=== PATIENT | female | born 1960 | race Caucasian/White ===

== ENCOUNTER 2021-06-01 17:07 | Emergency (ER) | payer OTHER ==
--- OUTSIDE RECORDS SUMMARY | 2021-06-01 17:16 | XMS REPORT | Continuity of Care Document ---
:1960 Author Organization [facility] t Address [address] [place] [address] Care Team Providers Name Role Phone JERRI ELKINS Primary Care Physician Unavailable JOSEPH Attending Clinician Unavailable PING Attending Clinician Unavailable Devendra VIERA Attending Clinician Unavailable MAMI Attending Clinician Unavailable Singer DAVIDSON Attending Clinician John AMIN Attending Clinician Mami AMIN Attending Clinician Marita AMIN, Mookie Attending Clinician Joseph AMIN Attending Clinician Francesca AMIN Attending Clinician Mick Bai MD Attending Clinician Doctor Unassigned, Name Attending Clinician Unavailable MARI Attending Clinician Unavailable Mari AMIN Attending Clinician Only, Test Attending Clinician Unavailable Ping AMIN Attending Clinician QING WAITE Attending Clinician Unavailable MAMI Admitting Clinician Unavailable Mami AMIN Admitting Clinician JOSEPH Admitting Clinician Unavailable Joseph AMIN Admitting Clinician MARI Admitting Clinician Unavailable Mari AMIN Admitting Clinician CHOI Admitting Clinician Unavailable Payers Payer Name Policy Type Policy Number Effective Date Expiration Date S erick [facility] [id number] 2019 HMO 00:00:00 [place]ICAID OF [place] [id number] 2017 00:00:00 Problems Condition Condition Condition Status Onset Resolution Last Treating Co mments Source Name Details Category Date Date Treatment Clinician Date Frequent Frequent Disease Active Unive rs falls falls 4-07 ity of 00:00: [place] 00 Medical Branch Attention Attention Disease Active Uni vers to to 3-16 ity of colostomy colostomy [place] Colostomy Colostomy Disease Active Uni vers status status 3-16 ity of 00:00: [place] 00 Medical Branch Stercoral Stercoral Disease Active Overview: Univers ulcer of ulcer of 04-07 Formattin ity of large large 00:00: g of this [place] intestine intestine 00 note Medi landry might be Branch different from the original. Added automatic ally from request for surgery [id number] Colostomy Colostomy Disease Active Overview: Univers in place in place 2 Formattin ity of 00:00: g of this note Medical might be Branch different from the original. Added automatic ally from request for surgery [id number] GIB GIB Disease Active Univers (gastroint (gastroint 02-15 it y of estinal estinal 00:00: [place] bleeding) bleeding) 00 Medi landry Branch Melena Melena Disease Active Overview: Univer s 02-14 Formattin ity of 00:00: g of this 00 note Medical might be Branch different from the original. Added automatic ally from request for surgery [id number] Parastomal Parastomal Disease Active 2020-02 U nivers hernia hernia 0-19 ity of without without 00:00: [place] obstructio obstructio 00 Me dical n or n or Branch gangrene gangrene Syncope Syncope Disease Active Univers and and 09-15 ity of collapse collapse 00:00: 00 Medical Branch Dyslipidem Dyslipidem Disease Active U nivers ia ia 09-15 ity of 00:00: [place] 00 Medical Branch Sinus Sinus Disease Active Univers pause pause 09-15 ity of status status 00:00: [place] post PPM post PPM 00 Medica l Branch Hypokalemi Hypokalemi Disease Active U nivers a a 8-09 ity of 00:00: [place] 00 Medical Branch Noncomplia Noncomplia Disease Active U scot nce with nce with 4-12 ity of treatment treatment 00:00[place] regimen regimen 00 [place] Acute Acute Disease Active Univers blood loss blood loss 4-07 it y of anemia anemia 00:00: [place] [facility] Perforatio Perforatio Disease Active U scot n of n of 4-06 ity of sigmoid sigmoid 00:00: [place] colon s/p colon s/p 00 Medi landry Corby's Corby's Br anch on on 05/13/2020 05/13/2020 Therapeuti Therapeuti Disease Active U scot c c 4-06 ity of opioid-ind opioid-ind 00:00[place] uced uced 00 Medical constipati constipati Br anch on (OIC) on (OIC) Chronic, Chronic, Disease Active Overview: Un berta continuous continuous 4-06 Formattin ity of use of use of 00:00: g of this [place] opioids opioids 00 note Medical might be Branch different from the original. 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 2-10 ity of 00:00: [place] [facility] History of History of Disease Active U scot systemic systemic 2-10 ity of lupus lupus 00:00: [place] erythemato erythemato 00 Me dical liliya (SLE) liliya (SLE) Bran ch History of History of Disease Active 2018-02 U scot seizure seizure 2-05 ity of 00:00: [place] [facility] Mixed Mixed Disease Active Univers hyperlipid hyperlipid 9-20 it y of emia emia 00:00: [place] [facility] Prediabete Prediabete Disease Active U anahiers s s 4-10 ity of 00:00: [place] [facility] Kidney Kidney Disease Active Overview: Univer s lesion, lesion, 3-25 Formattin ity o f [place] 00:00: g of this [place] right right 00 note Medical might be Branch different from the original. likely angiolipo ma per Radiology Hyperthyro Hyperthyro Disease Active 2017-02 U nivers idism idism 2-19 ity of 00:00: [place] 00 Medical Branch Obesity Obesity Disease Active 2017-02 Univers (BMI (BMI 2-17 ity of 30-39.9) 30-39.9) 00:00: [place] [facility] Vitamin D Vitamin D Disease Active Uni vers deficiency deficiency 10-27 it y of 00:00: [place] [facility] Chronic Chronic Disease Active Univers insomnia insomnia 10-16 ity of 00:00: Medical Branch Chronic Chronic Disease Active Univers migraine migraine 10-16 ity of without without 00:00: [place] aura aura 00 Medical without without Branch status status migrainosu migrainosu s, not s, not intractabl intractabl e e Neuropathy Neuropathy Disease Active U nivers 10-16 ity of 00:00: [place] [facility] Pacemaker Pacemaker Disease Active Uni vers 10-16 ity of 00:00: [place] 00 Medical Branch Essential Essential Disease Active Uni vers hypertensi hypertensi 10-16 it y of on on 00:00: Medical Branch History of History of Disease Active U nivers hepatitis hepatitis 10-16 ity of C C 00:00: [place] 00 Medical Branch PUD PUD Disease Active Univers (peptic (peptic 10-16 ity of ulcer ulcer 00:00: [place] disease) disease) 00 Medica l Branch Gastroesop Gastroesop Disease Active U nivers hageal hageal 10-16 ity of reflux reflux 00:00: [place] disease, disease, 00 Medica l esophagiti esophagiti Br anch s presence s presence not not specified specified History of History of Disease Active U anahiers urinary urinary 10-16 ity of tract tract 00:00: [place] surgery surgery 00 Medical Branch Fibromyalg Fibromyalg Disease Active U anahiers ia ia 10-16 ity of 00:00: [place] 00 Medical Branch Parasomnia Parasomnia Disease Active U nivers 10-16 ity of 00:00: [place] 00 Medical Branch Anxiety Anxiety Disease Active Overview: Univ ers 1-14 Formattin ity of 00:00: g of this note Medical might be Branch different from the original. Formattin g of this note might be different from the original. H/o cx pain Vitamin Vitamin Disease Active Univers B12 B12 -14 ity of deficiency deficiency 00:00: [place] [facility] [place] IBS IBS Disease Active 2007-02 Univers (irritable (irritable 2-04 it y of bowel bowel 00:00: [place] syndrome) syndrome) 00 [facility] Branch Visceral Visceral Disease Active 2007-02 Unive rs hyperalges hyperalges 2-04 it y of ia ia 00:00: [place] [facility] Branch Allergic Allergic Disease Active Unive rs rhinitis rhinitis ity of [facility] Cyst of Cyst of Disease Active Univers left left ity of kidney kidney [facility] Allergies, Adverse Reactions, Alerts Allergy Allergy Status Severity Reaction(s) Onset Inactive Treating Comm ents Source Name Type Date Date Clinician GABAPENT DRUG Active Palpitations Un berta IN INGREDI 3-16 ity of 00:00: [place] [facility] Gabapent Drug Active Palpitations Un berta in Allergy 3-16 ity of 00:00: [place] 00 Medical Branch LOSARTAN DRUG Active COUGH 2020-0 Univers INGREDI 07-03 ity of 00:00: [place] 00 Medical Branch Losartan Propensi Active Cough 2020-0 Univer s ty to 5 ity of adverse 00:00: [place] reaction 00 Medical s Branch LISINOPR DRUG Active COUGH 2018- Univers IL INGREDI 10-16 ity of 00:00: [place] [facility] Lisinopr Propensi Active Cough 2019-0 Univer s il ty to 10-16 ity of adverse 00:00: [place] reaction 00 Medical s Branch ADHESIVE Drug Active Other-Cmnt Univ ers Class 8-22 ity of 00:00: [place] 00 Medical Branch BACLOFEN DRUG Active Hallucinates Un berta INGREDI 8- ity of 00:00: [place] 00 Medical Branch CIPROFLO DRUG Active Hives 2017- Univers XACIN INGREDI 8-22 ity of 00:00: [place] 00 Medical Branch IODINE Drug Active Hives Univers AND Class 8-22 ity of IODIDE 00:00: [place] CONTAINI 00 Medical Branch PRODUCTS DULOXETI DRUG Active Other-Cmnt 2018-0 Univ ers NE INGREDI 09-28 ity of 00:00: [place] 00 Medical Branch DIVALPRO DRUG Active Hives 2018-0 Univers EX INGREDI 09-28 ity of SODIUM 00:00: [place] 00 Medical Branch GABAPENT DRUG Active Unknown-Cmnt 0 Un berta IN INGREDI 09-28 ity of ENACARBI 00:00: [place] L 00 Medical Branch NITROFUR DRUG Active Hives 2018-0 Univers ANTOIN 09-28 ity of MONOHYD/ 00:00: [place] M-CRYST 00 Medical Branch ISOMETH- DRUG Active Hives 2017-0 Univers DICHLORA 09-28 ity of L-ACETAM 00:00: [place] INOPHN 00 Medical Branch MORPHINE DRUG Active Hives 2017-0 Univers SULFATE INGREDI 09-28 ity of 00:00: [place] 00 Medical Branch METHOCAR DRUG Active Diarrhea 2018-0 Univer s BAMOL INGREDI 09-28 ity of 00:00: [place] 00 Medical Branch SEPTRA DRUG Active Hives 2017-0 Univers I.V. 09-28 ity of 00:00: [place] 00 Medical Branch DIATRIZO DRUG Active Hives 2018-0 Univers ATE AND 09-28 ity of IODIPAMI 00:00: [place] DE AMBER 00 Medical Branch TOPIRAMA DRUG Active Other-Cmnt 2017-0 Univ ers TE INGREDI 09-28 ity of 00:00: [place] 00 Medical Branch KETOROLA DRUG Active Hives 2018-0 Univers C INGREDI 09-28 ity of TROMETHA 00:00: [place] MINE 00 Medical Branch TRAMADOL DRUG Active Other-Cmnt 2018-0 Univ ers INGREDI 09-28 ity of 00:00: [place] 00 Medical Branch Adhesive Propensi Active Other - See 2018-0 redness Univers ty to comments 09-28 ity of adverse 00:00: [place] reaction 00 Medical s Branch Baclofen Propensi Active Hallucinatio 2018-0 Univers ty to ns 09-28 ity of adverse 00:00: [place] reaction 00 Medical s Branch Ciproflo Propensi Active Hives 2018-0 Univer s xacin ty to 09-28 ity of adverse 00:00: [place] reaction 00 Medical s Branch Iodine Propensi Active Hives 2018-0 Univers And ty to 09-28 ity of Iodide adverse 00:00: [place] Containi reaction 00 Medica l ng s Branch Products Duloxeti Propensi Active Other - See Transami n Univers ne ty to comments 8 itis ity of adverse 00:00: [place] reaction 00 Medical s Branch Divalpro Propensi Active Hives 2018 Univer s ex ty to 8 ity of Sodium adverse 00:00: [place] reaction 00 Medical s Branch Gabapent Propensi Active Unknown - Uni vers in ty to See comments 8 ity of Enacarbi adverse 00:00: [place] l reaction 00 Medical s Branch Nitrofur Propensi Active Hives Univer s antoin ty to 8 ity of Monohyd/ adverse 00:00: [place] M-Cryst reaction 00 Medical s Branch Isometh- Propensi Active Shortness of Univers Dichlora ty to Breath 8 ity of l-Acetam adverse 00:00: [place] inophn reaction 00 Medical s Branch Morphine Propensi Active Hives Univer s Sulfate ty to 8 ity of adverse 00:00: [place] reaction 00 Medical s Branch Methocar Propensi Active Diarrhea Univ ers bamol ty to 8 ity of adverse 00:00: [place] reaction 00 Medical s Branch Septra Propensi Active Shortness of Un berta I.V. ty to Breath 8 ity of adverse 00:00: [place] reaction 00 Medical s Branch Diatrizo Propensi Active Hives Univer s ate And ty to 8 ity of Iodipami adverse 00:00: [place] de Amber reaction 00 Medical s Branch Topirama Propensi Active Other - See Tingling , Univers te ty to comments 09-28 overwhelm ity o f adverse 00:00: ing [place] reaction 00 feeliing Medica l s Branch Ketorola Propensi Active Other - See Restless Univers c ty to comments 8 legs ity of Trometha adverse 00:00: [place] mine reaction 00 Medical s Branch Tramadol Propensi Active Other - See shaky U nivers ty to comments 8 legs ity of adverse 00:00: [place] reaction 00 Medical s Branch Social History Social Habit Start Date Stop Date Quantity Comments Source History [facility] University o f Alcohol Frequency [place] M edical Branch History SDAR University o f Alcohol Std [place] Medical Drinks Branch History SDAR University o f Alcohol Binge [place] Medic al Branch Exposure to Not sure University of SARS-CoV-2 [facility] (event) Branch Alcohol intake 2021-05-14 2021-05-14 Current drinker Unive rsity of 00:00:00 00:00:00 of alcohol [facility] (finding) Branch Education 2020-01-11 2020-01-11 16 University of 00:00:00 00:00:00 [facility] Alcohol Comment 2018-10-10 2018-10-10 Rare occasions Unive rsity of 00:00:00 00:00:00 [facility] Tobacco use and 2017-09-28 2017-09-28 Never used Universit y of exposure 00:00:00 00:00:00 [facility] [birth year] At [birth year] Universit y of 00:00:00 00:00:00 [facility] Smoking Status Start Date Stop Date Source Never smoker [facility] Medications Ordered Filled Start Stop Current Ordering Indication Dosage Frequency Signature Comments Components Source Medication Medication Date Date Medication? Clinician (SIG) Name Name cetirizine Yes 10mg Take 10 mg U nivers 10 mg 4-12 by mouth ity of tablet 15:55: daily. [address] propranoloL Yes 40mg Take 40 mg Univers 40 mg 4-12 by mouth 3 ity of tablet 15:55: (three) [place] [id number] times Medical daily. Branch pyridoxine, Yes 25mg Take 25 mg Univers VITAMIN 4-12 by mouth ity of B-6, 25 mg 15:55: daily. [address] cetirizine Yes 10mg Take 10 mg U nivers 10 mg 4-12 by mouth ity of tablet 15:55: daily. [address] propranoloL Yes 40mg Take 40 mg Univers 40 mg 4-12 by mouth 3 ity of tablet 15:55: (three) [place] [id number] times Medical daily. Branch pyridoxine, Yes 25mg Take 25 mg Univers VITAMIN 4-12 by mouth ity of B-6, 25 mg 15:55: daily. [address] BIOTIN ORAL 2021- No 1{tbl} Take 1 U nivers 05-19 tablet by ity of 14:31: 00:00 mouth [place] 09 :00 daily. Medical Branch triamcinolo 2021- No Use in Un berta ne 05-19 each ity of acetonide 14:31: 00:00 nostril. Mehdi as (NASACORT 09 :00 Medical AQ NASAL) Branch triamterene 2021- No 1{capsu Take 1 Univers -hydrochlor 05-19 le} capsule by i ty of othiazide 14:31: 00:00 mouth [place] 37.5-25 mg 09 :00 every Medical per capsule morning. Bran ch cyanocobala 2021- No Inject as Univers min, 05-19 directed ity of vitamin 14:31: 00:00 weekly. [place] B-12, 1,000 09 :00 Medical mcg/mL Branch injection amitriptyli 2021- No 25mg Take 25 mg Univers ne 25 mg 05-19 by mouth ity of tablet 14:31: 00:00 at [place] 09 :00 bedtime. Medical Takes Branch total of 125mg aspirin 81 2021- No 81mg Take 81 mg Univers mg chewable 05-19 by mouth ity of tablet 14:31: 00:00 daily. [place] 09 :00 Medical Branch ferrous 2021- Yes [id number] 325mg Take 1 U nivers sulfate 325 05-19 tablet by it y of mg (65 mg 00:00: 04:59 mouth 2 [place] iron) 00 :00 (two) Medical tablet times Branch daily for 30 days. ferrous 2021- Yes [id number] 325mg Take 1 U nivers sulfate 325 05-19 tablet by it y of mg (65 mg 00:00: 04:59 mouth 2 [place] iron) 00 :00 (two) Medical tablet times Branch daily for 30 days. ferrous Yes 325mg 325 mg, Univer s sulfate 05-18 Oral, TID ity of tablet 325 22:00: MEALS, [place] mg 00 First dose Medical on Mon Branch 05/18/21 at 1700, Until Discontinu ed, Routine iron 2022-0 2022- No 300mg 300 mg, IV Unive rs sucrose 4-10 04-11 Infusion, ity of (VENOFER) 00:30: 13:40 DAILY, [place] 300 mg in 00 :30 Administer Medi landry NaCl 0.9% over 1.5 Branch (NS) 250 mL Hours, infusion First dose on 05/16/21 at 1930 HYDROcodone 2021-0 Yes 1{tbl} 1 tablet, Univers -acetaminop 4-09 Oral, ity of hen (NORCO 15:38: Q6HPRN, [place] 5) 5-325 mg 10 Starting Medi landry tablet 1 on Sat Branch tablet 05/16/21 at 1038, Until Discontinu ed, Routine, Pain (scale 7-10) amitriptyli 2021-0 Yes 100mg 100 mg, Un berta ne (ELAVIL) 4-09 Oral, QHS, it y of tablet 100 02:00: First dose [place] mg 00 on Fri Medical 05/15/21 at Branch 2100, Until Discontinu ed, Routine enoxaparin 0 Yes 40mg 40 mg, Unive rs (LOVENOX) 4- Subcutaneo ity of injection 22:00: [place], DAILY, [place] 40 mg 00 First dose Medical on Tue Branch 05/15/21 at 1700, Until Discontinu ed, Routine acetaminoph 2021-0 Yes 1{tbl} 1 tablet, Univers en-codeine 4-08 Oral, ity of (TYLENOL 17:49: Q6HPRN, [place] #3) 300-30 51 Starting Medic al mg tablet 1 on Tue Branch tablet 05/15/21 at 1249, Until Discontinu ed, Routine, Pain (scale 4-6) pyridoxine 2021-0 Yes 25mg 25 mg, Unive rs (vitamin 4-08 Oral, ity of B6) 14:00: DAILY, [place] (VITAMIN 00 First dose Medic al B6) tablet on Tue Branch 25 mg 05/15/21 at 0900, Until Discontinu ed, Routine omeprazole 2021-0 Yes 20mg 20 mg, Unive rs (PRILOSEC) 4-08 Oral, ity of capsule 20 14:00: DAILY, [place] mg 00 First dose Medical on Fri Branch 05/15/21 at 0900, Until Discontinu ed clopidogreL Yes 75mg 75 mg, Univ ers (PLAVIX) 75 08 Oral, ity of mg tablet 14:00: DAILY, [place] 75 mg 00 First dose Medical on Tue Branch 05/15/21 at 0900, Until Discontinu ed, Routine cetirizine Yes 10mg 10 mg, Unive rs (ZYRTEC) 05-15 Oral, ity of tablet 10 14:00: DAILY, [place] mg 00 First dose Medical on Tue Branch 05/15/21 at 0900, Until Discontinu ed, Routine triamterene 2021- No 1{tbl} 1 tablet, Univers -hydrochlor 05-15 Oral, ity of othiazid 14:00: 13:40 DAILY, [place] (MAXZIDE-25 00 :38 First dose Me dical ) 37.5-25 on Tue Branch mg tablet 1 05/15/21 at tablet 0900, Until Discontinu ed levETIRAcet Yes 1000mg 1,000 mg, Univers am (KEPPRA) 05-15 Oral, BID, it y of tablet 13:00: First dose [place] 1,000 mg 00 on Tue Medical 05/15/21 at Branch 0800, Until Discontinu ed, Routine hydrOXYchlo Yes 200mg 200 mg, Un berta roQUINE 05-15 Oral, BID, ity of (PLAQUENIL) 13:00: First dose [place] tablet 200 00 on Tue Medical mg 05/15/21 at Branch 0800, Until Discontinu ed, Routine
Indicatio n: Rheumatic disorder hydralAZINE Yes 10mg 10 mg, Univ ers (APRESOLINE 05-15 Slow IV ity o f ) injection 11:06: Push, [place] 10 mg 41 Q4HPRN, Medical Starting Branch on Tue05/15/21 at 0606, Until Discontinu ed, Routine, DBP=>10 0; SBP=>160, DBP=>100; SBP=>180<b r>Indicati on: Hypertensi ve Emergency cefTRIAXone 2021- No 1000mg 1,000 mg, Univers (ROCEPHIN) 05-15-11 IV ity of 1,000 mg in 07:15: 21:08 Piggyback, [place] NaCl 0.9% 00 :07 Q24H ABX, Medic al (NS) 50 mL First dose Bra nch MINI-BAG on Tue05/15/21 at 0215, Until Discontinu ed, Administer over 30 Minutes, 50 mL
Reas on for Anti-Infec tive: Empiric Therapy for Suspected Infection< br>Empiric Therapy Site: Urine
D uration of therapy: 7 days propranoloL 0 Yes 40mg 40 mg, Univ ers (INDERAL) 4-08 Oral, TID, ity of tablet 40 05:15: First dose [place] mg 00 on Tue Medical 05/15/21 at Branch 0015, Until Discontinu ed, Routine ondansetron Yes 4mg 4 mg, Slow Univers (ZOFRAN 4-08 IV Push, ity of (PF)) 05:04: Q6HPRN, [place] injection 4 43 Starting Medi landry mg on Tue [place] 05/15/21 at 0004, Until Discontinu ed, Routine, Nausea and Vomiting (N/V) Cyanocobala 2021-0 2021- No Place Univ ers min-Cobamam 4-07 04-07 under the it y of edna (B12) 23:53: 00:00 tongue. [place] 5,000-100 06 :00 Medical mcg Lozg [place] LEVETIRACET 0 Yes TAKE 2 Univ ers AM 500 mg 4-04 TABLETS BY ity of tablet 00:00: MOUTH [place] 00 TWICE Medical DAILY [place] LEVETIRACET 2021-0 Yes TAKE 2 Univ ers AM 500 mg 4-04 TABLETS BY ity of tablet 00:00: MOUTH [place] 00 TWICE Medical DAILY Branch LEVETIRACET 2021-0 Yes TAKE 2 Univ ers AM 500 mg 4-04 TABLETS BY ity of tablet 00:00: MOUTH [place] 00 TWICE Medical DAILY Branch cyanocobala 2021-0 Yes Inject as Univers min, 3-26 directed ity of vitamin 05:49: weekly. [place] B-12, 1,000 01 Medical mcg/mL Branch injection cyanocobala 2021-0 Yes Inject as Univers min, 3-26 directed ity of vitamin 05:49: weekly. [place] B-12, 1,000 01 Medical mcg/mL Branch injection cyanocobala 2021-0 Yes Inject as Univers min, 3-26 directed ity of vitamin 05:49: weekly. [place] B-12, 1,000 01 Medical mcg/mL Branch injection cetirizine Yes 10mg Take 10 mg U nivers 10 mg 3-24 by mouth ity of tablet 17:50: daily. [place] 35 Medical Branch BIOTIN ORAL Yes 1{tbl} Take 1 Un berta 3-24 tablet by ity of 17:50: mouth [place] 35 daily. Medical Branch triamcinolo Yes Use in Uni vers ne 3-24 each ity of acetonide 17:50: nostril. [place] (NASACORT 35 Medical AQ NASAL) Branch Cyanocobala Yes Place Unive rs min-Cobamam 3-24 under the ity of edna (B12) 17:50: tongue. [place] 5,000-100 35 Medical mcg Lozg Branch triamterene Yes 1{capsu Take 1 U nivers -hydrochlor 3-24 le} capsule by it y of othiazide 17:50: mouth [place] 37.5-25 mg 35 every Medical per capsule morning. Bran ch cyanocobala Yes Inject as Univers min, 3-24 directed ity of vitamin 17:50: weekly. [place] B-12, 1,000 35 Medical mcg/mL Branch injection cetirizine Yes 10mg Take 10 mg U nivers 10 mg 3-24 by mouth ity of tablet 17:50: daily. [place] [address] Medical Branch BIOTIN ORAL Yes 1{tbl} Take 1 Un berta 3-24 tablet by ity of 17:50: mouth [place] 35 daily. Medical Branch triamcinolo Yes Use in Uni vers ne 3-24 each ity of acetonide 17:50: nostril. [place] (NASACORT 35 Medical AQ NASAL) Branch Cyanocobala Yes Place Unive rs min-Cobamam 3-24 under the ity of edna (B12) 17:50: tongue. [place] 5,000-100 35 Medical mcg Lozg Branch triamterene Yes 1{capsu Take 1 U nivers -hydrochlor 3-24 le} capsule by it y of othiazide 17:50: mouth [place] 37.5-25 mg 35 every Medical per capsule morning. Bran ch cetirizine Yes 10mg Take 10 mg U nivers 10 mg 3-24 by mouth ity of tablet 17:50: daily. [place] [address] Medical Branch BIOTIN ORAL Yes 1{tbl} Take 1 Un berta 3-24 tablet by ity of 17:50: mouth [place] 35 daily. Medical Branch triamcinolo Yes Use in Uni vers ne 3-24 each ity of acetonide 17:50: nostril. [place] (NASACORT 35 Medical AQ NASAL) Branch Cyanocobala Yes Place Unive rs min-Cobamam 3-24 under the ity of edna (B12) 17:50: tongue. [place] 5,000-100 35 Medical mcg Lozg Branch triamterene Yes 1{capsu Take 1 U nivers -hydrochlor 3-24 le} capsule by it y of othiazide 17:50: mouth [place] 37.5-25 mg 35 every Medical per capsule morning. Bran ch cetirizine Yes 10mg Take 10 mg U nivers 10 mg 3-24 by mouth ity of tablet 17:50: daily. [place] [address] Medical Branch BIOTIN ORAL Yes 1{tbl} Take 1 Un berta 3-24 tablet by ity of 17:50: mouth [place] 35 daily. Medical Branch triamcinolo Yes Use in Uni vers ne 3-24 each ity of acetonide 17:50: nostril. [place] (NASACORT 35 Medical AQ NASAL) Branch Cyanocobala Yes Place Unive rs min-Cobamam 3-24 under the ity of edna (B12) 17:50: tongue. [place] 5,000-100 35 Medical mcg Lozg Branch triamterene Yes 1{capsu Take 1 U nivers -hydrochlor 3-24 le} capsule by it y of othiazide 17:50: mouth [place] 37.5-25 mg 35 every Medical per capsule morning. Bran ch HYDROcodone 2021- No 1{tbl} Take 1 U nivers -acetaminop 3-23 03-23 tablet by it y of hen 10-325 11:26: 00:00 mouth [place] mg tablet 49 :00 every 6 Medical (six) Branch hours as needed (Can take 1 or 2 per doctor's instructio ns). polyethylen 2021- No 17g Take 17 g Univers e glycol 04-29 by mouth ity of 3350 17 11:05: 00:00 daily. [place] gram/dose 17 :00 Medical powder Branch oxyCODONE Yes 10mg 10 mg, Univer s CR 04-29 Oral, ity of (oxyCONTIN 01:00: Q12H, [place] CR) 12 hr 00 First dose Medi landry tablet 10 on Tue Branch mg 04/28/21 at 1999, Until Discontinu ed, Routine
receiving team member approving Restricted medication : LUDMILA TAVARES propranoloL 2021- Yes [id number] 40mg Take 1 Univers 40 mg 04-29-07 tablet by ity of tablet 00:00: 04:59 mouth 2 [place] 00 :00 (two) Medical times Branch daily for 14 days. propranoloL 2021- Yes [id number] 40mg Take 1 Univers 40 mg 04-29-07 tablet by ity of tablet 00:00: 04:59 mouth 2 [place] 00 :00 (two) Medical times Branch daily for 14 days. propranoloL 2021- Yes [id number] 40mg Take 1 Univers 40 mg 3- 04-07 tablet by ity of tablet 00:00: 04:59 mouth 2 [place] 00 :00 (two) Medical times Branch daily for 14 days. propranoloL 2021- Yes [id number] 40mg Take 1 [facility] 40 mg -30 05-07 tablet by ity of tablet 00:00: 04:59 mouth 2 [place] 00 :00 (two) Medical times Branch daily for 14 days. acetaminoph 2021- Yes [id number] 1000mg Take 2 [facility] en 500 mg 04-29 tablets by ity of tablet 00:00: 04:59 mouth [place] 00 :00 every 8 Medical (eight) Branch hours for 7 days. nystatin 2021- Yes [id number] Apply to Univers 100,000 04-29 area(s) 2 ity of unit/gram 00:00: 04:59 (two) [place] cream 00 :00 times Medical daily for Branch 7 days. oxyCODONE 2021- Yes [id number] 10mg Take 1 Unive rs CR 10 mg 12 04-29 tablet by it y of hr tablet 00:00: 04:59 mouth [place] 00 :00 every 12 Medical (twelve) Branch hours for 7 days. Indication s: acute pain oxyCODONE 2021- Yes 4647 10mg Take 1 Unive rs 10 mg Tab 04-29 tablet by ity of 00:00: 04:59 mouth [place] 00 :00 every 6 Medical (six) Branch hours for 7 days. Indication s: acute pain acetaminoph 2021- Yes [id number] 1000mg Take 2 [facility] en 500 mg 04-29 tablets by ity of tablet 00:00: 04:59 mouth [place] 00 :00 every 8 Medical (eight) Branch hours for 7 days. nystatin 2021- Yes [id number] Apply to [facility] 100,000 04-29 area(s) 2 ity of unit/gram 00:00: 04:59 (two) [place] cream 00 :00 times Medical daily for Branch 7 days. oxyCODONE 2021- Yes [id number] 10mg Take 1 Unive rs CR 10 mg 12 04-29 tablet by it y of hr tablet 00:00: 04:59 mouth [place] 00 :00 every 12 Medical (twelve) Branch hours for 7 days. Indication s: acute pain oxyCODONE 2021- Yes 4647 10mg Take 1 Unive rs 10 mg Tab 04-29 tablet by ity of 00:00: 04:59 mouth [place] 00 :00 every 6 Medical (six) Branch hours for 7 days. Indication s: acute pain propranoloL 2021- No [id number] 40mg Take 1 [facility] 40 mg 04-29 tablet by ity of tablet 00:00: 00:00 mouth 2 [place] 00 :00 (two) Medical times Branch daily for 7 days. oxyCODONE Yes 10mg 10 mg, Univer s immediate 04-28 Oral, Q6H, ity of release 23:00: [place] dose [place] tablet 10 00 (after Medical mg last Branch modificati on) on Tue04/28/21 at 1800, Until Discontinu ed, Routine
receiving team member approving Restricted medication : LUDMILA TAVARES KCL Yes 20meq 20 mEq, Univers (KLOR-CON 04-28 Oral, ity of M20) tablet 14:00: DAILY, [place] 20 mEq 00 First dose Medical (after Branch last modificati on) on Tue04/28/21 at 0900, Until Discontinu ed, Routine HYDROmorpho 2021- No .2mg 0.2 mg, Un berta ne 04-28 Slow IV ity of (DILAUDID) 00:09: 19:01 Push, [place] injection 26 :49 Q6HPRN, Medical 0.2 mg Starting Branch on Tue04/27/21 at 1909, Until Tue04/28/21 at 1401, Routine, Pain (scale 7-10)
U se approved by (Faculty): GENERAL SURGERY
General surgeon approving: ludmila tavares HYDROmorpho 2021- No .2mg 0.2 mg, Un berta ne 04-26 Slow IV ity of (DILAUDID) 20:57: 20:56 Push, [place] injection 25 :25 Q6HPRN, Medical 0.2 mg Starting Branch on Tue04/26/21 at 1557, Until Tue04/27/21 at 1556, Routine, Pain (scale 7-10)
U se approved by (Faculty): GENERAL SURGERY
General surgeon approving: ludmila tavares nystatin Yes Topical, Unive rs (MYCOSTATIN 3-20 BID, First it y of ) cream 01:00: dose on [place] 00 [facility] Medical 04/25/21 at Branch 2000, Until Discontinu ed, Routine acetaminoph Yes 1000mg 1,000 mg, Univers en 04-25 Oral, Q8H, ity of (TYLENOL) 19:00: First [place] tablet 00 on [facility] Medical 1,000 mg 04/25/21 at [facility] h 1400, Until Discontinu ed, Routine oxyCODONE 2021- No 15mg 15 mg, Unive rs immediate 04-25 Oral, Q6H, ity of release 17:00: 19:01 First dose Mehdi as tablet 15 00 :49 (after Medical mg last Branch modificati on) on 04/25/21 at 1200, Until Discontinu ed, Routine
receiving team member approving Restricted medication : LUDMILA TAVARES propranoloL Yes 40mg 40 mg, Univ ers (INDERAL) 04-25 Oral, BID, ity of tablet 40 14:15: First dose [place] mg 00 on [facility] Medical 04/25/21 at Branch 0915, Until Discontinu ed, Routine HYDROmorpho 2021- No .2mg 0.2 mg, Un berta ne 04-25 Slow IV ity of (DILAUDID) 14:06: 19:14 Push, [place] injection 58 :28 Q6HPRN, Medical 0.2 mg Starting Branch on 04/25/21 at 0906, Until 04/26/21 at 1414, Routine, Pain (scale 7-10)
U se approved by (Faculty): GENERAL SURGERY
General surgeon approving: ludmila tavares magnesium 202- No 2g 2 g, IV Univ ers sulfate in 04-25 Piggyback, it y of water 2 13:00: 14:25 Administer Mehdi as gram/50 mL 00 :00 over 60 Medica l (4 %) Minutes, Branch infusion 2 ONCE, 1 g dose, On [facility] 04/25/21 at 0800, Routine atorvastati Yes 80mg 80 mg, Univ ers n (LIPITOR) 04-25 Oral, QHS, it y of tablet 80 02:00: First dose [place] mg 00 on Fri Medical 04/24/21 at Branch 2100, Until Discontinu ed, Routine amitriptyli Yes 100mg 100 mg, Un berta ne (ELAVIL) 04-25 Oral, QHS, it y of tablet 100 02:00: First dose [place] mg 00 on Fri Medical 04/24/21 at Branch 2100, Until Discontinu ed, Routine levETIRAcet Yes 1000mg 1,000 mg, Univers am (KEPPRA) 04-25 Oral, BID, it y of tablet 01:00: First dose [place] 1,000 mg 00 on Tue Medical 04/24/21 at Branch 2000, Until Discontinu ed, Routine pantoprazol 0 Yes 40mg 40 mg, Univ ers e 19 Oral, BID, ity of (PROTONIX) 01:00: First dose [place] EC tablet 00 on Tue Medical 40 mg 04/24/21 at Branch 2000, Until Discontinu ed, Routine oxyCODONE 2021- No 10mg 10 mg, Unive rs immediate 04-24 Oral, Q6H, ity of release 23:00: 14:06 First dose Meh[place] as tablet 10 00 :28 (after Medical mg last Branch modificati on) on Tue04/24/21 at 1800, Until Discontinu ed, Routine
receiving team member approving Restricted medication : LUDMILA TAVARES lidocaine 0 Yes 3{patch 3 Patch, U nivers (LIDODERM) 04-24 } Topical, ity o f 5 % (700 19:30: Administer Mehdi as mg/patch) 00 over 12 Medical patch 3 Hours, [place] Patch DAILY, First dose on Tue04/24/21 at 1430, Until Discontinu ed, Routine tiZANidine 0 Yes 2mg 2 mg, Univer s (ZANAFLEX) 04-24 Oral, TID, ity of tablet 2 mg 19:30: First dose [place] 00 on Tue Medical 04/24/21 at Branch 1430, Until Discontinu ed, Routine cloNIDine 2021- No .1mg 0.1 mg, Univ ers (CATAPRES) 04-24 Oral, ity of tablet 0.1 19:30: 14:04 DAILY, [place] mg 00 :20 First dose Medical on Tue [place] 04/24/21 at 1430, Until Discontinu ed, Routine HYDROmorpho 2021- No .5mg 0.5 mg, Un berta ne 04-24 Slow IV ity of (DILAUDID) 19:15: 14:08 Push, [place] injection 28 :01 Q6HPRN, Medical 0.5 mg Starting Branch on Tue04/24/21 at 1415, Until 04/25/21 at 0908, Routine, Pain (scale 7-10)
U se approved by (Faculty): GENERAL SURGERY
General surgeon approving: ludmila tavares sucralfate Yes 1g 1 g, Oral, U nivers (CARAFATE) 04-24 AC+HS, ity of tablet 1 g 16:30: First dose [place] 00 on Fri Medical 04/24/21 at Branch 1130, Until Discontinu ed, Routine oxyCODONE 2021- No 10mg 10 mg, Unive rs immediate 04-24 Oral, ity of release 14:15: 19:12 Q4HPRN, [place] tablet 10 00 :02 Starting Medica l mg on Tue Branch 04/24/21 at 0915, Until Tue04/24/21 at 1412, Routine, Pain (scale 7-10)
F aculty member approving Restricted medication : LUDMILA TAVARES HYDROmorpho 2021- No IV Unive rs ne 10 mg/50 04-24 Infusion, it y of mL 0.9% 14:15: 19:10 50 mL, [place] NaCL 00 :56 CONTINUOUS Medical (DILAUDID) , Starting Bra nch [employer]ASHER on Tue04/24/21 at 0915, Until Tue04/24/21 at 1410 KCL 2021- No 40meq 40 mEq, Univers (KLOR-CON 04-24 Oral, ity of M20) tablet 14:00: 20:50 DAILY, Meh[place] as 40 mEq 00 :09 First dose Medical on Tue Branch 04/24/21 at 0900, Until Discontinu ed, Routine magnesium 2021- No 400mg 400 mg, Uni vers oxide 04-24 Oral, ity of (MAG-OX 14:00: 13:26 ONCE, 1 [place] 400) tablet 00 :00 dose, On Medi landry 400 mg Fri Branch 04/24/21 at 0900, Routine cyanocobala Yes Inject as Univers min, 04-24 directed ity of vitamin 10:12: weekly. [place] B-12, 1,000 00 Medical mcg/mL Branch injection cyanocobala Yes Inject as Univers min, 18 directed ity of vitamin 10:12: weekly. [place] B-12, 1,000 00 Medical mcg/mL Branch injection acetaminoph 2021- No 1000mg 1,000 mg, Univers en ADULT 04-24 IV ity of (OFIRMEV) 05:00: 22:32 Infusion, [place] injection 00 :00 Administer Medi landry 1,000 mg over 15 Branch Minutes, Q6H, 4 doses, First dose (after last reorder) on Tue04/24/21 at 0000, Last dose on Tue04/24/21 at 1800, Routine
Indicatio n: Perioperat jules Patient KCL 2021- No 40meq 40 mEq, Univers (KLOR-CON 04-24 Oral, ity of M20) tablet 04:15: 04:01 ONCE, 1 [place] 40 mEq 00 :00 dose, On [facility] 04/23/21 at 2315, SULAIMAN lactated Yes 1000mL at 50 Univer s ringers IV 3-17 mL/hr, ity of infusion 15:00: 1,000 mL, [place] 1,000 mL 00 IV Medical Infusion, Branch CONTINUOUS , Starting on Tue04/23/21 at 1000, Until Discontinu ed, Routine lactated 0 2021- No 1000mL at 50 Unive rs ringers IV 04-23 mL/hr, ity of infusion 15:00: 14:07 1,000 mL, Meh[place] as 1,000 mL 00 :27 IV Medical Infusion, Branch CONTINUOUS , Starting on Tue04/23/21 at 1000, Until Tue04/24/21 at 0907, Routine potassium 2021- No 30mmol 30 mmol, U nivers phosphate 04-23 IV ity of 30 mmol in 14:45: 17:43 Piggyback, [place] NaCl 0.9% 00 :00 ONCE, 1 Medical (NS) 250 mL dose, On [facility] piggyback [facility] 04/23/21 at 0945, 250 mL KCL 2021- No 40meq 40 mEq, Univers (KLOR-CON 04-23 Oral, ity of M20) tablet 14:45: 14:19 ONCE, 1 [place] 40 mEq 00 :00 dose, On [facility] 04/23/21 at 0945, SULAIMAN NaCl 0.9% 0 Yes 10mL 10 mL, Univer s (NS) 3-17 Slow IV ity of injection 14:03: Push, PRN, [place] 10 mL 01 Starting Medical on Kathy Branch 04/23/21 at 0903, Until Discontinu ed, Routine, line maintenanc e lidocaine 0 Yes 5mL 5 mL, Univers 1% (PF) 04-23 Subcutaneo ity of (XYLOCAINE) 14:03: us, PRN, [place] injection 5 01 Starting Medi landry mL on [facility] Branch 04/23/21 at 0903, Until Discontinu ed, Routine, Local anesthesia NaCl 0.9% 0 Yes 10mL 10 mL, Univer s (NS) 317 Slow IV ity of injection 14:03: Push, PRN, [place] 10 mL 01 Starting Medical on [facility] Branch 04/23/21 at 0903, Until Discontinu ed, Routine, line maintenanc e clopidogreL 0 Yes 75mg 75 mg, Univ ers (PLAVIX) 75 17 Oral, ity of mg tablet 14:00: DAILY, [place] 75 mg 00 First dose Medical on [facility] Branch 04/23/21 at 0900, Until Discontinu ed, Routine clopidogreL Yes 75mg 75 mg, Univ ers (PLAVIX) 75 17 Oral, ity of mg tablet 14:00: DAILY, [place] 75 mg 00 First dose Medical on [facility] Branch 04/23/21 at 0900, Until Discontinu ed, Routine HYDROmorpho 2021- Yes IV Unive rs ne 10 mg/50 04-23 Infusion, it y of mL 0.9% 14:00: 22:59 50 mL, [place] NaCL 00 :00 CONTINUOUS Medical (DILAUDID) , Starting Bra nch [employer]OTH WASHER on [place] 04/23/21 at 0900, Until Tue04/24/21 at 1759 HYDROmorpho 2021- No IV Unive rs ne 10 mg/50 04-23 Infusion, it y of mL 0.9% 14:00: 14:05 50 mL, [place] NaCL 00 :53 CONTINUOUS Medical (DILAUDID) , Starting Bra nch CLOTH WASHER on [place] 04/23/21 at 0900, Until Tue04/24/21 at 0905 magnesium 2021- No 2g 2 g, IV Univ ers sulfate in 04-23 Piggyback, it y of water 2 13:15: 17:04 Administer Mehdi as gram/50 mL 00 :00 over 60 Medica l (4 %) Minutes, Branch infusion 2 ONCE, 1 g dose, On Tue04/23/21 at 0815, Routine hydrOXYchlo Yes 200mg 200 mg, Un berta roQUINE 04-23 Oral, BID, ity of (PLAQUENIL) 13:00: First dose [place] tablet 200 00 on Kathy Medical mg 04/23/21 at Branch 0800, Until Discontinu ed, Routine
Indicatio n: Rheumatic disorder hydrOXYchlo Yes 200mg 200 mg, Un berta roQUINE 04-23 Oral, BID, ity of (PLAQUENIL) 13:00: First dose [place] tablet 200 00 on Kathy Medical mg 04/23/21 at Branch 0800, Until Discontinu ed, Routine
Indicatio n: Rheumatic disorder alvimopan 2021- Yes 12mg 12 mg, Unive rs (ENTEREG) 04-23 Oral, BID, ity of capsule 12 13:00: 00:59 11 doses, [place] mg 00 :00 First dose Medical (after Branch last modificati on) on Tue04/23/21 at 0800, Last dose on Tue04/28/21 at 0800, Routine, DSU Pre-op
Restricted use approved by: LUDMILA HARTLEY - SURGERY/GE NERAL alvimopan 2021- No 12mg 12 mg, Unive rs (ENTEREG) 04-23 Oral, BID, ity of capsule 12 13:00: 13:41 11 doses, [place] mg 00 :29 First dose Medical (after Branch last modificati on) on Tue04/23/21 at 0800, Last dose on Tue04/28/21 at 0800, Routine, DSU Pre-op
Restricted use approved by: LUDMILA HARTLEY - SURGERY/GE NERAL lidocaine 2021- No 5mL 5 mL, Univer s 1% (PF) 04-23 Infiltrati ity o f (XYLOCAINE) 08:30: 08:30 on, ONCE, [place] injection 5 00 :00 1 dose, On Me dical mL [place] Branch 04/23/21 at 0330, Routine lidocaine 0 2021- No 5mL 5 mL, Univer s 1% (PF) 04-23 Infiltrati ity o f (XYLOCAINE) 07:30: 06:25 on, ONCE, [place] injection 5 00 :00 1 dose, On Me dical mL [place] Branch 04/23/21 at 0230, Routine labetaloL Yes .5mg/mi 0.5-4 Univ ers (NORMODYNE) 3-17 n mg/min ity of 200 mg in 06:40: (15-120 [place] NaCl 0.9% 38 mL/hr), IV Medi landry (NS) 100 mL Infusion, Bra nch infusion TITRATE, SBP Goal < 180 mmHg, >120/80, Starting on [place] 04/23/21 at 0140
In itiate infusion at 0.5 mg/min.&nb sp; T itrate by 0.5 mg/min every 5 minutes to 15 minutes as needed to achieve and maintain goal blood pressure.& nbsp;&nbsp ;Maximum dose = 4 mg/min. If goal not maintained at maximum allowed dose, contact prescriber .
labetaloL 2021- No .5mg/mi 0.5-4 Uni vers (NORMODYNE) 04-23 03-18 n mg/min ity o f 200 mg in 06:40: 12:30 (15-120 [place] NaCl 0.9% 38 :59 mL/hr), IV Medi landry (NS) 100 mL Infusion, Bra nch infusion TITRATE, SBP Goal < 180 mmHg, >120/80, Starting on [place] 04/23/21 at 0140
In itiate infusion at 0.5 mg/min.&nb sp; T itrate by 0.5 mg/min every 5 minutes to 15 minutes as needed to achieve and maintain goal blood pressure.& nbsp;&nbsp ;Maximum dose = 4 mg/min. If goal not maintained at maximum allowed dose, contact prescriber .
fluticasone Yes 1{spray 1 [place], Univers propionate 3-17 } Nasal, ity of 50 06:00: DAILY, [place] mcg/actuati 00 First dose Me dical on nasal (after Branch spray 1 last [place] modificati on) on Tue04/23/21 at 0100, Until Discontinu ed fluticasone Yes 1{spray 1 [place], Univers propionate 3-17 } Nasal, ity of 50 06:00: DAILY, [place] mcg/actuati 00 First dose Me dical on nasal (after Branch spray 1 last [place] modificati on) on Tue04/23/21 at 0100, Until Discontinu ed labetaloL 2021- No 20mg 20 mg, Unive rs (NORMODYNE) 04-23 Slow IV ity of injection 05:30: 05:20 Push, [place] 20 mg 00 :00 ONCE, 1 Medical dose, On Branch Tue04/23/21 at 0030, Routine diltiazem 2021- No 10mg 10 mg, Unive rs (CARDIZEM 04-23 Slow IV ity of IV) 04:45: 03:56 Push, [place] injection 00 :00 ONCE, 1 Medical 10 mg dose, On Branch Tue04/22/21 at 2345, Routine
receiving team member approving Restricted medication : LACI MORAN hydralAZINE Yes 10mg 10 mg, Univ ers (APRESOLINE 3-17 Slow IV ity o f ) injection 04:24: Push, [place] 10 mg 54 Q4HPRN, Medical Starting Branch on Tue04/22/21 at 2324, Until Discontinu ed, Routine, DBP=>10 0; SBP=>180<b r>Indicati on: Hypertensi ve Emergency hydralAZINE Yes 10mg 10 mg, Univ ers (APRESOLINE 3-17 Slow IV ity o f ) injection 04:24: Push, [place] 10 mg 54 Q4HPRN, Medical Starting Branch on Tue04/22/21 at 2324, Until Discontinu ed, Routine, DBP=>10 0; SBP=>180<b r>Indicati on: Hypertensi ve Emergency albumin 2021- No 25g 25 g, IV Unive rs (ALBUTEIN 5 04-23 Infusion, it y of %) 5 % 03:15: 13:18 ONCE, 1 [place] injection 00 :00 dose, On Medica l 25 g Wed Branch 04/22/21 at 2215, 500 mL
Nicole cation: POST-OPERA TIVE VOLUME RESUSCITAT ION-CARDIA C SURGERY
Comments: May only be used if 3L or more of crystalloi d has been administer ed within a given 24 hour period without an adequate hemodynami c response. calcium 2021- No 2g 2 g, IV Univer s gluconate 2 04-23 Infusion, it y of g in NaCl 03:15: 13:18 ONCE, 1 [place] 100 mL 00 :00 dose, On Medical (ISO-OSM) Wed Branch RTU IV 04/22/21 at infusion 2 2215, g Routine potassium 2021- No 20meq 20 mEq, IV Univers chloride 20 04-23 Piggyback, i ty of mEq/100 mL 03:00: 07:00 Q2H, 2 [place] (KCL) 20 00 :00 doses, Medical mEq/100 mL First dose Bra [facility] RTU IVPB 20 on Tue mEq 04/22/21 at 2200, Last dose on [place] 04/23/21 at 0000, 100 mL magnesium 2021- No 4g 4 g, IV Univ ers sulfate in 04-23 Piggyback, it y of water 4 02:30: 16:02 ONCE, 1 [place] gram/50 mL 00 :00 dose, On Medic al (8 %) IV Wed Branch Piggyback 4 04/22/21 at g 2130, SULAIMAN levETIRAcet Yes 1000mg 1,000 mg, Univers am (KEPPRA) 04-23 IV ity of in NACL 01:30: [place]back, [place] (ISO-OS) 00 Q12H, Medical 1,000 First dose Branch mg/100 mL on Tue RTU 04/22/21 at 2030, Until Discontinu ed, Administer over 15 Minutes, 100 mL levETIRAcet 2021- No 1000mg 1,000 mg, Univers am (KEPPRA) 04-23 IV ity of in NACL 01:30: 14:07 Piggyback, Mehdi as (ISO-OS) 00 :43 Q12H, Medical 1,000 First dose Branch mg/100 mL on Wed RTU 04/22/21 at 2030, Until Discontinu ed, Administer over 15 Minutes, 100 mL oxyCODONE Yes 10mg 10 mg, Univer s immediate 04-23 Oral, ity of release 01:17: Q6HPRN, [place] tablet 10 28 Starting Medica l mg on Wed Branch 04/22/21 at 2017, Until Discontinu ed, Routine, Pain (scale 7-10)<b r>receiving team member approving Restricted medication : LUDMILA TAVARES oxyCODONE No 10mg 10 mg, Unive rs immediate 04-23 Oral, ity of release 01:17: 14:07 Q6HPRN, [place] tablet 10 28 :43 Starting Medica l mg on Wed Branch 04/22/21 at 2017, Until 04/24/21 at 0907, Routine, Pain (scale 7-10)
F aculty member approving Restricted medication : LUDMILA TAVARES metoprolol No 5mg 5 mg, Slow Univers (LOPRESSOR) 04-23 IV Push, ity of injection 5 01:15: 01:07 ONCE, 1 [place] mg 00 :00 dose, On Medical Wed Branch 04/22/21 at 2015, Routine diltiazem Yes 120mg 120 mg, Univ ers XR 3-17 Oral, BID, ity of (DILT-XR) 01:00: First dose [place] capsule 120 00 on Wed Medica l mg 04/22/21 at Branch 1999, Until Discontinu ed diltiazem 0 Yes 120mg 120 mg, Univ ers XR 3-17 Oral, BID, ity of (DILT-XR) 01:00: First dose [place] capsule 120 00 on Wed Medica l mg 04/22/21 at Branch 1999, Until Discontinu ed acetaminoph 2021- No 1000mg 1,000 mg, Univers en ADULT 04-22 IV ity of (OFIRMEV) 23:15: 22:59 Infusion, [place] injection 00 :00 Administer Medi landry 1,000 mg over 15 Branch Minutes, Q6H, 4 doses, First dose on Tue04/22/21 at 1815, Last dose on [place] 04/23/21 at 1200, Routine
Indicatio n: Perioperat jules Patient HYDROmorphO 2021- No 2mg 2 mg, Slow Univers ne 04-22 IV [place], ity of (DILAUDID) 23:02: 01:17 Q15MIN [place] injection 2 30 :53 PRN, 10 Medic al mg doses, Branch Starting on Tue04/22/21 at 1802, Until Tue04/22/21 at 2017, Routine, Pain (scale 7-10), PACU
Us e approved by (Faculty): PACU USE -ANESTHESI A SERVICE-HY DROMORPHON E INJECTIONS hydralAZINE 2021- No 5mg 5 mg, Slow Univers (APRESOLINE 04-22 IV Push, ity of ) injection 23:01: 04:20 Q15MIN Mehdi as 5 mg 46 :44 PRN, 6 Medical doses, Branch Starting on Tue04/22/21 at 1801, Until Tue04/22/21 at 2320, Routine, DBP=>100; SBP=>160, PACU
In dication: Hypertensi ve Emergency HYDROmorpho 2021- No IV Unive rs ne 10 mg/50 04-22 Infusion, it y of mL 0.9% 23:00: 13:50 50 mL, [place] NaCL 00 :25 CONTINUOUS Medical (DILAUDID) , Starting Bra nch CLOTH WASHER on Tue04/22/21 at 1800, Until [place] 04/23/21 at 0850 lactated 2021- No 1000mL at 75 Unive rs ringers IV 04-22 mL/hr, ity of infusion 22:00: 01:30 1,000 mL, Mehdi as 1,000 mL 00 :07 IV Medical Infusion, Branch CONTINUOUS , Starting on Tue04/22/21 at 1700, Until Tue04/22/21 at 2030, Routine dextrose Yes 250mL 250 mL, IV Un berta 10% (D10W) 3-16 Infusion, ity of bolus 21:58: PRN - SEE [place] infusion 48 INSTRUCTIO Medic al 250 mL NS, Blood Branch Glucose < or = 70 mg/dL and patient is unable to swallow or has mental status changes., Starting on Tue04/22/21 at 1658
De xtrose 10% 250 mL bag contains:& nbsp;10 gm = 100 mL 20 gm = 200 mL 25 gm = 250 mL (whole bag) The maximum rate at which dextrose can be infused without producing glycosuria is 0.5 g/kg/hour. &nbs p;If blood glucose is < or = 70 mg/dL and patient is unable to swallow or has mental status changes: &nbs p;IF IV access available: Dextrose 50%. 1. 25 mL (1/2 amp) of D50W IV Push.
2. Blood glucose - draw blood glucose 15 minutes after D50W Administra tion. 3. If blood glucose is < 80 mg/dL, repeat.&nb sp;&nb sp;BUD: If wrapper is open bag is good for 30 days at room temperatur e.
HYDROmorphO 0 Yes Slow IV Uni vers ne 3-16 Push, ity of (DILAUDID)2 21:51: Routine, [place] mg/mL Load 07 [facility] Branch dose glucagon Yes 1mg 1 mg, Univers (GLUCAGEN 3-16 Intravenou ity of DIAGNOSTIC 21:49: s, PRN - Mehdi as KIT) 59 SEE Medical injection 1 INSTRUCTIO Br anch mg NS, Starting on 04/22/21 at 1649, Until Discontinu ed, Routine, Blood sugar < 70 ondansetron 0 Yes 4mg 4 mg, Slow Univers (ZOFRAN 3-16 IV Push, ity of (PF)) 21:48: Q6HPRN, [place] injection 4 58 Starting Medi landry mg on Wed Branch 04/22/21 at 1648, Until Discontinu ed, Routine, Nausea and Vomiting (N/V) ondansetron 2021-0 Yes 4mg 4 mg, Slow Univers (ZOFRAN 3-16 IV Push, ity of (PF)) 21:48: Q6HPRN, [place] injection 4 58 Starting Medi landry mg on Tue Branch 04/22/21 at 1648, Until Discontinu ed, Routine, Nausea and Vomiting (N/V) naloxone 2021-0 Yes .1mg 0.1 mg, Univer s (NARCAN) 316 Slow IV ity of injection 21:47: Push, PRN Mehdi as 0.1 mg 03 - SEE Medical INSTRUCTIO Branch NS, Starting on Tue04/22/21 at 1647, Until Discontinu ed, Routine, Sedation/R espiratory Depression naloxone 2021-0 Yes .1mg 0.1 mg, Univer s (NARCAN) 316 Slow IV ity of injection 21:47: Push, PRN Mehdi as 0.1 mg 03 - SEE Medical INSTRUCTIO Branch NS, Starting on Tue04/22/21 at 1647, Until Discontinu ed, Routine, Sedation/R espiratory Depression sugammadex 2021-0 2021- No IV Push, Un berta (BRIDION) 04-2216 ONCE INTRA ity of injection 21:18: 21:36 PROCEDURE, [place] 00 :11 Starting Medical on Tue Branch 04/22/21 at 1618, Until Tue04/22/21 at 1636, Routine, Intra-op sugammadex 2021-0 2021- No IV Push, Un berta (BRIDION) 04-2216 ONCE INTRA ity of injection 21:18: 21:36 PROCEDURE, [place] 00 :11 Starting Medical on Tue Branch 04/22/21 at 1618, Until Tue04/22/21 at 1636, Routine, Intra-op ondansetron 2021-0 2021- No Slow IV Un berta (ZOFRAN 04-22 Push, ONCE ity o f (PF)) 20:41: 21:36 INTRA [place] injection 00 :11 PROCEDURE, Medi landry Starting Branch on Tue04/22/21 at 1541, Until Tue04/22/21 at 1636, Routine, Intra-op ondansetron 2021-0 2021- No Slow IV Un berta (ZOFRAN 04-22 Push, ONCE ity o f (PF)) 20:41: 21:36 INTRA [place] injection 00 :11 PROCEDURE, Medi landry Starting Branch on Tue04/22/21 at 1541, Until Tue04/22/21 at 1636, Routine, Intra-op cyanocobala Yes Inject as Univers min, 3-16 directed ity of vitamin 20:32: weekly. [place] B-12, 1,000 14 Medical mcg/mL Branch injection pantoprazol 2021- No 80mg 80 mg, Uni vers e 04-22 Slow IV ity of (PROTONIX) 20:15: 19:30 Push, [place] injection 00 :00 ONCE, 1 Medical 80 mg dose, On Branch Tue04/22/21 at 1515 pantoprazol 2021- No 80mg 80 mg, Uni vers e 04-22 Slow IV ity of (PROTONIX) 20:15: 19:30 Push, [place] injection 00 :00 ONCE, 1 Medical 80 mg dose, On Branch Tue04/22/21 at 1515 calcium 2021-2021- No Intravenou Uni vers chloride 04-22 s, ONCE ity of 100 mg/mL 20:04: 21:36 INTRA [place] (10 %) 00 :11 PROCEDURE, Medical syringe Starting Branch on Tue04/22/21 at 1504, Until Tue04/22/21 at 1636, Routine, Intra-op calcium 2021- No Intravenou Uni vers chloride 04-22 s, ONCE ity of 100 mg/mL 20:04: 21:36 INTRA [place] (10 %) 00 :11 PROCEDURE, Medical syringe Starting Branch on Tue04/22/21 at 1504, Until Tue04/22/21 at 1636, Routine, Intra-op albumin 2021- No IV Univers (ALBUTEIN 5 04-22 Infusion, it y of %) 5 % 20:02: 21:36 CONTINUOUS [place] injection 00 :11 PRN, Medical Starting Branch on Tue04/22/21 at 1502, Until Tue04/22/21 at 1636, Intra-op albumin 2021-2021- No IV [facility] (ALBUTEIN 5 04-22 Infusion, it y of %) 5 % 20:02: 21:36 [place] 00 :11 PRN, Medical Starting Branch on Tue04/22/21 at 1502, Until Tue04/22/21 at 1636, Intra-op pantoprazol Yes 8mg/h 8 mg/hr Un berta e 04-22 (50 ity of (PROTONIX) 20:00: mL/hr), IV [place] 80 mg in 00 Infusion, Medica l NaCl 0.9% CONTINUOUS Bran ch (NS) 500 mL , Starting infusion on Tue04/22/21 at 1500 pantoprazol 2021- No 8mg/h 8 mg/hr U nivers e 04-22 (50 ity of (PROTONIX) 20:00: 14:07 mL/hr), IV [place] 80 mg in 00 :43 Infusion, Medica l NaCl 0.9% CONTINUOUS Bran ch (NS) 500 mL , Starting infusion on Tue04/22/21 at 1500 indocyanine 2021- No Intravenou [facility] green 04-22 s, ONCE ity of (CARDIO-GRE 19:11: 21:36 [place]TRA [place] EN) 00 :11 PROCEDURE, Medical injection Starting Branch on Tue04/22/21 at 1411, Until Tue04/22/21 at 1636, Routine, Intra-op indocyanine 2021- No Intravenou [facility] green 04-22 s, ONCE ity of (CARDIO-GRE 19:11: 21:36 [place]TRA [place] EN) 00 :11 PROCEDURE, Medical injection Starting Branch on Tue04/22/21 at 1411, Until Tue04/22/21 at 1636, Routine, Intra-op Transfuse 2021- No Routine Univ ers Packed RBC 04-22 ity of (in 18:57: 21:36 [place] units)~On 39 :11 Medical hold for Branch procedure; 04/22/21 at 9 AM; Infuse Each Unit Over: 2 Hours Transfuse 2021- No Routine Univ ers Packed RBC 04-22 ity of (in 18:57: 21:36 [place] units)~On 39 :11 Medical hold for Branch procedure; 04/22/21 at 9 AM; Infuse Each Unit Over: 2 Hours PHENYLephri 2021- No Slow IV Un berta ne 1000 -16 03-16 Push, ONCE ity o f mcg/10 mL 17:17: 21:36 INTRA [place] in 0.9% 00 :11 PROCEDURE, Medica l NaCl Starting Branch syringe on Tue04/22/21 at 1217, Until Tue04/22/21 at 1636, Routine, Intra-op PHENYLephri 2021- No Slow IV Un berta ne 1000 04-22 03-16 Push, ONCE ity o f mcg/10 mL 17:17: 21:36 INTRA [place] in 0.9% 00 :11 PROCEDURE, Medica l NaCl Starting Branch syringe on Tue04/22/21 at 1217, Until Tue04/22/21 at 1636, Routine, Intra-op cetirizine Yes 10mg Take 10 mg U nivers 10 mg 3-16 by mouth ity of tablet 16:53: daily. [place] 32 Medical Branch BIOTIN ORAL Yes 1{tbl} Take 1 Un berta 3-16 tablet by ity of 16:53: mouth [place] 32 daily. Medical Branch triamcinolo Yes Use in Uni vers ne 3-16 each ity of acetonide 16:53: nostril. [place] (NASACORT 32 Medical AQ NASAL) Branch polyethylen Yes 17g Take 17 g U nivers e glycol 3-16 by mouth ity of 3350 17 16:53: daily. [place] gram/dose 32 Medical powder Branch Cyanocobala Yes Place Unive rs min-Cobamam 3-16 under the ity of edna (B12) 16:53: tongue. [place] 5,000-100 32 Medical mcg Lozg Branch HYDROcodone Yes 1{tbl} Take 1 Un berta -acetaminop 3-16 tablet by ity of hen 10-325 16:53: mouth [place] mg tablet 32 every 6 Medical (six) Branch hours as needed (Can take 1 or 2 per doctor's instructio ns). triamterene Yes 1{capsu Take 1 U nivers -hydrochlor 3-16 le} capsule by it y of othiazide 16:53: mouth [place] 37.5-25 mg 32 every Medical per capsule morning. Bran ch cetirizine Yes 10mg Take 10 mg U nivers 10 mg 3-16 by mouth ity of tablet 16:53: daily. [place] [address] Medical Branch BIOTIN ORAL Yes 1{tbl} Take 1 Un berta 3-16 tablet by ity of 16:53: mouth [place] 32 daily. Medical Branch triamcinolo Yes Use in Uni vers ne 3-16 each ity of acetonide 16:53: nostril. [place] (NASACORT 32 Medical AQ NASAL) Branch polyethylen 0 Yes 17g Take 17 g U nivers e glycol 3-16 by mouth ity of 3350 17 16:53: daily. [place] gram/dose 32 Medical powder Branch Cyanocobala Yes Place Unive rs min-Cobamam 3-16 under the ity of edna (B12) 16:53: tongue. [place] 5,000-100 32 Medical mcg Lozg Branch HYDROcodone Yes 1{tbl} Take 1 Un berta -acetaminop 3-16 tablet by ity of hen 10-325 16:53: mouth [place] mg tablet 32 every 6 Medical (six) Branch hours as needed (Can take 1 or 2 per doctor's instructio ns). triamterene Yes 1{capsu Take 1 U nivers -hydrochlor 3-16 le} capsule by it y of othiazide 16:53: mouth [place] 37.5-25 mg 32 every Medical per capsule morning. Bran cetirizine Yes 10mg Take 10 mg U nivers 10 mg 3-16 by mouth ity of tablet 16:53: daily. [address] Branch BIOTIN ORAL Yes 1{tbl} Take 1 Un berta 3-16 tablet by ity of 16:53: mouth [place] 32 daily. Medical Branch triamcinolo Yes Use in Uni vers ne 3-16 each ity of acetonide 16:53: nostril. [place] (NASACORT 32 Medical AQ NASAL) Branch polyethylen 0 Yes 17g Take 17 g U nivers e glycol 3-16 by mouth ity of 3350 17 16:53: daily. [place] gram/dose 32 Medical powder Branch Cyanocobala Yes Place Unive rs min-Cobamam 3-16 under the ity of edna (B12) 16:53: tongue. [place] 5,000-100 32 Medical mcg Lozg Branch HYDROcodone Yes 1{tbl} Take 1 Un berta -acetaminop 3-16 tablet by ity of hen 10-325 16:53: mouth [place] mg tablet 32 every 6 Medical (six) Branch hours as needed (Can take 1 or 2 per doctor's instructio ns). triamterene Yes 1{capsu Take 1 U nivers -hydrochlor 3-16 le} capsule by it y of othiazide 16:53: mouth [place] 37.5-25 mg 32 every Medical per capsule morning. Bran ch bupivacaine Yes PRN, Univer s (preserv 3-16 Starting ity of free) 15:38: on Tue (SENSORCAIN 04/22/21 at Mo dical E [facility]) 0.25 1038, Branch % (2.5 Intra-op mg/mL) 30 mL, bupivacaine liposome (PF) (EXPAREL (PF)) 1.3 % (13.3 mg/mL) 266 mg ceFAZolin 2021- No Slow IV Univ ers (ANCEF) 04-22 Push, ONCE ity o f injection 15:30: 21:36 INTRA [place] 00 :11 PROCEDURE, Medical Starting Branch on Tue04/22/21 at 1030, Until Tue04/22/21 at 1636, SULAIMAN, Intra-op ceFAZolin 2021- No Slow IV Univ ers (ANCEF) 04-22 Push, ONCE ity o f injection 15:30: 21:36 INTRA [place] 00 :11 PROCEDURE, Medical Starting Branch on Tue04/22/21 at 1030, Until Tue04/22/21 at 1636, SULAIMAN, Intra-op rocuronium 2021- No IV Push, Un berta (ZEMURON) 04-22 ONCE INTRA ity of injection 15:14: 21:36 PROCEDURE, [place] 00 :11 Starting Medical on Tue Branch 04/22/21 at 1014, Until Tue04/22/21 at 1636, Routine, Intra-op rocuronium 2021- No IV Push, Un berta (ZEMURON) 04-2216 ONCE INTRA ity of injection 15:14: 21:36 PROCEDURE, [place] 00 :11 Starting Medical on Wed Branch 04/22/21 at 1014, Until Tue04/22/21 at 1636, Routine, Intra-op propofoL IV 2021- No Intravenou [facility] infusion 04-22-16 s, ONCE ity of 15:13: 21:36 INTRA [place] 00 :11 PROCEDURE, Medical Starting Branch on 04/22/21 at 1013, Until Tue04/22/21 at 1636, Routine, Intra-op propofoL IV 2021- No Intravenou [facility] infusion 04-2216 s, ONCE ity of 15:13: 21:36 INTRA [place] 00 :11 PROCEDURE, Medical Starting Branch on 04/22/21 at 1013, Until Tue04/22/21 at 1636, Routine, Intra-op lidocaine 2021- No Intravenou U nivers 1% 04-2216 s, ONCE ity of (XYLOCAINE) 15:12: 21:36 INTRA [place] 100 mg/10 00 :11 PROCEDURE, Medi landry mL (1 %) Starting Branch injection on Tue04/22/21 at 1012, Until Tue04/22/21 at 1636, Routine, Intra-op lidocaine 2021- No Intravenou U nivers 1% 04-2216 s, ONCE ity of (XYLOCAINE) 15:12: 21:36 INTRA [place] 100 mg/10 00 :11 PROCEDURE, Medi landry mL (1 %) Starting Branch injection on Tue04/22/21 at 1012, Until Tue04/22/21 at 1636, Routine, Intra-op FENTanyl PF 2021- No Intravenou Univers (SUBLIMAZE 04-22-16 s, ONCE ity o f (PF)) 15:11: 21:36 INTRA [place] injection 00 :11 PROCEDURE, Medi landry Starting Branch on Tue04/22/21 at 1011, Until Tue04/22/21 at 1636, Routine, Intra-op FENTanyl PF 2021- No Intravenou [facility] (SUBLIMAZE 3-16 03-16 s, ONCE ity o f (PF)) 15:11: 21:36 INTRA [place] injection 00 :11 PROCEDURE, Medi landry Starting Branch on Tue04/22/21 at 1011, Until Tue04/22/21 at 1636, Routine, Intra-op lactated 2021- No IV [facility] ringers IV 04-22 Infusion, ity of infusion 15:03: 21:36 CONTINUOUS [place] 00 :11 PRN, Medical Starting Branch on Tue04/22/21 at 1003, Until Tue04/22/21 at 1636, Routine, Intra-op lactated 2021- No IV [facility] ringers IV 04-22 Infusion, ity of infusion 15:03: 21:36 CONTINUOUS [place] 00 :11 PRN, Medical Starting Branch on Tue04/22/21 at 1003, Until Tue04/22/21 at 1636, Routine, Intra-op alvimopan 2021- No 12mg 12 mg, Unive rs (ENTEREG) 04-22 Oral, ity of capsule 12 13:00: 13:18 ONCE, 1 [place] mg 00 :00 dose, On Medical Wed Branch 04/22/21 at 0800, Routine, DSU Pre-op
Restricted use approved by: LUDMILA HARTLEY - SURGERY/GE NERAL metroNIDAZO 2021- No 500mg 500 mg, IV Univers LE in NaCl 04-22 Infusion, ity of (iso-os) 12:54: 15:30 O.R. [place] (FLAGYL 32 :00 HOLDING Medical I.V.) RTU ONCE, 1 Branch IV infusion dose, 500 mg Starting on Tue04/22/21 at 0754, Until Discontinu ed, Administer over 75 Minutes, 100 mL, DSU Pre-op
Reason for Anti-Infec tive: Surgical Prophylaxi s
Surgi landry Prophylaxi s: Other (see Comments)< br>Duratio n of therapy: within 24 hours of surgery metroNIDAZO 2021- No 500mg 500 mg, IV [facility] LE in NaCl 04-22 Infusion, ity of (iso-os) 12:54: 15:30 O.R. [place] (FLAGYL 32 :00 HOLDING Medical I.V.) RTU ONCE, 1 Branch IV infusion dose, 500 mg Starting on Tue04/22/21 at 0754, Until Discontinu ed, Administer over 75 Minutes, 100 mL, DSU Pre-op
Reason for Anti-Infec tive: Surgical Prophylaxi s
Surgi landry Prophylaxi s: Other (see Comments)< br>Duratio n of therapy: within 24 hours of surgery celecoxib 2021- No 200mg 200 mg, Uni vers (CELEBREX) 04-22 Oral, O.R. it y of capsule 200 12:54: 13:20 HOLDING [place] mg 32 :00 ONCE, 1 Medical dose, Branch Starting on Tue04/22/21 at 0754, Until Discontinu ed, Routine, Pain, DSU Pre-op acetaminoph No 650mg 650 mg, U nivers en 04-22 Oral, O.R. ity of (TYLENOL) 12:54: 13:19 [place]ING [place] tablet 650 32 :00 ONCE, 1 Medica l mg dose, Branch Starting on Tue04/22/21 at 0754, Until Discontinu ed, Routine, Surgery / Procedure, DSU Pre-op cetirizine Yes 10mg Take 10 mg U nivers 10 mg 3-09 by mouth ity of tablet 11:49: daily. [place] [address] Medical Branch BIOTIN ORAL Yes 1{tbl} Take 1 Un berta 3-09 tablet by ity of 11:49: mouth [place] 34 daily. Medical Branch triamcinolo Yes Use in Uni vers ne 3-09 each ity of acetonide 11:49: nostril. [place] ([place]SAC[place] 34 Medical AQ NASAL) Branch polyethylen Yes 17g Take 17 g U nivers e glycol 3-09 by mouth ity of 3350 17 11:49: daily. [place] gram/dose 34 Medical powder Branch Cyanocobala Yes Place Unive rs min-Cobamam 3-09 under the ity of edna (B12) 11:49: tongue. [place] 5,000-100 34 Medical mcg Lozg Branch HYDROcodone Yes 1{tbl} Take 1 Un berta -acetaminop 3-09 tablet by ity of hen 10-325 11:49: mouth [place] mg tablet 34 every 6 Medical (six) Branch hours as needed (Can take 1 or 2 per doctor's instructio ns). triamterene Yes 1{capsu Take 1 U nivers -hydrochlor 3-09 le} capsule by it y of othiazide 11:49: mouth [place] 37.5-25 mg 34 every Medical per capsule morning. Bran ch cetirizine Yes 10mg Take 10 mg U nivers 10 mg 3-09 by mouth ity of tablet 11:49: daily. [place] 34 Medical Branch BIOTIN ORAL Yes 1{tbl} Take 1 Un berta 3-09 tablet by ity of 11:49: mouth [place] 34 daily. Medical Branch triamcinolo Yes Use in Uni vers ne 3-09 each ity of acetonide 11:49: nostril. [place] ([place]SAC[place] 34 Medical AQ NASAL) Branch polyethylen Yes 17g Take 17 g U nivers e glycol 3-09 by mouth ity of 3350 17 11:49: daily. [place] gram/dose 34 Medical powder Branch Cyanocobala Yes Place Unive rs min-Cobamam 3-09 under the ity of edna (B12) 11:49: tongue. [place] 5,000-100 34 Medical mcg Lozg Branch HYDROcodone Yes 1{tbl} Take 1 Un berta -acetaminop 3-09 tablet by ity of hen 10-325 11:49: mouth [place] mg tablet 34 every 6 Medical (six) Branch hours as needed (Can take 1 or 2 per doctor's instructio ns). triamterene Yes 1{capsu Take 1 U nivers -hydrochlor 3-09 le} capsule by it y of othiazide 11:49: mouth [place] 37.5-25 mg 34 every Medical per capsule morning. Bran ch cetirizine Yes 10mg Take 10 mg U nivers 10 mg 2-11 by mouth ity of tablet 08:18: daily. [place] 53 Medical Branch BIOTIN ORAL 2022-0 Yes 1{tbl} Take 1 Un berta 2-11 tablet by ity of 08:18: mouth [place] 53 daily. Medical Branch triamcinolo 0 Yes Use in Uni vers ne 2-11 each ity of acetonide 08:18: nostril. [place] ([place]SAC[place] 53 Medical AQ NASAL) Branch polyethylen 0 Yes 17g Take 17 g U nivers e glycol 2-11 by mouth ity of 3350 17 08:18: daily. [place] gram/dose 53 Medical powder Branch Cyanocobala [address] Unive rs min-Cobamam 2-11 under the ity of edna (B12) 08:18: tongue. [place] 5,000-100 53 Medical mcg Lozg Branch HYDROcodone 0 Yes 1{tbl} Take 1 Un berta -acetaminop 2-11 tablet by ity of hen 10-325 08:18: mouth [place] mg tablet 53 every 6 Medical (six) Branch hours as needed (Can take 1 or 2 per doctor's instructio ns). triamterene 0 Yes 1{capsu Take 1 U nivers -hydrochlor 2-11 le} capsule by it y of othiazide 08:18: mouth [place] 37.5-25 mg 53 every Medical per capsule morning. Bran ch cetirizine 0 Yes 10mg Take 10 mg U nivers 10 mg 2-11 by mouth ity of tablet 08:18: daily. [place] 53 Medical Branch BIOTIN ORAL 2021-0 Yes 1{tbl} Take 1 Un berta 2-11 tablet by ity of 08:18: mouth [place] 53 daily. Medical Branch triamcinolo Yes Use in Uni vers ne 2-11 each ity of acetonide 08:18: nostril. [place] (NASACORT 53 Medical AQ NASAL) Branch polyethylen 2021-0 Yes 17g Take 17 g U nivers e glycol 2-11 by mouth ity of 3350 17 08:18: daily. [place] gram/dose 53 Medical powder Branch Cyanocobala [address] Unive rs min-Cobamam 2-11 under the ity of edna (B12) 08:18: tongue. [place] 5,000-100 53 Medical mcg Lozg Branch HYDROcodone 2022-0 Yes 1{tbl} Take 1 Un berta -acetaminop 2-11 tablet by ity of hen 10-325 08:18: mouth [place] mg tablet 53 every 6 Medical (six) Branch hours as needed (Can take 1 or 2 per doctor's instructio ns). triamterene Yes 1{capsu Take 1 U nivers -hydrochlor 2-11 le} capsule by it y of othiazide 08:18: mouth [place] 37.5-25 mg 53 every Medical per capsule morning. Bran ch cetirizine Yes 10mg Take 10 mg U nivers 10 mg 2-11 by mouth ity of tablet 08:18: daily. [place] [address] Medical Branch BIOTIN ORAL Yes 1{tbl} Take 1 Un berta 2-11 tablet by ity of 08:18: mouth [place] 53 daily. Medical Branch triamcinolo Yes Use in Uni vers ne 2-11 each ity of acetonide 08:18: nostril. [place] (NASACORT 53 Medical AQ NASAL) Branch polyethylen Yes 17g Take 17 g U nivers e glycol 2-11 by mouth ity of 3350 17 08:18: daily. [place] gram/dose 53 Medical powder Branch Cyanocobala Yes Place Unive rs min-Cobamam 2-11 under the ity of edna (B12) 08:18: tongue. [place] 5,000-100 53 Medical mcg Lozg Branch HYDROcodone Yes 1{tbl} Take 1 Un berta -acetaminop 2-11 tablet by ity of hen 10-325 08:18: mouth [place] mg tablet 53 every 6 Medical (six) Branch hours as needed (Can take 1 or 2 per doctor's instructio ns). triamterene Yes 1{capsu Take 1 U nivers -hydrochlor 2-11 le} capsule by it y of othiazide 08:18: mouth [place] 37.5-25 mg 53 every Medical per capsule morning. Bran ch cetirizine Yes 10mg Take 10 mg U nivers 10 mg 2-11 by mouth ity of tablet 08:18: daily. [place] [address] Medical Branch BIOTIN ORAL Yes 1{tbl} Take 1 Un berta 2-11 tablet by ity of 08:18: mouth [place] 53 daily. Medical Branch triamcinolo Yes Use in Uni vers ne 2-11 each ity of acetonide 08:18: nostril. [place] (NASACORT 53 Medical AQ NASAL) Branch polyethylen Yes 17g Take 17 g U nivers e glycol 2-11 by mouth ity of 3350 17 08:18: daily. [place] gram/dose 53 Medical powder Branch Cyanocobala Yes Place Unive rs min-Cobamam 2-11 under the ity of edna (B12) 08:18: tongue. [place] 5,000-100 53 Medical mcg Lozg Branch HYDROcodone Yes 1{tbl} Take 1 Un berta -acetaminop 2-11 tablet by ity of hen 10-325 08:18: mouth [place] mg tablet 53 every 6 Medical (six) Branch hours as needed (Can take 1 or 2 per doctor's instructio ns). triamterene Yes 1{capsu Take 1 U nivers -hydrochlor 2-11 le} capsule by it y of othiazide 08:18: mouth [place] 37.5-25 mg 53 every Medical per capsule morning. Bran ch neomycin Yes [id number] 1000mg Take 2 [facility] 500 mg 2-11 tablets by ity of tablet 00:00: mouth [place] 00 SEE-INSTRU Medical CTIONS. Branch Take 2 tablets by mouth at 4pm, 5pm and 10pm on the day prior to your surgery metroNIDAZO Yes [id number] 1000mg Take 2 [facility] LE 500 mg 2-11 tablets by ity of tablet 00:00: mouth [place] 00 SEE-INSTRU Medical CTIONS. Branch Take 2 tablets by mouth at 4pm, 5pm and 10pm on the day prior to your surgery neomycin Yes [id number] 1000mg Take 2 [facility] 500 mg 2-11 tablets by ity of tablet 00:00: mouth [place] 00 SEE-INSTRU Medical CTIONS. Branch Take 2 tablets by mouth at 4pm, 5pm and 10pm on the day prior to your surgery metroNIDAZO Yes [id number] 1000mg Take 2 [facility] LE 500 mg 2-11 tablets by ity of tablet 00:00: mouth [place] 00 SEE-INSTRU Medical CTIONS. Branch Take 2 tablets by mouth at 4pm, 5pm and 10pm on the day prior to your surgery neomycin 2021-0 Yes [id number] 1000mg Take 2 [facility] 500 mg 2-11 tablets by ity of tablet 00:00: mouth [place] SEE-INSTRU Medical CTIONS. Branch Take 2 tablets by mouth at 4pm, 5pm and 10pm on the day prior to your surgery metroNIDAZO 2021-0 Yes [id number] 1000mg Take 2 [facility] LE 500 mg 2-11 tablets by ity of tablet 00:00: mouth [place] 00 SEE-INSTRU Medical CTIONS. Branch Take 2 tablets by mouth at 4pm, 5pm and 10pm on the day prior to your surgery neomycin 0 Yes [id number] 1000mg Take 2 [facility] 500 mg 2-11 tablets by ity of tablet 00:00: mouth [place] SEE-INSTRU Medical CTIONS. Branch Take 2 tablets by mouth at 4pm, 5pm and 10pm on the day prior to your surgery metroNIDAZO 0 Yes [id number] 1000mg Take 2 [facility] LE 500 mg 2-11 tablets by ity of tablet 00:00: mouth SEE-INSTRU Medical CTIONS. Branch Take 2 tablets by mouth at 4pm, 5pm and 10pm on the day prior to your surgery neomycin 0 Yes [id number] 1000mg Take 2 [facility] 500 mg 2-11 tablets by ity of tablet 00:00: mouth [place] SEE-INSTRU Medical CTIONS. Branch Take 2 tablets by mouth at 4pm, 5pm and 10pm on the day prior to your surgery metroNIDAZO 2021-0 Yes [id number] 1000mg Take 2 [facility] LE 500 mg 2-11 tablets by ity of tablet 00:00: mouth [place] SEE-INSTRU Medical CTIONS. Branch Take 2 tablets by mouth at 4pm, 5pm and 10pm on the day prior to your surgery neomycin 2021-0 Yes [id number] 1000mg Take 2 [facility] 500 mg 2-11 tablets by ity of tablet 00:00: mouth [place] SEE-INSTRU Medical CTIONS. Branch Take 2 tablets by mouth at 4pm, 5pm and 10pm on the day prior to your surgery metroNIDAZO 2021-0 Yes [id number] 1000mg Take 2 [facility] LE 500 mg 2-11 tablets by ity of tablet 00:00: mouth [place] 00 SEE-INSTR Medical CTIONS. Branch Take 2 tablets by mouth at 4pm, 5pm and 10pm on the day prior to your surgery neomycin Yes [id number] 1000mg Take 2 [facility] 500 mg 2-11 tablets by ity of tablet 00:00: mouth [place] 00 SEEINSTR Medical CTIONS. Branch Take 2 tablets by mouth at 4pm, 5pm and 10pm on the day prior to your surgery metroNIDAZO Yes [id number] 1000mg Take 2 [facility] LE 500 mg 2-11 tablets by ity of tablet 00:00: mouth [place] 00 SEE-INSTR Medical CTIONS. Branch Take 2 tablets by mouth at 4pm, 5pm and 10pm on the day prior to your surgery neomycin Yes [id number] 1000mg Take 2 [facility] 500 mg 2-11 tablets by ity of tablet 00:00: mouth [place] 00 SEE-INSTR Medical CTIONS. Branch Take 2 tablets by mouth at 4pm, 5pm and 10pm on the day prior to your surgery metroNIDAZO Yes [id number] 1000mg Take 2 [facility] LE 500 mg 2-11 tablets by ity of tablet 00:00: mouth [place] 00 [facility] Medical CTIONS. Branch Take 2 tablets by mouth at 4pm, 5pm and 10pm on the day prior to your surgery diltiazem 2021- Yes [id number] 120mg Take 1 U nivers 120 mg 24 2-11 05-13 capsule by ity of hr capsule 00:00: 04:59 mouth 2 [facility] 00 :00 (two) Medical times [place] daily for 90 days. diltiazem 2021- Yes [id number] 120mg Take 1 U nivers 120 mg 24 2-11 05-13 capsule by ity of hr capsule 00:00: 04:59 mouth 2 [facility] 00 :00 (two) Medical times Branch daily for 90 days. diltiazem 2021- Yes [id number] 120mg Take 1 U nivers 120 mg 24 2-11 05-13 capsule by ity of hr capsule 00:00: 04:59 mouth 2 [facility] [facility] 00 :00 (two) Medical times [place] daily for 90 days. diltiazem 2021- Yes [id number] 120mg Take 1 U nivers 120 mg 24 2- 05-13 capsule by ity of hr capsule 00:00: 04:59 mouth 2 [facility] 00 :00 (two) Medical times Branch daily for 90 days. diltiazem 2021- Yes [id number] 120mg Take 1 U nivers 120 mg 24 2- 05-13 capsule by ity of hr capsule 00:00: 04:59 mouth 2 [place] 00 :00 (two) Medical times Branch daily for 90 days. diltiazem 2021- Yes [id number] 120mg Take 1 U nivers 120 mg 24 2- 05-13 capsule by ity of hr capsule 00:00: 04:59 mouth 2 [place] 00 :00 (two) Medical times Branch daily for 90 days. diltiazem 2021- Yes [id number] 120mg Take 1 U nivers 120 mg 24 2-12 12-13 capsule by ity of hr capsule 00:00: 04:59 mouth 2 [place] 00 :00 (two) Medical times Branch daily for 90 days. diltiazem 2021- Yes [id number] 120mg Take 1 U nivers 120 mg 24 2-13 capsule by ity of hr capsule 00:00: 04:59 mouth 2 [place] 00 :00 (two) Medical times Branch daily for 90 days. diltiazem 2021- Yes [id number] 120mg Take 1 U nivers 120 mg 24 2-13 capsule by ity of hr capsule 00:00: 04:59 mouth 2 [place] 00 :00 (two) Medical times Branch daily for 90 days. diltiazem 2021- Yes [id number] 120mg Take 1 U nivers 120 mg 24 2- 05-13 capsule by ity of hr capsule 00:00: 04:59 mouth 2 [place] 00 :00 (two) Medical times Branch daily for 90 days. diltiazem 2021- Yes [id number] 120mg Take 1 U nivers 120 mg 24 2- 05-13 capsule by ity of hr capsule 00:00: 04:59 mouth 2 [facility] 00 :00 (two) Medical times Branch daily for 90 days. diltiazem 2021- Yes [id number] 120mg Take 1 U nivers 120 mg 24 2-12 12-13 capsule by ity of hr capsule 00:00: 04:59 mouth 2 [place] 00 :00 (two) Medical times Branch daily for 90 days. diltiazem 2021- Yes [id number] 120mg Take 1 U nivers 120 mg 24 2-12 12-13 capsule by ity of hr capsule 00:00: 04:59 mouth 2 [place] 00 :00 (two) Medical times Branch daily for 90 days. diltiazem 2021- No [id number] 120mg Take 1 U nivers 120 mg 24 2-12 capsule by ity of hr capsule 00:00: 00:00 mouth 2 [place] 00 :00 (two) Medical times Branch daily for 90 days. neomycin 2021-2021- No [id number] 1000mg Take 2 [facility] 500 mg 03-20-23 tablets by ity of tablet 00:00: 00:00 mouth [place] 00 :00 SEE-INSTRU Medical CTIONS. Branch Take 2 tablets by mouth at 4pm, 5pm and 10pm on the day prior to your surgery metroNIDAZO 2021- No [id number] 1000mg Take 2 [facility] LE 500 mg 03-20- tablets by ity of tablet 00:00: 00:00 mouth [place] 00 :00 SEE-INSTRU Medical CTIONS. Branch Take 2 tablets by mouth at 4pm, 5pm and 10pm on the day prior to your surgery cephALEXin Yes [id number] 500mg Take 1 Univers (KEFLEX) 1-27 capsule by ity o f 500 mg 00:00: mouth 3 [place] capsule 00 (three) Medical times Branch daily. cephALEXin Yes [id number] 500mg Take 1 Univers (KEFLEX) 1-27 capsule by ity o f 500 mg 00:00: mouth 3 [place] capsule 00 (three) Medical times Branch daily. cephALEXin Yes [id number] 500mg Take 1 Univers (KEFLEX) 1-27 capsule by ity o f 500 mg 00:00: mouth 3 [place] capsule 00 (three) Medical times Branch daily. cephALEXin Yes [id number] 500mg Take 1 Univers (KEFLEX) 1-27 capsule by ity o f 500 mg 00:00: mouth 3 [place] capsule 00 (three) Medical times Branch daily. cephALEXin 2022-0 Yes [id number] 500mg Take 1 Univers (KEFLEX) 1-27 capsule by ity o f 500 mg 00:00: mouth 3 [place] capsule 00 (three) Medical times Branch daily. cephALEXin 2022-0 Yes [id number] 500mg Take 1 Univers (KEFLEX) 1-27 capsule by ity o f 500 mg 00:00: mouth 3 [place] capsule 00 (three) Medical times Branch daily. cephALEXin 2022-0 Yes [id number] 500mg Take 1 Univers (KEFLEX) 1-27 capsule by ity o f 500 mg 00:00: mouth 3 [place] capsule 00 (three) Medical times Branch daily. cephALEXin 2022-0 Yes [id number] 500mg Take 1 Univers (KEFLEX) 1-27 capsule by ity o f 500 mg 00:00: mouth 3 [place] capsule 00 (three) Medical times Branch daily. cephALEXin 2022-0 Yes [id number] 500mg Take 1 Univers (KEFLEX) 1-27 capsule by ity o f 500 mg 00:00: mouth 3 [place] capsule 00 (three) Medical times Branch daily. cephALEXin 2022-0 2022- No [id number] 500mg Take 1 Univers (KEFLEX) 1-27 03-23 capsule by ity of 500 mg 00:00: 00:00 mouth 3 [place] capsule 00 :00 (three) Medical times Branch daily. omeprazole 2022-0 Yes [id number] 40mg Take 1 [facility] 40 mg 1-12 capsule by ity of capsule 00:00: mouth 2 (two) Medical times Branch daily. omeprazole 2022-0 Yes [id number] 40mg Take 1 [facility] 40 mg 1-12 capsule by ity of capsule 00:00: mouth 2 (two) Medical times Branch daily. omeprazole 2022-0 Yes [id number] 40mg Take 1 [facility] 40 mg 1-12 capsule by ity of capsule 00:00: mouth 2 (two) Medical times Branch daily. omeprazole 2022-0 Yes [id number] 40mg Take 1 [facility] 40 mg 1-12 capsule by ity of capsule 00:00: mouth 2 (two) Medical times Branch daily. omeprazole 2022-0 Yes [id number] 40mg Take 1 [facility] 40 mg 1-12 capsule by ity of capsule 00:00: mouth (two) Medical times Branch daily. omeprazole 2022-0 Yes [id number] 40mg Take 1 [facility] 40 mg 1-12 capsule by ity of capsule 00:00: mouth [place] (two) Medical times Branch daily. omeprazole 2022-0 Yes [id number] 40mg Take 1 [facility] 40 mg 1-12 capsule by ity of capsule 00:00: mouth [place] (two) Medical times Branch daily. omeprazole 2022-0 Yes [id number] 40mg Take 1 [facility] 40 mg 1-12 capsule by ity of capsule 00:00: mouth [place] (two) Medical times Branch daily. omeprazole 2022-0 Yes [id number] 40mg Take 1 [facility] 40 mg 1-12 capsule by ity of capsule 00:00: mouth [place] (two) Medical times Branch daily. omeprazole 2022-0 Yes [id number] 40mg Take 1 [facility] 40 mg 1-12 capsule by ity of capsule 00:00: mouth [place] (two) Medical times Branch daily. omeprazole 2022-0 Yes [id number] 40mg Take 1 [facility] 40 mg 1-12 capsule by ity of capsule 00:00: mouth [place] (two) Medical times Branch daily. omeprazole 2022-0 Yes [id number] 40mg Take 1 [facility] 40 mg 1-12 capsule by ity of capsule 00:00: mouth [place] (two) Medical times Branch daily. omeprazole 2022-0 Yes [id number] 40mg Take 1 [facility] 40 mg 1-12 capsule by ity of capsule 00:00: mouth [place] ([facility]) Medical times Branch daily. omeprazole 2022-0 Yes [id number] 40mg Take 1 [facility] 40 mg 1-12 capsule by ity of capsule 00:00: mouth [place] (two) Medical times Branch daily. omeprazole 2022-0 Yes [id number] 40mg Take 1 [facility] 40 mg 1-12 capsule by ity of capsule 00:00: mouth [place] (two) Medical times Branch daily. LEVETIRACET 2020- Yes TAKE 2 Univ ers AM 500 mg 2-28 TABLETS BY ity of tablet 00:00: MOUTH [place] TWICE Medical DAILY Branch LEVETIRACET 2020- Yes TAKE 2 [facility] ers AM 500 mg 2-28 TABLETS BY ity of tablet 00:00: [facility] TWICE Medical DAILY Branch LEVETIRACET 2020-02 Yes TAKE 2 Univ ers AM 500 mg 2-28 TABLETS BY ity of tablet 00:00: [facility] TWICE Medical DAILY Branch LEVETIRACET 2020-02 Yes TAKE 2 Univ ers AM 500 mg 2-28 TABLETS BY ity of tablet 00:00: [facility] TWICE Medical DAILY Branch LEVETIRACET 2020-02 Yes TAKE 2 Univ ers AM 500 mg 2-28 TABLETS BY ity of tablet 00:00: [facility] TWICE Medical DAILY Branch LEVETIRACET 2020-02 Yes TAKE 2 Univ ers AM 500 mg 2-28 TABLETS BY ity of tablet 00:00: [facility] TWICE Medical DAILY Branch LEVETIRACET 2020-02 Yes TAKE 2 Univ ers AM 500 mg 2-28 TABLETS BY ity of tablet 00:00: [facility] TWICE Medical DAILY Branch LEVETIRACET 2020-02 Yes TAKE 2 Univ ers AM 500 mg 2-28 TABLETS BY ity of tablet 00:00: [facility] TWICE Medical DAILY Branch LEVETIRACET 2020-02 Yes TAKE 2 Univ ers AM 500 mg 2-28 TABLETS BY ity of tablet 00:00: [facility] TWICE Medical DAILY Branch LEVETIRACET 2020-02 Yes TAKE 2 Univ ers AM 500 mg 2-28 TABLETS BY ity of tablet 00:00: [facility] TWICE Medical DAILY Branch LEVETIRACET 2020-02 Yes TAKE 2 Univ ers AM 500 mg 2-28 TABLETS BY ity of tablet 00:00: [facility] TWICE Medical DAILY Branch LEVETIRACET 2020-02- No TAKE 2 Uni vers AM 500 mg 2-28 04-04 TABLETS BY ity of tablet 00:00: 00:00 [facility] 00 :00 TWICE Medical DAILY Branch amitriptyli 2020-02 Yes 1{tbl} 1 tablet [facility] ne 100 mg 2-11 at ity of tablet 00:00: bedtime. [place] [facility] amitriptyli 2020-02 Yes 1{tbl} 1 tablet [facility] ne 100 mg 2-11 at ity of tablet 00:00: bedtime. [place] [facility] amitriptyli 2021-1 Yes 1{tbl} 1 tablet [facility] ne 100 mg 2-11 at ity of tablet 00:00: bedtime. Medical Branch amitriptyli 2020-02 Yes 1{tbl} 1 tablet [facility] ne 100 mg 2-11 at ity of tablet 00:00: bedtime. Medical Branch amitriptyli 2020-02 Yes 1{tbl} 1 tablet [facility] ne 100 mg 2-11 at ity of tablet 00:00: bedtime. Medical Branch amitriptyli 2020-02 Yes 1{tbl} 1 tablet [facility] ne 100 mg 2-11 at ity of tablet 00:00: bedtime. Medical Branch amitriptyli 2020-02 Yes 1{tbl} 1 tablet [facility] ne 100 mg 2-11 at ity of tablet 00:00: bedtime. Medical Branch amitriptyli 2020-02 Yes 1{tbl} 1 tablet [facility] ne 100 mg 2-11 at ity of tablet 00:00: bedtime. Medical Branch amitriptyli 2020-02 Yes 1{tbl} 1 tablet [facility] ne 100 mg 2-11 at ity of tablet 00:00: bedtime. Medical Branch amitriptyli 2020-02 Yes 1{tbl} 1 tablet [facility] ne 100 mg 2-11 at ity of tablet 00:00: bedtime. Medical Branch amitriptyli 2020-02 Yes 1{tbl} 1 tablet [facility] ne 100 mg 2-11 at ity of tablet 00:00: bedtime. Medical Branch amitriptyli 2020-02 Yes 1{tbl} 1 tablet [facility] ne 100 mg 2-11 at ity of tablet 00:00: bedtime. Medical Branch amitriptyli 2020-02 Yes 1{tbl} 1 tablet [facility] ne 100 mg 2-11 at ity of tablet 00:00: bedtime. Medical Branch amitriptyli 2020-02 Yes 1{tbl} 1 tablet [facility] ne 100 mg 2-11 at ity of tablet 00:00: bedtime. [place] [id number] Takes Medical total of Branch 125mg amitriptyli 2020-02 Yes 1{tbl} 1 tablet [facility] ne 100 mg 2-11 at ity of tablet 00:00: bedtime. [place] 00 Takes Medical total of Branch 125mg amitriptyli 2020-02 Yes 1{tbl} 1 tablet [facility] ne 25 mg 1-30 at ity of tablet 00:00: bedtime. Medical Branch amitriptyli 2020-02 Yes 1{tbl} 1 tablet [facility] ne 25 mg 1-30 at ity of tablet 00:00: bedtime. [place] [facility] amitriptyli 2020-02 Yes 1{tbl} 1 tablet [facility] ne 25 mg 1-30 at ity of tablet 00:00: bedtime. [place] [facility] amitriptyli 2020-02 Yes 1{tbl} 1 tablet [facility] ne 25 mg 1-30 at ity of tablet 00:00: bedtime. [place] [facility] amitriptyli 2020-02 Yes 1{tbl} 1 tablet [facility] ne 25 mg 1-30 at ity of tablet 00:00: bedtime. [place] [facility] amitriptyli 2020-02 Yes 1{tbl} 1 tablet [facility] ne 25 mg 1-30 at ity of tablet 00:00: bedtime. [place] [facility] amitriptyli 2020-02 Yes 1{tbl} 1 tablet [facility] ne 25 mg 1-30 at ity of tablet 00:00: bedtime. [place] [facility] amitriptyli 2020-02 Yes 1{tbl} 1 tablet [facility] ne 25 mg 1-30 at ity of tablet 00:00: bedtime. [place] [facility] amitriptyli 2020-02 Yes 1{tbl} 1 tablet [facility] ne 25 mg 1-30 at ity of tablet 00:00: bedtime. [place] [facility] amitriptyli 2020-02- No 1{tbl} 1 tablet [facility] ne 25 mg 1-30 03-23 at ity of tablet 00:00: 00:00 bedtime. [place] 00 :00 Medical Branch clopidogreL 2020-02 Yes 1{tbl} 1 tablet [facility] 75 mg 1-23 daily. ity of tablet 00:00: [place] [facility] clopidogreL 2020-02 Yes 1{tbl} 1 tablet [facility] 75 mg 1-23 daily. ity of tablet 00:00: [place] [facility] clopidogreL 2020-02 Yes 1{tbl} 1 tablet [facility] 75 mg 1-23 daily. ity of tablet 00:00: [place] [facility] clopidogreL 2020-02 Yes 1{tbl} 1 tablet Univers 75 mg 1-23 daily. ity of tablet 00:00: [place] [facility] clopidogreL 2020-02 Yes 1{tbl} 1 tablet Univers 75 mg 1-23 daily. ity of tablet 00:00: [place] [facility] clopidogreL 2020-02 Yes 1{tbl} 1 tablet Univers 75 mg 1-23 daily. ity of tablet 00:00: [place] [facility] clopidogreL 2020-02 Yes 1{tbl} 1 tablet [facility] 75 mg 1-23 daily. ity of tablet 00:00: [place] [facility] clopidogreL 2020-02 Yes 1{tbl} 1 tablet Univers 75 mg 1-23 daily. ity of tablet 00:00: [place] [facility] clopidogreL 2020-02 Yes 1{tbl} 1 tablet Univers 75 mg 1-23 daily. ity of tablet 00:00: [place] [facility] clopidogreL 2020-02 Yes 1{tbl} 1 tablet Univers 75 mg 1-23 daily. ity of tablet 00:00: [place] [facility] clopidogreL 2020-02 Yes 1{tbl} 1 tablet Univers 75 mg 1-23 daily. ity of tablet 00:00: [place] [facility] clopidogreL 2020-02 Yes 1{tbl} 1 tablet [facility] 75 mg 1-23 daily. ity of tablet 00:00: [place] [facility] clopidogreL 2020-02 Yes 1{tbl} 1 tablet Univers 75 mg 1-23 daily. ity of tablet 00:00: [place] [facility] clopidogreL 2020- Yes 1{tbl} 1 tablet Univers 75 mg 1-23 daily. ity of tablet 00:00: [address] clopidogreL 2020- Yes 1{tbl} 1 tablet Univers 75 mg 1-23 daily. ity of tablet 00:00: [address] tiZANidine 2020-02 Yes 1{tbl} 1 tablet U nivers 2 mg tablet 1-16 at ity of 00:00: bedtime. [address] tiZANidine 2020-02 Yes 1{tbl} 1 tablet U nivers 2 mg tablet 1-16 at ity of 00:00: bedtime. [address] tiZANidine 2020-02 Yes 1{tbl} 1 tablet U nivers 2 mg tablet 1-16 at ity of 00:00: bedtime. [place] [facility] tiZANidine 2020-02 Yes 1{tbl} 1 tablet U nivers 2 mg tablet 1-16 at ity of 00:00: bedtime. [place] [facility] tiZANidine 2020-02 Yes 1{tbl} 1 tablet U nivers 2 mg tablet 1-16 at ity of 00:00: bedtime. [place] [facility] tiZANidine 2020-02 Yes 1{tbl} 1 tablet U nivers 2 mg tablet 1-16 at ity of 00:00: bedtime. [place] [facility] tiZANidine 2020-02 Yes 1{tbl} 1 tablet U nivers 2 mg tablet 1-16 at ity of 00:00: bedtime. [place] [facility] tiZANidine 2020-02 Yes 1{tbl} 1 tablet U nivers 2 mg tablet 1-16 at ity of 00:00: bedtime. [place] [facility] tiZANidine 2020-02 Yes 1{tbl} 1 tablet U nivers 2 mg tablet 1-16 at ity of 00:00: bedtime. [place] [facility] tiZANidine 2020-02 Yes 1{tbl} 1 tablet U nivers 2 mg tablet 1-16 at ity of 00:00: bedtime. [place] [facility] tiZANidine 2020-02 Yes 1{tbl} 1 tablet U nivers 2 mg tablet 1-16 at ity of 00:00: bedtime. [place] [facility] tiZANidine 2020-02 Yes 1{tbl} 1 tablet U nivers 2 mg tablet 1-16 at ity of 00:00: bedtime. [place] [facility] tiZANidine 2020-02 Yes 1{tbl} 1 tablet U nivers 2 mg tablet 1-16 at ity of 00:00: bedtime. [place] [facility] tiZANidine 2020-02 Yes 1{tbl} 1 tablet U nivers 2 mg tablet 1-16 at ity of 00:00: bedtime. [place] [facility] tiZANidine 2020-02 Yes 1{tbl} 1 tablet U nivers 2 mg tablet 1-16 at ity of 00:00: bedtime. [facility] atorvastati 2020-02 Yes 1{tbl} 1 tablet Univers n 80 mg 1-03 at ity of tablet 00:00: bedtime. [place] [facility] atorvasta 2020-02 Yes 1{tbl} 1 tablet Univers n 80 mg 1-03 at ity of tablet 00:00: bedtime. [facility] atorvasta 2020-02 Yes 1{tbl} 1 tablet Univers n 80 mg 1-03 at ity of tablet 00:00: bedtime. [place] [facility] atorvasta 2020-02 Yes 1{tbl} 1 tablet Univers n 80 mg 1-03 at ity of tablet 00:00: bedtime. [place] [facility] atorvasta 2020-02 Yes 1{tbl} 1 tablet Univers n 80 mg 1-03 at ity of tablet 00:00: bedtime. [place] [facility] atorvasta 2020-02 Yes 1{tbl} 1 tablet Univers n 80 mg 1-03 at ity of tablet 00:00: bedtime. [place] [facility] atorvasta 2020-02 Yes 1{tbl} 1 tablet Univers n 80 mg 1-03 at ity of tablet 00:00: bedtime. [place] [facility] atorvasta 2020-02 Yes 1{tbl} 1 tablet Univers n 80 mg 1-03 at ity of tablet 00:00: bedtime. [place] [facility] atorvasta 2020-02 Yes 1{tbl} 1 tablet Univers n 80 mg 1-03 at ity of tablet 00:00: bedtime. [place] [facility] atorvastati 2020-02 Yes 1{tbl} 1 tablet Univers n 80 mg 1-03 at ity of tablet 00:00: bedtime. [place] [facility] atorvasta 2020-02 Yes 1{tbl} 1 tablet Univers n 80 mg 1-03 at ity of tablet 00:00: bedtime. [place] [facility] atorvasta 2020-02 Yes 1{tbl} 1 tablet Univers n 80 mg 1-03 at ity of tablet 00:00: bedtime. [place] [facility] atorvasta 2020-02 Yes 1{tbl} 1 tablet Univers n 80 mg 1-03 at ity of tablet 00:00: bedtime. [place] [facility] atorvastati 2020-02 Yes 1{tbl} 1 tablet Univers n 80 mg 1-03 at ity of tablet 00:00: bedtime. [place] [facility] atorvastati 2020-02 Yes 1{tbl} 1 tablet Univers n 80 mg 1-03 at ity of tablet 00:00: bedtime. [place] [facility] diltiazem 2020-02- No [id number] 120mg Take 1 U nivers 120 mg 24 02-08 capsule by ity of hr capsule 00:00: 00:00 mouth [place] 00 :00 daily. Medical Branch acetaminoph 2021- No [id number] 650mg Take 2 [facility] en 325 mg 4-16 04-17 tablets by ity of tablet 00:00: 04:59 mouth [place] 00 :00 every 6 Medical (six) Branch hours as needed for Pain (scale 1-3). acetaminoph 2021- No [id number] 650mg Take 2 [facility] en 325 mg 4-16 04-17 tablets by ity of tablet 00:00: 04:59 mouth [place] 00 :00 every 6 Medical (six) Branch hours as needed for Pain (scale 1-3). acetaminoph 2021- No [id number] 650mg Take 2 [facility] en 325 mg 4-16 04-17 tablets by ity of tablet 00:00: 04:59 mouth [place] 00 :00 every 6 Medical (six) Branch hours as needed for Pain (scale 1-3). acetaminoph 2021- No [id number] 650mg Take 2 [facility] en 325 mg 4-16 04-17 tablets by ity of tablet 00:00: 04:59 mouth [place] 00 :00 every 6 Medical (six) Branch hours as needed for Pain (scale 1-3). acetaminoph 2021- No [id number] 650mg Take 2 [facility] en 325 mg 4-16 04-17 tablets by ity of tablet 00:00: 04:59 mouth [place] 00 :00 every 6 Medical (six) Branch hours as needed for Pain (scale 1-3). acetaminoph 2021- No [id number] 650mg Take 2 [facility] en 325 mg 4-16 04-17 tablets by ity of tablet 00:00: 04:59 mouth [place] 00 :00 every 6 Medical (six) Branch hours as needed for Pain (scale 1-3). acetaminoph 2021- No [id number] 650mg Take 2 [facility] en 325 mg 4-16 04-17 tablets by ity of tablet 00:00: 04:59 mouth [place] 00 :00 every 6 Medical (six) Branch hours as needed for Pain (scale 1-3). acetaminoph 2021- No [id number] 650mg Take 2 [facility] en 325 mg 4-16 04-17 tablets by ity of tablet 00:00: 04:59 mouth [place] 00 :00 every 6 Medical (six) Branch hours as needed for Pain (scale 1-3). acetaminoph 2021- No [id number] 650mg Take 2 [facility] en 325 mg 4-16 04-17 tablets by ity of tablet 00:00: 04:59 mouth [place] 00 :00 every 6 Medical (six) Branch hours as needed for Pain (scale 1-3). acetaminoph 2021- No [id number] 650mg Take 2 [facility] en 325 mg 4-16 03-23 tablets by ity of tablet 00:00: 00:00 mouth [place] 00 :00 every 6 Medical (six) Branch hours as needed for Pain (scale 1-3). cloNIDine 2020-0 Yes .1mg Take 1 Univer s 0.1 mg 2-04 tablet by ity of tablet 00:00: mouth [place] 00 daily. Medical Branch cloNIDine 2020-0 Yes .1mg Take 1 Univer s 0.1 mg 2-04 tablet by ity of tablet 00:00: mouth [place] 00 daily. Medical Branch cloNIDine 2020-0 Yes .1mg Take 1 Univer s 0.1 mg 2-04 tablet by ity of tablet 00:00: mouth [place] 00 daily. Medical Branch cloNIDine 2020-0 Yes .1mg Take 1 Univer s 0.1 mg 2-04 tablet by ity of tablet 00:00: mouth [place] 00 daily. Medical Branch cloNIDine 2020-0 Yes .1mg Take 1 Univer s 0.1 mg 2-04 tablet by ity of tablet 00:00: mouth [place] 00 daily. Medical Branch cloNIDine 2021-0 Yes .1mg Take 1 Univer s 0.1 mg 2-04 tablet by ity of tablet 00:00: mouth [place] 00 daily. Medical Branch cloNIDine 1-0 Yes .1mg Take 1 Univer s 0.1 mg 2-04 tablet by ity of tablet 00:00: mouth [place] 00 daily. Medical Branch cloNIDine 1-0 Yes .1mg Take 1 Univer s 0.1 mg 2-04 tablet by ity of tablet 00:00: mouth [place] 00 daily. Medical Branch cloNIDine 1-0 Yes .1mg Take 1 Univer s 0.1 mg 2-04 tablet by ity of tablet 00:00: mouth [place] 00 daily. Medical Branch cloNIDine 2021-0 2022- No .1mg Take 1 Unive rs 0.1 mg 2-04 -23 tablet by ity of tablet 00:00: 00:00 mouth [place] 00 :00 daily. Medical Branch hydrOXYchlo 2020-0 Yes TK 1 T PO U nivers roQUINE 200 9-29 BID WF OR ity of mg tablet 00:00: [facility] Medical Branch hydrOXYchlo 2020-0 Yes TK 1 T PO U nivers roQUINE 200 9-29 BID WF OR ity of mg tablet 00:00: [facility] Medical Branch hydrOXYchlo 2020-0 Yes TK 1 T PO U nivers roQUINE 200 9-29 BID WF OR ity of mg tablet 00:00: [facility] Medical Branch hydrOXYchlo 2020-0 Yes TK 1 T PO U nivers roQUINE 200 9-29 BID WF OR ity of mg tablet 00:00: [facility] Medical Branch hydrOXYchlo 2020-0 Yes TK 1 T PO U nivers roQUINE 200 9-29 BID WF OR ity of mg tablet 00:00: [facility] Medical Branch hydrOXYchlo 2020-0 Yes TK 1 T PO U nivers roQUINE 200 9-29 BID WF OR ity of mg tablet 00:00: [facility] Medical Branch hydrOXYchlo 2020-0 Yes TK 1 T PO U nivers roQUINE 200 9-29 BID WF OR ity of mg tablet 00:00: [facility] Medical Branch hydrOXYchlo 2020-0 Yes TK 1 T PO U nivers roQUINE 200 9-29 BID WF OR ity of mg tablet 00:00: [facility] Medical Branch hydrOXYchlo 2020-0 Yes TK 1 T PO U nivers roQUINE 200 9-29 BID WF OR ity of mg tablet 00:00: [facility] Medical Branch hydrOXYchlo 2020-0 Yes TK 1 T PO U nivers roQUINE 200 9-29 BID WF OR ity of mg tablet 00:00: [facility] Medical Branch hydrOXYchlo 2020-0 Yes TK 1 T PO U nivers roQUINE 200 9-29 BID WF OR ity of mg tablet 00:00: [facility] Medical Branch hydrOXYchlo 2020-0 Yes TK 1 T PO U nivers roQUINE 200 9-29 BID WF OR ity of mg tablet 00:00: [facility] Medical Branch hydrOXYchlo 2020-0 Yes TK 1 T PO U nivers roQUINE 200 9-29 BID WF OR ity of mg tablet 00:00: [facility] Medical Branch hydrOXYchlo 2020-0 Yes 200mg Take 200 U nivers roQUINE 200 9-29 mg by ity of mg tablet 00:00: mouth 2 [place] [id number] ([facility]) Medical times [place] daily. hydrOXYchlo 2020-0 Yes 200mg Take 200 U nivers roQUINE 200 9-29 mg by ity of mg tablet 00:00: mouth 2 [place] [address] ([facility]) Medical times [place] daily. Immunizations Ordered Filled Immunization Date Status Comments [facility] e Immunization Name Name Influenza Virus 2018-01-24 Completed Universit y of Vaccine Quad .5 mL 00:00:00 [facility] 6+ MO Branch Influenza Virus 2018-01-24 Completed Universit y of Vaccine Quad .5 mL 00:00:00 [facility] 6+ MO Branch Influenza Virus 2018-01-24 Completed Universit y of Vaccine Quad .5 mL 00:00:00 [facility] 6+ MO Branch Influenza Virus 2018-01-24 Completed Universit y of Vaccine Quad .5 mL 00:00:00 [facility] 6+ MO Branch Influenza Virus 2018-01-24 Completed Universit y of Vaccine Quad .5 mL 00:00:00 [facility] 6+ MO Branch Influenza Virus 2018-01-24 Completed Universit y of Vaccine Quad .5 mL 00:00:00 [facility] 6+ MO Branch Influenza Virus 2018-01-24 Completed Universit y of Vaccine Quad .5 mL 00:00:00 [facility] 6+ MO Branch Influenza Virus 2018-01-24 Completed Universit y of Vaccine Quad .5 mL 00:00:00 [place] [facility] 6+ MO Branch Influenza Virus 2018-01-24 Completed Universit y of Vaccine Quad .5 mL 00:00:00 [place] [facility] 6+ MO Branch Influenza Virus 2018-01-24 Completed Universit y of Vaccine Quad .5 mL 00:00:00 [place] [facility] 6+ MO Branch Influenza Virus 2018-01-24 Completed Universit y of Vaccine Quad .5 mL 00:00:00 [place] [facility] 6+ MO Branch Influenza Virus 2018-01-24 Completed Universit y of Vaccine Quad .5 mL 00:00:00 [place] [facility] 6+ MO Branch Influenza Virus 2018-01-24 Completed Universit y of Vaccine Quad .5 mL 00:00:00 [place] [facility] 6+ MO Branch Influenza Virus 2018-01-24 Completed Universit y of Vaccine Quad .5 mL 00:00:00 [place] [facility] 6+ MO Branch Influenza Virus 2018-01-24 Completed Universit y of Vaccine Quad .5 mL 00:00:00 [place] [facility] 6+ MO Branch TDAP 2013-02-07 Completed University of 00:00:00 [facility] Branch TDAP 2013-02-07 Completed University of 00:00:00 [facility] Branch TDAP 2013-02-07 Completed University of 00:00:00 [facility] Branch TDAP 2013-02-07 Completed University of 00:00:00 [facility] Branch TDAP 2013-02-07 Completed University of 00:00:00 [facility] TDAP 2013-02-07 Completed University of 00:00:00 [facility] Branch TDAP 2013-02-07 Completed University of 00:00:00 [facility] Branch TDAP 2013-02-07 Completed University of 00:00:00 [facility] Branch TDAP 2013-02-07 Completed University of 00:00:00 [facility] Branch TDAP 2013-02-07 Completed University of 00:00:00 [facility] Branch TDAP 2013-02-07 Completed University of 00:00:00 [facility] Branch TDAP 2013-02-07 Completed University of 00:00:00 [facility] Branch TDAP 2013-02-07 Completed University of 00:00:00 [facility] TDAP 2013-02-07 Completed University of 00:00:00 [facility] TDAP 2013-02-07 Completed University of 00:00:00 [facility] Pneumococcal 2012-02-22 Completed University o f Polysaccharide, 00:00:00 [place] [facility] ical PPSV23 (PNEUMOVAX) Branch Pneumococcal 2012-02-22 Completed University o f Polysaccharide, 00:00:00 [place] Med ical PPSV23 (PNEUMOVAX) Branch Pneumococcal 2012-02-22 Completed University o f Polysaccharide, 00:00:00 [place] Med ical PPSV23 (PNEUMOVAX) Branch Pneumococcal 2012-02-22 Completed University o f Polysaccharide, 00:00:00 [place] Med ical PPSV23 (PNEUMOVAX) Branch Pneumococcal 2012-02-22 Completed University o f Polysaccharide, 00:00:00 [place] Med ical PPSV23 (PNEUMOVAX) Branch Pneumococcal 2012-02-22 Completed University o f Polysaccharide, 00:00:00 [place] Med ical PPSV23 (PNEUMOVAX) Branch Pneumococcal 2012-02-22 Completed University o f Polysaccharide, 00:00:00 [place] Med ical PPSV23 (PNEUMOVAX) Branch Pneumococcal 2012-02-22 Completed University o f Polysaccharide, 00:00:00 [place] Med ical PPSV23 (PNEUMOVAX) Branch Pneumococcal 2012-02-22 Completed University o f Polysaccharide, 00:00:00 [place] Med ical PPSV23 (PNEUMOVAX) Branch Pneumococcal 2012-02-22 Completed University o f Polysaccharide, 00:00:00 [place] Med ical PPSV23 (PNEUMOVAX) Branch Pneumococcal 2012-02-22 Completed University o f Polysaccharide, 00:00:00 [place] Med ical PPSV23 (PNEUMOVAX) Branch Pneumococcal 2012-02-22 Completed University o f Polysaccharide, 00:00:00 [place] Med ical PPSV23 (PNEUMOVAX) Branch Pneumococcal 2012-02-22 Completed University o f Polysaccharide, 00:00:00 [place] Med ical PPSV23 (PNEUMOVAX) Branch Pneumococcal 2012-02-22 Completed University o f Polysaccharide, 00:00:00 [place] Med ical PPSV23 (PNEUMOVAX) Branch Pneumococcal 2012-02-22 Completed University o f Polysaccharide, 00:00:00 [place] Med ical PPSV23 (PNEUMOVAX) Branch Influenza Virus 2010-11-07 Completed Universit y of Vaccine (3+ yrs) 00:00:00 [facility] Branch Influenza Virus 2010-11-07 Completed Universit y of Vaccine (3+ yrs) 00:00:00 [facility] Influenza Virus 2010-11-07 Completed Universit y of Vaccine (3+ yrs) 00:00:00 [facility] Influenza Virus 2010-11-07 Completed Universit y of Vaccine (3+ yrs) 00:00:00 [facility] Influenza Virus 2010-11-07 Completed Universit y of Vaccine (3+ yrs) 00:00:00 [facility] Influenza Virus 2010-11-07 Completed Universit y of Vaccine (3+ yrs) 00:00:00 [facility] Influenza Virus 2010-11-07 Completed Universit y of Vaccine (3+ yrs) 00:00:00 [facility] Influenza Virus 2010-11-07 Completed Universit y of Vaccine (3+ yrs) 00:00:00 [facility] Influenza Virus 2010-11-07 Completed Universit y of Vaccine (3+ yrs) 00:00:00 [facility] Influenza Virus 2010-11-07 Completed Universit y of Vaccine (3+ yrs) 00:00:00 [facility] Influenza Virus 2010-11-07 Completed Universit y of Vaccine (3+ yrs) 00:00:00 [facility] Influenza Virus 2010-11-07 Completed Universit y of Vaccine (3+ yrs) 00:00:00 [facility] Influenza Virus 2010-11-07 Completed Universit y of Vaccine (3+ yrs) 00:00:00 [facility] Influenza Virus 2010-11-07 Completed Universit y of Vaccine (3+ yrs) 00:00:00 [facility] Influenza Virus 2010-11-07 Completed Universit y of Vaccine (3+ yrs) 00:00:00 [facility] Pneumococcal 2006-11-14 Completed University o f Polysaccharide, 00:00:00 [place] [facility] PPSV23 (PNEUMOVAX) Branch Pneumococcal 2006-11-14 Completed University o f Polysaccharide, 00:00:00 [place] [facility] PPSV23 (PNEUMOVAX) Branch Pneumococcal 2006-11-14 Completed University o f Polysaccharide, 00:00:00 [place] [facility] PPSV23 (PNEUMOVAX) Branch Pneumococcal 2006-11-14 Completed University o f Polysaccharide, 00:00:00 [place] [facility] PPSV23 (PNEUMOVAX) Branch Pneumococcal 2006-11-14 Completed University o f Polysaccharide, 00:00:00 [place] [facility] PPSV23 (PNEUMOVAX) Branch Pneumococcal 2006-11-14 Completed University o f Polysaccharide, 00:00:00 [place] [facility] PPSV23 (PNEUMOVAX) Branch Pneumococcal 2006-11-14 Completed University o f Polysaccharide, 00:00:00 [place] [facility] PPSV23 (PNEUMOVAX) Branch Pneumococcal 2006-11-14 Completed University o f Polysaccharide, 00:00:00 [place] [facility] PPSV23 (PNEUMOVAX) Branch Pneumococcal 2006-11-14 Completed University o f Polysaccharide, 00:00:00 [place] [facility] PPSV23 (PNEUMOVAX) Branch Pneumococcal 2006-11-14 Completed University o f Polysaccharide, 00:00:00 [place] [facility] PPSV23 (PNEUMOVAX) Branch Pneumococcal 2006-11-14 Completed University o f Polysaccharide, 00:00:00 [place] [facility] PPSV23 (PNEUMOVAX) Branch Pneumococcal 2006-11-14 Completed University o f Polysaccharide, 00:00:00 [place] [facility] PPSV23 (PNEUMOVAX) Branch Pneumococcal 2006-11-14 Completed University o f Polysaccharide, 00:00:00 [place] [facility] PPSV23 (PNEUMOVAX) Branch Pneumococcal 2006-11-14 Completed University o f Polysaccharide, 00:00:00 [place] [facility] PPSV23 (PNEUMOVAX) Branch Pneumococcal 2006-11-14 Completed University o f Polysaccharide, 00:00:00 [place] [facility] PPSV23 (PNEUMOVAX) Branch Vital Signs Vital Name Observation Time Observation Value Comments Source Systolic blood 2021-05-19 16:40:00 134 mm[Hg] Univer sity of pressure [facility] Diastolic blood 2021-05-19 16:40:00 77 mm[Hg] [facility] Heart rate 2021-05-19 16:40:00 91 /min [facility] Body temperature 2021-05-19 16:40:00 36.11 [facility]ina [facility] 2021-05-19 16:40:00 18 /min [facility] Oxygen saturation in 2021-05-19 16:40:00 98 /min [facility] Arterial blood by [facility] Pulse oximetry Branch Body weight 2021-05-19 08:44:00 88.497 kg [facility] Branch BMI 2021-05-19 08:44:00 28.81 kg/m2 [facility] [place] [facility] Body height 2021-05-15 04:09:00 175.3 cm [facility] [place] [facility] Systolic blood 2021-04-30 16:06:00 124 mm[Hg] Univer sity of pressure [facility] [place] [facility] Diastolic blood 2021-04-30 16:06:00 71 mm[Hg] Unive rsity of pressure [facility] Heart rate 2021-04-30 16:06:00 70 /min [facility] [place] [facility] Body temperature 2021-04-30 16:06:00 36.5 Andreina Univ ersity of [place] [facility] Respiratory rate 2021-04-30 16:06:00 18 /min Univ ersity of [place] [facility] Oxygen saturation in 2021-04-30 16:06:00 98 /min University of Arterial blood by [place] [facility] [employer] Pulse oximetry Branch Body height 2021-04-23 14:31:00 172.7 cm [facility] [place] [facility] Body weight 2021-04-23 14:31:00 89.812 kg [facility] [place] [facility] BMI 2021-04-23 14:31:00 30.11 kg/m2 [facility] [place] [facility] Systolic blood 2021-04-22 13:54:00 138 mm[Hg] Univer sity of pressure [facility] [place] [facility] Diastolic blood 2021-04-22 13:54:00 69 mm[Hg] Unive rsity of pressure [facility] Heart rate 2021-04-22 13:54:00 90 /min [facility] [place] [facility] Body temperature 2021-04-22 13:54:00 36.33 Andreina Univ ersity of [place] [facility] Respiratory rate 2021-04-22 13:54:00 19 /min Univ ersity of [place] [facility] Oxygen saturation in 2021-04-22 13:54:00 100 /min University of Arterial blood by [place] giftee landry Pulse oximetry Branch Body height 2021-04-22 12:50:00 172.7 cm [facility] [place] [facility] Body weight 2021-04-22 12:50:00 89.9 kg [facility] [place] [facility] BMI 2021-04-22 12:50:00 30.11 kg/m2 [facility] [place] [facility] Systolic blood 2021-04-15 17:09:00 123 mm[Hg] Univer sity of pressure [facility] [place] [facility] Diastolic blood 2021-04-15 17:09:00 72 mm[Hg] Unive rsity of pressure [facility] [place] [facility] Respiratory rate 2021-04-15 17:09:00 18 /min Univ ersity of [place] [facility] Oxygen saturation in 2021-04-15 17:09:00 99 /min University of Arterial blood by [place] [employer] Pulse oximetry Branch Heart rate 2021-04-15 16:39:00 75 /min [facility] [place] [facility] Body temperature 2021-04-15 16:39:00 36 Andreina Univ ersity of [place] [facility] Body height 2021-04-15 14:54:00 175.3 cm [facility] [place] [facility] Body weight 2021-04-15 14:54:00 91.264 kg [facility] [place] [facility] BMI 2021-04-15 14:54:00 29.71 kg/m2 [facility] [place] [facility] Systolic blood 2021-04-15 14:54:00 147 mm[Hg] Univer sity of pressure [facility] [place] [facility] Diastolic blood 2021-04-15 14:54:00 67 mm[Hg] Unive rsity of pressure [facility] [place] [facility] Heart rate 2021-04-15 14:54:00 79 /min [facility] [place] [facility] Body temperature 2021-04-15 14:54:00 36.72 Andreina Univ ersity of [place] [facility] Respiratory rate 2021-04-15 14:54:00 18 /min Univ ersity of [place] [facility] Body height 2021-04-15 14:54:00 175.3 cm [facility] [place] [facility] Body weight 2021-04-15 14:54:00 91.264 kg [facility] [place] [facility] BMI 2021-04-15 14:54:00 29.71 kg/m2 [facility] [place] [facility] Oxygen saturation in 2021-04-15 14:54:00 100 /min University of Arterial blood by [place] giftee landry Pulse oximetry Branch Systolic blood 2021-03-20 14:15:00 136 mm[Hg] Univer sity of pressure [facility] [place] [facility] Diastolic blood 2021-03-20 14:15:00 78 mm[Hg] Unive rsity of pressure [facility] Heart rate 2021-03-20 14:15:00 83 /min [facility] Body height 2021-03-20 14:15:00 175.3 cm [facility] Body weight 2021-03-20 14:15:00 93.951 kg [facility] BMI 2021-03-20 14:15:00 30.59 kg/m2 [facility] Oxygen saturation in 2021-03-20 14:15:00 100 /min [facility] Arterial blood by [facility] Pulse oximetry [place] Procedures Procedure Date / Time Performing Source Performed Clinician COVID-19 (ID NOW RAPID TESTING) 2021-05-19 Sharmaine Sanders Juana Diaz of 15:59:00 Dania [facility] BASIC METABOLIC PANEL (NA, K, CL, 2021-05-16 [facility] of CO2, GLUCOSE, BUN, CREATININE, CA) 08:59:00 [facility] CBC WITH DIFF 2021-05-16 [facility] of 08:59:00 [facility] URINE CULTURE [facility] 18:03:00 [facility] FERRITIN SERUM 2021-05-15 [facility] of 09:30:00 [facility] VITAMIN B12, LEVEL 2021-05-15 [facility] of 09:30:00 [facility] FOLATE 2021-05-15 [facility] of 09:30:00 [facility] IRON PANEL 2021-05-15 [facility] of 09:30:00 [facility] KEPPRA (LEVETIRACETAM) 2021-05-15 [facility] y of 09:30:00 [facility] URINE DRUG (IMMUNOASSAY) - 2021-05-15 [facility] rsity of COMPREHENSIVE DRUG SCREEN 02:21:00 [facility] URINALYSIS 2021-05-15 Noel [place] of 02:21:[address] [facility] [address] ABDOMEN PELVIS WO CONTRAST 2021-05-14 Noel Richmond iversity of 23:15:[address] [facility] [address] THORAX WO CONTRAST 2021-05-14 Noel Richmond [place]ana Diaz of 23:15:[address] [facility] [address] CERVICAL SPINE WO CONTRAST 2021-05-14 Noel Richmond iversity of 23:07:[address] [facility] [address] HEAD WO CONTRAST 2021-05-14 Singer Noeliman Clark o f 23:07:02 [facility] LACTIC ACID WHOLE BLOOD 2021-05-14 [facility] 22:40:00 [facility] COMP. METABOLIC PANEL (93804) 2021-05-14 Noel Richmond iversity of 22:33:00 [facility] CBC WITH DIFF 2021-05-14 Singer [facility] of 22:33:00 [facility] CK-MB (WITHOUT INDEX) 2021-05-14 Singer [facility] of 22:33:00 [facility] CONSENT/REFUSAL FOR DIAGNOSIS AND 2021-05-14 [facility] of TREATMENT 21:50:36 Unassigned, No [facility] HOSPITAL ADMISSION 2021-05-14 [facility] of 05:01:00 Unassigned, No [facility] COVID-19 (ID NOW RAPID TESTING) 2021-04-30 George Escamilla [place] of 14:44:00 [facility] LAB ONLY COVID INTERPRETATION 2021-04-30 George Escamilla iversity of 14:44:00 [facility] MAGNESIUM 2021-04-27 [facility] of 08:17:00 [facility] BASIC METABOLIC PANEL (NA, K, CL, 2021-04-27 [facility] of CO2, GLUCOSE, BUN, CREATININE, CA) 08:17:00 [facility] MAGNESIUM 2021-04-26 [facility] of 09:51:00 [facility] BASIC METABOLIC PANEL (NA, K, CL, 2021-04-26 [facility] [place] of CO2, GLUCOSE, BUN, CREATININE, CA) 09:51:00 [facility] CBC WITH DIFF 2021-04-26 [facility] of 09:51:00 [facility] MAGNESIUM 2021-04-25 Leslie [facility] of 10:21:00 [facility] THYROID STIMULATING HORMONE 2021-04-25 [facility] of 10:21:00 [facility] BASIC METABOLIC PANEL (NA, K, CL, 2021-04-25 Leslie, [facility] University of CO2, GLUCOSE, BUN, CREATININE, CA) 10:21:00 [facility] CBC WITH DIFF 2021-04-25 Leslie, [facility] of 10:21:00 [facility] MAGNESIUM 2021-04-24 Leslie, [facility] of 07:15:00 [facility] BASIC METABOLIC PANEL (NA, K, CL, 2021-04-24 Leslie, [facility] of CO2, GLUCOSE, BUN, CREATININE, CA) 07:15:00 [facility] CBC WITH DIFF 2021-04-24 Leslie [facility] of 07:15:00 [facility] PHOSPHORUS 2021-04-23 [facility] of 19:56:00 [facility] MAGNESIUM 2021-04-23 [facility], [facility] of 19:56:00 [facility] BASIC METABOLIC PANEL (NA, K, CL, 2021-04-23 Leslie, [facility] of CO2, GLUCOSE, BUN, CREATININE, CA) 19:56:00 [facility] PHOSPHORUS 2021-04-23 [facility] of 19:56:00 [facility] MAGNESIUM 2021-04-23 [facility] of 19:56:00 [facility] BASIC METABOLIC PANEL (NA, K, CL, 2021-04-23 Leslie, [facility] of CO2, GLUCOSE, BUN, CREATININE, CA) 19:56:00 [facility] TRANSTHORACIC ECHO (TTE) COMPLETE 2021-04-23 Shahriar Rojas [place] of 14:31:45 [facility] TRANSTHORACIC ECHO (TTE) COMPLETE 2021-04-23 Shahriar Rojas [place] of 14:31:45 [facility] PHOSPHORUS 2021-04-23 [facility] of 11:12:00 [facility] MAGNESIUM 2021-04-23 Shahriar Rojas [place] of 11:12:00 [facility] BASIC METABOLIC PANEL (NA, K, CL, 2021-04-23 [facility] CO2, GLUCOSE, BUN, CREATININE, CA) 11:12:00 [facility] CBC WITH DIFF 2021-04-23 [facility] of 11:12:00 [facility] PHOSPHORUS 2021-04-23 [facility] of 11:12:00 [facility] MAGNESIUM 2021-04-23 [facility] of 11:12:00 [facility] BASIC METABOLIC PANEL (NA, K, CL, 2021-04-23 [facility] of CO2, GLUCOSE, BUN, CREATININE, CA) 11:12:00 [facility] CBC WITH DIFF 2021-04-23 [facility] of 11:12:00 [facility] PHOSPHORUS 2021-04-23 [facility] of 00:26:00 [facility] MAGNESIUM 2021-04-23 [facility] of 00:26:00 [facility] TROPONIN I 2021-04-23 [facility] of 00:26:00 [facility] BASIC METABOLIC PANEL (NA, K, CL, 2021-04-23 Escamilla [facility] CO2, GLUCOSE, BUN, CREATININE, CA) 00:26:00 [facility] PHOSPHORUS 2021-04-23 [facility] of 00:26:00 [facility] MAGNESIUM 2021-04-23 [facility] of 00:26:00 [facility] TROPONIN I 2021-04-23 [facility] of 00:26:00 [facility] BASIC METABOLIC PANEL (NA, K, CL, 2021-04-23 Francine [facility] CO2, GLUCOSE, BUN, CREATININE, CA) 00:26:00 [facility] HB ECG ROUTINE & RHYTHM STRIP 2021-04-23 George Escamilla Un iversity of 00:16:05 [facility] CBC WITH DIFF 2021-04-22 Joseph [facility] of 21:46:00 [facility] CBC WITH DIFF 2021-04-22 [facility] of 21:46:00 [facility] SURGICAL PATHOLOGY EXAM 2021-04-22 Joseph [facility] of 20:24:00 [facility] TRANSFUSE PACKED RBC 2021-04-22 [facility] of 19:02:00 [facility] TRANSFUSE PACKED RBC 2021-04-22 Donald [facility] of 19:02:00 [facility] ABG+COOX+NA+K+GLU+CA2+ 2021-04-22 Ludmila Tavaresit y of 18:05:00 [facility] COMP. METABOLIC PANEL (11331) 2021-04-22 Ludmila Tavares iversity of 15:55:00 [facility] CBC WITH DIFF 2021-04-22 Joseph Ludmilasean Clark of 15:55:00 [facility] COMP. METABOLIC PANEL (62123) 2021-04-22 Ludmila Tavares iversity of 15:55:00 [facility] CBC WITH DIFF 2021-04-22 Joseph Ludmila Ju[place] Diaz of 15:55:00 [facility] PREPARE PACKED RBC 2021-04-22 , [facility] of 15:47:25 [facility] PREPARE PACKED RBC 2021-04-22 , [facility] of 15:47:25 [facility] INTUBATION 2021-04-22 [facility] of 15:18:00 [facility] ARTERIAL LINE 2021-04-22 [facility] of 15:04:01 [facility] ROBOTIC ASSISTED LAPAROSCOPIC 2021-04-22 Ludmila Tavares iversity of COLOSTOMY REVERSAL 14:37:00 [facility] ROBOTIC ASSISTED LAPAROSCOPIC 2021-04-22 Ludmila Tavares iversity of COLOSTOMY REVERSAL 14:37:00 [facility] HB ABO GROUPING 2021-04-22 [facility] of 13:30:00 [facility] HB ABO GROUPING 2021-04-22 [facility] of 13:30:00 [facility] POCT GLUCOSE (AUTOMATED) 2021-04-22 Ludmila Tavares ity of 13:27:00 [facility] POCT GLUCOSE (AUTOMATED) 2021-04-22 Ludmila Tavares itirineo of 13:27:00 [facility] COVID-19 (ID NOW RAPID TESTING) 2021-04-22 Ludmila Tavares of 12:31:00 [facility] LAB ONLY COVID INTERPRETATION 2021-04-22 Ludmila Tavares iversity of 12:31:00 [facility] COVID-19 (ID NOW RAPID TESTING) 2021-04-22 Ludmila Tavares University of 12:31:00 [facility] LAB ONLY COVID INTERPRETATION 2021-04-22 Ludmila Tavares Un iversity of 12:31:00 [facility] HOSPITAL ADMISSION 2021-04-22 [facility] of 05:01:00 Unassigned, No [facility] EGD (ENDO) 2021-04-15 [facility] of 16:13:51 [facility] EGD (ENDO) 2021-04-15 [facility] of 16:13:51 [facility] ESOPHAGOGASTRODUODENOSCOPY 2021-04-15 Shaista Guerra Uni versity of 16:10:00 [facility] ASSIGNMENT OF BENEFITS 2021-04-15 [facility] 14:42:21 Unassigned, No [facility] Name Branch CONSENT/REFUSAL FOR DIAGNOSIS AND 2021-04-13 [facility] of TREATMENT 19:21:24 Unassigned, No [place] [facility] CONSENT/REFUSAL FOR DIAGNOSIS AND 2021-04-13 [facility] of TREATMENT 19:21:24 Unassigned, No [place] [facility] ASSIGNMENT OF BENEFITS 2021-04-13 Doctor Universit y of 19:21:03 Unassigned, No [place] [facility] ASSIGNMENT OF BENEFITS 2021-04-13 Doctor Universit y of 19:21:03 Unassigned, No [place] [facility] DISCLOSURE AND CONSENT, MEDICAL 2021-03-20 [facility] of AND SURGICAL PROCEDURES 06:01:00 Unassigned, No [facility] dical Name Branch DISCLOSURE AND CONSENT, MEDICAL 2021-03-20 [facility] AND SURGICAL PROCEDURES 06:01:00 Unassigned, No [place] Mo dical Name Branch Encounters Start End Encounter Admission Attending Care Care Encounter Source Date/Time Date/Time Type Type Clinicians Facility Department ID 2021-06-30 2021-06-30 Outpatient Raya TAVARES [facility] [id number] Univers 15:30:00 15:30:00 [id number] 2021-[facility]-26 2021-06-26 Outpatient Raya FENG [facility] [id number] Univers 10:00:00 10:00:00 DIANNA [facility] 2021-06-26 2021-06-26 Outpatient R PING, [facility] [id number] Univers 10:00:00 10:00:00 [id number] 2021-05-20 2021-05-20 Transition AMY Ramsay [id number] Univers 00:00:00 00:00:00 of [place] FERNANDA [id number] it y of [place]HO[place] [id number] [facility] [phone] [facility] 403 Branch 2021-05-19 2021-05-19 Outpatient R JOSEPH, [facility] [id number] Univers 16:30:00 16:30:00 LUDMILA [id number] [facility] 2021-05-19 2021-05-19 [facility] [id number] Univers 16:30:00 16:30:00 LUDMILA [facility] 2021-05-14 2021-05-19 [facility] AM[facility] [id number] Univers 17:03:00 15:35:00 [facility] 2021-05-14 2021-05-19 Emergency Noel Richmond [facility] 1.2.840. [id number] Univers 17:03:00 15:35:00 Tom Lopez [id number] ity of Adri Guzman [id number] [facility] [id number] [facility] 081 Branch 2021-05-12 2021-05-12 Outpatient R JOSEPH, [facility] [id number] Univers 16:15:00 16:15:00 LUDMILA [id number] [facility] 2021-05-12 2021-05-12 [facility] [id number] Univers 16:15:00 16:15:00 [facility] 2021-05-11 2021-05-11 [facility] 1.2.840.114 [id number] Univers 00:00:00 00:00:00 Franklyn ROTHMAN [id number] ity [facility] [id number] [place] [id number] Mo dical NAL 092 Branch [facility] 2021-05-08 2021-05-08 Outpatient Raya TAVARES [facility] [id number] Univers 11:00:00 11:00:00 LUDMILA [id number] ity [facility] 2021-05-08 2021-05-08 Outpatient Raya TAVARES [facility] [id number] Univers 11:00:00 11:00:00 LUDMILA ity [facility] 2021-05-08 2021-05-08 Telephone SHARAD Tavares 1.2.840.114 [id number] Univers 00:00:00 00:00:00 Ludmila [facility] [id number] i ty of [facility] [id number] [place] [id number] [facility] 408 Branch 2021-04-22 2021-04-30 Inpatient Raya [facility] AMARI [id number] Univers 07:01:00 17:49:00 LUDMILA ity [facility] 2021-04-22 2021-04-30 Hospital VERNON Tavares 1.2.840.114 [id number] Univers 07:01:00 17:49:00 Encounter Ludmila CLARK [id number] ity of [facility] [id number] Mehdi as [id number] [facility] 098 Branch 2021-04-22 2021-04-22 Anesthesia Alta Ma 1.2.8 40.114 [id number] Univers 10:03:00 16:40:00 Event Bhumika Jameyshreya CLARK [id number] 0 ity of HOSPITAL [id number] Mehdi as [id number] [facility] 103 Branch 2021-04-22 2021-04-22 Surgery VERNON Tavares 1.2.840.114 [id number] Univers 09:00:00 15:30:00 Ludmila CLARK [id number] it y of [facility] [id number] Mehdi as [id number] [facility] 103 Branch 2021-04-22 2021-04-22 Orders Doctor SUNIL 1.2.840.114 [id number] Univers 00:00:00 00:00:00 Only Unassigned, EDUARDO [id number] ity of [facility] [id number] Mehdi as [id number] [facility] 009 Branch 2021-04-20 2021-04-20 Outpatient [facility] [id number] Univers 15:00:00 15:00:00 [id number] ity of [facility] 2021-04-15 2021-04-15 Outpatient R [facility] GIE [id number] Univers 08:43:00 11:49:00 SHAISTA ity of [facility] 2021-04-15 2021-04-15 Hospital [facility] 1.2.840.114 [id number] Univers 08:43:00 11:49:00 Encounter Shasita ICAL [id number] ity of SCIENCES [id number] Mehdi as BLDG [id number] [facility] 020 Branch 2021-04-15 2021-04-15 Surgery [facility] 1.2.840.114 [id number] Univers 09:45:00 10:15:00 Shaista ICAL [id number] it y of SCIENCES [id number] Mehdi as BLDG [id number] [facility] 020 Branch 2021-04-15 2021-04-15 Orders Doctor BARBER 1.2.840.114 [id number] Univers 00:00:00 00:00:00 Only Unassigned, EDUARDO [id number] ity of [facility] [id number] Mehdi as [id number] [facility] 009 Branch 2021-04-13 2021-04-13 Laboratory Only, Adc Test [facility] 1.2.840. 114 [id number] Univers 13:00:00 13:15:00 Only Ludmila Tavares [id number] ity of Shaista Guerra [id number] [facility] [id number] [facility] 353 Branch 2021-04-13 2021-04-13 Outpatient R [facility] [id number] Univers 13:00:00 13:00:00 [id number] [facility] 2021-04-13 2021-04-13 Outpatient R MARI [facility] [id number] Univers 13:00:00 13:00:00 SHAISTA [facility] 2021-04-06 2021-04-06 [facility] [id number] Univers 00:00:00 00:00:00 [facility] [id number] it y of [place] [id number] [place] - [id number] Med ical [facility] [address] [place] 2021-03-20 2021-03-20 [facility] [id number] Univers 11:45:00 13:07:24 [facility] 2021-03-20 2021-03-20 Office [facility] 1.2.840.114 [id number] Univers 08:00:00 09:14:53 Visit [facility] [id number] i ty [facility] [id number] [facility] [id number] Mo dical NAL 059 Branch [facility] 2021-03-18 2021-03-18 [facility] [id number] Univers 09:06:05 23:59:00 LUDMILA [facility] 2021-02-14 2021-02-18 Inpatient X [facility] [facility] [id number] [employer] 17:09:00 16:05:00 [facility] Results Test Description Test Time Test Comments Results Result Comments Source Basic Metabolic Panel (NA, K, CL, CO2, GLUCOSE, BUN, 2021-05 10:04:01 CREATININE, [place]) Test Item Value Reference Range Interpretation Comme nts NA (test code = 7424029708) 136 mmol/L 135-145 K (test code = 5132647102) 3.6 mmol/L 3.5-5.0 CL (test code = 3911223084) 100 mmol/L 98-108 CO2 TOTAL (test code = 1790281735) 23 mmol/L 23-31 AGAP (test code = 0879457959) 2-16 BUN (test code = 8587128604) 4 mg/dL 7-23 L GLUCOSE (test code = 4365542768) 112 mg/dL 70-110 H CREATININE (test code = 0.49 mg/dL 0.50-1.04 L 0013752118) CALCIUM (test code = 5505680814) 9.3 mg/dL 8.6-10.6 eGFR (test code = 8493684701) mL/min/1.73m2 ELENI (test code = ELENI) Association of Glomerular Filtration Rate (GFR) and Staging of Kidney Disease* + +-------- + ------+| GFR (mL/min/1.73 m2) ?| With Kidney Damage ?| ?Without Kidney Damage+ +-- + +| ?>90 ?| ?Stage one ?| ? Normal ?+ +------- + -------+| ?60-89 ?| ?Stage two ?| ? Decreased GFR ? + +-------- + ------+| ?30-59 ?| ?Stage three ?| ? Stage three ? + +-------- + ------+| ?15-29 ?| ?Stage four ? | ? Stage four ?+ +------- + -------+| ?<15 (or dialysis) ? ?| ?Stage five ? | ? Stage five ?+ +------- + -------+ *Each stage assumes the associated GFR level has been in effect for at least three months. ?Stages 1 to 5, with or without kidney disease, indicate chronic kidney disease. Notes: Determination of stages one and two (with eGFR >59mL/min/1.73 m2) requires estimation of kidney damage for at least three months as defined by structural or functional abnormalities of the kidney, manifested by either:Pathological abnormalities or Markers of kidney damage (including abnormalities in the composition of the blood or urine or abnormalities in imaging tests). Lab Interpretation (test code = Abnormal 76494-4) [facility] with Thspdpddlcis3906-07-27 10:03:41 Test Item Value Reference Range Interpretation Comments WBC (test code = See_Comment [Automated 8390-2) message] The sy stem which generated this result transmitted reference range : 4.30 - 11.10 10*3/?L. The reference range was not used to interpret this result as normal/abnormal . RBC (test code = See_Comment [Automated 789-8) message] The sy stem which generated this result transmitted reference range : 3.93 - 5.25 10*6/?L. The reference range was not used to interpret this result as normal/abnormal . HGB (test code = 9.9 g/dL 11.6-15.0 L 718-7) HCT (test code = 32.3 % 35.7-45.2 L 4544-3) MCV (test code = 77.5 fL 80.6-95.5 L 787-2) MCH (test code = 23.7 pg 25.9-32.8 L 785-6) MCHC (test code = 30.7 g/dL 31.6-35.1 L 786-4) RDW-SD (test code = 54.9 fL 39.0-49.9 H 52226-8) RDW-CV (test code = 20.1 % 12.0-15.5 H 788-0) PLT (test code = See_Comment [Automated 777-3) message] The sy stem which generated this result transmitted reference range : 166 - 358 10*3/ ?L. The reference r chayo was not used to interpret this result as normal/abnormal . MPV (test code = 9.9 fL 9.5-12.9 83314-0) NRBC/100 WBC (test See_Comment [Automat ed code = 8537852158) message] The system which generated this result transmitted reference range : 0.0 - 10.0 /100 WBCs. The refer ence range was not u sed to interpret th is result as normal/abnormal . NRBC x10^3 (test code <0.01 See_Comment [Auto mated = 4533433763) message] The s ystem which generated this result transmitted reference range : 10*3/?L. The reference range was not used to interpret this result as normal/abnormal . GRAN MAT (NEUT) % 65.2 % (test code = 770-8) IMM GRAN % (test code 0.50 % = 9911542253) LYMPH % (test code = 15.7 % 736-9) MONO % (test code = 12.8 % 5905-5) EOS % (test code = 5.2 % 713-8) BASO % (test code = 0.6 % 706-2) GRAN MAT x10^3(ANC) 5.03 10*3/uL 1.88-7.09 (test code = 2662313975) IMM GRAN x10^3 (test 0.04 10*3/uL 0.00-0.06 code = 9204904722) LYMPH x10^3 (test code 1.21 10*3/uL 1.32-3.29 L = 731-0) MONO x10^3 (test code 0.99 10*3/uL 0.33-0.92 H = 742-7) EOS x10^3 (test code = 0.40 10*3/uL 0.03-0.39 H 711-2) BASO x10^3 (test code 0.05 10*3/uL 0.01-0.07 = 704-7) Lab Interpretation Abnormal (test code = 71998-0) [facility] [id number] 00:17:09 Test Item Value Reference Range Interpretation Comments VIT B12 (test code = 919 pg/mL 240-930 0818194811) ELENI (test code = ELENI) Biotin has been reported to cause a positive bias, interpret results relative to patient's use of biotin. Lab Interpretation (test Normal code = 99542-6) [facility] 22:36:34 Test Item Value Reference Range Interpretation Comments FOLATE SER (test code = 7137602281) >20.0 3.0-20.0 H Lab Interpretation (test code = Abnormal 55218-8) [facility]ERR[facility]IN [id number] 21:52:57 Test Item Value Reference Range Interpretation Comments FERRITIN (test code = 18.9 ng/mL 11.0-264.0 2250475828) ELENI (test code = ELENI) Biotin has been reported to cause a negative bias, interpret results relative to patient's use of biotin. Lab Interpretation (test Normal code = 68760-3) [facility] AreaIRON [id number] 21:26:53 Test Item Value Reference Range Interpretation Comments IRON (test code = 39 ug/dL 50-160 L Slight hem olysis 0847685354) TIBC (test code = 371 ug/dL 250-410 5504382101) % FE SAT (test code = 11 % 20-50 L 5375318115) Lab Interpretation (test Abnormal code = 50735-3) [facility] AreaKEPPRA (LEVETIRACETAM)2021-05-15 15:20:59 Test Item Value Reference Range Interpretation Comments KEPPRA (test code = 10 ug/mL 12-46 L 6668818253) ELENI (test code = ELENI) Therapeutic range: 12-46 ?g/mL ? ?Toxic: Not well established.Test developed and characteristics determined by [facility]. Lab Interpretation Abnormal (test code = 12435-8) [facility] (WITHOUT INDEX)2021-05-14 23:07:09 Test Item Value Reference Range Interpretation Comments CK-MB (test code = 1.65 ng/mL See_Comment [Automat ed 3590523893) message] The system which generated this result transmitted reference range : <=3.50. The reference range was not used to interpret this result as normal/abnormal . ELENI (test code = ELENI) Biotin has been reported to cause a negative bias, interpret results relative to patient's use of biotin. Lab Interpretation Normal (test code = 14549-0) [facility]. METABOLIC PANEL (47375)2021-05-14 22:58:45 Test Item Value Reference Range Interpretation Comments NA (test code = 135 mmol/L 135-145 9600522635) K (test code = 3.8 mmol/L 3.5-5.0 2926418664) CL (test code = 101 mmol/L 98-108 8876601094) CO2 TOTAL (test code = 23 mmol/L 23-31 2902755347) AGAP (test code = 2-16 9207285917) BUN (test code = 7 mg/dL 7-23 4781595072) GLUCOSE (test code = 123 mg/dL 70-110 H 7752389741) CREATININE (test code = 0.50 mg/dL 0.50-1.04 1861622583) TOTAL BILI (test code = 0.6 mg/dL 0.1-1.2 2481690103) CALCIUM (test code = 9.0 mg/dL 8.6-10.6 3574514675) T PROTEIN (test code = 6.7 g/dL 6.3-8.2 5138626976) ALBUMIN (test code = 4.1 g/dL 3.5-5.0 9555530242) ALK PHOS (test code = 69 U/L 34-122 6789450810) ALTv (test code = 20 U/L 5-35 1742-6) AST(SGOT) (test code = 34 U/L 13-40 6780059902) eGFR (test code = mL/min/1.73m2 6420256997) ELENI (test code = ELENI) Association of Glomerular Filtration Rate (GFR) and Staging of Kidney Disease* + --+ --+ ------+| GFR (mL/min/1.73 m2) ?| With Kidney Damage ?| ?Without Kidney Damage+ --------+ --------+ +| ?>90 ?| ?Stage one ?| ? Normal ?+ ---+ ---+ -------+| ?60-89 ?| ?Stage two ?| ? Decreased GFR ? + --+ --+ ------+| ?30-59 ?| ?Stage three ?| ? Stage three ? + --+ --+ ------+| ?15-29 ?| ?Stage four ? | ? Stage four ?+ ---+ ---+ -------+| ?<15 (or dialysis) ? ?| ?Stage five ? | ? Stage five ?+ ---+ ---+ -------+ *Each stage assumes the associated GFR level has been in effect for at least three months. ?Stages 1 to 5, with or without kidney disease, indicate chronic kidney disease. Notes: Determination of stages one and two (with eGFR >59mL/min/1.73 m2) requires estimation of kidney damage for at least three months as defined by structural or functional abnormalities of the kidney, manifested by either:Pathological abnormalities or Markers of kidney damage (including abnormalities in the composition of the blood or urine or abnormalities in imaging tests). Lab Interpretation Abnormal (test code = 73496-0) [facility] Whole [id number] 22:46:47 Test Item Value Reference Range Interpretation Comments LACTIC ACID (test code = 0.97 mmol/L 0.50-2.20 5242639297) Lab Interpretation (test code = Normal 54868-0) [facility] WITH [id number] 22:45:21 Test Item Value Reference Range Interpretation Comments WBC (test code = See_Comment [Automated 6690-2) message] The sy stem which generated this result transmitted reference range : 4.30 - 11.10 10*3/?L. The reference range was not used to interpret this result as normal/abnormal . RBC (test code = See_Comment L [Automated 789-8) message] The sy stem which generated this result transmitted reference range : 3.93 - 5.25 10*6/?L. The reference range was not used to interpret this result as normal/abnormal . HGB (test code = 8.9 g/dL 11.6-15.0 L 718-7) HCT (test code = 29.3 % 35.7-45.2 L 4544-3) MCV (test code = 77.7 fL 80.6-95.5 L 787-2) MCH (test code = 23.6 pg 25.9-32.8 L 785-6) MCHC (test code = 30.4 g/dL 31.6-35.1 L 786-4) RDW-SD (test code = 53.1 fL 39.0-49.9 H 14087-4) RDW-CV (test code = 19.4 % 12.0-15.5 H 788-0) PLT (test code = See_Comment [Automated 777-3) message] The sy stem which generated this result transmitted reference range : 166 - 358 10*3/ ?L. The reference r chayo was not used to interpret this result as normal/abnormal . MPV (test code = 9.5 fL 9.5-12.9 56945-5) NRBC/100 WBC (test See_Comment [Automat ed code = 9680675799) message] The system which generated this result transmitted reference range : 0.0 - 10.0 /100 WBCs. The refer ence range was not u sed to interpret th is result as normal/abnormal . NRBC x10^3 (test code <0.01 See_Comment [Auto mated = 3104827460) message] The s ystem which generated this result transmitted reference range : 10*3/?L. The reference range was not used to interpret this result as normal/abnormal . GRAN MAT (NEUT) % 68.3 % (test code = 770-8) IMM GRAN % (test code 0.30 % = 9733691133) LYMPH % (test code = 16.0 % 736-9) MONO % (test code = 11.0 % 5905-5) EOS % (test code = 3.7 % 713-8) BASO % (test code = 0.7 % 706-2) GRAN MAT x10^3(ANC) 5.94 10*3/uL 1.88-7.09 (test code = 5025971850) IMM GRAN x10^3 (test 0.03 10*3/uL 0.00-0.06 code = 3100628022) LYMPH x10^3 (test code 1.39 10*3/uL 1.32-3.29 = 731-0) MONO x10^3 (test code 0.96 10*3/uL 0.33-0.92 H = 742-7) EOS x10^3 (test code = 0.32 10*3/uL 0.03-0.39 711-2) BASO x10^3 (test code 0.06 10*3/uL 0.01-0.07 = 704-7) Lab Interpretation Abnormal (test code = 25893-6) [facility]COOX+NA+K+GLU+CA2+2021-04-30 00:42:27 Test Item Value Reference Range Interpretation Comments PH (test code = 2) 7.35-7.45 L PCO2 (test code = See_Comment [Automat ed message] 6322287544) The system [employer] generated this result transmit jung reference range : 35 - 45 mmHg. The reference range was not used to interpret this result as normal/abnormal . PO2 (test code = See_Comment H [Automated message] 1725736249) The system [employer] generated this result transmit jung reference range : 80 - 100 mmHg. The reference range was not used to interpret this result as normal/abnormal . HCO3 (test code = See_Comment L [Automate d message] 8624969268) The system [employer] generated this result transmit jung reference range : 22 - 26 mEq/L. The reference range was not used to interpret this result as normal/abnormal . BE (test code = See_Comment L [Automated message] 7001229743) The system [employer] generated this result transmit jung reference range : -3.0 - 3.0 mEq/ L. The reference r chayo was not used to interpret this result as normal/abnormal . THB (test code = 8.1 g/dL 12.0-16.0 LL 1229582126) %O2HB (test code = 97.5 % 94.0-99.0 2056888981) %COHB ART (test code = 1.6 % 0.0-1.5 H 6439288020) %METHB ART (test code = 0.3 % 0.4-1.5 L 7458415653) VOL%O2 ART (test code = 11.7 % 15.0-23.0 L QUES 5169842258) NA (test code = 136 mmol/L 135-145 5337284544) K+ (test code = 3.3 mmol/L 3.5-5.0 L 5080249438) AC CA IONZ (test code = 4.50 mg/dL 4.50-5.30 4562281372) GLUCOSE (test code = 128 mg/dL 70-110 H 7079932695) Lab Interpretation Abnormal (test code = 03245-8) [facility] [id number] 19:41:55 Test Item Value Reference Range Interpretation Comments Case Report (test code Surgical Pathology ? ? = 5529638940) ?Case: [id number] ? Authorizing Provider: ?Ludmila Tavares MD ?Collected: ? 04/22/2021 1524 ?Ordering Location: ? ? [facility] OR ? Received: ?04/23/2021722 ? Department ? Pathologist: ? Olayinka, Azalea, ? Specimens: ? A) - COLON, DESCENDING COLON WITH RECTUM ? B) - COLON, ANASTOMOSIS DONUTS ? Final Diagnosis (test k1zngLTsIQWad5nuMGMfeC code = 0167822808) FuZzEwMzNcZnRuYmpcdWMx IHtccnRmMVxlcGljOTYwMV ukrkUuPAXzdOJnV9Cmlsgw TVlxEL4cDE7igUbgvUFvjM CqQLIbDqFtd7efo254eNOl f3ezWRWDrkmeuFd4hCzmL5 8vo3K1YfvrX94veNNnPFW2 TOThCSSujYVuOVEfHOR7NO ZlbMDsJ4lqOQNiBO5yxfdf JDowTOlnWWDkqXF9KKFwqC DlJ8ZzFIQuCUcgQUTftys4 ZxBoNj7kuZWfnJbcWYwrPI JkXHBsYWluXGZzMjBccGFy OQPsSJBDDE4WOQLDHEAVRW 0LKX4XJPKNTHGFWBEXEZ7z IOSRO1LSKTrOAovzvIJtQC ZxVLZeUQSRHD1MC46cQ76M T40NGmPHVIQSTJRmQ0pQWP WCOpUPKCvBYOJZV5WAIVIL SPIBS9mHF4bEPSluO3sDWb lYXCArdvvzWTCiSd4vD86K T20qPJPDUKJFN17YOAtXHC LMJxIVUmtqMuYNFNQUSZ4A OlxwYXIgICAgICAtIEJFTk lFOiVSQ5xRJenWJUICU5GX KFZZKPKDVO0BEQTTG49YIi sXYX6IIZTRIKeVTQ2FHJKD SZRHRMOVE3JjbEAiEXXdab xmczIyIExpbmRzYXkgQmln zMQbCJJDLuMqVQDsr1CqV3 YseYWcfYDopIZvLr0vHQ3m MEIqSILuc3ZfH6CpBTttmD NedtbwxgZhXQMnLEn5SOKV BBoeGCEbKvSrMXbsQNT9t0 xydGYxXHNzdGVjZjIyMDAw IRStz3xrYZYfjBWfIgMpZy NcZnRuYmpcdWMxXGRlZmYw s5tqg977dZGnq7kbOCUfHc Q2iOXpMQOwtLrvfmt5jZjp XjJxKMCls2hcyiOzQeLaOG YsKMMuSYHfpKWjZ244RXYh CAkfe8kth6IiYMHbfRYmq7 M5BKDXPIfaWsAcR756m6rw x9kwiaEqnJI7ZVAaELS2JD cwfhZfxtK1QOpfdHUqNsU2 IDtccmVkMFxncmVlbjBcYm w7MCDlG808EFS3lQcti3by WYB5VXShSYHuBbwpPz2nkQ HkS373PTGtEZTBGDNupAo1 MOLhwpLbdwJcnQBDe962D3 46l8ubPPApjeXlbFsUvarw t8gxO460OFFbpCFfxxFyKw BfVYKubLOdnQL4CDObCC3k zbymDWcsHQwaQPIoklI4FO ZlvREwR6NeZGGeDT0ixfgd BHI5SAwnKVSvJLI5DgZwBM Zle7Pdjmo6LgXipm1odq86 EAC4b4XnsFfzAAG2QQU8Up JxDg0hpKLaCMPwMP0xVnKv lTCeJHDgwe06pWcrBJudws CohU3oBmDtFCMesZOePDMy AR7vaLQfSYFvwM7ihoddKM BnYnJkcmhlYWRccGdicmRy Wt8loZjyTLX5WSexJ3mnaX 9uErA7CDotB4qwiX6nBVm7 NCrjvWF0LKWjxD0bWK2mhu mop2luYDkhLAloNCKpckN9 nrJ5XXCahUKvW5AedW2lPB LuXI9xwabbp7qzUWC6KMcl YRIdVTW1IwQqTPRro1Vlvy d1OzBdb6RhzOMzRNhhM46c a125YBVfnxAoY6gcqMXghq lkiAJnkfypACsrseE0PDQt XHBsYWluXGYxXGZzMjBcbG FuZzEwMzNcaGljaFxmMVxk KaPxBQRmWKxmX8cyHvNtU2 YyXGZzMjBccGFyIEkgaGF2 COCtHYOvv01bfDd9WXZyme gxr3DmQRHfpWAtbSYszA6a ikZsg6iiUQLcNFQqUWDgT4 NaJUM5jCCrJEFneAYhaLH2 ZN0xdzOkGW8kBLQxVzqrev XehYSdgrKlWETsMSmko4on TN4lVZDraMjwpF3jhYX2XW Ome3qbaTNcbKEec7ijn0Ig bmFtZShzKSBtYXkgYXBwZW UsGW1jNZTefRNvdrTwa1W0 FurdfTReoutvNpfrtvE1CQ tmtkgxSEGoIVwmC0yeCrMj YIQseBudGhagt4YlVHAjCL ZzMjhccGFyfX0= Clinical Information Parastomal hernia (test code = without obstruction or 8921830775) gangrene [K43.5]Colostomy in place [Z93.3] Gross Description (test x5jgePBxSJJnqCMTWHVgRc code = 1887881116) hkcyWzUHPrcNLcK0Gfexux JBxqIB7qTP4yjNrjtKPzyR DyBS3RVNRgLvSyKXVwgQYb clLsEwUeXXSkqWBxhOQ4BX WbXF1cwmtxKOgkUCjgPDZt clB9BPXkrQGlV3BuCBNbGR 5eelyoCNC4VOdbfL0oclAE YhzvGf0pcWJzjIqbOgJuYs NoYXJzZXQwXGZuaWwgQXJp CXd9oO1UVfjeBHV6AFVRRd ksBZMcIR0Lo8inEIDbaRPg SAX2HEmqfYZlCPTsDATfKE u7OJYuNAqhcMInZV7gbZxc CgpxbMvlb0NvdVEzJJgkEU SeMILhWIdwRSEeGJ6BOtTe SFeCLZAmTsp3RvB3PEz8EN PIHtLbNzBpYVsjCBQ5VgCu TMj0EMe4KRfTCuCmCLmbHw Z3VVHkOTW7GtT3XVafvDCc IFxcZiBBcmlhbCBcXGZzID SbIGjfJzkkKTrbU67pbRpp jP4kOfKsEZWESJOFEZ6URr BBXHBhciANClxwbGFpblxl cGljTmVzdERvYzEgDQpcbH RycGFyXGxpbjBccmluMCAN ClxsdHJjaFxmczIyIFNwZW NpbWVuIEEgaXMgcmVjZWl2 HWYhVdPzf2nigQGdLWltTT A4nZWcDQOgJFMxDHVxFM14 P9XgzdNbAFelVNpdjnEkHi PnGAHyPTKqA3SqMKesTkJt j4hfprI0lUMtUQWnQ6L6zX RlOBBnSUQuv91aiFY0nqFf HtQaJFJoS98pkrWab4YyqB EwZ1OjPy48AEkaIBVwGVJq vJEzkmVzPX4cxGzgAvzoGa 41FCViKPldDLSzHD8xqHQb LOW2jMCzWXDjo8IhoSfvRF BjLTUoA2Wxy47lfJEcU2yi ND9sUM8oNOYasrRuv1Gkn9 CsrNXqMRWtcH8sJGB4gALz YBBndWfvigNidI9lh5WyiD KjOBTcpokhg9itex8bHEGj u92muQ8zbCzxBQEahrJvjI 3arjTugsQvGOItV77baaWn b4FnaPNpU2HdMy27TRolDZ GgKCLivVEajuKrPH1ixAvm AnwgAs96KKReBZbcBVJsNC 4rzXFtKOB8mXXmVJFtj0Uj qQzdATZlODCiK0Zyg27afJ XzW3wcYG6hVF9yDXGpyyVc a8Cna7ZrpNPvXSI4UUgdWI iuLAjlCJSzjHFtbQT4fTPx WMYfVtTlPNGwFNZ5KIDfTC MgZDNCrQLxg6Add1IgQF1k YJDvfLfig7DuiPVzsHXilP AvoDJtUQWfiumlDI7fURKz y073aREvwrWgdRhiDOA3gG 2hNCudIGUvW4ZewBcgoMUx k0HjoFTwoVYjb3k9vJXxDB Orsb4iFRfsnFLpaZjwl2I7 lHB8BRAlC4rdqTEiTR3zJK fwIX85MEbwWR16PEDaQMVb dmVybHlpbmcgdGhlIGhlYW xlZCBzdGFwbGUgbGluZSB3 pFlmzORfr671TElrqcKpVB xlIHllbGxvdyBjbGVhciBn DDezuMllz7JnZS0thNVdtP QfRrCuXk67rBThSStnJP32 lhZuHqLku0horYGasuAbd3 BlbmVkIHRvIHJldmVhbCB0 AC4xiIzttbC2gxHlsMDsb3 CxhCLzaNZkw1UsPkIcNqSs xxKyIB91UTDvmsAui3QbaP euprHoXDScWGS2Et8orBUw KKGqpeBKEG4UJm8leKGgTV 2AGZWjbdCFExOjN5Zlt28p E15kEEtkgFSvFS4JVPT8YR UaF51hzxCuy8h9gIPqrD4y ZLhhz1SqfClgIGEfSPIfD5 Fcb72gvNUfK0dcOSKncwId YWNlLCByZXByZXNlbnRhdG s1DNqfKIDeDAxMSl9GXtsh I2TcoMRiMMRgrLSol3ShmA I4gNMbOWQatoJGCeI7TcFD DIbfDH74JArmcLeav9U3hF VcNPD1IVVmDDKsqrKxUWV4 iB0nOG3oawecxjiiQH3nOb UrPBpirkAhmnOgIA61DBGq yqPyeOJuGN4WOMK9MYL2kU 7nYAJ2tEBqSYA8ATRvSNRj ayNpt3ZpJUfffuZivhLxKM 69ZBAgcxCglJTvLH1JQPY8 VPD8xV2fVTbktLaqi9Mnu5 9pxMUtaWI3SSKsqIBxjWKw CCHunO23UURkWBVxRGYwUA VdjmJpwHf9HA1QHTQyWQte HOYxsEFQPEA1GR8uXNkonX DraacsENMvI9AbQ4VfhdVu jSCdYSUlpzZls3umQOB3LG NsbXVsdDBcZnMxNlxwYXJ9 SFi1MPraHUFnH9KgI3QzTB tbBTJ5XRQfOdLmZYEwZDPZ LbLeWvZvEGF9Bbg4KLWoVO e3PJefE7GFSOZhEDF3BeF1 UAh8JwC4RNp2FQEXQq5bYF V6MgQ9Eed3SUF3BOK4JxAn XHQgMiBcXGYgQXJpYWwgXF xmcyAxMCBcXGZsIFxcbmN9 UESuJdQeR9CYY9bLPJ0iUb wrLDFzCLjbeLffmN3oUUGt E45ar3SZp5EsTE3CMCd8vt SjchcdcY8cENPlfoCnNLxz dEKsH8duSdNqKvWKuEVmlT 0ambZTBEqiAJWjX2SenuNr IGZyZXNoIGxhYmVsZWQgd2 x2aOX7cWWhySF6xUHlpBys QJ2lwCRfQFJEOX92sVUgfk ExO95os52zJIEzWSN8i83s eNpiUMWsaqI0frWcFAAqYF Sdw34lqNY8xiWrAwZgKDQq eq4voL9bASMwQGL1z70zcC mmBLKyvnB6ylQjVY04KYux DM6dLXmfKC8yZUKpTRNlZM AyLjAgeCAxLjcgeCAxLjUg Z87uIGWxQ7fso3b4eWKlVR M1VUTwZWXgvU3cWSQtm89z NH4hFUTob3BgR2DfSDNYgH Dim5TwlSluTBukcgWqTVIy TESyXP4etpHvZJBkSWSwqQ 3ePZNppxKgcUHuI9UoDZ8z OSTrEPZsmHIdxM7unnLmgz GufSWwgCZ7BONaIG92lHXu gOacAm26vZPmpnEiZIPhOE UgV9EklS6gEyHtXzVqHSTq VOezA2a8MMYujQrqNAWvgl N4XD1lXZX0qiGaMUOjijG6 IBfrPMRzFMTqWJK1bLSqs6 Mbd16oEM4pFEY6ciYlZKNu jnQ4AYmlGNQiYOOzMagrOJ UkIKnnzUCrEL8DDALmuIQN PFcaw9NeDQslLWPxLWLBQ9 OtERqcbCulfI1rUWWfY79e h6VMl1EbQTEaNBlup0wanR lpg4CapMXaJVfmUHBowBIc CIwtoL0qPeQpp9lezZc5PM wqqpW8EQZtgq7NRoplsU5k LtRka3amhAg6ZWIMOlaupo L5w7xfhRnwh6JqfHCzFH8D Cn0= Disclaimer (test code = b7mqrLExKHZzk6efCJLaaX [id number]) FuZzEwMzNcZnRuYmpcdWMx WSqteaYyZWyrh1YnS2YnHp AwMFxhbnNpXGRlZmxhbmcx MAEwTEO5iwQsSLEvPAgqZL FvJQjbWx9ixBDskGbqKnBi HZWll7fiirJMPLcsPkAxE8 99VWDxNFokz7hvg1EbQILo nVPrq0W5JENDnlpssLx0rJ yjT46bn7U8ZvjqV0ykTJKl FQKdD1TgFA4bYDVaApx9YS A0KNI0RNVjPRVqO9AsHW8k BDBfzDZtKVc7m7bcuCelCL RiMEX5z2mgNWdnqwRcAK3p ji1auVn1i1gowbMfZBVlTA QedLTVOUJgX0DtuTujZu5b kXu7fWdfAincYJE0Trp4LJ 5sxj71afa8jHmkMDSryhsp KaH8MZrjMXNicuhdNCv1XE ztYAYqdHB1GHIzsBOxY4Ig QSLoNC8ywwy8TQU0QQjuWB FdRoA5YQChbZAeAXYxvMjx PZeph711IAJ4PtDgAZ0iO3 Hvg4J0uQ5kgYOqEXSxsYWz WlZnEUIlyx4mdWBcGBlzs6 JtOKO7qhE4qIFjzOEdQAOw KO60Jprve5IfDyfcf3XwB4 3uoMU0PGjzs8kgOH4kKqW0 doApYQrip3cjsR8bVjU5DF kfAY6iPK4qIJEgzJ9fsffh XHBnYnJkcmhlYWRccGdicm YcPi5mcTozCXR1JTykU9np uO3rEnB5VMtpW5ppxL3lZI t6DZxisFV0QAOikT5xTI5t ezysh8edUObdDGfhVRFbfs E9nkC1AOYsjBItF7VppM1s CJBxJA5zkjttk3hwIWL8UR gqFJUvZOX2BsBvGUPef9Bq ozr7LsQsk1CfcZQmDNqtX3 3xa164NGFfztWbN2fvjKIf tfarnASxdxuyZRpaptB7XP IlidSgt7CmVHToUBB4ZHez LVpxvJNhBBMoaDgii7lwQ9 RscGFyXHBsYWluXGYxXGZz MjBcbGFuZzEwMzNcaGljaF peFYcbVgGlNWChBQlxV4fa InBdY9QsBPPnOoNizHDnI2 ggVGhpcyByZXBvcnQgbWF5 NUfeA6r4HFYiqtGaePs7we KpGuLcKESeURY3RDimjDTu LPQff3BiqxcauZIfNh5vvF VeNBFrhA2iIGCkAOEwGPui XR6gcWf4AJWUsKJsgQRxHt UNZCJyMX94aqDvQGXHevdc e7F2WKakJZHkn3PvwLZpA0 bls1SeNTOlk09kCF3on7S4 p0neLUX3WO2rl4VkQXWghX VdeDKiNFBll2Bjwhjny3Jc BCUasmSxw3CcAOKwpxHmvO MgBDMonnZeen6abwUjWDLj WADhX9WejdcdgCocebMxTZ Sddz3ixoYwEPF6QJBFUGPj LIWbs5PfjL9hsSZGJLO9zA Ilox7ukjPSoURfHWKcha79 JOQjBQ3sQ6fmMQIiAVYivl DsxQJga7KuPEZrnME2fDCc IN7CTmXNn99pYYCmRTJQti GbRNLacYsrmXC5egG3xX7y IChGREEpLlx+IFRoZSBGRE KrKC3idrPpa9EoweKhzPqq GQUoxCPqy4JtfYWos2WxbX fvy8CouCUhgQKtOJ3uHIKe clxwYXIgVVRNQiBMYWJvcm W2v3NcOCOtYPHdSDE5hTgj tag7FFFknR4cGKFoC6nlqz grOZnqPYHki3ZyeC5nfOHY lGYcf5BrcQRqcIAXmMPpAF 0cmvTdMVsETGpLUJA2xsNp CEJdz9FgSAajJ8bnK12xjF hgdPu5qUN6RSW2qA0cLco+ IFxwYXJccGFyIEFwcHJvcH QuMLDswBrvhnThH3EvcuAp nP6sbNTdlhRqCQ0sBY7hA1 A9oTRuOPJiwbCqg2ycPEad dmUgYmVlbiByZXZpZXdlZC Bla8DqBYmlYRJ1XNvgcbAf bmNsdWRpbmcgSCZFLCBTcG JngLFyLME7VOulitTjpvIh WY6onT0mxFdlnO6jgBNpkM X0pqepTTDjXOIzuHqhDWGn WI1kzNVeNSBuobACzOhuvP RfoF7lW1PzNACuYDWflz6f QLUceF9rLGkyu0ZcelauRQ PiNXWsNSJgagWjwy3lOLAj bMUWUT6AXVybyIOmv3Eprb GzE3zYAET5LTUsEaGgXiot ADExqEEufZOaLBXsjs64MU QmoU8irBmlMVVrrH2psO4p sYcavL2iYoGfNbLqXMicXN 1kMVDjC6jsoLDbWSFhEPEi A8ogCmVznH9hwRttNPpjCj YeLaSuSVoqLLN6uS== Embedded Images (test code = 6145648453) [facility] METABOLIC PANEL (NA, K, CL, CO2, GLUCOSE, BUN, CREATININE, CA)2021-04-27 14:40:08 Test Item Value Reference Range Interpretation Comments NA (test code = 133 mmol/L 135-145 L [id number]) K (test code = 4.0 mmol/L 3.5-5.0 9213064235) CL (test code = 104 mmol/L 98-108 7110657280) CO2 TOTAL (test code = 21 mmol/L 23-31 L 6994808139) AGAP (test code = 2-16 1707881171) BUN (test code = 4 mg/dL 7-23 L 3078578048) GLUCOSE (test code = 98 mg/dL 70-110 0527006974) CREATININE (test code = 0.56 mg/dL 0.50-1.04 9129505133) CALCIUM (test code = 8.1 mg/dL 8.6-10.6 L 3030484383) eGFR (test code = mL/min/1.73m2 7306183031) ELENI (test code = ELENI) Association of Glomerular Filtration Rate (GFR) and Staging of Kidney Disease* + --+ --+ ------+| GFR (mL/min/1.73 m2) ?| With Kidney Damage ?| ?Without Kidney Damage+ --------+ --------+ +| ?>90 ?| ?Stage one ?| ? Normal ?+ ---+ ---+ -------+| ?60-89 ?| ?Stage two ?| ? Decreased GFR ? + --+ --+ ------+| ?30-59 ?| ?Stage three ?| ? Stage three ? + --+ --+ ------+| ?15-29 ?| ?Stage four ? | ? Stage four ?+ ---+ ---+ -------+| ?<15 (or dialysis) ? ?| ?Stage five ? | ? Stage five ?+ ---+ ---+ -------+ *Each stage assumes the associated GFR level has been in effect for at least three months. ?Stages 1 to 5, with or without kidney disease, indicate chronic kidney disease. Notes: Determination of stages one and two (with eGFR >59mL/min/1.73 m2) requires estimation of kidney damage for at least three months as defined by structural or functional abnormalities of the kidney, manifested by either:Pathological abnormalities or Markers of kidney damage (including abnormalities in the composition of the blood or urine or abnormalities in imaging tests). Lab Interpretation Abnormal (test code = 32939-9) [facility] Test Item Value Reference Range Interpretation Comments MAGNESIUM (test code = 2626149762) 1.7 mg/dL 1.7-2.4 Lab Interpretation (test code = Normal 59820-1) [facility] (NA, K, CL, CO2, GLUCOSE, BUN, CREATININE, CA)2021-04-26 11:02:24 Test Item Value Reference Range Interpretation Comments NA (test code = 133 mmol/L 135-145 L [id number]) K (test code = 3.9 mmol/L 3.5-5.0 9535877793) CL (test code = 103 mmol/L 98-108 2531647529) CO2 TOTAL (test code = 23 mmol/L 23-31 3479184347) AGAP (test code = 2-16 0845263009) BUN (test code = 3 mg/dL 7-23 L 7770115064) GLUCOSE (test code = 91 mg/dL 70-110 5114904140) CREATININE (test code = 0.53 mg/dL 0.50-1.04 5448581282) CALCIUM (test code = 8.2 mg/dL 8.6-10.6 L 0595462489) eGFR (test code = mL/min/1.73m2 2544563384) ELENI (test code = ELENI) Association of Glomerular Filtration Rate (GFR) and Staging of Kidney Disease* + --+ --+ ------+| GFR (mL/min/1.73 m2) ?| With Kidney Damage ?| ?Without Kidney Damage+ --------+ --------+ +| ?>90 ?| ?Stage one ?| ? Normal ?+ ---+ ---+ -------+| ?60-89 ?| ?Stage two ?| ? Decreased GFR ? + --+ --+ ------+| ?30-59 ?| ?Stage three ?| ? Stage three ? + --+ --+ ------+| ?15-29 ?| ?Stage four ? | ? Stage four ?+ ---+ ---+ -------+| ?<15 (or dialysis) ? ?| ?Stage five ? | ? Stage five ?+ ---+ ---+ -------+ *Each stage assumes the associated GFR level has been in effect for at least three months. ?Stages 1 to 5, with or without kidney disease, indicate chronic kidney disease. Notes: Determination of stages one and two (with eGFR >59mL/min/1.73 m2) requires estimation of kidney damage for at least three months as defined by structural or functional abnormalities of the kidney, manifested by either:Pathological abnormalities or Markers of kidney damage (including abnormalities in the composition of the blood or urine or abnormalities in imaging tests). Lab Interpretation Abnormal (test code = 09265-4) [facility]02:24 Test Item Value Reference Range Interpretation Comments MAGNESIUM (test code = 1968636902) 1.8 mg/dL 1.7-2.4 Lab Interpretation (test code = Normal 80993-8) [facility] WITH [id number] 10:26:18 Test Item Value Reference Range Interpretation Comments WBC (test code = See_Comment [Automated 7130-2) message] The sy stem which generated this result transmitted reference range : 4.30 - 11.10 10*3/?L. The reference range was not used to interpret this result as normal/abnormal . RBC (test code = See_Comment L [Automated 275-0) message] The sy stem which generated this result transmitted reference range : 3.93 - 5.25 10*6/?L. The reference range was not used to interpret this result as normal/abnormal . HGB (test code = 7.7 g/dL 11.6-15.0 L 718-7) HCT (test code = 25.4 % 35.7-45.2 L 4544-3) MCV (test code = 77.0 fL 80.6-95.5 L 787-2) MCH (test code = 23.3 pg 25.9-32.8 L 785-6) MCHC (test code = 30.3 g/dL 31.6-35.1 L 786-4) RDW-SD (test code = 48.0 fL 39.0-49.9 47799-6) RDW-CV (test code = 17.6 % 12.0-15.5 H 788-0) PLT (test code = See_Comment [Automated 777-3) message] The sy stem which generated this result transmitted reference range : 166 - 358 10*3/ ?L. The reference r chayo was not used to interpret this result as normal/abnormal . MPV (test code = 9.3 fL 9.5-12.9 L 98570-4) NRBC/100 WBC (test See_Comment [Automat ed code = 9956377521) message] The system which generated this result transmitted reference range : 0.0 - 10.0 /100 WBCs. The refer ence range was not u sed to interpret th is result as normal/abnormal . NRBC x10^3 (test code <0.01 See_Comment [Auto mated = 5212278060) message] The s ystem which generated this result transmitted reference range : 10*3/?L. The reference range was not used to interpret this result as normal/abnormal . GRAN MAT (NEUT) % 70.6 % (test code = 770-8) IMM GRAN % (test code 1.10 % = 6854743232) LYMPH % (test code = 13.9 % 736-9) MONO % (test code = 9.4 % 5905-5) EOS % (test code = 4.4 % 713-8) BASO % (test code = 0.6 % 706-2) GRAN MAT x10^3(ANC) 5.60 10*3/uL 1.88-7.09 (test code = 7601990863) IMM GRAN x10^3 (test 0.09 10*3/uL 0.00-0.06 H code = 4124651408) LYMPH x10^3 (test code 1.10 10*3/uL 1.32-3.29 L = 731-0) MONO x10^3 (test code 0.75 10*3/uL 0.33-0.92 = 742-7) EOS x10^3 (test code = 0.35 10*3/uL 0.03-0.39 711-2) BASO x10^3 (test code 0.05 10*3/uL 0.01-0.07 = 704-7) Lab Interpretation Abnormal (test code = 93299-5) [facility] [id number] 11:43:43 Test Item Value Reference Range Interpretation Comments TSH (test code = See_Comment [Automated message] [id number]) The system [employer] generated this result transmitted ref erence range: 0.45 - 4 .70 mIU/L. The refe rence range was not u sed to interpret this result as normal/abnor mal. Lab Interpretation (test Normal code = 85700-9) [facility] (NA, K, CL, CO2, GLUCOSE, BUN, CREATININE, CA)2021-04-25 11:10:43 Test Item Value Reference Range Interpretation Comments NA (test code = 128 mmol/L 135-145 L 4083235526) K (test code = 4.0 mmol/L 3.5-5.0 5015007770) CL (test code = 104 mmol/L 98-108 7574911238) CO2 TOTAL (test code = 23 mmol/L 23-31 9682508821) AGAP (test code = 2-16 L 4116533291) BUN (test code = 5 mg/dL 7-23 L 9937185159) GLUCOSE (test code = 100 mg/dL 70-110 8845179655) CREATININE (test code = 0.52 mg/dL 0.50-1.04 3301917034) CALCIUM (test code = 7.9 mg/dL 8.6-10.6 L 2731457298) eGFR (test code = mL/min/1.73m2 8863303940) ELENI (test code = ELENI) Association of Glomerular Filtration Rate (GFR) and Staging of Kidney Disease* + --+ --+ ------+| GFR (mL/min/1.73 m2) ?| With Kidney Damage ?| ?Without Kidney Damage+ --------+ --------+ +| ?>90 ?| ?Stage one ?| ? Normal ?+ ---+ ---+ -------+| ?60-89 ?| ?Stage two ?| ? Decreased GFR ? + --+ --+ ------+| ?30-59 ?| ?Stage three ?| ? Stage three ? + --+ --+ ------+| ?15-29 ?| ?Stage four ? | ? Stage four ?+ ---+ ---+ -------+| ?<15 (or dialysis) ? ?| ?Stage five ? | ? Stage five ?+ ---+ ---+ -------+ *Each stage assumes the associated GFR level has been in effect for at least three months. ?Stages 1 to 5, with or without kidney disease, indicate chronic kidney disease. Notes: Determination of stages one and two (with eGFR >59mL/min/1.73 m2) requires estimation of kidney damage for at least three months as defined by structural or functional abnormalities of the kidney, manifested by either:Pathological abnormalities or Markers of kidney damage (including abnormalities in the composition of the blood or urine or abnormalities in imaging tests). Lab Interpretation Abnormal (test code = 57783-0) [facility] 11:10:43 Test Item Value Reference Range Interpretation Comments MAGNESIUM (test code = 1822245153) 1.7 mg/dL 1.7-2.4 Lab Interpretation (test code = Normal 68417-9) [facility] WITH [id number] 10:37:18 Test Item Value Reference Range Interpretation Comments WBC (test code = See_Comment H [Automated 6690-2) message] The sy stem which generated this result transmitted reference range : 4.30 - 11.10 10*3/?L. The reference range was not used to interpret this result as normal/abnormal . RBC (test code = See_Comment L [Automated 789-8) message] The sy stem which generated this result transmitted reference range : 3.93 - 5.25 10*6/?L. The reference range was not used to interpret this result as normal/abnormal . HGB (test code = 7.2 g/dL 11.6-15.0 L 718-7) HCT (test code = 23.3 % 35.7-45.2 L 4544-3) MCV (test code = 78.2 fL 80.6-95.5 L 787-2) MCH (test code = 24.2 pg 25.9-32.8 L 785-6) MCHC (test code = 30.9 g/dL 31.6-35.1 L 786-4) RDW-SD (test code = 48.2 fL 39.0-49.9 03094-7) RDW-CV (test code = 17.5 % 12.0-15.5 H 788-0) PLT (test code = See_Comment [Automated 777-3) message] The sy stem which generated this result transmitted reference range : 166 - 358 10*3/ ?L. The reference r chayo was not used to interpret this result as normal/abnormal . MPV (test code = 9.3 fL 9.5-12.9 L 54780-1) NRBC/100 WBC (test See_Comment [Automat ed code = 7766909665) message] The system which generated this result transmitted reference range : 0.0 - 10.0 /100 WBCs. The refer ence range was not u sed to interpret th is result as normal/abnormal . NRBC x10^3 (test code <0.01 See_Comment [Auto mated = 9020851305) message] The s ystem which generated this result transmitted reference range : 10*3/?L. The reference range was not used to interpret this result as normal/abnormal . GRAN MAT (NEUT) % 80.2 % (test code = 770-8) IMM GRAN % (test code 0.80 % = 1662878967) LYMPH % (test code = 8.1 % 736-9) MONO % (test code = 7.4 % 5905-5) EOS % (test code = 3.1 % 713-8) BASO % (test code = 0.4 % 706-2) GRAN MAT x10^3(ANC) 9.08 10*3/uL 1.88-7.09 H (test code = 9915733751) IMM GRAN x10^3 (test 0.09 10*3/uL 0.00-0.06 H code = 3851157088) LYMPH x10^3 (test code 0.92 10*3/uL 1.32-3.29 L = 731-0) MONO x10^3 (test code 0.84 10*3/uL 0.33-0.92 = 742-7) EOS x10^3 (test code = 0.35 10*3/uL 0.03-0.39 711-2) BASO x10^3 (test code 0.05 10*3/uL 0.01-0.07 = 704-7) Lab Interpretation Abnormal (test code = 09500-8) [facility] METABOLIC PANEL (NA, K, CL, CO2, GLUCOSE, BUN, CREATININE, CA)2021-04-24 07:58:42 Test Item Value Reference Range Interpretation Comments NA (test code = 132 mmol/L 135-145 L 2658307037) K (test code = 3.7 mmol/L 3.5-5.0 9022603683) CL (test code = 106 mmol/L 98-108 3757043370) CO2 TOTAL (test code = 26 mmol/L 23-31 3423799782) AGAP (test code = <1 2-16 L 4745506203) BUN (test code = 3 mg/dL 7-23 L 1824474997) GLUCOSE (test code = 123 mg/dL 70-110 H 7860393522) CREATININE (test code = 0.42 mg/dL 0.50-1.04 L 3397980400) CALCIUM (test code = 7.6 mg/dL 8.6-10.6 L 7098447421) eGFR (test code = mL/min/1.73m2 5051716496) ELENI (test code = ELENI) Association of Glomerular Filtration Rate (GFR) and Staging of Kidney Disease* + --+ --+ ------+| GFR (mL/min/1.73 m2) ?| With Kidney Damage ?| ?Without Kidney Damage+ --------+ --------+ +| ?>90 ?| ?Stage one ?| ? Normal ?+ ---+ ---+ -------+| ?60-89 ?| ?Stage two ?| ? Decreased GFR ? + --+ --+ ------+| ?30-59 ?| ?Stage three ?| ? Stage three ? + --+ --+ ------+| ?15-29 ?| ?Stage four ? | ? Stage four ?+ ---+ ---+ -------+| ?<15 (or dialysis) ? ?| ?Stage five ? | ? Stage five ?+ ---+ ---+ -------+ *Each stage assumes the associated GFR level has been in effect for at least three months. ?Stages 1 to 5, with or without kidney disease, indicate chronic kidney disease. Notes: Determination of stages one and two (with eGFR >59mL/min/1.73 m2) requires estimation of kidney damage for at least three months as defined by structural or functional abnormalities of the kidney, manifested by either:Pathological abnormalities or Markers of kidney damage (including abnormalities in the composition of the blood or urine or abnormalities in imaging tests). Lab Interpretation Abnormal (test code = 98613-5) [facility] 07:47:10 Test Item Value Reference Range Interpretation Comments MAGNESIUM (test code = 1546118882) 1.9 mg/dL 1.7-2.4 Lab Interpretation (test code = Normal 39483-2) [facility] WITH [id number] 07:23:28 Test Item Value Reference Range Interpretation Comments WBC (test code = See_Comment H [Automated 3490-2) message] The sy stem which generated this result transmitted reference range : 4.30 - 11.10 10*3/?L. The reference range was not used to interpret this result as normal/abnormal . RBC (test code = See_Comment L [Automated 469-8) message] The sy stem which generated this result transmitted reference range : 3.93 - 5.25 10*6/?L. The reference range was not used to interpret this result as normal/abnormal . HGB (test code = 7.6 g/dL 11.6-15.0 L 718-7) HCT (test code = 25.0 % 35.7-45.2 L 4544-3) MCV (test code = 76.5 fL 80.6-95.5 L 787-2) MCH (test code = 23.2 pg 25.9-32.8 L 785-6) MCHC (test code = 30.4 g/dL 31.6-35.1 L 786-4) RDW-SD (test code = 46.2 fL 39.0-49.9 44568-5) RDW-CV (test code = 17.0 % 12.0-15.5 H 788-0) PLT (test code = See_Comment [Automated 777-3) message] The sy stem which generated this result transmitted reference range : 166 - 358 10*3/ ?L. The reference r chayo was not used to interpret this result as normal/abnormal . MPV (test code = 8.8 fL 9.5-12.9 L 45916-7) NRBC/100 WBC (test See_Comment [Automat ed code = 6384636713) message] The system which generated this result transmitted reference range : 0.0 - 10.0 /100 WBCs. The refer ence range was not u sed to interpret th is result as normal/abnormal . NRBC x10^3 (test code <0.01 See_Comment [Auto mated = 5136900438) message] The s ystem which generated this result transmitted reference range : 10*3/?L. The reference range was not used to interpret this result as normal/abnormal . GRAN MAT (NEUT) % 79.5 % (test code = 770-8) IMM GRAN % (test code 0.50 % = 6788852623) LYMPH % (test code = 8.2 % 736-9) MONO % (test code = 9.4 % 5905-5) EOS % (test code = 2.1 % 713-8) BASO % (test code = 0.3 % 706-2) GRAN MAT x10^3(ANC) 9.28 10*3/uL 1.88-7.09 H (test code = 2161825802) IMM GRAN x10^3 (test 0.06 10*3/uL 0.00-0.06 code = 5563637842) LYMPH x10^3 (test code 0.96 10*3/uL 1.32-3.29 L = 731-0) MONO x10^3 (test code 1.10 10*3/uL 0.33-0.92 H = 742-7) EOS x10^3 (test code = 0.25 10*3/uL 0.03-0.39 711-2) BASO x10^3 (test code 0.04 10*3/uL 0.01-0.07 = 704-7) Lab Interpretation Abnormal (test code = 91589-4) [facility] METABOLIC PANEL (NA, K, CL, CO2, GLUCOSE, BUN, CREATININE, CA)2021-04-23 20:47:14 Test Item Value Reference Range Interpretation Comments NA (test code = 132 mmol/L 135-145 L 7893898712) K (test code = 3.4 mmol/L 3.5-5.0 L 0967271411) CL (test code = 100 mmol/L 98-108 2290904053) CO2 TOTAL (test code = 25 mmol/L 23-31 3881598299) AGAP (test code = 2-16 9273550582) BUN (test code = <2 7-23 L 6472460206) GLUCOSE (test code = 136 mg/dL 70-110 H 8578184162) CREATININE (test code = 0.45 mg/dL 0.50-1.04 L 9007198225) CALCIUM (test code = 7.7 mg/dL 8.6-10.6 L 9928772378) eGFR (test code = mL/min/1.73m2 9957834012) ELENI (test code = ELENI) Association of Glomerular Filtration Rate (GFR) and Staging of Kidney Disease* + --+ --+ ------+| GFR (mL/min/1.73 m2) ?| With Kidney Damage ?| ?Without Kidney Damage+ --------+ --------+ +| ?>90 ?| ?Stage one ?| ? Normal ?+ ---+ ---+ -------+| ?60-89 ?| ?Stage two ?| ? Decreased GFR ? + --+ --+ ------+| ?30-59 ?| ?Stage three ?| ? Stage three ? + --+ --+ ------+| ?15-29 ?| ?Stage four ? | ? Stage four ?+ ---+ ---+ -------+| ?<15 (or dialysis) ? ?| ?Stage five ? | ? Stage five ?+ ---+ ---+ -------+ *Each stage assumes the associated GFR level has been in effect for at least three months. ?Stages 1 to 5, with or without kidney disease, indicate chronic kidney disease. Notes: Determination of stages one and two (with eGFR >59mL/min/1.73 m2) requires estimation of kidney damage for at least three months as defined by structural or functional abnormalities of the kidney, manifested by either:Pathological abnormalities or Markers of kidney damage (including abnormalities in the composition of the blood or urine or abnormalities in imaging tests). Lab Interpretation Abnormal (test code = 82168-4) [facility] METABOLIC PANEL (NA, K, CL, CO2, GLUCOSE, BUN, CREATININE, CA)2021-04-23 20:47:14 Test Item Value Reference Range Interpretation Comments NA (test code = 132 mmol/L 135-145 L 9116308863) K (test code = 3.4 mmol/L 3.5-5.0 L 7828034525) CL (test code = 100 mmol/L 98-108 1525012497) CO2 TOTAL (test code = 25 mmol/L 23-31 0652794112) AGAP (test code = 2-16 2266182454) BUN (test code = <2 7-23 L 7871990030) GLUCOSE (test code = 136 mg/dL 70-110 H 9844350932) CREATININE (test code = 0.45 mg/dL 0.50-1.04 L 4233033361) CALCIUM (test code = 7.7 mg/dL 8.6-10.6 L 7979363290) eGFR (test code = mL/min/1.73m2 6436532992) ELENI (test code = ELENI) Association of Glomerular Filtration Rate (GFR) and Staging of Kidney Disease* + --+ --+ ------+| GFR (mL/min/1.73 m2) ?| With Kidney Damage ?| ?Without Kidney Damage+ --------+ --------+ +| ?>90 ?| ?Stage one ?| ? Normal ?+ ---+ ---+ -------+| ?60-89 ?| ?Stage two ?| ? Decreased GFR ? + --+ --+ ------+| ?30-59 ?| ?Stage three ?| ? Stage three ? + --+ --+ ------+| ?15-29 ?| ?Stage four ? | ? Stage four ?+ ---+ ---+ -------+| ?<15 (or dialysis) ? ?| ?Stage five ? | ? Stage five ?+ ---+ ---+ -------+ *Each stage assumes the associated GFR level has been in effect for at least three months. ?Stages 1 to 5, with or without kidney disease, indicate chronic kidney disease. Notes: Determination of stages one and two (with eGFR >59mL/min/1.73 m2) requires estimation of kidney damage for at least three months as defined by structural or functional abnormalities of the kidney, manifested by either:Pathological abnormalities or Markers of kidney damage (including abnormalities in the composition of the blood or urine or abnormalities in imaging tests). Lab Interpretation Abnormal (test code = 24208-1) [facility] 20:34:36 Test Item Value Reference Range Interpretation Comments MAGNESIUM (test code = 4947842759) 2.4 mg/dL 1.7-2.4 Lab Interpretation (test code = Normal 93279-6) [facility] 20:34:36 Test Item Value Reference Range Interpretation Comments PHOSPHORUS (test code = 0845123228) 2.5 mg/dL 2.5-5.0 Lab Interpretation (test code = Normal 27113-8) [facility] 20:34:36 Test Item Value Reference Range Interpretation Comments MAGNESIUM (test code = 6431439362) 2.4 mg/dL 1.7-2.4 Lab Interpretation (test code = Normal 34339-5) [facility] 20:34:36 Test Item Value Reference Range Interpretation Comments PHOSPHORUS (test code = 2197388207) 2.5 mg/dL 2.5-5.0 Lab Interpretation (test code = Normal 28720-2) [facility]21-[facility]23 18:33:13 Test Item Value Reference Range Interpretation Comments EF(Teich) (test code = 69.30 % 0180532088) LVIDD (test code = 4.20 cm 5853334262) LVIDS (test code = 2.60 cm 2338811086) IVS (test code = 1.03 cm 4938689785) LVPWD (test code = 0.86 cm 5744809282) LVOT diameter (test code 1.86 cm = 9058629567) FS (test code = 39 % 8650421801) MV Peak E Shoaib (test code 143.0 cm/s = 9400679487) MV Peak A Shoaib (test code 88.1 cm/s = 6075374875) E/A ratio (test code = ratio 1096795689) E wave decelartion time 0.12 s (test code = 8049088921) LA size (test code = 4.1 cm 5322654584) MV stenosis pressure 1/2 34.7 ms time (test code = 4742521782) MV dec slope (test code = 1210.00 cm/s2 2555167188) Ao root annulus (test 3.4 cm code = 3812563155) Ao root diam (test code = 3.40 cm 1170357070) Aortic root (test code = 3.4 cm 9666562032) PW (test code = 0.86 cm 0.6-1.2 7421552308) EF - 2D (test code = 69.30 % 32885064) Interventricular Septum 1.03 cm Diastolic Thickness by 2D (test code = 8639894) LAV(MOD-sp4) (test code = 40.90 mL 5768321491) TR Peak Shoaib (test code = 249.6 cm/s 4386058424) Triscuspid Valve mmHg Regurgitation Peak Gradient (test code = 5510617939) LA volume (BP) (test code 45.3 mL = 7242780071) LAV(MOD-sp2) (test code = 51.70 mL 3985406802) Radiology Study observation (narrative) (test code = 37475-4) ELENI (test code = ELENI) ?Left?Ventricle: Left ventricle is normal in size and function. Normal wall thickness. Normal systolic function with a visually estimated EF of 55 - 60%. Normal diastolic function. Normal wall motion. ?Right?Ventricle: Right ventricle is normal in size and function. Normal wall thickness. There is a pacemaker lead in the right ventricle. ?Mitral?Valve: Mitral valve is normal in structure and function. Mild mitral annular calcification. ?Tricuspid?Valve: Tricuspid valve is normal size and function. ?Aortic?Valve: Aortic valve is normal in structure and function. ?Pulmonic?Valve: Pulmonic valve is normal in structure and function. VitalsHeight Weight BSA (Calculated - sq m) BP Pulse 5' 8" (1.727 m) 198 lb (89.8 kg) 2.07 sq meters 148/76 101 [facility]23 18:33:13 Test Item Value Reference Range Interpretation Comments EF(Teich) (test code = 69.30 % 1259364879) LVIDD (test code = 4.20 cm 6402904767) LVIDS (test code = 2.60 cm 8192161406) IVS (test code = 1.03 cm 2489139965) LVPWD (test code = 0.86 cm 9830970553) LVOT diameter (test code 1.86 cm = 1722011801) FS (test code = 39 % 4416228512) MV Peak E Shoaib (test code 143.0 cm/s = 5574400818) MV Peak A Shoaib (test code 88.1 cm/s = 8413533164) E/A ratio (test code = ratio 6458757510) E wave decelartion time 0.12 s (test code = 7077176662) LA size (test code = 4.1 cm 7211123392) MV stenosis pressure 1/2 34.7 ms time (test code = 6212747048) MV dec slope (test code = 1210.00 cm/s2 7582924117) Ao root annulus (test 3.4 cm code = 6889496921) Ao root diam (test code = 3.40 cm 8079072986) Aortic root (test code = 3.4 cm 4000509690) PW (test code = 0.86 cm 0.6-1.5 2102932325) EF - 2D (test code = 69.30 % 39305413) Interventricular Septum 1.03 cm Diastolic Thickness by 2D (test code = 7595628) LAV(MOD-sp4) (test code = 40.90 mL 7062576389) TR Peak Shoaib (test code = 249.6 cm/s 7138718075) Triscuspid Valve mmHg Regurgitation Peak Gradient (test code = 9258068769) LA volume (BP) (test code 45.3 mL = 9494559751) LAV(MOD-sp2) (test code = 51.70 mL 2076787050) Radiology Study observation (narrative) (test code = 52205-3) ELENI (test code = ELENI) ?Left?Ventricle: Left ventricle is normal in size and function. Normal wall thickness. Normal systolic function with a visually estimated EF of 55 - 60%. Normal diastolic function. Normal wall motion. ?Right?Ventricle: Right ventricle is normal in size and function. Normal wall thickness. There is a pacemaker lead in the right ventricle. ?Mitral?Valve: Mitral valve is normal in structure and function. Mild mitral annular calcification. ?Tricuspid?Valve: Tricuspid valve is normal size and function. ?Aortic?Valve: Aortic valve is normal in structure and function. ?Pulmonic?Valve: Pulmonic valve is normal in structure and function. VitalsHeight Weight BSA (Calculated - sq m) BP Pulse 5' 8" (1.727 m) 198 lb (89.8 kg) 2.07 sq meters 148/76 101 [facility] (NA, K, CL, CO2, GLUCOSE, BUN, CREATININE, CA)2021-04-23 12:06:05 Test Item Value Reference Range Interpretation Comments NA (test code = 133 mmol/L 135-145 L 8677686384) K (test code = 2.8 mmol/L 3.5-5.0 LL 8585892290) CL (test code = 103 mmol/L 98-108 1072293579) CO2 TOTAL (test code = 23 mmol/L 23-31 9641669096) AGAP (test code = 2-16 3391513440) BUN (test code = <2 7-23 L 2755145415) GLUCOSE (test code = 175 mg/dL 70-110 H 4494465017) CREATININE (test code = 0.32 mg/dL 0.50-1.04 L 3959372100) CALCIUM (test code = 7.0 mg/dL 8.6-10.6 L 7071353881) eGFR (test code = mL/min/1.73m2 2572635048) ELENI (test code = ELENI) Association of Glomerular Filtration Rate (GFR) and Staging of Kidney Disease* + --+ --+ ------+| GFR (mL/min/1.73 m2) ?| With Kidney Damage ?| ?Without Kidney Damage+ --------+ --------+ +| ?>90 ?| ?Stage one ?| ? Normal ?+ ---+ ---+ -------+| ?60-89 ?| ?Stage two ?| ? Decreased GFR ? + --+ --+ ------+| ?30-59 ?| ?Stage three ?| ? Stage three ? + --+ --+ ------+| ?15-29 ?| ?Stage four ? | ? Stage four ?+ ---+ ---+ -------+| ?<15 (or dialysis) ? ?| ?Stage five ? | ? Stage five ?+ ---+ ---+ -------+ *Each stage assumes the associated GFR level has been in effect for at least three months. ?Stages 1 to 5, with or without kidney disease, indicate chronic kidney disease. Notes: Determination of stages one and two (with eGFR >59mL/min/1.73 m2) requires estimation of kidney damage for at least three months as defined by structural or functional abnormalities of the kidney, manifested by either:Pathological abnormalities or Markers of kidney damage (including abnormalities in the composition of the blood or urine or abnormalities in imaging tests). Lab Interpretation Abnormal (test code = 13278-9) [facility] METABOLIC PANEL (NA, K, CL, CO2, GLUCOSE, BUN, CREATININE, CA)2021-04-23 12:06:05 Test Item Value Reference Range Interpretation Comments NA (test code = 133 mmol/L 135-145 L 9852972269) K (test code = 2.8 mmol/L 3.5-5.0 LL 0984454419) CL (test code = 103 mmol/L 98-108 4180570804) CO2 TOTAL (test code = 23 mmol/L 23-31 4650963314) AGAP (test code = 2-16 1037152471) BUN (test code = <2 7-23 L 9480026672) GLUCOSE (test code = 175 mg/dL 70-110 H 0247618021) CREATININE (test code = 0.32 mg/dL 0.50-1.04 L 7755223705) CALCIUM (test code = 7.0 mg/dL 8.6-10.6 L 6618247526) eGFR (test code = mL/min/1.73m2 2215136798) ELENI (test code = ELENI) Association of Glomerular Filtration Rate (GFR) and Staging of Kidney Disease* + --+ --+ ------+| GFR (mL/min/1.73 m2) ?| With Kidney Damage ?| ?Without Kidney Damage+ --------+ --------+ +| ?>90 ?| ?Stage one ?| ? Normal ?+ ---+ ---+ -------+| ?60-89 ?| ?Stage two ?| ? Decreased GFR ? + --+ --+ ------+| ?30-59 ?| ?Stage three ?| ? Stage three ? + --+ --+ ------+| ?15-29 ?| ?Stage four ? | ? Stage four ?+ ---+ ---+ -------+| ?<15 (or dialysis) ? ?| ?Stage five ? | ? Stage five ?+ ---+ ---+ -------+ *Each stage assumes the associated GFR level has been in effect for at least three months. ?Stages 1 to 5, with or without kidney disease, indicate chronic kidney disease. Notes: Determination of stages one and two (with eGFR >59mL/min/1.73 m2) requires estimation of kidney damage for at least three months as defined by structural or functional abnormalities of the kidney, manifested by either:Pathological abnormalities or Markers of kidney damage (including abnormalities in the composition of the blood or urine or abnormalities in imaging tests). Lab Interpretation Abnormal (test code = 68414-1) [facility]56 Test Item Value Reference Range Interpretation Comments PHOSPHORUS (test code = 2855427578) 2.4 mg/dL 2.5-5.0 L Lab Interpretation (test code = Abnormal 54122-3) [facility] 11[facility]59[facility]56 Test Item Value Reference Range Interpretation Comments MAGNESIUM (test code = 1273960698) 1.7 mg/dL 1.7-2.4 Lab Interpretation (test code = Normal 52294-2) [facility] 11:59:56 Test Item Value Reference Range Interpretation Comments PHOSPHORUS (test code = 9526937795) 2.4 mg/dL 2.5-5.0 L Lab Interpretation (test code = Abnormal 61392-0) [facility] 11:59:56 Test Item Value Reference Range Interpretation Comments MAGNESIUM (test code = 8014779777) 1.7 mg/dL 1.7-2.4 Lab Interpretation (test code = Normal 83745-6) [facility] WITH [id number] 11:43:55 Test Item Value Reference Range Interpretation Comments WBC (test code = See_Comment H [Automated 6690-2) message] The system which generated this result transmit jung reference range : 4.30 - 11.10 10*3/?L. The reference range was not used to interpret this result as normal/abnormal . RBC (test code = See_Comment L [Automated 789-8) message] The system which generated this result transmit jung reference range : 3.93 - 5.25 10*6/?L. The reference range was not used to interpret this result as normal/abnormal . HGB (test code = 8.6 g/dL 11.6-15.0 L 718-7) HCT (test code = 27.2 % 35.7-45.2 L 4544-3) MCV (test code = 74.1 fL 80.6-95.5 L 787-2) MCH (test code = 23.4 pg 25.9-32.8 L 785-6) MCHC (test code = 31.6 g/dL 31.6-35.1 786-4) RDW-SD (test code = 43.8 fL 39.0-49.9 08055-5) RDW-CV (test code = 16.3 % 12.0-15.5 H 788-0) PLT (test code = See_Comment [Automated 777-3) message] The system which generated this result transmit jung reference range : 166 - 358 10*3/ ?L. The reference range was not u sed to interpret th is result as normal/abnormal . MPV (test code = 9.0 fL 9.5-12.9 L 42373-0) NRBC/100 WBC (test See_Comment [Automat ed code = 9159525330) message] The system which generated this result transmit jung reference range : 0.0 - 10.0 /100 WBCs. The reference range was not used to interpret this result as normal/abnormal . NRBC x10^3 (test code <0.01 See_Comment [Auto mated = 3568640614) message] The system which generated this result transmit jung reference range : 10*3/?L. The reference range was not used to interpret this result as normal/abnormal . GRAN MAT (NEUT) % 84.8 % (test code = 770-8) IMM GRAN % (test code 0.40 % = 6956619485) LYMPH % (test code = 5.6 % 736-9) MONO % (test code = 8.0 % 5905-5) EOS % (test code = 0.8 % 713-8) BASO % (test code = 0.4 % 706-2) GRAN MAT x10^3(ANC) 12.08 10*3/uL 1.88-7.09 H (test code = 0671942926) IMM GRAN x10^3 (test 0.06 10*3/uL 0.00-0.06 code = 5126829070) LYMPH x10^3 (test code 0.80 10*3/uL 1.32-3.29 L = 731-0) MONO x10^3 (test code 1.14 10*3/uL 0.33-0.92 H = 742-7) EOS x10^3 (test code = 0.11 10*3/uL 0.03-0.39 711-2) BASO x10^3 (test code 0.05 10*3/uL 0.01-0.07 = 704-7) Lab Interpretation Abnormal (test code = 69942-4) [facility] WITH [id number] 11:43:55 Test Item Value Reference Range Interpretation Comments WBC (test code = See_Comment H [Automated 7046-2) message] The system which generated this result transmit jung reference range : 4.30 - 11.10 10*3/?L. The reference range was not used to interpret this result as normal/abnormal . RBC (test code = See_Comment L [Automated 789-8) message] The system which generated this result transmit jung reference range : 3.93 - 5.25 10*6/?L. The reference range was not used to interpret this result as normal/abnormal . HGB (test code = 8.6 g/dL 11.6-15.0 L 718-7) HCT (test code = 27.2 % 35.7-45.2 L 4544-3) MCV (test code = 74.1 fL 80.6-95.5 L 787-2) MCH (test code = 23.4 pg 25.9-32.8 L 785-6) MCHC (test code = 31.6 g/dL 31.6-35.1 786-4) RDW-SD (test code = 43.8 fL 39.0-49.9 92734-9) RDW-CV (test code = 16.3 % 12.0-15.5 H 788-0) PLT (test code = See_Comment [Automated 777-3) message] The system which generated this result transmit jung reference range : 166 - 358 10*3/ ?L. The reference range was not u sed to interpret th is result as normal/abnormal . MPV (test code = 9.0 fL 9.5-12.9 L 98532-3) NRBC/100 WBC (test See_Comment [Automat ed code = 3048362769) message] The system which generated this result transmit jung reference range : 0.0 - 10.0 /100 WBCs. The reference range was not used to interpret this result as normal/abnormal . NRBC x10^3 (test code <0.01 See_Comment [Auto mated = 0420494374) message] The system which generated this result transmit jung reference range : 10*3/?L. The reference range was not used to interpret this result as normal/abnormal . GRAN MAT (NEUT) % 84.8 % (test code = 770-8) IMM GRAN % (test code 0.40 % = 2413801484) LYMPH % (test code = 5.6 % 736-9) MONO % (test code = 8.0 % 5905-5) EOS % (test code = 0.8 % 713-8) BASO % (test code = 0.4 % 706-2) GRAN MAT x10^3(ANC) 12.08 10*3/uL 1.88-7.09 H (test code = 5417122699) IMM GRAN x10^3 (test 0.06 10*3/uL 0.00-0.06 code = 1153099221) LYMPH x10^3 (test code 0.80 10*3/uL 1.32-3.29 L = 731-0) MONO x10^3 (test code 1.14 10*3/uL 0.33-0.92 H = 742-7) EOS x10^3 (test code = 0.11 10*3/uL 0.03-0.39 711-2) BASO x10^3 (test code 0.05 10*3/uL 0.01-0.07 = 704-7) Lab Interpretation Abnormal (test code = 71073-1) [facility] [id number] 02:11:40 Test Item Value Reference Interpretation Comments Range TROPONIN I (test 0.003 ng/mL See_Comment [Automated code = 3590125775) message] The system which generated this result transmitted reference range : <=0.034. The reference range was not used to interpret this result as normal/abnormal . ELENI (test code = Reference (Normal) ELENI) Range (defined by the 99th percentile reference limit): <= 0.034 ng/mL Note: Cardiac troponin begins to rise 3-4 hours after the onset of ischemia. Repeat in 4-6 hours if the sample was drawn within 3-4 hours of the onset of the symptom and found normal. Diagnosis of myocardial injury is made with acute changes in cTn concentrations with at least one serial sample above the 99th percentile upper reference limit (URL), taken together with the patient's clinical presentation. Biotin has been reported to cause a negative bias, interpret results relative to patient's use of biotin. Lab Interpretation Normal (test code = 19152-9) [facility] [id number] 02:11:40 Test Item Value Reference Interpretation Comments Range TROPONIN I (test 0.003 ng/mL See_Comment [Automated code = 5891136902) message] The system which generated this result transmitted reference range : <=0.034. The reference range was not used to interpret this result as normal/abnormal . ELENI (test code = Reference (Normal) ELENI) Range (defined by the 99th percentile reference limit): <= 0.034 ng/mL Note: Cardiac troponin begins to rise 3-4 hours after the onset of ischemia. Repeat in 4-6 hours if the sample was drawn within 3-4 hours of the onset of the symptom and found normal. Diagnosis of myocardial injury is made with acute changes in cTn concentrations with at least one serial sample above the 99th percentile upper reference limit (URL), taken together with the patient's clinical presentation. Biotin has been reported to cause a negative bias, interpret results relative to patient's use of biotin. Lab Interpretation Normal (test code = 50940-0) [facility] 01:08:46 Test Item Value Reference Range Interpretation Comments MAGNESIUM (test code = 1470920940) 1.2 mg/dL 1.7-2.4 L Lab Interpretation (test code = Abnormal 26428-8) [facility] 01:08:46 Test Item Value Reference Range Interpretation Comments PHOSPHORUS (test code = 2400578477) 2.7 mg/dL 2.5-5.0 Lab Interpretation (test code = Normal 71189-7) [facility] 01:08:46 Test Item Value Reference Range Interpretation Comments MAGNESIUM (test code = 0558184176) 1.2 mg/dL 1.7-2.4 L Lab Interpretation (test code = Abnormal 07391-7) [facility] 01:08:46 Test Item Value Reference Range Interpretation Comments PHOSPHORUS (test code = 7342801764) 2.7 mg/dL 2.5-5.0 Lab Interpretation (test code = Normal 72442-1) [facility] (NA, K, CL, CO2, GLUCOSE, BUN, CREATININE, CA)2021-04-23 00:53:22 Test Item Value Reference Range Interpretation Comments NA (test code = 129 mmol/L 135-145 L 3154364863) K (test code = 3.2 mmol/L 3.5-5.0 L 3707258462) CL (test code = 104 mmol/L 98-108 7364513084) CO2 TOTAL (test code = 18 mmol/L 23-31 L 3016813553) AGAP (test code = 2-16 5061035259) BUN (test code = <2 7-23 L 4946530496) GLUCOSE (test code = 130 mg/dL 70-110 H 6291358194) CREATININE (test code = 0.20 mg/dL 0.50-1.04 L 8126827542) CALCIUM (test code = 6.8 mg/dL 8.6-10.6 L 0399980561) eGFR (test code = mL/min/1.73m2 9126574527) ELENI (test code = ELENI) Association of Glomerular Filtration Rate (GFR) and Staging of Kidney Disease* + --+ --+ ------+| GFR (mL/min/1.73 m2) ?| With Kidney Damage ?| ?Without Kidney Damage+ --------+ --------+ +| ?>90 ?| ?Stage one ?| ? Normal ?+ ---+ ---+ -------+| ?60-89 ?| ?Stage two ?| ? Decreased GFR ? + --+ --+ ------+| ?30-59 ?| ?Stage three ?| ? Stage three ? + --+ --+ ------+| ?15-29 ?| ?Stage four ? | ? Stage four ?+ ---+ ---+ -------+| ?<15 (or dialysis) ? ?| ?Stage five ? | ? Stage five ?+ ---+ ---+ -------+ *Each stage assumes the associated GFR level has been in effect for at least three months. ?Stages 1 to 5, with or without kidney disease, indicate chronic kidney disease. Notes: Determination of stages one and two (with eGFR >59mL/min/1.73 m2) requires estimation of kidney damage for at least three months as defined by structural or functional abnormalities of the kidney, manifested by either:Pathological abnormalities or Markers of kidney damage (including abnormalities in the composition of the blood or urine or abnormalities in imaging tests). Lab Interpretation Abnormal (test code = 72199-9) [facility] METABOLIC PANEL (NA, K, CL, CO2, GLUCOSE, BUN, CREATININE, CA)2021-04-23 00:53:22 Test Item Value Reference Range Interpretation Comments NA (test code = 129 mmol/L 135-145 L 7937442655) K (test code = 3.2 mmol/L 3.5-5.0 L 2185172484) CL (test code = 104 mmol/L 98-108 9163312124) CO2 TOTAL (test code = 18 mmol/L 23-31 L 6932937746) AGAP (test code = 2-16 8214265533) BUN (test code = <2 7-23 L 4217473298) GLUCOSE (test code = 130 mg/dL 70-110 H 7073774937) CREATININE (test code = 0.20 mg/dL 0.50-1.04 L 0732570498) CALCIUM (test code = 6.8 mg/dL 8.6-10.6 L 6824184160) eGFR (test code = mL/min/1.73m2 6102025557) ELENI (test code = ELENI) Association of Glomerular Filtration Rate (GFR) and Staging of Kidney Disease* + --+ --+ ------+| GFR (mL/min/1.73 m2) ?| With Kidney Damage ?| ?Without Kidney Damage+ --------+ --------+ +| ?>90 ?| ?Stage one ?| ? Normal ?+ ---+ ---+ -------+| ?60-89 ?| ?Stage two ?| ? Decreased GFR ? + --+ --+ ------+| ?30-59 ?| ?Stage three ?| ? Stage three ? + --+ --+ ------+| ?15-29 ?| ?Stage four ? | ? Stage four ?+ ---+ ---+ -------+| ?<15 (or dialysis) ? ?| ?Stage five ? | ? Stage five ?+ ---+ ---+ -------+ *Each stage assumes the associated GFR level has been in effect for at least three months. ?Stages 1 to 5, with or without kidney disease, indicate chronic kidney disease. Notes: Determination of stages one and two (with eGFR >59mL/min/1.73 m2) requires estimation of kidney damage for at least three months as defined by structural or functional abnormalities of the kidney, manifested by either:Pathological abnormalities or Markers of kidney damage (including abnormalities in the composition of the blood or urine or abnormalities in imaging tests). Lab Interpretation Abnormal (test code = 63106-7) [facility] WITH [id number] 22:01:56 Test Item Value Reference Range Interpretation Comments WBC (test code = See_Comment H [Automated 6690-2) message] The system which generated this result transmit jung reference range : 4.30 - 11.10 10*3/?L. The reference range was not used to interpret this result as normal/abnormal . RBC (test code = See_Comment L [Automated 789-8) message] The system which generated this result transmit jung reference range : 3.93 - 5.25 10*6/?L. The reference range was not used to interpret this result as normal/abnormal . HGB (test code = 8.8 g/dL 11.6-15.0 L 718-7) HCT (test code = 29.0 % 35.7-45.2 L 4544-3) MCV (test code = 76.7 fL 80.6-95.5 L 787-2) MCH (test code = 23.3 pg 25.9-32.8 L 785-6) MCHC (test code = 30.3 g/dL 31.6-35.1 L 786-4) RDW-SD (test code = 45.1 fL 39.0-49.9 60519-9) RDW-CV (test code = 16.2 % 12.0-15.5 H 788-0) PLT (test code = See_Comment [Automated 777-3) message] The system which generated this result transmit jung reference range : 166 - 358 10*3/ ?L. The reference range was not u sed to interpret th is result as normal/abnormal . MPV (test code = 8.6 fL 9.5-12.9 L 80131-9) NRBC/100 WBC (test See_Comment [Automat ed code = 8655939900) message] The system which generated this result transmit jung reference range : 0.0 - 10.0 /100 WBCs. The reference range was not used to interpret this result as normal/abnormal . NRBC x10^3 (test code <0.01 See_Comment [Auto mated = 1075864068) message] The system which generated this result transmit jung reference range : 10*3/?L. The reference range was not used to interpret this result as normal/abnormal . GRAN MAT (NEUT) % 91.3 % (test code = 770-8) IMM GRAN % (test code 0.50 % = 8986500901) LYMPH % (test code = 3.4 % 736-9) MONO % (test code = 4.4 % 5905-5) EOS % (test code = 0.1 % 713-8) BASO % (test code = 0.3 % 706-2) GRAN MAT x10^3(ANC) 14.18 10*3/uL 1.88-7.09 H (test code = 7861217681) IMM GRAN x10^3 (test 0.07 10*3/uL 0.00-0.06 H code = 8812906789) LYMPH x10^3 (test code 0.52 10*3/uL 1.32-3.29 L = 731-0) MONO x10^3 (test code 0.68 10*3/uL 0.33-0.92 = 742-7) EOS x10^3 (test code = <0.03 0.03-0.39 L 711-2) BASO x10^3 (test code 0.04 10*3/uL 0.01-0.07 = 704-7) Lab Interpretation Abnormal (test code = 66614-6) [facility] WITH [id number] 22:01:56 Test Item Value Reference Range Interpretation Comments WBC (test code = See_Comment H [Automated 6690-2) message] The system which generated this result transmit jung reference range : 4.30 - 11.10 10*3/?L. The reference range was not used to interpret this result as normal/abnormal . RBC (test code = See_Comment L [Automated 789-8) message] The system which generated this result transmit jung reference range : 3.93 - 5.25 10*6/?L. The reference range was not used to interpret this result as normal/abnormal . HGB (test code = 8.8 g/dL 11.6-15.0 L 718-7) HCT (test code = 29.0 % 35.7-45.2 L 4544-3) MCV (test code = 76.7 fL 80.6-95.5 L 787-2) MCH (test code = 23.3 pg 25.9-32.8 L 785-6) MCHC (test code = 30.3 g/dL 31.6-35.1 L 786-4) RDW-SD (test code = 45.1 fL 39.0-49.9 70094-2) RDW-CV (test code = 16.2 % 12.0-15.5 H 788-0) PLT (test code = See_Comment [Automated 777-3) message] The system which generated this result transmit jung reference range : 166 - 358 10*3/ ?L. The reference range was not u sed to interpret th is result as normal/abnormal . MPV (test code = 8.6 fL 9.5-12.9 L 86185-2) NRBC/100 WBC (test See_Comment [Automat ed code = 3731274035) message] The system which generated this result transmit jung reference range : 0.0 - 10.0 /100 WBCs. The reference range was not used to interpret this result as normal/abnormal . NRBC x10^3 (test code <0.01 See_Comment [Auto mated = 5015310446) message] The system which generated this result transmit jung reference range : 10*3/?L. The reference range was not used to interpret this result as normal/abnormal . GRAN MAT (NEUT) % 91.3 % (test code = 770-8) IMM GRAN % (test code 0.50 % = 0288464985) LYMPH % (test code = 3.4 % 736-9) MONO % (test code = 4.4 % 5905-5) EOS % (test code = 0.1 % 713-8) BASO % (test code = 0.3 % 706-2) GRAN MAT x10^3(ANC) 14.18 10*3/uL 1.88-7.09 H (test code = 4335701746) IMM GRAN x10^3 (test 0.07 10*3/uL 0.00-0.06 H code = 3051292178) LYMPH x10^3 (test code 0.52 10*3/uL 1.32-3.29 L = 731-0) MONO x10^3 (test code 0.68 10*3/uL 0.33-0.92 = 742-7) EOS x10^3 (test code = <0.03 0.03-0.39 L 711-2) BASO x10^3 (test code 0.04 10*3/uL 0.01-0.07 = 704-7) Lab Interpretation Abnormal (test code = 28232-1) [facility]. METABOLIC PANEL ([id number])2021-04-22 16:28:29 Test Item Value Reference Range Interpretation Comments NA (test code = 135 mmol/L 135-145 9701862166) K (test code = 3.2 mmol/L 3.5-5.0 L 3228532675) CL (test code = 105 mmol/L 98-108 1664281584) CO2 TOTAL (test code = 22 mmol/L 23-31 L 9853927976) AGAP (test code = 2-16 9852857157) BUN (test code = 2 mg/dL 7-23 L 0521748768) GLUCOSE (test code = 98 mg/dL 70-110 2641742279) CREATININE (test code = 0.40 mg/dL 0.50-1.04 L 4276542016) TOTAL BILI (test code = 0.3 mg/dL 0.1-1.3 3098912262) CALCIUM (test code = 8.0 mg/dL 8.6-10.6 L 4706362275) T PROTEIN (test code = 6.2 g/dL 6.3-8.2 L 6851927913) ALBUMIN (test code = 3.6 g/dL 3.5-5.0 9919921102) ALK PHOS (test code = 58 U/L 34-122 2724930929) ALTv (test code = 19 U/L 5-35 1742-6) AST(SGOT) (test code = 48 U/L 13-40 H 6810604275) eGFR (test code = mL/min/1.73m2 8387185450) ELENI (test code = ELENI) Association of Glomerular Filtration Rate (GFR) and Staging of Kidney Disease* + --+ --+ ------+| GFR (mL/min/1.73 m2) ?| With Kidney Damage ?| ?Without Kidney Damage+ --------+ --------+ +| ?>90 ?| ?Stage one ?| ? Normal ?+ ---+ ---+ -------+| ?60-89 ?| ?Stage two ?| ? Decreased GFR ? + --+ --+ ------+| ?30-59 ?| ?Stage three ?| ? Stage three ? + --+ --+ ------+| ?15-29 ?| ?Stage four ? | ? Stage four ?+ ---+ ---+ -------+| ?<15 (or dialysis) ? ?| ?Stage five ? | ? Stage five ?+ ---+ ---+ -------+ *Each stage assumes the associated GFR level has been in effect for at least three months. ?Stages 1 to 5, with or without kidney disease, indicate chronic kidney disease. Notes: Determination of stages one and two (with eGFR >59mL/min/1.73 m2) requires estimation of kidney damage for at least three months as defined by structural or functional abnormalities of the kidney, manifested by either:Pathological abnormalities or Markers of kidney damage (including abnormalities in the composition of the blood or urine or abnormalities in imaging tests). Lab Interpretation Abnormal (test code = 32917-1) [facility]. METABOLIC PANEL ([id number])2021-04-22 16:28:29 Test Item Value Reference Range Interpretation Comments NA (test code = 135 mmol/L 135-145 8696447711) K (test code = 3.2 mmol/L 3.5-5.0 L 9618228469) CL (test code = 105 mmol/L 98-108 9575145869) CO2 TOTAL (test code = 22 mmol/L 23-31 L 0641951722) AGAP (test code = 2-16 5146352103) BUN (test code = 2 mg/dL 7-23 L 2302706937) GLUCOSE (test code = 98 mg/dL 70-110 5713846809) CREATININE (test code = 0.40 mg/dL 0.50-1.04 L 5587638578) TOTAL BILI (test code = 0.3 mg/dL 0.1-1.5 2348329152) CALCIUM (test code = 8.0 mg/dL 8.6-10.6 L 7623824252) T PROTEIN (test code = 6.2 g/dL 6.3-8.2 L 0085004203) ALBUMIN (test code = 3.6 g/dL 3.5-5.0 4080393603) ALK PHOS (test code = 58 U/L 34-122 9901659600) ALTv (test code = 19 U/L 5-35 1742-6) AST(SGOT) (test code = 48 U/L 13-40 H 1159659393) eGFR (test code = mL/min/1.73m2 9784560525) ELENI (test code = ELENI) Association of Glomerular Filtration Rate (GFR) and Staging of Kidney Disease* + --+ --+ ------+| GFR (mL/min/1.73 m2) ?| With Kidney Damage ?| ?Without Kidney Damage+ --------+ --------+ +| ?>90 ?| ?Stage one ?| ? Normal ?+ ---+ ---+ -------+| ?60-89 ?| ?Stage two ?| ? Decreased GFR ? + --+ --+ ------+| ?30-59 ?| ?Stage three ?| ? Stage three ? + --+ --+ ------+| ?15-29 ?| ?Stage four ? | ? Stage four ?+ ---+ ---+ -------+| ?<15 (or dialysis) ? ?| ?Stage five ? | ? Stage five ?+ ---+ ---+ -------+ *Each stage assumes the associated GFR level has been in effect for at least three months. ?Stages 1 to 5, with or without kidney disease, indicate chronic kidney disease. Notes: Determination of stages one and two (with eGFR >59mL/min/1.73 m2) requires estimation of kidney damage for at least three months as defined by structural or functional abnormalities of the kidney, manifested by either:Pathological abnormalities or Markers of kidney damage (including abnormalities in the composition of the blood or urine or abnormalities in imaging tests). Lab Interpretation Abnormal (test code = 07081-6) [facility] WITH [id number] 16:18:45 Test Item Value Reference Range Interpretation Comments WBC (test code = See_Comment [Automated 6690-2) message] The sy stem which generated this result transmitted reference range : 4.30 - 11.10 10*3/?L. The reference range was not used to interpret this result as normal/abnormal . RBC (test code = See_Comment L [Automated 789-8) message] The sy stem which generated this result transmitted reference range : 3.93 - 5.25 10*6/?L. The reference range was not used to interpret this result as normal/abnormal . HGB (test code = 7.2 g/dL 11.6-15.0 L 718-7) HCT (test code = 24.3 % 35.7-45.2 L 4544-3) MCV (test code = 74.8 fL 80.6-95.5 L 787-2) MCH (test code = 22.2 pg 25.9-32.8 L 785-6) MCHC (test code = 29.6 g/dL 31.6-35.1 L 786-4) RDW-SD (test code = 42.5 fL 39.0-49.9 41312-5) RDW-CV (test code = 15.8 % 12.0-15.5 H 788-0) PLT (test code = See_Comment [Automated 777-3) message] The sy stem which generated this result transmitted reference range : 166 - 358 10*3/ ?L. The reference r chayo was not used to interpret this result as normal/abnormal . MPV (test code = 8.9 fL 9.5-12.9 L 04366-7) NRBC/100 WBC (test See_Comment [Automat ed code = 4325459311) message] The system which generated this result transmitted reference range : 0.0 - 10.0 /100 WBCs. The refer ence range was not u sed to interpret th is result as normal/abnormal . NRBC x10^3 (test code <0.01 See_Comment [Auto mated = 9986173609) message] The s ystem which generated this result transmitted reference range : 10*3/?L. The reference range was not used to interpret this result as normal/abnormal . GRAN MAT (NEUT) % 69.2 % (test code = 770-8) IMM GRAN % (test code 0.50 % = 6730998186) LYMPH % (test code = 16.0 % 736-9) MONO % (test code = 12.7 % 5905-5) EOS % (test code = 1.0 % 713-8) BASO % (test code = 0.6 % 706-2) GRAN MAT x10^3(ANC) 4.29 10*3/uL 1.88-7.09 (test code = 3972999936) IMM GRAN x10^3 (test 0.03 10*3/uL 0.00-0.06 code = 9489693202) LYMPH x10^3 (test code 0.99 10*3/uL 1.32-3.29 L = 731-0) MONO x10^3 (test code 0.79 10*3/uL 0.33-0.92 = 742-7) EOS x10^3 (test code = 0.06 10*3/uL 0.03-0.39 711-2) BASO x10^3 (test code 0.04 10*3/uL 0.01-0.07 = 704-7) Lab Interpretation Abnormal (test code = 06107-6) [facility] WITH [id number] 16:18:45 Test Item Value Reference Range Interpretation Comments WBC (test code = See_Comment [Automated 6690-2) message] The sy stem which generated this result transmitted reference range : 4.30 - 11.10 10*3/?L. The reference range was not used to interpret this result as normal/abnormal . RBC (test code = See_Comment L [Automated 789-8) message] The sy stem which generated this result transmitted reference range : 3.93 - 5.25 10*6/?L. The reference range was not used to interpret this result as normal/abnormal . HGB (test code = 7.2 g/dL 11.6-15.0 L 718-7) HCT (test code = 24.3 % 35.7-45.2 L 4544-3) MCV (test code = 74.8 fL 80.6-95.5 L 787-2) MCH (test code = 22.2 pg 25.9-32.8 L 785-6) MCHC (test code = 29.6 g/dL 31.6-35.1 L 786-4) RDW-SD (test code = 42.5 fL 39.0-49.9 05603-8) RDW-CV (test code = 15.8 % 12.0-15.5 H 788-0) PLT (test code = See_Comment [Automated 777-3) message] The sy stem which generated this result transmitted reference range : 166 - 358 10*3/ ?L. The reference r chayo was not used to interpret this result as normal/abnormal . MPV (test code = 8.9 fL 9.5-12.9 L 55835-1) NRBC/100 WBC (test See_Comment [Automat ed code = 1025479273) message] The system which generated this result transmitted reference range : 0.0 - 10.0 /100 WBCs. The refer ence range was not u sed to interpret th is result as normal/abnormal . NRBC x10^3 (test code <0.01 See_Comment [Auto mated = 1528098434) message] The s ystem which generated this result transmitted reference range : 10*3/?L. The reference range was not used to interpret this result as normal/abnormal . GRAN MAT (NEUT) % 69.2 % (test code = 770-8) IMM GRAN % (test code 0.50 % = 0097539432) LYMPH % (test code = 16.0 % 736-9) MONO % (test code = 12.7 % 5905-5) EOS % (test code = 1.0 % 713-8) BASO % (test code = 0.6 % 706-2) GRAN MAT x10^3(ANC) 4.29 10*3/uL 1.88-7.09 (test code = 2839035956) IMM GRAN x10^3 (test 0.03 10*3/uL 0.00-0.06 code = 8661016822) LYMPH x10^3 (test code 0.99 10*3/uL 1.32-3.29 L = 731-0) MONO x10^3 (test code 0.79 10*3/uL 0.33-0.92 = 742-7) EOS x10^3 (test code = 0.06 10*3/uL 0.03-0.39 711-2) BASO x10^3 (test code 0.04 10*3/uL 0.01-0.07 = 704-7) Lab Interpretation Abnormal (test code = 41209-6) [facility] Packed RBC (in units), 1 Units 2021-04-22 15:47:25 Test Item Value Reference Range Interpretation Comments Cross Match Result Compatible (test code = 4409) ISBT Blood Type Code (test code = 995366) Unit Blood Type (test O Pos code = 4410) Unit Number (test [id number] code = 4411) Blood Expiration Date & Time (test code = 325619) Status Information Issued (test code = 4412) Product Red Blood Cells Identification (test code = 4413) Product Code (test [id number] Performed at [facility] code = 4414) Laboratory [facility] Blood [address] s [address]Sfdm Free: [phone] A No. [id number] [facility] Packed RBC (in units), 1 Units 2021-04-22 15:47:25 Test Item Value Reference Range Interpretation Comments Cross Match Result Compatible (test code = 4409) ISBT Blood Type Code (test code = 871197) Unit Blood Type (test O Pos code = 4410) Unit Number (test [id number] code = 4411) Blood Expiration Date & Time (test code = 297293) Status Information Issued (test code = 4412) Product Red Blood Cells Identification (test code = 4413) Product Code (test C7437U30 Performed at [facility] code = 4414) Laboratory Services [facility] Blood [address] [place] [address] s [address]Qmzt Free: [phone] A No. [id number] [facility] Screen - ONCE [id number] 14:26:08 Test Item Value Reference Range Interpretation Comments ABO & RH (test code O POSITIVE Performe d at [facility] = 20) Laboratory Serv [facility] Blood [facility]3 [address] [facility] s [address]Xszq Free: [phone] A No. [id number] IAT (test code = Negative Performed a t [facility] 1185) Laboratory Serv [facility] Blood [facility] [place] [address]Cpki Free: [phone] A No. [id number] [facility] Screen - ONCE [id number] 14:26:08 Test Item Value Reference Range Interpretation Comments ABO & RH (test code O POSITIVE Performe d at [facility] = 20) Laboratory Serv [facility] Blood [facility] [address] [place] [address]Exjk Free: [phone] A No. [id number] IAT (test code = Negative Performed a t [facility] 1185) Laboratory [facility] Blood [facility] [address] [place] [address]Qsdf Free: [phone] A No. [id number] [facility] GLUCOSE (AUTOMATED)2021-04-22 13:28:07 Test Item Value Reference Range Interpretation Comments POCT GLU (test code = 0977766369) 107 mg/dL 70-110 Lab Interpretation (test code = Normal 71537-7) [facility] GLUCOSE (AUTOMATED)2021-04-22 13:28:07 Test Item Value Reference Range Interpretation Comments POCT GLU (test code = 2898097178) 107 mg/dL 70-110 Lab Interpretation (test code = Normal 24718-3) [facility]
[2021-06-01 17:44] LABS: Absolute Lymphocytes (CBC) 1.4 K/uL (0.7-4.9); Hematocrit 34.3 % (36.0-45.0); Lymphocytes % 14.8 % (15.3-44.8); RBC Red Blood Cell Count 4.26 M/uL (3.86-4.86)
[2021-06-01] MEDS ORDERED: MORPHINE 4 MG/ML SYR ONE (17:52)
--- NOTE | 2021-06-01 17:56 | RAD REPORT ---
EXAM DESCRIPTION: RAD - Chest Single View - 06/01/2021 5:46 pm CLINICAL HISTORY: CHEST PAIN COMPARISON: No comparisons FINDINGS: Lines: Pacemaker. Lungs: No evidence of edema or pneumonia. Pleural: No significant pleural effusions or pneumothorax. Cardiac: The heart size is within normal limits. Bones: No acute fractures. Other: IMPRESSION: No acute cardiopulmonary disease.
[2021-06-01 18:01] LABS: Potassium 3.6 mmol/L (3.5-5.1); Troponin High Sensitivity 3.5 pg/mL (<58.9)
--- NOTE | 2021-06-01 18:19 | EDPHYS ---
Physician Documentation [facility] Name: Jennifer Petty Age: 60 yrs Sex: Female : 1960 Arrival Date: 06/01/2021 Time: 17:09 Bed 7 Private MD: ED Physician Dean Miller HPI: 06/01 17:21 This 60 yrs old Female presents to ER via EMS with complaints of chest pain. rn 17:21 The patient or guardian reports chest pain that is located primarily in the anterior rn chest wall. Onset: just prior to arrival. The pain does not radiate. Associated signs and symptoms: Pertinent positives: None. Pertinent negatives: abdominal pain, cough, diaphoresis, headache, palpitations, shortness of breath, syncope, vomiting. The chest pain is described as aching. Duration: The patient or guardian reports a single episode, that is now resolved. Modifying factors: The symptoms are alleviated by nothing. the symptoms are aggravated by nothing. Severity of pain: At its worst the pain was mild in the emergency department the pain has improved. The patient has experienced similar episodes in the past. The patient has not recently seen a physician. Pt reports chest pain, happens often, usually in setting of high blood pressure, usually takes extra propranolol at home, but [facility] and they wouldn't allow her to take her extra pill. Reports CP already improving, almost gone. No fever/cough/trauma/hemoptysis. NO hx of dvt/pe. No hx of cardiac problems. Also reports not getting her regular pain medication while at [facility]. . Historical: - Allergies: 17:36 BACLOFEN; jg9 17:36 Ciprofloxacin; jg9 17:36 GABAPENTIN; jg9 17:36 iodine I 131 Tosutumomab; jg9 17:36 Lisinopril; jg9 17:36 Losartan; jg9 17:36 morphine; jg9 17:36 topiramate; jg9 17:36 tramadol; jg9 17:36 Cymbalta; jg9 17:36 Depakote; jg9 17:36 Macrobid; jg9 17:36 Midrin; jg9 17:36 Robaxin; jg9 17:36 Septra; jg9 17:36 Sinografin; jg9 17:36 Toradol; jg9 17:36 Adhesives; jg9 - PMHx: 17:39 dementia without behavioral disturbances; Anemia; Hypertensive disorder; GERD; jg9 epilepsy; Lupus erythematosus; Fibromyalgia; Hypothyroidism; hyperlipidemia; vitamin d deficiency; insomnia; peptic ulcer; cva; allergic rhinitis; protein-calorie malnutrition; - Immunization history:: Client reports having NOT received the Covid vaccine. Pneumococcal vaccine is up to date, Flu vaccine is up to date. - Social history:: Smoking status: Patient denies any tobacco usage or history of. - Family history:: not pertinent. - Hospitalizations: : No recent hospitalization is reported. ROS: 17:21 Constitutional: Negative for fever, chills, and weight loss, Eyes: Negative for injury, rn pain, redness, and discharge, Neck: Negative for injury, pain, and swelling, Cardiovascular: Negative for palpitations, and edema, Respiratory: Negative for shortness of breath, cough, wheezing, and pleuritic chest pain, Abdomen/GI: Negative for abdominal pain, nausea, vomiting, diarrhea, and constipation, Back: Negative for injury and pain, : Negative for injury, bleeding, discharge, and swelling, MS/Extremity: Negative for injury and deformity, Skin: Negative for injury, rash, and discoloration, Neuro: Negative for headache, weakness, numbness, tingling, and seizure. Exam: 17:21 Constitutional: This is a well developed, well nourished patient who is awake, alert, rn and in no acute distress. Head/Face: Normocephalic, atraumatic. Eyes: Periorbital areas with no swelling, redness, or edema. Cardiovascular: Regular rate and rhythm. No pulse deficits. Respiratory: Speaking full sentences, unlabored. No increased work of breathing, no retractions or nasal flaring. Abdomen/GI: Soft, non-tender Skin: Warm, dry MS/ Extremity: Pulses equal, no cyanosis. Neurovascular intact. Full, normal range of motion. Equal circumference. Neuro: Awake and alert, GCS 15 Vital Signs: 17:00 BP 190 / 109; Pulse 84; Resp 17 S; Temp 99.5(TE); Pulse Ox 100% on R/A; Weight 86.64 jg9 kg; Height 5 ft. 9 in. (175.26 cm); Pain 8/10; 18:07 BP 179 / 96; rn 18:30 BP 171 / 92; Pulse 86; Resp 17 S; Pulse Ox 100% on R/A; Pain 8/10; jg9 17:00 Body Mass Index 28.21 (86.64 kg, 175.26 cm) jg9 MDM: 17:11 Patient medically screened. rn 18:18 Differential diagnosis: acute myocardial infarction, acute pericarditis, anxiety, chest rn wall pain, pleurisy, pneumothorax. Data reviewed: vital signs, nurses notes, lab test result(s), EKG, radiologic studies, plain films, and as a result, I will discharge patient. Counseling: I had a detailed discussion with the patient and/or guardian regarding: the historical points, exam findings, and any diagnostic results supporting the discharge/admit diagnosis, lab results, radiology results, the need for outpatient follow up, to return to the emergency department if symptoms worsen or persist or if there are any questions or concerns that arise at home. Response to treatment: the patient's symptoms have markedly improved after treatment, and as a result, I will discharge patient. Special discussion: I discussed with the patient/guardian in detail that at this point there is no indication for admission to the hospital. It is understood, however, that if the symptoms persist or worsen the patient needs to return immediately for re-evaluation. 06/01 17:11 Order name: Basic Metabolic Panel; Complete Time: 18:04 rn 06/01 17:11 Order name: CBC with Diff; Complete Time: 18: rn 06/01 17:11 Order name: NT PRO-BNP; Complete Time: 18: rn 06/01 17:11 Order name: Troponin HS; Complete Time: 18:04 rn 06/01 17:11 Order name: XRAY Chest (1 view); Complete Time: 18:01 rn 06/01 18:22 Order name: CBC Smear Scan; Complete Time: 18:23 EDMS 06/01 17:11 Order name: EKG; Complete Time: 17:12 rn 06/01 17:11 Order name: Cardiac monitoring; Complete Time: 17:44 rn 06/01 17:11 Order name: EKG - Nurse/Tech; Complete Time: 18:00 rn 06/01 17:11 Order name: Labs collected and sent; Complete Time: 17: rn 06/01 17:11 Order name: O2 Per Protocol; Complete Time: 19:12 rn 06/01 17:11 Order name: O2 Sat Monitoring; Complete Time: 17:44 rn Administered Medications: 18:06 Not Given (Duplicate Order): morphine 4 mg IVP once; RASS on ADMIN: Combtv4, Very rn Agttd3, Agttd2, Rstlss1, AlertClm0, Drwsy-1, Lt Sdtn-2, Mod Sdtn-3, Dp Sdtn-4, UnArsble-5 18:44 Drug: Avinger (HYDROcodone-acetaminophen) 10 mg-325 mg 1 tabs {Note: RASS-0.} Route: PO; jg9 19:03 Follow up: Response: No adverse reaction 9 19:03 Drug: Propranolol 40 mg Route: PO; jg9 20:25 Follow up: Response: No adverse reaction as6 Disposition Summary: 06/01/21 18:19 Discharge Ordered Location: Home rn Problem: new rn Symptoms: have improved rn Condition: Stable rn Diagnosis - Chest pain, unspecified rn - Essential (primary) hypertension rn Followup: rn - With: Private Physician - When: As needed - Reason: Recheck today's complaints, Re-evaluation by your physician Discharge Instructions: - Discharge Summary Sheet rn - Nonspecific Chest Pain, Adult rn - Hypertension, Adult rn Forms: - Medication Reconciliation Form rn - Thank You Letter rn - Antibiotic sport internship - Prescription Opioid Use rn - SBAR form kd3 Signatures: Dispatcher [employer] Dean Quinn MD MD rn Gilmore, Jennifer, RN RN jg9 Baldemar Grant RN as6 Corrections: (The following items were deleted from the chart) 18:13 17:11 IV Saline Lock ordered. rn jg9
--- NOTE | 2021-06-01 18:19 | ER ---
Nurse's Notes [facility] Name: Jennifer Petty Age: 60 yrs Sex: Female : 1960 Arrival Date: 06/01/2021 Time: 17:09 Bed 7 Private MD: Diagnosis: Chest pain, unspecified;Essential (primary) hypertension Presentation: 06/01 17:00 Chief complaint: EMS states: Patient is here from [facility] for evaluation after she jg9 c/o chest pressure. Patient was advised by her physician to take an extra propranolol when she is experiencing chest discomfort but the facility ([facility]) would not give her an extra one to take because it is not written as a order, patient reports that when her BP is elevated she experiences this chest pressure. Coronavirus screen: Vaccine status: Patient reports being unvaccinated. Ebola Screen: Patient negative for fever greater than or equal to 101.5 degrees Fahrenheit, and additional compatible Ebola Virus Disease symptoms Patient denies exposure to infectious person. Patient denies travel to an Ebola-affected area in the 21 days before illness onset. Initial Sepsis Screen: Does the patient meet any 2 criteria? No. Patient's initial sepsis screen is negative. Does the patient have a suspected source of infection? No. Patient's initial sepsis screen is negative. Risk Assessment: Do you want to hurt yourself or someone else? Patient reports no desire to harm self or others. Onset of symptoms was June 01, 2021. 17:00 Method Of Arrival: EMS: [facility] j9 17:00 Acuity: JOSE ENRIQUE 3 jg9 Triage Assessment: 17:00 General: Appears in no apparent distress. Behavior is calm, cooperative. Pain: jg9 Complains of pain in chest Pain does not radiate. Pain currently is 8 out of 10 on a pain scale. Historical: - Allergies: 17:36 BACLOFEN; jg9 17:36 Ciprofloxacin; jg9 17:36 GABAPENTIN; jg9 17:36 iodine I 131 Tosutumomab; jg9 17:36 Lisinopril; jg9 17:36 Losartan; jg9 17:36 morphine; jg9 17:36 topiramate; jg9 17:36 tramadol; jg9 17:36 Cymbalta; jg9 17:36 Depakote; jg9 17:36 Macrobid; jg9 17:36 Midrin; jg9 17:36 Robaxin; jg9 17:36 Septra; jg9 17:36 Sinografin; jg9 17:36 Toradol; jg9 17:36 Adhesives; jg9 - PMHx: 17:39 dementia without behavioral disturbances; Anemia; Hypertensive disorder; GERD; jg9 epilepsy; Lupus erythematosus; Fibromyalgia; Hypothyroidism; hyperlipidemia; vitamin d deficiency; insomnia; peptic ulcer; cva; allergic rhinitis; protein-calorie malnutrition; - Immunization history:: Client reports having NOT received the Covid vaccine. Pneumococcal vaccine is up to date, Flu vaccine is up to date. - Social history:: Smoking status: Patient denies any tobacco usage or history of. - Family history:: not pertinent. - Hospitalizations: : No recent hospitalization is reported. Screenin:43 Abuse screen: Denies threats or abuse. Denies injuries from another. Nutritional jg9 screening: No deficits noted. Tuberculosis screening: No symptoms or risk factors identified. Fall Risk Fall in past 12 months (25 points). Assessment: 20:01 Reassessment: attempted to call [facility] for transportation. no answer. kd3 20:02 General: Appears in no apparent distress. Behavior is calm, cooperative. Neuro: Level kd3 of Consciousness is awake, alert, obeys commands, Oriented to person, place, time, situation. Respiratory: Airway is patent Trachea midline Respiratory effort is even, unlabored. Vital Signs: 17:00 BP 190 / 109; Pulse 84; Resp 17 S; Temp 99.5(TE); Pulse Ox 100% on R/A; Weight 86.64 jg9 kg; Height 5 ft. 9 in. (175.26 cm); Pain 8/10; 18:07 BP 179 / 96; rn 18:30 BP 171 / 92; Pulse 86; Resp 17 S; Pulse Ox 100% on R/A; Pain 8/10; jg9 17:00 Body Mass Index 28.21 (86.64 kg, 175.26 cm) j9 ED Course: 17:09 Patient arrived in ED. iw 17:11 Dean Miller MD is Attending Physician. rn 17:14 Doreen Smith RN is Primary Nurse. j9 17:18 Triage completed. j9 17:43 Arm band placed on right wrist. jg9 17:43 Patient has correct armband on for positive identification. Bed in low position. Call j9 light in reach. Side rails up X 1. 17:47 XRAY Chest (1 view) In Process Unspecified. EDMS 19:13 Primary Nurse role handed off by Doreen Smith, AYLIN mw2 19:59 Mora Johns, RN is Primary Nurse. kd3 20:24 No provider procedures requiring assistance completed. Patient did not have IV access as6 during this emergency room visit. Administered Medications: 18:06 Not Given (Duplicate Order): morphine 4 mg IVP once; RASS on ADMIN: Combtv4, Very rn Agttd3, Agttd2, Rstlss1, AlertClm0, Drwsy-1, Lt Sdtn-2, Mod Sdtn-3, Dp Sdtn-4, UnArsble-5 18:44 Drug: Mather (HYDROcodone-acetaminophen) 10 mg-325 mg 1 tabs {Note: RASS-0.} Route: PO; jg9 19:03 Follow up: Response: No adverse reaction j9 19:03 Drug: Propranolol 40 mg Route: PO; j9 20:25 Follow up: Response: No adverse reaction as6 Outcome: 18:19 Discharge ordered by . rn 20:25 Discharged to home ambulatory, via ambulance. as6 20:25 Condition: stable 20:25 Discharge instructions given to patient, Instructed on discharge instructions, follow up and referral plans. Demonstrated understanding of instructions, follow-up care. 20:26 Patient left the ED. as6 Signatures: Dispatcher [employer] EDMS Lennie Bergman, Dean Jeong RN, MD MD rn [place], MyKena mw2 Baldemar Grant RN RN as6 Mora Johns RN RN kd3 Doreen Smith RN RN jg9
[2021-06-01 18:21] LABS: Platelet Estimate ADEQ; White Blood Cell Scan OK (OK)
[2021-06-01 18:22] LABS: Anisocytosis 1+; Blood Morphology Comment NOTED (NOT SEEN)
[2021-06-01] MEDS ORDERED: HYDROCODONE/APAP 10/325 TAB ONE (18:47)
[2021-06-01] MEDS ORDERED: PROPRANOLOL HCL 40 MG TAB PO SCH (19:00)
[2021-06-01 22:26] VITALS: BP 171/92; O2SAT 100
--- NOTE | 2021-06-02 09:32 | EKG ---
Test Date: 2021-06-01 Test Time: 17:52:30 Recruiting Consultant: JAILENE MEASUREMENT RESULTS: Intervals: Rate: 79 KS: 202 QRSD: 84 QT: 426 QTc: 488 [place]: P: 56 KS: 202 QRS: 53 T: 46 INTERPRETIVE STATEMENTS: Normal sinus rhythm Normal ECG No previous ECG available for comparison Electronically Signed On 06-02-21 09:31:46 CDT by Qamar Smith
== END 2021-06-01 20:26 | disposition home or self-care (01) ==
LOC: ER 17:07
DX: R07.9 Chest pain, unspecified (principal); I10 Essential (primary) hypertension; Z88.1 Allergy status to other antibiotic agents; Z91.09 Other allergy status, other than to drugs and biological substances; Z88.8 Allergy status to other drugs, medicaments and biological substances; Z88.6 Allergy status to analgesic agent
CPT/HCPCS: 36415; 71045; 80048; 83880; 84484; 85025; 93005; 99283

== ENCOUNTER 2021-10-28 20:10 | Emergency (ER) | payer OTHER ==
--- OUTSIDE RECORDS SUMMARY | 2021-10-28 20:14 | XMS REPORT | Continuity of Care Document ---
:1960 Author Organization [facility] t Address [address] [place] [address] Care Team Providers Name Role Phone Jad AMIN, Denny Estes Primary Care Physician DIANNA FENG Attending Clinician Unavailable DAGOBERTO SHAW Attending Clinician Unavailable Doctor Unassigned, [place] Attending Clinician Unavailable Joseph AMIN, Ludmila Attending Clinician Payers Payer Name Policy Type Policy Number Effective Date Expiration Date S erick MEDICARE PART A [id number] 1996 \T\ B 00:00:00 MEDICAID OF [place] [id number] 2017 00:00:00 Problems Condition Condition Condition Status Onset Resolution Last Treating Co mments Source Name Details Category Date Date Treatment Clinician Date Incisional Incisional Disease Active U nivers hernia, hernia, 8-28 ity of without without 00:00: [place] obstructio obstructio 00 Me dical n or n or Branch gangrene gangrene Frequent Frequent Disease Active Unive rs falls falls 4-07 ity of 00:00: [place] [address] Medical Branch Attention Attention Disease Active Uni vers to to 3-16 ity of colostomy colostomy 00:00: [place] [address] Medical Branch Colostomy Colostomy Disease Active Uni vers status status 3-16 ity of 00:00: [place] [address] Medical Branch Stercoral Stercoral Disease Active Overview: Univers ulcer of ulcer of 04-07 Formattin ity of large large 00:00: g of this [place] intestine intestine 00 note Medi landry might be Branch different from the original. Added automatic ally from request for surgery [id number] Colostomy Colostomy Disease Active Overview: Univers in place in place 2-11 Formattin ity of 00:00: g of this [place] 00 note Medical might be Branch different from the original. Added automatic ally from request for surgery [id number] GIB GIB Disease Active Univers (gastroint (gastroint 09 it y of estinal estinal 00:00: [place] bleeding) bleeding) 00 Medi landry Branch Melena Melena Disease Active Overview: Univer s -08 Formattin ity of 00:00: g of this [place] 00 note Medical might be Branch different from the original. Added automatic ally from request for surgery [id number] Parastomal Parastomal Disease Active 2020-02 U nivers hernia hernia 0-19 ity of without without 00:00: [place] obstructio obstructio 00 Me dical n or n or Branch gangrene gangrene Syncope Syncope Disease Active Univers and and 8 ity of collapse collapse 00:00: [place] 00 Medical Branch Dyslipidem Dyslipidem Disease Active U nivers ia ia 8-09 ity of 00:00: [place] 00 Medical Branch Sinus Sinus Disease Active Univers pause pause 8-09 ity of status status 00:00: [place] post PPM post PPM 00 Medica l Branch Hypokalemi Hypokalemi Disease Active U nivers a a 8-09 ity of 00:00: [place] 00 Medical Branch Noncomplia Noncomplia Disease Active U nivers nce with nce with 4-12 ity of treatment treatment 00:00[place] regimen regimen 00 [place] Acute Acute Disease Active Univers blood loss blood loss 4-07 it y of anemia anemia 00:00: [place] 00 Medical Branch Perforatio Perforatio Disease Active U nivers n of n of 4-06 ity of sigmoid sigmoid 00:00: [place] colon s/p colon s/p 00 Medi landry Corby's Corby's Br anch on on 05/13/2020 05/13/2020 Therapeuti Therapeuti Disease Active U nivers c c 4-06 ity of opioid-ind opioid-ind 00:00[place] uced uced 00 Medical constipati constipati Br anch on (OIC) on (OIC) Chronic, Chronic, Disease Recurre Overview: U nivers continuous continuous nce 4-06 Formattin ity of use of use of 00:00: g of this [place] opioids opioids 00 note Medical might be Branch different from the original. 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 2-10 ity of 00:00: [place] [facility] History of History of Disease Active U nivers systemic systemic 2-10 ity of lupus lupus 00:00: [place] erythemato erythemato 00 Me dical liliya (SLE) liliya (SLE) Bran ch History of History of Disease Active 2018-02 U nivers seizure seizure 2-05 ity of 00:00: [place] [facility] Mixed Mixed Disease Active Univers hyperlipid hyperlipid 9-20 it y of emia emia 00:00: [place] [facility] Prediabete Prediabete Disease Active U nivers s s 4-10 ity of 00:00: [place] [facility] Kidney Kidney Disease Active Overview: Univer s lesion, lesion, 3-25 Formattin ity o f ione, ione, 00:00: g of this [place] right right 00 note Medical might be Branch different from the original. likely angiolipo ma per Radiology Hyperthyro Hyperthyro Disease Active 2017-02 U nivers idism idism 2-19 ity of 00:00: [place] [facility] Obesity Obesity Disease Active 2017-02 Univers (BMI (BMI 2-17 ity of 30-39.9) 30-39.9) 00:00: [place] [facility] Vitamin D Vitamin D Disease Active Uni vers deficiency deficiency 9-20 it y of 00:00: [place] [facility] Chronic Chronic Disease Active Univers insomnia insomnia 9-09 ity of 00:00: [place] [address] Medical Branch Chronic Chronic Disease Active Univers migraine migraine 10-16 ity of without without 00:00: [place] aura aura 00 Medical without without Branch status status migrainosu migrainosu s, not s, not intractabl intractabl e e Neuropathy Neuropathy Disease Active U nivers 10-16 ity of 00:00: [place] [facility] Pacemaker Pacemaker Disease Recurre Un berta nce 10-16 ity of 00:00: Medical Branch Essential Essential Disease Active Uni vers hypertensi hypertensi 10-16 it y of on on 00:00: [place] [facility] History of History of Disease Active U nivers hepatitis hepatitis 10-16 ity of C C 00:00: Medical Branch PUD PUD Disease Active Univers (peptic (peptic 10-16 ity of ulcer ulcer 00:00: [place] disease) disease) 00 Medica l Branch Gastroesop Gastroesop Disease Active U nivers hageal hageal 10-16 ity of reflux reflux 00:00: [place] disease, disease, 00 Medica l esophagiti esophagiti Br anch s presence s presence not not specified specified History of History of Disease Active U nivers urinary urinary 10-16 ity of tract tract 00:00: [place] surgery surgery Medical Branch Fibromyalg Fibromyalg Disease Active U nivers ia ia 10-16 ity of 00:00: [place] [facility] Parasomnia Parasomnia Disease Active U nivers 10-16 ity of 00:00: Medical Branch Anxiety Anxiety Disease Active Overview: Univ ers 02-20 Formattin ity of 00:00: g of this note Medical might be Branch different from the original. Formattin g of this note might be different from the original. H/o cx pain Vitamin Vitamin Disease Active Univers B12 B12 02-20 ity of deficiency deficiency 00:00[place] [facility] [place] IBS IBS Disease Active 2007-02 Univers (irritable (irritable 2-04 it y of bowel bowel 00:00: [place] syndrome) syndrome) 00 Medi landry Branch Visceral Visceral Disease Active 2007-02 Unive rs hyperalges hyperalges 2-04 it y of ia ia 00:00: [place] [facility] Allergic Allergic Disease Active Unive rs rhinitis rhinitis ity of [place] [facility] [place] Cyst of Cyst of Disease Active Univers left left ity of kidney kidney [facility] Allergies, Adverse Reactions, Alerts Allergy Allergy Status Severity Reaction(s) Onset Inactive Treating Comm ents Source Name Type Date Date Clinician Gabapent Drug Active Palpitations Un berta in Allergy 3-16 ity of 00:00: [place] 00 Medical Branch GABAPENT DRUG Active Palpitations Un berta IN INGREDI -16 ity of 00:00: [place] 00 Medical Branch Losartan Propensi Active Cough 2019-0 Univer s ty to 07-03 ity of adverse 00:00: [place] reaction 00 Medical s Branch LOSARTAN DRUG Active COUGH Univers INGREDI 07-03 ity of 00:00: [place] [facility] Lisinopr Propensi Active Cough Univer s il ty to 10-16 ity of adverse 00:00: [place] reaction Medical s Branch LISINOPR DRUG Active COUGH Univers IL INGREDI 10-16 ity of 00:00: [place] 00 Medical Branch Baclofen Propensi Active Hallucinatio Univers ty to ns 8 ity of adverse 00:00: [place] reaction 00 Medical s Branch Ciproflo Propensi Active Hives Univer s xacin ty to 09-28 ity of adverse 00:00: [place] reaction 00 Medical s Branch Duloxeti Propensi Active Other - See Transami n Univers ne ty to comments 09-28 itis ity of adverse 00:00: [place] reaction 00 Medical s Branch Divalpro Propensi Active Hives Univer s ex ty to 09-28 ity of Sodium adverse 00:00: [place] reaction 00 Medical s Branch Gabapent Propensi Active Unknown - Uni vers in ty to See comments 09-28 ity of Enacarbi adverse 00:00: [place] l reaction 00 Medical s Branch Nitrofur Propensi Active Hives Univer s antoin ty to 8 ity of Monohyd/ adverse 00:00: [place] M-Cryst reaction 00 Medical s Branch Isometh- Propensi Active Shortness of Univers Dichlora ty to Breath 8 ity of l-Acetam adverse 00:00: [place] inophn reaction 00 Medical s Branch Morphine Propensi Active Hives 20180 Univer s Sulfate ty to 8 ity of adverse 00:00: [place] reaction 00 Medical s Branch Methocar Propensi Active Diarrhea 20180 Univ ers bamol ty to 09-28 ity of adverse 00:00: [place] reaction 00 Medical s Branch Septra Propensi Active Shortness of 2018-0 Un berta I.V. ty to Breath 8 ity of adverse 00:00: [place] reaction 00 Medical s Branch Diatrizo Propensi Active Hives 2018-0 Univer s ate And ty to 09-28 ity of Iodipami adverse 00:00: [place] de Amber reaction 00 Medical s Branch Topirama Propensi Active Other - See 2018-0 [place] , Univers te ty to comments 09-28 overwhelm ity o f adverse 00:00: ing [place] reaction 00 feeliing Medica l s Branch Ketorola Propensi Active Other - See 2018-0 Restless Univers c ty to comments 09-28 legs ity of Trometha adverse 00:00: [place] mine reaction 00 Medical s Branch [place] [address] shaky U nivers ty to comments 09-28 legs ity of adverse 00:00: [place] reaction 00 Medical s Branch Adhesive Propensi Active Other - See 2018-0 redness Univers ty to comments 09-28 ity of adverse 00:00: [place] reaction 00 Medical s Branch Iodine Propensi Active Hives 2018- Univers And ty to 09-28 ity of Iodide adverse 00:00: [place] Containi reaction 00 Medica l ng s Branch Products ADHESIVE Drug Active Other-Cmnt 2018 Univ ers Class 8-22 ity of 00:00: [place] 00 Medical Branch BACLOFEN DRUG Active Hallucinates 2018- Un berta INGREDI 8 ity of 00:00: [place] 00 Medical Branch CIPROFLO DRUG Active Hives 2018-0 Univers XACIN INGREDI 8- ity of 00:00: [place] 00 Medical Branch IODINE Drug Active Hives 2018- Univers AND Class 8-22 ity of IODIDE 00:00: [place] CONTAINI 00 Medical NG Branch PRODUCTS DULOXETI DRUG Active Other-Cmnt 2018- Univ ers NE INGREDI 8 ity of 00:00: [place] 00 Medical Branch DIVALPRO DRUG Active Hives 2018-0 Univers EX INGREDI 8-22 ity of SODIUM 00:00: [place] 00 Medical Branch GABAPENT DRUG Active Unknown-Cmnt 2017- Un berta IN INGREDI 09-28 ity of ENACARBI 00:00: [place] L 00 Medical Branch NITROFUR DRUG Active Hives 2018-0 Univers ANTOIN 09-28 ity of MONOHYD/ 00:00: [place] M-CRYST 00 Medical Branch ISOMETH- DRUG Active Hives 2017- Univers DICHLORA 09-28 ity of L-ACETAM 00:00: [place] INOPHN 00 Medical Branch MORPHINE DRUG Active Hives 2017- Univers SULFATE INGREDI 09-28 ity of 00:00: [place] 00 Medical Branch METHOCAR DRUG Active Diarrhea 2017-0 Univer s BAMOL INGREDI 09-28 ity of 00:00: [place] 00 Medical Branch SEPTRA DRUG Active Hives 2018-0 Univers I.V. 09-28 ity of 00:00: [place] 00 Medical Branch DIATRIZO DRUG Active Hives 2018-0 Univers ATE AND 09-28 ity of IODIPAMI 00:00: [place] DE AMBER 00 Medical Branch TOPIRAMA DRUG Active Other-Cmnt 2018-0 Univ ers TE INGREDI 09-28 ity of 00:00: [place] 00 Medical Branch KETOROLA DRUG Active Hives 2017-0 Univers C INGREDI 09-28 ity of TROMETHA 00:00: [place] MINE 00 Medical Branch TRAMADOL DRUG Active Other-Cmnt 2018-0 Univ ers INGREDI 09-28 ity of 00:00: [place] [address] Medical Branch Social History Social Habit Start Date Stop Date Quantity Comments Source History [facility] University o f Alcohol Frequency [facility] edical Branch History [facility] University o f Alcohol Std [place] Medical Drinks Branch History [facility] University o f Alcohol Binge [place] Medic al Branch Exposure to 2021-10-17 2021-10-27 Not sure University of SARS-CoV-2 00:00:00 14:39:00 [facility] (event) Branch Alcohol intake 2021-10-04 2021-10-04 Current drinker Unive rsity of 00:00:00 00:00:00 of alcohol [facility] (finding) Branch Tobacco use and 2021-09-14 2021-09-14 Smokeless tobacco Un iversity of exposure 00:00:00 00:00:00 non-user [facility] Education 2020-01-11 2020-01-11 [address] [place] of 00:00:00 00:00:00 [facility] Alcohol Comment 2018-10-10 2018-10-10 Rare occasions Unive rsity of 00:00:00 00:00:00 [facility] Sex [birth year] Universit y of 00:00:00 00:00:00 [facility] Smoking Status Start Date Stop Date Source Never smoked tobacco [facility] Medications Ordered Filled Start Stop Current Ordering Indication Dosage Frequency Signature Comments Components Source Medication Medication Date Date Medication? Clinician (SIG) Name Name cetirizine 2021-0 Yes 10mg Take 10 mg U nivers 10 mg 8-23 by mouth ity of tablet 15:02: daily. [place] [address] Medical Branch propranoloL 2021-0 Yes 40mg Take 40 mg Univers 40 mg 8-23 by mouth 3 ity of tablet 15:02: (three) [place] 10 times Medical daily. Branch acetaminoph 2021-0 Yes 650mg Take 650 U nivers en 650 mg 8-23 mg by ity of CR tablet 15:02: mouth [place] 10 every 8 Medical (eight) Branch hours as needed for Pain. docusate 2021-0 Yes 100mg Take 100 Univ ers 100 mg 8-23 mg by ity of capsule 15:02: mouth [place] 10 daily. Medical Branch HYDROcodone 2021-0 Yes 1{tbl} Take 1 Un berta -acetaminop 8-23 tablet by ity of hen 5-325 15:02: mouth [place] mg tablet 10 every 6 Medical (six) Branch hours as needed. polyethylen 2021-0 Yes Take by Uni vers e glycol 8-23 mouth. ity of 3350 15:02: [place] (MIRALAX 10 Medical ORAL) Branch cetirizine 2021-0 Yes 10mg Take 10 mg U nivers 10 mg 8-23 by mouth ity of tablet 15:02: daily. [place] [address] Medical Branch propranoloL 2021-0 Yes 40mg Take 40 mg Univers 40 mg 8-23 by mouth 3 ity of tablet 15:02: (three) [place] 10 times Medical daily. Branch acetaminoph 2021-0 Yes 650mg Take 650 U nivers en 650 mg 8-23 mg by ity of CR tablet 15:02: mouth [place] 10 every 8 Medical (eight) Branch hours as needed for Pain. docusate 0 Yes 100mg Take 100 Univ ers 100 mg 8-23 mg by ity of capsule 15:02: mouth [place] 10 daily. Medical Branch HYDROcodone 0 Yes 1{tbl} Take 1 Un berta -acetaminop 8-23 tablet by ity of hen 5-325 15:02: mouth [place] mg tablet 10 every 6 Medical (six) Branch hours as needed. polyethylen 0 Yes Take by Uni vers e glycol 8-23 mouth. ity of 3350 15:02: [place] (MIRALAX 10 Medical ORAL) Branch pyridoxine, 0 Yes 25mg Take 25 mg Univers VITAMIN 5-27 by mouth ity of B-6, 25 mg 09:03: daily. [place] tablet 31 Medical Branch pyridoxine, 0 Yes 25mg Take 25 mg Univers VITAMIN 5-27 by mouth ity of B-6, 25 mg 09:03: daily. [facility] 31 Medical Branch LEVETIRACET Yes TAKE 2 Univ ers AM 500 mg 4-04 TABLETS BY ity of tablet 00:00: MOUTH [place] 00 TWICE Medical DAILY Branch LEVETIRACET 0 Yes TAKE 2 Univ ers AM 500 mg 4-04 TABLETS BY ity of tablet 00:00: MOUTH [place] 00 TWICE Medical DAILY Branch omeprazole 0 Yes [id number] 40mg Take 1 Univers 40 mg 1-12 capsule by ity of capsule 00:00: mouth 2 [place] 00 (two) Medical times Branch daily. omeprazole 0 Yes [id number] 40mg Take 1 Univers 40 mg 1-12 capsule by ity of capsule 00:00: mouth 2 [place] 00 (two) Medical times Branch daily. amitriptyli 2020-02 Yes 1{tbl} 1 tablet Univers ne 100 mg 2-11 at ity of tablet 00:00: bedtime. Takes Medical total of Branch 125mg amitriptyli 2020-02 Yes 1{tbl} 1 tablet Univers ne 100 mg 2-11 at ity of tablet 00:00: bedtime. [place] Takes Medical total of Branch 125mg clopidogreL 2020-02 Yes 1{tbl} 1 tablet Univers 75 mg 1-23 daily. ity of tablet 00:00: [place] [facility] clopidogreL 2020-02 Yes 1{tbl} 1 tablet Univers 75 mg 1-23 daily. ity of tablet 00:00: [place] [facility] tiZANidine 2020-02 Yes 1{tbl} 1 tablet U nivers 2 mg tablet 1-16 at ity of 00:00: bedtime. [place] [facility] tiZANidine 2020-02 Yes 1{tbl} 1 tablet U nivers 2 mg tablet 1-16 at ity of 00:00: bedtime. [place] [facility] atorvastati 2020-02 Yes 1{tbl} 1 tablet Univers n 80 mg 1-03 at ity of tablet 00:00: bedtime. [place] [facility] atorvastati 2020-02 Yes 1{tbl} 1 tablet Univers n 80 mg 1-03 at ity of tablet 00:00: bedtime. [address] hydrOXYchlo 2020-0 Yes 200mg Take 200 U nivers roQUINE 200 9-29 mg by ity of mg tablet 00:00: mouth 2 [place] ([facility]) Medical times [place] daily. hydrOXYchlo 2020-0 Yes 200mg Take 200 U nivers roQUINE 200 9-29 mg by ity of mg tablet 00:00: mouth 2 [place] [address] (two) Medical times [place] daily. Immunizations Ordered Filled Immunization Date Status Comments [facility] e Immunization Name Name Influenza Virus 2018-01-24 Completed Universit y of Vaccine [place] .5 mL 00:00:00 [facility] 6+ MO [place] Influenza Virus 2018-01-24 Completed Universit y of Vaccine Quad .5 mL 00:00:00 [facility] 6+ MO [place] TDAP 2013-02-07 Completed University 00:00:00 [facility] TDAP 2013-02-07 Completed University 00:00:00 [facility] Pneumococcal 2012-02-22 Completed University o f Polysaccharide, 00:00:00 [facility] ical PPSV23 (PNEUMOVAX) Branch Pneumococcal 2012-02-22 Completed University o f Polysaccharide, 00:00:00 [facility] ical PPSV23 (PNEUMOVAX) [place] Influenza Virus 2010-11-07 Completed Universit y of Vaccine (3+ yrs) 00:00:00 [facility] Influenza Virus 2010-11-07 Completed Universit y of Vaccine (3+ yrs) 00:00:00 [facility] Pneumococcal 2006-11-14 Completed University o f Polysaccharide, 00:00:00 [place] Med ical PPSV23 (PNEUMOVAX) Branch Pneumococcal 2006-11-14 Completed [place] o f Polysaccharide, 00:00:00 [place] Med ical PPSV23 (PNEUMOVAX) Branch Vital Signs Vital Name Observation Time Observation Value Comments Source Systolic blood 2021-09-29 19:58:00 136 mm[Hg] Univer sity of pressure [facility] Diastolic blood 2021-09-29 19:58:00 75 mm[Hg] Unive rsity of [facility] Heart rate 2021-09-29 19:58:00 72 /min [facility] Respiratory rate 2021-09-29 19:58:00 18 /min Univ ersity [facility] Body height 2021-09-29 19:58:00 175.3 cm [facility] Body weight 2021-09-29 19:58:00 95.165 kg [facility] BMI 2021-09-29 19:58:00 30.98 kg/m2 [facility] Oxygen saturation in 2021-09-29 19:58:00 97 /min [facility] Arterial blood by [place] [employer] [facility] Pulse oximetry [place] Procedures Procedure Date / Time Performed Performing Clinician Sour e DISCLOSURE AND 2021-10-27 05:01:00 Doctor Unamarisol, Rocio Univer sity of [place] CONSENT, MEDICAL AND Name Medical [facility] [place] [facility] SURGICAL PROCEDURES Encounters Start End Encounter Admission Attending Care Care Encounter Source Date/Time Date/Time Type Type Clinicians Facility Department ID 2021-12-03 2021-12-03 Outpatient R PING [facility] [id number] Univers 10:20:00 10:20:00 DIANNA [id number] ity [facility] 2021-10-27 2021-10-27 Outpatient R DAGOBERTO SHAW [facility] [id number] Univers 15:00:00 15:00:00 ity [facility] 2021-10-27 2021-10-27 Orders Doctor BARBER [id number] Univers 00:00:00 00:00:00 Only UnassignedEDUARDO [id number] ity of [place] [facility] [id number] Mehdi as [phone] [facility] 009 Branch 2021-09-29 2021-09-29 Office Joseph [facility] [id number] Univers 14:45:00 15:00:00 Visit Ludmila Red LaGoon [id number] it y of CANCER [id number] Mehdimalcolm [facility] - [phone] [facility] ical [facility] 408 Branch Results This patient has no known results.
[2021-10-28 20:54] LABS: Absolute Lymphocytes (CBC) 1.6 K/uL (0.7-4.9); Hematocrit 34.6 % (36.0-45.0); Lymphocytes % 30.4 % (15.3-44.8); MCV 87.8 fL (80-100); MPV 7.8 fL (7.6-11.3); RBC Red Blood Cell Count 3.94 M/uL (3.86-4.86)
[2021-10-28] MEDS ORDERED: KETAMINE HCL 500 MG/5 ML VIAL ONE (21:01)
[2021-10-28] MEDS ORDERED: NA CHLORIDE 0.9% 100 ML ONE (21:01)
--- NOTE | 2021-10-28 21:14 | RAD REPORT ---
EXAM DESCRIPTION: CT - Abdomen Pelvis Wo Contrast - 10/28/2021 9:02 pm CLINICAL HISTORY: Abdominal pain. Abdominal pain, acute, nonlocalized COMPARISON: <Comparisons> TECHNIQUE: CT imaging of the abdomen and pelvis was performed without contrast. Solid organ, bowel a nd vascular assessment is limited due to lack of IV and oral contrast. All CT scans are performed using dose optimization technique as appropriate and may include automated exposure control or mA/KV adjustment according to patient size. FINDINGS: The lower lung leos are clear. The liver, spleen, pancreas, adrenal glands and kidneys are within normal limits for a limited non-co ntrast examination. No bowel obstruction, free air, free fluid or abscess. There is a large ventral hernia present, cont aining fat, large and small intestine. No evidence of hernia incarceration. Postsurgical changes are present in the region of the sigmoid colon. The osseous structures are within normal limits. IMPRESSION: Large ventral hernia is present as detailed. No bowel obstruction or evidence hernia inc arceration seen. A limited non-contrast examination was performed as detailed.
[2021-10-28 21:53] LABS: Albumin 3.4 g/dL (3.4-5.0); Bilirubin Total 0.5 mg/dL (0.2-1.0); Potassium 3.4 mmol/L (3.5-5.1); Protein, Total 6.7 g/dL (6.4-8.2)
--- NOTE | 2021-10-28 23:18 | ER ---
Nurse's Notes [facility] Name: Jennifer Petty Age: 60 yrs Sex: Female : 1960 Arrival Date: 10/28/2021 Time: 20:12 Bed 3 Private MD: Diagnosis: Ventral hernia without obstruction or gangrene;Abdominal pain, Generalized;Anemia, unspecified Presentation: 10/28 20:12 Chief complaint: EMS states: "She has been having abdominal pain since this morning, tw5 she is suppose to have surgery in December. She has an umbilical hernia. She is from [facility].". Coronavirus screen: Vaccine status: Patient reports being unvaccinated. Ebola Screen: Patient negative for fever greater than or equal to 101.5 degrees Fahrenheit, and additional compatible Ebola Virus Disease symptoms Patient denies exposure to infectious person. Patient denies travel to an Ebola-affected area in the 21 days before illness onset. Initial Sepsis Screen: Does the patient meet any 2 criteria? No. Patient's initial sepsis screen is negative. Does the patient have a suspected source of infection? Yes: Acute abdominal pain. Risk Assessment: Do you want to hurt yourself or someone else? Patient reports no desire to harm self or others. Onset of symptoms was October 28, 2021 at 09:00. 20:12 Method Of Arrival: EMS tw 20:12 Method Of Arrival: EMS: [facility] 20:12 Acuity: JOSE ENRIQUE 3 tw5 Triage Assessment: 20:20 General: Appears in no apparent distress. Behavior is calm, cooperative, appropriate tw5 for age. Pain: Pain currently is 9 out of 10 on a pain scale. GI:. 20:20 GI: Reports "the pain got worse right after I ate breakfast, the pain is right next to tw5 my belly button. Historical: - Allergies: 20:17 Adhesives; tw 20:17 Baclofen; 20:17 Ciprofloxacin; tw 20:17 Cymbalta; 20:17 Depakote; 20:17 GABAPENTIN; 20:17 iodine I 131 Tosutumomab; 20:17 Lisinopril; 20:17 Losartan; 20:17 Macrobid; 20:17 Midrin; tw5 20:17 Morphine; tw5 20:17 Robaxin; tw5 20:17 Septra; tw5 20:17 Sinografin; tw5 20:17 topiramate; tw5 20:17 Toradol; tw5 20:17 tramadol; tw5 - PMHx: 20:17 Allergic rhinitis; Anemia; dementia without behavioral disturbances; epilepsy; tw5 Fibromyalgia; GERD; Hyperlipidemia; Hypertensive disorder; Hypothyroidism; insomnia; Lupus erythematosus; peptic ulcer; protein-calorie malnutrition; vitamin d deficiency; CVA; - Immunization history:: Flu vaccine is up to date. - Social history:: Smoking status: Patient denies any tobacco usage or history of. Screenin:15 Abuse screen: Denies threats or abuse. Nutritional screening: No deficits noted. jb4 Tuberculosis screening: No symptoms or risk factors identified. Fall Risk None identified. Assessment: 20:15 General: Appears in no apparent distress. uncomfortable, Behavior is calm, cooperative, jb4 appropriate for age. Pain: Complains of pain in abdomen Pain radiates to generalized body pain. Pain currently is 10 out of 10 on a pain scale. Neuro: Level of Consciousness is awake, alert, obeys commands, Oriented to person, place, time, situation. Cardiovascular: Patient's skin is warm and dry. Respiratory: Airway is patent Respiratory effort is even, unlabored, Respiratory pattern is regular, symmetrical. GI: Abdomen is round non-distended, hernia noted. Abd is soft X 4 quads Abdomen is tender to palpation X 4 quads. : No signs and/or symptoms were reported regarding the genitourinary system. EENT: No signs and/or symptoms were reported regarding the EENT system. Derm: Skin is intact, Skin is pink, warm \\T\\ dry. Musculoskeletal: Circulation, motion, and sensation intact. Range of motion: intact in all extremities. 21:59 Reassessment: Patient appears in no apparent distress at this time. Patient and/or jb4 family updated on plan of care and expected duration. Pain level reassessed. Patient is alert, oriented x 3, equal unlabored respirations, skin warm/dry/pink. 22:43 Reassessment: Patient appears in no apparent distress at this time. Patient and/or jb4 family updated on plan of care and expected duration. Pain level reassessed. Patient is alert, oriented x 3, equal unlabored respirations, skin warm/dry/pink. 23:50 Reassessment: Patient appears in no apparent distress at this time. Patient and/or jb4 family updated on plan of care and expected duration. Pain level reassessed. Patient is alert, oriented x 3, equal unlabored respirations, skin warm/dry/pink. Vital Signs: 20:12 BP 154 / 84; Pulse 73; Resp 18; Temp 98.4; Pulse Ox 99% on R/A; Weight 92.99 kg; Height tw5 5 ft. 9 in. (175.26 cm); Pain 9/10; 21:45 BP 170 / 79; Pulse 70; Resp 16; Pulse Ox 100% on R/A; jb4 22:30 BP 157 / 89; Pulse 65; Resp 16; Pulse Ox 100% on R/A; jb4 23:15 BP 150 / 81; Pulse 72; Resp 18; Pulse Ox 97% on R/A; jb4 20:12 Body Mass Index 30.27 (92.99 kg, 175.26 cm) tw5 ED Course: 20:12 Patient arrived in ED. tw5 20:15 Patient has correct armband on for positive identification. Placed in gown. Bed in low jb4 position. Call light in reach. Side rails up X 1. Client placed on continuous cardiac and pulse oximetry monitoring. NIBP monitoring applied. 20:17 Triage completed. tw5 20:18 Latrell Celaya DO is Attending Physician. ms3 20:20 Clare Gutierrez is Primary Nurse. tw5 20:30 Inserted saline lock: 22 gauge in left forearm, using aseptic technique. Blood jb4 collected. Missed attempt(s): 18 gauge in right antecubital area. 20 gauge in right forearm. Bleeding controlled, band aid applied, catheter tip intact. 20:45 Lipase Sent. jb4 20:45 CMP Sent. jb4 20:45 CBC with Diff Sent. jb4 21:08 CT Abd/Pelvis - Without Contrast In Process Unspecified. EDMS 23:51 No provider procedures requiring assistance completed. IV discontinued, intact, jb4 bleeding controlled, No redness/swelling at site. Pressure dressing applied. Administered Medications: 21:05 Drug: Ketamine 0.1 mg/kg Route: IVP; Site: left forearm; jb4 21:30 Follow up: Response: No adverse reaction; Marked relief of symptoms jb4 Outcome: 23:18 Discharge ordered by . ms3 23:51 Discharged to home via ambulance. jb4 23:51 Condition: stable 23:51 Discharge instructions given to patient, Instructed on discharge instructions, follow up and referral plans. Demonstrated understanding of instructions, follow-up care. 23:51 Patient left the ED. jb4 Signatures: Dispatcher [employer] EDJoaquín Santos RN RN jb4 Latrell Celaya DO DO ms3 Clare Gutierrez 5
--- NOTE | 2021-10-28 23:18 | EDPHYS ---
Physician Documentation [facility] Name: Jennifer Petty Age: 60 yrs Sex: Female : 1960 Arrival Date: 10/28/2021 Time: 20:12 Bed 3 Private MD: ED Physician Latrell Celaya HPI: 10/28 21:13 This 60 yrs old Female presents to ER via EMS with complaints of Abdominal Pain. ms3 21:13 60-year-old female with past medical history of allergic rhinitis, anemia, dementia ms3 without behavioral disturbance presents via [facility] for abdominal pain that began this morning. Patient states she has a hernia that is sticking out and hurts. Patient states her discomfort is a 9/10 and is sore and tender. Patient states when she develops this pain her fibromyalgia acts up and she is also having entire body pains. Patient denies nausea, vomiting. Deep breathing improves her symptoms. Patient denies inciting factors.. Historical: - Allergies: 20:17 Adhesives; tw5 20:17 Baclofen; tw5 20:17 Ciprofloxacin; tw5 20:17 Cymbalta; tw5 20:17 Depakote; tw5 20:17 GABAPENTIN; tw5 20:17 iodine I 131 Tosutumomab; tw5 20:17 Lisinopril; tw5 20:17 Losartan; tw5 20:17 Macrobid; tw5 20:17 Midrin; tw5 20:17 Morphine; tw5 20:17 Robaxin; tw5 20:17 Septra; tw5 20:17 Sinografin; tw5 20:17 topiramate; tw5 20:17 Toradol; tw5 20:17 tramadol; tw5 - PMHx: 20:17 Allergic rhinitis; Anemia; dementia without behavioral disturbances; epilepsy; tw5 Fibromyalgia; GERD; Hyperlipidemia; Hypertensive disorder; Hypothyroidism; insomnia; Lupus erythematosus; peptic ulcer; protein-calorie malnutrition; vitamin d deficiency; CVA; - Immunization history:: Flu vaccine is up to date. - Social history:: Smoking status: Patient denies any tobacco usage or history of. ROS: 21:13 Constitutional: Negative for fever, and chills. Neck: Negative for injury, pain, and ms3 swelling, Cardiovascular: Negative for chest pain, and palpitations. Respiratory: Negative for shortness of breath, cough, wheezing, and pleuritic chest pain, Abdomen/GI: Negative for abdominal pain, nausea, vomiting, diarrhea, and constipation, MS/Extremity: Negative for injury and deformity, Skin: Negative for injury, rash, and discoloration. 21:13 All other systems are negative. ms3 Exam: 21:13 Constitutional: This is a well developed, well nourished patient who is awake, alert, ms3 and in no acute distress. Head/Face: Normocephalic, atraumatic. Neck: Trachea midline, no cervical lymphadenopathy. Supple, full range of motion without nuchal rigidity, or vertebral point tenderness. No Meningismus. Chest/axilla: Normal chest wall appearance and motion. Nontender with no deformity. Cardiovascular: Regular rate and rhythm with a normal S1 and S2. No gallops, murmurs, or rubs. Normal PMI, no JVD. No pulse deficits. Respiratory: Lungs have equal breath sounds bilaterally, clear to auscultation and percussion. No rales, rhonchi or wheezes noted. No increased work of breathing, no retractions or nasal flaring. 21:13 Back: No spinal tenderness. No costovertebral tenderness. Full range of motion. Skin: Warm, dry with normal turgor. Normal color with no rashes, no lesions, and no evidence of cellulitis. MS/ Extremity: Pulses equal, no cyanosis. Neurovascular intact. Full, normal range of motion. Psych: Awake, alert, with orientation to person, place and time. Behavior, mood, and affect are within normal limits. 21:13 Abdomen/GI: Inspection: abdomen appears normal, Bowel sounds: normal, Palpation: moderate abdominal tenderness, in the umbilical area. Vital Signs: 20:12 BP 154 / 84; Pulse 73; Resp 18; Temp 98.4; Pulse Ox 99% on R/A; Weight 92.99 kg; Height tw5 5 ft. 9 in. (175.26 cm); Pain 9/10; 21:45 BP 170 / 79; Pulse 70; Resp 16; Pulse Ox 100% on R/A; jb4 22:30 BP 157 / 89; Pulse 65; Resp 16; Pulse Ox 100% on R/A; jb4 23:15 BP 150 / 81; Pulse 72; Resp 18; Pulse Ox 97% on R/A; jb4 20:12 Body Mass Index 30.27 (92.99 kg, 175.26 cm) tw5 MDM: 20:28 Patient medically screened. ms3 21:13 Differential diagnosis: bowel obstruction, non-specific abd pain, Ventral hernia. Data ms3 reviewed: vital signs, nurses notes, lab test result(s), radiologic studies, and as a result, I will discharge patient. Counseling: I had a detailed discussion with the patient and/or guardian regarding: the historical points, exam findings, and any diagnostic results supporting the discharge/admit diagnosis, lab results, radiology results, the need for outpatient follow up, to return to the emergency department if symptoms worsen or persist or if there are any questions or concerns that arise at home. Special discussion: I discussed with the patient/guardian in detail that at this point there is no indication for admission to the hospital. It is understood, however, that if the symptoms persist or worsen the patient needs to return immediately for re-evaluation. ED course: Discussed labs and CT findings with patient. Patient to follow-up with primary care physician 2 to 3 days. Patient understands agrees with plan. All questions were answered. Return precautions discussed include worsening symptoms, or any other concerns. On reevaluation patient is alert, in no apparent distress, nontoxic appearing, abdominal exam benign.. 10/28 20:30 Order name: CBC with Diff; Complete Time: 21:12 ms3 10/28 20:30 Order name: CMP; Complete Time: 21:55 ms3 10/28 20:30 Order name: Lipase; Complete Time: 21:55 ms3 10/28 20:30 Order name: CT Abd/Pelvis - Without Contrast; Complete Time: 21:23 ms3 10/28 20:30 Order name: IV Saline Lock; Complete Time: 20:34 ms3 10/28 20:30 Order name: Labs collected and sent; Complete Time: 20:34 ms3 Administered Medications: 21:05 Drug: Ketamine 0.1 mg/kg Route: IVP; Site: left forearm; jb4 21:30 Follow up: Response: No adverse reaction; Marked relief of symptoms jb4 Disposition Summary: 10/28/21 23:18 Discharge Ordered Location: Home ms3 Condition: Stable ms3 Diagnosis - Ventral hernia without obstruction or gangrene ms3 - Abdominal pain, Generalized ms3 - Anemia, unspecified ms3 Followup: ms3 - With: Private Physician - When: 2 - 3 days - Reason: Recheck today's complaints Discharge Instructions: - Discharge Summary Sheet ms3 - Abdominal Pain, Adult ms3 - Ventral Hernia ms3 Forms: - Medication Reconciliation Form ms3 - Thank You Letter ms3 - SBAR form bb - Antibiotic Education ms3 - Prescription Opioid Use ms3 Signatures: Dispatcher [employer] EDMS Joaquín Lee RN RN jb4 Latrell Celaya DO DO ms3 Clare Gutierrez tw5 Corrections: (The following items were deleted from the chart) 10/29 08:32 10/28 21:13 Constitutional: Negative for fever, and chills. Neck: Negative for injury, ms3 pain, and swelling, Cardiovascular: Negative for chest pain, and palpitations. Respiratory: Negative for shortness of breath, cough, wheezing, and pleuritic chest pain, Abdomen/GI: Negative for abdominal pain, nausea, vomiting, diarrhea, and constipation, ms3
== END 2021-10-28 23:51 | disposition home or self-care (01) ==
LOC: ER 20:10
DX: R10.84 Generalized abdominal pain (principal); K43.9 Ventral hernia without obstruction or gangrene; D64.9 Anemia, unspecified; F03.90 Unspecified dementia, unspecified severity, without behavioral disturbance, psychotic disturbance, mood disturbance, and anxiety
CPT/HCPCS: 36415; 74176; 80053; 83690; 85025

== ENCOUNTER 2022-06-02 17:04 | Emergency (ER) | payer OTHER ==
--- OUTSIDE RECORDS SUMMARY | 2022-06-02 17:32 | XMS REPORT | Continuity of Care Document ---
:1960 Author Organization [facility] t Address [address] [place] [address] Care Team Providers Name Role Phone JERRI ELKINS Primary Care Physician Unavailable EDIL FENG Attending Clinician Unavailable KRISTI GUZMAN Attending Clinician Unavailable KRISTI GUZMAN Attending Clinician Unavailable LUDMILA RUIZ Attending Clinician Unavailable Edil Feng MD Attending Clinician Marcelino AMIN, Irais Attending Clinician DAGOBERTO SHAW Attending Clinician Unavailable Dagoberto Shaw MD Attending Clinician Doctor Unassigned, [place] Attending Clinician Unavailable Heaven Walter RN Attending Clinician Unavailable Marco A Peralta MD Attending Clinician [phone] BRENT WELLS Attending Clinician Unavailable Ludmila Ruiz MD Attending Clinician CHARLOTTE BAEZ Attending Clinician Unavailable Charlotte Peter Attending Clinician Arina Ramsay RN Attending Clinician Unavailable PATRICIA BOLAÑOS Attending Clinician Unavailable Noel Richmond DO Attending Clinician Tom Lopez MD Attending Clinician Patricia Bolaños MD Attending Clinician Franklyn Kirkland MD Attending Clinician Alta Ma MD Attending Clinician Bhumika AMIN, Jamey Barton Attending Clinician SHAISTA WYMAN Attending Clinician Unavailable Shaista Wyman MD Attending Clinician Only, Adc Test Attending Clinician Unavailable Milena DASILVA Attending Clinician Unavailable Milena Dickey Attending Clinician Crystal MUNOZ, Maryan Lowe Attending Clinician [place] AMIN, Kylee Honeycutt Attending Clinician Osei AMIN, Leslye Attending Clinician Adina AMIN, Radha Lozada Attending Clinician Haritha [facility], [facility] Att[facility] Clinician BALDEMAR WILDER Attending Clinician Unavailable Randell AMIN, Baldemar Kate Attending Clinician Ilana Arenas MD Attending Clinician [phone] Amarilis Bergman DO Attending Clinician PREMA MENDEZ Attending Clinician Unavailable TRINIDAD INFANTE Attending Clinician Unavailable IRAIS FERRERA Attending Clinician Unavailable ILANA ARENAS Attending Clinician Unavailable FRANKLYN KIRKLAND Attending Clinician Unavailable FRANKLYN KIRKLAND Attending Clinician Unavailable BEATRIS HOLT Attending Clinician Unavailable ANNEMARIE EDGAR Attending Clinician Unavailable TYLER BASS Attending Clinician Unavailable LUDMILA MERLOS Attending Clinician Unavailable RADHA MCINTOSH Attending Clinician Unavailable ATANASGERRY MACEHIL T Attending Clinician Unavailable SARINANASRODRI, STRAHIL T Attending Clinician Unavailable LUDMILA RUIZ Admitting Clinician Unavailable DAGOBERTO SHAW Admitting Clinician Unavailable Dagoberto Shaw MD Admitting Clinician EDIL FENG Admitting Clinician Unavailable CHARL[place]TE BAEZ Admitting Clinician Unavailable PATRICIA BOLAÑOS Admitting Clinician Unavailable Patricia Bolaños MD Admitting Clinician Ludmila Ruiz MD Admitting Clinician SHAISTA WYMAN Admitting Clinician Unavailable Shaista Wyman MD Admitting Clinician Milena DASILVA Admitting Clinician Unavailable Leslye Franz MD Admitting Clinician LESLYE FRANZ Admitting Clinician Unavailable DENA ESTEBAN Admitting Clinician Unavailable ERLIN SCHWARTZ Admitting Clinician Unavailable RADHA MCINTOSH Admitting Clinician Unavailable Payers Payer Name Policy Type Policy Number Effective Date Expiration Date Derek GARIBAY PLS [id number] 2019 HMO 00:00:00 MEDICAID [facility] [id number] 2017 00:00:00 [facility] DUAL [id number] 2022 COMP CHOICE PPO 00:00:00 DSNP [facility] [id number] 2022 PLUS 00:00:00 MEDICARE PART A [id number] 1996 2022 \T\ B 00:00:00 00:00:00 Problems Condition Condition Condition Status Onset Resolution Last Treating Co mments Source Name Details Category Date Date Treatment Clinician Date Ventral Ventral Disease Active 2021-02 Univers hernia hernia 1-21 ity of without without 00:00: [place] obstructio obstructio 00 Me dical n or n or Branch gangrene gangrene Incisional Incisional Disease Active U nivers hernia, hernia, 8-28 ity of without without 00:00: [place] obstructio obstructio 00 Me dical n or n or Branch gangrene gangrene Frequent Frequent Disease Active Unive rs falls falls 4-07 ity of 00:00: [place] 00 Medical Branch Attention Attention Disease Active Uni vers to to 3-16 ity of colostomy col[place] Colostomy Colostomy Disease Active Uni vers status status 3-16 ity of 00:00: [place] 00 Medical Branch Stercoral Stercoral Disease Active Overview: Univers ulcer of ulcer of 3-01 Formattin ity of large large 00:00: g of this [place] intestine intestine 00 note Medi landry might be Branch different from the original. Added automatic ally from request for surgery [id number] Colostomy Colostomy Disease Active Overview: Univers in place in place 2-11 Formattin ity of 00:00: g of this [place] 00 note Medical might be Branch different from the original. Added automatic ally from request for surgery [id number] GIB GIB Disease Active Univers (gastroint (gastroint 09 it y of estinal estinal 00:00: [place] bleeding) bleeding) 00 [facility] Branch Melena Melena Disease Active Overview: Univer s -08 Formattin ity of 00:00: g of this [place] 00 note Medical might be Branch different from the original. Added automatic ally from request for surgery [id number] Parastomal Parastomal Disease Active 2020-02 U nivers hernia hernia 0-19 ity of without without 00:00: [place] obstructio obstructio 00 Me dical n or n or Branch gangrene gangrene Syncope Syncope Disease Active Univers and and 8-09 ity of collapse collapse 00:00: [place] 00 Medical Branch Dyslipidem Dyslipidem Disease Active U nivers ia ia 8-09 ity of 00:00: [place] 00 Medical Branch Sinus Sinus Disease Active Univers pause pause 8-09 ity of status status 00:00: [place] post PPM post PPM 00 Medica l Branch Hypokalemi Hypokalemi Disease Active U nivers a a 8-09 ity of 00:00: [place] 00 Medical Branch Noncomplia Noncomplia Disease Active U nivers nce with nce with 4-12 ity of treatment treatment 00:00: [place] regimen regimen 00 Medical Branch Acute Acute Disease Active Univers blood loss blood loss 4-07 it y of anemia anemia 00:00: [place] 00 Medical Branch Perforatio Perforatio Disease Active U scot n of n of 4-06 ity of sigmoid sigmoid 00:00: [place] colon s/p colon s/p 00 [facility] Corby's Corby's Br anch on on 05/13/2020 05/13/2020 Therapeuti Therapeuti Disease Active 2020- U anahiers c c 4-06 ity of opioid-ind opioid-ind [...] nivers s s 4-06 ity of 00:00: [place] [facility] Stroke of Stroke of Disease Active Uni vers uncertain uncertain 3-13 ity of pathology pathology [place] 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 2-10 ity of 00:00: [place] 00 Medical Branch History of History of Disease Active U nivers systemic systemic 2-10 ity of lupus lupus 00:00: [place] erythemato erythemato 00 Me dical liliya (SLE) liliya (SLE) Bran ch History of History of Disease Active 2018-02 U nivers seizure seizure 2-05 ity of 00:00: [place] 00 Medical Branch Mixed Mixed Disease Active Univers hyperlipid hyperlipid 9-20 it y of emia emia 00:00: 00 Medical Branch Prediabete Prediabete Disease Active U nivers s s 4-10 ity of 00:00: [place] 00 Medical Branch Kidney Kidney Disease Active Overview: Univer s lesion, lesion, 3-25 Formattin ity o f chinik, chinik, 00:00: g of this [place] right right 00 note Medical might be Branch different from the original. likely angiolipo ma per Radiology Kidney Kidney Disease Active Overview: Univer s lesion, lesion, 3-25 Formattin ity o f chinik, chinik, 00:00: g of this [place] right right 00 note Medical might be Branch different from the original. likely angiolipo ma per Radiology Hyperthyro Hyperthyro Disease Active 2017-02 U anahiers idism idism 2-19 ity of 00:00: [place] 00 Medical Branch Obesity Obesity Disease Active 2017-02 Univers (BMI (BMI 2-17 ity of 30-39.9) 30-39.9) 00:00: [place] 00 Medical Branch Vitamin D Vitamin D Disease Active Uni vers deficiency deficiency 9-20 it y of 00:00: [place] 00 Medical Branch Chronic Chronic Disease Active Univers insomnia insomnia 10-16 ity of 00:00: [place] [facility] Chronic Chronic Disease Active Univers migraine migraine 10-16 ity of without without 00:00: [place] aura aura 00 Medical without without Branch status status migrainosu migrainosu s, not s, not intractabl intractabl e e Neuropathy Neuropathy Disease Active U nivers 10-16 ity of 00:00: [place] [facility] Pacemaker Pacemaker Disease Recurre Un berta nce 10-16 ity of 00:00: [place] [facility] Essential Essential Disease Active Uni vers hypertensi hypertensi 10-16 it y of on on 00:00: [place] [facility] History of History of Disease Active U nivers hepatitis hepatitis 10-16 ity of C C 00:00: [place] [facility] PUD PUD Disease Active Univers (peptic (peptic 10-16 ity of ulcer ulcer 00:00: [place] disease) disease) 00 Medica l Branch Gastroesop Gastroesop Disease Active U nivers hageal hageal 10-16 ity of reflux reflux 00:00: [place] disease, disease, 00 Medica l esophagiti esophagiti Br anch s presence s presence not not specified specified History of History of Disease Active U nivers urinary urinary 10-16 ity of tract tract 00:00: [place] surgery surgery 00 Medical Branch Fibromyalg Fibromyalg Disease Active U anahiers ia ia 10-16 ity of 00:00: [place] [facility] Parasomnia Parasomnia Disease Active U nivers 10-16 ity of 00:00: [place] [facility] Anxiety Anxiety Disease Active Overview: Univ ers 02-20 Formattin ity of 00:00: g of this [place] note Medical might be Branch different from the original. Formattin g of this note might be different from the original. 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 Unive rs hyperalges hyperalges 2-04 it y of ia ia 00:00: [place] 00 [facility] Allergic Allergic Disease Active Unive rs rhinitis rhinitis ity of [facility] Cyst of Cyst of Disease Active Univers left left ity of kidney kidney [facility] Allergies, Adverse Reactions, Alerts Allergy Allergy Status Severity Reaction(s) Onset Inactive Treating Comm ents Source Name Type Date Date Clinician TOSITUMO DRUG Active Unknown-Cmnt Un berta MAB INGREDI 04-08 ity of 00:00: [place] 00 Medical Branch Tositumo Propensi Active Unknown - Uni vers mab ty to See comments 04-08 ity of adverse 00:00: [place] reaction 00 Medical s Branch Gabapent Drug Active Palpitations Un berta in Allergy 04-22 ity of 00:00: [place] 00 Medical Branch GABAPENT DRUG Active Palpitations Un berta IN INGREDI 04-22 ity of 00:00: [place] 00 Medical Branch Losartan Propensi Active Cough 2019-0 Univer s ty to 07-03 ity of adverse 00:00: [place] reaction 00 Medical s Branch LOSARTAN DRUG Active COUGH 2019-0 Univers INGREDI 07-03 ity of 00:00: [place] 00 Medical Branch Lisinopr Propensi Active Cough 2018-0 Univer s il ty to 10-16 ity of adverse 00:00: [place] reaction 00 Medical s Branch LISINOPR DRUG Active COUGH 2018-0 Univers IL INGREDI 10-16 ity of 00:00: [place] 00 Medical Branch Baclofen Propensi Active Hallucinatio 2017- Univers ty to ns 09-28 ity of adverse 00:00: [place] reaction 00 Medical s Branch Ciproflo Propensi Active Hives 2017- Univer s xacin ty to 09-28 ity of adverse 00:00: [place] reaction 00 Medical s Branch Duloxeti Propensi Active Other - See Transami n Univers ne ty to comments 09-28 itis ity of adverse 00:00: [place] reaction 00 Medical s Branch Divalpro Propensi Active Hives 2018-0 Univer s ex ty to 09-28 ity of Sodium adverse 00:00: [place] reaction 00 Medical s Branch Gabapent Propensi Active Unknown - Uni vers in ty to See comments 09-28 ity of Enacarbi adverse 00:00: [place] l reaction 00 Medical s Branch Nitrofur Propensi Active Hives 2018 Univer s antoin ty to 09-28 ity of Monohyd/ adverse 00:00: [place] M-Cryst reaction 00 Medical s Branch Isometh- Propensi Active Shortness of 2018 Univers Dichlora ty to Breath 09-28 ity of l-Acetam adverse 00:00: [place] inophn reaction 00 Medical s Branch Morphine Propensi Active Hives 2018 Univer s Sulfate ty to 09-28 ity of adverse 00:00: [place] reaction 00 Medical s Branch Methocar Propensi Active Diarrhea 2018 Univ ers bamol ty to 09-28 ity of adverse 00:00: [place] reaction 00 Medical s Branch Septra Propensi Active Shortness of 2018 Un berta I.V. ty to Breath 09-28 ity of adverse 00:00: [place] reaction 00 Medical s Branch Diatrizo Propensi Active Hives 2018 Univer s ate And ty to 09-28 ity of Iodipami adverse 00:00: [place] de Amber reaction 00 Medical s Branch Topirama Propensi Active Other - See 201[address] [place] , Univers te ty to comments 09-28 overwhelm ity o f adverse 00:00: ing [place] reaction 00 feeliing Medica l s Branch Ketorola Propensi Active Other - See 2018-0 Restless Univers c ty to comments 09-28 legs ity of Trometha adverse 00:00: [place] mine reaction 00 Medical s Branch Tramadol Propensi Active Other - See 2018 shaky U nivers ty to comments 09-28 legs ity of adverse 00:00: [place] reaction 00 Medical s Branch Adhesive Propensi Active Other - See 2018-0 redness Univers ty to comments 09-28 ity of adverse 00:00: [place] reaction 00 Medical s Branch Iodine Propensi Active Hives 2018 Univers And ty to 09-28 ity of Iodide adverse 00:00: [place] Containi reaction 00 Medica l ng s Branch Products ADHESIVE Drug Active Other-Cmnt 2018 Univ ers Class 8- ity of 00:00: [place] 00 Medical Branch BACLOFEN DRUG Active Hallucinates Un berta INGREDI 8 ity of 00:00: [place] 00 Medical Branch CIPROFLO DRUG Active Hives 2018- Univers XACIN INGREDI 8-22 ity of 00:00: [place] 00 Medical Branch IODINE Drug Active Hives 2018-0 Univers AND Class 09-28 ity of IODIDE 00:00: [place] CONTAINI 00 Medical NG Branch PRODUCTS DULOXETI DRUG Active Other-Cmnt 2018-0 Univ ers NE INGREDI 09-28 ity of 00:00: [place] 00 Medical Branch DIVALPRO DRUG Active Hives 2018-0 Univers EX INGREDI 09-28 ity of SODIUM 00:00: [place] 00 Medical Branch GABAPENT DRUG Active Unknown-Cmnt 2018-0 Un berta IN INGREDI 09-28 ity of ENACARBI 00:00: [place] L 00 Medical Branch NITROFUR DRUG Active Hives 2018-0 Univers ANTOIN 09-28 ity of MONOHYD/ 00:00: [place] M-CRYST 00 Medical Branch ISOMETH- DRUG Active Hives 2018-0 Univers DICHLORA 09-28 ity of L-ACETAM 00:00: [place] INOPHN 00 Medical Branch MORPHINE DRUG Active Hives 2018-0 Univers SULFATE INGREDI 09-28 ity of 00:00: [place] 00 Medical Branch METHOCAR DRUG Active Diarrhea 2018-0 Univer s BAMOL INGREDI 09-28 ity of 00:00: [place] 00 Medical Branch SEPTRA DRUG Active Hives 2018-0 Univers I.V. 09-28 ity of 00:00: [place] [...] ity of 00:00: [place] 00 Medical Branch Social History Social Habit Start Date Stop Date Quantity Comments Source History Counts include 234 beds at the [facility] o f Alcohol Frequency [place] M edical Branch History Counts include 234 beds at the [facility] o f Alcohol Std [place] Medical Drinks Branch History Counts include 234 beds at the [facility] o f Alcohol Binge [place] Medic al Branch Exposure to 2022-05-10 2022-05-20 Not sure University of SARS-CoV-2 00:00:00 09:58:00 [place] Medical (event) Branch Alcohol intake 2022-04-08 2022-04-08 Current drinker Unive rsity of 00:00:00 00:00:00 of alcohol [place] Medical (finding) Branch Tobacco use and 2021-09-14 2021-09-14 Smokeless tobacco Un iversity of exposure 00:00:00 00:00:00 non-user [facility] Education 2020-01-11 2020-01-11 16 University of 00:00:00 00:00:00 [facility] Alcohol Comment 2018-10-10 2018-10-10 Rare occasions Unive rsity of 00:00:00 00:00:00 [facility] Sex [birth year] At [birth year] Universit y of 00:00:00 00:00:00 [facility] Smoking Status Start Date Stop Date Source Never smoked tobacco [facility] Medications Ordered Filled Start Stop Current Ordering Indication Dosage Frequency Signature Comments Components Source Medication Medication Date Date Medication? Clinician (SIG) Name Name acetaminoph Yes 650mg Take 1 Uni vers en 650 mg 3-02 tablet by ity o f CR tablet 09:49: mouth [place] 35 every 8 Medical (eight) Branch hours as needed for Pain. MELOXICAM Yes 15mg Take 15 mg Un berta ORAL 3-02 by mouth. ity of 09:49: [address] Lactobacill Yes 1{capsu Take 1 U nivers us 3-02 le} capsule by ity of acidoph-pec 09:49: mouth [place] tin capsule 35 the Medical morning. Branch loperamide Yes 2mg Take 1 Unive rs (IMODIUM 3-02 capsule by ity o f A-D) 2 mg 09:49: mouth [place] capsule 35 every 4 Medical (four) Branch hours as needed for Diarrhea. acetaminoph Yes 650mg Take 1 Uni vers en 650 mg 3-02 tablet by ity o f CR tablet 09:49: mouth [place] 35 every 8 Medical (eight) Branch hours as needed for Pain. MELOXICAM 2022-0 Yes 15mg Take 15 mg Un berta ORAL 3-02 by mouth. ity of 09:49: [address] Lactobacill Yes 1{capsu Take 1 U nivers us 3-02 le} capsule by ity of acidoph-pec 09:49: [place] tin capsule 35 the Medical morning. Branch loperamide 3-0 Yes 2mg Take 1 Unive rs (IMODIUM 3-02 capsule by ity o f A-D) 2 mg 09:49: mouth [place] capsule 35 every 4 Medical (four) Branch hours as needed for Diarrhea. acetaminoph 2023-0 Yes 650mg Take 1 Uni vers en 650 mg 3-02 tablet by ity o f CR tablet 09:49: mouth [place] 35 every 8 Medical (eight) Branch hours as needed for Pain. MELOXICAM 2022-0 Yes 15mg Take 15 mg Un berta ORAL 3-02 by mouth. ity of 09:49: [place] 35 Medical Branch Lactobacill 2022-0 Yes 1{capsu Take 1 U nivers us 3-02 le} capsule by ity of acidoph-pec 09:49: [place] tin capsule 35 the Medical morning. Branch loperamide 3-0 Yes 2mg Take 1 Unive rs (IMODIUM 3-02 capsule by ity o f A-D) 2 mg 09:49: mouth [place] capsule 35 every 4 Medical (four) Branch hours as needed for Diarrhea. HYDROcodone 3-0 Yes 1{tbl} Take 1 Un berta -acetaminop 1-05 tablet by ity of hen 7.5-325 11:39: mouth [place] mg per 30 every 6 Medical tablet (six) Branch hours as needed. HYDROcodone 2023-0 Yes 1{tbl} Take 1 Un berta -acetaminop 1-05 tablet by ity of hen 7.5-325 11:39: mouth [place] mg per 30 every 6 Medical tablet (six) Branch hours as needed. HYDROcodone 2023-0 Yes 1{tbl} Take 1 Un berta -acetaminop 1-05 tablet by ity of hen 7.5-325 11:39: mouth [place] mg per 30 every 6 Medical tablet (six) Branch hours as needed. HYDROcodone 2023-0 Yes 1{tbl} Take 1 Un berta -acetaminop 1-05 tablet by ity of hen 7.5-325 11:39: mouth [place] mg per 30 every 6 Medical tablet (six) Branch hours as needed. HYDROcodone 2023-0 Yes 1{tbl} Take 1 Un berta -acetaminop 1-05 tablet by ity of hen 7.5-325 11:39: mouth [place] mg per 30 every 6 Medical tablet (six) Branch hours as needed. cetirizine 2022-0 Yes 10mg Take 10 mg U nivers 10 mg 1-03 by mouth ity of tablet 12:02: daily. [place] [address] Medical Branch propranoloL 2022-0 Yes 40mg Take 40 mg Univers 40 mg 1-03 by mouth 3 ity of tablet 12:02: (three) [place] 37 times Medical daily. Branch pyridoxine, 2022-0 Yes 25mg Take 25 mg Univers VITAMIN 1-03 by mouth ity of B-6, 25 mg 12:02: daily. [facility] 37 Medical Branch acetaminoph 2022-0 Yes 650mg Take 650 U nivers en 650 mg 1-03 mg by ity of CR tablet 12:02: mouth [place] 37 every 8 Medical (eight) Branch hours as needed for Pain. docusate 2022-0 Yes 100mg Take 100 Univ ers 100 mg 1-03 mg by ity of capsule 12:02: mouth [place] 37 daily. Medical Branch HYDROcodone 2022-0 Yes 1{tbl} Take 1 Un berta -acetaminop 1-03 tablet by ity of hen 5-325 12:02: mouth [place] mg tablet 37 every 6 Medical (six) Branch hours as needed. polyethylen 2022-0 Yes Take by Uni vers e glycol 1-03 mouth. ity of 3350 12:02: [place] (MIRALAX 37 Medical ORAL) Branch furosemide 2022-0 Yes 20mg Take 20 mg U nivers 20 mg 1-03 by mouth ity of tablet 12:02: in the [place] [address] morning. Medical Branch famotidine 2022-0 Yes 40mg Take 40 mg U nivers 40 mg 1-03 by mouth ity of tablet 12:02: in the [place] [address] morning. Medical Branch DILTIAZEM 2022-0 Yes 120mg Take 120 Uni vers HCL ORAL 1-03 mg by ity of 12:02: mouth [place] 37 every 8 Medical (eight) Branch hours. cetirizine 2022-0 Yes 10mg Take 10 mg U nivers 10 mg 1-03 by mouth ity of tablet 12:02: daily. [place] [address] Medical Branch propranoloL 2023-0 Yes 40mg Take 40 mg Univers 40 mg 1-03 by mouth 3 ity of tablet 12:02: (three) [place] [address] times Medical daily. Branch pyridoxine, 2022-0 Yes 25mg Take 25 mg Univers VITAMIN 1-03 by mouth ity of B-6, 25 mg 12:02: daily. [place] tablet 37 Medical Branch acetaminoph 2022-0 Yes 650mg Take 650 U nivers en 650 mg 1-03 mg by ity of CR tablet 12:02: mouth [place] 37 every 8 Medical (eight) Branch hours as needed for Pain. docusate 2022-0 Yes 100mg Take 100 Univ ers 100 mg 1-03 mg by ity of capsule 12:02: mouth [place] [address] daily. Medical Branch HYDROcodone 2022-0 Yes 1{tbl} Take 1 Un berta -acetaminop 1-03 tablet by ity of hen 5-325 12:02: mouth [place] tablet 37 every 6 Medical (six) Branch hours as needed. polyethylen 2022-0 Yes Take by Uni vers e glycol 1-03 mouth. ity of 3350 12:02: [place] (MIRALAX 37 Medical ORAL) Branch furosemide 2022-0 Yes 20mg Take 20 mg U nivers 20 mg 1-03 by mouth ity of tablet 12:02: in the [place] [address] morning. Medical Branch famotidine 2022-0 Yes 40mg Take 40 mg U nivers 40 mg 1-03 by mouth ity of tablet 12:02: in the [place] [address] morning. Medical Branch DILTIAZEM 2022-0 Yes 120mg Take 120 Uni vers HCL ORAL 1-03 mg by ity of 12:02: mouth [place] every 8 Medical (eight) Branch hours. cetirizine 2022-0 Yes 10mg Take 10 mg U nivers 10 mg 1-03 by mouth ity of tablet 12:02: daily. [place] [address] Medical Branch propranoloL 3-0 Yes 40mg Take 40 mg Univers 40 mg 1-03 by mouth 3 ity of tablet 12:02: (three) [place] [address] times Medical daily. Branch pyridoxine, 2022-0 Yes 25mg Take 25 mg Univers VITAMIN 1-03 by mouth ity of B-6, 25 mg 12:02: daily. [facility] 37 Medical Branch acetaminoph 2022-0 Yes 650mg Take 650 U nivers en 650 mg 1-03 mg by ity of CR tablet 12:02: mouth [place] [address] every 8 Medical (eight) Branch hours as needed for Pain. docusate 2023-0 Yes 100mg Take 100 Univ ers 100 mg 1-03 mg by ity of capsule 12:02: mouth [place] [address] daily. Medical Branch polyethylen 2022-0 Yes Take by Uni vers e glycol 1-03 mouth. ity of 3350 12:02: [place] (MIRALAX 37 Medical ORAL) Branch furosemide 3-0 Yes 20mg Take 20 mg U nivers 20 mg 1-03 by mouth ity of tablet 12:02: in the [place] [address] morning. Medical Branch famotidine 2022-0 Yes 40mg Take 40 mg U nivers 40 mg 1-03 by mouth ity of tablet 12:02: in the [place] [address] morning. Medical Branch DILTIAZEM 2022-0 Yes 120mg Take 120 Uni vers HCL ORAL 1-03 mg by ity of 12:02: mouth [place] [address] every 8 Medical (eight) Branch hours. cetirizine 2022-0 Yes 10mg Take 10 mg U nivers 10 mg 1-03 by mouth ity of tablet 12:02: daily. [place] [address] Medical Branch propranoloL 3-0 Yes 40mg Take 40 mg Univers 40 mg 1-03 by mouth 3 ity of tablet 12:02: (three) [place] [address] times Medical daily. Branch pyridoxine, 2022-0 Yes 25mg Take 25 mg Univers VITAMIN 1-03 by mouth ity of B-6, 25 mg 12:02: daily. [facility] 37 Medical Branch acetaminoph 3-0 Yes 650mg Take 650 U nivers en 650 mg 1-03 mg by ity of CR tablet 12:02: mouth [place] [address] every 8 Medical (eight) Branch hours as needed for Pain. docusate 3-0 Yes 100mg Take 100 Univ ers 100 mg 1-03 mg by ity of capsule 12:02: mouth [place] [address] daily. Medical Branch polyethylen 3-0 Yes Take by Uni vers e glycol 1-03 mouth. ity of 3350 12:02: [place] (MIRALAX 37 Medical ORAL) Branch furosemide 2023-0 Yes 20mg Take 20 mg U nivers 20 mg 1-03 by mouth ity of tablet 12:02: in the [place] [address] morning. Medical Branch famotidine 3-0 Yes 40mg Take 40 mg U nivers 40 mg 1-03 by mouth ity of tablet 12:02: in the [place] [address] morning. Medical Branch DILTIAZEM 3-0 Yes 120mg Take 120 Uni vers HCL ORAL 1-03 mg by ity of 12:02: mouth [place] [address] every 8 Medical (eight) Branch hours. cetirizine 3-0 Yes 10mg Take 10 mg U nivers 10 mg 1-03 by mouth ity of tablet 12:02: daily. [place] [address] Medical Branch propranoloL 3-0 Yes 40mg Take 40 mg Univers 40 mg 1-03 by mouth 3 ity of tablet 12:02: (three) [place] [address] times Medical daily. Branch pyridoxine, 2022-0 Yes 25mg Take 25 mg Univers VITAMIN 1-03 by mouth ity of B-6, 25 mg 12:02: daily. [place] [address] Medical Branch docusate 3-0 Yes 100mg Take 100 Univ ers 100 mg 1-03 mg by ity of capsule 12:02: mouth [place] [address] daily. Medical Branch polyethylen 2022-0 Yes Take by Uni vers e glycol 1-03 mouth. ity of 3350 12:02: [place] (MIRALAX 37 Medical ORAL) Branch furosemide 2022-0 Yes 20mg Take 20 mg U nivers 20 mg 1-03 by mouth ity of tablet 12:02: in the [place] [address] morning. Medical Branch famotidine 2022-0 Yes 40mg Take 40 mg U nivers 40 mg 1-03 by mouth ity of tablet 12:02: in the [place] [address] morning. Medical Branch DILTIAZEM 3-0 Yes 120mg Take 120 Uni vers HCL ORAL 1-03 mg by ity of 12:02: mouth [place] [address] every 8 Medical (eight) Branch hours. cetirizine 3-0 Yes 10mg Take 10 mg U nivers 10 mg 1-03 by mouth ity of tablet 12:02: daily. [place] [address] Medical Branch propranoloL 3-0 Yes 40mg Take 40 mg Univers 40 mg 1-03 by mouth 3 ity of tablet 12:02: (three) [place] [address] times Medical daily. Branch pyridoxine, 3-0 Yes 25mg Take 25 mg Univers VITAMIN 1-03 by mouth ity of B-6, 25 mg 12:02: daily. [place] tablet 37 Medical Branch docusate 3-0 Yes 100mg Take 100 Univ ers 100 mg 1-03 mg by ity of capsule 12:02: mouth [place] [address] daily. Medical Branch polyethylen 2022-0 Yes Take by Uni vers e glycol 1-03 mouth. ity of 3350 12:02: [place] (MIRALAX 37 Medical ORAL) Branch furosemide 3-0 Yes 20mg Take 20 mg U nivers 20 mg 1-03 by mouth ity of tablet 12:02: in the [place] [address] morning. Medical Branch famotidine 3-0 Yes 40mg Take 40 mg U nivers 40 mg 1-03 by mouth ity of tablet 12:02: in the [place] [address] morning. Medical Branch DILTIAZEM 3-0 Yes 120mg Take 120 Uni vers HCL ORAL 1-03 mg by ity of 12:02: mouth [place] [address] every 8 Medical (eight) Branch hours. cetirizine 3-0 Yes 10mg Take 10 mg U nivers 10 mg 1-03 by mouth ity of tablet 12:02: daily. [place] [address] Medical Branch propranoloL 3-0 Yes 40mg Take 40 mg Univers 40 mg 1-03 by mouth 3 ity of tablet 12:02: (three) [place] [address] times Medical daily. Branch pyridoxine, 2022-0 Yes 25mg Take 25 mg Univers VITAMIN 1-03 by mouth ity of B-6, 25 mg 12:02: daily. [facility] 37 Medical Branch docusate 2022-0 Yes 100mg Take 100 Univ ers 100 mg 1-03 mg by ity of capsule 12:02: mouth [place] [address] daily. Medical Branch polyethylen 2022-0 Yes Take by Uni vers e glycol 1-03 mouth. ity of 3350 12:02: [place] (MIRALAX 37 Medical ORAL) Branch furosemide 3-0 Yes 20mg Take 20 mg U nivers 20 mg 1-03 by mouth ity of tablet 12:02: in the [place] [address] morning. Medical Branch famotidine 3-0 Yes 40mg Take 40 mg U nivers 40 mg 1-03 by mouth ity of tablet 12:02: in the [place] [address] morning. Medical Branch DILTIAZEM 3-0 Yes 120mg Take 120 Uni vers HCL ORAL 1-03 mg by ity of 12:02: mouth [place] [address] every 8 Medical (eight) Branch hours. cetirizine 2021-02 Yes 10mg Take 10 mg U nivers 10 mg 1-24 by mouth ity of tablet 16:58: daily. [place] [address] Medical Branch propranoloL 2021-02 Yes 40mg Take 40 mg Univers 40 mg 1-24 by mouth 3 ity of tablet 16:58: (three) [place] [address] times Medical daily. Branch pyridoxine, 2021-02 Yes 25mg Take 25 mg Univers VITAMIN 1-24 by mouth ity of B-6, 25 mg 16:58: daily. [place] tablet 27 Medical Branch acetaminoph 2021-02 Yes 650mg Take 650 U nivers en 650 mg 1-24 mg by ity of CR tablet 16:58: mouth [place] 27 every 8 Medical (eight) Branch hours as needed for Pain. docusate 2021-02 Yes 100mg Take 100 Univ ers 100 mg 1-24 mg by ity of capsule 16:58: mouth [place] 27 daily. Medical Branch HYDROcodone 2021-02 Yes 1{tbl} Take 1 Un berta -acetaminop 1-24 tablet by ity of hen 5-325 16:58: mouth [place] mg tablet 27 every 6 Medical (six) Branch hours as needed. polyethylen 2021-02 Yes Take by Uni vers e glycol 1-24 mouth. ity of 3350 16:58: [place] (MIRALAX 27 Medical ORAL) Branch furosemide 2021-02 Yes 20mg Take 20 mg U nivers (LASIX) 20 1-24 by mouth ity o f mg tablet 16:58: in the [place] [address] morning. Medical Branch MELOXICAM 2021-02 Yes 15mg Take 15 mg [facility] ORAL 1-24 by mouth. ity of 16:58: [place] [address] Medical Branch famotidine 2021-02 Yes 40mg Take 40 mg U nivers 40 mg 1-24 by mouth ity of tablet 16:58: in the [place] [address] morning. Medical Branch DILTIAZEM 2021-02 Yes 120mg Take 120 Uni vers HCL ORAL 1-24 mg by ity of 16:58: mouth [place] 27 every 8 Medical (eight) Branch hours. cetirizine 2021-02 Yes 10mg Take 10 mg U nivers 10 mg 1-24 by mouth ity of tablet 16:58: daily. [place] [address] Medical Branch propranoloL 2021-02 Yes 40mg Take 40 mg Univers 40 mg 1-24 by mouth 3 ity of tablet 16:58: (three) [place] [address] times Medical daily. Branch pyridoxine, 2021-02 Yes 25mg Take 25 mg Univers VITAMIN 1-24 by mouth ity of B-6, 25 mg 16:58: daily. [place] tablet 27 Medical Branch acetaminoph 2021-02 Yes 650mg Take 650 U nivers en 650 mg 1-24 mg by ity of CR tablet 16:58: mouth [place] 27 every 8 Medical (eight) Branch hours as needed for Pain. docusate 2021-02 Yes 100mg Take 100 Univ ers 100 mg 1-24 mg by ity of capsule 16:58: mouth [place] 27 daily. Medical Branch HYDROcodone 2021-02 Yes 1{tbl} Take 1 Un berta -acetaminop 1-24 tablet by ity of hen 5-325 16:58: mouth [place] mg tablet 27 every 6 Medical (six) Branch hours as needed. polyethylen 2021-02 Yes Take by Uni vers e glycol 1-24 mouth. ity of 3350 16:58: [place] (MIRALAX 27 Medical ORAL) Branch furosemide 2021-02 Yes 20mg Take 20 mg U nivers (LASIX) 20 1-24 by mouth ity o f mg tablet 16:58: in the [place] [address] morning. Medical Branch MELOXICAM 2021-02 Yes 15mg Take 15 mg [facility] ORAL 1-24 by mouth. ity of 16:58: [place] [address] Medical Branch famotidine 2021-02 Yes 40mg Take 40 mg U nivers 40 mg 1-24 by mouth ity of tablet 16:58: in the [place] [address] morning. Medical Branch DILTIAZEM 2021-02 Yes 120mg Take 120 Uni vers HCL ORAL 1-24 mg by ity of 16:58: mouth [place] 27 every 8 Medical (eight) Branch hours. cetirizine 2021-02 Yes 10mg Take 10 mg U nivers 10 mg 1-24 by mouth ity of tablet 16:58: daily. [place] [address] Medical Branch propranoloL 2021-02 Yes 40mg Take 40 mg Univers 40 mg 1-24 by mouth 3 ity of tablet 16:58: (three) [place] 27 times Medical daily. Branch pyridoxine, 2021-02 Yes 25mg Take 25 mg Univers VITAMIN 1-24 by mouth ity of B-6, 25 mg 16:58: daily. [place] tablet 27 Medical Branch acetaminoph 2021-02 Yes 650mg Take 650 U nivers en 650 mg 1-24 mg by ity of CR tablet 16:58: mouth [place] [address] every 8 Medical (eight) Branch hours as needed for Pain. docusate 2021-02 Yes 100mg Take 100 Univ ers 100 mg 1-24 mg by ity of capsule 16:58: mouth [place] 27 daily. Medical Branch HYDROcodone 2021-02 Yes 1{tbl} Take 1 Un berta -acetaminop 1-24 tablet by ity of hen 5-325 16:58: mouth [place] mg tablet 27 every 6 Medical (six) Branch hours as needed. polyethylen 2021-02 Yes Take by Uni vers e glycol 1-24 mouth. ity of 3350 16:58: [place] (MIRALAX 27 Medical ORAL) Branch furosemide 2021-02 Yes 20mg Take 20 mg U nivers (LASIX) 20 1-24 by mouth ity o f mg tablet 16:58: in the [place] [address] morning. Medical Branch MELOXICAM 2021-02 Yes 15mg Take 15 mg [facility] ORAL 1-24 by mouth. ity of 16:58: [place] [address] Medical Branch famotidine 2021-02 Yes 40mg Take 40 mg U nivers 40 mg 1-24 by mouth ity of tablet 16:58: in the [place] [address] morning. Medical Branch DILTIAZEM 2021-02 Yes 120mg Take 120 Uni vers HCL ORAL 1-24 mg by ity of 16:58: mouth [place] 27 every 8 Medical (eight) Branch hours. cetirizine 2021-02 Yes 10mg Take 10 mg U nivers 10 mg 1-24 by mouth ity of tablet 16:58: daily. [place] [address] Medical Branch propranoloL 2021-02 Yes 40mg Take 40 mg Univers 40 mg 1-24 by mouth 3 ity of tablet 16:58: (three) [place] [address] times Medical daily. Branch pyridoxine, 2021-02 Yes 25mg Take 25 mg Univers VITAMIN 1-24 by mouth ity of B-6, 25 mg 16:58: daily. [place] tablet 27 Medical Branch acetaminoph 2021-02 Yes 650mg Take 650 U nivers en 650 mg 1-24 mg by ity of CR tablet 16:58: mouth [place] 27 every 8 Medical (eight) Branch hours as needed for Pain. docusate 2021-02 Yes 100mg Take 100 Univ ers 100 mg 1-24 mg by ity of capsule 16:58: mouth [place] [address] daily. Medical Branch HYDROcodone 2021-02 Yes 1{tbl} Take 1 Un berta -acetaminop 1-24 tablet by ity of hen 5-325 16:58: mouth [place] mg tablet 27 every 6 Medical (six) Branch hours as needed. polyethylen 2021-02 Yes Take by Uni vers e glycol 1-24 mouth. ity of 3350 16:58: [place] (MIRALAX 27 Medical ORAL) Branch furosemide 2021-02 Yes 20mg Take 20 mg U nivers (LASIX) 20 1-24 by mouth ity o f mg tablet 16:58: in the [place] [address] morning. Medical Branch MELOXICAM 2021-02 Yes 15mg Take 15 mg Un [facility] ORAL 1-24 by mouth. ity of 16:58: [place] [address] Medical Branch famotidine 2021-02 Yes 40mg Take 40 mg U nivers 40 mg 1-24 by mouth ity of tablet 16:58: in the [place] [address] morning. Medical Branch DILTIAZEM 2021-02 Yes 120mg Take 120 Uni vers HCL ORAL 1-24 mg by ity of 16:58: mouth [place] [address] every 8 Medical (eight) Branch hours. cetirizine 2021-02 Yes 10mg Take 10 mg U nivers 10 mg 1-24 by mouth ity of tablet 16:58: daily. [place] [address] Medical Branch propranoloL 2021-02 Yes 40mg Take 40 mg Univers 40 mg 1-24 by mouth 3 ity of tablet 16:58: (three) [place] [address] times Medical daily. Branch pyridoxine, 2021-02 Yes 25mg Take 25 mg Univers VITAMIN 1-24 by mouth ity of B-6, 25 mg 16:58: daily. [place] [address] Medical Branch acetaminoph 2021-02 Yes 650mg Take 650 U nivers en 650 mg 1-24 mg by ity of CR tablet 16:58: mouth [place] [address] every 8 Medical (eight) Branch hours as needed for Pain. docusate 2021-02 Yes 100mg Take 100 Univ ers 100 mg 1-24 mg by ity of capsule 16:58: mouth [place] [address] daily. Medical Branch HYDROcodone 2021-02 Yes 1{tbl} Take 1 Un berta -acetaminop 1-24 tablet by ity of hen 5-325 16:58: mouth [place] mg tablet 27 every 6 Medical (six) Branch hours as needed. polyethylen 2021-02 Yes Take by Uni vers e glycol 1-24 mouth. ity of 3350 16:58: [place] (MIRALAX 27 Medical ORAL) Branch furosemide 2021-02 Yes 20mg Take 20 mg U nivers (LASIX) 20 1-24 by mouth ity o f mg tablet 16:58: in the [place] [address] morning. [facility] Branch MELOXICAM 2021-02 Yes 15mg Take 15 mg Un [facility]erta ORAL 1-24 by mouth. ity of 16:58: [address] famotidine 2021-02 Yes 40mg Take 40 mg U nivers 40 mg 1-24 by mouth ity of tablet 16:58: in the [place] [address] morning. [facility] Branch DILTIAZEM 2021-02 Yes 120mg Take 120 Uni vers HCL ORAL 1-24 mg by ity of 16:58: mouth [place] 27 every 8 Medical (eight) Branch hours. MELOXICAM 2021-02 Yes 15mg Take 15 mg [facility] ORAL 1-24 by mouth. ity of 16:58: [address] MELOXICAM 2021-02 Yes 15mg Take 15 mg [facility] ORAL 1-24 by mouth. ity of 16:58: [address] MELOXICAM 2021-02 Yes 15mg Take 15 mg [facility] ORAL 1-24 by mouth. ity of 16:58: [address] MELOXICAM 2021-02 Yes 15mg Take 15 mg [facility] ORAL 1-24 by mouth. ity of 16:58: [address] ondansetron 2021-02 Yes 4mg 4 mg, Unive rs (ZOFRAN-ODT 1-23 Oral, ity of ) 14:35: Q6HPRN, [place] disintegrat 55 Starting Medi landry ing tablet on Tue 4 mg 12/30/21 at 0835, Until Discontinu ed, Routine, Nausea and Vomiting (N/V) HYDROcodone 2021-02- No 4647 1{tbl} Take 1 U nivers -acetaminop -01-07 tablet by it y of hen (NORCO) 00:00: 05:59 mouth [place] 5-325 mg 00 :00 every 6 Medical tablet (six) Branch hours as needed for Pain (scale 7-10) for up to 7 days. Indication s: acute pain alum-mag 2021-02 Yes 30mL 30 mL, Univers hydroxide-s -22 Oral, TID, it y of imeth 20:00: First dose [place] (MAALOX 00 on Tue12/29/21 Branch MAG-AL at 1400, PLUS) Until 200-200-20 Discontinu mg/5 mL ed, suspension Routine 30 mL alum-mag 2021-02 Yes 30mL 30 mL, Univers hydroxide-s 02-28 Oral, TID, it y of imeth 20:00: First dose [place] (MAALOX 00 on Tue12/29/21 Branch MAG-AL at 1400, PLUS) Until 200-200-20 Discontinu mg/5 mL ed, suspension Routine 30 mL acetaminoph 2021-02 Yes 650mg 650 mg, Un berta en 02-28 Oral, Q6H, ity of (TYLENOL) 18:00: First dose [place] tablet 650 00 (after Medical mg last Branch modificati on) on Tue12/29/21 at 1200, Until Discontinu ed, Routine acetaminoph 2021-02 Yes 650mg 650 mg, Un berta en 02-28 Oral, Q6H, ity of (TYLENOL) 18:00: First dose [place] tablet 650 00 (after Medical mg last Branch modificati on) on Tue12/29/21 at 1200, Until Discontinu ed, Routine HYDROmorpho 2021-02- No Patient Un berta ne 02-28 [place] ity of (DILAUDID) 16:30: 16:29 Dose: 0.2 [place] 10 mg/50 mL 00 :00 mg
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
Basal Rate: 0 mg/hr<BR&g t;Four Hour Dose Limit: 4 mg
IV Infusion, 50 mL, CONTINUOUS , Starting on Tue12/29/21 at 1030, Until Tue12/31/21 at 1029 HYDROmorpho 2021-02- No Patient Un berta ne 02-28 [place] ity of (DILAUDID) 16:30: 14:36 Dose: 0.2 [place] 10 mg/50 mL 00 :58 mg
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
Basal Rate: 0 mg/hr<BR&g t;Four Hour Dose Limit: 4 mg
IV Infusion, 50 mL, CONTINUOUS , Starting on Tue12/29/21 at 1030, Until Tue12/30/21 at 0836 HYDROcodone 2021-02 Yes 1{tbl} 1 tablet, Univers -acetaminop 02-28 Oral, ity of hen (NORCO) 15:24: Q4HPRN, [place] 10-325 mg 46 Starting Medica l tablet 1 on Tue tablet 12/29/21 at 0924, Until Discontinu ed, Routine, Pain (scale 7-10) HYDROcodone 2021-02 Yes 1{tbl} 1 tablet, Univers -acetaminop 02-28 Oral, ity of hen (NORCO) 15:24: Q4HPRN, [place] 10-325 mg 46 Starting Medica l tablet 1 on Tue tablet 12/29/21 at 0924, Until Discontinu ed, Routine, Pain (scale 7-10) cyclobenzap 2021-02 Yes 5mg 5 mg, Unive rs rine 02-28 Oral, TID, ity of (FLEXERIL) 15:15: First dose [place] tablet 5 mg [address] [facility] 12/29/21 Branch at 0915, Until Discontinu ed, Routine cyclobenzap 2021-02 Yes 5mg 5 mg, Unive rs rine 02-28 Oral, TID, ity of (FLEXERIL) 15:15: First dose [place] tablet 5 mg [address] [facility] 12/29/21 Branch at 0915, Until Discontinu ed, Routine enoxaparin 2021-02 Yes 40mg 40 mg, Unive rs (LOVENOX) 02-28 Subcutaneo ity of injection 15:00: us, DAILY, [place] 40 mg 00 First dose Medical on Tue12/29/21 at 0900, Until Discontinu ed, Routine furosemide 2021-02 Yes 20mg 20 mg, Unive rs (LASIX) - Oral, ity of tablet 20 15:00: DAILY, [place] mg 00 First dose Medical on [facility] 12/29/21 at 0900, Until Discontinu ed, Routine famotidine 2021-02 Yes 40mg 40 mg, Unive rs (PEPCID AC) 02-28 Oral, ity of tablet 40 15:00: DAILY, [place] mg 00 First dose Medical on [facility] 12/29/21 at 0900, Until Discontinu ed, Routine enoxaparin 2021-02 Yes 40mg 40 mg, Unive rs (LOVENOX) 02-28 Subcutaneo ity of injection 15:00: us, DAILY, [place] 40 mg 00 First dose Medical on [facility] 12/29/21 at 0900, Until Discontinu ed, Routine furosemide 2021-02 Yes 20mg 20 mg, Unive rs (LASIX) 02-28 Oral, ity of tablet 20 15:00: DAILY, [place] mg 00 First dose Medical on [facility] 12/29/21 at 0900, Until Discontinu ed, Routine famotidine 2021-02 Yes 40mg 40 mg, Unive rs (PEPCID AC) 02-28 Oral, ity of tablet 40 15:00: DAILY, [place] mg 00 First dose Medical on [facility] 12/29/21 at 0900, Until Discontinu ed, Routine atorvastati 2021-02 Yes 80mg 80 mg, Univ ers n (LIPITOR) 02-28 Oral, QHS, it y of tablet 80 03:00: First dose [place] mg 00 on [facility] 12/28/21 Branch at 2100, Until Discontinu ed, Routine amitriptyli 2021-02 Yes 100mg 100 mg, Un berat ne (ELAVIL) 02-28 Oral, QHS, it y of tablet 100 03:00: First dose [place] mg 00 on [facility] 12/28/21 Branch at 2100, Until Discontinu ed, Routine atorvastati 2021-02 Yes 80mg 80 mg, Univ ers n (LIPITOR) 02-28 Oral, QHS, it y of tablet 80 03:00: First dose [place] mg 00 on [facility] 12/28/21 Branch at 2100, Until Discontinu ed, Routine amitriptyli 2021-02 Yes 100mg 100 mg, Un berta ne (ELAVIL) - Oral, QHS, it y of tablet 100 03:00: First dose [place] mg 00 on [facility] 12/28/21 Branch at 2100, Until Discontinu ed, Routine levETIRAcet 2021-02 Yes 1000mg 1,000 mg, Univers am (KEPPRA) 02-28 Oral, BID, it y of tablet 02:00: First dose [place] 1,000 mg 00 on [facility] 12/28/21 Branch at 2000, Until Discontinu ed, Routine hydrOXYchlo 2021-02 Yes 200mg 200 mg, Un berta roQUINE 02-28 Oral, BID, ity of (PLAQUENIL) 02:00: First dose [place] tablet 200 00 on [facility] Medical 12/28/21 Branch at 2000, Until Discontinu ed, Routine
Indicatio n: Rheumatic disorder levETIRAcet 2021-02 Yes 1000mg 1,000 mg, Univers am (KEPPRA) 02-28 Oral, BID, it y of tablet 02:00: First dose [place] 1,000 mg 00 on [facility] 12/28/21 Branch at 2000, Until Discontinu ed, Routine hydrOXYchlo 2021-02 Yes 200mg 200 mg, Un berta roQUINE 02-28 Oral, BID, ity of (PLAQUENIL) 02:00: First dose [place] tablet 200 00 on [facility] 12/28/21 Branch at 2000, Until Discontinu ed, Routine
Indicatio n: Rheumatic disorder HYDROmorpho 2021-02- No Patient Un berta ne 02-27 [place] ity of (DILAUDID) 23:30: 13:39 Dose: 0.2 [place] 10 mg/50 mL 00 :30 mg
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
Basal Rate: 0 mg/hr<BR&g t;Four Hour Dose Limit: 4 mg
IV Infusion, 50 mL, CONTINUOUS , Starting on Tue12/28/21 at 1730, Until Tue12/29/21 at 0739 HYDROmorpho 2021-02- No Patient Un berta ne 02-27 [place] ity of (DILAUDID) 23:30: 13:39 Dose: 0.2 [place] 10 mg/50 mL 00 :30 mg
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
Basal Rate: 0 mg/hr<BR&g t;Four Hour Dose Limit: 4 mg
IV Infusion, 50 mL, CONTINUOUS , Starting on Tue12/28/21 at 1730, Until Tue12/29/21 at 0739 naloxone 2021-02 Yes .1mg 0.1 mg, Univer s (NARCAN) 02-27 Slow IV ity of injection 22:21: Push, [place] 0.1 mg 08 [facility], Branch Starting on Tue12/28/21 at 1621, Until Discontinu ed, Routine naloxone 2021-02 Yes .1mg 0.1 mg, Univer s (NARCAN) 02-27 Slow IV ity of injection 22:21: Push, [place] 0.1 mg 08 [facility], Branch Starting on Tue12/28/21 at 1621, Until Discontinu ed, Routine propranoloL 2021-02 Yes 40mg 40 mg, Univ ers (INDERAL) 1-21 Oral, TID, ity of tablet 40 20:00: First dose [place] mg 00 on [facility] 12/28/21 Branch at 1400, Until Discontinu ed, Routine diltiazem 2021-02 Yes 120mg 120 mg, Univ ers (CARDIZEM) 1-21 Oral, Q8H, ity of tablet 120 20:00: First dose [place] mg 00 on [facility] 12/28/21 Branch at 1400, Until Discontinu ed propranoloL 2021-02 Yes 40mg 40 mg, Univ ers (INDERAL) 1-21 Oral, TID, ity of tablet 40 20:00: First dose [place] mg 00 on [facility] 12/28/21 Branch at 1400, Until Discontinu ed, Routine diltiazem 2021-02 Yes 120mg 120 mg, Univ ers (CARDIZEM) 1-21 Oral, Q8H, ity of tablet 120 20:00: First dose [place] mg 00 on [facility] 12/28/21 Branch at 1400, Until Discontinu ed HYDROmorpho 2021-02- No .2mg 0.2 mg, Un berta ne 02-27 Slow IV ity of (DILAUDID) 19:13: 23:34 Push, [place] injection 34 :16 Q5MIN PRN, Medi landry 0.2 mg 10 doses, Branch Starting on Tue12/28/21 at 1313, Until Tue12/28/21 at 1734, Routine, Pain (scale 7-10), PACU
Us e approved by (Faculty): PACU USE -ANESTHESI A SERVICE-HY DROMORPHON E INJECTIONS FENTanyl PF 2021-02- No 25ug 25 mcg, Un berta (SUBLIMAZE 02-27 Slow IV ity o f (PF)) 19:13: 22:20 [place], [place] injection 34 :00 Q5MIN PRN, Medi landry 25 mcg 4 doses, Branch Starting on Tue12/28/21 at 1313, Until Discontinu ed, Routine, Pain (scale 4-6), PACU HYDROmorpho 2021-02- No .2mg 0.2 mg, Un berta ne 02-27 Slow IV ity of (DILAUDID) 19:13: 23:34 [place], [place] injection 34 :16 Q5MIN PRN, Medi landry 0.2 mg 10 doses, Branch Starting on Tue12/28/21 at 1313, Until Tue12/28/21 at 1734, Routine, Pain (scale 7-10), PACU
Us e approved by (Faculty): PACU USE -ANESTHESI A SERVICE-HY DROMORPHON E INJECTIONS FENTanyl PF 2021-02- No 25ug 25 mcg, Un berta (SUBLIMAZE 02-27 Slow IV ity o f (PF)) 19:13: 22:20 Push, [place] injection 34 :00 Q5MIN PRN, Medi landry 25 mcg 4 doses, Branch Starting on Tue12/28/21 at 1313, Until Discontinu ed, Routine, Pain (scale 4-6), PACU acetaminoph 2021-02- No 650mg 650 mg, U nivers en 02-27 Oral, ity of (TYLENOL) 18:55: 13:47 Q6HPRN, [place] tablet 650 08 :13 Starting Medic al mg on Tue Branch 12/28/21 at 1255, Until Tue12/29/21 at 0747, Routine, Pain (scale 1-3) acetaminoph 2021-02- No 650mg 650 mg, U nivers en 02-27 Oral, ity of (TYLENOL) 18:55: 13:47 Q6HPRN, [place] tablet 650 08 :13 Starting Medic al mg on Tue12/28/21 at 1255, Until Tue12/29/21 at 0747, Routine, Pain (scale 1-3) ondansetron 2021-02 Yes 4mg 4 mg, Slow Univers (ZOFRAN 02-27 IV Push, ity of (PF)) 18:54: Q6HPRN, [place] injection 4 57 Starting Medi landry mg on Tue Branch 12/28/21 at 1254, Until Discontinu ed, Routine, Nausea and Vomiting (N/V) sugammadex 2021-02- No IV [place], [place] b[place] (BRIDION) 02-27 ONCE INTRA ity of injection 18:42: 19:04 PROCEDURE, [place] 00 :26 Starting Medical on Tue Branch 12/28/21 at 1242, Until Tue12/28/21 at 1304, Routine, Intra-op ondansetron 2021-02- No Slow IV Un b[place] (ZOFRAN 02-27 Push, ONCE ity o f (PF)) 18:37: 19:04 INTRA [place] injection 00 :26 PROCEDURE, Medi landry Starting Branch on Tue12/28/21 at 1237, Until Tue12/28/21 at 1304, Routine, Intra-op PHENYLephri 2021-02- No Slow IV Un berta ne 1000 02-27 Push, ity of mcg/10 mL 18:10: 19:04 CONTINUOUS [place] in 0.9% 00 :26 PRN, Medical NaCl Starting Branch syringe on Tue12/28/21 at 1210, Until Tue12/28/21 at 1304, Routine, Intra-op PHENYLephri 2021-02- No Slow IV Un berta ne 1000 02-27 Push, ONCE ity o f mcg/10 mL 17:38: 19:04 INTRA [place] in 0.9% 00 :26 PROCEDURE, Medica l NaCl Starting Branch syringe on Tue12/28/21 at 1138, Until Tue12/28/21 at 1304, Routine, Intra-op furosemide 2021-02 Yes 20mg Take 20 mg U nivers (LASIX) 20 02-27 by mouth ity o f mg tablet 17:34: in the [place] [address] morning. Medical Branch MELOXICAM 2021-02 Yes 15mg Take 15 mg [place] [facility] ORAL -21 by mouth. ity of 17:34: [place] [address] Medical Branch famotidine 2021-02 Yes 40mg Take 40 mg U nivers 40 mg -21 by mouth ity of tablet 17:34: in the [place] [address] morning. Medical Branch DILTIAZEM 2021-02 Yes 120mg Take 120 Uni vers HCL ORAL 1-21 mg by ity of 17:34: mouth [place] [address] every 8 Medical (eight) Branch hours. ketamine 2021-02- No Intravenou Un berta (KETALAR) 02-27 s, ONCE ity of injection 16:52: 19:04 INTRA [place] 00 :26 PROCEDURE, Medical Starting Branch on Tue12/28/21 at 1052, Until Tue12/28/21 at 1304, Routine, Intra-op bupivacaine 2021-02- No PRN, Unive rs (preserv 02-27 Starting ity of free) 15:47: 19:03 on Tue (SENSORCAIN 00 :19 12/28/21 [facility] landry E MPF) 0.25 at 0947, Bran ch % (2.5 Intra-op mg/mL) 22 mL, bupivacaine liposome (PF) (EXPAREL (PF)) 1.3 % (13.3 mg/mL) 266 mg, NaCl 0.9% (NS) 50 mL HYDROmorphO 2021-02- No Slow IV Un berta ne 02-27 Push, ONCE ity of (DILAUDID) 14:03: 19:04 INTRA [place] injection 00 :26 PROCEDURE, [facility] landry Starting Branch on Tue12/28/21 at 0803, Until Tue12/28/21 at 1304, Routine, Intra-op bupivacaine 2021-02- No PRN, Unive rs (preserv 02-27 Starting ity of free) 14:03: 19:03 on [facility] (SENSORCAIN 00 :19 12/28/21 Medi landry E MPF) 0.25 at 0803, Bran ch % (2.5 Until Mon mg/mL) 12/28/21 injection at 1303, Routine, Intra-op dexamethaso 2021-02- No IV [place], U nivers ne 02-27 ONCE INTRA ity of (DECADRON 13:58: 19:04 PROCEDURE, [place] PHOSPHATE) 00 :26 Starting Medic al injection on [facility] 12/28/21 at 0758, Until Tue12/28/21 at 1304, Routine, Intra-op midazolam 2021-02- No IV [place], Uni vers (VERSED) 02-27 ONCE INTRA ity of injection 13:48: 19:04 PROCEDURE, [place] 00 :[address] [facility] 12/28/21 at 0748, Until Tue12/28/21 at 1304, Routine, Intra-op ceFAZolin 2021-02- No Slow IV Univ ers (ANCEF) 02-27 Push, ONCE ity o f injection 13:32: 19:04 INTRA [place] 00 : PROCEDURE, Medical Starting Branch on Tue12/28/21 at 0732, Until Tue12/28/21 at 1304, SULAIMAN, Intra-op rocuronium 2021-02- No IV Push, [facility] (ZEMURON) 02-27 ONCE INTRA ity of injection 13:23: 19:04 PROCEDURE, [place] 00 :[address] [facility] 12/28/21 at 0723, Until Tue12/28/21 at 1304, Routine, Intra-op propofoL IV 2021-02- No Slow IV [facility] infusion 02-27 Push, ONCE ity of 13:22: 19:04 INTRA [place] 00 : PROCEDURE, Medical Starting Branch on Tue12/28/21 at 0722, Until Tue12/28/21 at 1304, Routine, Intra-op lidocaine 2021-02- No Intravenou U nivers 1% 02-27 s, ONCE ity of (XYLOCAINE) 13:22: 19:04 [place]TRA [place] 100 mg/10 00 :26 PROCEDURE, Medi landry mL (1 %) Starting Branch injection on Tue12/28/21 at 0722, Until Tue12/28/21 at 1304, Routine, Intra-op FENTanyl PF 2021-02- No Intravenou Univers (SUBLIMAZE 02-27 11 s, ONCE ity o f (PF)) 13:22: 19:04 INTRA [place] injection 00 :26 PROCEDURE, Medi landry Starting Branch on Tue12/28/21 at 0722, Until Tue12/28/21 at 1304, Routine, Intra-op lactated 2021-02- No IV Univers ringers IV 02-27 11 Infusion, ity of infusion 13:19: 19:04 CONTINUOUS [place] 00 :26 PRN, Medical Starting Branch on Tue12/28/21 at 0719, Until Tue12/28/21 at 1304, Routine, Intra-op furosemide 2021-02 Yes 20mg Take 20 mg U nivers (LASIX) 20 -21 by mouth ity o f mg tablet 13:03: in the [place] [address] morning. Medical Branch MELOXICAM 2021-02 Yes 15mg Take 15 mg [facility] ORAL 1-21 by mouth. ity of 13:03: [place] [address] Medical Branch famotidine 2021-02 Yes 40mg Take 40 mg U nivers 40 mg 1-21 by mouth ity of tablet 13:03: in the [place] [address] morning. Medical Branch DILTIAZEM 2021-02 Yes 120mg Take 120 Uni vers HCL ORAL 1-21 mg by ity of 13:03: mouth [place] [address] every 8 Medical (eight) Branch hours. cetirizine 2021-02 Yes 10mg Take 10 mg U nivers 10 mg 1-21 by mouth ity of tablet 12:56: daily. [place] [address] Medical Branch propranoloL 2021-02 Yes 40mg Take 40 mg Univers 40 mg 1-21 by mouth 3 ity of tablet 12:56: (three) [place] [address] times Medical daily. Branch pyridoxine, 2021-02 Yes 25mg Take 25 mg Univers VITAMIN 1-21 by mouth ity of B-6, 25 mg 12:56: daily. [facility] 34 Medical Branch acetaminoph 2021-02 Yes 650mg Take 650 U nivers en 650 mg 1-21 mg by ity of CR tablet 12:56: mouth [place] 34 every 8 Medical (eight) Branch hours as needed for Pain. docusate 2021-02 Yes 100mg Take 100 Univ ers 100 mg 1-21 mg by ity of capsule 12:56: mouth [place] 34 daily. Medical Branch HYDROcodone 2021-02 Yes 1{tbl} Take 1 [facility] -acetaminop 1-21 tablet by ity of hen 5-325 12:56: mouth [place] mg tablet 34 every 6 Medical (six) Branch hours as needed. polyethylen 2021-02 Yes Take by Uni vers e glycol -21 mouth. ity of 3350 12:56: [place] (MIRALAX 34 Medical ORAL) Branch cetirizine 2021-02 Yes 10mg Take 10 mg U nivers 10 mg -21 by mouth ity of tablet 12:56: daily. [place] [address] Medical Branch propranoloL 2021-02 Yes 40mg Take 40 mg Univers 40 mg -21 by mouth 3 ity of tablet 12:56: (three) [place] 34 times Medical daily. Branch pyridoxine, 2021-02 Yes 25mg Take 25 mg Univers VITAMIN -21 by mouth ity of B-6, 25 mg 12:56: daily. [facility] 34 Medical Branch acetaminoph 2021-02 Yes 650mg Take 650 U nivers en 650 mg 1-21 mg by ity of CR tablet 12:56: mouth [place] 34 every 8 Medical (eight) Branch hours as needed for Pain. docusate 2021-02 Yes 100mg Take 100 Univ ers 100 mg 1-21 mg by ity of capsule 12:56: mouth [place] 34 daily. Medical Branch HYDROcodone 2021-02 Yes 1{tbl} Take 1 [facility] -acetaminop 1-21 tablet by ity of hen 5-325 12:56: mouth [place] mg tablet 34 every 6 Medical (six) Branch hours as needed. polyethylen 2021-02 Yes Take by Uni vers e glycol 1-21 mouth. ity of 3350 12:56: [place] (MIRALAX 34 Medical ORAL) Branch heparin 2021-02 5000U 5,000 Univers (porcine) -12-28 Units, ity of injection 12:38: 13:06 Subcutaneo [place] 5,000 Units 00 :00 us, ONCE, Med ical 1 dose, On Branch 12/28/21 at 0645, SULAIMAN heparin 2021-02- No 5000U 5,000 Univers (porcine) -12-28 Units, ity of injection 12:38: 13:06 Subcut[place]o [place] 5,000 Units 00 :00 us, ONCE, Med ical 1 dose, On Branch 12/28/21 at 0645, SULAIMAN DILTIAZEM 2021-02 Yes 120mg Take 120 Uni vers HCL ORAL 1-16 mg by ity of 18:00: mouth [place] 36 every 8 Medical (eight) Branch hours. DILTIAZEM 2021-02 Yes 120mg Take 120 Uni vers HCL ORAL 1-16 mg by ity of 18:00: mouth [place] 36 every 8 Medical (eight) Branch hours. DILTIAZEM 2021-02 Yes 120mg Take 120 Uni vers HCL ORAL 1-16 mg by ity of 18:00: mouth [place] 36 every 8 Medical (eight) Branch hours. MELOXICAM 2021-02 Yes 15mg Take 15 mg [facility] ORAL 1-16 by mouth. ity of 17:54: [address] famotidine 2021-02 Yes 40mg Take 40 mg U nivers 40 mg 1-16 by mouth ity of tablet 17:54: in the [place] 18 morning. [facility] Branch MELOXICAM 2021-02 Yes 15mg Take 15 mg [facility] ORAL 1-16 by mouth. ity of 17:54: [address] famotidine 2021-02 Yes 40mg Take 40 mg U nivers 40 mg 1-16 by mouth ity of tablet 17:54: in the [place] 18 morning. [facility] Branch MELOXICAM 2021-02 Yes 15mg Take 15 mg [facility] ORAL 1-16 by mouth. ity of 17:54: [address] famotidine 2021-02 Yes 40mg Take 40 mg U nivers 40 mg 1-16 by mouth ity of tablet 17:54: in the [place] 18 morning. Medical Branch pyridoxine, 2021-02 Yes 25mg Take 25 mg Univers VITAMIN 1-16 by mouth ity of B-6, 25 mg 17:15: daily. [place] tablet 57 [facility] HYDROcodone 2021-02 Yes 1{tbl} Take 1 [facility] -acetaminop 1-16 tablet by ity of hen 5-325 17:15: mouth [place] mg tablet 57 every 6 Medical (six) Branch hours as needed. furosemide 2021-02 Yes 20mg Take 20 mg U nivers (LASIX) 20 1-16 by mouth ity o f mg tablet 17:15: in the [place] 57 morning. Medical Branch pyridoxine, 2021-02 Yes 25mg Take 25 mg Univers VITAMIN 1-16 by mouth ity of B-6, 25 mg 17:15: daily. [place] tablet 57 Medical Branch HYDROcodone 2021-02 Yes 1{tbl} Take 1 [facility] -acetaminop 1-16 tablet by ity of hen 5-325 17:15: mouth [place] mg tablet 57 every 6 Medical (six) Branch hours as needed. furosemide 2021-02 Yes 20mg Take 20 mg U nivers (LASIX) 20 1-16 by mouth ity o f mg tablet 17:15: in the [place] 57 morning. Medical Branch pyridoxine, 2021-02 Yes 25mg Take 25 mg Univers VITAMIN 1-16 by mouth ity of B-6, 25 mg 17:15: daily. [place] tablet 57 Medical Branch HYDROcodone 2021-02 Yes 1{tbl} Take 1 [facility] -acetaminop 1-16 tablet by ity of hen 5-325 17:15: mouth [place] mg tablet 57 every 6 Medical (six) Branch hours as needed. furosemide 2021-02 Yes 20mg Take 20 mg U nivers (LASIX) 20 1-16 by mouth ity o f mg tablet 17:15: in the [place] 57 morning. Medical Branch cetirizine 2021-02 Yes 10mg Take 10 mg U nivers 10 mg 1-16 by mouth ity of tablet 16:47: daily. [place] 56 Medical Branch acetaminoph 2021-02 Yes 650mg Take 650 U nivers en 650 mg 1-16 mg by ity of CR tablet 16:47: mouth [place] 56 every 8 Medical (eight) Branch hours as needed for Pain. docusate 2021-02 Yes 100mg Take 100 Univ ers 100 mg 1-16 mg by ity of capsule 16:47: mouth [place] 56 daily. Medical Branch polyethylen 2021-02 Yes Take by Uni vers e glycol 1-16 mouth. ity of 3350 16:47: [place] (MIRALAX 56 Medical ORAL) Branch cetirizine 2021-02 Yes 10mg Take 10 mg U nivers 10 mg 1-16 by mouth ity of tablet 16:47: daily. [place] [address] Medical Branch acetaminoph 2021-02 Yes 650mg Take 650 U nivers en 650 mg 1-16 mg by ity of CR tablet 16:47: mouth [place] 56 every 8 Medical (eight) Branch hours as needed for Pain. docusate 2021-02 Yes 100mg Take 100 Univ ers 100 mg 1-16 mg by ity of capsule 16:47: mouth [place] 56 daily. Medical Branch polyethylen 2021-02 Yes Take by Uni vers e glycol 1-16 mouth. ity of 3350 16:47: [place] (MIRALAX 56 Medical ORAL) Branch cetirizine 2021-02 Yes 10mg Take 10 mg U nivers 10 mg 1-16 by mouth ity of tablet 16:47: daily. [place] [address] Medical Branch acetaminoph 2021-02 Yes 650mg Take 650 U nivers en 650 mg 1-16 mg by ity of CR tablet 16:47: mouth [place] 56 every 8 Medical (eight) Branch hours as needed for Pain. docusate 2021-02 Yes 100mg Take 100 Univ ers 100 mg 1-16 mg by ity of capsule 16:47: mouth [place] 56 daily. Medical Branch polyethylen 2021-02 Yes Take by Uni vers e glycol 1-16 mouth. ity of 3350 16:47: [place] (MIRALAX 56 Medical ORAL) Branch cetirizine Yes 10mg Take 10 mg U nivers 10 mg 8-23 by mouth ity of tablet 15:02: daily. [place] 10 Medical Branch propranoloL 2021-0 Yes 40mg Take 40 mg Univers 40 mg 8-23 by mouth 3 ity of tablet 15:02: (three) [place] 10 times Medical daily. Branch acetaminoph 0 Yes 650mg Take 650 U nivers en [...] Medical (six) Branch hours as needed. polyethylen 2022-0 Yes Take by Uni vers e glycol 8-23 mouth. ity of 3350 15:02: [place] (MIRALAX 10 Medical ORAL) Branch cetirizine 2-0 Yes 10mg Take 10 mg U nivers 10 mg 8-23 by mouth ity of tablet 15:02: daily. [place] 10 Medical Branch propranoloL 2-0 Yes 40mg Take 40 mg Univers 40 mg 8-23 by mouth 3 ity of tablet 15:02: (three) [place] 10 times Medical daily. Branch acetaminoph 2-0 Yes 650mg Take 650 U nivers en 650 mg 8-23 mg by ity of CR tablet 15:02: mouth [place] 10 every 8 Medical (eight) Branch hours as needed for Pain. docusate 2022-0 Yes 100mg Take 100 Univ ers 100 mg 8-23 mg by ity of capsule 15:02: mouth [place] 10 daily. Medical Branch HYDROcodone 2-0 Yes 1{tbl} Take 1 [facility] -acetaminop 8-23 tablet by ity of hen 5-325 15:02: mouth [place] mg tablet 10 every 6 Medical (six) Branch hours as needed. polyethylen 2-0 Yes Take by Uni vers e glycol 8-23 mouth. ity of 3350 15:02: [place] (MIRALAX 10 Medical ORAL) Branch cetirizine 2-0 Yes 10mg Take 10 mg U nivers 10 mg 8-23 by mouth ity of tablet 15:02: daily. [place] 10 Medical Branch propranoloL 2-0 Yes 40mg Take 40 mg Univers 40 mg 8-23 by mouth 3 ity of tablet 15:02: (three) [place] 10 times Medical daily. Branch acetaminoph 2-0 Yes 650mg Take 650 U nivers en 650 mg 8-23 mg by ity of CR tablet 15:02: mouth [place] 10 every 8 Medical (eight) Branch hours as needed for Pain. docusate 2022-0 Yes 100mg Take 100 Univ ers 100 mg 8-23 mg by ity of capsule 15:02: mouth [place] 10 daily. Medical Branch HYDROcodone 2022-0 Yes 1{tbl} Take 1 [facility] -acetaminop 8-23 tablet by ity of hen 5-325 15:02: mouth [place] mg tablet 10 every 6 Medical (six) Branch hours as needed. polyethylen 2-0 Yes Take by Uni vers e glycol 8-23 mouth. ity of 3350 15:02: [place] (MIRALAX 10 Medical ORAL) Branch cetirizine 2021-0 Yes 10mg Take 10 mg U nivers 10 mg 8-23 by mouth ity of tablet 15:02: daily. [place] 10 Medical Branch propranoloL 2-0 Yes 40mg Take 40 mg Univers 40 [...] Medical (six) Branch hours as needed. polyethylen 2-0 Yes Take by Uni vers e glycol 8-23 mouth. ity of 3350 15:02: [place] (MIRALAX 10 Medical ORAL) Branch propranoloL 2-0 Yes 40mg Take 40 mg Univers 40 mg 8-23 by mouth 3 ity of tablet 15:02: (three) [place] 10 times Medical daily. Branch propranoloL 2-0 Yes 40mg Take 40 mg Univers 40 mg 8-23 by mouth 3 ity of tablet 15:02: (three) [place] 10 times Medical daily. Branch propranoloL 2022-0 Yes 40mg Take 40 mg Univers 40 mg 8-23 by mouth 3 ity of tablet 15:02: (three) [place] 10 times Medical daily. Branch pyridoxine, 2021-0 Yes 25mg Take 25 mg Univers VITAMIN 5-27 by mouth ity of B-6, 25 mg 09:03: daily. [place] tablet 31 Medical Branch pyridoxine, 2021-0 Yes 25mg Take 25 mg Univers VITAMIN 5-27 by mouth ity of B-6, 25 mg 09:03: daily. [place] tablet 31 Medical Branch pyridoxine, 2021-0 Yes 25mg Take 25 mg Univers VITAMIN 5-27 by mouth ity of B-6, 25 mg 09:03: daily. [place] tablet 31 Medical Branch pyridoxine, 2021-0 Yes 25mg Take 25 mg Univers VITAMIN 5-27 by mouth ity of B-6, 25 mg 09:03: daily. [place] tablet 31 Medical Branch LEVETIRACET 0 Yes TAKE 2 Univ ers AM 500 mg 4-04 TABLETS BY ity of tablet 00:00: MOUTH TWICE Medical DAILY Branch LEVETIRACET 2021-0 Yes TAKE 2 Univ ers AM 500 mg 4-04 TABLETS BY ity of tablet 00:00: MOUTH TWICE Medical DAILY Branch LEVETIRACET 2021-0 Yes TAKE 2 Univ ers AM 500 mg 4-04 TABLETS BY ity of tablet 00:00: MOUTH TWICE Medical DAILY Branch LEVETIRACET 2021-0 Yes TAKE 2 Univ ers AM 500 mg 4-04 TABLETS BY ity of tablet 00:00: MOUTH TWICE Medical DAILY Branch LEVETIRACET 2021-0 Yes TAKE 2 Univ ers AM 500 mg 4-04 TABLETS BY ity of tablet 00:00: MOUTH TWICE Medical DAILY Branch LEVETIRACET 2021-0 Yes TAKE 2 Univ ers AM 500 mg 4-04 TABLETS BY ity of tablet 00:00: MOUTH TWICE Medical DAILY Branch LEVETIRACET 2021-0 Yes TAKE 2 Univ ers AM 500 mg 4-04 TABLETS BY ity of tablet 00:00: MOUTH TWICE Medical DAILY Branch LEVETIRACET 2021-0 Yes TAKE 2 Univ ers AM 500 mg 4-04 TABLETS BY ity of tablet 00:00: MOUTH TWICE Medical DAILY Branch LEVETIRACET 2021-0 Yes TAKE 2 Univ ers AM 500 mg 4-04 TABLETS BY ity of tablet 00:00: MOUTH TWICE Medical DAILY Branch LEVETIRACET 2021-0 Yes TAKE 2 Univ ers AM 500 mg 4-04 TABLETS BY ity of tablet 00:00: MOUTH TWICE Medical DAILY Branch LEVETIRACET 2021-0 Yes TAKE 2 Univ ers AM 500 mg 4-04 TABLETS BY ity of tablet 00:00: MOUTH 00 TWICE Medical DAILY Branch LEVETIRACET 2-0 Yes TAKE 2 Univ ers AM 500 mg 4-04 TABLETS BY ity of tablet 00:00: TWICE Medical DAILY Branch LEVETIRACET 2-0 Yes TAKE 2 Univ ers AM 500 mg 4-04 TABLETS BY ity of tablet 00:00: TWICE Medical DAILY Branch LEVETIRACET 2-0 Yes TAKE 2 Univ ers AM 500 mg 4-04 TABLETS BY ity of tablet 00:00: TWICE Medical DAILY Branch LEVETIRACET 2-0 Yes TAKE 2 Univ ers AM 500 mg 4-04 TABLETS BY ity of tablet 00:00: TWICE Medical DAILY Branch LEVETIRACET 2021-0 Yes TAKE 2 Univ ers AM 500 mg 4-04 TABLETS BY ity of tablet 00:00: TWICE Medical DAILY Branch LEVETIRACET 2021-0 Yes TAKE 2 Univ ers AM 500 mg 4-04 TABLETS BY ity of tablet 00:00: TWICE Medical DAILY Branch LEVETIRACET 2-0 Yes TAKE 2 Univ ers AM 500 mg 4-04 TABLETS BY ity of tablet 00:00: TWICE Medical DAILY Branch LEVETIRACET 2021-0 Yes TAKE 2 Univ ers AM 500 mg 4-04 TABLETS BY ity of tablet 00:00: TWICE Medical DAILY Branch LEVETIRACET 2-0 Yes TAKE 2 Univ ers AM 500 mg 4-04 TABLETS BY ity of tablet 00:00: TWICE Medical DAILY Branch LEVETIRACET 2-0 Yes TAKE 2 Univ ers AM 500 mg 4-04 TABLETS BY ity of tablet 00:00: TWICE Medical DAILY Branch omeprazole 2022-0 Yes [id number] 40mg Take 1 Univers 40 mg 1-12 capsule by ity of capsule 00:00: mouth (two) Medical times Branch daily. omeprazole 2022-0 Yes [id number] 40mg Take 1 Univers 40 mg 1-12 capsule by ity of capsule 00:00: mouth (two) Medical times Branch daily. omeprazole 2022-0 Yes [id number] 40mg Take 1 Univers 40 mg 1-12 capsule by ity of capsule 00:00: mouth (two) Medical times Branch daily. omeprazole 2022-0 Yes [id number] 40mg Take 1 Univers 40 mg 1-12 capsule by ity of capsule 00:00: mouth [place] (two) Medical times Branch daily. omeprazole 2022-0 Yes [id number] 40mg Take 1 Univers 40 mg 1-12 capsule by ity of capsule 00:00: mouth (two) Medical times Branch daily. omeprazole 2022-0 Yes [id number] 40mg Take 1 Univers 40 mg 1-12 capsule by ity of capsule 00:00: mouth [place] (two) Medical times Branch daily. omeprazole 2022-0 Yes [id number] 40mg Take 1 Univers 40 mg 1-12 capsule by ity of capsule 00:00: mouth [place] (two) Medical times Branch daily. omeprazole 2022-0 Yes [id number] 40mg Take 1 Univers 40 mg 1-12 capsule by ity of capsule 00:00: mouth [place] (two) Medical times Branch daily. omeprazole 2-0 Yes [id number] 40mg Take 1 Univers 40 mg 1-12 capsule by ity of capsule 00:00: mouth [place] (two) Medical times Branch daily. omeprazole 2022-0 Yes [id number] 40mg Take 1 Univers 40 mg 1-12 capsule by ity of capsule 00:00: mouth [place] (two) Medical times Branch daily. omeprazole 2-0 Yes [id number] 40mg Take 1 Univers 40 mg 1-12 capsule by ity of capsule 00:00: mouth [place] (two) Medical times Branch daily. omeprazole 2022-0 Yes [id number] 40mg Take 1 Univers 40 mg 1-12 capsule by ity of capsule 00:00: mouth [place] (two) Medical times Branch daily. omeprazole 2022-0 Yes [id number] 40mg Take 1 Univers 40 mg 1-12 capsule by ity of capsule 00:00: mouth [place] (two) Medical times Branch daily. omeprazole 2022-0 Yes [id number] 40mg Take 1 Univers 40 mg 1-12 capsule by ity of capsule 00:00: mouth [place] (two) Medical times Branch daily. omeprazole 2022-0 Yes [id number] 40mg Take 1 Univers 40 mg 1-12 capsule by ity of capsule 00:00: mouth 2 [place] (two) Medical times Branch daily. omeprazole 2022-0 Yes [id number] 40mg Take 1 Univers 40 mg 1-12 capsule by ity of capsule 00:00: mouth 2 [place] (two) Medical times Branch daily. omeprazole 2022-0 Yes [id number] 40mg Take 1 Univers 40 mg 1-12 capsule by ity of capsule 00:00: mouth 2 [place] (two) Medical times Branch daily. omeprazole 2022-0 Yes [id number] 40mg Take 1 Univers 40 mg 1-12 capsule by ity of capsule 00:00: mouth 2 [place] (two) Medical times Branch daily. omeprazole 2022-0 Yes [id number] 40mg Take 1 Univers 40 mg 1-12 capsule by ity of capsule 00:00: mouth 2 [place] (two) Medical times Branch daily. omeprazole 2022-0 Yes [id number] 40mg Take 1 Univers 40 mg 1-12 capsule by ity of capsule 00:00: mouth [place] (two) Medical times Branch daily. omeprazole 2022-0 Yes [id number] 40mg Take 1 Univers 40 mg 1-12 capsule by ity of capsule 00:00: mouth [place] (two) Medical times Branch daily. amitriptyli 2020- Yes 1{tbl} 1 tablet Univers ne 100 mg 2-11 at ity of tablet 00:00: bedtime. [place] 00 Takes Medical total of Branch 125mg amitriptyli 2020-1 Yes 1{tbl} 1 tablet Univers ne 100 mg 2-11 at ity of tablet 00:00: bedtime. [place] 00 Takes Medical total of Branch 125mg amitriptyli 2020-1 Yes 1{tbl} 1 tablet Univers ne 100 mg 2-11 at ity of tablet 00:00: bedtime. [place] 00 Takes Medical total of Branch 125mg amitriptyli 2020-1 Yes 1{tbl} 1 tablet Univers ne 100 mg 2-11 at ity of tablet 00:00: bedtime. [place] 00 Takes Medical total of Branch 125mg amitriptyli 2020-1 Yes 1{tbl} 1 tablet Univers ne 100 mg 2-11 at ity of tablet 00:00: bedtime. [place] 00 Takes Medical total of Branch 125mg amitriptyli 2021-1 Yes 1{tbl} 1 tablet Univers ne 100 mg 2-11 at ity of tablet 00:00: bedtime. [place] 00 Takes Medical total of Branch 125mg amitriptyli 2021-1 Yes 1{tbl} 1 tablet Univers ne 100 mg 2-11 at ity of tablet 00:00: bedtime. [place] 00 Takes Medical total of Branch 125mg amitriptyli 2021-1 Yes 1{tbl} 1 tablet Univers ne 100 mg 2-11 at ity of tablet 00:00: bedtime. [place] 00 Takes Medical total of Branch 125mg amitriptyli 2021-1 Yes 1{tbl} 1 tablet Univers ne 100 mg 2-11 at ity of tablet 00:00: bedtime. [place] 00 Takes Medical total of Branch 125mg amitriptyli 2021-1 Yes 1{tbl} 1 tablet Univers ne 100 mg 2-11 at ity of tablet 00:00: bedtime. [place] 00 Takes Medical total of Branch 125mg amitriptyli 2021-1 Yes 1{tbl} 1 tablet Univers ne 100 mg 2-11 at ity of tablet 00:00: bedtime. [place] 00 Takes Medical total of Branch 125mg amitriptyli 2021-1 Yes 1{tbl} 1 tablet Univers ne 100 mg 2-11 at ity of tablet 00:00: bedtime. [place] 00 Takes Medical total of Branch 125mg amitriptyli 2021-1 Yes 1{tbl} 1 tablet Univers ne 100 mg 2-11 at ity of tablet 00:00: bedtime. [place] 00 Takes Medical total of Branch 125mg amitriptyli 2021-1 Yes 1{tbl} 1 tablet Univers ne 100 mg 2-11 at ity of tablet 00:00: bedtime. [place] 00 Takes Medical total of Branch 125mg amitriptyli 2021-1 Yes 1{tbl} 1 tablet Univers ne 100 mg 2-11 at ity of tablet 00:00: bedtime. [place] 00 Takes Medical total of Branch 125mg amitriptyli 2021-1 Yes 1{tbl} 1 tablet Univers ne 100 mg 2-11 at ity of tablet 00:00: bedtime. [place] 00 Takes Medical total of Branch 125mg amitriptyli 2020- Yes 1{tbl} 1 tablet Univers ne 100 mg 2-11 at ity of tablet 00:00: bedtime. [place] Takes Medical total of Branch 125mg amitriptyli 2020-1 Yes 1{tbl} 1 tablet Univers ne 100 mg 2-11 at ity of tablet 00:00: bedtime. [place] Takes Medical total of Branch 125mg amitriptyli 2020-1 Yes 1{tbl} 1 tablet Univers ne 100 mg 2-11 at ity of tablet 00:00: bedtime. [place] Takes Medical total of Branch 125mg amitriptyli 2020- Yes 1{tbl} 1 tablet Univers ne 100 mg 2-11 at ity of tablet 00:00: bedtime. [place] [address] Takes Medical total of Branch 125mg amitriptyli 2020- Yes 1{tbl} 1 tablet Univers ne 100 mg 2-11 at ity of tablet 00:00: bedtime. [place] [address] Takes Medical total of Branch 125mg clopidogreL 2020- Yes 1{tbl} 1 tablet Univers 75 mg 1-23 daily. ity of tablet 00:00: [address] clopidogreL 2020- Yes 1{tbl} 1 tablet Univers 75 mg 1-23 daily. ity of tablet 00:00: [place] [facility] clopidogreL 2020- Yes 1{tbl} 1 tablet Univers 75 mg 1-23 daily. ity of tablet 00:00: [place] [facility] clopidogreL 2021-1 Yes 1{tbl} 1 tablet Univers 75 mg 1-23 daily. ity of tablet 00:00: [place] [facility] clopidogreL 2021-1 Yes 1{tbl} 1 tablet Univers 75 mg 1-23 daily. ity of tablet 00:00: [place] [facility] clopidogreL 2021-1 Yes 1{tbl} 1 tablet Univers 75 mg 1-23 daily. ity of tablet 00:00: [place] [facility] clopidogreL 202-1 Yes 1{tbl} 1 tablet Univers 75 mg 1-23 daily. ity of tablet 00:00: [address] clopidogreL 2021-1 Yes 1{tbl} 1 tablet Univers 75 mg 1-23 daily. ity of tablet 00:00: [place] [facility] clopidogreL 2021- Yes 1{tbl} 1 tablet Univers 75 mg 1-23 daily. ity of tablet 00:00: [place] [facility] clopidogreL 2020- Yes 1{tbl} 1 tablet Univers 75 mg 1-23 daily. ity of tablet 00:00: [place] [facility] clopidogreL 2020- Yes 1{tbl} 1 tablet Univers 75 mg 1-23 daily. ity of tablet 00:00: [place] [facility] clopidogreL 2020- Yes 1{tbl} 1 tablet Univers 75 mg 1-23 daily. ity of tablet 00:00: [place] [facility] clopidogreL 2020- Yes 1{tbl} 1 tablet Univers 75 mg 1-23 daily. ity of tablet 00:00: [place] [facility] clopidogreL 2020- Yes 1{tbl} 1 tablet Univers 75 mg 1-23 daily. ity of tablet 00:00: [place] [facility] clopidogreL 2020- Yes 1{tbl} 1 tablet Univers 75 mg 1-23 daily. ity of tablet 00:00: [place] [facility] clopidogreL 2020- Yes 1{tbl} 1 tablet Univers 75 mg 1-23 daily. ity of tablet 00:00: [place] [facility] clopidogreL 2020- Yes 1{tbl} 1 tablet Univers 75 mg 1-23 daily. ity of tablet 00:00: [place] [facility] clopidogreL 2020- Yes 1{tbl} 1 tablet Univers 75 mg 1-23 daily. ity of tablet 00:00: [place] [facility] clopidogreL 2020- Yes 75mg Take 1 Univ ers 75 mg 1-23 tablet in ity of tablet 00:00: the [place] morning. [facility] Branch clopidogreL 2020-1 Yes 75mg Take 1 Univ ers 75 mg 1-23 tablet in ity of tablet 00:00: the [place] morning. [facility] clopidogreL 2020- Yes 75mg Take 1 Univ ers 75 mg 1-23 tablet in ity of tablet 00:00: the [place] 00 morning. [facility] tiZANidine 2020- Yes 1{tbl} 1 tablet U nivers 2 mg tablet 1-16 at ity of 00:00: bedtime. [address] tiZANidine 2020- Yes 1{tbl} 1 tablet U nivers 2 mg tablet 1-16 at ity of 00:00: bedtime. [address] tiZANidine 2020-02 Yes 1{tbl} 1 tablet U nivers 2 mg tablet 1-16 at ity of 00:00: bedtime. [place] [facility] tiZANidine 2020-02 Yes 1{tbl} 1 tablet U nivers 2 mg tablet 1-16 at ity of 00:00: bedtime. [place] [facility] tiZANidine 2020-02 Yes 1{tbl} 1 tablet U nivers 2 mg tablet 1-16 at ity of 00:00: bedtime. [place] [facility] tiZANidine 2020-02 Yes 1{tbl} 1 tablet U nivers 2 mg tablet 1-16 at ity of 00:00: bedtime. [place] [facility] tiZANidine 2020-02 Yes 1{tbl} 1 tablet U nivers 2 mg tablet 1-16 at ity of 00:00: bedtime. [place] [facility] tiZANidine 2020-02 Yes 1{tbl} 1 tablet U nivers 2 mg tablet 1-16 at ity of 00:00: bedtime. [place] [facility] tiZANidine 2020-02 Yes 1{tbl} 1 tablet U nivers 2 mg tablet 1-16 at ity of 00:00: bedtime. [place] [facility] tiZANidine 2020-02 Yes 1{tbl} 1 tablet U nivers 2 mg tablet 1-16 at ity of 00:00: bedtime. [place] [facility] tiZANidine 2020-02 Yes 1{tbl} 1 tablet U nivers 2 mg tablet 1-16 at ity of 00:00: bedtime. [facility] tiZANidine 2020-02 Yes 1{tbl} 1 tablet U nivers 2 mg tablet 1-16 at ity of 00:00: bedtime. [facility] tiZANidine 2020-02 Yes 1{tbl} 1 tablet U nivers 2 mg tablet 1-16 at ity of 00:00: bedtime. [facility] tiZANidine 2020-02 Yes 1{tbl} 1 tablet U nivers 2 mg tablet 1-16 at ity of 00:00: bedtime. [facility] tiZANidine 2020-02 Yes 1{tbl} 1 tablet U nivers 2 mg tablet 1-16 at ity of 00:00: bedtime. [facility] tiZANidine 2020-02 Yes 1{tbl} 1 tablet U nivers 2 mg tablet 1-16 at ity of 00:00: bedtime. [facility] tiZANidine 2020-02 Yes 1{tbl} 1 tablet U nivers 2 mg tablet 1-16 at ity of 00:00: bedtime. [facility] tiZANidine 2020-02 Yes 1{tbl} 1 tablet U nivers 2 mg tablet 1-16 at ity of 00:00: bedtime. [facility] tiZANidine 2020-02 Yes 1{tbl} 1 tablet U nivers 2 mg tablet 1-16 at ity of 00:00: bedtime. [facility] tiZANidine 2020-02 Yes 1{tbl} 1 tablet U nivers 2 mg tablet 1-16 at ity of 00:00: bedtime. [facility] tiZANidine 2020-02 Yes 1{tbl} 1 tablet U nivers 2 mg tablet 1-16 at ity of 00:00: bedtime. [facility] atorvastati 2020-02 Yes 1{tbl} 1 tablet Univers n 80 mg 1-03 at ity of tablet 00:00: bedtime. [facility] atorvastati 2020-02 Yes 1{tbl} 1 tablet Univers n 80 mg 1-03 at ity of tablet 00:00: bedtime. [facility] atorvastati 2020-02 Yes 1{tbl} 1 tablet Univers n 80 mg 1-03 at ity of tablet 00:00: bedtime. [facility] atorvastati 2020-02 Yes 1{tbl} 1 tablet Univers n 80 mg 1-03 at ity of tablet 00:00: bedtime. [facility] atorvastati 2020-02 Yes 1{tbl} 1 tablet Univers n 80 mg 1-03 at ity of tablet 00:00: bedtime. [facility] atorvastati 2020-02 Yes 1{tbl} 1 tablet Univers n 80 mg 1-03 at ity of tablet 00:00: bedtime. [facility] atorvastati 2020-02 Yes 1{tbl} 1 tablet Univers n 80 mg 1-03 at ity of tablet 00:00: bedtime. [facility] atorvastati 2020-02 Yes 1{tbl} 1 tablet Univers n 80 mg 1-03 at ity of tablet 00:00: bedtime. [facility] atorvastati 2020-02 Yes 1{tbl} 1 tablet Univers n 80 mg 1-03 at ity of tablet 00:00[facility] at[facility]ati 2020-02 Yes 1{tbl} 1 tablet Univers n 80 mg 1-03 at ity of tablet 00:00: bedtime. [facility] atorvastati 2020-02 Yes 1{tbl} 1 tablet Univers n 80 mg 1-03 at ity of tablet 00:00: bedtime. [facility] atorvastati 2020-02 Yes 1{tbl} 1 tablet Univers n 80 mg 1-03 at ity of tablet 00:00: bedtime. [facility] atorvastati 2020-02 Yes 1{tbl} 1 tablet Univers n 80 mg 1-03 at ity of tablet 00:00: bedtime. [facility] atorvastati 2020-02 Yes 1{tbl} 1 tablet Univers n 80 mg 1-03 at ity of tablet 00:00: bedtime. [facility] atorvastati 2020-02 Yes 1{tbl} 1 tablet Univers n 80 mg 1-03 at ity of tablet 00:00: bedtime. [facility] atorvastati 2020-02 Yes 1{tbl} 1 tablet Univers n 80 mg 1-03 at ity of tablet 00:00: bedtime. [facility] atorvastati 2020-02 Yes 1{tbl} 1 tablet Univers n 80 mg 1-03 at ity of tablet 00:00: bedtime. [facility] atorvastati 2020-02 Yes 1{tbl} 1 tablet Univers n 80 mg 1-03 at ity of tablet 00:00: bedtime. [facility] atorvastati 2020-02 Yes 1{tbl} 1 tablet Univers n 80 mg 1-03 at ity of tablet 00:00: bedtime. [facility] atorvastati 2020-02 Yes 1{tbl} 1 tablet Univers n 80 mg 1-03 at ity of tablet 00:00: bedtime. [facility] atorvastati 2020-02 Yes 1{tbl} 1 tablet Univers n 80 mg -03 at ity of tablet 00:00: bedtime. [facility] hydrOXYchlo 2020-0 Yes 200mg Take 200 U nivers roQUINE 200 9-29 mg by ity of mg tablet 00:00: mouth ([facility]) Medical times Branch daily. hydrOXYchlo 2020-0 Yes 200mg Take 200 U nivers roQUINE 200 9-29 mg by ity of mg tablet 00:00: mouth ([facility]) Medical times Branch daily. hydrOXYchlo 2020-0 Yes 200mg Take 200 U nivers roQUINE 200 9-29 mg by ity of mg tablet 00:00: mouth ([facility]) Medical times Branch daily. hydrOXYchlo 2020-0 Yes 200mg Take 200 U nivers roQUINE 200 9-29 mg by ity of mg tablet 00:00: mouth ([facility]) Medical times Branch daily. hydrOXYchlo 2020-0 Yes 200mg Take 200 U nivers roQUINE 200 9-29 mg by ity of mg tablet 00:00: mouth ([facility]) Medical times Branch daily. hydrOXYchlo 2020-0 Yes 200mg Take 200 U nivers roQUINE 200 9-29 mg by ity of mg tablet 00:00: mouth ([facility]) Medical times Branch daily. hydrOXYchlo 2020-0 Yes 200mg Take 200 U nivers roQUINE 200 9-29 mg by ity of mg tablet 00:00: mouth ([facility]) Medical times Branch daily. hydrOXYchlo 2020-0 Yes 200mg Take 200 U nivers roQUINE 200 9-29 mg by ity of mg tablet 00:00: mouth ([facility]) Medical times Branch daily. hydrOXYchlo 2020-0 Yes 200mg Take 200 U nivers roQUINE 200 9-29 mg by ity of mg tablet 00:00: mouth ([facility]) Medical times Branch daily. hydrOXYchlo 2020-0 Yes 200mg Take 200 U nivers roQUINE 200 9-29 mg by ity of mg tablet 00:00: mouth (two) Medical times Branch daily. hydrOXYchlo 2020-0 Yes 200mg Take 200 U nivers roQUINE 200 9-29 mg by ity of mg tablet 00:00: mouth (two) Medical times Branch daily. hydrOXYchlo 2020-0 Yes 200mg Take 200 U nivers roQUINE 200 9-29 mg by ity of mg tablet 00:00: mouth (two) Medical times Branch daily. hydrOXYchlo 2020-0 Yes 200mg Take 200 U nivers roQUINE 200 9-29 mg by ity of mg tablet 00:00: mouth (two) Medical times Branch daily. hydrOXYchlo 2020-0 Yes 200mg Take 200 U nivers roQUINE 200 9-29 mg by ity of mg tablet 00:00: mouth (two) Medical times Branch daily. hydrOXYchlo 2020-0 Yes 200mg Take 200 U nivers roQUINE 200 9-29 mg by ity of mg tablet 00:00: mouth (two) Medical times Branch daily. hydrOXYchlo 2020-0 Yes 200mg Take 200 U nivers roQUINE 200 9-29 mg by ity of mg tablet 00:00: mouth (two) Medical times Branch daily. hydrOXYchlo 2020-0 Yes 200mg Take 200 U nivers roQUINE 200 9-29 mg by ity of mg tablet 00:00: mouth (two) Medical times Branch daily. hydrOXYchlo 2020-0 Yes 200mg Take 200 U nivers roQUINE 200 9-29 mg by ity of mg tablet 00:00: mouth (two) Medical times Branch daily. hydrOXYchlo 2020-0 Yes 200mg Take 200 U nivers roQUINE 200 9-29 mg by ity of mg tablet 00:00: mouth (two) Medical times Branch daily. hydrOXYchlo 2020-0 Yes 200mg Take 200 U nivers roQUINE 200 9-29 mg by ity of mg tablet 00:00: mouth (two) Medical times Branch daily. hydrOXYchlo 2020-0 Yes 200mg Take 200 U nivers roQUINE 200 9-29 mg by ity of mg tablet 00:00: mouth (two) Medical times Branch daily. Immunizations Ordered Filled Immunization Date Status Comments [facility] e Immunization Name Name Influenza Virus [...] y of Vaccine Quad .5 mL 00:00:00 [facility] 6+ MO [facility] Influenza Virus [...] y of Vaccine Quad .5 mL 00:00:00 [facility] 6+ MO Branch Influenza Virus [...] Vaccine Quad .5 mL 00:00:00 [facility] IM 6+ MO Branch Influenza Virus 2018-01-24 Completed Universit y of Vaccine Quad .5 mL 00:00:00 [facility] 6+ MO Branch Influenza Virus 2018-01-24 Completed Universit y of Vaccine Quad .5 mL 00:00:00 [facility] IM 6+ MO Branch Influenza Virus 2018-01-24 Completed Universit y of Vaccine Quad .5 mL 00:00:[address] [facility] 6+ MO Branch TDAP 2013-02-07 Completed University of 00:00:00 [facility] TDAP 2013-02-07 Completed University of 00:00:00 [facility] TDAP 2013-02-07 Completed University of 00:00:00 [facility] TDAP 2013-02-07 Completed University of 00:00:00 [facility] TDAP 2013-02-07 Completed University of 00:00:00 [facility] TDAP 2013-02-07 Completed University of 00:00:00 [facility] TDAP 2013-02-07 Completed University of 00:00:00 [facility] TDAP 2013-02-07 Completed University of 00:00:00 [facility] TDAP 2013-02-07 Completed University of 00:00:00 [facility] TDAP 2013-02-07 Completed University of 00:00:00 [facility] TDAP 2013-02-07 Completed University of 00:00:00 [facility] TDAP 2013-02-07 Completed University of 00:00:00 [facility] TDAP 2013-02-07 Completed University of 00:00:00 [facility] TDAP 2013-02-07 Completed University of 00:00:00 [facility] TDAP 2013-02-07 Completed University of 00:00:00 [facility] TDAP 2013-02-07 Completed University of 00:00:00 [facility] TDAP 2013-02-07 Completed University of 00:00:00 [facility] TDAP 2013-02-07 Completed University of 00:00:00 [facility] TDAP 2013-02-07 Completed University of 00:00:00 [facility] TDAP 2013-02-07 Completed University of 00:00:00 [facility] TDAP 2013-02-07 Completed University of 00:00:00 [facility] Pneumococcal 2012-02-22 Completed University o f Polysaccharide, [...] 2012-02-22 Completed University o f Polysaccharide, 00:00:00 [facility] PPSV23 (PNEUMOVAX) Branch Pneumococcal 2012-02-22 Completed University o f Polysaccharide, 00:00:00 [facility] PPSV23 (PNEUMOVAX) Branch Pneumococcal 2012-02-22 Completed University o f Polysaccharide, 00:00:00 [facility] PPSV23 (PNEUMOVAX) Branch Pneumococcal 2012-02-22 Completed University o f Polysaccharide, 00:00:00 [facility] ical PPSV23 (PNEUMOVAX) Branch Influenza Virus 2010-11-07 Completed Universit y of Vaccine (3+ yrs) 00:00:00 [facility] Influenza Virus 2010-11-07 Completed Universit y of Vaccine (3+ yrs) 00:00:00 [facility] Influenza Virus 2010-11-07 Completed Universit y of Vaccine (3+ yrs) 00:00:00 [facility] Influenza Virus 2010-11-07 Completed Universit y of Vaccine (3+ yrs) 00:00:00 [facility] Influenza Virus 2010-11-07 Completed Universit y of Vaccine (3+ yrs) 00:00:00 [facility] Influenza Virus 2010-11-07 Completed Universit y of Vaccine (3+ yrs) 00:00:00 [facility] Influenza Virus 2010-11-07 Completed Universit y of Vaccine (3+ yrs) 00:00:00 [facility] Influenza Virus 2010-11-07 Completed Universit y of Vaccine (3+ yrs) 00:00:00 [facility] Influenza Virus 2010-11-07 Completed Universit y of Vaccine (3+ yrs) 00:00:00 [facility] Influenza Virus 2010-11-07 Completed Universit y of Vaccine (3+ yrs) 00:00:00 [facility] Influenza Virus 2010-11-07 Completed Universit y of Vaccine (3+ yrs) 00:00:00 [facility] Influenza Virus 2010-11-07 Completed Universit y of Vaccine (3+ yrs) 00:00:00 [facility] Influenza Virus 2010-11-07 Completed Universit y of Vaccine (3+ yrs) 00:00:00 [facility] Influenza Virus 2010-11-07 Completed Universit y of Vaccine (3+ yrs) 00:00:00 [facility] Influenza Virus 2010-11-07 Completed Universit y of Vaccine (3+ yrs) 00:00:00 [facility] Influenza Virus 2010-11-07 Completed Universit y of Vaccine (3+ yrs) 00:00:00 [facility] Influenza Virus 2010-11-07 Completed Universit y of Vaccine (3+ yrs) 00:00:00 [facility] Influenza Virus 2010-11-07 Completed Universit y of Vaccine (3+ yrs) 00:00:00 [facility] Influenza Virus 2010-11-07 Completed Universit y of Vaccine (3+ yrs) 00:00:00 [facility] Influenza Virus 2010-11-07 Completed Universit y of Vaccine (3+ yrs) 00:00:00 [facility] Influenza Virus 2010-11-07 Completed Universit y of Vaccine (3+ yrs) 00:00:00 [facility] Pneumococcal 2006-11-14 Completed University o f Polysaccharide, [...] Time Observation Value Comments Source Systolic blood 2022-02-11 17:42:00 133 mm[Hg] Univer sity of pressure [facility] Diastolic blood 2022-02-11 17:42:00 68 mm[Hg] Unive rsity of pressure [facility] Heart rate 2022-02-11 17:42:00 60 /min [facility] Body height 2022-02-11 17:42:00 175.3 cm [facility] Body weight 2022-02-11 17:42:00 92.625 kg [facility] BMI 2022-02-11 17:42:00 30.16 kg/m2 [facility] Oxygen saturation in 2022-02-11 17:42:00 97 /min University of Arterial blood by [place] [facility] Pulse oximetry Branch Systolic blood 2022-02-09 18:02:00 131 mm[Hg] Univer sity of pressure [facility] Diastolic blood 2022-02-09 18:02:00 71 mm[Hg] Unive rsity of pressure [facility] Heart rate 2022-02-09 18:02:00 66 /min Universi ty of [facility] Body temperature 2022-02-09 18:02:00 36.5 Andreina Univ ersity of [facility] Respiratory rate 2022-02-09 18:02:00 16 /min Univ ersity of [facility] Body height 2022-02-09 18:02:00 175.3 cm Universi ty [facility] Body weight 2022-02-09 18:02:00 92.08 kg [facility]i ty [facility] BMI 2022-02-09 18:02:00 29.98 kg/m2 [facility] ty [facility] Oxygen saturation in 2022-02-09 18:02:00 95 /min University of Arterial blood by [facility] Pulse oximetry Branch Systolic blood 2021-12-31 19:06:00 128 mm[Hg] Univer sity of pressure [facility] Diastolic blood 2021-12-31 19:06:00 66 mm[Hg] Unive rsity of pressure [facility] Heart rate 2021-12-31 19:06:00 81 /min Universi ty [facility] Body temperature 2021-12-31 19:06:00 36.28 Andreina Univ ersity of [facility] Respiratory rate 2021-12-31 19:06:00 18 /min Univ ersity of [facility] Oxygen saturation in 2021-12-31 19:06:00 98 /min University of Arterial blood by [facility] Pulse oximetry Branch Body height 2021-12-29 00:08:00 175.3 cm [facility]i ty [facility] Body weight 2021-12-29 00:08:00 94.7 kg [facility]i [facility] BMI 2021-12-29 00:08:00 30.83 kg/m2 [facility] Systolic blood 2021-12-28 11:15:00 159 mm[Hg] Univer sity of pressure [facility] Diastolic blood 2021-12-28 11:15:00 86 mm[Hg] Unive rsity of pressure [facility] Heart rate 2021-12-28 11:15:00 80 /min [facility]i ty [facility] Body temperature 2021-12-28 11:15:00 36.33 Andreina Univ ersity of [facility] Respiratory rate 2021-12-28 11:15:00 16 /min Univ ersity of [facility] Body height 2021-12-28 11:15:00 175.3 cm [facility] Body weight 2021-12-28 11:15:00 94.7 kg [facility] BMI 2021-12-28 11:15:00 30.83 kg/m2 [facility] Systolic blood 2021-10-27 20:05:00 148 mm[Hg] Univer sity of pressure [facility] Diastolic blood 2021-10-27 20:05:00 86 mm[Hg] Unive rsity of pressure [facility] Heart rate 2021-10-27 20:05:00 66 /min [facility]i [facility] Body temperature 2021-10-27 20:05:00 36.44 Andreina Univ ersity of [facility] Respiratory rate 2021-10-27 20:05:00 16 /min Univ ersity of [facility] Body height 2021-10-27 20:05:00 175.3 cm [facility] Body weight 2021-10-27 20:05:00 94.802 kg [facility] BMI 2021-10-27 20:05:00 30.86 kg/m2 [facility] Oxygen saturation in 2021-10-27 20:05:00 96 /min University Arterial blood by [facility] Pulse oximetry Branch Systolic blood 2021-09-29 19:58:00 136 mm[Hg] Univer sity of pressure [facility] Diastolic blood 2021-09-29 19:58:00 75 mm[Hg] Unive rsity of pressure [facility] Heart rate 2021-09-29 19:58:00 72 /min [facility]i ty [facility] Respiratory rate 2021-09-29 19:58:00 18 /min Univ ersity of [facility] Body height 2021-09-29 19:58:00 175.3 cm [facility] Body weight 2021-09-29 19:58:00 95.165 kg [facility] BMI 2021-09-29 19:58:00 30.98 kg/m2 [facility] Oxygen saturation in 2021-09-29 19:58:00 97 /min University Arterial blood by [facility] Pulse oximetry Branch Procedures Procedure Date / Time Performing Clinician Source Performed ASSIGNMENT OF BENEFITS 2022-02-09 16:56:29 Doctor Unassigned, [facility] [place] [facility] COVID-19 (ID NOW RAPID 2021-12-30 23:26:00 Gail Herrera [facility] TESTING) [facility] LAB ONLY COVID 2021-12-30 23:26:00 Gail Herrera [facility] INTERPRETATION [facility] XR CHEST 1 2021-12-30 16:29:00 Matilde Prather [facility] CREATININE 2021-12-30 00:42:00 Gail Herrera [facility] XR CHEST 1 2021-12-29 14:02:00 Luz [facility] XR CHEST 1 2021-12-29 14:02:00 Luz [facility] INTUBATION 2021-12-28 13:26:00 Corinne [facility] LAPAROSCOPIC ASSISTED 2021-12-28 12:54:00 Dagoberto Shaw [facility] ROBOTIC ABDOMINAL WALL [facility] RECONSTRUCTION LAPAROSCOPIC ASSISTED 2021-12-28 12:54:00 Dagoberto Shaw [facility] ROBOTIC ABDOMINAL WALL Medical [facility] RECONSTRUCTION [facility] SURGERY [facility] 2021-12-28 06:01:00 Doctor Unamarisol, [facility] [place] [facility] DISCLOSURE AND CONSENT, 2021-10-27 05:01:00 Doctor Unassigned, [facility] MEDICAL AND SURGICAL [place] [facility] PROCEDURES Encounters Start End Encounter Admission Attending Care Care Encounter Source Date/Time Date/Time Type Type Clinicians Facility Department ID 2021-02-13 Outpatient R [facility] AMARI [id number] Univers 11:35:03 ity of [facility] 2020-12-08 Emergency [facility] [id number] Univers 19:25:54 ity of [facility] 2020-12-08 Emergency [facility] [id number] Univers 13:57:37 ity of [facility] 2020-12-08 Emergency [facility] [id number] Univers 04:00:00 ity of [facility] 2020-12-07 Emergency X [facility] AMARI [id number] Univers 10:52:27 ity of [facility] 2020-12-07 Emergency [facility] [id number] Univers 10:51:36 ity of [facility] 2020-12-07 Emergency [facility] [id number] Univers 05:39:59 ity of [facility] 2020-12-06 Emergency [facility] [id number] Univers 07:40:04 ity of [facility] 2020-12-05 Emergency [facility] [id number] Univers 20:55:47 ity of [facility] 2020-12-05 Emergency [facility] [id number] Univers 20:13:24 ity of [facility] 2020-12-05 Emergency [facility] [id number] Univers 19:07:25 ity of [facility] 2020-12-05 Emergency [facility] [id number] Univers 18:41:54 ity of [facility] 2022 2022 Outpatient R PING [facility] [id number] Univers 10:20:00 10:20:00 EDIL ity of [facility] 2022-06-03 2022-06-03 Outpatient R JOSEPH [facility] [id number] Univers 09:30:00 09:30:00 LUDMILA ity of [facility] 2022-06-01 2022-06-01 Outpatient R KRISTI GUZMAN [facility] [id number] Univers 11:15:00 11:15:00 KRISTI GUZMAN ity of [facility] 2022-05-27 2022-05-27 Telephone Ping [facility] [id number] Univers 00:00:00 00:00:00 Edil AHOSKIE [id number] i ty [id number] [id number] [place] dicailyn NAL 059 [facility] 2022-05-20 2022-05-20 [id number] Univers 09:59:03 23:59:00 EDIL itUT [facility] 2022-05-18 2022-05-18 Telephone [facility] [id number] Univers 00:00:00 00:00:00 [facility] [id number] i ty of [facility] [id number] Mehdi as JALEEL?BLEA [phone] Ga doug WOLF 092 [facility] OFFICE [facility] 2022-05-17 2022-05-17 Telephone [facility] [id number] Univers 00:00:00 00:00:00 [facility] [id number] ity [facility] [id number] [id number] Ga doug NAL [address] [place] [address] 2022-05-13 2022-05-13 Outpatient [facility] [id number] Univers 10:00:00 10:00:00 [facility] 2022-04-08 2022-04-08 Outpatient [facility] [id number] Univers 10:00:00 10:13:27 [facility] 2022-04-06 2022-04-06 Outpatient Raya RUIZ [facility] [id number] Univers 13:30:00 13:30:00 [facility] 2022-02-11 2022-02-11 [facility] [id number] Univers 10:20:00 23:59:00 [facility] 2022-02-11 2022-02-11 Office [facility] [id number] Univers 11:20:00 11:40:00 Visit Edil AHOSKIE [id number] i ty [id number] [id number] Ga dical NAL 059 [facility] 2022-02-09 2022-02-09 Outpatient R DAGOBERTO SHAW [facility] [id number] Univers 11:30:00 12:15:22 ity of [facility] 2022-02-09 2022-02-09 Office Dagoberto Shaw SCM[facility]AR[facility] [id number] Univers 11:30:00 12:15:22 Visit HEALTH [id number] [id number] [id number] [address] OFFICE BUILDING 2022-02-09 2022-02-09 Orders Doctor SUNIL [id number] Univers 00:00:00 00:00:00 Only Unassigned, EDUARDO [id number] ity of [place] [facility] [id number] Mehdi as [id number] [address] 2022-01-26 2022-01-26 Outpatient R DAGOBERTO SHAW [facility] [id number] Univers 16:00:00 16:00:00 ity of [facility] 2022-01-19 2022-01-19 Telephone Dagoberto Shaw [facility] [id number] Univers 00:00:00 00:00:00 HEALTH [id number] [id number] [id number] [address] OFFICE BUILDING 2022-01-12 2022-01-12 Telephone Dagoberto Shaw [facility] [id number] Univers 00:00:00 00:00:00 HEALTH [id number] [id number] [id number] [address] OFFICE BUILDING 2022-01-07 2022-01-07 Outpatient R PING [facility] [id number] Univers 09:40:00 09:40:[address] [facility] 2021-12-28 2021-12-31 Outpatient R DAGOBERTO SHAW [facility] AMARI [id number] Univers 05:11:00 16:54:00 ity of [facility] 2021-12-28 2021-12-31 Hospital Dagoberto Shaw [id number] Univers 05:11:00 16:54:00 Encounter EDUARDO [id number] ity of [facility] [id number] Mehdi as [id number] [facility] 092 Branch 2021-12-28 2021-12-28 Anesthesia [facility] [id number] Univers 07:20:00 13:02:00 Event Marco A PeraltaY 350.1. 13.10 ity of [place] [id number] Mehdi as [id number] [facility] 103 Branch 2021-12-28 2021-12-28 Surgery Dagoberto ShawNIE [id number] Univers 06:50:00 11:07:00 EDUARDO [id number] it y of [facility] [id number] Mehdi as [id number] [facility] 103 Branch 2021-12-28 2021-12-28 Orders Doctor SUNIL [id number] Univers 00:00:00 00:00:00 Only Unassigned, EDUARDO [id number] ity of [place] [facility] [id number] Mehdi as [phone] [facility] [address] 2021-12-25 2021-12-25 Outpatient Raya FENG [facility] [id number] Univers 00:00:00 00:00:00 EDIL ity of [facility] 2021-12-25 2021-12-25 Telephone ColinDagoberto [facility] 1.2.840.114 [id number] Univers 00:00:00 00:00:00 HEALTH 350.1.13.10 it y of [place] 4.2.7.2.686 [place] [facility] [id number] [facility] [address] OFFICE BUILDING 2021-12-24 2021-12-24 Outpatient Raya FENG [facility] [id number] Univers 13:35:11 23:59:[address] [facility] 2021-12-24 2021-12-24 Hospital VERNON Feng 1.2.840.114 [id number] Univers 13:30:00 23:59:00 Encounter Edil EDUARDO 350.1.13.10 ity of HOSPITAL 4.2.7.2.686 Mehdi as [phone] [place] [id number] [place] 2021-12-24 2021-12-24 Telephone Dagoberto Shaw [facility] 1.2.840.114 [id number] Univers 00:00:00 00:00:00 HEALTH 350.1.13.10 it y of [place] [phone] [address] OFFICE BUILDING 2021-12-04 2021-12-04 Outpatient R PING [facility] [id number] Univers 10:20:00 10:20:[address] [facility] 2021-10-27 2021-10-27 Office Dagoberto Shaw [facility] 1.2.840.114 [id number] Univers 15:00:00 15:15:00 Visit HEALTH 350.1.13.10 it y [place] [id number] [address] OFFICE BUILDING 2021-10-27 2021-10-27 Outpatient R DAGOBERTO SHAW [facility] [id number] Univers 15:00:00 15:00:00 ity of [facility] 2021-10-27 2021-10-27 Orders Doctor BARBER 1.2.840.114 [id number] Univers 00:00:00 00:00:00 Only Unassigned, EDUARDO 350.1.13.10 ity of [place] [facility] 4.2.7.2.686 Mehdi as [phone] [facility] [address] 2021-10-05 2021-10-05 Outpatient R PRISCILLA [facility] [id number] Univers 09:15:00 09:15:[address] [facility] 2021-10-02 2021-10-02 Outpatient R PING [facility] [id number] Univers 15:00:00 15:00:[address] [facility] 2021-09-29 2021-09-29 [facility] 1.2.840.114 [id number] Univers 14:45:00 15:00:00 Visit [facility] 350.1.13.10 it y of CANCER 4.2.7.2.686 [facility] - [phone] [facility] [address] [place] 2021-09-29 2021-09-29 Out[facility] [id number] Univers 14:45:00 14:45:[address] [facility] 2021-09-29 2021-09-29 Outpatient R [facility] [id number] Univers 09:15:00 09:15:00 BRENT [facility] 2021-09-28 2021-09-28 Telephone [facility] 1.2.525.326 [id number] Univers 00:00:00 00:00:00 [facility] 350.1.13.10 it y of [place] 4.2.7.2.686 [facility] - [phone] [address] 2021-09-25 2021-09-25 Outpatient [facility] [id number] Univers 10:40:00 10:40:00 EDIL [facility] 2021-09-25 2021-09-25 Outpatient [facility] [id number] Univers 10:40:00 10:40:00 [facility] 2021-09-19 2021-09-19 Patient Doctor SUNIL 1.2.840.114 [id number] Univers 00:00:00 00:00:00 Secure Msg Unassigned, EDUARDO 350.1.13.10 ity of [place] [facility] 4.2.7.2.686 [facility] [id number] [address] 2021-09-17 2021-09-17 [address] [facility] [id number] Univers 11:39:36 23:59:00 CHARLOTTE goss o f [facility] 2021-09-17 2021-09-17 [facility] 1.2.840.114 [id number] Univers 11:39:36 23:59:00 Encounter Charlotte ROTHMAN 350.1.13.10 ity [place] [phone] [address] 2021-09-14 2021-09-14 Outpatient R [facility] [id number] Univers 08:30:00 09:03:05 [place]LOTTE kim [facility] 2021-09-14 2021-09-14 Office [facility] 1.2.840.114 [id number] Univers 08:30:00 09:03:05 Visit Charlotte ROTHMAN 350.1.13.10 ity [facility] [place].2.7.2.686 [place] [phone] Ga dical NAL 204 [facility] 2021-08-12 2021-08-12 Outpatient R [facility] [id number] Univers 10:30:00 10:30:00 CHARL[place]TE kim [facility] 2021-07-29 2021-07-29 Outpatient R [facility] [id number] Univers 09:30:00 09:30:00 [place] kim [facility] 2021-07-20 2021-07-20 Outpatient Raya [facility] [id number] Univers 09:30:00 09:30:00 [place] kim [facility] 2021-07-03 2021-07-03 Office [facility] 1.2.840.114 [id number] Univers 09:00:00 09:24:03 Visit Edil ROTHMAN 350.1.13.10 i ty of [place].2.[place] [phone] Ga dical NAL 059 [facility] 2021-07-03 2021-07-03 Outpatient Raya [facility] [id number] Univers 09:00:00 09:24:03 EDIL ity of [facility] 2021-07-03 2021-07-03 Outpatient Raya [facility] [id number] Univers 09:00:00 09:00:[address] [facility] 2021-06-30 2021-06-30 Outpatient R JOSEPH [facility] [id number] Univers 15:30:00 15:30:[address] [facility] 2021-06-26 2021-06-26 Outpatient R PING [facility] [id number] Univers 10:00:00 10:00:[address] [facility] 2021-06-26 2021-06-26 Outpatient R PING [facility] [id number] Univers 10:00:00 10:00:[address] [facility] 2021-06-26 2021-06-26 Outpatient R PING [facility] [id number] Univers 10:00:00 10:00:00 [facility] 2021-05-29 2021-05-29 Orders Doctor SUNIL 1.2.840.114 [id number] Univers 00:00:00 00:00:00 Only Unassigned, EDUARDO 350.1.13.10 [facility] 4.2.7.2.686 Mehdi as [phone] [facility] [address] 2021-05-20 2021-05-20 Transition AMY Ramsay 1.2.840.114 [id number] Univers 00:00:00 00:00:00 of Care Arina YANCEYY 350.1.13.10 it y of [place].2.7.2.686 [place] [id number] [facility] [address] 2021-05-19 2021-05-19 Outpatient R JOSEPH, [facility] [id number] Univers 16:30:00 16:30:[address] [facility] 2021-05-14 2021-05-19 Outpatient X MAMI [facility] AMBER [id number] Univers 17:03:00 15:35:[address] [facility] 2021-05-14 2021-05-19 Emergency Noel Richmond [facility] 1.2.840. 114 [id number] Univers 17:03:00 15:35:00 Tom Lopez 350.1.13.10 ity of [place] 4.2.7.2.686 [facility] [phone] [facility] [address] 2021-05-12 2021-05-12 Outpatient Raya RUIZ [facility] [id number] Univers 16:15:00 16:15:[address] [facility] 2021-05-11 2021-05-11 [facility] 1.2.840.114 [id number] Univers 00:00:00 00:00:00 Franklyn [facility]OTH[facility].1.13.[facility] 4.2.7.2.[place] [id number] Ga dical [facility] 092 [facility] 2021-05-08 2021-05-08 Outpatient Raya [facility] [id number] Univers 11:00:00 11:00:[address] [facility] 2021-05-08 2021-05-08 SHARAD Jasso 1.2.840.114 [id number] Univers 00:00:00 00:00:00 [facility] 350.1.13.10 i ty of [facility] 4.2.7.2.686 [place] [phone] [facility] [address] 2021-04-22 2021-04-30 Inpatient Raya RUIZ [facility] AMARI [id number] Univers 07:01:00 17:49:[address] [facility] 2021-04-22 2021-04-30 [facility] VERNON Ruiz 1.2.840.114 [id number] Univers 07:01:00 17:49:00 Encounter Ludmila CLARK 350.1.13.10 ity of [facility] 4.2.7.2.686 Mehdi as [phone] [facility] [address] 2021-04-22 2021-04-22 Anesthesia Alta Ma 1.2.8 40.114 [id number] Univers 10:03:00 16:40:00 Event Jamey Bai 350.1.13.1 0 ity [facility] 4.2.7.2.686 Mehdi as [id number] [facility] [address] 2021-04-22 2021-04-22 Surgery VERNON Ruiz 1.2.840.114 [id number] Univers 09:00:00 15:30:00 Ludmila CLARK 350.1.13.10 it y of HOSPITAL 4.2.7.2.686 Mehdi as [phone] [facility] [address] 2021-04-22 2021-04-22 Orders Doctor SUNIL 1.2.840.114 [id number] Univers 00:00:00 00:00:00 Only Unassigned, EDUARDO 350.1.13.10 ity of [place] [facility] 4.2.7.2.686 Mehdi as [id number] [facility] [address] 2021-04-15 2021-04-15 Out[facility] G[facility] [id number] Univers 08:43:00 11:49:00 SHAISTA ity of [facility] 2021-04-15 2021-04-15 [facility] 1.2.840.114 [id number] Univers 08:43:00 11:49:00 Encounter Shaista ICAL 350.1.13.10 ity of SCIENCES 4.2.7.2.686 Mehdi as BLDG [phone] [facility] [address] 2021-04-15 2021-04-15 Surgery [facility] 1.2.840.114 [id number] Univers 09:45:00 10:15:00 Shaista ICAL 350.1.13.10 it y of SCIENCES 4.2.7.2.686 Mehdi as BLDG [phone] [facility] [address] 2021-04-15 2021-04-15 Orders Doctor SUNIL 1.2.840.114 [id number] Univers 00:00:00 00:00:00 Only Unassigned, EDUARDO 350.1.13.10 ity of [place] [facility] 4.2.7.2.686 Mehdi as [phone] [facility] [address] 2021-04-13 2021-04-13 Laboratory Only, Adc Test [facility] 1.2.840. 114 [id number] Univers 13:00:00 13:15:00 Only Ludmila Ruiz 350.1.13.10 ity of Shaista Wyman 4.2.7.2.686 [facility] [id number] [facility] [address] [place] 2021-04-13 2021-04-13 Outpatient R ZAMZAM [facility] [id number] Univers 13:00:00 13:00:[address] [facility] 2021-04-06 2021-04-06 [place] [facility] 1.2.189.319 [id number] Univers 00:00:00 00:00:00 [facility] 350.1.13.10 it y of CANCER 4.2.7.2.686 [facility] - [phone] Med ical [facility] [address] [place] 2021-03-20 2021-03-20 Outpatient Raya RUIZ [facility] [id number] Univers 11:45:00 13:07:[address] [facility] 2021-03-20 2021-03-20 Outpatient Raya RUIZ [facility] [id number] Univers 11:45:00 13:07:24 LUDMILA [facility] 2021-03-20 2021-03-20 Office [facility] 1.2.840.114 [id number] Univers 08:00:00 09:14:53 Visit Edil ROTHMAN 350.1.13.10 i ty [facility] 4.2.7.2.686 [facility] [phone] Ga dical [facility] 059 [facility] 2021-03-18 2021-03-18 Outpatient Raya RUIZ [facility] [id number] Univers 09:06:05 23:59:[address] [facility] 2021-03-18 2021-03-18 Outpatient Raya RUIZ [facility] [id number] Univers 09:06:05 23:59:[address] [facility] 2021-03-18 2021-03-18 [facility] 1.2.840.114 [id number] Univers 09:00:00 23:59:00 Encounter Ludmila ROTHMAN 350.1.13.10 ity of [facility] 4.2.7.2.686 [facility] [phone] [facility] [address] 2021-03-05 2021-03-05 Emergency X Milena DASILVA [facility] ERT [id number] Univers 17:38:00 22:52:00 ity of [facility] 2021-03-05 2021-03-05 Emergency Milena Dasilva [facility] 1.2.840.114 [id number] Univers 17:38:00 22:52:00 No ANAEMELY 350.1.13.10 i ty of [place].2.7.2.686 [place] NEV[place] [phone] [facility] [address] 2021-02-24 2021-02-24 Telephone DELANEY RuizKHAI 1.2.840.114 [id number] Univers 00:00:00 00:00:00 [facility] 350.1.13.10 i ty of [facility] 4.2.7.2.686 [place] [id number] [facility] [address] 2021-02-19 2021-02-19 Transition AMY Ramsay 1.2.840.114 [id number] Univers 00:00:00 00:00:00 of Care Arina YANCEYY 350.1.13.10 it y of [place]2.7.2.686 [place] [id number] [facility] [address] 2021-02-14 2021-02-18 [facility] Maryan Rojas 1.2.8 40.114 [id number] Univers 17:09:00 16:05:00 Encounter Kylee Delarosa 350.1.13 .10 ity of [facility] 4.2.7.2.686 [place] [id number] [facility] [address] 2021-02-16 2021-02-16 Anesthesia Adina [facility] 1.2.840.114 [id number] Univers 09:27:00 10:27:00 Event Radha MORA 350.1.13.10 i ty of SCIENCES 4.2.7.2.686 Mehdi as BLDG [id number] [facility] [address] 2021-02-16 2021-02-16 Surgery Haritha [facility] 1.2.699.232 [id number] Univers 07:48:00 08:50:00 Neil-Jillian ICAL 350.1.13.10 ity of SCIENCES 4.2.7.2.686 Mehdi as BLDG [id number] [facility] [address] 2021-02-13 2021-02-13 Office SHARAD Ruiz 1.2.335.109 [id number] Univers 10:45:00 11:00:00 Visit [facility] 350.1.13.10 i ty of CLINICS 4.2.7.2.[place] [phone] [facility] [address] 2021-02-13 2021-02-13 Outpatient R JOSEPH [facility] [id number] Univers 10:45:00 10:45:00 LUDMILA [facility] 2021-02-13 2021-02-13 Outpatient Raya [facility] AMBER [id number] Univers 10:45:00 10:45:00 LUDMILA [facility] 2021-02-13 2021-02-13 Outpatient R JOSEPH [facility] GLAD[facility] [id number] Univers 10:45:00 10:45:00 [facility] 2021-02-03 2021-02-03 Dano [facility] 1.2.840.114 [id number] Univers 00:00:00 00:00:00 Franklyn ROTHMAN 350.1.13.10 ity of [place].7.2.[place] [phone] [facility] 092 [facility] 2020-12-24 2020-12-24 Outpatient Raya WILDER [facility] [id number] Univers 14:00:00 15:03:[address] [facility] 2020-12-24 2020-12-24 Outpatient Raya WILDER [facility] [id number] Univers 14:00:00 15:03:38 BALDEMAR [facility] 2020-12-24 2020-12-24 Office [facility] 1.2.840.114 [id number] Univers 13:41:26 15:03:38 Visit Baldemar LEHMAN 350.1.13.10 ity of [place] 4.2.7.2.686 [place] [facility] [id number] [facility] [address] [facility] 2020-12-23 2020-12-23 Orders Doctor SUNIL 1.2.840.114 [id number] Univers 00:00:00 00:00:00 Only Unassigned, EDUARDO 350.1.13.10 ity of [place] [facility] 4.2.7.2.686 Mehdi as [phone] [facility] [address] 2020-12-12 2020-12-12 Outpatient R JOSEPH [facility] [id number] Univers 11:45:00 11:45:00 [facility] 2020-12-12 2020-12-12 Outpatient R JOSEPH [facility] [id number] Univers 11:45:00 11:45:00 [facility] 2020-12-12 2020-12-12 Outpatient R JOSEPH [facility] [id number] Univers 11:45:00 11:45:00 [facility] 2020-12-12 2020-12-12 Outpatient R JOSEPH [facility] [id number] Univers 11:45:00 11:45:00 [facility] 2020-12-12 2020-12-12 Outpatient R JOSEPH [facility] [id number] Univers 11:45:00 11:45:00 [facility] 2020-12-12 2020-12-12 Office SHARAD Ruiz 1.2.225.414 [id number] Univers 11:13:07 11:28:07 Visit [facility] 350.1.13.10 i ty of CL[place] 4.2.7.2.[place] [phone] [facility] [address] 2020-12-09 2020-12-09 Office Ping SCMACARIO 1.2.840.114 [id number] Univers 11:21:50 11:39:47 Visit Ediljasmeet [facility] 350.1.13.10 i ty of [place] 4.2.7.2.686 [place] [facility] [phone] [facility] 0[address] [facility] 2020-12-09 2020-12-09 Outpatient R PING [facility] [id number] Univers 11:00:00 11:39:[address] [facility] 2020-12-09 2020-12-09 Outpatient Raya FENG [facility] [id number] Univers 11:00:00 11:39:47 [facility] 2020-12-09 2020-12-09 Orders Doctor SUNIL 1.2.840.114 [id number] Univers 00:00:00 00:00:00 Only Unassigned, EDUARDO 350.1.13.10 ity of [facility] 4.2.7.2.686 Mehdi as [phone] [address] 2020-12-05 2020-12-05 Outpatient Raya RUIZ [facility] [id number] Univers 11:30:00 11:30:[address] [facility] 2020-12-05 2020-12-05 Outpatient Raya RUIZ [facility] [id number] Univers 11:30:00 11:30:00 [facility] 2020-12-03 2020-12-03 Telephone SHARAD Arenas 1.2.840.114 [id number] Univers 00:00:00 00:00:00 Ilana Y HEALTH 350.1.13.10 i ty of [facility] 4.2.7.2.686 [place] a [phone] [address] 2020-11-28 2020-11-28 Outpatient Raya RUIZ [facility] [id number] Univers 11:00:00 11:00:00 [facility] 2020-11-28 2020-11-28 Outpatient Raya RUIZ [facility] [id number] Univers 11:00:00 11:00:00 [facility] 2020-11-28 2020-11-28 Telephone Cari [facility] 1.2.938.772 [id number] Univers 00:00:00 00:00:00 Ilana [facility] 350.1.13.10 it y of [facility] 4.2.7.2.686 [place] a Lord [phone] [address] Office Building 2020-11-25 2020-11-25 Outpatient R COLINDAGOBERTO [facility] [id number] Univers 15:45:00 16:38:41 ity of [facility] 2020-11-25 2020-11-25 Office Dagoberto Shaw [facility] 1.2.840.114 [id number] Univers 15:36:34 16:38:41 Visit Health 350.1.13.10 it y of [place].2.[place] [id number] [address] Office Building 2020-11-25 2020-11-25 Outpatient R COLINDAGOBERTO [facility] [id number] Univers 15:45:00 15:45:00 ity of [facility] 2020-11-25 2020-11-25 Orders Doctor SUNIL 1.2.840.114 [id number] Univers 00:00:00 00:00:00 Only Unassigned, EDUARDO 350.1.13.10 ity of [place] [facility] 4.2.7.2.686 Mehdi as [phone] [address] 2020-11-25 2020-11-25 Orders Doctor SUNIL 1.2.840.114 [id number] Univers 00:00:00 00:00:00 Only Unassigned, EDUARDO 350.1.13.10 ity of [place] [facility] 4.2.7.2.686 Mehdi as [id number] [address] 2020-11-24 2020-11-24 Telephone Cari [facility] 1.2.606.117 [id number] Univers 00:00:00 00:00:00 Ilana Health 350.1.13.10 it y of [place] 4.2.7.2.686 [place] a Lord [phone] [address] Office Building 2020-11-11 2020-11-11 Outpatient R DAGOBERTO SHAW [facility] [id number] Univers 11:30:00 11:30:00 ity of [facility] 2020-11-11 2020-11-11 Outpatient R DAGOBERTO SHAW [facility] [id number] Univers 11:30:00 11:30:00 ity of [facility] 2020-11-07 2020-11-07 Orders Doctor SUNIL 1.2.840.114 [id number] Univers 00:00:00 00:00:00 Only Unassigned, EDUARDO 350.1.13.10 ity of [place] [facility] 4.2.7.2.686 Mehdi as [phone] [facility] [address] [place] 2020-10-07 2020-10-07 Emergency [facility] 1.2.840.114 [id number] Univers 15:02:00 17:36:00 Amarilis Rothman 350.1.13.10 ity of [place].2.686 [place] [phone] [facility] [address] 2020-10-07 2020-10-07 Orders Doctor SUNIL 1.2.840.114 [id number] Univers 00:00:00 00:00:00 Only Unassigned, EDUARDO 350.1.13.10 ity of [place] [facility] 4.2.7.2.686 Mehdi as [id number] [facility] [address] 2020-10-06 2020-10-06 Telephone SHARAD Ruiz 1.2.840.114 [id number] Univers 00:00:00 00:00:00 [facility] 350.1.13.10 i ty of [facility] 4.2.7.2.[place] [id number] [facility] [address] 2020-09-15 2020-09-15 [facility] [id number] Univers 00:00:00 00:00:00 EDIL [facility] 2020-09-09 2020-09-09 Outpatient Raya MENDEZ [facility] [id number] Univers 11:15:00 11:15:[address] [facility] 2020-08-22 2020-08-22 Outpatient Raya RUIZ [facility] [id number] Univers 11:00:00 11:56:[address] [facility] 2020-08-22 2020-08-22 Outpatient Raya RUIZ [facility] [id number] Univers 11:00:00 11:00:[address] [facility] 2020-08-05 2020-08-05 Outpatient R NARESH [facility] [id number] Univers 11:30:00 11:30:00 TRINIDAD [facility] 2020-07-22 2020-07-22 Outpatient R NARESH [facility] [id number] Univers 10:00:00 10:00:00 TRINIDAD [facility] 2020-07-15 2020-07-15 Outpatient R ANDREA [facility] [id number] Univers 10:00:00 10:00:[facility] 2020-07-15 2020-07-15 Outpatient R ANDREA, [facility] [id number] Univers 10:00:00 10:00:[facility] 2020-07-15 2020-07-15 Outpatient R [facility] [id number] Univers 10:00:00 10:00:00 [facility] 2020-07-09 2020-07-09 Outpatient R MARCELINO [facility] [id number] Univers 10:00:00 10:00:00 IRAIS ana paula o f [facility] 2020-07-08 2020-07-08 Outpatient R [facility] [id number] Univers 10:00:00 10:00:00 [facility] 2020-06-24 2020-06-24 Outpatient R NARESH [facility] [id number] Univers 10:00:00 10:00:00 TRINIDAD [facility] 2020-06-17 2020-06-17 Outpatient R [facility] [id number] Univers 11:00:00 11:00:00 [facility] 2020-06-17 2020-06-17 Outpatient R PING [facility] [id number] Univers 11:00:00 11:00:00 EDIL [facility] 2020-06-03 2020-06-03 Outpatient [facility] [id number] Univers 10:00:00 10:00:00 TRINIDAD [facility] 2020-04-18 2020-04-22 Outpatient [facility] SHONDA [id number] Univers 14:37:00 22:00:00 ILANA [facility] 2020-03-18 2020-03-18 Outpatient R [facility] [id number] Univers 14:40:00 14:40:[address] [facility] 2020-03-14 2020-03-14 Outpatient R FRANKLYN KIRKLAND [facility] [id number] Univers 09:20:00 09:20:00 FRANKLYN KIRKLAND [facility] 2020-01-29 2020-01-29 Outpatient R [facility] [id number] Univers 08:00:00 08:00:00 ity of [facility] 2020-01-15 2020-01-15 Outpatient R [facility] [id number] Univers 10:00:00 10:00:[address] [facility] 2020-01-10 2020-01-13 Outpatient X YANET [facility] AM[facility] [id number] Univers 16:52:00 20:15:00 BEATRIS [facility] 2020-01-10 2020-01-10 Outpatient R TALA [facility] [id number] Univers 15:30:00 15:30:[address] [facility] 2020-01-09 2020-01-09 Outpatient R MARCELINO [facility] [id number] Univers 10:20:00 10:20:00 ALFREDOYOMAIRA itirineo o f [facility] 2020-01-01 2020-01-01 [facility] [id number] Univers 15:30:00 15:30:[address] [facility] 2019-11-22 2019-11-22 [facility] [id number] Univers 14:00:00 14:00:[address] [facility] 2019-11-15 2019-11-15 Outpatient R TYLER BASS [facility] [id number] Univers 15:45:00 15:45:[address] [facility] 2019-11-01 2019-11-01 [facility] [id number] Univers 15:00:00 15:00:[address] [facility] 2019-10-30 2019-10-30 [facility] [id number] [facility] 15:00:00 15:00:[address] [facility] 2019-10-18 2019-10-18 Outpatient R GAURANG, [facility] [id number] Univers 15:00:00 15:00:[address] [facility] 2019-07-04 2019-07-04 Outpatient R MARCELINO, [facility] [id number] Univers 13:20:00 13:20:00 IRAIS ity o f [facility] 2019-06-29 2019-06-29 Outpatient R [facility] [id number] Univers 09:45:00 09:45:[address] [facility] 2019-06-20 2019-06-20 Outpatient R GAURANG, [facility] [id number] Univers 09:00:00 09:00:[address] [facility] 2019-04-30 2019-04-30 Outpatient R DAYNA, [facility] [id number] Univers 10:00:00 10:00:00 WONDIFUL ity o f [facility] 2019-03-01 2019-03-01 Outpatient R ROCKY GERRYELIDA [facility] [id number] Univers 20:00:00 20:00:00 [address] paula [facility] 2019-01-15 2019-01-15 Outpatient R DAYNA [facility] [id number] Univers 09:33:47 23:59:00 WONDIFUL ity o f [facility] 2019-01-15 2019-01-15 Outpatient R DAYNA [facility] [id number] Univers 09:33:47 23:59:00 WONDIFUL ity o f [facility] Results This patient has no known results.
[2022-06-02 17:46] LABS: Absolute Lymphocytes (CBC) 1.5 K/uL (0.7-4.9); Hematocrit 34.9 % (36.0-45.0); MCV 92.2 fL (80-100); MPV 7.4 fL (7.6-11.3); RBC Red Blood Cell Count 3.78 M/uL (3.86-4.86)
[2022-06-02 18:20] LABS: Albumin 3.8 g/dL (3.4-5.0); Bilirubin Total 0.4 mg/dL (0.2-1.0); Potassium 3.4 mEq/L (3.5-5.1); Protein, Total 7.6 g/dL (6.4-8.2)
--- NOTE | 2022-06-02 18:23 | RAD REPORT ---
EXAM DESCRIPTION: CT - Stone Protocol - 06/02/2022 5:36 pm CLINICAL HISTORY: Abd pain;Flank pain COMPARISON: Abdomen Pelvis Wo Contrast dated 10/28/2021 TECHNIQUE: Thin cut axial CT imaging of the abdomen and pelvis was performed without IV contrast. Mu ltiplanar reformats were generated and reviewed. All CT scans are performed using dose optimization technique as appropriate and may include automated exposure control or mA/KV adjustment according to patient size. FINDINGS: No suspicious findings in the lung bases. The liver, spleen, and pancreas show no suspicious findings. No evidence of intra or extrahepatic deni iary ductal dilation. Symmetric renal contour, without suspicious parenchymal findings within limits of noncontrast techniq ue. No evidence of radiopaque calculi or hydroureteronephrosis. No dilated bowel loops or bowel wall thickening. No free air, free fluid or inflammatory stranding. N o hernia, mass or bulky lymphadenopathy. The urinary bladder is without significant finding. Postsurgical sequelae of cholecystectomy, distal colonic partial resection, and ventral wall hernia r epair. No suspicious bony findings. IMPRESSION: No acute intra-abdominal process.
--- NOTE | 2022-06-02 18:26 | RAD REPORT ---
EXAM DESCRIPTION: RAD - Femur Right - 06/02/2022 6:06 pm CLINICAL HISTORY: PAIN COMPARISON: Stone Protocol dated 06/02/2022 TECHNIQUE: Right femur, 2 views. FINDINGS: No fracture is identified. There is no dislocation or periosteal reaction noted. No acute or suspicious bony finding. IMPRESSION: No acute osseous abnormality of the right femur.
--- NOTE | 2022-06-02 18:27 | RAD REPORT ---
EXAM DESCRIPTION: RAD - Hip Right 2 View - 06/02/2022 6:06 pm CLINICAL HISTORY: PAIN COMPARISON: No comparisons TECHNIQUE: Right hip, 2 views. FINDINGS: There is no fracture or dislocation. No acute or destructive bony process seen. IMPRESSION: No acute findings of the right hip.
[2022-06-02] MEDS ORDERED: FENTANYL CITR 100 MCG/2 ML ONE (19:02)
[2022-06-02] MEDS ORDERED: ONDANSETRON 4 MG/2 ML VIAL ONE (19:02)
--- NOTE | 2022-06-02 19:19 | ER ---
Nurse's Notes [facility] Name: Jennifer Petty Age: 61 yrs Sex: Female : 1960 Arrival Date: 06/02/2022 Time: 17:04 Bed 10 Private MD: Diagnosis: Pain in right hip;Abdominal pain, Generalized;UTI/ Urinary tract infection, site not specified Presentation: 06/02 17:06 Chief complaint: Patient states: R upper abd/ flank tenderness that began today. Also ss c/o R hip/ femur pain that began today as well. Reports fall from standing 3 days ago. Coronavirus screen: Client denies travel out of the [place] in the last 14 days. Ebola Screen: Patient denies exposure to infectious person. Patient denies travel to an Ebola-affected area in the 21 days before illness onset. Initial Sepsis Screen: Does the patient meet any 2 criteria? No. Patient's initial sepsis screen is negative. Does the patient have a suspected source of infection? No. Patient's initial sepsis screen is negative. Risk Assessment: Do you want to hurt yourself or someone else? Patient reports no desire to harm self or others. 17:06 Method Of Arrival: EMS: [facility] ss 17:06 Onset of symptoms was June 02, 2022. ss 17:06 Acuity: JOSE ENRIQUE 3 ss Triage Assessment: 17:12 General: Appears in no apparent distress. comfortable, Behavior is calm, cooperative, nj1 appropriate for age. Historical: - Allergies: 17:10 Adhesives; ss 17:10 Baclofen; ss 17:10 Ciprofloxacin; ss 17:10 Cymbalta; ss 17:10 Depakote; ss 17:10 GABAPENTIN; ss 17:10 iodine I 131 Tosutumomab; ss 17:10 Lisinopril; ss 17:10 Losartan; ss 17:10 Macrobid; ss 17:10 Midrin; ss 17:10 Morphine; ss 17:10 Robaxin; ss 17:10 Septra; ss 17:10 Sinografin; ss 17:10 topiramate; ss 17:10 Toradol; ss 17:10 tramadol; ss - PMHx: 17:10 Allergic rhinitis; Anemia; CVA; dementia without behavioral disturbances; epilepsy; ss Fibromyalgia; GERD; Hyperlipidemia; Hypertensive disorder; Hypothyroidism; insomnia; Lupus erythematosus; peptic ulcer; protein-calorie malnutrition; vitamin d deficiency; - Immunization history:: Client reports receiving the 2nd dose of the Covid vaccine. - Social history:: Smoking status: Patient denies any tobacco usage or history of. Screenin:12 [facility] ED Fall Risk Assessment (Adult) History of falling in the last 3 months, nj1 including since admission Yes- single mechanical fall (1 pt) Confusion or Disorientation No (0 pts) Intoxicated or Sedated No (0 pts) Impaired Gait Yes (1 pt) Mobility Assist Device Used Yes (1 pt) Altered Elimination No (0 pt) Score/Fall Risk Level 3 or more points = High Risk Oriented to surroundings, Maintained a safe environment, Assessed \T\ reinforced patient's understanding of fall precautions, Hourly rounding (assess needs \T\ fall precautionary measures) done, Used ambulatory aids as needed (educated on \T\ assisted with), Remained with patient while ambulating. 17:12 Abuse screen: Denies threats or abuse. Denies injuries from another. Nutritional nj1 screening: No deficits noted. Tuberculosis screening: No symptoms or risk factors identified. Assessment: 17:12 Reassessment: Patient appears in no apparent distress at this time. Patient and/or nj1 family updated on plan of care and expected duration. Pain level reassessed. Patient is alert, oriented x 3, equal unlabored respirations, skin warm/dry/pink. Pain: Complains of pain in right leg, ribs, back Pain currently is 9 out of 10 on a pain scale. 18:59 Reassessment: Patient and/or family updated on plan of care and expected duration. Pain nj1 level reassessed. Patient is alert, oriented x 3, equal unlabored respirations, skin warm/dry/pink. General: Appears uncomfortable, Behavior is crying. 18:59 Pain: Complains of pain in right leg/hip Pain currently is 10 out of 10 on a pain scale.nj1 Vital Signs: 17:12 BP 135 / 88; Pulse 63; Resp 16; Temp 97.9(O); Pulse Ox 98% on R/A; Pain 9/10; nj1 18:59 BP 150 / 100; Pulse 71; Resp 17; Pulse Ox 100% on R/A; Pain 10/10; nj1 17:12 Pain Scale: Adult nj1 18:59 Pain Scale: Adult nj1 ED Course: 17:06 Patient arrived in ED. kb 17:06 Vidhi Britt F[facility]-C [facility] kb 17:06 Dean Miller MD is Attending Physician. kb 17:10 Berna Shelley, RN is Primary Nurse. nj1 17:10 Triage completed. ss 17:10 Arm band placed on right wrist. ss 17:12 Patient has correct armband on for positive identification. Bed in low position. Call [facility] light in reach. 17:25 Inserted saline lock: 20 gauge in right antecubital area, using aseptic technique. nj1 Blood collected. 17:38 CT Stone Protocol In Process Unspecified. EDMS 17:40 CBC with Diff Sent. nj1 17:40 CMP Sent. nj1 17:40 Lipase Sent. nj1 17:40 Urinalysis w/ reflexes Sent. nj1 18:08 Hip Right 2 View XRAY In Process Unspecified. EDMS 18:08 Femur Right XRAY In Process Unspecified. EDMS 20:05 Attending Physician role handed off by Dean Miller MD [facility] 20:05 Segundo Montero MD is Attending Physician. [facility] 21:37 No provider procedures requiring assistance completed. IV discontinued, intact, kl bleeding controlled, No redness/swelling at site. Pressure dressing applied. Administered Medications: 18:59 Drug: fentaNYL (PF) IVP 25 mcg Route: IVP; Site: right antecubital; nj1 18:59 Drug: Ondansetron IVP 4 mg Route: IVP; Site: right antecubital; nj1 Outcome: 19:18 Discharge ordered by . kb 21:37 Discharged to [facility]. 21:37 Condition: stable 21:37 Discharge instructions given to patient, [facility], Instructed on discharge instructions, follow up and referral plans. medication usage, Demonstrated understanding of instructions, follow-up care, medications. 21:37 Patient left the ED. kl Signatures: Dispatcher [employer] EDMS Vidhi Britt FNP-C FNP-Carmencita Blanchard RN Segundo Ruvalcaba MD MD cha Smirch, Shelby, RN RN Berna Shelley, RN RN [facility]
--- NOTE | 2022-06-02 19:19 | EDPHYS ---
Physician Documentation [facility] Name: Jennifer Petty Age: 61 yrs Sex: Female : 1960 Arrival Date: 06/02/2022 Time: 17:04 Bed 10 Private MD: HARITHA Physician Segundo Montero HPI: 06/02 19:29 This 61 yrs old Female presents to ER via EMS with complaints of Leg Pain, Abd Pain > kb 48 y/o. 19:29 The patient presents with pain. The complaints affect the right hip and right kb quadriceps. Context: resulted from an unknown cause, the patient can fully bear weight, the patient is able to ambulate. Onset: The symptoms/episode began/occurred today. Modifying factors: The symptoms are alleviated by nothing. the symptoms are aggravated by movement. Associated signs and symptoms: The patient has no apparent associated signs or symptoms. Treatment prior to arrival includes: no previous treatment. Severity of symptoms: At their worst the symptoms were mild, moderate, in the emergency department the symptoms are unchanged. The patient has experienced similar episodes in the past. The patient has not recently seen a physician. Patient reports she slid out of a chair 2 days ago but did not have any pain until today. Reports pain to right hip and upper leg. Also reports pain to right upper abdomen and flank. Denies nausea, vomiting, diarrhea, constipation, urinary symptoms. Historical: - Allergies: 17:10 Adhesives; ss 17:10 Baclofen; ss 17:10 Ciprofloxacin; ss 17:10 Cymbalta; ss 17:10 Depakote; ss 17:10 GABAPENTIN; ss 17:10 iodine I 131 Tosutumomab; ss 17:10 Lisinopril; ss 17:10 Losartan; ss 17:10 Macrobid; ss 17:10 Midrin; ss 17:10 Morphine; ss 17:10 Robaxin; ss 17:10 Septra; ss 17:10 Sinografin; ss 17:10 topiramate; ss 17:10 Toradol; ss 17:10 tramadol; ss - PMHx: 17:10 Allergic rhinitis; Anemia; CVA; dementia without behavioral disturbances; epilepsy; ss Fibromyalgia; GERD; Hyperlipidemia; Hypertensive disorder; Hypothyroidism; insomnia; Lupus erythematosus; peptic ulcer; protein-calorie malnutrition; vitamin d deficiency; - Immunization history:: Client reports receiving the 2nd dose of the Covid vaccine. - Social history:: Smoking status: Patient denies any tobacco usage or history of. ROS: 19:28 Constitutional: Negative for fever, chills, and weight loss. kb 19:28 Abdomen/GI: Positive for abdominal pain, Negative for nausea, vomiting, and diarrhea. 19:28 MS/extremity: Positive for pain, of the right hip and right quadriceps. 19:28 All other systems are negative. Exam: 19:28 Constitutional: This is a well developed, well nourished patient who is awake, alert, kb and in no acute distress. Head/Face: Normocephalic, atraumatic. ENT: Moist Mucous membranes Cardiovascular: Regular rate and rhythm with a normal S1 and S2. No gallops, murmurs, or rubs. No pulse deficits. Respiratory: Respirations even and unlabored. No increased work of breathing. Talking in full sentences Skin: Warm, dry with normal turgor. Normal color. Neuro: Awake and alert, GCS 15, oriented to person, place, time, and situation. Moves all extremities. Normal gait. Psych: Awake, alert, with orientation to person, place and time. Behavior, mood, and affect are within normal limits. 19:28 Abdomen/GI: Inspection: abdomen appears normal, Bowel sounds: normal, Palpation: soft, in all quadrants, mild abdominal tenderness, in the right upper quadrant and left upper quadrant. 19:28 Back: CVA tenderness, that is mild, is noted on the right. 19:28 Musculoskeletal/extremity: Extremities: grossly normal except: noted in the right hip: pain, tenderness, noted in the lateral aspect of right thigh: pain, tenderness, ROM: intact in all extremities, Circulation is intact in all extremities. Sensation intact. Vital Signs: 17:12 BP 135 / 88; Pulse 63; Resp 16; Temp 97.9(O); Pulse Ox 98% on R/A; Pain 9/10; nj1 18:59 BP 150 / 100; Pulse 71; Resp 17; Pulse Ox 100% on R/A; Pain 10/10; nj1 17:12 Pain Scale: Adult nj1 18:59 Pain Scale: Adult nj1 MDM: 17:06 Patient medically screened. kb 19:29 Differential diagnosis: dislocation, closed fracture, contusion, Kidney stone, UTI, kb sciatica. Data reviewed: vital signs, nurses notes. Historians other than the Patient: EMS: [facility]. Counseling: I had a detailed discussion with the patient and/or guardian regarding: the historical points, exam findings, and any diagnostic results supporting the discharge/admit diagnosis, lab results, radiology results, the need for outpatient follow up, a family practitioner, to return to the emergency department if symptoms worsen or persist or if there are any questions or concerns that arise at home. 06/02 17:07 Order name: CBC with Diff; Complete Time: 18:09 kb 06/02 17:07 Order name: CMP; Complete Time: 18:24 kb 06/02 17:07 Order name: Lipase; Complete Time: 18:24 kb 06/02 17:07 Order name: Urinalysis w/ reflexes; Complete Time: 20:29 kb 06/02 17:07 Order name: Hip Right 2 View XRAY; Complete Time: 18:30 kb 06/02 17:07 Order name: Femur Right XRAY; Complete Time: 18:29 kb 06/02 17:07 Order name: CT Stone Protocol; Complete Time: 18:24 kb 06/02 17:07 Order name: IV Saline Lock; Complete Time: 17:40 kb 06/02 17:07 Order name: Labs collected and sent; Complete Time: 17:40 kb Administered Medications: 18:59 Drug: fentaNYL (PF) IVP 25 mcg Route: IVP; Site: right antecubital; nj1 18:59 Drug: Ondansetron IVP 4 mg Route: IVP; Site: right antecubital; nj1 Disposition Summary: 06/02/22 19:18 Discharge Ordered Location: Home kb Condition: Stable kb Diagnosis - Pain in right hip kb - Abdominal pain, Generalized kb - UTI/ Urinary tract infection, site not specified kiya Followup: kb - With: Emergency Department - When: As needed - Reason: Worsening of condition Followup: kb - With: Private Physician - When: 2 - 3 days - Reason: Recheck today's complaints, Continuance of care, Re-evaluation by your physician Discharge Instructions: - Discharge Summary Sheet kb - Musculoskeletal Pain kb - Abdominal Pain, Adult, [id number] kb - Urinary Tract Infection, Adult kiya Forms: - Medication Reconciliation Form kb - Thank You Letter kb - Antibiotic Education kb - Prescription Opioid Use kb Prescriptions: - Cephalexin 500 mg Oral Capsule - take 1 capsule by ORAL route every 8 hours for 10 days; 21 capsule; Refills: 0, kiya Product Selection Permitted Addendum: 06/07/2022 06:59 Co-signature as Attending Physician, Dean AMIN I reviewed the patient's care r n provided by the Advanced Practice Provider and agree with the diagnosis and treatment plan. Signatures: Dispatcher [employer] Vidhi Lovett, DEODORIZER OPERATOR-C DEODORIZER OPERATOR-Ckb Segundo Montero MD MD cha Nieto, Roman, MD MD rn Smirch, Shelby, RN RN ss Berna Shelley RN RN nj1
[2022-06-02 20:27] LABS: Specific Gravity 1.013 (1.005-1.030); Transitional Epithelial <5 /HPF (None Seen); Urine Bacteria <20 /HPF (<20); Urine Bilirubin NEGATIVE (Negative); Urine Blood Negative (Negative); Urine Clarity Clear (Clear); Urine Color Light-Yellow (Yellow); Urine Glucose NEGATIVE (Negative); Urine Protein NEGATIVE (Negative); Urine RBC <5 /HPF (None Seen); Urine Urobilinogen Normal (Normal); Urine pH 6.5 (5.0-7.0)
[2022-06-02 21:55] VITALS: BP 135/88; TEMP 97.9; O2SAT 98
== END 2022-06-02 21:37 | disposition home or self-care (01) ==
LOC: ER 17:04
DX: N39.0 Urinary tract infection, site not specified (principal); M25.551 Pain in right hip; I10 Essential (primary) hypertension; Z88.1 Allergy status to other antibiotic agents; Z88.3 Allergy status to other anti-infective agents; Z88.5 Allergy status to narcotic agent; Z88.6 Allergy status to analgesic agent; Z88.8 Allergy status to other drugs, medicaments and biological substances; Z91.048 Other nonmedicinal substance allergy status
CPT/HCPCS: 85025; 81001; 36415; 83690; 80053; 76377; 74176; 73502; 73552; J3010; J2405; 96374; 96375; 99284

== ENCOUNTER 2022-07-23 10:13 | Emergency (ER) | payer OTHER ==
--- OUTSIDE RECORDS SUMMARY | 2022-07-23 10:22 | XMS REPORT | Continuity of Care Document ---
:1960 Author Organization [facility] t Address [address] [place] [address] Care Team Providers Name Role Phone JERRI ELKINS Primary Care Physician Unavailable EDIL FENG Attending Clinician Unavailable DANIELLE ABDUL Attending Clinician Unavailable LUDMILA RUIZ Attending Clinician Unavailable RACHEL SOTO Attending Clinician Unavailable KRISTI GUZMAN Attending Clinician Unavailable KRISTI GUZMAN Attending Clinician Unavailable Dagoberto Shaw MD Attending Clinician Edil Feng MD Attending Clinician Irais Benson MD Attending Clinician DAGOBERTO SHAW Attending Clinician Unavailable Doctor Unassigned, [place] Attending Clinician Unavailable Heaven Walter RN Attending Clinician Unavailable Marco A Peralta MD Attending Clinician [phone] BRENT WELLS Attending Clinician Unavailable Ludmila Ruiz MD Attending Clinician CHARLOTTE VILLALPANDO Attending Clinician Unavailable Charlotte Peter Attending Clinician Arina Ramsay RN Attending Clinician Unavailable PATRICIA BOLAÑOS Attending Clinician Unavailable Noel Richmond DO Attending Clinician Tom Lopez MD Attending Clinician Patricia Bolaños MD Attending Clinician Franklyn Schwartz MD Attending Clinician Francesca AMIN, [place] Attending Clinician Bhumika AMIN, Jamey Barton Attending Clinician SHAISTA GUERRA Attending Clinician Unavailable Mari AMIN, Shaista Attending Clinician Only, Adc Test Attending Clinician Unavailable Milena OROPEZA Attending Clinician Unavailable Sandip PACMilena Attending Clinician Ibikunle BIOMETRICS INSTRUCTOR, Folusho F Attending Clinician [place] AMIN, Kylee Honeycutt Attending Clinician Osei AMIN, Leslye Attending Clinician Adina AMIN, Radha Lozada Attending Clinician Haritha AMIN, [facility] Attending Clinician BALDEMAR WILDER Attending Clinician Unavailable Randell AMIN, Baldemar Kate Attending Clinician Dagoberto AMIN, Ilana Valencia Attending Clinician [phone] Amarilis Bergman DO Attending Clinician PREMA MENDEZ Attending Clinician Unavailable TRINIDAD INFANTE Attending Clinician Unavailable IRAIS BENSON Attending Clinician Unavailable ILANA ALCALA Attending Clinician Unavailable FRANKLYN SCHWARTZ Attending Clinician Unavailable FRANKLYN SCHWARTZ Attending Clinician Unavailable BEATRIS HOLT Attending Clinician Unavailable ANNEMARIE EDGAR Attending Clinician Unavailable TYLER BASS Attending Clinician Unavailable LUDMILA MERLOS Attending Clinician Unavailable RADHA MCINTOSH Attending Clinician Unavailable CAR HIDALGO T Attending Clinician Unavailable GERRY HIDALGOHIL Marlo Attending Clinician Unavailable LUDMILA RUIZ Admitting Clinician Unavailable DAGOBERTO SHAW Admitting Clinician Unavailable Dagoberto Shaw MD Admitting Clinician EDIL FENG Admitting Clinician Unavailable CHARLOTTE VILLALPANDO Admitting Clinician Unavailable PATRICIA BOLAÑOS Admitting Clinician Unavailable Patricia Bolaños MD Admitting Clinician Ludmila Ruiz MD Admitting Clinician SHAISTA GUERRA Admitting Clinician Unavailable Shaista Guerra MD Admitting Clinician Milena OROPEZA Admitting Clinician Unavailable Leslye Franz MD Admitting Clinician LESLYE FRANZ Admitting Clinician Unavailable DENA ESTEBAN Admitting Clinician Unavailable ERLIN SCHWARTZ Admitting Clinician Unavailable RADHA MCINTOSH Admitting Clinician Unavailable Payers Payer Name Policy Type Policy Number Effective Date Expiration Date Derek GARIBAY PLS [id number] 2019 HMO 00:00:00 MEDICAID [facility] [id number] 2017 00:00:00 [facility] DUAL [id number] 2022 COMP CHOICE PPO 00:00:00 DSNP [facility] [id number] 2022 PLUS 00:00:00 MEDICARE PART A [id number] 1996 2022 \T\ B 00:00:00 00:00:00 Problems Condition Condition Condition Status Onset Resolution Last Treating Co mments Source Name Details Category Date Date Treatment Clinician Date Slow Slow Disease Active Univers transit transit 4-27 it[place] [facility] [place] Incontinen Incontinen Disease Active U nivers ce of ce of 4-27 ity of feces [place] with [place] fecal fecal 00 Medical urgency urgency Branch Ventral Ventral Disease Active 2021-02 Univers hernia hernia 1-21 ity of without without 00:00: [place] obstructio obstructio 00 Me dical n or n or Branch gangrene gangrene Incisional Incisional Disease Active U nivers hernia, hernia, 8-28 ity of without without 00:00: [place] obstructio obstructio 00 Me dical n or n or Branch gangrene gangrene Frequent Frequent Disease Active Unive rs falls falls 4-07 ity of 00:00: 00 Medical Branch Attention Attention Disease Active Uni vers to to 3-16 ity of colostomy colostomy 00:00: [place] Medical Branch Colostomy Colostomy Disease Active Uni vers status status 3-16 ity of 00:00: [place] 00 Medical Branch Stercoral Stercoral Disease Active Overview: Univers ulcer of ulcer of 3-01 Formattin ity of large large 00:00: g of this [place] intestine intestine 00 note Medi landry might be Branch different from the original. Added automatic ally from request for surgery [id number] Colostomy Colostomy Disease Active Overview: Univers in place in place 2-11 Formattin ity of 00:00: g of this [place] 00 note Medical might be Branch different from the original. Added automatic ally from request for surgery [id number] GIB GIB Disease Active Univers (gastroint (gastroint 02-15 it y of estinal estinal 00:00: [place] bleeding) bleeding) 00 Medi landry Branch Melena Melena Disease Active Overview: Univer s 08 Formattin ity of 00:00: g of this [place] 00 note Medical might be Branch different from the original. Added automatic ally from request for surgery [id number] Parastomal Parastomal Disease Active 2020-02 U nivers hernia hernia 0-19 ity of without without 00:00: [place] obstructio obstructio 00 Me dical n or n or Branch gangrene gangrene Syncope Syncope Disease Active Univers and and 8 ity of collapse collapse 00:00: [place] 00 Medical Branch Dyslipidem Dyslipidem Disease Active U nivers ia ia 8- ity of 00:00: [place] 00 Medical Branch Sinus Sinus Disease Active Univers pause pause 8- ity of status status 00:00: [place] post [...] of 4-06 ity of sigmoid sigmoid 00:00: [place] colon s/p colon s/p 00 Medi landry [facility] Br anch on on 05/13/2020 05/13/2020 Therapeuti Therapeuti Disease Active U anahiers c c 4-06 ity of opioid-ind opioid-ind 00:[place] uced uced 00 Medical constipati constipati Br anch on (OIC) on (OIC) Chronic, Chronic, Disease Recurre Overview: U nivers continuous continuous nce 4-06 Formattin ity of use of use of 00:00: g of this [place] opioids opioids 00 note Medical might be Branch different from the original. Percocet Peritoniti Peritoniti Disease Active U nivers s s 4-06 ity of 00:00: [place] 00 Medical Branch Stroke of Stroke of Disease [...] nivers seizure seizure 2-05 ity of 00:00: [place] 00 Medical Branch Mixed Mixed Disease Active 2019 Univers hyperlipid hyperlipid 9-20 it y of emia emia 00:00: [place] 00 Medical Branch Prediabete Prediabete Disease Active 2019 U nivers s s 4-10 ity of 00:00: [place] 00 Medical Branch Kidney Kidney Disease Active 2019 Overview: Univer s lesion, lesion, 3-25 Formattin ity [place] 00:[place]: g of this [place] right right 00 note Medical might be Branch different from the original. likely angiolipo ma per Radiology Kidney Kidney Disease Active Overview: Univer s lesion, lesion, 3-25 Formattin ity o f [place], 00:00: g of this [place] right right 00 note Medical might be Branch different from the original. likely angiolipo ma per Radiology Hyperthyro Hyperthyro Disease Active 2018 U nivers idism idism 2-19 ity of 00:00: [place] Medical Branch Obesity Obesity Disease Active 2017-02 Univers (BMI (BMI 2-17 ity of 30-39.9) 30-39.9) 00:00: [place] 00 Medical Branch Vitamin D Vitamin D Disease Active Uni vers deficiency deficiency 10-27 it y of 00:00: Medical Branch Chronic Chronic Disease Active Univers insomnia insomnia 10-16 ity of 00:00: Medical Branch Chronic Chronic Disease Active Univers migraine migraine 10-16 ity of without without 00:00: [place] aura aura 00 Medical without without Branch status status migrainosu migrainosu s, not s, not intractabl intractabl e e Neuropathy Neuropathy Disease Active U nivers 10-16 ity of 00:00: [place] Medical [facility] Pacemaker Pacemaker Disease Recurre Un berta nce 10-16 ity of 00:00: [place] Medical [facility] Essential Essential Disease Active Uni vers hypertensi hypertensi 10-16 it y of on on 00:00: Medical Branch History of History of Disease Active U nivers hepatitis hepatitis 10-16 ity of C C 00:00: Medical Branch PUD PUD Disease Active Univers (peptic (peptic 10-16 ity of ulcer ulcer 00:00: [place] disease) disease) 00 Medica l Branch Gastroesop Gastroesop Disease Active U anahiers hageal hageal 10-16 ity of reflux reflux 00:00: [place] disease, disease, 00 Medica l esophagiti esophagiti Br anch s presence s presence not not specified specified History of History of Disease Active U nivers urinary urinary 10-16 ity of tract tract 00:00: [place] surgery surgery 00 Medical Branch Fibromyalg Fibromyalg Disease Active U scot ia ia 10-16 ity of 00:00: [place] 00 Medical Branch Parasomnia Parasomnia Disease Active U nivers 10-16 ity of 00:00: [place] 00 Medical Branch Anxiety Anxiety Disease Active Overview: Univ ers 1-14 Formattin ity of 00:00: g of this note Medical might be Branch different from the original. Formattin g of this note might be different from the original. 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 Unive rs hyperalges hyperalges 2-04 it y of ia ia 00:00: [place] 00 Medical Branch [facility] Cyst of Cyst of Disease Active Univers left left ity of kidney kidney [facility] Allergies, Adverse Reactions, Alerts Allergy Allergy Status Severity Reaction(s) Onset Inactive Treating Comm ents Source Name Type Date Date Clinician TOSITUMO DRUG Active Unknown-Cmnt Un berta MAB INGREDI 04-08 ity of 00:00: [place] 00 Medical Branch Tositumo Propensi Active Unknown - Uni vers mab ty to See comments 04-08 ity of adverse 00:00: [place] reaction 00 Medical s Branch Gabapent Drug Active Palpitations 0 Un berta in Allergy 04-22 ity of 00:00: [place] 00 Medical Branch GABAPENT DRUG Active Palpitations 0 Un berta IN INGREDI 04-22 ity of [...] Hives 2018 Univer s ex ty to 09-28 ity [...] Shortness of Univers Dichlora ty to Breath 09-28 ity of l-Acetam adverse 00:00: [place] inophn reaction 00 Medical s Branch Morphine Propensi Active Hives Univer s Sulfate ty to 09-28 ity of adverse 00:00: [place] reaction 00 Medical s Branch Methocar Propensi Active Diarrhea Univ ers bamol ty to 09-28 ity [...] Branch Topirama Propensi Active Other - See 2018 [place] , Univers te ty to comments 09-28 overwhelm ity o f adverse 00:00: ing [place] reaction 00 feeliing Medica l s Branch Ketorola Propensi Active Other - See 2018- Restless Univers c ty to comments 09-28 legs ity of Trometha adverse 00:00: [place] mine reaction 00 Medical s Branch Tramadol Propensi Active Other - See shaky U nivers ty to comments 09-28 legs ity of adverse 00:00: [place] reaction 00 Medical s Branch Adhesive Propensi Active Other - See 2018- redness Univers ty to comments 09-28 ity of adverse 00:00: [place] reaction 00 Medical s Branch Iodine Propensi Active Hives 2018-0 Univers And ty to 09-28 ity of Iodide adverse 00:00: [place] Containi reaction 00 Medica l ng s Branch Products ADHESIVE Drug Active Other-Cmnt 2018-0 Univ ers Class 8-22 ity of 00:00: [place] 00 Medical Branch BACLOFEN DRUG Active Hallucinates 2018-0 Un berta INGREDI 09-28 ity of 00:00: [place] 00 Medical Branch CIPROFLO DRUG Active Hives 2018-0 Univers XACIN INGREDI 09-28 ity of 00:00: [place] 00 Medical Branch IODINE Drug Active Hives 2018-0 Univers AND Class 8- ity of IODIDE 00:00: [place] CONTAINI 00 [...] DRUG Active Other-Cmnt 2018-0 Univ ers INGREDI 8-22 ity of 00:00: [place] 00 Medical Branch Social History Social Habit Start Date Stop Date Quantity Comments Source History SDOH University o f Alcohol Frequency [place] M edical Branch History SDOH University o f Alcohol Std [place] Medical Drinks Branch History SDOH University o f Alcohol Binge [place] Medic al Branch Alcohol intake 2022-06-03 2022-06-03 Current drinker Unive rsity of 00:00:00 00:00:00 of alcohol [facility] (finding) Branch Exposure to 2022-05-10 2022-05-20 Not sure [facility] SARS-CoV-2 00:00:00 09:58:00 [facility] (event) Branch Tobacco use and 2021-09-14 2021-09-14 Smokeless tobacco Un iversity of exposure 00:00:00 00:00:00 non-user [facility] Education 2020-01-11 2020-01-11 16 University of 00:00:00 00:00:00 [facility] Alcohol Comment 2018-10-10 2018-10-10 Rare occasions Unive rsity of 00:00:00 00:00:00 [facility] Sex [birth year] At [birth year] Universit y of 00:00:00 00:00:00 [facility] Smoking Status Start Date Stop Date Source Never smoked tobacco [facility] Medications Ordered Filled Start Stop Current Ordering Indication Dosage Frequency Signature Comments Components Source Medication Medication Date Date Medication? Clinician (SIG) Name Name cephALEXin Yes 500mg Take 1 Univ ers 500 mg 4-27 capsule by ity of capsule 09:34: mouth 4 [place] 27 (four) Medical times Branch daily. acetaminoph Yes 650mg Take 1 Uni vers en 650 mg 3-02 tablet by ity o f CR tablet 09:49: mouth [place] 35 every 8 Medical (eight) Branch hours as needed for Pain. MELOXICAM Yes 15mg Take 15 mg Un berta ORAL 3-02 by mouth. ity of 09:49: [place] 35 Medical Branch Lactobacill Yes 1{capsu Take 1 U nivers [...] Branch hours as needed for Pain. MELOXICAM 2023-0 Yes 15mg Take 15 mg Un berta ORAL 3-02 by mouth. ity of 09:49: [place] [address] Medical Branch Lactobacill 3-0 Yes 1{capsu Take 1 U nivers us [...] Branch hours as needed for Pain. MELOXICAM 2023-0 Yes 15mg Take 15 mg Un berta ORAL 3-02 by mouth. ity of 09:49: [address] Branch Lactobacill 3-0 Yes 1{capsu Take 1 U nivers us 3-02 le} capsule by ity of acidoph-pec 09:49: mouth [place] tin capsule 35 the Medical morning. Branch loperamide 2023-0 Yes 2mg Take 1 Unive rs (IMODIUM [...] Branch hours as needed for Pain. MELOXICAM 2023-0 Yes 15mg Take 15 mg Un berta ORAL 3-02 by mouth. ity of 09:49: [address] Branch Lactobacill 3-0 Yes 1{capsu Take 1 U nivers us 3-02 le} capsule by ity of acidoph-pec 09:49: mouth in [place] tin capsule 35 the Medical morning. Branch loperamide 2022-0 Yes 2mg Take 1 Unive rs (IMODIUM 3-02 capsule by ity o f A-D) 2 mg 09:49: mouth [place] capsule 35 every 4 Medical (four) Branch hours as needed for Diarrhea. HYDROcodone 2022-0 Yes 1{tbl} Take 1 Un berta -acetaminop 1-05 tablet by ity of hen 7.5-325 11:39: mouth [place] mg per 30 every 6 Medical tablet (six) Branch hours as needed. HYDROcodone 2022-0 Yes 1{tbl} Take 1 Un berta -acetaminop 1-05 tablet by ity of hen 7.5-325 11:39: mouth [place] mg per 30 every 6 Medical tablet (six) Branch hours as needed. HYDROcodone 2022-0 Yes 1{tbl} Take 1 Un berta -acetaminop 1-05 tablet by ity of hen 7.5-325 11:39: mouth [place] mg per 30 every 6 Medical tablet (six) Branch hours as needed. HYDROcodone 2022-0 Yes 1{tbl} Take 1 Un berta -acetaminop 1-05 tablet by ity of hen 7.5-325 11:39: mouth [place] mg per 30 every 6 Medical tablet (six) Branch hours as needed. HYDROcodone 2022-0 Yes 1{tbl} Take 1 Un berta -acetaminop 1-05 tablet by ity of hen 7.5-325 11:39: mouth [place] mg per 30 every 6 Medical tablet (six) Branch hours as needed. HYDROcodone 2022-0 Yes 1{tbl} Take 1 Un berta -acetaminop 1-05 tablet by ity of hen 7.5-325 11:39: mouth [place] mg per 30 every 6 Medical tablet (six) Branch hours as needed. cetirizine 2022-0 Yes 10mg Take 10 mg U nivers 10 mg -03 by mouth ity of tablet 12:02: daily. [place] 37 Medical Branch propranoloL 2022-0 Yes 40mg Take 40 mg Univers 40 mg -03 by mouth 3 ity of tablet 12:02: (three) [place] 37 times Medical daily. Branch pyridoxine, 2022-0 Yes 25mg Take 25 mg Univers VITAMIN 1-03 by mouth ity of B-6, 25 mg 12:02: daily. [facility] 37 Medical Branch acetaminoph 2022-0 Yes 650mg Take 650 U nivers en 650 mg 1-03 mg by ity of CR tablet 12:02: mouth [place] [address] every 8 Medical (eight) Branch hours as needed for Pain. docusate 2022-0 Yes 100mg Take 100 Univ ers 100 mg 1-03 mg by ity of capsule 12:02: mouth [place] [address] daily. Medical Branch HYDROcodone 2022-0 Yes 1{tbl} Take 1 Un berta -acetaminop 1-03 tablet by ity of hen 5-325 12:02: mouth [place] tablet 37 every 6 Medical (six) Branch hours as needed. polyethylen 2022-0 Yes Take by Uni vers e glycol 1-03 mouth. ity of 3350 12:02: [place] (MIRALAX 37 Medical ORAL) Branch furosemide 2022-0 Yes 20mg Take 20 mg U nivers 20 mg 1-03 by mouth ity of tablet 12:02: in the [place] [address] morning. Medical Branch famotidine 2022-0 Yes 40mg Take 40 mg U nivers 40 mg 1-03 by mouth ity of tablet 12:02: in the [place] [address] morning. Medical Branch DILTIAZEM 2022-0 Yes 120mg Take 120 Uni vers HCL ORAL 1-03 mg by ity of 12:02: mouth [place] [address] every 8 Medical (eight) Branch hours. cetirizine 2022-0 Yes 10mg Take 10 mg U nivers 10 mg 1-03 by mouth ity of tablet 12:02: daily. [place] [address] Medical Branch propranoloL 2022-0 Yes 40mg Take 40 mg Univers 40 mg 1-03 by mouth 3 ity of tablet 12:02: (three) [place] 37 times Medical daily. Branch pyridoxine, 2022-0 Yes 25mg Take 25 mg Univers VITAMIN 1-03 by mouth ity of B-6, 25 mg 12:02: daily. [facility] 37 Medical Branch acetaminoph 2022-0 Yes 650mg Take 650 U nivers en 650 mg 1-03 mg by ity of CR tablet 12:02: mouth [place] [address] every 8 Medical (eight) Branch hours as needed for Pain. docusate 2022-0 Yes 100mg Take 100 Univ ers 100 mg 1-03 mg by ity of capsule 12:02: mouth [place] [address] daily. Medical Branch HYDROcodone 2022-0 Yes 1{tbl} Take 1 Un berta -acetaminop 1-03 tablet by ity of hen 5-325 12:02: mouth [place] mg tablet 37 every 6 Medical (six) Branch hours as needed. polyethylen 2022-0 Yes Take by Uni vers e glycol 1-03 mouth. ity of 3350 12:02: [place] (M[facility]ALAX 37 Medical ORAL) Branch furosemide 2022-0 Yes 20mg Take 20 mg U nivers 20 mg 1-03 by mouth ity of tablet 12:02: in the [place] [address] morning. Medical Branch famotidine 2022-0 Yes 40mg Take 40 mg U nivers 40 mg 1-03 by mouth ity of tablet 12:02: in the [place] [address] morning. Medical Branch DILTIAZEM 2022-0 Yes 120mg Take 120 Uni vers HCL ORAL 1-03 mg by ity of 12:02: mouth [place] 37 every 8 Medical (eight) Branch hours. cetirizine 2022-0 Yes 10mg Take 10 mg U nivers 10 mg 1-03 by mouth ity of tablet 12:02: daily. [place] [address] Medical Branch propranoloL 2022-0 Yes 40mg Take 40 mg Univers 40 mg -03 by mouth 3 ity of tablet 12:02: (three) [place] [address] times Medical daily. Branch pyridoxine, 2022-0 Yes 25mg Take 25 mg Univers VITAMIN 1-03 by mouth ity of B-6, 25 mg 12:02: daily. [place] [facility] 37 Medical Branch acetaminoph 2022-0 Yes 650mg Take 650 U nivers en 650 mg 1-03 mg by ity of CR tablet 12:02: mouth [place] 37 every 8 Medical (eight) Branch hours as needed for Pain. docusate 2022-0 Yes 100mg Take 100 Univ ers 100 mg 1-03 mg by ity of capsule 12:02: mouth [place] [address] daily. Medical Branch polyethylen 2022-0 Yes Take by Uni vers e glycol 1-03 mouth. ity of 3350 12:02: [place] (M[facility]ALAX 37 Medical ORAL) Branch furosemide 3-0 Yes 20mg Take 20 mg U nivers 20 mg 1-03 by mouth ity of tablet 12:02: in the [place] [address] morning. Medical Branch famotidine 2022-0 Yes 40mg Take 40 mg U nivers 40 mg 1-03 by mouth ity of tablet 12:02: in the [place] [address] morning. Medical Branch DILTIAZEM 3-0 Yes 120mg Take 120 Uni vers HCL ORAL 1-03 mg by ity of 12:02: mouth [place] [address] every 8 Medical (eight) Branch hours. cetirizine 3-0 Yes 10mg Take 10 mg U nivers 10 mg 1-03 by mouth ity of tablet 12:02: daily. [place] [address] Medical Branch propranoloL 2022-0 Yes 40mg Take 40 mg Univers 40 mg 1-03 by mouth 3 ity of tablet 12:02: (three) [place] [address] times Medical daily. Branch pyridoxine, 2022-0 Yes 25mg Take 25 mg Univers VITAMIN 1-03 by mouth ity of B-6, 25 mg 12:02: daily. [place] [address] Medical Branch acetaminoph 2022-0 Yes 650mg Take 650 U nivers en 650 mg 1-03 mg by ity of CR tablet 12:02: mouth [place] [address] every 8 Medical (eight) Branch hours as needed for Pain. docusate 2022-0 Yes 100mg Take 100 Univ ers 100 mg 1-03 mg by ity of capsule 12:02: mouth [place] [address] daily. Medical Branch polyethylen 2022-0 Yes Take by Uni vers e glycol 1-03 mouth. ity of 3350 12:02: [place] (M[facility] 37 Medical ORAL) Branch furosemide 2022-0 Yes 20mg Take 20 mg U nivers 20 mg 1-03 by mouth ity of tablet 12:02: in the [place] [address] morning. Medical Branch famotidine 2022-0 Yes 40mg Take 40 mg U nivers 40 mg 1-03 by mouth ity of tablet 12:02: in the [place] [address] morning. Medical Branch DILTIAZEM 2022-0 Yes 120mg Take 120 Uni vers HCL ORAL 1-03 mg by ity of 12:02: mouth [place] [address] every 8 Medical (eight) Branch hours. cetirizine 3-0 Yes 10mg Take 10 mg U nivers 10 mg 1-03 by mouth ity of tablet 12:02: daily. [place] [address] Medical Branch propranoloL 3-0 Yes 40mg Take 40 mg Univers 40 mg 1-03 by mouth 3 ity of tablet 12:02: (three) [place] 37 times Medical daily. Branch pyridoxine, 2022-0 Yes 25mg Take 25 mg Univers VITAMIN 1-03 by mouth ity of B-6, 25 mg 12:02: daily. [place] tablet 37 Medical Branch docusate 3-0 Yes 100mg Take 100 Univ ers 100 mg 1-03 mg by ity of capsule 12:02: mouth [place] [address] daily. Medical Branch polyethylen 2022-0 Yes Take by Uni vers e glycol 1-03 mouth. ity of 3350 12:02: [place] [facility] Branch furosemide 3-0 Yes 20mg Take 20 mg U nivers 20 mg 1-03 by mouth ity of tablet 12:02: in the [place] [address] morning. Medical Branch famotidine 3-0 Yes 40mg Take 40 mg U nivers 40 mg 1-03 by mouth ity of tablet 12:02: in the [place] [address] morning. Medical Branch DILTIAZEM 2022-0 Yes 120mg Take 120 Uni vers HCL ORAL 1-03 mg by ity of 12:02: mouth [place] [address] every 8 Medical (eight) Branch hours. cetirizine 2022-0 Yes 10mg Take 10 mg U nivers 10 mg 1-03 by mouth ity of tablet 12:02: daily. [place] [address] Medical Branch propranoloL 3-0 Yes 40mg Take 40 mg Univers 40 mg 1-03 by mouth 3 ity of tablet 12:02: (three) [place] [address] times Medical daily. Branch pyridoxine, 2022-0 Yes 25mg Take 25 mg Univers VITAMIN 1-03 by mouth ity of B-6, 25 mg 12:02: daily. [facility] 37 Medical Branch docusate 2022-0 Yes 100mg Take 100 Univ ers 100 mg 1-03 mg by ity of capsule 12:02: mouth [place] [address] daily. Medical Branch polyethylen 3-0 Yes Take by Uni vers e glycol 1-03 mouth. ity of 3350 12:02: [place] ([facility] 37 Medical ORAL) Branch furosemide 3-0 Yes 20mg Take 20 mg U nivers 20 mg 1-03 by mouth ity of tablet 12:02: in the [place] [address] morning. Medical Branch famotidine 3-0 Yes 40mg Take 40 mg U nivers 40 mg 1-03 by mouth ity of tablet 12:02: in the [place] [address] morning. Medical Branch DILTIAZEM 2022-0 Yes 120mg Take 120 Uni vers HCL ORAL 1-03 mg by ity of 12:02: mouth [place] [address] every 8 Medical (eight) Branch hours. cetirizine 3-0 Yes 10mg Take 10 mg U nivers 10 mg 1-03 by mouth ity of tablet 12:02: daily. [place] [address] Medical Branch propranoloL 3-0 Yes 40mg Take 40 mg Univers 40 mg 1-03 by mouth 3 ity of tablet 12:02: (three) [place] [address] times Medical daily. Branch pyridoxine, 2022-0 Yes 25mg Take 25 mg Univers VITAMIN 1-03 by mouth ity of B-6, 25 mg 12:02: daily. [place] tablet 37 Medical Branch docusate 2022-0 Yes 100mg Take 100 Univ ers 100 mg 1-03 mg by ity of capsule 12:02: mouth [place] [address] daily. Medical Branch polyethylen 2022-0 Yes Take by Uni vers e glycol 1-03 mouth. ity of 3350 12:02: [place] (MIRALAX 37 Medical ORAL) Branch furosemide 2022-0 Yes 20mg Take 20 mg U nivers 20 mg 1-03 by mouth ity of tablet 12:02: in the [place] [address] morning. Medical Branch famotidine 2022-0 Yes 40mg Take 40 mg U nivers 40 mg 1-03 by mouth ity of tablet 12:02: in the [place] [address] morning. Medical Branch DILTIAZEM 2022-0 Yes 120mg Take 120 Uni vers HCL ORAL 1-03 mg by ity of 12:02: mouth [place] [address] every 8 Medical (eight) Branch hours. propranoloL 3-0 Yes 40mg Take 40 mg [facility] 40 mg 1-03 by mouth 3 ity of tablet 12:02: (three) [place] [address] times Medical daily. Branch pyridoxine, 2022-0 Yes 25mg Take 25 mg [facility] VITAMIN 1-03 by mouth ity of B-6, 25 mg 12:02: daily. [place] tablet 37 Medical Branch docusate 3-0 Yes 100mg Take 100 Univ ers 100 mg 1-03 mg by ity of capsule 12:02: mouth [place] [address] daily. Medical Branch polyethylen 2022-0 Yes Take by Uni vers e glycol 1-03 mouth. ity of 3350 12:02: [place] (MIRALAX 37 Medical ORAL) Branch furosemide Yes 20mg Take 20 mg U nivers 20 mg 1-03 by mouth ity of tablet 12:02: in the [place] [address] morning. Medical Branch famotidine Yes 40mg Take 40 mg U nivers 40 mg 1-03 by mouth ity of tablet 12:02: in the [place] [address] morning. Medical Branch DILTIAZEM Yes 120mg Take 120 Uni vers HCL ORAL 1-03 mg by ity of 12:02: mouth [place] 37 every 8 Medical (eight) Branch hours. cetirizine 2021-02 Yes 10mg Take 10 mg U nivers 10 mg 1-24 by mouth ity of tablet 16:58: daily. [place] [address] Medical Branch propranoloL 2021-02 Yes 40mg Take 40 mg [facility] 40 mg 1-24 by mouth 3 ity of tablet 16:58: (three) [place] 27 times Medical daily. Branch pyridoxine, 2021-02 Yes 25mg Take 25 mg [facility] VITAMIN 1-24 by mouth ity of B-6, 25 mg 16:58: daily. [place] [facility] 27 Medical Branch acetaminoph 2021-02 Yes 650mg Take 650 U nivers en 650 mg 1-24 mg by ity of CR tablet 16:58: mouth [place] 27 every 8 Medical (eight) Branch hours as needed for Pain. docusate 2021-02 Yes 100mg Take 100 Univ ers 100 mg 1-24 mg by ity of capsule 16:58: mouth [place] 27 daily. Medical Branch HYDROcodone 2021-02 Yes 1{tbl} Take 1 Un berta -acetaminop 1-24 tablet by ity of hen 5-325 16:58: mouth [place] mg tablet 27 every 6 Medical (six) Branch hours as needed. polyethylen 2021-02 Yes Take by Uni vers e glycol 1-24 mouth. ity of 3350 16:58: [place] (MIRALAX 27 Medical ORAL) Branch furosemide 2021-02 Yes 20mg Take 20 mg U nivers (LASIX) 20 1-24 by mouth ity o f mg tablet 16:58: in the [place] [address] morning. Medical Branch MELOXICAM 2021-02 Yes 15mg Take 15 mg [facility] ORAL 1-24 by mouth. ity of 16:58: [place] [address] Medical Branch famotidine 2021-02 Yes 40mg Take 40 mg U nivers 40 mg 1-24 by mouth ity of tablet 16:58: in the [place] [address] morning. Medical Branch DILTIAZEM 2021-02 Yes 120mg Take 120 Uni vers HCL ORAL 1-24 mg by ity of 16:58: mouth [place] 27 every 8 Medical (eight) Branch hours. cetirizine 2021-02 Yes 10mg Take 10 mg U nivers 10 mg 1-24 by mouth ity of tablet 16:58: daily. [place] [address] Medical Branch propranoloL 2021-02 Yes 40mg Take 40 mg [facility] 40 mg 1-24 by mouth 3 ity of tablet 16:58: (three) [place] [address] times Medical daily. Branch pyridoxine, 2021-02 Yes 25mg Take 25 mg [facility] VITAMIN 1-24 by mouth ity of B-6, 25 mg 16:58: daily. [place] [address] Medical Branch acetaminoph 2021-02 Yes 650mg Take 650 U nivers en 650 mg 1-24 mg by ity of CR tablet 16:58: mouth [place] [address] every 8 Medical (eight) Branch hours as needed for Pain. docusate 2021-02 Yes 100mg Take 100 Univ ers 100 mg 1-24 mg by ity of capsule 16:58: mouth [place] [address] daily. Medical Branch HYDROcodone 2021-02 Yes 1{tbl} Take 1 Un berta -acetaminop 1-24 tablet by ity of hen 5-325 16:58: mouth [place] mg tablet 27 every 6 Medical (six) Branch hours as needed. polyethylen 2021-02 Yes Take by Uni vers e glycol 1-24 mouth. ity of 3350 16:58: [place] (MIRALAX 27 Medical ORAL) Branch furosemide 2021-02 Yes 20mg Take 20 mg U nivers (LASIX) 20 1-24 by mouth ity o f mg tablet 16:58: in the [place] [address] morning. Medical Branch MELOXICAM 2021-02 Yes 15mg Take 15 mg [facility] ORAL 1-24 by mouth. ity of 16:58: [place] [address] Medical Branch famotidine 2021-02 Yes 40mg Take 40 mg U nivers 40 mg 1-24 by mouth ity of tablet 16:58: in the [place] [address] morning. Medical Branch DILTIAZEM 2021-02 Yes 120mg Take 120 Uni vers HCL ORAL 1-24 mg by ity of 16:58: mouth [place] [address] every 8 Medical (eight) Branch hours. cetirizine 2021-02 Yes 10mg Take 10 mg U nivers 10 mg 1-24 by mouth ity of tablet 16:58: daily. [place] [address] Medical Branch propranoloL 2021-02 Yes 40mg Take 40 mg Univers 40 mg 1-24 by mouth 3 ity of tablet 16:58: (three) [place] [address] times Medical daily. Branch pyridoxine, 2021-02 Yes 25mg Take 25 mg [facility] VITAMIN 1-24 by mouth ity of B-6, 25 mg 16:58: daily. [facility] 27 Medical Branch acetaminoph 2021-02 Yes 650mg Take 650 U nivers en 650 mg 1-24 mg by ity of CR tablet 16:58: mouth [place] [address] every 8 Medical (eight) Branch hours as needed for Pain. docusate 2021-02 Yes 100mg Take 100 Univ ers 100 mg 1-24 mg by ity of capsule 16:58: mouth [place] [address] daily. Medical Branch HYDROcodone 2021-02 Yes 1{tbl} Take 1 Un berta -acetaminop 1-24 tablet by ity of hen 5-325 16:58: mouth [place] mg tablet 27 every 6 Medical (six) Branch hours as needed. polyethylen 2021-02 Yes Take by Uni vers e glycol 1-24 mouth. ity of 3350 16:58: [place] (MIRALAX 27 Medical ORAL) Branch furosemide 2021-02 Yes 20mg Take 20 mg U nivers (LASIX) 20 1-24 by mouth ity o f mg tablet 16:58: in the [place] [address] morning. Medical Branch MELOXICAM 2021-02 Yes 15mg Take 15 mg [facility] ORAL 1-24 by mouth. ity of 16:58: [place] [address] Medical Branch famotidine 2021-02 Yes 40mg Take 40 mg U nivers 40 mg 1-24 by mouth ity of tablet 16:58: in the [place] [address] morning. Medical Branch DILTIAZEM 2021-02 Yes 120mg Take 120 Uni vers HCL ORAL 1-24 mg by ity of 16:58: mouth [place] [address] every 8 Medical (eight) Branch hours. cetirizine 2021-02 Yes 10mg Take 10 mg U nivers 10 mg 1-24 by mouth ity of tablet 16:58: daily. [place] [address] Medical Branch propranoloL 2021-02 Yes 40mg Take 40 mg Univers 40 mg 1-24 by mouth 3 ity of tablet 16:58: (three) [place] 27 times Medical daily. Branch pyridoxine, 2021-02 [...] mg by ity of capsule 16:58: mouth [place] 27 daily. Medical Branch HYDROcodone 2021-02 Yes 1{tbl} Take 1 Un berta -acetaminop 1-24 tablet by ity of hen 5-325 16:58: mouth [place] tablet 27 every 6 Medical (six) Branch hours as needed. polyethylen 2021-02 Yes Take by Uni vers e glycol 1-24 mouth. ity of 3350 16:58: [place] (MIRALAX 27 Medical ORAL) Branch furosemide 2021-02 Yes 20mg Take 20 mg U nivers (LASIX) 20 1-24 by mouth ity o f mg tablet 16:58: in the [place] [address] morning. Medical Branch MELOXICAM 2021-02 Yes 15mg Take 15 mg [facility] ORAL 1-24 by mouth. ity of 16:58: [place] [address] Medical Branch famotidine 2021-02 Yes 40mg Take 40 mg U nivers 40 mg 1-24 by mouth ity of tablet 16:58: in the [place] [address] morning. Medical Branch DILTIAZEM 2021-02 Yes 120mg Take 120 Uni vers HCL ORAL 1-24 mg by ity of 16:58: mouth [place] 27 every 8 Medical (eight) Branch hours. cetirizine 2021-02 Yes 10mg Take 10 mg U nivers 10 mg 1-24 by mouth ity of tablet 16:58: daily. [place] [address] Medical Branch propranoloL 2021-02 Yes 40mg Take 40 mg [facility] 40 mg 1-24 by mouth 3 ity of tablet 16:58: (three) [place] [address] times Medical daily. Branch pyridoxine, 2021-02 Yes 25mg Take 25 mg [facility] VITAMIN 1-24 by mouth ity of B-6, 25 mg 16:58: daily. [place] tablet 27 Medical Branch acetaminoph 2021-02 Yes 650mg Take 650 U nivers en 650 mg 1-24 mg by ity of CR tablet 16:58: mouth [place] [address] every 8 Medical (eight) Branch hours as needed for Pain. docusate 2021-02 Yes 100mg Take 100 Univ ers 100 mg 1-24 mg by ity of capsule 16:58: mouth [place] 27 daily. Medical Branch HYDROcodone 2021-02 Yes 1{tbl} Take 1 Un berta -acetaminop 1-24 tablet by ity of hen 5-325 16:58: mouth [place] tablet 27 every 6 Medical (six) Branch hours as needed. polyethylen 2021-02 Yes Take by Uni vers e glycol 1-24 mouth. ity of 3350 16:58: [place] (MIRALAX 27 Medical ORAL) [place] furosemide 2021-02 Yes 20mg Take 20 mg U nivers (LASIX) 20 1-24 by mouth ity o f mg tablet 16:58: in the [place] [address] morning. Medical Branch MELOXICAM 2021-02 Yes 15mg Take 15 mg [facility] ORAL 1-24 by mouth. ity of 16:58: [address] Branch famotidine 2021-02 Yes 40mg Take 40 mg U nivers 40 mg 1-24 by mouth ity of tablet 16:58: in the [place] [address] morning. Medical Branch DILTIAZEM 2021-02 Yes 120mg Take 120 Uni vers HCL ORAL 1-24 mg by ity of 16:58: mouth [place] 27 every 8 Medical (eight) Branch hours. MELOXICAM 2021-02 Yes 15mg Take 15 mg [facility] ORAL 1-24 by mouth. ity of 16:58: [address] Branch MELOXICAM 2021-02 Yes 15mg Take 15 mg [facility] ORAL 1-24 by mouth. ity of 16:58: [address] Branch MELOXICAM 2021-02 Yes 15mg Take 15 mg [facility] ORAL 1-24 by mouth. ity of 16:58: [address] Branch MELOXICAM 2021-02 Yes 15mg Take 15 mg [facility] ORAL 1-24 by mouth. ity of 16:58: [place] 27 Medical Branch ondansetron 2021-02 Yes 4mg 4 mg, Unive rs (ZOFRAN-ODT 03-01 Oral, ity of ) 14:35: Q6HPRN, [place] disintegrat 55 Starting Medi landry ing tablet on Tue Branch 4 mg 12/30/21 at 0835, Until Discontinu ed, Routine, Nausea and Vomiting (N/V) HYDROcodone 2021-02- No 4647 1{tbl} Take 1 U nivers -acetaminop 03-01 tablet by it y of hen (NORCO) 00:00: 05:59 mouth [place] 5-325 mg 00 :00 every 6 Medical tablet (six) Branch hours as needed for Pain (scale 7-10) for up to 7 days. Indication s: acute pain alum-mag 2021-02 Yes 30mL 30 mL, Univers hydroxide-s 22 Oral, TID, it y of imeth 20:00: First dose [place] (MAALOX 00 on [facility] 12/29/21 Branch MAG-AL at 1400, PLUS) Until 200-200-20 Discontinu mg/5 mL ed, suspension Routine 30 mL alum-mag 2021-02 Yes 30mL 30 mL, Univers hydroxide-s 22 Oral, TID, it y of imeth 20:00: First dose [place] (MAALOX 00 on [facility] 12/29/21 Branch MAG-AL at 1400, PLUS) Until 200-200-20 Discontinu mg/5 mL ed, suspension Routine 30 mL acetaminoph 2021-02 Yes 650mg 650 mg, Un b[facility] en -22 Oral, Q6H, ity of (TYLENOL) 18:00: First dose [place] tablet 650 00 (after Medical mg last Branch modificati on) on Tue12/29/21 at 1200, Until Discontinu ed, Routine acetaminoph 2021-02 Yes 650mg 650 mg, Un b[facility] en -22 Oral, Q6H, ity of (TYLENOL) 18:00: First dose [place] tablet 650 00 (after Medical mg last Branch modificati on) on Tue12/29/21 at 1200, Until Discontinu ed, Routine HYDROmorpho 2021-02- No Patient Un berta ne 02-28 [place] ity of (DILAUDID) 16:30: 16:29 Dose: 0.2 [place] 10 mg/50 mL 00 :00 mg
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
Basal Rate: 0 mg/hr<BR&g t;Four Hour Dose Limit: 4 mg
IV Infusion, 50 mL, CONTINUOUS , Starting on Tue12/29/21 at 1030, Until Tue12/31/21 at 1029 HYDROmorpho 2021-02- No Patient Un berta ne 02-28 [place] ity of (DILAUDID) 16:30: 14:36 Dose: 0.2 [place] 10 mg/50 mL 00 :58 mg
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
Basal Rate: 0 mg/hr<BR&g t;Four Hour Dose Limit: 4 mg
IV Infusion, 50 mL, CONTINUOUS , Starting on Tue12/29/21 at 1030, Until Tue12/30/21 at 0836 HYDROcodone 2021-02 Yes 1{tbl} 1 tablet, Univers -acetaminop 02-28 Oral, ity of hen (NORCO) 15:24: Q4HPRN, [place] 10-325 mg 46 Starting Medica l tablet 1 on Tue Branch tablet 12/29/21 at 0924, Until Discontinu ed, Routine, Pain (scale 7-10) HYDROcodone 2021-02 Yes 1{tbl} 1 tablet, Univers -acetaminop 02-28 Oral, ity of hen (NORCO) 15:24: Q4HPRN, [place] 10-325 mg 46 Starting Medica l tablet 1 on Tue Branch tablet 12/29/21 at 0924, Until Discontinu ed, Routine, Pain (scale 7-10) cyclobenzap 2021-02 Yes 5mg 5 mg, Unive rs rine 02-28 Oral, TID, ity of (FLEXERIL) 15:15: First dose [place] tablet 5 mg 00 on Tue Medica l 12/29/21 Branch at 0915, Until Discontinu ed, Routine cyclobenzap 2021-02 Yes 5mg 5 mg, Unive rs rine 02-28 Oral, TID, ity of (FLEXERIL) 15:15: First dose [place] tablet 5 mg 00 on [facility] 12/29/21 Branch at 0915, Until Discontinu ed, Routine enoxaparin 2021-02 Yes 40mg 40 mg, Unive rs (LOVENOX) 02-28 Subcutaneo ity of injection 15:00: [place], DAILY, [place] 40 mg 00 First dose Medical on [facility] 12/29/21 at 0900, Until Discontinu ed, Routine furosemide 2021-02 Yes 20mg 20 mg, Unive rs (LASIX) 02-28 Oral, ity of tablet 20 15:00: DAILY, [place] mg 00 First dose Medical on [facility] 12/29/21 at 0900, Until Discontinu ed, Routine famotidine 2021-02 Yes 40mg 40 mg, Unive rs (PEPCID AC) 02-28 Oral, ity of tablet 40 15:00: DAILY, [place] mg 00 First dose Medical on [facility] 12/29/21 at 0900, Until Discontinu ed, Routine enoxaparin 2021-02 Yes 40mg 40 mg, Unive rs (LOVENOX) 02-28 Subcutaneo ity of injection 15:00: us, DAILY, [place] 40 mg 00 First dose Medical on [facility] 12/29/21 at 0900, Until Discontinu ed, Routine furosemide 2021-02 Yes 20mg 20 mg, Unive rs (LASIX) 02-28 Oral, ity of tablet 20 15:00: DAILY, [place] mg 00 First dose Medical on [facility] 12/29/21 at 0900, Until Discontinu ed, Routine famotidine 2021-02 Yes 40mg 40 mg, Unive rs (PEPCID AC) 02-28 Oral, ity of tablet 40 15:00: DAILY, [place] mg 00 First dose Medical on [facility] 12/29/21 at 0900, Until Discontinu ed, Routine atorvastati 2021-02 Yes 80mg 80 mg, Univ ers n (LIPITOR) 02-28 Oral, QHS, it y of tablet 80 03:00: First dose [place] mg 00 on [facility] 12/28/21 Branch at 2100, Until Discontinu ed, Routine amitriptyli 2021-02 Yes 100mg 100 mg, Un berta ne (ELAVIL) - Oral, QHS, it y of tablet 100 03:00: First dose [place] mg 00 on [facility] 12/28/21 Branch at 2100, Until Discontinu ed, Routine atorvastati 2021-02 Yes 80mg 80 mg, Univ ers n (LIPITOR) - Oral, QHS, it y of tablet 80 03:00: First dose [place] mg 00 on [facility] 12/28/21 Branch at 2100, Until Discontinu ed, Routine amitriptyli 2021-02 Yes 100mg 100 mg, Un berta ne (ELAVIL) - Oral, QHS, it y of tablet 100 03:00: First dose [place] mg 00 on [facility] 12/28/21 Branch at 2100, Until Discontinu ed, Routine levETIRAcet 2021-02 Yes 1000mg 1,000 mg, Univers am (KEPPRA) 02-28 Oral, BID, it y of tablet 02:00: First dose [place] 1,000 mg 00 on [facility] 12/28/21 Branch at 2000, Until Discontinu ed, Routine hydrOXYchlo 2021-02 Yes 200mg 200 mg, Un b[facility] roQUINE - Oral, BID, ity of (PLAQUENIL) 02:00: First dose [place] tablet 200 00 on [facility] 12/28/21 Branch at 2000, Until Discontinu ed, Routine
Indicatio n: Rheumatic disorder levETIRAcet 2021-02 Yes 1000mg 1,000 mg, Univers am (KEPPRA) 02-28 Oral, BID, it y of tablet 02:00: First dose [place] 1,000 mg 00 on [facility] 12/28/21 Branch at 2000, Until Discontinu ed, Routine hydrOXYchlo 2021-02 Yes 200mg 200 mg, Un b[facility] roQUINE -22 Oral, BID, ity of (PLAQUENIL) 02:00: First dose [place] tablet 200 00 on [facility] 12/28/21 Branch at 2000, Until Discontinu ed, Routine
Indicatio n: Rheumatic disorder HYDROmorpho 2021-02- No Patient Un berta ne 02-27 [place] ity of (DILAUDID) 23:30: 13:39 Dose: 0.2 [place] 10 mg/50 mL 00 :30 mg
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
Basal Rate: 0 mg/hr<BR&g t;Four Hour Dose Limit: 4 mg
IV Infusion, 50 mL, CONTINUOUS , Starting on Tue12/28/21 at 1730, Until Tue12/29/21 at 0739 HYDROmorpho 2021-02- No Patient Un berta ne 02-27 [place] ity of (DILAUDID) 23:30: 13:39 Dose: 0.2 [place] 10 mg/50 mL 00 :30 mg
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
Basal Rate: 0 mg/hr<BR&g t;Four Hour Dose Limit: 4 mg
IV Infusion, 50 mL, CONTINUOUS , Starting on Tue12/28/21 at 1730, Until Tue12/29/21 at 0739 naloxone 2021-02 Yes .1mg 0.1 mg, Univer s (NARCAN) 1- Slow IV ity of injection 22:21: Push, [place] 0.1 [facility] Starting on Tue12/28/21 at 1621, Until Discontinu ed, Routine naloxone 2021-02 Yes .1mg 0.1 mg, Univer s (NARCAN) 02-27 Slow IV ity of injection 22:21: Push, [place] 0.1 mg 08 [facility] [place] Starting on Tue12/28/21 at 1621, Until Discontinu ed, Routine propranoloL 2021-02 Yes 40mg 40 mg, Univ ers (INDERAL) 1-21 Oral, TID, ity of tablet 40 20:00: First dose [place] mg 00 on [facility] 12/28/21 Branch at 1400, Until Discontinu ed, Routine diltiazem 2021-02 Yes 120mg 120 mg, Univ ers (CARDIZEM) 1-21 Oral, Q8H, ity of tablet 120 20:00: First dose [place] mg 00 on [facility] 12/28/21 Branch at 1400, Until Discontinu ed propranoloL 2021-02 Yes 40mg 40 mg, [facility] ers (INDERAL) 1-21 Oral, TID, ity of tablet 40 20:00: First dose [place] mg 00 on [facility] 12/28/21 Branch at 1400, Until Discontinu ed, Routine diltiazem 2021-02 Yes 120mg 120 mg, [facility] ers (CARDIZEM) 1-21 Oral, Q8H, ity of tablet 120 20:00: First dose [place] mg 00 on [facility] 12/28/21 Branch at 1400, Until Discontinu ed [...] 4 57 Starting Medi landry mg on Tue12/28/21 at 1254, Until Discontinu ed, Routine, Nausea and Vomiting (N/V) sugammadex 2021-02- No IV [place], Un berta (BRIDION) 02-27 ONCE INTRA ity of injection 18:42: 19:04 PROCEDURE, [place] 00 :26 Starting Medical on Tue12/28/21 at 1242, Until Tue12/28/21 at 1304, Routine, Intra-op ondansetron 2021-02- No Slow IV Un berta (ZOFRAN 02-27 Push, ONCE ity o f (PF)) 18:37: 19:04 INTRA [place] injection 00 :26 PROCEDURE, Medi landry Starting Branch on Tue12/28/21 at 1237, Until 11/21/22 at 1304, Routine, Intra-op PHENYLephri 2021-02- No Slow IV Un berta ne 1000 02-27 Push, ity of mcg/10 mL 18:10: 19:04 CONTINUOUS [place] in 0.9% 00 : PRN, Medical NaCl Starting Branch syringe on Tue12/28/21 at 1210, Until Tue12/28/21 at 1304, Routine, Intra-op PHENYLephri 2021-02- No Slow IV Un berta ne 1000 02-27 Push, ONCE ity o f mcg/10 mL 17:38: 19:04 INTRA [place] in 0.9% 00 : PROCEDURE, Medica l NaCl Starting Branch syringe on Tue12/28/21 at 1138, Until Tue12/28/21 at 1304, Routine, Intra-op furosemide 2021-02 Yes 20mg Take 20 mg U nivers (LASIX) 20 02-27 by mouth ity o f mg tablet 17:34: in the [place] [address] morning. Medical Branch MELOXICAM 2021-02 Yes 15mg Take 15 mg [facility] ORAL -21 by mouth. ity of 17:34: [place] [address] Medical Branch famotidine 2021-02 Yes 40mg Take 40 mg U nivers 40 mg 21 by mouth ity of tablet 17:34: in the [place] [address] morning. Medical Branch DILTIAZEM 2021-02 Yes 120mg Take 120 Uni vers HCL ORAL 1-21 mg by ity of 17:34: mouth [place] [address] every 8 Medical (eight) Branch hours. ketamine 2021-02- No Intravenou Un berta (KETALAR) 02-27 s, ONCE ity of injection 16:52: 19:04 INTRA [place] 00 :26 PROCEDURE, Medical Starting Branch on Tue12/28/21 at 1052, Until Tue12/28/21 at 1304, Routine, Intra-op bupivacaine 2021-02- No PRN, Unive rs (preserv 02-27 Starting ity of free) 15:47: 19:03 on Tue [place] (SENSORCAIN 00 :19 12/28/21 Medi landry E MPF) 0.25 at 0947, Bran ch % (2.5 Intra-op mg/mL) 22 mL, bupivacaine liposome (PF) (EXPAREL (PF)) 1.3 % (13.3 mg/mL) 266 mg, NaCl 0.9% (NS) 50 mL HYDROmorphO 2021-02- No Slow IV Un berta ne 02-27 Push, ONCE ity of (DILAUDID) 14:03: 19:04 INTRA [place] injection 00 :26 PROCEDURE, Medi landry Starting Branch on Tue12/28/21 at 0803, Until Tue12/28/21 at 1304, Routine, Intra-op bupivacaine 2021-02- No PRN, Unive rs (preserv 02-27 Starting ity of free) 14:03: 19:03 on Tue [place] (SENSORCAIN 00 :19 12/28/21 [facility] E MPF) 0.25 at 0803, Bran ch % (2.5 Until Mon mg/mL) 12/28/21 injection at 1303, Routine, Intra-op dexamethaso 2021-02- No IV [place], U nivers ne 02-27 ONCE INTRA ity of (DECADRON 13:58: 19:04 PROCEDURE, [place] PHOSPHATE) 00 :26 Starting Medic al injection on Tue Branch 12/28/21 at 0758, Until Tue12/28/21 at 1304, Routine, Intra-op midazolam 2021-02- No IV [place], Uni vers (VERSED) 02-27 ONCE INTRA ity of injection 13:48: 19:04 PROCEDURE, [place] 00 :26 Starting Medical on Tue Branch 12/28/21 at 0748, Until Tue12/28/21 at 1304, Routine, Intra-op ceFAZolin 2021-02- No Slow IV Univ ers (ANCEF) 02-27 Push, ONCE ity o f injection 13:32: 19:04 INTRA [place] 00 :26 PROCEDURE, Medical Starting Branch on Tue12/28/21 at 0732, Until Tue12/28/21 at 1304, SULAIMAN, Intra-op rocuronium 2021-02- No IV [place], Un berta (ZEMURON) 02-27 ONCE INTRA ity of injection 13:23: 19:04 PROCEDURE, [place] 00 :26 Starting Medical on Mon Branch 12/28/21 at 0723, Until Tue12/28/21 at 1304, Routine, Intra-op propofoL IV 2021-02- No Slow IV Un berta infusion 02-27 Push, ONCE ity of 13:22: 19:04 INTRA [place] 00 :26 PROCEDURE, Medical [...] PF 2021-02- No Intravenou Univers (SUBLIMAZE 02-27 s, ONCE ity o f (PF)) 13:22: 19:04 INTRA [place] injection 00 :26 PROCEDURE, Medi landry Starting Branch on Tue12/28/21 at 0722, Until Tue12/28/21 at 1304, Routine, Intra-op lactated 2021-02- No IV Univers ringers IV 02-27 Infusion, ity of infusion 13:19: 19:04 CONTINUOUS [place] 00 :26 PRN, Medical Starting Branch on Tue12/28/21 at 0719, Until Tue12/28/21 at 1304, Routine, Intra-op furosemide 2021-02 Yes 20mg Take 20 mg U nivers (LASIX) 20 02-27 by mouth ity o f mg tablet 13:03: in the [place] [address] morning. Medical Branch MELOXICAM 2021-02 Yes 15mg Take 15 mg [facility] ORAL -21 by mouth. ity of 13:03: [place] [address] Medical Branch famotidine 2021-02 Yes 40mg Take 40 mg U nivers 40 mg - by mouth ity of tablet 13:03: in the [place] [address] morning. Medical Branch DILTIAZEM 2021-02 Yes 120mg Take 120 Uni vers HCL ORAL 1-21 mg by ity of 13:03: mouth [place] [address] every 8 Medical (eight) Branch hours. cetirizine 2021-02 Yes 10mg Take 10 mg U nivers 10 mg 1-21 by mouth ity of tablet 12:56: daily. [place] [address] Medical Branch propranoloL 2021-02 Yes 40mg Take 40 mg Univers 40 mg 1-21 by mouth 3 ity of tablet 12:56: (three) [place] 34 times Medical daily. Branch pyridoxine, 2021-02 Yes 25mg Take 25 mg Univers VITAMIN 1-21 by mouth ity of B-6, 25 mg 12:56: daily. [place] [address] Medical Branch acetaminoph 2021-02 Yes 650mg Take [...] glycol 1-21 mouth. ity of 3350 12:56: [place] (MIRALAX 34 Medical ORAL) Branch cetirizine 2021-02 Yes 10mg Take 10 mg U nivers 10 mg 1-21 by mouth ity of tablet 12:56: daily. [place] [address] Medical Branch propranoloL 2021-02 Yes 40mg Take 40 mg Univers 40 mg 1-21 by mouth 3 ity of tablet 12:56: (three) [place] 34 times Medical daily. Branch pyridoxine, 2021-02 Yes 25mg Take 25 mg Univers VITAMIN 1-21 by mouth ity of B-6, 25 mg 12:56: daily. [place] [address] Medical Branch acetaminoph 2021-02 Yes 650mg Take [...] glycol 1-21 mouth. ity of 3350 12:56: [place] (MIRALAX 34 Medical ORAL) Branch heparin 2021-02- No 5000U 5,000 Univers (porcine) -12-28 Units, ity of injection 12:38: 13:06 Subcutaneo [place] 5,000 Units 00 :00 us, ONCE, Med ical 1 dose, On Branch 12/28/21 at 0645, SULAIMAN heparin 2021-02- No 5000U 5,000 Univers (porcine) -12-28 Units, ity of injection 12:38: 13:06 Subcutaneo [place] 5,000 Units 00 :00 us, ONCE, Med ical 1 dose, On Branch Tue12/28/21 at 0645, SULAIMAN DILTIAZEM 2021-02 Yes 120mg Take 120 Uni vers HCL ORAL 1-16 mg by ity of 18:00: mouth [place] 36 every 8 Medical (eight) Branch hours. DILTIAZEM 2021-02 Yes 120mg Take 120 Uni vers HCL ORAL 1-16 mg by ity of 18:00: mouth [place] 36 every 8 Medical (eight) Branch hours. DILTIAZEM 2021-02 Yes 120mg Take 120 Uni vers HCL ORAL 1-16 mg by ity of 18:00: mouth [place] 36 every 8 Medical (eight) Branch hours. MELOXICAM 2021-02 Yes 15mg Take 15 mg [facility] ORAL 1-16 by mouth. ity of 17:54: 18 Medical Branch famotidine 2021-02 Yes 40mg Take 40 mg U nivers 40 mg 1-16 by mouth ity of tablet 17:54: in the 18 morning. Medical Branch MELOXICAM 2021-02 Yes 15mg Take 15 mg Un [facility] ORAL 1-16 by mouth. ity of 17:54: 18 Medical Branch famotidine 2021-02 Yes 40mg Take 40 mg U nivers 40 mg 1-16 by mouth ity of tablet 17:54: in the [place] 18 morning. Medical Branch MELOXICAM 2021-02 Yes 15mg Take 15 mg Un [facility] ORAL 1-16 by mouth. ity of 17:54: [place] 18 Medical Branch famotidine 2021-02 Yes 40mg Take 40 mg U nivers 40 mg 1-16 by mouth ity of tablet 17:54: in the 18 morning. Medical Branch pyridoxine, 2021-02 Yes [...] by mouth ity of tablet 16:47: daily. [place] [address] Medical Branch acetaminoph 2021-02 Yes 650mg Take [...] glycol 1-16 mouth. ity of 3350 16:47: [place] (MIRALAX 56 Medical ORAL) Branch cetirizine 2021-02 Yes 10mg Take 10 mg U nivers 10 mg 1-16 by mouth ity of tablet 16:47: daily. [place] [address] Medical Branch acetaminoph 2021-02 Yes 650mg Take [...] glycol 1-16 mouth. ity of 3350 16:47: [place] (MIRALAX 56 Medical ORAL) Branch cetirizine 2021-02 Yes 10mg Take 10 mg U nivers 10 mg 1-16 by mouth ity of tablet 16:47: daily. [place] [address] Medical Branch acetaminoph 2021-02 Yes 650mg Take [...] glycol 1-16 mouth. ity of 3350 16:47: [place] (MIRALAX 56 Medical ORAL) Branch cetirizine Yes 10mg Take 10 mg U nivers 10 mg 8-23 by mouth ity of tablet 15:02: daily. [place] [address] Medical Branch propranoloL 2022-0 Yes 40mg Take [...] glycol 8-23 mouth. ity of 3350 15:02: [place] (MIRALAX 10 Medical ORAL) Branch cetirizine 2021-0 Yes 10mg Take 10 mg U nivers 10 mg 8-23 by mouth ity of tablet 15:02: daily. [place] 10 Medical Branch propranoloL 2021-0 Yes 40mg [...] glycol 8-23 mouth. ity of 3350 15:02: [place] (MIRALAX 10 Medical ORAL) Branch cetirizine 2021-0 Yes 10mg Take 10 mg U nivers 10 mg 8-23 by mouth ity of tablet 15:02: daily. [place] 10 Medical Branch propranoloL 2-0 Yes 40mg Take 40 mg Univers 40 mg 8-23 by mouth 3 ity of tablet 15:02: (three) [place] 10 times Medical daily. Branch acetaminoph 2-0 Yes 650mg Take 650 U nivers en 650 mg 8-23 mg by ity of CR tablet 15:02: mouth [place] 10 every 8 Medical (eight) Branch hours as needed for Pain. docusate 2-0 Yes 100mg Take 100 Univ ers 100 [...] by mouth ity of tablet 15:02: daily. [place] [address] Medical Branch propranoloL 2021-0 Yes 40mg Take 40 mg Univers 40 mg 8-23 by mouth 3 ity of tablet 15:02: (three) [place] 10 times Medical daily. Branch acetaminoph 2021-0 Yes 650mg Take 650 U nivers en 650 mg 8-23 mg by ity of CR tablet 15:02: mouth [place] 10 every 8 Medical (eight) Branch hours as needed for Pain. docusate 2-0 Yes 100mg Take 100 Univ ers 100 [...] 15:02: [place] (MIRALAX 10 Medical ORAL) Branch propranoloL 2-0 Yes 40mg Take 40 mg Univers 40 mg 8-23 by mouth 3 ity of tablet 15:02: (three) [place] 10 times Medical daily. Branch propranoloL 2021-0 Yes 40mg Take 40 mg Univers 40 mg 8-23 by mouth 3 ity of tablet 15:02: (three) [place] 10 times Medical daily. Branch propranoloL 2021-0 Yes 40mg Take 40 mg Univers 40 mg 8-23 by mouth 3 ity of tablet 15:02: (three) [place] 10 times Medical daily. Branch pyridoxine, 0 Yes 25mg Take 25 mg Univers VITAMIN 5-27 by mouth ity of B-6, 25 mg 09:03: daily. [facility] [address] [facility] Branch pyridoxine, 0 Yes 25mg Take 25 mg Univers VITAMIN 5-27 by mouth ity of B-6, 25 mg 09:03: daily. [facility] [address] [facility] Branch pyridoxine, 0 Yes 25mg Take 25 mg Univers VITAMIN 5-27 by mouth ity of B-6, 25 mg 09:03: daily. [facility] [address] [facility] Branch pyridoxine, 0 Yes 25mg Take 25 mg Univers VITAMIN 5-27 by mouth ity of B-6, 25 mg 09:03: daily. [facility] [address] [facility] Branch LEVETIRACET 0 Yes TAKE 2 Univ [...] TABLETS BY ity of tablet 00:00: MOUTH [place] TWICE Medical DAILY Branch LEVETIRACET 2-0 Yes TAKE 2 Univ ers AM 500 mg 4-04 TABLETS BY ity of tablet 00:00: MOUTH [place] TWICE Medical DAILY Branch omeprazole 2022-0 Yes [id number] 40mg Take 1 Univers 40 mg 1-12 capsule by ity of capsule 00:00: mouth [place] (two) Medical times Branch daily. omeprazole 2022-0 Yes [id number] 40mg Take 1 Univers 40 mg 1-12 capsule by ity of capsule 00:00: mouth [place] (two) Medical times Branch daily. omeprazole 2022-0 Yes [id number] 40mg Take 1 Univers 40 mg 1-12 capsule by ity of capsule 00:00: [address] ([facility]) Medical times Branch daily. omeprazole 2-0 Yes [id number] 40mg Take 1 Univers 40 mg 1-12 capsule by ity of capsule 00:00: mouth [address] [place] [address] ([facility]) Medical times Branch daily. omeprazole 2-0 Yes [id number] 40mg Take 1 Univers 40 mg 1-12 capsule by ity of capsule 00:00: mouth [address] [place] [address] (two) Medical times Branch daily. omeprazole 2022-0 Yes [id number] 40mg Take 1 Univers 40 mg 1-12 capsule by ity of capsule 00:00: mouth [address] [place] [address] (two) Medical times Branch daily. omeprazole 2-0 Yes [id number] 40mg Take 1 Univers 40 mg 1-12 capsule by ity of capsule 00:00: [address] (two) Medical times Branch daily. omeprazole 2022-0 Yes [id number] 40mg Take 1 Univers 40 mg 1-12 capsule by ity of capsule 00:00: mouth [address] [place] [address] (two) Medical times Branch daily. omeprazole 2022-0 Yes [id number] 40mg Take 1 Univers 40 mg 1-12 capsule by ity of capsule 00:00: mouth [address] [place] [address] (two) Medical times Branch daily. omeprazole 2022-0 Yes [id number] 40mg Take 1 Univers 40 mg 1-12 capsule by ity of capsule 00:00: mouth [address] [place] [address] (two) Medical times Branch daily. omeprazole 2022-0 Yes [id number] 40mg Take 1 Univers 40 mg 1-12 capsule by ity of capsule 00:00: mouth (two) Medical times Branch daily. omeprazole 2022-0 Yes [id number] 40mg Take 1 Univers 40 mg 1-12 capsule by ity of capsule 00:00: mouth (two) Medical times Branch daily. omeprazole 2022-0 Yes [id number] 40mg Take 1 Univers 40 mg 1-12 capsule by ity of capsule 00:00: mouth (two) Medical times Branch daily. omeprazole 2022-0 Yes [id number] 40mg Take 1 Univers 40 mg 1-12 capsule by ity of capsule 00:00: mouth (two) Medical times Branch daily. omeprazole 2022-0 Yes [id number] 40mg Take 1 Univers 40 mg 1-12 capsule by ity of capsule 00:00: mouth (two) Medical times Branch daily. omeprazole 2022-0 Yes [id number] 40mg Take 1 Univers 40 mg 1-12 capsule by ity of capsule 00:00: mouth [place] (two) Medical times Branch daily. omeprazole 2022-0 Yes [id number] 40mg Take 1 Univers 40 mg 1-12 capsule by ity of capsule 00:00: mouth [place] (two) Medical times Branch daily. omeprazole 2022-0 Yes [id number] 40mg Take 1 Univers 40 mg 1-12 capsule by ity of capsule 00:00: mouth (two) Medical times Branch daily. omeprazole 2022-0 Yes [id number] 40mg Take 1 Univers 40 mg 1-12 capsule by ity of capsule 00:00: mouth (two) Medical times Branch daily. omeprazole 2022-0 Yes [id number] 40mg Take 1 Univers 40 mg 1-12 capsule by ity of capsule 00:00: mouth [place] (two) Medical times Branch daily. omeprazole 2022-0 Yes [id number] 40mg Take 1 Univers 40 mg 1-12 capsule by ity of capsule 00:00: mouth (two) Medical times Branch daily. omeprazole 2022-0 Yes [id number] 40mg Take 1 Univers 40 mg 1-12 capsule by ity of capsule 00:00: mouth [place] (two) Medical times Branch daily. amitriptyli 2021-1 Yes 1{tbl} 1 tablet Univers ne 100 mg 2-11 at ity of tablet 00:00: bedtime. [place] 00 Takes Medical total of Branch 125mg amitriptyli 2021-1 Yes 1{tbl} 1 tablet Univers ne 100 mg 2-11 at ity of tablet 00:00: bedtime. [place] 00 Takes Medical total of Branch 125mg amitriptyli 2021-1 Yes 1{tbl} 1 tablet Univers ne 100 mg 2-11 at ity of tablet 00:00: bedtime. [place] 00 Takes Medical total of Branch 125mg amitriptyli 2021-1 Yes 1{tbl} 1 tablet Univers ne 100 mg 2-11 at ity of tablet 00:00: bedtime. [place] 00 Takes Medical total of Branch 125mg amitriptyli 1-1 Yes 1{tbl} 1 tablet Univers ne 100 mg 2-11 at ity of tablet 00:00: bedtime. [place] [address] Takes Medical total of Branch 125mg amitriptyli 1-1 Yes 1{tbl} 1 tablet Univers ne 100 mg 2-11 at ity of tablet 00:00: bedtime. [place] 00 Takes Medical total of Branch 125mg amitriptyli 1-1 Yes 1{tbl} 1 tablet Univers ne 100 mg 2-11 at ity of tablet 00:00: bedtime. [place] 00 Takes Medical total of Branch 125mg amitriptyli 1-1 Yes 1{tbl} 1 tablet Univers ne 100 mg 2-11 at ity of tablet 00:00: bedtime. [place] 00 Takes Medical total of Branch 125mg amitriptyli 2021-1 Yes 1{tbl} 1 tablet Univers ne 100 mg 2-11 at ity of tablet 00:00: bedtime. [place] 00 Takes Medical total of Branch 125mg amitriptyli 2021-1 Yes 1{tbl} 1 tablet Univers ne 100 mg 2-11 at ity of tablet 00:00: bedtime. [place] 00 Takes Medical total of Branch 125mg amitriptyli 2021-1 Yes 1{tbl} 1 tablet Univers ne 100 mg 2-11 at ity of tablet 00:00: bedtime. [place] [address] Takes Medical total of Branch 125mg amitriptyli 2021-1 Yes 1{tbl} 1 tablet Univers ne 100 mg 2-11 at ity of tablet 00:00: bedtime. [place] 00 Takes Medical total of Branch 125mg amitriptyli 1-1 Yes 1{tbl} 1 tablet Univers ne 100 mg 2-11 at ity of tablet 00:00: bedtime. [place] 00 Takes Medical total of Branch 125mg amitriptyli 2021-1 Yes 1{tbl} 1 tablet Univers ne 100 mg 2-11 at ity of tablet 00:00: bedtime. [place] 00 Takes Medical total of Branch 125mg amitriptyli 2021-1 Yes 1{tbl} 1 tablet Univers ne 100 mg 2-11 at ity of tablet 00:00: bedtime. [place] 00 Takes Medical total of Branch 125mg amitriptyli 1-1 Yes 1{tbl} 1 tablet Univers ne 100 mg 2-11 at ity of tablet 00:00: bedtime. [place] 00 Takes Medical total of Branch 125mg amitriptyli 1-1 Yes 1{tbl} 1 tablet Univers ne 100 mg 2-11 at ity of tablet 00:00: bedtime. [place] 00 Takes Medical total of Branch 125mg amitriptyli 1-1 Yes 1{tbl} 1 tablet Univers ne 100 mg 2-11 at ity of tablet 00:00: bedtime. [place] 00 Takes Medical total of Branch 125mg amitriptyli 1-1 Yes 1{tbl} 1 tablet Univers ne 100 mg 2-11 at ity of tablet 00:00: bedtime. [place] 00 Takes Medical total of Branch 125mg amitriptyli 1-1 Yes 1{tbl} 1 tablet Univers ne 100 mg 2-11 at ity of tablet 00:00: bedtime. [place] 00 Takes Medical total of Branch 125mg amitriptyli 1-1 Yes 1{tbl} 1 tablet Univers ne 100 mg 2-11 at ity of tablet 00:00: bedtime. [place] 00 Takes Medical total of Branch 125mg amitriptyli 2021-1 Yes 1{tbl} 1 tablet Univers ne 100 mg 2-11 at ity of tablet 00:00: bedtime. [place] [address] Takes Medical total of Branch 125mg clopidogreL 2020-1 Yes 1{tbl} 1 tablet Univers 75 mg 1-23 daily. ity of tablet 00:00: [place] [facility] clopidogreL 2020-02 Yes 1{tbl} 1 tablet Univers 75 mg 1-23 daily. ity of tablet 00:00: [place] [facility] clopidogreL 2020-02 Yes 1{tbl} 1 tablet Univers 75 mg 1-23 daily. ity of tablet 00:00: [place] [facility] clopidogreL 2020-02 Yes 1{tbl} 1 tablet Univers 75 mg 1-23 daily. ity of tablet 00:00: [place] [facility] clopidogreL 2020-02 Yes 1{tbl} 1 tablet Univers 75 mg 1-23 daily. ity of tablet 00:00: [place] [facility] clopidogreL 2020-02 Yes 1{tbl} 1 tablet Univers 75 mg 1-23 daily. ity of tablet 00:00: [place] [facility] clopidogreL 2020-02 Yes 1{tbl} 1 tablet Univers 75 mg 1-23 daily. ity of tablet 00:00: [place] [facility] clopidogreL 2020-02 Yes 1{tbl} 1 tablet Univers 75 mg 1-23 daily. ity of tablet 00:00: [place] [facility] clopidogreL 2020-02 Yes 1{tbl} 1 tablet Univers 75 mg 1-23 daily. ity of tablet 00:00: [place] [facility] clopidogreL 2020-02 Yes 1{tbl} 1 tablet Univers 75 mg 1-23 daily. ity of tablet 00:00: [place] [facility] clopidogreL 2020-02 Yes 1{tbl} 1 tablet Univers 75 mg 1-23 daily. ity of tablet 00:00: [place] [facility] clopidogreL 202- Yes 1{tbl} 1 tablet Univers 75 mg 1-23 daily. ity of tablet 00:00: [place] [facility] clopidogreL 2020- Yes 1{tbl} 1 tablet Univers 75 mg 1-23 daily. ity of tablet 00:00: [place] [facility] clopidogreL 2020- Yes 1{tbl} 1 tablet Univers 75 mg 1-23 daily. ity of tablet 00:00: [place] [facility] clopidogreL 2020-02 Yes 1{tbl} 1 tablet Univers 75 mg 1-23 daily. ity of tablet 00:00: [place] [facility] clopidogreL 2020- Yes 1{tbl} 1 tablet Univers 75 mg 1-23 daily. ity of tablet 00:00: Medical Branch clopidogreL 2020-02 Yes 1{tbl} 1 tablet Univers 75 mg 1-23 daily. ity of tablet 00:00: Medical Branch clopidogreL 2020-02 Yes 1{tbl} 1 tablet Univers 75 mg 1-23 daily. ity of tablet 00:00: Medical Branch clopidogreL 2020- Yes 75mg Take 1 Univ ers 75 mg 1-23 tablet in ity of tablet 00:00: the [place] morning. Medical Branch clopidogreL 2020- Yes 75mg Take 1 Univ ers 75 mg 1-23 tablet in ity of tablet 00:00: the [place] morning. Medical Branch clopidogreL 2020- Yes 75mg Take 1 Univ ers 75 mg 1-23 tablet in ity of tablet 00:00: the [place] morning. Medical Branch clopidogreL 2020- Yes 75mg Take 1 Univ ers 75 mg 1-23 tablet in ity of tablet 00:00: the [place] morning. Medical Branch tiZANidine 2020-02 Yes 1{tbl} 1 tablet U nivers 2 mg tablet 1-16 at ity of 00:00: bedtime. [place] Medical Branch tiZANidine 2020-02 Yes 1{tbl} 1 tablet U nivers 2 mg tablet 1-16 at ity of 00:00: bedtime. [place] [facility] Branch tiZANidine 2020-02 Yes 1{tbl} 1 tablet U nivers 2 mg tablet 1-16 at ity of 00:00: bedtime. [place] [facility] Branch tiZANidine 2020-02 Yes 1{tbl} 1 tablet U nivers 2 mg tablet 1-16 at ity of 00:00: bedtime. [place] [facility] Branch tiZANidine 2020-02 Yes 1{tbl} 1 tablet U nivers 2 mg tablet 1-16 at ity of 00:00: bedtime. [place] [facility] Branch tiZANidine 2020-02 Yes 1{tbl} 1 tablet U nivers 2 mg tablet 1-16 at ity of 00:00: bedtime. [place] Medical Branch tiZANidine 2020-02 Yes 1{tbl} 1 tablet U nivers 2 mg tablet 1-16 at ity of 00:00: bedtime. [place] [facility] Branch tiZANidine 2020-02 Yes 1{tbl} 1 tablet U nivers 2 mg tablet 1-16 at ity of 00:00: bedtime. [place] [facility] tiZANidine 2020-02 Yes 1{tbl} 1 tablet U nivers 2 mg tablet 1-16 at ity of 00:00: bedtime. [place] [facility] tiZANidine 2020-02 Yes 1{tbl} 1 tablet U nivers 2 mg tablet 1-16 at ity of 00:00: bedtime. [place] [facility] tiZANidine 2020-02 Yes 1{tbl} 1 tablet U nivers 2 mg tablet 1-16 at ity of 00:00: bedtime. [place] [facility] tiZANidine 2020-02 Yes 1{tbl} 1 tablet U nivers 2 mg tablet 1-16 at ity of 00:00: bedtime. [place] [facility] tiZANidine 2020-02 Yes 1{tbl} 1 tablet U nivers 2 mg tablet 1-16 at ity of 00:00: bedtime. [place] [facility] tiZANidine 2020-02 Yes 1{tbl} 1 tablet U nivers 2 mg tablet 1-16 at ity of 00:00: bedtime. [place] [facility] tiZANidine 2020-02 Yes 1{tbl} 1 tablet U nivers 2 mg tablet 1-16 at ity of 00:00: bedtime. [place] [facility] tiZANidine 2020-02 Yes 1{tbl} 1 tablet U nivers 2 mg tablet 1-16 at ity of 00:00: bedtime. [place] [facility] tiZANidine 2020-02 Yes 1{tbl} 1 tablet U nivers 2 mg tablet 1-16 at ity of 00:00: bedtime. [place] [facility] tiZANidine 2020-02 Yes 1{tbl} 1 tablet U nivers 2 mg tablet 1-16 at ity of 00:00: bedtime. [place] [facility] tiZANidine 2020-02 Yes 1{tbl} 1 tablet U nivers 2 mg tablet 1-16 at ity of 00:00: bedtime. [place] [facility] tiZANidine 2020-02 Yes 1{tbl} 1 tablet U nivers 2 mg tablet 1-16 at ity of 00:00: bedtime. [place] [facility] tiZANidine 2020-02 Yes 1{tbl} 1 tablet U nivers 2 mg tablet 1-16 at ity of 00:00: bedtime. [place] [facility] tiZANidine 2020-02 Yes 1{tbl} 1 tablet U nivers 2 mg tablet 1-16 at ity of 00:00: bedtime. [place] [facility] atorvastati 2020-02 Yes 1{tbl} 1 tablet Univers n 80 mg 1-03 at ity of tablet 00:00: bedtime. [place] [facility] atorvastati 2020-02 Yes 1{tbl} 1 tablet Univers n 80 mg 1-03 at ity of tablet 00:00: bedtime. [place] [facility] atorvastati 2020-02 Yes 1{tbl} 1 tablet Univers n 80 mg 1-03 at ity of tablet 00:00: bedtime. [place] [facility] atorvastati 2020-02 Yes 1{tbl} 1 tablet Univers n 80 mg 1-03 at ity of tablet 00:00: bedtime. [place] [facility] atorvastati 2020-02 Yes 1{tbl} 1 tablet Univers n 80 mg 1-03 at ity of tablet 00:00: bedtime. [place] [facility] atorvastati 2020-02 Yes 1{tbl} 1 tablet Univers n 80 mg 1-03 at ity of tablet 00:00: bedtime. [place] [facility] atorvastati 2020-02 Yes 1{tbl} 1 tablet Univers n 80 mg 1-03 at ity of tablet 00:00: bedtime. [place] [facility] atorvastati 2020-02 Yes 1{tbl} 1 tablet Univers n 80 mg 1-03 at ity of tablet 00:00: bedtime. [place] [facility] atorvastati 2020-02 Yes 1{tbl} 1 tablet Univers n 80 mg 1-03 at ity of tablet 00:00: bedtime. [place] [facility] atorvastati 2020-02 Yes 1{tbl} 1 tablet Univers n 80 mg 1-03 at ity of tablet 00:00: bedtime. [place] [facility] atorvastati 2020-02 Yes 1{tbl} 1 tablet Univers n 80 mg 1-03 at ity of tablet 00:00: bedtime. [place] [facility] atorvasta 2020-02 Yes 1{tbl} 1 tablet Univers n 80 mg 1-03 at ity of tablet 00:00: bedtime. [place] [facility] atorvastati 2020-02 Yes 1{tbl} 1 tablet Univers n 80 mg 1-03 at ity of tablet 00:00: bedtime. [place] [facility] atorvastati 2020-02 Yes 1{tbl} 1 tablet Univers n 80 mg 1-03 at ity of tablet 00:00: bedtime. [place] [facility] atorvasta 2020-02 Yes 1{tbl} 1 tablet Univers n 80 mg 1-03 at ity of tablet 00:00: bedtime. [place] [facility] atorvasta 2020-02 Yes 1{tbl} 1 tablet Univers n 80 mg 1-03 at ity of tablet 00:00: bedtime. [place] [facility] atorvasta 2020-02 Yes 1{tbl} 1 tablet Univers n 80 mg 1-03 at ity of tablet 00:00: bedtime. [place] [facility] atorvasta 2020-02 Yes 1{tbl} 1 tablet Univers n 80 mg 1-03 at ity of tablet 00:00: bedtime. [place] [facility] atorvastati 2020-02 Yes 1{tbl} 1 tablet Univers n 80 mg 1-03 at ity of tablet 00:00: bedtime. [place] [facility] atorvastati 2020-02 Yes 1{tbl} 1 tablet Univers n 80 mg 1-03 at ity of tablet 00:00: bedtime. [place] [facility] atorvastati 2020-02 Yes 1{tbl} 1 tablet Univers n 80 mg 1-03 at ity of tablet 00:00: bedtime. [place] [facility] atorvastati 2020-02 Yes 1{tbl} 1 tablet Univers n 80 mg 1-03 at ity of tablet 00:00: bedtime. [address] hydrOXYchlo 2020-0 Yes 200mg Take 200 U nivers roQUINE 200 9-29 mg by ity of mg tablet 00:00: mouth 2 [place] [address] (two) Medical times Branch daily. hydrOXYchlo 2020-0 [...] Ordered Filled Immunization Date Status Comments [facility] e Immunization Name Name Influenza Virus 2018-01-24 Completed Universit y of Vaccine Quad .5 mL 00:00:00 [facility] IM 6+ MO Branch Influenza Virus 2018-01-24 Completed Universit y of Vaccine Quad .5 mL 00:00:00 [place] [facility] IM 6+ MO Branch Influenza Virus 2018-01-24 Completed Universit y of Vaccine Quad .5 mL 00:00:00 [facility] IM 6+ MO Branch Influenza Virus 2018-01-24 [...] y of Vaccine Quad .5 mL 00:00:00 [facility] IM 6+ MO Branch Influenza Virus 2018-01-24 Completed Universit y of Vaccine Quad .5 mL 00:00:00 [facility] 6+ MO Branch TDAP 2013-02-07 Completed University of 00:00:00 [facility] TDAP 2013-02-07 Completed University of 00:00:00 [facility] TDAP 2013-02-07 Completed University of 00:00:00 [facility] TDAP 2013-02-07 Completed University of 00:00:00 [facility] TDAP 2013-02-07 Completed University of 00:00:00 [facility] TDAP 2013-02-07 Completed University of 00:00:00 [facility] TDAP 2013-02-07 Completed University of 00:00:00 [facility] TDAP 2013-02-07 Completed University of 00:00:00 [facility] TDAP 2013-02-07 Com[facility] TDAP 2013-02-07 Completed University of 00:00:00 [facility] TDAP 2013-02-07 Completed [facility] 00:00:00 [facility] TDAP 2013-02-07 Completed [facility] University of 00:00:00 [facility] TDAP 2013-02-07 Completed University of 00:00:00 [facility] TDAP 2013-02-07 Completed University of 00:00:00 [facility] TDAP 2013-02-07 Completed University of 00:00:00 [facility] TDAP 2013-02-07 Completed University of 00:00:00 [facility] TDAP 2013-02-07 Completed University of 00:00:00 [facility] TDAP 2013-02-07 Completed University of 00:00:00 [facility] TDAP 2013-02-07 Completed University of 00:00:00 [facility] Pneumococcal 2012-02-22 Completed University o f Polysaccharide, 00:00:00 [place] [facility] ical PPSV23 (PNEUMOVAX) Branch Pneumococcal 2012-02-22 [...] 2012-02-22 Completed University o f Polysaccharide, 00:00:00 [place] [facility] ical PPSV23 (PNEUMOVAX) Branch Pneumococcal 2012-02-22 Completed University o f Polysaccharide, 00:00:00 [place] [facility] ical PPSV23 (PNEUMOVAX) Branch Pneumococcal 2012-02-22 Completed University o f Polysaccharide, 00:00:00 [place] [facility] ical PPSV23 (PNEUMOVAX) Branch Pneumococcal 2012-02-22 Completed University o f Polysaccharide, 00:00:00 [facility] ical PPSV23 (PNEUMOVAX) Branch Influenza Virus 2010-11-07 Completed Universit y of Vaccine (3+ yrs) 00:00:00 [facility] Influenza Virus 2010-11-07 Completed Universit y of Vaccine (3+ yrs) 00:00:00 [facility] Influenza Virus 2010-11-07 Completed Universit y of Vaccine (3+ yrs) 00:00:00 [facility] Influenza Virus 2010-11-07 Completed Universit y of Vaccine (3+ yrs) 00:00:00 [facility] Influenza Virus 2010-11-07 Completed Universit y of Vaccine (3+ yrs) 00:00:00 [facility] Influenza Virus 2010-11-07 Completed Universit y of Vaccine (3+ yrs) 00:00:00 [facility] Influenza Virus 2010-11-07 Completed Universit y of Vaccine (3+ yrs) 00:00:00 [facility] Influenza Virus 2010-11-07 Completed Universit y of Vaccine (3+ yrs) 00:00:00 [facility] Influenza Virus 2010-11-07 Completed Universit y of Vaccine (3+ yrs) 00:00:00 [facility] Influenza Virus 2010-11-07 Completed Universit y of Vaccine (3+ yrs) 00:00:00 [facility] Influenza Virus 2010-11-07 Completed Universit y of Vaccine (3+ yrs) 00:00:00 [facility] Influenza Virus 2010-11-07 Completed Universit y of Vaccine (3+ yrs) 00:00:00 [facility] Influenza Virus 2010-11-07 Completed Universit y of Vaccine (3+ yrs) 00:00:00 [facility] Influenza Virus 2010-11-07 Completed Universit y of Vaccine (3+ yrs) 00:00:00 [facility] Influenza Virus 2010-11-07 Completed Universit y of Vaccine (3+ yrs) 00:00:00 [facility] Influenza Virus 2010-11-07 Completed Universit y of Vaccine (3+ yrs) 00:00:00 [facility] Influenza Virus 2010-11-07 Completed Universit y of Vaccine (3+ yrs) 00:00:00 [facility] Influenza Virus 2010-11-07 Completed Universit y of Vaccine (3+ yrs) 00:00:00 [facility] Influenza Virus 2010-11-07 Completed Universit y of Vaccine (3+ yrs) 00:00:00 [facility] Influenza Virus 2010-11-07 Completed Universit y of Vaccine (3+ yrs) 00:00:00 [facility] Influenza Virus 2010-11-07 Completed Universit y of Vaccine (3+ yrs) 00:00:00 [facility] Influenza Virus 2010-11-07 Completed Universit y of Vaccine (3+ yrs) 00:00:00 [facility] Pneumococcal 2006-11-14 Completed University o f Polysaccharide, [...] 17:42:00 133 mm[Hg] Univer sity of pressure [facility] Diastolic blood 2022-02-11 17:42:00 68 mm[Hg] Unive rsity of pressure [facility] Heart rate 2022-02-11 17:42:00 60 /min [facility] Body height 2022-02-11 17:42:00 175.3 cm [facility] Body weight 2022-02-11 17:42:00 92.625 kg [facility] BMI 2022-02-11 17:42:00 30.16 kg/m2 [facility] Oxygen saturation in 2022-02-11 17:42:00 97 /min University of Arterial blood by [facility] landry Pulse oximetry Branch Systolic blood 2022-02-09 18:02:00 131 mm[Hg] Univer sity of pressure [facility] Diastolic blood 2022-02-09 18:02:00 71 mm[Hg] Unive rsity of pressure [facility] Heart rate 2022-02-09 18:02:00 66 /min [facility] Body temperature 2022-02-09 18:02:00 36.5 Andreina Univ [facility] Respiratory rate 2022-02-09 18:02:00 16 /min [facility] Body height 2022-02-09 18:02:00 175.3 cm [facility] Body weight 2022-02-09 18:02:00 92.08 kg [facility] BMI 2022-02-09 18:02:00 29.98 kg/m2 [facility] Oxygen saturation in 2022-02-09 18:02:00 95 /min University of Arterial blood by [facility] Pulse oximetry Branch Systolic blood 2021-12-31 19:06:00 128 mm[Hg] Univer sity of pressure [facility] Diastolic blood 2021-12-31 19:06:00 66 mm[Hg] Unive rsity of pressure [facility] Heart rate 2021-12-31 19:06:00 81 /min [facility] Body temperature 2021-12-31 19:06:00 36.28 Andreina [facility] Respiratory rate 2021-12-31 19:06:00 18 /min [facility] Oxygen saturation in 2021-12-31 19:06:00 98 /min University of Arterial blood by [facility] landry Pulse oximetry Branch Body height 2021-12-29 00:08:00 175.3 cm [facility] Body weight 2021-12-29 00:08:00 94.7 kg [facility] BMI 2021-12-29 00:08:00 30.83 kg/m2 [facility] Systolic blood 2021-12-28 11:15:00 159 mm[Hg] Univer sity of [facility] Diastolic blood 2021-12-28 11:15:00 86 mm[Hg] Unive rsity of pressure [facility] Heart rate 2021-12-28 11:15:00 80 /min [facility] Body temperature 2021-12-28 11:15:00 36.33 Andreina [facility] Respiratory rate 2021-12-28 11:15:00 16 /min Univ [facility] Body height 2021-12-28 11:15:00 175.3 cm [facility] [place] [facility] [place] Body weight 2021-12-28 11:15:00 94.7 kg [facility] BMI 2021-12-28 11:15:00 30.83 kg/m2 [facility] Systolic blood 2021-10-27 20:05:00 148 mm[Hg] Univer sity of [facility] Diastolic blood 2021-10-27 20:05:00 86 mm[Hg] Unive rsity of pressure [facility] Heart rate 2021-10-27 20:05:00 66 /min [facility] [place] [facility] [place] Body temperature 2021-10-27 20:05:00 36.44 Andreina [facility] Respiratory rate 2021-10-27 20:05:00 16 /min [facility] Body height 2021-10-27 20:05:00 175.3 cm [facility] Body weight 2021-10-27 20:05:00 94.802 kg [facility] BMI 2021-10-27 20:05:00 30.86 kg/m2 [facility] Oxygen saturation in 2021-10-27 20:05:00 96 /min University of Arterial blood by [facility] Pulse oximetry Branch Systolic blood 2021-09-29 19:58:00 136 mm[Hg] Univer sity of pressure [facility] Diastolic blood 2021-09-29 19:58:00 75 mm[Hg] Unive rsity of pressure [facility] Heart rate 2021-09-29 19:58:00 72 /min [facility] Respiratory rate 2021-09-29 19:58:00 18 /min [facility] Body height 2021-09-29 19:58:00 175.3 cm [facility] Body weight 2021-09-29 19:58:00 95.165 kg [facility] BMI 2021-09-29 19:58:00 30.98 kg/m2 [facility] Oxygen saturation in 2021-09-29 19:58:00 97 /min [facility] Arterial blood by [facility] Pulse oximetry Branch Procedures Procedure Date / Time Performing Clinician Source Performed ASSIGNMENT OF BENEFITS 2022-02-09 16:56:29 Doctor Unassigned, [facility] COVID-19 (ID NOW RAPID 2021-12-30 23:26:00 Gail Herrera [facility] TESTING) [facility] LAB ONLY COVID 2021-12-30 23:26:00 Gail Herrera [facility] INTERPRETATION [facility] XR CHEST 1 VW 2021-12-30 16:29:00 Matilde Prather [facility] CREATININE 2021-12-30 00:42:[address] [facility] XR CHEST 1 VW 2021-12-29 14:02:00 Luz [facility] XR CHEST 1 VW 2021-12-29 14:02:00 Luz [facility] INTUBATION 2021-12-28 13:26:00 Danny [facility] LAPAROSCOPIC ASSISTED 2021-12-28 12:54:00 [facility] ROBOTIC ABDOMINAL WALL [facility] RECONSTRUCTION LAPAROSCOPIC ASSISTED 2021-12-28 12:54:[address] [facility] ROBOTIC ABDOMINAL WALL Medical B ranch RECONSTRUCTION [facility] 2021-12-28 06:01:00 Doctor Unassjohnson, [facility] DISCLOSURE AND CONSENT, 2021-10-27 05:01:00 Doctor Unassigned, [facility] MEDICAL AND SURGICAL [facility] PROCEDURES Encounters Start End Encounter Admission Attending Care Care Encounter Source Date/Time Date/Time Type Type Clinicians Facility Department ID 2021-02-13 Outpatient R [facility] AMARI [id number] Univers 11:35:03 ity of [facility] 2020-12-[address] [facility] [id number] Univers 19:25:54 ity of [facility] 2020-12-[address] [facility] [id number] Univers 13:57:37 ity of [facility] 2020-12-[address] [facility] [id number] Univers 04:00:00 ity of [facility] 2020-12-07 Emergency X [facility] AMARI [id number] Univers 10:52:27 ity of [facility] 2020-12-[address] [facility] [id number] Univers 10:51:36 ity of [facility] 2020-12-[address] [facility] [id number] Univers 05:39:59 ity of [facility] 2020-12-[address] [facility] [id number] Univers 07:40:04 ity of [facility] 2020-12-[address] [facility] [id number] Univers 20:55:47 ity of [facility] 2020-12-[address] [facility] [id number] Univers 20:13:24 ity of [facility] 2020-12-[address] [facility] [id number] Univers 19:07:25 ity of [facility] 2020-12-[address] [facility] [id number] Univers 18:41:54 ity of [facility] 2022 2022 Outpatient R PING [facility] [id number] Univers 10:20:00 10:20:00 EDIL ity of [facility] 2022-07-20 2022-07-20 Outpatient R KRISTI GUZMAN [facility] U [facility] [id number] Univers 11:15:00 11:15:00 KRISTI GUZMAN ity of [facility] 2022-07-05 2022-07-05 Patient Dagoberto Shaw [facility] 1.2.840.114 [id number] Univers 00:00:00 00:00:00 Secure [facility] [place] HEALTH 350.1.13.10 ity of [place] [id number] [address] OFFICE BUILDING 2022-06-03 2022-06-03 Outpatient R JOSEPH [facility] [id number] Univers 09:30:00 09:57:54 LUDMILA goss [facility] 2022-06-01 2022-06-01 Outpatient R KRISTI GUZMAN [facility] U [facility] [id number] Univers 11:15:00 11:15:00 KRISTI GUZMAN [facility] 2022-05-27 2022-05-27 [facility] 1..[id number] [id number] Univers 00:00:00 00:00:00 Edil [place] 350.1.13.10 i ty of [place] [id number] [address] 2022-05-20 2022-05-20 Outpatient [facility] [id number] Univers 09:59:03 23:59:00 EDIL [facility] 2022-05-18 2022-05-18 Telephone [facility] 1..[id number] [id number] Univers 00:00:00 00:00:00 [facility] 350.1.13.10 i ty of [place] 4.2.7.2.686 Mehdi as JALEEL?BLEA [phone] [place] doug WOLF 092 [facility] 2022-05-17 2022-05-17 Telephone [facility] ..[id number] Univers 00:00:00 00:00:00 [facility] [place] 350.1.13.10 ity of [place].7.2.[place] [id number] Tx dicva NAL [address] [place] [address] 2022-05-13 2022-05-13 Outpatient Raya RUIZ [facility] [id number] Univers 10:00:00 10:00:00 LUDMILA goss [facility] 2022-04-08 2022-04-08 Outpatient R JOSEPH [facility] [id number] Univers 10:00:00 10:13:27 LUDMILASEAN goss [facility] 2022-04-06 2022-04-06 Outpatient R JOSEPH [facility] [id number] Univers 13:30:00 13:30:00 LUDMILA lisairineo [facility] 2022-02-11 2022-02-11 Outpatient R PING [facility] [id number] Univers 10:20:00 23:59:00 EDIL ity [facility] 2022-02-11 2022-02-11 Office Ping [facility] 1.2.840.114 [id number] Univers 11:20:00 11:40:00 [facility] 350.1.13.10 i ty of [place] 4.2.7.2.[place] [id number] [place] dical NAL [address] [facility] 2022-02-09 2022-02-09 Outpatient R DAGOBERTO SHAW [facility] [id number] Univers 11:30:00 12:15:22 ity [facility] 2022-02-09 2022-02-09 Office Dagoberto Shaw [place] 1.2.840.114 [id number] Univers 11:30:00 12:15:22 Visit HEALTH 350.1.13.10 it y [place] [id number] [address] OFFICE BUILDING 2022-02-09 2022-02-09 Orders Doctor SUNIL 1.2.840.114 [id number] Univers 00:00:00 00:00:00 Only Unassigned, EDUARDO 350.1.13.10 ity of [facility] 4.2.7.2.686 Mehdi as [id number] [address] 2022-01-26 2022-01-26 Outpatient R DAGOBERTO SHAW [facility] [id number] Univers 16:00:00 16:00:00 ity [facility] 2022-01-19 2022-01-19 Telephone Dagoberto Shaw [facility] 1.2.840.114 [id number] Univers 00:00:00 00:00:00 HEALTH 350.1.13.10 it [place] [id number] [address] OFFICE BUILDING 2022-01-12 2022-01-12 Telephone Dagoberto Shaw [facility] 1.2.840.114 [id number] Univers 00:00:00 00:00:00 HEALTH 350.1.13.10 it y [place] [id number] [address] OFFICE BUILDING 2022-01-07 2022-01-07 Outpatient R PING [facility] [id number] Univers 09:40:00 09:40:00 EDIL ity of [facility] 2021-12-28 2021-12-31 Outpatient R DAGOBERTO SHAW [facility] AMARI [id number] Univers 05:11:00 16:54:00 ity of [facility] 2021-12-28 2021-12-31 Hospital Dagoberto Shaw 1.2.840.114 [id number] Univers 05:11:00 16:54:00 Encounter EDUARDO 350.1.13.10 ity of HOSPITAL 4.2.7.2.686 Mehdi as [id number] [facility] 092 Branch 2021-12-28 2021-12-28 Anesthesia [facility] Walter 1.2 .840.114 [id number] Univers 07:20:00 13:02:00 Event Marco A PeraltaY 350.1. 13.10 [facility] 4.2.7.2.686 Mehdi as [id number] [facility] 103 Branch 2021-12-28 2021-12-28 Surgery Dagoberto Shaw 1.2.840.114 [id number] Univers 06:50:00 11:07:00 EDUARDO 350.1.13.10 it [facility] 4.2.7.2.686 Mehdi as [id number] [facility] 103 Branch 2021-12-28 2021-12-28 Orders Doctor BARBER 1.2.840.114 [id number] Univers 00:00:00 00:00:00 Only Unassigned, EDUARDO 350.1.13.10 ity of [facility] 4.2.7.2.686 Mehdi as [id number] [address] 2021-12-25 2021-12-25 Outpatient R PING [facility] [id number] Univers 00:00:00 00:00:00 EDIL ity of [facility] 2021-12-25 2021-12-25 Telephone Dagoberto Shaw 1.2.840.114 [id number] Univers 00:00:00 00:00:00 HEALTH 350.1.13.10 it y of [place] [id number] [address] OFFICE BUILDING 2021-12-24 2021-12-24 Outpatient R PING [facility] [id number] Univers 13:35:11 23:59:00 EDIL ity of [facility] 2021-12-24 2021-12-24 Hospital VERNON Feng 1.2.840.114 [id number] Univers 13:30:00 23:59:00 Encounter Edil EDUARDO 350.1.13.10 ity of HOSPITAL 4.2.7.2.686 Mehdi as [id number] [address] 2021-12-24 2021-12-24 Telephone Dagoberto Shaw 1.2.840.114 [id number] Univers 00:00:00 00:00:00 HEALTH 350.1.13.10 it y [place] [id number] [address] OFFICE BUILDING 2021-12-04 2021-12-04 Outpatient R PING [facility] [id number] Univers 10:20:00 10:20:00 EDIL ity of [facility] 2021-10-27 2021-10-27 Office Dagoberto Shaw 1.2.840.114 [id number] Univers 15:00:00 15:15:00 Visit HEALTH 350.1.13.10 it [place] [id number] [address] OFFICE BUILDING 2021-10-27 2021-10-27 Outpatient R COLINDAGOBERTO [facility] [id number] Univers 15:00:00 15:00:00 ity [facility] 2021-10-27 2021-10-27 Orders Doctor SUNIL 1.2.840.114 [id number] Univers 00:00:00 00:00:00 Only Unassigned, EDUARDO 350.1.13.10 ity of [facility] 4.2.7.2.686 Mehdi as [id number] [address] 2021-10-05 2021-10-05 [facility] [id number] Univers 09:15:00 09:15:00 [facility] 2021-10-02 2021-10-02 Outpatient R PING [facility] [id number] Univers 15:00:00 15:00:00 [facility] 2021-09-29 2021-09-29 Office Joseph [facility] 1.2.840.114 [id number] Univers 14:45:00 15:00:00 Visit [facility] 350.1.13.10 it y of [place]2.[place].2.[place] C[place] - [id number] [facility] [address] [place] 2021-09-29 2021-09-29 Outpatient R JOSEPH [facility] [id number] Univers 14:45:00 14:45:00 LUDMILA [facility] 2021-09-29 2021-09-29 Outpatient R PRISCILLA [facility] [id number] Univers 09:15:00 09:15:00 [facility] 2021-09-28 2021-09-28 Telephone [facility] 1.2.241.323 [id number] Univers 00:00:00 00:00:00 [facility] 350.1.13.10 it y of [place]2.[place].2.686 [place] - [id number] [facility] [address] 2021-09-25 2021-09-25 [facility] [id number] Univers 10:40:00 10:40:00 [facility] 2021-09-25 2021-09-25 [facility] [id number] Univers 10:40:00 10:40:00 EDIL ity [facility] 2021-09-19 2021-09-19 Patient Doctor SUNIL 1.2.840.114 [id number] Univers 00:00:00 00:00:00 Secure Msg Unassigned, EDUARDO 350.1.13.10 ity [facility] 4.2.7.2.686 Mehdi [id number] [facility] [address] [place] 2021-09-17 2021-09-17 Outpatient [facility] [id number] Univers 11:39:36 23:59:00 [place] kim [facility] 2021-09-17 2021-09-17 [facility] 1.2.840.114 [id number] Univers 11:39:36 23:59:00 Encounter Charlotte ROTHMAN 350.1.13.10 ity [facility] 4.2.7.2.686 [place] [id number] [facility] [address] [place] 2021-09-14 2021-09-14 Outpatient [facility] [id number] Univers 08:30:00 09:03:05 [place] goss [facility] 2021-09-14 2021-09-14 Office [place], [facility] 1.2.840.114 [id number] Univers 08:30:00 09:03:05 Visit [place] ROTH[facility].13.10 [facility] [id number] Tx dical [address] 2021-08-12 2021-08-12 Outpatient [facility] [id number] Univers 10:30:00 10:30:00 [place] kim [facility] 2021-07-29 2021-07-29 Outpatient Raya [facility] [id number] Univers 09:30:00 09:30:00 [place] kim [facility] 2021-07-20 2021-07-20 Outpatient R NESTOR, [facility] [id number] Univers 09:30:00 09:30:00 [place] goss o f [facility] 2021-07-03 2021-07-03 Office [facility] 1.2.840.114 [id number] Univers 09:00:00 09:24:03 Visit Edil ANAEMELY 350.1.13.10 i ty of [place].2.7.2.[place] [id number] Tx dical NAL 9 [facility] 2021-07-03 2021-07-03 Outpatient R PING [facility] [id number] Univers 09:00:00 09:24:03 EDIL ity [facility] 2021-07-03 2021-07-03 [facility] [id number] Univers 09:00:00 09:00:00 [facility]IL [facility] 2021-06-30 2021-06-30 Outpatient R JOSEPH [facility] [id number] Univers 15:30:00 15:30:00 LUDMILA ity [facility] 2021-06-26 2021-06-26 [facility] [id number] Univers 10:00:00 10:00:00 EDIL [facility] 2021-06-26 2021-06-26 Out[facility] [id number] Univers 10:00:00 10:00:00 [facility] 2021-06-26 2021-06-26 Outpatient [facility] [id number] Univers 10:00:00 10:00:00 EDIL ity [facility] 2021-05-29 2021-05-29 Orders Doctor SUNIL 1.2.840.114 [id number] Univers 00:00:00 00:00:00 Only Unassigned, EDUARDO 350.1.13.10 ity of [facility] 4.2.7.2.686 Mehdi as [id number] [place] [address] Branch 2021-05-20 2021-05-20 Transition AMY Ramsay 1.2.840.114 [id number] Univers 00:00:00 00:00:00 of Lulú MICHAEL 350.1.13.10 it y of [place].2.[place] [id number] [facility] [address] 2021-05-19 2021-05-19 Outpatient Raya RUIZ [facility] [id number] Univers 16:30:00 16:30:00 Surgery [facility] 2021-05-14 2021-05-19 [facility]patient [facility] [id number] Univers 17:03:00 15:35:00 [facility] 2021-05-14 2021-05-19 Emergency RichmondKenip [facility] 1.2.840. 114 [id number] Univers 17:03:00 15:35:00 Tom Lopez 350.1.13.10 ity Patricia [place] 4.2.7.2.686 [facility] [id number] [facility] 081 [address] 2021-05-12 2021-05-12 Outpatient Raya RUIZ [facility] [id number] Univers 16:15:00 16:15:00 LUDMILA [facility] 2021-05-11 2021-05-11 D[facility] 1.2.840.114 [id number] Univers 00:00:00 00:00:00 Franklyn ROTHMAN 350.1.13.10 ity [facility] [place] [id number] [facility] 0[address] [facility] 2021-05-08 2021-05-08 Outpatient Raya RUIZ [facility] [id number] Univers 11:00:00 11:00:00 LUDMILA [facility] 2021-05-08 2021-05-08 SHARAD Jasso 1.2.840.114 [id number] Univers 00:00:00 00:00:00 Ludmila [facility] 350.1.13.10 i ty of CLINICS 4.2.7.2.[place] [id number] [facility] [address] 2021-04-22 2021-04-30 Inpatient Raya RUIZ [facility] AMARI [id number] Univers 07:01:00 17:49:00 LUDMILA ity of [facility] 2021-04-22 2021-04-30 Hospital VERNON Ruiz 1.2.840.114 [id number] Univers 07:01:00 17:49:00 Encounter Ludmila CLARK 350.1.13.10 ity of HOSPITAL 4.2.7.2.686 Mehdi as [id number] [facility] 098 [address] 2021-04-22 2021-04-22 Anesthesia Alta Ma 1.2.8 40.114 [id number] Univers 10:03:00 16:40:00 Event Bhumika Jameyshreya FINNEYY 350.1.13.1 0 ity of HOSPITAL 4.2.7.2.686 Mehdi as [id number] [facility] [address] 2021-04-22 2021-04-22 Surgery VERNON Ruiz 1.2.840.114 [id number] Univers 09:00:00 15:30:00 Ludmila EDUARDO 350.1.13.10 it y of HOSPITAL 4.2.7.2.686 Mehdi as [id number] [facility] [address] 2021-04-22 2021-04-22 Orders Doctor SUNIL 1.2.840.114 [id number] Univers 00:00:00 00:00:00 Only Unassigned, EDUARDO 350.1.13.10 ity of [facility] 4.2.7.2.686 Mehdi as [id number] [facility] 009 [address] 2021-04-15 2021-04-15 Outpatient R MARI [facility] GIE [id number] Univers 08:43:00 11:49:00 SHAISTA ity of [facility] 2021-04-15 2021-04-15 Hospital [facility] 1.2.840.114 [id number] Univers 08:43:00 11:49:00 Encounter Shaista ICAL 350.1.13.10 ity of [facility] 4.2.7.2.686 Mehdi as BLDG [id number] [facility] 020 [address] 2021-04-15 2021-04-15 Surgery [facility] 1.2.840.114 [id number] Univers 09:45:00 10:15:00 Shaista ICAL 350.1.13.10 it y of SCIENCES 4.2.7.2.686 Mehdi as BLDG [id number] [facility] 020 Branch 2021-04-15 2021-04-15 Orders Doctor SUNIL 1.2.840.114 [id number] Univers 00:00:00 00:00:00 Only Unassigned, EDUARDO 350.1.13.10 ity of [facility] 4.2.7.2.686 Mehdi as [id number] [facility] 009 Branch 2021-04-13 2021-04-13 Laboratory Only, Adc Test [facility] 1.2.840. 114 [id number] Univers 13:00:00 13:15:00 Only Ludmila Ruiz 350.1.13.10 ity of Shaista Guerra 4.2.7.2.686 [facility] [id number] [facility] [address] 2021-04-13 2021-04-13 Outpatient R MARI [facility] [id number] Univers 13:00:00 13:00:00 [facility] 2021-04-06 2021-04-06 Telephone [facility] 1.2.052.551 [id number] Univers 00:00:00 00:00:00 [facility] 350.1.13.10 it y of [place] 4.2.7.2.686 [place] [facility] - [id number] Med ical [facility] [address] 2021-03-20 2021-03-20 Outpatient R JOSEPH [facility] [id number] Univers 11:45:00 13:07:24 LUDMILA goss [facility] 2021-03-20 2021-03-20 Outpatient Raya RUIZ [facility] [id number] Univers 11:45:00 13:07:24 LUDMILA [facility] 2021-03-20 2021-03-20 [facility] 1.2.840.114 [id number] Univers 08:00:00 09:14:53 Visit Edil ROTHMAN 350.1.13.10 i ty of [place] [facility] [id number] [place] dical NAL 059 Branch [facility] 2021-03-18 2021-03-18 Outpatient R JOSEPH [facility] [id number] Univers 09:06:05 23:59:00 LUDMILA goss [facility] 2021-03-18 2021-03-18 Outpatient R JOSEPH [facility] [id number] Univers 09:06:05 23:59:00 LUDMILA lisairineo [facility] 2021-03-18 2021-03-18 Hospital [facility] 1.2.840.114 [id number] Univers 09:00:00 23:59:00 Encounter Ludmila ROTHMAN 350.1.13.10 ity of [place] [phone] [facility] 807 Branch 2021-03-05 2021-03-05 Emergency X Milena OROPEZA [facility] ERT [id number] Univers 17:38:00 22:52:00 ity of [facility] 2021-03-05 2021-03-05 Emergency Milena Oropeza [facility] 1.2.840.114 [id number] Univers 17:38:00 22:52:00 No ROTHMAN 350.1.13.10 i ty [place] [phone] [facility] 084 Branch 2021-02-24 2021-02-24 Telephone SHARAD Ruiz 1.2.840.114 [id number] Univers 00:00:00 00:00:00 Ludmila [facility] 350.1.13.10 i ty [place] [phone] [facility] 071 Branch 2021-02-19 2021-02-19 Transition AMY Ramsay 1.2.840.114 [id number] Univers 00:00:00 00:00:00 of Care Arina MICHAEL 350.1.13.10 it y of [place] [phone] [facility] 403 Branch 2021-02-14 2021-02-18 Hospital Maryan Rojas 1.2.8 40.114 [id number] Univers 17:09:00 16:05:00 Encounter Kylee Delarosa EDUARDO 350.1.13 .10 ity of [facility] 4.2.7.2.686 [place] [id number] [facility] 095 Branch 2021-02-16 2021-02-16 Anesthesia [facility] 1.2.840.114 [id number] Univers 09:27:00 10:27:00 Event Radha Lozada ICAL 350.1.13.10 i ty of [place] 4.2.7.2.686 Mehdi as [place]LD[place] [phone] [facility] 020 Branch 2021-02-16 2021-02-16 Surgery [facility] 1.2.412.604 [id number] Univers 07:48:00 08:50:00 Neil-Jillian ICAL 350.1.13.10 ity of [place] 4.2.7.2.686 Mehdi as [place] [id number] [facility] 020 Branch 2021-02-13 2021-02-13 Office SHARAD Ruiz 1.2.705.380 [id number] Univers 10:45:00 11:00:00 Visit [facility] 350.1.13.10 i ty [place] [phone] [facility] 408 Branch 2021-02-13 2021-02-13 Outpatient Raya RUIZ [facility] [id number] Univers 10:45:00 10:45:00 LUDMILA irineo [facility] 2021-02-13 2021-02-13 Outpatient Raya RUIZ [facility] [id number] Univers 10:45:00 10:45:00 LUDMILA irineo [facility] 2021-02-13 2021-02-13 Outpatient Raya RUIZ [facility] AMBER [id number] Univers 10:45:00 10:45:00 LUDMILA [facility] 2021-02-03 2021-02-03 Dano [facility] 1.2.840.114 [id number] Univers 00:00:00 00:00:00 Franklyn Damico LORNA 350.1.13.10 ity of [place] [facility] [phone] Tx dical [facility] 092 [facility] 2020-12-24 2020-12-24 Outpatient R ALVINDEN [facility] [id number] Univers 14:00:00 15:03:38 BALDEMAR goss [facility] 2020-12-24 2020-12-24 Outpatient R RANDELL [facility] [id number] Univers 14:00:00 15:03:38 BALDEMAR goss [facility] 2020-12-24 2020-12-24 Office Randell [facility] 1.2.840.114 [id number] Univers 13:41:26 15:03:38 Visit Baldemar Humble LEHMAN 350.1.13.10 ity of [facility] 4.2.7.2.[place] [phone] [facility] AND [place] 011 Branch [facility] 2020-12-23 2020-12-23 Orders Doctor SUNIL 1.2.840.114 [id number] Univers 00:00:00 00:00:00 Only Unassigned, EDUARDO 350.1.13.10 ity of [facility] 4.2.7.2.686 Mehdi as [id number] [facility] 009 Branch 2020-12-12 2020-12-12 Outpatient Raya RUIZ [facility] [id number] Univers 11:45:00 11:45:00 LUDMILASEAN goss [facility] 2020-12-12 2020-12-12 Outpatient Raya RUIZ [facility] [id number] Univers 11:45:00 11:45:00 LUDMILA goss [facility] 2020-12-12 2020-12-12 Outpatient R JOSEPH [facility] [id number] Univers 11:45:00 11:45:00 LUDMILA goss [facility] 2020-12-12 2020-12-12 Outpatient Raya RUIZ [facility] [id number] Univers 11:45:00 11:45:00 LUDMILA goss [facility] 2020-12-12 2020-12-12 Outpatient R JOSEPH [facility] [id number] Univers 11:45:00 11:45:00 LUDMILA itirineo [facility] 2020-12-12 2020-12-12 Office SHARAD Ruiz 1.2.631.442 [id number] Univers 11:13:07 11:28:07 Visit Ludmila Y HEALTH 350.1.13.10 i ty of [facility] 4.2.7.2.[place] [id number] [facility] 408 Branch 2020-12-09 2020-12-09 Office Ping [facility] 1.2.840.114 [id number] Univers 11:21:50 11:39:47 Visit [facility] 350.1.13.10 i ty [place].2.[place].2.[place] [id number] [place] 822319 [facility] 2020-12-09 2020-12-09 [facility] [id number] Univers 11:00:00 11:39:47 EDIL ity [facility] 2020-12-09 2020-12-09 Outpatient R PING [facility] [id number] Univers 11:00:00 11:39:47 EDIL ity [facility] 2020-12-09 2020-12-09 Orders Doctor SUNIL 1.2.840.114 [id number] Univers 00:00:00 00:00:00 Only Unassigned, EDUARDO 350.1.13.10 ity of [facility] 4.2.7.2.686 Mehdi as [phone] [facility] 009 Branch 2020-12-05 2020-12-05 Outpatient Raya RUIZ [facility] [id number] Univers 11:30:00 11:30:00 LUDMILA goss [facility] 2020-12-05 2020-12-05 Outpatient Raya RUIZ [facility] [id number] Univers 11:30:00 11:30:00 LUDMILA goss [facility] 2020-12-03 2020-12-03 Telephone SHARAD [place] 1.2.840.114 [id number] Univers 00:00:00 00:00:00 Ilana Y HEALTH 350.1.13.10 i ty of [place] [facility] 4.2.7.2.686 [place] a [id number] [address] 2020-11-28 2020-11-28 Outpatient R JOSEPH [facility] [id number] Univers 11:00:00 11:00:00 LUDMILA goss [facility] 2020-11-28 2020-11-28 Outpatient R JOSEPH [facility] [id number] Univers 11:00:00 11:00:00 LUDMILA irineo [facility] 2020-11-28 2020-11-28 Telephone [facility] 1.2.159.686 [id number] Univers 00:00:00 00:00:00 Ilana Health 350.1.13.10 it y of [facility] [place] 4.2.7.2.686 [place] [phone] [address] Office Building 2020-11-25 2020-11-25 Outpatient R DAGOBEROT SHAW [facility] [id number] Univers 15:45:00 16:38:41 ity of [facility] 2020-11-25 2020-11-25 Office Dagoberto Shaw [facility] 1.2.840.114 [id number] Univers 15:36:34 16:38:41 Visit Health 350.1.13.10 it y of [place] 4.2.7.2.686 [place] [phone] [address] Office Building 2020-11-25 2020-11-25 Outpatient R DAGOBERTO SHAW [facility] [id number] Univers 15:45:00 15:45:00 ity of [facility] 2020-11-25 2020-11-25 Orders Doctor SUNIL 1.2.840.114 [id number] Univers 00:00:00 00:00:00 Only Unassigned, EDUARDO 350.1.13.10 ity of [facility] 4.2.7.2.686 Mehdi as [id number] [address] 2020-11-25 2020-11-25 Orders Doctor SUNIL 1.2.840.114 [id number] Univers 00:00:00 00:00:00 Only Unassigned, EDUARDO 350.1.13.10 ity of [facility] 4.2.7.2.686 Mehdi as [phone] [facility] 009 Branch 2020-11-24 2020-11-24 Telephone [place] [facility] 1.2.222.354 [id number] Univers 00:00:00 00:00:00 Ilana Health 350.1.13.10 it y of [place] 4.2.7.2.686 [facility] [place] [facility] [id number] [place] 930672 Branch Office Building 2020-11-11 2020-11-11 Outpatient DAGOBERTO MONTEIRO [facility] [id number] Univers 11:30:00 11:30:00 ity of [facility] 2020-11-11 2020-11-11 Outpatient DAGOBERTO MONTEIRO [facility] [id number] Univers 11:30:00 11:30:00 ity of [facility] 2020-11-07 2020-11-07 Orders Doctor SUNIL 1.2.840.114 [id number] Univers 00:00:00 00:00:00 Only Unassigned, EDUARDO 350.1.13.10 ity of [facility] 4.2.7.2.686 Mehdi as [phone] [address] 2020-10-07 2020-10-07 Emergency [facility] 1.2.840.114 [id number] Univers 15:02:00 17:36:00 Amarilis Rothman 350.1.13.10 ity of [place].2.[place] [id number] [facility] 084 Branch 2020-10-07 2020-10-07 Orders Doctor SUNIL 1.2.840.114 [id number] Univers 00:00:00 00:00:00 Only Unassigned, EDUARDO 350.1.13.10 ity of [facility] 4.2.7.2.686 Mehdi as [phone] [address] 2020-10-06 2020-10-06 Telephone SHARAD Ruiz 1.2.840.114 [id number] Univers 00:00:00 00:00:00 Ludmila Y HEALTH 350.1.13.10 i ty of [place] [phone] [address] 2020-09-15 2020-09-15 Outpatient PING, [facility] [id number] Univers 00:00:00 00:00:00 EDIL irineo [facility] 2020-09-09 2020-09-09 Outpatient R ANDREA, [facility] [id number] Univers 11:15:00 11:15:00 PREMA irineo [facility] 2020-08-22 2020-08-22 Outpatient R JOSEPH [facility] [id number] Univers 11:00:00 11:56:10 LUDMILA irineo [facility] 2020-08-22 2020-08-22 Outpatient R JOSEPH [facility] [id number] Univers 11:00:00 11:00:00 LUDMILA [facility] 2020-08-05 2020-08-05 Outpatient Raya INFANTE [facility] [id number] Univers 11:30:00 11:30:00 TRINIDAD irineo [facility] 2020-07-22 2020-07-22 Outpatient Raya INFANTE, [facility] [id number] Univers 10:00:00 10:00:00 TRINIDAD [facility] 2020-07-15 2020-07-15 Outpatient R PERSON, [facility] [id number] Univers 10:00:00 10:00:00 PREMA [facility] 2020-07-15 2020-07-15 Outpatient R PERSON, [facility] [id number] Univers 10:00:00 10:00:00 PREMA [facility] 2020-07-15 2020-07-15 Outpatient R [facility] [id number] Univers 10:00:00 10:00:00 [facility] 2020-07-09 2020-07-09 Outpatient R MARCELINO, [facility] [id number] Univers 10:00:00 10:00:00 IRAIS lisairineo alamo [facility] 2020-07-08 2020-07-08 Outpatient R [facility] [id number] Univers 10:00:00 10:00:00 [facility] 2020-06-24 2020-06-24 [facility] [id number] Univers 10:00:00 10:00:00 TRINIDAD [facility] 2020-06-17 2020-06-17 Outpatient R [facility] [id number] Univers 11:00:00 11:00:00 [facility] 2020-06-17 2020-06-17 [facility] [id number] Univers 11:00:00 11:00:00 EDIL [facility] 2020-06-03 2020-06-03 [facility] [id number] Univers 10:00:00 10:00:00 TRINIDAD [facility] 2020-04-18 2020-04-22 [facility] SH[facility] [id number] Univers 14:37:00 22:00:00 ILANA [facility] 2020-03-18 2020-03-18 Outpatient R [facility] [id number] Univers 14:40:00 14:40:00 [facility] 2020-03-14 2020-03-14 Outpatient R FRANKLYN SCHWARTZ [facility] [id number] Univers 09:20:00 09:20:00 FRANKLYN SCHWARTZ [facility] 2020-01-29 2020-01-29 Outpatient R [facility] [id number] Univers 08:00:00 08:00:00 [facility] 2020-01-15 2020-01-15 Outpatient R [facility] [id number] Univers 10:00:00 10:00:00 [facility] 2020-01-10 2020-01-13 Outpatient X YANET [facility] AMBER [id number] Univers 16:52:00 20:15:00 BEATRIS [facility] 2020-01-10 2020-01-10 [facility] [id number] Univers 15:30:00 15:30:00 ANNEMARIE [facility] 2020-01-09 2020-01-09 [facility] [id number] Univers 10:20:00 10:20:00 IRAIS goss o f [facility] 2020-01-01 2020-01-01 Outpatient R TALA [facility] [id number] Univers 15:30:00 15:30:00 BILAL ity [facility] 2019-11-22 2019-11-22 Outpatient R TALA [facility] [id number] Univers 14:00:00 14:00:00 BILAL ity [facility] 2019-11-15 2019-11-15 Outpatient R TYLER BASS [facility] [id number] Univers 15:45:00 15:45:00 ity [facility] 2019-11-01 2019-11-01 Outpatient R TALA [facility] [id number] Univers 15:00:00 15:00:00 BILAL ity [facility] 2019-10-30 2019-10-30 Outpatient R TALA [facility] [id number] Univers 15:00:00 15:00:00 BILAL ity [facility] 2019-10-18 2019-10-18 Outpatient R GAURANG [facility] [id number] Univers 15:00:00 15:00:00 LUDMILA ity [facility] 2019-07-04 2019-07-04 Outpatient R MARCELINO [facility] [id number] Univers 13:20:00 13:20:00 QIANGJUN ity o f [facility] 2019-06-29 2019-06-29 Outpatient R [facility] [id number] Univers 09:45:00 09:45:00 ity [facility] 2019-06-20 2019-06-20 Outpatient R GAURANG [facility] [id number] Univers 09:00:00 09:00:00 LUDMILA ity [facility] 2019-04-30 2019-04-30 Outpatient R DAYNA [facility] [id number] Univers 10:00:00 10:00:00 WONDIFUL ity o f [facility] 2019-03-01 2019-03-01 Outpatient R CAR HIDALGO [facility] [id number] Univers 20:00:00 20:00:00 CAR HIDALGO itirineo [facility] 2019-01-15 2019-01-15 Outpatient R DAYNA [facility] [id number] Univers 09:33:47 23:59:00 WONDIFUL ity o f [facility] 2019-01-15 2019-01-15 Outpatient R DAYNA [facility] [id number] Univers 09:33:47 23:59:00 RADHA alamo [facility] Results This patient has no known results.
[2022-07-23 11:01] LABS: Absolute Lymphocytes (CBC) 1.2 K/uL (0.7-4.9); Lymphocytes % 26.6 % (15.3-44.8); MCV 93.7 fL (80-100); MPV 8.2 fL (7.6-11.3); RBC Red Blood Cell Count 3.95 M/uL (3.86-4.86)
[2022-07-23] MEDS ORDERED: FAMOTIDINE 20 MG/2 ML VIAL IV ONE (11:09)
[2022-07-23] MEDS ORDERED: MAGNES/ALUMIN/SIMET 30ML UCUP ONE (11:09)
[2022-07-23 11:13] LABS: Protime INR 0.93
[2022-07-23 11:19] LABS: Magnesium 2.2 mg/dL (1.6-2.4); Potassium 3.4 mEq/L (3.5-5.1); Troponin High Sensitivity 3.7 pg/mL (<58.9)
--- NOTE | 2022-07-23 11:25 | RAD REPORT ---
EXAM DESCRIPTION: RAD - Chest Single View - 07/23/2022 11:18 am CLINICAL HISTORY: CHEST PAIN COMPARISON: Chest Single View dated 05/24/2022; Chest Single View dated 06/01/2021 FINDINGS: Lines: Pacemaker. Lungs: No evidence of edema or pneumonia. Pleural: No significant pleural effusions or pneumothorax. Cardiac: The heart size is within normal limits. Mediastinum: Within normal limits. Bones: No acute fractures. Other: None IMPRESSION: No acute cardiopulmonary disease.
[2022-07-23] MEDS ORDERED: NA CHLORIDE 0.9% 50 ML ONE (12:08)
[2022-07-23] MEDS ORDERED: ACETAMINOPHEN 500 MG TAB ONE (12:08)
[2022-07-23] MEDS ORDERED: METOCLOPRAMIDE 10 MG/2mL INJ ONE (12:08)
--- NOTE | 2022-07-23 15:12 | EDPHYS ---
Physician Documentation [facility] Name: Jennifer Petty Age: 61 yrs Sex: Female : 1960 Arrival Date: 07/23/2022 Time: 10:13 Bed 8 Private MD: ED Physician Bogdan Browne HPI: 07/23 10:33 This 61 yrs old Female presents to ER via EMS with complaints of Chest Pain. jr11 10:33 Patient is a 61-year-old female that states she has had chest pain since she was 28 jr11 years old. Patient states that she woke up with pain today, denies the pain going straight to the back denies the pain being a tearing pain or crossing the diaphragm. No syncope near syncope. States that the pain went to her left side of upper jaw. Nonexertional in nature. No shortness of breath, no fever, no changes in bowel movement. No urinary complaints review of system otherwise negative. Cards in [place]. . Historical: - Allergies: 10:24 Baclofen; cm10 10:24 GABAPENTIN; cm10 10:24 iodine I 131 Tosutumomab; cm10 10:24 Lisinopril; cm10 10:24 Losartan; cm10 10:24 Morphine; cm10 10:24 topiramate; cm10 10:24 tramadol; cm10 10:24 Cymbalta; cm10 10:24 Depakote; cm10 10:24 Macrobid; cm10 10:24 Midrin; cm10 10:24 Robaxin; cm10 10:24 Sinografin; cm10 10:24 Toradol; cm10 10:24 Adhesives; cm10 10:24 Ciprofloxacin; cm10 10:24 Septra; cm10 - Home Meds: 10:24 atorvastatin 10 mg oral tablet [Active]; Colace 100 mg oral capsule [Active]; cranberry cm10 450 mg oral tablet [Active]; diltiazem HCl 120 mg oral tablet [Active]; famotidine 40 mg Oral tablet [Active]; furosemide 20 mg Oral tablet [Active]; hydrocodone-acetaminophen 7.5-325 mg Oral tablet [Active]; hydroxychloroquine sulfate (bulk) [Active]; lactobacillus acidophilus (bulk) [Active]; levetiracetam 500 mg oral Tablet, Extended Release 24 hr [Active]; meloxicam 15 mg oral tablet [Active]; Plavix 75 mg Oral tablet [Active]; propranolol 40 mg Oral tablet [Active]; Vitamin D3 125 mcg (5,000 unit) oral tablet [Active]; - PMHx: 10:24 Allergic rhinitis; Anemia; CVA; dementia without behavioral disturbances; epilepsy; cm10 Fibromyalgia; GERD; Hyperlipidemia; Hypertensive disorder; Hypothyroidism; insomnia; Lupus erythematosus; peptic ulcer; protein-calorie malnutrition; vitamin d deficiency; Angina pectoris; - Immunization history:: Adult Immunizations unknown. - Social history:: Smoking status: Patient denies any tobacco usage or history of. ROS: 10:33 Constitutional: Negative for fever, chills Eyes: Negative for injury, pain, redness, jr11 and discharge, ENT: Negative for injury, pain, and discharge, Neck: Negative for injury, pain, and swelling, Cardiovascular: Negative for chest pain, palpitations, and edema, Respiratory: Negative for shortness of breath, cough Abdomen/GI: Negative for abdominal pain, nausea, vomiting : Negative for injury, bleeding, discharge, and swelling, MS/Extremity: Negative for injury and deformity, Skin: Negative for injury, rash, and discoloration. Exam: 10:33 Constitutional: This is a well developed, well nourished patient who is awake, alert, jr11 and in no acute distress. Head/Face: Normocephalic, atraumatic. Eyes: Extra-ocular motions intact. Lids and lashes normal. Conjunctiva and sclera are non-icteric and not injected. Cornea within normal limits. Periorbital areas with no swelling, redness, or edema. ENT: Nares patent. No nasal discharge, no septal abnormalities noted. Oropharynx with no redness, swelling, or masses, exudates, or evidence of obstruction, uvula midline. Mucous membranes moist. Neck: Trachea midline, no thyromegaly or masses palpated, and no cervical lymphadenopathy. Supple, full range of motion without nuchal rigidity, or vertebral point tenderness. No Meningismus. Chest/axilla: Normal chest wall appearance and motion. Nontender with no deformity. No lesions are appreciated. Respiratory: Lungs have equal breath sounds bilaterally, clear to auscultation and percussion. No rales, rhonchi or wheezes noted. No increased work of breathing, no retractions or nasal flaring. Abdomen/GI: Soft, non-tender, with normal bowel sounds. No distension or tympany. No guarding or rebound. No evidence of tenderness throughout. Back: No spinal tenderness. No costovertebral tenderness. Full range of motion. Skin: Warm, dry with normal turgor. Normal color with no rashes, no lesions, and no evidence of cellulitis. MS/ Extremity: Pulses equal, no cyanosis. Neurovascular intact. Full, normal range of motion. Vital Signs: 10:19 BP 151 / 87; Pulse 63; Resp 16; Temp 98.5; Pulse Ox 100% on R/A; Pain 8/10; cm10 10:30 BP 136 / 80; Pulse 59; Resp 16; Pulse Ox 100% on R/A; cm10 11:00 BP 128 / 87; Pulse 60; Resp 16; Pulse Ox 100% on R/A; cm10 12:00 BP 126 / 97; Pulse 61; Resp 16; Pulse Ox 100% on R/A; cm10 12:00 BP 136 / 89; Pulse 61; Resp 16; Pulse Ox 100% on R/A; cm10 12:09 BP 126 / 97; Pulse 60; Resp 16; Pulse Ox 100% ; Pain 9/10; ll1 13:00 BP 136 / 89; Pulse 60; Resp 16; Pulse Ox 100% on R/A; cm10 16:00 BP 165 / 83; Pulse 75; Resp 16; Pulse Ox 100% on R/A; cm10 16:30 BP 145 / 99; Pulse 74; Resp 16; Pulse Ox 100% on R/A; cm10 17:30 BP 152 / 93; Pulse 71; Resp 16; Pulse Ox 100% on R/A; cm10 10:19 Pain Scale: Adult cm10 12:09 Pain Scale: Adult ll1 MDM: 10:30 Patient medically screened. jr11 10:33 Differential diagnosis: abnormal EKG, anxiety, coronary artery disease congestive heart jr11 failure esophagitis, gastritis, gastroesophageal reflux disease (GERD). Data reviewed: vital signs, nurses notes. 10:46 ED course: EKG interpreted by me shows atrial PM 60 pr 196,qrs [address] changes.. jr11 15:10 ED course: Spoke to Dr Cadet, will be able to follow patient up early next week for jr11 stress test. Pt states she does have fibromyagia and chronic pain, requesting 1 dose of IV fentanyl for analgesia. Pt states this can be msk. No indication of ACS, delta trop neg. 07/23 10:22 Order name: Basic Metabolic Panel; Complete Time: :32 07/23 10:22 Order name: CBC with Diff; Complete Time: :32 07/23 10:22 Order name: D-Dimer; Complete Time: :32 07/23 10:22 Order name: Magnesium; Complete Time: :07/23 10:22 Order name: NT PRO-BNP; Complete Time: :07/23 10:22 Order name: PT-INR; Complete Time: 07/23 10:22 Order name: Troponin HS; Complete Time: 07/23 12:24 Order name: Troponin High Sensitivity; Complete Time: 14:59 07/23 10:22 Order name: XRAY Chest (1 view); Complete Time: 07/23 10:22 Order name: EKG; Complete Time: 10:22 07/23 10:22 Order name: Cardiac monitoring; Complete Time: 10:37 07/23 10:22 Order name: EKG - Nurse/Tech; Complete Time: 10:37 07/23 10:22 Order name: IV Saline Lock; Complete Time: 10:37 07/23 10:22 Order name: Labs collected and sent; Complete Time: 10:50 07/23 10:22 Order name: O2 Per Protocol; Complete Time: 10:37 07/23 10:22 Order name: O2 Sat Monitoring; Complete Time: 10:37 Administered Medications: 11:08 Drug: Alum-Mag Hydroxide-Simeth PO Suspension (200 mg-200 mg-20 mg/5 mL) 30 ml Route: cm10 PO; 11:31 Follow up: Response: No adverse reaction cm10 11:09 Drug: Famotidine IVP 20 mg Route: IVP; Site: right forearm; cm10 11:31 Follow up: Response: No adverse reaction cm10 12:08 Drug: Acetaminophen PO 1000 mg {Note: pain 9/10 ALLISON.} Route: PO; ll1 16:05 Follow up: Response: No adverse reaction ll1 12:09 Drug: metoCLOPramide IVP 10 mg Route: IVP; Site: right forearm; ll1 16:04 Follow up: Response: No adverse reaction ll1 16:04 Drug: fentaNYL (PF) IVP 50 mcg Route: IVP; Site: right forearm; ll1 17:54 Follow up: Response: No adverse reaction cm10 Disposition Summary: 07/23/22 15:12 [facility]charge [facility] Condition: Stable jr11 Diagnosis - Chest pain, unspecified jr11 Followup: jr11 - With: Private Physician - When: 1 - 2 days - Reason: Re-evaluation by your physician Discharge Instructions: - Discharge Summary Sheet jr11 - Nonspecific Chest Pain, Adult jr11 Forms: - Medication Reconciliation Form jr11 - Thank You Letter jr11 - Antibiotic Education jr11 - Prescription Opioid Use jr11 Signatures: Dispatcher [employer] Artis Herrmann RN RN ll1 Bogdan Browne MD MD jr11 Jennifer Mak RN RN cm10
--- NOTE | 2022-07-23 15:12 | ER ---
Nurse's Notes [facility] Name: Jennifer Petty Age: 61 yrs Sex: Female : 1960 Arrival Date: 07/23/2022 Time: 10:13 Bed 8 Private MD: Diagnosis: Chest pain, unspecified Presentation: 07/23 10:19 Chief complaint: Patient states: That she is still having left sided chest pain rated cm10 8/10. Pt describes the pain as heavy. Pt A\T\Ox4, respirations even and unlabored. EMS states: patient woke up this morning at 0900 with left sided chest pain that radiated to her left jaw. EMS reports that patient received Nitro SL x2 [employer]. 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 Coronavirus screen: Vaccine status: Patient reports receiving the 2nd dose of the covid vaccine. Client denies travel out of the [place] in the last 14 days. At this time, the client does not indicate any symptoms associated with coronavirus-19. Ebola Screen: No symptoms or risks identified at this time. Initial Sepsis Screen: Does the patient meet any 2 criteria? No. Patient's initial sepsis screen is negative. Does the patient have a suspected source of infection? No. Patient's initial sepsis screen is negative. Risk Assessment: Do you want to hurt yourself or someone else? Patient reports no desire to harm self or others. Onset of symptoms was July 23, 2022. Care prior to arrival: Medication(s) given: ASA, 81 mg, x 4, Nitroglycerin, 0.4 mg SL x 2, IV initiated. 20 GA, in the right forearm. Transition of care: [facility]. 10:19 Method Of Arrival: EMS: [facility] cm10 10:19 Acuity: JOSE ENRIQUE 2 cm10 Triage Assessment: 10:34 General: Appears in no apparent distress. Behavior is calm, cooperative. Pain: cm10 Complains of pain in left sided chest Pain radiates to left jaw Pain currently is 8 out of 10 on a pain scale. Quality of pain is described as heavy, Pain began 1 hour ago. Is continuous, Alleviated by medications, Also complains of shortness of breath. Neuro: No deficits noted. Level of Consciousness is awake, alert, obeys commands, Oriented to person, place, time, situation. Cardiovascular: Reports chest pain, Heart tones present Capillary refill < 3 seconds Rhythm is regular. Respiratory: No deficits noted. Airway is patent Respiratory effort is even, unlabored, Respiratory pattern is regular, symmetrical, Breath sounds are clear bilaterally. Musculoskeletal: Swelling present in right leg and left leg. Historical: - Allergies: 10:24 Baclofen; cm10 10:24 GABAPENTIN; cm10 10:24 iodine I 131 Tosutumomab; cm10 10:24 Lisinopril; cm10 10:24 Losartan; cm10 10:24 Morphine; cm10 10:24 topiramate; cm10 10:24 tramadol; cm10 10:24 Cymbalta; cm10 10:24 Depakote; cm10 10:24 Macrobid; cm10 10:24 Midrin; cm10 10:24 Robaxin; cm10 10:24 Sinografin; cm10 10:24 Toradol; cm10 10:24 Adhesives; cm10 10:24 Ciprofloxacin; cm10 10:24 Septra; cm10 - Home Meds: 10:24 atorvastatin 10 mg oral tablet [Active]; Colace 100 mg oral capsule [Active]; cranberry cm10 450 mg oral tablet [Active]; diltiazem HCl 120 mg oral tablet [Active]; famotidine 40 mg Oral tablet [Active]; furosemide 20 mg Oral tablet [Active]; hydrocodone-acetaminophen 7.5-325 mg Oral tablet [Active]; hydroxychloroquine sulfate (bulk) [Active]; lactobacillus acidophilus (bulk) [Active]; levetiracetam 500 mg oral Tablet, Extended Release 24 hr [Active]; meloxicam 15 mg oral tablet [Active]; Plavix 75 mg Oral tablet [Active]; propranolol 40 mg Oral tablet [Active]; Vitamin D3 125 mcg (5,000 unit) oral tablet [Active]; - PMHx: 10:24 Allergic rhinitis; Anemia; CVA; dementia without behavioral disturbances; epilepsy; cm10 Fibromyalgia; GERD; Hyperlipidemia; Hypertensive disorder; Hypothyroidism; insomnia; Lupus erythematosus; peptic ulcer; protein-calorie malnutrition; vitamin d deficiency; Angina pectoris; - Immunization history:: Adult Immunizations unknown. - Social history:: Smoking status: Patient denies any tobacco usage or history of. Screenin:36 [facility] ED Fall Risk Assessment (Adult) History of falling in the last 3 months, cm10 including since admission No falls in past 3 months (0 pts) Confusion or Disorientation No (0 pts) Intoxicated or Sedated No (0 pts) Impaired Gait No (0 pts) Mobility Assist Device Used No (0 pt) Altered Elimination No (0 pt) Score/Fall Risk Level 0 - 2 = Low Risk. Abuse screen: Denies threats or abuse. Denies injuries from another. Nutritional screening: No deficits noted. Tuberculosis screening: No symptoms or risk factors identified. Assessment: 10:36 Reassessment: No changes from previously documented assessment. cm10 10:50 Reassessment: No changes from previously documented assessment. Patient and/or family iw updated on plan of care and expected duration. Pain level reassessed. 11:48 Reassessment: No changes from previously documented assessment. Patient and/or family cm10 updated on plan of care and expected duration. Pain level reassessed. Patient is alert, oriented x 3, equal unlabored respirations, skin warm/dry/pink. 11:50 Reassessment: No changes from previously documented assessment. Gait steady to restroom.ll1 12:09 Reassessment: No changes from previously documented assessment. Patient and/or family ll1 updated on plan of care and expected duration. Pain level reassessed. Patient is alert, oriented x 3, equal unlabored respirations, skin warm/dry/pink. 13:09 Reassessment: Patient appears in no apparent distress at this time. No changes from kc6 previously documented assessment. Patient and/or family updated on plan of care and expected duration. Pain level reassessed. Patient is alert, oriented x 3, equal unlabored respirations, skin warm/dry/pink. 14:20 Reassessment: No changes from previously documented assessment. Tech drawing 2nd cm10 troponin. 16:05 Reassessment: No changes from previously documented assessment. Patient and/or family ll1 updated on plan of care and expected duration. Pain level reassessed. Patient is alert, oriented x 3, equal unlabored respirations, skin warm/dry/pink. Vital Signs: 10:19 BP 151 / 87; Pulse 63; Resp 16; Temp 98.5; Pulse Ox 100% on R/A; Pain 8/10; cm10 10:30 BP 136 / 80; Pulse 59; Resp 16; Pulse Ox 100% on R/A; cm10 11:00 BP 128 / 87; Pulse 60; Resp 16; Pulse Ox 100% on R/A; cm10 12:00 BP 126 / 97; Pulse 61; Resp 16; Pulse Ox 100% on R/A; cm10 12:00 BP 136 / 89; Pulse 61; Resp 16; Pulse Ox 100% on R/A; cm10 12:09 BP 126 / 97; Pulse 60; Resp 16; Pulse Ox 100% ; Pain 9/10; ll1 13:00 BP 136 / 89; Pulse 60; Resp 16; Pulse Ox 100% on R/A; cm10 16:00 BP 165 / 83; Pulse 75; Resp 16; Pulse Ox 100% on R/A; cm10 16:30 BP 145 / 99; Pulse 74; Resp 16; Pulse Ox 100% on R/A; cm10 17:30 BP 152 / 93; Pulse 71; Resp 16; Pulse Ox 100% on R/A; cm10 10:19 Pain Scale: Adult cm10 12:09 Pain Scale: Adult ll1 ED Course: 10:19 Patient arrived in ED. cm10 10:20 Bogdan Browne MD is Attending Physician. jr11 10:23 Triage completed. cm10 10:33 Arm band placed on Patient placed in an exam room, on a stretcher. cm10 10:36 Patient has correct armband on for positive identification. Bed in low position. Call cm10 light in reach. Side rails up X2. Client placed on continuous cardiac and pulse oximetry monitoring. NIBP monitoring applied. monitor and storage bin tender on. 10:52 Jennifer Mak, RN is Primary Nurse. cm10 11:20 XRAY Chest (1 view) In Process Unspecified. EDMS 11:48 No apparent distress. cm10 12:03 called patient Form Grader Operator Dr. Benson at [phone]/ his nurse Lis connected with Dr. olivia Interiano. 13:32 Pt ambulating to restroom at this time. Pt states that she is still having chest pain, cm10 but it is not as bad. 17:52 No provider procedures requiring assistance completed. IV discontinued, intact, cm10 bleeding controlled, No redness/swelling at site. Pressure dressing applied. Patient maintains SpO2 saturation greater than 95% on room air. Administered Medications: 11:08 Drug: Alum-Mag Hydroxide-Simeth PO Suspension (200 mg-200 mg-20 mg/5 mL) 30 ml Route: cm10 PO; 11:31 Follow up: Response: No adverse reaction cm10 11:09 Drug: Famotidine IVP 20 mg Route: IVP; Site: right forearm; cm10 11:31 Follow up: Response: No adverse reaction cm10 12:08 Drug: Acetaminophen PO 1000 mg {Note: pain 9/10 ALLISON.} Route: PO; ll1 16:05 Follow up: Response: No adverse reaction ll1 12:09 Drug: metoCLOPramide IVP 10 mg Route: IVP; Site: right forearm; ll1 16:04 Follow up: Response: No adverse reaction ll1 16:04 Drug: fentaNYL (PF) IVP 50 mcg Route: IVP; Site: right forearm; ll1 17:54 Follow up: Response: No adverse reaction cm10 Medication: 10:36 VIS not applicable for this client. cm10 Outcome: 15:12 Discharge ordered by . karen 17:52 Discharged to intermediate. Report called to [place]. Pt leaving via stretcher via [facility]. 17:52 Condition: good 17:52 Discharge instructions given to patient, Instructed on discharge instructions, follow up and referral plans. Demonstrated understanding of instructions, follow-up care. 17:54 Patient left the ED. cm10 Signatures: Dispatcher [employer] Lennie Millan, RN RN Tangela Locke Lynsay, RN RN ll1 Bogdan Browne MD MD jr11 Sirisha Cruz RN RN [id number] Jennifer Mak RN RN cm10 Corrections: (The following items were deleted from the chart) 18:11 17:52 Discharged to intermediate. Report called to [facility]10 10
[2022-07-23] MEDS ORDERED: FENTANYL CITR 100 MCG/2 ML ONE (15:45)
[2022-07-23 19:29] VITALS: TEMP 98.5; O2SAT 100
[2022-07-23 19:44] VITALS: BP 152/93
--- NOTE | 2022-07-26 17:56 | EKG ---
Test Date: 2022-07-23 Test Time: 10:34:59 Ged Teacher: ANGEL MEASUREMENT RESULTS: Intervals: Rate: 60 ID: [id number] QRSD: 88 QT: 468 QTc: 468 [place]: P: 30 ID: [id number] QRS: 20 T: 62 INTERPRETIVE STATEMENTS: Electronic atrial pacemaker Compared to ECG 06/01/2021 17:52:30 Sinus rhythm no longer present Electronically Signed On 07-26-22 17:51:37 CDT by Lucas Luis
== END 2022-07-23 17:54 | disposition home or self-care (01) ==
LOC: ER 10:13
DX: R07.9 Chest pain, unspecified (principal); I10 Essential (primary) hypertension; Z86.73 Personal history of transient ischemic attack (TIA), and cerebral infarction without residual deficits; F03.90 Unspecified dementia, unspecified severity, without behavioral disturbance, psychotic disturbance, mood disturbance, and anxiety; Z88.1 Allergy status to other antibiotic agents; Z88.5 Allergy status to narcotic agent; Z88.6 Allergy status to analgesic agent; Z88.8 Allergy status to other drugs, medicaments and biological substances; Z91.048 Other nonmedicinal substance allergy status; Z79.01 Long term (current) use of anticoagulants
CPT/HCPCS: 85025; 80048; 36415; 83735; 85610; 85379; 84484 ×2; 83880; 71045; 96375; 96374; 99285; J2765; J3010; 93005

== ENCOUNTER → 2023-03-08 | Emergency (ER) | payer OTHER ==
[~2023-03-08] MED LIST: ACETAMINOPHEN 500 MG TAB ONE; CYCLOBENZAPRINE 10 MG TAB ONE; FENTANYL CITR 100 MCG/2 ML ONE; IBUPROFEN 200 MG TAB PO ONE; LIDOCAINE 4% PATCH ONE
--- OUTSIDE RECORDS SUMMARY | 2023-03-08 17:07 | XMS REPORT | Continuity of Care Document ---
Author Name Unknown Address [address] [facility] [address] [place] [address] [facility] Address [address] [facility] [address] [place] [address] Care Team Providers Care Health Facilities Surveyor Name Role Phone JERRI ELKINS Primary Care Physician CAROLA Arcos Attending Clinician Unavailable MEL CARRILLO Attending Clinician Unav MEL Herndon Attending Clinician Unav ailTHAI Joyce Attending Clinician UnavailWanda Merchant MD Attending Clinician [phone] Irais Benson MD Attending Clinician [phone] IRAIS BENSON Attending Clinician Unavailable Doctor Unassigned, [place] Attending Clinician U navailable CRISTAL ONTIVEROS Attending Clinician Unavailable Cristal Katz Attending Clinician [phone] Thai Salguero MD Attending Clinician [phone] EDIL FENG Attending Clinician Unavailable Ping AMIN, Edil Attending Clinician [phone] Carola Cruz MD Attending Clinician [phone] [facility] Attending Clinician Unavailable Adalberto Mera MD Attending Clinician [phone] LUDMILA RUIZ Attending Clinician Unavailable Ludmila Ruiz MD Attending Clinician [phone] WANDA SOTO Attending Clinician UnavailKRISTI Fernandez Attending Clinician KRISTI Alston Attending Clinician Solitario Shaw MD, Dagoberto Attending Clinician [phone] DAGOBERTO SHAW Attending Clinician Unavailable Jose Angel VIERA, Heaven Attending Clinician Unava abdi Peralta MD, Marco A Abbott Attending Clinician + BRENT WELLS Attending Clinician UnavailCHARLOTTE Enrique Attending Clinician Unavaila maribell Villalpando ATOMIC PHYSICS PROFESSOR, [place] Attending Clinician [phone] Devendra VIERA, Arina Attending Clinician Unavailable PATRICIA BOLAÑOS Attending Clinician Unavailable Noel Richmond DO Attending Clinician [phone] John AMIN, Tom Attending Clinician [phone] Thomas AMIN, Patricia Attending Clinician [phone] Marita AMIN, Franklyn Damico Attending Clinician [phone] Francesca AMIN, Alta Attending Clinician + [phone] Bhumika AMIN, Jamey Barton Attending Clinician + [phone] SHAISTA GUERRA Attending Clinician Unavailabl chalo Guerra MD, Shaista Attending Clinician [phone] Only, Adc Test Attending Clinician Unavailable Milena OROPEZA Attending Clinician Unavailable Milena Dickey Attending Clinician [phone] Crystal MUNOZ, Maryan F Attending Clinician [phone] Kylee Delarosa MD Attending Clinician [phone] Leslye Franz MD Attending Clinician [phone] Radha Holden MD Attending Clinician [phone] Har[facility]a AMIN, [facility]ending [facility] [phone] BALDEMAR MEJIAS Attending Clinician Unavaila maribell Mejias MD, Baldemar Kate Attending Clinician [phone] Ilana Alcala MD Attending Clinician Amarilis Bergman DO Attending Clinician + [phone] PREMA MENDEZ Attending Clinician Unavailable TRINIDAD INFANTE Attending Clinician Unavailab ILANA Young Attending Clinician Un available FRANKLYN SCHWARTZ Attending Clinician Unavail able FRANKLYN SCHWARTZ Attending Clinician Unavail able BEATRIS HOLT Attending Clinician Unavailable ANNEMARIE EDGAR Attending Clinician Unavailable TYLER BASS Attending Clinician Unavailable LUDMILA MERLOS Attending Clinician Unavailable RADHA MCINTOSH Attending Clinician Unavaila ble SARINANASRODRI, GERRYHIShyam Sellers Attending Clinician Unavaila ble ROCKY, STRAHIL T Attending Clinician Unavaila LUDMILA Viveros Admitting Clinician Unavailable EDIL FENG Admitting Clinician Unavailable DAGOBERTO SHAW Admitting Clinician Unavailable Dagoberto Shaw MD Admitting Clinician CHARLOTTE VILLALPANDO Admitting Clinician Unavaila PATRICIA Dunn Admitting Clinician Unavailable Patricia Bolaños MD Admitting Clinician Ludmila Ruiz MD Admitting Clinician SHAISTA GUERRA Admitting Clinician Unavailabl Shaista Scott MD Admitting Clinician [phone] Milena OROPEZA Admitting Clinician Unavailable Leslye Franz MD Admitting Clinician LESLYE FRANZ Admitting Clinician Unavailable DENA ESTEBAN Admitting Clinician Unavailable ERLIN SCHWARTZ Admitting Clinician Unavailab RADHA Florentino Admitting Clinician Unavaila maribell Payers Payer Name Policy Type Policy Number Effective Date Expirati on Date Source [facility]Y [facility] [id number] 2019 00:00:00 [place] [id number] 2017 00:00:00 [facility] [id number] 2022 00:00:00 MEDICARE PART A \\T\\ B [id number] 1996 00:00:00 2022 00:00:00 Problems Condition Name Condition Details Condition Category Status Onset Date Resolution Date Last Treatment Date Treating Clinician Comments Source Preop cardiovasc ular exam Preop cardiovasc ular exam Disease Active 2022-02 00:00: 00 [facility] SVT (supravent ricular tachycardi a) SVT (supravent ricular tachycardi a) Disease Active 2022-02 2-07 00:00: 00 [facility] Slow transit constipati on Slow transit constipati on Disease Active 4-27 00:00: 00 [facility] Incontinen ce of feces with fecal urgency Incontinen ce of feces with fecal urgency Disease Active 4-27 00:00: 00 [facility] Ventral hernia without obstructio n or gangrene Ventral hernia without obstructio n or gangrene Disease Active 2021-02 1-21 00:00: 00 [facility] Incisional hernia, without obstructio n or gangrene Incisional hernia, without obstructio n or gangrene Disease Active 8-28 00:00: 00 [facility] Frequent falls Frequent falls Disease Active 4-07 00:00: 00 [facility] Anemia, unspecifie d Anemia, unspecifie d Disease Active 3-30 00:00: 00 [facility] Other specified postproced ural states Other specified postproced ural states Disease Active 3-24 00:00: 00 [facility] Attention to colostomy Attention to colostomy Disease Active 3-16 00:00: 00 [facility] Colostomy status Colostomy status Disease Active 3-16 00:00: 00 [facility] Stercoral ulcer of large intestine Stercoral ulcer of large intestine Disease Active 3- 00:00: 00 Overview: Formattin g of this note might be different from the original. Added automatic ally from request for surgery [id number] [facility] Colostomy in place Colostomy in place Disease Active 2-11 00:00: 00 Overview: Formattin g of this note might be different from the original. Added automatic ally from request for surgery [id number] [facility] GIB (gastroint estinal bleeding) GIB (gastroint estinal bleeding) Disease Active 1-09 00:00: 00 [facility] Melena Melena Disease Active 108 00:00: 00 Overview: Formattin g of this note might be different from the original. Added automatic ally from request for surgery [id number] [facility] Parastomal hernia without obstructio n or gangrene Parastomal hernia without obstructio n or gangrene Disease Active 2020-02 0-19 00:00: 00 [facility] Syncope and collapse Syncope and collapse Disease Active 09-15 00:00: 00 [facility] Dyslipidem ia Dyslipidem ia Disease Active 09-15 00:00: 00 [facility] Sinus pause status post PPM Sinus pause status post PPM Disease Active 09-15 00:00: 00 [facility] Hypokalemi a Hypokalemi a Disease Active 09-15 00:00: 00 [facility] Pain, unspecifie d Pain, unspecifie d Disease Active 06-02 00:00: 00 [facility] 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 Disease Active 05-23 00:00: 00 [facility] 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 Disease Active 05-23 00:00: 00 [facility] Cerebral infarction , unspecifie d Cerebral infarction , unspecifie d Disease Active 05-23 00:00: 00 [facility] Diaphragma tic hernia with obstructio n, without gangrene Diaphragma tic hernia with obstructio n, without gangrene Disease Active 16 00:00: 00 [facility] Diverticul osis of large intestine without perforatio n or abscess without bleeding Diverticul osis of large intestine without perforatio n or abscess without bleeding Disease Active 416 00:00: 00 [facility] Hypertensi ve heart disease without heart failure Hypertensi ve heart disease without heart failure Disease Active 16 00:00: 00 [facility] Hepatomega ly, not elsewhere classified Hepatomega ly, not elsewhere classified Disease Active 416 00:00: 00 [facility] CHCF (current) use of opiate analgesic CHCF (current) use of opiate analgesic Disease Active 416 00:00: 00 [facility] Muscle weakness (generaliz ed) Muscle weakness (generaliz ed) Disease Active 416 00:00: 00 [facility] Other abnormalit ies of gait and mobility Other abnormalit ies of gait and mobility Disease Active 16 00:00: 00 [facility] Other lack of coordinati on Other lack of coordinati on Disease Active 16 00:00: 00 [facility] Other seizures Other seizures Disease Active 16 00:00: 00 [facility] Personal history of colonic polyps Personal history of colonic polyps Disease Active 16 00:00: 00 [facility] Polyneurop athy, unspecifie d Polyneurop athy, unspecifie d Disease Active 16 00:00: 00 [facility] Systemic lupus erythemato liliya, unspecifie d Systemic lupus erythemato liliya, unspecifie d Disease Active 16 00:00: 00 [facility] Noncomplia nce with treatment regimen Noncomplia nce with treatment regimen Disease Active 412 00:00: 00 [facility] Acute blood loss anemia Acute blood loss anemia Disease Active 4-07 00:00: 00 [facility] Perforatio n of sigmoid colon s/p [facility] on 05/13/2020 Perforatio n of sigmoid colon s/p [facility] on 05/13/2020 Disease Active 4-06 00:00: 00 [facility] Therapeuti c opioid-ind uced constipati on (OIC) Therapeuti c opioid-ind uced constipati on (OIC) Disease Active 05-13 00:00: 00 [facility] Chronic, continuous use of opioids Chronic, continuous use of opioids Disease Recurre nce 05-13 00:00: 00 Overview: Formattin g of this note might be different from the original. Percocet [facility] Peritoniti s Peritoniti s Disease Active 05-13 00:00: 00 [facility] Atelectasi s Atelectasi s Disease Active 05-13 00:00: 00 [facility] Perforatio n of intestine (nontrauma tic) Perforatio n of intestine (nontrauma tic) Disease Active 05-13 00:00: 00 [facility] Encounter for surgical aftercare following surgery on the digestive system Encounter for surgical aftercare following surgery on the digestive system Disease Active 05-13 00:00: 00 [facility] Klebsiella pneumoniae (k. pneumoniae ) as the cause of diseases classified elsewhere Klebsiella pneumoniae (k. pneumoniae ) as the cause of diseases classified elsewhere Disease Active 05-13 00:00: 00 [facility] Opioid use, unspecifie d, uncomplica jung Opioid use, unspecifie d, uncomplica jung Disease Active 05-13 00:00: 00 [facility] Stroke of uncertain pathology Stroke of uncertain pathology Disease Active 3-13 00:00: 00 [facility] Discoid lupus Discoid lupus Disease Active 2-10 00:00: 00 [facility] History of systemic lupus erythemato liliya (SLE) History of systemic lupus erythemato liliya (SLE) Disease Active 2-10 00:00: 00 [facility] History of seizure History of seizure Disease Active 2018-02 2-05 00:00: 00 [facility] Mixed hyperlipid emia Mixed hyperlipid emia Disease Active 9-20 00:00: 00 [facility] Prediabete s Prediabete s Disease Active 4-10 00:00: 00 [facility] Kidney lesion, [place], right Kidney lesion, [place], right Disease Active 05-01 00:00: 00 Overview: Formattin g of this note might be different from the original. likely angiolipo ma per Radiology [facility] Kidney lesion, [place], right Kidney lesion, [place], right Disease Active 05-01 00:00: 00 Overview: Formattin g of this note might be different from the original. likely angiolipo ma per Radiology [facility] Hyperthyro idism Hyperthyro idism Disease Active 2017-02 00:00: 00 [facility] Obesity (BMI 30-39.9) Obesity (BMI 30-39.9) Disease Active 2017-02 00:00: 00 [facility] Vitamin D deficiency Vitamin D deficiency Disease Active 10-27 00:00: 00 [facility] Chronic insomnia Chronic insomnia Disease Active 10-16 00:00: 00 [facility] Chronic migraine without aura without status migrainosu s, not intractabl e Chronic migraine without aura without status migrainosu s, not intractabl e Disease Active 10-16 00:00: 00 [facility] Neuropathy Neuropathy Disease Active 10-16 00:00: 00 [facility] Pacemaker Pacemaker Disease Recurre nce 10-16 00:00: 00 [facility] Essential hypertensi on Essential hypertensi on Disease Active 10-16 00:00: 00 [facility] History of hepatitis C History of hepatitis C Disease Active 10-16 00:00: 00 [facility] PUD (peptic ulcer disease) PUD (peptic ulcer disease) Disease Active 10-16 00:00: 00 [facility] Gastroesop hageal reflux disease, esophagiti s presence not specified Gastroesop hageal reflux disease, esophagiti s presence not specified Disease Active 10-16 00:00: 00 [facility] History of urinary tract surgery History of urinary tract surgery Disease Active 10-16 00:00: 00 [facility] Fibromyalg ia Fibromyalg ia Disease Active 10-16 00:00: 00 [facility] Parasomnia Parasomnia Disease Active 10-16 00:00: 00 [facility] Anxiety Anxiety Disease Active 02-20 00:00: 00 Overview: Formattin g of this note might be different from the original. Formattin g of this note might be different from the original. H/o cx pain [facility] Vitamin B12 deficiency Vitamin B12 deficiency Disease Active 02-20 00:00: 00 [facility] IBS (irritable bowel syndrome) IBS (irritable bowel syndrome) Disease Active 2007-02 00:00: 00 [facility] Visceral hyperalges ia Visceral hyperalges ia Disease Active 2007-02 00:00: 00 [facility] Allergic rhinitis Allergic rhinitis Disease Active [facility] Cyst of left kidney Cyst of left kidney Disease Active [facility] Allergies, Adverse Reactions, Alerts Allergy Name Allergy Type Status Severity Reaction(s) Onset Date Inactive Date Treating Clinician Comments Source PREGABAL IN DRUG INGREDI Active Low Swelling 2022-0 7-18 00:00: 00 [facility] Pregabal in Propensi ty to adverse reaction s Active Swelling 2022-0 7-18 00:00: 00 [facility] TOSITUMO MAB DRUG INGREDI Active Unknown-Cmnt 2022-0 3-02 00:00: 00 [facility] Tositumo mab Propensi ty to adverse reaction s Active Unknown - See comments 3-02 00:00: 00 [facility] Gabapent in Drug Allergy Active Palpitations 2021-0 3-16 00:00: 00 [facility] GABAPENT IN DRUG INGREDI Active Palpitations 2021-0 3-16 00:00: 00 [facility] Losartan Propensi ty to adverse reaction s Active Cough 2019-0 -27 00:00: 00 [facility] LOSARTAN DRUG INGREDI Active COUGH 2019-0 5-27 00:00: 00 [facility] Lisinopr il Propensi ty to adverse reaction s Active Cough 10-16 00:00: 00 [facility] LISINOPR IL DRUG INGREDI Active COUGH 10-16 00:00: 00 [facility] Baclofen Propensi ty to adverse reaction s Active Hallucinatio ns 09-28 00:00: 00 [facility] Ciproflo xacin Propensi ty to adverse reaction s Active Hives 09-28 00:00: 00 [facility] Duloxeti ne Propensi ty to adverse reaction s Active Other - See comments 09-28 00:00: 00 Transamin itis [facility] Divalpro ex Sodium Propensi ty to adverse reaction s Active Hives 09-28 00:00: 00 [facility] Gabapent in Enacarbi l Propensi ty to adverse reaction s Active Unknown - See comments 09-28 00:00: 00 [facility] Nitrofur antoin Monohyd/ M-Cryst Propensi ty to adverse reaction s Active Hives 09-28 00:00: 00 [facility] Isometh- Dichlora l-Acetam inophn Propensi ty to adverse reaction s Active Shortness of Breath 09-28 00:00: 00 [facility] Morphine Sulfate Propensi ty to adverse reaction s Active Hives 09-28 00:00: 00 [facility] Methocar bamol Propensi ty to adverse reaction s Active Diarrhea 09-28 00:00: 00 [facility] Septra I.V. Propensi ty to adverse reaction s Active Shortness of Breath 09-28 00:00: 00 [facility] Diatrizo ate And Iodipami de Amber Propensi ty to adverse reaction s Active Hives 09-28 00:00: 00 [facility] Topirama te Propensi ty to adverse reaction s Active Other - See comments 09-28 00:00: 00 Tingling, overwhelm ing feeliing [facility] Ketorola c Trometha mine Propensi ty to adverse reaction s Active Other - See comments 09-28 00:00: 00 Restless legs [facility] Tramadol Propensi ty to adverse reaction s Active Other - See comments 09-28 00:00: 00 shaky legs [facility] Adhesive Propensi ty to adverse reaction s Active Other - See comments 09-28 00:00: 00 redness [facility] Iodine And Iodide Containi ng Products Propensi ty to adverse reaction s Active Hives 09-28 00:00: 00 [facility] ADHESIVE Drug Class Active Other-Cmnt 09-28 00:00: 00 [facility] BACLOFEN DRUG INGREDI Active Hallucinates 09-28 00:00: 00 [facility] CIPROFLO XACIN DRUG INGREDI Active Hives 09-28 00:00: 00 [facility] IODINE AND IODIDE CONTAINI NG PRODUCTS Drug Class Active Hives 09-28 00:00: 00 [facility] DULOXETI NE DRUG INGREDI Active Other-Cmnt 09-28 00:00: 00 [facility] DIVALPRO EX SODIUM DRUG INGREDI Active Hives 09-28 00:00: 00 [facility] GABAPENT IN ENACARBI L DRUG INGREDI Active Unknown-Cmnt 09-28 00:00: 00 [facility] NITROFUR ANTOIN MONOHYD/ M-CRYST DRUG Active Hives 09-28 00:00: 00 [facility] ISOMETH- DICHLORA L-ACETAM INOPHN DRUG Active Hives 09-28 00:00: 00 [facility] MORPHINE SULFATE DRUG INGREDI Active Hives 09-28 00:00: 00 [facility] METHOCAR BAMOL DRUG INGREDI Active Diarrhea 09-28 00:00: 00 [facility] SEPTRA I.V. DRUG Active Hives 09-28 00:00: 00 [facility] DIATRIZO ATE AND IODIPAMI DE AMBER DRUG Active Hives 09-28 00:00: 00 [facility] TOPIRAMA TE DRUG INGREDI Active Other-Cmnt 09-28 00:00: 00 [facility] KETOROLA C TROMETHA MINE DRUG INGREDI Active Hives 09-28 00:00: 00 [facility] TRAMADOL DRUG INGREDI Active Other-Cmnt 09-28 00:00: 00 [facility] Social History Social Habit Start Date Stop Date Quantity Comments Source Gender [facility] History SDOH Alcohol Frequency [facility] History SDOH Alcohol Std Drinks [facility] History SDOH Alcohol Binge [facility] Alcohol intake 2022-12-23 00:00:00 2022-12-23 00:00:00 Current drinker of alcohol (finding) [facility] History of Social function 2022-10-07 00:00:00 2022-10-07 00:00:[address] [facility] Exposure to SARS-CoV-2 (event) 2022-05-24 00:00:00 2022-06-03 09:25:[address] [facility] Tobacco use and exposure 2021-09-14 00:00:00 2021-09-14 00:00:00 Smokeless tobacco non-user [facility] Education - What is the highest level of school you have completed or the highest degree you have received? 2020-01-11 00:00:00 2020-01-11 00:00:00 Associate degree: academic program [facility] Alcohol Comment 2018-10-10 00:00:00 2018-10-10 00:00:[address] [facility] Sex Ass[birth year] At 1960 00:00:00 1960 00:00:[address] [facility] Smoking Status Start Date Stop Date Source Never smoked tobacco [facility] Medications Ordered Medication Name Filled Medication Name Start Date Stop Date Current Medication? Ordering Clinician Indication Dosage Frequency Signature (SIG) Comments Components Source clobetasoL 0.05 % cream 2022-02 030 00:00: 00 Yes [id number] Apply twice daily to feet where the redness. [facility] clobetasoL 0.05 % cream 2022-02 030 00:00: 00 Yes [id number] Apply twice daily to feet where the redness. [facility] clobetasoL 0.05 % cream 2022-02 030 00:00: 00 Yes [id number] Apply twice daily to feet where the redness. [facility] clobetasoL 0.05 % cream 2022-02 030 00:00: 00 Yes [id number] Apply twice daily to feet where the redness. [facility] clobetasoL 0.05 % cream 2022-02 030 00:00: 00 Yes [id number] Apply twice daily to feet where the redness. [facility] clobetasoL 0.05 % cream 2022-02 0 00:00: 00 Yes [id number] Apply twice daily to feet where the redness. [facility] clobetasoL 0.05 % cream 2022-02 0 00:00: 00 Yes [id number] Apply twice daily to feet where the redness. [facility] clobetasoL 0.05 % cream 2022-02 0 00:00: 00 Yes [id number] Apply twice daily to feet where the redness. [facility] clobetasoL 0.05 % cream 2022-02 030 00:00: 00 Yes [id number] Apply twice daily to feet where the redness. [facility] clobetasoL 0.05 % cream 2022-02 030 00:00: 00 Yes [id number] Apply twice daily to feet where the redness. [facility] clobetasoL 0.05 % cream 2022-02 030 00:00: 00 Yes [id number] Apply twice daily to feet where the redness. [facility] clobetasoL 0.05 % cream 2022-02 0-30 00:00: 00 Yes [id number] Apply twice daily to feet where the redness. [facility] clobetasoL 0.05 % cream 2022-02 0-30 00:00: 00 Yes [id number] Apply twice daily to feet where the redness. [facility] clobetasoL 0.05 % cream 2022-02 0-30 00:00: 00 Yes [id number] Apply twice daily to feet where the redness. [facility] clobetasoL 0.05 % cream 2022-02 0-30 00:00: 00 Yes [id number] Apply twice daily to feet where the redness. [facility] clobetasoL 0.05 % cream 2022-02 0-30 00:00: 00 Yes [id number] Apply twice daily to feet where the redness. [facility] clobetasoL 0.05 % cream 2022-02 0-30 00:00: 00 Yes [id number] Apply twice daily to feet where the redness. [facility] clobetasoL 0.05 % cream 2022-02 0-30 00:00: 00 Yes [id number] Apply twice daily to feet where the redness. [facility] clobetasoL 0.05 % cream 2022-02 030 00:00: 00 Yes [id number] Apply twice daily to feet where the redness. [facility] clobetasoL 0.05 % cream 2022-02 030 00:00: 00 Yes [id number] Apply twice daily to feet where the redness. [facility] clobetasoL 0.05 % cream 2022-02 030 00:00: 00 Yes [id number] Apply twice daily to feet where the redness. [facility] clobetasoL 0.05 % cream 2022-02 030 00:00: 00 Yes [id number] Apply twice daily to feet where the redness. [facility] clobetasoL 0.05 % cream 2022-02 0-30 00:00: 00 Yes [id number] Apply twice daily to feet where the redness. [facility] propranoloL 40 mg tablet 2022-02 0-03 09:11: 08 11-09 00:00 :00 No 40mg Take 40 mg by mouth 3 (three) times daily. [facility] MELOXICAM ORAL 2022-02 0-03 09:: 11-09 00:00 :00 No 15mg Take 15 mg by mouth. [facility] cephALEXin 500 mg capsule 2022-02 0-03 09:: 11-09 00:00 :00 No 500mg Take 1 capsule by mouth 4 (four) times daily. [facility] propranoloL 40 mg tablet 2022-02 0 09:: 11-09 00:00 :00 No 40mg Take 40 mg by mouth 3 (three) times daily. [facility] MELOXICAM ORAL 2022-02 0 09:: 11-09 00:00 :00 No 15mg Take 15 mg by mouth. [facility] cephALEXin 500 mg capsule 2022-02 0 09:: 11-09 00:00 :00 No 500mg Take 1 capsule by mouth 4 (four) times daily. [facility] tacrolimus 0.1 % ointment 11-01 00:00: 00 Yes [id number] Apply to area(s) 2 (two) times daily. Safe for the face. [facility] doxycycline monohydrate 100 mg capsule 11-01 00:00: 00 Yes [id number] 100mg Take 1 capsule by mouth in the morning and 1 capsule in the evening. [facility] Compression Socks, Medium Misc 11-01 00:00: 00 Yes [id number] Use as directed [facility] tacrolimus 0.1 % ointment 11-01 00:00: 00 Yes [id number] Apply to area(s) 2 (two) times daily. Safe for the face. [facility] doxycycline monohydrate 100 mg capsule 11-01 00:00: 00 Yes [id number] 100mg Take 1 capsule by mouth in the morning and 1 capsule in the evening. [facility] Compression Socks, Medium Misc 2022-0 11-01 00:00: 00 Yes [id number] Use as directed [facility] tacrolimus 0.1 % ointment 2022-0 11-01 00:00: 00 Yes [id number] Apply to area(s) 2 (two) times daily. Safe for the face. [facility] doxycycline monohydrate 100 mg capsule 2022-0 11-01 00:00: 00 Yes [id number] 100mg Take 1 capsule by mouth in the morning and 1 capsule in the evening. [facility] Compression Socks, Medium Misc 2022-0 11-01 00:00: 00 Yes [id number] Use as directed [facility] tacrolimus 0.1 % ointment 0 11-01 00:00: 00 Yes [id number] Apply to area(s) 2 (two) times daily. Safe for the face. [facility] doxycycline monohydrate 100 mg capsule 2022-0 11-01 00:00: 00 Yes [id number] 100mg Take 1 capsule by mouth in the morning and 1 capsule in the evening. [facility] Compression Socks, Medium Misc 2022-0 11-01 00:00: 00 Yes [id number] Use as directed [facility] tacrolimus 0.1 % ointment 0 11-01 00:00: 00 Yes [id number] Apply to area(s) 2 (two) times daily. Safe for the face. [facility] doxycycline monohydrate 100 mg capsule 2022-0 11-01 00:00: 00 Yes [id number] 100mg Take 1 capsule by mouth in the morning and 1 capsule in the evening. [facility] Compression Socks, Medium Misc 2022-0 25 00:00: 00 Yes [id number] Use as directed [facility] tacrolimus 0.1 % ointment 2022-0 11-01 00:00: 00 Yes [id number] Apply to area(s) 2 (two) times daily. Safe for the face. [facility] doxycycline monohydrate 100 mg capsule 2022-0 25 00:00: 00 Yes [id number] 100mg Take 1 capsule by mouth in the morning and 1 capsule in the evening. [facility] Compression Socks, Medium Misc 2022-0 11-01 00:00: 00 Yes [id number] Use as directed [facility] tacrolimus 0.1 % ointment 0 11-01 00:00: 00 Yes [id number] Apply to area(s) 2 (two) times daily. Safe for the face. [facility] doxycycline monohydrate 100 mg capsule 2022-0 11-01 00:00: 00 Yes [id number] 100mg Take 1 capsule by mouth in the morning and 1 capsule in the evening. [facility] Compression Socks, Medium Misc 2022-0 11-01 00:00: 00 Yes [id number] Use as directed [facility] tacrolimus 0.1 % ointment 0 11-01 00:00: 00 Yes [id number] Apply to area(s) 2 (two) times daily. Safe for the face. [facility] doxycycline monohydrate 100 mg capsule 0 11-01 00:00: 00 Yes [id number] 100mg Take 1 capsule by mouth in the morning and 1 capsule in the evening. [facility] Compression Socks, Medium Misc 0 11-01 00:00: 00 Yes [id number] Use as directed [facility] tacrolimus 0.1 % ointment 0 11-01 00:00: 00 Yes [id number] Apply to area(s) 2 (two) times daily. Safe for the face. [facility] doxycycline monohydrate 100 mg capsule 2022-0 11-01 00:00: 00 Yes [id number] 100mg Take 1 capsule by mouth in the morning and 1 capsule in the evening. [facility] Compression Socks, Medium Misc 2022-0 11-01 00:00: 00 Yes [id number] Use as directed [facility] tacrolimus 0.1 % ointment 0 11-01 00:00: 00 Yes [id number] Apply to area(s) 2 (two) times daily. Safe for the face. [facility] doxycycline monohydrate 100 mg capsule 2022-0 11-01 00:00: 00 Yes [id number] 100mg Take 1 capsule by mouth in the morning and 1 capsule in the evening. [facility] Compression Socks, Medium Misc 3-0 11-01 00:00: 00 Yes [id number] Use as directed [facility] tacrolimus 0.1 % ointment 2022-0 11-01 00:00: 00 Yes [id number] Apply to area(s) 2 (two) times daily. Safe for the face. [facility] doxycycline monohydrate 100 mg capsule 2022-0 11-01 00:00: 00 Yes [id number] 100mg Take 1 capsule by mouth in the morning and 1 capsule in the evening. [facility] Compression Socks, Medium Misc 2022-0 11-01 00:00: 00 Yes [id number] Use as directed [facility] tacrolimus 0.1 % ointment 0 11-01 00:00: 00 Yes [id number] Apply to area(s) 2 (two) times daily. Safe for the face. [facility] doxycycline monohydrate 100 mg capsule 2022-0 11-01 00:00: 00 Yes [id number] 100mg Take 1 capsule by mouth in the morning and 1 capsule in the evening. [facility] Compression Socks, Medium Misc 2022-0 11-01 00:00: 00 Yes [id number] Use as directed [facility] tacrolimus 0.1 % ointment 0 11-01 00:00: 00 Yes [id number] Apply to area(s) 2 (two) times daily. Safe for the face. [facility] doxycycline monohydrate 100 mg capsule 2022-0 11-01 00:00: 00 Yes [id number] 100mg Take 1 capsule by mouth in the morning and 1 capsule in the evening. [facility] Compression Socks, Medium Misc 2022-0 11-01 00:00: 00 Yes [id number] Use as directed [facility] tacrolimus 0.1 % ointment 2022-0 11-01 00:00: 00 Yes [id number] Apply to area(s) 2 (two) times daily. Safe for the face. [facility] doxycycline monohydrate 100 mg capsule 2022-0 25 00:00: 00 Yes [id number] 100mg Take 1 capsule by mouth in the morning and 1 capsule in the evening. [facility] Compression Socks, Medium Misc 3-0 11-01 00:00: 00 Yes [id number] Use as directed [facility] tacrolimus 0.1 % ointment 2022-0 11-01 00:00: 00 Yes [id number] Apply to area(s) 2 (two) times daily. Safe for the face. [facility] doxycycline monohydrate 100 mg capsule 2022-0 11-01 00:00: 00 Yes [id number] 100mg Take 1 capsule by mouth in the morning and 1 capsule in the evening. [facility] Compression Socks, Medium Misc 2022-0 11-01 00:00: 00 Yes [id number] Use as directed [facility] tacrolimus 0.1 % ointment 2022-0 11-01 00:00: 00 Yes [id number] Apply to area(s) 2 (two) times daily. Safe for the face. [facility] doxycycline monohydrate 100 mg capsule 2022-0 11-01 00:00: 00 Yes [id number] 100mg Take 1 capsule by mouth in the morning and 1 capsule in the evening. [facility] Compression Socks, Medium Misc 2022-0 11-01 00:00: 00 Yes [id number] Use as directed [facility] tacrolimus 0.1 % ointment 2022-0 11-01 00:00: 00 Yes [id number] Apply to area(s) 2 (two) times daily. Safe for the face. [facility] doxycycline monohydrate 100 mg capsule 2022-0 11-01 00:00: 00 Yes [id number] 100mg Take 1 capsule by mouth in the morning and 1 capsule in the evening. [facility] Compression Socks, Medium Misc 3-0 25 00:00: 00 Yes [id number] Use as directed [facility] tacrolimus 0.1 % ointment 2022-0 11-01 00:00: 00 Yes [id number] Apply to area(s) 2 (two) times daily. Safe for the face. [facility] doxycycline monohydrate 100 mg capsule 0 11-01 00:00: 00 Yes [id number] 100mg Take 1 capsule by mouth in the morning and 1 capsule in the evening. [facility] Compression Socks, Medium Misc 2022-0 11-01 00:00: 00 Yes [id number] Use as directed [facility] tacrolimus 0.1 % ointment 0 11-01 00:00: 00 Yes [id number] Apply to area(s) 2 (two) times daily. Safe for the face. [facility] doxycycline monohydrate 100 mg capsule 0 11-01 00:00: 00 Yes [id number] 100mg Take 1 capsule by mouth in the morning and 1 capsule in the evening. [facility] Compression Socks, Medium Misc 2022-0 11-01 00:00: 00 Yes [id number] Use as directed [facility] tacrolimus 0.1 % ointment 0 11-01 00:00: 00 Yes [id number] Apply to area(s) 2 (two) times daily. Safe for the face. [facility] doxycycline monohydrate 100 mg capsule 0 11-01 00:00: 00 Yes [id number] 100mg Take 1 capsule by mouth in the morning and 1 capsule in the evening. [facility] Compression Socks, Medium Misc 2022-0 11-01 00:00: 00 Yes [id number] Use as directed [facility] tacrolimus 0.1 % ointment 0 11-01 00:00: 00 Yes [id number] Apply to area(s) 2 (two) times daily. Safe for the face. [facility] doxycycline monohydrate 100 mg capsule 2022-0 11-01 00:00: 00 Yes [id number] 100mg Take 1 capsule by mouth in the morning and 1 capsule in the evening. [facility] Compression Socks, Medium Misc 2022-0 25 00:00: 00 Yes [id number] Use as directed [facility] tacrolimus 0.1 % ointment 2022-0 11-01 00:00: 00 Yes [id number] Apply to area(s) 2 (two) times daily. Safe for the face. [facility] doxycycline monohydrate 100 mg capsule 2022-0 11-01 00:00: 00 Yes [id number] 100mg Take 1 capsule by mouth in the morning and 1 capsule in the evening. [facility] Compression Socks, Medium Misc 2022-0 11-01 00:00: 00 Yes [id number] Use as directed [facility] tacrolimus 0.1 % ointment 0 11-01 00:00: 00 Yes [id number] Apply to area(s) 2 (two) times daily. Safe for the face. [facility] doxycycline monohydrate 100 mg capsule 2022-0 25 00:00: 00 Yes [id number] 100mg Take 1 capsule by mouth in the morning and 1 capsule in the evening. [facility] Compression Socks, Medium Misc 2022-0 11-01 00:00: 00 Yes [id number] Use as directed [facility] tacrolimus 0.1 % ointment 0 11-01 00:00: 00 Yes [id number] Apply to area(s) 2 (two) times daily. Safe for the face. [facility] doxycycline monohydrate 100 mg capsule 2022-0 25 00:00: 00 Yes [id number] 100mg Take 1 capsule by mouth in the morning and 1 capsule in the evening. [facility] Compression Socks, Medium Misc 2022-0 -25 00:00: 00 Yes [id number] Use as directed [facility] tacrolimus 0.1 % ointment 2022-0 11-01 00:00: 00 Yes [id number] Apply to area(s) 2 (two) times daily. Safe for the face. [facility] doxycycline monohydrate 100 mg capsule 2022-0 -25 00:00: 00 Yes [id number] 100mg Take 1 capsule by mouth in the morning and 1 capsule in the evening. [facility] Compression Socks, Medium Misc 3-0 11-01 00:00: 00 Yes [id number] Use as directed [facility] tacrolimus 0.1 % ointment 0 11-01 00:00: 00 Yes [id number] Apply to area(s) 2 (two) times daily. Safe for the face. [facility] doxycycline monohydrate 100 mg capsule 2022-0 11-01 00:00: 00 Yes [id number] 100mg Take 1 capsule by mouth in the morning and 1 capsule in the evening. [facility] Compression Socks, Medium Misc 2022-0 11-01 00:00: 00 Yes [id number] Use as directed [facility] tacrolimus 0.1 % ointment 0 11-01 00:00: 00 Yes [id number] Apply to area(s) 2 (two) times daily. Safe for the face. [facility] doxycycline monohydrate 100 mg capsule 2022-0 11-01 00:00: 00 Yes [id number] 100mg Take 1 capsule by mouth in the morning and 1 capsule in the evening. [facility] Compression Socks, Medium Misc 2022-0 11-01 00:00: 00 Yes [id number] Use as directed [facility] tacrolimus 0.1 % ointment 0 11-01 00:00: 00 Yes [id number] Apply to area(s) 2 (two) times daily. Safe for the face. [facility] doxycycline monohydrate 100 mg capsule 2022-0 11-01 00:00: 00 Yes [id number] 100mg Take 1 capsule by mouth in the morning and 1 capsule in the evening. [facility] Compression Socks, Medium Misc 2022-0 11-01 00:00: 00 Yes [id number] Use as directed [facility] tacrolimus 0.1 % ointment 0 11-01 00:00: 00 Yes [id number] Apply to area(s) 2 (two) times daily. Safe for the face. [facility] doxycycline monohydrate 100 mg capsule 2022-0 11-01 00:00: 00 Yes [id number] 100mg Take 1 capsule by mouth in the morning and 1 capsule in the evening. [facility] Compression Socks, Medium Misc 2022-0 11-01 00:00: 00 Yes [id number] Use as directed [facility] tacrolimus 0.1 % ointment 2022-0 11-01 00:00: 00 Yes [id number] Apply to area(s) 2 (two) times daily. Safe for the face. [facility] doxycycline monohydrate 100 mg capsule 2022-0 11-01 00:00: 00 Yes [id number] 100mg Take 1 capsule by mouth in the morning and 1 capsule in the evening. [facility] Compression Socks, Medium Misc 2022-0 11-01 00:00: 00 Yes [id number] Use as directed [facility] tacrolimus 0.1 % ointment 0 11-01 00:00: 00 Yes [id number] Apply to area(s) 2 (two) times daily. Safe for the face. [facility] doxycycline monohydrate 100 mg capsule 2022-0 11-01 00:00: 00 Yes [id number] 100mg Take 1 capsule by mouth in the morning and 1 capsule in the evening. [facility] Compression Socks, Medium Misc 2022-0 11-01 00:00: 00 Yes [id number] Use as directed [facility] tacrolimus 0.1 % ointment 2022-0 11-01 00:00: 00 Yes [id number] Apply to area(s) 2 (two) times daily. Safe for the face. [facility] doxycycline monohydrate 100 mg capsule 2022-0 11-01 00:00: 00 Yes [id number] 100mg Take 1 capsule by mouth in the morning and 1 capsule in the evening. [facility] Compression Socks, Medium Misc 2022-0 11-01 00:00: 00 Yes [id number] Use as directed [facility] tacrolimus 0.1 % ointment 2022-0 11-01 00:00: 00 Yes [id number] Apply to area(s) 2 (two) times daily. Safe for the face. [facility] doxycycline monohydrate 100 mg capsule 2022-0 25 00:00: 00 Yes [id number] 100mg Take 1 capsule by mouth in the morning and 1 capsule in the evening. [facility] Compression Socks, Medium Misc 3-0 25 00:00: 00 Yes [id number] Use as directed [facility] tacrolimus 0.1 % ointment 2022-0 11-01 00:00: 00 Yes [id number] Apply to area(s) 2 (two) times daily. Safe for the face. [facility] doxycycline monohydrate 100 mg capsule 2022-0 11-01 00:00: 00 Yes [id number] 100mg Take 1 capsule by mouth in the morning and 1 capsule in the evening. [facility] Compression Socks, Medium Misc 2022-0 11-01 00:00: 00 Yes [id number] Use as directed [facility] tacrolimus 0.1 % ointment 2022-0 11-01 00:00: 00 Yes [id number] Apply to area(s) 2 (two) times daily. Safe for the face. [facility] doxycycline monohydrate 100 mg capsule 2022-0 11-01 00:00: 00 Yes [id number] 100mg Take 1 capsule by mouth in the morning and 1 capsule in the evening. [facility] Compression Socks, Medium Misc 2022-0 25 00:00: 00 Yes [id number] Use as directed [facility] atorvastati n 10 mg tablet 3-0 24 00:00: 00 Yes [facility] meloxicam 15 mg tablet 3-0 -24 00:00: 00 Yes [facility] atorvastati n 10 mg tablet 3-0 -24 00:00: 00 Yes [facility] meloxicam 15 mg tablet 3-0 -24 00:00: 00 Yes [facility] atorvastati n 10 mg tablet 3-0 -24 00:00: 00 Yes [facility] meloxicam 15 mg tablet 3-0 10-31 00:00: 00 Yes [facility] atorvastati n 10 mg tablet 3-0 10-31 00:00: 00 Yes [facility] meloxicam 15 mg tablet 3-0 10-31 00:00: 00 Yes [facility] atorvastati n 10 mg tablet 2022-0 10-31 00:00: 00 Yes [facility] meloxicam 15 mg tablet 3-0 10-31 00:00: 00 Yes [facility] atorvastati n 10 mg tablet 2022-0 10-31 00:00: 00 Yes [facility] meloxicam 15 mg tablet 2022-0 10-31 00:00: 00 Yes [facility] atorvastati n 10 mg tablet 2022-0 10-31 00:00: 00 Yes [facility] meloxicam 15 mg tablet 3-0 10-31 00:00: 00 Yes [facility] atorvastati n 10 mg tablet 2022-0 10-31 00:00: 00 Yes [facility] meloxicam 15 mg tablet 3-0 10-31 00:00: 00 Yes [facility] atorvastati n 10 mg tablet 2022-0 10-31 00:00: 00 Yes [facility] meloxicam 15 mg tablet 2022-0 10-31 00:00: 00 Yes [facility] atorvastati n 10 mg tablet 2022-0 10-31 00:00: 00 Yes [facility] meloxicam 15 mg tablet 3-0 10-31 00:00: 00 Yes [facility] atorvastati n 10 mg tablet 3-0 10-31 00:00: 00 Yes [facility] meloxicam 15 mg tablet 3-0 10-31 00:00: 00 Yes [facility] atorvastati n 10 mg tablet 2022-0 10-31 00:00: 00 Yes [facility] meloxicam 15 mg tablet 3-0 10-31 00:00: 00 Yes [facility] atorvastati n 10 mg tablet 3-0 10-31 00:00: 00 Yes [facility] meloxicam 15 mg tablet 3-0 10-31 00:00: 00 Yes [facility] atorvastati n 10 mg tablet 3-0 10-31 00:00: 00 Yes [facility] meloxicam 15 mg tablet 3-0 10-31 00:00: 00 Yes [facility] atorvastati n 10 mg tablet 2022-0 10-31 00:00: 00 Yes [facility] meloxicam 15 mg tablet 3-0 10-31 00:00: 00 Yes [facility] atorvastati n 10 mg tablet 3-0 10-31 00:00: 00 Yes [facility] meloxicam 15 mg tablet 3-0 10-31 00:00: 00 Yes [facility] atorvastati n 10 mg tablet 2022-0 10-31 00:00: 00 Yes [facility] meloxicam 15 mg tablet 3-0 10-31 00:00: 00 Yes [facility] atorvastati n 10 mg tablet 2022-0 10-31 00:00: 00 Yes [facility] meloxicam 15 mg tablet 3-0 10-31 00:00: 00 Yes [facility] atorvastati n 10 mg tablet 3-0 10-31 00:00: 00 Yes [facility] meloxicam 15 mg tablet 3-0 10-31 00:00: 00 Yes [facility] atorvastati n 10 mg tablet 3-0 24 00:00: 00 Yes [facility] meloxicam 15 mg tablet 3-0 24 00:00: 00 Yes [facility] atorvastati n 10 mg tablet 3-0 10-31 00:00: 00 Yes [facility] meloxicam 15 mg tablet 3-0 24 00:00: 00 Yes [facility] atorvastati n 10 mg tablet 3-0 10-31 00:00: 00 Yes [facility] meloxicam 15 mg tablet 3-0 10-31 00:00: 00 Yes [facility] atorvastati n 10 mg tablet 2022-0 10-31 00:00: 00 Yes [facility] meloxicam 15 mg tablet 2022-0 10-31 00:00: 00 Yes [facility] atorvastati n 10 mg tablet 2022-0 10-31 00:00: 00 Yes [facility] meloxicam 15 mg tablet 2022-0 10-31 00:00: 00 Yes [facility] atorvastati n 10 mg tablet 2022-0 10-31 00:00: 00 Yes [facility] meloxicam 15 mg tablet 2022-0 10-31 00:00: 00 Yes [facility] atorvastati n 10 mg tablet 2022-0 10-31 00:00: 00 Yes [facility] meloxicam 15 mg tablet 2022-0 10-31 00:00: 00 Yes [facility] atorvastati n 10 mg tablet 2022-0 10-31 00:00: 00 Yes [facility] meloxicam 15 mg tablet 2022-0 10-31 00:00: 00 Yes [facility] atorvastati n 10 mg tablet 2022-0 10-31 00:00: 00 Yes [facility] meloxicam 15 mg tablet 3-0 10-31 00:00: 00 Yes [facility] atorvastati n 10 mg tablet 2022-0 10-31 00:00: 00 Yes [facility] meloxicam 15 mg tablet 3-0 10-31 00:00: 00 Yes [facility] atorvastati n 10 mg tablet 3-0 10-31 00:00: 00 Yes [facility] meloxicam 15 mg tablet 3-0 10-31 00:00: 00 Yes [facility] atorvastati n 10 mg tablet 2022-0 10-31 00:00: 00 Yes [facility] meloxicam 15 mg tablet 3-0 10-31 00:00: 00 Yes [facility] atorvastati n 10 mg tablet 2022-0 10-31 00:00: 00 Yes [facility] meloxicam 15 mg tablet 2022-0 10-31 00:00: 00 Yes [facility] propranoloL 20 mg tablet 3-0 10-29 00:00: 00 Yes [facility] propranoloL 20 mg tablet 3-0 10-29 00:00: 00 Yes [facility] propranoloL 20 mg tablet 3-0 10-29 00:00: 00 Yes [facility] propranoloL 20 mg tablet 3-0 10-29 00:00: 00 Yes [facility] propranoloL 20 mg tablet 3-0 10-29 00:00: 00 Yes [facility] propranoloL 20 mg tablet 3-0 10-29 00:00: 00 Yes [facility] propranoloL 20 mg tablet 3-0 10-29 00:00: 00 Yes [facility] propranoloL 20 mg tablet 3-0 10-29 00:00: 00 Yes [facility] propranoloL 20 mg tablet 3-0 10-29 00:00: 00 Yes [facility] propranoloL 20 mg tablet 3-0 10-29 00:00: 00 Yes [facility] propranoloL 20 mg tablet 3-0 10-29 00:00: 00 Yes [facility] propranoloL 20 mg tablet 3-0 10-29 00:00: 00 Yes [facility] propranoloL 20 mg tablet 3-0 10-29 00:00: 00 Yes [facility] propranoloL 20 mg tablet 3-0 10-29 00:00: 00 Yes [facility] propranoloL 20 mg tablet 3-0 10-29 00:00: 00 Yes [facility] propranoloL 20 mg tablet 3-0 10-29 00:00: 00 Yes [facility] propranoloL 20 mg tablet 3-0 10-29 00:00: 00 Yes [facility] propranoloL 20 mg tablet 2022-0 10-29 00:00: 00 Yes [facility] propranoloL 20 mg tablet 2022-0 10-29 00:00: 00 Yes [facility] propranoloL 20 mg tablet 2022-0 10-29 00:00: 00 Yes [facility] propranoloL 20 mg tablet 2022-0 10-29 00:00: 00 Yes [facility] propranoloL 20 mg tablet 2022-0 10-29 00:00: 00 Yes [facility] propranoloL 20 mg tablet 2022-0 10-29 00:00: 00 Yes [facility] propranoloL 20 mg tablet 2022-0 10-29 00:00: 00 Yes [facility] propranoloL 20 mg tablet 2022-0 10-29 00:00: 00 Yes [facility] propranoloL 20 mg tablet 2022-0 10-29 00:00: 00 Yes [facility] propranoloL 20 mg tablet 2022-0 10-29 00:00: 00 Yes [facility] propranoloL 20 mg tablet 2022-0 10-29 00:00: 00 Yes [facility] propranoloL 20 mg tablet 2022-0 10-29 00:00: 00 Yes [facility] propranoloL 20 mg tablet 2022-0 10-29 00:00: 00 Yes [facility] propranoloL 20 mg tablet 2022-0 10-29 00:00: 00 Yes [facility] propranoloL 20 mg tablet 2022-0 10-29 00:00: 00 Yes [facility] HYDROcodone -acetaminop hen 7.5-325 mg per tablet 2022-0 10-26 11:14: 44 Yes 1{tbl} Take 1 tablet by mouth every 6 (six) hours as needed. [facility] HYDROcodone -acetaminop hen 7.5-325 mg per tablet 2022-0 10-26 11:14: 44 Yes 1{tbl} Take 1 tablet by mouth every 6 (six) hours as needed. [facility] HYDROcodone -acetaminop hen 7.5-325 mg per tablet 2022-0 10-26 11:14: 44 Yes 1{tbl} Take 1 tablet by mouth every 6 (six) hours as needed. [facility] HYDROcodone -acetaminop hen 7.5-325 mg per tablet 10-26 11:14: 44 Yes 1{tbl} Take 1 tablet by mouth every 6 (six) hours as needed. [facility] HYDROcodone -acetaminop hen 7.5-325 mg per tablet 10-26 11:14: 44 Yes 1{tbl} Take 1 tablet by mouth every 6 (six) hours as needed. [facility] HYDROcodone -acetaminop hen 7.5-325 mg per tablet 10-26 11:14: 44 Yes 1{tbl} Take 1 tablet by mouth every 6 (six) hours as needed. [facility] HYDROcodone -acetaminop hen 7.5-325 mg per tablet 10-26 11:14: 44 Yes 1{tbl} Take 1 tablet by mouth every 6 (six) hours as needed. [facility] HYDROcodone -acetaminop hen 7.5-325 mg per tablet 10-26 11:14: 44 Yes 1{tbl} Take 1 tablet by mouth every 6 (six) hours as needed. [facility] HYDROcodone -acetaminop hen 7.5-325 mg per tablet 10-26 11:14: 44 Yes 1{tbl} Take 1 tablet by mouth every 6 (six) hours as needed. [facility] HYDROcodone -acetaminop hen 7.5-325 mg per tablet 10-26 11:14: 44 Yes 1{tbl} Take 1 tablet by mouth every 6 (six) hours as needed. [facility] HYDROcodone -acetaminop hen 7.5-325 mg per tablet 10-26 11:14: 44 Yes 1{tbl} Take 1 tablet by mouth every 6 (six) hours as needed. [facility] HYDROcodone -acetaminop hen 7.5-325 mg per tablet 10-26 11:14: 44 Yes 1{tbl} Take 1 tablet by mouth every 6 (six) hours as needed. [facility] HYDROcodone -acetaminop hen 7.5-325 mg per tablet 10-26 11:14: 44 Yes 1{tbl} Take 1 tablet by mouth every 6 (six) hours as needed. [facility] HYDROcodone -acetaminop hen 7.5-325 mg per tablet 10-26 11:14: 44 Yes 1{tbl} Take 1 tablet by mouth every 6 (six) hours as needed. [facility] HYDROcodone -acetaminop hen 7.5-325 mg per tablet 10-26 11:14: 44 Yes 1{tbl} Take 1 tablet by mouth every 6 (six) hours as needed. [facility] HYDROcodone -acetaminop hen 7.5-325 mg per tablet 10-26 11:14: 44 Yes 1{tbl} Take 1 tablet by mouth every 6 (six) hours as needed. [facility] HYDROcodone -acetaminop hen 7.5-325 mg per tablet 10-26 11:14: 44 Yes 1{tbl} Take 1 tablet by mouth every 6 (six) hours as needed. [facility] HYDROcodone -acetaminop hen 7.5-325 mg per tablet 10-26 11:14: 44 Yes 1{tbl} Take 1 tablet by mouth every 6 (six) hours as needed. [facility] HYDROcodone -acetaminop hen 7.5-325 mg per tablet 10-26 11:14: 44 Yes 1{tbl} Take 1 tablet by mouth every 6 (six) hours as needed. [facility] HYDROcodone -acetaminop hen 7.5-325 mg per tablet 10-26 11:14: 44 Yes 1{tbl} Take 1 tablet by mouth every 6 (six) hours as needed. [facility] HYDROcodone -acetaminop hen 7.5-325 mg per tablet 10-26 11:14: 44 Yes 1{tbl} Take 1 tablet by mouth every 6 (six) hours as needed. [facility] HYDROcodone -acetaminop hen 7.5-325 mg per tablet 10-26 11:14: 44 Yes 1{tbl} Take 1 tablet by mouth every 6 (six) hours as needed. [facility] HYDROcodone -acetaminop hen 7.5-325 mg per tablet 10-26 11:14: 44 Yes 1{tbl} Take 1 tablet by mouth every 6 (six) hours as needed. [facility] HYDROcodone -acetaminop hen 7.5-325 mg per tablet 10-26 11:14: 44 Yes 1{tbl} Take 1 tablet by mouth every 6 (six) hours as needed. [facility] HYDROcodone -acetaminop hen 7.5-325 mg per tablet 10-26 11:14: 44 Yes 1{tbl} Take 1 tablet by mouth every 6 (six) hours as needed. [facility] HYDROcodone -acetaminop hen 7.5-325 mg per tablet 10-26 11:14: 44 Yes 1{tbl} Take 1 tablet by mouth every 6 (six) hours as needed. [facility] HYDROcodone -acetaminop hen 7.5-325 mg per tablet 10-26 11:14: 44 Yes 1{tbl} Take 1 tablet by mouth every 6 (six) hours as needed. [facility] HYDROcodone -acetaminop hen 7.5-325 mg per tablet 10-26 11:14: 44 Yes 1{tbl} Take 1 tablet by mouth every 6 (six) hours as needed. [facility] HYDROcodone -acetaminop hen 7.5-325 mg per tablet 10-26 11:14: 44 Yes 1{tbl} Take 1 tablet by mouth every 6 (six) hours as needed. [facility] HYDROcodone -acetaminop hen 7.5-325 mg per tablet 10-26 11:14: 44 Yes 1{tbl} Take 1 tablet by mouth every 6 (six) hours as needed. [facility] HYDROcodone -acetaminop hen 7.5-325 mg per tablet 10-26 11:14: 44 Yes 1{tbl} Take 1 tablet by mouth every 6 (six) hours as needed. [facility] HYDROcodone -acetaminop hen 7.5-325 mg per tablet 10-26 11:14: 44 Yes 1{tbl} Take 1 tablet by mouth every 6 (six) hours as needed. [facility] HYDROcodone -acetaminop hen 7.5-325 mg per tablet 10-26 11:14: 44 Yes 1{tbl} Take 1 tablet by mouth every 6 (six) hours as needed. [facility] HYDROcodone -acetaminop hen 7.5-325 mg per tablet 10-26 11:14: 44 Yes 1{tbl} Take 1 tablet by mouth every 6 (six) hours as needed. [facility] HYDROcodone -acetaminop hen 7.5-325 mg per tablet 10-26 11:14: 44 Yes 1{tbl} Take 1 tablet by mouth every 6 (six) hours as needed. [facility] HYDROcodone -acetaminop hen 7.5-325 mg per tablet 10-26 11:14: 44 Yes 1{tbl} Take 1 tablet by mouth every 6 (six) hours as needed. [facility] HYDROcodone -acetaminop hen 7.5-325 mg per tablet 10-26 11:14: 44 Yes 1{tbl} Take 1 tablet by mouth every 6 (six) hours as needed. [facility] HYDROcodone -acetaminop hen 7.5-325 mg per tablet 10-26 11:14: 44 Yes 1{tbl} Take 1 tablet by mouth every 6 (six) hours as needed. [facility] HYDROcodone -acetaminop hen 7.5-325 mg per tablet 10-26 11:14: 44 Yes 1{tbl} Take 1 tablet by mouth every 6 (six) hours as needed. [facility] HYDROcodone -acetaminop hen 7.5-325 mg per tablet 10-26 11:14: 44 Yes 1{tbl} Take 1 tablet by mouth every 6 (six) hours as needed. [facility] HYDROcodone -acetaminop hen 7.5-325 mg per tablet 0 10-26 11:14: 44 Yes 1{tbl} Take 1 tablet by mouth every 6 (six) hours as needed. [facility] HYDROcodone -acetaminop hen 7.5-325 mg per tablet 0 10-26 11:14: 44 Yes 1{tbl} Take 1 tablet by mouth every 6 (six) hours as needed. [facility] HYDROcodone -acetaminop hen 7.5-325 mg per tablet 10-26 11:14: 44 Yes 1{tbl} Take 1 tablet by mouth every 6 (six) hours as needed. [facility] oxyCODONE-a cetaminophe n 7.5-325 mg per tablet 0 10-25 00:00: 00 Yes [facility] oxyCODONE-a cetaminophe n 7.5-325 mg per tablet 0 10-25 00:00: 00 Yes [facility] oxyCODONE-a cetaminophe n 7.5-325 mg per tablet 0 10-25 00:00: 00 Yes [facility] oxyCODONE-a cetaminophe n 7.5-325 mg per tablet 0 10-25 00:00: 00 Yes [facility] oxyCODONE-a cetaminophe n 7.5-325 mg per tablet 0 10-25 00:00: 00 Yes [facility] oxyCODONE-a cetaminophe n 7.5-325 mg per tablet 0 10-25 00:00: 00 Yes [facility] oxyCODONE-a cetaminophe n 7.5-325 mg per tablet 0 10-25 00:00: 00 Yes [facility] oxyCODONE-a cetaminophe n 7.5-325 mg per tablet 0 18 00:00: 00 Yes [facility] oxyCODONE-a cetaminophe n 7.5-325 mg per tablet 0 18 00:00: 00 Yes [facility] oxyCODONE-a cetaminophe n 7.5-325 mg per tablet 0 18 00:00: 00 Yes [facility] oxyCODONE-a cetaminophe n 7.5-325 mg per tablet 0 18 00:00: 00 Yes [facility] oxyCODONE-a cetaminophe n 7.5-325 mg per tablet 0 18 00:00: 00 Yes [facility] oxyCODONE-a cetaminophe n 7.5-325 mg per tablet 0 18 00:00: 00 Yes [facility] oxyCODONE-a cetaminophe n 7.5-325 mg per tablet 0 10-25 00:00: 00 Yes [facility] oxyCODONE-a cetaminophe n 7.5-325 mg per tablet 0 18 00:00: 00 Yes [facility] oxyCODONE-a cetaminophe n 7.5-325 mg per tablet 0 18 00:00: 00 Yes [facility] oxyCODONE-a cetaminophe n 7.5-325 mg per tablet 0 18 00:00: 00 Yes [facility] oxyCODONE-a cetaminophe n 7.5-325 mg per tablet 0 18 00:00: 00 Yes [facility] oxyCODONE-a cetaminophe n 7.5-325 mg per tablet 0 18 00:00: 00 Yes [facility] oxyCODONE-a cetaminophe n 7.5-325 mg per tablet 0 18 00:00: 00 Yes [facility] oxyCODONE-a cetaminophe n 7.5-325 mg per tablet 0 18 00:00: 00 Yes [facility] oxyCODONE-a cetaminophe n 7.5-325 mg per tablet 0 18 00:00: 00 Yes [facility] oxyCODONE-a cetaminophe n 7.5-325 mg per tablet 0 18 00:00: 00 Yes [facility] oxyCODONE-a cetaminophe n 7.5-325 mg per tablet 0 18 00:00: 00 Yes [facility] oxyCODONE-a cetaminophe n 7.5-325 mg per tablet 0 18 00:00: 00 Yes [facility] oxyCODONE-a cetaminophe n 7.5-325 mg per tablet 0 10-25 00:00: 00 Yes [facility] oxyCODONE-a cetaminophe n 7.5-325 mg per tablet 0 10-25 00:00: 00 Yes [facility] oxyCODONE-a cetaminophe n 7.5-325 mg per tablet 0 18 00:00: 00 Yes [facility] oxyCODONE-a cetaminophe n 7.5-325 mg per tablet 0 18 00:00: 00 Yes [facility] oxyCODONE-a cetaminophe n 7.5-325 mg per tablet 0 18 00:00: 00 Yes [facility] oxyCODONE-a cetaminophe n 7.5-325 mg per tablet 0 18 00:00: 00 Yes [facility] oxyCODONE-a cetaminophe n 7.5-325 mg per tablet 0 18 00:00: 00 Yes [facility] oxyCODONE-a cetaminophe n 7.5-325 mg per tablet 0 18 00:00: 00 Yes [facility] oxyCODONE-a cetaminophe n 7.5-325 mg per tablet 0 18 00:00: 00 Yes [facility] oxyCODONE-a cetaminophe n 7.5-325 mg per tablet 2022-0 10-25 00:00: 00 Yes [facility] oxyCODONE-a cetaminophe n 7.5-325 mg per tablet 2022-0 10-25 00:00: 00 Yes [facility] oxyCODONE-a cetaminophe n 7.5-325 mg per tablet 2022-0 10-25 00:00: 00 Yes [facility] hydrALAZINE 25 mg tablet 2022-0 10-16 00:00: 00 Yes [facility] hydrALAZINE 25 mg tablet 2022-0 10-16 00:00: 00 Yes [facility] hydrALAZINE 25 mg tablet 2022-0 10-16 00:00: 00 Yes [facility] hydrALAZINE 25 mg tablet 2022-0 10-16 00:00: 00 Yes [facility] hydrALAZINE 25 mg tablet 2022-0 10-16 00:00: 00 Yes [facility] hydrALAZINE 25 mg tablet 2022-0 10-16 00:00: 00 Yes [facility] hydrALAZINE 25 mg tablet 2022-0 10-16 00:00: 00 Yes [facility] hydrALAZINE 25 mg tablet 2022-0 10-16 00:00: 00 Yes [facility] hydrALAZINE 25 mg tablet 2022-0 10-16 00:00: 00 Yes [facility] hydrALAZINE 25 mg tablet 2022-0 10-16 00:00: 00 Yes [facility] hydrALAZINE 25 mg tablet 2022-0 10-16 00:00: 00 Yes [facility] hydrALAZINE 25 mg tablet 2022-0 10-16 00:00: 00 Yes [facility] hydrALAZINE 25 mg tablet 3-0 10-16 00:00: 00 Yes [facility] hydrALAZINE 25 mg tablet 2022-0 10-16 00:00: 00 Yes [facility] hydrALAZINE 25 mg tablet 2022-0 10-16 00:00: 00 Yes [facility] hydrALAZINE 25 mg tablet 3-0 10-16 00:00: 00 Yes [facility] hydrALAZINE 25 mg tablet 2022-0 10-16 00:00: 00 Yes [facility] hydrALAZINE 25 mg tablet 3-0 10-16 00:00: 00 Yes [facility] hydrALAZINE 25 mg tablet 3-0 10-16 00:00: 00 Yes [facility] hydrALAZINE 25 mg tablet 3-0 10-16 00:00: 00 Yes [facility] hydrALAZINE 25 mg tablet 3-0 10-16 00:00: 00 Yes [facility] hydrALAZINE 25 mg tablet 3-0 10-16 00:00: 00 Yes [facility] hydrALAZINE 25 mg tablet 3-0 10-16 00:00: 00 Yes [facility] hydrALAZINE 25 mg tablet 3-0 10-16 00:00: 00 Yes [facility] hydrALAZINE 25 mg tablet 3-0 10-16 00:00: 00 Yes [facility] hydrALAZINE 25 mg tablet 3-0 10-16 00:00: 00 Yes [facility] hydrALAZINE 25 mg tablet 3-0 10-16 00:00: 00 Yes [facility] hydrALAZINE 25 mg tablet 3-0 10-16 00:00: 00 Yes [facility] hydrALAZINE 25 mg tablet 3-0 10-16 00:00: 00 Yes [facility] hydrALAZINE 25 mg tablet 3-0 10-16 00:00: 00 Yes [facility] hydrALAZINE 25 mg tablet 3-0 10-16 00:00: 00 Yes [facility] hydrALAZINE 25 mg tablet 3-0 10-16 00:00: 00 Yes [facility] hydrALAZINE 25 mg tablet 3-0 10-16 00:00: 00 Yes [facility] hydrALAZINE 25 mg tablet 2022-0 - 00:00: 00 Yes [facility] hydrALAZINE 25 mg tablet 2022-0 10-16 00:00: 00 Yes [facility] hydrALAZINE 25 mg tablet 3-0 10-16 00:00: 00 Yes [facility] hydrALAZINE 25 mg tablet 2022-0 10-16 00:00: 00 Yes [facility] clobetasoL 0.05 % cream 3-0 8-10 00:00: 00 Yes [id number] Apply twice daily to feet where the redness. [facility] clobetasoL 0.05 % cream 3-0 8-10 00:00: 00 Yes [id number] Apply twice daily to feet where the redness. [facility] clobetasoL 0.05 % cream 3-0 8-10 00:00: 00 Yes [id number] Apply twice daily to feet where the redness. [facility] clobetasoL 0.05 % cream 3-0 8-10 00:00: 00 Yes [id number] Apply twice daily to feet where the redness. [facility] clobetasoL 0.05 % cream 3-0 8-10 00:00: 00 Yes [id number] Apply twice daily to feet where the redness. [facility] clobetasoL 0.05 % cream 3-0 8-10 00:00: 00 Yes [id number] Apply twice daily to feet where the redness. [facility] clobetasoL 0.05 % cream 3-0 8-10 00:00: 00 Yes [id number] Apply twice daily to feet where the redness. [facility] clobetasoL 0.05 % cream 2023-0 8-10 00:00: 00 Yes [id number] Apply twice daily to feet where the redness. [facility] clobetasoL 0.05 % cream 2023-0 8-10 00:00: 00 Yes [id number] Apply twice daily to feet where the redness. [facility] clobetasoL 0.05 % cream 3-0 8-10 00:00: 00 Yes [id number] Apply twice daily to feet where the redness. [facility] clobetasoL 0.05 % cream 3-0 8-10 00:00: 00 Yes [id number] Apply twice daily to feet where the redness. [facility] clobetasoL 0.05 % cream 3-0 8-10 00:00: 00 Yes [id number] Apply twice daily to feet where the redness. [facility] clobetasoL 0.05 % cream 3-0 8-10 00:00: 00 Yes [id number] Apply twice daily to feet where the redness. [facility] clobetasoL 0.05 % cream 3-0 8-10 00:00: 00 Yes [id number] Apply twice daily to feet where the redness. [facility] clobetasoL 0.05 % cream 3-0 8-10 00:00: 00 Yes [id number] Apply twice daily to feet where the redness. [facility] clobetasoL 0.05 % cream 3-0 8-10 00:00: 00 Yes [id number] Apply twice daily to feet where the redness. [facility] clobetasoL 0.05 % cream 2023-0 8-10 00:00: 00 Yes [id number] Apply twice daily to feet where the redness. [facility] clobetasoL 0.05 % cream 3-0 8-10 00:00: 00 Yes [id number] Apply twice daily to feet where the redness. [facility] clobetasoL 0.05 % cream 2023-0 8-10 00:00: 00 Yes [id number] Apply twice daily to feet where the redness. [facility] clobetasoL 0.05 % cream 2023-0 8-10 00:00: 00 Yes [id number] Apply twice daily to feet where the redness. [facility] clobetasoL 0.05 % cream 2023-0 8-10 00:00: 00 Yes [id number] Apply twice daily to feet where the redness. [facility] clobetasoL 0.05 % cream 3-0 8-10 00:00: 00 Yes [id number] Apply twice daily to feet where the redness. [facility] clobetasoL 0.05 % cream 3-0 8-10 00:00: 00 Yes [id number] Apply twice daily to feet where the redness. [facility] clobetasoL 0.05 % cream 3-0 8-10 00:00: 00 Yes [id number] Apply twice daily to feet where the redness. [facility] clobetasoL 0.05 % cream 3-0 8-10 00:00: 00 Yes [id number] Apply twice daily to feet where the redness. [facility] clobetasoL 0.05 % cream 3-0 8-10 00:00: 00 Yes [id number] Apply twice daily to feet where the redness. [facility] clobetasoL 0.05 % cream 3-0 8-10 00:00: 00 Yes [id number] Apply twice daily to feet where the redness. [facility] clobetasoL 0.05 % cream 2022-0 8-10 00:00: 00 Yes [id number] Apply twice daily to feet where the redness. [facility] clobetasoL 0.05 % cream 3-0 8-10 00:00: 00 Yes [id number] Apply twice daily to feet where the redness. [facility] clobetasoL 0.05 % cream 3-0 8-10 00:00: 00 30 00:00 :00 No [id number] Apply twice daily to feet where the redness. [facility] clobetasoL 0.05 % cream 3-0 8-10 00:00: 00 12-06 00:00 :00 No [id number] Apply twice daily to feet where the redness. [facility] clobetasoL 0.05 % cream 3-0 8-10 00:00: 00 12-06 00:00 :00 No [id number] Apply twice daily to feet where the redness. [facility] pyridoxine, VITAMIN B-6, 25 mg tablet 3-0 7-18 11:58: 31 Yes 25mg Take 1 tablet by mouth in the morning. [facility] cephALEXin 500 mg capsule 2023-0 7-18 11:58: 31 Yes 500mg Take 1 capsule by mouth 4 (four) times daily. [facility] pyridoxine, VITAMIN B-6, 25 mg tablet 2023-0 7-18 11:58: 31 Yes 25mg Take 1 tablet by mouth in the morning. [facility] cephALEXin 500 mg capsule 3-0 7-18 11:58: 31 Yes 500mg Take 1 capsule by mouth 4 (four) times daily. [facility] pyridoxine, VITAMIN B-6, 25 mg tablet 2023-0 7-18 11:58: 31 Yes 25mg Take 1 tablet by mouth in the morning. [facility] cephALEXin 500 mg capsule 3-0 7-18 11:58: 31 Yes 500mg Take 1 capsule by mouth 4 (four) times daily. [facility] pyridoxine, VITAMIN B-6, 25 mg tablet 3-0 7-18 11:58: 31 Yes 25mg Take 1 tablet by mouth in the morning. [facility] cephALEXin 500 mg capsule 2023-0 7-18 11:58: 31 Yes 500mg Take 1 capsule by mouth 4 (four) times daily. [facility] pyridoxine, VITAMIN B-6, 25 mg tablet 2023-0 7-18 11:58: 31 Yes 25mg Take 1 tablet by mouth in the morning. [facility] cephALEXin 500 mg capsule 2023-0 7-18 11:58: 31 Yes 500mg Take 1 capsule by mouth 4 (four) times daily. [facility] pyridoxine, VITAMIN B-6, 25 mg tablet 2023-0 7-18 11:58: 31 Yes 25mg Take 1 tablet by mouth in the morning. [facility] cephALEXin 500 mg capsule 2023-0 7-18 11:58: 31 Yes 500mg Take 1 capsule by mouth 4 (four) times daily. [facility] pyridoxine, VITAMIN B-6, 25 mg tablet 2023-0 7-18 11:58: 31 Yes 25mg Take 1 tablet by mouth in the morning. [facility] cephALEXin 500 mg capsule 2023-0 7-18 11:58: 31 Yes 500mg Take 1 capsule by mouth 4 (four) times daily. [facility] pyridoxine, VITAMIN B-6, 25 mg tablet 2023-0 7-18 11:58: 31 Yes 25mg Take 1 tablet by mouth in the morning. [facility] cephALEXin 500 mg capsule 2023-0 7-18 11:58: 31 Yes 500mg Take 1 capsule by mouth 4 (four) times daily. [facility] pyridoxine, VITAMIN B-6, 25 mg tablet 2023-0 7-18 11:58: 31 Yes 25mg Take 1 tablet by mouth in the morning. [facility] cephALEXin 500 mg capsule 2023-0 7-18 11:58: 31 Yes 500mg Take 1 capsule by mouth 4 (four) times daily. [facility] pyridoxine, VITAMIN B-6, 25 mg tablet 2023-0 7-18 11:58: 31 Yes 25mg Take 1 tablet by mouth in the morning. [facility] cephALEXin 500 mg capsule 2023-0 7-18 11:58: 31 Yes 500mg Take 1 capsule by mouth 4 (four) times daily. [facility] pyridoxine, VITAMIN B-6, 25 mg tablet 2023-0 7-18 11:58: 31 Yes 25mg Take 1 tablet by mouth in the morning. [facility] cephALEXin 500 mg capsule 2023-0 7-18 11:58: 31 Yes 500mg Take 1 capsule by mouth 4 (four) times daily. [facility] pyridoxine, VITAMIN B-6, 25 mg tablet 2023-0 7-18 11:58: 31 Yes 25mg Take 1 tablet by mouth in the morning. [facility] cephALEXin 500 mg capsule 2023-0 7-18 11:58: 31 Yes 500mg Take 1 capsule by mouth 4 (four) times daily. [facility] pyridoxine, VITAMIN B-6, 25 mg tablet 2023-0 7-18 11:58: 31 Yes 25mg Take 1 tablet by mouth in the morning. [facility] cephALEXin 500 mg capsule 2023-0 7-18 11:58: 31 Yes 500mg Take 1 capsule by mouth 4 (four) times daily. [facility] pyridoxine, VITAMIN B-6, 25 mg tablet 2023-0 7-18 11:58: 31 Yes 25mg Take 1 tablet by mouth in the morning. [facility] cephALEXin 500 mg capsule 2023-0 7-18 11:58: 31 Yes 500mg Take 1 capsule by mouth 4 (four) times daily. [facility] pyridoxine, VITAMIN B-6, 25 mg tablet 2023-0 7-18 11:58: 31 Yes 25mg Take 1 tablet by mouth in the morning. [facility] cephALEXin 500 mg capsule 3-0 7-18 11:58: 31 Yes 500mg Take 1 capsule by mouth 4 (four) times daily. [facility] pyridoxine, VITAMIN B-6, 25 mg tablet 2023-0 7-18 11:58: 31 Yes 25mg Take 1 tablet by mouth in the morning. [facility] cephALEXin 500 mg capsule 3-0 7-18 11:58: 31 Yes 500mg Take 1 capsule by mouth 4 (four) times daily. [facility] pyridoxine, VITAMIN B-6, 25 mg tablet 2023-0 7-18 11:58: 31 Yes 25mg Take 1 tablet by mouth in the morning. [facility] cephALEXin 500 mg capsule 2023-0 7-18 11:58: 31 Yes 500mg Take 1 capsule by mouth 4 (four) times daily. [facility] pyridoxine, VITAMIN B-6, 25 mg tablet 2023-0 7-18 11:58: 31 Yes 25mg Take 1 tablet by mouth in the morning. [facility] cephALEXin 500 mg capsule 2023-0 7-18 11:58: 31 Yes 500mg Take 1 capsule by mouth 4 (four) times daily. [facility] pyridoxine, VITAMIN B-6, 25 mg tablet 3-0 7-18 11:58: 31 Yes 25mg Take 1 tablet by mouth in the morning. [facility] cephALEXin 500 mg capsule 3-0 7-18 11:58: 31 Yes 500mg Take 1 capsule by mouth 4 (four) times daily. [facility] pyridoxine, VITAMIN B-6, 25 mg tablet 3-0 7-18 11:58: 31 Yes 25mg Take 1 tablet by mouth in the morning. [facility] cephALEXin 500 mg capsule 3-0 7-18 11:58: 31 Yes 500mg Take 1 capsule by mouth 4 (four) times daily. [facility] pyridoxine, VITAMIN B-6, 25 mg tablet 3-0 7-18 11:58: 31 Yes 25mg Take 1 tablet by mouth in the morning. [facility] cephALEXin 500 mg capsule 3-0 7-18 11:58: 31 Yes 500mg Take 1 capsule by mouth 4 (four) times daily. [facility] pyridoxine, VITAMIN B-6, 25 mg tablet 3-0 7-18 11:58: 31 Yes 25mg Take 1 tablet by mouth in the morning. [facility] cephALEXin 500 mg capsule 3-0 7-18 11:58: 31 Yes 500mg Take 1 capsule by mouth 4 (four) times daily. [facility] pyridoxine, VITAMIN B-6, 25 mg tablet 3-0 7-18 11:58: 31 Yes 25mg Take 1 tablet by mouth in the morning. [facility] cephALEXin 500 mg capsule 3-0 7-18 11:58: 31 Yes 500mg Take 1 capsule by mouth 4 (four) times daily. [facility] pyridoxine, VITAMIN B-6, 25 mg tablet 3-0 7-18 11:58: 31 Yes 25mg Take 1 tablet by mouth in the morning. [facility] cephALEXin 500 mg capsule 3-0 7-18 11:58: 31 Yes 500mg Take 1 capsule by mouth 4 (four) times daily. [facility] pyridoxine, VITAMIN B-6, 25 mg tablet 2023-0 7-18 11:58: 31 Yes 25mg Take 1 tablet by mouth in the morning. [facility] cephALEXin 500 mg capsule 3-0 7-18 11:58: 31 Yes 500mg Take 1 capsule by mouth 4 (four) times daily. [facility] pyridoxine, VITAMIN B-6, 25 mg tablet 2023-0 7-18 11:58: 31 Yes 25mg Take 1 tablet by mouth in the morning. [facility] cephALEXin 500 mg capsule 3-0 7-18 11:58: 31 Yes 500mg Take 1 capsule by mouth 4 (four) times daily. [facility] pyridoxine, VITAMIN B-6, 25 mg tablet 3-0 7-18 11:58: 31 Yes 25mg Take 1 tablet by mouth in the morning. [facility] cephALEXin 500 mg capsule 3-0 7-18 11:58: 31 Yes 500mg Take 1 capsule by mouth 4 (four) times daily. [facility] pyridoxine, VITAMIN B-6, 25 mg tablet 3-0 7-18 11:58: 31 Yes 25mg Take 1 tablet by mouth in the morning. [facility] cephALEXin 500 mg capsule 3-0 7-18 11:58: 31 Yes 500mg Take 1 capsule by mouth 4 (four) times daily. [facility] pyridoxine, VITAMIN B-6, 25 mg tablet 3-0 7-18 11:58: 31 Yes 25mg Take 1 tablet by mouth in the morning. [facility] cephALEXin 500 mg capsule 3-0 7-18 11:58: 31 Yes 500mg Take 1 capsule by mouth 4 (four) times daily. [facility] pyridoxine, VITAMIN B-6, 25 mg tablet 3-0 7-18 11:58: 31 Yes 25mg Take 1 tablet by mouth in the morning. [facility] pyridoxine, VITAMIN B-6, 25 mg tablet 2023-0 7-18 11:58: 31 Yes 25mg Take 1 tablet by mouth in the morning. [facility] pyridoxine, VITAMIN B-6, 25 mg tablet 2023-0 7-18 11:58: 31 Yes 25mg Take 1 tablet by mouth in the morning. [facility] pyridoxine, VITAMIN B-6, 25 mg tablet 3-0 7-18 11:58: 31 Yes 25mg Take 1 tablet by mouth in the morning. [facility] pyridoxine, VITAMIN B-6, 25 mg tablet 2023-0 7-18 11:58: 31 Yes 25mg Take 1 tablet by mouth in the morning. [facility] pyridoxine, VITAMIN B-6, 25 mg tablet 3-0 7-18 11:58: 31 Yes 25mg Take 1 tablet by mouth in the morning. [facility] pyridoxine, VITAMIN B-6, 25 mg tablet 3-0 718 11:58: 31 Yes 25mg Take 1 tablet by mouth in the morning. [facility] pyridoxine, VITAMIN B-6, 25 mg tablet 2022-0 718 11:58: 31 Yes 25mg Take 1 tablet by mouth in the morning. [facility] pyridoxine, VITAMIN B-6, 25 mg tablet 3-0 718 11:58: 31 Yes 25mg Take 1 tablet by mouth in the morning. [facility] pyridoxine, VITAMIN B-6, 25 mg tablet 2022-0 718 11:58: 31 Yes 25mg Take 1 tablet by mouth in the morning. [facility] pyridoxine, VITAMIN B-6, 25 mg tablet 3-0 718 11:58: 31 Yes 25mg Take 1 tablet by mouth in the morning. [facility] pyridoxine, VITAMIN B-6, 25 mg tablet 3-0 718 11:58: 31 Yes 25mg Take 1 tablet by mouth in the morning. [facility] pyridoxine, VITAMIN B-6, 25 mg tablet 3-0 718 11:58: 31 Yes 25mg Take 1 tablet by mouth in the morning. [facility] pyridoxine, VITAMIN B-6, 25 mg tablet 2023-0 7-18 11:58: 31 Yes 25mg Take 1 tablet by mouth in the morning. [facility] pyridoxine, VITAMIN B-6, 25 mg tablet 2023-0 7-18 11:58: 31 Yes 25mg Take 1 tablet by mouth in the morning. [facility] pyridoxine, VITAMIN B-6, 25 mg tablet 3-0 7-18 11:58: 31 Yes 25mg Take 1 tablet by mouth in the morning. [facility] pyridoxine, VITAMIN B-6, 25 mg tablet 2023-0 7-18 11:58: 31 Yes 25mg Take 1 tablet by mouth in the morning. [facility] pyridoxine, VITAMIN B-6, 25 mg tablet 3-0 7-18 11:58: 31 Yes 25mg Take 1 tablet by mouth in the morning. [facility] pyridoxine, VITAMIN B-6, 25 mg tablet 2023-0 7-18 11:58: 31 Yes 25mg Take 1 tablet by mouth in the morning. [facility] pyridoxine, VITAMIN B-6, 25 mg tablet 3-0 7-18 11:58: 31 Yes 25mg Take 1 tablet by mouth in the morning. [facility] pyridoxine, VITAMIN B-6, 25 mg tablet 3-0 7-18 11:58: 31 Yes 25mg Take 1 tablet by mouth in the morning. [facility] pyridoxine, VITAMIN B-6, 25 mg tablet 3-0 7-18 11:58: 31 Yes 25mg Take 1 tablet by mouth in the morning. [facility] pyridoxine, VITAMIN B-6, 25 mg tablet 3-0 7-18 11:58: 31 Yes 25mg Take 1 tablet by mouth in the morning. [facility] pyridoxine, VITAMIN B-6, 25 mg tablet 2023-0 7-18 11:58: 31 Yes 25mg Take 1 tablet by mouth in the morning. [facility] pyridoxine, VITAMIN B-6, 25 mg tablet 2023-0 7-18 11:58: 31 Yes 25mg Take 1 tablet by mouth in the morning. [facility] pyridoxine, VITAMIN B-6, 25 mg tablet 2023-0 7-18 11:58: 31 Yes 25mg Take 1 tablet by mouth in the morning. [facility] pyridoxine, VITAMIN B-6, 25 mg tablet 2022-0 08-24 11:58: 31 Yes 25mg Take 1 tablet by mouth in the morning. [facility] pyridoxine, VITAMIN B-6, 25 mg tablet 2022-0 18 11:58: 31 Yes 25mg Take 1 tablet by mouth in the morning. [facility] pyridoxine, VITAMIN B-6, 25 mg tablet 2022-0 08-24 11:58: 31 Yes 25mg Take 1 tablet by mouth in the morning. [facility] pyridoxine, VITAMIN B-6, 25 mg tablet 2022-0 08-24 11:58: 31 Yes 25mg Take 1 tablet by mouth in the morning. [facility] pyridoxine, VITAMIN B-6, 25 mg tablet 2022-0 08-24 11:58: 31 Yes 25mg Take 1 tablet by mouth in the morning. [facility] pyridoxine, VITAMIN B-6, 25 mg tablet 2022-0 08-24 11:58: 31 Yes 25mg Take 1 tablet by mouth in the morning. [facility] pyridoxine, VITAMIN B-6, 25 mg tablet 0 08-24 11:58: 31 Yes 25mg Take 1 tablet by mouth in the morning. [facility] pyridoxine, VITAMIN B-6, 25 mg tablet 0 08-24 11:58: 31 Yes 25mg Take 1 tablet by mouth in the morning. [facility] pyridoxine, VITAMIN B-6, 25 mg tablet 2022-0 08-24 11:58: 31 Yes 25mg Take 1 tablet by mouth in the morning. [facility] pyridoxine, VITAMIN B-6, 25 mg tablet 2022-0 08-24 11:58: 31 Yes 25mg Take 1 tablet by mouth in the morning. [facility] terbinafine HCL 1 % cream 0 18 00:00: 00 Yes [id number] Apply to area(s) 2 (two) times daily. [facility] terbinafine HCL 1 % cream 2023-0 7-18 00:00: 00 Yes [id number] Apply to area(s) 2 (two) times daily. [facility] terbinafine HCL 1 % cream 2023-0 7-18 00:00: 00 Yes [id number] Apply to area(s) 2 (two) times daily. [facility] terbinafine HCL 1 % cream 2023-0 7-18 00:00: 00 Yes [id number] Apply to area(s) 2 (two) times daily. [facility] terbinafine HCL 1 % cream 2023-0 7-18 00:00: 00 Yes [id number] Apply to area(s) 2 (two) times daily. [facility] terbinafine HCL 1 % cream 2023-0 7-18 00:00: 00 Yes [id number] Apply to area(s) 2 (two) times daily. [facility] terbinafine HCL 1 % cream 2023-0 7-18 00:00: 00 Yes [id number] Apply to area(s) 2 (two) times daily. [facility] terbinafine HCL 1 % cream 2023-0 7-18 00:00: 00 Yes [id number] Apply to area(s) 2 (two) times daily. [facility] terbinafine HCL 1 % cream 2023-0 7-18 00:00: 00 Yes [id number] Apply to area(s) 2 (two) times daily. [facility] terbinafine HCL 1 % cream 2023-0 7-18 00:00: 00 Yes [id number] Apply to area(s) 2 (two) times daily. [facility] terbinafine HCL 1 % cream 2023-0 7-18 00:00: 00 Yes [id number] Apply to area(s) 2 (two) times daily. [facility] terbinafine HCL 1 % cream 2023-0 7-18 00:00: 00 Yes [id number] Apply to area(s) 2 (two) times daily. [facility] terbinafine HCL 1 % cream 2023-0 7-18 00:00: 00 Yes [id number] Apply to area(s) 2 (two) times daily. [facility] terbinafine HCL 1 % cream 2023-0 7-18 00:00: 00 Yes [id number] Apply to area(s) 2 (two) times daily. [facility] terbinafine HCL 1 % cream 2023-0 7-18 00:00: 00 Yes [id number] Apply to area(s) 2 (two) times daily. [facility] terbinafine HCL 1 % cream 2023-0 7-18 00:00: 00 Yes [id number] Apply to area(s) 2 (two) times daily. [facility] terbinafine HCL 1 % cream 2023-0 7-18 00:00: 00 Yes [id number] Apply to area(s) 2 (two) times daily. [facility] terbinafine HCL 1 % cream 2023-0 7-18 00:00: 00 Yes [id number] Apply to area(s) 2 (two) times daily. [facility] terbinafine HCL 1 % cream 2023-0 7-18 00:00: 00 Yes [id number] Apply to area(s) 2 (two) times daily. [facility] terbinafine HCL 1 % cream 2023-0 7-18 00:00: 00 Yes [id number] Apply to area(s) 2 (two) times daily. [facility] terbinafine HCL 1 % cream 2023-0 7-18 00:00: 00 Yes [id number] Apply to area(s) 2 (two) times daily. [facility] terbinafine HCL 1 % cream 2023-0 7-18 00:00: 00 Yes [id number] Apply to area(s) 2 (two) times daily. [facility] terbinafine HCL 1 % cream 2023-0 7-18 00:00: 00 Yes [id number] Apply to area(s) 2 (two) times daily. [facility] terbinafine HCL 1 % cream 2023-0 7-18 00:00: 00 Yes [id number] Apply to area(s) 2 (two) times daily. [facility] terbinafine HCL 1 % cream 2023-0 7-18 00:00: 00 Yes [id number] Apply to area(s) 2 (two) times daily. [facility] terbinafine HCL 1 % cream 2023-0 7-18 00:00: 00 Yes [id number] Apply to area(s) 2 (two) times daily. [facility] terbinafine HCL 1 % cream 2023-0 7-18 00:00: 00 Yes [id number] Apply to area(s) 2 (two) times daily. [facility] terbinafine HCL 1 % cream 2023-0 7-18 00:00: 00 Yes [id number] Apply to area(s) 2 (two) times daily. [facility] terbinafine HCL 1 % cream 2023-0 7-18 00:00: 00 Yes [id number] Apply to area(s) 2 (two) times daily. [facility] terbinafine HCL 1 % cream 2023-0 7-18 00:00: 00 Yes [id number] Apply to area(s) 2 (two) times daily. [facility] terbinafine HCL 1 % cream 2023-0 7-18 00:00: 00 Yes [id number] Apply to area(s) 2 (two) times daily. [facility] terbinafine HCL 1 % cream 2023-0 7-18 00:00: 00 Yes [id number] Apply to area(s) 2 (two) times daily. [facility] terbinafine HCL 1 % cream 2023-0 7-18 00:00: 00 Yes [id number] Apply to area(s) 2 (two) times daily. [facility] terbinafine HCL 1 % cream 2023-0 7-18 00:00: 00 Yes [id number] Apply to area(s) 2 (two) times daily. [facility] terbinafine HCL 1 % cream 2023-0 7-18 00:00: 00 Yes [id number] Apply to area(s) 2 (two) times daily. [facility] terbinafine HCL 1 % cream 2023-0 7-18 00:00: 00 Yes [id number] Apply to area(s) 2 (two) times daily. [facility] terbinafine HCL 1 % cream 2023-0 7-18 00:00: 00 Yes [id number] Apply to area(s) 2 (two) times daily. [facility] terbinafine HCL 1 % cream 2023-0 7-18 00:00: 00 Yes [id number] Apply to area(s) 2 (two) times daily. [facility] terbinafine HCL 1 % cream 2023-0 7-18 00:00: 00 Yes [id number] Apply to area(s) 2 (two) times daily. [facility] terbinafine HCL 1 % cream 2023-0 7-18 00:00: 00 Yes [id number] Apply to area(s) 2 (two) times daily. [facility] terbinafine HCL 1 % cream 2023-0 7-18 00:00: 00 Yes [id number] Apply to area(s) 2 (two) times daily. [facility] terbinafine HCL 1 % cream 2023-0 7-18 00:00: 00 Yes [id number] Apply to area(s) 2 (two) times daily. [facility] terbinafine HCL 1 % cream 2023-0 7-18 00:00: 00 Yes [id number] Apply to area(s) 2 (two) times daily. [facility] terbinafine HCL 1 % cream 2023-0 7-18 00:00: 00 Yes [id number] Apply to area(s) 2 (two) times daily. [facility] terbinafine HCL 1 % cream 2023-0 7-18 00:00: 00 Yes [id number] Apply to area(s) 2 (two) times daily. [facility] terbinafine HCL 1 % cream 2023-0 7-18 00:00: 00 Yes [id number] Apply to area(s) 2 (two) times daily. [facility] terbinafine HCL 1 % cream 2023-0 7-18 00:00: 00 Yes [id number] Apply to area(s) 2 (two) times daily. [facility] terbinafine HCL 1 % cream 2023-0 7-18 00:00: 00 Yes [id number] Apply to area(s) 2 (two) times daily. [facility] terbinafine HCL 1 % cream 2023-0 7-18 00:00: 00 Yes [id number] Apply to area(s) 2 (two) times daily. [facility] terbinafine HCL 1 % cream 2023-0 7-18 00:00: 00 Yes [id number] Apply to area(s) 2 (two) times daily. [facility] terbinafine HCL 1 % cream 2023-0 7-18 00:00: 00 Yes [id number] Apply to area(s) 2 (two) times daily. [facility] terbinafine HCL 1 % cream 2023-0 7-18 00:00: 00 Yes [id number] Apply to area(s) 2 (two) times daily. [facility] terbinafine HCL 1 % cream 2023-0 7-18 00:00: 00 Yes [id number] Apply to area(s) 2 (two) times daily. [facility] terbinafine HCL 1 % cream 2023-0 7-18 00:00: 00 Yes [id number] Apply to area(s) 2 (two) times daily. [facility] terbinafine HCL 1 % cream 2023-0 7-18 00:00: 00 Yes [id number] Apply to area(s) 2 (two) times daily. [facility] terbinafine HCL 1 % cream 2023-0 7-18 00:00: 00 Yes [id number] Apply to area(s) 2 (two) times daily. [facility] terbinafine HCL 1 % cream 2023-0 7-18 00:00: 00 Yes [id number] Apply to area(s) 2 (two) times daily. [facility] terbinafine HCL 1 % cream 2022-0 18 00:00: 00 Yes [id number] Apply to area(s) 2 (two) times daily. [facility] terbinafine HCL 1 % cream 2022-0 18 00:00: 00 Yes [id number] Apply to area(s) 2 (two) times daily. [facility] terbinafine HCL 1 % cream 0 18 00:00: 00 Yes [id number] Apply to area(s) 2 (two) times daily. [facility] cephALEXin 500 mg capsule 0 4 09:34: 27 Yes 500mg Take 1 capsule by mouth 4 (four) times daily. [facility] acetaminoph en 650 mg CR tablet 0 04-08 09:49: 35 Yes 650mg Take 1 tablet by mouth every 8 (eight) hours as needed for Pain. [facility] MELOXICAM ORAL 0 04-08 09:49: 35 Yes 15mg Take 15 mg by mouth. [facility] Lactobacill us acidoph-pec tin capsule 2022-0 04-08 09:49: 35 Yes 1{capsu le} Take 1 capsule by mouth in the morning. [facility] loperamide (IMODIUM A-D) 2 mg capsule 2022-0 04-08 09:49: 35 Yes 2mg Take 1 capsule by mouth every 4 (four) hours as needed for Diarrhea. [facility] acetaminoph en 650 mg CR tablet 0 04-08 09:49: 35 Yes 650mg Take 1 tablet by mouth every 8 (eight) hours as needed for Pain. [facility] MELOXICAM ORAL 2022-0 04-08 09:49: 35 Yes 15mg Take 15 mg by mouth. [facility] Lactobacill us acidoph-pec tin capsule 2022-0 04-08 09:49: 35 Yes 1{capsu le} Take 1 capsule by mouth in the morning. [facility] loperamide (IMODIUM A-D) 2 mg capsule 2022-0 04-08 09:49: 35 Yes 2mg Take 1 capsule by mouth every 4 (four) hours as needed for Diarrhea. [facility] acetaminoph en 650 mg CR tablet 2022-0 04-08 09:49: 35 Yes 650mg Take 1 tablet by mouth every 8 (eight) hours as needed for Pain. [facility] MELOXICAM ORAL 2022-0 04-08 09:49: 35 Yes 15mg Take 15 mg by mouth. [facility] Lactobacill us acidoph-pec tin capsule 2022-0 04-08 09:49: 35 Yes 1{capsu le} Take 1 capsule by mouth in the morning. [facility] loperamide (IMODIUM A-D) 2 mg capsule 2022-0 04-08 09:49: 35 Yes 2mg Take 1 capsule by mouth every 4 (four) hours as needed for Diarrhea. [facility] acetaminoph en 650 mg CR tablet 2022-0 04-08 09:49: 35 Yes 650mg Take 1 tablet by mouth every 8 (eight) hours as needed for Pain. [facility] MELOXICAM ORAL 2022-0 04-08 09:49: 35 Yes 15mg Take 15 mg by mouth. [facility] Lactobacill us acidoph-pec tin capsule 2022-0 04-08 09:49: 35 Yes 1{capsu le} Take 1 capsule by mouth in the morning. [facility] loperamide (IMODIUM A-D) 2 mg capsule 2022-0 04-08 09:49: 35 Yes 2mg Take 1 capsule by mouth every 4 (four) hours as needed for Diarrhea. [facility] acetaminoph en 650 mg CR tablet 2022-0 04-08 09:49: 35 Yes 650mg Take 1 tablet by mouth every 8 (eight) hours as needed for Pain. [facility] MELOXICAM ORAL 2022-0 04-08 09:49: 35 Yes 15mg Take 15 mg by mouth. [facility] Lactobacill us acidoph-pec tin capsule 3-0 04-08 09:49: 35 Yes 1{capsu le} Take 1 capsule by mouth in the morning. [facility] loperamide (IMODIUM A-D) 2 mg capsule 2022-0 04-08 09:49: 35 Yes 2mg Take 1 capsule by mouth every 4 (four) hours as needed for Diarrhea. [facility] acetaminoph en 650 mg CR tablet 2022-0 04-08 09:49: 35 Yes 650mg Take 1 tablet by mouth every 8 (eight) hours as needed for Pain. [facility] MELOXICAM ORAL 2022-0 04-08 09:49: 35 Yes 15mg Take 15 mg by mouth. [facility] Lactobacill us acidoph-pec tin capsule 2022-0 04-08 09:49: 35 Yes 1{capsu le} Take 1 capsule by mouth in the morning. [facility] loperamide (IMODIUM A-D) 2 mg capsule 2022-0 04-08 09:49: 35 Yes 2mg Take 1 capsule by mouth every 4 (four) hours as needed for Diarrhea. [facility] acetaminoph en 650 mg CR tablet 0 04-08 09:49: 35 Yes 650mg Take 1 tablet by mouth every 8 (eight) hours as needed for Pain. [facility] MELOXICAM ORAL 2022-0 04-08 09:49: 35 Yes 15mg Take 15 mg by mouth. [facility] Lactobacill us acidoph-pec tin capsule 2022-0 04-08 09:49: 35 Yes 1{capsu le} Take 1 capsule by mouth in the morning. [facility] loperamide (IMODIUM A-D) 2 mg capsule 2022-0 04-08 09:49: 35 Yes 2mg Take 1 capsule by mouth every 4 (four) hours as needed for Diarrhea. [facility] acetaminoph en 650 mg CR tablet 0 04-08 09:49: 35 Yes 650mg Take 1 tablet by mouth every 8 (eight) hours as needed for Pain. [facility] MELOXICAM ORAL 2022-0 04-08 09:49: 35 Yes 15mg Take 15 mg by mouth. [facility] Lactobacill us acidoph-pec tin capsule 2022-0 04-08 09:49: 35 Yes 1{capsu le} Take 1 capsule by mouth in the morning. [facility] loperamide (IMODIUM A-D) 2 mg capsule 2022-0 04-08 09:49: 35 Yes 2mg Take 1 capsule by mouth every 4 (four) hours as needed for Diarrhea. [facility] acetaminoph en 650 mg CR tablet 2022-0 04-08 09:49: 35 Yes 650mg Take 1 tablet by mouth every 8 (eight) hours as needed for Pain. [facility] MELOXICAM ORAL 2022-0 04-08 09:49: 35 Yes 15mg Take 15 mg by mouth. [facility] Lactobacill us acidoph-pec tin capsule 2022-0 04-08 09:49: 35 Yes 1{capsu le} Take 1 capsule by mouth in the morning. [facility] loperamide (IMODIUM A-D) 2 mg capsule 2022-0 04-08 09:49: 35 Yes 2mg Take 1 capsule by mouth every 4 (four) hours as needed for Diarrhea. [facility] acetaminoph en 650 mg CR tablet 0 04-08 09:49: 35 Yes 650mg Take 1 tablet by mouth every 8 (eight) hours as needed for Pain. [facility] MELOXICAM ORAL 0 04-08 09:49: 35 Yes 15mg Take 15 mg by mouth. [facility] Lactobacill us acidoph-pec tin capsule 2022-0 04-08 09:49: 35 Yes 1{capsu le} Take 1 capsule by mouth in the morning. [facility] loperamide (IMODIUM A-D) 2 mg capsule 2022-0 04-08 09:49: 35 Yes 2mg Take 1 capsule by mouth every 4 (four) hours as needed for Diarrhea. [facility] acetaminoph en 650 mg CR tablet 2022-0 04-08 09:49: 35 Yes 650mg Take 1 tablet by mouth every 8 (eight) hours as needed for Pain. [facility] MELOXICAM ORAL 2022-0 04-08 09:49: 35 Yes 15mg Take 15 mg by mouth. [facility] Lactobacill us acidoph-pec tin capsule 2022-0 04-08 09:49: 35 Yes 1{capsu le} Take 1 capsule by mouth in the morning. [facility] loperamide (IMODIUM A-D) 2 mg capsule 2022-0 04-08 09:49: 35 Yes 2mg Take 1 capsule by mouth every 4 (four) hours as needed for Diarrhea. [facility] acetaminoph en 650 mg CR tablet 2022-0 04-08 09:49: 35 Yes 650mg Take 1 tablet by mouth every 8 (eight) hours as needed for Pain. [facility] MELOXICAM ORAL 2022-0 04-08 09:49: 35 Yes 15mg Take 15 mg by mouth. [facility] acid[facility]pec tin capsule 2022-0 04-08 09:49: 35 Yes 1{capsu le} Take 1 capsule by mouth in the morning. [facility] loperamide (IMODIUM A-D) 2 mg capsule 2022-0 04-08 09:49: 35 Yes 2mg Take 1 capsule by mouth every 4 (four) hours as needed for Diarrhea. [facility] acetaminoph en 650 mg CR tablet 0 04-08 09:49: 35 Yes 650mg Take 1 tablet by mouth every 8 (eight) hours as needed for Pain. [facility] MELOXICAM ORAL 2022-0 04-08 09:49: 35 Yes 15mg Take 15 mg by mouth. [facility] acidoph-pec tin capsule 2022-0 04-08 09:49: 35 Yes 1{capsu le} Take 1 capsule by mouth in the morning. [facility] loperamide (IMODIUM A-D) 2 mg capsule 2022-0 04-08 09:49: 35 Yes 2mg Take 1 capsule by mouth every 4 (four) hours as needed for Diarrhea. [facility] acetaminoph en 650 mg CR tablet 2022-0 04-08 09:49: 35 Yes 650mg Take 1 tablet by mouth every 8 (eight) hours as needed for Pain. [facility] MELOXICAM ORAL 2022-0 04-08 09:49: 35 Yes 15mg Take 15 mg by mouth. [facility] Lactobacill us acidoph-pec tin capsule 2022-0 04-08 09:49: 35 Yes 1{capsu le} Take 1 capsule by mouth in the morning. [facility] loperamide (IMODIUM A-D) 2 mg capsule 2022-0 04-08 09:49: 35 Yes 2mg Take 1 capsule by mouth every 4 (four) hours as needed for Diarrhea. [facility] acetaminoph en 650 mg CR tablet 0 04-08 09:49: 35 Yes 650mg Take 1 tablet by mouth every 8 (eight) hours as needed for Pain. [facility] MELOXICAM ORAL 2022-0 04-08 09:49: 35 Yes 15mg Take 15 mg by mouth. [facility] Lactobacill us acidoph-pec tin capsule 2022-0 04-08 09:49: 35 Yes 1{capsu le} Take 1 capsule by mouth in the morning. [facility] loperamide (IMODIUM A-D) 2 mg capsule 2022-0 04-08 09:49: 35 Yes 2mg Take 1 capsule by mouth every 4 (four) hours as needed for Diarrhea. [facility] acetaminoph en 650 mg CR tablet 04-08 09:49: 35 Yes 650mg Take 1 tablet by mouth every 8 (eight) hours as needed for Pain. [facility] MELOXICAM ORAL 2022-0 04-08 09:49: 35 Yes 15mg Take 15 mg by mouth. [facility] Lactobacill us acidoph-pec tin capsule 2022-0 04-08 09:49: 35 Yes 1{capsu le} Take 1 capsule by mouth in the morning. [facility] loperamide (IMODIUM A-D) 2 mg capsule 2022-0 04-08 09:49: 35 Yes 2mg Take 1 capsule by mouth every 4 (four) hours as needed for Diarrhea. [facility] acetaminoph en 650 mg CR tablet 2022-0 04-08 09:49: 35 Yes 650mg Take 1 tablet by mouth every 8 (eight) hours as needed for Pain. [facility] MELOXICAM ORAL 2022-0 04-08 09:49: 35 Yes 15mg Take 15 mg by mouth. [facility] Lactobacill us acidoph-pec tin capsule 2022-0 04-08 09:49: 35 Yes 1{capsu le} Take 1 capsule by mouth in the morning. [facility] loperamide (IMODIUM A-D) 2 mg capsule 2022-0 04-08 09:49: 35 Yes 2mg Take 1 capsule by mouth every 4 (four) hours as needed for Diarrhea. [facility] acetaminoph en 650 mg CR tablet 0 04-08 09:49: 35 Yes 650mg Take 1 tablet by mouth every 8 (eight) hours as needed for Pain. [facility] MELOXICAM ORAL 2022-0 04-08 09:49: 35 Yes 15mg Take 15 mg by mouth. [facility] Lactobacill us acidoph-pec tin capsule 2022-0 04-08 09:49: 35 Yes 1{capsu le} Take 1 capsule by mouth in the morning. [facility] loperamide (IMODIUM A-D) 2 mg capsule 2022-0 04-08 09:49: 35 Yes 2mg Take 1 capsule by mouth every 4 (four) hours as needed for Diarrhea. [facility] acetaminoph en 650 mg CR tablet 2022-0 04-08 09:49: 35 Yes 650mg Take 1 tablet by mouth every 8 (eight) hours as needed for Pain. [facility] MELOXICAM ORAL 2022-0 04-08 09:49: 35 Yes 15mg Take 15 mg by mouth. [facility] Lactobacill us acidoph-pec tin capsule 2022-0 04-08 09:49: 35 Yes 1{capsu le} Take 1 capsule by mouth in the morning. [facility] loperamide (IMODIUM A-D) 2 mg capsule 2022-0 04-08 09:49: 35 Yes 2mg Take 1 capsule by mouth every 4 (four) hours as needed for Diarrhea. [facility] acetaminoph en 650 mg CR tablet 2022-0 04-08 09:49: 35 Yes 650mg Take 1 tablet by mouth every 8 (eight) hours as needed for Pain. [facility] MELOXICAM ORAL 2022-0 04-08 09:49: 35 Yes 15mg Take 15 mg by mouth. [facility] Lactobacill us acidoph-pec tin capsule 2022-0 04-08 09:49: 35 Yes 1{capsu le} Take 1 capsule by mouth in the morning. [facility] loperamide (IMODIUM A-D) 2 mg capsule 2022-0 04-08 09:49: 35 Yes 2mg Take 1 capsule by mouth every 4 (four) hours as needed for Diarrhea. [facility] acetaminoph en 650 mg CR tablet 2022-0 04-08 09:49: 35 Yes 650mg Take 1 tablet by mouth every 8 (eight) hours as needed for Pain. [facility] MELOXICAM ORAL 2022-0 04-08 09:49: 35 Yes 15mg Take 15 mg by mouth. [facility] Lactobacill us acidoph-pec tin capsule 2022-0 04-08 09:49: 35 Yes 1{capsu le} Take 1 capsule by mouth in the morning. [facility] loperamide (IMODIUM A-D) 2 mg capsule 2022-0 04-08 09:49: 35 Yes 2mg Take 1 capsule by mouth every 4 (four) hours as needed for Diarrhea. [facility] acetaminoph en 650 mg CR tablet 2022-0 04-08 09:49: 35 Yes 650mg Take 1 tablet by mouth every 8 (eight) hours as needed for Pain. [facility] MELOXICAM ORAL 2022-0 04-08 09:49: 35 Yes 15mg Take 15 mg by mouth. [facility] Lactobacill us acidoph-pec tin capsule 2022-0 04-08 09:49: 35 Yes 1{capsu le} Take 1 capsule by mouth in the morning. [facility] loperamide (IMODIUM A-D) 2 mg capsule 2022-0 04-08 09:49: 35 Yes 2mg Take 1 capsule by mouth every 4 (four) hours as needed for Diarrhea. [facility] acetaminoph en 650 mg CR tablet 2022-0 04-08 09:49: 35 Yes 650mg Take 1 tablet by mouth every 8 (eight) hours as needed for Pain. [facility] MELOX[facility]AM ORAL 2022-0 04-08 09:49: 35 Yes 15mg Take 15 mg by mouth. [facility] Lactobacill us acidoph-pec tin capsule 2022-0 04-08 09:49: 35 Yes 1{capsu le} Take 1 capsule by mouth in the morning. [facility] loperamide (IMODIUM A-D) 2 mg capsule 2022-0 04-08 09:49: 35 Yes 2mg Take 1 capsule by mouth every 4 (four) hours as needed for Diarrhea. [facility] acetaminoph en 650 mg CR tablet 0 04-08 09:49: 35 Yes 650mg Take 1 tablet by mouth every 8 (eight) hours as needed for Pain. [facility] MELOXICAM ORAL 2022-0 04-08 09:49: 35 Yes 15mg Take 15 mg by mouth. [facility] Lactobacill us acidoph-pec tin capsule 0 04-08 09:49: 35 Yes 1{capsu le} Take 1 capsule by mouth in the morning. [facility] loperamide (IMODIUM A-D) 2 mg capsule 0 04-08 09:49: 35 Yes 2mg Take 1 capsule by mouth every 4 (four) hours as needed for Diarrhea. [facility] acetaminoph en 650 mg CR tablet 0 04-08 09:49: 35 Yes 650mg Take 1 tablet by mouth every 8 (eight) hours as needed for Pain. [facility] MELOXICAM ORAL 2022-0 04-08 09:49: 35 Yes 15mg Take 15 mg by mouth. [facility] Lactobacill us acidoph-pec tin capsule 2022-0 04-08 09:49: 35 Yes 1{capsu le} Take 1 capsule by mouth in the morning. [facility] loperamide (IMODIUM A-D) 2 mg capsule 2022-0 04-08 09:49: 35 Yes 2mg Take 1 capsule by mouth every 4 (four) hours as needed for Diarrhea. [facility] acetaminoph en 650 mg CR tablet 2022-0 04-08 09:49: 35 Yes 650mg Take 1 tablet by mouth every 8 (eight) hours as needed for Pain. [facility] MELOXICAM ORAL 2022-0 04-08 09:49: 35 Yes 15mg Take 15 mg by mouth. [facility] Lactobacill us acidoph-pec tin capsule 2022-0 04-08 09:49: 35 Yes 1{capsu le} Take 1 capsule by mouth in the morning. [facility] loperamide (IMODIUM A-D) 2 mg capsule 3-0 04-08 09:49: 35 Yes 2mg Take 1 capsule by mouth every 4 (four) hours as needed for Diarrhea. [facility] acetaminoph en 650 mg CR tablet 2022-0 04-08 09:49: 35 Yes 650mg Take 1 tablet by mouth every 8 (eight) hours as needed for Pain. [facility] MELOXICAM ORAL 2022-0 04-08 09:49: 35 Yes 15mg Take 15 mg by mouth. [facility] Lactobacill us acidoph-pec tin capsule 2022-0 04-08 09:49: 35 Yes 1{capsu le} Take 1 capsule by mouth in the morning. [facility] loperamide (IMODIUM A-D) 2 mg capsule 2022-0 04-08 09:49: 35 Yes 2mg Take 1 capsule by mouth every 4 (four) hours as needed for Diarrhea. [facility] acetaminoph en 650 mg CR tablet 2022-0 04-08 09:49: 35 Yes 650mg Take 1 tablet by mouth every 8 (eight) hours as needed for Pain. [facility] MELOXICAM ORAL 2022-0 04-08 09:49: 35 Yes 15mg Take 15 mg by mouth. [facility] Lactobacill us acidoph-pec tin capsule 3-0 04-08 09:49: 35 Yes 1{capsu le} Take 1 capsule by mouth in the morning. [facility] loperamide (IMODIUM A-D) 2 mg capsule 2022-0 04-08 09:49: 35 Yes 2mg Take 1 capsule by mouth every 4 (four) hours as needed for Diarrhea. [facility] acetaminoph en 650 mg CR tablet 2022-0 04-08 09:49: 35 Yes 650mg Take 1 tablet by mouth every 8 (eight) hours as needed for Pain. [facility] MELOXICAM ORAL 2022-0 04-08 09:49: 35 Yes 15mg Take 15 mg by mouth. [facility] Lactobacill us acidoph-pec tin capsule 2022-0 04-08 09:49: 35 Yes 1{capsu le} Take 1 capsule by mouth in the morning. [facility] loperamide (IMODIUM A-D) 2 mg capsule 2022-0 04-08 09:49: 35 Yes 2mg Take 1 capsule by mouth every 4 (four) hours as needed for Diarrhea. [facility] acetaminoph en 650 mg CR tablet 2022-0 04-08 09:49: 35 Yes 650mg Take 1 tablet by mouth every 8 (eight) hours as needed for Pain. [facility] MELOXICAM ORAL 2022-0 04-08 09:49: 35 Yes 15mg Take 15 mg by mouth. [facility] Lactobacill us acidoph-pec tin capsule 2022-0 04-08 09:49: 35 Yes 1{capsu le} Take 1 capsule by mouth in the morning. [facility] loperamide (IMODIUM A-D) 2 mg capsule 2022-0 04-08 09:49: 35 Yes 2mg Take 1 capsule by mouth every 4 (four) hours as needed for Diarrhea. [facility] acetaminoph en 650 mg CR tablet 2022-0 04-08 09:49: 35 Yes 650mg Take 1 tablet by mouth every 8 (eight) hours as needed for Pain. [facility] MELOXICAM ORAL 2022-0 04-08 09:49: 35 Yes 15mg Take 15 mg by mouth. [facility] Lactobacill us acidoph-pec tin capsule 3-0 04-08 09:49: 35 Yes 1{capsu le} Take 1 capsule by mouth in the morning. [facility] loperamide (IMODIUM A-D) 2 mg capsule 2022-0 04-08 09:49: 35 Yes 2mg Take 1 capsule by mouth every 4 (four) hours as needed for Diarrhea. [facility] acetaminoph en 650 mg CR tablet 04-08 09:49: 35 Yes 650mg Take 1 tablet by mouth every 8 (eight) hours as needed for Pain. [facility] MELOXICAM ORAL 2022-0 04-08 09:49: 35 Yes 15mg Take 15 mg by mouth. [facility] Lactobacill us acidoph-pec tin capsule 0 04-08 09:49: 35 Yes 1{capsu le} Take 1 capsule by mouth in the morning. [facility] loperamide (IMODIUM A-D) 2 mg capsule 2022-0 04-08 09:49: 35 Yes 2mg Take 1 capsule by mouth every 4 (four) hours as needed for Diarrhea. [facility] acetaminoph en 650 mg CR tablet 04-08 09:49: 35 Yes 650mg Take 1 tablet by mouth every 8 (eight) hours as needed for Pain. [facility] MELOXICAM ORAL 0 04-08 09:49: 35 Yes 15mg Take 15 mg by mouth. [facility] Lactobacill us acidoph-pec tin capsule 2022-0 04-08 09:49: 35 Yes 1{capsu le} Take 1 capsule by mouth in the morning. [facility] loperamide (IMODIUM A-D) 2 mg capsule 2022-0 04-08 09:49: 35 Yes 2mg Take 1 capsule by mouth every 4 (four) hours as needed for Diarrhea. [facility] acetaminoph en 650 mg CR tablet 0 04-08 09:49: 35 Yes 650mg Take 1 tablet by mouth every 8 (eight) hours as needed for Pain. [facility] MELOXICAM ORAL 2022-0 04-08 09:49: 35 Yes 15mg Take 15 mg by mouth. [facility] Lactobacill us acidoph-pec tin capsule 2022-0 04-08 09:49: 35 Yes 1{capsu le} Take 1 capsule by mouth in the morning. [facility] loperamide (IMODIUM A-D) 2 mg capsule 04-08 09:49: 35 Yes 2mg Take 1 capsule by mouth every 4 (four) hours as needed for Diarrhea. [facility] acetaminoph en 650 mg CR tablet 04-08 09:49: 35 Yes 650mg Take 1 tablet by mouth every 8 (eight) hours as needed for Pain. [facility] MELOXICAM ORAL 04-08 09:49: 35 Yes 15mg Take 15 mg by mouth. [facility] acetaminoph en 650 mg CR tablet 04-08 09:49: 35 Yes 650mg Take 1 tablet by mouth every 8 (eight) hours as needed for Pain. [facility] acetaminoph en 650 mg CR tablet 04-08 09:49: 35 Yes 650mg Take 1 tablet by mouth every 8 (eight) hours as needed for Pain. [facility] acetaminoph en 650 mg CR tablet 04-08 09:49: 35 Yes 650mg Take 1 tablet by mouth every 8 (eight) hours as needed for Pain. [facility] Lactobacill us acidoph-pec tin capsule 04-08 09:49: 35 Yes 1{capsu le} Take 1 capsule by mouth in the morning. [facility] loperamide (IMODIUM A-D) 2 mg capsule 04-08 09:49: 35 Yes 2mg Take 1 capsule by mouth every 4 (four) hours as needed for Diarrhea. [facility] acetaminoph en 650 mg CR tablet 04-08 09:49: 35 Yes 650mg Take 1 tablet by mouth every 8 (eight) hours as needed for Pain. [facility] Lactobacill us acidoph-pec tin capsule 04-08 09:49: 35 Yes 1{capsu le} Take 1 capsule by mouth in the morning. [facility] loperamide (IMODIUM A-D) 2 mg capsule 04-08 09:49: 35 Yes 2mg Take 1 capsule by mouth every 4 (four) hours as needed for Diarrhea. [facility] acetaminoph en 650 mg CR tablet 0 04-08 09:49: 35 Yes 650mg Take 1 tablet by mouth every 8 (eight) hours as needed for Pain. [facility] Lactobacill us acidoph-pec tin capsule 2022-0 04-08 09:49: 35 Yes 1{capsu le} Take 1 capsule by mouth in the morning. [facility] loperamide (IMODIUM A-D) 2 mg capsule 2022-0 04-08 09:49: 35 Yes 2mg Take 1 capsule by mouth every 4 (four) hours as needed for Diarrhea. [facility] acetaminoph en 650 mg CR tablet 04-08 09:49: 35 Yes 650mg Take 1 tablet by mouth every 8 (eight) hours as needed for Pain. [facility] Lactobacill us acidoph-pec tin capsule 04-08 09:49: 35 Yes 1{capsu le} Take 1 capsule by mouth in the morning. [facility] loperamide (IMODIUM A-D) 2 mg capsule 0 04-08 09:49: 35 Yes 2mg Take 1 capsule by mouth every 4 (four) hours as needed for Diarrhea. [facility] acetaminoph en 650 mg CR tablet 04-08 09:49: 35 Yes 650mg Take 1 tablet by mouth every 8 (eight) hours as needed for Pain. [facility] Lactobacill us acidoph-pec tin capsule 04-08 09:49: 35 Yes 1{capsu le} Take 1 capsule by mouth in the morning. [facility] loperamide (IMODIUM A-D) 2 mg capsule 0 04-08 09:49: 35 Yes 2mg Take 1 capsule by mouth every 4 (four) hours as needed for Diarrhea. [facility] acetaminoph en 650 mg CR tablet 0 04-08 09:49: 35 Yes 650mg Take 1 tablet by mouth every 8 (eight) hours as needed for Pain. [facility] Lactobacill us acidoph-pec tin capsule 0 04-08 09:49: 35 Yes 1{capsu le} Take 1 capsule by mouth in the morning. [facility] [facility] loperamide (IMODIUM A-D) 2 mg capsule 2022-0 04-08 09:49: 35 Yes 2mg Take 1 capsule by mouth every 4 (four) hours as needed for Diarrhea. [facility] acetaminoph en 650 mg CR tablet 2022-0 04-08 09:49: 35 Yes 650mg Take 1 tablet by mouth every 8 (eight) hours as needed for Pain. [facility] Lactobacill us acidoph-pec tin capsule 2022-0 04-08 09:49: 35 Yes 1{capsu le} Take 1 capsule by mouth in the morning. [facility] loperamide (IMODIUM A-D) 2 mg capsule 2022-0 04-08 09:49: 35 Yes 2mg Take 1 capsule by mouth every 4 (four) hours as needed for Diarrhea. [facility] acetaminoph en 650 mg CR tablet 0 04-08 09:49: 35 Yes 650mg Take 1 tablet by mouth every 8 (eight) hours as needed for Pain. [facility] Lactobacill us acidoph-pec tin capsule 2022-0 04-08 09:49: 35 Yes 1{capsu le} Take 1 capsule by mouth in the morning. [facility] loperamide (IMODIUM A-D) 2 mg capsule 2022-0 04-08 09:49: 35 Yes 2mg Take 1 capsule by mouth every 4 (four) hours as needed for Diarrhea. [facility] acetaminoph en 650 mg CR tablet 2022-0 04-08 09:49: 35 Yes 650mg Take 1 tablet by mouth every 8 (eight) hours as needed for Pain. [facility] Lactobacill us acidoph-pec tin capsule 2022-0 04-08 09:49: 35 Yes 1{capsu le} Take 1 capsule by mouth in the morning. [facility] loperamide (IMODIUM A-D) 2 mg capsule 2022-0 04-08 09:49: 35 Yes 2mg Take 1 capsule by mouth every 4 (four) hours as needed for Diarrhea. [facility] acetaminoph en 650 mg CR tablet 0 04-08 09:49: 35 Yes 650mg Take 1 tablet by mouth every 8 (eight) hours as needed for Pain. [facility] Lactobacill us acidoph-pec tin capsule 2022-0 04-08 09:49: 35 Yes 1{capsu le} Take 1 capsule by mouth in the morning. [facility] loperamide (IMODIUM A-D) 2 mg capsule 04-08 09:49: 35 Yes 2mg Take 1 capsule by mouth every 4 (four) hours as needed for Diarrhea. [facility] acetaminoph en 650 mg CR tablet 04-08 09:49: 35 Yes 650mg Take 1 tablet by mouth every 8 (eight) hours as needed for Pain. [facility] Lactobacill us acidoph-pec tin capsule 04-08 09:49: 35 Yes 1{capsu le} Take 1 capsule by mouth in the morning. [facility] loperamide (IMODIUM A-D) 2 mg capsule 04-08 09:49: 35 Yes 2mg Take 1 capsule by mouth every 4 (four) hours as needed for Diarrhea. [facility] acetaminoph en 650 mg CR tablet 04-08 09:49: 35 Yes 650mg Take 1 tablet by mouth every 8 (eight) hours as needed for Pain. [facility] Lactobacill us acidoph-pec tin capsule 04-08 09:49: 35 Yes 1{capsu le} Take 1 capsule by mouth in the morning. [facility] loperamide (IMODIUM A-D) 2 mg capsule 0 04-08 09:49: 35 Yes 2mg Take 1 capsule by mouth every 4 (four) hours as needed for Diarrhea. [facility] acetaminoph en 650 mg CR tablet 04-08 09:49: 35 Yes 650mg Take 1 tablet by mouth every 8 (eight) hours as needed for Pain. [facility] Lactobacill us acidoph-pec tin capsule 2022-04-08 09:49: 35 Yes 1{capsu le} Take 1 capsule by mouth in the morning. [facility] loperamide (IMODIUM A-D) 2 mg capsule 2022-0 04-08 09:49: 35 Yes 2mg Take 1 capsule by mouth every 4 (four) hours as needed for Diarrhea. [facility] acetaminoph en 650 mg CR tablet 0 04-08 09:49: 35 Yes 650mg Take 1 tablet by mouth every 8 (eight) hours as needed for Pain. [facility] Lactobacill us acidoph-pec tin capsule 2022-0 04-08 09:49: 35 Yes 1{capsu le} Take 1 capsule by mouth in the morning. [facility] loperamide (IMODIUM A-D) 2 mg capsule 04-08 09:49: 35 Yes 2mg Take 1 capsule by mouth every 4 (four) hours as needed for Diarrhea. [facility] acetaminoph en 650 mg CR tablet 04-08 09:49: 35 Yes 650mg Take 1 tablet by mouth every 8 (eight) hours as needed for Pain. [facility] Lactobacill us acidoph-pec tin capsule 0 04-08 09:49: 35 Yes 1{capsu le} Take 1 capsule by mouth in the morning. [facility] loperamide (IMODIUM A-D) 2 mg capsule 04-08 09:49: 35 Yes 2mg Take 1 capsule by mouth every 4 (four) hours as needed for Diarrhea. [facility] acetaminoph en 650 mg CR tablet 04-08 09:49: 35 Yes 650mg Take 1 tablet by mouth every 8 (eight) hours as needed for Pain. [facility] Lactobacill us acidoph-pec tin capsule 2022-0 04-08 09:49: 35 Yes 1{capsu le} Take 1 capsule by mouth in the morning. [facility] loperamide (IMODIUM A-D) 2 mg capsule 2022-0 04-08 09:49: 35 Yes 2mg Take 1 capsule by mouth every 4 (four) hours as needed for Diarrhea. [facility] acetaminoph en 650 mg CR tablet 2022-0 04-08 09:49: 35 Yes 650mg Take 1 tablet by mouth every 8 (eight) hours as needed for Pain. [facility] Lactobacill us acidoph-pec tin capsule 2022-0 04-08 09:49: 35 Yes 1{capsu le} Take 1 capsule by mouth in the morning. [facility] loperamide (IMODIUM A-D) 2 mg capsule 2022-0 04-08 09:49: 35 Yes 2mg Take 1 capsule by mouth every 4 (four) hours as needed for Diarrhea. [facility] acetaminoph en 650 mg CR tablet 2022-0 04-08 09:49: 35 Yes 650mg Take 1 tablet by mouth every 8 (eight) hours as needed for Pain. [facility] Lactobacill us acidoph-pec tin capsule 2022-0 04-08 09:49: 35 Yes 1{capsu le} Take 1 capsule by mouth in the morning. [facility] loperamide (IMODIUM A-D) 2 mg capsule 2022-0 04-08 09:49: 35 Yes 2mg Take 1 capsule by mouth every 4 (four) hours as needed for Diarrhea. [facility] acetaminoph en 650 mg CR tablet 0 04-08 09:49: 35 Yes 650mg Take 1 tablet by mouth every 8 (eight) hours as needed for Pain. [facility] Lactobacill us acidoph-pec tin capsule 2022-0 04-08 09:49: 35 Yes 1{capsu le} Take 1 capsule by mouth in the morning. [facility] loperamide (IMODIUM A-D) 2 mg capsule 2022-0 04-08 09:49: 35 Yes 2mg Take 1 capsule by mouth every 4 (four) hours as needed for Diarrhea. [facility] acetaminoph en 650 mg CR tablet 2022-0 04-08 09:49: 35 Yes 650mg Take 1 tablet by mouth every 8 (eight) hours as needed for Pain. [facility] Lactobacill us acidoph-pec tin capsule 2022-0 04-08 09:49: 35 Yes 1{capsu le} Take 1 capsule by mouth in the morning. [facility] loperamide (IMODIUM A-D) 2 mg capsule 2022-0 04-08 09:49: 35 Yes 2mg Take 1 capsule by mouth every 4 (four) hours as needed for Diarrhea. [facility] acetaminoph en 650 mg CR tablet 2022-0 04-08 09:49: 35 Yes 650mg Take 1 tablet by mouth every 8 (eight) hours as needed for Pain. [facility] Lactobacill us acidoph-pec tin capsule 2022-0 04-08 09:49: 35 Yes 1{capsu le} Take 1 capsule by mouth in the morning. [facility] loperamide (IMODIUM A-D) 2 mg capsule 2022-0 04-08 09:49: 35 Yes 2mg Take 1 capsule by mouth every 4 (four) hours as needed for Diarrhea. [facility] acetaminoph en 650 mg CR tablet 2022-0 04-08 09:49: 35 Yes 650mg Take 1 tablet by mouth every 8 (eight) hours as needed for Pain. [facility] Lactobacill us acidoph-pec tin capsule 2022-0 04-08 09:49: 35 Yes 1{capsu le} Take 1 capsule by mouth in the morning. [facility] loperamide (IMODIUM A-D) 2 mg capsule 2022-04-08 09:49: 35 Yes 2mg Take 1 capsule by mouth every 4 (four) hours as needed for Diarrhea. [facility] acetaminoph en 650 mg CR tablet 2022-0 04-08 09:49: 35 Yes 650mg Take 1 tablet by mouth every 8 (eight) hours as needed for Pain. [facility] Lactobacill us acidoph-pec tin capsule 2022-0 04-08 09:49: 35 Yes 1{capsu le} Take 1 capsule by mouth in the morning. [facility] loperamide (IMODIUM A-D) 2 mg capsule 2022-0 04-08 09:49: 35 Yes 2mg Take 1 capsule by mouth every 4 (four) hours as needed for Diarrhea. [facility] acetaminoph en 650 mg CR tablet 2022-0 04-08 09:49: 35 Yes 650mg Take 1 tablet by mouth every 8 (eight) hours as needed for Pain. [facility] Lactobacill us acidoph-pec tin capsule 2022-0 04-08 09:49: 35 Yes 1{capsu le} Take 1 capsule by mouth in the morning. [facility] loperamide (IMODIUM A-D) 2 mg capsule 2022-0 04-08 09:49: 35 Yes 2mg Take 1 capsule by mouth every 4 (four) hours as needed for Diarrhea. [facility] acetaminoph en 650 mg CR tablet 2022-0 04-08 09:49: 35 Yes 650mg Take 1 tablet by mouth every 8 (eight) hours as needed for Pain. [facility] Lactobacill us acidoph-pec tin capsule 2022-0 04-08 09:49: 35 Yes 1{capsu le} Take 1 capsule by mouth in the morning. [facility] loperamide (IMODIUM A-D) 2 mg capsule 2022-0 04-08 09:49: 35 Yes 2mg Take 1 capsule by mouth every 4 (four) hours as needed for Diarrhea. [facility] acetaminoph en 650 mg CR tablet 0 04-08 09:49: 35 Yes 650mg Take 1 tablet by mouth every 8 (eight) hours as needed for Pain. [facility] Lactobacill us acidoph-pec tin capsule 2022-04-08 09:49: 35 Yes 1{capsu le} Take 1 capsule by mouth in the morning. [facility] loperamide (IMODIUM A-D) 2 mg capsule 2022-0 04-08 09:49: 35 Yes 2mg Take 1 capsule by mouth every 4 (four) hours as needed for Diarrhea. [facility] acetaminoph en 650 mg CR tablet 2022-0 04-08 09:49: 35 Yes 650mg Take 1 tablet by mouth every 8 (eight) hours as needed for Pain. [facility] Lactobacill us acidoph-pec tin capsule 2022-0 04-08 09:49: 35 Yes 1{capsu le} Take 1 capsule by mouth in the morning. [facility] loperamide (IMODIUM A-D) 2 mg capsule 2022-0 04-08 09:49: 35 Yes 2mg Take 1 capsule by mouth every 4 (four) hours as needed for Diarrhea. [facility] acetaminoph en 650 mg CR tablet 2022-0 04-08 09:49: 35 Yes 650mg Take 1 tablet by mouth every 8 (eight) hours as needed for Pain. [facility] Lactobacill us acidoph-pec tin capsule 2022-0 04-08 09:49: 35 Yes 1{capsu le} Take 1 capsule by mouth in the morning. [facility] loperamide (IMODIUM A-D) 2 mg capsule 2022-0 04-08 09:49: 35 Yes 2mg Take 1 capsule by mouth every 4 (four) hours as needed for Diarrhea. [facility] acetaminoph en 650 mg CR tablet 0 04-08 09:49: 35 Yes 650mg Take 1 tablet by mouth every 8 (eight) hours as needed for Pain. [facility] Lactobacill us acidoph-pec tin capsule 2022-0 04-08 09:49: 35 Yes 1{capsu le} Take 1 capsule by mouth in the morning. [facility] loperamide (IMODIUM A-D) 2 mg capsule 0 04-08 09:49: 35 Yes 2mg Take 1 capsule by mouth every 4 (four) hours as needed for Diarrhea. [facility] acetaminoph en 650 mg CR tablet 04-08 09:49: 35 Yes 650mg Take 1 tablet by mouth every 8 (eight) hours as needed for Pain. [facility] Lactobacill us acidoph-pec tin capsule 2022-0 04-08 09:49: 35 Yes 1{capsu le} Take 1 capsule by mouth in the morning. [facility] loperamide (IMODIUM A-D) 2 mg capsule 2022-0 04-08 09:49: 35 Yes 2mg Take 1 capsule by mouth every 4 (four) hours as needed for Diarrhea. [facility] acetaminoph en 650 mg CR tablet 2022-0 04-08 09:49: 35 Yes 650mg Take 1 tablet by mouth every 8 (eight) hours as needed for Pain. [facility] Lactobacill us acidoph-pec tin capsule 04-08 09:49: 35 Yes 1{capsu le} Take 1 capsule by mouth in the morning. [facility] loperamide (IMODIUM A-D) 2 mg capsule 04-08 09:49: 35 Yes 2mg Take 1 capsule by mouth every 4 (four) hours as needed for Diarrhea. [facility] acetaminoph en 650 mg CR tablet 04-08 09:49: 35 Yes 650mg Take 1 tablet by mouth every 8 (eight) hours as needed for Pain. [facility] Lactobacill us acidoph-pec tin capsule 04-08 09:49: 35 Yes 1{capsu le} Take 1 capsule by mouth in the morning. [facility] loperamide (IMODIUM A-D) 2 mg capsule 04-08 09:49: 35 Yes 2mg Take 1 capsule by mouth every 4 (four) hours as needed for Diarrhea. [facility] HYDROcodone -acetaminop hen 7.5-325 mg per tablet 02-11 11:39: 30 Yes 1{tbl} Take 1 tablet by mouth every 6 (six) hours as needed. [facility] HYDROcodone -acetaminop hen 7.5-325 mg per tablet 02-11 11:39: 30 Yes 1{tbl} Take 1 tablet by mouth every 6 (six) hours as needed. [facility] HYDROcodone -acetaminop hen 7.5-325 mg per tablet 02-11 11:39: 30 Yes 1{tbl} Take 1 tablet by mouth every 6 (six) hours as needed. [facility] HYDROcodone -acetaminop hen 7.5-325 mg per tablet 02-11 11:39: 30 Yes 1{tbl} Take 1 tablet by mouth every 6 (six) hours as needed. [facility] HYDROcodone -acetaminop hen 7.5-325 mg per tablet 02-11 11:39: 30 Yes 1{tbl} Take 1 tablet by mouth every 6 (six) hours as needed. [facility] HYDROcodone -acetaminop hen 7.5-325 mg per tablet 02-11 11:39: 30 Yes 1{tbl} Take 1 tablet by mouth every 6 (six) hours as needed. [facility] HYDROcodone -acetaminop hen 7.5-325 mg per tablet 02-11 11:39: 30 Yes 1{tbl} Take 1 tablet by mouth every 6 (six) hours as needed. [facility] HYDROcodone -acetaminop hen 7.5-325 mg per tablet 02-11 11:39: 30 Yes 1{tbl} Take 1 tablet by mouth every 6 (six) hours as needed. [facility] HYDROcodone -acetaminop hen 7.5-325 mg per tablet 02-11 11:39: 30 Yes 1{tbl} Take 1 tablet by mouth every 6 (six) hours as needed. [facility] HYDROcodone -acetaminop hen 7.5-325 mg per tablet 02-11 11:39: 30 Yes 1{tbl} Take 1 tablet by mouth every 6 (six) hours as needed. [facility] HYDROcodone -acetaminop hen 7.5-325 mg per tablet 02-11 11:39: 30 Yes 1{tbl} Take 1 tablet by mouth every 6 (six) hours as needed. [facility] HYDROcodone -acetaminop hen 7.5-325 mg per tablet 02-11 11:39: 30 Yes 1{tbl} Take 1 tablet by mouth every 6 (six) hours as needed. [facility] HYDROcodone -acetaminop hen 7.5-325 mg per tablet 02-11 11:39: 30 Yes 1{tbl} Take 1 tablet by mouth every 6 (six) hours as needed. [facility] HYDROcodone -acetaminop hen 7.5-325 mg per tablet 02-11 11:39: 30 Yes 1{tbl} Take 1 tablet by mouth every 6 (six) hours as needed. [facility] HYDROcodone -acetaminop hen 7.5-325 mg per tablet 02-11 11:39: 30 Yes 1{tbl} Take 1 tablet by mouth every 6 (six) hours as needed. [facility] HYDROcodone -acetaminop hen 7.5-325 mg per tablet 02-11 11:39: 30 Yes 1{tbl} Take 1 tablet by mouth every 6 (six) hours as needed. [facility] HYDROcodone -acetaminop hen 7.5-325 mg per tablet 02-11 11:39: 30 Yes 1{tbl} Take 1 tablet by mouth every 6 (six) hours as needed. [facility] HYDROcodone -acetaminop hen 7.5-325 mg per tablet 02-11 11:39: 30 Yes 1{tbl} Take 1 tablet by mouth every 6 (six) hours as needed. [facility] HYDROcodone -acetaminop hen 7.5-325 mg per tablet 02-11 11:39: 30 Yes 1{tbl} Take 1 tablet by mouth every 6 (six) hours as needed. [facility] HYDROcodone -acetaminop hen 7.5-325 mg per tablet 02-11 11:39: 30 Yes 1{tbl} Take 1 tablet by mouth every 6 (six) hours as needed. [facility] HYDROcodone -acetaminop hen 7.5-325 mg per tablet 02-11 11:39: 30 Yes 1{tbl} Take 1 tablet by mouth every 6 (six) hours as needed. [facility] HYDROcodone -acetaminop hen 7.5-325 mg per tablet 02-11 11:39: 30 Yes 1{tbl} Take 1 tablet by mouth every 6 (six) hours as needed. [facility] HYDROcodone -acetaminop hen 7.5-325 mg per tablet 02-11 11:39: 30 Yes 1{tbl} Take 1 tablet by mouth every 6 (six) hours as needed. [facility] HYDROcodone -acetaminop hen 7.5-325 mg per tablet 02-11 11:39: 30 Yes 1{tbl} Take 1 tablet by mouth every 6 (six) hours as needed. [facility] HYDROcodone -acetaminop hen 7.5-325 mg per tablet 02-11 11:39: 30 Yes 1{tbl} Take 1 tablet by mouth every 6 (six) hours as needed. [facility] HYDROcodone -acetaminop hen 7.5-325 mg per tablet 02-11 11:39: 30 Yes 1{tbl} Take 1 tablet by mouth every 6 (six) hours as needed. [facility] HYDROcodone -acetaminop hen 7.5-325 mg per tablet 02-11 11:39: 30 Yes 1{tbl} Take 1 tablet by mouth every 6 (six) hours as needed. [facility] HYDROcodone -acetaminop hen 7.5-325 mg per tablet 02-11 11:39: 30 Yes 1{tbl} Take 1 tablet by mouth every 6 (six) hours as needed. [facility] cetirizine 10 mg tablet 02-09 12:02: 37 Yes 10mg Take 10 mg by mouth daily. [facility] propranoloL 40 mg tablet 02-09 12:02: 37 Yes 40mg Take 40 mg by mouth 3 (three) times daily. [facility] pyridoxine, VITAMIN B-6, 25 mg tablet 02-09 12:02: 37 Yes 25mg Take 25 mg by mouth daily. [facility] acetaminoph en 650 mg CR tablet 02-09 12:02: 37 Yes 650mg Take 650 mg by mouth every 8 (eight) hours as needed for Pain. [facility] docusate 100 mg capsule 02-09 12:02: 37 Yes 100mg Take 100 mg by mouth daily. [facility] HYDROcodone -acetaminop hen 5-325 mg tablet 02-09 12:02: 37 Yes 1{tbl} Take 1 tablet by mouth every 6 (six) hours as needed. [facility] polyethylen e glycol 3350 (MIRALAX ORAL) 02-09 12:02: 37 Yes Take by mouth. [facility] furosemide 20 mg tablet 02-09 12:02: 37 Yes 20mg Take 20 mg by mouth in the morning. [facility] famotidine 40 mg tablet 02-09 12:02: 37 Yes 40mg Take 40 mg by mouth in the morning. [facility] DILTIAZEM HCL ORAL 02-09 12:02: 37 Yes 120mg Take 120 mg by mouth every 8 (eight) hours. [facility] cetirizine 10 mg tablet 02-09 12:02: 37 Yes 10mg Take 10 mg by mouth daily. [facility] propranoloL 40 mg tablet 02-09 12:02: 37 Yes 40mg Take 40 mg by mouth 3 (three) times daily. [facility] pyridoxine, VITAMIN B-6, 25 mg tablet 02-09 12:02: 37 Yes 25mg Take 25 mg by mouth daily. [facility] acetaminoph en 650 mg CR tablet 02-09 12:02: 37 Yes 650mg Take 650 mg by mouth every 8 (eight) hours as needed for Pain. [facility] docusate 100 mg capsule 02-09 12:02: 37 Yes 100mg Take 100 mg by mouth daily. [facility] HYDROcodone -acetaminop hen 5-325 mg tablet 02-09 12:02: 37 Yes 1{tbl} Take 1 tablet by mouth every 6 (six) hours as needed. [facility] polyethylen e glycol 3350 (MIRALAX ORAL) 02-09 12:02: 37 Yes Take by mouth. [facility] furosemide 20 mg tablet 02-09 12:02: 37 Yes 20mg Take 20 mg by mouth in the morning. [facility] famotidine 40 mg tablet 02-09 12:02: 37 Yes 40mg Take 40 mg by mouth in the morning. [facility] DILTIAZEM HCL ORAL 02-09 12:02: 37 Yes 120mg Take 120 mg by mouth every 8 (eight) hours. [facility] cetirizine 10 mg tablet 02-09 12:02: 37 Yes 10mg Take 10 mg by mouth daily. [facility] propranoloL 40 mg tablet 02-09 12:02: 37 Yes 40mg Take 40 mg by mouth 3 (three) times daily. [facility] pyridoxine, VITAMIN B-6, 25 mg tablet 02-09 12:02: 37 Yes 25mg Take 25 mg by mouth daily. [facility] acetaminoph en 650 mg CR tablet 02-09 12:02: 37 Yes 650mg Take 650 mg by mouth every 8 (eight) hours as needed for Pain. [facility] docusate 100 mg capsule 02-09 12:02: 37 Yes 100mg Take 100 mg by mouth daily. [facility] polyethylen e glycol 3350 (MIRALAX ORAL) 02-09 12:02: 37 Yes Take by mouth. [facility] furosemide 20 mg tablet 02-09 12:02: 37 Yes 20mg Take 20 mg by mouth in the morning. [facility] famotidine 40 mg tablet 02-09 12:02: 37 Yes 40mg Take 40 mg by mouth in the morning. [facility] DILTIAZEM HCL ORAL 02-09 12:02: 37 Yes 120mg Take 120 mg by mouth every 8 (eight) hours. [facility] cetirizine 10 mg tablet 02-09 12:02: 37 Yes 10mg Take 10 mg by mouth daily. [facility] propranoloL 40 mg tablet 02-09 12:02: 37 Yes 40mg Take 40 mg by mouth 3 (three) times daily. [facility] pyridoxine, VITAMIN B-6, 25 mg tablet 02-09 12:02: 37 Yes 25mg Take 25 mg by mouth daily. [facility] acetaminoph en 650 mg CR tablet 02-09 12:02: 37 Yes 650mg Take 650 mg by mouth every 8 (eight) hours as needed for Pain. [facility] docusate 100 mg capsule 02-09 12:02: 37 Yes 100mg Take 100 mg by mouth daily. [facility] polyethylen e glycol 3350 (MIRALAX ORAL) 02-09 12:02: 37 Yes Take by mouth. [facility] furosemide 20 mg tablet 02-09 12:02: 37 Yes 20mg Take 20 mg by mouth in the morning. [facility] famotidine 40 mg tablet 02-09 12:02: 37 Yes 40mg Take 40 mg by mouth in the morning. [facility] DILTIAZEM HCL ORAL 02-09 12:02: 37 Yes 120mg Take 120 mg by mouth every 8 (eight) hours. [facility] cetirizine 10 mg tablet 02-09 12:02: 37 Yes 10mg Take 10 mg by mouth daily. [facility] propranoloL 40 mg tablet 02-09 12:02: 37 Yes 40mg Take 40 mg by mouth 3 (three) times daily. [facility] pyridoxine, VITAMIN B-6, 25 mg tablet 02-09 12:02: 37 Yes 25mg Take 25 mg by mouth daily. [facility] docusate 100 mg capsule 02-09 12:02: 37 Yes 100mg Take 100 mg by mouth daily. [facility] polyethylen e glycol 3350 (MIRALAX ORAL) 02-09 12:02: 37 Yes Take by mouth. [facility] furosemide 20 mg tablet 02-09 12:02: 37 Yes 20mg Take 20 mg by mouth in the morning. [facility] famotidine 40 mg tablet 02-09 12:02: 37 Yes 40mg Take 40 mg by mouth in the morning. [facility] DILTIAZEM HCL ORAL 02-09 12:02: 37 Yes 120mg Take 120 mg by mouth every 8 (eight) hours. [facility] cetirizine 10 mg tablet 02-09 12:02: 37 Yes 10mg Take 10 mg by mouth daily. [facility] propranoloL 40 mg tablet 02-09 12:02: 37 Yes 40mg Take 40 mg by mouth 3 (three) times daily. [facility] pyridoxine, VITAMIN B-6, 25 mg tablet 02-09 12:02: 37 Yes 25mg Take 25 mg by mouth daily. [facility] docusate 100 mg capsule 02-09 12:02: 37 Yes 100mg Take 100 mg by mouth daily. [facility] polyethylen e glycol 3350 (MIRALAX ORAL) 02-09 12:02: 37 Yes Take by mouth. [facility] furosemide 20 mg tablet 02-09 12:02: 37 Yes 20mg Take 20 mg by mouth in the morning. [facility] famotidine 40 mg tablet 02-09 12:02: 37 Yes 40mg Take 40 mg by mouth in the morning. [facility] DILTIAZEM HCL ORAL 02-09 12:02: 37 Yes 120mg Take 120 mg by mouth every 8 (eight) hours. [facility] cetirizine 10 mg tablet 02-09 12:02: 37 Yes 10mg Take 10 mg by mouth daily. [facility] propranoloL 40 mg tablet 02-09 12:02: 37 Yes 40mg Take 40 mg by mouth 3 (three) times daily. [facility] pyridoxine, VITAMIN B-6, 25 mg tablet 02-09 12:02: 37 Yes 25mg Take 25 mg by mouth daily. [facility] docusate 100 mg capsule 02-09 12:02: 37 Yes 100mg Take 100 mg by mouth daily. [facility] polyethylen e glycol 3350 (MIRALAX ORAL) 02-09 12:02: 37 Yes Take by mouth. [facility] furosemide 20 mg tablet 02-09 12:02: 37 Yes 20mg Take 20 mg by mouth in the morning. [facility] famotidine 40 mg tablet 02-09 12:02: 37 Yes 40mg Take 40 mg by mouth in the morning. [facility] DILTIAZEM HCL ORAL 02-09 12:02: 37 Yes 120mg Take 120 mg by mouth every 8 (eight) hours. [facility] propranoloL 40 mg tablet 02-09 12:02: 37 Yes 40mg Take 40 mg by mouth 3 (three) times daily. [facility] pyridoxine, VITAMIN B-6, 25 mg tablet 02-09 12:02: 37 Yes 25mg Take 25 mg by mouth daily. [facility] docusate 100 mg capsule 02-09 12:02: 37 Yes 100mg Take 100 mg by mouth daily. [facility] polyethylen e glycol 3350 (MIRALAX ORAL) 02-09 12:02: 37 Yes Take by mouth. [facility] furosemide 20 mg tablet 02-09 12:02: 37 Yes 20mg Take 20 mg by mouth in the morning. [facility] famotidine 40 mg tablet 02-09 12:02: 37 Yes 40mg Take 40 mg by mouth in the morning. [facility] DILTIAZEM HCL ORAL 02-09 12:02: 37 Yes 120mg Take 120 mg by mouth every 8 (eight) hours. [facility] propranoloL 40 mg tablet 02-09 12:02: 37 Yes 40mg Take 40 mg by mouth 3 (three) times daily. [facility] docusate 100 mg capsule 02-09 12:02: 37 Yes 100mg Take 100 mg by mouth daily. [facility] polyethylen e glycol 3350 (MIRALAX ORAL) 02-09 12:02: 37 Yes Take by mouth. [facility] furosemide 20 mg tablet 02-09 12:02: 37 Yes 20mg Take 20 mg by mouth in the morning. [facility] famotidine 40 mg tablet 02-09 12:02: 37 Yes 40mg Take 40 mg by mouth in the morning. [facility] DILTIAZEM HCL ORAL 02-09 12:02: 37 Yes 120mg Take 120 mg by mouth every 8 (eight) hours. [facility] propranoloL 40 mg tablet 02-09 12:02: 37 Yes 40mg Take 40 mg by mouth 3 (three) times daily. [facility] docusate 100 mg capsule 02-09 12:02: 37 Yes 100mg Take 100 mg by mouth daily. [facility] polyethylen e glycol 3350 (MIRALAX ORAL) 02-09 12:02: 37 Yes Take by mouth. [facility] furosemide 20 mg tablet 02-09 12:02: 37 Yes 20mg Take 20 mg by mouth in the morning. [facility] famotidine 40 mg tablet 02-09 12:02: 37 Yes 40mg Take 40 mg by mouth in the morning. [facility] DILTIAZEM HCL ORAL 02-09 12:02: 37 Yes 120mg Take 120 mg by mouth every 8 (eight) hours. [facility] propranoloL 40 mg tablet 02-09 12:02: 37 Yes 40mg Take 40 mg by mouth 3 (three) times daily. [facility] docusate 100 mg capsule 02-09 12:02: 37 Yes 100mg Take 100 mg by mouth daily. [facility] polyethylen e glycol 3350 (MIRALAX ORAL) 02-09 12:02: 37 Yes Take by mouth. [facility] furosemide 20 mg tablet 02-09 12:02: 37 Yes 20mg Take 20 mg by mouth in the morning. [facility] famotidine 40 mg tablet 02-09 12:02: 37 Yes 40mg Take 40 mg by mouth in the morning. [facility] DILTIAZEM HCL ORAL 02-09 12:02: 37 Yes 120mg Take 120 mg by mouth every 8 (eight) hours. [facility] propranoloL 40 mg tablet 02-09 12:02: 37 Yes 40mg Take 40 mg by mouth 3 (three) times daily. [facility] docusate 100 mg capsule 02-09 12:02: 37 Yes 100mg Take 100 mg by mouth daily. [facility] polyethylen e glycol 3350 (MIRALAX ORAL) 02-09 12:02: 37 Yes Take by mouth. [facility] furosemide 20 mg tablet 02-09 12:02: 37 Yes 20mg Take 20 mg by mouth in the morning. [facility] famotidine 40 mg tablet 02-09 12:02: 37 Yes 40mg Take 40 mg by mouth in the morning. [facility] DILTIAZEM HCL ORAL 02-09 12:02: 37 Yes 120mg Take 120 mg by mouth every 8 (eight) hours. [facility] propranoloL 40 mg tablet 02-09 12:02: 37 Yes 40mg Take 40 mg by mouth 3 (three) times daily. [facility] docusate 100 mg capsule 02-09 12:02: 37 Yes 100mg Take 100 mg by mouth daily. [facility] polyethylen e glycol 3350 (MIRALAX ORAL) 02-09 12:02: 37 Yes Take by mouth. [facility] furosemide 20 mg tablet 02-09 12:02: 37 Yes 20mg Take 20 mg by mouth in the morning. [facility] famotidine 40 mg tablet 02-09 12:02: 37 Yes 40mg Take 40 mg by mouth in the morning. [facility] DILTIAZEM HCL ORAL 02-09 12:02: 37 Yes 120mg Take 120 mg by mouth every 8 (eight) hours. [facility] propranoloL 40 mg tablet 02-09 12:02: 37 Yes 40mg Take 40 mg by mouth 3 (three) times daily. [facility] docusate 100 mg capsule 02-09 12:02: 37 Yes 100mg Take 100 mg by mouth daily. [facility] polyethylen e glycol 3350 (MIRALAX ORAL) 02-09 12:02: 37 Yes Take by mouth. [facility] furosemide 20 mg tablet 02-09 12:02: 37 Yes 20mg Take 20 mg by mouth in the morning. [facility] famotidine 40 mg tablet 02-09 12:02: 37 Yes 40mg Take 40 mg by mouth in the morning. [facility] DILTIAZEM HCL ORAL 02-09 12:02: 37 Yes 120mg Take 120 mg by mouth every 8 (eight) hours. [facility] propranoloL 40 mg tablet 02-09 12:02: 37 Yes 40mg Take 40 mg by mouth 3 (three) times daily. [facility] docusate 100 mg capsule 02-09 12:02: 37 Yes 100mg Take 100 mg by mouth daily. [facility] polyethylen e glycol 3350 (MIRALAX ORAL) 02-09 12:02: 37 Yes Take by mouth. [facility] furosemide 20 mg tablet 02-09 12:02: 37 Yes 20mg Take 20 mg by mouth in the morning. [facility] famotidine 40 mg tablet 02-09 12:02: 37 Yes 40mg Take 40 mg by mouth in the morning. [facility] DILTIAZEM HCL ORAL 02-09 12:02: 37 Yes 120mg Take 120 mg by mouth every 8 (eight) hours. [facility] propranoloL 40 mg tablet 02-09 12:02: 37 Yes 40mg Take 40 mg by mouth 3 (three) times daily. [facility] docusate 100 mg capsule 02-09 12:02: 37 Yes 100mg Take 100 mg by mouth daily. [facility] polyethylen e glycol 3350 (MIRALAX ORAL) 02-09 12:02: 37 Yes Take by mouth. [facility] furosemide 20 mg tablet 02-09 12:02: 37 Yes 20mg Take 20 mg by mouth in the morning. [facility] famotidine 40 mg tablet 02-09 12:02: 37 Yes 40mg Take 40 mg by mouth in the morning. [facility] DILTIAZEM HCL ORAL 02-09 12:02: 37 Yes 120mg Take 120 mg by mouth every 8 (eight) hours. [facility] propranoloL 40 mg tablet 02-09 12:02: 37 Yes 40mg Take 40 mg by mouth 3 (three) times daily. [facility] docusate 100 mg capsule 02-09 12:02: 37 Yes 100mg Take 100 mg by mouth daily. [facility] polyethylen e glycol 3350 (MIRALAX ORAL) 02-09 12:02: 37 Yes Take by mouth. [facility] furosemide 20 mg tablet 02-09 12:02: 37 Yes 20mg Take 20 mg by mouth in the morning. [facility] famotidine 40 mg tablet 02-09 12:02: 37 Yes 40mg Take 40 mg by mouth in the morning. [facility] DILTIAZEM HCL ORAL 02-09 12:02: 37 Yes 120mg Take 120 mg by mouth every 8 (eight) hours. [facility] propranoloL 40 mg tablet 02-09 12:02: 37 Yes 40mg Take 40 mg by mouth 3 (three) times daily. [facility] docusate 100 mg capsule 02-09 12:02: 37 Yes 100mg Take 100 mg by mouth daily. [facility] polyethylen e glycol 3350 (MIRALAX ORAL) 02-09 12:02: 37 Yes Take by mouth. [facility] furosemide 20 mg tablet 02-09 12:02: 37 Yes 20mg Take 20 mg by mouth in the morning. [facility] famotidine 40 mg tablet 02-09 12:02: 37 Yes 40mg Take 40 mg by mouth in the morning. [facility] DILTIAZEM HCL ORAL 02-09 12:02: 37 Yes 120mg Take 120 mg by mouth every 8 (eight) hours. [facility] propranoloL 40 mg tablet 02-09 12:02: 37 Yes 40mg Take 40 mg by mouth 3 (three) times daily. [facility] docusate 100 mg capsule 02-09 12:02: 37 Yes 100mg Take 100 mg by mouth daily. [facility] polyethylen e glycol 3350 (MIRALAX ORAL) 02-09 12:02: 37 Yes Take by mouth. [facility] furosemide 20 mg tablet 02-09 12:02: 37 Yes 20mg Take 20 mg by mouth in the morning. [facility] famotidine 40 mg tablet 02-09 12:02: 37 Yes 40mg Take 40 mg by mouth in the morning. [facility] DILTIAZEM HCL ORAL 02-09 12:02: 37 Yes 120mg Take 120 mg by mouth every 8 (eight) hours. [facility] propranoloL 40 mg tablet 02-09 12:02: 37 Yes 40mg Take 40 mg by mouth 3 (three) times daily. [facility] docusate 100 mg capsule 02-09 12:02: 37 Yes 100mg Take 100 mg by mouth daily. [facility] polyethylen e glycol 3350 (MIRALAX ORAL) 02-09 12:02: 37 Yes Take by mouth. [facility] furosemide 20 mg tablet 0 02-09 12:02: 37 Yes 20mg Take 20 mg by mouth in the morning. [facility] famotidine 40 mg tablet 02-09 12:02: 37 Yes 40mg Take 40 mg by mouth in the morning. [facility] DILTIAZEM HCL ORAL 02-09 12:02: 37 Yes 120mg Take 120 mg by mouth every 8 (eight) hours. [facility] propranoloL 40 mg tablet 02-09 12:02: 37 Yes 40mg Take 40 mg by mouth 3 (three) times daily. [facility] docusate 100 mg capsule 02-09 12:02: 37 Yes 100mg Take 100 mg by mouth daily. [facility] polyethylen e glycol 3350 (MIRALAX ORAL) 02-09 12:02: 37 Yes Take by mouth. [facility] furosemide 20 mg tablet 02-09 12:02: 37 Yes 20mg Take 20 mg by mouth in the morning. [facility] famotidine 40 mg tablet 02-09 12:02: 37 Yes 40mg Take 40 mg by mouth in the morning. [facility] DILTIAZEM HCL ORAL 02-09 12:02: 37 Yes 120mg Take 120 mg by mouth every 8 (eight) hours. [facility] propranoloL 40 mg tablet 02-09 12:02: 37 Yes 40mg Take 40 mg by mouth 3 (three) times daily. [facility] docusate 100 mg capsule 02-09 12:02: 37 Yes 100mg Take 100 mg by mouth daily. [facility] polyethylen e glycol 3350 (MIRALAX ORAL) 02-09 12:02: 37 Yes Take by mouth. [facility] furosemide 20 mg tablet 02-09 12:02: 37 Yes 20mg Take 20 mg by mouth in the morning. [facility] famotidine 40 mg tablet 02-09 12:02: 37 Yes 40mg Take 40 mg by mouth in the morning. [facility] DILTIAZEM HCL ORAL 02-09 12:02: 37 Yes 120mg Take 120 mg by mouth every 8 (eight) hours. [facility] propranoloL 40 mg tablet 02-09 12:02: 37 Yes 40mg Take 40 mg by mouth 3 (three) times daily. [facility] docusate 100 mg capsule 02-09 12:02: 37 Yes 100mg Take 100 mg by mouth daily. [facility] polyethylen e glycol 3350 (MIRALAX ORAL) 02-09 12:02: 37 Yes Take by mouth. [facility] furosemide 20 mg tablet 02-09 12:02: 37 Yes 20mg Take 20 mg by mouth in the morning. [facility] famotidine 40 mg tablet 02-09 12:02: 37 Yes 40mg Take 40 mg by mouth in the morning. [facility] DILTIAZEM HCL ORAL 02-09 12:02: 37 Yes 120mg Take 120 mg by mouth every 8 (eight) hours. [facility] propranoloL 40 mg tablet 02-09 12:02: 37 Yes 40mg Take 40 mg by mouth 3 (three) times daily. [facility] docusate 100 mg capsule 02-09 12:02: 37 Yes 100mg Take 100 mg by mouth daily. [facility] polyethylen e glycol 3350 (MIRALAX ORAL) 02-09 12:02: 37 Yes Take by mouth. [facility] furosemide 20 mg tablet 02-09 12:02: 37 Yes 20mg Take 20 mg by mouth in the morning. [facility] famotidine 40 mg tablet 02-09 12:02: 37 Yes 40mg Take 40 mg by mouth in the morning. [facility] DILTIAZEM HCL ORAL 02-09 12:02: 37 Yes 120mg Take 120 mg by mouth every 8 (eight) hours. [facility] propranoloL 40 mg tablet 0 02-09 12:02: 37 Yes 40mg Take 40 mg by mouth 3 (three) times daily. [facility] docusate 100 mg capsule 02-09 12:02: 37 Yes 100mg Take 100 mg by mouth daily. [facility] polyethylen e glycol 3350 (MIRALAX ORAL) 02-09 12:02: 37 Yes Take by mouth. [facility] furosemide 20 mg tablet 02-09 12:02: 37 Yes 20mg Take 20 mg by mouth in the morning. [facility] famotidine 40 mg tablet 02-09 12:02: 37 Yes 40mg Take 40 mg by mouth in the morning. [facility] DILTIAZEM HCL ORAL 02-09 12:02: 37 Yes 120mg Take 120 mg by mouth every 8 (eight) hours. [facility] propranoloL 40 mg tablet 02-09 12:02: 37 Yes 40mg Take 40 mg by mouth 3 (three) times daily. [facility] docusate 100 mg capsule 02-09 12:02: 37 Yes 100mg Take 100 mg by mouth daily. [facility] polyethylen e glycol 3350 (MIRALAX ORAL) 02-09 12:02: 37 Yes Take by mouth. [facility] furosemide 20 mg tablet 02-09 12:02: 37 Yes 20mg Take 20 mg by mouth in the morning. [facility] famotidine 40 mg tablet 02-09 12:02: 37 Yes 40mg Take 40 mg by mouth in the morning. [facility] DILTIAZEM HCL ORAL 02-09 12:02: 37 Yes 120mg Take 120 mg by mouth every 8 (eight) hours. [facility] propranoloL 40 mg tablet 02-09 12:02: 37 Yes 40mg Take 40 mg by mouth 3 (three) times daily. [facility] docusate 100 mg capsule 02-09 12:02: 37 Yes 100mg Take 100 mg by mouth daily. [facility] polyethylen e glycol 3350 (MIRALAX ORAL) 02-09 12:02: 37 Yes Take by mouth. [facility] furosemide 20 mg tablet 02-09 12:02: 37 Yes 20mg Take 20 mg by mouth in the morning. [facility] famotidine 40 mg tablet 02-09 12:02: 37 Yes 40mg Take 40 mg by mouth in the morning. [facility] DILTIAZEM HCL ORAL 02-09 12:02: 37 Yes 120mg Take 120 mg by mouth every 8 (eight) hours. [facility] propranoloL 40 mg tablet 02-09 12:02: 37 Yes 40mg Take 40 mg by mouth 3 (three) times daily. [facility] docusate 100 mg capsule 02-09 12:02: 37 Yes 100mg Take 100 mg by mouth daily. [facility] polyethylen e glycol 3350 (MIRALAX ORAL) 02-09 12:02: 37 Yes Take by mouth. [facility] furosemide 20 mg tablet 02-09 12:02: 37 Yes 20mg Take 20 mg by mouth in the morning. [facility] famotidine 40 mg tablet 02-09 12:02: 37 Yes 40mg Take 40 mg by mouth in the morning. [facility] DILTIAZEM HCL ORAL 02-09 12:02: 37 Yes 120mg Take 120 mg by mouth every 8 (eight) hours. [facility] propranoloL 40 mg tablet 02-09 12:02: 37 Yes 40mg Take 40 mg by mouth 3 (three) times daily. [facility] docusate 100 mg capsule 02-09 12:02: 37 Yes 100mg Take 100 mg by mouth daily. [facility] polyethylen e glycol 3350 (MIRALAX ORAL) 02-09 12:02: 37 Yes Take by mouth. [facility] furosemide 20 mg tablet 02-09 12:02: 37 Yes 20mg Take 20 mg by mouth in the morning. [facility] famotidine 40 mg tablet 02-09 12:02: 37 Yes 40mg Take 40 mg by mouth in the morning. [facility] DILTIAZEM HCL ORAL 02-09 12:02: 37 Yes 120mg Take 120 mg by mouth every 8 (eight) hours. [facility] propranoloL 40 mg tablet 02-09 12:02: 37 Yes 40mg Take 40 mg by mouth 3 (three) times daily. [facility] docusate 100 mg capsule 02-09 12:02: 37 Yes 100mg Take 100 mg by mouth daily. [facility] polyethylen e glycol 3350 (MIRALAX ORAL) 02-09 12:02: 37 Yes Take by mouth. [facility] furosemide 20 mg tablet 02-09 12:02: 37 Yes 20mg Take 20 mg by mouth in the morning. [facility] famotidine 40 mg tablet 02-09 12:02: 37 Yes 40mg Take 40 mg by mouth in the morning. [facility] DILTIAZEM HCL ORAL 02-09 12:02: 37 Yes 120mg Take 120 mg by mouth every 8 (eight) hours. [facility] propranoloL 40 mg tablet 02-09 12:02: 37 Yes 40mg Take 40 mg by mouth 3 (three) times daily. [facility] docusate 100 mg capsule 02-09 12:02: 37 Yes 100mg Take 100 mg by mouth daily. [facility] polyethylen e glycol 3350 (MIRALAX ORAL) 02-09 12:02: 37 Yes Take by mouth. [facility] furosemide 20 mg tablet 02-09 12:02: 37 Yes 20mg Take 20 mg by mouth in the morning. [facility] famotidine 40 mg tablet 02-09 12:02: 37 Yes 40mg Take 40 mg by mouth in the morning. [facility] DILTIAZEM HCL ORAL 02-09 12:02: 37 Yes 120mg Take 120 mg by mouth every 8 (eight) hours. [facility] propranoloL 40 mg tablet 02-09 12:02: 37 Yes 40mg Take 40 mg by mouth 3 (three) times daily. [facility] docusate 100 mg capsule 02-09 12:02: 37 Yes 100mg Take 100 mg by mouth daily. [facility] polyethylen e glycol 3350 (MIRALAX ORAL) 02-09 12:02: 37 Yes Take by mouth. [facility] furosemide 20 mg tablet 02-09 12:02: 37 Yes 20mg Take 20 mg by mouth in the morning. [facility] famotidine 40 mg tablet 02-09 12:02: 37 Yes 40mg Take 40 mg by mouth in the morning. [facility] DILTIAZEM HCL ORAL 02-09 12:02: 37 Yes 120mg Take 120 mg by mouth every 8 (eight) hours. [facility] propranoloL 40 mg tablet 02-09 12:02: 37 Yes 40mg Take 40 mg by mouth 3 (three) times daily. [facility] docusate 100 mg capsule 02-09 12:02: 37 Yes 100mg Take 100 mg by mouth daily. [facility] polyethylen e glycol 3350 (MIRALAX ORAL) 02-09 12:02: 37 Yes Take by mouth. [facility] furosemide 20 mg tablet 02-09 12:02: 37 Yes 20mg Take 20 mg by mouth in the morning. [facility] famotidine 40 mg tablet 02-09 12:02: 37 Yes 40mg Take 40 mg by mouth in the morning. [facility] DILTIAZEM HCL ORAL 02-09 12:02: 37 Yes 120mg Take 120 mg by mouth every 8 (eight) hours. [facility] propranoloL 40 mg tablet 02-09 12:02: 37 Yes 40mg Take 40 mg by mouth 3 (three) times daily. [facility] docusate 100 mg capsule 02-09 12:02: 37 Yes 100mg Take 100 mg by mouth daily. [facility] polyethylen e glycol 3350 (MIRALAX ORAL) 02-09 12:02: 37 Yes Take by mouth. [facility] furosemide 20 mg tablet 02-09 12:02: 37 Yes 20mg Take 20 mg by mouth in the morning. [facility] famotidine 40 mg tablet 02-09 12:02: 37 Yes 40mg Take 40 mg by mouth in the morning. [facility] DILTIAZEM HCL ORAL 02-09 12:02: 37 Yes 120mg Take 120 mg by mouth every 8 (eight) hours. [facility] propranoloL 40 mg tablet 02-09 12:02: 37 Yes 40mg Take 40 mg by mouth 3 (three) times daily. [facility] docusate 100 mg capsule 02-09 12:02: 37 Yes 100mg Take 100 mg by mouth daily. [facility] polyethylen e glycol 3350 (MIRALAX ORAL) 02-09 12:02: 37 Yes Take by mouth. [facility] furosemide 20 mg tablet 02-09 12:02: 37 Yes 20mg Take 20 mg by mouth in the morning. [facility] famotidine 40 mg tablet 02-09 12:02: 37 Yes 40mg Take 40 mg by mouth in the morning. [facility] DILTIAZEM HCL ORAL 02-09 12:02: 37 Yes 120mg Take 120 mg by mouth every 8 (eight) hours. [facility] propranoloL 40 mg tablet 02-09 12:02: 37 Yes 40mg Take 40 mg by mouth 3 (three) times daily. [facility] docusate 100 mg capsule 02-09 12:02: 37 Yes 100mg Take 100 mg by mouth daily. [facility] polyethylen e glycol 3350 (MIRALAX ORAL) 02-09 12:02: 37 Yes Take by mouth. [facility] furosemide 20 mg tablet 02-09 12:02: 37 Yes 20mg Take 20 mg by mouth in the morning. [facility] famotidine 40 mg tablet 02-09 12:02: 37 Yes 40mg Take 40 mg by mouth in the morning. [facility] DILTIAZEM HCL ORAL 02-09 12:02: 37 Yes 120mg Take 120 mg by mouth every 8 (eight) hours. [facility] propranoloL 40 mg tablet 02-09 12:02: 37 Yes 40mg Take 40 mg by mouth 3 (three) times daily. [facility] docusate 100 mg capsule 02-09 12:02: 37 Yes 100mg Take 100 mg by mouth daily. [facility] polyethylen e glycol 3350 (MIRALAX ORAL) 02-09 12:02: 37 Yes Take by mouth. [facility] furosemide 20 mg tablet 02-09 12:02: 37 Yes 20mg Take 20 mg by mouth in the morning. [facility] famotidine 40 mg tablet 02-09 12:02: 37 Yes 40mg Take 40 mg by mouth in the morning. [facility] DILTIAZEM HCL ORAL 02-09 12:02: 37 Yes 120mg Take 120 mg by mouth every 8 (eight) hours. [facility] propranoloL 40 mg tablet 02-09 12:02: 37 Yes 40mg Take 40 mg by mouth 3 (three) times daily. [facility] docusate 100 mg capsule 02-09 12:02: 37 Yes 100mg Take 100 mg by mouth daily. [facility] polyethylen e glycol 3350 (MIRALAX ORAL) 02-09 12:02: 37 Yes Take by mouth. [facility] furosemide 20 mg tablet 02-09 12:02: 37 Yes 20mg Take 20 mg by mouth in the morning. [facility] famotidine 40 mg tablet 02-09 12:02: 37 Yes 40mg Take 40 mg by mouth in the morning. [facility] DILTIAZEM HCL ORAL 02-09 12:02: 37 Yes 120mg Take 120 mg by mouth every 8 (eight) hours. [facility] propranoloL 40 mg tablet 02-09 12:02: 37 Yes 40mg Take 40 mg by mouth 3 (three) times daily. [facility] docusate 100 mg capsule 02-09 12:02: 37 Yes 100mg Take 100 mg by mouth daily. [facility] polyethylen e glycol 3350 (MIRALAX ORAL) 02-09 12:02: 37 Yes Take by mouth. [facility] furosemide 20 mg tablet 02-09 12:02: 37 Yes 20mg Take 20 mg by mouth in the morning. [facility] famotidine 40 mg tablet 02-09 12:02: 37 Yes 40mg Take 40 mg by mouth in the morning. [facility] DILTIAZEM HCL ORAL 02-09 12:02: 37 Yes 120mg Take 120 mg by mouth every 8 (eight) hours. [facility] propranoloL 40 mg tablet 02-09 12:02: 37 Yes 40mg Take 40 mg by mouth 3 (three) times daily. [facility] docusate 100 mg capsule 02-09 12:02: 37 Yes 100mg Take 100 mg by mouth daily. [facility] polyethylen e glycol 3350 (MIRALAX ORAL) 02-09 12:02: 37 Yes Take by mouth. [facility] propranoloL 40 mg tablet 02-09 12:02: 37 Yes 40mg Take 40 mg by mouth 3 (three) times daily. [facility] docusate 100 mg capsule 02-09 12:02: 37 Yes 100mg Take 100 mg by mouth daily. [facility] polyethylen e glycol 3350 (MIRALAX ORAL) 02-09 12:02: 37 Yes Take by mouth. [facility] docusate 100 mg capsule 02-09 12:02: 37 Yes 100mg Take 100 mg by mouth daily. [facility] polyethylen e glycol 3350 (MIRALAX ORAL) 02-09 12:02: 37 Yes Take by mouth. [facility] furosemide 20 mg tablet 02-09 12:02: 37 Yes 20mg Take 20 mg by mouth in the morning. [facility] famotidine 40 mg tablet 02-09 12:02: 37 Yes 40mg Take 40 mg by mouth in the morning. [facility] DILTIAZEM HCL ORAL 02-09 12:02: 37 Yes 120mg Take 120 mg by mouth every 8 (eight) hours. [facility] docusate 100 mg capsule 02-09 12:02: 37 Yes 100mg Take 100 mg by mouth daily. [facility] polyethylen e glycol 3350 (MIRALAX ORAL) 02-09 12:02: 37 Yes Take by mouth. [facility] furosemide 20 mg tablet 02-09 12:02: 37 Yes 20mg Take 20 mg by mouth in the morning. [facility] famotidine 40 mg tablet 02-09 12:02: 37 Yes 40mg Take 40 mg by mouth in the morning. [facility] DILTIAZEM HCL ORAL 02-09 12:02: 37 Yes 120mg Take 120 mg by mouth every 8 (eight) hours. [facility] docusate 100 mg capsule 02-09 12:02: 37 Yes 100mg Take 100 mg by mouth daily. [facility] polyethylen e glycol 3350 (MIRALAX ORAL) 02-09 12:02: 37 Yes Take by mouth. [facility] furosemide 20 mg tablet 02-09 12:02: 37 Yes 20mg Take 20 mg by mouth in the morning. [facility] famotidine 40 mg tablet 02-09 12:02: 37 Yes 40mg Take 40 mg by mouth in the morning. [facility] DILTIAZEM HCL ORAL 02-09 12:02: 37 Yes 120mg Take 120 mg by mouth every 8 (eight) hours. [facility] docusate 100 mg capsule 02-09 12:02: 37 Yes 100mg Take 100 mg by mouth daily. [facility] polyethylen e glycol 3350 (MIRALAX ORAL) 02-09 12:02: 37 Yes Take by mouth. [facility] furosemide 20 mg tablet 02-09 12:02: 37 Yes 20mg Take 20 mg by mouth in the morning. [facility] famotidine 40 mg tablet 02-09 12:02: 37 Yes 40mg Take 40 mg by mouth in the morning. [facility] DILTIAZEM HCL ORAL 02-09 12:02: 37 Yes 120mg Take 120 mg by mouth every 8 (eight) hours. [facility] docusate 100 mg capsule 02-09 12:02: 37 Yes 100mg Take 100 mg by mouth daily. [facility] polyethylen e glycol 3350 (MIRALAX ORAL) 02-09 12:02: 37 Yes Take by mouth. [facility] furosemide 20 mg tablet 02-09 12:02: 37 Yes 20mg Take 20 mg by mouth in the morning. [facility] famotidine 40 mg tablet 02-09 12:02: 37 Yes 40mg Take 40 mg by mouth in the morning. [facility] DILTIAZEM HCL ORAL 02-09 12:02: 37 Yes 120mg Take 120 mg by mouth every 8 (eight) hours. [facility] docusate 100 mg capsule 02-09 12:02: 37 Yes 100mg Take 100 mg by mouth daily. [facility] polyethylen e glycol 3350 (MIRALAX ORAL) 02-09 12:02: 37 Yes Take by mouth. [facility] furosemide 20 mg tablet 02-09 12:02: 37 Yes 20mg Take 20 mg by mouth in the morning. [facility] famotidine 40 mg tablet 02-09 12:02: 37 Yes 40mg Take 40 mg by mouth in the morning. [facility] DILTIAZEM HCL ORAL 02-09 12:02: 37 Yes 120mg Take 120 mg by mouth every 8 (eight) hours. [facility] docusate 100 mg capsule 02-09 12:02: 37 Yes 100mg Take 100 mg by mouth daily. [facility] polyethylen e glycol 3350 (MIRALAX ORAL) 02-09 12:02: 37 Yes Take by mouth. [facility] furosemide 20 mg tablet 02-09 12:02: 37 Yes 20mg Take 20 mg by mouth in the morning. [facility] famotidine 40 mg tablet 02-09 12:02: 37 Yes 40mg Take 40 mg by mouth in the morning. [facility] DILTIAZEM HCL ORAL 02-09 12:02: 37 Yes 120mg Take 120 mg by mouth every 8 (eight) hours. [facility] docusate 100 mg capsule 02-09 12:02: 37 Yes 100mg Take 100 mg by mouth daily. [facility] polyethylen e glycol 3350 (MIRALAX ORAL) 02-09 12:02: 37 Yes Take by mouth. [facility] furosemide 20 mg tablet 02-09 12:02: 37 Yes 20mg Take 20 mg by mouth in the morning. [facility] famotidine 40 mg tablet 02-09 12:02: 37 Yes 40mg Take 40 mg by mouth in the morning. [facility] DILTIAZEM HCL ORAL 02-09 12:02: 37 Yes 120mg Take 120 mg by mouth every 8 (eight) hours. [facility] docusate 100 mg capsule 02-09 12:02: 37 Yes 100mg Take 100 mg by mouth daily. [facility] polyethylen e glycol 3350 (MIRALAX ORAL) 02-09 12:02: 37 Yes Take by mouth. [facility] furosemide 20 mg tablet 02-09 12:02: 37 Yes 20mg Take 20 mg by mouth in the morning. [facility] famotidine 40 mg tablet 02-09 12:02: 37 Yes 40mg Take 40 mg by mouth in the morning. [facility] DILTIAZEM HCL ORAL 02-09 12:02: 37 Yes 120mg Take 120 mg by mouth every 8 (eight) hours. [facility] docusate 100 mg capsule 02-09 12:02: 37 Yes 100mg Take 100 mg by mouth daily. [facility] polyethylen e glycol 3350 (MIRALAX ORAL) 02-09 12:02: 37 Yes Take by mouth. [facility] furosemide 20 mg tablet 02-09 12:02: 37 Yes 20mg Take 20 mg by mouth in the morning. [facility] famotidine 40 mg tablet 02-09 12:02: 37 Yes 40mg Take 40 mg by mouth in the morning. [facility] DILTIAZEM HCL ORAL 02-09 12:02: 37 Yes 120mg Take 120 mg by mouth every 8 (eight) hours. [facility] docusate 100 mg capsule 02-09 12:02: 37 Yes 100mg Take 100 mg by mouth daily. [facility] polyethylen e glycol 3350 (MIRALAX ORAL) 02-09 12:02: 37 Yes Take by mouth. [facility] furosemide 20 mg tablet 02-09 12:02: 37 Yes 20mg Take 20 mg by mouth in the morning. [facility] famotidine 40 mg tablet 02-09 12:02: 37 Yes 40mg Take 40 mg by mouth in the morning. [facility] DILTIAZEM HCL ORAL 02-09 12:02: 37 Yes 120mg Take 120 mg by mouth every 8 (eight) hours. [facility] docusate 100 mg capsule 02-09 12:02: 37 Yes 100mg Take 100 mg by mouth daily. [facility] polyethylen e glycol 3350 (MIRALAX ORAL) 02-09 12:02: 37 Yes Take by mouth. [facility] furosemide 20 mg tablet 02-09 12:02: 37 Yes 20mg Take 20 mg by mouth in the morning. [facility] famotidine 40 mg tablet 02-09 12:02: 37 Yes 40mg Take 40 mg by mouth in the morning. [facility] DILTIAZEM HCL ORAL 02-09 12:02: 37 Yes 120mg Take 120 mg by mouth every 8 (eight) hours. [facility] docusate 100 mg capsule 02-09 12:02: 37 Yes 100mg Take 100 mg by mouth daily. [facility] polyethylen e glycol 3350 (MIRALAX ORAL) 02-09 12:02: 37 Yes Take by mouth. [facility] furosemide 20 mg tablet 02-09 12:02: 37 Yes 20mg Take 20 mg by mouth in the morning. [facility] famotidine 40 mg tablet 02-09 12:02: 37 Yes 40mg Take 40 mg by mouth in the morning. [facility] DILTIAZEM HCL ORAL 02-09 12:02: 37 Yes 120mg Take 120 mg by mouth every 8 (eight) hours. [facility] docusate 100 mg capsule 02-09 12:02: 37 Yes 100mg Take 100 mg by mouth daily. [facility] polyethylen e glycol 3350 (MIRALAX ORAL) 02-09 12:02: 37 Yes Take by mouth. [facility] furosemide 20 mg tablet 02-09 12:02: 37 Yes 20mg Take 20 mg by mouth in the morning. [facility] famotidine 40 mg tablet 02-09 12:02: 37 Yes 40mg Take 40 mg by mouth in the morning. [facility] DILTIAZEM HCL ORAL 02-09 12:02: 37 Yes 120mg Take 120 mg by mouth every 8 (eight) hours. [facility] docusate 100 mg capsule 02-09 12:02: 37 Yes 100mg Take 100 mg by mouth daily. [facility] polyethylen e glycol 3350 (MIRALAX ORAL) 02-09 12:02: 37 Yes Take by mouth. [facility] furosemide 20 mg tablet 02-09 12:02: 37 Yes 20mg Take 20 mg by mouth in the morning. [facility] famotidine 40 mg tablet 02-09 12:02: 37 Yes 40mg Take 40 mg by mouth in the morning. [facility] DILTIAZEM HCL ORAL 02-09 12:02: 37 Yes 120mg Take 120 mg by mouth every 8 (eight) hours. [facility] docusate 100 mg capsule 02-09 12:02: 37 Yes 100mg Take 100 mg by mouth daily. [facility] polyethylen e glycol 3350 (MIRALAX ORAL) 02-09 12:02: 37 Yes Take by mouth. [facility] furosemide 20 mg tablet 02-09 12:02: 37 Yes 20mg Take 20 mg by mouth in the morning. [facility] famotidine 40 mg tablet 02-09 12:02: 37 Yes 40mg Take 40 mg by mouth in the morning. [facility] DILTIAZEM HCL ORAL 02-09 12:02: 37 Yes 120mg Take 120 mg by mouth every 8 (eight) hours. [facility] docusate 100 mg capsule 02-09 12:02: 37 Yes 100mg Take 100 mg by mouth daily. [facility] polyethylen e glycol 3350 (MIRALAX ORAL) 02-09 12:02: 37 Yes Take by mouth. [facility] furosemide 20 mg tablet 02-09 12:02: 37 Yes 20mg Take 20 mg by mouth in the morning. [facility] famotidine 40 mg tablet 02-09 12:02: 37 Yes 40mg Take 40 mg by mouth in the morning. [facility] DILTIAZEM HCL ORAL 02-09 12:02: 37 Yes 120mg Take 120 mg by mouth every 8 (eight) hours. [facility] docusate 100 mg capsule 02-09 12:02: 37 Yes 100mg Take 100 mg by mouth daily. [facility] polyethylen e glycol 3350 (MIRALAX ORAL) 02-09 12:02: 37 Yes Take by mouth. [facility] furosemide 20 mg tablet 02-09 12:02: 37 Yes 20mg Take 20 mg by mouth in the morning. [facility] famotidine 40 mg tablet 02-09 12:02: 37 Yes 40mg Take 40 mg by mouth in the morning. [facility] DILTIAZEM HCL ORAL 02-09 12:02: 37 Yes 120mg Take 120 mg by mouth every 8 (eight) hours. [facility] docusate 100 mg capsule 02-09 12:02: 37 Yes 100mg Take 100 mg by mouth daily. [facility] polyethylen e glycol 3350 (MIRALAX ORAL) 02-09 12:02: 37 Yes Take by mouth. [facility] furosemide 20 mg tablet 02-09 12:02: 37 Yes 20mg Take 20 mg by mouth in the morning. [facility] famotidine 40 mg tablet 02-09 12:02: 37 Yes 40mg Take 40 mg by mouth in the morning. [facility] DILTIAZEM HCL ORAL 02-09 12:02: 37 Yes 120mg Take 120 mg by mouth every 8 (eight) hours. [facility] docusate 100 mg capsule 02-09 12:02: 37 Yes 100mg Take 100 mg by mouth daily. [facility] polyethylen e glycol 3350 (MIRALAX ORAL) 02-09 12:02: 37 Yes Take by mouth. [facility] furosemide 20 mg tablet 02-09 12:02: 37 Yes 20mg Take 20 mg by mouth in the morning. [facility] famotidine 40 mg tablet 02-09 12:02: 37 Yes 40mg Take 40 mg by mouth in the morning. [facility] DILTIAZEM HCL ORAL 02-09 12:02: 37 Yes 120mg Take 120 mg by mouth every 8 (eight) hours. [facility] docusate 100 mg capsule 02-09 12:02: 37 Yes 100mg Take 100 mg by mouth daily. [facility] polyethylen e glycol 3350 (MIRALAX ORAL) 02-09 12:02: 37 Yes Take by mouth. [facility] furosemide 20 mg tablet 02-09 12:02: 37 Yes 20mg Take 20 mg by mouth in the morning. [facility] famotidine 40 mg tablet 02-09 12:02: 37 Yes 40mg Take 40 mg by mouth in the morning. [facility] DILTIAZEM HCL ORAL 02-09 12:02: 37 Yes 120mg Take 120 mg by mouth every 8 (eight) hours. [facility] docusate 100 mg capsule 02-09 12:02: 37 Yes 100mg Take 100 mg by mouth daily. [facility] polyethylen e glycol 3350 (MIRALAX ORAL) 02-09 12:02: 37 Yes Take by mouth. [facility] furosemide 20 mg tablet 02-09 12:02: 37 Yes 20mg Take 20 mg by mouth in the morning. [facility] famotidine 40 mg tablet 02-09 12:02: 37 Yes 40mg Take 40 mg by mouth in the morning. [facility] DILTIAZEM HCL ORAL 02-09 12:02: 37 Yes 120mg Take 120 mg by mouth every 8 (eight) hours. [facility] docusate 100 mg capsule 02-09 12:02: 37 Yes 100mg Take 100 mg by mouth daily. [facility] polyethylen e glycol 3350 (MIRALAX ORAL) 02-09 12:02: 37 Yes Take by mouth. [facility] furosemide 20 mg tablet 02-09 12:02: 37 Yes 20mg Take 20 mg by mouth in the morning. [facility] famotidine 40 mg tablet 02-09 12:02: 37 Yes 40mg Take 40 mg by mouth in the morning. [facility] DILTIAZEM HCL ORAL 02-09 12:02: 37 Yes 120mg Take 120 mg by mouth every 8 (eight) hours. [facility] docusate 100 mg capsule 02-09 12:02: 37 Yes 100mg Take 100 mg by mouth daily. [facility] polyethylen e glycol 3350 (MIRALAX ORAL) 02-09 12:02: 37 Yes Take by mouth. [facility] furosemide 20 mg tablet 02-09 12:02: 37 Yes 20mg Take 20 mg by mouth in the morning. [facility] famotidine 40 mg tablet 02-09 12:02: 37 Yes 40mg Take 40 mg by mouth in the morning. [facility] DILTIAZEM HCL ORAL 02-09 12:02: 37 Yes 120mg Take 120 mg by mouth every 8 (eight) hours. [facility] docusate 100 mg capsule 02-09 12:02: 37 Yes 100mg Take 100 mg by mouth daily. [facility] polyethylen e glycol 3350 (MIRALAX ORAL) 02-09 12:02: 37 Yes Take by mouth. [facility] furosemide 20 mg tablet 02-09 12:02: 37 Yes 20mg Take 20 mg by mouth in the morning. [facility] famotidine 40 mg tablet 02-09 12:02: 37 Yes 40mg Take 40 mg by mouth in the morning. [facility] DILTIAZEM HCL ORAL 02-09 12:02: 37 Yes 120mg Take 120 mg by mouth every 8 (eight) hours. [facility] docusate 100 mg capsule 02-09 12:02: 37 Yes 100mg Take 100 mg by mouth daily. [facility] polyethylen e glycol 3350 (MIRALAX ORAL) 02-09 12:02: 37 Yes Take by mouth. [facility] furosemide 20 mg tablet 02-09 12:02: 37 Yes 20mg Take 20 mg by mouth in the morning. [facility] famotidine 40 mg tablet 02-09 12:02: 37 Yes 40mg Take 40 mg by mouth in the morning. [facility] DILTIAZEM HCL ORAL 02-09 12:02: 37 Yes 120mg Take 120 mg by mouth every 8 (eight) hours. [facility] docusate 100 mg capsule 02-09 12:02: 37 Yes 100mg Take 100 mg by mouth daily. [facility] polyethylen e glycol 3350 (MIRALAX ORAL) 02-09 12:02: 37 Yes Take by mouth. [facility] furosemide 20 mg tablet 02-09 12:02: 37 Yes 20mg Take 20 mg by mouth in the morning. [facility] famotidine 40 mg tablet 02-09 12:02: 37 Yes 40mg Take 40 mg by mouth in the morning. [facility] DILTIAZEM HCL ORAL 02-09 12:02: 37 Yes 120mg Take 120 mg by mouth every 8 (eight) hours. [facility] docusate 100 mg capsule 02-09 12:02: 37 Yes 100mg Take 100 mg by mouth daily. [facility] polyethylen e glycol 3350 (MIRALAX ORAL) 02-09 12:02: 37 Yes Take by mouth. [facility] furosemide 20 mg tablet 02-09 12:02: 37 Yes 20mg Take 20 mg by mouth in the morning. [facility] famotidine 40 mg tablet 02-09 12:02: 37 Yes 40mg Take 40 mg by mouth in the morning. [facility] DILTIAZEM HCL ORAL 02-09 12:02: 37 Yes 120mg Take 120 mg by mouth every 8 (eight) hours. [facility] docusate 100 mg capsule 02-09 12:02: 37 Yes 100mg Take 100 mg by mouth daily. [facility] polyethylen e glycol 3350 (MIRALAX ORAL) 02-09 12:02: 37 Yes Take by mouth. [facility] furosemide 20 mg tablet 02-09 12:02: 37 Yes 20mg Take 20 mg by mouth in the morning. [facility] famotidine 40 mg tablet 02-09 12:02: 37 Yes 40mg Take 40 mg by mouth in the morning. [facility] DILTIAZEM HCL ORAL 02-09 12:02: 37 Yes 120mg Take 120 mg by mouth every 8 (eight) hours. [facility] docusate 100 mg capsule 02-09 12:02: 37 Yes 100mg Take 100 mg by mouth daily. [facility] polyethylen e glycol 3350 (MIRALAX ORAL) 02-09 12:02: 37 Yes Take by mouth. [facility] furosemide 20 mg tablet 02-09 12:02: 37 Yes 20mg Take 20 mg by mouth in the morning. [facility] famotidine 40 mg tablet 02-09 12:02: 37 Yes 40mg Take 40 mg by mouth in the morning. [facility] DILTIAZEM HCL ORAL 02-09 12:02: 37 Yes 120mg Take 120 mg by mouth every 8 (eight) hours. [facility] docusate 100 mg capsule 02-09 12:02: 37 Yes 100mg Take 100 mg by mouth daily. [facility] polyethylen e glycol 3350 (MIRALAX ORAL) 02-09 12:02: 37 Yes Take by mouth. [facility] furosemide 20 mg tablet 02-09 12:02: 37 Yes 20mg Take 20 mg by mouth in the morning. [facility] famotidine 40 mg tablet 02-09 12:02: 37 Yes 40mg Take 40 mg by mouth in the morning. [facility] DILTIAZEM HCL ORAL 02-09 12:02: 37 Yes 120mg Take 120 mg by mouth every 8 (eight) hours. [facility] docusate 100 mg capsule 02-09 12:02: 37 Yes 100mg Take 100 mg by mouth daily. [facility] polyethylen e glycol 3350 (MIRALAX ORAL) 02-09 12:02: 37 Yes Take by mouth. [facility] furosemide 20 mg tablet 02-09 12:02: 37 Yes 20mg Take 20 mg by mouth in the morning. [facility] famotidine 40 mg tablet 02-09 12:02: 37 Yes 40mg Take 40 mg by mouth in the morning. [facility] DILTIAZEM HCL ORAL 02-09 12:02: 37 Yes 120mg Take 120 mg by mouth every 8 (eight) hours. [facility] cetirizine 10 mg tablet 2021-02 16:58: 27 Yes 10mg Take 10 mg by mouth daily. [facility] propranoloL 40 mg tablet 2021-02 16:58: 27 Yes 40mg Take 40 mg by mouth 3 (three) times daily. [facility] pyridoxine, VITAMIN B-6, 25 mg tablet 2021-02 16:58: 27 Yes 25mg Take 25 mg by mouth daily. [facility] acetaminoph en 650 mg CR tablet 2021-02 16:58: 27 Yes 650mg Take 650 mg by mouth every 8 (eight) hours as needed for Pain. [facility] docusate 100 mg capsule 2021-02 16:58: 27 Yes 100mg Take 100 mg by mouth daily. [facility] HYDROcodone -acetaminop hen 5-325 mg tablet 2021-02 16:58: 27 Yes 1{tbl} Take 1 tablet by mouth every 6 (six) hours as needed. [facility] polyethylen e glycol 3350 (MIRALAX ORAL) 2021-02 16:58: 27 Yes Take by mouth. [facility] furosemide (LASIX) 20 mg tablet 2021-02 16:58: 27 Yes 20mg Take 20 mg by mouth in the morning. [facility] MELOXICAM ORAL 2021-02 16:58: 27 Yes 15mg Take 15 mg by mouth. [facility] famotidine 40 mg tablet 2021-02 16:58: 27 Yes 40mg Take 40 mg by mouth in the morning. [facility] DILTIAZEM HCL ORAL 2021-02 16:58: 27 Yes 120mg Take 120 mg by mouth every 8 (eight) hours. [facility] cetirizine 10 mg tablet 2021-02 16:58: 27 Yes 10mg Take 10 mg by mouth daily. [facility] propranoloL 40 mg tablet 2021-02 16:58: 27 Yes 40mg Take 40 mg by mouth 3 (three) times daily. [facility] pyridoxine, VITAMIN B-6, 25 mg tablet 2021-02 16:58: 27 Yes 25mg Take 25 mg by mouth daily. [facility] acetaminoph en 650 mg CR tablet 2021-02 16:58: 27 Yes 650mg Take 650 mg by mouth every 8 (eight) hours as needed for Pain. [facility] docusate 100 mg capsule 2021-02 16:58: 27 Yes 100mg Take 100 mg by mouth daily. [facility] HYDROcodone -acetaminop hen 5-325 mg tablet 2021-02 16:58: 27 Yes 1{tbl} Take 1 tablet by mouth every 6 (six) hours as needed. [facility] polyethylen e glycol 3350 (MIRALAX ORAL) 2021-02 16:58: 27 Yes Take by mouth. [facility] furosemide (LASIX) 20 mg tablet 2021-02 16:58: 27 Yes 20mg Take 20 mg by mouth in the morning. [facility] MELOXICAM ORAL 2021-02 16:58: 27 Yes 15mg Take 15 mg by mouth. [facility] famotidine 40 mg tablet 2021-02 16:58: 27 Yes 40mg Take 40 mg by mouth in the morning. [facility] DILTIAZEM HCL ORAL 2021-02 16:58: 27 Yes 120mg Take 120 mg by mouth every 8 (eight) hours. [facility] cetirizine 10 mg tablet 2021-02 16:58: 27 Yes 10mg Take 10 mg by mouth daily. [facility] propranoloL 40 mg tablet 2021-02 16:58: 27 Yes 40mg Take 40 mg by mouth 3 (three) times daily. [facility] pyridoxine, VITAMIN B-6, 25 mg tablet 2021-02 16:58: 27 Yes 25mg Take 25 mg by mouth daily. [facility] acetaminoph en 650 mg CR tablet 2021-02 16:58: 27 Yes 650mg Take 650 mg by mouth every 8 (eight) hours as needed for Pain. [facility] docusate 100 mg capsule 2021-02 16:58: 27 Yes 100mg Take 100 mg by mouth daily. [facility] HYDROcodone -acetaminop hen 5-325 mg tablet 2021-02 16:58: 27 Yes 1{tbl} Take 1 tablet by mouth every 6 (six) hours as needed. [facility] polyethylen e glycol 3350 (MIRALAX ORAL) 2021-02 16:58: 27 Yes Take by mouth. [facility] furosemide (LASIX) 20 mg tablet 2021-02 16:58: 27 Yes 20mg Take 20 mg by mouth in the morning. [facility] MELOXICAM ORAL 2021-02 16:58: 27 Yes 15mg Take 15 mg by mouth. [facility] famotidine 40 mg tablet 2021-02 16:58: 27 Yes 40mg Take 40 mg by mouth in the morning. [facility] DILTIAZEM HCL ORAL 2021-02 16:58: 27 Yes 120mg Take 120 mg by mouth every 8 (eight) hours. [facility] [facility]ine 10 mg tablet 2021-02 16:58: 27 Yes 10mg Take 10 mg by mouth daily. [facility] propranoloL 40 mg tablet 2021-02 16:58: 27 Yes 40mg Take 40 mg by mouth 3 (three) times daily. [facility] pyridoxine, VITAMIN B-6, 25 mg tablet 2021-02 16:58: 27 Yes 25mg Take 25 mg by mouth daily. [facility] acetaminoph en 650 mg CR tablet 2021-02 16:58: 27 Yes 650mg Take 650 mg by mouth every 8 (eight) hours as needed for Pain. [facility] docusate 100 mg capsule 2021-02 16:58: 27 Yes 100mg Take 100 mg by mouth daily. [facility] HYDROcodone -acetaminop hen 5-325 mg tablet 2021-02 16:58: 27 Yes 1{tbl} Take 1 tablet by mouth every 6 (six) hours as needed. [facility] polyethylen e glycol 3350 (MIRALAX ORAL) 2021-02 16:58: 27 Yes Take by mouth. [facility] furosemide (LASIX) 20 mg tablet 2021-02 16:58: 27 Yes 20mg Take 20 mg by mouth in the morning. [facility] MELOXICAM ORAL 2021-02 16:58: 27 Yes 15mg Take 15 mg by mouth. [facility] famotidine 40 mg tablet 2021-02 16:58: 27 Yes 40mg Take 40 mg by mouth in the morning. [facility] DILTIAZEM HCL ORAL 2021-02 16:58: 27 Yes 120mg Take 120 mg by mouth every 8 (eight) hours. [facility] cetirizine 10 mg tablet 2021-02 16:58: 27 Yes 10mg Take 10 mg by mouth daily. [facility] propranoloL 40 mg tablet 2021-02 16:58: 27 Yes 40mg Take 40 mg by mouth 3 (three) times daily. [facility] pyridoxine, VITAMIN B-6, 25 mg tablet 2021-02 16:58: 27 Yes 25mg Take 25 mg by mouth daily. [facility] acetaminoph en 650 mg CR tablet 2021-02 16:58: 27 Yes 650mg Take 650 mg by mouth every 8 (eight) hours as needed for Pain. [facility] docusate 100 mg capsule 2021-02 16:58: 27 Yes 100mg Take 100 mg by mouth daily. [facility] HYDROcodone -acetaminop hen 5-325 mg tablet 2021-02 16:58: 27 Yes 1{tbl} Take 1 tablet by mouth every 6 (six) hours as needed. [facility] polyethylen e glycol 3350 (MIRALAX ORAL) 2021-02 16:58: 27 Yes Take by mouth. [facility] furosemide (LASIX) 20 mg tablet 2021-02 16:58: 27 Yes 20mg Take 20 mg by mouth in the morning. [facility] MELOXICAM ORAL 2021-02 16:58: 27 Yes 15mg Take 15 mg by mouth. [facility] famotidine 40 mg tablet 2021-02 16:58: 27 Yes 40mg Take 40 mg by mouth in the morning. [facility] DILTIAZEM HCL ORAL 2021-02 16:58: 27 Yes 120mg Take 120 mg by mouth every 8 (eight) hours. [facility] MELOXICAM ORAL 2021-02 16:58: 27 Yes 15mg Take 15 mg by mouth. [facility] MELOXICAM ORAL 2021-02 16:58: 27 Yes 15mg Take 15 mg by mouth. [facility] MELOXICAM ORAL 2021-02 16:58: 27 Yes 15mg Take 15 mg by mouth. [facility] MELOXICAM ORAL 2021-02 16:58: 27 Yes 15mg Take 15 mg by mouth. [facility] ondansetron (ZOFRAN-ODT ) disintegrat ing tablet 4 mg 2021-02 14:35: 55 Yes 4mg 4 mg, Oral, Q6HPRN, Starting on Tue12/30/21 at 0835, Until Discontinu ed, Routine, Nausea and Vomiting (N/V) [facility] HYDROcodone -acetaminop hen (NORCO) 5-325 mg tablet 2021-02 00:00: 00 01-07 05:59 :00 No 4647 1{tbl} Take 1 tablet by mouth every 6 (six) hours as needed for Pain (scale 7-10) for up to 7 days. Indication s: acute pain [facility] alum-mag hydroxide-s imeth (MAALOX PLUS / MAG-AL PLUS) 200-200-20 mg/5 mL suspension 30 mL 2021-02 20:00: 00 Yes 30mL 30 mL, Oral, TID, First dose on Tue12/29/21 at 1400, Until Discontinu ed, Routine [facility] alum-mag hydroxide-s imeth (MAALOX PLUS / MAG-AL PLUS) 200-200-20 mg/5 mL suspension 30 mL 2021-02 20:00: 00 Yes 30mL 30 mL, Oral, TID, First dose on Tue12/29/21 at 1400, Until Discontinu ed, Routine [facility] acetaminoph en (TYLENOL) tablet 650 mg 2021-02 18:00: 00 Yes 650mg 650 mg, Oral, Q6H, First dose (after last modificati on) on Tue12/29/21 at 1200, Until Discontinu ed, Routine [facility] acetaminoph en (TYLENOL) tablet 650 mg 2021-02 18:00: 00 Yes 650mg 650 mg, Oral, Q6H, First dose (after last modificati on) on Tue12/29/21 at 1200, Until Discontinu ed, Routine [facility] HYDROmorpho ne (DILAUDID) 10 mg/50 mL 0.9% NaCl 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
Lock out Interval: 10 Minutes
Basal Rate: 0 mg/hr
F our Hour Dose Limit: 4 mg
IV Infusion, 50 mL, CONTINUOUS , Starting on Tue12/29/21 at 1030, Until Tue12/31/21 at 1029 [facility] HYDROmorpho ne (DILAUDID) 10 mg/50 mL 0.9% NaCl UNDERWRITING OPERATIONS MANAGER 2021-02 16:30: 00 12-30 14:36 :58 No Patient Bolus Dose: 0.2 mg
Lock out Interval: 10 Minutes
Basal Rate: 0 mg/hr
F Dose Limit: 4 mg
IV Infusion, 50 mL, CONTINUOUS , Starting on Tue12/29/21 at 1030, Until Tue12/30/21 at 0836 [facility] HYDROcodone -acetaminop hen (NORCO) 10-325 mg tablet 1 tablet 2021-02 15:24: 46 Yes 1{tbl} 1 tablet, Oral, Q4HPRN, Starting on Tue12/29/21 at 0924, Until Discontinu ed, Routine, Pain (scale 7-10) [facility] HYDROcodone -acetaminop hen (NORCO) 10-325 mg tablet 1 tablet 2021-02 15:24: 46 Yes 1{tbl} 1 tablet, Oral, Q4HPRN, Starting on Tue12/29/21 at 0924, Until Discontinu ed, Routine, Pain (scale 7-10) [facility] cyclobenzap rine (FLEXERIL) tablet 5 mg 2021-02 15:15: 00 Yes 5mg 5 mg, Oral, TID, First dose on Tue12/29/21 at 0915, Until Discontinu ed, Routine [facility] cyclobenzap rine (FLEXERIL) tablet 5 mg 2021-02 15:15: 00 Yes 5mg 5 mg, Oral, TID, First dose on Tue12/29/21 at 0915, Until Discontinu ed, Routine [facility] enoxaparin (LOVENOX) injection 40 mg 2021-02 15:00: 00 Yes 40mg 40 mg, Subcutaneo us, DAILY, First dose on Tue12/29/21 at 0900, Until Discontinu ed, Routine [facility] furosemide (LASIX) tablet 20 mg 2021-02 15:00: 00 Yes 20mg 20 mg, Oral, DAILY, First dose on Tue12/29/21 at 0900, Until Discontinu ed, Routine [facility] famotidine (PEPCID AC) tablet 40 mg 2021-02 15:00: 00 Yes 40mg 40 mg, Oral, DAILY, First dose on Tue12/29/21 at 0900, Until Discontinu ed, Routine [facility] enoxaparin (LOVENOX) injection 40 mg 2021-02 15:00: 00 Yes 40mg 40 mg, Subcutaneo us, DAILY, First dose on Tue12/29/21 at 0900, Until Discontinu ed, Routine [facility] furosemide (LASIX) tablet 20 mg 2021-02 15:00: 00 Yes 20mg 20 mg, Oral, DAILY, First dose on Tue12/29/21 at 0900, Until Discontinu ed, Routine [facility] famotidine (PEPCID AC) tablet 40 mg 2021-02 15:00: 00 Yes 40mg 40 mg, Oral, DAILY, First dose on Tue12/29/21 at 0900, Until Discontinu ed, Routine [facility] atorvastati n (LIPITOR) tablet 80 mg 2021-02 03:00: 00 Yes 80mg 80 mg, Oral, QHS, First dose on Tue12/28/21 at 2100, Until Discontinu ed, Routine [facility] amitriptyli ne (ELAVIL) tablet 100 mg 2021-02 03:00: 00 Yes 100mg 100 mg, Oral, QHS, First dose on Tue12/28/21 at 2100, Until Discontinu ed, Routine [facility] atorvastati n (LIPITOR) tablet 80 mg 2021-02 03:00: 00 Yes 80mg 80 mg, Oral, QHS, First dose on Tue12/28/21 at 2100, Until Discontinu ed, Routine [facility] amitriptyli ne (ELAVIL) tablet 100 mg 2021-02 03:00: 00 Yes 100mg 100 mg, Oral, QHS, First dose on Tue12/28/21 at 2100, Until Discontinu ed, Routine [facility] levETIRAcet am (KEPPRA) tablet 1,000 mg 2021-02 02:00: 00 Yes 1000mg 1,000 mg, Oral, BID, First dose on Tue12/28/21 at 2000, Until Discontinu ed, Routine [facility] hydrOXYchlo roQUINE (PLAQUENIL) tablet 200 mg 2021-02 02:00: 00 Yes 200mg 200 mg, Oral, BID, First dose on Tue12/28/21 at 2000, Until Discontinu ed, Routine
Indicatio n: Rheumatic disorder [facility] levETIRAcet am (KEPPRA) tablet 1,000 mg 2021-02 02:00: 00 Yes 1000mg 1,000 mg, Oral, BID, First dose on Tue12/28/21 at 2000, Until Discontinu ed, Routine [facility] hydrOXYchlo roQUINE (PLAQUENIL) tablet 200 mg 2021-02 02:00: 00 Yes 200mg 200 mg, Oral, BID, First dose on Tue12/28/21 at 2000, Until Discontinu ed, Routine
Indicatio n: Rheumatic disorder [facility] HYDROmorpho ne (DILAUDID) 10 mg/50 mL 0.9% NaCl UNDERWRITING OPERATIONS MANAGER 2021-02 23:30: 00 12-29 13:39 :30 No Patient Bolus Dose: 0.2 mg
Lock out Interval: 10 Minutes
Basal Rate: 0 mg/hr
F our Hour Dose Limit: 4 mg
IV Infusion, 50 mL, CONTINUOUS , Starting on Tue12/28/21 at 1730, Until Tue12/29/21 at 0739 [facility] HYDROmorpho ne (DILAUDID) 10 mg/50 mL 0.9% NaCl UNDERWRITING OPERATIONS MANAGER 2021-02 23:30: 00 12-29 13:39 :30 No Patient Bolus Dose: 0.2 mg
Lock out Interval: 10 Minutes
Basal Rate: 0 mg/hr
F our Hour Dose Limit: 4 mg
IV Infusion, 50 mL, CONTINUOUS , Starting on Tue12/28/21 at 1730, Until Tue12/29/21 at 0739 [facility] naloxone (NARCAN) injection 0.1 mg 2021-02 22:21: 08 Yes .1mg 0.1 mg, Slow IV Push, SEE-INSTRU CTIONS, Starting on Tue12/28/21 at 1621, Until Discontinu ed, Routine [facility] naloxone (NARCAN) injection 0.1 mg 2021-02 22:21: 08 Yes .1mg 0.1 mg, Slow IV Push, SEE-INSTRU CTIONS, Starting on Tue12/28/21 at 1621, Until Discontinu ed, Routine [facility] propranoloL (INDERAL) tablet 40 mg 2021-02 20:00: 00 Yes 40mg 40 mg, Oral, TID, First dose on Tue12/28/21 at 1400, Until Discontinu ed, Routine [facility] diltiazem (CARDIZEM) tablet 120 mg 2021-02 20:00: 00 Yes 120mg 120 mg, Oral, Q8H, First dose on Tue12/28/21 at 1400, Until Discontinu ed [facility] propranoloL (INDERAL) tablet 40 mg 2021-02 20:00: 00 Yes 40mg 40 mg, Oral, TID, First dose on Tue12/28/21 at 1400, Until Discontinu ed, Routine [facility] diltiazem (CARDIZEM) tablet 120 mg 2021-02 20:00: 00 Yes 120mg 120 mg, Oral, Q8H, First dose on Tue12/28/21 at 1400, Until Discontinu ed [facility] HYDROmorpho ne (DILAUDID) injection 0.2 mg 2021-02 19:13: 34 12-28 23:34 :16 No .2mg 0.2 mg, Slow IV Push, Q5MIN PRN, 10 doses, Starting on Tue12/28/21 at 1313, Until Tue12/28/21 at 1734, Routine, Pain (scale 7-10), PACU
Us e approved by (Faculty): PACU USE -ANESTHESI A SERVICE-HY DROMORPHON E INJECTIONS [facility] FENTanyl PF (SUBLIMAZE (PF)) injection 25 mcg 2021-02 19:13: 34 12-28 22:20 :00 No 25ug 25 mcg, Slow IV Push, Q5MIN PRN, 4 doses, Starting on Tue12/28/21 at 1313, Until Discontinu ed, Routine, Pain (scale 4-6), PACU [facility] HYDROmorpho ne (DILAUDID) injection 0.2 mg 2021-02 19:13: 34 12-28 23:34 :16 No .2mg 0.2 mg, Slow IV Push, Q5MIN PRN, 10 doses, Starting on Tue12/28/21 at 1313, Until Tue12/28/21 at 1734, Routine, Pain (scale 7-10), PACU
Us e approved by (Faculty): PACU USE -ANESTHESI A SERVICE-HY DROMORPHON E INJECTIONS [facility] FENTanyl PF (SUBLIMAZE (PF)) injection 25 mcg 2021-02 19:13: 34 12-28 22:20 :00 No 25ug 25 mcg, Slow IV Push, Q5MIN PRN, 4 doses, Starting on Tue12/28/21 at 1313, Until Discontinu ed, Routine, Pain (scale 4-6), PACU [facility] acetaminoph en (TYLENOL) tablet 650 mg 2021-02 18:55: 08 12-29 13:47 :13 No 650mg 650 mg, Oral, Q6HPRN, Starting on Tue12/28/21 at 1255, Until Tue12/29/21 at 0747, Routine, Pain (scale 1-3) [facility] acetaminoph en (TYLENOL) tablet 650 mg 2021-02 18:55: 08 12-29 13:47 :13 No 650mg 650 mg, Oral, Q6HPRN, Starting on Tue12/28/21 at 1255, Until Tue12/29/21 at 0747, Routine, Pain (scale 1-3) [facility] ondansetron (ZOFRAN (PF)) injection 4 mg 2021-02 18:54: 57 Yes 4mg 4 mg, Slow IV Push, Q6HPRN, Starting on Tue12/28/21 at 1254, Until Discontinu ed, Routine, Nausea and Vomiting (N/V) [facility] sugammadex (BRIDION) injection 2021-02 18:42: 00 12-28 19:04 :26 No IV Push, ONCE INTRA PROCEDURE, Starting on Tue12/28/21 at 1242, Until Tue12/28/21 at 1304, Routine, Intra-op [facility] ondansetron (ZOFRAN (PF)) injection 2021-02 18:37: 00 12-28 19:04 :26 No Slow IV Push, ONCE INTRA PROCEDURE, Starting on Tue12/28/21 at 1237, Until Tue12/28/21 at 1304, Routine, [facility] PHEN[facility] 1000 mcg/10 mL in 0.9% NaCl syringe 2021-02 18:10: 00 12-28 19:04 :26 No Slow IV Push, CONTINUOUS PRN, Starting on Tue12/28/21 at 1210, Until Tue12/28/21 at 1304, Routine, Intra-op [facility] PHENYLephri ne 1000 mcg/10 mL in 0.9% NaCl syringe 2021-02 17:38: 00 12-28 19:04 :26 No Slow IV Push, ONCE INTRA PROCEDURE, Starting on Tue12/28/21 at 1138, Until Tue12/28/21 at 1304, Routine, Intra-op [facility] furosemide (LASIX) 20 mg tablet 2021-02 17:34: 17 Yes 20mg Take 20 mg by mouth in the morning. [facility] MELOXICAM ORAL 2021-02 17:34: 17 Yes 15mg Take 15 mg by mouth. [facility] famotidine 40 mg tablet 2021-02 17:34: 17 Yes 40mg Take 40 mg by mouth in the morning. [facility] DILTIAZEM HCL ORAL 2021-02 17:34: 17 Yes 120mg Take 120 mg by mouth every 8 (eight) hours. [facility] ketamine (KETALAR) injection 2021-02 16:52: 00 12-28 19:04 :26 No Intravenou s, ONCE INTRA PROCEDURE, Starting on Tue12/28/21 at 1052, Until Tue12/28/21 at 1304, Routine, Intra-op [facility] bupivacaine (preserv free) (SENSORCAIN E MPF) 0.25 % (2.5 mg/mL) 22 mL, bupivacaine liposome (PF) (EXPAREL (PF)) 1.3 % (13.3 mg/mL) 266 mg, NaCl 0.9% (NS) 50 mL 2021-02 15:47: 00 12-28 19:03 :19 No PRN, Starting on Tue12/28/21 at 0947, Intra-op [facility] HYDROmorphO ne (DILAUDID) injection 2021-02 14:03: 00 12-28 19:04 :26 No Slow IV Push, ONCE INTRA PROCEDURE, Starting on Tue12/28/21 at 0803, Until Tue12/28/21 at 1304, Routine, Intra-op [facility] bupivacaine (preserv free) (SENSORCAIN E MPF) 0.25 % (2.5 mg/mL) injection 2021-02 14:03: 00 12-28 19:03 :19 No PRN, Starting on Tue12/28/21 at 0803, Until Tue12/28/21 at 1303, Routine, Intra-op [facility] dexamethaso ne (DECADRON PHOSPHATE) injection 2021-02 13:58: 00 12-28 19:04 :26 No IV Push, ONCE INTRA PROCEDURE, Starting on Tue12/28/21 at 0758, Until Tue12/28/21 at 1304, Routine, Intra-op [facility] midazolam (VERSED) injection 2021-02 13:48: 00 12-28 19:04 :26 No IV Push, ONCE INTRA PROCEDURE, Starting on Tue12/28/21 at 0748, Until Tue12/28/21 at 1304, Routine, Intra-op [facility] ceFAZolin (ANCEF) injection 2021-02 13:32: 00 12-28 19:04 :26 No Slow IV Push, ONCE INTRA PROCEDURE, Starting on Tue12/28/21 at 0732, Until Tue12/28/21 at 1304, SULAIMAN, Intra-op [facility] rocuronium (ZEMURON) injection 2021-02 13:23: 00 12-28 19:04 :26 No IV Push, ONCE INTRA PROCEDURE, Starting on Tue12/28/21 at 0723, Until Tue12/28/21 at 1304, Routine, Intra-op [facility] propofoL IV infusion 2021-02 13:22: 00 12-28 19:04 :26 No Slow IV Push, ONCE INTRA PROCEDURE, Starting on Tue12/28/21 at 0722, Until Tue12/28/21 at 1304, Routine, Intra-op [facility] lidocaine 1% (XYLOCAINE) 100 mg/10 mL (1 %) injection 2021-02 13:22: 00 12-28 19:04 :26 No Intravenou s, ONCE INTRA PROCEDURE, Starting on Tue12/28/21 at 0722, Until Tue12/28/21 at 1304, Routine, Intra-op [facility] FENTanyl PF (SUBLIMAZE (PF)) injection 2021-02 13:22: 00 12-28 19:04 :26 No Intravenou s, ONCE INTRA PROCEDURE, Starting on Tue12/28/21 at 0722, Until Tue12/28/21 at 1304, Routine, Intra-op [facility] lactated ringers IV infusion 2021-02 13:19: 00 12-28 19:04 :26 No IV Infusion, CONTINUOUS PRN, Starting on Tue12/28/21 at 0719, Until Tue12/28/21 at 1304, Routine, Intra-op [facility] furosemide (LASIX) 20 mg tablet 2021-02 13:03: 19 Yes 20mg Take 20 mg by mouth in the morning. [facility] MELOXICAM ORAL 2021-02 13:03: 19 Yes 15mg Take 15 mg by mouth. [facility] famotidine 40 mg tablet 2021-02 13:03: 19 Yes 40mg Take 40 mg by mouth in the morning. [facility] DILTIAZEM HCL ORAL 2021-02 13:03: 19 Yes 120mg Take 120 mg by mouth every 8 (eight) hours. [facility] cetirizine 10 mg tablet 2021-02 12:56: 34 Yes 10mg Take 10 mg by mouth daily. [facility] propranoloL 40 mg tablet 2021-02 12:56: 34 Yes 40mg Take 40 mg by mouth 3 (three) times daily. [facility] pyridoxine, VITAMIN B-6, 25 mg tablet 2021-02 12:56: 34 Yes 25mg Take 25 mg by mouth daily. [facility] acetaminoph en 650 mg CR tablet 2021-02 12:56: 34 Yes 650mg Take 650 mg by mouth every 8 (eight) hours as needed for Pain. [facility] docusate 100 mg capsule 2021-02 12:56: 34 Yes 100mg Take 100 mg by mouth daily. [facility] HYDROcodone -acetaminop hen 5-325 mg tablet 2021-02 12:56: 34 Yes 1{tbl} Take 1 tablet by mouth every 6 (six) hours as needed. [facility] polyethylen e glycol 3350 (MIRALAX ORAL) 2021-02 12:56: 34 Yes Take by mouth. [facility] cetirizine 10 mg tablet 2021-02 12:56: 34 Yes 10mg Take 10 mg by mouth daily. [facility] propranoloL 40 mg tablet 2021-02 12:56: 34 Yes 40mg Take 40 mg by mouth 3 (three) times daily. [facility] pyridoxine, VITAMIN B-6, 25 mg tablet 2021-02 12:56: 34 Yes 25mg Take 25 mg by mouth daily. [facility] acetaminoph en 650 mg CR tablet 2021-02 12:56: 34 Yes 650mg Take 650 mg by mouth every 8 (eight) hours as needed for Pain. [facility] docusate 100 mg capsule 2021-02 12:56: 34 Yes 100mg Take 100 mg by mouth daily. [facility] HYDROcodone -acetaminop hen 5-325 mg tablet 2021-02 12:56: 34 Yes 1{tbl} Take 1 tablet by mouth every 6 (six) hours as needed. [facility] polyethylen e glycol 3350 (MIRALAX ORAL) 2021-02 12:56: 34 Yes Take by mouth. [facility] heparin (porcine) injection 5,000 Units 2021-02 12:38: 00 12-28 13:06 :00 No 5000U 5,000 Units, Subcutaneo us, ONCE, 1 dose, On Tue12/28/21 at 0645, SULAIMAN [facility] heparin (porcine) injection 5,000 Units 2021-02 12:38: 00 12-28 13:06 :00 No 5000U 5,000 Units, Subcutaneo us, ONCE, 1 dose, On Tue12/28/21 at 0645, SULAIMAN [facility] DILTIAZEM HCL ORAL 2021-02 18:00: 36 Yes 120mg Take 120 mg by mouth every 8 (eight) hours. [facility] DILTIAZEM HCL ORAL 2021-02 18:00: 36 Yes 120mg Take 120 mg by mouth every 8 (eight) hours. [facility] DILTIAZEM HCL ORAL 2021-02 18:00: 36 Yes 120mg Take 120 mg by mouth every 8 (eight) hours. [facility] MELOXICAM ORAL 2021-02 17:54: 18 Yes 15mg Take 15 mg by mouth. [facility] famotidine 40 mg tablet 2021-02 17:54: 18 Yes 40mg Take 40 mg by mouth in the morning. [facility] MELOXICAM ORAL 2021-02 17:54: 18 Yes 15mg Take 15 mg by mouth. [facility] famotidine 40 mg tablet 2021-02 17:54: 18 Yes 40mg Take 40 mg by mouth in the morning. [facility] MELOXICAM ORAL 2021-02 17:54: 18 Yes 15mg Take 15 mg by mouth. [facility] famotidine 40 mg tablet 2021-02 17:54: 18 Yes 40mg Take 40 mg by mouth in the morning. [facility] pyridoxine, VITAMIN B-6, 25 mg tablet 2021-02 17:15: 57 Yes 25mg Take 25 mg by mouth daily. [facility] HYDROcodone -acetaminop hen 5-325 mg tablet 2021-02 17:15: 57 Yes 1{tbl} Take 1 tablet by mouth every 6 (six) hours as needed. [facility] furosemide (LASIX) 20 mg tablet 2021-02 17:15: 57 Yes 20mg Take 20 mg by mouth in the morning. [facility] pyridoxine, VITAMIN B-6, 25 mg tablet 2021-02 17:15: 57 Yes 25mg Take 25 mg by mouth daily. [facility] HYDROcodone -acetaminop hen 5-325 mg tablet 2021-02 17:15: 57 Yes 1{tbl} Take 1 tablet by mouth every 6 (six) hours as needed. [facility] furosemide (LASIX) 20 mg tablet 2021-02 17:15: 57 Yes 20mg Take 20 mg by mouth in the morning. [facility] pyridoxine, VITAMIN B-6, 25 mg tablet 2021-02 17:15: 57 Yes 25mg Take 25 mg by mouth daily. [facility] HYDROcodone -acetaminop hen 5-325 mg tablet 2021-02 17:15: 57 Yes 1{tbl} Take 1 tablet by mouth every 6 (six) hours as needed. [facility] furosemide (LASIX) 20 mg tablet 2021-02 17:15: 57 Yes 20mg Take 20 mg by mouth in the morning. [facility] cetirizine 10 mg tablet 2021-02 16:47: 56 Yes 10mg Take 10 mg by mouth daily. [facility] acetaminoph en 650 mg CR tablet 2021-02 16:47: 56 Yes 650mg Take 650 mg by mouth every 8 (eight) hours as needed for Pain. [facility] docusate 100 mg capsule 2021-02 16:47: 56 Yes 100mg Take 100 mg by mouth daily. [facility] polyethylen e glycol 3350 (MIRALAX ORAL) 2021-02 16:47: 56 Yes Take by mouth. [facility] cetirizine 10 mg tablet 2021-02 16:47: 56 Yes 10mg Take 10 mg by mouth daily. [facility] acetaminoph en 650 mg CR tablet 2021-02 16:47: 56 Yes 650mg Take 650 mg by mouth every 8 (eight) hours as needed for Pain. [facility] docusate 100 mg capsule 2021-02 16:47: 56 Yes 100mg Take 100 mg by mouth daily. [facility] polyethylen e glycol 3350 (MIRALAX ORAL) 2021-02 16:47: 56 Yes Take by mouth. [facility] cetirizine 10 mg tablet 2021-02 16:47: 56 Yes 10mg Take 10 mg by mouth daily. [facility] acetaminoph en 650 mg CR tablet 2021-02 16:47: 56 Yes 650mg Take 650 mg by mouth every 8 (eight) hours as needed for Pain. [facility] docusate 100 mg capsule 2021-02 16:47: 56 Yes 100mg Take 100 mg by mouth daily. [facility] polyethylen e glycol 3350 (MIRALAX ORAL) 2021-02 16:47: 56 Yes Take by mouth. [facility] cetirizine 10 mg tablet 09-29 15:02: 10 Yes 10mg Take 10 mg by mouth daily. [facility] propranoloL 40 mg tablet 09-29 15:02: 10 Yes 40mg Take 40 mg by mouth 3 (three) times daily. [facility] acetaminoph en 650 mg CR tablet 09-29 15:02: 10 Yes 650mg Take 650 mg by mouth every 8 (eight) hours as needed for Pain. [facility] docusate 100 mg capsule 09-29 15:02: 10 Yes 100mg Take 100 mg by mouth daily. [facility] HYDROcodone -acetaminop hen 5-325 mg tablet 09-29 15:02: 10 Yes 1{tbl} Take 1 tablet by mouth every 6 (six) hours as needed. [facility] polyethylen e glycol 3350 (MIRALAX ORAL) 09-29 15:02: 10 Yes Take by mouth. [facility] cetirizine 10 mg tablet 09-29 15:02: 10 Yes 10mg Take 10 mg by mouth daily. [facility] propranoloL 40 mg tablet 09-29 15:02: 10 Yes 40mg Take 40 mg by mouth 3 (three) times daily. [facility] acetaminoph en 650 mg CR tablet 09-29 15:02: 10 Yes 650mg Take 650 mg by mouth every 8 (eight) hours as needed for Pain. [facility] docusate 100 mg capsule 09-29 15:02: 10 Yes 100mg Take 100 mg by mouth daily. [facility] HYDROcodone -acetaminop hen 5-325 mg tablet 09-29 15:02: 10 Yes 1{tbl} Take 1 tablet by mouth every 6 (six) hours as needed. [facility] polyethylen e glycol 3350 (MIRALAX ORAL) 09-29 15:02: 10 Yes Take by mouth. [facility] cetirizine 10 mg tablet 09-29 15:02: 10 Yes 10mg Take 10 mg by mouth daily. [facility] propranoloL 40 mg tablet 09-29 15:02: 10 Yes 40mg Take 40 mg by mouth 3 (three) times daily. [facility] acetaminoph en 650 mg CR tablet 09-29 15:02: 10 Yes 650mg Take 650 mg by mouth every 8 (eight) hours as needed for Pain. [facility] docusate 100 mg capsule 09-29 15:02: 10 Yes 100mg Take 100 mg by mouth daily. [facility] HYDROcodone -acetaminop hen 5-325 mg tablet 09-29 15:02: 10 Yes 1{tbl} Take 1 tablet by mouth every 6 (six) hours as needed. [facility] polyethylen e glycol 3350 (MIRALAX ORAL) 09-29 15:02: 10 Yes Take by mouth. [facility] cetirizine 10 mg tablet 09-29 15:02: 10 Yes 10mg Take 10 mg by mouth daily. [facility] propranoloL 40 mg tablet 09-29 15:02: 10 Yes 40mg Take 40 mg by mouth 3 (three) times daily. [facility] acetaminoph en 650 mg CR tablet 09-29 15:02: 10 Yes 650mg Take 650 mg by mouth every 8 (eight) hours as needed for Pain. [facility] docusate 100 mg capsule 09-29 15:02: 10 Yes 100mg Take 100 mg by mouth daily. [facility] HYDROcodone -acetaminop hen 5-325 mg tablet 09-29 15:02: 10 Yes 1{tbl} Take 1 tablet by mouth every 6 (six) hours as needed. [facility] polyethylen e glycol 3350 (MIRALAX ORAL) 09-29 15:02: 10 Yes Take by mouth. [facility] propranoloL 40 mg tablet 09-29 15:02: 10 Yes 40mg Take 40 mg by mouth 3 (three) times daily. [facility] propranoloL 40 mg tablet 09-29 15:02: 10 Yes 40mg Take 40 mg by mouth 3 (three) times daily. [facility] propranoloL 40 mg tablet 09-29 15:02: 10 Yes 40mg Take 40 mg by mouth 3 (three) times daily. [facility] pyridoxine, VITAMIN B-6, 25 mg tablet 07-03 09:03: 31 Yes 25mg Take 25 mg by mouth daily. [facility] pyridoxine, VITAMIN B-6, 25 mg tablet 07-03 09:03: 31 Yes 25mg Take 25 mg by mouth daily. [facility] pyridoxine, VITAMIN B-6, 25 mg tablet 2021-0 07-03 09:03: 31 Yes 25mg Take 25 mg by mouth daily. [facility] pyridoxine, VITAMIN B-6, 25 mg tablet 2021-0 07-03 09:03: 31 Yes 25mg Take 25 mg by mouth daily. [facility] LEVETIRACET AM 500 mg tablet 2021-0 05-11 00:00: 00 Yes TAKE 2 TABLETS BY MOUTH TWICE DAILY [facility] LEVETIRACET AM 500 mg tablet 0 05-11 00:00: 00 Yes TAKE 2 TABLETS BY MOUTH TWICE DAILY [facility] LEVETIRACET AM 500 mg tablet 2021-0 05-11 00:00: 00 Yes TAKE 2 TABLETS BY MOUTH TWICE DAILY [facility] LEVETIRACET AM 500 mg tablet 2021-0 05-11 00:00: 00 Yes TAKE 2 TABLETS BY MOUTH TWICE DAILY [facility] LEVETIRACET AM 500 mg tablet 0 05-11 00:00: 00 Yes TAKE 2 TABLETS BY MOUTH TWICE DAILY [facility] LEVETIRACET AM 500 mg tablet 0 05-11 00:00: 00 Yes TAKE 2 TABLETS BY MOUTH TWICE DAILY [facility] LEVETIRACET AM 500 mg tablet 0 05-11 00:00: 00 Yes TAKE 2 TABLETS BY MOUTH TWICE DAILY [facility] LEVETIRACET AM 500 mg tablet 0 05-11 00:00: 00 Yes TAKE 2 TABLETS BY MOUTH TWICE DAILY [facility] LEVETIRACET AM 500 mg tablet 0 05-11 00:00: 00 Yes TAKE 2 TABLETS BY MOUTH TWICE DAILY [facility] LEVETIRACET AM 500 mg tablet 0 05-11 00:00: 00 Yes TAKE 2 TABLETS BY MOUTH TWICE DAILY [facility] LEVETIRACET AM 500 mg tablet 2021-0 05-11 00:00: 00 Yes TAKE 2 TABLETS BY MOUTH TWICE DAILY [facility] LEVETIRACET AM 500 mg tablet 0 05-11 00:00: 00 Yes TAKE 2 TABLETS BY MOUTH TWICE DAILY [facility] LEVETIRACET AM 500 mg tablet 0 05-11 00:00: 00 Yes TAKE 2 TABLETS BY MOUTH TWICE DAILY [facility] LEVETIRACET AM 500 mg tablet 0 05-11 00:00: 00 Yes TAKE 2 TABLETS BY MOUTH TWICE DAILY [facility] LEVETIRACET AM 500 mg tablet 0 05-11 00:00: 00 Yes TAKE 2 TABLETS BY MOUTH TWICE DAILY [facility] LEVETIRACET AM 500 mg tablet 0 05-11 00:00: 00 Yes TAKE 2 TABLETS BY MOUTH TWICE DAILY [facility] LEVETIRACET AM 500 mg tablet 0 05-11 00:00: 00 Yes TAKE 2 TABLETS BY MOUTH TWICE DAILY [facility] LEVETIRACET AM 500 mg tablet 05-11 00:00: 00 Yes TAKE 2 TABLETS BY MOUTH TWICE DAILY [facility] LEVETIRACET AM 500 mg tablet 0 05-11 00:00: 00 Yes TAKE 2 TABLETS BY MOUTH TWICE DAILY [facility] LEVETIRACET AM 500 mg tablet 0 05-11 00:00: 00 Yes TAKE 2 TABLETS BY MOUTH TWICE DAILY [facility] LEVETIRACET AM 500 mg tablet 0 05-11 00:00: 00 Yes TAKE 2 TABLETS BY MOUTH TWICE DAILY [facility] LEVETIRACET AM 500 mg tablet 0 05-11 00:00: 00 Yes TAKE 2 TABLETS BY MOUTH TWICE DAILY [facility] LEVETIRACET AM 500 mg tablet 0 05-11 00:00: 00 Yes TAKE 2 TABLETS BY MOUTH TWICE DAILY [facility] LEVETIRACET AM 500 mg tablet 0 05-11 00:00: 00 Yes TAKE 2 TABLETS BY MOUTH TWICE DAILY [facility] LEVETIRACET AM 500 mg tablet 0 05-11 00:00: 00 Yes TAKE 2 TABLETS BY MOUTH TWICE DAILY [facility] LEVETIRACET AM 500 mg tablet 0 05-11 00:00: 00 Yes TAKE 2 TABLETS BY MOUTH TWICE DAILY [facility] LEVETIRACET AM 500 mg tablet 0 05-11 00:00: 00 Yes TAKE 2 TABLETS BY MOUTH TWICE DAILY [facility] LEVETIRACET AM 500 mg tablet 0 05-11 00:00: 00 Yes TAKE 2 TABLETS BY MOUTH TWICE DAILY [facility] LEVETIRACET AM 500 mg tablet 0 05-11 00:00: 00 Yes TAKE 2 TABLETS BY MOUTH TWICE DAILY [facility] LEVETIRACET AM 500 mg tablet 0 05-11 00:00: 00 Yes TAKE 2 TABLETS BY MOUTH TWICE DAILY [facility] LEVETIRACET AM 500 mg tablet 0 05-11 00:00: 00 Yes TAKE 2 TABLETS BY MOUTH TWICE DAILY [facility] LEVETIRACET AM 500 mg tablet 0 05-11 00:00: 00 Yes TAKE 2 TABLETS BY MOUTH TWICE DAILY [facility] LEVETIRACET AM 500 mg tablet 0 05-11 00:00: 00 Yes TAKE 2 TABLETS BY MOUTH TWICE DAILY [facility] LEVETIRACET AM 500 mg tablet 0 05-11 00:00: 00 Yes TAKE 2 TABLETS BY MOUTH TWICE DAILY [facility] LEVETIRACET AM 500 mg tablet 0 05-11 00:00: 00 Yes TAKE 2 TABLETS BY MOUTH TWICE DAILY [facility] LEVETIRACET AM 500 mg tablet 0 05-11 00:00: 00 Yes TAKE 2 TABLETS BY MOUTH TWICE DAILY [facility] LEVETIRACET AM 500 mg tablet 0 05-11 00:00: 00 Yes TAKE 2 TABLETS BY MOUTH TWICE DAILY [facility] LEVETIRACET AM 500 mg tablet 0 05-11 00:00: 00 Yes TAKE 2 TABLETS BY MOUTH TWICE DAILY [facility] LEVETIRACET AM 500 mg tablet 2021-0 05-11 00:00: 00 Yes TAKE 2 TABLETS BY MOUTH TWICE DAILY [facility] LEVETIRACET AM 500 mg tablet 0 05-11 00:00: 00 Yes TAKE 2 TABLETS BY MOUTH TWICE DAILY [facility] LEVETIRACET AM 500 mg tablet 0 05-11 00:00: 00 Yes TAKE 2 TABLETS BY MOUTH TWICE DAILY [facility] LEVETIRACET AM 500 mg tablet 0 05-11 00:00: 00 Yes TAKE 2 TABLETS BY MOUTH TWICE DAILY [facility] LEVETIRACET AM 500 mg tablet 0 05-11 00:00: 00 Yes TAKE 2 TABLETS BY MOUTH TWICE DAILY [facility] LEVETIRACET AM 500 mg tablet 2021-0 05-11 00:00: 00 Yes TAKE 2 TABLETS BY MOUTH TWICE DAILY [facility] LEVETIRACET AM 500 mg tablet 0 05-11 00:00: 00 Yes TAKE 2 TABLETS BY MOUTH TWICE DAILY [facility] LEVETIRACET AM 500 mg tablet 0 05-11 00:00: 00 Yes TAKE 2 TABLETS BY MOUTH TWICE DAILY [facility] LEVETIRACET AM 500 mg tablet 0 05-11 00:00: 00 Yes TAKE 2 TABLETS BY MOUTH TWICE DAILY [facility] LEVETIRACET AM 500 mg tablet 0 05-11 00:00: 00 Yes TAKE 2 TABLETS BY MOUTH TWICE DAILY [facility] LEVETIRACET AM 500 mg tablet 0 05-11 00:00: 00 Yes TAKE 2 TABLETS BY MOUTH TWICE DAILY [facility] LEVETIRACET AM 500 mg tablet 0 05-11 00:00: 00 Yes TAKE 2 TABLETS BY MOUTH TWICE DAILY [facility] LEVETIRACET AM 500 mg tablet 0 05-11 00:00: 00 Yes TAKE 2 TABLETS BY MOUTH TWICE DAILY [facility] LEVETIRACET AM 500 mg tablet 2021-0 05-11 00:00: 00 Yes TAKE 2 TABLETS BY MOUTH TWICE DAILY [facility] LEVETIRACET AM 500 mg tablet 2021-0 05-11 00:00: 00 Yes TAKE 2 TABLETS BY MOUTH TWICE DAILY [facility] LEVETIRACET AM 500 mg tablet 0 05-11 00:00: 00 Yes TAKE 2 TABLETS BY MOUTH TWICE DAILY [facility] LEVETIRACET AM 500 mg tablet 2021-0 05-11 00:00: 00 Yes TAKE 2 TABLETS BY MOUTH TWICE DAILY [facility] LEVETIRACET AM 500 mg tablet 0 05-11 00:00: 00 Yes TAKE 2 TABLETS BY MOUTH TWICE DAILY [facility] LEVETIRACET AM 500 mg tablet 0 05-11 00:00: 00 Yes TAKE 2 TABLETS BY MOUTH TWICE DAILY [facility] LEVETIRACET AM 500 mg tablet 0 05-11 00:00: 00 Yes TAKE 2 TABLETS BY MOUTH TWICE DAILY [facility] LEVETIRACET AM 500 mg tablet 2021-0 05-11 00:00: 00 Yes TAKE 2 TABLETS BY MOUTH TWICE DAILY [facility] LEVETIRACET AM 500 mg tablet 2021-0 05-11 00:00: 00 Yes TAKE 2 TABLETS BY MOUTH TWICE DAILY [facility] LEVETIRACET AM 500 mg tablet 0 05-11 00:00: 00 Yes TAKE 2 TABLETS BY MOUTH TWICE DAILY [facility] LEVETIRACET AM 500 mg tablet 0 05-11 00:00: 00 Yes TAKE 2 TABLETS BY MOUTH TWICE DAILY [facility] LEVETIRACET AM 500 mg tablet 2021-0 05-11 00:00: 00 Yes TAKE 2 TABLETS BY MOUTH TWICE DAILY [facility] LEVETIRACET AM 500 mg tablet 2021-0 05-11 00:00: 00 Yes TAKE 2 TABLETS BY MOUTH TWICE DAILY [facility] LEVETIRACET AM 500 mg tablet 0 05-11 00:00: 00 Yes TAKE 2 TABLETS BY MOUTH TWICE DAILY [facility] LEVETIRACET AM 500 mg tablet 0 05-11 00:00: 00 Yes TAKE 2 TABLETS BY MOUTH TWICE DAILY [facility] LEVETIRACET AM 500 mg tablet 2021-0 05-11 00:00: 00 Yes TAKE 2 TABLETS BY MOUTH TWICE DAILY [facility] LEVETIRACET AM 500 mg tablet 0 05-11 00:00: 00 Yes TAKE 2 TABLETS BY MOUTH TWICE DAILY [facility] LEVETIRACET AM 500 mg tablet 0 05-11 00:00: 00 Yes TAKE 2 TABLETS BY MOUTH TWICE DAILY [facility] LEVETIRACET AM 500 mg tablet 0 05-11 00:00: 00 Yes TAKE 2 TABLETS BY MOUTH TWICE DAILY [facility] LEVETIRACET AM 500 mg tablet 0 05-11 00:00: 00 Yes TAKE 2 TABLETS BY MOUTH TWICE DAILY [facility] LEVETIRACET AM 500 mg tablet 0 05-11 00:00: 00 Yes TAKE 2 TABLETS BY MOUTH TWICE DAILY [facility] LEVETIRACET AM 500 mg tablet 0 05-11 00:00: 00 Yes TAKE 2 TABLETS BY MOUTH TWICE DAILY [facility] LEVETIRACET AM 500 mg tablet 0 05-11 00:00: 00 Yes TAKE 2 TABLETS BY MOUTH TWICE DAILY [facility] LEVETIRACET AM 500 mg tablet 0 05-11 00:00: 00 Yes TAKE 2 TABLETS BY MOUTH TWICE DAILY [facility] LEVETIRACET AM 500 mg tablet 0 05-11 00:00: 00 Yes TAKE 2 TABLETS BY MOUTH TWICE DAILY [facility] LEVETIRACET AM 500 mg tablet 0 05-11 00:00: 00 Yes TAKE 2 TABLETS BY MOUTH TWICE DAILY [facility] LEVETIRACET AM 500 mg tablet 0 05-11 00:00: 00 Yes TAKE 2 TABLETS BY MOUTH TWICE DAILY [facility] LEVETIRACET AM 500 mg tablet 0 05-11 00:00: 00 Yes TAKE 2 TABLETS BY MOUTH TWICE DAILY [facility] LEVETIRACET AM 500 mg tablet 0 05-11 00:00: 00 Yes TAKE 2 TABLETS BY MOUTH TWICE DAILY [facility] LEVETIRACET AM 500 mg tablet 0 05-11 00:00: 00 Yes TAKE 2 TABLETS BY MOUTH TWICE DAILY [facility] LEVETIRACET AM 500 mg tablet 2021-0 05-11 00:00: 00 Yes TAKE 2 TABLETS BY MOUTH TWICE DAILY [facility] LEVETIRACET AM 500 mg tablet 2021-0 05-11 00:00: 00 Yes TAKE 2 TABLETS BY MOUTH TWICE DAILY [facility] LEVETIRACET AM 500 mg tablet 2021-0 05-11 00:00: 00 Yes TAKE 2 TABLETS BY MOUTH TWICE DAILY [facility] LEVETIRACET AM 500 mg tablet 2021-0 05-11 00:00: 00 Yes TAKE 2 TABLETS BY MOUTH TWICE DAILY [facility] LEVETIRACET AM 500 mg tablet 2021-0 05-11 00:00: 00 Yes TAKE 2 TABLETS BY MOUTH TWICE DAILY [facility] LEVETIRACET AM 500 mg tablet 2021-0 05-11 00:00: 00 Yes TAKE 2 TABLETS BY MOUTH TWICE DAILY [facility] Cyanocobala min 1,000 mcg tablet 2-0 330 00:00: 00 Yes 1000ug Take 1 tablet by mouth. [facility] Cyanocobala min 1,000 mcg tablet 2-0 330 00:00: 00 Yes 1000ug Take 1 tablet by mouth. [facility] Cyanocobala min 1,000 mcg tablet 2-0 330 00:00: 00 Yes 1000ug Take 1 tablet by mouth. [facility] Cyanocobala min 1,000 mcg tablet 2-0 330 00:00: 00 Yes 1000ug Take 1 tablet by mouth. [facility] Cyanocobala min 1,000 mcg tablet 2-0 330 00:00: 00 Yes 1000ug Take 1 tablet by mouth. [facility] Cyanocobala min 1,000 mcg tablet 2-0 330 00:00: 00 Yes 1000ug Take 1 tablet by mouth. [facility] Cyanocobala min 1,000 mcg tablet 2-0 330 00:00: 00 Yes 1000ug Take 1 tablet by mouth. [facility] Cyanocobala min 1,000 mcg tablet 2022-0 3-30 00:00: 00 Yes 1000ug Take 1 tablet by mouth. [facility] Cyanocobala min 1,000 mcg tablet 2022-0 3-30 00:00: 00 Yes 1000ug Take 1 tablet by mouth. [facility] Cyanocobala min 1,000 mcg tablet 2022-0 3-30 00:00: 00 Yes 1000ug Take 1 tablet by mouth. [facility] Cyanocobala min 1,000 mcg tablet 2022-0 3-30 00:00: 00 Yes 1000ug Take 1 tablet by mouth. [facility] Cyanocobala min 1,000 mcg tablet 2022-0 3-30 00:00: 00 Yes 1000ug Take 1 tablet by mouth. [facility] Cyanocobala min 1,000 mcg tablet 2022-0 3-30 00:00: 00 Yes 1000ug Take 1 tablet by mouth. [facility] Cyanocobala min 1,000 mcg tablet 2022-0 3-30 00:00: 00 Yes 1000ug Take 1 tablet by mouth. [facility] Cyanocobala min 1,000 mcg tablet 2022-0 3-30 00:00: 00 Yes 1000ug Take 1 tablet by mouth. [facility] Cyanocobala min 1,000 mcg tablet 2022-0 330 00:00: 00 Yes 1000ug Take 1 tablet by mouth. [facility] Cyanocobala min 1,000 mcg tablet 2022-0 3-30 00:00: 00 Yes 1000ug Take 1 tablet by mouth. [facility] Cyanocobala min 1,000 mcg tablet 2022-0 3-30 00:00: 00 Yes 1000ug Take 1 tablet by mouth. [facility] Cyanocobala min 1,000 mcg tablet 2022-0 3-30 00:00: 00 Yes 1000ug Take 1 tablet by mouth. [facility] Cyanocobala min 1,000 mcg tablet 2022-0 3-30 00:00: 00 Yes 1000ug Take 1 tablet by mouth. [facility] Cyanocobala min 1,000 mcg tablet 2022-0 3-30 00:00: 00 Yes 1000ug Take 1 tablet by mouth. [facility] Cyanocobala min 1,000 mcg tablet 2022-0 3-30 00:00: 00 Yes 1000ug Take 1 tablet by mouth. [facility] Cyanocobala min 1,000 mcg tablet 2022-0 330 00:00: 00 Yes 1000ug Take 1 tablet by mouth. [facility] Cyanocobala min 1,000 mcg tablet 2022-0 330 00:00: 00 Yes 1000ug Take 1 tablet by mouth. [facility] Cyanocobala min 1,000 mcg tablet 2022-0 330 00:00: 00 Yes 1000ug Take 1 tablet by mouth. [facility] Cyanocobala min 1,000 mcg tablet 2022-0 330 00:00: 00 Yes 1000ug Take 1 tablet by mouth. [facility] Cyanocobala min 1,000 mcg tablet 2022-0 330 00:00: 00 Yes 1000ug Take 1 tablet by mouth. [facility] Cyanocobala min 1,000 mcg tablet 2022-0 330 00:00: 00 Yes 1000ug Take 1 tablet by mouth. [facility] Cyanocobala min 1,000 mcg tablet 2022-0 330 00:00: 00 Yes 1000ug Take 1 tablet by mouth. [facility] Cyanocobala min 1,000 mcg tablet 2022-0 330 00:00: 00 Yes 1000ug Take 1 tablet by mouth. [facility] Cyanocobala min 1,000 mcg tablet 2022-0 330 00:00: 00 Yes 1000ug Take 1 tablet by mouth. [facility] Cyanocobala min 1,000 mcg tablet 2022-0 3-30 00:00: 00 Yes 1000ug Take 1 tablet by mouth. [facility] Cyanocobala min 1,000 mcg tablet 2022-0 330 00:00: 00 Yes 1000ug Take 1 tablet by mouth. [facility] Cyanocobala min 1,000 mcg tablet 2022-0 3-30 00:00: 00 Yes 1000ug Take 1 tablet by mouth. [facility] Cyanocobala min 1,000 mcg tablet 2-0 330 00:00: 00 Yes 1000ug Take 1 tablet by mouth. [facility] Cyanocobala min 1,000 mcg tablet 2-0 30 00:00: 00 Yes 1000ug Take 1 tablet by mouth. [facility] Cyanocobala min 1,000 mcg tablet 2-0 330 00:00: 00 Yes 1000ug Take 1 tablet by mouth. [facility] cetirizine 10 mg tablet 2-0 325 00:00: 00 Yes 10mg Take 1 tablet by mouth. [facility] cetirizine 10 mg tablet 2-0 25 00:00: 00 Yes 10mg Take 1 tablet by mouth. [facility] cetirizine 10 mg tablet 2-0 325 00:00: 00 Yes 10mg Take 1 tablet by mouth. [facility] cetirizine 10 mg tablet 2-0 325 00:00: 00 Yes 10mg Take 1 tablet by mouth. [facility] cetirizine 10 mg tablet 2-0 325 00:00: 00 Yes 10mg Take 1 tablet by mouth. [facility] cetirizine 10 mg tablet 2-0 325 00:00: 00 Yes 10mg Take 1 tablet by mouth. [facility] cetirizine 10 mg tablet 2-0 325 00:00: 00 Yes 10mg Take 1 tablet by mouth. [facility] cetirizine 10 mg tablet 2-0 325 00:00: 00 Yes 10mg Take 1 tablet by mouth. [facility] cetirizine 10 mg tablet 2-0 3-25 00:00: 00 Yes 10mg Take 1 tablet by mouth. [facility] cetirizine 10 mg tablet 2-0 3-25 00:00: 00 Yes 10mg Take 1 tablet by mouth. [facility] cetirizine 10 mg tablet 2-0 3-25 00:00: 00 Yes 10mg Take 1 tablet by mouth. [facility] cetirizine 10 mg tablet 2-0 3-25 00:00: 00 Yes 10mg Take 1 tablet by mouth. [facility] cetirizine 10 mg tablet 2021-0 3-25 00:00: 00 Yes 10mg Take 1 tablet by mouth. [facility] cetirizine 10 mg tablet 2-0 3-25 00:00: 00 Yes 10mg Take 1 tablet by mouth. [facility] cetirizine 10 mg tablet 2-0 25 00:00: 00 Yes 10mg Take 1 tablet by mouth. [facility] cetirizine 10 mg tablet 2021-0 25 00:00: 00 Yes 10mg Take 1 tablet by mouth. [facility] cetirizine 10 mg tablet 2021-0 25 00:00: 00 Yes 10mg Take 1 tablet by mouth. [facility] cetirizine 10 mg tablet 2021-0 25 00:00: 00 Yes 10mg Take 1 tablet by mouth. [facility] cetirizine 10 mg tablet 2021-0 25 00:00: 00 Yes 10mg Take 1 tablet by mouth. [facility] cetirizine 10 mg tablet 2021-0 25 00:00: 00 Yes 10mg Take 1 tablet by mouth. [facility] cetirizine 10 mg tablet 2-0 25 00:00: 00 Yes 10mg Take 1 tablet by mouth. [facility] cetirizine 10 mg tablet 2021-0 325 00:00: 00 Yes 10mg Take 1 tablet by mouth. [facility] cetirizine 10 mg tablet 2021-0 325 00:00: 00 Yes 10mg Take 1 tablet by mouth. [facility] cetirizine 10 mg tablet 2-0 3-25 00:00: 00 Yes 10mg Take 1 tablet by mouth. [facility] cetirizine 10 mg tablet 2-0 3-25 00:00: 00 Yes 10mg Take 1 tablet by mouth. [facility] cetirizine 10 mg tablet 2021-0 3-25 00:00: 00 Yes 10mg Take 1 tablet by mouth. [facility] cetirizine 10 mg tablet 2-0 3-25 00:00: 00 Yes 10mg Take 1 tablet by mouth. [facility] cetirizine 10 mg tablet 2-0 3-25 00:00: 00 Yes 10mg Take 1 tablet by mouth. [facility] cetirizine 10 mg tablet 2-0 3-25 00:00: 00 Yes 10mg Take 1 tablet by mouth. [facility] cetirizine 10 mg tablet 2021-0 3-25 00:00: 00 Yes 10mg Take 1 tablet by mouth. [facility] cetirizine 10 mg tablet 2021-0 325 00:00: 00 Yes 10mg Take 1 tablet by mouth. [facility] cetirizine 10 mg tablet 2021-0 3-25 00:00: 00 Yes 10mg Take 1 tablet by mouth. [facility] cetirizine 10 mg tablet 2021-0 325 00:00: 00 Yes 10mg Take 1 tablet by mouth. [facility] cetirizine 10 mg tablet 2021-0 325 00:00: 00 Yes 10mg Take 1 tablet by mouth. [facility] cetirizine 10 mg tablet 2021-0 3-25 00:00: 00 Yes 10mg Take 1 tablet by mouth. [facility] cetirizine 10 mg tablet 2021-0 3-25 00:00: 00 Yes 10mg Take 1 tablet by mouth. [facility] cetirizine 10 mg tablet 2021-0 325 00:00: 00 Yes 10mg Take 1 tablet by mouth. [facility] omeprazole 40 mg capsule 2-0 1-12 00:00: 00 Yes [id number] 40mg Take 1 capsule by mouth 2 (two) times daily. [facility] omeprazole 40 mg capsule 2-0 1-12 00:00: 00 Yes [id number] 40mg Take 1 capsule by mouth 2 (two) times daily. [facility] omeprazole 40 mg capsule 2-0 1-12 00:00: 00 Yes [id number] 40mg Take 1 capsule by mouth 2 (two) times daily. [facility] mg capsule 2-0 1-12 00:00: 00 Yes [id number] 40mg Take 1 capsule by mouth 2 (two) times daily. [facility] omeprazole 40 mg capsule 2-0 1-12 00:00: 00 Yes [id number] 40mg Take 1 capsule by mouth 2 (two) times daily. [facility] omeprazole 40 mg capsule 2-0 -12 00:00: 00 Yes [id number] 40mg Take 1 capsule by mouth 2 (two) times daily. [facility] omeprazole 40 mg capsule 2-0 -12 00:00: 00 Yes [id number] 40mg Take 1 capsule by mouth 2 (two) times daily. [facility] omeprazole 40 mg capsule 2-0 -12 00:00: 00 Yes [id number] 40mg Take 1 capsule by mouth 2 (two) times daily. [facility] omeprazole 40 mg capsule 2-0 -12 00:00: 00 Yes [id number] 40mg Take 1 capsule by mouth 2 (two) times daily. [facility] omeprazole 40 mg capsule 2-0 -12 00:00: 00 Yes [id number] 40mg Take 1 capsule by mouth 2 (two) times daily. [facility] omeprazole 40 mg capsule 2-0 -12 00:00: 00 Yes [id number] 40mg Take 1 capsule by mouth 2 (two) times daily. [facility] omeprazole 40 mg capsule 2-0 -12 00:00: 00 Yes [id number] 40mg Take 1 capsule by mouth 2 (two) times daily. [facility] omeprazole 40 mg capsule 2-0 1-12 00:00: 00 Yes [id number] 40mg Take 1 capsule by mouth 2 (two) times daily. [facility] omeprazole 40 mg capsule 2-0 1-12 00:00: 00 Yes [id number] 40mg Take 1 capsule by mouth 2 (two) times daily. [facility] mg capsule 2-0 1-12 00:00: 00 Yes [id number] 40mg Take 1 capsule by mouth 2 (two) times daily. [facility] omeprazole 40 mg capsule 2-0 1-12 00:00: 00 Yes [id number] 40mg Take 1 capsule by mouth 2 (two) times daily. [facility] mg capsule 2-0 -12 00:00: 00 Yes [id number] 40mg Take 1 capsule by mouth 2 (two) times daily. [facility] mg capsule 2-0 -12 00:00: 00 Yes [id number] 40mg Take 1 capsule by mouth 2 (two) times daily. [facility] mg capsule 2-0 -12 00:00: 00 Yes [id number] 40mg Take 1 capsule by mouth 2 (two) times daily. [facility] mg capsule 2-0 -12 00:00: 00 Yes [id number] 40mg Take 1 capsule by mouth 2 (two) times daily. [facility] omeprazole 40 mg capsule 2-0 -12 00:00: 00 Yes [id number] 40mg Take 1 capsule by mouth 2 (two) times daily. [facility] omeprazole 40 mg capsule 2-0 -12 00:00: 00 Yes [id number] 40mg Take 1 capsule by mouth 2 (two) times daily. [facility] omeprazole 40 mg capsule 2-0 -12 00:00: 00 Yes [id number] 40mg Take 1 capsule by mouth 2 (two) times daily. [facility] mg capsule 2-0 -12 00:00: 00 Yes [id number] 40mg Take 1 capsule by mouth 2 (two) times daily. [facility] mg capsule 2-0 1-12 00:00: 00 Yes [id number] 40mg Take 1 capsule by mouth 2 (two) times daily. [facility] om[facility]ole [facility] mg capsule 2-0 -12 00:00: 00 Yes [id number] 40mg Take 1 capsule by mouth 2 (two) times daily. [facility] omeprazole 40 mg capsule 2-0 -12 00:00: 00 Yes [id number] 40mg Take 1 capsule by mouth 2 (two) times daily. [facility] omeprazole 40 mg capsule 2-0 -12 00:00: 00 Yes [id number] 40mg Take 1 capsule by mouth 2 (two) times daily. [facility] omeprazole 40 mg capsule 2-0 -12 00:00: 00 Yes [id number] 40mg Take 1 capsule by mouth 2 (two) times daily. [facility] omeprazole 40 mg capsule 2021-0 -12 00:00: 00 Yes [id number] 40mg Take 1 capsule by mouth 2 (two) times daily. [facility]ole [facility] mg capsule 2-0 -12 00:00: 00 Yes [id number] 40mg Take 1 capsule by mouth 2 (two) times daily. [facility] omeprazole 40 mg capsule 2021-0 -12 00:00: 00 Yes [id number] 40mg Take 1 capsule by mouth 2 (two) times daily. [facility] mg capsule 2-0 -12 00:00: 00 Yes [id number] 40mg Take 1 capsule by mouth 2 (two) times daily. [facility] omeprazole 40 mg capsule 2-0 -12 00:00: 00 Yes [id number] 40mg Take 1 capsule by mouth 2 (two) times daily. [facility] omeprazole 40 mg capsule 2-0 -12 00:00: 00 Yes [id number] 40mg Take 1 capsule by mouth 2 (two) times daily. [facility] omeprazole 40 mg capsule 2-0 -12 00:00: 00 Yes [id number] 40mg Take 1 capsule by mouth 2 (two) times daily. [facility] omeprazole 40 mg capsule 2-0 -12 00:00: 00 Yes [id number] 40mg Take 1 capsule by mouth 2 (two) times daily. [facility] mg capsule 2-0 1-12 00:00: 00 Yes [id number] 40mg Take 1 capsule by mouth 2 (two) times daily. [facility] omeprazole 40 mg capsule 2-0 1-12 00:00: 00 Yes [id number] 40mg Take 1 capsule by mouth 2 (two) times daily. [facility] om[facility]ole [facility] mg capsule 2-0 -12 00:00: 00 Yes [id number] 40mg Take 1 capsule by mouth 2 (two) times daily. [facility] om[facility]ole 40 mg capsule 2-0 -12 00:00: 00 Yes [id number] 40mg Take 1 capsule by mouth 2 (two) times daily. [facility] omeprazole 40 mg capsule 2-0 -12 00:00: 00 Yes [id number] 40mg Take 1 capsule by mouth 2 (two) times daily. [facility] omeprazole 40 mg capsule 2-0 -12 00:00: 00 Yes [id number] 40mg Take 1 capsule by mouth 2 (two) times daily. [facility] omeprazole 40 mg capsule 2-0 12 00:00: 00 Yes [id number] 40mg Take 1 capsule by mouth 2 (two) times daily. [facility] omeprazole 40 mg capsule 2-0 -12 00:00: 00 Yes [id number] 40mg Take 1 capsule by mouth 2 (two) times daily. [facility] omeprazole 40 mg capsule 2-0 1-12 00:00: 00 Yes [id number] 40mg Take 1 capsule by mouth 2 (two) times daily. [facility] omeprazole 40 mg capsule 2-0 1-12 00:00: 00 Yes [id number] 40mg Take 1 capsule by mouth 2 (two) times daily. [facility] omeprazole 40 mg capsule 2-0 1-12 00:00: 00 Yes [id number] 40mg Take 1 capsule by mouth 2 (two) times daily. [facility] mg capsule 2-0 1-12 00:00: 00 Yes [id number] 40mg Take 1 capsule by mouth 2 (two) times daily. [facility] omeprazole 40 mg capsule 2-0 1-12 00:00: 00 Yes [id number] 40mg Take 1 capsule by mouth 2 (two) times daily. [facility]ole [facility] mg capsule 2-0 1-12 00:00: 00 Yes [id number] 40mg Take 1 capsule by mouth 2 (two) times daily. [facility] omeprazole 40 mg capsule 2-0 -12 00:00: 00 Yes [id number] 40mg Take 1 capsule by mouth 2 (two) times daily. [facility] omeprazole 40 mg capsule 2-0 -12 00:00: 00 Yes [id number] 40mg Take 1 capsule by mouth 2 (two) times daily. [facility] omeprazole 40 mg capsule 2-0 -12 00:00: 00 Yes [id number] 40mg Take 1 capsule by mouth 2 (two) times daily. [facility] omeprazole 40 mg capsule 2-0 -12 00:00: 00 Yes [id number] 40mg Take 1 capsule by mouth 2 (two) times daily. [facility] omeprazole 40 mg capsule 2-0 -12 00:00: 00 Yes [id number] 40mg Take 1 capsule by mouth 2 (two) times daily. [facility] omeprazole 40 mg capsule 2-0 -12 00:00: 00 Yes [id number] 40mg Take 1 capsule by mouth 2 (two) times daily. [facility] omeprazole 40 mg capsule 2-0 -12 00:00: 00 Yes [id number] 40mg Take 1 capsule by mouth 2 (two) times daily. [facility] omeprazole 40 mg capsule 2-0 -12 00:00: 00 Yes [id number] 40mg Take 1 capsule by mouth 2 (two) times daily. [facility] omeprazole 40 mg capsule 2022-0 1-12 00:00: 00 Yes [id number] 40mg Take 1 capsule by mouth 2 (two) times daily. [facility] omeprazole 40 mg capsule 2-0 1-12 00:00: 00 Yes [id number] 40mg Take 1 capsule by mouth 2 (two) times daily. [facility] om[facility]ole 40 mg capsule 2-0 1-12 00:00: 00 Yes [id number] 40mg Take 1 capsule by mouth 2 (two) times daily. [facility] om[facility]ole 40 mg capsule 2-0 -12 00:00: 00 Yes [id number] 40mg Take 1 capsule by mouth 2 (two) times daily. [facility] omeprazole 40 mg capsule 2-0 -12 00:00: 00 Yes [id number] 40mg Take 1 capsule by mouth 2 (two) times daily. [facility] omeprazole 40 mg capsule 2-0 -12 00:00: 00 Yes [id number] 40mg Take 1 capsule by mouth 2 (two) times daily. [facility] omeprazole 40 mg capsule 2-0 -12 00:00: 00 Yes [id number] 40mg Take 1 capsule by mouth 2 (two) times daily. [facility] omeprazole 40 mg capsule 2-0 -12 00:00: 00 Yes [id number] 40mg Take 1 capsule by mouth 2 (two) times daily. [facility] omeprazole 40 mg capsule 2-0 -12 00:00: 00 Yes [id number] 40mg Take 1 capsule by mouth 2 (two) times daily. [facility] omeprazole 40 mg capsule 2-0 -12 00:00: 00 Yes [id number] 40mg Take 1 capsule by mouth 2 (two) times daily. [facility] omeprazole 40 mg capsule 2-0 -12 00:00: 00 Yes [id number] 40mg Take 1 capsule by mouth 2 (two) times daily. [facility] omeprazole 40 mg capsule 2-0 -12 00:00: 00 Yes [id number] 40mg Take 1 capsule by mouth 2 (two) times daily. [facility] omeprazole 40 mg capsule 2-0 1-12 00:00: 00 Yes [id number] 40mg Take 1 capsule by mouth 2 (two) times daily. [facility] om[facility]ole [facility] mg capsule 2-0 1-12 00:00: 00 Yes [id number] 40mg Take 1 capsule by mouth 2 (two) times daily. [facility] om[facility]razole 40 mg capsule 2-0 1-12 00:00: 00 Yes [id number] 40mg Take 1 capsule by mouth 2 (two) times daily. [facility] om[facility]razole 40 mg capsule 2-0 1-12 00:00: 00 Yes [id number] 40mg Take 1 capsule by mouth 2 (two) times daily. [facility] om[facility]razole 40 mg capsule 2-0 1-12 00:00: 00 Yes [id number] 40mg Take 1 capsule by mouth 2 (two) times daily. [facility] omeprazole 40 mg capsule 2-0 1-12 00:00: 00 Yes [id number] 40mg Take 1 capsule by mouth 2 (two) times daily. [facility] omeprazole 40 mg capsule 2-0 1-12 00:00: 00 Yes [id number] 40mg Take 1 capsule by mouth 2 (two) times daily. [facility] omeprazole 40 mg capsule 2-0 -12 00:00: 00 Yes [id number] 40mg Take 1 capsule by mouth 2 (two) times daily. [facility] omeprazole 40 mg capsule 2-0 1-12 00:00: 00 Yes [id number] 40mg Take 1 capsule by mouth 2 (two) times daily. [facility] omeprazole 40 mg capsule 2-0 1-12 00:00: 00 Yes [id number] 40mg Take 1 capsule by mouth 2 (two) times daily. [facility] omeprazole 40 mg capsule 2-0 1-12 00:00: 00 Yes [id number] 40mg Take 1 capsule by mouth 2 (two) times daily. [facility] omeprazole 40 mg capsule 2-0 1-12 00:00: 00 Yes [id number] 40mg Take 1 capsule by mouth 2 (two) times daily. [facility] omeprazole 40 mg capsule 02-18 00:00: 00 Yes [id number] 40mg Take 1 capsule by mouth 2 (two) times daily. [facility] omeprazole 40 mg capsule 02-18 00:00: 00 Yes [id number] 40mg Take 1 capsule by mouth 2 (two) times daily. [facility] omeprazole 40 mg capsule 02-18 00:00: 00 Yes [id number] 40mg Take 1 capsule by mouth 2 (two) times daily. [facility] omeprazole 40 mg capsule 02-18 00:00: 00 Yes [id number] 40mg Take 1 capsule by mouth 2 (two) times daily. [facility] omeprazole 40 mg capsule 02-18 00:00: 00 Yes [id number] 40mg Take 1 capsule by mouth 2 (two) times daily. [facility] amitriptyli ne 100 mg tablet 2020-02 00:00: 00 Yes 1{tbl} 1 tablet at bedtime. Takes total of 125mg [facility] amitriptyli ne 100 mg tablet 2020-02 00:00: 00 Yes 1{tbl} 1 tablet at bedtime. Takes total of 125mg [facility] amitriptyli ne 100 mg tablet 2020-02 00:00: 00 Yes 1{tbl} 1 tablet at bedtime. Takes total of 125mg [facility] amitriptyli ne 100 mg tablet 2020-02 00:00: 00 Yes 1{tbl} 1 tablet at bedtime. Takes total of 125mg [facility] amitriptyli ne 100 mg tablet 2020-02 00:00: 00 Yes 1{tbl} 1 tablet at bedtime. Takes total of 125mg [facility] amitriptyli ne 100 mg tablet 2020-02 00:00: 00 Yes 1{tbl} 1 tablet at bedtime. Takes total of 125mg [facility] amitriptyli ne 100 mg tablet 2020-02 00:00: 00 Yes 1{tbl} 1 tablet at bedtime. Takes total of 125mg [facility] amitriptyli ne 100 mg tablet 2020-02 00:00: 00 Yes 1{tbl} 1 tablet at bedtime. Takes total of 125mg [facility] amitriptyli ne 100 mg tablet 2020-02 00:00: 00 Yes 1{tbl} 1 tablet at bedtime. Takes total of 125mg [facility] amitriptyli ne 100 mg tablet 2020-02 00:00: 00 Yes 1{tbl} 1 tablet at bedtime. Takes total of 125mg [facility] amitriptyli ne 100 mg tablet 2020-02 00:00: 00 Yes 1{tbl} 1 tablet at bedtime. Takes total of 125mg [facility] amitriptyli ne 100 mg tablet 2020-02 00:00: 00 Yes 1{tbl} 1 tablet at bedtime. Takes total of 125mg [facility] amitriptyli ne 100 mg tablet 2020-02 00:00: 00 Yes 1{tbl} 1 tablet at bedtime. Takes total of 125mg [facility] amitriptyli ne 100 mg tablet 2020-02 00:00: 00 Yes 1{tbl} 1 tablet at bedtime. Takes total of 125mg [facility] amitriptyli ne 100 mg tablet 2020-02 00:00: 00 Yes 1{tbl} 1 tablet at bedtime. Takes total of 125mg [facility] amitriptyli ne 100 mg tablet 2020-02 00:00: 00 Yes 1{tbl} 1 tablet at bedtime. Takes total of 125mg [facility] amitriptyli ne 100 mg tablet 2020-02 00:00: 00 Yes 1{tbl} 1 tablet at bedtime. Takes total of 125mg [facility] amitriptyli ne 100 mg tablet 2020-02 00:00: 00 Yes 1{tbl} 1 tablet at bedtime. Takes total of 125mg [facility] amitriptyli ne 100 mg tablet 2020-02 00:00: 00 Yes 1{tbl} 1 tablet at bedtime. Takes total of 125mg [facility] amitriptyli ne 100 mg tablet 2020-02 00:00: 00 Yes 1{tbl} 1 tablet at bedtime. Takes total of 125mg [facility] amitriptyli ne 100 mg tablet 2020-02 00:00: 00 Yes 1{tbl} 1 tablet at bedtime. Takes total of 125mg [facility] amitriptyli ne 100 mg tablet 2020-02 00:00: 00 Yes 1{tbl} 1 tablet at bedtime. Takes total of 125mg [facility] amitriptyli ne 100 mg tablet 2020-02 00:00: 00 Yes 1{tbl} 1 tablet at bedtime. Takes total of 125mg [facility] amitriptyli ne 100 mg tablet 2020-02 00:00: 00 Yes 1{tbl} 1 tablet at bedtime. Takes total of 125mg [facility] amitriptyli ne 100 mg tablet 2020-02 00:00: 00 Yes 1{tbl} 1 tablet at bedtime. Takes total of 125mg [facility] amitriptyli ne 100 mg tablet 2020-02 00:00: 00 Yes 1{tbl} 1 tablet at bedtime. Takes total of 125mg [facility] amitriptyli ne 100 mg tablet 2020-02 00:00: 00 Yes 1{tbl} 1 tablet at bedtime. Takes total of 125mg [facility] amitriptyli ne 100 mg tablet 2020-02 00:00: 00 Yes 1{tbl} 1 tablet at bedtime. Takes total of 125mg [facility] amitriptyli ne 100 mg tablet 2020-02 00:00: 00 Yes 1{tbl} 1 tablet at bedtime. Takes total of 125mg [facility] amitriptyli ne 100 mg tablet 2020-02 00:00: 00 Yes 1{tbl} 1 tablet at bedtime. Takes total of 125mg [facility] amitriptyli ne 100 mg tablet 2020-02 00:00: 00 Yes 1{tbl} 1 tablet at bedtime. Takes total of 125mg [facility] amitriptyli ne 100 mg tablet 2020-02 00:00: 00 Yes 1{tbl} 1 tablet at bedtime. Takes total of 125mg [facility] amitriptyli ne 100 mg tablet 2020-02 00:00: 00 Yes 1{tbl} 1 tablet at bedtime. Takes total of 125mg [facility] amitriptyli ne 100 mg tablet 2020-02 00:00: 00 Yes 1{tbl} 1 tablet at bedtime. Takes total of 125mg [facility] amitriptyli ne 100 mg tablet 2020-02 00:00: 00 Yes 1{tbl} 1 tablet at bedtime. Takes total of 125mg [facility] amitriptyli ne 100 mg tablet 2020-02 00:00: 00 Yes 1{tbl} 1 tablet at bedtime. Takes total of 125mg [facility] amitriptyli ne 100 mg tablet 2020-02 00:00: 00 Yes 1{tbl} 1 tablet at bedtime. Takes total of 125mg [facility] amitriptyli ne 100 mg tablet 2020-02 00:00: 00 Yes 1{tbl} 1 tablet at bedtime. Takes total of 125mg [facility] amitriptyli ne 100 mg tablet 2020-02 00:00: 00 Yes 1{tbl} 1 tablet at bedtime. Takes total of 125mg [facility] amitriptyli ne 100 mg tablet 2020-02 00:00: 00 Yes 1{tbl} 1 tablet at bedtime. Takes total of 125mg [facility] amitriptyli ne 100 mg tablet 2020-02 00:00: 00 Yes 1{tbl} 1 tablet at bedtime. Takes total of 125mg [facility] amitriptyli ne 100 mg tablet 2020-02 00:00: 00 Yes 1{tbl} 1 tablet at bedtime. Takes total of 125mg [facility] amitriptyli ne 100 mg tablet 2020-02 00:00: 00 Yes 1{tbl} 1 tablet at bedtime. Takes total of 125mg [facility] amitriptyli ne 100 mg tablet 2020-02 00:00: 00 Yes 1{tbl} 1 tablet at bedtime. Takes total of 125mg [facility] amitriptyli ne 100 mg tablet 2020-02 00:00: 00 Yes 1{tbl} 1 tablet at bedtime. Takes total of 125mg [facility] amitriptyli ne 100 mg tablet 2020-02 00:00: 00 Yes 1{tbl} 1 tablet at bedtime. Takes total of 125mg [facility] amitriptyli ne 100 mg tablet 2020-02 00:00: 00 Yes 1{tbl} 1 tablet at bedtime. Takes total of 125mg [facility] amitriptyli ne 100 mg tablet 2020-02 00:00: 00 Yes 1{tbl} 1 tablet at bedtime. Takes total of 125mg [facility] amitriptyli ne 100 mg tablet 2020-02 00:00: 00 Yes 1{tbl} 1 tablet at bedtime. Takes total of 125mg [facility] amitriptyli ne 100 mg tablet 2020-02 00:00: 00 Yes 1{tbl} 1 tablet at bedtime. Takes total of 125mg [facility] amitriptyli ne 100 mg tablet 2020-02 00:00: 00 Yes 1{tbl} 1 tablet at bedtime. Takes total of 125mg [facility] amitriptyli ne 100 mg tablet 2020-02 00:00: 00 Yes 1{tbl} 1 tablet at bedtime. Takes total of 125mg [facility] amitriptyli ne 100 mg tablet 2020-02 00:00: 00 Yes 1{tbl} 1 tablet at bedtime. Takes total of 125mg [facility] amitriptyli ne 100 mg tablet 2020-02 00:00: 00 Yes 1{tbl} 1 tablet at bedtime. Takes total of 125mg [facility] amitriptyli ne 100 mg tablet 2020-02 00:00: 00 Yes 1{tbl} 1 tablet at bedtime. Takes total of 125mg [facility] amitriptyli ne 100 mg tablet 2020-02 00:00: 00 Yes 1{tbl} 1 tablet at bedtime. Takes total of 125mg [facility] amitriptyli ne 100 mg tablet 2020-02 00:00: 00 Yes 1{tbl} 1 tablet at bedtime. Takes total of 125mg [facility] amitriptyli ne 100 mg tablet 2020-02 00:00: 00 Yes 1{tbl} 1 tablet at bedtime. Takes total of 125mg [facility] amitriptyli ne 100 mg tablet 2020-02 00:00: 00 Yes 1{tbl} 1 tablet at bedtime. Takes total of 125mg [facility] amitriptyli ne 100 mg tablet 2020-02 00:00: 00 Yes 1{tbl} 1 tablet at bedtime. Takes total of 125mg [facility] amitriptyli ne 100 mg tablet 2020-02 00:00: 00 Yes 1{tbl} 1 tablet at bedtime. Takes total of 125mg [facility] amitriptyli ne 100 mg tablet 2020-02 00:00: 00 Yes 1{tbl} 1 tablet at bedtime. Takes total of 125mg [facility] amitriptyli ne 100 mg tablet 2020-02 00:00: 00 Yes 1{tbl} 1 tablet at bedtime. Takes total of 125mg [facility] amitriptyli ne 100 mg tablet 2020-02 00:00: 00 Yes 1{tbl} 1 tablet at bedtime. Takes total of 125mg [facility] amitriptyli ne 100 mg tablet 2020-02 00:00: 00 Yes 1{tbl} 1 tablet at bedtime. Takes total of 125mg [facility] amitriptyli ne 100 mg tablet 2020-02 00:00: 00 Yes 1{tbl} 1 tablet at bedtime. Takes total of 125mg [facility] amitriptyli ne 100 mg tablet 2020-02 00:00: 00 Yes 1{tbl} 1 tablet at bedtime. Takes total of 125mg [facility] amitriptyli ne 100 mg tablet 2020-02 00:00: 00 Yes 1{tbl} 1 tablet at bedtime. Takes total of 125mg [facility] amitriptyli ne 100 mg tablet 2020-02 00:00: 00 Yes 1{tbl} 1 tablet at bedtime. Takes total of 125mg [facility] amitriptyli ne 100 mg tablet 2020-02 00:00: 00 Yes 1{tbl} 1 tablet at bedtime. Takes total of 125mg [facility] amitriptyli ne 100 mg tablet 2020-02 00:00: 00 Yes 1{tbl} 1 tablet at bedtime. Takes total of 125mg [facility] amitriptyli ne 100 mg tablet 2020-02 00:00: 00 Yes 1{tbl} 1 tablet at bedtime. Takes total of 125mg [facility] amitriptyli ne 100 mg tablet 2020-02 00:00: 00 Yes 1{tbl} 1 tablet at bedtime. Takes total of 125mg [facility] amitriptyli ne 100 mg tablet 2020-02 00:00: 00 Yes 1{tbl} 1 tablet at bedtime. Takes total of 125mg [facility] amitriptyli ne 100 mg tablet 2020-02 00:00: 00 Yes 1{tbl} 1 tablet at bedtime. Takes total of 125mg [facility] amitriptyli ne 100 mg tablet 2020-02 00:00: 00 Yes 1{tbl} 1 tablet at bedtime. Takes total of 125mg [facility] amitriptyli ne 100 mg tablet 2020-02 00:00: 00 Yes 1{tbl} 1 tablet at bedtime. Takes total of 125mg [facility] amitriptyli ne 100 mg tablet 2020-02 00:00: 00 Yes 1{tbl} 1 tablet at bedtime. Takes total of 125mg [facility] amitriptyli ne 100 mg tablet 2020-02 00:00: 00 Yes 1{tbl} 1 tablet at bedtime. Takes total of 125mg [facility] amitriptyli ne 100 mg tablet 2020-02 00:00: 00 Yes 1{tbl} 1 tablet at bedtime. Takes total of 125mg [facility] amitriptyli ne 100 mg tablet 2020-02 00:00: 00 Yes 1{tbl} 1 tablet at bedtime. Takes total of 125mg [facility] amitriptyli ne 100 mg tablet 2020-02 00:00: 00 Yes 1{tbl} 1 tablet at bedtime. Takes total of 125mg [facility] amitriptyli ne 100 mg tablet 2020-02 00:00: 00 Yes 1{tbl} 1 tablet at bedtime. Takes total of 125mg [facility] amitriptyli ne 100 mg tablet 2020-02 00:00: 00 Yes 1{tbl} 1 tablet at bedtime. Takes total of 125mg [facility] amitriptyli ne 100 mg tablet 2020-02 00:00: 00 Yes 1{tbl} 1 tablet at bedtime. Takes total of 125mg [facility] amitriptyli ne 100 mg tablet 2020-02 00:00: 00 Yes 1{tbl} 1 tablet at bedtime. Takes total of 125mg [facility] amitriptyli ne 100 mg tablet 2020-02 00:00: 00 Yes 1{tbl} 1 tablet at bedtime. Takes total of 125mg [facility] amitriptyli ne 100 mg tablet 2020-02 00:00: 00 Yes 1{tbl} 1 tablet at bedtime. Takes total of 125mg [facility] clopidogreL 75 mg tablet 2020-02 00:00: 00 Yes 1{tbl} 1 tablet daily. [facility] clopidogreL 75 mg tablet 2020-02 00:00: 00 Yes 1{tbl} 1 tablet daily. [facility] clopidogreL 75 mg tablet 2020-02 00:00: 00 Yes 1{tbl} 1 tablet daily. [facility] clopidogreL 75 mg tablet 2020-02 00:00: 00 Yes 1{tbl} 1 tablet daily. [facility] clopidogreL 75 mg tablet 2020-02 00:00: 00 Yes 1{tbl} 1 tablet daily. [facility] clopidogreL 75 mg tablet 2020-02 00:00: 00 Yes 1{tbl} 1 tablet daily. [facility] clopidogreL 75 mg tablet 2020-02 00:00: 00 Yes 1{tbl} 1 tablet daily. [facility] clopidogreL 75 mg tablet 2020-02 00:00: 00 Yes 1{tbl} 1 tablet daily. [facility] clopidogreL 75 mg tablet 2020-02 00:00: 00 Yes 1{tbl} 1 tablet daily. [facility] clopidogreL 75 mg tablet 2020-02 00:00: 00 Yes 1{tbl} 1 tablet daily. [facility] clopidogreL 75 mg tablet 2020-02 00:00: 00 Yes 1{tbl} 1 tablet daily. [facility] cl[facility] mg tablet 2020-02 00:00: 00 Yes 1{tbl} 1 tablet daily. [facility] clopidogreL 75 mg tablet 2020-02 00:00: 00 Yes 1{tbl} 1 tablet daily. [facility] clop[facility] mg tablet 2020-02 00:00: 00 Yes 1{tbl} 1 tablet daily. [facility] clopidogreL 75 mg tablet 2020-02 00:00: 00 Yes 1{tbl} 1 tablet daily. [facility] clopidogreL 75 mg tablet 2020-02 00:00: 00 Yes 1{tbl} 1 tablet daily. [facility] clopidogreL 75 mg tablet 2020-02 00:00: 00 Yes 1{tbl} 1 tablet daily. [facility] clopidogreL 75 mg tablet 2020-02 00:00: 00 Yes 1{tbl} 1 tablet daily. [facility] clopidogreL 75 mg tablet 2020-02 00:00: 00 Yes 75mg Take 1 tablet in the morning. [facility] clopidogreL 75 mg tablet 2020-02 00:00: 00 Yes 75mg Take 1 tablet in the morning. [facility] clopidogreL 75 mg tablet 2020-02 00:00: 00 Yes 75mg Take 1 tablet in the morning. [facility] clopidogreL 75 mg tablet 2020-02 00:00: 00 Yes 75mg Take 1 tablet in the morning. [facility] clopidogreL 75 mg tablet 2020-02 00:00: 00 Yes 75mg Take 1 tablet in the morning. [facility] clopidogreL 75 mg tablet 2020-02 00:00: 00 Yes 75mg Take 1 tablet in the morning. [facility] clopidogreL 75 mg tablet 2020-02 00:00: 00 Yes 75mg Take 1 tablet in the morning. [facility] clopidogreL 75 mg tablet 2020-02 00:00: 00 Yes 75mg Take 1 tablet in the morning. [facility] clopidogreL 75 mg tablet 2020-02 00:00: 00 Yes 75mg Take 1 tablet in the morning. [facility] clopidogreL 75 mg tablet 2020-02 00:00: 00 Yes 75mg Take 1 tablet in the morning. [facility] clopidogreL 75 mg tablet 2020-02 00:00: 00 Yes 75mg Take 1 tablet in the morning. [facility] clopidogreL 75 mg tablet 2020-02 00:00: 00 Yes 75mg Take 1 tablet in the morning. [facility] clopidogreL 75 mg tablet 2020-02 00:00: 00 Yes 75mg Take 1 tablet in the morning. [facility] clopidogreL 75 mg tablet 2020-02 00:00: 00 Yes 75mg Take 1 tablet in the morning. [facility] clopidogreL 75 mg tablet 2020-02 00:00: 00 Yes 75mg Take 1 tablet in the morning. [facility] clopidogreL 75 mg tablet 2020-02 00:00: 00 Yes 75mg Take 1 tablet in the morning. [facility] clopidogreL 75 mg tablet 2020-02 00:00: 00 Yes 75mg Take 1 tablet in the morning. [facility] clopidogreL 75 mg tablet 2020-02 00:00: 00 Yes 75mg Take 1 tablet in the morning. [facility] clopidogreL 75 mg tablet 2020-02 00:00: 00 Yes 75mg Take 1 tablet in the morning. [facility] clopidogreL 75 mg tablet 2020-02 00:00: 00 Yes 75mg Take 1 tablet in the morning. [facility] clopidogreL 75 mg tablet 2020-02 00:00: 00 Yes 75mg Take 1 tablet in the morning. [facility] clopidogreL 75 mg tablet 2020-02 00:00: 00 Yes 75mg Take 1 tablet in the morning. [facility] clopidogreL 75 mg tablet 2020-02 00:00: 00 Yes 75mg Take 1 tablet in the morning. [facility] clopidogreL 75 mg tablet 2020-02 00:00: 00 Yes 75mg Take 1 tablet in the morning. [facility] clopidogreL 75 mg tablet 2020-02 00:00: 00 Yes 75mg Take 1 tablet in the morning. [facility] clopidogreL 75 mg tablet 2020-02 00:00: 00 Yes 75mg Take 1 tablet in the morning. [facility] clopidogreL 75 mg tablet 2020-02 00:00: 00 Yes 75mg Take 1 tablet in the morning. [facility] clopidogreL 75 mg tablet 2020-02 00:00: 00 Yes 75mg Take 1 tablet in the morning. [facility] clopidogreL 75 mg tablet 2020-02 00:00: 00 Yes 75mg Take 1 tablet in the morning. [facility] clopidogreL 75 mg tablet 2020-02 00:00: 00 Yes 75mg Take 1 tablet in the morning. [facility] clopidogreL 75 mg tablet 2020-02 00:00: 00 Yes 75mg Take 1 tablet in the morning. [facility] clopidogreL 75 mg tablet 2020-02 00:00: 00 Yes 75mg Take 1 tablet in the morning. [facility] clopidogreL 75 mg tablet 2020-02 00:00: 00 Yes 75mg Take 1 tablet in the morning. [facility] clopidogreL 75 mg tablet 2020-02 00:00: 00 Yes 75mg Take 1 tablet in the morning. [facility] clopidogreL 75 mg tablet 2020-02 00:00: 00 Yes 75mg Take 1 tablet in the morning. [facility] clopidogreL 75 mg tablet 2020-02 00:00: 00 Yes 75mg Take 1 tablet in the morning. [facility] clopidogreL 75 mg tablet 2020-02 00:00: 00 Yes 75mg Take 1 tablet in the morning. [facility] clopidogreL 75 mg tablet 2020-02 00:00: 00 Yes 75mg Take 1 tablet in the morning. [facility] clopidogreL 75 mg tablet 2020-02 00:00: 00 Yes 75mg Take 1 tablet in the morning. [facility] clopidogreL 75 mg tablet 2020-02 00:00: 00 Yes 75mg Take 1 tablet in the morning. [facility] clopidogreL 75 mg tablet 2020-02 00:00: 00 Yes 75mg Take 1 tablet in the morning. [facility] clopidogreL 75 mg tablet 2020-02 00:00: 00 Yes 75mg Take 1 tablet in the morning. [facility] clopidogreL 75 mg tablet 2020-02 00:00: 00 Yes 75mg Take 1 tablet in the morning. [facility] clopidogreL 75 mg tablet 2020-02 00:00: 00 Yes 75mg Take 1 tablet in the morning. [facility] clopidogreL 75 mg tablet 2020-02 00:00: 00 Yes 75mg Take 1 tablet in the morning. [facility] clopidogreL 75 mg tablet 2020-02 00:00: 00 Yes 75mg Take 1 tablet in the morning. [facility] clopidogreL 75 mg tablet 2020-02 00:00: 00 Yes 75mg Take 1 tablet in the morning. [facility] clopidogreL 75 mg tablet 2020-02 00:00: 00 Yes 75mg Take 1 tablet in the morning. [facility] clopidogreL 75 mg tablet 2020-02 00:00: 00 Yes 75mg Take 1 tablet in the morning. [facility] clopidogreL 75 mg tablet 2020-02 00:00: 00 Yes 75mg Take 1 tablet in the morning. [facility] clopidogreL 75 mg tablet 2020-02 00:00: 00 Yes 75mg Take 1 tablet in the morning. [facility] clopidogreL 75 mg tablet 2020-02 00:00: 00 Yes 75mg Take 1 tablet in the morning. [facility] clopidogreL 75 mg tablet 2020-02 00:00: 00 Yes 75mg Take 1 tablet in the morning. [facility] clopidogreL 75 mg tablet 2020-02 00:00: 00 Yes 75mg Take 1 tablet in the morning. [facility] clopidogreL 75 mg tablet 2020-02 00:00: 00 Yes 75mg Take 1 tablet in the morning. [facility] clopidogreL 75 mg tablet 2020-02 00:00: 00 Yes 75mg Take 1 tablet in the morning. [facility] clopidogreL 75 mg tablet 2020-02 00:00: 00 Yes 75mg Take 1 tablet in the morning. [facility] clopidogreL 75 mg tablet 2020-02 00:00: 00 Yes 75mg Take 1 tablet in the morning. [facility] clopidogreL 75 mg tablet 2020-02 00:00: 00 Yes 75mg Take 1 tablet in the morning. [facility] clopidogreL 75 mg tablet 2020-02 00:00: 00 Yes 75mg Take 1 tablet in the morning. [facility] clopidogreL 75 mg tablet 2020-02 00:00: 00 Yes 75mg Take 1 tablet in the morning. [facility] clopidogreL 75 mg tablet 2020-02 00:00: 00 Yes 75mg Take 1 tablet in the morning. [facility] clopidogreL 75 mg tablet 2020-02 00:00: 00 Yes 75mg Take 1 tablet in the morning. [facility] clopidogreL 75 mg tablet 2020-02 00:00: 00 Yes 75mg Take 1 tablet in the morning. [facility] clopidogreL 75 mg tablet 2020-02 00:00: 00 Yes 75mg Take 1 tablet in the morning. [facility] clopidogreL 75 mg tablet 2020-02 00:00: 00 Yes 75mg Take 1 tablet in the morning. [facility] clopidogreL 75 mg tablet 2020-02 00:00: 00 Yes 75mg Take 1 tablet in the morning. [facility] clopidogreL 75 mg tablet 2020-02 00:00: 00 Yes 75mg Take 1 tablet in the morning. [facility] clopidogreL 75 mg tablet 2020-02 00:00: 00 Yes 75mg Take 1 tablet in the morning. [facility] clopidogreL 75 mg tablet 2020-02 00:00: 00 Yes 75mg Take 1 tablet in the morning. [facility] tiZANidine 2 mg tablet 2020-02 00:00: 00 Yes 1{tbl} 1 tablet at bedtime. [facility] tiZANidine 2 mg tablet 2020-02 00:00: 00 Yes 1{tbl} 1 tablet at bedtime. [facility] tiZANidine 2 mg tablet 2020-02 00:00: 00 Yes 1{tbl} 1 tablet at bedtime. [facility] tiZANidine 2 mg tablet 2020-02 00:00: 00 Yes 1{tbl} 1 tablet at bedtime. [facility] tiZANidine 2 mg tablet 2020-02 00:00: 00 Yes 1{tbl} 1 tablet at bedtime. [facility] tiZANidine 2 mg tablet 2020-02 00:00: 00 Yes 1{tbl} 1 tablet at bedtime. [facility] tiZANidine 2 mg tablet 2020-02 00:00: 00 Yes 1{tbl} 1 tablet at bedtime. [facility] tiZANidine 2 mg tablet 2020-02 00:00: 00 Yes 1{tbl} 1 tablet at bedtime. [facility] tiZANidine 2 mg tablet 2020-02 00:00: 00 Yes 1{tbl} 1 tablet at bedtime. [facility] tiZANidine 2 mg tablet 2020-02 00:00: 00 Yes 1{tbl} 1 tablet at bedtime. [facility] tiZANidine 2 mg tablet 2020-02 00:00: 00 Yes 1{tbl} 1 tablet at bedtime. [facility] tiZANidine 2 mg tablet 2020-02 00:00: 00 Yes 1{tbl} 1 tablet at bedtime. [facility] tiZANidine 2 mg tablet 2020-02 00:00: 00 Yes 1{tbl} 1 tablet at bedtime. [facility] tiZANidine 2 mg tablet 2020-02 00:00: 00 Yes 1{tbl} 1 tablet at bedtime. [facility] tiZANidine 2 mg tablet 2020-02 00:00: 00 Yes 1{tbl} 1 tablet at bedtime. [facility] tiZANidine 2 mg tablet 2020-02 00:00: 00 Yes 1{tbl} 1 tablet at bedtime. [facility] tiZANidine 2 mg tablet 2020-02 00:00: 00 Yes 1{tbl} 1 tablet at bedtime. [facility] tiZANidine 2 mg tablet 2020-02 00:00: 00 Yes 1{tbl} 1 tablet at bedtime. [facility] tiZANidine 2 mg tablet 2020-02 00:00: 00 Yes 1{tbl} 1 tablet at bedtime. [facility] tiZANidine 2 mg tablet 2020-02 00:00: 00 Yes 1{tbl} 1 tablet at bedtime. [facility] tiZANidine 2 mg tablet 2020-02 00:00: 00 Yes 1{tbl} 1 tablet at bedtime. [facility] tiZANidine 2 mg tablet 2020-02 00:00: 00 Yes 1{tbl} 1 tablet at bedtime. [facility] tiZANidine 2 mg tablet 2020-02 00:00: 00 Yes 2mg 1 tablet at bedtime. [facility] tiZANidine 2 mg tablet 2020-02 00:00: 00 Yes 2mg 1 tablet at bedtime. [facility] tiZANidine 2 mg tablet 2020-02 00:00: 00 Yes 2mg 1 tablet at bedtime. [facility] tiZANidine 2 mg tablet 2020-02 00:00: 00 Yes 2mg 1 tablet at bedtime. [facility] tiZANidine 2 mg tablet 2020-02 00:00: 00 Yes 2mg 1 tablet at bedtime. [facility] tiZANidine 2 mg tablet 2020-02 00:00: 00 Yes 2mg 1 tablet at bedtime. [facility] tiZANidine 2 mg tablet 2020-02 00:00: 00 Yes 2mg 1 tablet at bedtime. [facility] tiZANidine 2 mg tablet 2020-02 00:00: 00 Yes 2mg 1 tablet at bedtime. [facility] tiZANidine 2 mg tablet 2020-02 00:00: 00 Yes 2mg 1 tablet at bedtime. [facility] tiZANidine 2 mg tablet 2020-02 00:00: 00 Yes 2mg 1 tablet at bedtime. [facility] tiZANidine 2 mg tablet 2020-02 00:00: 00 Yes 2mg 1 tablet at bedtime. [facility] tiZANidine 2 mg tablet 2020-02 00:00: 00 Yes 2mg 1 tablet at bedtime. [facility] tiZANidine 2 mg tablet 2020-02 00:00: 00 Yes 2mg 1 tablet at bedtime. [facility] tiZANidine 2 mg tablet 2020-02 00:00: 00 Yes 2mg 1 tablet at bedtime. [facility] tiZANidine 2 mg tablet 2020-02 00:00: 00 Yes 2mg 1 tablet at bedtime. [facility] tiZANidine 2 mg tablet 2020-02 00:00: 00 Yes 2mg 1 tablet at bedtime. [facility] tiZANidine 2 mg tablet 2020-02 00:00: 00 Yes 2mg 1 tablet at bedtime. [facility] tiZANidine 2 mg tablet 2020-02 00:00: 00 Yes 2mg 1 tablet at bedtime. [facility] tiZANidine 2 mg tablet 2020-02 00:00: 00 Yes 2mg 1 tablet at bedtime. [facility] tiZANidine 2 mg tablet 2020-02 00:00: 00 Yes 2mg 1 tablet at bedtime. [facility] tiZANidine 2 mg tablet 2020-02 00:00: 00 Yes 2mg 1 tablet at bedtime. [facility] tiZANidine 2 mg tablet 2020-02 00:00: 00 Yes 2mg 1 tablet at bedtime. [facility] tiZANidine 2 mg tablet 2020-02 00:00: 00 Yes 2mg 1 tablet at bedtime. [facility] tiZANidine 2 mg tablet 2020-02 00:00: 00 Yes 2mg 1 tablet at bedtime. [facility] tiZANidine 2 mg tablet 2020-02 00:00: 00 Yes 2mg 1 tablet at bedtime. [facility] tiZANidine 2 mg tablet 2020-02 00:00: 00 Yes 2mg 1 tablet at bedtime. [facility] tiZANidine 2 mg tablet 2020-02 00:00: 00 Yes 2mg 1 tablet at bedtime. [facility] tiZANidine 2 mg tablet 2020-02 00:00: 00 Yes 2mg 1 tablet at bedtime. [facility] tiZANidine 2 mg tablet 2020-02 00:00: 00 Yes 2mg 1 tablet at bedtime. [facility] tiZANidine 2 mg tablet 2020-02 00:00: 00 Yes 2mg 1 tablet at bedtime. [facility] tiZANidine 2 mg tablet 2020-02 00:00: 00 Yes 2mg 1 tablet at bedtime. [facility] tiZANidine 2 mg tablet 2020-02 00:00: 00 Yes 2mg 1 tablet at bedtime. [facility] tiZANidine 2 mg tablet 2020-02 00:00: 00 Yes 2mg 1 tablet at bedtime. [facility] tiZANidine 2 mg tablet 2020-02 00:00: 00 Yes 2mg 1 tablet at bedtime. [facility] tiZANidine 2 mg tablet 2020-02 00:00: 00 Yes 2mg 1 tablet at bedtime. [facility] tiZANidine 2 mg tablet 2020-02 00:00: 00 Yes 2mg 1 tablet at bedtime. [facility] tiZANidine 2 mg tablet 2020-02 00:00: 00 Yes 2mg 1 tablet at bedtime. [facility] tiZANidine 2 mg tablet 2020-02 00:00: 00 Yes 2mg 1 tablet at bedtime. [facility] tiZANidine 2 mg tablet 2020-02 00:00: 00 Yes 2mg 1 tablet at bedtime. [facility] tiZANidine 2 mg tablet 2020-02 00:00: 00 Yes 2mg 1 tablet at bedtime. [facility] tiZANidine 2 mg tablet 2020-02 00:00: 00 Yes 2mg 1 tablet at bedtime. [facility] tiZANidine 2 mg tablet 2020-02 00:00: 00 Yes 2mg 1 tablet at bedtime. [facility] tiZANidine 2 mg tablet 2020-02 00:00: 00 Yes 2mg 1 tablet at bedtime. [facility] tiZANidine 2 mg tablet 2020-02 00:00: 00 Yes 2mg 1 tablet at bedtime. [facility] tiZANidine 2 mg tablet 2020-02 00:00: 00 Yes 2mg 1 tablet at bedtime. [facility] tiZANidine 2 mg tablet 2020-02 00:00: 00 Yes 2mg 1 tablet at bedtime. [facility] tiZANidine 2 mg tablet 2020-02 00:00: 00 Yes 2mg 1 tablet at bedtime. [facility] tiZANidine 2 mg tablet 2020-02 00:00: 00 Yes 2mg 1 tablet at bedtime. [facility] tiZANidine 2 mg tablet 2020-02 00:00: 00 Yes 2mg 1 tablet at bedtime. [facility] tiZANidine 2 mg tablet 2020-02 00:00: 00 Yes 2mg 1 tablet at bedtime. [facility] tiZANidine 2 mg tablet 2020-02 00:00: 00 Yes 2mg 1 tablet at bedtime. [facility] tiZANidine 2 mg tablet 2020-02 00:00: 00 Yes 2mg 1 tablet at bedtime. [facility] tiZANidine 2 mg tablet 2020-02 00:00: 00 Yes 2mg 1 tablet at bedtime. [facility] tiZANidine 2 mg tablet 2020-02 00:00: 00 Yes 2mg 1 tablet at bedtime. [facility] tiZANidine 2 mg tablet 2020-02 00:00: 00 Yes 2mg 1 tablet at bedtime. [facility] tiZANidine 2 mg tablet 2020-02 00:00: 00 Yes 2mg 1 tablet at bedtime. [facility] tiZANidine 2 mg tablet 2020-02 00:00: 00 Yes 2mg 1 tablet at bedtime. [facility] tiZANidine 2 mg tablet 2020-02 00:00: 00 Yes 2mg 1 tablet at bedtime. [facility] tiZANidine 2 mg tablet 2020-02 00:00: 00 Yes 2mg 1 tablet at bedtime. [facility] tiZANidine 2 mg tablet 2020-02 00:00: 00 Yes 2mg 1 tablet at bedtime. [facility] tiZANidine 2 mg tablet 2020-02 00:00: 00 Yes 2mg 1 tablet at bedtime. [facility] tiZANidine 2 mg tablet 2020-02 00:00: 00 Yes 2mg 1 tablet at bedtime. [facility] tiZANidine 2 mg tablet 2020-02 00:00: 00 Yes 2mg 1 tablet at bedtime. [facility] tiZANidine 2 mg tablet 2020-02 00:00: 00 Yes 2mg 1 tablet at bedtime. [facility] tiZANidine 2 mg tablet 2020-02 00:00: 00 Yes 2mg 1 tablet at bedtime. [facility] tiZANidine 2 mg tablet 2020-02 00:00: 00 Yes 2mg 1 tablet at bedtime. [facility] atorvastati n 80 mg tablet 2020-02 00:00: 00 Yes 1{tbl} 1 tablet at bedtime. [facility] atorvastati n 80 mg tablet 2020-02 00:00: 00 Yes 1{tbl} 1 tablet at bedtime. [facility] atorvastati n 80 mg tablet 2020-02 00:00: 00 Yes 1{tbl} 1 tablet at bedtime. [facility] atorvastati n 80 mg tablet 2020-02 00:00: 00 Yes 1{tbl} 1 tablet at bedtime. [facility] atorvastati n 80 mg tablet 2020-02 00:00: 00 Yes 1{tbl} 1 tablet at bedtime. [facility] atorvastati n 80 mg tablet 2020-02 00:00: 00 Yes 1{tbl} 1 tablet at bedtime. [facility] atorvastati n 80 mg tablet 2020-02 00:00: 00 Yes 1{tbl} 1 tablet at bedtime. [facility] atorvastati n 80 mg tablet 2020-02 00:00: 00 Yes 1{tbl} 1 tablet at bedtime. [facility] atorvastati n 80 mg tablet 2020-02 00:00: 00 Yes 1{tbl} 1 tablet at bedtime. [facility] atorvastati n 80 mg tablet 2020-02 00:00: 00 Yes 1{tbl} 1 tablet at bedtime. [facility] atorvastati n 80 mg tablet 2020-02 00:00: 00 Yes 1{tbl} 1 tablet at bedtime. [facility] atorvastati n 80 mg tablet 2020-02 00:00: 00 Yes 1{tbl} 1 tablet at bedtime. [facility] atorvastati n 80 mg tablet 2020-02 00:00: 00 Yes 1{tbl} 1 tablet at bedtime. [facility] atorvastati n 80 mg tablet 2020-02 00:00: 00 Yes 1{tbl} 1 tablet at bedtime. [facility] atorvastati n 80 mg tablet 2020-02 00:00: 00 Yes 1{tbl} 1 tablet at bedtime. [facility] atorvastati n 80 mg tablet 2020-02 00:00: 00 Yes 1{tbl} 1 tablet at bedtime. [facility] atorvastati n 80 mg tablet 2020-02 00:00: 00 Yes 1{tbl} 1 tablet at bedtime. [facility] atorvastati n 80 mg tablet 2020-02 00:00: 00 Yes 1{tbl} 1 tablet at bedtime. [facility] atorvastati n 80 mg tablet 2020-02 00:00: 00 Yes 1{tbl} 1 tablet at bedtime. [facility] atorvastati n 80 mg tablet 2020-02 00:00: 00 Yes 1{tbl} 1 tablet at bedtime. [facility] atorvastati n 80 mg tablet 2020-02 00:00: 00 Yes 1{tbl} 1 tablet at bedtime. [facility] atorvastati n 80 mg tablet 2020-02 00:00: 00 Yes 1{tbl} 1 tablet at bedtime. [facility] atorvastati n 80 mg tablet 2020-02 00:00: 00 Yes 1{tbl} 1 tablet at bedtime. [facility] atorvastati n 80 mg tablet 2020-02 00:00: 00 Yes 1{tbl} 1 tablet at bedtime. [facility] atorvastati n 80 mg tablet 2020-02 00:00: 00 Yes 1{tbl} 1 tablet at bedtime. [facility] atorvastati n 80 mg tablet 2020-02 00:00: 00 Yes 1{tbl} 1 tablet at bedtime. [facility] atorvastati n 80 mg tablet 2020-02 00:00: 00 Yes 1{tbl} 1 tablet at bedtime. [facility] atorvastati n 80 mg tablet 2020-02 00:00: 00 Yes 1{tbl} 1 tablet at bedtime. [facility] atorvastati n 80 mg tablet 2020-02 00:00: 00 Yes 1{tbl} 1 tablet at bedtime. [facility] atorvastati n 80 mg tablet 2020-02 00:00: 00 Yes 1{tbl} 1 tablet at bedtime. [facility] atorvastati n 80 mg tablet 2020-02 00:00: 00 Yes 1{tbl} 1 tablet at bedtime. [facility] atorvastati n 80 mg tablet 2020-02 00:00: 00 Yes 1{tbl} 1 tablet at bedtime. [facility] atorvastati n 80 mg tablet 2020-02 00:00: 00 Yes 1{tbl} 1 tablet at bedtime. [facility] atorvastati n 80 mg tablet 2020-02 00:00: 00 Yes 1{tbl} 1 tablet at bedtime. [facility] atorvastati n 80 mg tablet 2020-02 00:00: 00 Yes 1{tbl} 1 tablet at bedtime. [facility] atorvastati n 80 mg tablet 2020-02 00:00: 00 Yes 1{tbl} 1 tablet at bedtime. [facility] atorvastati n 80 mg tablet 2020-02 00:00: 00 Yes 1{tbl} 1 tablet at bedtime. [facility] atorvastati n 80 mg tablet 2020-02 00:00: 00 Yes 1{tbl} 1 tablet at bedtime. [facility] atorvastati n 80 mg tablet 2020-02 00:00: 00 Yes 1{tbl} 1 tablet at bedtime. [facility] atorvastati n 80 mg tablet 2020-02 00:00: 00 Yes 1{tbl} 1 tablet at bedtime. [facility] atorvastati n 80 mg tablet 2020-02 00:00: 00 Yes 1{tbl} 1 tablet at bedtime. [facility] atorvastati n 80 mg tablet 2020-02 00:00: 00 Yes 1{tbl} 1 tablet at bedtime. [facility] atorvastati n 80 mg tablet 2020-02 00:00: 00 Yes 1{tbl} 1 tablet at bedtime. [facility] atorvastati n 80 mg tablet 2020-02 00:00: 00 Yes 1{tbl} 1 tablet at bedtime. [facility] atorvastati n 80 mg tablet 2020-02 00:00: 00 Yes 1{tbl} 1 tablet at bedtime. [facility] atorvastati n 80 mg tablet 2020-02 00:00: 00 Yes 1{tbl} 1 tablet at bedtime. [facility] atorvastati n 80 mg tablet 2020-02 00:00: 00 Yes 1{tbl} 1 tablet at bedtime. [facility] atorvastati n 80 mg tablet 2020-02 00:00: 00 Yes 1{tbl} 1 tablet at bedtime. [facility] atorvastati n 80 mg tablet 2020-02 00:00: 00 Yes 1{tbl} 1 tablet at bedtime. [facility] atorvastati n 80 mg tablet 2020-02 00:00: 00 Yes 1{tbl} 1 tablet at bedtime. [facility] atorvastati n 80 mg tablet 2020-02 00:00: 00 Yes 1{tbl} 1 tablet at bedtime. [facility] atorvastati n 80 mg tablet 2020-02 00:00: 00 Yes 1{tbl} 1 tablet at bedtime. [facility] atorvastati n 80 mg tablet 2020-02 00:00: 00 Yes 1{tbl} 1 tablet at bedtime. [facility] atorvastati n 80 mg tablet 2020-02 00:00: 00 Yes 1{tbl} 1 tablet at bedtime. [facility] atorvastati n 80 mg tablet 2020-02 00:00: 00 Yes 1{tbl} 1 tablet at bedtime. [facility] atorvastati n 80 mg tablet 2020-02 00:00: 00 Yes 1{tbl} 1 tablet at bedtime. [facility] atorvastati n 80 mg tablet 2020-02 00:00: 00 11-09 00:00 :00 No 1{tbl} 1 tablet at bedtime. [facility] atorvastati n 80 mg tablet 2020-02 00:00: 00 11-09 00:00 :00 No 1{tbl} 1 tablet at bedtime. [facility] multivit-mi n/ferrous fumarate (MULTI VITAMIN ORAL) 05-31 00:00: 00 Yes 1{tbl} Take 1 tablet by mouth. [facility] pyridoxine HCl, vitamin B6, (VITAMIN B-6 ORAL) 05-31 00:00: 00 Yes 1{tbl} Take 1 tablet by mouth. [facility] multivit-mi n/ferrous fumarate (MULTI VITAMIN ORAL) 05-31 00:00: 00 Yes 1{tbl} Take 1 tablet by mouth. [facility] pyridoxine HCl, vitamin B6, (VITAMIN B-6 ORAL) 05-31 00:00: 00 Yes 1{tbl} Take 1 tablet by mouth. [facility] multivit-mi n/ferrous fumarate (MULTI VITAMIN ORAL) 05-31 00:00: 00 Yes 1{tbl} Take 1 tablet by mouth. [facility] pyridoxine HCl, vitamin B6, (VITAMIN B-6 ORAL) 05-31 00:00: 00 Yes 1{tbl} Take 1 tablet by mouth. [facility] multivit-mi n/ferrous fumarate (MULTI VITAMIN ORAL) 05-31 00:00: 00 Yes 1{tbl} Take 1 tablet by mouth. [facility] pyridoxine HCl, vitamin B6, (VITAMIN B-6 ORAL) 05-31 00:00: 00 Yes 1{tbl} Take 1 tablet by mouth. [facility] multivit-mi n/ferrous fumarate (MULTI VITAMIN ORAL) 05-31 00:00: 00 Yes 1{tbl} Take 1 tablet by mouth. [facility] pyridoxine HCl, vitamin B6, (VITAMIN B-6 ORAL) 05-31 00:00: 00 Yes 1{tbl} Take 1 tablet by mouth. [facility] multivit-mi n/ferrous fumarate (MULTI VITAMIN ORAL) 05-31 00:00: 00 Yes 1{tbl} Take 1 tablet by mouth. [facility] pyridoxine HCl, vitamin B6, (VITAMIN B-6 ORAL) 05-31 00:00: 00 Yes 1{tbl} Take 1 tablet by mouth. [facility] multivit-mi n/ferrous fumarate (MULTI VITAMIN ORAL) 05-31 00:00: 00 Yes 1{tbl} Take 1 tablet by mouth. [facility] pyridoxine HCl, vitamin B6, (VITAMIN B-6 ORAL) 05-31 00:00: 00 Yes 1{tbl} Take 1 tablet by mouth. [facility] multivit-mi n/ferrous fumarate (MULTI VITAMIN ORAL) 05-31 00:00: 00 Yes 1{tbl} Take 1 tablet by mouth. [facility] pyridoxine HCl, vitamin B6, (VITAMIN B-6 ORAL) 05-31 00:00: 00 Yes 1{tbl} Take 1 tablet by mouth. [facility] multivit-mi n/ferrous fumarate (MULTI VITAMIN ORAL) 05-31 00:00: 00 Yes 1{tbl} Take 1 tablet by mouth. [facility] pyridoxine HCl, vitamin B6, (VITAMIN B-6 ORAL) 05-31 00:00: 00 Yes 1{tbl} Take 1 tablet by mouth. [facility] multivit-mi n/ferrous fumarate (MULTI VITAMIN ORAL) 05-31 00:00: 00 Yes 1{tbl} Take 1 tablet by mouth. [facility] pyridoxine HCl, vitamin B6, (VITAMIN B-6 ORAL) 05-31 00:00: 00 Yes 1{tbl} Take 1 tablet by mouth. [facility] multivit-mi n/ferrous fumarate (MULTI VITAMIN ORAL) 05-31 00:00: 00 Yes 1{tbl} Take 1 tablet by mouth. [facility] pyridoxine HCl, vitamin B6, (VITAMIN B-6 ORAL) 05-31 00:00: 00 Yes 1{tbl} Take 1 tablet by mouth. [facility] multivit-mi n/ferrous fumarate (MULTI VITAMIN ORAL) 05-31 00:00: 00 Yes 1{tbl} Take 1 tablet by mouth. [facility] pyridoxine HCl, vitamin B6, (VITAMIN B-6 ORAL) 05-31 00:00: 00 Yes 1{tbl} Take 1 tablet by mouth. [facility] multivit-mi n/ferrous fumarate (MULTI VITAMIN ORAL) 05-31 00:00: 00 Yes 1{tbl} Take 1 tablet by mouth. [facility] pyridoxine HCl, vitamin B6, (VITAMIN B-6 ORAL) 05-31 00:00: 00 Yes 1{tbl} Take 1 tablet by mouth. [facility] multivit-mi n/ferrous fumarate (MULTI VITAMIN ORAL) 05-31 00:00: 00 Yes 1{tbl} Take 1 tablet by mouth. [facility] pyridoxine HCl, vitamin B6, (VITAMIN B-6 ORAL) 05-31 00:00: 00 Yes 1{tbl} Take 1 tablet by mouth. [facility] multivit-mi n/ferrous fumarate (MULTI VITAMIN ORAL) 05-31 00:00: 00 Yes 1{tbl} Take 1 tablet by mouth. [facility] pyridoxine HCl, vitamin B6, (VITAMIN B-6 ORAL) 05-31 00:00: 00 Yes 1{tbl} Take 1 tablet by mouth. [facility] multivit-mi n/ferrous fumarate (MULTI VITAMIN ORAL) 05-31 00:00: 00 Yes 1{tbl} Take 1 tablet by mouth. [facility] pyridoxine HCl, vitamin B6, (VITAMIN B-6 ORAL) 05-31 00:00: 00 Yes 1{tbl} Take 1 tablet by mouth. [facility] multivit-mi n/ferrous fumarate (MULTI VITAMIN ORAL) 05-31 00:00: 00 Yes 1{tbl} Take 1 tablet by mouth. [facility] pyridoxine HCl, vitamin B6, (VITAMIN B-6 ORAL) 05-31 00:00: 00 Yes 1{tbl} Take 1 tablet by mouth. [facility] multivit-mi n/ferrous fumarate (MULTI VITAMIN ORAL) 05-31 00:00: 00 Yes 1{tbl} Take 1 tablet by mouth. [facility] pyridoxine HCl, vitamin B6, (VITAMIN B-6 ORAL) 05-31 00:00: 00 Yes 1{tbl} Take 1 tablet by mouth. [facility] multivit-mi n/ferrous fumarate (MULTI VITAMIN ORAL) 05-31 00:00: 00 Yes 1{tbl} Take 1 tablet by mouth. [facility] pyridoxine HCl, vitamin B6, (VITAMIN B-6 ORAL) 05-31 00:00: 00 Yes 1{tbl} Take 1 tablet by mouth. [facility] multivit-mi n/ferrous fumarate (MULTI VITAMIN ORAL) 05-31 00:00: 00 Yes 1{tbl} Take 1 tablet by mouth. [facility] pyridoxine HCl, vitamin B6, (VITAMIN B-6 ORAL) 05-31 00:00: 00 Yes 1{tbl} Take 1 tablet by mouth. [facility] multivit-mi n/ferrous fumarate (MULTI VITAMIN ORAL) 05-31 00:00: 00 Yes 1{tbl} Take 1 tablet by mouth. [facility] pyridoxine HCl, vitamin B6, (VITAMIN B-6 ORAL) 05-31 00:00: 00 Yes 1{tbl} Take 1 tablet by mouth. [facility] multivit-mi n/ferrous fumarate (MULTI VITAMIN ORAL) 05-31 00:00: 00 Yes 1{tbl} Take 1 tablet by mouth. [facility] pyridoxine HCl, vitamin B6, (VITAMIN B-6 ORAL) 05-31 00:00: 00 Yes 1{tbl} Take 1 tablet by mouth. [facility] multivit-mi n/ferrous fumarate (MULTI VITAMIN ORAL) 05-31 00:00: 00 Yes 1{tbl} Take 1 tablet by mouth. [facility] pyridoxine HCl, vitamin B6, (VITAMIN B-6 ORAL) 05-31 00:00: 00 Yes 1{tbl} Take 1 tablet by mouth. [facility] multivit-mi n/ferrous fumarate (MULTI VITAMIN ORAL) 05-31 00:00: 00 Yes 1{tbl} Take 1 tablet by mouth. [facility] pyridoxine HCl, vitamin B6, (VITAMIN B-6 ORAL) 05-31 00:00: 00 Yes 1{tbl} Take 1 tablet by mouth. [facility] multivit-mi n/ferrous fumarate (MULTI VITAMIN ORAL) 05-31 00:00: 00 Yes 1{tbl} Take 1 tablet by mouth. [facility] pyridoxine HCl, vitamin B6, (VITAMIN B-6 ORAL) 05-31 00:00: 00 Yes 1{tbl} Take 1 tablet by mouth. [facility] multivit-mi n/ferrous fumarate (MULTI VITAMIN ORAL) 05-31 00:00: 00 Yes 1{tbl} Take 1 tablet by mouth. [facility] pyridoxine HCl, vitamin B6, (VITAMIN B-6 ORAL) 05-31 00:00: 00 Yes 1{tbl} Take 1 tablet by mouth. [facility] multivit-mi n/ferrous fumarate (MULTI VITAMIN ORAL) 05-31 00:00: 00 Yes 1{tbl} Take 1 tablet by mouth. [facility] pyridoxine HCl, vitamin B6, (VITAMIN B-6 ORAL) 05-31 00:00: 00 Yes 1{tbl} Take 1 tablet by mouth. [facility] multivit-mi n/ferrous fumarate (MULTI VITAMIN ORAL) 05-31 00:00: 00 Yes 1{tbl} Take 1 tablet by mouth. [facility] pyridoxine HCl, vitamin B6, (VITAMIN B-6 ORAL) 05-31 00:00: 00 Yes 1{tbl} Take 1 tablet by mouth. [facility] multivit-mi n/ferrous fumarate (MULTI VITAMIN ORAL) 05-31 00:00: 00 Yes 1{tbl} Take 1 tablet by mouth. [facility] pyridoxine HCl, vitamin B6, (VITAMIN B-6 ORAL) 05-31 00:00: 00 Yes 1{tbl} Take 1 tablet by mouth. [facility] multivit-mi n/ferrous fumarate (MULTI VITAMIN ORAL) 05-31 00:00: 00 Yes 1{tbl} Take 1 tablet by mouth. [facility] pyridoxine HCl, vitamin B6, (VITAMIN B-6 ORAL) 05-31 00:00: 00 Yes 1{tbl} Take 1 tablet by mouth. [facility] multivit-mi n/ferrous fumarate (MULTI VITAMIN ORAL) 05-31 00:00: 00 Yes 1{tbl} Take 1 tablet by mouth. [facility] pyridoxine HCl, vitamin B6, (VITAMIN B-6 ORAL) 05-31 00:00: 00 Yes 1{tbl} Take 1 tablet by mouth. [facility] multivit-mi n/ferrous fumarate (MULTI VITAMIN ORAL) 05-31 00:00: 00 Yes 1{tbl} Take 1 tablet by mouth. [facility] pyridoxine HCl, vitamin B6, (VITAMIN B-6 ORAL) 05-31 00:00: 00 Yes 1{tbl} Take 1 tablet by mouth. [facility] multivit-mi n/ferrous fumarate (MULTI VITAMIN ORAL) 05-31 00:00: 00 Yes 1{tbl} Take 1 tablet by mouth. [facility] pyridoxine HCl, vitamin B6, (VITAMIN B-6 ORAL) 05-31 00:00: 00 Yes 1{tbl} Take 1 tablet by mouth. [facility] multivit-mi n/ferrous fumarate (MULTI VITAMIN ORAL) 05-31 00:00: 00 Yes 1{tbl} Take 1 tablet by mouth. [facility] pyridoxine HCl, vitamin B6, (VITAMIN B-6 ORAL) 05-31 00:00: 00 Yes 1{tbl} Take 1 tablet by mouth. [facility] multivit-mi n/ferrous fumarate (MULTI VITAMIN ORAL) 05-31 00:00: 00 Yes 1{tbl} Take 1 tablet by mouth. [facility] pyridoxine HCl, vitamin B6, (VITAMIN B-6 ORAL) 05-31 00:00: 00 Yes 1{tbl} Take 1 tablet by mouth. [facility] multivit-mi n/ferrous fumarate (MULTI VITAMIN ORAL) 05-31 00:00: 00 Yes 1{tbl} Take 1 tablet by mouth. [facility] pyridoxine HCl, vitamin B6, (VITAMIN B-6 ORAL) 05-31 00:00: 00 Yes 1{tbl} Take 1 tablet by mouth. [facility] multivit-mi n/ferrous fumarate (MULTI VITAMIN ORAL) 05-31 00:00: 00 Yes 1{tbl} Take 1 tablet by mouth. [facility] pyridoxine HCl, vitamin B6, (VITAMIN B-6 ORAL) 05-31 00:00: 00 Yes 1{tbl} Take 1 tablet by mouth. [facility] hydrOXYchlo roQUINE 200 mg tablet 11-05 00:00: 00 Yes 200mg Take 200 mg by mouth 2 (two) times daily. [facility] hydrOXYchlo roQUINE 200 mg tablet 11-05 00:00: 00 Yes 200mg Take 200 mg by mouth 2 (two) times daily. [facility] hydrOXYchlo roQUINE 200 mg tablet 11-05 00:00: 00 Yes 200mg Take 200 mg by mouth 2 (two) times daily. [facility] hydrOXYchlo roQUINE 200 mg tablet 11-05 00:00: 00 Yes 200mg Take 200 mg by mouth 2 (two) times daily. [facility] hydrOXYchlo roQUINE 200 mg tablet 11-05 00:00: 00 Yes 200mg Take 200 mg by mouth 2 (two) times daily. [facility] hydrOXYchlo roQUINE 200 mg tablet 11-05 00:00: 00 Yes 200mg Take 200 mg by mouth 2 (two) times daily. [facility] hydrOXYchlo roQUINE 200 mg tablet 11-05 00:00: 00 Yes 200mg Take 200 mg by mouth 2 (two) times daily. [facility] hydrOXYchlo roQUINE 200 mg tablet 11-05 00:00: 00 Yes 200mg Take 200 mg by mouth 2 (two) times daily. [facility] hydrOXYchlo roQUINE 200 mg tablet 11-05 00:00: 00 Yes 200mg Take 200 mg by mouth 2 (two) times daily. [facility] hydrOXYchlo roQUINE 200 mg tablet 11-05 00:00: 00 Yes 200mg Take 200 mg by mouth 2 (two) times daily. [facility] hydrOXYchlo roQUINE 200 mg tablet 11-05 00:00: 00 Yes 200mg Take 200 mg by mouth 2 (two) times daily. [facility] hydrOXYchlo roQUINE 200 mg tablet 11-05 00:00: 00 Yes 200mg Take 200 mg by mouth 2 (two) times daily. [facility] hydrOXYchlo roQUINE 200 mg tablet 11-05 00:00: 00 Yes 200mg Take 200 mg by mouth 2 (two) times daily. [facility] hydrOXYchlo roQUINE 200 mg tablet 11-05 00:00: 00 Yes 200mg Take 200 mg by mouth 2 (two) times daily. [facility] hydrOXYchlo roQUINE 200 mg tablet 11-05 00:00: 00 Yes 200mg Take 200 mg by mouth 2 (two) times daily. [facility] hydrOXYchlo roQUINE 200 mg tablet 11-05 00:00: 00 Yes 200mg Take 200 mg by mouth 2 (two) times daily. [facility] hydrOXYchlo roQUINE 200 mg tablet 11-05 00:00: 00 Yes 200mg Take 200 mg by mouth 2 (two) times daily. [facility] hydrOXYchlo roQUINE 200 mg tablet 11-05 00:00: 00 Yes 200mg Take 200 mg by mouth 2 (two) times daily. [facility] hydrOXYchlo roQUINE 200 mg tablet 11-05 00:00: 00 Yes 200mg Take 200 mg by mouth 2 (two) times daily. [facility] hydrOXYchlo roQUINE 200 mg tablet 11-05 00:00: 00 Yes 200mg Take 200 mg by mouth 2 (two) times daily. [facility] hydrOXYchlo roQUINE 200 mg tablet 11-05 00:00: 00 Yes 200mg Take 200 mg by mouth 2 (two) times daily. [facility] hydrOXYchlo roQUINE 200 mg tablet 11-05 00:00: 00 Yes 200mg Take 200 mg by mouth 2 (two) times daily. [facility] hydrOXYchlo roQUINE 200 mg tablet 11-05 00:00: 00 Yes 200mg Take 200 mg by mouth 2 (two) times daily. [facility] hydrOXYchlo roQUINE 200 mg tablet 11-05 00:00: 00 Yes 200mg Take 200 mg by mouth 2 (two) times daily. [facility] hydrOXYchlo roQUINE 200 mg tablet 11-05 00:00: 00 Yes 200mg Take 200 mg by mouth 2 (two) times daily. [facility] hydrOXYchlo roQUINE 200 mg tablet 11-05 00:00: 00 Yes 200mg Take 200 mg by mouth 2 (two) times daily. [facility] hydrOXYchlo roQUINE 200 mg tablet 11-05 00:00: 00 Yes 200mg Take 200 mg by mouth 2 (two) times daily. [facility] hydrOXYchlo roQUINE 200 mg tablet 11-05 00:00: 00 Yes 200mg Take 200 mg by mouth 2 (two) times daily. [facility] hydrOXYchlo roQUINE 200 mg tablet 11-05 00:00: 00 Yes 200mg Take 200 mg by mouth 2 (two) times daily. [facility] hydrOXYchlo roQUINE 200 mg tablet 11-05 00:00: 00 Yes 200mg Take 200 mg by mouth 2 (two) times daily. [facility] hydrOXYchlo roQUINE 200 mg tablet 11-05 00:00: 00 Yes 200mg Take 200 mg by mouth 2 (two) times daily. [facility] hydrOXYchlo roQUINE 200 mg tablet 11-05 00:00: 00 Yes 200mg Take 200 mg by mouth 2 (two) times daily. [facility] hydrOXYchlo roQUINE 200 mg tablet 11-05 00:00: 00 Yes 200mg Take 200 mg by mouth 2 (two) times daily. [facility] hydrOXYchlo roQUINE 200 mg tablet 11-05 00:00: 00 Yes 200mg Take 200 mg by mouth 2 (two) times daily. [facility] hydrOXYchlo roQUINE 200 mg tablet 11-05 00:00: 00 Yes 200mg Take 200 mg by mouth 2 (two) times daily. [facility] hydrOXYchlo roQUINE 200 mg tablet 11-05 00:00: 00 Yes 200mg Take 200 mg by mouth 2 (two) times daily. [facility] hydrOXYchlo roQUINE 200 mg tablet 11-05 00:00: 00 Yes 200mg Take 200 mg by mouth 2 (two) times daily. [facility] hydrOXYchlo roQUINE 200 mg tablet 11-05 00:00: 00 Yes 200mg Take 200 mg by mouth 2 (two) times daily. [facility] hydrOXYchlo roQUINE 200 mg tablet 11-05 00:00: 00 Yes 200mg Take 200 mg by mouth 2 (two) times daily. [facility] hydrOXYchlo roQUINE 200 mg tablet 11-05 00:00: 00 Yes 200mg Take 200 mg by mouth 2 (two) times daily. [facility] hydrOXYchlo roQUINE 200 mg tablet 11-05 00:00: 00 Yes 200mg Take 200 mg by mouth 2 (two) times daily. [facility] hydrOXYchlo roQUINE 200 mg tablet 11-05 00:00: 00 Yes 200mg Take 200 mg by mouth 2 (two) times daily. [facility] hydrOXYchlo roQUINE 200 mg tablet 11-05 00:00: 00 Yes 200mg Take 200 mg by mouth 2 (two) times daily. [facility] hydrOXYchlo roQUINE 200 mg tablet 11-05 00:00: 00 Yes 200mg Take 200 mg by mouth 2 (two) times daily. [facility] hydrOXYchlo roQUINE 200 mg tablet 11-05 00:00: 00 Yes 200mg Take 200 mg by mouth 2 (two) times daily. [facility] hydrOXYchlo roQUINE 200 mg tablet 11-05 00:00: 00 Yes 200mg Take 200 mg by mouth 2 (two) times daily. [facility] hydrOXYchlo roQUINE 200 mg tablet 11-05 00:00: 00 Yes 200mg Take 200 mg by mouth 2 (two) times daily. [facility] hydrOXYchlo roQUINE 200 mg tablet 11-05 00:00: 00 Yes 200mg Take 200 mg by mouth 2 (two) times daily. [facility] hydrOXYchlo roQUINE 200 mg tablet 11-05 00:00: 00 Yes 200mg Take 200 mg by mouth 2 (two) times daily. [facility] hydrOXYchlo roQUINE 200 mg tablet 11-05 00:00: 00 Yes 200mg Take 200 mg by mouth 2 (two) times daily. [facility] hydrOXYchlo roQUINE 200 mg tablet 11-05 00:00: 00 Yes 200mg Take 200 mg by mouth 2 (two) times daily. [facility] hydrOXYchlo roQUINE 200 mg tablet 11-05 00:00: 00 Yes 200mg Take 200 mg by mouth 2 (two) times daily. [facility] hydrOXYchlo roQUINE 200 mg tablet 11-05 00:00: 00 Yes 200mg Take 200 mg by mouth 2 (two) times daily. [facility] hydrOXYchlo roQUINE 200 mg tablet 11-05 00:00: 00 Yes 200mg Take 200 mg by mouth 2 (two) times daily. [facility] hydrOXYchlo roQUINE 200 mg tablet 11-05 00:00: 00 Yes 200mg Take 200 mg by mouth 2 (two) times daily. [facility] hydrOXYchlo roQUINE 200 mg tablet 11-05 00:00: 00 Yes 200mg Take 200 mg by mouth 2 (two) times daily. [facility] hydrOXYchlo roQUINE 200 mg tablet 11-05 00:00: 00 Yes 200mg Take 200 mg by mouth 2 (two) times daily. [facility] hydrOXYchlo roQUINE 200 mg tablet 11-05 00:00: 00 Yes 200mg Take 200 mg by mouth 2 (two) times daily. [facility] hydrOXYchlo roQUINE 200 mg tablet 11-05 00:00: 00 Yes 200mg Take 200 mg by mouth 2 (two) times daily. [facility] hydrOXYchlo roQUINE 200 mg tablet 11-05 00:00: 00 Yes 200mg Take 200 mg by mouth 2 (two) times daily. [facility] hydrOXYchlo roQUINE 200 mg tablet 11-05 00:00: 00 Yes 200mg Take 200 mg by mouth 2 (two) times daily. [facility] hydrOXYchlo roQUINE 200 mg tablet 11-05 00:00: 00 Yes 200mg Take 200 mg by mouth 2 (two) times daily. [facility] hydrOXYchlo roQUINE 200 mg tablet 11-05 00:00: 00 Yes 200mg Take 200 mg by mouth 2 (two) times daily. [facility] hydrOXYchlo roQUINE 200 mg tablet 11-05 00:00: 00 Yes 200mg Take 200 mg by mouth 2 (two) times daily. [facility] hydrOXYchlo roQUINE 200 mg tablet 11-05 00:00: 00 Yes 200mg Take 200 mg by mouth 2 (two) times daily. [facility] hydrOXYchlo roQUINE 200 mg tablet 11-05 00:00: 00 Yes 200mg Take 200 mg by mouth 2 (two) times daily. [facility] hydrOXYchlo roQUINE 200 mg tablet 11-05 00:00: 00 Yes 200mg Take 200 mg by mouth 2 (two) times daily. [facility] [facility] hydrOXYchlo roQUINE 200 mg tablet 11-05 00:00: 00 Yes 200mg Take 200 mg by mouth 2 (two) times daily. [facility] hydrOXYchlo roQUINE 200 mg tablet 11-05 00:00: 00 Yes 200mg Take 200 mg by mouth 2 (two) times daily. [facility] hydrOXYchlo roQUINE 200 mg tablet 11-05 00:00: 00 Yes 200mg Take 200 mg by mouth 2 (two) times daily. [facility] hydrOXYchlo roQUINE 200 mg tablet 11-05 00:00: 00 Yes 200mg Take 200 mg by mouth 2 (two) times daily. [facility] hydrOXYchlo roQUINE 200 mg tablet 11-05 00:00: 00 Yes 200mg Take 200 mg by mouth 2 (two) times daily. [facility] hydrOXYchlo roQUINE 200 mg tablet 11-05 00:00: 00 Yes 200mg Take 200 mg by mouth 2 (two) times daily. [facility] hydrOXYchlo roQUINE 200 mg tablet 11-05 00:00: 00 Yes 200mg Take 200 mg by mouth 2 (two) times daily. [facility] hydrOXYchlo roQUINE 200 mg tablet 11-05 00:00: 00 Yes 200mg Take 200 mg by mouth 2 (two) times daily. [facility] hydrOXYchlo roQUINE 200 mg tablet 11-05 00:00: 00 Yes 200mg Take 200 mg by mouth 2 (two) times daily. [facility] hydrOXYchlo roQUINE 200 mg tablet 11-05 00:00: 00 Yes 200mg Take 200 mg by mouth 2 (two) times daily. [facility] hydrOXYchlo roQUINE 200 mg tablet 11-05 00:00: 00 Yes 200mg Take 200 mg by mouth 2 (two) times daily. [facility] hydrOXYchlo roQUINE 200 mg tablet 11-05 00:00: 00 Yes 200mg Take 200 mg by mouth 2 (two) times daily. [facility] hydrOXYchlo roQUINE 200 mg tablet 11-05 00:00: 00 Yes 200mg Take 200 mg by mouth 2 (two) times daily. [facility] hydrOXYchlo roQUINE 200 mg tablet 11-05 00:00: 00 Yes 200mg Take 200 mg by mouth 2 (two) times daily. [facility] hydrOXYchlo roQUINE 200 mg tablet 11-05 00:00: 00 Yes 200mg Take 200 mg by mouth 2 (two) times daily. [facility] hydrOXYchlo roQUINE 200 mg tablet 11-05 00:00: 00 Yes 200mg Take 200 mg by mouth 2 (two) times daily. [facility] hydrOXYchlo roQUINE 200 mg tablet 11-05 00:00: 00 Yes 200mg Take 200 mg by mouth 2 (two) times daily. [facility] hydrOXYchlo roQUINE 200 mg tablet 11-05 00:00: 00 Yes 200mg Take 200 mg by mouth 2 (two) times daily. [facility] hydrOXYchlo roQUINE 200 mg tablet 11-05 00:00: 00 Yes 200mg Take 200 mg by mouth 2 (two) times daily. [facility] hydrOXYchlo roQUINE 200 mg tablet 11-05 00:00: 00 Yes 200mg Take 200 mg by mouth 2 (two) times daily. [facility] hydrOXYchlo roQUINE 200 mg tablet 11-05 00:00: 00 Yes 200mg Take 200 mg by mouth 2 (two) times daily. [facility] Immunizations Ordered Immunization Name Filled Immunization Name Date Status Comments Source Influenza Virus Vaccine Quad .5 mL IM 6+ MO 2018-01-24 00:00:[address] [facility] Influenza Virus Vaccine Quad .5 mL IM 6+ MO 2018-01-24 00:00:[address] [facility] Influenza Virus Vaccine Quad .5 mL IM 6+ MO 2018-01-24 00:00:[address] [facility] Influenza Virus Vaccine Quad .5 mL IM 6+ MO 2018-01-24 00:00:[address] [facility] Influenza Virus Vaccine Quad .5 mL IM 6+ MO 2018-01-24 00:00:[address] [facility] Influenza Virus Vaccine Quad .5 mL IM 6+ MO 2018-01-24 00:00:[address] [facility] Influenza Virus Vaccine Quad .5 mL IM 6+ MO 2018-01-24 00:00:[address] [facility] Influenza Virus Vaccine Quad .5 mL IM 6+ MO 2018-01-24 00:00:[address] [facility] Influenza Virus Vaccine Quad .5 mL IM 6+ MO 2018-01-24 00:00:[address] [facility] Influenza Virus Vaccine Quad .5 mL IM 6+ MO 2018-01-24 00:00:[address] [facility] Influenza Virus Vaccine Quad .5 mL IM 6+ MO 2018-01-24 00:00:[address] [facility] Influenza Virus Vaccine Quad .5 mL IM 6+ MO 2018-01-24 00:00:[address] [facility] Influenza Virus Vaccine Quad .5 mL IM 6+ MO 2018-01-24 00:00:[address] [facility] Influenza Virus Vaccine Quad .5 mL IM 6+ MO 2018-01-24 00:00:[address] [facility] Influenza Virus Vaccine Quad .5 mL IM 6+ MO 2018-01-24 00:00:[address] [facility] Influenza Virus Vaccine Quad .5 mL IM 6+ MO 2018-01-24 00:00:[address] [facility] Influenza Virus Vaccine Quad .5 mL IM 6+ MO 2018-01-24 00:00:[address] [facility] Influenza Virus Vaccine Quad .5 mL IM 6+ MO 2018-01-24 00:00:[address] [facility] Influenza Virus Vaccine Quad .5 mL IM 6+ MO 2018-01-24 00:00:[address] [facility] Influenza Virus Vaccine Quad .5 mL IM 6+ MO 2018-01-24 00:00:[address] [facility] Influenza Virus Vaccine Quad .5 mL IM 6+ MO 2018-01-24 00:00:[address] [facility] Influenza Virus Vaccine Quad .5 mL IM 6+ MO 2018-01-24 00:00:[address] [facility] Influenza Virus Vaccine Quad .5 mL IM 6+ MO 2018-01-24 00:00:[address] [facility] Influenza Virus Vaccine Quad .5 mL IM 6+ MO 2018-01-24 00:00:[address] [facility] Influenza Virus Vaccine Quad .5 mL IM 6+ MO 2018-01-24 00:00:[address] [facility] Influenza Virus Vaccine Quad .5 mL IM 6+ MO 2018-01-24 00:00:[address] [facility] Influenza Virus Vaccine Quad .5 mL IM 6+ MO 2018-01-24 00:00:[address] [facility] Influenza Virus Vaccine Quad .5 mL IM 6+ MO 2018-01-24 00:00:[address] [facility] Influenza Virus Vaccine Quad .5 mL IM 6+ MO 2018-01-24 00:00:[address] [facility] Influenza Virus Vaccine Quad .5 mL IM 6+ MO 2018-01-24 00:00:[address] [facility] Influenza Virus Vaccine Quad .5 mL IM 6+ MO 2018-01-24 00:00:[address] [facility] Influenza Virus Vaccine Quad .5 mL IM 6+ MO 2018-01-24 00:00:[address] [facility] Influenza Virus Vaccine Quad .5 mL IM 6+ MO 2018-01-24 00:00:[address] [facility] Influenza Virus Vaccine Quad .5 mL IM 6+ MO (FLUZONE/FLULAVAL/F LUARIX) 2018-01-24 00:00:[address] [facility] Influenza Virus Vaccine Quad .5 mL IM 6+ MO (FLUZONE/FLULAVAL/F LUARIX) 2018-01-24 00:00:[address] [facility] Influenza Virus Vaccine Quad .5 mL IM 6+ MO (FLUZONE/FLULAVAL/F LUARIX) 2018-01-24 00:00:[address] [facility] Influenza Virus Vaccine Quad .5 mL IM 6+ MO (FLUZONE/FLULAVAL/F LUARIX) 2018-01-24 00:00:[address] [facility] Influenza Virus Vaccine Quad .5 mL IM 6+ MO (FLUZONE/FLULAVAL/F LUARIX) 2018-01-24 00:00:[address] [facility] Influenza Virus Vaccine Quad .5 mL IM 6+ MO (FLUZONE/FLULAVAL/F LUARIX) 2018-01-24 00:00:[address] [facility] Influenza Virus Vaccine Quad .5 mL IM 6+ MO (FLUZONE/FLULAVAL/F LUARIX) 2018-01-24 00:00:[address] [facility] Influenza Virus Vaccine Quad .5 mL IM 6+ MO (FLUZONE/FLULAVAL/F LUARIX) 2018-01-24 00:00:[address] [facility] Influenza Virus Vaccine Quad .5 mL IM 6+ MO (FLUZONE/FLULAVAL/F LUARIX) 2018-01-24 00:00:[address] [facility] Influenza Virus Vaccine Quad .5 mL IM 6+ MO (FLUZONE/FLULAVAL/F LUARIX) 2018-01-24 00:00:[address] [facility] Influenza Virus Vaccine Quad .5 mL IM 6+ MO (FLUZONE/FLULAVAL/F LUARIX) 2018-01-24 00:00:[address] [facility] Influenza Virus Vaccine Quad .5 mL IM 6+ MO (FLUZONE/FLULAVAL/F LUARIX) 2018-01-24 00:00:[address] [facility] Influenza Virus Vaccine Quad .5 mL IM 6+ MO (FLUZONE/FLULAVAL/F LUARIX) 2018-01-24 00:00:[address] [facility] TDAP 2013-02-07 00:00:[address] [facility] TDAP 2013-02-07 00:00:[address] [facility] TDAP 2013-02-07 00:00:[address] [facility] TDAP 2013-02-07 00:00:[address] [facility] TDAP 2013-02-07 00:00:[address] [facility] TDAP 2013-02-07 00:00:[address] [facility] TDAP 2013-02-07 00:00:[address] [facility] TDAP 2013-02-07 00:00:[address] [facility] TDAP 2013-02-07 00:00:[address] [facility] TDAP 2013-02-07 00:00:[address] [facility] TDAP 2013-02-07 00:00:[address] [facility] TDAP 2013-02-07 00:00:[address] [facility] TDAP 2013-02-07 00:00:[address] [facility] TDAP 2013-02-07 00:00:[address] [facility] TDAP 2013-02-07 00:00:[address] [facility] TDAP 2013-02-07 00:00:[address] [facility] TDAP 2013-02-07 00:00:[address] [facility] TDAP 2013-02-07 00:00:[address] [facility] TDAP 2013-02-07 00:00:[address] [facility] TDAP 2013-02-07 00:00:[address] [facility] TDAP 2013-02-07 00:00:[address] [facility] TDAP 2013-02-07 00:00:[address] [facility] TDAP 2013-02-07 00:00:[address] [facility] TDAP 2013-02-07 00:00:[address] [facility] TDAP 2013-02-07 00:00:[address] [facility] TDAP 2013-02-07 00:00:[address] [facility] TDAP 2013-02-07 00:00:[address] [facility] TDAP 2013-02-07 00:00:[address] [facility] TDAP 2013-02-07 00:00:[address] [facility] TDAP 2013-02-07 00:00:[address] [facility] TDAP 2013-02-07 00:00:[address] [facility] TDAP 2013-02-07 00:00:[address] [facility] TDAP 2013-02-07 00:00:[address] [facility] TDAP 2013-02-07 00:00:[address] [facility] TDAP 2013-02-07 00:00:[address] [facility] TDAP 2013-02-07 00:00:[address] [facility] TDAP 2013-02-07 00:00:[address] [facility] TDAP 2013-02-07 00:00:[address] [facility] TDAP 2013-02-07 00:00:[address] [facility] TDAP 2013-02-07 00:00:[address] [facility] TDAP 2013-02-07 00:00:[address] [facility] TDAP 2013-02-07 00:00:[address] [facility] TDAP 2013-02-07 00:00:[address] [facility] TDAP 2013-02-07 00:00:[address] [facility] TDAP 2013-02-07 00:00:[address] [facility] TDAP 2013-02-07 00:00:[address] [facility] Pneumococcal Polysaccharide, PPSV23 (PNEUMOVAX) 2012-02-22 00:00:[address] [facility] Pneumococcal Polysaccharide, PPSV23 (PNEUMOVAX) 2012-02-22 00:00:[address] [facility] Pneumococcal Polysaccharide, PPSV23 (PNEUMOVAX) 2012-02-22 00:00:[address] [facility] Pneumococcal Polysaccharide, PPSV23 (PNEUMOVAX) 2012-02-22 00:00:[address] [facility] Pneumococcal Polysaccharide, PPSV23 (PNEUMOVAX) 2012-02-22 00:00:[address] [facility] Pneumococcal Polysaccharide, PPSV23 (PNEUMOVAX) 2012-02-22 00:00:[address] [facility] Pneumococcal Polysaccharide, PPSV23 (PNEUMOVAX) 2012-02-22 00:00:[address] [facility] Pneumococcal Polysaccharide, PPSV23 (PNEUMOVAX) 2012-02-22 00:00:[address] [facility] Pneumococcal Polysaccharide, PPSV23 (PNEUMOVAX) 2012-02-22 00:00:[address] [facility] Pneumococcal Polysaccharide, PPSV23 (PNEUMOVAX) 2012-02-22 00:00:[address] [facility] Pneumococcal Polysaccharide, PPSV23 (PNEUMOVAX) 2012-02-22 00:00:[address] [facility] Pneumococcal Polysaccharide, PPSV23 (PNEUMOVAX) 2012-02-22 00:00:[address] [facility] Pneumococcal Polysaccharide, PPSV23 (PNEUMOVAX) 2012-02-22 00:00:[address] [facility] Pneumococcal Polysaccharide, PPSV23 (PNEUMOVAX) 2012-02-22 00:00:[address] [facility] Pneumococcal Polysaccharide, PPSV23 (PNEUMOVAX) 2012-02-22 00:00:[address] [facility] Pneumococcal Polysaccharide, PPSV23 (PNEUMOVAX) 2012-02-22 00:00:[address] [facility] Pneumococcal Polysaccharide, PPSV23 (PNEUMOVAX) 2012-02-22 00:00:[address] [facility] Pneumococcal Polysaccharide, PPSV23 (PNEUMOVAX) 2012-02-22 00:00:[address] [facility] Pneumococcal Polysaccharide, PPSV23 (PNEUMOVAX) 2012-02-22 00:00:[address] [facility] Pneumococcal Polysaccharide, PPSV23 (PNEUMOVAX) 2012-02-22 00:00:[address] [facility] Pneumococcal Polysaccharide, PPSV23 (PNEUMOVAX) 2012-02-22 00:00:[address] [facility] Pneumococcal Polysaccharide, PPSV23 (PNEUMOVAX) 2012-02-22 00:00:[address] [facility] Pneumococcal Polysaccharide, PPSV23 (PNEUMOVAX) 2012-02-22 00:00:[address] [facility] Pneumococcal Polysaccharide, PPSV23 (PNEUMOVAX) 2012-02-22 00:00:[address] [facility] Pneumococcal Polysaccharide, PPSV23 (PNEUMOVAX) 2012-02-22 00:00:[address] [facility] Pneumococcal Polysaccharide, PPSV23 (PNEUMOVAX) 2012-02-22 00:00:[address] [facility] Pneumococcal Polysaccharide, PPSV23 (PNEUMOVAX) 2012-02-22 00:00:[address] [facility] Pneumococcal Polysaccharide, PPSV23 (PNEUMOVAX) 2012-02-22 00:00:[address] [facility] Pneumococcal Polysaccharide, PPSV23 (PNEUMOVAX) 2012-02-22 00:00:[address] [facility] Pneumococcal Polysaccharide, PPSV23 (PNEUMOVAX) 2012-02-22 00:00:[address] [facility] Pneumococcal Polysaccharide, PPSV23 (PNEUMOVAX) 2012-02-22 00:00:[address] [facility] Pneumococcal Polysaccharide, PPSV23 (PNEUMOVAX) 2012-02-22 00:00:[address] [facility] Pneumococcal Polysaccharide, PPSV23 (PNEUMOVAX) 2012-02-22 00:00:[address] [facility] Pneumococcal Polysaccharide, PPSV23 (PNEUMOVAX) 2012-02-22 00:00:[address] [facility] Pneumococcal Polysaccharide, PPSV23 (PNEUMOVAX) 2012-02-22 00:00:[address] [facility] Pneumococcal Polysaccharide, PPSV23 (PNEUMOVAX) 2012-02-22 00:00:[address] [facility] Pneumococcal Polysaccharide, PPSV23 (PNEUMOVAX) 2012-02-22 00:00:[address] [facility] Pneumococcal Polysaccharide, PPSV23 (PNEUMOVAX) 2012-02-22 00:00:[address] [facility] Pneumococcal Polysaccharide, PPSV23 (PNEUMOVAX) 2012-02-22 00:00:[address] [facility] Pneumococcal Polysaccharide, PPSV23 (PNEUMOVAX) 2012-02-22 00:00:[address] [facility] Pneumococcal Polysaccharide, PPSV23 (PNEUMOVAX) 2012-02-22 00:00:[address] [facility] Pneumococcal Polysaccharide, PPSV23 (PNEUMOVAX) 2012-02-22 00:00:[address] [facility] Pneumococcal Polysaccharide, PPSV23 (PNEUMOVAX) 2012-02-22 00:00:[address] [facility] Pneumococcal Polysaccharide, PPSV23 (PNEUMOVAX) 2012-02-22 00:00:[address] [facility] Pneumococcal Polysaccharide, PPSV23 (PNEUMOVAX) 2012-02-22 00:00:[address] [facility] Pneumococcal Polysaccharide, PPSV23 (PNEUMOVAX) 2012-02-22 00:00:[address] [facility] Influenza Virus Vaccine (3+ yrs) 2010-11-07 00:00:[address] [facility] Influenza Virus Vaccine (3+ yrs) 2010-11-07 00:00:00 Completed [facility] Influenza Virus Vaccine (3+ yrs) 2010-11-07 00:00:[address] [facility] Influenza Virus Vaccine (3+ yrs) 2010-11-07 00:00:[address] [facility] Influenza Virus Vaccine (3+ yrs) 2010-11-07 00:00:[address] [facility] Influenza Virus Vaccine (3+ yrs) 2010-11-07 00:00:[address] [facility] Influenza Virus Vaccine (3+ yrs) 2010-11-07 00:00:[address] [facility] Influenza Virus Vaccine (3+ yrs) 2010-11-07 00:00:[address] [facility] Influenza Virus Vaccine (3+ yrs) 2010-11-07 00:00:[address] [facility] Influenza Virus Vaccine (3+ yrs) 2010-11-07 00:00:[address] [facility] Influenza Virus Vaccine (3+ yrs) 2010-11-07 00:00:[address] [facility] Influenza Virus Vaccine (3+ yrs) 2010-11-07 00:00:[address] [facility] Influenza Virus Vaccine (3+ yrs) 2010-11-07 00:00:[address] [facility] Influenza Virus Vaccine (3+ yrs) 2010-11-07 00:00:[address] [facility] Influenza Virus Vaccine (3+ yrs) 2010-11-07 00:00:[address] [facility] Influenza Virus Vaccine (3+ yrs) 2010-11-07 00:00:[address] [facility] Influenza Virus Vaccine (3+ yrs) 2010-11-07 00:00:[address] [facility] Influenza Virus Vaccine (3+ yrs) 2010-11-07 00:00:[address] [facility] Influenza Virus Vaccine (3+ yrs) 2010-11-07 00:00:[address] [facility] Influenza Virus Vaccine (3+ yrs) 2010-11-07 00:00:[address] [facility] Influenza Virus Vaccine (3+ yrs) 2010-11-07 00:00:[address] [facility] Influenza Virus Vaccine (3+ yrs) 2010-11-07 00:00:[address] [facility] Influenza Virus Vaccine (3+ yrs) 2010-11-07 00:00:[address] [facility] Influenza Virus Vaccine (3+ yrs) 2010-11-07 00:00:[address] [facility] Influenza Virus Vaccine (3+ yrs) 2010-11-07 00:00:[address] [facility] Influenza Virus Vaccine (3+ yrs) 2010-11-07 00:00:[address] [facility] Influenza Virus Vaccine (3+ yrs) 2010-11-07 00:00:[address] [facility] Influenza Virus Vaccine (3+ yrs) 2010-11-07 00:00:[address] [facility] Influenza Virus Vaccine (3+ yrs) 2010-11-07 00:00:[address] [facility] Influenza Virus Vaccine (3+ yrs) 2010-11-07 00:00:[address] [facility] Influenza Virus Vaccine (3+ yrs) 2010-11-07 00:00:[address] [facility] Influenza Virus Vaccine (3+ yrs) 2010-11-07 00:00:[address] [facility] Influenza Virus Vaccine (3+ yrs) 2010-11-07 00:00:[address] [facility] Influenza Virus Vaccine (3+ yrs) 2010-11-07 00:00:[address] [facility] Influenza Virus Vaccine (3+ yrs) 2010-11-07 00:00:[address] [facility] Influenza Virus Vaccine (3+ yrs) 2010-11-07 00:00:[address] [facility] Influenza Virus Vaccine (3+ yrs) 2010-11-07 00:00:[address] [facility] Influenza Virus Vaccine (3+ yrs) 2010-11-07 00:00:[address] [facility] Influenza Virus Vaccine (3+ yrs) 2010-11-07 00:00:[address] [facility] Influenza Virus Vaccine (3+ yrs) 2010-11-07 00:00:[address] [facility] Influenza Virus Vaccine (3+ yrs) 2010-11-07 00:00:[address] [facility] Influenza Virus Vaccine (3+ yrs) 2010-11-07 00:00:[address] [facility] Influenza Virus Vaccine (3+ yrs) 2010-11-07 00:00:[address] [facility] Influenza Virus Vaccine (3+ yrs) 2010-11-07 00:00:[address] [facility] Influenza Virus Vaccine (3+ yrs) 2010-11-07 00:00:[address] [facility] Influenza Virus Vaccine (3+ yrs) 2010-11-07 00:00:[address] [facility] Pneumococcal Polysaccharide, PPSV23 (PNEUMOVAX) 2006-11-14 00:00:[address] [facility] Pneumococcal Polysaccharide, PPSV23 (PNEUMOVAX) 2006-11-14 00:00:[address] [facility] Pneumococcal Polysaccharide, PPSV23 (PNEUMOVAX) 2006-11-14 00:00:[address] [facility] Pneumococcal Polysaccharide, PPSV23 (PNEUMOVAX) 2006-11-14 00:00:[address] [facility] Pneumococcal Polysaccharide, PPSV23 (PNEUMOVAX) 2006-11-14 00:00:[address] [facility] Pneumococcal Polysaccharide, PPSV23 (PNEUMOVAX) 2006-11-14 00:00:[address] [facility] Pneumococcal Polysaccharide, PPSV23 (PNEUMOVAX) 2006-11-14 00:00:[address] [facility] Pneumococcal Polysaccharide, PPSV23 (PNEUMOVAX) 2006-11-14 00:00:[address] [facility] Pneumococcal Polysaccharide, PPSV23 (PNEUMOVAX) 2006-11-14 00:00:00 [facility] [facility] Pneumococcal Polysaccharide, PPSV23 (PNEUMOVAX) 2006-11-14 00:00:[address] [facility] Pneumococcal Polysaccharide, PPSV23 (PNEUMOVAX) 2006-11-14 00:00:[address] [facility] Pneumococcal Polysaccharide, PPSV23 (PNEUMOVAX) 2006-11-14 00:00:[address] [facility] Pneumococcal Polysaccharide, PPSV23 (PNEUMOVAX) 2006-11-14 00:00:[address] [facility] Pneumococcal Polysaccharide, PPSV23 (PNEUMOVAX) 2006-11-14 00:00:[address] [facility] Pneumococcal Polysaccharide, PPSV23 (PNEUMOVAX) 2006-11-14 00:00:[address] [facility] Pneumococcal Polysaccharide, PPSV23 (PNEUMOVAX) 2006-11-14 00:00:[address] [facility] Pneumococcal Polysaccharide, PPSV23 (PNEUMOVAX) 2006-11-14 00:00:[address] [facility] Pneumococcal Polysaccharide, PPSV23 (PNEUMOVAX) 2006-11-14 00:00:[address] [facility] Pneumococcal Polysaccharide, PPSV23 (PNEUMOVAX) 2006-11-14 00:00:[address] [facility] Pneumococcal Polysaccharide, PPSV23 (PNEUMOVAX) 2006-11-14 00:00:[address] [facility] Pneumococcal Polysaccharide, PPSV23 (PNEUMOVAX) 2006-11-14 00:00:[address] [facility] Pneumococcal Polysaccharide, PPSV23 (PNEUMOVAX) 2006-11-14 00:00:[address] [facility] Pneumococcal Polysaccharide, PPSV23 (PNEUMOVAX) 2006-11-14 00:00:[address] [facility] Pneumococcal Polysaccharide, PPSV23 (PNEUMOVAX) 2006-11-14 00:00:[address] [facility] Pneumococcal Polysaccharide, PPSV23 (PNEUMOVAX) 2006-11-14 00:00:[address] [facility] Pneumococcal Polysaccharide, PPSV23 (PNEUMOVAX) 2006-11-14 00:00:[address] [facility] Pneumococcal Polysaccharide, PPSV23 (PNEUMOVAX) 2006-11-14 00:00:[address] [facility] Pneumococcal Polysaccharide, PPSV23 (PNEUMOVAX) 2006-11-14 00:00:[address] [facility] Pneumococcal Polysaccharide, PPSV23 (PNEUMOVAX) 2006-11-14 00:00:[address] [facility] Pneumococcal Polysaccharide, PPSV23 (PNEUMOVAX) 2006-11-14 00:00:[address] [facility] Pneumococcal Polysaccharide, PPSV23 (PNEUMOVAX) 2006-11-14 00:00:[address] [facility] Pneumococcal Polysaccharide, PPSV23 (PNEUMOVAX) 2006-11-14 00:00:[address] [facility] Pneumococcal Polysaccharide, PPSV23 (PNEUMOVAX) 2006-11-14 00:00:[address] [facility] Pneumococcal Polysaccharide, PPSV23 (PNEUMOVAX) 2006-11-14 00:00:[address] [facility] Pneumococcal Polysaccharide, PPSV23 (PNEUMOVAX) 2006-11-14 00:00:[address] [facility] Pneumococcal Polysaccharide, PPSV23 (PNEUMOVAX) 2006-11-14 00:00:[address] [facility] Pneumococcal Polysaccharide, PPSV23 (PNEUMOVAX) 2006-11-14 00:00:[address] [facility] Pneumococcal Polysaccharide, PPSV23 (PNEUMOVAX) 2006-11-14 00:00:[address] [facility] Pneumococcal Polysaccharide, PPSV23 (PNEUMOVAX) 2006-11-14 00:00:[address] [facility] Pneumococcal Polysaccharide, PPSV23 (PNEUMOVAX) 2006-11-14 00:00:[address] [facility] Pneumococcal Polysaccharide, PPSV23 (PNEUMOVAX) 2006-11-14 00:00:[address] [facility] Pneumococcal Polysaccharide, PPSV23 (PNEUMOVAX) 2006-11-14 00:00:[address] [facility] Pneumococcal Polysaccharide, PPSV23 (PNEUMOVAX) 2006-11-14 00:00:[address] [facility] Pneumococcal Polysaccharide, PPSV23 (PNEUMOVAX) 2006-11-14 00:00:[address] [facility] Pneumococcal Polysaccharide, PPSV23 (PNEUMOVAX) 2006-11-14 00:00:[address] [facility] Pneumococcal Polysaccharide, PPSV23 (PNEUMOVAX) 2006-11-14 00:00:[address] [facility] Influenza Virus Vaccine Quad .5 mL IM 6+ MO (FLUZONE/FLULAVAL/F LUARIX) Unknown Completed [facility] Pneumococcal Polysaccharide, PPSV23 (PNEUMOVAX) Unknown Completed [facility] TDAP Unknown Completed [facility] Influenza Virus Vaccine (3+ yrs) Unknown Completed [facility] Pneumococcal Polysaccharide, PPSV23 (PNEUMOVAX) Unknown Completed [facility] Influenza Virus Vaccine Quad .5 mL IM 6+ MO (FLUZONE/FLULAVAL/F LUARIX) Unknown Completed [facility] Pneumococcal Polysaccharide, PPSV23 (PNEUMOVAX) Unknown Completed [facility] TDAP Unknown Completed [facility] Influenza Virus Vaccine (3+ yrs) Unknown Completed [facility] Pneumococcal Polysaccharide, PPSV23 (PNEUMOVAX) Unknown Completed [facility] Influenza Virus Vaccine Quad .5 mL IM 6+ MO (FLUZONE/FLULAVAL/F LUARIX) Unknown Completed [facility] Pneumococcal Polysaccharide, PPSV23 (PNEUMOVAX) Unknown Completed [facility] TDAP Unknown Completed [facility] Influenza Virus Vaccine (3+ yrs) Unknown Completed [facility] Pneumococcal Polysaccharide, PPSV23 (PNEUMOVAX) Unknown Completed [facility] Influenza Virus Vaccine Quad .5 mL IM 6+ MO (FLUZONE/FLULAVAL/F LUARIX) Unknown Completed [facility] Pneumococcal Polysaccharide, PPSV23 (PNEUMOVAX) Unknown Completed [facility] TDAP Unknown Completed [facility] Influenza Virus Vaccine (3+ yrs) Unknown Completed [facility] Pneumococcal Polysaccharide, PPSV23 (PNEUMOVAX) Unknown Completed [facility] Influenza Virus Vaccine Quad .5 mL IM 6+ MO (FLUZONE/FLULAVAL/F LUARIX) Unknown Completed [facility] Pneumococcal Polysaccharide, PPSV23 (PNEUMOVAX) Unknown Completed [facility] TDAP Unknown Completed [facility] Influenza Virus Vaccine (3+ yrs) Unknown Completed [facility] Pneumococcal Polysaccharide, PPSV23 (PNEUMOVAX) Unknown Completed [facility] Influenza Virus Vaccine Quad .5 mL IM 6+ MO (FLUZONE/FLULAVAL/F LUARIX) Unknown Completed [facility] Pneumococcal Polysaccharide, PPSV23 (PNEUMOVAX) Unknown Completed [facility] TDAP Unknown Completed [facility] Influenza Virus Vaccine (3+ yrs) Unknown Completed [facility] Pneumococcal Polysaccharide, PPSV23 (PNEUMOVAX) Unknown Completed [facility] Influenza Virus Vaccine Quad .5 mL IM 6+ MO (FLUZONE/FLULAVAL/F LUARIX) Unknown Completed [facility] Pneumococcal Polysaccharide, PPSV23 (PNEUMOVAX) Unknown Completed [facility] TDAP Unknown Completed [facility] Influenza Virus Vaccine (3+ yrs) Unknown Completed [facility] Pneumococcal Polysaccharide, PPSV23 (PNEUMOVAX) Unknown Completed [facility] Influenza Virus Vaccine Quad .5 mL IM 6+ MO (FLUZONE/FLULAVAL/F LUARIX) Unknown Completed [facility] Pneumococcal Polysaccharide, PPSV23 (PNEUMOVAX) Unknown Completed [facility] TDAP Unknown Completed [facility] Influenza Virus Vaccine (3+ yrs) Unknown Completed [facility] Pneumococcal Polysaccharide, PPSV23 (PNEUMOVAX) Unknown Completed [facility] Influenza Virus Vaccine Quad .5 mL IM 6+ MO (FLUZONE/FLULAVAL/F LUARIX) Unknown Completed [facility] Pneumococcal Polysaccharide, PPSV23 (PNEUMOVAX) Unknown Completed [facility] TDAP Unknown Completed [facility] Influenza Virus Vaccine (3+ yrs) Unknown Completed [facility] Pneumococcal Polysaccharide, PPSV23 (PNEUMOVAX) Unknown Completed [facility] Influenza Virus Vaccine Quad .5 mL IM 6+ MO (FLUZONE/FLULAVAL/F LUARIX) Unknown Completed [facility] Pneumococcal Polysaccharide, PPSV23 (PNEUMOVAX) Unknown Completed [facility] TDAP Unknown Completed [facility] Influenza Virus Vaccine (3+ yrs) Unknown Completed [facility] Pneumococcal Polysaccharide, PPSV23 (PNEUMOVAX) Unknown Completed [facility] Influenza Virus Vaccine Quad .5 mL IM 6+ MO (FLUZONE/FLULAVAL/F LUARIX) Unknown Completed [facility] Pneumococcal Polysaccharide, PPSV23 (PNEUMOVAX) Unknown Completed [facility] TDAP Unknown Completed [facility] Influenza Virus Vaccine (3+ yrs) Unknown Completed [facility] Pneumococcal Polysaccharide, PPSV23 (PNEUMOVAX) Unknown Completed [facility] SARS-COV-2 COVID-19 PFIZER VACCINE Unknown Completed [facility] Influenza Virus Vaccine Quad .5 mL IM 6+ MO (FLUZONE/FLULAVAL/F LUARIX) Unknown Completed [facility] Influenza Virus Vaccine Quad .5 mL IM 6+ MO (FLUZONE/FLULAVAL/F LUARIX) Unknown Completed [facility] Pneumococcal Polysaccharide, PPSV23 (PNEUMOVAX) Unknown Completed [facility] TDAP Unknown Completed [facility] Influenza Virus Vaccine (3+ yrs) Unknown Completed [facility] Pneumococcal Polysaccharide, PPSV23 (PNEUMOVAX) Unknown Completed [facility] SARS-COV-2 COVID-19 PFIZER VACCINE Unknown Completed [facility] Influenza Virus Vaccine Quad .5 mL IM 6+ MO (FLUZONE/FLULAVAL/F LUARIX) Unknown Completed [facility] Influenza Virus Vaccine Quad .5 mL IM 6+ MO (FLUZONE/FLULAVAL/F LUARIX) Unknown Completed [facility] Pneumococcal Polysaccharide, PPSV23 (PNEUMOVAX) Unknown Completed [facility] TDAP Unknown Completed [facility] Influenza Virus Vaccine (3+ yrs) Unknown Completed [facility] Pneumococcal Polysaccharide, PPSV23 (PNEUMOVAX) Unknown Completed [facility] SARS-COV-2 COVID-19 PFIZER VACCINE Unknown Completed [facility] Influenza Virus Vaccine Quad .5 mL IM 6+ MO (FLUZONE/FLULAVAL/F LUARIX) Unknown Completed [facility] Influenza Virus Vaccine Quad .5 mL IM 6+ MO (FLUZONE/FLULAVAL/F LUARIX) Unknown Completed [facility] Pneumococcal Polysaccharide, PPSV23 (PNEUMOVAX) Unknown Completed [facility] TDAP Unknown Completed [facility] Influenza Virus Vaccine (3+ yrs) Unknown Completed [facility] Pneumococcal Polysaccharide, PPSV23 (PNEUMOVAX) Unknown Completed [facility] SARS-COV-2 COVID-19 PFIZER VACCINE Unknown Completed [facility] Influenza Virus Vaccine Quad .5 mL IM 6+ MO (FLUZONE/FLULAVAL/F LUARIX) Unknown Completed [facility] Influenza Virus Vaccine Quad .5 mL IM 6+ MO (FLUZONE/FLULAVAL/F LUARIX) Unknown Completed [facility] Pneumococcal Polysaccharide, PPSV23 (PNEUMOVAX) Unknown Completed [facility] TDAP Unknown Completed [facility] Influenza Virus Vaccine (3+ yrs) Unknown Completed [facility] Pneumococcal Polysaccharide, PPSV23 (PNEUMOVAX) Unknown Completed [facility] SARS-COV-2 COVID-19 PFIZER VACCINE Unknown Completed [facility] Influenza Virus Vaccine Quad .5 mL IM 6+ MO (FLUZONE/FLULAVAL/F LUARIX) Unknown Completed [facility] Influenza Virus Vaccine Quad .5 mL IM 6+ MO (FLUZONE/FLULAVAL/F LUARIX) Unknown Completed [facility] Pneumococcal Polysaccharide, PPSV23 (PNEUMOVAX) Unknown Completed [facility] TDAP Unknown Completed [facility] Influenza Virus Vaccine (3+ yrs) Unknown Completed [facility] Pneumococcal Polysaccharide, PPSV23 (PNEUMOVAX) Unknown Completed [facility] SARS-COV-2 COVID-19 PFIZER VACCINE Unknown Completed [facility] Influenza Virus Vaccine Quad .5 mL IM 6+ MO (FLUZONE/FLULAVAL/F LUARIX) Unknown Completed [facility] Influenza Virus Vaccine Quad .5 mL IM 6+ MO (FLUZONE/FLULAVAL/F LUARIX) Unknown Completed [facility] Pneumococcal Polysaccharide, PPSV23 (PNEUMOVAX) Unknown Completed [facility] TDAP Unknown Completed [facility] Influenza Virus Vaccine (3+ yrs) Unknown Completed [facility] Pneumococcal Polysaccharide, PPSV23 (PNEUMOVAX) Unknown Completed [facility] SARS-COV-2 COVID-19 PFIZER VACCINE Unknown Completed [facility] Influenza Virus Vaccine Quad .5 mL IM 6+ MO (FLUZONE/FLULAVAL/F LUARIX) Unknown Completed [facility] Influenza Virus Vaccine Quad .5 mL IM 6+ MO (FLUZONE/FLULAVAL/F LUARIX) Unknown Completed [facility] Pneumococcal Polysaccharide, PPSV23 (PNEUMOVAX) Unknown Completed [facility] TDAP Unknown Completed [facility] Influenza Virus Vaccine (3+ yrs) Unknown Completed [facility] Pneumococcal Polysaccharide, PPSV23 (PNEUMOVAX) Unknown Completed [facility] SARS-COV-2 COVID-19 PFIZER VACCINE Unknown Completed [facility] Influenza Virus Vaccine Quad .5 mL IM 6+ MO (FLUZONE/FLULAVAL/F LUARIX) Unknown Completed [facility] Influenza Virus Vaccine Quad .5 mL IM 6+ MO (FLUZONE/FLULAVAL/F LUARIX) Unknown Completed [facility] Pneumococcal Polysaccharide, PPSV23 (PNEUMOVAX) Unknown Completed [facility] TDAP Unknown Completed [facility] Influenza Virus Vaccine (3+ yrs) Unknown Completed [facility] Pneumococcal Polysaccharide, PPSV23 (PNEUMOVAX) Unknown Completed [facility] SARS-COV-2 COVID-19 PFIZER VACCINE Unknown Completed [facility] Influenza Virus Vaccine Quad .5 mL IM 6+ MO (FLUZONE/FLULAVAL/F LUARIX) Unknown Completed [facility] Influenza Virus Vaccine Quad .5 mL IM 6+ MO (FLUZONE/FLULAVAL/F LUARIX) Unknown Completed [facility] Pneumococcal Polysaccharide, PPSV23 (PNEUMOVAX) Unknown Completed [facility] TDAP Unknown Completed [facility] Influenza Virus Vaccine (3+ yrs) Unknown Completed [facility] Pneumococcal Polysaccharide, PPSV23 (PNEUMOVAX) Unknown Completed [facility] SARS-COV-2 COVID-19 PFIZER VACCINE Unknown Completed [facility] Influenza Virus Vaccine Quad .5 mL IM 6+ MO (FLUZONE/FLULAVAL/F LUARIX) Unknown Completed [facility] Influenza Virus Vaccine Quad .5 mL IM 6+ MO (FLUZONE/FLULAVAL/F LUARIX) Unknown Completed [facility] Pneumococcal Polysaccharide, PPSV23 (PNEUMOVAX) Unknown Completed [facility] TDAP Unknown Completed [facility] Influenza Virus Vaccine (3+ yrs) Unknown Completed [facility] Pneumococcal Polysaccharide, PPSV23 (PNEUMOVAX) Unknown Completed [facility] SARS-COV-2 COVID-19 PFIZER VACCINE Unknown Completed [facility] Influenza Virus Vaccine Quad .5 mL IM 6+ MO (FLUZONE/FLULAVAL/F LUARIX) Unknown Completed [facility] Influenza Virus Vaccine Quad .5 mL IM 6+ MO (FLUZONE/FLULAVAL/F LUARIX) Unknown Completed [facility] Pneumococcal Polysaccharide, PPSV23 (PNEUMOVAX) Unknown Completed [facility] TDAP Unknown Completed [facility] Influenza Virus Vaccine (3+ yrs) Unknown Completed [facility] Pneumococcal Polysaccharide, PPSV23 (PNEUMOVAX) Unknown Completed [facility] SARS-COV-2 COVID-19 PFIZER VACCINE Unknown Completed [facility] Influenza Virus Vaccine Quad .5 mL IM 6+ MO (FLUZONE/FLULAVAL/F LUARIX) Unknown Completed [facility] Influenza Virus Vaccine Quad .5 mL IM 6+ MO (FLUZONE/FLULAVAL/F LUARIX) Unknown Completed [facility] Pneumococcal Polysaccharide, PPSV23 (PNEUMOVAX) Unknown Completed [facility] TDAP Unknown Completed [facility] Influenza Virus Vaccine (3+ yrs) Unknown Completed [facility] Pneumococcal Polysaccharide, PPSV23 (PNEUMOVAX) Unknown Completed [facility] SARS-COV-2 COVID-19 PFIZER VACCINE Unknown Completed [facility] Influenza Virus Vaccine Quad .5 mL IM 6+ MO (FLUZONE/FLULAVAL/F LUARIX) Unknown Completed [facility] Influenza Virus Vaccine Quad .5 mL IM 6+ MO (FLUZONE/FLULAVAL/F LUARIX) Unknown Completed [facility] Pneumococcal Polysaccharide, PPSV23 (PNEUMOVAX) Unknown Completed [facility] TDAP Unknown Completed [facility] Influenza Virus Vaccine (3+ yrs) Unknown Completed [facility] Pneumococcal Polysaccharide, PPSV23 (PNEUMOVAX) Unknown Completed [facility] SARS-COV-2 COVID-19 PFIZER VACCINE Unknown Completed [facility] Influenza Virus Vaccine Quad .5 mL IM 6+ MO (FLUZONE/FLULAVAL/F LUARIX) Unknown Completed [facility] Influenza Virus Vaccine Quad .5 mL IM 6+ MO (FLUZONE/FLULAVAL/F LUARIX) Unknown Completed [facility] Pneumococcal Polysaccharide, PPSV23 (PNEUMOVAX) Unknown Completed [facility] TDAP Unknown Completed [facility] Influenza Virus Vaccine (3+ yrs) Unknown Completed [facility] Pneumococcal Polysaccharide, PPSV23 (PNEUMOVAX) Unknown Completed [facility] SARS-COV-2 COVID-19 PFIZER VACCINE Unknown Completed [facility] Influenza Virus Vaccine Quad .5 mL IM 6+ MO (FLUZONE/FLULAVAL/F LUARIX) Unknown Completed [facility] Influenza Virus Vaccine Quad .5 mL IM 6+ MO (FLUZONE/FLULAVAL/F LUARIX) Unknown Completed [facility] Pneumococcal Polysaccharide, PPSV23 (PNEUMOVAX) Unknown Completed [facility] TDAP Unknown Completed [facility] Influenza Virus Vaccine (3+ yrs) Unknown Completed [facility] Pneumococcal Polysaccharide, PPSV23 (PNEUMOVAX) Unknown Completed [facility] SARS-COV-2 COVID-19 PFIZER VACCINE Unknown Completed [facility] Influenza Virus Vaccine Quad .5 mL IM 6+ MO (FLUZONE/FLULAVAL/F LUARIX) Unknown Completed [facility] Influenza Virus Vaccine Quad .5 mL IM 6+ MO (FLUZONE/FLULAVAL/F LUARIX) Unknown Completed [facility] Pneumococcal Polysaccharide, PPSV23 (PNEUMOVAX) Unknown Completed [facility] TDAP Unknown Completed [facility] Influenza Virus Vaccine (3+ yrs) Unknown Completed [facility] Pneumococcal Polysaccharide, PPSV23 (PNEUMOVAX) Unknown Completed [facility] SARS-COV-2 COVID-19 PFIZER VACCINE Unknown Completed [facility] Influenza Virus Vaccine Quad .5 mL IM 6+ MO (FLUZONE/FLULAVAL/F LUARIX) Unknown Completed [facility] Influenza Virus Vaccine Quad .5 mL IM 6+ MO (FLUZONE/FLULAVAL/F LUARIX) Unknown Completed [facility] Pneumococcal Polysaccharide, PPSV23 (PNEUMOVAX) Unknown Completed [facility] TDAP Unknown Completed [facility] Influenza Virus Vaccine (3+ yrs) Unknown Completed [facility] Pneumococcal Polysaccharide, PPSV23 (PNEUMOVAX) Unknown Completed [facility] SARS-COV-2 COVID-19 PFIZER VACCINE Unknown Completed [facility] Influenza Virus Vaccine Quad .5 mL IM 6+ MO (FLUZONE/FLULAVAL/F LUARIX) Unknown Completed [facility] Influenza Virus Vaccine Quad .5 mL IM 6+ MO (FLUZONE/FLULAVAL/F LUARIX) Unknown Completed [facility] Pneumococcal Polysaccharide, PPSV23 (PNEUMOVAX) Unknown Completed [facility] TDAP Unknown Completed [facility] Influenza Virus Vaccine (3+ yrs) Unknown Completed [facility] Pneumococcal Polysaccharide, PPSV23 (PNEUMOVAX) Unknown Completed [facility] SARS-COV-2 COVID-19 PFIZER VACCINE Unknown Completed [facility] Influenza Virus Vaccine Quad .5 mL IM 6+ MO (FLUZONE/FLULAVAL/F LUARIX) Unknown Completed [facility] Influenza Virus Vaccine Quad .5 mL IM 6+ MO (FLUZONE/FLULAVAL/F LUARIX) Unknown Completed [facility] Pneumococcal Polysaccharide, PPSV23 (PNEUMOVAX) Unknown Completed [facility] TDAP Unknown Completed [facility] Influenza Virus Vaccine (3+ yrs) Unknown Completed [facility] Pneumococcal Polysaccharide, PPSV23 (PNEUMOVAX) Unknown Completed [facility] SARS-COV-2 COVID-19 PFIZER VACCINE Unknown Completed [facility] Influenza Virus Vaccine Quad .5 mL IM 6+ MO (FLUZONE/FLULAVAL/F LUARIX) Unknown Completed [facility] Influenza Virus Vaccine Quad .5 mL IM 6+ MO (FLUZONE/FLULAVAL/F LUARIX) Unknown Completed [facility] Pneumococcal Polysaccharide, PPSV23 (PNEUMOVAX) Unknown Completed [facility] TDAP Unknown Completed [facility] Influenza Virus Vaccine (3+ yrs) Unknown Completed [facility] Pneumococcal Polysaccharide, PPSV23 (PNEUMOVAX) Unknown Completed [facility] SARS-COV-2 COVID-19 PFIZER VACCINE Unknown Completed [facility] Influenza Virus Vaccine Quad .5 mL IM 6+ MO (FLUZONE/FLULAVAL/F LUARIX) Unknown Completed [facility] Influenza Virus Vaccine Quad .5 mL IM 6+ MO (FLUZONE/FLULAVAL/F LUARIX) Unknown Completed [facility] Pneumococcal Polysaccharide, PPSV23 (PNEUMOVAX) Unknown Completed [facility] TDAP Unknown Completed [facility] Influenza Virus Vaccine (3+ yrs) Unknown Completed [facility] Pneumococcal Polysaccharide, PPSV23 (PNEUMOVAX) Unknown Completed [facility] SARS-COV-2 COVID-19 PFIZER VACCINE Unknown Completed [facility] Influenza Virus Vaccine Quad .5 mL IM 6+ MO (FLUZONE/FLULAVAL/F LUARIX) Unknown Completed [facility] Influenza Virus Vaccine Quad .5 mL IM 6+ MO (FLUZONE/FLULAVAL/F LUARIX) Unknown Completed [facility] Pneumococcal Polysaccharide, PPSV23 (PNEUMOVAX) Unknown Completed [facility] TDAP Unknown Completed [facility] Influenza Virus Vaccine (3+ yrs) Unknown Completed [facility] Pneumococcal Polysaccharide, PPSV23 (PNEUMOVAX) Unknown Completed [facility] SARS-COV-2 COVID-19 PFIZER VACCINE Unknown Completed [facility] Influenza Virus Vaccine Quad .5 mL IM 6+ MO (FLUZONE/FLULAVAL/F LUARIX) Unknown Completed [facility] Influenza Virus Vaccine Quad .5 mL IM 6+ MO (FLUZONE/FLULAVAL/F LUARIX) Unknown Completed [facility] Pneumococcal Polysaccharide, PPSV23 (PNEUMOVAX) Unknown Completed [facility] TDAP Unknown Completed [facility] Influenza Virus Vaccine (3+ yrs) Unknown Completed [facility] Pneumococcal Polysaccharide, PPSV23 (PNEUMOVAX) Unknown Completed [facility] SARS-COV-2 COVID-19 PFIZER VACCINE Unknown Completed [facility] Influenza Virus Vaccine Quad .5 mL IM 6+ MO (FLUZONE/FLULAVAL/F LUARIX) Unknown Completed [facility] Influenza Virus Vaccine Quad .5 mL IM 6+ MO (FLUZONE/FLULAVAL/F LUARIX) Unknown Completed [facility] Pneumococcal Polysaccharide, PPSV23 (PNEUMOVAX) Unknown Completed [facility] TDAP Unknown Completed [facility] Influenza Virus Vaccine (3+ yrs) Unknown Completed [facility] Pneumococcal Polysaccharide, PPSV23 (PNEUMOVAX) Unknown Completed [facility] SARS-COV-2 COVID-19 PFIZER VACCINE Unknown Completed [facility] Influenza Virus Vaccine Quad .5 mL IM 6+ MO (FLUZONE/FLULAVAL/F LUARIX) Unknown Completed [facility] Influenza Virus Vaccine Quad .5 mL IM 6+ MO (FLUZONE/FLULAVAL/F LUARIX) Unknown Completed [facility] Pneumococcal Polysaccharide, PPSV23 (PNEUMOVAX) Unknown Completed [facility] TDAP Unknown Completed [facility] Influenza Virus Vaccine (3+ yrs) Unknown Completed [facility] Pneumococcal Polysaccharide, PPSV23 (PNEUMOVAX) Unknown Completed [facility] SARS-COV-2 COVID-19 PFIZER VACCINE Unknown Completed [facility] Influenza Virus Vaccine Quad .5 mL IM 6+ MO (FLUZONE/FLULAVAL/F LUARIX) Unknown Completed [facility] Influenza Virus Vaccine Quad .5 mL IM 6+ MO (FLUZONE/FLULAVAL/F LUARIX) Unknown Completed [facility] Pneumococcal Polysaccharide, PPSV23 (PNEUMOVAX) Unknown Completed [facility] TDAP Unknown Completed [facility] Influenza Virus Vaccine (3+ yrs) Unknown Completed [facility] Pneumococcal Polysaccharide, PPSV23 (PNEUMOVAX) Unknown Completed [facility] SARS-COV-2 COVID-19 PFIZER VACCINE Unknown Completed [facility] Influenza Virus Vaccine Quad .5 mL IM 6+ MO (FLUZONE/FLULAVAL/F LUARIX) Unknown Completed [facility] Influenza Virus Vaccine Quad .5 mL IM 6+ MO (FLUZONE/FLULAVAL/F LUARIX) Unknown Completed [facility] Pneumococcal Polysaccharide, PPSV23 (PNEUMOVAX) Unknown Completed [facility] TDAP Unknown Completed [facility] Influenza Virus Vaccine (3+ yrs) Unknown Completed [facility] Pneumococcal Polysaccharide, PPSV23 (PNEUMOVAX) Unknown Completed [facility] SARS-COV-2 COVID-19 PFIZER VACCINE Unknown Completed [facility] Influenza Virus Vaccine Quad .5 mL IM 6+ MO (FLUZONE/FLULAVAL/F LUARIX) Unknown Completed [facility] Influenza Virus Vaccine Quad .5 mL IM 6+ MO (FLUZONE/FLULAVAL/F LUARIX) Unknown Completed [facility] Pneumococcal Polysaccharide, PPSV23 (PNEUMOVAX) Unknown Completed [facility] TDAP Unknown Completed [facility] Influenza Virus Vaccine (3+ yrs) Unknown Completed [facility] Pneumococcal Polysaccharide, PPSV23 (PNEUMOVAX) Unknown Completed [facility] SARS-COV-2 COVID-19 PFIZER VACCINE Unknown Completed [facility] Influenza Virus Vaccine Quad .5 mL IM 6+ MO (FLUZONE/FLULAVAL/F LUARIX) Unknown Completed [facility] Influenza Virus Vaccine Quad .5 mL IM 6+ MO (FLUZONE/FLULAVAL/F LUARIX) Unknown Completed [facility] Pneumococcal Polysaccharide, PPSV23 (PNEUMOVAX) Unknown Completed [facility] TDAP Unknown Completed [facility] Influenza Virus Vaccine (3+ yrs) Unknown Completed [facility] Pneumococcal Polysaccharide, PPSV23 (PNEUMOVAX) Unknown Completed [facility] SARS-COV-2 COVID-19 PFIZER VACCINE Unknown Completed [facility] Influenza Virus Vaccine Quad .5 mL IM 6+ MO (FLUZONE/FLULAVAL/F LUARIX) Unknown Completed [facility] Influenza Virus Vaccine Quad .5 mL IM 6+ MO (FLUZONE/FLULAVAL/F LUARIX) Unknown Completed [facility] Pneumococcal Polysaccharide, PPSV23 (PNEUMOVAX) Unknown Completed [facility] TDAP Unknown Completed [facility] Influenza Virus Vaccine (3+ yrs) Unknown Completed [facility] Pneumococcal Polysaccharide, PPSV23 (PNEUMOVAX) Unknown Completed [facility] SARS-COV-2 COVID-19 PFIZER VACCINE Unknown Completed [facility] Influenza Virus Vaccine Quad .5 mL IM 6+ MO (FLUZONE/FLULAVAL/F LUARIX) Unknown Completed [facility] Influenza Virus Vaccine Quad .5 mL IM 6+ MO (FLUZONE/FLULAVAL/F LUARIX) Unknown Completed [facility] Pneumococcal Polysaccharide, PPSV23 (PNEUMOVAX) Unknown Completed [facility] TDAP Unknown Completed [facility] Influenza Virus Vaccine (3+ yrs) Unknown Completed [facility] Pneumococcal Polysaccharide, PPSV23 (PNEUMOVAX) Unknown Completed [facility] SARS-COV-2 COVID-19 PFIZER VACCINE Unknown Completed [facility] Influenza Virus Vaccine Quad .5 mL IM 6+ MO (FLUZONE/FLULAVAL/F LUARIX) Unknown Completed [facility] Vital Signs Vital Name Observation Time Observation Value Comments Derek suarez Systolic blood pressure 2023-01-13 20:40:00 133 mm[Hg] [facility] Diastolic blood pressure 2023-01-13 20:40:00 72 mm[Hg] [facility] Heart rate 2023-01-13 20:40:00 64 /min Un[facility] Body temperature 2023-01-13 20:40:[address] [facility] Respiratory rate 2023-01-13 20:40:00 18 /min [facility] Body height 2023-01-13 20:40:00 175.3 cm [facility] 2023-01-13 20:40:00 88.497 kg Univ [facility] BMI 2023-01-13 20:40:00 28.81 kg/m2 Univ [facility] Oxygen saturation in Arterial blood by Pulse oximetry 2023-01-13 20:40:00 98 /min [facility] Systolic blood pressure 2022-12-23 16:42:00 115 mm[Hg] [facility] Diastolic blood pressure 2022-12-23 16:42:00 66 mm[Hg] [facility] Heart rate 2022-12-23 16:42:00 60 /min Unive [facility] Body temperature 2022-12-23 16:42:[address] [facility] Body height 2022-12-23 16:42:00 175.3 cm Univ [facility] Body weight 2022-12-23 16:42:00 87.726 kg Univ [facility] BMI 2022-12-23 16:42:00 28.56 kg/m2 [facility] Oxygen saturation in Arterial blood by Pulse oximetry 2022-12-23 16:42:00 99 /min [facility] Systolic blood pressure 2022-11-16 14:11:00 123 mm[Hg] [facility] Diastolic blood pressure 2022-11-16 14:11:00 61 mm[Hg] [facility] Heart rate 2022-11-16 14:11:00 65 /min [facility] Body temperature 2022-11-16 14:11:[address] [facility] Respiratory rate 2022-11-16 14:11:00 18 /min [facility] Body height 2022-11-16 14:11:00 175.3 cm [facility] Body weight 2022-11-16 14:11:00 85.73 kg General acute hospital BMI 2022-11-16 14:11:00 27.91 kg/m2 [facility] Body height 2022-11-01 15:20:00 175.3 cm Univ [facility] Systolic blood pressure 2022-10-26 16:18:00 109 mm[Hg] [facility] Diastolic blood pressure 2022-10-26 16:18:00 59 mm[Hg] [facility] Heart rate 2022-10-26 16:18:00 66 /min [facility] Body temperature 2022-10-26 16:18:[address] [facility] Body height 2022-10-26 16:18:00 175.3 cm Univ [facility] Body weight 2022-10-26 16:18:00 88.134 kg [facility] acute hospital BMI 2022-10-26 16:18:00 28.69 kg/m2 [facility] Oxygen saturation in Arterial blood by Pulse oximetry 2022-10-26 16:18:00 97 /min [facility] Body height 2022-09-16 18:44:00 175.3 cm [facility] Systolic blood pressure 2022-09-02 14:05:00 132 mm[Hg] [facility] Diastolic blood pressure 2022-09-02 14:05:00 79 mm[Hg] [facility] Heart rate 2022-09-02 14:05:00 64 /min [facility] Body temperature 2022-09-02 14:05:[address] [facility] Respiratory rate 2022-09-02 14:05:00 18 /min [facility] Body height 2022-09-02 14:05:00 175.3 cm [facility] Body weight 2022-09-02 14:05:00 89.812 kg [facility] acute hospital BMI 2022-09-02 14:05:00 29.24 kg/m2 [facility] acute hospital Oxygen saturation in Arterial blood by Pulse oximetry 2022-09-02 14:05:00 96 /min [facility] Systolic blood pressure 2022-08-24 16:59:00 122 mm[Hg] [facility] Diastolic blood pressure 2022-08-24 16:59:00 78 mm[Hg] [facility] Heart rate 2022-08-24 16:59:00 64 /min [facility] Body temperature 2022-08-24 16:59:[address] [facility] Body height 2022-08-24 16:59:00 175.3 cm [facility] acute [facility] Body weight 2022-08-24 16:59:00 88.996 kg [facility] acute hospital BMI 2022-08-24 16:59:00 28.97 kg/m2 [facility] acute hospital Oxygen saturation in Arterial blood by Pulse oximetry 2022-08-24 16:59:00 98 /min [facility] Systolic blood pressure 2022-02-11 17:42:00 133 mm[Hg] [facility] Diastolic blood pressure 2022-02-11 17:42:00 68 mm[Hg] [facility] Heart rate 2022-02-11 17:42:00 60 /min [facility] Body height 2022-02-11 17:42:00 175.3 cm [facility] acute hospital Body weight 2022-02-11 17:42:00 92.625 kg [facility] acute hospital BMI 2022-02-11 17:42:00 30.16 kg/m2 [facility] acute hospital Oxygen saturation in Arterial blood by Pulse oximetry 2022-02-11 17:42:00 97 /min [facility] Systolic blood pressure 2022-02-09 18:02:00 131 mm[Hg] [facility] Diastolic blood pressure 2022-02-09 18:02:00 71 mm[Hg] [facility] Heart rate 2022-02-09 18:02:00 66 /min [facility] Body temperature 2022-02-09 18:02:[address] [facility] Respiratory rate 2022-02-09 18:02:00 16 /min [facility] Body height 2022-02-09 18:02:00 175.3 cm Univ [facility] Body weight 2022-02-09 18:02:00 92.08 kg Univ [facility] BMI 2022-02-09 18:02:00 29.98 kg/m2 [facility] Oxygen saturation in Arterial blood by Pulse oximetry 2022-02-09 18:02:00 95 /min [facility] Systolic blood pressure 2021-12-31 19:06:00 128 mm[Hg] [facility] Diastolic blood pressure 2021-12-31 19:06:00 66 mm[Hg] [facility] Heart rate 2021-12-31 19:06:00 81 /min [facility] Body temperature 2021-12-31 19:06:[address] [facility] Respiratory rate 2021-12-31 19:06:00 18 /min [facility] Oxygen saturation in Arterial blood by Pulse oximetry 2021-12-31 19:06:00 98 /min [facility] Body height 2021-12-29 00:08:00 175.3 cm [facility] acute hospital Body weight 2021-12-29 00:08:00 94.7 kg [facility] acute hospital BMI 2021-12-29 00:08:00 30.83 kg/m2 [facility] Systolic blood pressure 2021-12-28 11:15:00 159 mm[Hg] [facility] Diastolic blood pressure 2021-12-28 11:15:00 86 mm[Hg] [facility] Heart rate 2021-12-28 11:15:00 80 /min [facility] Body temperature 2021-12-28 11:15:[address] [facility] Respiratory rate 2021-12-28 11:15:00 16 /min [facility] Body height 2021-12-28 11:15:00 175.3 cm [facility] Body weight 2021-12-28 11:15:00 94.7 kg [facility] BMI 2021-12-28 11:15:00 30.83 kg/m2 [facility] acute hospital Systolic blood pressure 2021-10-27 20:05:00 148 mm[Hg] [facility] Diastolic blood pressure 2021-10-27 20:05:00 86 mm[Hg] [facility] Heart rate 2021-10-27 20:05:00 66 /min [facility] Body temperature 2021-10-27 20:05:[address] [facility] Respiratory rate 2021-10-27 20:05:00 16 /min [facility] Body height 2021-10-27 20:05:00 175.3 cm [facility] acute hospital Body weight 2021-10-27 20:05:00 94.802 kg [facility] acute hospital BMI 2021-10-27 20:05:00 30.86 kg/m2 [facility] acute hospital Oxygen saturation in Arterial blood by Pulse oximetry 2021-10-27 20:05:00 96 /min [facility] Systolic blood pressure 2021-09-29 19:58:00 136 mm[Hg] [facility] Diastolic blood pressure 2021-09-29 19:58:00 75 mm[Hg] [facility] Heart rate 2021-09-29 19:58:00 72 /min [facility] Respiratory rate 2021-09-29 19:58:00 18 /min [facility] Body height 2021-09-29 19:58:00 175.3 cm [facility] acute hospital Body weight 2021-09-29 19:58:00 95.165 kg [facility] acute hospital BMI 2021-09-29 19:58:00 30.98 kg/m2 [facility] acute hospital Oxygen saturation in Arterial blood by Pulse oximetry 2021-09-29 19:58:00 97 /min [facility] Procedures Procedure Date / Time Performed Performing Clinician Source CONSENT/REFUSAL FOR DIAGNOSIS AND TREATMENT 2023-02-17 20:03:30 Doctor Unassigned, [place] [facility] HB ECG ROUTINE & RHYTHM STRIP 2023-01-13 20:42:[address] [facility] INSURANCE CORRESPONDENCE 2022-12-17 06:01:00 Doc tor Unassigned, [place] [facility] INSURANCE CORRESPONDENCE 2022-12-01 05:01:00 Doc tor Unassigned, [place] [facility] PATIENT FINANCIAL POLICY 2022-10-07 14:51:25 Doctor Unassigned, [place] [facility] ASSIGNMENT OF BENEFITS 2022-02-09 16:56:29 Docto r Unassigned, [place] [facility] COVID-19 (ID NOW RAPID TESTING) 2021-12-30 23:26:[address] [facility] LAB ONLY COVID INTERPRETATION 2021-12-30 23:26:[address] [facility] XR CHEST 1 VW 2021-12-30 16:29:[address] [facility] CREATININE 2021-12-30 00:42:[address] [facility] XR CHEST 1 VW 2021-12-29 14:02:[address] [facility] XR CHEST 1 VW 2021-12-29 14:02:[address] [facility] INTUBATION 2021-12-28 13:26:00 Danny Sun [facility] acute hospital LAPAROSCOPIC ASSISTED ROBOTIC ABDOMINAL WALL RECONSTRUCTION 2021-12-28 12:54:[address] [facility] LAPAROSCOPIC ASSISTED ROBOTIC ABDOMINAL WALL RECONSTRUCTION 2021-12-28 12:54:[address] [facility] 2021-12-28 06:01:00 Doct or Unassigned, [place] [facility] DISCLOSURE AND CONSENT, MEDICAL AND SURGICAL PROCEDURES 2021-10-27 05:01:00 Doctor Unassigned, [place] [facility] Encounters Start Date/Time End Date/Time Encounter Type Admission Type Attending Clinicians Care Facility Care Department Encounter ID Source 2021-02-13 11:35:03 Outpatient R [facility] [id number] [facility] 2020-12-08 19:25:54 Emergency [facility] [id number] [facility] 2020-12-08 13:57:37 Emergency [facility] [id number] [facility] 2020-12-08 04:00:00 Emergency [facility] [id number] [facility] ity [facility] 2020-12-07 10:52:27 Emergency X [facility] [id number] [facility] 2020-12-07 10:51:36 Emergency [facility] [id number] [facility] 2020-12-07 05:39:59 Emergency [facility] [id number] [facility] 2020-12-06 07:40:04 Emergency [facility] [id number] [facility] 2020-12-05 20:55:47 Emergency [facility] [id number] [facility] 2020-12-05 20:13:24 Emergency [facility] [id number] [facility] 2020-12-05 19:07:25 Emergency [facility] [id number] [facility] 2020-12-05 18:41:54 Emergency [facility] [id number] [facility] 2023-02-26 00:00:00 2023-02-26 00:00:00 Patient Secure Wanda Palomares [facility] [id number] [id number] [id number] [facility] 2023-02-23 00:00:00 2023-02-23 00:00:00 Telephone [facility] [id number] [id number] 4.2.7.2.686 [id number] [facility] 2023-02-17 14:03:57 2023-02-17 23:59:00 Outpatient R IRAIS BENSON [facility] [id number] [facility] 2023-02-17 14:03:57 2023-02-17 23:59:00 Hospital Encounter Irais Benson [facility] [id number] 350.1.13.10 [id number] [id number] [facility] 2023-02-17 00:00:00 2023-02-17 00:00:00 Orders Only Doctor Unassigned, [place] [facility] [id number] 350.1.13.10 4.2.7.2.686 [id number] [facility] 2023-02-14 09:30:00 2023-02-14 09:30:00 Outpatient THAI DILLON [facility] [id number] [facility] 2023-02-01 00:00:00 2023-02-01 00:00:00 [facility] [id number] 350.1.13.10 4.2.7.2.686 [id number] [facility] 2023-01-27 00:00:00 2023-01-27 00:00:00 Patient Secure Msg Wanda Soto [facility] [id number] [id number] 4.2.7.2.686 [id number] [facility] 2023-01-21 00:00:00 2023-01-21 00:00:00 Patient Secure Msg Wanda Soto [facility] [id number] 350.1.13.10 4.2.7.2.686 [id number] [facility] 2023-01-21 00:00:00 2023-01-21 00:00:00 Telephone Wanda Soto [facility] [id number] [id number] 4.2.7.2.686 [id number] [facility] 2023-01-13 15:20:00 2023-01-13 15:54:24 [id number] 2023-01-13 15:20:00 2023-01-13 15:54:24 [facility] [id number] 350.1.13.10 4.2.7.2.686 [id number] [facility] 2022-12-23 10:30:00 2022-12-23 11:18:59 Outpatient R CRISTAL ONTIVEROS [facility] [id number] [facility] 2022-12-23 10:30:00 2022-12-23 11:18:59 Office Visit Rama Cristal [facility] [place] [facility] 1..114 350.1.13.10 4.2.7.2.686 [id number] [facility] 2022-12-17 00:00:00 2022-12-17 00:00:00 Orders Only Doctor Unassigned, [place] [facility] 1.0.114 350.1.13.10 4.2.7.2.686 [id number] [facility] 2022-12-17 00:00:00 2022-12-17 00:00:00 Telephone Wanda Soto [facility] [place] [facility] 1.0.114 350.1.13.10 4.2.7.2.686 [id number] [facility] 2022-12-10 00:00:00 2022-12-10 00:00:00 Patient Secure Msg Doctor Unassigned, [place] [facility] 1.0.114 350.1.13.10 4.2.7.2.686 [id number] [facility] 2022-12-06:00:00 2022-12-06 10:11:17 Outpatient R THAI SALGUERO [facility] [id number] [facility] 2022-12-06 10:00:00 2022-12-06 10:11:17 [facility] [id number] 350.1.13.10 4.2.7.2.686 [id number] [facility] 2022 10:20:00 2022 10:20:00 Outpatient R EDIL FENG [facility] [id number] [facility] 2022 00:00:00 2022 00:00:00 Telephone Edil Feng [facility] 1.0.114 350.1.13.10 4.2.7.2.686 [id number] [facility] 2022-12-01 00:00:00 2022-12-01 00:00:00 Orders Only Doctor Unassigned, [place] [facility] 1.2840.114 350.1.13.10 4.2.7.2.686 [id number] [facility] 2022-12-01 00:00:00 2022-12-01 00:00:00 Telephone Wanda Soto [facility] 1.2840.114 350.1.13.10 4.2.7.2.686 [id number] [facility] 2022-11-19 00:00:00 2022-11-19 00:00:00 Telephone Wanda Soto [facility] 1.2840.114 350.1.13.10 4.2.7.2.686 [id number] 201 [id number] [facility] 2022-11-16 09:30:00 2022-11-16 10:14:11 Outpatient R CAROLA CRUZ [facility] [id number] [facility] 2022-11-16 09:30:00 2022-11-16 10:14:11 Office Visit Nancy Carola L [facility] 1.0.114 350.1.13.10 4.2.7.2.686 [id number] [facility] 2022-11-01 10:30:00 2022-11-01 10:52:33 Outpatient R NOEMY THAI [facility] [id number] [facility] 2022-11-01 10:30:00 2022-11-01 10:52:33 [facility]114 350.1.13.10 4.2.7.2.686 [id number] [facility] 2022-10-26 11:00:00 2022-10-26 12:55:13 Outpatient R CRISTAL ONTIVEROS [facility] [id number] [facility] 2022-10-26 11:00:00 2022-10-26 12:55:13 Office Visit Cristal Ontiveros [facility] 1..114 350.1.13.10 4.2.7.2.686 [id number] [facility] 2022-10-14 00:00:00 2022-10-14 00:00:[facility]..114 350.1.13.10 4.2.7.2.686 [id number] 028 [id number] [facility] 2022-10-07 11:00:00 2022-10-07 11:15:00 Manager Of Sustainability [facility] 1..114 350.1.13.10 4.2.7.2.686 [id number] [facility] 2022-10-07 11:00:00 2022-10-07 11:00:00 Outpatient R THAI SALGUERO [facility] [id number] [facility] 2022-10-07 10:30:00 2022-10-07 10:51:32 Office Visit Noemy [facility] 1.2.840.114 350.1.13.10 4.2.7.2.686 [id number] [facility] 2022-10-07 00:00:00 2022-10-07 00:00:00 Orders Only Doctor Unassigned, [place] [facility] 1.2.840.114 350.1.13.10 4.2.7.2.686 [id number] [facility] 2022-10-06 00:00:00 2022-10-06 00:00:00 Telephone Noemy [facility] 1.2840.114 350.1.13.10 4.2.7.2.686 [id number] [facility] 2022-10-04 00:00:00 2022-10-04 00:00:00 Patient Secure Wanda Palomares [facility] 1.2840.114 350.1.13.10 4.2.7.2.686 [id number] 201 [id number] [facility] 2022-09-17 00:00:00 2022-09-17 00:00:00 Telephone Adalberto Mera [facility] 1.2840.114 350.1.13.10 4.2.7.2.686 [id number] [id number] [facility] 2022-09-16 14:15:00 2022-09-16 14:46:45 Outpatient R THAI SALGUERO [facility] [id number] [facility] 2022-09-16 14:15:00 2022-09-16 14:46:45 [facility] 1.840.114 350.1.13.10 4.2.7.2.686 [id number] [facility] 2022-09-10 00:00:00 2022-09-10 00:00:00 Telephone Irais Benson [facility] 1.2840.114 350.1.13.10 4.2.7.2.686 [id number] [id number] [facility] 2022-09-10 00:00:00 2022-09-10 00:00:00 Telephone Lorri Carrillo [facility] 1.840.114 350.1.13.10 4.2.7.2.686 [id number] [facility] 2022-09-02 09:00:00 2022-09-02 09:29:40 Outpatient Raya RUIZ LUDMILA [facility] [id number] [facility] 2022-09-02 09:00:00 2022-09-02 09:29:40 Office Visit Ludmila Ruiz [facility] 1.840.114 350.1.13.10 4.2.7.2.686 [id number] [facility] 2022-08-30 00:00:00 2022-08-30 00:00:00 Patient Secure Msg Doctor Unassigned, [place] [facility] 1.0.114 350.1.13.10 4.2.7.2.686 [id number] [facility] 2022-08-24 10:45:00 2022-08-24 13:05:10 Outpatient WANDA HOPKINS [facility] [id number] [facility] 2022-08-24 10:45:00 2022-08-24 13:05:10 Office Visit Wanda Soto [facility] 1..840.114 350.1.13.10 4.2.7.2.686 [id number] [facility] 2022-07-20 11:15:00 2022-07-20 11:15:00 Outpatient R ROSA ISELA S, KRISTI JOSE EDUARDO-LONI S, KRISTI [facility] [id number] [facility] 2022-07-09 00:00:00 2022-07-09 00:00:00 Patient Secure Msg Doctor Unassigned, [place] [facility] 1..840.114 350.1.13.10 4.2.7.2.686 [id number] [facility] 2022-07-05 00:00:00 2022-07-05 00:00:00 Patient Secure Msg Dagoberto Shaw [facility] BUILDING 1..840.114 350.1.13.10 4.2.7.2.686 [id number] [facility] 2022-06-03 09:30:00 2022-06-03 09:57:54 Outpatient R LUDMILA RUIZ [facility] [id number] [facility] 2022-06-01 11:15:00 2022-06-01 11:15:00 Outpatient R ROSA ISELA S, KRISTI ROSA ISELA S, KRISTI [facility] [id number] [facility] 2022-05-27 00:00:00 2022-05-27 00:00:00 Telephone Edil Feng [facility] LORNA RIANNAMONICA PROFESS[facility] NAL BUILDING 1..840.114 350.1.13.10 4.2.7.2.686 [id number] [facility] 2022-05-20 09:59:03 2022-05-20 23:59:00 Outpatient R EDIL FENG [facility] [id number] [facility] 2022-05-18 00:00:00 2022-05-18 00:00:00 [facility] 1.284.114 350.1.13.10 4.2.7.2.686 [id number] [facility] 2022-05-17 00:00:00 2022-05-17 00:00:00 [facility] 1.84.114 350.1.13.10 4.2.7.2.686 [id number] [facility] 2022-05-13 10:00:00 2022-05-13 10:00:00 Outpatient LUDMILA GIL [facility] [id number] [facility] 2022-04-19 00:00:00 2022-04-19 00:00:00 Patient Secure Msg Doctor Unassigned, [place] [facility] 1.84.114 350.1.13.10 4.2.7.2.686 [id number] [facility] 2022-04-08 10:00:00 2022-04-08 10:13:27 Outpatient LUDMILA GIL [facility] [id number] [facility] 2022-04-06 13:30:00 2022-04-06 13:30:00 Outpatient LUDMILA GIL [facility] [id number] [facility] 2022-02-11 10:20:00 2022-02-11 23:59:00 Outpatient EDIL MERCEDES [facility] [id number] [facility] 2022-02-11 11:20:00 2022-02-11 11:40:00 Office Visit Ping [facility] BUILDING 1.84.114 350.1.13.10 4.2.7.2.686 [id number] [facility] 2022-02-09 11:30:00 2022-02-09 12:15:22 Outpatient R DAGOBERTO SHAW [facility] [id number] [facility] 2022-02-09 11:30:00 2022-02-09 12:15:22 Office Visit Colin [facility] OFFICE BUILDING 1.2.840.114 350.1.13.10 4.2.7.2.686 [id number] [facility] 2022-02-09 00:00:00 2022-02-09 00:00:00 Orders Only Doctor Unassigned, [place] [facility] 1.2.840.114 350.1.13.10 4.2.7.2.686 [id number] [facility] 2022-01-26 16:00:00 2022-01-26 16:00:00 Outpatient R DAGOBERTO SHAW [facility] [id number] [facility] 2022-01-19 00:00:00 2022-01-19 00:00:00 Telephone Colin [facility] MEDICAL OFFICE BUILDING 1.2.840.114 350.1.13.10 4.2.7.2.686 [id number] [facility] 2022-01-12 00:00:00 2022-01-12 00:00:00 Telephone Colin Kell [facility] MEDICAL OFFICE BUILDING 1.2.840.114 350.1.13.10 4.2.7.2.686 [id number] [facility] 2022-01-07 09:40:00 2022-01-07 09:40:00 Outpatient R EDIL FENG [facility] [id number] [facility] 2021-12-28 05:11:00 2021-12-31 16:54:00 Outpatient DAGOBERTO MONTEIRO [facility] [id number] [facility] 2021-12-28 05:11:00 2021-12-31 16:54:00 Hospital Encounter [facility] 1.2.840.114 350.1.13.10 4.2.7.2.686 [id number] [facility] 2021-12-28 07:20:00 2021-12-28 13:02:00 Anesthesia Event Heaven Walter Christopher K [facility] 1.2.840.114 350.1.13.10 4.2.7.2.686 [id number] [facility] 2021-12-28 06:50:00 2021-12-28 11:07:00 Surgery [facility] 1.2.840.114 350.1.13.10 4.2.7.2.686 [id number] [facility] 2021-12-28 00:00:00 2021-12-28 00:00:00 Orders Only Doctor Unassigned, [place] [facility] 1.2.840.114 350.1.13.10 4.2.7.2.686 [id number] [facility] 2021-12-25 00:00:00 2021-12-25 00:00:00 Outpatient EDIL MERCEDES [facility] [id number] [facility] 2021-12-25 00:00:00 2021-12-25 00:00:[address] [facility] 1.2.840.114 350.1.13.10 4.2.7.2.686 [id number] [facility] 2021-12-25 00:00:00 2021-12-25 00:00:00 Patient Secure Msg [facility] MEDICAL OFFICE BUILDING 1.2.840.114 350.1.13.10 4.2.7.2.686 [id number] [facility] 2021-12-24 13:35:11 2021-12-24 23:59:00 [id number] 2021-12-24 13:30:00 2021-12-24 23:59:00 Hospital Encounter Ping Counts include 234 beds at the [facility] 1.2.840.114 350.1.13.10 4.2.7.2.686 [id number] [facility] 2021-12-24 00:00:00 2021-12-24 00:00:[address] [facility] 1.2.840.114 350.1.13.10 4.2.7.2.686 [id number] [facility] 2021-12-04 10:20:00 2021-12-04 10:20:00 Outpatient R EDIL FENG [facility] [id number] [facility] 2021-11-09 00:00:00 2021-11-09 00:00:00 Patient Secure Msg Doctor Unassigned, [place] [facility] 1.2840.114 350.1.13.10 4.2.7.2.686 [id number] [facility] 2021-10-27 15:00:00 2021-10-27 15:15:00 Office Visit Colin [facility] MEDICAL OFFICE BUILDING 1.2.840.114 350.1.13.10 4.2.7.2.686 [id number] [facility] 2021-10-27 15:00:00 2021-10-27 15:00:00 Outpatient R COLIN [facility] [id number] [facility] 2021-10-27 00:00:00 2021-10-27 00:00:00 Orders Only Doctor Unassigned, [place] [facility] 1.2840.114 350.1.13.10 4.2.7.2.686 [id number] [facility] 2021-10-05 09:15:00 2021-10-05 09:15:00 Outpatient BRENT LOW [facility] [id number] [facility] 2021-10-02 15:00:00 2021-10-02 15:00:00 Outpatient Raya PHILLIPBAR [facility] [id number] [facility] 2021-09-29 14:45:00 2021-09-29 15:00:00 [facility] 1..840.114 350.1.13.10 4.2.7.2.686 [id number] [facility] 2021-09-29 14:45:00 2021-09-29 14:45:00 Outpatient R JOSEPH [facility] [id number] [facility] 2021-09-29 09:15:00 2021-09-29 09:15:00 [facility] [id number] [facility] 2021-09-28 00:00:00 2021-09-28 00:00:00 [facility] 1..840.114 350.1.13.10 4.2.7.2.686 [id number] [facility] 2021-09-25 10:40:00 2021-09-25 10:40:00 [facility] [id number] 2021-09-25 10:40:00 2021-09-25 10:40:00 Outpatient Raya PHILLIPBAR [facility] [id number] [facility] 2021-09-19 00:00:00 2021-09-19 00:00:00 Patient Secure Msg Doctor Unassigned, [place] [facility] 1..840.114 350.1.13.10 4.2.7.2.686 [id number] [facility] 2021-09-17 11:39:36 2021-09-17 23:59:00 Outpatient R CHARLOTTE VILLALPANDO [facility] [id number] [facility] 2021-09-17 11:39:36 2021-09-17 23:59:00 Hospital Encounter Charlotte Villalpando [facility] 1..114 350.1.13.10 4.2.7.2.686 [id number] [facility] 2021-09-14 08:30:00 2021-09-14 09:03:05 Out[facility] [id number] [facility] 2021-09-14 08:30:00 2021-09-14 09:03:05 Office Visit VillalpandoAide gibsontney [facility] 1.840.114 350.1.13.10 4.2.7.2.686 [id number] [facility] 2021-08-12 10:30:00 2021-08-12 10:30:00 Outpatient R AIDE VILLALPANDOTNEY [facility] [id number] [facility] 2021-07-29 09:30:00 2021-07-29 09:30:00 Outpatient R AIDE VILLALPANDOTNEY [facility] [id number] [facility] 2021-07-20 09:30:00 2021-07-20 09:30:00 Outpatient [facility] [id number] [facility] 2021-07-14 00:00:00 2021-07-14 00:00:00 Patient Secure Msg Doctor Unassigned, [place] [facility] 1.84.114 350.1.13.10 4.2.7.2.686 [id number] [facility] 2021-07-03 09:00:00 2021-07-03 09:24:03 Office Visit Edil Feng [facility] LORNA GALINDOIO [facility] BUILDING 1.0.114 350.1.13.10 4.2.7.2.686 [id number] [facility] 2021-07-03 09:00:00 2021-07-03 09:24:03 Outpatient R PING [facility] [id number] [facility] 2021-07-03 09:00:00 2021-07-03 09:00:00 [facility] [id number] [facility] 2021-06-30 15:30:00 2021-06-30 15:30:00 Outpatient R LUDMILA RUIZ [facility] [id number] [facility] 2021-06-26 10:00:00 2021-06-26 10:00:00 Outpatient R EDIL FENG [facility] [id number] [facility] 2021-06-26 10:00:00 2021-06-26 10:00:00 Outpatient R EDIL FENG [facility] [id number] [facility] 2021-06-26 10:00:00 2021-06-26 10:00:00 Outpatient R PING [facility] [id number] [facility] 2021-05-29 00:00:00 2021-05-29 00:00:00 Orders Only Doctor Unassigned, [place] [facility] 1.0.114 350.1.13.10 4.2.7.2.686 [id number] [facility] 2021-05-20 00:00:00 2021-05-20 00:00:00 Transition of Care Arina Ramsay [facility] 1.0.114 350.1.13.10 4.2.7.2.686 [id number] [facility] 2021-05-19 16:30:00 2021-05-19 16:30:00 Outpatient LUDMILA GIL [facility] [id number] [facility] 2021-05-14 17:03:00 2021-05-19 15:35:00 Outpatient Lionel BOLAÑOS [facility] [id number] [facility] 2021-05-14 17:03:00 2021-05-19 15:35:00 Emergency [place], Noel Lopez, [facility] 1..840.114 350.1.13.10 4.2.7.2.686 [id number] [facility] 2021-05-12 16:15:00 2021-05-12 16:15:00 Outpatient LUDMILA GIL [facility] [id number] [facility] 2021-05-11 00:00:00 2021-05-11 00:00:00 Franklyn Dominguez [facility] 1..840.114 350.1.13.10 4.2.7.2.686 [id number] [facility] 2021-05-08 11:00:00 2021-05-08 11:00:00 Outpatient LUDMILA GIL [facility] [id number] [facility] 2021-05-08 00:00:00 2021-05-08 00:00:00 Ludmila Jasso [facility] ..840.114 350.1.13.10 4.2.7.2.686 [id number] [facility] 2021-04-22 07:01:00 2021-04-30 17:49:00 Inpatient LUDMILA GIL [facility] [id number] [facility] 2021-04-22 07:01:00 2021-04-30 17:49:00 Hospital Encounter [facility] 1.2.840.114 350.1.13.10 4.2.7.2.686 [id number] [facility] 2021-04-22 10:03:00 2021-04-22 16:40:00 Anesthesia Event Francesca, AltaJamey Gonsalez [facility] 1.2.840.114 350.1.13.10 4.2.7.2.686 [id number] [facility] 2021-04-22 09:00:00 2021-04-22 15:30:00 Surgery [facility] 1.2.840.114 350.1.13.10 4.2.7.2.686 [id number] [facility] 2021-04-22 00:00:00 2021-04-22 00:00:00 Orders Only Doctor Unassigned, [place] [facility] 1.2.840.114 350.1.13.10 4.2.7.2.686 [id number] [facility] 2021-04-15 08:43:00 2021-04-15 11:49:00 Outpatient R SHAISTA GUERRA [facility] GIE [id number] [facility] 2021-04-15 08:43:00 2021-04-15 11:49:00 Hospital Encounter Shaista Guerra [facility] 1.2.840.114 350.1.13.10 4.2.7.2.686 [id number] [facility] 2021-04-15 09:45:00 2021-04-15 10:15:00 Surgery Shaista Guerra [facility] 1.2.840.114 350.1.13.10 4.2.7.2.686 [id number] [facility] 2021-04-15 00:00:00 2021-04-15 00:00:00 Orders Only Doctor Unassigned, [place] [facility] 1..840.114 350.1.13.10 4.2.7.2.686 [id number] [facility] 2021-04-13 13:00:00 2021-04-13 13:15:00 Laboratory Only Only, Adc Test Ludmila Ruiz [facility] 1..840.114 350.1.13.10 4.2.7.2.686 [id number] [facility] 2021-04-13 13:00:00 2021-04-13 13:00:00 [facility] [id number] 2021-04-06 00:00:00 2021-04-06 00:00:00 Telephone Ludmila Ruiz [facility] 1..840.114 350.1.13.10 4.2.7.2.686 [id number] [facility] 2021-03-20 11:45:00 2021-03-20 13:07:24 Outpatient LUDMILA GIL [facility] [id number] [facility] 2021-03-20 11:45:00 2021-03-20 13:07:24 Outpatient LUDMILA GIL [facility] [id number] [facility] 2021-03-20 08:00:00 2021-03-20 09:14:53 Office Visit Edil Feng [facility] 1..840.114 350.1.13.10 4.2.7.2.686 [id number] [facility] 2021-03-18 09:06:05 2021-03-18 23:59:00 Outpatient LUDMILA GIL [facility] [id number] [facility] 2021-03-18 09:06:05 2021-03-18 23:59:00 Outpatient R LUDMILA RUIZ [facility] [id number] [facility] 2021-03-18 09:00:00 2021-03-18 23:59:00 Hospital Encounter Ludmila Ruiz [facility] 1.2.840.114 350.1.13.10 4.2.7.2.686 [id number] [facility] 2021-03-05 17:38:00 2021-03-05 22:52:00 Emergency X Milena OROPEZA [facility] ERT [id number] [facility] 2021-03-05 17:38:00 2021-03-05 22:52:00 Emergency Milena Oropezage [facility] 1.2.840.114 350.1.13.10 4.2.7.2.686 [id number] [facility] 2021-02-24 00:00:00 2021-02-24 00:00:00 Telephone Ludmila Ruiz [facility] 1.2.840.114 350.1.13.10 4.2.7.2.686 [id number] [facility] 2021-02-20 00:00:00 2021-02-20 00:00:00 Patient Secure Msg Doctor Unassigned, [place] [facility] 1.2.840.114 350.1.13.10 4.2.7.2.686 [id number] [facility] 2021-02-19 00:00:00 2021-02-19 00:00:00 Transition of Arina Phillips 1.2.840.114 350.1.13.10 4.2.7.2.686 [id number] [facility] 2021-02-14 17:09:00 2021-02-18 16:05:00 Hospital Encounter Maryan Rojas [place], Kylee Franz, [facility]efuentes [facility] 1.114 350.1.13.10 4.2.7.2.686 [id number] [facility] 2021-02-16 09:27:00 2021-02-16 10:27:00 Anesthesia Event Radha Holden [facility] 1.2.114 350.1.13.10 4.2.7.2.686 [id number] [facility] 2021-02-16 07:48:00 2021-02-16 08:50:00 Surgery Mario Mg [facility]ENC[facility] 1..114 350.1.13.10 4.2.7.2.686 [id number] [facility] 2021-02-13 10:45:00 2021-02-13 11:00:00 Office Visit Ludmila Ruiz [facility] 1.114 350.1.13.10 4.2.7.2.686 [id number] [facility] 2021-02-13 10:45:00 2021-02-13 10:45:00 Outpatient LUDMILA GIL [facility] [id number] [facility] 2021-02-13 10:45:00 2021-02-13 10:45:00 Outpatient LUDMILA GIL [facility] AMBER [id number] [facility] 2021-02-13 10:45:00 2021-02-13 10:45:00 Outpatient LUDMILA GIL [facility] [id number] [facility] 2021-02-03 00:00:00 2021-02-03 00:00:00 Franklyn Dominguez [facility] 1.114 350.1.13.10 4.2.7.2.686 [id number] [facility] 2020-12-24 14:00:00 2020-12-24 15:03:38 Outpatient R ALVINBALDEMAR CRENSHAW [facility] [id number] [facility] 2020-12-24 14:00:00 2020-12-24 15:03:38 Outpatient Raya ESQUIVELBALDEMAR CRENSHAW [facility] [id number] [facility] 2020-12-24 13:41:26 2020-12-24 15:03:38 Office Visit Baldemar Mejiaseel [facility] 1..840.114 350.1.13.10 4.2.7.2.686 [id number] [facility] 2020-12-23 00:00:00 2020-12-23 00:00:00 Orders Only Doctor Unassigned, [place] [facility] 1..840.114 350.1.13.10 4.2.7.2.686 [id number] [facility] 2020-12-12 11:45:00 2020-12-12 11:45:00 Outpatient LUDMILA GIL [facility] [id number] [facility] 2020-12-12 11:45:00 2020-12-12 11:45:00 Outpatient LUDMILA GIL [facility] [id number] [facility] 2020-12-12 11:45:00 2020-12-12 11:45:00 [facility] SYSTEM [id number] [facility] 2020-12-12 11:45:00 2020-12-12 11:45:00 Outpatient LUDMILA GIL [facility] [id number] [facility] 2020-12-12 11:45:00 2020-12-12 11:45:00 Outpatient LUDMILA GIL [facility] [id number] [facility] 2020-12-12 11:13:07 2020-12-12 11:28:07 Office Visit Ludmila Ruiz [facility] 1..114 350.1.13.10 4.2.7.2.686 [id number] [facility] 2020-12-09 11:21:50 2020-12-09 11:39:47 Office [facility] 1.114 350.1.13.10 4.2.7.2.686 [id number] [facility] 2020-12-09 11:00:00 2020-12-09 11:39:47 Outpatient R PING [facility] [id number] [facility] 2020-12-09 11:00:00 2020-12-09 11:39:47 Outpatient Raya FENG [facility] [id number] [facility] 2020-12-09 00:00:00 2020-12-09 00:00:00 Orders Only Doctor Unassigned, [place] [facility] 1.114 350.1.13.10 4.2.7.2.686 [id number] [facility] 2020-12-05 11:30:00 2020-12-05 11:30:00 Outpatient R LUDMILA RUZI [facility] [id number] [facility] 2020-12-05 11:30:00 2020-12-05 11:30:00 Outpatient R LUDMILA RUIZ [facility] [id number] [facility] 2020-12-03 00:00:00 2020-12-03 00:00:00 Telephone Ilana Alcala [facility] 1..114 350.1.13.10 4.2.7.2.686 [id number] [facility] 2020-11-28 11:00:00 2020-11-28 11:00:00 Outpatient Raya LUDMILA RUIZ [facility] [id number] [facility] 2020-11-28 11:00:00 2020-11-28 11:00:00 Outpatient LUDMILA GIL [facility] [id number] [facility] 2020-11-28 00:00:00 2020-11-28 00:00:00 Telephone Ilana Alcala [facility] 1.2.840.114 350.1.13.10 4.2.7.2.686 [id number] [facility] 2020-11-25 15:45:00 2020-11-25 16:38:41 Outpatient Raya SHAW DAGOBERTO [facility] [id number] [facility] 2020-11-25 15:36:34 2020-11-25 16:38:41 Office Visit Dagoberto Shaw [facility] Medical Office Building 1..840.114 350.1.13.10 4.2.7.2.686 [id number] [facility] 2020-11-25 15:45:00 2020-11-25 15:45:00 Outpatient Raya SHAW [facility]O [facility] [id number] [facility] 2020-11-25 00:00:00 2020-11-25 00:00:00 Orders Only Doctor Unassigned, [place] [facility] 1.2.840.114 350.1.13.10 4.2.7.2.686 [id number] [id number] [facility] 2020-11-25 00:00:00 2020-11-25 00:00:00 Orders Only Doctor Unassigned, [place] [facility] 1.2.840.114 350.1.13.10 4.2.7.2.686 [id number] [id number] [facility] 2020-11-24 00:00:00 2020-11-24 00:00:00 Telephone Ilana Alcala [facility] Medical Office Building 1.2840.114 350.1.13.10 4.2.7.2.686 [id number] [facility] 2020-11-11 11:30:00 2020-11-11 11:30:00 Outpatient DAGOBERTO MONTEIRO [facility] [id number] [facility] 2020-11-11 11:30:00 2020-11-11 11:30:00 Outpatient DAGOBERTO MONTEIRO [facility] [id number] [facility] 2020-11-07 00:00:00 2020-11-07 00:00:00 Orders Only Doctor Unassigned, [place] [facility] 1.2840.114 350.1.13.10 4.2.7.2.686 [id number] [id number] [facility] 2020-10-07 15:02:00 2020-10-07 17:36:00 Emergency Amarilis Bergman [facility] 1.2840.114 350.1.13.10 4.2.7.2.686 [id number] [facility] 2020-10-07 00:00:00 2020-10-07 00:00:00 Orders Only Doctor Unassigned, [place] [facility] 1.2840.114 350.1.13.10 4.2.7.2.686 [id number] [id number] [facility] 2020-10-06 00:00:00 2020-10-06 00:00:00 [facility] 1.2840.114 350.1.13.10 4.2.7.2.686 [id number] [facility] 2020-09-15 00:00:00 2020-09-15 00:00:00 Outpatient EDIL FENG [facility] [id number] [facility] 2020-09-09 11:15:00 2020-09-09 11:15:00 Outpatient R PREMA MENDEZ [facility] [id number] [facility] 2020-08-22 11:00:00 2020-08-22 11:56:10 Outpatient R LUDMILA RUIZ [facility] [id number] [facility] 2020-08-22 11:00:00 2020-08-22 11:00:00 Outpatient R LUDMILA RUIZ [facility] [id number] [facility] 2020-08-05 11:30:00 2020-08-05 11:30:00 Outpatient TRINIDAD JEROME [facility] [id number] [facility] 2020-07-22 10:00:00 2020-07-22 10:00:00 Outpatient TRINIDAD JEROME [facility] [id number] [facility] 2020-07-15 10:00:00 2020-07-15 10:00:00 Outpatient R PREMA MENDEZ [facility] [id number] [facility] 2020-07-15 10:00:00 2020-07-15 10:00:00 Outpatient R PREMA MENDEZ [facility] [id number] [facility] 2020-07-15 10:00:00 2020-07-15 10:00:00 Outpatient R [facility] [id number] [facility] 2020-07-09 10:00:00 2020-07-09 10:00:00 Outpatient R MARCELINO IRAIS [facility] [id number] [facility] 2020-07-08 10:00:00 2020-07-08 10:00:00 Outpatient R [facility] [id number] [facility] 2020-06-24 10:00:00 2020-06-24 10:00:00 Outpatient TRINIDAD JEROME [facility] [id number] [facility] 2020-06-17 11:00:00 2020-06-17 11:00:00 Outpatient R [facility] [id number] [facility] 2020-06-17 11:00:00 2020-06-17 11:00:00 Outpatient R EDIL FENG [facility] [id number] [facility] 2020-06-03 10:00:00 2020-06-03 10:00:00 Outpatient R TRINIDAD INFANTE [facility] [id number] [facility] 2020-04-18 14:37:00 2020-04-22 22:00:00 Outpatient X ILANA ALCALA [facility] SHONDA [id number] [facility] 2020-03-18 14:40:00 2020-03-18 14:40:00 Outpatient R [facility] [id number] [facility] 2020-03-14 09:20:00 2020-03-14 09:20:00 Outpatient FRANKLYN MILLS HOWARD [facility] [id number] [facility] 2020-01-29 08:00:00 2020-01-29 08:00:00 Outpatient R [facility] [id number] [facility] 2020-01-15 10:00:00 2020-01-15 10:00:00 Outpatient R [facility] [id number] [facility] 2020-01-10 16:52:00 2020-01-13 20:15:00 Outpatient X [facility]ATRIS [facility] [id number] [facility] 2020-01-10 15:30:00 2020-01-10 15:30:00 Outpatient R ANNEMARIE EDGAR [facility] [id number] [facility] 2020-01-09 10:20:00 2020-01-09 10:20:00 Outpatient R IRAIS BENSON [facility] [id number] [facility] 2020-01-01 15:30:00 2020-01-01 15:30:00 Outpatient R ANNEMARIE EDGAR [facility] [id number] [facility] 2019-11-22 14:00:00 2019-11-22 14:00:00 Outpatient R ANNEMARIE EDGAR [facility] [id number] [facility] 2019-11-15 15:45:00 2019-11-15 15:45:00 Outpatient R TYLER BASS [facility] [id number] [facility] 2019-11-01 15:00:00 2019-11-01 15:00:00 Outpatient R TALA ANNEMARIE [facility] [id number] [facility] 2019-10-30 15:00:00 2019-10-30 15:00:00 Outpatient R KEATON EDGARNATALIIA [facility] [id number] [facility] 2019-10-18 15:00:00 2019-10-18 15:00:00 Outpatient R LUDMILA MERLOS [facility] [id number] [facility] 2019-07-04 13:20:00 2019-07-04 13:20:00 Outpatient R IRAIS BENSON [facility] [id number] [facility] 2019-06-29 09:45:00 2019-06-29 09:45:00 Outpatient R [facility] [id number] [facility] 2019-06-20 09:00:00 2019-06-20 09:00:00 Outpatient R GAURANG LUDMILA [facility] [id number] [facility] 2019-04-30 10:00:00 2019-04-30 10:00:00 Outpatient R RADHA MCINTOSH [facility] [id number] [facility] 2019-03-01 20:00:00 2019-03-01 20:00:00 Outpatient R CAR HIDALGO STRAHIL [facility] [id number] [facility] 2019-01-15 09:33:47 2019-01-15 23:59:00 Outpatient R RADHA MCINTOSH [facility] [id number] [facility] 2019-01-15 09:33:47 2019-01-15 23:59:00 Outpatient R RADHA MCINTOSH [facility] [id number] [facility] Notes Date/Time Note Provider Source 2023-03-03 10:22:42 ttQ2UKO6GdgAZgJHEF9YJU4k4V1ySOU 7H6bcmTXgwLfLc/vOkSGpJum1HRSKr1 aV7464-15-64N12:22:42 Duplicate encounter, closing 63067-5Owynprjib encounter WcwgHQ8811-37-13G49:22:59Teleph one encounter NoteTXT1.2.840.557016.1.13.104. 2.7.2.731061|[id number] [facility] zsun79139-1FubcCCQZINVUFNEJpbki tted C-CDA narrative [id number] Trepagnier [address] MepuOlkonmrmmMsfdolxgyAGRD99569 47693GNWFDPTLMHFEUWYBZDQQUB3477 -01-25T10:22:591.2.840.257739.1 .72.3.15|1.2.840.366466.1.13.10 4.2.7.2.727879_[id number] Yamilet Coombs [facility] 2023-03-01 08:51:14 AGVo5+3YY9Cv5TNGcUSnMfhiJahEDB2 4B6plJfIYgHKqeL4KgKLFz/6cj/bNRq BG2554-58-93U27:51:14 Pt needs to be seen in OV with me to coordinate her complex needs. Dr. Benson approves bridging from ASA to Eliquis; Rheumatology has approved holding Plaquenil. I need to hear about her p-op resources as she states she plans to stay in a Nursing facility of some kind, which doesn't always provide transportation for her OVs. She will need an [facility] referral if we plan to go ahead and we need to coordinate her pain management (Cristal please help us with that) if we proceed with surgery. AND she will need an extension on her approval. 47182-1Josfsuzyw encounter WpuqFK1773-95-68J01:54:51Teleph one encounter NoteTXT1.2.840.588733.1.13.104. 2.7.2.157321|[id number] ble for patient fxxr96510-9QqzaDWELNAIUWFDXkvph tted C-CDA narrative textSUR-PLASTIC AND RECONSTRUCTIVE SURGERY STAFFSUR-PLASTIC AND RECONSTRUCTIVE SURGERY STAFF[address] 84391UZZZDBAGAKMTTBKMZIRASC7318 -01-23T08:54:511.2.840.006165.1 .72.3.15|1.2.840.660776.1.13.10 4.2.7.2.727879_[id number] AMARI-PLASTIC AND RECONSTRUCTIVE SURGERY STAFF [facility] 2023-02-24 08:42:32 Y9TlWfFidIVNkSmWiio+9rJ4dcgV/DP XUEx4RQK23kk+yLqYhZ//CTp/omGmYT Fb2814-64-13A44:42:32 Encounter closed 08188-4Trbymbyqh encounter DkcaKD2740-96-10Z84:42:49Teleph one encounter NoteTXT1.2.840.252051.1.13.104. 2.7.2.755984|[id number] ble for patient qemk70776-2GdjyXKPHOWDEDPGJejzm tted C-CDA narrative [id number] A Roller RNUT[address]TXTX[address] 34302NRBHZHNAKUNGWAOKQIKDVL9161 -01-18T08:42:491.2.840.485065.1 .72.3.15|1.2.840.631854.1.13.10 4.2.7.2.727879_[id number] Amna Wolf RN [facility] 2023-02-24 08:35:20 Bg9JOyS2ueMHnrhNmtw6cilGID96xIK rNKhPR2orHQxqHmMDCJFa77ByphU9Y5 Kn4105-52-07N80:35:20 Will do, thank you!Moira, we can offer the patient a surgical date.Cristal, please submit an email to [facility] so they have an opportunity to review her records pre-op. Thanks! 36672-3Mywehtxfi encounter GhjnOQ6352-78-96G64:36:40Teleph one encounter NoteTXT1.2.840.719237.1.13.104. 2.7.2.398827|[id number] ble for patient hmyv51523-1SmouLMOMKZGKYAJKzjay tted C-CDA narrative textSUR-PLASTIC AND RECONSTRUCTIVE SURGERY STAFFSUR-PLASTIC AND RECONSTRUCTIVE SURGERY STAFF[address] OehtXqekrrjhoIjigkkqqjVPRA89920 89093OYVFYWEAKUSSMFLAJGCPCB4543 -01-18T08:36:401.2.840.748160.1 .72.3.15|1.2.840.668293.1.13.10 4.2.7.2.727879_[id number] AMARI-PLASTIC AND RECONSTRUCTIVE SURGERY STAFF [facility] 2023-02-24 08:15:26 ZqaGX+CyCOP3L29EgdBmgWBZ0Ph7640 +6MObwAwuUHOxaYvtntfubcCsTFihcx r/9133-11-57I99:15:26 Dr. Soto,Yes, please follow your protocol as outlined. 93702-1Dcyvphlfv encounter JdcqOL7146-15-33J90:16:17Teleph one encounter NoteTXT1.2.840.749496.1.13.104. 2.7.2.329784|[id number] ble for patient viji99222-3HmvnIFDVPDTPTRZCmnux tted C-CDA narrative [address] 28491HFOJLPERMMBOXRNXEXFVND1943 -01-18T08:16:171.2.840.030606.1 .72.3.15|1.2.840.647016.1.13.10 4.2.7.2.727879_[id number] [facility] 2023-02-24 07:48:48 rUsjTVaaYEDid5dDoi8HmI1yORLjtVS 6gIaz1Xq+/O0fz6jMSBeYLJIVql0oBU PH9757-43-58J45:48:48 Thank you, Dr. Benson. Would you be amenable to stopping her daily ASA 1 week prior until one week after, or after we complete the anticoagulation I use for 10 - 30 days p-op? We could bridge her w Eliquis, holding the dose the night before, AM & PM dose day of surgery, resuming Eliquis the day after her procedure?Wanda Soto 71802-0Ljyytpuzz encounter TzqfTI6984-39-48U02:51:16Teleph one encounter NoteTXT1.2.840.858633.1.13.104. 2.7.2.229293|[id number] ble for patient kmvb92436-2XrgxFEYMYNNDDAFIpfrq tted C-CDA narrative [address] 16233CXCMVLRYCMAKQMWLRFHYSG0039 -01-18T07:51:161.2.840.215862.1 .72.3.15|1.2.840.492348.1.13.10 4.2.7.2.727879_[id number] [facility] 2023-02-23 21:06:10 UAcD2OCj2VYPGddIpxMzyFQXNzh8acg qt5xU5uGlWNBwCfQ2jnuHZj39WpLKHX up9429-05-38O42:06:10 Ok to proceed with surgery. Moderate cardiac risk. 26070-7Yjdyklpcx encounter UaypMV3400-19-63I47:06:41Teleph one encounter NoteTXT1.2.840.547233.1.13.104. 2.7.2.421099|[id number] [facility] myhm81494-0MzfwUBAVMFWRRGYJyjxs tted C-CDA narrative text[address] AtccVwrsgcncoJebozuuzzLCPE80961 50176ZBJUBQSPYUTFOOBTUQABBR2733 -01-17T21:06:411.2.840.962402.1 .72.3.15|1.2.840.040861.1.13.10 4.2.7.2.727879_[id number] [facility] 2023-02-23 14:55:43 NTyp7P4E+w/Y+3gaJW28BoOaHyaD4yR L2uI/4+zy/8h4degoqcRHyS9xzJYCSn QV8905-09-99I47:55:43 Received preop clearance and anticoagulation guidance request for Plastic surgery from Dr Soto.Medical clearance form placed in nurse basket at [facility]. Turn around time for forms is typically 5-7 business days. Once completed will be faxed to the requesting office.KRYSTIAN: 3Device clinic OV: 02/17/23Anticoagulation: PlavixDate of last echocardiogram: 04/23/21Date of last stress test: noneDate of last EK01/13/23Per patientDr Grant focused on the the verbiage:telling patient that she must:"Patient was counseled for lifestyle modifications including: diet, exercise and weight loss." 70000-1Zlpvvuyon encounter QazmWZ3274-11-46X06:05:23Teleph one encounter NoteTXT1.2.840.010142.1.13.104. 2.7.2.171823|[id number] [facility] yaph03498-0KunxBWBWTOBETLYVnsht tted C-CDA narrative textUT[address] IxzrKycohabbgBlkdtznaqIJXC73790 28936SKJJAIMTVCZUPEIUWXOKNQ0768 -01-17T15:05:231.2.840.317006.1 .72.3.15|1.2.840.892068.1.13.10 4.2.7.2.727879_[id number] [facility] 2023-02-23 14:46:35 aMrAkktZJWh+wM7BKngcrgVwkzjk9CD rRm7rL3gXUyXcciaFm1rwHW80sRLSho 376803-00-62L70:46:35 Received preop clearance and anticoagulation guidance request for Plastic surgery . Medical clearance form placed in nurse basket at [facility]. Turn around time for forms is typically 5-7 business days. Once completed will be faxed to the requesting office.KRYSTIAN: 01/13/23Device clinic OV: 02/17/23Anticoagulation: plavixDate of last echocardiogram:04/23/21Date of last stress test:noneDate of last EK01/13/23 41412-3Afujllldv encounter NfflPM1454-56-50I26:51:35Teleph one encounter NoteTXT1.2.840.275451.1.13.104. 2.7.2.082669|[id number] [facility] fope24201-5BrdvQIKRSVQAPBFSsiso tted C-CDA narrative [id number] A Roller RN[address] XcodRsvpwcnazAaczhwfogQAUW03241 48737CKZUOUINVBBZQMWMFZRAOV9599 -01-17T14:51:351.2.840.467601.1 .72.3.15|1.2.840.346000.1.13.10 4.2.7.2.727879_[id number] Amna Wolf RN [facility] 2023-02-04 16:10:28 bp2YMMKL1mT6fPcX0dZWREv90sTzq/o XkRUe5lUCGbW0PKdy9FHikq4lzB5m5Y QA9273-48-80R17:10:28 Tevin Rodriguez,I spoke with Daya from the device clinic and was able to get you in on 02/17/23 at 2:30pmAt the [facility] [address] [place] [address] Dr [facility] 45231Etgsu 201. [phone] will give the doctors plenty of time to get you ready for your surgery.I also left you a voice message on your phone. Please let us know that you have received this message.Thank you for using [facility] [employer] to manage your healthcare needs,Sincerely,AMNA WOLF RN 02/04/2023 4:14 PM 34356-4Zjcrowcmp encounter LfrwIO6847-88-34L82:16:17Teleph one encounter NoteTXT1.2.840.272248.1.13.104. 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 Pre-D submission hinged on that and has NOT happened as pt is not cleared and was in fact told to lose weight. 18259-4Azgiaabwv encounter NwuoZJ6956-36-50R72:54:41Teleph one encounter NoteTXT1.2.840.221457.1.13.104. 2.7.2.873822|[id number] ble for patient sruv07088-4QkgfRZNOHYKHHSWTshtc tted C-CDA narrative textSUR-PLASTIC AND RECONSTRUCTIVE SURGERY STAFFSUR-PLASTIC AND RECONSTRUCTIVE SURGERY STAFF[address] 05177OQKCSXWMWUDYEDEHTYURLK9201 -12-21T16:54:411.2.840.194185.1 .72.3.15|1.2.840.805672.1.13.[address]2.727879_[id number] [facility]-PLASTIC AND RECONSTRUCTIVE SURGERY STAFF [facility] 2023-01-27 16:31:17 0vfnszBXFPcRYFS1hMU7mxCyXm7ARTu CqesheKxmJHDZmuJCUf7+J2mBv73Xzw bc7585-89-72G03:31:17 Patient would like to get surgery schedule. Please advise on date. 76696-2Zxmqrcfqm encounter CoqnIJ8890-24-10Y03:31:40Teleph one encounter NoteTXT1.2.840.818513.1.13.104. 2.7.2.541854|[id number] ble for patient uuco92885-1RzmlODSRLCOBIQNMyswj tted C-CDA narrative yvmf137751627Mflty W Branham RN[address] CxzjNjgnsrnxxSdtyuhpuyCMHN44046 57862RXLUPOMCGPJRAXFKIUYIID9167 -12-21T16:31:401.2.840.708030.1 .72.3.15|1.2.840.268380.1.13.10 4.2.7.2.727879_[id number] Quynh Baer RN [facility] 2022-10-19 11:16:42 2FZDClYP1UYxI4XVlqLvWlp0QjkIiVz +HcO1RG4MTr5RtH0RRhYy9I1M2JOLIk Pc2291-89-49A08:16:42 Patient has been scheduled with MONALISA Ontiveros for 10/26/2022 at 11 AM. 20505-4Gdemdmsnk encounter IxtsPI6214-66-06U84:17:15Teleph one encounter NoteTXT1.2.840.179439.1.13.104. 2.7.2.237578|[id number] ble for patient xpqa17984-4MncuJL290131455Rrznx a M Thorsen [address] 07199LXAFYQSVQHDJKMBJOWLAXY9868 -09-12T11:17:151.2.840.602501.1 .72.3.15|1.2.840.879381.1.13.10 4.2.7.2.727879_[id number] Chandler Neff [facility] 2022-10-18 17:27:51 1MVt8YvBHEEwXegtFoH4piFp3wkUgHk MFeyqUkRbv0V7h0WwVYuV7qLYbRnA+x bw9603-53-55T08:27:51 Called patient and discussed peeling with patient, that it is to be expected as part of the healing process. Patient noted the clobetasol helped the itching, but the peeling started several days afterwards and and was painful. Patient to call the clinic with any further questions. 92191-0Mtmvausww encounter RzteXP7331-63-07D25:29:20Teleph one encounter NoteTXT1.2.840.441894.1.13.104. 2.7.2.308313|1383691130HJIbvbac ble for patient nkdy32686-5LhfqWAMEI-FOAHVAHSSV YDER-DERMATOLOGY[address] 28230NZJUUGFBAYOIPHTFHNVZAN9439 -09-11T17:29:201.2.840.153716.1 .72.3.15|1.2.840.415758.1.13.10 4.2.7.2.727879_[id number] KIZZY-DERMATOLOGY [facility] 2022-10-18 12:51:13 hM2/GRVCr5gj/GaM8stgUXZmbrBbzNC GD7sjQQfTo8lGxejB5Wb/HsJ7YB2Poq 9t3639-94-97C67:51:13 That is to be expected as the rash heals and may last up to 2 weeks. Continue w topicals. 05232-3Fiqluovhp encounter AwcaLH3957-51-01X91:51:40Teleph one encounter NoteTXT1.2.840.115527.1.13.104. 2.7.2.537344|7383150124UWWnzndf ble for patient rldw23725-7FdgrALWTR-RNYBFVHVDG Y STAFFDER-DERMATOLOGY STAFF[address] 59147NPLKICWJFYZKCBFZBNJDLW6741 -09-11T12:51:401.2.840.760825.1 .72.3.15|1.2.840.610424.1.13.10 4.2.7.2.727879_[id number] [facility]-DERMATOLOGY STAFF [facility] 2022-10-18 10:34:17 pjJdlqVrFJRBZAwS4D2ZMXskXTOnNsJ OBIgcTfclR/Ltqg1cTOc1OtTTAe7Lzf 0E0731-71-33Z89:34:17 Routing to provider and [place] [address]-6Rypbvobtx encounter WzbuFB0895-25-53S30:34:49Teleph one encounter NoteTXT1.2.840.299511.1.13.104. 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 46721-2Hltlfdgau encounter KxxwZN1546-91-30Y27:50:15Teleph one encounter NoteTXT1.2.840.814434.1.13.104. 2.7.2.384006|[id number] ble for patient twqn66932-8JuucGYDLGKXLYP[address] 46678QDECBPQKYUXQAJKICYFIXE2827 -09-11T09:50:151.2.840.003155.1 .72.3.15|1.2.840.073558.1.13.10 4.2.7.2.727879_[id number] [facility] 2022-10-18 08:20:22 xuQeTNB2f5f5EiOg5FVGGWupC5lieT9 KZjeZSZv0QLBxAiTZtN2V5IfBMkATly pk1852-61-78L91:20:22 I reviewed her note from Dermatology. We need to have her seen to be sure the rash is no longer hyperkeratotic, but has become smooth-surfaced (reducing her risk of infection). Please schedule an OV with Cristal and the garment can be further discussed.We gave her a handout at her 1st visit, can give that to her again and review firmness, full coverage over the surgical sites, etc. 32160-2Mugrmvcta encounter AegoSY7321-47-83K56:24:01Teleph one encounter NoteTXT1.2.840.223446.1.13.104. 2.7.2.643297|[id number] ble for patient mgfw88469-0KxryPUGLK-LDYTSVQ AND RECONSTRUCTIVE SURGERY STAFFSUR-PLASTIC AND RECONSTRUCTIVE SURGERY [address] MewsTgmjsmgipFomthcckbRXPM[address] 47600QILSVYBIPOUKDKJZVQDVRP9589 -09-11T08:24:011.2.840.355993.1 .72.3.15|1.2.840.975350.1.13.[address]727879_[id number] [facility]-PLASTIC AND RECONSTRUCTIVE SURGERY [facility] 2022-10-14 15:19:16 7nEcBJ6MiqzhO/TZbMfc1HzA3GuIhH/ 5tig1y/Ut3Yym5BSPndFMaq6qb0+kW7 yr5105-63-47I38:19:16 Routing to to see if a clearance letter is recommended. 49426-3Xpvsbirql encounter KyowWO2663-39-26K39:21:20Teleph one encounter NoteTXT1.2.840.464100.1.13.104. 2.7.2.583980|[id number] ble for patient fvnr49543-6ObdiDQMMRPLPXN[address] 57054CUVFDNPEDCYYKVJYAUHCQJ9188 -09-07T15:21:201.2.840.015802.1 .72.3.15|1.2.840.713230.1.13.10 4.2.7.2.727879_[id number] [facility] 2022-10-14 11:41:12 yPgW+lb7MSb8vLBrtBQsXX0ltMy6Hr3 mxrO0CpwGl61UEEnc2n2JXjlFpvgqFp uH4124-26-68Z85:41:12 Lazaro Ray is a 61 year old femalePatient states feet are peeling and she has been using rx given to her for bleeding vesicles. Last night patient found spot on foot and this morning her feet on peeling and she doesn't know if this is supposed to be happening or if something is wrong. Please advise. 47404-4Enpkhenqp encounter TrlrFQ9519-03-84F93:43:15Teleph one encounter NoteTXT1.2.840.970743.1.13.104. 2.7.2.675497|[id number] [facility] pyjd12442-4UfkjKR4655506Jrccm [address] Howard[address]TX[address] 87482XCIUVNITMGYGKPPGQODXYZ5573 -09-07T11:43:151.2.840.725415.1 .72.3.15|1.2.840.706165.1.13.10 4.2.7.2.727879_[id number] Birgit Estes [facility] 2022-10-07 11:07:07 0pPAKObtfDapi0106An5woX5JX+1dUl kokr+BTA7KkOJuSU2BvmtrFBr6ygnn6 lv0644-43-71F46:07:07 Patient was seen in clinic today. 80642-2Rghnvolly encounter NvdtPJ0673-35-58U27:07:17Teleph one encounter NoteTXT1.2.840.421448.1.13.104. 2.7.2.071754|[id number] [facility] zroi69838-2QouiDN456932732Ccdoh da Adkins [address] HuxvKjitigmjfTxuiwivysAEUV96634 55041OJUSZDOFRNMDVHRZOQNJXZ9167 -08-31T11:07:171.2.840.418133.1 .72.3.15|1.2.840.335246.1.13.10 4.2.7.2.727879_[id number] Sierra Foss LVN [facility] 2022-10-07 11:00:00 ++ELElrtkWrFunO+ZrLDm00q3L/0GT1 sjX5tmQ5MoM7MlkUDDUd32O4bg2P5v5 pz5346-47-23X44:00:00 Images from the original note were not included.Venipuncture collection performed by clean technique on the left anticubitus. Total of 2 attempts were made. Slight pressure and a bandage/dressing were applied to the site(s). The patient experienced no complications. The following specimens were processed according to instructions and sent to [facility] laboratories per lab order on 10/07/2022: LT BLUE SST 5 RED LAV 2 PPT 1 DK GREEN (LiHep) DK GREEN (SodH) IRWIN DK BLUE (K2) DK BLUE (S) ACD Blood Culture NIPT/NTD 98458-2Tvpte KdflCJ2385-01-52N79:35:54Nurse NoteTXT1.2.840.959930.1.13.104. 2.7.2.112904|[id number] ble for patient jija75518-4Bpvxp NoteLN[address]TX[address] 25241RSZANHPBBVFBKUBYOMQEIY4870 -08-31T11:35:541.2.840.894195.1 .72.3.15|1.2.840.142038.1.13.10 4.2.7.2.727879_[id number] [facility] 2022-10-06 12:24:03 LUf5jDGyXXljRqlHskYlI1YAoCsRHt1 FvUocuoRzt3icMknLqyODLatf5rrTOK YK1368-51-33D43:24:03 Let her know to keep appt. Would still like to evaluate her rash in person 40759-1Pyqyjgnbd encounter HeesZL2198-82-83E04:24:03Teleph one encounter NoteTXT1.2.840.688190.1.13.104. 2.7.2.623028|[id number] ble for patient jxpl53070-3GngfYWCTT-WANOMDWKQP Y STAFFDER-DERMATOLOGY STAFF[address] 10938ABELXSUTETCNWNLYBPGBWA2612 -08-30T12:24:031.2.840.782846.1 .72.3.15|1.2.840.239342.1.13.10 4.2.7.2.727879_[id number] KIZZY-DERMATOLOGY STAFF [facility] 2022-10-06 10:08:41 u71ZM/5/n6AzczH1LmeV+irxmc1cieM Uq39j613lqpLsE2GA2uRAhSHafnxH6Q Ub4165-33-43T97:08:41 Lazaro Ray is a 61 year old female.Patient is calling because she has an appointment for tomorrow (10/07) but wants to clarify if she will be able to go.She states that after her appointment on 09/16, she was supposed to get labs completed; however, she was not able to get them done. She states that her nurse at the shelter would be able to complete the labs, because she had labs done a few days prior to appointment and would just use the blood already taken. She said that then the results would be sent to Dr. Mera but they were not sent. She wants to know if she will still be able to go to appointment. [phone] (home) .Thank you. 72293-8Xscypswmd encounter LhgdGS4102-28-68M55:19:59Teleph one encounter NoteTXT1.2.840.639953.1.13.104. 2.7.2.243905|[id number] [facility] uiwr52944-1MmdaOA554770524Uluug ca Z [address] YuwjVaykpmvteWifkxmibuNBHY44969 25675KYXYLCTMOPWDPSCUKGTWZR8268 -08-30T10:19:591.2.840.498475.1 .72.3.15|1.2.840.053027.1.13.10 4.2.7.2.727879_[id number] Lilian Earlyshyam [facility] 2022-09-21 13:02:55 F+HmQfmkyHZIw7j8wQu6LPyV7PsYhCj 3jiKTfCAiD0mkw3HvvWZiemFcV3zrI2 eM6409-45-14V97:02:55 message asking patient to provide fax number to the facility she is staying at for lab orders to be sent. 91581-1Fjhovggus encounter WiweDF8898-40-89O67:03:22Teleph one encounter NoteTXT1.2.840.343666.1.13.104. 2.7.2.247324|[id number] ble for patient cxqa42580-3ZhwiHX503493226Qsxwa da Adkins [address] 16005LTYIXAZBIOLVVLKAFQJCHT4122 -08-15T13:03:221.2.840.020951.1 .72.3.15|1.2.840.253156.1.13.10 4.2.7.2.727879_[id number] Sierra Foss [facility] 2022-09-17 15:58:19 aJnx1+rulCxoUGBrj1YVx1Xx0puvCm0 R3QHikPsrYmqOGD0uPrYDr4jjPj8hnn 3N5581-41-54P41:58:19 Lazaro Ray is a 61 year old femalePt was seen in clinic 09/16/22 and left without doing her labs. Pt is in shelter and would like to see if orders can be sent there so they can do her lab and send over results.Please advise [phone] (home) 05077-3Zghghhkye encounter JcbxMU8105-21-42W68:00:32Teleph one encounter NoteTXT1.2.840.209589.1.13.104. 2.7.2.017234|[id number] ble for patient gego16341-7RzkgHU023726508Jwqew [address] 97196WDYOXLGGHJRMUIJZNMQOBX2965 -08-11T16:00:321.2.840.037319.1 .72.3.15|1.2.840.101396.1.13.10 4.2.7.2.727879_[id number] Shantell Bejarano [facility] 2022-09-10 14:11:33 gEodGSre0X3cOtSr07gGEqS2Iu//v4R dtJO+FfZw5w/jf255aP8JX+eYXSCMRG Hc3489-60-65M38:11:33 Images from the original note were not included.Received message from [facility] clinic nurse, called back to patient and voicemail answered.Home monitor reviewed, no anomalies noted. No high rate events recorded. No indication on home monitoring site of why it would be alerting her. It is possible the cellular connection has been intermittent.Left pt message she can call back to device clinic [phone], would advise if she is having chest pain to seek ER care or call 911.Left help line phone number to [employer] home monitoring to call and they can assist to troubleshoot if the monitor is not connecting as expected, but device is currently connecting.Will forward update to [employer] as well. 85352-3Dxczqrlmh encounter PmndUE7815-59-72H54:18:42Teleph one encounter NoteTXT1.2.840.093784.1.13.104. 2.7.2.552678|[id number] [facility] nnur68956-5BqbjSM672283615Utxls a Saunders RNUT[address] WkkoTngpefchcVvnsvpvtrGMSF840[address] 77353JAXWHDHRAHIOYEHZZKBFTY2169 -08-04T14:18:421.2.840.184931.1 .72.3.15|1.2.840.328303.1.13.10 4.2.7.2.727879_[id number] Daya Arboleda RN [facility] 2022-09-10 13:51:15 LFViFO7urP1i0lWzEjCtWnFdK8dp8Ee 1mDKyYGYl0UwPGhK/1xGuqXmHzHJ2e+ ou5506-90-34R71:51:15 Received call regarding pacemaker monitor alarming. Stated she has sent the recording multiple times, still alarming, c/o chest pain/pressure 04/16, attempted to notify device clinic, [facility] with mobile #. Advised patient toSeek medical attention as pacemaker continues alarming, chest pain / pressure. Verbalized understanding 48936-1Cuiqovycz encounter CzscNA9997-72-58H94:55:57Teleph one encounter NoteTXT1.2.840.319358.1.13.104. 2.7.2.817838|[id number] ble for patient xnqu71334-0NksoCM403734263Ykaww A Roller RN[address] CufjLqvnexvkoKmbwaepbgSNJD359[address] 12204VVZYWFXFGADJEBXQTUCVKN9050 -08-04T13:55:571.2.840.676185.1 .72.3.15|1.2.840.482980.1.13.10 4.2.7.2.727879_[id number] Amna Wolf RN [facility]
--- NOTE | 2023-03-08 17:54 | RAD REPORT ---
EXAM DESCRIPTION: CT - Spine Lumbar Wo Con - 03/08/2023 5:45 pm CLINICAL HISTORY: Radiculopathy. fall;Pain COMPARISON: No comparisons TECHNIQUE: Axial noncontrast CT imaging of the lumbar spine was performed with coronal and sagittal re-formatted images. All CT scans are performed using dose optimization technique as appropriate and may include automated exposure control or mA/KV adjustment according to patient size. FINDINGS: No acute lumbar spine fracture seen. No aggressive marrow pattern or malalignment. Paraspinal tissues are normal in thickness. No paraspinal abscess or hematoma seen. Mild posterior disc bulges are present lower lumbar levels. No significant canal stenosis suspected, although assessment is limited of disc disease by CT. IMPRESSION: No acute lumbar spine abnormality. Mild lower lumbar spondylosis.
--- NOTE | 2023-03-08 18:05 | ER ---
Nurse's Notes [facility] Name: Jennifer Petty Age: 62 yrs Sex: Female : 1960 Arrival Date: 03/08/2023 Time: 16:51 Bed 19 Private MD: Diagnosis: Low back pain with radiculopathy Presentation: 03/08 16:56 Chief complaint: EMS states: Pt complaining of lower back pain. Pt was at PT and cm10 started having increased pain to her pelvis. Pt has history of chronic pain and took her Oxy at 1513. Pt also took Ibuprofen 800mg and Tylenol 1000mg at 1100. Ebola Screen: Patient denies travel to an Ebola-affected area in the 21 days before illness onset. No symptoms or risks identified at this time. Initial Sepsis Screen: Does the patient meet any 2 criteria? No. Patient's initial sepsis screen is negative. Does the patient have a suspected source of infection? No. Patient's initial sepsis screen is negative. Risk Assessment: Do you want to hurt yourself or someone else? Patient reports no desire to harm self or others. Onset of symptoms was March 08, 2023. 16:56 Method Of Arrival: EMS: [facility] cm10 16:56 Acuity: JOSE ENRIQUE 4 cm10 17:01 Coronavirus screen: Vaccine status: Patient reports receiving the 2nd dose of the covid cm10 vaccine. Client denies travel out of the [place] in the last 14 days. Historical: - Allergies: 16:55 Adhesives; cm10 16:55 Baclofen; cm10 16:55 Ciprofloxacin; cm10 16:55 Cymbalta; cm10 16:55 Depakote; cm10 16:55 GABAPENTIN; cm10 16:55 iodine I 131 Tosutumomab; cm10 16:55 Lisinopril; cm10 16:55 Losartan; cm10 16:55 Macrobid; cm10 16:55 Midrin; cm10 16:55 Morphine; cm10 16:55 Robaxin; cm10 16:55 Septra; cm10 16:55 Sinografin; cm10 16:55 topiramate; cm10 16:55 Toradol; cm10 16:55 tramadol; cm10 - PMHx: 16:55 Allergic rhinitis; Anemia; vitamin d deficiency; Hypothyroidism; angina pectoris; CVA; cm10 dementia without behavioral disturbances; epilepsy; Fibromyalgia; GERD; Hyperlipidemia; Hypertensive disorder; insomnia; Lupus erythematosus; peptic ulcer; protein-calorie malnutrition; - Immunization history:: Adult Immunizations up to date. - Social history:: Smoking status: Patient denies any tobacco usage or history of. Screenin:[address] [facility] ED Fall Risk Assessment (Adult) History of falling in the last 3 months, cm10 including since admission Yes- single mechanical fall (1 pt) Confusion or Disorientation No (0 pts) Intoxicated or Sedated No (0 pts) Impaired Gait No (0 pts) Mobility Assist Device Used No (0 pt) Altered Elimination No (0 pt) Score/Fall Risk Level 0 - 2 = Low Risk Oriented to surroundings, Maintained a safe environment, Hourly rounding (assess needs \\T\\ fall precautionary measures) done. Abuse screen: Denies threats or abuse. Denies injuries from another. Nutritional screening: No deficits noted. Tuberculosis screening: No symptoms or risk factors identified. Assessment: 17:48 General: Appears in no apparent distress. comfortable, Behavior is calm, cooperative. cm10 Pain: Complains of pain in low back area. Neuro: No deficits noted. Level of Consciousness is awake, alert, obeys commands, Oriented to person, place, time, situation. Cardiovascular: No deficits noted. Patient's skin is warm and dry. Respiratory: No deficits noted. Airway is patent Respiratory effort is even, unlabored, Respiratory pattern is regular, symmetrical. GI: No deficits noted. No signs and/or symptoms were reported involving the gastrointestinal system. : No deficits noted. No signs and/or symptoms were reported regarding the genitourinary system. EENT: No deficits noted. No signs and/or symptoms were reported regarding the EENT system. Derm: No deficits noted. No signs and/or symptoms reported regarding the dermatologic system. Skin is intact, Skin is pink, warm \\T\\ dry. Musculoskeletal: No deficits noted. Range of motion: intact in all extremities, Reports pain in low back area. 18:26 Reassessment: Patient and/or family updated on plan of care and expected duration. Pain cm10 level reassessed. Patient is alert, oriented x 3, equal unlabored respirations, skin warm/dry/pink. Patient states feeling better. Patient states symptoms have improved. 18:29 Reassessment: [facility] contacted for transportation back at this time. cm10 Per Jennifer, she will call back when transport is set up. 20:52 Reassessment: Per Jennifer at [facility] "Mr. Yanes wheelchair service said he was cm10 in the area and should be there soon. I spoke to him about an hour ago.". Vital Signs: 17:01 BP 160 / 92; Pulse 78; Resp 16; Temp 97.5(IR); Pulse Ox 100% ; Pain 10/10; cm10 17:07 Weight 83.91 kg; Height 5 ft. 9 in. ; cm10 18:00 BP 138 / 70; Pulse 64; Resp 16; Pulse Ox 100% ; cm10 17:07 Body Mass Index 27.32 (83.91 kg, 175.26 cm) cm10 17:01 Pain Scale: Adult cm10 ED Course: 16:54 Patient arrived in ED. cm10 16:58 Triage completed. cm10 17:02 Segundo Montero MD is Attending Physician. kiya 17:02 Jennifer Mak, AYLIN is Primary Nurse. cm10 17:02 Arm band placed on Patient placed in an exam room, on a stretcher, on pulse oximetry. cm10 17:05 Wm Tavarez MD is Attending Physician. rt 17:47 CT Lumbar Spine Wo Con In Process Unspecified. EDMS 17:48 Patient moved back from CT. cm10 17:49 Patient has correct armband on for positive identification. Bed in low position. Call cm10 light in reach. Side rails up X2. Provided Education on: ER process and procedures.. 17:49 No provider procedures requiring assistance completed. Patient did not have IV access cm10 during this emergency room visit. Administered Medications: 17:25 CANCELLED (Duplicate Order): fentanyl (pf)100 mcg IVP once rt 17:37 Drug: Lidoderm Topical Patch 5 % (700 mg/patch) 1 patches Topical once; leave on for 12 cm10 hours; cover most painful area; may cut into smaller pieces Route: Topical; Site: affected area; 18:25 Follow up: Response: No adverse reaction; Pain is decreased cm10 17:37 Drug: fentaNYL (PF) IM 100 mcg IM once Route: IM; Site: right gluteus; cm10 18:24 Follow up: Response: No adverse reaction; Pain is decreased cm10 17:38 Drug: Cyclobenzaprine PO 10 mg PO once Route: PO; cm10 18:25 Follow up: Response: No adverse reaction; Pain is decreased cm10 17:38 Drug: Acetaminophen PO 1000 mg PO once Route: PO; cm10 18:25 Follow up: Response: No adverse reaction; Pain is decreased cm10 17:38 Drug: Ibuprofen PO 600 mg PO once Route: PO; cm10 18:25 Follow up: Response: No adverse reaction; Pain is decreased cm10 Medication: 17:49 VIS not applicable for this client. cm10 Outcome: 18:04 Discharge ordered by . rt 21:19 Discharged to home via wheelchair, Pt left with wheelchair company called by [place] [phone] [address]. 21:19 Condition: good 21:19 Discharge instructions given to patient, Instructed on discharge instructions, follow up and referral plans. Demonstrated understanding of instructions, follow-up care, 21:20 Patient left the ED. cm10 Signatures: Dispatcher [employer] EDSegundo Nunez MD MD cha Turking[place], Ryan, MD MD rt Martinez, Clarissa, RN RN cm10
--- NOTE | 2023-03-08 18:05 | EDPHYS ---
Physician Documentation [facility] Name: Jennifer Petty Age: 62 yrs Sex: Female : 1960 Arrival Date: 03/08/2023 Time: 16:51 Bed 19 Private MD: ED Physician Wm Tavarez HPI: 03/08 17:54 This 62 yrs old Female presents to ER via EMS with complaints of Back pain. rt 17:54 Patient presents to the ED with back pain. The patient has chronic back pain, of the rt sciatic nerve. The patient states that she had a fall about 1 to 2 weeks ago, had worsening pain to the right back during Tuesday, stating that it radiates laterally which is similar in character but different in location compared to her prior sciatic pain. Pain worsened today while at physical therapy. Symptoms are moderate in severity, no other aggravating elevating factors.. Historical: - Allergies: 16:55 Adhesives; cm10 16:55 Baclofen; cm10 16:55 Ciprofloxacin; cm10 16:55 Cymbalta; cm10 16:55 Depakote; cm10 16:55 GABAPENTIN; cm10 16:55 iodine I 131 Tosutumomab; cm10 16:55 Lisinopril; cm10 16:55 Losartan; cm10 16:55 Macrobid; cm10 16:55 Midrin; cm10 16:55 Morphine; cm10 16:55 Robaxin; cm10 16:55 Septra; cm10 16:55 Sinografin; cm10 16:55 topiramate; cm10 16:55 Toradol; cm10 16:55 tramadol; cm10 - PMHx: 16:55 Allergic rhinitis; Anemia; vitamin d deficiency; Hypothyroidism; angina pectoris; CVA; cm10 dementia without behavioral disturbances; epilepsy; Fibromyalgia; GERD; Hyperlipidemia; Hypertensive disorder; insomnia; Lupus erythematosus; peptic ulcer; protein-calorie malnutrition; - Immunization history:: Adult Immunizations up to date. - Social history:: Smoking status: Patient denies any tobacco usage or history of. ROS: 17:54 Constitutional: Negative for fever, chills, and weight loss, Cardiovascular: Negative rt for chest pain, palpitations, and edema, Respiratory: Negative for shortness of breath, cough, wheezing, and pleuritic chest pain, Abdomen/GI: Negative for abdominal pain, nausea, vomiting, diarrhea, and constipation, MS/Extremity: Negative for injury and deformity, Skin: Negative for injury, rash, and discoloration, Neuro: Negative for headache, weakness, numbness, tingling, and seizure, Psych: Negative for depression, anxiety, suicide ideation, homicidal ideation, and hallucinations, 17:54 Back: Positive for pain at rest, pain with movement, radiated pain, Exam: 17:54 Constitutional: This is a well developed, well nourished patient who is awake, alert, rt and in no acute distress. Head/Face: Normocephalic, atraumatic. Chest/axilla: Normal chest wall appearance and motion. Nontender with no deformity. No lesions are appreciated. Cardiovascular: Regular rate and rhythm with a normal S1 and S2. No gallops, murmurs, or rubs. Normal PMI, no JVD. No pulse deficits. Respiratory: Lungs have equal breath sounds bilaterally, clear to auscultation and percussion. No rales, rhonchi or wheezes noted. No increased work of breathing, no retractions or nasal flaring. Abdomen/GI: Soft, non-tender, with normal bowel sounds. No distension or tympany. No guarding or rebound. No evidence of tenderness throughout. Skin: Warm, dry with normal turgor. Normal color with no rashes, no lesions, and no evidence of cellulitis. MS/ Extremity: Pulses equal, no cyanosis. Neurovascular intact. Full, normal range of motion. Neuro: Awake and alert, GCS 15, oriented to person, place, time, and situation. Cranial nerves II-XII grossly intact. Motor strength 5/5 in all extremities. Sensory grossly intact. Cerebellar exam normal. Normal gait. Psych: Awake, alert, with orientation to person, place and time. Behavior, mood, and affect are within normal limits. 17:54 Back: Tenderness to the right paraspinal region, no midline tenderness., Vital Signs: 17:01 BP 160 / 92; Pulse 78; Resp 16; Temp 97.5(IR); Pulse Ox 100% ; Pain 10/10; cm10 17:07 Weight 83.91 kg; Height 5 ft. 9 in. ; cm10 18:00 BP 138 / 70; Pulse 64; Resp 16; Pulse Ox 100% ; cm10 17:07 Body Mass Index 27.32 (83.91 kg, 175.26 cm) cm10 17:01 Pain Scale: Adult cm10 MDM: 17:02 Patient medically screened. kiya 18:04 Differential Diagnosis Radicular pain, disc bulge. Data reviewed: vital signs, nurses rt notes, radiologic studies. I considered the following discharge prescriptions or medication management in the emergency department Medications were administered in the Emergency Department. See MAR. Independent interpretation of the following test(s) in the Emergency Department CT Scan: My interpretation is No malalignment seen on interpretation of CT scan images. Test considered but Not performed: Labs: Low suspicion for renal colic, urinalysis not indicated. Care significantly affected by the following chronic conditions: Chronic back pain. Counseling: I had a detailed discussion with the patient and/or guardian regarding the historical points, exam findings, and any diagnostic results supporting the discharge/admit diagnosis, radiology results, the need for outpatient follow up, to return to the emergency department if symptoms worsen or persist or if there are any questions or concerns that arise at home. Response to treatment: the patient's symptoms have markedly improved after treatment. 03/08 17:13 Order name: CT Lumbar Spine Wo Con; Complete Time: 17:56 rt Administered Medications: 17:25 CANCELLED (Duplicate Order): fentanyl (pf)100 mcg IVP once rt 17:37 Drug: Lidoderm Topical Patch 5 % (700 mg/patch) 1 patches Topical once; leave on for 12 cm10 hours; cover most painful area; may cut into smaller pieces Route: Topical; Site: affected area; 18:25 Follow up: Response: No adverse reaction; Pain is decreased cm10 17:37 Drug: fentaNYL (PF) IM 100 mcg IM once Route: IM; Site: right gluteus; cm10 18:24 Follow up: Response: No adverse reaction; Pain is decreased cm10 17:38 Drug: Cyclobenzaprine PO 10 mg PO once Route: PO; cm10 18:25 Follow up: Response: No adverse reaction; Pain is decreased cm10 17:38 Drug: Acetaminophen PO 1000 mg PO once Route: PO; cm10 18:25 Follow up: Response: No adverse reaction; Pain is decreased cm10 17:38 Drug: Ibuprofen PO 600 mg PO once Route: PO; cm10 18:25 Follow up: Response: No adverse reaction; Pain is decreased cm10 Disposition Summary: 03/08/23 18:04 Discharge Ordered Notes: Location: Home rt Problem: an acute exacerbation rt Symptoms: have improved rt Condition: Stable rt Diagnosis - Low back pain with radiculopathy rt Followup: rt - With: Private Physician - When: 5 - 6 days - Reason: Discharge Instructions: - Discharge Summary Sheet rt - Lumbosacral Radiculopathy rt Forms: - Medication Reconciliation Form rt - Thank You Letter rt - Antibiotic Education rt - Prescription Opioid Use rt - Patient Portal Instructions rt - Leadership Thank You Letter rt Signatures: Dispatcher [employer] EDSegundo Nunez MD MD cha [place], Ryan, MD MD rt Jennifer Mak RN RN cm10 Corrections: (The following items were deleted from the chart) 17:25 17:13 fentaNYL (PF) IVP 100 mcg IVP once ordered. rt rt
[2023-03-09 08:55] VITALS: BP 138/70; TEMP 97.5; O2SAT 100
== END ==
LOC: ER 16:51
DX: M54.16 Radiculopathy, lumbar region (principal)
CPT/HCPCS: 72131; J2001; J3010

== ENCOUNTER 2023-05-08 19:14 | Emergency (ER) | payer OTHER ==
--- OUTSIDE RECORDS SUMMARY | 2023-05-08 19:33 | XMS REPORT | Continuity of Care Document ---
Author Name Unknown Address [address] [place] [address] [facility] Address [address] [place] [address] Care Team Providers Care Media Production Manager Name Role Phone JERRI ELKINS Primary Care Physician CAROLA Arcos Attending Clinician Unavailable THAI SALGUERO Attending Clinician Unavailabl e MEL CARRILOL Attending Clinician Unav ailMEL Hutson Attending Clinician Unav ailable FRANKLYN SCHWARTZ Attending Clinician Unavail able FRANKLYN SCHWARTZ Attending Clinician Unavail Wanda Kim MD Attending Clinician [phone] Doctor Unassigned, [place] Attending Clinician U Thai Anguiano MD Attending Clinician [phone] Irais Benson MD Attending Clinician [phone] IRAIS BENSON Attending Clinician Unavailable CRISTAL ONTIVEROS Attending Clinician Unavailable Cristal Katz Attending Clinician [phone] EDIL FENG Attending Clinician Unavailable Scott AMIN, Edil Attending Clinician [phone] Carola Cruz MD Attending Clinician [phone] [facility] Attending Clinician Unavailable Adalberto Mera MD Attending Clinician [phone] LUDMILA RUIZ Attending Clinician Unavailable Ludmila Ruiz MD Attending Clinician [phone] WANDA SOTO Attending Clinician UnavailKRISTI Fernandez Attending Clinician KRISTI Alston Attending Clinician Solitario Shaw MD, Dagoberto Attending Clinician [phone] DAGOBERTO SHAW Attending Clinician Unavailable Jose Angel VIERA, Heaven Attending Clinician Unava abdi Peralta MD, Marco A Abbott Attending Clinician + BRENT WELLS Attending Clinician UnavailCHARLOTTE Enrique Attending Clinician Unavaila maribell Villalpando TRAFFIC MAINTENANCE SUPERVISOR, [place] Attending Clinician [phone] Devendra VIERA, Arina Attending Clinician Unavailable PATRICIA BOLAÑOS Attending Clinician Unavailable Noel Richmond DO Attending Clinician [phone] John AMIN, Tom Attending Clinician [phone] Thomas AMIN, Patricia Attending Clinician [phone] Marita AMIN, Franklyn Damico Attending Clinician [phone] Francesca AMIN, Alta Attending Clinician + [phone] Bhumika AMIN, Jamey Barton Attending Clinician + [phone] SHAISTA GUERRA Attending Clinician Unavailabl chalo Guerra MD, Shaista Attending Clinician [phone] Only, Adc Test Attending Clinician Unavailable Milena OROPEZA Attending Clinician Unavailable Milena Dickey Attending Clinician [phone] Maryan Mendoza Attending Clinician [phone] Kylee Delarosa MD Attending Clinician [phone] Leslye Franz MD Attending Clinician [phone] Radha Holden MD Attending Clinician [phone] Haritha AMIN, [facility] Attending Clinician [phone] BALDEMAR MEJIAS Attending Clinician Unavaila maribell Mejias MD, Baldemar Kate Attending Clinician [phone] Dagoberto AMIN, Ilana Valencia Attending Clinician Amarilis Bergman DO Attending Clinician [phone] PREMA MENDEZ Attending Clinician Unavailable TRINIDAD INFANTE Attending Clinician Unavailab ILANA Young Attending Clinician Un available BEATRIS HOLT Attending Clinician Unavailable ANNEMARIE EDGAR Attending Clinician Unavailable TYLER BASS Attending Clinician Unavailable LUDMILA MERLOS Attending Clinician Unavailable RADHA MCINTOSH Attending Clinician Unavaila ble ROCKY, CAR Sellers Attending Clinician Unavaila ble ROCKY, GERRYHIL T Attending Clinician Unavaila LUDMILA Viveros Admitting Clinician Unavailable EDIL FENG Admitting Clinician Unavailable DAGOBERTO SHAW Admitting Clinician Unavailable Dagoberto Shaw MD Admitting Clinician CHARLOTTE VILLALPANDO Admitting Clinician Unavaila PATRICIA Dunn Admitting Clinician Unavailable Patricia Bolaños MD Admitting Clinician Ludmila Ruiz MD Admitting Clinician SHAISTA GUERRA Admitting Clinician Unavailabl Shaista Scott MD Admitting Clinician [phone] Milena OROPEZA Admitting Clinician Unavailable Leslye Franz MD Admitting Clinician LESLYE FRANZ Admitting Clinician Unavailable DENA ESTEBAN Admitting Clinician Unavailable ERLIN SCHWARTZ Admitting Clinician Unavailab RADHA Florentino Admitting Clinician Unavaila maribell Payers Payer Name Policy Type Policy Number Effective Date Expirati on Date Source [facility] [id number] 2019 00:00:00 [place] [id number] 2017 00:00:00 MEDICARE PART A \\T\\ B [id number] 1996 00:00:00 [employer] [id number] 2022 00:00:00 [facility] [id number] 2022 00:00:00 Problems Condition Name Condition Details Condition Category Status Onset Date Resolution Date Last Treatment Date Treating Clinician Comments Source Preop cardiovasc ular exam Preop cardiovasc ular exam Disease Active 2022-02 00:00: 00 [facility] SVT (supravent ricular tachycardi a) SVT (supravent ricular tachycardi a) Disease Active 2022-02 2-07 00:00: 00 [facility] Slow transit constipati on Slow transit constipati on Disease Active 4-27 00:00: 00 [facility] Incontinen ce of feces with fecal urgency Incontinen ce of feces with fecal urgency Disease Active 4-27 00:00: 00 [facility] Ventral hernia without obstructio n or gangrene Ventral hernia without obstructio n or gangrene Disease Active 2021-02 1-21 00:00: 00 [facility] Incisional hernia, without obstructio n or gangrene Incisional hernia, without obstructio n or gangrene Disease Active 8-28 00:00: 00 [facility] Frequent falls Frequent falls Disease Active 4-07 00:00: 00 [facility] Anemia, unspecifie d Anemia, unspecifie d Disease Active 3-30 00:00: 00 [facility] Other specified postproced ural states Other specified postproced ural states Disease Active 3-24 00:00: 00 [facility] Attention to colostomy Attention to colostomy Disease Active 3-16 00:00: 00 [facility] Colostomy status Colostomy status Disease Active 3-16 00:00: 00 [facility] Stercoral ulcer of large intestine Stercoral ulcer of large intestine Disease Active 3-01 00:00: 00 Overview: Formattin g of this note might be different from the original. Added automatic ally from request for surgery [id number] [facility] Colostomy in place Colostomy in place Disease Active 2-11 00:00: 00 Overview: Formattin g of this note might be different from the original. Added automatic ally from request for surgery [id number] [facility] GIB (gastroint estinal bleeding) GIB (gastroint estinal bleeding) Disease Active 1-09 00:00: 00 [facility] Melena Melena Disease Active 02-14 00:00: 00 Overview: Formattin g of this note might be different from the original. Added automatic ally from request for surgery [id number] [facility] Parastomal hernia without obstructio n or gangrene Parastomal hernia without obstructio n or gangrene Disease Active 2020-02 019 00:00: 00 [facility] Syncope and collapse Syncope and collapse Disease Active 09-15 00:00: 00 [facility] Dyslipidem ia Dyslipidem ia Disease Active 09-15 00:00: 00 [facility] Sinus pause status post PPM Sinus pause status post PPM Disease Active 09-15 00:00: 00 [facility] Hypokalemi a Hypokalemi a Disease Active 09-15 00:00: 00 [facility] Pain, unspecifie d Pain, unspecifie d Disease Active 06-02 00:00: 00 [facility] 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 Disease Active 05-23 00:00: 00 [facility] 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 Disease Active 05-23 00:00: 00 [facility] Cerebral infarction , unspecifie d Cerebral infarction , unspecifie d Disease Active 05-23 00:00: 00 [facility] Diaphragma tic hernia with obstructio n, without gangrene Diaphragma tic hernia with obstructio n, without gangrene Disease Active 05-23 00:00: 00 [facility] Diverticul osis of large intestine without perforatio n or abscess without bleeding Diverticul osis of large intestine without perforatio n or abscess without bleeding Disease Active 16 00:00: 00 [facility] Hypertensi ve heart disease without heart failure Hypertensi ve heart disease without heart failure Disease Active 416 00:00: 00 [facility] Hepatomega ly, not elsewhere classified Hepatomega ly, not elsewhere classified Disease Active 16 00:00: 00 [facility] 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 Disease Active 16 00:00: 00 [facility] Muscle weakness (generaliz ed) Muscle weakness (generaliz ed) Disease Active 16 00:00: 00 [facility] Other abnormalit ies of gait and mobility Other abnormalit ies of gait and mobility Disease Active 16 00:00: 00 [facility] Other lack of coordinati on Other lack of coordinati on Disease Active 16 00:00: 00 [facility] Other seizures Other seizures Disease Active 16 00:00: 00 [facility] Personal history of colonic polyps Personal history of colonic polyps Disease Active 16 00:00: 00 [facility] Polyneurop athy, unspecifie d Polyneurop athy, unspecifie d Disease Active 16 00:00: 00 [facility] Systemic lupus erythemato liliya, unspecifie d Systemic lupus erythemato liliya, unspecifie d Disease Active 16 00:00: 00 [facility] Noncomplia nce with treatment regimen Noncomplia nce with treatment regimen Disease Active 4-12 00:00: 00 [facility] Acute blood loss anemia Acute blood loss anemia Disease Active 4-07 00:00: 00 [facility] Perforatio n of sigmoid colon s/p Corby's on 05/13/2020 Perforatio n of sigmoid colon s/p Corby's on 05/13/2020 Disease Active 4-06 00:00: 00 [facility] Therapeuti c opioid-ind uced constipati on (OIC) Therapeuti c opioid-ind uced constipati on (OIC) Disease Active 05-13 00:00: 00 [facility] Chronic, continuous use of opioids Chronic, continuous use of opioids Disease Recurre nce 05-13 00:00: 00 Overview: Formattin g of this note might be different from the original. Percocet [facility] Peritoniti s Peritoniti s Disease Active 05-13 00:00: 00 [facility] Atelectasi s Atelectasi s Disease Active 05-13 00:00: 00 [facility] Perforatio n of intestine (nontrauma tic) Perforatio n of intestine (nontrauma tic) Disease Active 05-13 00:00: 00 [facility] Encounter for surgical aftercare following surgery on the digestive system Encounter for surgical aftercare following surgery on the digestive system Disease Active 05-13 00:00: 00 [facility] Klebsiella pneumoniae (k. pneumoniae ) as the cause of diseases classified elsewhere Klebsiella pneumoniae (k. pneumoniae ) as the cause of diseases classified elsewhere Disease Active 05-13 00:00: 00 [facility] Opioid use, unspecifie d, uncomplica jung Opioid use, unspecifie d, uncomplica jung Disease Active 05-13 00:00: 00 [facility] Stroke of uncertain pathology Stroke of uncertain pathology Disease Active 3-13 00:00: 00 [facility] Discoid lupus Discoid lupus Disease Active 2-10 00:00: 00 [facility] History of systemic lupus erythemato liliya (SLE) History of systemic lupus erythemato liliya (SLE) Disease Active 2-10 00:00: 00 [facility] History of seizure History of seizure Disease Active 2018-02 2-05 00:00: 00 [facility] Mixed hyperlipid emia Mixed hyperlipid emia Disease Active 9-20 00:00: 00 [facility] Prediabete s Prediabete s Disease Active 4-10 00:00: 00 [facility] Kidney lesion, [place], right Kidney lesion, [place], right Disease Active 05-01 00:00: 00 Overview: Formattin g of this note might be different from the original. likely angiolipo ma per Radiology [facility] Kidney lesion, [place], right Kidney lesion, [place], right Disease Active 05-01 00:00: 00 Overview: Formattin g of this note might be different from the original. likely angiolipo ma per Radiology [facility] Hyperthyro idism Hyperthyro idism Disease Active 2017-02 00:00: 00 [facility] Obesity (BMI 30-39.9) Obesity (BMI 30-39.9) Disease Active 2017-02 00:00: 00 [facility] Vitamin D deficiency Vitamin D deficiency Disease Active 10-27 00:00: 00 [facility] Chronic insomnia Chronic insomnia Disease Active 10-16 00:00: 00 [facility] Chronic migraine without aura without status migrainosu s, not intractabl e Chronic migraine without aura without status migrainosu s, not intractabl e Disease Active 10-16 00:00: 00 [facility] Neuropathy Neuropathy Disease Active 10-16 00:00: 00 [facility] Pacemaker Pacemaker Disease Recurre nce 10-16 00:00: 00 [facility] Essential hypertensi on Essential hypertensi on Disease Active 10-16 00:00: 00 [facility] History of hepatitis C History of hepatitis C Disease Active 10-16 00:00: 00 [facility] PUD (peptic ulcer disease) PUD (peptic ulcer disease) Disease Active 10-16 00:00: 00 [facility] Gastroesop hageal reflux disease, esophagiti s presence not specified Gastroesop hageal reflux disease, esophagiti s presence not specified Disease Active 10-16 00:00: 00 [facility] History of urinary tract surgery History of urinary tract surgery Disease Active 10-16 00:00: 00 [facility] Fibromyalg ia Fibromyalg ia Disease Active 10-16 00:00: 00 [facility] Parasomnia Parasomnia Disease Active 10-16 00:00: 00 [facility] Anxiety Anxiety Disease Active 02-20 00:00: 00 Overview: Formattin g of this note might be different from the original. Formattin g of this note might be different from the original. H/o cx pain [facility] Vitamin B12 deficiency Vitamin B12 deficiency Disease Active 02-20 00:00: 00 [facility] IBS (irritable bowel syndrome) IBS (irritable bowel syndrome) Disease Active 2007-02 00:00: 00 [facility] Visceral hyperalges ia Visceral hyperalges ia Disease Active 2007-02 00:00: 00 [facility] Allergic rhinitis Allergic rhinitis Disease Active [facility] Cyst of left kidney Cyst of left kidney Disease Active [facility] Allergies, Adverse Reactions, Alerts Allergy Name Allergy Type Status Severity Reaction(s) Onset Date Inactive Date Treating Clinician Comments Source PREGABAL IN DRUG INGREDI Active Low Swelling 2022-0 7-18 00:00: 00 [facility] Pregabal in Propensi ty to adverse reaction s Active Swelling 2022-0 7-18 00:00: 00 [facility] TOSITUMO MAB DRUG INGREDI Active Unknown-Cmnt 2022-0 3-02 00:00: 00 [facility] Tositumo mab Propensi ty to adverse reaction s Active Unknown - See comments 0 3-02 00:00: 00 [facility] Gabapent in Drug Allergy Active Palpitations 2021-0 3-16 00:00: 00 [facility] GABAPENT IN DRUG INGREDI Active Palpitations 2021-0 3-16 00:00: 00 [facility] Losartan Propensi ty to adverse reaction s Active Cough 2019-0 5-27 00:00: 00 [facility] LOSARTAN DRUG INGREDI Active COUGH 2019-0 5-27 00:00: 00 [facility] Lisinopr il Propensi ty to adverse reaction s Active Cough 10-16 00:00: 00 [facility] LISINOPR IL DRUG INGREDI Active COUGH 10-16 00:00: 00 [facility] Baclofen Propensi ty to adverse reaction s Active Hallucinatio ns 09-28 00:00: 00 [facility] Ciproflo xacin Propensi ty to adverse reaction s Active Hives 09-28 00:00: 00 [facility] Duloxeti ne Propensi ty to adverse reaction s Active Other - See comments 09-28 00:00: 00 Transamin itis [facility] Divalpro ex Sodium Propensi ty to adverse reaction s Active Hives 09-28 00:00: 00 [facility] Gabapent in Enacarbi l Propensi ty to adverse reaction s Active Unknown - See comments 09-28 00:00: 00 [facility] Nitrofur antoin Monohyd/ M-Cryst Propensi ty to adverse reaction s Active Hives 09-28 00:00: 00 [facility] Isometh- Dichlora l-Acetam inophn Propensi ty to adverse reaction s Active Shortness of Breath 09-28 00:00: 00 [facility] Morphine Sulfate Propensi ty to adverse reaction s Active Hives 09-28 00:00: 00 [facility] Methocar bamol Propensi ty to adverse reaction s Active Diarrhea 09-28 00:00: 00 [facility] Septra I.V. Propensi ty to adverse reaction s Active Shortness of Breath 09-28 00:00: 00 [facility] Diatrizo ate And Iodipami de Amber Propensi ty to adverse reaction s Active Hives 09-28 00:00: 00 [facility] Topirama te Propensi ty to adverse reaction s Active Other - See comments 09-28 00:00: 00 Tingling, overwhelm ing feeliing [facility] Ketorola c Trometha mine Propensi ty to adverse reaction s Active Other - See comments 09-28 00:00: 00 Restless legs [facility] Tramadol Propensi ty to adverse reaction s Active Other - See comments 09-28 00:00: 00 shaky legs [facility] Adhesive Propensi ty to adverse reaction s Active Other - See comments 09-28 00:00: 00 redness [facility] Iodine And Iodide Containi ng Products Propensi ty to adverse reaction s Active Hives 09-28 00:00: 00 [facility] ADHESIVE Drug Class Active Other-Cmnt 09-28 00:00: 00 [facility] BACLOFEN DRUG INGREDI Active Hallucinates 09-28 00:00: 00 [facility] CIPROFLO XACIN DRUG INGREDI Active Hives 09-28 00:00: 00 [facility] IODINE AND IODIDE CONTAINI NG PRODUCTS Drug Class Active Hives 09-28 00:00: 00 [facility] DULOXETI NE DRUG INGREDI Active Other-Cmnt 09-28 00:00: 00 [facility] DIVALPRO EX SODIUM DRUG INGREDI Active Hives 09-28 00:00: 00 [facility] GABAPENT IN ENACARBI L DRUG INGREDI Active Unknown-Cmnt 09-28 00:00: 00 [facility] NITROFUR ANTOIN MONOHYD/ M-CRYST DRUG Active Hives 09-28 00:00: 00 [facility] ISOMETH- DICHLORA L-ACETAM INOPHN DRUG Active Hives 09-28 00:00: 00 [facility] MORPHINE SULFATE DRUG INGREDI Active Hives 09-28 00:00: 00 [facility] METHOCAR BAMOL DRUG INGREDI Active Diarrhea 09-28 00:00: 00 [facility] SEPTRA I.V. DRUG Active Hives 09-28 00:00: 00 [facility] DIATRIZO ATE AND IODIPAMI DE AMBER DRUG Active Hives 09-28 00:00: 00 [facility] TOPIRAMA TE DRUG INGREDI Active Other-Cmnt 09-28 00:00: 00 [facility] KETOROLA C TROMETHA MINE DRUG INGREDI Active Hives 09-28 00:00: 00 [facility] TRAMADOL DRUG INGREDI Active Other-Cmnt 09-28 00:00: 00 [facility] Social History Social Habit Start Date Stop Date Quantity Comments Source Gender identity [facility] SDOH Alcohol Frequency [facility] History SDOH Alcohol Std Drinks [facility] History SDOH Alcohol Binge [facility] Alcohol intake 2023-03-11 00:00:00 2023-03-11 00:00:00 Current drinker of alcohol (finding) [facility] History of Social function 2022-10-07 00:00:00 2022-10-07 00:00:00 [facility] Exposure to SARS-CoV-2 (event) 2022-05-24 00:00:00 2022-06-03 09:25:00 Not sure [facility] Tobacco use and exposure 2021-09-14 00:00:00 2021-09-14 00:00:00 Smokeless tobacco non-user [facility] Education - What is the highest level of school you have completed or the highest degree you have received? 2020-01-11 00:00:00 2020-01-11 00:00:00 Associate degree: academic program [facility] Alcohol Comment 2018-10-10 00:00:00 2018-10-10 00:00:00 Rare occasions [facility] Sex Assigned At 1960 00:00:00 1960 00:00:00 [facility] Smoking Status Start Date Stop Date Source Never smoked tobacco [facility] Medications Ordered Medication Name Filled Medication Name Start Date Stop Date Current Medication? Ordering Clinician Indication Dosage Frequency Signature (SIG) Comments Components Source clobetasoL 0.05 % cream 2022-02 0 00:00: 00 Yes [id number] Apply twice daily to feet where the redness. [facility] clobetasoL 0.05 % cream 2022-02 030 00:00: 00 Yes [id number] Apply twice daily to feet where the redness. [facility] clobetasoL 0.05 % cream 2022-02 030 00:00: 00 Yes [id number] Apply twice daily to feet where the redness. [facility] clobetasoL 0.05 % cream 2022-02 0-30 00:00: 00 Yes [id number] Apply twice daily to feet where the redness. [facility] clobetasoL 0.05 % cream 2022-02 030 00:00: 00 Yes [id number] Apply twice daily to feet where the redness. [facility] clobetasoL 0.05 % cream 2022-02 030 00:00: 00 Yes [id number] Apply twice daily to feet where the redness. [facility] clobetasoL 0.05 % cream 2022-02 030 00:00: 00 Yes [id number] Apply twice daily to feet where the redness. [facility] clobetasoL 0.05 % cream 2022-02 030 00:00: 00 Yes [id number] Apply twice daily to feet where the redness. [facility] clobetasoL 0.05 % cream 2022-02 030 00:00: 00 Yes [id number] Apply twice daily to feet where the redness. [facility] clobetasoL 0.05 % cream 2022-02 030 00:00: 00 Yes [id number] Apply twice daily to feet where the redness. [facility] clobetasoL 0.05 % cream 2022-02 0-30 00:00: 00 Yes [id number] Apply twice daily to feet where the redness. [facility] clobetasoL 0.05 % cream 2022- 0-30 00:00: 00 Yes [id number] Apply twice daily to feet where the redness. [facility] clobetasoL 0.05 % cream 2022-02 0-30 00:00: 00 Yes [id number] Apply twice daily to feet where the redness. [facility] clobetasoL 0.05 % cream 2022-02 0-30 00:00: 00 Yes [id number] Apply twice daily to feet where the redness. [facility] clobetasoL 0.05 % cream 2022-02 0-30 00:00: 00 Yes [id number] Apply twice daily to feet where the redness. [facility] clobetasoL 0.05 % cream 2022-02 0-30 00:00: 00 Yes [id number] Apply twice daily to feet where the redness. [facility] clobetasoL 0.05 % cream 2022-02 030 00:00: 00 Yes [id number] Apply twice daily to feet where the redness. [facility] clobetasoL 0.05 % cream 2022-02 0 00:00: 00 Yes [id number] Apply twice daily to feet where the redness. [facility] clobetasoL 0.05 % cream 2022-02 030 00:00: 00 Yes [id number] Apply twice daily to feet where the redness. [facility] clobetasoL 0.05 % cream 2022-02 030 00:00: 00 Yes [id number] Apply twice daily to feet where the redness. [facility] clobetasoL 0.05 % cream 2022-02 030 00:00: 00 Yes [id number] Apply twice daily to feet where the redness. [facility] clobetasoL 0.05 % cream 2022-02 030 00:00: 00 Yes [id number] Apply twice daily to feet where the redness. [facility] clobetasoL 0.05 % cream 2022-02 0-30 00:00: 00 Yes [id number] Apply twice daily to feet where the redness. [facility] clobetasoL 0.05 % cream 2022-1 0-30 00:00: 00 Yes [id number] Apply twice daily to feet where the redness. [facility] clobetasoL 0.05 % cream 2022-02 0-30 00:00: 00 Yes [id number] Apply twice daily to feet where the redness. [facility] clobetasoL 0.05 % cream 2022-02 0-30 00:00: 00 Yes [id number] Apply twice daily to feet where the redness. [facility] clobetasoL 0.05 % cream 2022-02 0-30 00:00: 00 Yes [id number] Apply twice daily to feet where the redness. [facility] clobetasoL 0.05 % cream 2022-02 0-30 00:00: 00 Yes [id number] Apply twice daily to feet where the redness. [facility] clobetasoL 0.05 % cream 2022-02 0-30 00:00: 00 Yes [id number] Apply twice daily to feet where the redness. [facility] clobetasoL 0.05 % cream 2022-02 0-30 00:00: 00 Yes [id number] Apply twice daily to feet where the redness. [facility] propranoloL 40 mg tablet 2022-02 0-03 09:11: 11-09 00:00 :00 No 40mg Take 40 mg by mouth 3 (three) times daily. [facility] MELOXICAM ORAL 2022-02 0-03 09:11: 11-09 00:00 :00 No 15mg Take 15 mg by mouth. [facility] cephALEXin 500 mg capsule 2022-02 0-03 09:: 11-09 00:00 :00 No 500mg Take 1 capsule by mouth 4 (four) times daily. [facility] propranoloL 40 mg tablet 2022-02 0-03 :: 11-09 00:00 :00 No 40mg Take 40 mg by mouth 3 (three) times daily. [facility] MELOXICAM ORAL 2022- 0-03 09:11: 11-09 00:00 :00 No 15mg Take 15 mg by mouth. [facility] cephALEXin 500 mg capsule 2023-1 0-03 09:11: 08 2022- 10- 00:00 :00 No 500mg Take 1 capsule by mouth 4 (four) times daily. [facility] tacrolimus 0.1 % ointment 0 11-01 00:00: 00 Yes [id number] Apply to area(s) 2 (two) times daily. Safe for the face. [facility] doxycycline monohydrate 100 mg capsule 2022-0 11-01 00:00: 00 Yes [id number] 100mg Take 1 capsule by mouth in the morning and 1 capsule in the evening. [facility] Compression Socks, Medium Misc 2022-0 11-01 00:00: 00 Yes [id number] Use as directed [facility] tacrolimus 0.1 % ointment 11-01 00:00: 00 Yes [id number] Apply to area(s) 2 (two) times daily. Safe for the face. [facility] doxycycline monohydrate 100 mg capsule 0 11-01 00:00: 00 Yes [id number] 100mg Take 1 capsule by mouth in the morning and 1 capsule in the evening. [facility] Compression Socks, Medium Misc 2022-0 11-01 00:00: 00 Yes [id number] Use as directed [facility] tacrolimus 0.1 % ointment 0 11-01 00:00: 00 Yes [id number] Apply to area(s) 2 (two) times daily. Safe for the face. [facility] doxycycline monohydrate 100 mg capsule 2022-0 11-01 00:00: 00 Yes [id number] 100mg Take 1 capsule by mouth in the morning and 1 capsule in the evening. [facility] Compression Socks, Medium Misc 2022-0 11-01 00:00: 00 Yes [id number] Use as directed [facility] tacrolimus 0.1 % ointment 2022-0 11-01 00:00: 00 Yes [id number] Apply to area(s) 2 (two) times daily. Safe for the face. [facility] doxycycline monohydrate 100 mg capsule 2022-0 11-01 00:00: 00 Yes [id number] 100mg Take 1 capsule by mouth in the morning and 1 capsule in the evening. [facility] ity [facility] Compression Socks, Medium Misc 2022-0 11-01 00:00: 00 Yes [id number] Use as directed [facility] tacrolimus 0.1 % ointment 2022-0 11-01 00:00: 00 Yes [id number] Apply to area(s) 2 (two) times daily. Safe for the face. [facility] it[facility] doxycycline monohydrate 100 mg capsule 2022-0 11-01 00:00: 00 Yes [id number] 100mg Take 1 capsule by mouth in the morning and 1 capsule in the evening. [facility] Compression Socks, Medium Misc 2022-0 11-01 00:00: 00 Yes [id number] Use as directed [facility] tacrolimus 0.1 % ointment 0 11-01 00:00: 00 Yes [id number] Apply to area(s) 2 (two) times daily. Safe for the face. [facility] it[facility] doxycycline monohydrate 100 mg capsule 2022-0 11-01 00:00: 00 Yes [id number] 100mg Take 1 capsule by mouth in the morning and 1 capsule in the evening. [facility] it[facility] Compression Socks, Medium Misc 2022-0 11-01 00:00: 00 Yes [id number] Use as directed [facility] 2022-0 11-01 00:00: 00 Yes [id number] Apply to area(s) 2 (two) times daily. Safe for the face. [facility] doxycycline monohydrate 100 mg capsule 2022-0 25 00:00: 00 Yes [id number] 100mg Take 1 capsule by mouth in the morning and 1 capsule in the evening. [facility] Compression Socks, Medium Misc 2022-0 25 00:00: 00 Yes [id number] Use as directed [facility] % ointment 2022-0 11-01 00:00: 00 Yes [id number] Apply to area(s) 2 (two) times daily. Safe for the face. [facility] doxycycline monohydrate 100 mg capsule 2022-0 25 00:00: 00 Yes [id number] 100mg Take 1 capsule by mouth in the morning and 1 capsule in the evening. [facility] Compression Socks, Medium Misc 3-0 25 00:00: 00 Yes [id number] Use as directed [facility] tacrolimus 0.1 % ointment 2022-0 11-01 00:00: 00 Yes [id number] Apply to area(s) 2 (two) times daily. Safe for the face. [facility] doxycycline monohydrate 100 mg capsule 2022-0 25 00:00: 00 Yes [id number] 100mg Take 1 capsule by mouth in the morning and 1 capsule in the evening. [facility] Compression Socks, Medium Misc 2022-0 25 00:00: 00 Yes [id number] Use as directed [facility] tacrolimus 0.1 % ointment 2022-0 11-01 00:00: 00 Yes [id number] Apply to area(s) 2 (two) times daily. Safe for the face. [facility] doxycycline monohydrate 100 mg capsule 2022-0 11-01 00:00: 00 Yes [id number] 100mg Take 1 capsule by mouth in the morning and 1 capsule in the evening. [facility] Compression Socks, Medium Misc 2022-0 25 00:00: 00 Yes [id number] Use as directed [facility] tacrolimus 0.1 % ointment 2022-0 11-01 00:00: 00 Yes [id number] Apply to area(s) 2 (two) times daily. Safe for the face. [facility] doxycycline monohydrate 100 mg capsule 2022-0 -25 00:00: 00 Yes [id number] 100mg Take 1 capsule by mouth in the morning and 1 capsule in the evening. [facility] Compression Socks, Medium Misc 3-0 -25 00:00: 00 Yes [id number] Use as directed [facility] tacrolimus 0.1 % ointment 2022-0 11-01 00:00: 00 Yes [id number] Apply to area(s) 2 (two) times daily. Safe for the face. [facility] mg capsule 2022-0 11-01 00:00: 00 Yes [id number] 100mg Take 1 capsule by mouth in the morning and 1 capsule in the evening. [facility] Compression Socks, Medium Misc 2022-0 11-01 00:00: 00 Yes [id number] Use as directed [facility] 0.1 % ointment 0 11-01 00:00: 00 Yes [id number] Apply to area(s) 2 (two) times daily. Safe for the face. [facility] doxycycline monohydrate 100 mg capsule 0 11-01 00:00: 00 Yes [id number] 100mg Take 1 capsule by mouth in the morning and 1 capsule in the evening. [facility] Compression Socks, Medium Misc 2022-0 11-01 00:00: 00 Yes [id number] Use as directed [facility] tacrolimus 0.1 % ointment 0 11-01 00:00: 00 Yes [id number] Apply to area(s) 2 (two) times daily. Safe for the face. [facility] doxycycline monohydrate 100 mg capsule 2022-0 11-01 00:00: 00 Yes [id number] 100mg Take 1 capsule by mouth in the morning and 1 capsule in the evening. [facility] Compression Socks, Medium Misc 2022-0 11-01 00:00: 00 Yes [id number] Use as directed [facility] tacrolimus 0.1 % ointment 0 11-01 00:00: 00 Yes [id number] Apply to area(s) 2 (two) times daily. Safe for the face. [facility] doxycycline monohydrate 100 mg capsule 2022-0 11-01 00:00: 00 Yes [id number] 100mg Take 1 capsule by mouth in the morning and 1 capsule in the evening. [facility] Compression Socks, Medium Misc 0 11-01 00:00: 00 Yes [id number] Use as directed [facility] % ointment 0 11-01 00:00: 00 Yes [id number] Apply to area(s) 2 (two) times daily. Safe for the face. [facility] doxycycline monohydrate 100 mg capsule 0 11-01 00:00: 00 Yes [id number] 100mg Take 1 capsule by mouth in the morning and 1 capsule in the evening. [facility], Medium Misc 2022-0 11-01 00:00: 00 Yes [id number] Use as directed [facility] tacrolimus 0.1 % ointment 0 11-01 00:00: 00 Yes [id number] Apply to area(s) 2 (two) times daily. Safe for the face. [facility] doxycycline monohydrate 100 mg capsule 0 11-01 00:00: 00 Yes [id number] 100mg Take 1 capsule by mouth in the morning and 1 capsule in the evening. [facility] Compression Socks, Medium Misc 2022-0 11-01 00:00: 00 Yes [id number] Use as directed [facility] tacrolimus 0.1 % ointment 11-01 00:00: 00 Yes [id number] Apply to area(s) 2 (two) times daily. Safe for the face. [facility] doxycycline monohydrate 100 mg capsule 0 11-01 00:00: 00 Yes [id number] 100mg Take 1 capsule by mouth in the morning and 1 capsule in the evening. [facility] Compression Socks, Medium Misc 2022-0 11-01 00:00: 00 Yes [id number] Use as directed [facility] tacrolimus 0.1 % ointment 0 11-01 00:00: 00 Yes [id number] Apply to area(s) 2 (two) times daily. Safe for the face. [facility] doxycycline monohydrate 100 mg capsule 2022-0 11-01 00:00: 00 Yes [id number] 100mg Take 1 capsule by mouth in the morning and 1 capsule in the evening. [facility] it[facility] Compression Socks, Medium Misc 3-0 11-01 00:00: 00 Yes [id number] Use as directed [facility] tacrolimus 0.1 % ointment 2022-0 11-01 00:00: 00 Yes [id number] Apply to area(s) 2 (two) times daily. Safe for the face. [facility] doxycycline monohydrate 100 mg capsule 2022-0 11-01 00:00: 00 Yes [id number] 100mg Take 1 capsule by mouth in the morning and 1 capsule in the evening. [facility] Compression Socks, Medium Misc 2022-0 11-01 00:00: 00 Yes [id number] Use as directed [facility].1 % ointment 0 11-01 00:00: 00 Yes [id number] Apply to area(s) 2 (two) times daily. Safe for the face. [facility] doxycycline monohydrate 100 mg capsule 2022-0 11-01 00:00: 00 Yes [id number] 100mg Take 1 capsule by mouth in the morning and 1 [facility] evening. [facility] Compression Socks, Medium Misc 2022-0 11-01 00:00: 00 Yes [id number] Use as directed [facility] tacrolimus 0.1 % ointment 2022-0 11-01 00:00: 00 Yes [id number] Apply to area(s) 2 (two) times daily. Safe for the face. [facility] doxycycline monohydrate 100 mg capsule 2022-0 25 00:00: 00 Yes [id number] 100mg Take 1 capsule by mouth in the morning and 1 capsule in the evening. [facility] Compression Socks, Medium Misc 2022-0 11-01 00:00: 00 Yes [id number] Use as directed [facility] tacrolimus 0.1 % ointment 2022-0 11-01 00:00: 00 Yes [id number] Apply to area(s) 2 (two) times daily. Safe for the face. [facility] doxycycline monohydrate 100 mg capsule 2022-0 25 00:00: 00 Yes [id number] 100mg Take 1 capsule by mouth in the morning and 1 capsule in the evening. [facility] Compression Socks, Medium Misc 3-0 11-01 00:00: 00 Yes [id number] Use as directed [facility] tacrolimus 0.1 % ointment 2022-0 11-01 00:00: 00 Yes [id number] Apply to area(s) 2 (two) times daily. Safe for the face. [facility] it[facility] doxycycline monohydrate 100 mg capsule 2022-0 11-01 00:00: 00 Yes [id number] 100mg Take 1 capsule by mouth in the morning and 1 capsule in the evening. [facility] Compression Socks, Medium Misc 2022-0 11-01 00:00: 00 Yes [id number] Use as directed [facility] tacrolimus 0.1 % ointment 2022-0 11-01 00:00: 00 Yes [id number] Apply to area(s) 2 (two) times daily. Safe for the face. [facility] doxycycline monohydrate 100 mg capsule 2022-0 11-01 00:00: 00 Yes [id number] 100mg Take 1 capsule by mouth in the morning and 1 capsule in the evening. [facility] Compression Socks, Medium Misc 2022-0 11-01 00:00: 00 Yes [id number] Use as directed [facility] tacrolimus 0.1 % ointment 2022-0 11-01 00:00: 00 Yes [id number] Apply to area(s) 2 (two) times daily. Safe for the face. [facility] doxycycline monohydrate 100 mg capsule 2022-0 25 00:00: 00 Yes [id number] 100mg Take 1 capsule by mouth in the morning and 1 capsule in the evening. [facility] Compression Socks, Medium Misc 3-0 25 00:00: 00 Yes [id number] Use as directed [facility] 0.1 % ointment 2022-0 11-01 00:00: 00 Yes [id number] Apply to area(s) 2 (two) times daily. Safe for the face. [facility] monohydrate 100 mg capsule 2022-0 11-01 00:00: 00 Yes [id number] 100mg Take 1 capsule by mouth in the morning and 1 capsule in the evening. [facility] Compression Socks, Medium Misc 2022-0 11-01 00:00: 00 Yes [id number] Use as directed [facility] 0.1 % ointment 0 11-01 00:00: 00 Yes [id number] Apply to area(s) 2 (two) times daily. Safe for the face. [facility] doxycycline monohydrate 100 mg capsule 2022-0 11-01 00:00: 00 Yes [id number] 100mg Take 1 capsule by mouth in the morning and 1 capsule in the evening. [facility] Compression Socks, Medium Misc 2022-0 11-01 00:00: 00 Yes [id number] Use as directed [facility] tacrolimus 0.1 % ointment 0 11-01 00:00: 00 Yes [id number] Apply to area(s) 2 (two) times daily. Safe for the face. [facility] doxycycline monohydrate 100 mg capsule 2022-0 11-01 00:00: 00 Yes [id number] 100mg Take 1 capsule by mouth in the morning and 1 capsule in the evening. [facility] Compression Socks, Medium Misc 2022-0 11-01 00:00: 00 Yes [id number] Use as directed [facility] tacrolimus 0.1 % ointment 0 11-01 00:00: 00 Yes [id number] Apply to area(s) 2 (two) times daily. Safe for the face. [facility] doxycycline monohydrate 100 mg capsule 2022-0 11-01 00:00: 00 Yes [id number] 100mg Take 1 capsule by mouth in the morning and 1 capsule in the evening. [facility] Compression Socks, Medium Misc 2022-0 25 00:00: 00 Yes [id number] Use as directed [facility] tacrolimus 0.1 % ointment 0 11-01 00:00: 00 Yes [id number] Apply to area(s) 2 (two) times daily. Safe for the face. [facility] monoh[facility] 100 mg capsule 2022-0 11-01 00:00: 00 Yes [id number] 100mg Take 1 capsule by mouth in the morning and 1 capsule in the evening. [facility] Comp[facility] Socks, Medium Misc 2022-0 11-01 00:00: 00 Yes [id number] Use as directed [facility] tacrolimus 0.1 % ointment 0 11-01 00:00: 00 Yes [id number] Apply to area(s) 2 (two) times daily. Safe for the face. [facility] doxycycline monohydrate 100 mg capsule 2022-0 11-01 00:00: 00 Yes [id number] 100mg Take 1 capsule by mouth in the morning and 1 capsule in the evening. [facility] Compression Socks, Medium Misc 2022-0 11-01 00:00: 00 Yes [id number] Use as directed [facility] tacrolimus 0.1 % ointment 0 11-01 00:00: 00 Yes [id number] Apply to area(s) 2 (two) times daily. Safe for the face. [facility] doxycycline monohydrate 100 mg capsule 2022-0 11-01 00:00: 00 Yes [id number] 100mg Take 1 capsule by mouth in the morning and 1 capsule in the evening. [facility] Compression Socks, Medium Misc 2022-0 25 00:00: 00 Yes [id number] Use as directed [facility] tacrolimus 0.1 % ointment 2022-0 11-01 00:00: 00 Yes [id number] Apply to area(s) 2 (two) times daily. Safe for the face. [facility] doxycycline monohydrate 100 mg capsule 2022-0 25 00:00: 00 Yes [id number] 100mg Take 1 capsule by mouth in the morning and 1 capsule in the evening. [facility] Compression Socks, Medium Misc 2022-0 11-01 00:00: 00 Yes [id number] Use as directed [facility] tacrolimus 0.1 % ointment 2022-0 11-01 00:00: 00 Yes [id number] Apply to area(s) 2 (two) times daily. Safe for the face. [facility] doxycycline monohydrate 100 mg capsule 2022-0 11-01 00:00: 00 Yes [id number] 100mg Take 1 capsule by mouth in the morning and 1 capsule in the evening. [facility] Compression Socks, Medium Misc 2022-0 11-01 00:00: 00 Yes [id number] Use as directed [facility] 0.1 % ointment 0 11-01 00:00: 00 Yes [id number] Apply to area(s) 2 (two) times daily. Safe for the face. [facility] doxycycline monohydrate 100 mg capsule 2022-0 11-01 00:00: 00 Yes [id number] 100mg Take 1 capsule by mouth in the morning and 1 capsule in the evening. [facility] Compression Socks, Medium Misc 2022-0 11-01 00:00: 00 Yes [id number] Use as directed [facility] tacrolimus 0.1 % ointment 0 11-01 00:00: 00 Yes [id number] Apply to area(s) 2 (two) times daily. Safe for the face. [facility] doxycycline monohydrate 100 mg capsule 2022-0 11-01 00:00: 00 Yes [id number] 100mg Take 1 capsule by mouth in the morning and 1 capsule in the evening. [facility] Compression Socks, Medium Misc 2022-0 11-01 00:00: 00 Yes [id number] Use as directed [facility] tacrolimus 0.1 % ointment 2022-0 11-01 00:00: 00 Yes [id number] Apply to area(s) 2 (two) times daily. Safe for the face. [facility] doxycycline monohydrate 100 mg capsule 2022-0 11-01 00:00: 00 Yes [id number] 100mg Take 1 capsule by mouth in the morning and 1 capsule in the evening. [facility] Compression Socks, Medium Misc 3-0 25 00:00: 00 Yes [id number] Use as directed [facility] tacrolimus 0.1 % ointment 2022-0 11-01 00:00: 00 Yes [id number] Apply to area(s) 2 (two) times daily. Safe for the face. [facility] mon[facility] mg capsule 2022-0 11-01 00:00: 00 Yes [id number] 100mg Take 1 capsule by mouth in the morning and 1 capsule in the evening. [facility] Compression Socks, Medium Misc 3-0 11-01 00:00: 00 Yes [id number] Use as directed [facility] tacrolimus 0.1 % ointment 0 11-01 00:00: 00 Yes [id number] Apply to area(s) 2 (two) times daily. Safe for the face. [facility] doxycycline monohydrate 100 mg capsule 2022-0 11-01 00:00: 00 Yes [id number] 100mg Take 1 capsule by mouth in the morning and 1 capsule in the evening. [facility] Compression Socks, Medium Misc 2022-0 11-01 00:00: 00 Yes [id number] Use as directed [facility] tacrolimus 0.1 % ointment 2022-0 11-01 00:00: 00 Yes [id number] Apply to area(s) 2 (two) times daily. Safe for the face. [facility] doxycycline monohydrate 100 mg capsule 2022-0 25 00:00: 00 Yes [id number] 100mg Take 1 capsule by mouth in the morning and 1 capsule in the evening. [facility] Compression Socks, Medium Misc 3-0 -25 00:00: 00 Yes [id number] Use as directed [facility] tacrolimus 0.1 % ointment 2022-0 25 00:00: 00 Yes [id number] Apply to area(s) 2 (two) times daily. Safe for the face. [facility] doxycycline monohydrate 100 mg capsule 0 11-01 00:00: 00 Yes [id number] 100mg Take 1 capsule by mouth in the morning and 1 capsule in the evening. [facility] Compression Socks, Medium Misc 11-01 00:00: 00 Yes [id number] Use as directed [facility] meloxicam 15 mg tablet 2022-0 10-31 00:00: 00 Yes [facility] atorvastati n 10 mg tablet 2022-0 10-31 00:00: 00 Yes [facility] meloxicam 15 mg tablet 2022-0 10-31 00:00: 00 Yes [facility] atorvastati n 10 mg tablet 2022-0 10-31 00:00: 00 Yes [facility] meloxicam 15 mg tablet 2022-0 10-31 00:00: 00 Yes [facility] atorvastati n 10 mg tablet 2022-0 10-31 00:00: 00 Yes [facility] meloxicam 15 mg tablet 2022-0 10-31 00:00: 00 Yes [facility] atorvastati n 10 mg tablet 2022-0 10-31 00:00: 00 Yes [facility] meloxicam 15 mg tablet 2022-0 10-31 00:00: 00 Yes [facility] atorvastati n 10 mg tablet 2022-0 10-31 00:00: 00 Yes [facility] meloxicam 15 mg tablet 2022-0 10-31 00:00: 00 Yes [facility] atorvastati n 10 mg tablet 2022-0 10-31 00:00: 00 Yes [facility] meloxicam 15 mg tablet 2022-0 10-31 00:00: 00 Yes [facility] atorvastati n 10 mg tablet 2022-0 10-31 00:00: 00 Yes [facility] meloxicam 15 mg tablet 3-0 10-31 00:00: 00 Yes [facility] atorvastati n 10 mg tablet 2022-0 10-31 00:00: 00 Yes [facility] meloxicam 15 mg tablet 3-0 10-31 00:00: 00 Yes [facility] atorvastati n 10 mg tablet 2022-0 10-31 00:00: 00 Yes [facility] meloxicam 15 mg tablet 2022-0 10-31 00:00: 00 Yes [facility] atorvastati n 10 mg tablet 2022-0 10-31 00:00: 00 Yes [facility] meloxicam 15 mg tablet 3-0 10-31 00:00: 00 Yes [facility] atorvastati n 10 mg tablet 2022-0 10-31 00:00: 00 Yes [facility] meloxicam 15 mg tablet 3-0 10-31 00:00: 00 Yes [facility] atorvastati n 10 mg tablet 2022-0 10-31 00:00: 00 Yes [facility] meloxicam 15 mg tablet 2022-0 10-31 00:00: 00 Yes [facility] atorvastati n 10 mg tablet 2022-0 10-31 00:00: 00 Yes [facility] meloxicam 15 mg tablet 3-0 10-31 00:00: 00 Yes [facility] atorvastati n 10 mg tablet 2022-0 10-31 00:00: 00 Yes [facility] meloxicam 15 mg tablet 3-0 10-31 00:00: 00 Yes [facility] atorvastati n 10 mg tablet 3-0 10-31 00:00: 00 Yes [facility] meloxicam 15 mg tablet 3-0 10-31 00:00: 00 Yes [facility] atorvastati n 10 mg tablet 3-0 10-31 00:00: 00 Yes [facility] meloxicam 15 mg tablet 3-0 10-31 00:00: 00 Yes [facility] atorvastati n 10 mg tablet 3-0 10-31 00:00: 00 Yes [facility] meloxicam 15 mg tablet 3-0 10-31 00:00: 00 Yes [facility] atorvastati n 10 mg tablet 2022-0 10-31 00:00: 00 Yes [facility] meloxicam 15 mg tablet 3-0 10-31 00:00: 00 Yes [facility] atorvastati n 10 mg tablet 3-0 10-31 00:00: 00 Yes [facility] meloxicam 15 mg tablet 2022-0 10-31 00:00: 00 Yes [facility] atorvastati n 10 mg tablet 3-0 10-31 00:00: 00 Yes [facility] meloxicam 15 mg tablet 3-0 10-31 00:00: 00 Yes [facility] atorvastati n 10 mg tablet 2022-0 10-31 00:00: 00 Yes [facility] meloxicam 15 mg tablet 3-0 10-31 00:00: 00 Yes [facility] atorvastati n 10 mg tablet 2022-0 10-31 00:00: 00 Yes [facility] meloxicam 15 mg tablet 3-0 10-31 00:00: 00 Yes [facility] atorvastati n 10 mg tablet 2022-0 10-31 00:00: 00 Yes [facility] meloxicam 15 mg tablet 3-0 10-31 00:00: 00 Yes [facility] atorvastati n 10 mg tablet 3-0 10-31 00:00: 00 Yes [facility] meloxicam 15 mg tablet 3-0 24 00:00: 00 Yes [facility] atorvastati n 10 mg tablet 3-0 10-31 00:00: 00 Yes [facility] meloxicam 15 mg tablet 3-0 24 00:00: 00 Yes [facility] atorvastati n 10 mg tablet 3-0 24 00:00: 00 Yes [facility] meloxicam 15 mg tablet 3-0 10-31 00:00: 00 Yes [facility] atorvastati n 10 mg tablet 3-0 10-31 00:00: 00 Yes [facility] meloxicam 15 mg tablet 3-0 10-31 00:00: 00 Yes [facility] atorvastati n 10 mg tablet 2022-0 10-31 00:00: 00 Yes [facility] meloxicam 15 mg tablet 3-0 10-31 00:00: 00 Yes [facility] atorvastati n 10 mg tablet 2022-0 10-31 00:00: 00 Yes [facility] meloxicam 15 mg tablet 2022-0 10-31 00:00: 00 Yes [facility] atorvastati n 10 mg tablet 2022-0 10-31 00:00: 00 Yes [facility] meloxicam 15 mg tablet 3-0 10-31 00:00: 00 Yes [facility] atorvastati n 10 mg tablet 2022-0 10-31 00:00: 00 Yes [facility] meloxicam 15 mg tablet 3-0 10-31 00:00: 00 Yes [facility] atorvastati n 10 mg tablet 2022-0 10-31 00:00: 00 Yes [facility] meloxicam 15 mg tablet 2022-0 10-31 00:00: 00 Yes [facility] atorvastati n 10 mg tablet 2022-0 10-31 00:00: 00 Yes [facility] meloxicam 15 mg tablet 3-0 10-31 00:00: 00 Yes [facility] atorvastati n 10 mg tablet 3-0 10-31 00:00: 00 Yes [facility] meloxicam 15 mg tablet 3-0 10-31 00:00: 00 Yes [facility] atorvastati n 10 mg tablet 2022-0 10-31 00:00: 00 Yes [facility] meloxicam 15 mg tablet 3-0 10-31 00:00: 00 Yes [facility] atorvastati n 10 mg tablet 2022-0 10-31 00:00: 00 Yes [facility] meloxicam 15 mg tablet 2022-0 10-31 00:00: 00 Yes [facility] atorvastati n 10 mg tablet 2022-0 10-31 00:00: 00 Yes [facility] meloxicam 15 mg tablet 3-0 10-31 00:00: 00 Yes [facility] atorvastati n 10 mg tablet 2022-0 10-31 00:00: 00 Yes [facility] meloxicam 15 mg tablet 2022-0 10-31 00:00: 00 Yes [facility] atorvastati n 10 mg tablet 2022-0 10-31 00:00: 00 Yes [facility] propranoloL 20 mg tablet 2022-0 10-29 00:00: 00 Yes [facility] propranoloL 20 mg tablet 3-0 10-29 00:00: 00 Yes [facility] propranoloL 20 mg tablet 3-0 10-29 00:00: 00 Yes [facility] propranoloL 20 mg tablet 3-0 10-29 00:00: 00 Yes [facility] propranoloL 20 mg tablet 3-0 10-29 00:00: 00 Yes [facility] propranoloL 20 mg tablet 3-0 10-29 00:00: 00 Yes [facility] propranoloL 20 mg tablet 3-0 10-29 00:00: 00 Yes [facility] propranoloL 20 mg tablet 3-0 10-29 00:00: 00 Yes [facility] propranoloL 20 mg tablet 3-0 10-29 00:00: 00 Yes [facility] propranoloL 20 mg tablet 3-0 10-29 00:00: 00 Yes [facility] propranoloL 20 mg tablet 3-0 10-29 00:00: 00 Yes [facility] propranoloL 20 mg tablet 3-0 10-29 00:00: 00 Yes [facility] propranoloL 20 mg tablet 3-0 10-29 00:00: 00 Yes [facility] propranoloL 20 mg tablet 3-0 10-29 00:00: 00 Yes [facility] propranoloL 20 mg tablet 2022-0 10-29 00:00: 00 Yes [facility] propranoloL 20 mg tablet 2022-0 10-29 00:00: 00 Yes [facility] propranoloL 20 mg tablet 2022-0 10-29 00:00: 00 Yes [facility] propranoloL 20 mg tablet 2022-0 10-29 00:00: 00 Yes [facility] propranoloL 20 mg tablet 2022-0 10-29 00:00: 00 Yes [facility] propranoloL 20 mg tablet 3-0 10-29 00:00: 00 Yes [facility] propranoloL 20 mg tablet 2022-0 10-29 00:00: 00 Yes [facility] propranoloL 20 mg tablet 2022-0 10-29 00:00: 00 Yes [facility] propranoloL 20 mg tablet 2022-0 10-29 00:00: 00 Yes [facility] propranoloL 20 mg tablet 2022-0 10-29 00:00: 00 Yes [facility] propranoloL 20 mg tablet 2022-0 10-29 00:00: 00 Yes [facility] propranoloL 20 mg tablet 2022-0 10-29 00:00: 00 Yes [facility] propranoloL 20 mg tablet 2022-0 10-29 00:00: 00 Yes [facility] propranoloL 20 mg tablet 2022-0 10-29 00:00: 00 Yes [facility] propranoloL 20 mg tablet 2022-0 10-29 00:00: 00 Yes [facility] propranoloL 20 mg tablet 2022-0 10-29 00:00: 00 Yes [facility] propranoloL 20 mg tablet 2022-0 10-29 00:00: 00 Yes [facility] propranoloL 20 mg tablet 3-0 10-29 00:00: 00 Yes [facility] propranoloL 20 mg tablet 3-0 10-29 00:00: 00 Yes [facility] propranoloL 20 mg tablet 3-0 10-29 00:00: 00 Yes [facility] propranoloL 20 mg tablet 0 10-29 00:00: 00 Yes [facility] propranoloL 20 mg tablet 0 10-29 00:00: 00 Yes [facility] propranoloL 20 mg tablet 0 10-29 00:00: 00 Yes [facility] propranoloL 20 mg tablet 0 10-29 00:00: 00 Yes [facility] propranoloL 20 mg tablet 0 10-29 00:00: 00 Yes [facility] HYDROcodone -acetaminop hen 7.5-325 mg per tablet 10-26 11:14: 44 Yes 1{tbl} Take 1 tablet by mouth every 6 (six) hours as needed. [facility] -acetaminop hen 7.5-325 mg per tablet 10-26 11:14: 44 Yes 1{tbl} Take 1 tablet by mouth every 6 (six) hours as needed. [facility] -acetaminop hen 7.5-325 mg per tablet 10-26 11:14: 44 Yes 1{tbl} Take 1 tablet by mouth every 6 (six) hours as needed. [facility] HYDROcodone -acetaminop hen 7.5-325 mg per tablet 10-26 11:14: 44 Yes 1{tbl} Take 1 tablet by mouth every 6 (six) hours as needed. [facility] -acetaminop hen 7.5-325 mg per tablet 10-26 11:14: 44 Yes 1{tbl} Take 1 tablet by mouth every 6 (six) hours as needed. [facility]one -acetaminop hen 7.5-325 mg per tablet 10-26 11:14: 44 Yes 1{tbl} Take 1 tablet by mouth every 6 (six) hours as needed. [facility] HYDRO[facility]one -acetaminop hen 7.5-325 mg per tablet 10-26 11:14: 44 Yes 1{tbl} Take 1 tablet by mouth every 6 (six) hours as needed. [facility] HYDROcodone -acetaminop hen 7.5-325 mg per tablet 10-26 11:14: 44 Yes 1{tbl} Take 1 tablet by mouth every 6 (six) hours as needed. [facility] HYDROcodone -acetaminop hen 7.5-325 mg per tablet 10-26 11:14: 44 Yes 1{tbl} Take 1 tablet by mouth every 6 (six) hours as needed. [facility] HYDROcodone -acetaminop hen 7.5-325 mg per tablet 10-26 11:14: 44 Yes 1{tbl} Take 1 tablet by mouth every 6 (six) hours as needed. [facility] HYDROcodone -acetaminop hen 7.5-325 mg per tablet 10-26 11:14: 44 Yes 1{tbl} Take 1 tablet by mouth every 6 (six) hours as needed. [facility] HYDROcodone -acetaminop hen 7.5-325 mg per tablet 10-26 11:14: 44 Yes 1{tbl} Take 1 tablet by mouth every 6 (six) hours as needed. [facility] HYDROcodone -acetaminop hen 7.5-325 mg per tablet 10-26 11:14: 44 Yes 1{tbl} Take 1 tablet by mouth every 6 (six) hours as needed. [facility] HYDROcodone -acetaminop hen 7.5-325 mg per tablet 10-26 11:14: 44 Yes 1{tbl} Take 1 tablet by mouth every 6 (six) hours as needed. [facility] HYDROcodone -acetaminop hen 7.5-325 mg per tablet 10-26 11:14: 44 Yes 1{tbl} Take 1 tablet by mouth every 6 (six) hours as needed. [facility] HYDROcodone -acetaminop hen 7.5-325 mg per tablet 10-26 11:14: 44 Yes 1{tbl} Take 1 tablet by mouth every 6 (six) hours as needed. [facility] HYDROcodone -acetaminop hen 7.5-325 mg per tablet 10-26 11:14: 44 Yes 1{tbl} Take 1 tablet by mouth every 6 (six) hours as needed. [facility] HYDROcodone -acetaminop hen 7.5-325 mg per tablet 10-26 11:14: 44 Yes 1{tbl} Take 1 tablet by mouth every 6 (six) hours as needed. [facility] HYDROcodone -acetaminop hen 7.5-325 mg per tablet 10-26 11:14: 44 Yes 1{tbl} Take 1 tablet by mouth every 6 (six) hours as needed. [facility] HYDROcodone -acetaminop hen 7.5-325 mg per tablet 10-26 11:14: 44 Yes 1{tbl} Take 1 tablet by mouth every 6 (six) hours as needed. [facility] HYDROcodone -acetaminop hen 7.5-325 mg per tablet 10-26 11:14: 44 Yes 1{tbl} Take 1 tablet by mouth every 6 (six) hours as needed. [facility] HYDROcodone -acetaminop hen 7.5-325 mg per tablet 10-26 11:14: 44 Yes 1{tbl} Take 1 tablet by mouth every 6 (six) hours as needed. [facility] HYDROcodone -acetaminop hen 7.5-325 mg per tablet 10-26 11:14: 44 Yes 1{tbl} Take 1 tablet by mouth every 6 (six) hours as needed. [facility] HYDROcodone -acetaminop hen 7.5-325 mg per tablet 10-26 11:14: 44 Yes 1{tbl} Take 1 tablet by mouth every 6 (six) hours as needed. [facility] HYDROcodone -acetaminop hen 7.5-325 mg per tablet 10-26 11:14: 44 Yes 1{tbl} Take 1 tablet by mouth every 6 (six) hours as needed. [facility] HYDROcodone -acetaminop hen 7.5-325 mg per tablet 10-26 11:14: 44 Yes 1{tbl} Take 1 tablet by mouth every 6 (six) hours as needed. [facility] -acetaminop hen 7.5-325 mg per tablet 10-26 11:14: 44 Yes 1{tbl} Take 1 tablet by mouth every 6 (six) hours as needed. [facility] HYDRO[facility]one -acetaminop hen 7.5-325 mg per tablet 10-26 11:14: 44 Yes 1{tbl} Take 1 tablet by mouth every 6 (six) hours as needed. [facility] HYDROcodone -acetaminop hen 7.5-325 mg per tablet 10-26 11:14: 44 Yes 1{tbl} Take 1 tablet by mouth every 6 (six) hours as needed. [facility] HYDROcodone -acetaminop hen 7.5-325 mg per tablet 10-26 11:14: 44 Yes 1{tbl} Take 1 tablet by mouth every 6 (six) hours as needed. [facility] HYDROcodone -acetaminop hen 7.5-325 mg per tablet 10-26 11:14: 44 Yes 1{tbl} Take 1 tablet by mouth every 6 (six) hours as needed. [facility] HYDROcodone -acetaminop hen 7.5-325 mg per tablet 10-26 11:14: 44 Yes 1{tbl} Take 1 tablet by mouth every 6 (six) hours as needed. [facility] HYDROcodone -acetaminop hen 7.5-325 mg per tablet 10-26 11:14: 44 Yes 1{tbl} Take 1 tablet by mouth every 6 (six) hours as needed. [facility] HYDROcodone -acetaminop hen 7.5-325 mg per tablet 10-26 11:14: 44 Yes 1{tbl} Take 1 tablet by mouth every 6 (six) hours as needed. [facility] HYDROcodone -acetaminop hen 7.5-325 mg per tablet 10-26 11:14: 44 Yes 1{tbl} Take 1 tablet by mouth every 6 (six) hours as needed. [facility] HYDROcodone -acetaminop hen 7.5-325 mg per tablet 10-26 11:14: 44 Yes 1{tbl} Take 1 tablet by mouth every 6 (six) hours as needed. [facility] HYDROcodone -acetaminop hen 7.5-325 mg per tablet 10-26 11:14: 44 Yes 1{tbl} Take 1 tablet by mouth every 6 (six) hours as needed. [facility] HYDROcodone -acetaminop hen 7.5-325 mg per tablet 10-26 11:14: 44 Yes 1{tbl} Take 1 tablet by mouth every 6 (six) hours as needed. [facility] HYDROcodone -acetaminop hen 7.5-325 mg per tablet 10-26 11:14: 44 Yes 1{tbl} Take 1 tablet by mouth every 6 (six) hours as needed. [facility] HYDROcodone -acetaminop hen 7.5-325 mg per tablet 10-26 11:14: 44 Yes 1{tbl} Take 1 tablet by mouth every 6 (six) hours as needed. [facility] HYDROcodone -acetaminop hen 7.5-325 mg per tablet 10-26 11:14: 44 Yes 1{tbl} Take 1 tablet by mouth every 6 (six) hours as needed. [facility] HYDROcodone -acetaminop hen 7.5-325 mg per tablet 10-26 11:14: 44 Yes 1{tbl} Take 1 tablet by mouth every 6 (six) hours as needed. [facility] HYDROcodone -acetaminop hen 7.5-325 mg per tablet 10-26 11:14: 44 Yes 1{tbl} Take 1 tablet by mouth every 6 (six) hours as needed. [facility] HYDROcodone -acetaminop hen 7.5-325 mg per tablet 10-26 11:14: 44 Yes 1{tbl} Take 1 tablet by mouth every 6 (six) hours as needed. [facility] HYDROcodone -acetaminop hen 7.5-325 mg per tablet 10-26 11:14: 44 Yes 1{tbl} Take 1 tablet by mouth every 6 (six) hours as needed. [facility] HYDROcodone -acetaminop hen 7.5-325 mg per tablet 10-26 11:14: 44 Yes 1{tbl} Take 1 tablet by mouth every 6 (six) hours as needed. [facility] -acetaminop hen 7.5-325 mg per tablet 10-26 11:14: 44 Yes 1{tbl} Take 1 tablet by mouth every 6 (six) hours as needed. [facility] HYDRO[facility]one -acetaminop hen 7.5-325 mg per tablet 10-26 11:14: 44 Yes 1{tbl} Take 1 tablet by mouth every 6 (six) hours as needed. [facility] HYDROcodone -acetaminop hen 7.5-325 mg per tablet 10-26 11:14: 44 Yes 1{tbl} Take 1 tablet by mouth every 6 (six) hours as needed. [facility] HYDROcodone -acetaminop hen 7.5-325 mg per tablet 10-26 11:14: 44 Yes 1{tbl} Take 1 tablet by mouth every 6 (six) hours as needed. [facility] oxyCODONE-a cetaminophe n 7.5-325 mg per tablet 0 10-25 00:00: 00 Yes [facility] oxyCODONE-a cetaminophe n 7.5-325 mg per tablet 0 10-25 00:00: 00 Yes [facility] oxyCODONE-a cetaminophe n 7.5-325 mg per tablet 0 10-25 00:00: 00 Yes [facility] oxyCODONE-a cetaminophe n 7.5-325 mg per tablet 0 10-25 00:00: 00 Yes [facility] oxyCODONE-a cetaminophe n 7.5-325 mg per tablet 0 18 00:00: 00 Yes [facility] oxyCODONE-a cetaminophe n 7.5-325 mg per tablet 0 18 00:00: 00 Yes [facility] oxyCODONE-a cetaminophe n 7.5-325 mg per tablet 0 18 00:00: 00 Yes [facility] oxyCODONE-a cetaminophe n 7.5-325 mg per tablet 0 18 00:00: 00 Yes [facility] oxyCODONE-a cetaminophe n 7.5-325 mg per tablet 0 18 00:00: 00 Yes [facility] oxyCODONE-a cetaminophe n 7.5-325 mg per tablet 0 10-25 00:00: 00 Yes [facility] oxyCODONE-a cetaminophe n 7.5-325 mg per tablet 0 18 00:00: 00 Yes [facility] oxyCODONE-a cetaminophe n 7.5-325 mg per tablet 0 18 00:00: 00 Yes [facility] oxyCODONE-a cetaminophe n 7.5-325 mg per tablet 0 18 00:00: 00 Yes [facility] oxyCODONE-a cetaminophe n 7.5-325 mg per tablet 0 18 00:00: 00 Yes [facility] oxyCODONE-a cetaminophe n 7.5-325 mg per tablet 0 18 00:00: 00 Yes [facility] oxyCODONE-a cetaminophe n 7.5-325 mg per tablet 0 18 00:00: 00 Yes [facility] oxyCODONE-a cetaminophe n 7.5-325 mg per tablet 0 18 00:00: 00 Yes [facility] oxyCODONE-a cetaminophe n 7.5-325 mg per tablet 0 18 00:00: 00 Yes [facility] oxyCODONE-a cetaminophe n 7.5-325 mg per tablet 0 18 00:00: 00 Yes [facility] oxyCODONE-a cetaminophe n 7.5-325 mg per tablet 0 18 00:00: 00 Yes [facility] oxyCODONE-a cetaminophe n 7.5-325 mg per tablet 0 18 00:00: 00 Yes [facility] oxyCODONE-a cetaminophe n 7.5-325 mg per tablet 0 10-25 00:00: 00 Yes [facility] oxyCODONE-a cetaminophe n 7.5-325 mg per tablet 0 10-25 00:00: 00 Yes [facility] oxyCODONE-a cetaminophe n 7.5-325 mg per tablet 0 18 00:00: 00 Yes [facility] oxyCODONE-a cetaminophe n 7.5-325 mg per tablet 0 18 00:00: 00 Yes [facility] oxyCODONE-a cetaminophe n 7.5-325 mg per tablet 0 18 00:00: 00 Yes [facility] oxyCODONE-a cetaminophe n 7.5-325 mg per tablet 0 18 00:00: 00 Yes [facility] oxyCODONE-a cetaminophe n 7.5-325 mg per tablet 0 18 00:00: 00 Yes [facility] oxyCODONE-a cetaminophe n 7.5-325 mg per tablet 0 18 00:00: 00 Yes [facility] oxyCODONE-a cetaminophe n 7.5-325 mg per tablet 0 18 00:00: 00 Yes [facility] oxyCODONE-a cetaminophe n 7.5-325 mg per tablet 0 18 00:00: 00 Yes [facility] oxyCODONE-a cetaminophe n 7.5-325 mg per tablet 0 18 00:00: 00 Yes [facility] oxyCODONE-a cetaminophe n 7.5-325 mg per tablet 0 18 00:00: 00 Yes [facility] oxyCODONE-a cetaminophe n 7.5-325 mg per tablet 0 18 00:00: 00 Yes [facility] oxyCODONE-a cetaminophe n 7.5-325 mg per tablet 0 18 00:00: 00 Yes [facility] oxyCODONE-a cetaminophe n 7.5-325 mg per tablet 0 18 00:00: 00 Yes [facility] oxyCODONE-a cetaminophe n 7.5-325 mg per tablet 0 10-25 00:00: 00 Yes [facility] oxyCODONE-a cetaminophe n 7.5-325 mg per tablet 0 18 00:00: 00 Yes [facility] oxyCODONE-a cetaminophe n 7.5-325 mg per tablet 0 18 00:00: 00 Yes [facility] oxyCODONE-a cetaminophe n 7.5-325 mg per tablet 0 18 00:00: 00 Yes [facility] oxyCODONE-a cetaminophe n 7.5-325 mg per tablet 0 18 00:00: 00 Yes [facility] oxyCODONE-a cetaminophe n 7.5-325 mg per tablet 0 18 00:00: 00 Yes [facility] oxyCODONE-a cetaminophe n 7.5-325 mg per tablet 0 18 00:00: 00 Yes [facility] oxyCODONE-a cetaminophe n 7.5-325 mg per tablet 3-0 10-25 00:00: 00 Yes [facility] hydrALAZINE 25 mg tablet 3-0 10-16 00:00: 00 Yes [facility] hydrALAZINE 25 mg tablet 2022-0 10-16 00:00: 00 Yes [facility] hydrALAZINE 25 mg tablet 3-0 10-16 00:00: 00 Yes [facility] hydrALAZINE 25 mg tablet 3-0 10-16 00:00: 00 Yes [facility] hydrALAZINE 25 mg tablet 2022-0 10-16 00:00: 00 Yes [facility] hydrALAZINE 25 mg tablet 2022-0 10-16 00:00: 00 Yes [facility] hydrALAZINE 25 mg tablet 3-0 10-16 00:00: 00 Yes [facility] hydrALAZINE 25 mg tablet 2022-0 10-16 00:00: 00 Yes [facility] hydrALAZINE 25 mg tablet 3-0 10-16 00:00: 00 Yes [facility] hydrALAZINE 25 mg tablet 3-0 10-16 00:00: 00 Yes [facility] hydrALAZINE 25 mg tablet 2022-0 10-16 00:00: 00 Yes [facility] hydrALAZINE 25 mg tablet 3-0 10-16 00:00: 00 Yes [facility] hydrALAZINE 25 mg tablet 3-0 10-16 00:00: 00 Yes [facility] hydrALAZINE 25 mg tablet 3-0 10-16 00:00: 00 Yes [facility] hydrALAZINE 25 mg tablet 3-0 10-16 00:00: 00 Yes [facility] hydrALAZINE 25 mg tablet 3-0 10-16 00:00: 00 Yes [facility] hydrALAZINE 25 mg tablet 3-0 10-16 00:00: 00 Yes [facility] hydrALAZINE 25 mg tablet 3-0 10-16 00:00: 00 Yes [facility] hydrALAZINE 25 mg tablet 3-0 10-16 00:00: 00 Yes [facility] hydrALAZINE 25 mg tablet 3-0 10-16 00:00: 00 Yes [facility] hydrALAZINE 25 mg tablet 3-0 10-16 00:00: 00 Yes [facility] hydrALAZINE 25 mg tablet 2022-0 10-16 00:00: 00 Yes [facility] hydrALAZINE 25 mg tablet 3-0 10-16 00:00: 00 Yes [facility] hydrALAZINE 25 mg tablet 3-0 10-16 00:00: 00 Yes [facility] hydrALAZINE 25 mg tablet 3-0 10-16 00:00: 00 Yes [facility] hydrALAZINE 25 mg tablet 3-0 10-16 00:00: 00 Yes [facility] hydrALAZINE 25 mg tablet 3-0 10-16 00:00: 00 Yes [facility] hydrALAZINE 25 mg tablet 3-0 10-16 00:00: 00 Yes [facility] hydrALAZINE 25 mg tablet 3-0 10-16 00:00: 00 Yes [facility] hydrALAZINE 25 mg tablet 3-0 10-16 00:00: 00 Yes [facility] hydrALAZINE 25 mg tablet 3-0 10-16 00:00: 00 Yes [facility] hydrALAZINE 25 mg tablet 3-0 10-16 00:00: 00 Yes [facility] hydrALAZINE 25 mg tablet 3-0 10-16 00:00: 00 Yes [facility] hydrALAZINE 25 mg tablet 3-0 10-16 00:00: 00 Yes [facility] hydrALAZINE 25 mg tablet 3-0 10-16 00:00: 00 Yes [facility] hydrALAZINE 25 mg tablet 2022-0 10-16 00:00: 00 Yes [facility] hydrALAZINE 25 mg tablet 3-0 - 00:00: 00 Yes [facility] hydrALAZINE 25 mg tablet 2022-0 10-16 00:00: 00 Yes [facility] hydrALAZINE 25 mg tablet 2022-0 - 00:00: 00 Yes [facility] hydrALAZINE 25 mg tablet 2022-0 - 00:00: 00 Yes [facility] hydrALAZINE 25 mg tablet 3-0 10-16 00:00: 00 Yes [facility] hydrALAZINE 25 mg tablet 2022-0 10-16 00:00: 00 Yes [facility] hydrALAZINE 25 mg tablet 2022-0 10-16 00:00: 00 Yes [facility] hydrALAZINE 25 mg tablet 3-0 10-16 00:00: 00 Yes [facility] clobetasoL 0.05 % cream 3-0 8-10 00:00: 00 Yes [id number] Apply twice daily to feet where the redness. [facility] clobetasoL 0.05 % cream 3-0 8-10 00:00: 00 Yes [id number] Apply twice daily to feet where the redness. [facility] clobetasoL 0.05 % cream 3-0 8-10 00:00: 00 Yes [id number] Apply twice daily to feet where the redness. [facility] clobetasoL 0.05 % cream 3-0 8-10 00:00: 00 Yes [id number] Apply twice daily to feet where the redness. [facility] clobetasoL 0.05 % cream 3-0 8-10 00:00: 00 Yes [id number] Apply twice daily to feet where the redness. [facility] clobetasoL 0.05 % cream 2023-0 8-10 00:00: 00 Yes [id number] Apply twice daily to feet where the redness. [facility] clobetasoL 0.05 % cream 2023-0 8-10 00:00: 00 Yes [id number] Apply twice daily to feet where the redness. [facility] clobetasoL 0.05 % cream 3-0 8-10 00:00: 00 Yes [id number] Apply twice daily to feet where the redness. [facility] clobetasoL 0.05 % cream 3-0 8-10 00:00: 00 Yes [id number] Apply twice daily to feet where the redness. [facility] clobetasoL 0.05 % cream 3-0 8-10 00:00: 00 Yes [id number] Apply twice daily to feet where the redness. [facility] clobetasoL 0.05 % cream 3-0 8-10 00:00: 00 Yes [id number] Apply twice daily to feet where the redness. [facility] clobetasoL 0.05 % cream 3-0 8-10 00:00: 00 Yes [id number] Apply twice daily to feet where the redness. [facility] clobetasoL 0.05 % cream 3-0 8-10 00:00: 00 Yes [id number] Apply twice daily to feet where the redness. [facility] clobetasoL 0.05 % cream 3-0 8-10 00:00: 00 Yes [id number] Apply twice daily to feet where the redness. [facility] clobetasoL 0.05 % cream 3-0 8-10 00:00: 00 Yes [id number] Apply twice daily to feet where the redness. [facility] clobetasoL 0.05 % cream 3-0 8-10 00:00: 00 Yes [id number] Apply twice daily to feet where the redness. [facility] clobetasoL 0.05 % cream 2023-0 8-10 00:00: 00 Yes [id number] Apply twice daily to feet where the redness. [facility] clobetasoL 0.05 % cream 2023-0 8-10 00:00: 00 Yes [id number] Apply twice daily to feet where the redness. [facility] clobetasoL 0.05 % cream 3-0 8-10 00:00: 00 Yes [id number] Apply twice daily to feet where the redness. [facility] clobetasoL 0.05 % cream 2022-0 8-10 00:00: 00 Yes [id number] Apply twice daily to feet where the redness. [facility] clobetasoL 0.05 % cream 2022-0 8-10 00:00: 00 Yes [id number] Apply twice daily to feet where the redness. [facility] clobetasoL 0.05 % cream 3-0 8-10 00:00: 00 Yes [id number] Apply twice daily to feet where the redness. [facility] clobetasoL 0.05 % cream 3-0 8-10 00:00: 00 Yes [id number] Apply twice daily to feet where the redness. [facility] clobetasoL 0.05 % cream 3-0 8-10 00:00: 00 Yes [id number] Apply twice daily to feet where the redness. [facility] clobetasoL 0.05 % cream 3-0 8-10 00:00: 00 Yes [id number] Apply twice daily to feet where the redness. [facility] clobetasoL 0.05 % cream 2022-0 8-10 00:00: 00 Yes [id number] Apply twice daily to feet where the redness. [facility] clobetasoL 0.05 % cream 3-0 8-10 00:00: 00 Yes [id number] Apply twice daily to feet where the redness. [facility] clobetasoL 0.05 % cream 3-0 8-10 00:00: 00 Yes [id number] Apply twice daily to feet where the redness. [facility] clobetasoL 0.05 % cream 3-0 8-10 00:00: 00 Yes [id number] Apply twice daily to feet where the redness. [facility] clobetasoL 0.05 % cream 3-0 8-10 00:00: 00 2023- 10-30 00:00 :00 No [id number] Apply twice daily to feet where the redness. [facility] clobetasoL 0.05 % cream 0 8-10 00:00: 00 12-06 00:00 :00 No [id number] Apply twice daily to feet where the redness. [facility] clobetasoL 0.05 % cream 0 8-10 00:00: 00 12-06 00:00 :00 No [id number] Apply twice daily to feet where the redness. [facility] pyridoxine, VITAMIN B-6, 25 mg tablet 2022-0 7-18 11:58: 31 Yes 25mg Take 1 tablet by mouth in the morning. [facility] cephALEXin 500 mg capsule 2022-0 7-18 11:58: 31 Yes 500mg Take 1 capsule by mouth 4 (four) times daily. [facility] pyridoxine, VITAMIN B-6, 25 mg tablet 2022-0 7-18 11:58: 31 Yes 25mg Take 1 tablet by mouth in the morning. [facility] cephALEXin 500 mg capsule 2022-0 7-18 11:58: 31 Yes 500mg Take 1 capsule by mouth 4 (four) times daily. [facility] pyridoxine, VITAMIN B-6, 25 mg tablet 3-0 7-18 11:58: 31 Yes 25mg Take 1 tablet by mouth in the morning. [facility] cephALEXin 500 mg capsule 2022-0 7-18 11:58: 31 Yes 500mg Take 1 capsule by mouth 4 (four) times daily. [facility] pyridoxine, VITAMIN B-6, 25 mg tablet 3-0 7-18 11:58: 31 Yes 25mg Take 1 tablet by mouth in the morning. [facility] cephALEXin 500 mg capsule 3-0 7-18 11:58: 31 Yes 500mg Take 1 capsule by mouth 4 (four) times daily. [facility] pyridoxine, VITAMIN B-6, 25 mg tablet 3-0 7-18 11:58: 31 Yes 25mg Take 1 tablet by mouth in the morning. [facility] cephALEXin 500 mg capsule 2023-0 7-18 11:58: 31 Yes 500mg Take 1 capsule by mouth 4 (four) times daily. [facility] pyridoxine, VITAMIN B-6, 25 mg tablet 2023-0 7-18 11:58: 31 Yes 25mg Take 1 tablet by mouth in the morning. [facility] cephALEXin 500 mg capsule 2023-0 7-18 11:58: 31 Yes 500mg Take 1 capsule by mouth 4 (four) times daily. [facility] pyridoxine, VITAMIN B-6, 25 mg tablet 2023-0 7-18 11:58: 31 Yes 25mg Take 1 tablet by mouth in the morning. [facility] cephALEXin 500 mg capsule 2023-0 7-18 11:58: 31 Yes 500mg Take 1 capsule by mouth 4 (four) times daily. [facility] pyridoxine, VITAMIN B-6, 25 mg tablet 2023-0 7-18 11:58: 31 Yes 25mg Take 1 tablet by mouth in the morning. [facility] cephALEXin 500 mg capsule 2023-0 7-18 11:58: 31 Yes 500mg Take 1 capsule by mouth 4 (four) times daily. [facility] pyridoxine, VITAMIN B-6, 25 mg tablet 2023-0 7-18 11:58: 31 Yes 25mg Take 1 tablet by mouth in the morning. [facility] cephALEXin 500 mg capsule 2023-0 7-18 11:58: 31 Yes 500mg Take 1 capsule by mouth 4 (four) times daily. [facility] pyridoxine, VITAMIN B-6, 25 mg tablet 2023-0 7-18 11:58: 31 Yes 25mg Take 1 tablet by mouth in the morning. [facility] cephALEXin 500 mg capsule 2023-0 7-18 11:58: 31 Yes 500mg Take 1 capsule by mouth 4 (four) times daily. [facility] pyridoxine, VITAMIN B-6, 25 mg tablet 2023-0 7-18 11:58: 31 Yes 25mg Take 1 tablet by mouth in the morning. [facility] cephALEXin 500 mg capsule 2023-0 7-18 11:58: 31 Yes 500mg Take 1 capsule by mouth 4 (four) times daily. [facility] pyridoxine, VITAMIN B-6, 25 mg tablet 2023-0 7-18 11:58: 31 Yes 25mg Take 1 tablet by mouth in the morning. [facility] cephALEXin 500 mg capsule 2023-0 7-18 11:58: 31 Yes 500mg Take 1 capsule by mouth 4 (four) times daily. [facility] pyridoxine, VITAMIN B-6, 25 mg tablet 2023-0 7-18 11:58: 31 Yes 25mg Take 1 tablet by mouth in the morning. [facility] cephALEXin 500 mg capsule 3-0 7-18 11:58: 31 Yes 500mg Take 1 capsule by mouth 4 (four) times daily. [facility] pyridoxine, VITAMIN B-6, 25 mg tablet 3-0 7-18 11:58: 31 Yes 25mg Take 1 tablet by mouth in the morning. [facility] cephALEXin 500 mg capsule 3-0 7-18 11:58: 31 Yes 500mg Take 1 capsule by mouth 4 (four) times daily. [facility] pyridoxine, VITAMIN B-6, 25 mg tablet 3-0 7-18 11:58: 31 Yes 25mg Take 1 tablet by mouth in the morning. [facility] cephALEXin 500 mg capsule 3-0 7-18 11:58: 31 Yes 500mg Take 1 capsule by mouth 4 (four) times daily. [facility] pyridoxine, VITAMIN B-6, 25 mg tablet 2023-0 7-18 11:58: 31 Yes 25mg Take 1 tablet by mouth in the morning. [facility] cephALEXin 500 mg capsule 2023-0 7-18 11:58: 31 Yes 500mg Take 1 capsule by mouth 4 (four) times daily. [facility] pyridoxine, VITAMIN B-6, 25 mg tablet 2023-0 7-18 11:58: 31 Yes 25mg Take 1 tablet by mouth in the morning. [facility] cephALEXin 500 mg capsule 2023-0 7-18 11:58: 31 Yes 500mg Take 1 capsule by mouth 4 (four) times daily. [facility] pyridoxine, VITAMIN B-6, 25 mg tablet 2023-0 7-18 11:58: 31 Yes 25mg Take 1 tablet by mouth in the morning. [facility] cephALEXin 500 mg capsule 2023-0 7-18 11:58: 31 Yes 500mg Take 1 capsule by mouth 4 (four) times daily. [facility] pyridoxine, VITAMIN B-6, 25 mg tablet 2023-0 7-18 11:58: 31 Yes 25mg Take 1 tablet by mouth in the morning. [facility] cephALEXin 500 mg capsule 2023-0 7-18 11:58: 31 Yes 500mg Take 1 capsule by mouth 4 (four) times daily. [facility] pyridoxine, VITAMIN B-6, 25 mg tablet 2023-0 7-18 11:58: 31 Yes 25mg Take 1 tablet by mouth in the morning. [facility] cephALEXin 500 mg capsule 2023-0 7-18 11:58: 31 Yes 500mg Take 1 capsule by mouth 4 (four) times daily. [facility] pyridoxine, VITAMIN B-6, 25 mg tablet 2023-0 7-18 11:58: 31 Yes 25mg Take 1 tablet by mouth in the morning. [facility] cephALEXin 500 mg capsule 2023-0 7-18 11:58: 31 Yes 500mg Take 1 capsule by mouth 4 (four) times daily. [facility] pyridoxine, VITAMIN B-6, 25 mg tablet 2023-0 7-18 11:58: 31 Yes 25mg Take 1 tablet by mouth in the morning. [facility] cephALEXin 500 mg capsule 2023-0 7-18 11:58: 31 Yes 500mg Take 1 capsule by mouth 4 (four) times daily. [facility] pyridoxine, VITAMIN B-6, 25 mg tablet 2023-0 7-18 11:58: 31 Yes 25mg Take 1 tablet by mouth in the morning. [facility] cephALEXin 500 mg capsule 2023-0 7-18 11:58: 31 Yes 500mg Take 1 capsule by mouth 4 (four) times daily. [facility] pyridoxine, VITAMIN B-6, 25 mg tablet 3-0 7-18 11:58: 31 Yes 25mg Take 1 tablet by mouth in the morning. [facility] cephALEXin 500 mg capsule 3-0 7-18 11:58: 31 Yes 500mg Take 1 capsule by mouth 4 (four) times daily. [facility] pyridoxine, VITAMIN B-6, 25 mg tablet 3-0 7-18 11:58: 31 Yes 25mg Take 1 tablet by mouth in the morning. [facility] cephALEXin 500 mg capsule 3-0 7-18 11:58: 31 Yes 500mg Take 1 capsule by mouth 4 (four) times daily. [facility] pyridoxine, VITAMIN B-6, 25 mg tablet 3-0 7-18 11:58: 31 Yes 25mg Take 1 tablet by mouth in the morning. [facility] cephALEXin 500 mg capsule 3-0 7-18 11:58: 31 Yes 500mg Take 1 capsule by mouth 4 (four) times daily. [facility] pyridoxine, VITAMIN B-6, 25 mg tablet 3-0 7-18 11:58: 31 Yes 25mg Take 1 tablet by mouth in the morning. [facility] cephALEXin 500 mg capsule 3-0 7-18 11:58: 31 Yes 500mg Take 1 capsule by mouth 4 (four) times daily. [facility] pyridoxine, VITAMIN B-6, 25 mg tablet 3-0 7-18 11:58: 31 Yes 25mg Take 1 tablet by mouth in the morning. [facility] cephALEXin 500 mg capsule 3-0 7-18 11:58: 31 Yes 500mg Take 1 capsule by mouth 4 (four) times daily. [facility] pyridoxine, VITAMIN B-6, 25 mg tablet 3-0 7-18 11:58: 31 Yes 25mg Take 1 tablet by mouth in the morning. [facility] cephALEXin 500 mg capsule 3-0 7-18 11:58: 31 Yes 500mg Take 1 capsule by mouth 4 (four) times daily. [facility] pyridoxine, VITAMIN B-6, 25 mg tablet 3-0 7-18 11:58: 31 Yes 25mg Take 1 tablet by mouth in the morning. [facility] pyridoxine, VITAMIN B-6, 25 mg tablet 3-0 7-18 11:58: 31 Yes 25mg Take 1 tablet by mouth in the morning. [facility] pyridoxine, VITAMIN B-6, 25 mg tablet 3-0 7-18 11:58: 31 Yes 25mg Take 1 tablet by mouth in the morning. [facility] pyridoxine, VITAMIN B-6, 25 mg tablet 2022-0 7-18 11:58: 31 Yes 25mg Take 1 tablet by mouth in the morning. [facility] pyridoxine, VITAMIN B-6, 25 mg tablet 3-0 7-18 11:58: 31 Yes 25mg Take 1 tablet by mouth in the morning. [facility] pyridoxine, VITAMIN B-6, 25 mg tablet 2022-0 7-18 11:58: 31 Yes 25mg Take 1 tablet by mouth in the morning. [facility] pyridoxine, VITAMIN B-6, 25 mg tablet 2022-0 718 11:58: 31 Yes 25mg Take 1 tablet by mouth in the morning. [facility] pyridoxine, VITAMIN B-6, 25 mg tablet 2022-0 7-18 11:58: 31 Yes 25mg Take 1 tablet by mouth in the morning. [facility] pyridoxine, VITAMIN B-6, 25 mg tablet 3-0 7-18 11:58: 31 Yes 25mg Take 1 tablet by mouth in the morning. [facility] pyridoxine, VITAMIN B-6, 25 mg tablet 3-0 7-18 11:58: 31 Yes 25mg Take 1 tablet by mouth in the morning. [facility] pyridoxine, VITAMIN B-6, 25 mg tablet 3-0 7-18 11:58: 31 Yes 25mg Take 1 tablet by mouth in the morning. [facility] pyridoxine, VITAMIN B-6, 25 mg tablet 2023-0 7-18 11:58: 31 Yes 25mg Take 1 tablet by mouth in the morning. [facility] pyridoxine, VITAMIN B-6, 25 mg tablet 3-0 7-18 11:58: 31 Yes 25mg Take 1 tablet by mouth in the morning. [facility] pyridoxine, VITAMIN B-6, 25 mg tablet 2023-0 7-18 11:58: 31 Yes 25mg Take 1 tablet by mouth in the morning. [facility] pyridoxine, VITAMIN B-6, 25 mg tablet 3-0 7-18 11:58: 31 Yes 25mg Take 1 tablet by mouth in the morning. [facility] pyridoxine, VITAMIN B-6, 25 mg tablet 2022-0 718 11:58: 31 Yes 25mg Take 1 tablet by mouth in the morning. [facility] pyridoxine, VITAMIN B-6, 25 mg tablet 2022-0 718 11:58: 31 Yes 25mg Take 1 tablet by mouth in the morning. [facility] pyridoxine, VITAMIN B-6, 25 mg tablet 2022-0 718 11:58: 31 Yes 25mg Take 1 tablet by mouth in the morning. [facility] pyridoxine, VITAMIN B-6, 25 mg tablet 2022-0 18 11:58: 31 Yes 25mg Take 1 tablet by mouth in the morning. [facility] pyridoxine, VITAMIN B-6, 25 mg tablet 2022-0 718 11:58: 31 Yes 25mg Take 1 tablet by mouth in the morning. [facility] pyridoxine, VITAMIN B-6, 25 mg tablet 3-0 718 11:58: 31 Yes 25mg Take 1 tablet by mouth in the morning. [facility] pyridoxine, VITAMIN B-6, 25 mg tablet 2022-0 718 11:58: 31 Yes 25mg Take 1 tablet by mouth in the morning. [facility] pyridoxine, VITAMIN B-6, 25 mg tablet 3-0 7-18 11:58: 31 Yes 25mg Take 1 tablet by mouth in the morning. [facility] pyridoxine, VITAMIN B-6, 25 mg tablet 3-0 7-18 11:58: 31 Yes 25mg Take 1 tablet by mouth in the morning. [facility] pyridoxine, VITAMIN B-6, 25 mg tablet 3-0 7-18 11:58: 31 Yes 25mg Take 1 tablet by mouth in the morning. [facility] pyridoxine, VITAMIN B-6, 25 mg tablet 2023-0 7-18 11:58: 31 Yes 25mg Take 1 tablet by mouth in the morning. [facility] pyridoxine, VITAMIN B-6, 25 mg tablet 3-0 7-18 11:58: 31 Yes 25mg Take 1 tablet by mouth in the morning. [facility] pyridoxine, VITAMIN B-6, 25 mg tablet 3-0 7-18 11:58: 31 Yes 25mg Take 1 tablet by mouth in the morning. [facility] pyridoxine, VITAMIN B-6, 25 mg tablet 3-0 7-18 11:58: 31 Yes 25mg Take 1 tablet by mouth in the morning. [facility] pyridoxine, VITAMIN B-6, 25 mg tablet 3-0 718 11:58: 31 Yes 25mg Take 1 tablet by mouth in the morning. [facility] pyridoxine, VITAMIN B-6, 25 mg tablet 3-0 718 11:58: 31 Yes 25mg Take 1 tablet by mouth in the morning. [facility] pyridoxine, VITAMIN B-6, 25 mg tablet 3-0 7-18 11:58: 31 Yes 25mg Take 1 tablet by mouth in the morning. [facility] pyridoxine, VITAMIN B-6, 25 mg tablet 3-0 7-18 11:58: 31 Yes 25mg Take 1 tablet by mouth in the morning. [facility] pyridoxine, VITAMIN B-6, 25 mg tablet 2023-0 7-18 11:58: 31 Yes 25mg Take 1 tablet by mouth in the morning. [facility] pyridoxine, VITAMIN B-6, 25 mg tablet 2023-0 7-18 11:58: 31 Yes 25mg Take 1 tablet by mouth in the morning. [facility] pyridoxine, VITAMIN B-6, 25 mg tablet 2022-0 7-18 11:58: 31 Yes 25mg Take 1 tablet by mouth in the morning. [facility] pyridoxine, VITAMIN B-6, 25 mg tablet 3-0 7-18 11:58: 31 Yes 25mg Take 1 tablet by mouth in the morning. [facility] pyridoxine, VITAMIN B-6, 25 mg tablet 2022-0 7-18 11:58: 31 Yes 25mg Take 1 tablet by mouth in the morning. [facility] pyridoxine, VITAMIN B-6, 25 mg tablet 2022-0 718 11:58: 31 Yes 25mg Take 1 tablet by mouth in the morning. [facility] pyridoxine, VITAMIN B-6, 25 mg tablet 2022-0 7-18 11:58: 31 Yes 25mg Take 1 tablet by mouth in the morning. [facility] pyridoxine, VITAMIN B-6, 25 mg tablet 2022-0 718 11:58: 31 Yes 25mg Take 1 tablet by mouth in the morning. [facility] pyridoxine, VITAMIN B-6, 25 mg tablet 2022-0 18 11:58: 31 Yes 25mg Take 1 tablet by mouth in the morning. [facility] pyridoxine, VITAMIN B-6, 25 mg tablet 2022-0 18 11:58: 31 Yes 25mg Take 1 tablet by mouth in the morning. [facility] terbinafine HCL 1 % cream 2022-0 18 00:00: 00 Yes [id number] Apply to area(s) 2 (two) times daily. [facility] terbinafine HCL 1 % cream 3-0 -18 00:00: 00 Yes [id number] Apply to area(s) 2 (two) times daily. [facility] terbinafine HCL 1 % cream 3-0 -18 00:00: 00 Yes [id number] Apply to area(s) 2 (two) times daily. [facility] terbinafine HCL 1 % cream 2023-0 7-18 00:00: 00 Yes [id number] Apply to area(s) 2 (two) times daily. [facility] terbinafine HCL 1 % cream 2023-0 7-18 00:00: 00 Yes [id number] Apply to area(s) 2 (two) times daily. [facility] terbinafine HCL 1 % cream 2023-0 7-18 00:00: 00 Yes [id number] Apply to area(s) 2 (two) times daily. [facility] terbinafine HCL 1 % cream 2023-0 7-18 00:00: 00 Yes [id number] Apply to area(s) 2 (two) times daily. [facility] terbinafine HCL 1 % cream 2023-0 7-18 00:00: 00 Yes [id number] Apply to area(s) 2 (two) times daily. [facility] terbinafine HCL 1 % cream 2023-0 7-18 00:00: 00 Yes [id number] Apply to area(s) 2 (two) times daily. [facility] terbinafine HCL 1 % cream 2023-0 7-18 00:00: 00 Yes [id number] Apply to area(s) 2 (two) times daily. [facility] terbinafine HCL 1 % cream 2023-0 7-18 00:00: 00 Yes [id number] Apply to area(s) 2 (two) times daily. [facility] terbinafine HCL 1 % cream 2023-0 7-18 00:00: 00 Yes [id number] Apply to area(s) 2 (two) times daily. [facility] terbinafine HCL 1 % cream 2023-0 7-18 00:00: 00 Yes [id number] Apply to area(s) 2 (two) times daily. [facility] terbinafine HCL 1 % cream 2023-0 7-18 00:00: 00 Yes [id number] Apply to area(s) 2 (two) times daily. [facility] terbinafine HCL 1 % cream 2023-0 7-18 00:00: 00 Yes [id number] Apply to area(s) 2 (two) times daily. [facility] terbinafine HCL 1 % cream 2023-0 7-18 00:00: 00 Yes [id number] Apply to area(s) 2 (two) times daily. [facility] terbinafine HCL 1 % cream 2023-0 7-18 00:00: 00 Yes [id number] Apply to area(s) 2 (two) times daily. [facility] terbinafine HCL 1 % cream 2023-0 7-18 00:00: 00 Yes [id number] Apply to area(s) 2 (two) times daily. [facility] terbinafine HCL 1 % cream 3-0 7-18 00:00: 00 Yes [id number] Apply to area(s) 2 (two) times daily. [facility] [facility] terbinafine HCL 1 % cream 2023-0 7-18 00:00: 00 Yes [id number] Apply to area(s) 2 (two) times daily. [facility] terbinafine HCL 1 % cream 3-0 7-18 00:00: 00 Yes [id number] Apply to area(s) 2 (two) times daily. [facility] terbinafine HCL 1 % cream 3-0 7-18 00:00: 00 Yes [id number] Apply to area(s) 2 (two) times daily. [facility] terbinafine HCL 1 % cream 2023-0 7-18 00:00: 00 Yes [id number] Apply to area(s) 2 (two) times daily. [facility] terbinafine HCL 1 % cream 2023-0 7-18 00:00: 00 Yes [id number] Apply to area(s) 2 (two) times daily. [facility] terbinafine HCL 1 % cream 2023-0 7-18 00:00: 00 Yes [id number] Apply to area(s) 2 (two) times daily. [facility] terbinafine HCL 1 % cream 2023-0 7-18 00:00: 00 Yes [id number] Apply to area(s) 2 (two) times daily. [facility] terbinafine HCL 1 % cream 2023-0 7-18 00:00: 00 Yes [id number] Apply to area(s) 2 (two) times daily. [facility] terbinafine HCL 1 % cream 2023-0 7-18 00:00: 00 Yes [id number] Apply to area(s) 2 (two) times daily. [facility] terbinafine HCL 1 % cream 2023-0 7-18 00:00: 00 Yes [id number] Apply to area(s) 2 (two) times daily. [facility] terbinafine HCL 1 % cream 2023-0 7-18 00:00: 00 Yes [id number] Apply to area(s) 2 (two) times daily. [facility] terbinafine HCL 1 % cream 2023-0 7-18 00:00: 00 Yes [id number] Apply to area(s) 2 (two) times daily. [facility] terbinafine HCL 1 % cream 2023-0 7-18 00:00: 00 Yes [id number] Apply to area(s) 2 (two) times daily. [facility] terbinafine HCL 1 % cream 2023-0 7-18 00:00: 00 Yes [id number] Apply to area(s) 2 (two) times daily. [facility] terbinafine HCL 1 % cream 2023-0 7-18 00:00: 00 Yes [id number] Apply to area(s) 2 (two) times daily. [facility] terbinafine HCL 1 % cream 2023-0 7-18 00:00: 00 Yes [id number] Apply to area(s) 2 (two) times daily. [facility] terbinafine HCL 1 % cream 2023-0 7-18 00:00: 00 Yes [id number] Apply to area(s) 2 (two) times daily. [facility] terbinafine HCL 1 % cream 2023-0 7-18 00:00: 00 Yes [id number] Apply to area(s) 2 (two) times daily. [facility] terbinafine HCL 1 % cream 2023-0 7-18 00:00: 00 Yes [id number] Apply to area(s) 2 (two) times daily. [facility] terbinafine HCL 1 % cream 2023-0 7-18 00:00: 00 Yes [id number] Apply to area(s) 2 (two) times daily. [facility] terbinafine HCL 1 % cream 2023-0 7-18 00:00: 00 Yes [id number] Apply to area(s) 2 (two) times daily. [facility] terbinafine HCL 1 % cream 2023-0 7-18 00:00: 00 Yes [id number] Apply to area(s) 2 (two) times daily. [facility] terbinafine HCL 1 % cream 2023-0 7-18 00:00: 00 Yes [id number] Apply to area(s) 2 (two) times daily. [facility] terbinafine HCL 1 % cream 2023-0 7-18 00:00: 00 Yes [id number] Apply to area(s) 2 (two) times daily. [facility] terbinafine HCL 1 % cream 2023-0 7-18 00:00: 00 Yes [id number] Apply to area(s) 2 (two) times daily. [facility] terbinafine HCL 1 % cream 2023-0 7-18 00:00: 00 Yes [id number] Apply to area(s) 2 (two) times daily. [facility] terbinafine HCL 1 % cream 2023-0 7-18 00:00: 00 Yes [id number] Apply to area(s) 2 (two) times daily. [facility] terbinafine HCL 1 % cream 2023-0 7-18 00:00: 00 Yes [id number] Apply to area(s) 2 (two) times daily. [facility] terbinafine HCL 1 % cream 2023-0 7-18 00:00: 00 Yes [id number] Apply to area(s) 2 (two) times daily. [facility] terbinafine HCL 1 % cream 2023-0 7-18 00:00: 00 Yes [id number] Apply to area(s) 2 (two) times daily. [facility] terbinafine HCL 1 % cream 2023-0 7-18 00:00: 00 Yes [id number] Apply to area(s) 2 (two) times daily. [facility] terbinafine HCL 1 % cream 2023-0 7-18 00:00: 00 Yes [id number] Apply to area(s) 2 (two) times daily. [facility] terbinafine HCL 1 % cream 2023-0 7-18 00:00: 00 Yes [id number] Apply to area(s) 2 (two) times daily. [facility] terbinafine HCL 1 % cream 2023-0 7-18 00:00: 00 Yes [id number] Apply to area(s) 2 (two) times daily. [facility] terbinafine HCL 1 % cream 2023-0 7-18 00:00: 00 Yes [id number] Apply to area(s) 2 (two) times daily. [facility] terbinafine HCL 1 % cream 2023-0 7-18 00:00: 00 Yes [id number] Apply to area(s) 2 (two) times daily. [facility] terbinafine HCL 1 % cream 2023-0 7-18 00:00: 00 Yes [id number] Apply to area(s) 2 (two) times daily. [facility] terbinafine HCL 1 % cream 2023-0 7-18 00:00: 00 Yes [id number] Apply to area(s) 2 (two) times daily. [facility] terbinafine HCL 1 % cream 2023-0 7-18 00:00: 00 Yes [id number] Apply to area(s) 2 (two) times daily. [facility] terbinafine HCL 1 % cream 2023-0 7-18 00:00: 00 Yes [id number] Apply to area(s) 2 (two) times daily. [facility] terbinafine HCL 1 % cream 2022-0 7-18 00:00: 00 Yes [id number] Apply to area(s) 2 (two) times daily. [facility] terbinafine HCL 1 % cream 2023-0 7-18 00:00: 00 Yes [id number] Apply to area(s) 2 (two) times daily. [facility] terbinafine HCL 1 % cream 2022-0 7-18 00:00: 00 Yes [id number] Apply to area(s) 2 (two) times daily. [facility] terbinafine HCL 1 % cream 2022-0 7-18 00:00: 00 Yes [id number] Apply to area(s) 2 (two) times daily. [facility] terbinafine HCL 1 % cream 2022-0 7-18 00:00: 00 Yes [id number] Apply to area(s) 2 (two) times daily. [facility] terbinafine HCL 1 % cream 2022-0 7-18 00:00: 00 Yes [id number] Apply to area(s) 2 (two) times daily. [facility] terbinafine HCL 1 % cream 2022-0 7-18 00:00: 00 Yes [id number] Apply to area(s) 2 (two) times daily. [facility] terbinafine HCL 1 % cream 2022-0 7-18 00:00: 00 Yes [id number] Apply to area(s) 2 (two) times daily. [facility] cephALEXin 500 mg capsule 0 427 09:34: 27 Yes 500mg Take 1 capsule by mouth 4 (four) times daily. [facility] acetaminoph en 650 mg CR tablet 0 04-08 09:49: 35 Yes 650mg Take 1 tablet by mouth every 8 (eight) hours as needed for Pain. [facility] MELOXICAM ORAL 0 04-08 09:49: 35 Yes 15mg Take 15 mg by mouth. [facility] Lactobacill us acidoph-pec tin capsule 2022-0 04-08 09:49: 35 Yes 1{capsu le} Take 1 capsule by mouth in the morning. [facility] loperamide (IMODIUM A-D) 2 mg capsule 0 04-08 09:49: 35 Yes 2mg Take 1 capsule by mouth every 4 (four) hours as needed for Diarrhea. [facility] acetaminoph en 650 mg CR tablet 2022-0 04-08 09:49: 35 Yes 650mg Take 1 tablet by mouth every 8 (eight) hours as needed for Pain. [facility] MELOXICAM ORAL 2022-0 04-08 09:49: 35 Yes 15mg Take 15 mg by mouth. [facility] Lactobacill us acidoph-pec tin capsule 2022-0 04-08 09:49: 35 Yes 1{capsu le} Take 1 capsule by mouth in the morning. [facility] loperamide (IMODIUM A-D) 2 mg capsule 2022-0 04-08 09:49: 35 Yes 2mg Take 1 capsule by mouth every 4 (four) hours as needed for Diarrhea. [facility] acetaminoph en 650 mg CR tablet 0 04-08 09:49: 35 Yes 650mg Take 1 tablet by mouth every 8 (eight) hours as needed for Pain. [facility] MELOXICAM ORAL 2022-0 04-08 09:49: 35 Yes 15mg Take 15 mg by mouth. [facility] Lactobacill us acidoph-pec tin capsule 2022-0 04-08 09:49: 35 Yes 1{capsu le} Take 1 capsule by mouth in the morning. [facility] loperamide (IMODIUM A-D) 2 mg capsule 2022-0 04-08 09:49: 35 Yes 2mg Take 1 capsule by mouth every 4 (four) hours as needed for Diarrhea. [facility] acetaminoph en 650 mg CR tablet 2022-0 04-08 09:49: 35 Yes 650mg Take 1 tablet by mouth every 8 (eight) hours as needed for Pain. [facility] MELOXICAM ORAL 2022-0 04-08 09:49: 35 Yes 15mg Take 15 mg by mouth. [facility] Lactobacill us acidoph-pec tin capsule 2022-0 04-08 09:49: 35 Yes 1{capsu le} Take 1 capsule by mouth in the morning. [facility] loperamide (IMODIUM A-D) 2 mg capsule 2022-0 04-08 09:49: 35 Yes 2mg Take 1 capsule by mouth every 4 (four) hours as needed for Diarrhea. [facility] acetaminoph en 650 mg CR tablet 2022-0 04-08 09:49: 35 Yes 650mg Take 1 tablet by mouth every 8 (eight) hours as needed for Pain. [facility] MELOXICAM ORAL 2022-0 04-08 09:49: 35 Yes 15mg Take 15 mg by mouth. [facility] Lactobacill us acidoph-pec tin capsule 2022-0 04-08 09:49: 35 Yes 1{capsu le} Take 1 capsule by mouth in the morning. [facility] loperamide (IMODIUM A-D) 2 mg capsule 2022-0 04-08 09:49: 35 Yes 2mg Take 1 capsule by mouth every 4 (four) hours as needed for Diarrhea. [facility] acetaminoph en 650 mg CR tablet 0 04-08 09:49: 35 Yes 650mg Take 1 tablet by mouth every 8 (eight) hours as needed for Pain. [facility] MELOXICAM ORAL 2022-0 04-08 09:49: 35 Yes 15mg Take 15 mg by mouth. [facility] Lactobacill us acidoph-pec tin capsule 2022-0 04-08 09:49: 35 Yes 1{capsu le} Take 1 capsule by mouth in the morning. [facility] loperamide (IMODIUM A-D) 2 mg capsule 2022-0 04-08 09:49: 35 Yes 2mg Take 1 capsule by mouth every 4 (four) hours as needed for Diarrhea. [facility] acetaminoph en 650 mg CR tablet 2022-0 04-08 09:49: 35 Yes 650mg Take 1 tablet by mouth every 8 (eight) hours as needed for Pain. [facility] MELOXICAM ORAL 2022-0 04-08 09:49: 35 Yes 15mg Take 15 mg by mouth. [facility] Lactobacill us acidoph-pec tin capsule 2022-0 04-08 09:49: 35 Yes 1{capsu le} Take 1 capsule by mouth in the morning. [facility] loperamide (IMODIUM A-D) 2 mg capsule 2022-0 04-08 09:49: 35 Yes 2mg Take 1 capsule by mouth every 4 (four) hours as needed for Diarrhea. [facility] acetaminoph en 650 mg CR tablet 2022-0 04-08 09:49: 35 Yes 650mg Take 1 tablet by mouth every 8 (eight) hours as needed for Pain. [facility] MELOXICAM ORAL 2022-0 04-08 09:49: 35 Yes 15mg Take 15 mg by mouth. [facility] Lactobacill us acidoph-pec tin capsule 2022-0 04-08 09:49: 35 Yes 1{capsu le} Take 1 capsule by mouth in the morning. [facility] loperamide (IMODIUM A-D) 2 mg capsule 2022-0 04-08 09:49: 35 Yes 2mg Take 1 capsule by mouth every 4 (four) hours as needed for Diarrhea. [facility] acetaminoph en 650 mg CR tablet 0 04-08 09:49: 35 Yes 650mg Take 1 tablet by mouth every 8 (eight) hours as needed for Pain. [facility] MELOXICAM ORAL 2022-0 04-08 09:49: 35 Yes 15mg Take 15 mg by mouth. [facility] Lactobacill us acidoph-pec tin capsule 2022-0 04-08 09:49: 35 Yes 1{capsu le} Take 1 capsule by mouth in the morning. [facility] loperamide (IMODIUM A-D) 2 mg capsule 2022-0 04-08 09:49: 35 Yes 2mg Take 1 capsule by mouth every 4 (four) hours as needed for Diarrhea. [facility] acetaminoph en 650 mg CR tablet 2022-0 3-02 09:49: 35 Yes 650mg Take 1 tablet by mouth every 8 (eight) hours as needed for Pain. [facility] MELOXICAM ORAL 3-0 04-08 09:49: 35 Yes 15mg Take 15 mg by mouth. [facility] Lactobacill us acidoph-pec tin capsule 2022-0 04-08 09:49: 35 Yes 1{capsu le} Take 1 capsule by mouth in the morning. [facility] loperamide (IMODIUM A-D) 2 mg capsule 2022-0 04-08 09:49: 35 Yes 2mg Take 1 capsule by mouth every 4 (four) hours as needed for Diarrhea. [facility] acetaminoph en 650 mg CR tablet 2022-0 04-08 09:49: 35 Yes 650mg Take 1 tablet by mouth every 8 (eight) hours as needed for Pain. [facility] MELOXICAM ORAL 2022-0 04-08 09:49: 35 Yes 15mg Take 15 mg by mouth. [facility] Lactobacill us acidoph-pec tin capsule 2022-0 04-08 09:49: 35 Yes 1{capsu le} Take 1 capsule by mouth in the morning. [facility] loperamide (IMODIUM A-D) 2 mg capsule 2022-0 04-08 09:49: 35 Yes 2mg Take 1 capsule by mouth every 4 (four) hours as needed for Diarrhea. [facility] acetaminoph en 650 mg CR tablet 2022-0 04-08 09:49: 35 Yes 650mg Take 1 tablet by mouth every 8 (eight) hours as needed for Pain. [facility] MELOXICAM ORAL 2022-0 04-08 09:49: 35 Yes 15mg Take 15 mg by mouth. [facility] Lactobacill us acidoph-pec tin capsule 2022-0 04-08 09:49: 35 Yes 1{capsu le} Take 1 capsule by mouth in the morning. [facility] loperamide (IMODIUM A-D) 2 mg capsule 3-0 04-08 09:49: 35 Yes 2mg Take 1 capsule by mouth every 4 (four) hours as needed for Diarrhea. [facility] acetaminoph en 650 mg CR tablet 2022-0 04-08 09:49: 35 Yes 650mg Take 1 tablet by mouth every 8 (eight) hours as needed for Pain. [facility] MELOXICAM ORAL 2022-0 04-08 09:49: 35 Yes 15mg Take 15 mg by mouth. [facility] Lactobacill us acidoph-pec tin capsule 2022-0 04-08 09:49: 35 Yes 1{capsu le} Take 1 capsule by mouth in the morning. [facility] loperamide (IMODIUM A-D) 2 mg capsule 2022-0 04-08 09:49: 35 Yes 2mg Take 1 capsule by mouth every 4 (four) hours as needed for Diarrhea. [facility] acetaminoph en 650 mg CR tablet 2022-0 04-08 09:49: 35 Yes 650mg Take 1 tablet by mouth every 8 (eight) hours as needed for Pain. [facility] MELOXICAM ORAL 2022-0 04-08 09:49: 35 Yes 15mg Take 15 mg by mouth. [facility] Lactobacill us acidoph-pec tin capsule 2022-0 04-08 09:49: 35 Yes 1{capsu le} Take 1 capsule by mouth in the morning. [facility] loperamide (IMODIUM A-D) 2 mg capsule 2022-0 04-08 09:49: 35 Yes 2mg Take 1 capsule by mouth every 4 (four) hours as needed for Diarrhea. [facility] acetaminoph en 650 mg CR tablet 0 04-08 09:49: 35 Yes 650mg Take 1 tablet by mouth every 8 (eight) hours as needed for Pain. [facility] MELOXICAM ORAL 2022-0 04-08 09:49: 35 Yes 15mg Take 15 mg by mouth. [facility] Lactobacill us acidoph-pec tin capsule 2022-0 04-08 09:49: 35 Yes 1{capsu le} Take 1 capsule by mouth in the morning. [facility] loperamide (IMODIUM A-D) 2 mg capsule 2022-0 04-08 09:49: 35 Yes 2mg Take 1 capsule by mouth every 4 (four) hours as needed for Diarrhea. [facility] acetaminoph en 650 mg CR tablet 2022-0 04-08 09:49: 35 Yes 650mg Take 1 tablet by mouth every 8 (eight) hours as needed for Pain. [facility] MELOXICAM ORAL 2022-0 04-08 09:49: 35 Yes 15mg Take 15 mg by mouth. [facility] Lactobacill us acidoph-pec tin capsule 2022-0 04-08 09:49: 35 Yes 1{capsu le} Take 1 capsule by mouth in the morning. [facility] loperamide (IMODIUM A-D) 2 mg capsule 2022-0 04-08 09:49: 35 Yes 2mg Take 1 capsule by mouth every 4 (four) hours as needed for Diarrhea. [facility] acetaminoph en 650 mg CR tablet 2022-0 04-08 09:49: 35 Yes 650mg Take 1 tablet by mouth every 8 (eight) hours as needed for Pain. [facility] MELOXICAM ORAL 2022-0 04-08 09:49: 35 Yes 15mg Take 15 mg by mouth. [facility] Lactobacill us acidoph-pec tin capsule 2022-0 04-08 09:49: 35 Yes 1{capsu le} Take 1 capsule by mouth in the morning. [facility] loperamide (IMODIUM A-D) 2 mg capsule 2022-0 04-08 09:49: 35 Yes 2mg Take 1 capsule by mouth every 4 (four) hours as needed for Diarrhea. [facility] acetaminoph en 650 mg CR tablet 2022-0 04-08 09:49: 35 Yes 650mg Take 1 tablet by mouth every 8 (eight) hours as needed for Pain. [facility] MELOXICAM ORAL 2022-0 04-08 09:49: 35 Yes 15mg Take 15 mg by mouth. [facility] Lactobacill us acidoph-pec tin capsule 3-0 04-08 09:49: 35 Yes 1{capsu le} Take 1 capsule by mouth in the morning. [facility] loperamide (IMODIUM A-D) 2 mg capsule 2022-0 04-08 09:49: 35 Yes 2mg Take 1 capsule by mouth every 4 (four) hours as needed for Diarrhea. [facility] acetaminoph en 650 mg CR tablet 2022-0 04-08 09:49: 35 Yes 650mg Take 1 tablet by mouth every 8 (eight) hours as needed for Pain. [facility] MELOXICAM ORAL 2022-0 04-08 09:49: 35 Yes 15mg Take 15 mg by mouth. [facility] Lactobacill us acidoph-pec tin capsule 2022-0 04-08 09:49: 35 Yes 1{capsu le} Take 1 capsule by mouth in the morning. [facility] loperamide (IMODIUM A-D) 2 mg capsule 2022-0 04-08 09:49: 35 Yes 2mg Take 1 capsule by mouth every 4 (four) hours as needed for Diarrhea. [facility] acetaminoph en 650 mg CR tablet 2022-0 04-08 09:49: 35 Yes 650mg Take 1 tablet by mouth every 8 (eight) hours as needed for Pain. [facility] MELOXICAM ORAL 2022-0 04-08 09:49: 35 Yes 15mg Take 15 mg by mouth. [facility] Lactobacill us acidoph-pec tin capsule 2022-0 04-08 09:49: 35 Yes 1{capsu le} Take 1 capsule by mouth in the morning. [facility] loperamide (IMODIUM A-D) 2 mg capsule 2022-0 04-08 09:49: 35 Yes 2mg Take 1 capsule by mouth every 4 (four) hours as needed for Diarrhea. [facility] acetaminoph en 650 mg CR tablet 2022-0 04-08 09:49: 35 Yes 650mg Take 1 tablet by mouth every 8 (eight) hours as needed for Pain. [facility] MELOXICAM ORAL 2022-0 04-08 09:49: 35 Yes 15mg Take 15 mg by mouth. [facility] Lactobacill us acidoph-pec tin capsule 2022-0 04-08 09:49: 35 Yes 1{capsu le} Take 1 capsule by mouth in the morning. [facility] loperamide (IMODIUM A-D) 2 mg capsule 2022-0 04-08 09:49: 35 Yes 2mg Take 1 capsule by mouth every 4 (four) hours as needed for Diarrhea. [facility] acetaminoph en 650 mg CR tablet 2022-0 04-08 09:49: 35 Yes 650mg Take 1 tablet by mouth every 8 (eight) hours as needed for Pain. [facility] MELOXICAM ORAL 2022-0 04-08 09:49: 35 Yes 15mg Take 15 mg by mouth. [facility] Lactobacill us acidoph-pec tin capsule 2022-0 04-08 09:49: 35 Yes 1{capsu le} Take 1 capsule by mouth in the morning. [facility] loperamide (IMODIUM A-D) 2 mg capsule 2022-0 04-08 09:49: 35 Yes 2mg Take 1 capsule by mouth every 4 (four) hours as needed for Diarrhea. [facility] acetaminoph en 650 mg CR tablet 0 04-08 09:49: 35 Yes 650mg Take 1 tablet by mouth every 8 (eight) hours as needed for Pain. [facility] MELOXICAM ORAL 2022-0 04-08 09:49: 35 Yes 15mg Take 15 mg by mouth. [facility] Lactobacill us acidoph-pec tin capsule 2022-0 04-08 09:49: 35 Yes 1{capsu le} Take 1 capsule by mouth in the morning. [facility] loperamide (IMODIUM A-D) 2 mg capsule 2022-0 04-08 09:49: 35 Yes 2mg Take 1 capsule by mouth every 4 (four) hours as needed for Diarrhea. [facility] acetaminoph en 650 mg CR tablet 2022-0 04-08 09:49: 35 Yes 650mg Take 1 tablet by mouth every 8 (eight) hours as needed for Pain. [facility] MELOXICAM ORAL 2022-0 04-08 09:49: 35 Yes 15mg Take 15 mg by mouth. [facility] Lactobacill us acidoph-pec tin capsule 2022-0 04-08 09:49: 35 Yes 1{capsu le} Take 1 capsule by mouth in the morning. [facility] loperamide (IMODIUM A-D) 2 mg capsule 2022-0 04-08 09:49: 35 Yes 2mg Take 1 capsule by mouth every 4 (four) hours as needed for Diarrhea. [facility] acetaminoph en 650 mg CR tablet 2022-0 04-08 09:49: 35 Yes 650mg Take 1 tablet by mouth every 8 (eight) hours as needed for Pain. [facility] MELOXICAM ORAL 2022-0 04-08 09:49: 35 Yes 15mg Take 15 mg by mouth. [facility] Lactobacill us acidoph-pec tin capsule 2022-0 04-08 09:49: 35 Yes 1{capsu le} Take 1 capsule by mouth in the morning. [facility] loperamide (IMODIUM A-D) 2 mg capsule 2022-0 04-08 09:49: 35 Yes 2mg Take 1 capsule by mouth every 4 (four) hours as needed for Diarrhea. [facility] acetaminoph en 650 mg CR tablet 0 04-08 09:49: 35 Yes 650mg Take 1 tablet by mouth every 8 (eight) hours as needed for Pain. [facility] MELOXICAM ORAL 2022-0 04-08 09:49: 35 Yes 15mg Take 15 mg by mouth. [facility] Lactobacill us acidoph-pec tin capsule 2022-0 04-08 09:49: 35 Yes 1{capsu le} Take 1 capsule by mouth in the morning. [facility] loperamide (IMODIUM A-D) 2 mg capsule 2022-0 04-08 09:49: 35 Yes 2mg Take 1 capsule by mouth every 4 (four) hours as needed for Diarrhea. [facility] acetaminoph en 650 mg CR tablet 2022-0 04-08 09:49: 35 Yes 650mg Take 1 tablet by mouth every 8 (eight) hours as needed for Pain. [facility] MELOXICAM ORAL 2022-0 04-08 09:49: 35 Yes 15mg Take 15 mg by mouth. [facility] Lactobacill us acidoph-pec tin capsule 2022-0 04-08 09:49: 35 Yes 1{capsu le} Take 1 capsule by mouth in the morning. [facility] loperamide (IMODIUM A-D) 2 mg capsule 2022-0 04-08 09:49: 35 Yes 2mg Take 1 capsule by mouth every 4 (four) hours as needed for Diarrhea. [facility] acetaminoph en 650 mg CR tablet 2022-0 04-08 09:49: 35 Yes 650mg Take 1 tablet by mouth every 8 (eight) hours as needed for Pain. [facility] MELOXICAM ORAL 2022-0 04-08 09:49: 35 Yes 15mg Take 15 mg by mouth. [facility] Lactobacill us acidoph-pec tin capsule 2022-0 04-08 09:49: 35 Yes 1{capsu le} Take 1 capsule by mouth in the morning. [facility] loperamide (IMODIUM A-D) 2 mg capsule 2022-0 04-08 09:49: 35 Yes 2mg Take 1 capsule by mouth every 4 (four) hours as needed for Diarrhea. [facility] acetaminoph en 650 mg CR tablet 0 04-08 09:49: 35 Yes 650mg Take 1 tablet by mouth every 8 (eight) hours as needed for Pain. [facility] MELOXICAM ORAL 2022-0 04-08 09:49: 35 Yes 15mg Take 15 mg by mouth. [facility] Lactobacill us acidoph-pec tin capsule 2022-0 04-08 09:49: 35 Yes 1{capsu le} Take 1 capsule by mouth in the morning. [facility] loperamide (IMODIUM A-D) 2 mg capsule 2022-0 04-08 09:49: 35 Yes 2mg Take 1 capsule by mouth every 4 (four) hours as needed for Diarrhea. [facility] acetaminoph en 650 mg CR tablet 2022-0 04-08 09:49: 35 Yes 650mg Take 1 tablet by mouth every 8 (eight) hours as needed for Pain. [facility] MELOXICAM ORAL 2022-0 04-08 09:49: 35 Yes 15mg Take 15 mg by mouth. [facility] Lactobacill us acidoph-pec tin capsule 2022-0 04-08 09:49: 33 Yes 1{capsu le} Take 1 capsule by mouth in the morning. [facility] loperamide (IMODIUM A-D) 2 mg capsule 2022-0 04-08 09:49: 35 Yes 2mg Take 1 capsule by mouth every 4 (four) hours as needed for Diarrhea. [facility] acetaminoph en 650 mg CR tablet 0 04-08 09:49: 35 Yes 650mg Take 1 tablet by mouth every 8 (eight) hours as needed for Pain. [facility] MELOXICAM ORAL 2022-0 04-08 09:49: 35 Yes 15mg Take 15 mg by mouth. [facility] Lactobac[facility] us acidoph-pec tin capsule 2022-0 04-08 09:49: 35 Yes 1{capsu le} Take 1 capsule by mouth in the morning. [facility] loperamide (IMODIUM A-D) 2 mg capsule 2022-0 04-08 09:49: 35 Yes 2mg Take 1 capsule by mouth every 4 (four) hours as needed for Diarrhea. [facility] acetaminoph en 650 mg CR tablet 0 04-08 09:49: 35 Yes 650mg Take 1 tablet by mouth every 8 (eight) hours as needed for Pain. [facility] MELOXICAM ORAL 2022-0 04-08 09:49: 35 Yes 15mg Take 15 mg by mouth. [facility] Lactobacill us acidoph-pec tin capsule 2022-0 04-08 09:49: 35 Yes 1{capsu le} Take 1 capsule by mouth in the morning. [facility] loperamide (IMODIUM A-D) 2 mg capsule 2022-0 04-08 09:49: 35 Yes 2mg Take 1 capsule by mouth every 4 (four) hours as needed for Diarrhea. [facility] acetaminoph en 650 mg CR tablet 2022-0 04-08 09:49: 35 Yes 650mg Take 1 tablet by mouth every 8 (eight) hours as needed for Pain. [facility] MELOXICAM ORAL 2022-0 04-08 09:49: 35 Yes 15mg Take 15 mg by mouth. [facility] Lactobacill us acidoph-pec tin capsule 2022-0 04-08 09:49: 35 Yes 1{capsu le} Take 1 capsule by mouth in the morning. [facility] loperamide (IMODIUM A-D) 2 mg capsule 2022-0 04-08 09:49: 35 Yes 2mg Take 1 capsule by mouth every 4 (four) hours as needed for Diarrhea. [facility] acetaminoph en 650 mg CR tablet 0 04-08 09:49: 35 Yes 650mg Take 1 tablet by mouth every 8 (eight) hours as needed for Pain. [facility] MELOXICAM ORAL 0 04-08 09:49: 35 Yes 15mg Take 15 mg by mouth. [facility] Lactobacill us acidoph-pec tin capsule 04-08 09:49: 35 Yes 1{capsu le} Take 1 capsule by mouth in the morning. [facility] loperamide (IMODIUM A-D) 2 mg capsule 0 04-08 09:49: 35 Yes 2mg Take 1 capsule by mouth every 4 (four) hours as needed for Diarrhea. [facility] acetaminoph en 650 mg CR tablet 04-08 09:49: 35 Yes 650mg Take 1 tablet by mouth every 8 (eight) hours as needed for Pain. [facility] MELOXICAM ORAL 04-08 09:49: 35 Yes 15mg Take 15 mg by mouth. [facility] acetaminoph en 650 mg CR tablet 04-08 09:49: 35 Yes 650mg Take 1 tablet by mouth every 8 (eight) hours as needed for Pain. [facility] acetaminoph en 650 mg CR tablet 0 04-08 09:49: 35 Yes 650mg Take 1 tablet by mouth every 8 (eight) hours as needed for Pain. [facility] acetaminoph en 650 mg CR tablet 0 04-08 09:49: 35 Yes 650mg Take 1 tablet by mouth every 8 (eight) hours as needed for Pain. [facility] Lactobacill us acidoph-pec tin capsule 2022-0 04-08 09:49: 35 Yes 1{capsu le} Take 1 capsule by mouth in the morning. [facility] loperamide (IMODIUM A-D) 2 mg capsule 2022-0 04-08 09:49: 35 Yes 2mg Take 1 capsule by mouth every 4 (four) hours as needed for Diarrhea. [facility] acetaminoph en 650 mg CR tablet 2022-0 04-08 09:49: 35 Yes 650mg Take 1 tablet by mouth every 8 (eight) hours as needed for Pain. [facility] Lactobacill us acidoph-pec tin capsule 0 04-08 09:49: 35 Yes 1{capsu le} Take 1 capsule by mouth in the morning. [facility] loperamide (IMODIUM A-D) 2 mg capsule 04-08 09:49: 35 Yes 2mg Take 1 capsule by mouth every 4 (four) hours as needed for Diarrhea. [facility] acetaminoph en 650 mg CR tablet 0 04-08 09:49: 35 Yes 650mg Take 1 tablet by mouth every 8 (eight) hours as needed for Pain. [facility] acidoph-pec tin capsule 04-08 09:49: 35 Yes 1{capsu le} Take 1 capsule by mouth in the morning. [facility] loperamide (IMODIUM A-D) 2 mg capsule 2022-0 04-08 09:49: 35 Yes 2mg Take 1 capsule by mouth every 4 (four) hours as needed for Diarrhea. [facility] acetaminoph en 650 mg CR tablet 0 04-08 09:49: 35 Yes 650mg Take 1 tablet by mouth every 8 (eight) hours as needed for Pain. [facility] Lactobacill us acidoph-pec tin capsule 2022-0 04-08 09:49: 35 Yes 1{capsu le} Take 1 capsule by mouth in the morning. [facility] loperamide (IMODIUM A-D) 2 mg capsule 0 04-08 09:49: 35 Yes 2mg Take 1 capsule by mouth every 4 (four) hours as needed for Diarrhea. [facility] acetaminoph en 650 mg CR tablet 2022-0 04-08 09:49: 35 Yes 650mg Take 1 tablet by mouth every 8 (eight) hours as needed for Pain. [facility] Lactobacill us acidoph-pec tin capsule 2022-0 04-08 09:49: 35 Yes 1{capsu le} Take 1 capsule by mouth in the morning. [facility] loperamide (IMODIUM A-D) 2 mg capsule 2022-0 04-08 09:49: 35 Yes 2mg Take 1 capsule by mouth every 4 (four) hours as needed for Diarrhea. [facility] acetaminoph en 650 mg CR tablet 2022-0 04-08 09:49: 35 Yes 650mg Take 1 tablet by mouth every 8 (eight) hours as needed for Pain. [facility] Lactobacill us acidoph-pec tin capsule 2022-0 04-08 09:49: 35 Yes 1{capsu le} Take 1 capsule by mouth in the morning. [facility] loperamide (IMODIUM A-D) 2 mg capsule 2022-0 04-08 09:49: 35 Yes 2mg Take 1 capsule by mouth every 4 (four) hours as needed for Diarrhea. [facility] acetaminoph en 650 mg CR tablet 0 04-08 09:49: 35 Yes 650mg Take 1 tablet by mouth every 8 (eight) hours as needed for Pain. [facility] Lactobacill us acidoph-pec tin capsule 2022-0 04-08 09:49: 35 Yes 1{capsu le} Take 1 capsule by mouth in the morning. [facility] loperamide (IMODIUM A-D) 2 mg capsule 2022-0 04-08 09:49: 35 Yes 2mg Take 1 capsule by mouth every 4 (four) hours as needed for Diarrhea. [facility] acetaminoph en 650 mg CR tablet 2022-0 04-08 09:49: 35 Yes 650mg Take 1 tablet by mouth every 8 (eight) hours as needed for Pain. [facility] Lactobacill us acidoph-pec tin capsule 2022-0 04-08 09:49: 35 Yes 1{capsu le} Take 1 capsule by mouth in the morning. [facility] loperamide (IMODIUM A-D) 2 mg capsule 2022-0 04-08 09:49: 35 Yes 2mg Take 1 capsule by mouth every 4 (four) hours as needed for Diarrhea. [facility] acetaminoph en 650 mg CR tablet 2022-0 04-08 09:49: 35 Yes 650mg Take 1 tablet by mouth every 8 (eight) hours as needed for Pain. [facility] Lactobacill us acidoph-pec tin capsule 2022-0 04-08 09:49: 35 Yes 1{capsu le} Take 1 capsule by mouth in the morning. [facility] loperamide (IMODIUM A-D) 2 mg capsule 2022-0 04-08 09:49: 35 Yes 2mg Take 1 capsule by mouth every 4 (four) hours as needed for Diarrhea. [facility] acetaminoph en 650 mg CR tablet 0 04-08 09:49: 35 Yes 650mg Take 1 tablet by mouth every 8 (eight) hours as needed for Pain. [facility] Lactobacill us acidoph-pec tin capsule 2022-0 04-08 09:49: 35 Yes 1{capsu le} Take 1 capsule by mouth in the morning. [facility] loperamide (IMODIUM A-D) 2 mg capsule 2022-0 04-08 09:49: 35 Yes 2mg Take 1 capsule by mouth every 4 (four) hours as needed for Diarrhea. [facility] acetaminoph en 650 mg CR tablet 2022-0 04-08 09:49: 35 Yes 650mg Take 1 tablet by mouth every 8 (eight) hours as needed for Pain. [facility] Lactobac[facility] us acidoph-pec tin capsule 2022-0 04-08 09:49: 35 Yes 1{capsu le} Take 1 capsule by mouth in the morning. [facility] loperamide (IMODIUM A-D) 2 mg capsule 2022-0 04-08 09:49: 35 Yes 2mg Take 1 capsule by mouth every 4 (four) hours as needed for Diarrhea. [facility] acetaminoph en 650 mg CR tablet 0 04-08 09:49: 35 Yes 650mg Take 1 tablet by mouth every 8 (eight) hours as needed for Pain. [facility] Lactobacill us acidoph-pec tin capsule 2022-0 04-08 09:49: 35 Yes 1{capsu le} Take 1 capsule by mouth in the morning. [facility] loperamide (IMODIUM A-D) 2 mg capsule 2022-0 04-08 09:49: 35 Yes 2mg Take 1 capsule by mouth every 4 (four) hours as needed for Diarrhea. [facility] acetaminoph en 650 mg CR tablet 04-08 09:49: 35 Yes 650mg Take 1 tablet by mouth every 8 (eight) hours as needed for Pain. [facility] Lactobacill us acidoph-pec tin capsule 2022-04-08 09:49: 35 Yes 1{capsu le} Take 1 capsule by mouth in the morning. [facility] loperamide (IMODIUM A-D) 2 mg capsule 2022-0 04-08 09:49: 35 Yes 2mg Take 1 capsule by mouth every 4 (four) hours as needed for Diarrhea. [facility] acetaminoph en 650 mg CR tablet 04-08 09:49: 35 Yes 650mg Take 1 tablet by mouth every 8 (eight) hours as needed for Pain. [facility] Lactobacill us acidoph-pec tin capsule 04-08 09:49: 35 Yes 1{capsu le} Take 1 capsule by mouth in the morning. [facility] loperamide (IMODIUM A-D) 2 mg capsule 2022-0 04-08 09:49: 35 Yes 2mg Take 1 capsule by mouth every 4 (four) hours as needed for Diarrhea. [facility] acetaminoph en 650 mg CR tablet 0 04-08 09:49: 35 Yes 650mg Take 1 tablet by mouth every 8 (eight) hours as needed for Pain. [facility] Lactobacill us acidoph-pec tin capsule 2022-0 04-08 09:49: 35 Yes 1{capsu le} Take 1 capsule by mouth in the morning. [facility] loperamide (IMODIUM A-D) 2 mg capsule 2022-0 04-08 09:49: 35 Yes 2mg Take 1 capsule by mouth every 4 (four) hours as needed for Diarrhea. [facility] acetaminoph en 650 mg CR tablet 2022-0 04-08 09:49: 35 Yes 650mg Take 1 tablet by mouth every 8 (eight) hours as needed for Pain. [facility] Lactobacill us acidoph-pec tin capsule 2022-0 04-08 09:49: 35 Yes 1{capsu le} Take 1 capsule by mouth in the morning. [facility] loperamide (IMODIUM A-D) 2 mg capsule 2022-0 04-08 09:49: 35 Yes 2mg Take 1 capsule by mouth every 4 (four) hours as needed for Diarrhea. [facility] acetaminoph en 650 mg CR tablet 0 04-08 09:49: 35 Yes 650mg Take 1 tablet by mouth every 8 (eight) hours as needed for Pain. [facility] Lactobac[facility] us acidoph-pec tin capsule 2022-0 04-08 09:49: 35 Yes 1{capsu le} Take 1 capsule by mouth in the morning. [facility] loperamide (IMODIUM A-D) 2 mg capsule 2022-0 04-08 09:49: 35 Yes 2mg Take 1 capsule by mouth every 4 (four) hours as needed for Diarrhea. [facility] acetaminoph en 650 mg CR tablet 2022-0 04-08 09:49: 35 Yes 650mg Take 1 tablet by mouth every 8 (eight) hours as needed for Pain. [facility] Lact[facility] us acidoph-pec tin capsule 2022-0 04-08 09:49: 35 Yes 1{capsu le} Take 1 capsule by mouth in the morning. [facility] loperamide (IMODIUM A-D) 2 mg capsule 2022-0 04-08 09:49: 35 Yes 2mg Take 1 capsule by mouth every 4 (four) hours as needed for Diarrhea. [facility] acetaminoph en 650 mg CR tablet 2022-0 04-08 09:49: 35 Yes 650mg Take 1 tablet by mouth every 8 (eight) hours as needed for Pain. [facility] Lact[facility] us acidoph-pec tin capsule 2022-0 04-08 09:49: 35 Yes 1{capsu le} Take 1 capsule by mouth in the morning. [facility] loperamide (IMODIUM A-D) 2 mg capsule 2022-0 04-08 09:49: 35 Yes 2mg Take 1 capsule by mouth every 4 (four) hours as needed for Diarrhea. [facility] acetaminoph en 650 mg CR tablet 0 04-08 09:49: 35 Yes 650mg Take 1 tablet by mouth every 8 (eight) hours as needed for Pain. [facility] Lact[facility] us acidoph-pec tin capsule 2022-0 04-08 09:49: 35 Yes 1{capsu le} Take 1 capsule by mouth in the morning. [facility] loperamide (IMODIUM A-D) 2 mg capsule 2022-0 04-08 09:49: 35 Yes 2mg Take 1 capsule by mouth every 4 (four) hours as needed for Diarrhea. [facility] acetaminoph en 650 mg CR tablet 04-08 09:49: 35 Yes 650mg Take 1 tablet by mouth every 8 (eight) hours as needed for Pain. [facility] Lactobac[facility] us acidoph-pec tin capsule 2022-0 04-08 09:49: 35 Yes 1{capsu le} Take 1 capsule by mouth in the morning. [facility] loperamide (IMODIUM A-D) 2 mg capsule 2022-0 04-08 09:49: 35 Yes 2mg Take 1 capsule by mouth every 4 (four) hours as needed for Diarrhea. [facility] acetaminoph en 650 mg CR tablet 2022-0 04-08 09:49: 35 Yes 650mg Take 1 tablet by mouth every 8 (eight) hours as needed for Pain. [facility] Lact[facility] us acidoph-pec tin capsule 2022-0 04-08 09:49: 35 Yes 1{capsu le} Take 1 capsule by mouth in the morning. [facility] loperamide (IMODIUM A-D) 2 mg capsule 2022-0 04-08 09:49: 35 Yes 2mg Take 1 capsule by mouth every 4 (four) hours as needed for Diarrhea. [facility] acetaminoph en 650 mg CR tablet 2022-0 04-08 09:49: 35 Yes 650mg Take 1 tablet by mouth every 8 (eight) hours as needed for Pain. [facility] us acidoph-pec tin capsule 2022-0 04-08 09:49: 35 Yes 1{capsu le} Take 1 capsule by mouth in the morning. [facility] loperamide (IMODIUM A-D) 2 mg capsule 2022-0 04-08 09:49: 35 Yes 2mg Take 1 capsule by mouth every 4 (four) hours as needed for Diarrhea. [facility] acetaminoph en 650 mg CR tablet 0 04-08 09:49: 35 Yes 650mg Take 1 tablet by mouth every 8 (eight) hours as needed for Pain. [facility] us acidoph-pec tin capsule 2022-0 04-08 09:49: 35 Yes 1{capsu le} Take 1 capsule by mouth in the morning. [facility] loperamide (IMODIUM A-D) 2 mg capsule 2022-0 04-08 09:49: 35 Yes 2mg Take 1 capsule by mouth every 4 (four) hours as needed for Diarrhea. [facility] acetaminoph en 650 mg CR tablet 0 04-08 09:49: 35 Yes 650mg Take 1 tablet by mouth every 8 (eight) hours as needed for Pain. [facility] Lactobac[facility] us acidoph-pec tin capsule 2022-0 04-08 09:49: 35 Yes 1{capsu le} Take 1 capsule by mouth in the morning. [facility] loperamide (IMODIUM A-D) 2 mg capsule 2022-0 04-08 09:49: 35 Yes 2mg Take 1 capsule by mouth every 4 (four) hours as needed for Diarrhea. [facility] acetaminoph en 650 mg CR tablet 2022-0 04-08 09:49: 35 Yes 650mg Take 1 tablet by mouth every 8 (eight) hours as needed for Pain. [facility] Lactobac[facility] us acidoph-pec tin capsule 2022-0 04-08 09:49: 35 Yes 1{capsu le} Take 1 capsule by mouth in the morning. [facility] loperamide (IMODIUM A-D) 2 mg capsule 2022-0 04-08 09:49: 35 Yes 2mg Take 1 capsule by mouth every 4 (four) hours as needed for Diarrhea. [facility] acetaminoph en 650 mg CR tablet 2022-0 04-08 09:49: 35 Yes 650mg Take 1 tablet by mouth every 8 (eight) hours as needed for Pain. [facility] Lact[facility] us acidoph-pec tin capsule 2022-0 04-08 09:49: 35 Yes 1{capsu le} Take 1 capsule by mouth in the morning. [facility] loperamide (IMODIUM A-D) 2 mg capsule 2022-04-08 09:49: 35 Yes 2mg Take 1 capsule by mouth every 4 (four) hours as needed for Diarrhea. [facility] acetaminoph en 650 mg CR tablet 04-08 09:49: 35 Yes 650mg Take 1 tablet by mouth every 8 (eight) hours as needed for Pain. [facility] Lact[facility] us acidoph-pec tin capsule 04-08 09:49: 35 Yes 1{capsu le} Take 1 capsule by mouth in the morning. [facility] loperamide (IMODIUM A-D) 2 mg capsule 2022-0 04-08 09:49: 35 Yes 2mg Take 1 capsule by mouth every 4 (four) hours as needed for Diarrhea. [facility] acetaminoph en 650 mg CR tablet 2022-0 04-08 09:49: 35 Yes 650mg Take 1 tablet by mouth every 8 (eight) hours as needed for Pain. [facility] us acidoph-pec tin capsule 2022-0 04-08 09:49: 35 Yes 1{capsu le} Take 1 capsule by mouth in the morning. [facility] loperamide (IMODIUM A-D) 2 mg capsule 2022-0 04-08 09:49: 35 Yes 2mg Take 1 capsule by mouth every 4 (four) hours as needed for Diarrhea. [facility] acetaminoph en 650 mg CR tablet 2022-0 04-08 09:49: 35 Yes 650mg Take 1 tablet by mouth every 8 (eight) hours as needed for Pain. [facility] us acidoph-pec tin capsule 2022-0 04-08 09:49: 35 Yes 1{capsu le} Take 1 capsule by mouth in the morning. [facility] loperamide (IMODIUM A-D) 2 mg capsule 2022-0 04-08 09:49: 35 Yes 2mg Take 1 capsule by mouth every 4 (four) hours as needed for Diarrhea. [facility] acetaminoph en 650 mg CR tablet 2022-0 04-08 09:49: 35 Yes 650mg Take 1 tablet by mouth every 8 (eight) hours as needed for Pain. [facility] us acidoph-pec tin capsule 2022-0 04-08 09:49: 35 Yes 1{capsu le} Take 1 capsule by mouth in the morning. [facility] loperamide (IMODIUM A-D) 2 mg capsule 2022-0 04-08 09:49: 35 Yes 2mg Take 1 capsule by mouth every 4 (four) hours as needed for Diarrhea. [facility] acetaminoph en 650 mg CR tablet 2022-0 04-08 09:49: 35 Yes 650mg Take 1 tablet by mouth every 8 (eight) hours as needed for Pain. [facility] us acidoph-pec tin capsule 2022-0 04-08 09:49: 35 Yes 1{capsu le} Take 1 capsule by mouth in the morning. [facility] loperamide (IMODIUM A-D) 2 mg capsule 2022-0 04-08 09:49: 35 Yes 2mg Take 1 capsule by mouth every 4 (four) hours as needed for Diarrhea. [facility] acetaminoph en 650 mg CR tablet 2022-0 04-08 09:49: 35 Yes 650mg Take 1 tablet by mouth every 8 (eight) hours as needed for Pain. [facility]act[facility] us acidoph-pec tin capsule 2022-0 04-08 09:49: 35 Yes 1{capsu le} Take 1 capsule by mouth in the morning. [facility] loperamide (IMODIUM A-D) 2 mg capsule 2022-0 04-08 09:49: 35 Yes 2mg Take 1 capsule by mouth every 4 (four) hours as needed for Diarrhea. [facility] acetaminoph en 650 mg CR tablet 2022-0 04-08 09:49: 35 Yes 650mg Take 1 tablet by mouth every 8 (eight) hours as needed for Pain. [facility] us acidoph-pec tin capsule 2022-0 04-08 09:49: 35 Yes 1{capsu le} Take 1 capsule by mouth in the morning. [facility] loperamide (IMODIUM A-D) 2 mg capsule 2022-0 04-08 09:49: 35 Yes 2mg Take 1 capsule by mouth every 4 (four) hours as needed for Diarrhea. [facility] acetaminoph en 650 mg CR tablet 0 04-08 09:49: 35 Yes 650mg Take 1 tablet by mouth every 8 (eight) hours as needed for Pain. [facility] acidoph-pec tin capsule 2022-0 04-08 09:49: 35 Yes 1{capsu le} Take 1 capsule by mouth in the morning. [facility] loperamide (IMODIUM A-D) 2 mg capsule 2022-04-08 09:49: 35 Yes 2mg Take 1 capsule by mouth every 4 (four) hours as needed for Diarrhea. [facility] acetaminoph en 650 mg CR tablet 0 04-08 09:49: 35 Yes 650mg Take 1 tablet by mouth every 8 (eight) hours as needed for Pain. [facility] acidoph-pec tin capsule 2022-0 04-08 09:49: 35 Yes 1{capsu le} Take 1 capsule by mouth in the morning. [facility] loperamide (IMODIUM A-D) 2 mg capsule 04-08 09:49: 35 Yes 2mg Take 1 capsule by mouth every 4 (four) hours as needed for Diarrhea. [facility] acetaminoph en 650 mg CR tablet 04-08 09:49: 35 Yes 650mg Take 1 tablet by mouth every 8 (eight) hours as needed for Pain. [facility] us acidoph-pec tin capsule 04-08 09:49: 35 Yes 1{capsu le} Take 1 capsule by mouth in the morning. [facility] loperamide (IMODIUM A-D) 2 mg capsule 04-08 09:49: 35 Yes 2mg Take 1 capsule by mouth every 4 (four) hours as needed for Diarrhea. [facility] acetaminoph en 650 mg CR tablet 04-08 09:49: 35 Yes 650mg Take 1 tablet by mouth every 8 (eight) hours as needed for Pain. [facility] us acidoph-pec tin capsule 04-08 09:49: 35 Yes 1{capsu le} Take 1 capsule by mouth in the morning. [facility] loperamide (IMODIUM A-D) 2 mg capsule 04-08 09:49: 35 Yes 2mg Take 1 capsule by mouth every 4 (four) hours as needed for Diarrhea. [facility] acetaminoph en 650 mg CR tablet 04-08 09:49: 35 Yes 650mg Take 1 tablet by mouth every 8 (eight) hours as needed for Pain. [facility] us acidoph-pec tin capsule 04-08 09:49: 35 Yes 1{capsu le} Take 1 capsule by mouth in the morning. [facility] loperamide (IMODIUM A-D) 2 mg capsule 04-08 09:49: 35 Yes 2mg Take 1 capsule by mouth every 4 (four) hours as needed for Diarrhea. [facility] HYDROcodone -acetaminop hen 7.5-325 mg per tablet 05 11:39: 30 Yes 1{tbl} Take 1 tablet by mouth every 6 (six) hours as needed. [facility] HYDROcodone -acetaminop hen 7.5-325 mg per tablet 02-11 11:39: 30 Yes 1{tbl} Take 1 tablet by mouth every 6 (six) hours as needed. [facility] HYDROcodone -acetaminop hen 7.5-325 mg per tablet 02-11 11:39: 30 Yes 1{tbl} Take 1 tablet by mouth every 6 (six) hours as needed. [facility] HYDROcodone -acetaminop hen 7.5-325 mg per tablet 02-11 11:39: 30 Yes 1{tbl} Take 1 tablet by mouth every 6 (six) hours as needed. [facility] HYDROcodone -acetaminop hen 7.5-325 mg per tablet 02-11 11:39: 30 Yes 1{tbl} Take 1 tablet by mouth every 6 (six) hours as needed. [facility] HYDROcodone -acetaminop hen 7.5-325 mg per tablet 02-11 11:39: 30 Yes 1{tbl} Take 1 tablet by mouth every 6 (six) hours as needed. [facility] HYDROcodone -acetaminop hen 7.5-325 mg per tablet 02-11 11:39: 30 Yes 1{tbl} Take 1 tablet by mouth every 6 (six) hours as needed. [facility] HYDROcodone -acetaminop hen 7.5-325 mg per tablet 02-11 11:39: 30 Yes 1{tbl} Take 1 tablet by mouth every 6 (six) hours as needed. [facility] HYDROcodone -acetaminop hen 7.5-325 mg per tablet 02-11 11:39: 30 Yes 1{tbl} Take 1 tablet by mouth every 6 (six) hours as needed. [facility] HYDROcodone -acetaminop hen 7.5-325 mg per tablet 02-11 11:39: 30 Yes 1{tbl} Take 1 tablet by mouth every 6 (six) hours as needed. [facility] -[facility] hen 7.5-325 mg per tablet 02-11 11:39: 30 Yes 1{tbl} Take 1 tablet by mouth every 6 (six) hours as needed. [facility] HYDROcodone -acetaminop hen 7.5-325 mg per tablet 02-11 11:39: 30 Yes 1{tbl} Take 1 tablet by mouth every 6 (six) hours as needed. [facility] -acetaminop hen 7.5-325 mg per tablet 02-11 11:39: 30 Yes 1{tbl} Take 1 tablet by mouth every 6 (six) hours as needed. [facility] HYDROcodone -acetaminop hen 7.5-325 mg per tablet 02-11 11:39: 30 Yes 1{tbl} Take 1 tablet by mouth every 6 (six) hours as needed. [facility] HYDROcodone -acetaminop hen 7.5-325 mg per tablet 02-11 11:39: 30 Yes 1{tbl} Take 1 tablet by mouth every 6 (six) hours as needed. [facility] HYDROcodone -acetaminop hen 7.5-325 mg per tablet 02-11 11:39: 30 Yes 1{tbl} Take 1 tablet by mouth every 6 (six) hours as needed. [facility] HYDROcodone -acetaminop hen 7.5-325 mg per tablet 02-11 11:39: 30 Yes 1{tbl} Take 1 tablet by mouth every 6 (six) hours as needed. [facility] HYDROcodone -acetaminop hen 7.5-325 mg per tablet 02-11 11:39: 30 Yes 1{tbl} Take 1 tablet by mouth every 6 (six) hours as needed. [facility] HYDROcodone -acetaminop hen 7.5-325 mg per tablet 02-11 11:39: 30 Yes 1{tbl} Take 1 tablet by mouth every 6 (six) hours as needed. [facility] HYDROcodone -acetaminop hen 7.5-325 mg per tablet 02-11 11:39: 30 Yes 1{tbl} Take 1 tablet by mouth every 6 (six) hours as needed. [facility] HYDROcodone -acetaminop hen 7.5-325 mg per tablet 02-11 11:39: 30 Yes 1{tbl} Take 1 tablet by mouth every 6 (six) hours as needed. [facility] HYDROcodone -acetaminop hen 7.5-325 mg per tablet 02-11 11:39: 30 Yes 1{tbl} Take 1 tablet by mouth every 6 (six) hours as needed. [facility] HYDROcodone -acetaminop hen 7.5-325 mg per tablet 02-11 11:39: 30 Yes 1{tbl} Take 1 tablet by mouth every 6 (six) hours as needed. [facility] HYDROcodone -acetaminop hen 7.5-325 mg per tablet 02-11 11:39: 30 Yes 1{tbl} Take 1 tablet by mouth every 6 (six) hours as needed. [facility] HYDROcodone -acetaminop hen 7.5-325 mg per tablet 02-11 11:39: 30 Yes 1{tbl} Take 1 tablet by mouth every 6 (six) hours as needed. [facility] HYDROcodone -acetaminop hen 7.5-325 mg per tablet 02-11 11:39: 30 Yes 1{tbl} Take 1 tablet by mouth every 6 (six) hours as needed. [facility] HYDROcodone -acetaminop hen 7.5-325 mg per tablet 02-11 11:39: 30 Yes 1{tbl} Take 1 tablet by mouth every 6 (six) hours as needed. [facility] HYDROcodone -acetaminop hen 7.5-325 mg per tablet 02-11 11:39: 30 Yes 1{tbl} Take 1 tablet by mouth every 6 (six) hours as needed. [facility] cetirizine 10 mg tablet 02-09 12:02: 37 Yes 10mg Take 10 mg by mouth daily. [facility] propranoloL 40 mg tablet 02-09 12:02: 37 Yes 40mg Take 40 mg by mouth 3 (three) times daily. [facility] pyridoxine, VITAMIN B-6, 25 mg tablet 02-09 12:02: 37 Yes 25mg Take 25 mg by mouth daily. [facility] acetaminoph en 650 mg CR tablet 02-09 12:02: 37 Yes 650mg Take 650 mg by mouth every 8 (eight) hours as needed for Pain. [facility] docusate 100 mg capsule 02-09 12:02: 37 Yes 100mg Take 100 mg by mouth daily. [facility] HYDROcodone -acetaminop hen 5-325 mg tablet 02-09 12:02: 37 Yes 1{tbl} Take 1 tablet by mouth every 6 (six) hours as needed. [facility] polyethylen e glycol 3350 (MIRALAX ORAL) 02-09 12:02: 37 Yes Take by mouth. [facility] furosemide 20 mg tablet 02-09 12:02: 37 Yes 20mg Take 20 mg by mouth in the morning. [facility] famotidine 40 mg tablet 02-09 12:02: 37 Yes 40mg Take 40 mg by mouth in the morning. [facility] DILTIAZEM HCL ORAL 02-09 12:02: 37 Yes 120mg Take 120 mg by mouth every 8 (eight) hours. [facility] cetirizine 10 mg tablet 02-09 12:02: 37 Yes 10mg Take 10 mg by mouth daily. [facility] propranoloL 40 mg tablet 02-09 12:02: 37 Yes 40mg Take 40 mg by mouth 3 (three) times daily. [facility] pyridoxine, VITAMIN B-6, 25 mg tablet 02-09 12:02: 37 Yes 25mg Take 25 mg by mouth daily. [facility] acetaminoph en 650 mg CR tablet 02-09 12:02: 37 Yes 650mg Take 650 mg by mouth every 8 (eight) hours as needed for Pain. [facility] docusate 100 mg capsule 02-09 12:02: 37 Yes 100mg Take 100 mg by mouth daily. [facility] HYDROcodone -acetaminop hen 5-325 mg tablet 02-09 12:02: 37 Yes 1{tbl} Take 1 tablet by mouth every 6 (six) hours as needed. [facility] polyethylen e glycol 3350 (MIRALAX ORAL) 02-09 12:02: 37 Yes Take by mouth. [facility] furosemide 20 mg tablet 02-09 12:02: 37 Yes 20mg Take 20 mg by mouth in the morning. [facility] famotidine 40 mg tablet 02-09 12:02: 37 Yes 40mg Take 40 mg by mouth in the morning. [facility] DILTIAZEM HCL ORAL 02-09 12:02: 37 Yes 120mg Take 120 mg by mouth every 8 (eight) hours. [facility] cetirizine 10 mg tablet 02-09 12:02: 37 Yes 10mg Take 10 mg by mouth daily. [facility] propranoloL 40 mg tablet 02-09 12:02: 37 Yes 40mg Take 40 mg by mouth 3 (three) times daily. [facility] pyridoxine, VITAMIN B-6, 25 mg tablet 02-09 12:02: 37 Yes 25mg Take 25 mg by mouth daily. [facility] acetaminoph en 650 mg CR tablet 02-09 12:02: 37 Yes 650mg Take 650 mg by mouth every 8 (eight) hours as needed for Pain. [facility] docusate 100 mg capsule 02-09 12:02: 37 Yes 100mg Take 100 mg by mouth daily. [facility] polyethylen e glycol 3350 (MIRALAX ORAL) 02-09 12:02: 37 Yes Take by mouth. [facility] furosemide 20 mg tablet 02-09 12:02: 37 Yes 20mg Take 20 mg by mouth in the morning. [facility] famotidine 40 mg tablet 02-09 12:02: 37 Yes 40mg Take 40 mg by mouth in the morning. [facility] DILTIAZEM HCL ORAL 02-09 12:02: 37 Yes 120mg Take 120 mg by mouth every 8 (eight) hours. [facility] cetirizine 10 mg tablet 02-09 12:02: 37 Yes 10mg Take 10 mg by mouth daily. [facility] propranoloL 40 mg tablet 02-09 12:02: 37 Yes 40mg Take 40 mg by mouth 3 (three) times daily. [facility] pyridoxine, VITAMIN B-6, 25 mg tablet 02-09 12:02: 37 Yes 25mg Take 25 mg by mouth daily. [facility] acetaminoph en 650 mg CR tablet 02-09 12:02: 37 Yes 650mg Take 650 mg by mouth every 8 (eight) hours as needed for Pain. [facility] docusate 100 mg capsule 02-09 12:02: 37 Yes 100mg Take 100 mg by mouth daily. [facility] polyethylen e glycol 3350 (MIRALAX ORAL) 02-09 12:02: 37 Yes Take by mouth. [facility] furosemide 20 mg tablet 02-09 12:02: 37 Yes 20mg Take 20 mg by mouth in the morning. [facility] famotidine 40 mg tablet 02-09 12:02: 37 Yes 40mg Take 40 mg by mouth in the morning. [facility] DILTIAZEM HCL ORAL 02-09 12:02: 37 Yes 120mg Take 120 mg by mouth every 8 (eight) hours. [facility] cetirizine 10 mg tablet 02-09 12:02: 37 Yes 10mg Take 10 mg by mouth daily. [facility] propranoloL 40 mg tablet 02-09 12:02: 37 Yes 40mg Take 40 mg by mouth 3 (three) times daily. [facility] pyridoxine, VITAMIN B-6, 25 mg tablet 02-09 12:02: 37 Yes 25mg Take 25 mg by mouth daily. [facility] docusate 100 mg capsule 02-09 12:02: 37 Yes 100mg Take 100 mg by mouth daily. [facility] polyethylen e glycol 3350 (MIRALAX ORAL) 02-09 12:02: 37 Yes Take by mouth. [facility] furosemide 20 mg tablet 02-09 12:02: 37 Yes 20mg Take 20 mg by mouth in the morning. [facility] famotidine 40 mg tablet 02-09 12:02: 37 Yes 40mg Take 40 mg by mouth in the morning. [facility] DILTIAZEM HCL ORAL 02-09 12:02: 37 Yes 120mg Take 120 mg by mouth every 8 (eight) hours. [facility] cetirizine 10 mg tablet 02-09 12:02: 37 Yes 10mg Take 10 mg by mouth daily. [facility] propranoloL 40 mg tablet 02-09 12:02: 37 Yes 40mg Take 40 mg by mouth 3 (three) times daily. [facility] pyridoxine, VITAMIN B-6, 25 mg tablet 02-09 12:02: 37 Yes 25mg Take 25 mg by mouth daily. [facility] docusate 100 mg capsule 02-09 12:02: 37 Yes 100mg Take 100 mg by mouth daily. [facility] polyethylen e glycol 3350 (MIRALAX ORAL) 02-09 12:02: 37 Yes Take by mouth. [facility] furosemide 20 mg tablet 02-09 12:02: 37 Yes 20mg Take 20 mg by mouth in the morning. [facility] famotidine 40 mg tablet 02-09 12:02: 37 Yes 40mg Take 40 mg by mouth in the morning. [facility] DILTIAZEM HCL ORAL 02-09 12:02: 37 Yes 120mg Take 120 mg by mouth every 8 (eight) hours. [facility] cetirizine 10 mg tablet 02-09 12:02: 37 Yes 10mg Take 10 mg by mouth daily. [facility] propranoloL 40 mg tablet 02-09 12:02: 37 Yes 40mg Take 40 mg by mouth 3 (three) times daily. [facility] pyridoxine, VITAMIN B-6, 25 mg tablet 02-09 12:02: 37 Yes 25mg Take 25 mg by mouth daily. [facility] docusate 100 mg capsule 02-09 12:02: 37 Yes 100mg Take 100 mg by mouth daily. [facility] polyethylen e glycol 3350 (MIRALAX ORAL) 02-09 12:02: 37 Yes Take by mouth. [facility] furosemide 20 mg tablet 02-09 12:02: 37 Yes 20mg Take 20 mg by mouth in the morning. [facility] famotidine 40 mg tablet 02-09 12:02: 37 Yes 40mg Take 40 mg by mouth in the morning. [facility] DILTIAZEM HCL ORAL 02-09 12:02: 37 Yes 120mg Take 120 mg by mouth every 8 (eight) hours. [facility] propranoloL 40 mg tablet 02-09 12:02: 37 Yes 40mg Take 40 mg by mouth 3 (three) times daily. [facility] pyridoxine, VITAMIN B-6, 25 mg tablet 02-09 12:02: 37 Yes 25mg Take 25 mg by mouth daily. [facility] docusate 100 mg capsule 02-09 12:02: 37 Yes 100mg Take 100 mg by mouth daily. [facility] polyethylen e glycol 3350 (MIRALAX ORAL) 02-09 12:02: 37 Yes Take by mouth. [facility] furosemide 20 mg tablet 02-09 12:02: 37 Yes 20mg Take 20 mg by mouth in the morning. [facility] famotidine 40 mg tablet 02-09 12:02: 37 Yes 40mg Take 40 mg by mouth in the morning. [facility] DILTIAZEM HCL ORAL 02-09 12:02: 37 Yes 120mg Take 120 mg by mouth every 8 (eight) hours. [facility] propranoloL 40 mg tablet 02-09 12:02: 37 Yes 40mg Take 40 mg by mouth 3 (three) times daily. [facility] docusate 100 mg capsule 02-09 12:02: 37 Yes 100mg Take 100 mg by mouth daily. [facility] polyethylen e glycol 3350 (MIRALAX ORAL) 02-09 12:02: 37 Yes Take by mouth. [facility] furosemide 20 mg tablet 02-09 12:02: 37 Yes 20mg Take 20 mg by mouth in the morning. [facility] famotidine 40 mg tablet 02-09 12:02: 37 Yes 40mg Take 40 mg by mouth in the morning. [facility] DILTIAZEM HCL ORAL 02-09 12:02: 37 Yes 120mg Take 120 mg by mouth every 8 (eight) hours. [facility] propranoloL 40 mg tablet 02-09 12:02: 37 Yes 40mg Take 40 mg by mouth 3 (three) times daily. [facility] docusate 100 mg capsule 02-09 12:02: 37 Yes 100mg Take 100 mg by mouth daily. [facility] polyethylen e glycol 3350 (MIRALAX ORAL) 02-09 12:02: 37 Yes Take by mouth. [facility] furosemide 20 mg tablet 02-09 12:02: 37 Yes 20mg Take 20 mg by mouth in the morning. [facility] famotidine 40 mg tablet 02-09 12:02: 37 Yes 40mg Take 40 mg by mouth in the morning. [facility] DILTIAZEM HCL ORAL 02-09 12:02: 37 Yes 120mg Take 120 mg by mouth every 8 (eight) hours. [facility] propranoloL 40 mg tablet 02-09 12:02: 37 Yes 40mg Take 40 mg by mouth 3 (three) times daily. [facility] docusate 100 mg capsule 02-09 12:02: 37 Yes 100mg Take 100 mg by mouth daily. [facility] polyethylen e glycol 3350 (MIRALAX ORAL) 02-09 12:02: 37 Yes Take by mouth. [facility] furosemide 20 mg tablet 02-09 12:02: 37 Yes 20mg Take 20 mg by mouth in the morning. [facility] famotidine 40 mg tablet 02-09 12:02: 37 Yes 40mg Take 40 mg by mouth in the morning. [facility] DILTIAZEM HCL ORAL 02-09 12:02: 37 Yes 120mg Take 120 mg by mouth every 8 (eight) hours. [facility] propranoloL 40 mg tablet 02-09 12:02: 37 Yes 40mg Take 40 mg by mouth 3 (three) times daily. [facility] docusate 100 mg capsule 02-09 12:02: 37 Yes 100mg Take 100 mg by mouth daily. [facility] polyethylen e glycol 3350 (MIRALAX ORAL) 02-09 12:02: 37 Yes Take by mouth. [facility] furosemide 20 mg tablet 02-09 12:02: 37 Yes 20mg Take 20 mg by mouth in the morning. [facility] famotidine 40 mg tablet 02-09 12:02: 37 Yes 40mg Take 40 mg by mouth in the morning. [facility] DILTIAZEM HCL ORAL 02-09 12:02: 37 Yes 120mg Take 120 mg by mouth every 8 (eight) hours. [facility] propranoloL 40 mg tablet 02-09 12:02: 37 Yes 40mg Take 40 mg by mouth 3 (three) times daily. [facility] docusate 100 mg capsule 02-09 12:02: 37 Yes 100mg Take 100 mg by mouth daily. [facility] polyethylen e glycol 3350 (MIRALAX ORAL) 02-09 12:02: 37 Yes Take by mouth. [facility] furosemide 20 mg tablet 02-09 12:02: 37 Yes 20mg Take 20 mg by mouth in the morning. [facility] famotidine 40 mg tablet 02-09 12:02: 37 Yes 40mg Take 40 mg by mouth in the morning. [facility] DILTIAZEM HCL ORAL 02-09 12:02: 37 Yes 120mg Take 120 mg by mouth every 8 (eight) hours. [facility] propranoloL 40 mg tablet 02-09 12:02: 37 Yes 40mg Take 40 mg by mouth 3 (three) times daily. [facility] docusate 100 mg capsule 02-09 12:02: 37 Yes 100mg Take 100 mg by mouth daily. [facility] polyethylen e glycol 3350 (MIRALAX ORAL) 02-09 12:02: 37 Yes Take by mouth. [facility] furosemide 20 mg tablet 02-09 12:02: 37 Yes 20mg Take 20 mg by mouth in the morning. [facility] famotidine 40 mg tablet 02-09 12:02: 37 Yes 40mg Take 40 mg by mouth in the morning. [facility] DILTIAZEM HCL ORAL 02-09 12:02: 37 Yes 120mg Take 120 mg by mouth every 8 (eight) hours. [facility] propranoloL 40 mg tablet 0 02-09 12:02: 37 Yes 40mg Take 40 mg by mouth 3 (three) times daily. [facility] docusate 100 mg capsule 02-09 12:02: 37 Yes 100mg Take 100 mg by mouth daily. [facility] polyethylen e glycol 3350 (MIRALAX ORAL) 02-09 12:02: 37 Yes Take by mouth. [facility] furosemide 20 mg tablet 02-09 12:02: 37 Yes 20mg Take 20 mg by mouth in the morning. [facility] famotidine 40 mg tablet 02-09 12:02: 37 Yes 40mg Take 40 mg by mouth in the morning. [facility] DILTIAZEM HCL ORAL 02-09 12:02: 37 Yes 120mg Take 120 mg by mouth every 8 (eight) hours. [facility] propranoloL 40 mg tablet 02-09 12:02: 37 Yes 40mg Take 40 mg by mouth 3 (three) times daily. [facility] docusate 100 mg capsule 02-09 12:02: 37 Yes 100mg Take 100 mg by mouth daily. [facility] polyethylen e glycol 3350 (MIRALAX ORAL) 02-09 12:02: 37 Yes Take by mouth. [facility] furosemide 20 mg tablet 02-09 12:02: 37 Yes 20mg Take 20 mg by mouth in the morning. [facility] famotidine 40 mg tablet 02-09 12:02: 37 Yes 40mg Take 40 mg by mouth in the morning. [facility] DILTIAZEM HCL ORAL 02-09 12:02: 37 Yes 120mg Take 120 mg by mouth every 8 (eight) hours. [facility] propranoloL 40 mg tablet 02-09 12:02: 37 Yes 40mg Take 40 mg by mouth 3 (three) times daily. [facility] docusate 100 mg capsule 02-09 12:02: 37 Yes 100mg Take 100 mg by mouth daily. [facility] polyethylen e glycol 3350 (MIRALAX ORAL) 02-09 12:02: 37 Yes Take by mouth. [facility] furosemide 20 mg tablet 02-09 12:02: 37 Yes 20mg Take 20 mg by mouth in the morning. [facility] famotidine 40 mg tablet 02-09 12:02: 37 Yes 40mg Take 40 mg by mouth in the morning. [facility] DILTIAZEM HCL ORAL 02-09 12:02: 37 Yes 120mg Take 120 mg by mouth every 8 (eight) hours. [facility] propranoloL 40 mg tablet 02-09 12:02: 37 Yes 40mg Take 40 mg by mouth 3 (three) times daily. [facility] docusate 100 mg capsule 02-09 12:02: 37 Yes 100mg Take 100 mg by mouth daily. [facility] polyethylen e glycol 3350 (MIRALAX ORAL) 02-09 12:02: 37 Yes Take by mouth. [facility] furosemide 20 mg tablet 02-09 12:02: 37 Yes 20mg Take 20 mg by mouth in the morning. [facility] famotidine 40 mg tablet 02-09 12:02: 37 Yes 40mg Take 40 mg by mouth in the morning. [facility] DILTIAZEM HCL ORAL 02-09 12:02: 37 Yes 120mg Take 120 mg by mouth every 8 (eight) hours. [facility] propranoloL 40 mg tablet 02-09 12:02: 37 Yes 40mg Take 40 mg by mouth 3 (three) times daily. [facility] docusate 100 mg capsule 02-09 12:02: 37 Yes 100mg Take 100 mg by mouth daily. [facility] polyethylen e glycol 3350 (MIRALAX ORAL) 02-09 12:02: 37 Yes Take by mouth. [facility] furosemide 20 mg tablet 0 02-09 12:02: 37 Yes 20mg Take 20 mg by mouth in the morning. [facility] famotidine 40 mg tablet 02-09 12:02: 37 Yes 40mg Take 40 mg by mouth in the morning. [facility] DILTIAZEM HCL ORAL 02-09 12:02: 37 Yes 120mg Take 120 mg by mouth every 8 (eight) hours. [facility] propranoloL 40 mg tablet 02-09 12:02: 37 Yes 40mg Take 40 mg by mouth 3 (three) times daily. [facility] docusate 100 mg capsule 02-09 12:02: 37 Yes 100mg Take 100 mg by mouth daily. [facility] polyethylen e glycol 3350 (MIRALAX ORAL) 02-09 12:02: 37 Yes Take by mouth. [facility] furosemide 20 mg tablet 02-09 12:02: 37 Yes 20mg Take 20 mg by mouth in the morning. [facility] famotidine 40 mg tablet 02-09 12:02: 37 Yes 40mg Take 40 mg by mouth in the morning. [facility] DILTIAZEM HCL ORAL 02-09 12:02: 37 Yes 120mg Take 120 mg by mouth every 8 (eight) hours. [facility] propranoloL 40 mg tablet 02-09 12:02: 37 Yes 40mg Take 40 mg by mouth 3 (three) times daily. [facility] docusate 100 mg capsule 02-09 12:02: 37 Yes 100mg Take 100 mg by mouth daily. [facility] polyethylen e glycol 3350 (MIRALAX ORAL) 02-09 12:02: 37 Yes Take by mouth. [facility] furosemide 20 mg tablet 02-09 12:02: 37 Yes 20mg Take 20 mg by mouth in the morning. [facility] famotidine 40 mg tablet 02-09 12:02: 37 Yes 40mg Take 40 mg by mouth in the morning. [facility] DILTIAZEM HCL ORAL 02-09 12:02: 37 Yes 120mg Take 120 mg by mouth every 8 (eight) hours. [facility] propranoloL 40 mg tablet 02-09 12:02: 37 Yes 40mg Take 40 mg by mouth 3 (three) times daily. [facility] docusate 100 mg capsule 02-09 12:02: 37 Yes 100mg Take 100 mg by mouth daily. [facility] polyethylen e glycol 3350 (MIRALAX ORAL) 02-09 12:02: 37 Yes Take by mouth. [facility] furosemide 20 mg tablet 02-09 12:02: 37 Yes 20mg Take 20 mg by mouth in the morning. [facility] famotidine 40 mg tablet 02-09 12:02: 37 Yes 40mg Take 40 mg by mouth in the morning. [facility] DILTIAZEM HCL ORAL 02-09 12:02: 37 Yes 120mg Take 120 mg by mouth every 8 (eight) hours. [facility] propranoloL 40 mg tablet 02-09 12:02: 37 Yes 40mg Take 40 mg by mouth 3 (three) times daily. [facility] docusate 100 mg capsule 02-09 12:02: 37 Yes 100mg Take 100 mg by mouth daily. [facility] polyethylen e glycol 3350 (MIRALAX ORAL) 02-09 12:02: 37 Yes Take by mouth. [facility] furosemide 20 mg tablet 02-09 12:02: 37 Yes 20mg Take 20 mg by mouth in the morning. [facility] famotidine 40 mg tablet 02-09 12:02: 37 Yes 40mg Take 40 mg by mouth in the morning. [facility] DILTIAZEM HCL ORAL 02-09 12:02: 37 Yes 120mg Take 120 mg by mouth every 8 (eight) hours. [facility] propranoloL 40 mg tablet 02-09 12:02: 37 Yes 40mg Take 40 mg by mouth 3 (three) times daily. [facility] docusate 100 mg capsule 02-09 12:02: 37 Yes 100mg Take 100 mg by mouth daily. [facility] polyethylen e glycol 3350 (MIRALAX ORAL) 02-09 12:02: 37 Yes Take by mouth. [facility] furosemide 20 mg tablet 02-09 12:02: 37 Yes 20mg Take 20 mg by mouth in the morning. [facility] famotidine 40 mg tablet 02-09 12:02: 37 Yes 40mg Take 40 mg by mouth in the morning. [facility] DILTIAZEM HCL ORAL 02-09 12:02: 37 Yes 120mg Take 120 mg by mouth every 8 (eight) hours. [facility] propranoloL 40 mg tablet 02-09 12:02: 37 Yes 40mg Take 40 mg by mouth 3 (three) times daily. [facility] docusate 100 mg capsule 02-09 12:02: 37 Yes 100mg Take 100 mg by mouth daily. [facility] polyethylen e glycol 3350 (MIRALAX ORAL) 02-09 12:02: 37 Yes Take by mouth. [facility] furosemide 20 mg tablet 02-09 12:02: 37 Yes 20mg Take 20 mg by mouth in the morning. [facility] famotidine 40 mg tablet 02-09 12:02: 37 Yes 40mg Take 40 mg by mouth in the morning. [facility] DILTIAZEM HCL ORAL 02-09 12:02: 37 Yes 120mg Take 120 mg by mouth every 8 (eight) hours. [facility] propranoloL 40 mg tablet 02-09 12:02: 37 Yes 40mg Take 40 mg by mouth 3 (three) times daily. [facility] docusate 100 mg capsule 02-09 12:02: 37 Yes 100mg Take 100 mg by mouth daily. [facility] polyethylen e glycol 3350 (MIRALAX ORAL) 02-09 12:02: 37 Yes Take by mouth. [facility] furosemide 20 mg tablet 02-09 12:02: 37 Yes 20mg Take 20 mg by mouth in the morning. [facility] famotidine 40 mg tablet 02-09 12:02: 37 Yes 40mg Take 40 mg by mouth in the morning. [facility] DILTIAZEM HCL ORAL 02-09 12:02: 37 Yes 120mg Take 120 mg by mouth every 8 (eight) hours. [facility] propranoloL 40 mg tablet 02-09 12:02: 37 Yes 40mg Take 40 mg by mouth 3 (three) times daily. [facility] docusate 100 mg capsule 02-09 12:02: 37 Yes 100mg Take 100 mg by mouth daily. [facility] polyethylen e glycol 3350 (MIRALAX ORAL) 02-09 12:02: 37 Yes Take by mouth. [facility] furosemide 20 mg tablet 02-09 12:02: 37 Yes 20mg Take 20 mg by mouth in the morning. [facility] famotidine 40 mg tablet 02-09 12:02: 37 Yes 40mg Take 40 mg by mouth in the morning. [facility] DILTIAZEM HCL ORAL 02-09 12:02: 37 Yes 120mg Take 120 mg by mouth every 8 (eight) hours. [facility] propranoloL 40 mg tablet 02-09 12:02: 37 Yes 40mg Take 40 mg by mouth 3 (three) times daily. [facility] docusate 100 mg capsule 02-09 12:02: 37 Yes 100mg Take 100 mg by mouth daily. [facility] polyethylen e glycol 3350 (MIRALAX ORAL) 02-09 12:02: 37 Yes Take by mouth. [facility] furosemide 20 mg tablet 02-09 12:02: 37 Yes 20mg Take 20 mg by mouth in the morning. [facility] famotidine 40 mg tablet 02-09 12:02: 37 Yes 40mg Take 40 mg by mouth in the morning. [facility] DILTIAZEM HCL ORAL 02-09 12:02: 37 Yes 120mg Take 120 mg by mouth every 8 (eight) hours. [facility] propranoloL 40 mg tablet 02-09 12:02: 37 Yes 40mg Take 40 mg by mouth 3 (three) times daily. [facility] docusate 100 mg capsule 02-09 12:02: 37 Yes 100mg Take 100 mg by mouth daily. [facility] polyethylen e glycol 3350 (MIRALAX ORAL) 02-09 12:02: 37 Yes Take by mouth. [facility] furosemide 20 mg tablet 02-09 12:02: 37 Yes 20mg Take 20 mg by mouth in the morning. [facility] famotidine 40 mg tablet 02-09 12:02: 37 Yes 40mg Take 40 mg by mouth in the morning. [facility] DILTIAZEM HCL ORAL 02-09 12:02: 37 Yes 120mg Take 120 mg by mouth every 8 (eight) hours. [facility] propranoloL 40 mg tablet 02-09 12:02: 37 Yes 40mg Take 40 mg by mouth 3 (three) times daily. [facility] docusate 100 mg capsule 02-09 12:02: 37 Yes 100mg Take 100 mg by mouth daily. [facility] polyethylen e glycol 3350 (MIRALAX ORAL) 02-09 12:02: 37 Yes Take by mouth. [facility] furosemide 20 mg tablet 02-09 12:02: 37 Yes 20mg Take 20 mg by mouth in the morning. [facility] famotidine 40 mg tablet 02-09 12:02: 37 Yes 40mg Take 40 mg by mouth in the morning. [facility] DILTIAZEM HCL ORAL 02-09 12:02: 37 Yes 120mg Take 120 mg by mouth every 8 (eight) hours. [facility] propranoloL 40 mg tablet 02-09 12:02: 37 Yes 40mg Take 40 mg by mouth 3 (three) times daily. [facility] docusate 100 mg capsule 02-09 12:02: 37 Yes 100mg Take 100 mg by mouth daily. [facility] polyethylen e glycol 3350 (MIRALAX ORAL) 02-09 12:02: 37 Yes Take by mouth. [facility] furosemide 20 mg tablet 02-09 12:02: 37 Yes 20mg Take 20 mg by mouth in the morning. [facility] famotidine 40 mg tablet 02-09 12:02: 37 Yes 40mg Take 40 mg by mouth in the morning. [facility] DILTIAZEM HCL ORAL 02-09 12:02: 37 Yes 120mg Take 120 mg by mouth every 8 (eight) hours. [facility] propranoloL 40 mg tablet 02-09 12:02: 37 Yes 40mg Take 40 mg by mouth 3 (three) times daily. [facility] docusate 100 mg capsule 02-09 12:02: 37 Yes 100mg Take 100 mg by mouth daily. [facility] polyethylen e glycol 3350 (MIRALAX ORAL) 02-09 12:02: 37 Yes Take by mouth. [facility] furosemide 20 mg tablet 02-09 12:02: 37 Yes 20mg Take 20 mg by mouth in the morning. [facility] famotidine 40 mg tablet 02-09 12:02: 37 Yes 40mg Take 40 mg by mouth in the morning. [facility] DILTIAZEM HCL ORAL 02-09 12:02: 37 Yes 120mg Take 120 mg by mouth every 8 (eight) hours. [facility] propranoloL 40 mg tablet 0 02-09 12:02: 37 Yes 40mg Take 40 mg by mouth 3 (three) times daily. [facility] docusate 100 mg capsule 02-09 12:02: 37 Yes 100mg Take 100 mg by mouth daily. [facility] polyethylen e glycol 3350 (MIRALAX ORAL) 02-09 12:02: 37 Yes Take by mouth. [facility] furosemide 20 mg tablet 02-09 12:02: 37 Yes 20mg Take 20 mg by mouth in the morning. [facility] famotidine 40 mg tablet 02-09 12:02: 37 Yes 40mg Take 40 mg by mouth in the morning. [facility] DILTIAZEM HCL ORAL 02-09 12:02: 37 Yes 120mg Take 120 mg by mouth every 8 (eight) hours. [facility] propranoloL 40 mg tablet 02-09 12:02: 37 Yes 40mg Take 40 mg by mouth 3 (three) times daily. [facility] docusate 100 mg capsule 02-09 12:02: 37 Yes 100mg Take 100 mg by mouth daily. [facility] polyethylen e glycol 3350 (MIRALAX ORAL) 02-09 12:02: 37 Yes Take by mouth. [facility] furosemide 20 mg tablet 02-09 12:02: 37 Yes 20mg Take 20 mg by mouth in the morning. [facility] famotidine 40 mg tablet 02-09 12:02: 37 Yes 40mg Take 40 mg by mouth in the morning. [facility] DILTIAZEM HCL ORAL 02-09 12:02: 37 Yes 120mg Take 120 mg by mouth every 8 (eight) hours. [facility] propranoloL 40 mg tablet 02-09 12:02: 37 Yes 40mg Take 40 mg by mouth 3 (three) times daily. [facility] docusate 100 mg capsule 02-09 12:02: 37 Yes 100mg Take 100 mg by mouth daily. [facility] polyethylen e glycol 3350 (MIRALAX ORAL) 02-09 12:02: 37 Yes Take by mouth. [facility] furosemide 20 mg tablet 02-09 12:02: 37 Yes 20mg Take 20 mg by mouth in the morning. [facility] famotidine 40 mg tablet 02-09 12:02: 37 Yes 40mg Take 40 mg by mouth in the morning. [facility] DILTIAZEM HCL ORAL 02-09 12:02: 37 Yes 120mg Take 120 mg by mouth every 8 (eight) hours. [facility] propranoloL 40 mg tablet 02-09 12:02: 37 Yes 40mg Take 40 mg by mouth 3 (three) times daily. [facility] docusate 100 mg capsule 02-09 12:02: 37 Yes 100mg Take 100 mg by mouth daily. [facility] polyethylen e glycol 3350 (MIRALAX ORAL) 02-09 12:02: 37 Yes Take by mouth. [facility] furosemide 20 mg tablet 02-09 12:02: 37 Yes 20mg Take 20 mg by mouth in the morning. [facility] famotidine 40 mg tablet 02-09 12:02: 37 Yes 40mg Take 40 mg by mouth in the morning. [facility] DILTIAZEM HCL ORAL 02-09 12:02: 37 Yes 120mg Take 120 mg by mouth every 8 (eight) hours. [facility] propranoloL 40 mg tablet 02-09 12:02: 37 Yes 40mg Take 40 mg by mouth 3 (three) times daily. [facility] docusate 100 mg capsule 02-09 12:02: 37 Yes 100mg Take 100 mg by mouth daily. [facility] polyethylen e glycol 3350 (MIRALAX ORAL) 02-09 12:02: 37 Yes Take by mouth. [facility] furosemide 20 mg tablet 02-09 12:02: 37 Yes 20mg Take 20 mg by mouth in the morning. [facility] famotidine 40 mg tablet 02-09 12:02: 37 Yes 40mg Take 40 mg by mouth in the morning. [facility] DILTIAZEM HCL ORAL 02-09 12:02: 37 Yes 120mg Take 120 mg by mouth every 8 (eight) hours. [facility] propranoloL 40 mg tablet 02-09 12:02: 37 Yes 40mg Take 40 mg by mouth 3 (three) times daily. [facility] docusate 100 mg capsule 02-09 12:02: 37 Yes 100mg Take 100 mg by mouth daily. [facility] polyethylen e glycol 3350 (MIRALAX ORAL) 02-09 12:02: 37 Yes Take by mouth. [facility] furosemide 20 mg tablet 02-09 12:02: 37 Yes 20mg Take 20 mg by mouth in the morning. [facility] famotidine 40 mg tablet 02-09 12:02: 37 Yes 40mg Take 40 mg by mouth in the morning. [facility] DILTIAZEM HCL ORAL 02-09 12:02: 37 Yes 120mg Take 120 mg by mouth every 8 (eight) hours. [facility] propranoloL 40 mg tablet 02-09 12:02: 37 Yes 40mg Take 40 mg by mouth 3 (three) times daily. [facility] docusate 100 mg capsule 02-09 12:02: 37 Yes 100mg Take 100 mg by mouth daily. [facility] polyethylen e glycol 3350 (MIRALAX ORAL) 02-09 12:02: 37 Yes Take by mouth. [facility] furosemide 20 mg tablet 02-09 12:02: 37 Yes 20mg Take 20 mg by mouth in the morning. [facility] famotidine 40 mg tablet 02-09 12:02: 37 Yes 40mg Take 40 mg by mouth in the morning. [facility] DILTIAZEM HCL ORAL 02-09 12:02: 37 Yes 120mg Take 120 mg by mouth every 8 (eight) hours. [facility] propranoloL 40 mg tablet 02-09 12:02: 37 Yes 40mg Take 40 mg by mouth 3 (three) times daily. [facility] docusate 100 mg capsule 02-09 12:02: 37 Yes 100mg Take 100 mg by mouth daily. [facility] polyethylen e glycol 3350 (MIRALAX ORAL) 02-09 12:02: 37 Yes Take by mouth. [facility] propranoloL 40 mg tablet 02-09 12:02: 37 Yes 40mg Take 40 mg by mouth 3 (three) times daily. [facility] docusate 100 mg capsule 02-09 12:02: 37 Yes 100mg Take 100 mg by mouth daily. [facility] polyethylen e glycol 3350 (MIRALAX ORAL) 02-09 12:02: 37 Yes Take by mouth. [facility] docusate 100 mg capsule 02-09 12:02: 37 Yes 100mg Take 100 mg by mouth daily. [facility] polyethylen e glycol 3350 (MIRALAX ORAL) 02-09 12:02: 37 Yes Take by mouth. [facility] furosemide 20 mg tablet 02-09 12:02: 37 Yes 20mg Take 20 mg by mouth in the morning. [facility] famotidine 40 mg tablet 02-09 12:02: 37 Yes 40mg Take 40 mg by mouth in the morning. [facility] DILTIAZEM HCL ORAL 02-09 12:02: 37 Yes 120mg Take 120 mg by mouth every 8 (eight) hours. [facility] docusate 100 mg capsule 02-09 12:02: 37 Yes 100mg Take 100 mg by mouth daily. [facility] polyethylen e glycol 3350 (MIRALAX ORAL) 02-09 12:02: 37 Yes Take by mouth. [facility] furosemide 20 mg tablet 02-09 12:02: 37 Yes 20mg Take 20 mg by mouth in the morning. [facility] famotidine 40 mg tablet 02-09 12:02: 37 Yes 40mg Take 40 mg by mouth in the morning. [facility] DILTIAZEM HCL ORAL 02-09 12:02: 37 Yes 120mg Take 120 mg by mouth every 8 (eight) hours. [facility] docusate 100 mg capsule 02-09 12:02: 37 Yes 100mg Take 100 mg by mouth daily. [facility] polyethylen e glycol 3350 (MIRALAX ORAL) 02-09 12:02: 37 Yes Take by mouth. [facility] furosemide 20 mg tablet 02-09 12:02: 37 Yes 20mg Take 20 mg by mouth in the morning. [facility] famotidine 40 mg tablet 02-09 12:02: 37 Yes 40mg Take 40 mg by mouth in the morning. [facility] DILTIAZEM HCL ORAL 02-09 12:02: 37 Yes 120mg Take 120 mg by mouth every 8 (eight) hours. [facility] docusate 100 mg capsule 02-09 12:02: 37 Yes 100mg Take 100 mg by mouth daily. [facility] polyethylen e glycol 3350 (MIRALAX ORAL) 02-09 12:02: 37 Yes Take by mouth. [facility] furosemide 20 mg tablet 02-09 12:02: 37 Yes 20mg Take 20 mg by mouth in the morning. [facility] famotidine 40 mg tablet 02-09 12:02: 37 Yes 40mg Take 40 mg by mouth in the morning. [facility] DILTIAZEM HCL ORAL 02-09 12:02: 37 Yes 120mg Take 120 mg by mouth every 8 (eight) hours. [facility] docusate 100 mg capsule 02-09 12:02: 37 Yes 100mg Take 100 mg by mouth daily. [facility] polyethylen e glycol 3350 (MIRALAX ORAL) 02-09 12:02: 37 Yes Take by mouth. [facility] furosemide 20 mg tablet 02-09 12:02: 37 Yes 20mg Take 20 mg by mouth in the morning. [facility] famotidine 40 mg tablet 02-09 12:02: 37 Yes 40mg Take 40 mg by mouth in the morning. [facility] DILTIAZEM HCL ORAL 02-09 12:02: 37 Yes 120mg Take 120 mg by mouth every 8 (eight) hours. [facility] docusate 100 mg capsule 02-09 12:02: 37 Yes 100mg Take 100 mg by mouth daily. [facility] polyethylen e glycol 3350 (MIRALAX ORAL) 02-09 12:02: 37 Yes Take by mouth. [facility] furosemide 20 mg tablet 02-09 12:02: 37 Yes 20mg Take 20 mg by mouth in the morning. [facility] famotidine 40 mg tablet 02-09 12:02: 37 Yes 40mg Take 40 mg by mouth in the morning. [facility] DILTIAZEM HCL ORAL 02-09 12:02: 37 Yes 120mg Take 120 mg by mouth every 8 (eight) hours. [facility] docusate 100 mg capsule 02-09 12:02: 37 Yes 100mg Take 100 mg by mouth daily. [facility] polyethylen e glycol 3350 (MIRALAX ORAL) 02-09 12:02: 37 Yes Take by mouth. [facility] furosemide 20 mg tablet 02-09 12:02: 37 Yes 20mg Take 20 mg by mouth in the morning. [facility] famotidine 40 mg tablet 02-09 12:02: 37 Yes 40mg Take 40 mg by mouth in the morning. [facility] DILTIAZEM HCL ORAL 02-09 12:02: 37 Yes 120mg Take 120 mg by mouth every 8 (eight) hours. [facility] docusate 100 mg capsule 0 02-09 12:02: 37 Yes 100mg Take 100 mg by mouth daily. [facility] polyethylen e glycol 3350 (MIRALAX ORAL) 02-09 12:02: 37 Yes Take by mouth. [facility] furosemide 20 mg tablet 02-09 12:02: 37 Yes 20mg Take 20 mg by mouth in the morning. [facility] 02-09 12:02: 37 Yes 40mg Take 40 mg by mouth in the morning. [facility] DILTIAZEM HCL ORAL 02-09 12:02: 37 Yes 120mg Take 120 mg by mouth every 8 (eight) hours. [facility] docusate 100 mg capsule 02-09 12:02: 37 Yes 100mg Take 100 mg by mouth daily. [facility] polyethylen e glycol 3350 (MIRALAX ORAL) 02-09 12:02: 37 Yes Take by mouth. [facility] furosemide 20 mg tablet 02-09 12:02: 37 Yes 20mg Take 20 mg by mouth in the morning. [facility] famotidine 40 mg tablet 02-09 12:02: 37 Yes 40mg Take 40 mg by mouth in the morning. [facility] DILTIAZEM HCL ORAL 02-09 12:02: 37 Yes 120mg Take 120 mg by mouth every 8 (eight) hours. [facility] docusate 100 mg capsule 02-09 12:02: 37 Yes 100mg Take 100 mg by mouth daily. [facility] polyethylen e glycol 3350 (MIRALAX ORAL) 02-09 12:02: 37 Yes Take by mouth. [facility] furosemide 20 mg tablet 0 02-09 12:02: 37 Yes 20mg Take 20 mg by mouth in the morning. [facility] famotidine 40 mg tablet 02-09 12:02: 37 Yes 40mg Take 40 mg by mouth in the morning. [facility] DILTIAZEM HCL ORAL 02-09 12:02: 37 Yes 120mg Take 120 mg by mouth every 8 (eight) hours. [facility] docusate 100 mg capsule 02-09 12:02: 37 Yes 100mg Take 100 mg by mouth daily. [facility] polyethylen e glycol 3350 (MIRALAX ORAL) 02-09 12:02: 37 Yes Take by mouth. [facility] furosemide 20 mg tablet 02-09 12:02: 37 Yes 20mg Take 20 mg by mouth in the morning. [facility] famotidine 40 mg tablet 02-09 12:02: 37 Yes 40mg Take 40 mg by mouth in the morning. [facility] DILTIAZEM HCL ORAL 02-09 12:02: 37 Yes 120mg Take 120 mg by mouth every 8 (eight) hours. [facility] docusate 100 mg capsule 02-09 12:02: 37 Yes 100mg Take 100 mg by mouth daily. [facility] polyethylen e glycol 3350 (MIRALAX ORAL) 02-09 12:02: 37 Yes Take by mouth. [facility] furosemide 20 mg tablet 02-09 12:02: 37 Yes 20mg Take 20 mg by mouth in the morning. [facility] famotidine 40 mg tablet 02-09 12:02: 37 Yes 40mg Take 40 mg by mouth in the morning. [facility] DILTIAZEM HCL ORAL 02-09 12:02: 37 Yes 120mg Take 120 mg by mouth every 8 (eight) hours. [facility] docusate 100 mg capsule 02-09 12:02: 37 Yes 100mg Take 100 mg by mouth daily. [facility] polyethylen e glycol 3350 (MIRALAX ORAL) 02-09 12:02: 37 Yes Take by mouth. [facility] furosemide 20 mg tablet 02-09 12:02: 37 Yes 20mg Take 20 mg by mouth in the morning. [facility] famotidine 40 mg tablet 02-09 12:02: 37 Yes 40mg Take 40 mg by mouth in the morning. [facility] DILTIAZEM HCL ORAL 02-09 12:02: 37 Yes 120mg Take 120 mg by mouth every 8 (eight) hours. [facility] docusate 100 mg capsule 02-09 12:02: 37 Yes 100mg Take 100 mg by mouth daily. [facility] polyethylen e glycol 3350 (MIRALAX ORAL) 02-09 12:02: 37 Yes Take by mouth. [facility] furosemide 20 mg tablet 02-09 12:02: 37 Yes 20mg Take 20 mg by mouth in the morning. [facility] famotidine 40 mg tablet 02-09 12:02: 37 Yes 40mg Take 40 mg by mouth in the morning. [facility] DILTIAZEM HCL ORAL 02-09 12:02: 37 Yes 120mg Take 120 mg by mouth every 8 (eight) hours. [facility] docusate 100 mg capsule 02-09 12:02: 37 Yes 100mg Take 100 mg by mouth daily. [facility] polyethylen e glycol 3350 (MIRALAX ORAL) 02-09 12:02: 37 Yes Take by mouth. [facility] furosemide 20 mg tablet 02-09 12:02: 37 Yes 20mg Take 20 mg by mouth in the morning. [facility] famotidine 40 mg tablet 0 02-09 12:02: 37 Yes 40mg Take 40 mg by mouth in the morning. [facility] DILTIAZEM HCL ORAL 0 02-09 12:02: 37 Yes 120mg Take 120 mg by mouth every 8 (eight) hours. [facility] docusate 100 mg capsule 02-09 12:02: 37 Yes 100mg Take 100 mg by mouth daily. [facility] polyethylen e glycol 3350 (MIRALAX ORAL) 02-09 12:02: 37 Yes Take by mouth. [facility] furosemide 20 mg tablet 02-09 12:02: 37 Yes 20mg Take 20 mg by mouth in the morning. [facility] famotidine 40 mg tablet 02-09 12:02: 37 Yes 40mg Take 40 mg by mouth in the morning. [facility] DILTIAZEM HCL ORAL 02-09 12:02: 37 Yes 120mg Take 120 mg by mouth every 8 (eight) hours. [facility] docusate 100 mg capsule 02-09 12:02: 37 Yes 100mg Take 100 mg by mouth daily. [facility] polyethylen e glycol 3350 (MIRALAX ORAL) 02-09 12:02: 37 Yes Take by mouth. [facility] furosemide 20 mg tablet 02-09 12:02: 37 Yes 20mg Take 20 mg by mouth in the morning. [facility] famotidine 40 mg tablet 02-09 12:02: 37 Yes 40mg Take 40 mg by mouth in the morning. [facility] DILTIAZEM HCL ORAL 02-09 12:02: 37 Yes 120mg Take 120 mg by mouth every 8 (eight) hours. [facility] docusate 100 mg capsule 02-09 12:02: 37 Yes 100mg Take 100 mg by mouth daily. [facility] polyethylen e glycol 3350 (MIRALAX ORAL) 02-09 12:02: 37 Yes Take by mouth. [facility] furosemide 20 mg tablet 02-09 12:02: 37 Yes 20mg Take 20 mg by mouth in the morning. [facility] famotidine 40 mg tablet 02-09 12:02: 37 Yes 40mg Take 40 mg by mouth in the morning. [facility] DILTIAZEM HCL ORAL 02-09 12:02: 37 Yes 120mg Take 120 mg by mouth every 8 (eight) hours. [facility] docusate 100 mg capsule 02-09 12:02: 37 Yes 100mg Take 100 mg by mouth daily. [facility] polyethylen e glycol 3350 (MIRALAX ORAL) 02-09 12:02: 37 Yes Take by mouth. [facility] furosemide 20 mg tablet 02-09 12:02: 37 Yes 20mg Take 20 mg by mouth in the morning. [facility] famotidine 40 mg tablet 02-09 12:02: 37 Yes 40mg Take 40 mg by mouth in the morning. [facility] DILTIAZEM HCL ORAL 02-09 12:02: 37 Yes 120mg Take 120 mg by mouth every 8 (eight) hours. [facility] docusate 100 mg capsule 02-09 12:02: 37 Yes 100mg Take 100 mg by mouth daily. [facility] polyethylen e glycol 3350 (MIRALAX ORAL) 02-09 12:02: 37 Yes Take by mouth. [facility] furosemide 20 mg tablet 02-09 12:02: 37 Yes 20mg Take 20 mg by mouth in the morning. [facility] famotidine 40 mg tablet 02-09 12:02: 37 Yes 40mg Take 40 mg by mouth in the morning. [facility] DILTIAZEM HCL ORAL 02-09 12:02: 37 Yes 120mg Take 120 mg by mouth every 8 (eight) hours. [facility] docusate 100 mg capsule 02-09 12:02: 37 Yes 100mg Take 100 mg by mouth daily. [facility] polyethylen e glycol 3350 (MIRALAX ORAL) 02-09 12:02: 37 Yes Take by mouth. [facility] furosemide 20 mg tablet 02-09 12:02: 37 Yes 20mg Take 20 mg by mouth in the morning. [facility] famotidine 40 mg tablet 02-09 12:02: 37 Yes 40mg Take 40 mg by mouth in the morning. [facility] DILTIAZEM HCL ORAL 02-09 12:02: 37 Yes 120mg Take 120 mg by mouth every 8 (eight) hours. [facility] docusate 100 mg capsule 02-09 12:02: 37 Yes 100mg Take 100 mg by mouth daily. [facility] polyethylen e glycol 3350 (MIRALAX ORAL) 02-09 12:02: 37 Yes Take by mouth. [facility] furosemide 20 mg tablet 02-09 12:02: 37 Yes 20mg Take 20 mg by mouth in the morning. [facility] famotidine 40 mg tablet 02-09 12:02: 37 Yes 40mg Take 40 mg by mouth in the morning. [facility] DILTIAZEM HCL ORAL 02-09 12:02: 37 Yes 120mg Take 120 mg by mouth every 8 (eight) hours. [facility] docusate 100 mg capsule 02-09 12:02: 37 Yes 100mg Take 100 mg by mouth daily. [facility] polyethylen e glycol 3350 (MIRALAX ORAL) 02-09 12:02: 37 Yes Take by mouth. [facility] furosemide 20 mg tablet 02-09 12:02: 37 Yes 20mg Take 20 mg by mouth in the morning. [facility] famotidine 40 mg tablet 02-09 12:02: 37 Yes 40mg Take 40 mg by mouth in the morning. [facility] DILTIAZEM HCL ORAL 02-09 12:02: 37 Yes 120mg Take 120 mg by mouth every 8 (eight) hours. [facility] docusate 100 mg capsule 02-09 12:02: 37 Yes 100mg Take 100 mg by mouth daily. [facility] polyethylen e glycol 3350 (MIRALAX ORAL) 02-09 12:02: 37 Yes Take by mouth. [facility] furosemide 20 mg tablet 02-09 12:02: 37 Yes 20mg Take 20 mg by mouth in the morning. [facility] famotidine 40 mg tablet 02-09 12:02: 37 Yes 40mg Take 40 mg by mouth in the morning. [facility] DILTIAZEM HCL ORAL 02-09 12:02: 37 Yes 120mg Take 120 mg by mouth every 8 (eight) hours. [facility] docusate 100 mg capsule 02-09 12:02: 37 Yes 100mg Take 100 mg by mouth daily. [facility] polyethylen e glycol 3350 (MIRALAX ORAL) 02-09 12:02: 37 Yes Take by mouth. [facility] furosemide 20 mg tablet 02-09 12:02: 37 Yes 20mg Take 20 mg by mouth in the morning. [facility] famotidine 40 mg tablet 02-09 12:02: 37 Yes 40mg Take 40 mg by mouth in the morning. [facility] DILTIAZEM HCL ORAL 02-09 12:02: 37 Yes 120mg Take 120 mg by mouth every 8 (eight) hours. [facility] docusate 100 mg capsule 02-09 12:02: 37 Yes 100mg Take 100 mg by mouth daily. [facility] polyethylen e glycol 3350 (MIRALAX ORAL) 02-09 12:02: 37 Yes Take by mouth. [facility] furosemide 20 mg tablet 02-09 12:02: 37 Yes 20mg Take 20 mg by mouth in the morning. [facility] famotidine 40 mg tablet 02-09 12:02: 37 Yes 40mg Take 40 mg by mouth in the morning. [facility] DILTIAZEM HCL ORAL 02-09 12:02: 37 Yes 120mg Take 120 mg by mouth every 8 (eight) hours. [facility] docusate 100 mg capsule 02-09 12:02: 37 Yes 100mg Take 100 mg by mouth daily. [facility] polyethylen e glycol 3350 (MIRALAX ORAL) 02-09 12:02: 37 Yes Take by mouth. [facility] furosemide 20 mg tablet 02-09 12:02: 37 Yes 20mg Take 20 mg by mouth in the morning. [facility] famotidine 40 mg tablet 02-09 12:02: 37 Yes 40mg Take 40 mg by mouth in the morning. [facility] DILTIAZEM HCL ORAL 02-09 12:02: 37 Yes 120mg Take 120 mg by mouth every 8 (eight) hours. [facility] docusate 100 mg capsule 02-09 12:02: 37 Yes 100mg Take 100 mg by mouth daily. [facility] polyethylen e glycol 3350 (MIRALAX ORAL) 02-09 12:02: 37 Yes Take by mouth. [facility] furosemide 20 mg tablet 02-09 12:02: 37 Yes 20mg Take 20 mg by mouth in the morning. [facility] famotidine 40 mg tablet 02-09 12:02: 37 Yes 40mg Take 40 mg by mouth in the morning. [facility] DILTIAZEM HCL ORAL 02-09 12:02: 37 Yes 120mg Take 120 mg by mouth every 8 (eight) hours. [facility] docusate 100 mg capsule 02-09 12:02: 37 Yes 100mg Take 100 mg by mouth daily. [facility] polyethylen e glycol 3350 (MIRALAX ORAL) 02-09 12:02: 37 Yes Take by mouth. [facility] furosemide 20 mg tablet 02-09 12:02: 37 Yes 20mg Take 20 mg by mouth in the morning. [facility] famotidine 40 mg tablet 02-09 12:02: 37 Yes 40mg Take 40 mg by mouth in the morning. [facility] DILTIAZEM HCL ORAL 02-09 12:02: 37 Yes 120mg Take 120 mg by mouth every 8 (eight) hours. [facility] docusate 100 mg capsule 02-09 12:02: 37 Yes 100mg Take 100 mg by mouth daily. [facility] polyethylen e glycol 3350 (MIRALAX ORAL) 02-09 12:02: 37 Yes Take by mouth. [facility] furosemide 20 mg tablet 02-09 12:02: 37 Yes 20mg Take 20 mg by mouth in the morning. [facility] famotidine 40 mg tablet 02-09 12:02: 37 Yes 40mg Take 40 mg by mouth in the morning. [facility] DILTIAZEM HCL ORAL 02-09 12:02: 37 Yes 120mg Take 120 mg by mouth every 8 (eight) hours. [facility] docusate 100 mg capsule 02-09 12:02: 37 Yes 100mg Take 100 mg by mouth daily. [facility] polyethylen e glycol 3350 (MIRALAX ORAL) 02-09 12:02: 37 Yes Take by mouth. [facility] furosemide 20 mg tablet 02-09 12:02: 37 Yes 20mg Take 20 mg by mouth in the morning. [facility] famotidine 40 mg tablet 02-09 12:02: 37 Yes 40mg Take 40 mg by mouth in the morning. [facility] DILTIAZEM HCL ORAL 02-09 12:02: 37 Yes 120mg Take 120 mg by mouth every 8 (eight) hours. [facility] docusate 100 mg capsule 02-09 12:02: 37 Yes 100mg Take 100 mg by mouth daily. [facility] polyethylen e glycol 3350 (MIRALAX ORAL) 02-09 12:02: 37 Yes Take by mouth. [facility] furosemide 20 mg tablet 02-09 12:02: 37 Yes 20mg Take 20 mg by mouth in the morning. [facility] famotidine 40 mg tablet 02-09 12:02: 37 Yes 40mg Take 40 mg by mouth in the morning. [facility] DILTIAZEM HCL ORAL 02-09 12:02: 37 Yes 120mg Take 120 mg by mouth every 8 (eight) hours. [facility] docusate 100 mg capsule 02-09 12:02: 37 Yes 100mg Take 100 mg by mouth daily. [facility] polyethylen e glycol 3350 (MIRALAX ORAL) 02-09 12:02: 37 Yes Take by mouth. [facility] furosemide 20 mg tablet 02-09 12:02: 37 Yes 20mg Take 20 mg by mouth in the morning. [facility] famotidine 40 mg tablet 02-09 12:02: 37 Yes 40mg Take 40 mg by mouth in the morning. [facility] DILTIAZEM HCL ORAL 02-09 12:02: 37 Yes 120mg Take 120 mg by mouth every 8 (eight) hours. [facility] docusate 100 mg capsule 02-09 12:02: 37 Yes 100mg Take 100 mg by mouth daily. [facility] polyethylen e glycol 3350 (MIRALAX ORAL) 02-09 12:02: 37 Yes Take by mouth. [facility] furosemide 20 mg tablet 02-09 12:02: 37 Yes 20mg Take 20 mg by mouth in the morning. [facility] famotidine 40 mg tablet 02-09 12:02: 37 Yes 40mg Take 40 mg by mouth in the morning. [facility] DILTIAZEM HCL ORAL 02-09 12:02: 37 Yes 120mg Take 120 mg by mouth every 8 (eight) hours. [facility] docusate 100 mg capsule 02-09 12:02: 37 Yes 100mg Take 100 mg by mouth daily. [facility] polyethylen e glycol 3350 (MIRALAX ORAL) 02-09 12:02: 37 Yes Take by mouth. [facility] furosemide 20 mg tablet 02-09 12:02: 37 Yes 20mg Take 20 mg by mouth in the morning. [facility] famotidine 40 mg tablet 02-09 12:02: 37 Yes 40mg Take 40 mg by mouth in the morning. [facility] DILTIAZEM HCL ORAL 02-09 12:02: 37 Yes 120mg Take 120 mg by mouth every 8 (eight) hours. [facility] docusate 100 mg capsule 02-09 12:02: 37 Yes 100mg Take 100 mg by mouth daily. [facility] polyethylen e glycol 3350 (MIRALAX ORAL) 02-09 12:02: 37 Yes Take by mouth. [facility] furosemide 20 mg tablet 02-09 12:02: 37 Yes 20mg Take 20 mg by mouth in the morning. [facility] famotidine 40 mg tablet 02-09 12:02: 37 Yes 40mg Take 40 mg by mouth in the morning. [facility] DILTIAZEM HCL ORAL 02-09 12:02: 37 Yes 120mg Take 120 mg by mouth every 8 (eight) hours. [facility] docusate 100 mg capsule 02-09 12:02: 37 Yes 100mg Take 100 mg by mouth daily. [facility] polyethylen e glycol 3350 (MIRALAX ORAL) 02-09 12:02: 37 Yes Take by mouth. [facility] furosemide 20 mg tablet 02-09 12:02: 37 Yes 20mg Take 20 mg by mouth in the morning. [facility] famotidine 40 mg tablet 02-09 12:02: 37 Yes 40mg Take 40 mg by mouth in the morning. [facility] DILTIAZEM HCL ORAL 02-09 12:02: 37 Yes 120mg Take 120 mg by mouth every 8 (eight) hours. [facility] docusate 100 mg capsule 02-09 12:02: 37 Yes 100mg Take 100 mg by mouth daily. [facility] polyethylen e glycol 3350 (MIRALAX ORAL) 02-09 12:02: 37 Yes Take by mouth. [facility] furosemide 20 mg tablet 02-09 12:02: 37 Yes 20mg Take 20 mg by mouth in the morning. [facility] famotidine 40 mg tablet 02-09 12:02: 37 Yes 40mg Take 40 mg by mouth in the morning. [facility] DILTIAZEM HCL ORAL 02-09 12:02: 37 Yes 120mg Take 120 mg by mouth every 8 (eight) hours. [facility] docusate 100 mg capsule 02-09 12:02: 37 Yes 100mg Take 100 mg by mouth daily. [facility] polyethylen e glycol 3350 (MIRALAX ORAL) 02-09 12:02: 37 Yes Take by mouth. [facility] furosemide 20 mg tablet 02-09 12:02: 37 Yes 20mg Take 20 mg by mouth in the morning. [facility] famotidine 40 mg tablet 02-09 12:02: 37 Yes 40mg Take 40 mg by mouth in the morning. [facility] DILTIAZEM HCL ORAL 02-09 12:02: 37 Yes 120mg Take 120 mg by mouth every 8 (eight) hours. [facility] cetirizine 10 mg tablet 2021-02 16:58: 27 Yes 10mg Take 10 mg by mouth daily. [facility] propranoloL 40 mg tablet 2021-02 16:58: 27 Yes 40mg Take 40 mg by mouth 3 (three) times daily. [facility] pyridoxine, VITAMIN B-6, 25 mg tablet 2021-02 16:58: 27 Yes 25mg Take 25 mg by mouth daily. [facility] acetaminoph en 650 mg CR tablet 2021-02 16:58: 27 Yes 650mg Take 650 mg by mouth every 8 (eight) hours as needed for Pain. [facility] docusate 100 mg capsule 2021-02 16:58: 27 Yes 100mg Take 100 mg by mouth daily. [facility] HYDROcodone -acetaminop hen 5-325 mg tablet 2021-02 16:58: 27 Yes 1{tbl} Take 1 tablet by mouth every 6 (six) hours as needed. [facility] polyethylen e glycol 3350 (MIRALAX ORAL) 2021-02 16:58: 27 Yes Take by mouth. [facility] furosemide (LASIX) 20 mg tablet 2021-02 16:58: 27 Yes 20mg Take 20 mg by mouth in the morning. [facility] MELOXICAM ORAL 2021-02 16:58: 27 Yes 15mg Take 15 mg by mouth. [facility] famotidine 40 mg tablet 2021-02 16:58: 27 Yes 40mg Take 40 mg by mouth in the morning. [facility] DILTIAZEM HCL ORAL 2021-02 16:58: 27 Yes 120mg Take 120 mg by mouth every 8 (eight) hours. [facility] cetirizine 10 mg tablet 2021-02 16:58: 27 Yes 10mg Take 10 mg by mouth daily. [facility] propranoloL 40 mg tablet 2021-02 16:58: 27 Yes 40mg Take 40 mg by mouth 3 (three) times daily. [facility] pyridoxine, VITAMIN B-6, 25 mg tablet 2021-02 16:58: 27 Yes 25mg Take 25 mg by mouth daily. [facility] acetaminoph en 650 mg CR tablet 2021-02 16:58: 27 Yes 650mg Take 650 mg by mouth every 8 (eight) hours as needed for Pain. [facility] docusate 100 mg capsule 2021-02 16:58: 27 Yes 100mg Take 100 mg by mouth daily. [facility] HYDROcodone -acetaminop hen 5-325 mg tablet 2021-02 16:58: 27 Yes 1{tbl} Take 1 tablet by mouth every 6 (six) hours as needed. [facility] polyethylen e glycol 3350 (MIRALAX ORAL) 2021-02 16:58: 27 Yes Take by mouth. [facility] furosemide (LASIX) 20 mg tablet 2021-02 16:58: 27 Yes 20mg Take 20 mg by mouth in the morning. [facility] MELOXICAM ORAL 2021-02 16:58: 27 Yes 15mg Take 15 mg by mouth. [facility] famotidine 40 mg tablet 2021-02 16:58: 27 Yes 40mg Take 40 mg by mouth in the morning. [facility] DILTIAZEM HCL ORAL 2021-02 16:58: 27 Yes 120mg Take 120 mg by mouth every 8 (eight) hours. [facility] cetirizine 10 mg tablet 2021-02 16:58: 27 Yes 10mg Take 10 mg by mouth daily. [facility] propranoloL 40 mg tablet 2021-02 16:58: 27 Yes 40mg Take 40 mg by mouth 3 (three) times daily. [facility] pyridoxine, VITAMIN B-6, 25 mg tablet 2021-02 16:58: 27 Yes 25mg Take 25 mg by mouth daily. [facility] acetaminoph en 650 mg CR tablet 2021-02 16:58: 27 Yes 650mg Take 650 mg by mouth every 8 (eight) hours as needed for Pain. [facility] docusate 100 mg capsule 2021-02 16:58: 27 Yes 100mg Take 100 mg by mouth daily. [facility] HYDROcodone -acetaminop hen 5-325 mg tablet 2021-02 16:58: 27 Yes 1{tbl} Take 1 tablet by mouth every 6 (six) hours as needed. [facility] polyethylen e glycol 3350 (MIRALAX ORAL) 2021-02 16:58: 27 Yes Take by mouth. [facility] furosemide (LASIX) 20 mg tablet 2021-02 16:58: 27 Yes 20mg Take 20 mg by mouth in the morning. [facility] MELOXICAM ORAL 2021-02 16:58: 27 Yes 15mg Take 15 mg by mouth. [facility] famotidine 40 mg tablet 2021-02 16:58: 27 Yes 40mg Take 40 mg by mouth in the morning. [facility] DILTIAZEM HCL ORAL 2021-02 16:58: 27 Yes 120mg Take 120 mg by mouth every 8 (eight) hours. [facility] cetirizine 10 mg tablet 2021-02 16:58: 27 Yes 10mg Take 10 mg by mouth daily. [facility] propranoloL 40 mg tablet 2021-02 16:58: 27 Yes 40mg Take 40 mg by mouth 3 (three) times daily. [facility] pyridoxine, VITAMIN B-6, 25 mg tablet 2021-02 16:58: 27 Yes 25mg Take 25 mg by mouth daily. [facility] acetaminoph en 650 mg CR tablet 2021-02 16:58: 27 Yes 650mg Take 650 mg by mouth every 8 (eight) hours as needed for Pain. [facility] docusate 100 mg capsule 2021-02 16:58: 27 Yes 100mg Take 100 mg by mouth daily. [facility] HYDROcodone -acetaminop hen 5-325 mg tablet 2021-02 16:58: 27 Yes 1{tbl} Take 1 tablet by mouth every 6 (six) hours as needed. [facility] polyethylen e glycol 3350 (MIRALAX ORAL) 2021-02 16:58: 27 Yes Take by mouth. [facility] furosemide (LASIX) 20 mg tablet 2021-02 16:58: 27 Yes 20mg Take 20 mg by mouth in the morning. [facility] MELOXICAM ORAL 2021-02 16:58: 27 Yes 15mg Take 15 mg by mouth. [facility] famotidine 40 mg tablet 2021-02 16:58: 27 Yes 40mg Take 40 mg by mouth in the morning. [facility] DILTIAZEM HCL ORAL 2021-02 16:58: 27 Yes 120mg Take 120 mg by mouth every 8 (eight) hours. [facility] cetirizine 10 mg tablet 2021-02 16:58: 27 Yes 10mg Take 10 mg by mouth daily. [facility] propranoloL 40 mg tablet 2021-02 16:58: 27 Yes 40mg Take 40 mg by mouth 3 (three) times daily. [facility] pyridoxine, VITAMIN B-6, 25 mg tablet 2021-02 16:58: 27 Yes 25mg Take 25 mg by mouth daily. [facility] acetaminoph en 650 mg CR tablet 2021-02 16:58: 27 Yes 650mg Take 650 mg by mouth every 8 (eight) hours as needed for Pain. [facility] docusate 100 mg capsule 2021-02 16:58: 27 Yes 100mg Take 100 mg by mouth daily. [facility] HYDROcodone -acetaminop hen 5-325 mg tablet 2021-02 16:58: 27 Yes 1{tbl} Take 1 tablet by mouth every 6 (six) hours as needed. [facility] polyethylen e glycol 3350 (MIRALAX ORAL) 2021-02 16:58: 27 Yes Take by mouth. [facility] furosemide (LASIX) 20 mg tablet 2021-02 16:58: 27 Yes 20mg Take 20 mg by mouth in the morning. [facility] MELOXICAM ORAL 2021-02 16:58: 27 Yes 15mg Take 15 mg by mouth. [facility] famotidine 40 mg tablet 2021-02 16:58: 27 Yes 40mg Take 40 mg by mouth in the morning. [facility] DILTIAZEM HCL ORAL 2021-02 16:58: 27 Yes 120mg Take 120 mg by mouth every 8 (eight) hours. [facility] MELOXICAM ORAL 2021-02 16:58: 27 Yes 15mg Take 15 mg by mouth. [facility] MELOXICAM ORAL 2021-02 16:58: 27 Yes 15mg Take 15 mg by mouth. [facility] MELOXICAM ORAL 2021-02 16:58: 27 Yes 15mg Take 15 mg by mouth. [facility] MELOXICAM ORAL 2021-02 16:58: 27 Yes 15mg Take 15 mg by mouth. [facility] ondansetron (ZOFRAN-ODT ) disintegrat ing tablet 4 mg 2021-02 14:35: 55 Yes 4mg 4 mg, Oral, Q6HPRN, Starting on Tue12/30/21 at 0835, Until Discontinu ed, Routine, Nausea and Vomiting (N/V) [facility] HYDROcodone -acetaminop hen (NORCO) 5-325 mg tablet 2021-02 00:00: 00 01-07 05:59 :00 No 4647 1{tbl} Take 1 tablet by mouth every 6 (six) hours as needed for Pain (scale 7-10) for up to 7 days. Indication s: acute pain [facility] alum-mag hydroxide-s imeth (MAALOX PLUS / MAG-AL PLUS) 200-200-20 mg/5 mL suspension 30 mL 2021-02 20:00: 00 Yes 30mL 30 mL, Oral, TID, First dose on Tue12/29/21 at 1400, Until Discontinu ed, Routine [facility] alum-mag hydroxide-s imeth (MAALOX PLUS / MAG-AL PLUS) 200-200-20 mg/5 mL suspension 30 mL 2021-02 20:00: 00 Yes 30mL 30 mL, Oral, TID, First dose on Tue12/29/21 at 1400, Until Discontinu ed, Routine [facility] acetaminoph en (TYLENOL) tablet 650 mg 2021-02 18:00: 00 Yes 650mg 650 mg, Oral, Q6H, First dose (after last modificati on) on Tue12/29/21 at 1200, Until Discontinu ed, Routine [facility] acetaminoph en (TYLENOL) tablet 650 mg 2021-02 18:00: 00 Yes 650mg 650 mg, Oral, Q6H, First dose (after last modificati on) on Tue12/29/21 at 1200, Until Discontinu ed, Routine [facility] HYDROmorpho ne (DILAUDID) 10 mg/50 mL 0.9% NaCl [employer] 2021-02 16:30: 00 12-31 16:29 :00 No Patient Bolus Dose: 0.2 mg
Lock out Interval: 10 Minutes
Basal Rate: 0 mg/hr
F our Hour Dose Limit: 4 mg
IV Infusion, 50 mL, CONTINUOUS , Starting on Tue12/29/21 at 1030, Until Tue12/31/21 at 1029 [facility] HYDROmorpho ne (DILAUDID) 10 mg/50 mL 0.9% NaCl [employer] 2021-02 16:30: 00 12-30 14:36 :58 No Patient Bolus Dose: 0.2 mg
Lock out Interval: 10 Minutes
Basal Rate: 0 mg/hr
F our Hour Dose Limit: 4 mg
IV Infusion, 50 mL, CONTINUOUS , Starting on Tue12/29/21 at 1030, Until Tue12/30/21 at 0836 [facility] HYDROcodone -acetaminop hen (NORCO) 10-325 mg tablet 1 tablet 2021-02 15:24: 46 Yes 1{tbl} 1 tablet, Oral, Q4HPRN, Starting on Tue12/29/21 at 0924, Until Discontinu ed, Routine, Pain (scale 7-10) [facility] HYDROcodone -acetaminop hen (NORCO) 10-325 mg tablet 1 tablet 2021-02 15:24: 46 Yes 1{tbl} 1 tablet, Oral, Q4HPRN, Starting on Tue12/29/21 at 0924, Until Discontinu ed, Routine, Pain (scale 7-10) [facility] cyclobenzap rine (FLEXERIL) tablet 5 mg 2021-02 15:15: 00 Yes 5mg 5 mg, Oral, TID, First dose on Tue12/29/21 at 0915, Until Discontinu ed, Routine [facility] cyclobenzap rine (FLEXERIL) tablet 5 mg 2021-02 15:15: 00 Yes 5mg 5 mg, Oral, TID, First dose on Tue12/29/21 at 0915, Until Discontinu ed, Routine [facility] enoxaparin (LOVENOX) injection 40 mg 2021-02 15:00: 00 Yes 40mg 40 mg, Subcutaneo us, DAILY, First dose on Tue12/29/21 at 0900, Until Discontinu ed, Routine [facility] furosemide (LASIX) tablet 20 mg 2021-02 15:00: 00 Yes 20mg 20 mg, Oral, DAILY, First dose on Tue12/29/21 at 0900, Until Discontinu ed, Routine [facility] famotidine (PEPCID AC) tablet 40 mg 2021-02 15:00: 00 Yes 40mg 40 mg, Oral, DAILY, First dose on Tue12/29/21 at 0900, Until Discontinu ed, Routine [facility] enoxaparin (LOVENOX) injection 40 mg 2021-02 15:00: 00 Yes 40mg 40 mg, Subcutaneo us, DAILY, First dose on Tue12/29/21 at 0900, Until Discontinu ed, Routine [facility] furosemide (LASIX) tablet 20 mg 2021-02 15:00: 00 Yes 20mg 20 mg, Oral, DAILY, First dose on Tue12/29/21 at 0900, Until Discontinu ed, Routine [facility] famotidine (PEPCID AC) tablet 40 mg 2021-02 15:00: 00 Yes 40mg 40 mg, Oral, DAILY, First dose on Tue12/29/21 at 0900, Until Discontinu ed, Routine [facility] atorvastati n (LIPITOR) tablet 80 mg 2021-02 03:00: 00 Yes 80mg 80 mg, Oral, QHS, First dose on Tue12/28/21 at 2100, Until Discontinu ed, Routine [facility] amitriptyli ne (ELAVIL) tablet 100 mg 2021-02 03:00: 00 Yes 100mg 100 mg, Oral, QHS, First dose on Tue12/28/21 at 2100, Until Discontinu ed, Routine [facility] atorvastati n (LIPITOR) tablet 80 mg 2021-02 03:00: 00 Yes 80mg 80 mg, Oral, QHS, First dose on Tue12/28/21 at 2100, Until Discontinu ed, Routine [facility] amitriptyli ne (ELAVIL) tablet 100 mg 2021-02 03:00: 00 Yes 100mg 100 mg, Oral, QHS, First dose on Tue12/28/21 at 2100, Until Discontinu ed, Routine [facility] levETIRAcet am (KEPPRA) tablet 1,000 mg 2021-02 02:00: 00 Yes 1000mg 1,000 mg, Oral, BID, First dose on Tue12/28/21 at 2000, Until Discontinu ed, Routine [facility] hydrOXYchlo roQUINE (PLAQUENIL) tablet 200 mg 2021-02 02:00: 00 Yes 200mg 200 mg, Oral, BID, First dose on Tue12/28/21 at 2000, Until Discontinu ed, Routine
Indicatio n: Rheumatic disorder [facility] levETIRAcet am (KEPPRA) tablet 1,000 mg 2021-02 02:00: 00 Yes 1000mg 1,000 mg, Oral, BID, First dose on Tue12/28/21 at 2000, Until Discontinu ed, Routine [facility] hydrOXYchlo roQUINE (PLAQUENIL) tablet 200 mg 2021-02 02:00: 00 Yes 200mg 200 mg, Oral, BID, First dose on Tue12/28/21 at 2000, Until Discontinu ed, Routine
Indicatio n: Rheumatic disorder [facility] HYDROmorpho ne (DILAUDID) 10 mg/50 mL 0.9% NaCl [employer] 2021-02 23:30: 00 12-29 13:39 :30 No Patient Bolus Dose: 0.2 mg
Lock out Interval: 10 Minutes
Basal Rate: 0 mg/hr
F our Hour Dose Limit: 4 mg
IV Infusion, 50 mL, CONTINUOUS , Starting on Tue12/28/21 at 1730, Until Tue12/29/21 at 0739 [facility] HYDROmorpho ne (DILAUDID) 10 mg/50 mL 0.9% NaCl [employer] 2021-02 23:30: 00 12-29 13:39 :30 No Patient Bolus Dose: 0.2 mg
Lock out Interval: 10 Minutes
Basal Rate: 0 mg/hr
F our Hour Dose Limit: 4 mg
IV Infusion, 50 mL, CONTINUOUS , Starting on Tue12/28/21 at 1730, Until Tue12/29/21 at 0739 [facility] naloxone (NARCAN) injection 0.1 mg 2021-02 22:21: 08 Yes .1mg 0.1 mg, Slow IV Push, SEE-INSTRU CTIONS, Starting on Tue12/28/21 at 1621, Until Discontinu ed, Routine [facility] naloxone (NARCAN) injection 0.1 mg 2021-02 22:21: 08 Yes .1mg 0.1 mg, Slow IV Push, SEE-INSTRU CTIONS, Starting on Tue12/28/21 at 1621, Until Discontinu ed, Routine [facility] propranoloL (INDERAL) tablet 40 mg 2021-02 20:00: 00 Yes 40mg 40 mg, Oral, TID, First dose on Tue12/28/21 at 1400, Until Discontinu ed, Routine [facility] diltiazem (CARDIZEM) tablet 120 mg 2021-02 20:00: 00 Yes 120mg 120 mg, Oral, Q8H, First dose on Tue12/28/21 at 1400, Until Discontinu ed [facility] propranoloL (INDERAL) tablet 40 mg 2021-02 20:00: 00 Yes 40mg 40 mg, Oral, TID, First dose on Tue12/28/21 at 1400, Until Discontinu ed, Routine [facility] diltiazem (CARDIZEM) tablet 120 mg 2021-02 20:00: 00 Yes 120mg 120 mg, Oral, Q8H, First dose on Tue12/28/21 at 1400, Until Discontinu ed [facility] HYDROmorpho ne (DILAUDID) injection 0.2 mg 2021-02 19:13: 34 12-28 23:34 :16 No .2mg 0.2 mg, Slow IV Push, Q5MIN PRN, 10 doses, Starting on Tue12/28/21 at 1313, Until Tue12/28/21 at 1734, Routine, Pain (scale 7-10), PACU
Us e approved by (Faculty): PACU USE -ANESTHESI A SERVICE-HY DROMORPHON E INJECTIONS [facility] FENTanyl PF (SUBLIMAZE (PF)) injection 25 mcg 2021-02 19:13: 34 12-28 22:20 :00 No 25ug 25 mcg, Slow IV Push, Q5MIN PRN, 4 doses, Starting on Tue12/28/21 at 1313, Until Discontinu ed, Routine, Pain (scale 4-6), PACU [facility] HYDROmorpho ne (DILAUDID) injection 0.2 mg 2021-02 19:13: 34 12-28 23:34 :16 No .2mg 0.2 mg, Slow IV Push, Q5MIN PRN, 10 doses, Starting on Tue12/28/21 at 1313, Until Tue12/28/21 at 1734, Routine, Pain (scale 7-10), PACU
Us e approved by (Faculty): PACU USE -ANESTHESI A SERVICE-HY DROMORPHON E INJECTIONS [facility] FENTanyl PF (SUBLIMAZE (PF)) injection 25 mcg 2021-02 19:13: 34 12-28 22:20 :00 No 25ug 25 mcg, Slow IV Push, Q5MIN PRN, 4 doses, Starting on Tue12/28/21 at 1313, Until Discontinu ed, Routine, Pain (scale 4-6), PACU [facility] acetaminoph en (TYLENOL) tablet 650 mg 2021-02 18:55: 08 12-29 13:47 :13 No 650mg 650 mg, Oral, Q6HPRN, Starting on Tue12/28/21 at 1255, Until Tue12/29/21 at 0747, Routine, Pain (scale 1-3) [facility] acetaminoph en (TYLENOL) tablet 650 mg 2021-02 18:55: 08 12-29 13:47 :13 No 650mg 650 mg, Oral, Q6HPRN, Starting on Tue12/28/21 at 1255, Until Tue12/29/21 at 0747, Routine, Pain (scale 1-3) [facility] ondansetron (ZOFRAN (PF)) injection 4 mg 2021-02 18:54: 57 Yes 4mg 4 mg, Slow IV Push, Q6HPRN, Starting on Tue12/28/21 at 1254, Until Discontinu ed, Routine, Nausea and Vomiting (N/V) [facility] sugammadex (BRIDION) injection 2021-02 18:42: 00 12-28 19:04 :26 No IV Push, ONCE INTRA PROCEDURE, Starting on Tue12/28/21 at 1242, Until Tue12/28/21 at 1304, Routine, Intra-op [facility] ondansetron (ZOFRAN (PF)) injection 2021-02 18:37: 00 12-28 19:04 :26 No Slow IV Push, ONCE INTRA PROCEDURE, Starting on Tue12/28/21 at 1237, Until Tue12/28/21 at 1304, Routine, Intra-op [facility] PHENYLephri ne 1000 mcg/10 mL in 0.9% NaCl syringe 2021-02 18:10: 00 12-28 19:04 :26 No Slow IV Push, CONTINUOUS PRN, Starting on Tue12/28/21 at 1210, Until Tue12/28/21 at 1304, Routine, Intra-op [facility] PHENYLephri ne 1000 mcg/10 mL in 0.9% NaCl syringe 2021-02 17:38: 00 12-28 19:04 :26 No Slow IV Push, ONCE INTRA PROCEDURE, Starting on Tue12/28/21 at 1138, Until Tue12/28/21 at 1304, Routine, Intra-op [facility] furosemide (LASIX) 20 mg tablet 2021-02 17:34: 17 Yes 20mg Take 20 mg by mouth in the morning. [facility] MELOXICAM ORAL 2021-02 17:34: 17 Yes 15mg Take 15 mg by mouth. [facility] famotidine 40 mg tablet 2021-02 17:34: 17 Yes 40mg Take 40 mg by mouth in the morning. [facility] DILTIAZEM HCL ORAL 2021-02 17:34: 17 Yes 120mg Take 120 mg by mouth every 8 (eight) hours. [facility] ketamine (KETALAR) injection 2021-02 16:52: 00 12-28 19:04 :26 No Intravenou s, ONCE INTRA PROCEDURE, Starting on Tue12/28/21 at 1052, Until Tue12/28/21 at 1304, Routine, Intra-op [facility] bupivacaine (preserv free) (SENSORCAIN E MPF) 0.25 % (2.5 mg/mL) 22 mL, bupivacaine liposome (PF) (EXPAREL (PF)) 1.3 % (13.3 mg/mL) 266 mg, NaCl 0.9% (NS) 50 mL 2021-02 15:47: 00 12-28 19:03 :19 No PRN, Starting on Tue12/28/21 at 0947, Intra-op [facility] HYDROmorphO ne (DILAUDID) injection 2021-02 14:03: 00 12-28 19:04 :26 No Slow IV Push, ONCE INTRA PROCEDURE, Starting on Tue12/28/21 at 0803, Until Tue12/28/21 at 1304, Routine, [facility]-op [facility] bupivacaine (preserv free) (SENSORCAIN E MPF) 0.25 % (2.5 mg/mL) injection 2021-02 14:03: 00 12-28 19:03 :19 No PRN, Starting on Tue12/28/21 at 0803, Until Tue12/28/21 at 1303, Routine, Intra-op [facility] dexamethaso ne (DECADRON PHOSPHATE) injection 2021-02 13:58: 00 12-28 19:04 :26 No IV Push, ONCE INTRA PROCEDURE, Starting on Tue12/28/21 at 0758, Until Tue12/28/21 at 1304, Routine, Intra-op [facility] midazolam (VERSED) injection 2021-02 13:48: 00 12-28 19:04 :26 No IV Push, ONCE INTRA PROCEDURE, Starting on Tue12/28/21 at 0748, Until Tue12/28/21 at 1304, Routine, Intra-op [facility] ceFAZolin (ANCEF) injection 2021-02 13:32: 00 12-28 19:04 :26 No Slow IV Push, ONCE INTRA PROCEDURE, Starting on Tue12/28/21 at 0732, Until Tue12/28/21 at 1304, SULAIMAN, Intra-op [facility] rocuronium (ZEMURON) injection 2021-02 13:23: 00 12-28 19:04 :26 No IV Push, ONCE INTRA PROCEDURE, Starting on Tue12/28/21 at 0723, Until Tue12/28/21 at 1304, Routine, Intra-op [facility] propofoL IV infusion 2021-02 13:22: 00 12-28 19:04 :26 No Slow IV Push, ONCE INTRA PROCEDURE, Starting on Tue12/28/21 at 0722, Until Tue12/28/21 at 1304, Routine, Intra-op [facility] lidocaine 1% (XYLOCAINE) 100 mg/10 mL (1 %) injection 2021-02 13:22: 00 12-28 19:04 :26 No Intravenou s, ONCE INTRA PROCEDURE, Starting on Tue12/28/21 at 0722, Until Tue12/28/21 at 1304, Routine, Intra-op [facility] FENTanyl PF (SUBLIMAZE (PF)) injection 2021-02 13:22: 00 12-28 19:04 :26 No Intravenou s, ONCE INTRA PROCEDURE, Starting on Tue12/28/21 at 0722, Until Tue12/28/21 at 1304, Routine, Intra-op [facility] lactated ringers IV infusion 2021-02 13:19: 00 12-28 19:04 :26 No IV Infusion, CONTINUOUS PRN, Starting on Tue12/28/21 at 0719, Until Tue12/28/21 at 1304, Routine, Intra-op [facility] furosemide (LASIX) 20 mg tablet 2021-02 13:03: 19 Yes 20mg Take 20 mg by mouth in the morning. [facility] MELOXICAM ORAL 2021-02 13:03: 19 Yes 15mg Take 15 mg by mouth. [facility] famotidine 40 mg tablet 2021-02 13:03: 19 Yes 40mg Take 40 mg by mouth in the morning. [facility] DILTIAZEM HCL ORAL 2021-02 13:03: 19 Yes 120mg Take 120 mg by mouth every 8 (eight) hours. [facility] cetirizine 10 mg tablet 2021-02 12:56: 34 Yes 10mg Take 10 mg by mouth daily. [facility] propranoloL 40 mg tablet 2021-02 12:56: 34 Yes 40mg Take 40 mg by mouth 3 (three) times daily. [facility] pyridoxine, VITAMIN B-6, 25 mg tablet 2021-02 12:56: 34 Yes 25mg Take 25 mg by mouth daily. [facility] acetaminoph en 650 mg CR tablet 2021-02 12:56: 34 Yes 650mg Take 650 mg by mouth every 8 (eight) hours as needed for Pain. [facility] docusate 100 mg capsule 2021-02 12:56: 34 Yes 100mg Take 100 mg by mouth daily. [facility] HYDROcodone -acetaminop hen 5-325 mg tablet 2021-02 12:56: 34 Yes 1{tbl} Take 1 tablet by mouth every 6 (six) hours as needed. [facility] polyethylen e glycol 3350 (MIRALAX ORAL) 2021-02 12:56: 34 Yes Take by mouth. [facility] cetirizine 10 mg tablet 2021-02 12:56: 34 Yes 10mg Take 10 mg by mouth daily. [facility] propranoloL 40 mg tablet 2021-02 12:56: 34 Yes 40mg Take 40 mg by mouth 3 (three) times daily. [facility] pyridoxine, VITAMIN B-6, 25 mg tablet 2021-02 12:56: 34 Yes 25mg Take 25 mg by mouth daily. [facility] acetaminoph en 650 mg CR tablet 2021-02 12:56: 34 Yes 650mg Take 650 mg by mouth every 8 (eight) hours as needed for Pain. [facility] docusate 100 mg capsule 2021-02 12:56: 34 Yes 100mg Take 100 mg by mouth daily. [facility] HYDROcodone -acetaminop hen 5-325 mg tablet 2021-02 12:56: 34 Yes 1{tbl} Take 1 tablet by mouth every 6 (six) hours as needed. [facility] polyethylen e glycol 3350 (MIRALAX ORAL) 2021-02 12:56: 34 Yes Take by mouth. [facility] heparin (porcine) injection 5,000 Units 2021-02 12:38: 00 12-28 13:06 :00 No 5000U 5,000 Units, Subcutaneo us, ONCE, 1 dose, On Tue12/28/21 at 0645, SULAIMAN [facility] heparin (porcine) injection 5,000 Units 2021-02 12:38: 00 12-28 13:06 :00 No 5000U 5,000 Units, Subcutaneo us, ONCE, 1 dose, On Tue12/28/21 at 0645, SULAIMAN [facility] DILTIAZEM HCL ORAL 2021-02 18:00: 36 Yes 120mg Take 120 mg by mouth every 8 (eight) hours. [facility] DILTIAZEM HCL ORAL 2021-02 18:00: 36 Yes 120mg Take 120 mg by mouth every 8 (eight) hours. [facility] DILTIAZEM HCL ORAL 2021-02 18:00: 36 Yes 120mg Take 120 mg by mouth every 8 (eight) hours. [facility] MELOXICAM ORAL 2021-02 17:54: 18 Yes 15mg Take 15 mg by mouth. [facility] famotidine 40 mg tablet 2021-02 17:54: 18 Yes 40mg Take 40 mg by mouth in the morning. [facility] MELOXICAM ORAL 2021-02 17:54: 18 Yes 15mg Take 15 mg by mouth. [facility] famotidine 40 mg tablet 2021-02 17:54: 18 Yes 40mg Take 40 mg by mouth in the morning. [facility] MELOXICAM ORAL 2021-02 17:54: 18 Yes 15mg Take 15 mg by mouth. [facility] famotidine 40 mg tablet 2021-02 17:54: 18 Yes 40mg Take 40 mg by mouth in the morning. [facility] pyridoxine, VITAMIN B-6, 25 mg tablet 2021-02 17:15: 57 Yes 25mg Take 25 mg by mouth daily. [facility] HYDROcodone -acetaminop hen 5-325 mg tablet 2021-02 17:15: 57 Yes 1{tbl} Take 1 tablet by mouth every 6 (six) hours as needed. [facility] furosemide (LASIX) 20 mg tablet 2021-02 17:15: 57 Yes 20mg Take 20 mg by mouth in the morning. [facility] pyridoxine, VITAMIN B-6, 25 mg tablet 2021-02 17:15: 57 Yes 25mg Take 25 mg by mouth daily. [facility] HYDROcodone -acetaminop hen 5-325 mg tablet 2021-02 17:15: 57 Yes 1{tbl} Take 1 tablet by mouth every 6 (six) hours as needed. [facility] furosemide (LASIX) 20 mg tablet 2021-02 17:15: 57 Yes 20mg Take 20 mg by mouth in the morning. [facility] pyridoxine, VITAMIN B-6, 25 mg tablet 2021-02 17:15: 57 Yes 25mg Take 25 mg by mouth daily. [facility] HYDROcodone -acetaminop hen 5-325 mg tablet 2021-02 17:15: 57 Yes 1{tbl} Take 1 tablet by mouth every 6 (six) hours as needed. [facility] furosemide (LASIX) 20 mg tablet 2021-02 17:15: 57 Yes 20mg Take 20 mg by mouth in the morning. [facility] cetirizine 10 mg tablet 2021-02 16:47: 56 Yes 10mg Take 10 mg by mouth daily. [facility] acetaminoph en 650 mg CR tablet 2021-02 16:47: 56 Yes 650mg Take 650 mg by mouth every 8 (eight) hours as needed for Pain. [facility] docusate 100 mg capsule 2021-02 16:47: 56 Yes 100mg Take 100 mg by mouth daily. [facility] polyethylen e glycol 3350 (MIRALAX ORAL) 2021-02 16:47: 56 Yes Take by mouth. [facility] cetirizine 10 mg tablet 2021-02 16:47: 56 Yes 10mg Take 10 mg by mouth daily. [facility] acetaminoph en 650 mg CR tablet 2021-02 16:47: 56 Yes 650mg Take 650 mg by mouth every 8 (eight) hours as needed for Pain. [facility] docusate 100 mg capsule 2021-02 16:47: 56 Yes 100mg Take 100 mg by mouth daily. [facility] polyethylen e glycol 3350 (MIRALAX ORAL) 2021-02 16:47: 56 Yes Take by mouth. [facility] cetirizine 10 mg tablet 2021-02 16:47: 56 Yes 10mg Take 10 mg by mouth daily. [facility] acetaminoph en 650 mg CR tablet 2021-02 16:47: 56 Yes 650mg Take 650 mg by mouth every 8 (eight) hours as needed for Pain. [facility] docusate 100 mg capsule 2021-02 16:47: 56 Yes 100mg Take 100 mg by mouth daily. [facility] polyethylen e glycol 3350 (MIRALAX ORAL) 2021-02 16:47: 56 Yes Take by mouth. [facility] cetirizine 10 mg tablet 09-29 15:02: 10 Yes 10mg Take 10 mg by mouth daily. [facility] propranoloL 40 mg tablet 09-29 15:02: 10 Yes 40mg Take 40 mg by mouth 3 (three) times daily. [facility] acetaminoph en 650 mg CR tablet 09-29 15:02: 10 Yes 650mg Take 650 mg by mouth every 8 (eight) hours as needed for Pain. [facility] docusate 100 mg capsule 09-29 15:02: 10 Yes 100mg Take 100 mg by mouth daily. [facility] HYDROcodone -acetaminop hen 5-325 mg tablet 09-29 15:02: 10 Yes 1{tbl} Take 1 tablet by mouth every 6 (six) hours as needed. [facility] polyethylen e glycol 3350 (MIRALAX ORAL) 09-29 15:02: 10 Yes Take by mouth. [facility] cetirizine 10 mg tablet 09-29 15:02: 10 Yes 10mg Take 10 mg by mouth daily. [facility] propranoloL 40 mg tablet 09-29 15:02: 10 Yes 40mg Take 40 mg by mouth 3 (three) times daily. [facility] acetaminoph en 650 mg CR tablet 09-29 15:02: 10 Yes 650mg Take 650 mg by mouth every 8 (eight) hours as needed for Pain. [facility] docusate 100 mg capsule 09-29 15:02: 10 Yes 100mg Take 100 mg by mouth daily. [facility] HYDROcodone -acetaminop hen 5-325 mg tablet 09-29 15:02: 10 Yes 1{tbl} Take 1 tablet by mouth every 6 (six) hours as needed. [facility] polyethylen e glycol 3350 (MIRALAX ORAL) 09-29 15:02: 10 Yes Take by mouth. [facility] cetirizine 10 mg tablet 09-29 15:02: 10 Yes 10mg Take 10 mg by mouth daily. [facility] propranoloL 40 mg tablet 09-29 15:02: 10 Yes 40mg Take 40 mg by mouth 3 (three) times daily. [facility] acetaminoph en 650 mg CR tablet 09-29 15:02: 10 Yes 650mg Take 650 mg by mouth every 8 (eight) hours as needed for Pain. [facility] docusate 100 mg capsule 09-29 15:02: 10 Yes 100mg Take 100 mg by mouth daily. [facility] HYDROcodone -acetaminop hen 5-325 mg tablet 09-29 15:02: 10 Yes 1{tbl} Take 1 tablet by mouth every 6 (six) hours as needed. [facility] polyethylen e glycol 3350 (MIRALAX ORAL) 09-29 15:02: 10 Yes Take by mouth. [facility] cetirizine 10 mg tablet 09-29 15:02: 10 Yes 10mg Take 10 mg by mouth daily. [facility] propranoloL 40 mg tablet 09-29 15:02: 10 Yes 40mg Take 40 mg by mouth 3 (three) times daily. [facility] acetaminoph en 650 mg CR tablet 09-29 15:02: 10 Yes 650mg Take 650 mg by mouth every 8 (eight) hours as needed for Pain. [facility] docusate 100 mg capsule 09-29 15:02: 10 Yes 100mg Take 100 mg by mouth daily. [facility] HYDROcodone -acetaminop hen 5-325 mg tablet 09-29 15:02: 10 Yes 1{tbl} Take 1 tablet by mouth every 6 (six) hours as needed. [facility] polyethylen e glycol 3350 (MIRALAX ORAL) 09-29 15:02: 10 Yes Take by mouth. [facility] propranoloL 40 mg tablet 09-29 15:02: 10 Yes 40mg Take 40 mg by mouth 3 (three) times daily. [facility] propranoloL 40 mg tablet 09-29 15:02: 10 Yes 40mg Take 40 mg by mouth 3 (three) times daily. [facility] propranoloL 40 mg tablet 09-29 15:02: 10 Yes 40mg Take 40 mg by mouth 3 (three) times daily. [facility] pyridoxine, VITAMIN B-6, 25 mg tablet 07-03 09:03: 31 Yes 25mg Take 25 mg by mouth daily. [facility] pyridoxine, VITAMIN B-6, 25 mg tablet 07-03 09:03: 31 Yes 25mg Take 25 mg by mouth daily. [facility] pyridoxine, VITAMIN B-6, 25 mg tablet 0 07-03 09:03: 31 Yes 25mg Take 25 mg by mouth daily. [facility] pyridoxine, VITAMIN B-6, 25 mg tablet 0 07-03 09:03: 31 Yes 25mg Take 25 mg by mouth daily. [facility] LEVETIRACET AM 500 mg tablet 2021-0 05-11 00:00: 00 Yes TAKE 2 TABLETS BY MOUTH TWICE DAILY [facility] LEVETIRACET AM 500 mg tablet 2021-0 05-11 00:00: 00 Yes TAKE 2 TABLETS BY MOUTH TWICE DAILY [facility] LEVETIRACET AM 500 mg tablet 0 05-11 00:00: 00 Yes TAKE 2 TABLETS BY MOUTH TWICE DAILY [facility] LEVETIRACET AM 500 mg tablet 2021-0 05-11 00:00: 00 Yes TAKE 2 TABLETS BY MOUTH TWICE DAILY [facility] LEVETIRACET AM 500 mg tablet 0 05-11 00:00: 00 Yes TAKE 2 TABLETS BY MOUTH TWICE DAILY [facility] LEVETIRACET AM 500 mg tablet 0 05-11 00:00: 00 Yes TAKE 2 TABLETS BY MOUTH TWICE DAILY [facility] LEVETIRACET AM 500 mg tablet 2021-0 05-11 00:00: 00 Yes TAKE 2 TABLETS BY MOUTH TWICE DAILY [facility] LEVETIRACET AM 500 mg tablet 0 05-11 00:00: 00 Yes TAKE 2 TABLETS BY MOUTH TWICE DAILY [facility] LEVETIRACET AM 500 mg tablet 0 05-11 00:00: 00 Yes TAKE 2 TABLETS BY MOUTH TWICE DAILY [facility] LEVETIRACET AM 500 mg tablet 0 05-11 00:00: 00 Yes TAKE 2 TABLETS BY MOUTH TWICE DAILY [facility] LEVETIRACET AM 500 mg tablet 2021-0 05-11 00:00: 00 Yes TAKE 2 TABLETS BY MOUTH TWICE DAILY [facility] LEVETIRACET AM 500 mg tablet 0 05-11 00:00: 00 Yes TAKE 2 TABLETS BY MOUTH TWICE DAILY [facility] LEVETIRACET AM 500 mg tablet 0 05-11 00:00: 00 Yes TAKE 2 TABLETS BY MOUTH TWICE DAILY [facility] LEVETIRACET AM 500 mg tablet 0 05-11 00:00: 00 Yes TAKE 2 TABLETS BY MOUTH TWICE DAILY [facility] LEVETIRACET AM 500 mg tablet 0 05-11 00:00: 00 Yes TAKE 2 TABLETS BY MOUTH TWICE DAILY [facility] LEVETIRACET AM 500 mg tablet 2021-0 05-11 00:00: 00 Yes TAKE 2 TABLETS BY MOUTH TWICE DAILY [facility] LEVETIRACET AM 500 mg tablet 0 05-11 00:00: 00 Yes TAKE 2 TABLETS BY MOUTH TWICE DAILY [facility] LEVETIRACET AM 500 mg tablet 0 05-11 00:00: 00 Yes TAKE 2 TABLETS BY MOUTH TWICE DAILY [facility] LEVETIRACET AM 500 mg tablet 0 05-11 00:00: 00 Yes TAKE 2 TABLETS BY MOUTH TWICE DAILY [facility] LEVETIRACET AM 500 mg tablet 0 05-11 00:00: 00 Yes TAKE 2 TABLETS BY MOUTH TWICE DAILY [facility] LEVETIRACET AM 500 mg tablet 0 05-11 00:00: 00 Yes TAKE 2 TABLETS BY MOUTH TWICE DAILY [facility] LEVETIRACET AM 500 mg tablet 0 05-11 00:00: 00 Yes TAKE 2 TABLETS BY MOUTH TWICE DAILY [facility] LEVETIRACET AM 500 mg tablet 0 05-11 00:00: 00 Yes TAKE 2 TABLETS BY MOUTH TWICE DAILY [facility] LEVETIRACET AM 500 mg tablet 2021-0 05-11 00:00: 00 Yes TAKE 2 TABLETS BY MOUTH TWICE DAILY [facility] LEVETIRACET AM 500 mg tablet 2021-0 05-11 00:00: 00 Yes TAKE 2 TABLETS BY MOUTH TWICE DAILY [facility] LEVETIRACET AM 500 mg tablet 0 05-11 00:00: 00 Yes TAKE 2 TABLETS BY MOUTH TWICE DAILY [facility] LEVETIRACET AM 500 mg tablet 2021-0 05-11 00:00: 00 Yes TAKE 2 TABLETS BY MOUTH TWICE DAILY [facility] LEVETIRACET AM 500 mg tablet 0 05-11 00:00: 00 Yes TAKE 2 TABLETS BY MOUTH TWICE DAILY [facility] LEVETIRACET AM 500 mg tablet 0 05-11 00:00: 00 Yes TAKE 2 TABLETS BY MOUTH TWICE DAILY [facility] LEVETIRACET AM 500 mg tablet 0 05-11 00:00: 00 Yes TAKE 2 TABLETS BY MOUTH TWICE DAILY [facility] LEVETIRACET AM 500 mg tablet 2021-0 05-11 00:00: 00 Yes TAKE 2 TABLETS BY MOUTH TWICE DAILY [facility] LEVETIRACET AM 500 mg tablet 0 05-11 00:00: 00 Yes TAKE 2 TABLETS BY MOUTH TWICE DAILY [facility] LEVETIRACET AM 500 mg tablet 0 05-11 00:00: 00 Yes TAKE 2 TABLETS BY MOUTH TWICE DAILY [facility] LEVETIRACET AM 500 mg tablet 0 05-11 00:00: 00 Yes TAKE 2 TABLETS BY MOUTH TWICE DAILY [facility] LEVETIRACET AM 500 mg tablet 2021-0 05-11 00:00: 00 Yes TAKE 2 TABLETS BY MOUTH TWICE DAILY [facility] LEVETIRACET AM 500 mg tablet 0 05-11 00:00: 00 Yes TAKE 2 TABLETS BY MOUTH TWICE DAILY [facility] LEVETIRACET AM 500 mg tablet 0 05-11 00:00: 00 Yes TAKE 2 TABLETS BY MOUTH TWICE DAILY [facility] LEVETIRACET AM 500 mg tablet 2021-0 05-11 00:00: 00 Yes TAKE 2 TABLETS BY MOUTH TWICE DAILY [facility] LEVETIRACET AM 500 mg tablet 2021-0 05-11 00:00: 00 Yes TAKE 2 TABLETS BY MOUTH TWICE DAILY [facility] LEVETIRACET AM 500 mg tablet 0 05-11 00:00: 00 Yes TAKE 2 TABLETS BY MOUTH TWICE DAILY [facility] LEVETIRACET AM 500 mg tablet 0 05-11 00:00: 00 Yes TAKE 2 TABLETS BY MOUTH TWICE DAILY [facility] LEVETIRACET AM 500 mg tablet 0 05-11 00:00: 00 Yes TAKE 2 TABLETS BY MOUTH TWICE DAILY [facility] LEVETIRACET AM 500 mg tablet 0 05-11 00:00: 00 Yes TAKE 2 TABLETS BY MOUTH TWICE DAILY [facility] LEVETIRACET AM 500 mg tablet 0 05-11 00:00: 00 Yes TAKE 2 TABLETS BY MOUTH TWICE DAILY [facility] LEVETIRACET AM 500 mg tablet 0 05-11 00:00: 00 Yes TAKE 2 TABLETS BY MOUTH TWICE DAILY [facility] LEVETIRACET AM 500 mg tablet 0 05-11 00:00: 00 Yes TAKE 2 TABLETS BY MOUTH TWICE DAILY [facility] LEVETIRACET AM 500 mg tablet 0 05-11 00:00: 00 Yes TAKE 2 TABLETS BY MOUTH TWICE DAILY [facility] LEVETIRACET AM 500 mg tablet 0 05-11 00:00: 00 Yes TAKE 2 TABLETS BY MOUTH TWICE DAILY [facility] LEVETIRACET AM 500 mg tablet 0 05-11 00:00: 00 Yes TAKE 2 TABLETS BY MOUTH TWICE DAILY [facility] LEVETIRACET AM 500 mg tablet 0 05-11 00:00: 00 Yes TAKE 2 TABLETS BY MOUTH TWICE DAILY [facility] LEVETIRACET AM 500 mg tablet 0 05-11 00:00: 00 Yes TAKE 2 TABLETS BY MOUTH TWICE DAILY [facility] LEVETIRACET AM 500 mg tablet 0 05-11 00:00: 00 Yes TAKE 2 TABLETS BY MOUTH TWICE DAILY [facility] LEVETIRACET AM 500 mg tablet 0 05-11 00:00: 00 Yes TAKE 2 TABLETS BY MOUTH TWICE DAILY [facility] LEVETIRACET AM 500 mg tablet 0 05-11 00:00: 00 Yes TAKE 2 TABLETS BY MOUTH TWICE DAILY [facility] LEVETIRACET AM 500 mg tablet 0 05-11 00:00: 00 Yes TAKE 2 TABLETS BY MOUTH TWICE DAILY [facility] LEVETIRACET AM 500 mg tablet 2021-0 05-11 00:00: 00 Yes TAKE 2 TABLETS BY MOUTH TWICE DAILY [facility] LEVETIRACET AM 500 mg tablet 2021-0 05-11 00:00: 00 Yes TAKE 2 TABLETS BY MOUTH TWICE DAILY [facility] LEVETIRACET AM 500 mg tablet 0 05-11 00:00: 00 Yes TAKE 2 TABLETS BY MOUTH TWICE DAILY [facility] LEVETIRACET AM 500 mg tablet 0 05-11 00:00: 00 Yes TAKE 2 TABLETS BY MOUTH TWICE DAILY [facility] LEVETIRACET AM 500 mg tablet 0 05-11 00:00: 00 Yes TAKE 2 TABLETS BY MOUTH TWICE DAILY [facility] LEVETIRACET AM 500 mg tablet 0 05-11 00:00: 00 Yes TAKE 2 TABLETS BY MOUTH TWICE DAILY [facility] LEVETIRACET AM 500 mg tablet 0 05-11 00:00: 00 Yes TAKE 2 TABLETS BY MOUTH TWICE DAILY [facility] LEVETIRACET AM 500 mg tablet 2021-0 05-11 00:00: 00 Yes TAKE 2 TABLETS BY MOUTH TWICE DAILY [facility] LEVETIRACET AM 500 mg tablet 2021-0 05-11 00:00: 00 Yes TAKE 2 TABLETS BY MOUTH TWICE DAILY [facility] LEVETIRACET AM 500 mg tablet 0 05-11 00:00: 00 Yes TAKE 2 TABLETS BY MOUTH TWICE DAILY [facility] LEVETIRACET AM 500 mg tablet 2021-0 05-11 00:00: 00 Yes TAKE 2 TABLETS BY MOUTH TWICE DAILY [facility] LEVETIRACET AM 500 mg tablet 2021-0 05-11 00:00: 00 Yes TAKE 2 TABLETS BY MOUTH TWICE DAILY [facility] LEVETIRACET AM 500 mg tablet 0 05-11 00:00: 00 Yes TAKE 2 TABLETS BY MOUTH TWICE DAILY [facility] LEVETIRACET AM 500 mg tablet 0 05-11 00:00: 00 Yes TAKE 2 TABLETS BY MOUTH TWICE DAILY [facility] LEVETIRACET AM 500 mg tablet 2021-0 05-11 00:00: 00 Yes TAKE 2 TABLETS BY MOUTH TWICE DAILY [facility] LEVETIRACET AM 500 mg tablet 0 05-11 00:00: 00 Yes TAKE 2 TABLETS BY MOUTH TWICE DAILY [facility] LEVETIRACET AM 500 mg tablet 2021-0 05-11 00:00: 00 Yes TAKE 2 TABLETS BY MOUTH TWICE DAILY [facility] LEVETIRACET AM 500 mg tablet 2021-0 05-11 00:00: 00 Yes TAKE 2 TABLETS BY MOUTH TWICE DAILY [facility] LEVETIRACET AM 500 mg tablet 0 05-11 00:00: 00 Yes TAKE 2 TABLETS BY MOUTH TWICE DAILY [facility] LEVETIRACET AM 500 mg tablet 0 05-11 00:00: 00 Yes TAKE 2 TABLETS BY MOUTH TWICE DAILY [facility] LEVETIRACET AM 500 mg tablet 0 05-11 00:00: 00 Yes TAKE 2 TABLETS BY MOUTH TWICE DAILY [facility] LEVETIRACET AM 500 mg tablet 0 05-11 00:00: 00 Yes TAKE 2 TABLETS BY MOUTH TWICE DAILY [facility] LEVETIRACET AM 500 mg tablet 0 05-11 00:00: 00 Yes TAKE 2 TABLETS BY MOUTH TWICE DAILY [facility] LEVETIRACET AM 500 mg tablet 0 05-11 00:00: 00 Yes TAKE 2 TABLETS BY MOUTH TWICE DAILY [facility] LEVETIRACET AM 500 mg tablet 2021-0 05-11 00:00: 00 Yes TAKE 2 TABLETS BY MOUTH TWICE DAILY [facility] LEVETIRACET AM 500 mg tablet 2021-0 05-11 00:00: 00 Yes TAKE 2 TABLETS BY MOUTH TWICE DAILY [facility] LEVETIRACET AM 500 mg tablet 0 05-11 00:00: 00 Yes TAKE 2 TABLETS BY MOUTH TWICE DAILY [facility] LEVETIRACET AM 500 mg tablet 0 05-11 00:00: 00 Yes TAKE 2 TABLETS BY MOUTH TWICE DAILY [facility] LEVETIRACET AM 500 mg tablet 2021-0 05-11 00:00: 00 Yes TAKE 2 TABLETS BY MOUTH TWICE DAILY [facility] LEVETIRACET AM 500 mg tablet 2021-0 05-11 00:00: 00 Yes TAKE 2 TABLETS BY MOUTH TWICE DAILY [facility] LEVETIRACET AM 500 mg tablet 2021-0 05-11 00:00: 00 Yes TAKE 2 TABLETS BY MOUTH TWICE DAILY [facility] LEVETIRACET AM 500 mg tablet 0 05-11 00:00: 00 Yes TAKE 2 TABLETS BY MOUTH TWICE DAILY [facility] LEVETIRACET AM 500 mg tablet 2021-0 05-11 00:00: 00 Yes TAKE 2 TABLETS BY MOUTH TWICE DAILY [facility] LEVETIRACET AM 500 mg tablet 0 05-11 00:00: 00 Yes TAKE 2 TABLETS BY MOUTH TWICE DAILY [facility] LEVETIRACET AM 500 mg tablet 0 05-11 00:00: 00 Yes TAKE 2 TABLETS BY MOUTH TWICE DAILY [facility] LEVETIRACET AM 500 mg tablet 2021-0 05-11 00:00: 00 Yes TAKE 2 TABLETS BY MOUTH TWICE DAILY [facility] LEVETIRACET AM 500 mg tablet 2021-0 05-11 00:00: 00 Yes TAKE 2 TABLETS BY MOUTH TWICE DAILY [facility] LEVETIRACET AM 500 mg tablet 2021-0 05-11 00:00: 00 Yes TAKE 2 TABLETS BY MOUTH TWICE DAILY [facility] LEVETIRACET AM 500 mg tablet 2021-0 05-11 00:00: 00 Yes TAKE 2 TABLETS BY MOUTH TWICE DAILY [facility] Cyanocobala min 1,000 mcg tablet 2021-0 330 00:00: 00 Yes 1000ug Take 1 tablet by mouth. [facility] Cyanocobala min 1,000 mcg tablet 2022-0 3-30 00:00: 00 Yes 1000ug Take 1 tablet by mouth. [facility] [place] min 1,000 mcg tablet 2022-0 330 00:00: 00 Yes 1000ug Take 1 tablet by mouth. [facility] [place] min 1,000 mcg tablet 2022-0 3-30 00:00: 00 Yes 1000ug Take 1 tablet by mouth. [facility] [place] min 1,000 mcg tablet 2022-0 3-30 00:00: 00 Yes 1000ug Take 1 tablet by mouth. [facility] [place] min 1,000 mcg tablet 2022-0 330 00:00: 00 Yes 1000ug Take 1 tablet by mouth. [facility] [place] min 1,000 mcg tablet 2022-0 330 00:00: 00 Yes 1000ug Take 1 tablet by mouth. [facility] [place] min 1,000 mcg tablet 2022-0 330 00:00: 00 Yes 1000ug Take 1 tablet by mouth. [facility] [place] min 1,000 mcg tablet 2022-0 330 00:00: 00 Yes 1000ug Take 1 tablet by mouth. [facility] [place] min 1,000 mcg tablet 2022-0 330 00:00: 00 Yes 1000ug Take 1 tablet by mouth. [facility] [place] min 1,000 mcg tablet 2022-0 3-30 00:00: 00 Yes 1000ug Take 1 tablet by mouth. [facility] [place] min 1,000 mcg tablet 2022-0 3-30 00:00: 00 Yes 1000ug Take 1 tablet by mouth. [facility] [place] min 1,000 mcg tablet 2022-0 3-30 00:00: 00 Yes 1000ug Take 1 tablet by mouth. [facility] [place] min 1,000 mcg tablet 2022-0 3-30 00:00: 00 Yes 1000ug Take 1 tablet by mouth. [facility] [place] min 1,000 mcg tablet 2022-0 330 00:00: 00 Yes 1000ug Take 1 tablet by mouth. [facility] [place] min 1,000 mcg tablet 2022-0 330 00:00: 00 Yes 1000ug Take 1 tablet by mouth. [facility] [place] min 1,000 mcg tablet 2022-0 330 00:00: 00 Yes 1000ug Take 1 tablet by mouth. [facility] [place] min 1,000 mcg tablet 2022-0 330 00:00: 00 Yes 1000ug Take 1 tablet by mouth. [facility] [place] min 1,000 mcg tablet 2022-0 330 00:00: 00 Yes 1000ug Take 1 tablet by mouth. [facility] [place] min 1,000 mcg tablet 2022-0 330 00:00: 00 Yes 1000ug Take 1 tablet by mouth. [facility] [place] min 1,000 mcg tablet 2022-0 330 00:00: 00 Yes 1000ug Take 1 tablet by mouth. [facility] [place] min 1,000 mcg tablet 2022-0 330 00:00: 00 Yes 1000ug Take 1 tablet by mouth. [facility] [place] min 1,000 mcg tablet 2022-0 330 00:00: 00 Yes 1000ug Take 1 tablet by mouth. [facility] [place] min 1,000 mcg tablet 2022-0 330 00:00: 00 Yes 1000ug Take 1 tablet by mouth. [facility] [place] min 1,000 mcg tablet 2022-0 330 00:00: 00 Yes 1000ug Take 1 tablet by mouth. [facility] [place] min 1,000 mcg tablet 2022-0 330 00:00: 00 Yes 1000ug Take 1 tablet by mouth. [facility] [place] min 1,000 mcg tablet 2022-0 3-30 00:00: 00 Yes 1000ug Take 1 tablet by mouth. [facility] [place] min 1,000 mcg tablet 2022-0 3-30 00:00: 00 Yes 1000ug Take 1 tablet by mouth. [facility] [place] min 1,000 mcg tablet 2022-0 3-30 00:00: 00 Yes 1000ug Take 1 tablet by mouth. [facility] [place] min 1,000 mcg tablet 2022-0 3-30 00:00: 00 Yes 1000ug Take 1 tablet by mouth. [facility] [place] min 1,000 mcg tablet 2022-0 3-30 00:00: 00 Yes 1000ug Take 1 tablet by mouth. [facility] [place] min 1,000 mcg tablet 2022-0 3-30 00:00: 00 Yes 1000ug Take 1 tablet by mouth. [facility] [place] min 1,000 mcg tablet 2022-0 3-30 00:00: 00 Yes 1000ug Take 1 tablet by mouth. [facility] [place] min 1,000 mcg tablet 2022-0 330 00:00: 00 Yes 1000ug Take 1 tablet by mouth. [facility] [place] min 1,000 mcg tablet 2022-0 3-30 00:00: 00 Yes 1000ug Take 1 tablet by mouth. [facility] [place] min 1,000 mcg tablet 2022-0 3-30 00:00: 00 Yes 1000ug Take 1 tablet by mouth. [facility] [place] min 1,000 mcg tablet 2022-0 3-30 00:00: 00 Yes 1000ug Take 1 tablet by mouth. [facility] [place] min 1,000 mcg tablet 2022-0 3-30 00:00: 00 Yes 1000ug Take 1 tablet by mouth. [facility] [place] min 1,000 mcg tablet 2022-0 3-30 00:00: 00 Yes 1000ug Take 1 tablet by mouth. [facility] [place] min 1,000 mcg tablet 2022-0 3-30 00:00: 00 Yes 1000ug Take 1 tablet by mouth. [facility] [place] min 1,000 mcg tablet 2-0 330 00:00: 00 Yes 1000ug Take 1 tablet by mouth. [facility] [place] min 1,000 mcg tablet 2-0 330 00:00: 00 Yes 1000ug Take 1 tablet by mouth. [facility] [place] min 1,000 mcg tablet 2-0 330 00:00: 00 Yes 1000ug Take 1 tablet by mouth. [facility] [place] min 1,000 mcg tablet 2-0 30 00:00: 00 Yes 1000ug Take 1 tablet by mouth. [facility] cetirizine 10 mg tablet 2021-0 325 00:00: 00 Yes 10mg Take 1 tablet by mouth. [facility] cetirizine 10 mg tablet 2-0 325 00:00: 00 Yes 10mg Take 1 tablet by mouth. [facility] cetirizine 10 mg tablet 2-0 325 00:00: 00 Yes 10mg Take 1 tablet by mouth. [facility] cetirizine 10 mg tablet 2-0 325 00:00: 00 Yes 10mg Take 1 tablet by mouth. [facility] cetirizine 10 mg tablet 2021-0 325 00:00: 00 Yes 10mg Take 1 tablet by mouth. [facility] cetirizine 10 mg tablet 2-0 325 00:00: 00 Yes 10mg Take 1 tablet by mouth. [facility] cetirizine 10 mg tablet 2-0 325 00:00: 00 Yes 10mg Take 1 tablet by mouth. [facility] cetirizine 10 mg tablet 2-0 325 00:00: 00 Yes 10mg Take 1 tablet by mouth. [facility] cetirizine 10 mg tablet 2-0 3-25 00:00: 00 Yes 10mg Take 1 tablet by mouth. [facility] cetirizine 10 mg tablet 2-0 3-25 00:00: 00 Yes 10mg Take 1 tablet by mouth. [facility] cetirizine 10 mg tablet 2021-0 3-25 00:00: 00 Yes 10mg Take 1 tablet by mouth. [facility] cetirizine 10 mg tablet 2-0 3-25 00:00: 00 Yes 10mg Take 1 tablet by mouth. [facility] cetirizine 10 mg tablet 2-0 3-25 00:00: 00 Yes 10mg Take 1 tablet by mouth. [facility] cetirizine 10 mg tablet 2021-0 3-25 00:00: 00 Yes 10mg Take 1 tablet by mouth. [facility] cetirizine 10 mg tablet 2021-0 325 00:00: 00 Yes 10mg Take 1 tablet by mouth. [facility] cetirizine 10 mg tablet 2021-0 25 00:00: 00 Yes 10mg Take 1 tablet by mouth. [facility] cetirizine 10 mg tablet 2021-0 325 00:00: 00 Yes 10mg Take 1 tablet by mouth. [facility] cetirizine 10 mg tablet 2021-0 325 00:00: 00 Yes 10mg Take 1 tablet by mouth. [facility] cetirizine 10 mg tablet 2021-0 25 00:00: 00 Yes 10mg Take 1 tablet by mouth. [facility] cetirizine 10 mg tablet 2-0 325 00:00: 00 Yes 10mg Take 1 tablet by mouth. [facility] cetirizine 10 mg tablet 2021-0 325 00:00: 00 Yes 10mg Take 1 tablet by mouth. [facility] cetirizine 10 mg tablet 2021-0 325 00:00: 00 Yes 10mg Take 1 tablet by mouth. [facility] cetirizine 10 mg tablet 2021-0 3-25 00:00: 00 Yes 10mg Take 1 tablet by mouth. [facility] cetirizine 10 mg tablet 2-0 3-25 00:00: 00 Yes 10mg Take 1 tablet by mouth. [facility] cetirizine 10 mg tablet 2-0 3-25 00:00: 00 Yes 10mg Take 1 tablet by mouth. [facility] cetirizine 10 mg tablet 2-0 3-25 00:00: 00 Yes 10mg Take 1 tablet by mouth. [facility] cetirizine 10 mg tablet 2-0 3-25 00:00: 00 Yes 10mg Take 1 tablet by mouth. [facility] cetirizine 10 mg tablet 2-0 3-25 00:00: 00 Yes 10mg Take 1 tablet by mouth. [facility] cetirizine 10 mg tablet 2-0 3-25 00:00: 00 Yes 10mg Take 1 tablet by mouth. [facility] cetirizine 10 mg tablet 2021-0 3-25 00:00: 00 Yes 10mg Take 1 tablet by mouth. [facility] cetirizine 10 mg tablet 2-0 3-25 00:00: 00 Yes 10mg Take 1 tablet by mouth. [facility] cetirizine 10 mg tablet 2-0 325 00:00: 00 Yes 10mg Take 1 tablet by mouth. [facility] cetirizine 10 mg tablet 2-0 325 00:00: 00 Yes 10mg Take 1 tablet by mouth. [facility] cetirizine 10 mg tablet 2021-0 325 00:00: 00 Yes 10mg Take 1 tablet by mouth. [facility] cetirizine 10 mg tablet 2-0 3-25 00:00: 00 Yes 10mg Take 1 tablet by mouth. [facility] cetirizine 10 mg tablet 2-0 3-25 00:00: 00 Yes 10mg Take 1 tablet by mouth. [facility] cetirizine 10 mg tablet 2-0 3-25 00:00: 00 Yes 10mg Take 1 tablet by mouth. [facility] cetirizine 10 mg tablet 2-0 3-25 00:00: 00 Yes 10mg Take 1 tablet by mouth. [facility] cetirizine 10 mg tablet 2022-0 3-25 00:00: 00 Yes 10mg Take 1 tablet by mouth. [facility] cetirizine 10 mg tablet 2021-0 325 00:00: 00 Yes 10mg Take 1 tablet by mouth. [facility] cetirizine 10 mg tablet 2021-0 325 00:00: 00 Yes 10mg Take 1 tablet by mouth. [facility] cetirizine 10 mg tablet 2021-0 3-25 00:00: 00 Yes 10mg Take 1 tablet by mouth. [facility] cetirizine 10 mg tablet 2021-0 325 00:00: 00 Yes 10mg Take 1 tablet by mouth. [facility] cetirizine 10 mg tablet 2021-0 325 00:00: 00 Yes 10mg Take 1 tablet by mouth. [facility] omeprazole 40 mg capsule 2021-0 1-12 00:00: 00 Yes [id number] 40mg Take 1 capsule by mouth 2 (two) times daily. [facility] omeprazole 40 mg capsule 2021-0 1-12 00:00: 00 Yes [id number] 40mg Take 1 capsule by mouth 2 (two) times daily. [facility] omeprazole 40 mg capsule 2021-0 -12 00:00: 00 Yes [id number] 40mg Take 1 capsule by mouth 2 (two) times daily. [facility] omeprazole 40 mg capsule 2021-0 1-12 00:00: 00 Yes [id number] 40mg Take 1 capsule by mouth 2 (two) times daily. [facility] omeprazole 40 mg capsule 2-0 1-12 00:00: 00 Yes [id number] 40mg Take 1 capsule by mouth 2 (two) times daily. [facility] omeprazole 40 mg capsule 2-0 1-12 00:00: 00 Yes [id number] 40mg Take 1 capsule by mouth 2 (two) times daily. [facility] omeprazole 40 mg capsule 2-0 1-12 00:00: 00 Yes [id number] 40mg Take 1 capsule by mouth 2 (two) times daily. [facility] omeprazole 40 mg capsule 2021-0 -12 00:00: 00 Yes [id number] 40mg Take 1 capsule by mouth 2 (two) times daily. [facility] 2021-0 -12 00:00: 00 Yes [id number] 40mg Take 1 capsule by mouth 2 (two) times daily. [facility] 2021-0 -12 00:00: 00 Yes [id number] 40mg Take 1 capsule by mouth 2 (two) times daily. [facility] mg capsule 2-0 -12 00:00: 00 Yes [id number] 40mg Take 1 capsule by mouth 2 (two) times daily. [facility] 2021-0 -12 00:00: 00 Yes [id number] 40mg Take 1 capsule by mouth 2 (two) times daily. [facility] omeprazole 40 mg capsule 2021-0 -12 00:00: 00 Yes [id number] 40mg Take 1 capsule by mouth 2 (two) times daily. [facility] 2021-0 12 00:00: 00 Yes [id number] 40mg Take 1 capsule by mouth 2 (two) times daily. [facility] omeprazole 40 mg capsule 2021-0 12 00:00: 00 Yes [id number] 40mg Take 1 capsule by mouth 2 (two) times daily. [facility] capsule 2021-0 -12 00:00: 00 Yes [id number] 40mg Take 1 capsule by mouth 2 (two) times daily. [facility] mg capsule 2021-0 -12 00:00: 00 Yes [id number] 40mg Take 1 capsule by mouth 2 (two) times daily. [facility] mg capsule 2-0 -12 00:00: 00 Yes [id number] 40mg Take 1 capsule by mouth 2 (two) times daily. [facility] mg capsule 2-0 -12 00:00: 00 Yes [id number] 40mg Take 1 capsule by mouth 2 (two) times daily. [facility] omeprazole 40 mg capsule 2-0 1-12 00:00: 00 Yes [id number] 40mg Take 1 capsule by mouth 2 (two) times daily. [facility] omeprazole 40 mg capsule 2-0 1-12 00:00: 00 Yes [id number] 40mg Take 1 capsule by mouth 2 (two) times daily. [facility] omeprazole 40 mg capsule 2-0 1-12 00:00: 00 Yes [id number] 40mg Take 1 capsule by mouth 2 (two) times daily. [facility] omeprazole 40 mg capsule 2-0 -12 00:00: 00 Yes [id number] 40mg Take 1 capsule by mouth 2 (two) times daily. [facility] omeprazole 40 mg capsule 2-0 -12 00:00: 00 Yes [id number] 40mg Take 1 capsule by mouth 2 (two) times daily. [facility] omeprazole 40 mg capsule 2-0 -12 00:00: 00 Yes [id number] 40mg Take 1 capsule by mouth 2 (two) times daily. [facility] omeprazole 40 mg capsule 2-0 12 00:00: 00 Yes [id number] 40mg Take 1 capsule by mouth 2 (two) times daily. [facility] omeprazole 40 mg capsule 2-0 -12 00:00: 00 Yes [id number] 40mg Take 1 capsule by mouth 2 (two) times daily. [facility] omeprazole 40 mg capsule 2-0 1-12 00:00: 00 Yes [id number] 40mg Take 1 capsule by mouth 2 (two) times daily. [facility] omeprazole 40 mg capsule 2-0 1-12 00:00: 00 Yes [id number] 40mg Take 1 capsule by mouth 2 (two) times daily. [facility] omeprazole 40 mg capsule 2-0 1-12 00:00: 00 Yes [id number] 40mg Take 1 capsule by mouth 2 (two) times daily. [facility] omeprazole 40 mg capsule 2-0 1-12 00:00: 00 Yes [id number] 40mg Take 1 capsule by mouth 2 (two) times daily. [facility] omeprazole 40 mg capsule 2-0 1-12 00:00: 00 Yes [id number] 40mg Take 1 capsule by mouth 2 (two) times daily. [facility] capsule 2-0 1-12 00:00: 00 Yes [id number] 40mg Take 1 capsule by mouth 2 (two) times daily. [facility] mg capsule 2-0 1-12 00:00: 00 Yes [id number] 40mg Take 1 capsule by mouth 2 (two) times daily. [facility] omeprazole 40 mg capsule 2-0 1-12 00:00: 00 Yes [id number] 40mg Take 1 capsule by mouth 2 (two) times daily. [facility] omeprazole 40 mg capsule 2-0 1-12 00:00: 00 Yes [id number] 40mg Take 1 capsule by mouth 2 (two) times daily. [facility] omeprazole 40 mg capsule 2-0 1-12 00:00: 00 Yes [id number] 40mg Take 1 capsule by mouth 2 (two) times daily. [facility] omeprazole 40 mg capsule 2-0 1-12 00:00: 00 Yes [id number] 40mg Take 1 capsule by mouth 2 (two) times daily. [facility] omeprazole 40 mg capsule 2-0 1-12 00:00: 00 Yes [id number] 40mg Take 1 capsule by mouth 2 (two) times daily. [facility] omeprazole 40 mg capsule 2-0 1-12 00:00: 00 Yes [id number] 40mg Take 1 capsule by mouth 2 (two) times daily. [facility] omeprazole 40 mg capsule 2-0 1-12 00:00: 00 Yes [id number] 40mg Take 1 capsule by mouth 2 (two) times daily. [facility] omeprazole 40 mg capsule 2022-0 1-12 00:00: 00 Yes [id number] 40mg Take 1 capsule by mouth 2 (two) times daily. [facility] omeprazole 40 mg capsule 2-0 1-12 00:00: 00 Yes [id number] 40mg Take 1 capsule by mouth 2 (two) times daily. [facility] mg capsule 2-0 1-12 00:00: 00 Yes [id number] 40mg Take 1 capsule by mouth 2 (two) times daily. [facility] mg capsule 2-0 1-12 00:00: 00 Yes [id number] 40mg Take 1 capsule by mouth 2 (two) times daily. [facility] omeprazole 40 mg capsule 2-0 -12 00:00: 00 Yes [id number] 40mg Take 1 capsule by mouth 2 (two) times daily. [facility] omeprazole 40 mg capsule 2-0 -12 00:00: 00 Yes [id number] 40mg Take 1 capsule by mouth 2 (two) times daily. [facility] omeprazole 40 mg capsule 2-0 -12 00:00: 00 Yes [id number] 40mg Take 1 capsule by mouth 2 (two) times daily. [facility] omeprazole 40 mg capsule 2-0 -12 00:00: 00 Yes [id number] 40mg Take 1 capsule by mouth 2 (two) times daily. [facility] omeprazole 40 mg capsule 2-0 -12 00:00: 00 Yes [id number] 40mg Take 1 capsule by mouth 2 (two) times daily. [facility] omeprazole 40 mg capsule 2-0 -12 00:00: 00 Yes [id number] 40mg Take 1 capsule by mouth 2 (two) times daily. [facility] omeprazole 40 mg capsule 2-0 -12 00:00: 00 Yes [id number] 40mg Take 1 capsule by mouth 2 (two) times daily. [facility] omeprazole 40 mg capsule 2-0 1-12 00:00: 00 Yes [id number] 40mg Take 1 capsule by mouth 2 (two) times daily. [facility] omeprazole 40 mg capsule 2-0 1-12 00:00: 00 Yes [id number] 40mg Take 1 capsule by mouth 2 (two) times daily. [facility] omeprazole 40 mg capsule 2-0 1-12 00:00: 00 Yes [id number] 40mg Take 1 capsule by mouth 2 (two) times daily. [facility] mg capsule 2-0 1-12 00:00: 00 Yes [id number] 40mg Take 1 capsule by mouth 2 (two) times daily. [facility] mg capsule 2-0 1-12 00:00: 00 Yes [id number] 40mg Take 1 capsule by mouth 2 (two) times daily. [facility] omeprazole 40 mg capsule 2-0 -12 00:00: 00 Yes [id number] 40mg Take 1 capsule by mouth 2 (two) times daily. [facility] omeprazole 40 mg capsule 2-0 -12 00:00: 00 Yes [id number] 40mg Take 1 capsule by mouth 2 (two) times daily. [facility] omeprazole 40 mg capsule 2-0 -12 00:00: 00 Yes [id number] 40mg Take 1 capsule by mouth 2 (two) times daily. [facility] omeprazole 40 mg capsule 2-0 -12 00:00: 00 Yes [id number] 40mg Take 1 capsule by mouth 2 (two) times daily. [facility] omeprazole 40 mg capsule 2-0 -12 00:00: 00 Yes [id number] 40mg Take 1 capsule by mouth 2 (two) times daily. [facility] omeprazole 40 mg capsule 2-0 1-12 00:00: 00 Yes [id number] 40mg Take 1 capsule by mouth 2 (two) times daily. [facility] omeprazole 40 mg capsule 2-0 1-12 00:00: 00 Yes [id number] 40mg Take 1 capsule by mouth 2 (two) times daily. [facility] omeprazole 40 mg capsule 2-0 1-12 00:00: 00 Yes [id number] 40mg Take 1 capsule by mouth 2 (two) times daily. [facility] omeprazole 40 mg capsule 2-0 1-12 00:00: 00 Yes [id number] 40mg Take 1 capsule by mouth 2 (two) times daily. [facility] mg capsule 2-0 1-12 00:00: 00 Yes [id number] 40mg Take 1 capsule by mouth 2 (two) times daily. [facility] omeprazole 40 mg capsule 2-0 1-12 00:00: 00 Yes [id number] 40mg Take 1 capsule by mouth 2 (two) times daily. [facility] mg capsule 2-0 1-12 00:00: 00 Yes [id number] 40mg Take 1 capsule by mouth 2 (two) times daily. [facility] mg capsule 2-0 -12 00:00: 00 Yes [id number] 40mg Take 1 capsule by mouth 2 (two) times daily. [facility] mg capsule 2-0 -12 00:00: 00 Yes [id number] 40mg Take 1 capsule by mouth 2 (two) times daily. [facility] 40 mg capsule 2-0 -12 00:00: 00 Yes [id number] 40mg Take 1 capsule by mouth 2 (two) times daily. [facility] 40 mg capsule 2-0 -12 00:00: 00 Yes [id number] 40mg Take 1 capsule by mouth 2 (two) times daily. [facility] omeprazole 40 mg capsule 2-0 1-12 00:00: 00 Yes [id number] 40mg Take 1 capsule by mouth 2 (two) times daily. [facility] omeprazole 40 mg capsule 2-0 1-12 00:00: 00 Yes [id number] 40mg Take 1 capsule by mouth 2 (two) times daily. [facility] mg capsule 2-0 1-12 00:00: 00 Yes [id number] 40mg Take 1 capsule by mouth 2 (two) times daily. [facility] 40 mg capsule 2022-0 1-12 00:00: 00 Yes [id number] 40mg Take 1 capsule by mouth 2 (two) times daily. [facility] 40 mg capsule 2-0 -12 00:00: 00 Yes [id number] 40mg Take 1 capsule by mouth 2 (two) times daily. [facility] omeprazole 40 mg capsule 2-0 1-12 00:00: 00 Yes [id number] 40mg Take 1 capsule by mouth 2 (two) times daily. [facility] mg capsule 2-0 -12 00:00: 00 Yes [id number] 40mg Take 1 capsule by mouth 2 (two) times daily. [facility] 40 mg capsule 2-0 -12 00:00: 00 Yes [id number] 40mg Take 1 capsule by mouth 2 (two) times daily. [facility] 40 mg capsule 2-0 -12 00:00: 00 Yes [id number] 40mg Take 1 capsule by mouth 2 (two) times daily. [facility] omeprazole 40 mg capsule 2-0 -12 00:00: 00 Yes [id number] 40mg Take 1 capsule by mouth 2 (two) times daily. [facility] omeprazole 40 mg capsule 2-0 12 00:00: 00 Yes [id number] 40mg Take 1 capsule by mouth 2 (two) times daily. [facility] omeprazole 40 mg capsule 2-0 -12 00:00: 00 Yes [id number] 40mg Take 1 capsule by mouth 2 (two) times daily. [facility] omeprazole 40 mg capsule 2-0 -12 00:00: 00 Yes [id number] 40mg Take 1 capsule by mouth 2 (two) times daily. [facility] mg capsule 2-0 -12 00:00: 00 Yes [id number] 40mg Take 1 capsule by mouth 2 (two) times daily. [facility] 40 mg capsule 2-0 -12 00:00: 00 Yes [id number] 40mg Take 1 capsule by mouth 2 (two) times daily. [facility] 40 mg capsule 2-0 -12 00:00: 00 Yes [id number] 40mg Take 1 capsule by mouth 2 (two) times daily. [facility] omeprazole 40 mg capsule 0 -12 00:00: 00 Yes [id number] 40mg Take 1 capsule by mouth 2 (two) times daily. [facility] omeprazole 40 mg capsule 0 - 00:00: 00 Yes [id number] 40mg Take 1 capsule by mouth 2 (two) times daily. [facility] omeprazole 40 mg capsule 0 -12 00:00: 00 Yes [id number] 40mg Take 1 capsule by mouth 2 (two) times daily. [facility] omeprazole 40 mg capsule 02-18 00:00: 00 Yes [id number] 40mg Take 1 capsule by mouth 2 (two) times daily. [facility] omeprazole 40 mg capsule 02-18 00:00: 00 Yes [id number] 40mg Take 1 capsule by mouth 2 (two) times daily. [facility] mg capsule 02-18 00:00: 00 Yes [id number] 40mg Take 1 capsule by mouth 2 (two) times daily. [facility] amitriptyli ne 100 mg tablet 2020-02 00:00: 00 Yes 1{tbl} 1 tablet at bedtime. Takes total of 125mg [facility] amitriptyli ne 100 mg tablet 2020-02 00:00: 00 Yes 1{tbl} 1 tablet at bedtime. Takes total [facility] 125mg [facility] amitriptyli ne 100 mg tablet 2020-02 00:00: 00 Yes 1{tbl} 1 tablet at bedtime. Takes total of 125mg [facility] amitriptyli ne 100 mg tablet 2020-02 00:00: 00 Yes 1{tbl} 1 tablet at bedtime. Takes total of 125mg [facility] amitriptyli ne 100 mg tablet 2020-02 00:00: 00 Yes 1{tbl} 1 tablet at bedtime. Takes total of 125mg [facility] amitriptyli ne 100 mg tablet 2020-02 00:00: 00 Yes 1{tbl} 1 tablet at bedtime. Takes total of 125mg [facility] amitriptyli ne 100 mg tablet 2020-02 00:00: 00 Yes 1{tbl} 1 tablet at bedtime. Takes total of 125mg [facility] amitriptyli ne 100 mg tablet 2020-02 00:00: 00 Yes 1{tbl} 1 tablet at bedtime. Takes total of 125mg [facility] amitriptyli ne 100 mg tablet 2020-02 00:00: 00 Yes 1{tbl} 1 tablet at bedtime. Takes total of 125mg [facility] amitriptyli ne 100 mg tablet 2020-02 00:00: 00 Yes 1{tbl} 1 tablet at bedtime. Takes total of 125mg [facility] amitriptyli ne 100 mg tablet 2020-02 00:00: 00 Yes 1{tbl} 1 tablet at bedtime. Takes total of 125mg [facility] amitriptyli ne 100 mg tablet 2020-02 00:00: 00 Yes 1{tbl} 1 tablet at bedtime. Takes total of 125mg [facility] amitriptyli ne 100 mg tablet 2020-02 00:00: 00 Yes 1{tbl} 1 tablet at bedtime. Takes total of 125mg [facility] amitriptyli ne 100 mg tablet 2020-02 00:00: 00 Yes 1{tbl} 1 tablet at bedtime. Takes total of 125mg [facility] amitriptyli ne 100 mg tablet 2020-02 00:00: 00 Yes 1{tbl} 1 tablet at bedtime. Takes total of 125mg [facility] amitriptyli ne 100 mg tablet 2020-02 00:00: 00 Yes 1{tbl} 1 tablet at bedtime. Takes total of 125mg [facility] amitriptyli ne 100 mg tablet 2020-02 00:00: 00 Yes 1{tbl} 1 tablet at bedtime. Takes total of 125mg [facility] amitriptyli ne 100 mg tablet 2020-02 00:00: 00 Yes 1{tbl} 1 tablet at bedtime. Takes total of 125mg [facility] amitriptyli ne 100 mg tablet 2020-02 00:00: 00 Yes 1{tbl} 1 tablet at bedtime. Takes total of 125mg [facility] amitriptyli ne 100 mg tablet 2020-02 00:00: 00 Yes 1{tbl} 1 tablet at bedtime. Takes total of 125mg [facility] amitriptyli ne 100 mg tablet 2020-02 00:00: 00 Yes 1{tbl} 1 tablet at bedtime. Takes total of 125mg [facility] amitriptyli ne 100 mg tablet 2020-02 00:00: 00 Yes 1{tbl} 1 tablet at bedtime. Takes total of 125mg [facility] amitriptyli ne 100 mg tablet 2020-02 00:00: 00 Yes 1{tbl} 1 tablet at bedtime. Takes total of 125mg [facility] amitriptyli ne 100 mg tablet 2020-02 00:00: 00 Yes 1{tbl} 1 tablet at bedtime. Takes total of 125mg [facility] amitriptyli ne 100 mg tablet 2020-02 00:00: 00 Yes 1{tbl} 1 tablet at bedtime. Takes total of 125mg [facility] amitriptyli ne 100 mg tablet 2020-02 00:00: 00 Yes 1{tbl} 1 tablet at bedtime. Takes total of 125mg [facility] amitriptyli ne 100 mg tablet 2020-02 00:00: 00 Yes 1{tbl} 1 tablet at bedtime. Takes total of 125mg [facility] amitriptyli ne 100 mg tablet 2020-02 00:00: 00 Yes 1{tbl} 1 tablet at bedtime. Takes total of 125mg [facility] amitriptyli ne 100 mg tablet 2020-02 00:00: 00 Yes 1{tbl} 1 tablet at bedtime. Takes total of 125mg [facility] amitriptyli ne 100 mg tablet 2020-02 00:00: 00 Yes 1{tbl} 1 tablet at bedtime. Takes total of 125mg [facility] amitriptyli ne 100 mg tablet 2020-02 00:00: 00 Yes 1{tbl} 1 tablet at bedtime. Takes total of 125mg [facility] amitriptyli ne 100 mg tablet 2020-02 00:00: 00 Yes 1{tbl} 1 tablet at bedtime. Takes total of 125mg [facility] amitriptyli ne 100 mg tablet 2020-02 00:00: 00 Yes 1{tbl} 1 tablet at bedtime. Takes total of 125mg [facility] amitriptyli ne 100 mg tablet 2020-02 00:00: 00 Yes 1{tbl} 1 tablet at bedtime. Takes total of 125mg [facility] amitriptyli ne 100 mg tablet 2020-02 00:00: 00 Yes 1{tbl} 1 tablet at bedtime. Takes total of 125mg [facility] amitriptyli ne 100 mg tablet 2020-02 00:00: 00 Yes 1{tbl} 1 tablet at bedtime. Takes total of 125mg [facility] amitriptyli ne 100 mg tablet 2020-02 00:00: 00 Yes 1{tbl} 1 tablet at bedtime. Takes total of 125mg [facility] amitriptyli ne 100 mg tablet 2020-02 00:00: 00 Yes 1{tbl} 1 tablet at bedtime. Takes total of 125mg [facility] amitriptyli ne 100 mg tablet 2020-02 00:00: 00 Yes 1{tbl} 1 tablet at bedtime. Takes total of 125mg [facility] amitriptyli ne 100 mg tablet 2020-02 00:00: 00 Yes 1{tbl} 1 tablet at bedtime. Takes total of 125mg [facility] amitriptyli ne 100 mg tablet 2020-02 00:00: 00 Yes 1{tbl} 1 tablet at bedtime. Takes total of 125mg [facility] amitriptyli ne 100 mg tablet 2020-02 00:00: 00 Yes 1{tbl} 1 tablet at bedtime. Takes total of 125mg [facility] amitriptyli ne 100 mg tablet 2020-02 00:00: 00 Yes 1{tbl} 1 tablet at bedtime. Takes total of 125mg [facility] amitriptyli ne 100 mg tablet 2020-02 00:00: 00 Yes 1{tbl} 1 tablet at bedtime. Takes total of 125mg [facility] amitriptyli ne 100 mg tablet 2020-02 00:00: 00 Yes 1{tbl} 1 tablet at bedtime. Takes total of 125mg [facility] amitriptyli ne 100 mg tablet 2020-02 00:00: 00 Yes 1{tbl} 1 tablet at bedtime. Takes total of 125mg [facility] amitriptyli ne 100 mg tablet 2020-02 00:00: 00 Yes 1{tbl} 1 tablet at bedtime. Takes total of 125mg [facility] amitriptyli ne 100 mg tablet 2020-02 00:00: 00 Yes 1{tbl} 1 tablet at bedtime. Takes total of 125mg [facility] amitriptyli ne 100 mg tablet 2020-02 00:00: 00 Yes 1{tbl} 1 tablet at bedtime. Takes total of 125mg [facility] amitriptyli ne 100 mg tablet 2020-02 00:00: 00 Yes 1{tbl} 1 tablet at bedtime. Takes total of 125mg [facility] amitriptyli ne 100 mg tablet 2020-02 00:00: 00 Yes 1{tbl} 1 tablet at bedtime. Takes total of 125mg [facility] amitriptyli ne 100 mg tablet 2020-02 00:00: 00 Yes 1{tbl} 1 tablet at bedtime. Takes total of 125mg [facility] amitriptyli ne 100 mg tablet 2020-02 00:00: 00 Yes 1{tbl} 1 tablet at bedtime. Takes total of 125mg [facility] amitriptyli ne 100 mg tablet 2020-02 00:00: 00 Yes 1{tbl} 1 tablet at bedtime. Takes total of 125mg [facility] amitriptyli ne 100 mg tablet 2020-02 00:00: 00 Yes 1{tbl} 1 tablet at bedtime. Takes total of 125mg [facility] amitriptyli ne 100 mg tablet 2020-02 00:00: 00 Yes 1{tbl} 1 tablet at bedtime. Takes total of 125mg [facility] amitriptyli ne 100 mg tablet 2020-02 00:00: 00 Yes 1{tbl} 1 tablet at bedtime. Takes total of 125mg [facility] amitriptyli ne 100 mg tablet 2020-02 00:00: 00 Yes 1{tbl} 1 tablet at bedtime. Takes total of 125mg [facility] amitriptyli ne 100 mg tablet 2020-02 00:00: 00 Yes 1{tbl} 1 tablet at bedtime. Takes total of 125mg [facility] amitriptyli ne 100 mg tablet 2020-02 00:00: 00 Yes 1{tbl} 1 tablet at bedtime. Takes total of 125mg [facility] amitriptyli ne 100 mg tablet 2020-02 00:00: 00 Yes 1{tbl} 1 tablet at bedtime. Takes total of 125mg [facility] amitriptyli ne 100 mg tablet 2020-02 00:00: 00 Yes 1{tbl} 1 tablet at bedtime. Takes total of 125mg [facility] amitriptyli ne 100 mg tablet 2020-02 00:00: 00 Yes 1{tbl} 1 tablet at bedtime. Takes total of 125mg [facility] amitriptyli ne 100 mg tablet 2020-02 00:00: 00 Yes 1{tbl} 1 tablet at bedtime. Takes total of 125mg [facility] amitriptyli ne 100 mg tablet 2020-02 00:00: 00 Yes 1{tbl} 1 tablet at bedtime. Takes total of 125mg [facility] amitriptyli ne 100 mg tablet 2020-02 00:00: 00 Yes 1{tbl} 1 tablet at bedtime. Takes total of 125mg [facility] amitriptyli ne 100 mg tablet 2020-02 00:00: 00 Yes 1{tbl} 1 tablet at bedtime. Takes total of 125mg [facility] amitriptyli ne 100 mg tablet 2020-02 00:00: 00 Yes 1{tbl} 1 tablet at bedtime. Takes total of 125mg [facility] amitriptyli ne 100 mg tablet 2020-02 00:00: 00 Yes 1{tbl} 1 tablet at bedtime. Takes total of 125mg [facility] amitriptyli ne 100 mg tablet 2020-02 00:00: 00 Yes 1{tbl} 1 tablet at bedtime. Takes total of 125mg [facility] amitriptyli ne 100 mg tablet 2020-02 00:00: 00 Yes 1{tbl} 1 tablet at bedtime. Takes total of 125mg [facility] amitriptyli ne 100 mg tablet 2020-02 00:00: 00 Yes 1{tbl} 1 tablet at bedtime. Takes total of 125mg [facility] amitriptyli ne 100 mg tablet 2020-02 00:00: 00 Yes 1{tbl} 1 tablet at bedtime. Takes total of 125mg [facility] amitriptyli ne 100 mg tablet 2020-02 00:00: 00 Yes 1{tbl} 1 tablet at bedtime. Takes total of 125mg [facility] amitriptyli ne 100 mg tablet 2020-02 00:00: 00 Yes 1{tbl} 1 tablet at bedtime. Takes total of 125mg [facility] amitriptyli ne 100 mg tablet 2020-02 00:00: 00 Yes 1{tbl} 1 tablet at bedtime. Takes total of 125mg [facility] amitriptyli ne 100 mg tablet 2020-02 00:00: 00 Yes 1{tbl} 1 tablet at bedtime. Takes total of 125mg [facility] amitriptyli ne 100 mg tablet 2020-02 00:00: 00 Yes 1{tbl} 1 tablet at bedtime. Takes total of 125mg [facility] amitriptyli ne 100 mg tablet 2020-02 00:00: 00 Yes 1{tbl} 1 tablet at bedtime. Takes total of 125mg [facility] amitriptyli ne 100 mg tablet 2020-02 00:00: 00 Yes 1{tbl} 1 tablet at bedtime. Takes total of 125mg [facility] amitriptyli ne 100 mg tablet 2020-02 00:00: 00 Yes 1{tbl} 1 tablet at bedtime. Takes total of 125mg [facility] amitriptyli ne 100 mg tablet 2020-02 00:00: 00 Yes 1{tbl} 1 tablet at bedtime. Takes total of 125mg [facility] amitriptyli ne 100 mg tablet 2020-02 00:00: 00 Yes 1{tbl} 1 tablet at bedtime. Takes total of 125mg [facility] amitriptyli ne 100 mg tablet 2020-02 00:00: 00 Yes 1{tbl} 1 tablet at bedtime. Takes total of 125mg [facility] amitriptyli ne 100 mg tablet 2020-02 00:00: 00 Yes 1{tbl} 1 tablet at bedtime. Takes total of 125mg [facility] amitriptyli ne 100 mg tablet 2020-02 00:00: 00 Yes 1{tbl} 1 tablet at bedtime. Takes total of 125mg [facility] amitriptyli ne 100 mg tablet 2020-02 00:00: 00 Yes 1{tbl} 1 tablet at bedtime. Takes total of 125mg [facility] amitriptyli ne 100 mg tablet 2020-02 00:00: 00 Yes 1{tbl} 1 tablet at bedtime. Takes total of 125mg [facility] amitriptyli ne 100 mg tablet 2020-02 00:00: 00 Yes 1{tbl} 1 tablet at bedtime. Takes total of 125mg [facility] amitriptyli ne 100 mg tablet 2020-02 00:00: 00 Yes 1{tbl} 1 tablet at bedtime. Takes total of 125mg [facility] amitriptyli ne 100 mg tablet 2020-02 00:00: 00 Yes 1{tbl} 1 tablet at bedtime. Takes total of 125mg [facility] amitriptyli ne 100 mg tablet 2020-02 00:00: 00 Yes 1{tbl} 1 tablet at bedtime. Takes total of 125mg [facility] amitriptyli ne 100 mg tablet 2020-02 00:00: 00 Yes 1{tbl} 1 tablet at bedtime. Takes total of 125mg [facility] amitriptyli ne 100 mg tablet 2020-02 00:00: 00 Yes 1{tbl} 1 tablet at bedtime. Takes total of 125mg [facility] amitriptyli ne 100 mg tablet 2020-02 00:00: 00 Yes 1{tbl} 1 tablet at bedtime. Takes total of 125mg [facility] clopidogreL 75 mg tablet 2020-02 00:00: 00 Yes 1{tbl} 1 tablet daily. [facility] clopidogreL 75 mg tablet 2020-02 00:00: 00 Yes 1{tbl} 1 tablet daily. [facility] clopidogreL 75 mg tablet 2020-02 00:00: 00 Yes 1{tbl} 1 tablet daily. [facility] clopidogreL 75 mg tablet 2020-02 00:00: 00 Yes 1{tbl} 1 tablet daily. [facility] clopidogreL 75 mg tablet 2020-02 00:00: 00 Yes 1{tbl} 1 tablet daily. [facility] clopidogreL 75 mg tablet 2020-02 00:00: 00 Yes 1{tbl} 1 tablet daily. [facility] clopidogreL 75 mg tablet 2020-02 00:00: 00 Yes 1{tbl} 1 tablet daily. [facility] clopidogreL 75 mg tablet 2020-02 00:00: 00 Yes 1{tbl} 1 tablet daily. [facility] clopidogreL 75 mg tablet 2020-02 00:00: 00 Yes 1{tbl} 1 tablet daily. [facility] clopidogreL 75 mg tablet 2020-02 00:00: 00 Yes 1{tbl} 1 tablet daily. [facility] clopidogreL 75 mg tablet 2020-02 00:00: 00 Yes 1{tbl} 1 tablet daily. [facility] clopidogreL 75 mg tablet 2020-02 00:00: 00 Yes 1{tbl} 1 tablet daily. [facility] clopidogreL 75 mg tablet 2020-02 00:00: 00 Yes 1{tbl} 1 tablet daily. [facility] clopidogreL 75 mg tablet 2020-02 00:00: 00 Yes 1{tbl} 1 tablet daily. [facility] clopidogreL 75 mg tablet 2020-02 00:00: 00 Yes 1{tbl} 1 tablet daily. [facility] clopidogreL 75 mg tablet 2020-02 00:00: 00 Yes 1{tbl} 1 tablet daily. [facility] clopidogreL 75 mg tablet 2020-02 00:00: 00 Yes 1{tbl} 1 tablet daily. [facility] clopidogreL 75 mg tablet 2020-02 00:00: 00 Yes 1{tbl} 1 tablet daily. [facility] clopidogreL 75 mg tablet 2020-02 00:00: 00 Yes 75mg Take 1 tablet in the morning. [facility] clopidogreL 75 mg tablet 2020-02 00:00: 00 Yes 75mg Take 1 tablet in the morning. [facility] clopidogreL 75 mg tablet 2020-02 00:00: 00 Yes 75mg Take 1 tablet in the morning. [facility] clopidogreL 75 mg tablet 2020-02 00:00: 00 Yes 75mg Take 1 tablet in the morning. [facility] clopidogreL 75 mg tablet 2020-02 00:00: 00 Yes 75mg Take 1 tablet in the morning. [facility] clopidogreL 75 mg tablet 2020-02 00:00: 00 Yes 75mg Take 1 tablet in the morning. [facility] clopidogreL 75 mg tablet 2020-02 00:00: 00 Yes 75mg Take 1 tablet in the morning. [facility] clopidogreL 75 mg tablet 2020-02 00:00: 00 Yes 75mg Take 1 tablet in the morning. [facility] clopidogreL 75 mg tablet 2020-02 00:00: 00 Yes 75mg Take 1 tablet in the morning. [facility] clopidogreL 75 mg tablet 2020-02 00:00: 00 Yes 75mg Take 1 tablet in the morning. [facility] clopidogreL 75 mg tablet 2020-02 00:00: 00 Yes 75mg Take 1 tablet in the morning. [facility]02 00:00: 00 Yes 75mg Take 1 tablet in the morning. [facility] clopidogreL 75 mg tablet 2020-02 00:00: 00 Yes 75mg Take 1 tablet in the morning. [facility] 2020-02 00:00: 00 Yes 75mg Take 1 tablet in the morning. [facility] clopidogreL 75 mg tablet 2020-02 00:00: 00 Yes 75mg Take 1 tablet in the morning. [facility] clopidogreL 75 mg tablet 2020-02 00:00: 00 Yes 75mg Take 1 tablet in the morning. [facility] clopidogreL 75 mg tablet 2020-02 00:00: 00 Yes 75mg Take 1 tablet in the morning. [facility] clopidogreL 75 mg tablet 2020-02 00:00: 00 Yes 75mg Take 1 tablet in the morning. [facility] clopidogreL 75 mg tablet 2020-02 00:00: 00 Yes 75mg Take 1 tablet in the morning. [facility] clopidogreL 75 mg tablet 2020-02 00:00: 00 Yes 75mg Take 1 tablet in the morning. [facility] clopidogreL 75 mg tablet 2020-02 00:00: 00 Yes 75mg Take 1 tablet in the morning. [facility] clopidogreL 75 mg tablet 2020-02 00:00: 00 Yes 75mg Take 1 tablet in the morning. [facility] clopidogreL 75 mg tablet 2020-02 00:00: 00 Yes 75mg Take 1 tablet in the morning. [facility] clopidogreL 75 mg tablet 2020-02 00:00: 00 Yes 75mg Take 1 tablet in the morning. [facility] clopidogreL 75 mg tablet 2020-02 00:00: 00 Yes 75mg Take 1 tablet in the morning. [facility] clopidogreL 75 mg tablet 2020-02 00:00: 00 Yes 75mg Take 1 tablet in the morning. [facility] clopidogreL 75 mg tablet 2020-02 00:00: 00 Yes 75mg Take 1 tablet in the morning. [facility] clopidogreL 75 mg tablet 2020-02 00:00: 00 Yes 75mg Take 1 tablet in the morning. [facility] clopidogreL 75 mg tablet 2020-02 00:00: 00 Yes 75mg Take 1 tablet in the morning. [facility] clopidogreL 75 mg tablet 2020-02 00:00: 00 Yes 75mg Take 1 tablet in the morning. [facility] clopidogreL 75 mg tablet 2020-02 00:00: 00 Yes 75mg Take 1 tablet in the morning. [facility] clopidogreL 75 mg tablet 2020-02 00:00: 00 Yes 75mg Take 1 tablet in the morning. [facility] clopidogreL 75 mg tablet 2020-02 00:00: 00 Yes 75mg Take 1 tablet in the morning. [facility] clopidogreL 75 mg tablet 2020-02 00:00: 00 Yes 75mg Take 1 tablet in the morning. [facility] clopidogreL 75 mg tablet 2020-02 00:00: 00 Yes 75mg Take 1 tablet in the morning. [facility] clopidogreL 75 mg tablet 2020-02 00:00: 00 Yes 75mg Take 1 tablet in the morning. [facility] clopidogreL 75 mg tablet 2020-02 00:00: 00 Yes 75mg Take 1 tablet in the morning. [facility] clopidogreL 75 mg tablet 2020-02 00:00: 00 Yes 75mg Take 1 tablet in the morning. [facility] clopidogreL 75 mg tablet 2020-02 00:00: 00 Yes 75mg Take 1 tablet in the morning. [facility] clopidogreL 75 mg tablet 2020-02 00:00: 00 Yes 75mg Take 1 tablet in the morning. [facility] clopidogreL 75 mg tablet 2020-02 00:00: 00 Yes 75mg Take 1 tablet in the morning. [facility] clopidogreL 75 mg tablet 2020-02 00:00: 00 Yes 75mg Take 1 tablet in the morning. [facility] clopidogreL 75 mg tablet 2020-02 00:00: 00 Yes 75mg Take 1 tablet in the morning. [facility] 2020-02 00:00: 00 Yes 75mg Take 1 tablet in the morning. [facility] clopidogreL 75 mg tablet 2020-02 00:00: 00 Yes 75mg Take 1 tablet in the morning. [facility] clopidogreL 75 mg tablet 2020-02 00:00: 00 Yes 75mg Take 1 tablet in the morning. [facility] clopidogreL 75 mg tablet 2020-02 00:00: 00 Yes 75mg Take 1 tablet in the morning. [facility] clopidogreL 75 mg tablet 2020-02 00:00: 00 Yes 75mg Take 1 tablet in the morning. [facility] clopidogreL 75 mg tablet 2020-02 00:00: 00 Yes 75mg Take 1 tablet in the morning. [facility] clopidogreL 75 mg tablet 2020-02 00:00: 00 Yes 75mg Take 1 tablet in the morning. [facility] clopidogreL 75 mg tablet 2020-02 00:00: 00 Yes 75mg Take 1 tablet in the morning. [facility] clopidogreL 75 mg tablet 2020-02 00:00: 00 Yes 75mg Take 1 tablet in the morning. [facility] clopidogreL 75 mg tablet 2020-02 00:00: 00 Yes 75mg Take 1 tablet in the morning. [facility] clopidogreL 75 mg tablet 2020-02 00:00: 00 Yes 75mg Take 1 tablet in the morning. [facility] clopidogreL 75 mg tablet 2020-02 00:00: 00 Yes 75mg Take 1 tablet in the morning. [facility] clopidogreL 75 mg tablet 2020-02 00:00: 00 Yes 75mg Take 1 tablet in the morning. [facility] clopidogreL 75 mg tablet 2020-02 00:00: 00 Yes 75mg Take 1 tablet in the morning. [facility] clopidogreL 75 mg tablet 2020-02 00:00: 00 Yes 75mg Take 1 tablet in the morning. [facility] clopidogreL 75 mg tablet 2020-02 00:00: 00 Yes 75mg Take 1 tablet in the morning. [facility] 2020-02 00:00: 00 Yes 75mg Take 1 tablet in the morning. [facility] mg tablet 2020-02 00:00: 00 Yes 75mg Take 1 tablet in the morning. [facility] clopidogreL 75 mg tablet 2020-02 00:00: 00 Yes 75mg Take 1 tablet in the morning. [facility] clopidogreL 75 mg tablet 2020-02 00:00: 00 Yes 75mg Take 1 tablet in the morning. [facility] clopidogreL 75 mg tablet 2020-02 00:00: 00 Yes 75mg Take 1 tablet in the morning. [facility] clopidogreL 75 mg tablet 2020-02 00:00: 00 Yes 75mg Take 1 tablet in the morning. [facility] clopidogreL 75 mg tablet 2020-02 00:00: 00 Yes 75mg Take 1 tablet in the morning. [facility] clopidogreL 75 mg tablet 2020-02 00:00: 00 Yes 75mg Take 1 tablet in the morning. [facility] clopidogreL 75 mg tablet 2020-02 00:00: 00 Yes 75mg Take 1 tablet in the morning. [facility] clopidogreL 75 mg tablet 2020-02 00:00: 00 Yes 75mg Take 1 tablet in the morning. [facility] clopidogreL 75 mg tablet 2020-02 00:00: 00 Yes 75mg Take 1 tablet in the morning. [facility] clopidogreL 75 mg tablet 2020-02 00:00: 00 Yes 75mg Take 1 tablet in the morning. [facility] clopidogreL 75 mg tablet 2020-02 00:00: 00 Yes 75mg Take 1 tablet in the morning. [facility] clopidogreL 75 mg tablet 2020-02 00:00: 00 Yes 75mg Take 1 tablet in the morning. [facility] clopidogreL 75 mg tablet 2020-02 00:00: 00 Yes 75mg Take 1 tablet in the morning. [facility] clopidogreL 75 mg tablet 2020-02 00:00: 00 Yes 75mg Take 1 tablet in the morning. [facility] clopidogreL 75 mg tablet 2020-02 00:00: 00 Yes 75mg Take 1 tablet in the morning. [facility] clopidogreL 75 mg tablet 2020-02 00:00: 00 Yes 75mg Take 1 tablet in the morning. [facility] tiZANidine 2 mg tablet 2020-02 00:00: 00 Yes 1{tbl} 1 tablet at bedtime. [facility] tiZANidine 2 mg tablet 2020-02 00:00: 00 Yes 1{tbl} 1 tablet at bedtime. [facility] tiZANidine 2 mg tablet 2020-02 00:00: 00 Yes 1{tbl} 1 tablet at bedtime. [facility] tiZANidine 2 mg tablet 2020-02 00:00: 00 Yes 1{tbl} 1 tablet at bedtime. [facility] tiZANidine 2 mg tablet 2020-02 00:00: 00 Yes 1{tbl} 1 tablet at bedtime. [facility] tiZANidine 2 mg tablet 2020-02 00:00: 00 Yes 1{tbl} 1 tablet at bedtime. [facility] tiZANidine 2 mg tablet 2020-02 00:00: 00 Yes 1{tbl} 1 tablet at bedtime. [facility] tiZANidine 2 mg tablet 2020-02 00:00: 00 Yes 1{tbl} 1 tablet at bedtime. [facility] tiZANidine 2 mg tablet 2020-02 00:00: 00 Yes 1{tbl} 1 tablet at bedtime. [facility] tiZANidine 2 mg tablet 2020-02 00:00: 00 Yes 1{tbl} 1 tablet at bedtime. [facility] tiZANidine 2 mg tablet 2020-02 00:00: 00 Yes 1{tbl} 1 tablet at bedtime. [facility] tiZANidine 2 mg tablet 2020-02 00:00: 00 Yes 1{tbl} 1 tablet at bedtime. [facility] tiZANidine 2 mg tablet 2020-02 00:00: 00 Yes 1{tbl} 1 tablet at bedtime. [facility] tiZANidine 2 mg tablet 2020-02 00:00: 00 Yes 1{tbl} 1 tablet at bedtime. [facility] tiZANidine 2 mg tablet 2020-02 00:00: 00 Yes 1{tbl} 1 tablet at bedtime. [facility] tiZANidine 2 mg tablet 2020-02 00:00: 00 Yes 1{tbl} 1 tablet at bedtime. [facility] tiZANidine 2 mg tablet 2020-02 00:00: 00 Yes 1{tbl} 1 tablet at bedtime. [facility] tiZANidine 2 mg tablet 2020-02 00:00: 00 Yes 1{tbl} 1 tablet at bedtime. [facility] tiZANidine 2 mg tablet 2020-02 00:00: 00 Yes 1{tbl} 1 tablet at bedtime. [facility] tiZANidine 2 mg tablet 2020-02 00:00: 00 Yes 1{tbl} 1 tablet at bedtime. [facility] tiZANidine 2 mg tablet 2020-02 00:00: 00 Yes 1{tbl} 1 tablet at bedtime. [facility] tiZANidine 2 mg tablet 2020-02 00:00: 00 Yes 1{tbl} 1 tablet at bedtime. [facility] tiZANidine 2 mg tablet 2020-02 00:00: 00 Yes 2mg 1 tablet at bedtime. [facility] tiZANidine 2 mg tablet 2020-02 00:00: 00 Yes 2mg 1 tablet at bedtime. [facility] tiZANidine 2 mg tablet 2020-02 00:00: 00 Yes 2mg 1 tablet at bedtime. [facility] tiZANidine 2 mg tablet 2020-02 00:00: 00 Yes 2mg 1 tablet at bedtime. [facility] tiZANidine 2 mg tablet 2020-02 00:00: 00 Yes 2mg 1 tablet at bedtime. [facility] tiZANidine 2 mg tablet 2020-02 00:00: 00 Yes 2mg 1 tablet at bedtime. [facility] tiZANidine 2 mg tablet 2020-02 00:00: 00 Yes 2mg 1 tablet at bedtime. [facility] tiZANidine 2 mg tablet 2020-02 00:00: 00 Yes 2mg 1 tablet at bedtime. [facility] tiZANidine 2 mg tablet 2020-02 00:00: 00 Yes 2mg 1 tablet at bedtime. [facility] tiZANidine 2 mg tablet 2020-02 00:00: 00 Yes 2mg 1 tablet at bedtime. [facility] tiZANidine 2 mg tablet 2020-02 00:00: 00 Yes 2mg 1 tablet at bedtime. [facility] tiZANidine 2 mg tablet 2020-02 00:00: 00 Yes 2mg 1 tablet at bedtime. [facility] tiZANidine 2 mg tablet 2020-02 00:00: 00 Yes 2mg 1 tablet at bedtime. [facility] tiZANidine 2 mg tablet 2020-02 00:00: 00 Yes 2mg 1 tablet at bedtime. [facility] tiZANidine 2 mg tablet 2020-02 00:00: 00 Yes 2mg 1 tablet at bedtime. [facility] tiZANidine 2 mg tablet 2020-02 00:00: 00 Yes 2mg 1 tablet at bedtime. [facility] tiZANidine 2 mg tablet 2020-02 00:00: 00 Yes 2mg 1 tablet at bedtime. [facility] tiZANidine 2 mg tablet 2020-02 00:00: 00 Yes 2mg 1 tablet at bedtime. [facility] tiZANidine 2 mg tablet 2020-02 00:00: 00 Yes 2mg 1 tablet at bedtime. [facility] tiZANidine 2 mg tablet 2020-02 00:00: 00 Yes 2mg 1 tablet at bedtime. [facility] tiZANidine 2 mg tablet 2020-02 00:00: 00 Yes 2mg 1 tablet at bedtime. [facility] tiZANidine 2 mg tablet 2020-02 00:00: 00 Yes 2mg 1 tablet at bedtime. [facility] tiZANidine 2 mg tablet 2020-02 00:00: 00 Yes 2mg 1 tablet at bedtime. [facility] tiZANidine 2 mg tablet 2020-02 00:00: 00 Yes 2mg 1 tablet at bedtime. [facility] tiZANidine 2 mg tablet 2020-02 00:00: 00 Yes 2mg 1 tablet at bedtime. [facility] tiZANidine 2 mg tablet 2020-02 00:00: 00 Yes 2mg 1 tablet at bedtime. [facility] tiZANidine 2 mg tablet 2020-02 00:00: 00 Yes 2mg 1 tablet at bedtime. [facility] tiZANidine 2 mg tablet 2020-02 00:00: 00 Yes 2mg 1 tablet at bedtime. [facility] tiZANidine 2 mg tablet 2020-02 00:00: 00 Yes 2mg 1 tablet at bedtime. [facility] tiZANidine 2 mg tablet 2020-02 00:00: 00 Yes 2mg 1 tablet at bedtime. [facility] tiZANidine 2 mg tablet 2020-02 00:00: 00 Yes 2mg 1 tablet at bedtime. [facility] tiZANidine 2 mg tablet 2020-02 00:00: 00 Yes 2mg 1 tablet at bedtime. [facility] tiZANidine 2 mg tablet 2020-02 00:00: 00 Yes 2mg 1 tablet at bedtime. [facility] tiZANidine 2 mg tablet 2020-02 00:00: 00 Yes 2mg 1 tablet at bedtime. [facility] tiZANidine 2 mg tablet 2020-02 00:00: 00 Yes 2mg 1 tablet at bedtime. [facility] tiZANidine 2 mg tablet 2020-02 00:00: 00 Yes 2mg 1 tablet at bedtime. [facility] tiZANidine 2 mg tablet 2020-02 00:00: 00 Yes 2mg 1 tablet at bedtime. [facility] tiZANidine 2 mg tablet 2020-02 00:00: 00 Yes 2mg 1 tablet at bedtime. [facility] tiZANidine 2 mg tablet 2020-02 00:00: 00 Yes 2mg 1 tablet at bedtime. [facility] tiZANidine 2 mg tablet 2020-02 00:00: 00 Yes 2mg 1 tablet at bedtime. [facility] tiZANidine 2 mg tablet 2020-02 00:00: 00 Yes 2mg 1 tablet at bedtime. [facility] tiZANidine 2 mg tablet 2020-02 00:00: 00 Yes 2mg 1 tablet at bedtime. [facility] tiZANidine 2 mg tablet 2020-02 00:00: 00 Yes 2mg 1 tablet at bedtime. [facility] tiZANidine 2 mg tablet 2020-02 00:00: 00 Yes 2mg 1 tablet at bedtime. [facility] tiZANidine 2 mg tablet 2020-02 00:00: 00 Yes 2mg 1 tablet at bedtime. [facility] tiZANidine 2 mg tablet 2020-02 00:00: 00 Yes 2mg 1 tablet at bedtime. [facility] tiZANidine 2 mg tablet 2020-02 00:00: 00 Yes 2mg 1 tablet at bedtime. [facility] tiZANidine 2 mg tablet 2020-02 00:00: 00 Yes 2mg 1 tablet at bedtime. [facility] tiZANidine 2 mg tablet 2020-02 00:00: 00 Yes 2mg 1 tablet at bedtime. [facility] tiZANidine 2 mg tablet 2020-02 00:00: 00 Yes 2mg 1 tablet at bedtime. [facility] tiZANidine 2 mg tablet 2020-02 00:00: 00 Yes 2mg 1 tablet at bedtime. [facility] tiZANidine 2 mg tablet 2020-02 00:00: 00 Yes 2mg 1 tablet at bedtime. [facility] tiZANidine 2 mg tablet 2020-02 00:00: 00 Yes 2mg 1 tablet at bedtime. [facility] tiZANidine 2 mg tablet 2020-02 00:00: 00 Yes 2mg 1 tablet at bedtime. [facility] tiZANidine 2 mg tablet 2020-02 00:00: 00 Yes 2mg 1 tablet at bedtime. [facility] tiZANidine 2 mg tablet 2020-02 00:00: 00 Yes 2mg 1 tablet at bedtime. [facility] tiZANidine 2 mg tablet 2020-02 00:00: 00 Yes 2mg 1 tablet at bedtime. [facility] tiZANidine 2 mg tablet 2020-02 00:00: 00 Yes 2mg 1 tablet at bedtime. [facility] tiZANidine 2 mg tablet 2020-02 00:00: 00 Yes 2mg 1 tablet at bedtime. [facility] tiZANidine 2 mg tablet 2020-02 00:00: 00 Yes 2mg 1 tablet at bedtime. [facility] tiZANidine 2 mg tablet 2020-02 00:00: 00 Yes 2mg 1 tablet at bedtime. [facility] tiZANidine 2 mg tablet 2020-02 00:00: 00 Yes 2mg 1 tablet at bedtime. [facility] tiZANidine 2 mg tablet 2020-02 00:00: 00 Yes 2mg 1 tablet at bedtime. [facility] tiZANidine 2 mg tablet 2020-02 00:00: 00 Yes 2mg 1 tablet at bedtime. [facility] tiZANidine 2 mg tablet 2020-02 00:00: 00 Yes 2mg 1 tablet at bedtime. [facility] tiZANidine 2 mg tablet 2020-02 00:00: 00 Yes 2mg 1 tablet at bedtime. [facility] tiZANidine 2 mg tablet 2020-02 00:00: 00 Yes 2mg 1 tablet at bedtime. [facility] tiZANidine 2 mg tablet 2020-02 00:00: 00 Yes 2mg 1 tablet at bedtime. [facility] tiZANidine 2 mg tablet 2020-02 00:00: 00 Yes 2mg 1 tablet at bedtime. [facility] tiZANidine 2 mg tablet 2020-02 00:00: 00 Yes 2mg 1 tablet at bedtime. [facility] tiZANidine 2 mg tablet 2020-02 00:00: 00 Yes 2mg 1 tablet at bedtime. [facility] tiZANidine 2 mg tablet 2020-02 00:00: 00 Yes 2mg 1 tablet at bedtime. [facility] tiZANidine 2 mg tablet 2020-02 00:00: 00 Yes 2mg 1 tablet at bedtime. [facility] atorvastati n 80 mg tablet 2020-02 00:00: 00 Yes 1{tbl} 1 tablet at bedtime. [facility] atorvastati n 80 mg tablet 2020-02 00:00: 00 Yes 1{tbl} 1 tablet at bedtime. [facility] atorvastati n 80 mg tablet 2020-02 00:00: 00 Yes 1{tbl} 1 tablet at bedtime. [facility] atorvastati n 80 mg tablet 2020-02 00:00: 00 Yes 1{tbl} 1 tablet at bedtime. [facility] atorvastati n 80 mg tablet 2020-02 00:00: 00 Yes 1{tbl} 1 tablet at bedtime. [facility] atorvastati n 80 mg tablet 2020-02 00:00: 00 Yes 1{tbl} 1 tablet at bedtime. [facility] atorvastati n 80 mg tablet 2020-02 00:00: 00 Yes 1{tbl} 1 tablet at bedtime. [facility] atorvastati n 80 mg tablet 2020-02 00:00: 00 Yes 1{tbl} 1 tablet at bedtime. [facility] atorvastati n 80 mg tablet 2020-02 00:00: 00 Yes 1{tbl} 1 tablet at bedtime. [facility] atorvastati n 80 mg tablet 2020-02 00:00: 00 Yes 1{tbl} 1 tablet at bedtime. [facility] atorvastati n 80 mg tablet 2020-02 00:00: 00 Yes 1{tbl} 1 tablet at bedtime. [facility] atorvastati n 80 mg tablet 2020-02 00:00: 00 Yes 1{tbl} 1 tablet at bedtime. [facility] atorvastati n 80 mg tablet 2020-02 00:00: 00 Yes 1{tbl} 1 tablet at bedtime. [facility] atorvastati n 80 mg tablet 2020-02 00:00: 00 Yes 1{tbl} 1 tablet at bedtime. [facility] atorvastati n 80 mg tablet 2020-02 00:00: 00 Yes 1{tbl} 1 tablet at bedtime. [facility] atorvastati n 80 mg tablet 2020-02 00:00: 00 Yes 1{tbl} 1 tablet at bedtime. [facility] atorvastati n 80 mg tablet 2020-02 00:00: 00 Yes 1{tbl} 1 tablet at bedtime. [facility] atorvastati n 80 mg tablet 2020-02 00:00: 00 Yes 1{tbl} 1 tablet at bedtime. [facility] atorvastati n 80 mg tablet 2020-02 00:00: 00 Yes 1{tbl} 1 tablet at bedtime. [facility] atorvastati n 80 mg tablet 2020-02 00:00: 00 Yes 1{tbl} 1 tablet at bedtime. [facility] atorvastati n 80 mg tablet 2020-02 00:00: 00 Yes 1{tbl} 1 tablet at bedtime. [facility] atorvastati n 80 mg tablet 2020-02 00:00: 00 Yes 1{tbl} 1 tablet at bedtime. [facility] atorvastati n 80 mg tablet 2020-02 00:00: 00 Yes 1{tbl} 1 tablet at bedtime. [facility] atorvastati n 80 mg tablet 2020-02 00:00: 00 Yes 1{tbl} 1 tablet at bedtime. [facility] atorvastati n 80 mg tablet 2020-02 00:00: 00 Yes 1{tbl} 1 tablet at bedtime. [facility] atorvastati n 80 mg tablet 2020-02 00:00: 00 Yes 1{tbl} 1 tablet at bedtime. [facility] atorvastati n 80 mg tablet 2020-02 00:00: 00 Yes 1{tbl} 1 tablet at bedtime. [facility] atorvastati n 80 mg tablet 2020-02 00:00: 00 Yes 1{tbl} 1 tablet at bedtime. [facility] atorvastati n 80 mg tablet 2020-02 00:00: 00 Yes 1{tbl} 1 tablet at bedtime. [facility] atorvastati n 80 mg tablet 2020-02 00:00: 00 Yes 1{tbl} 1 tablet at bedtime. [facility] atorvastati n 80 mg tablet 2020-02 00:00: 00 Yes 1{tbl} 1 tablet at bedtime. [facility] atorvastati n 80 mg tablet 2020-02 00:00: 00 Yes 1{tbl} 1 tablet at bedtime. [facility] atorvastati n 80 mg tablet 2020-02 00:00: 00 Yes 1{tbl} 1 tablet at bedtime. [facility] atorvastati n 80 mg tablet 2020-02 00:00: 00 Yes 1{tbl} 1 tablet at bedtime. [facility] atorvastati n 80 mg tablet 2020-02 00:00: 00 Yes 1{tbl} 1 tablet at bedtime. [facility] atorvastati n 80 mg tablet 2020-02 00:00: 00 Yes 1{tbl} 1 tablet at bedtime. [facility] atorvastati n 80 mg tablet 2020-02 00:00: 00 Yes 1{tbl} 1 tablet at bedtime. [facility] atorvastati n 80 mg tablet 2020-02 00:00: 00 Yes 1{tbl} 1 tablet at bedtime. [facility] atorvastati n 80 mg tablet 2020-02 00:00: 00 Yes 1{tbl} 1 tablet at bedtime. [facility] atorvastati n 80 mg tablet 2020-02 00:00: 00 Yes 1{tbl} 1 tablet at bedtime. [facility] atorvastati n 80 mg tablet 2020-02 00:00: 00 Yes 1{tbl} 1 tablet at bedtime. [facility] atorvastati n 80 mg tablet 2020-02 00:00: 00 Yes 1{tbl} 1 tablet at bedtime. [facility] atorvastati n 80 mg tablet 2020-02 00:00: 00 Yes 1{tbl} 1 tablet at bedtime. [facility] atorvastati n 80 mg tablet 2020-02 00:00: 00 Yes 1{tbl} 1 tablet at bedtime. [facility] atorvastati n 80 mg tablet 2020-02 00:00: 00 Yes 1{tbl} 1 tablet at bedtime. [facility] atorvastati n 80 mg tablet 2020-02 00:00: 00 Yes 1{tbl} 1 tablet at bedtime. [facility] atorvastati n 80 mg tablet 2020-02 00:00: 00 Yes 1{tbl} 1 tablet at bedtime. [facility] atorvastati n 80 mg tablet 2020-02 00:00: 00 Yes 1{tbl} 1 tablet at bedtime. [facility] atorvastati n 80 mg tablet 2020-02 00:00: 00 Yes 1{tbl} 1 tablet at bedtime. [facility] atorvastati n 80 mg tablet 2020-02 00:00: 00 Yes 1{tbl} 1 tablet at bedtime. [facility] atorvastati n 80 mg tablet 2020-02 00:00: 00 Yes 1{tbl} 1 tablet at bedtime. [facility] atorvastati n 80 mg tablet 2020-02 00:00: 00 Yes 1{tbl} 1 tablet at bedtime. [facility] atorvastati n 80 mg tablet 2020-02 00:00: 00 Yes 1{tbl} 1 tablet at bedtime. [facility] atorvastati n 80 mg tablet 2020-02 00:00: 00 Yes 1{tbl} 1 tablet at bedtime. [facility] atorvastati n 80 mg tablet 2020-02 00:00: 00 Yes 1{tbl} 1 tablet at bedtime. [facility] atorvastati n 80 mg tablet 2020-02 00:00: 00 Yes 1{tbl} 1 tablet at bedtime. [facility] atorvastati n 80 mg tablet 2020-02 00:00: 00 11-09 00:00 :00 No 1{tbl} 1 tablet at bedtime. [facility] atorvastati n 80 mg tablet 2020-02 00:00: 00 11-09 00:00 :00 No 1{tbl} 1 tablet at bedtime. [facility] multivit-mi n/ferrous fumarate (MULTI VITAMIN ORAL) 05-31 00:00: 00 Yes 1{tbl} Take 1 tablet by mouth. [facility] pyridoxine HCl, vitamin B6, (VITAMIN B-6 ORAL) 05-31 00:00: 00 Yes 1{tbl} Take 1 tablet by mouth. [facility] multivit-mi n/ferrous fumarate (MULTI VITAMIN ORAL) 05-31 00:00: 00 Yes 1{tbl} Take 1 tablet by mouth. [facility] pyridoxine HCl, vitamin B6, (VITAMIN B-6 ORAL) 05-31 00:00: 00 Yes 1{tbl} Take 1 tablet by mouth. [facility] multivit-mi n/ferrous fumarate (MULTI VITAMIN ORAL) 05-31 00:00: 00 Yes 1{tbl} Take 1 tablet by mouth. [facility] pyridoxine HCl, vitamin B6, (VITAMIN B-6 ORAL) 05-31 00:00: 00 Yes 1{tbl} Take 1 tablet by mouth. [facility] multivit-mi n/ferrous fumarate (MULTI VITAMIN ORAL) 05-31 00:00: 00 Yes 1{tbl} Take 1 tablet by mouth. [facility] pyridoxine HCl, vitamin B6, (VITAMIN B-6 ORAL) 05-31 00:00: 00 Yes 1{tbl} Take 1 tablet by mouth. [facility] multivit-mi n/ferrous fumarate (MULTI VITAMIN ORAL) 05-31 00:00: 00 Yes 1{tbl} Take 1 tablet by mouth. [facility] pyridoxine HCl, vitamin B6, (VITAMIN B-6 ORAL) 05-31 00:00: 00 Yes 1{tbl} Take 1 tablet by mouth. [facility] multivit-mi n/ferrous fumarate (MULTI VITAMIN ORAL) 05-31 00:00: 00 Yes 1{tbl} Take 1 tablet by mouth. [facility] pyridoxine HCl, vitamin B6, (VITAMIN B-6 ORAL) 05-31 00:00: 00 Yes 1{tbl} Take 1 tablet by mouth. [facility] multivit-mi n/ferrous fumarate (MULTI VITAMIN ORAL) 05-31 00:00: 00 Yes 1{tbl} Take 1 tablet by mouth. [facility] pyridoxine HCl, vitamin B6, (VITAMIN B-6 ORAL) 05-31 00:00: 00 Yes 1{tbl} Take 1 tablet by mouth. [facility] multivit-mi n/ferrous fumarate (MULTI VITAMIN ORAL) 05-31 00:00: 00 Yes 1{tbl} Take 1 tablet by mouth. [facility] pyridoxine HCl, vitamin B6, (VITAMIN B-6 ORAL) 05-31 00:00: 00 Yes 1{tbl} Take 1 tablet by mouth. [facility] multivit-mi n/ferrous fumarate (MULTI VITAMIN ORAL) 05-31 00:00: 00 Yes 1{tbl} Take 1 tablet by mouth. [facility] pyridoxine HCl, vitamin B6, (VITAMIN B-6 ORAL) 05-31 00:00: 00 Yes 1{tbl} Take 1 tablet by mouth. [facility] multivit-mi n/ferrous fumarate (MULTI VITAMIN ORAL) 05-31 00:00: 00 Yes 1{tbl} Take 1 tablet by mouth. [facility] pyridoxine HCl, vitamin B6, (VITAMIN B-6 ORAL) 05-31 00:00: 00 Yes 1{tbl} Take 1 tablet by mouth. [facility] multivit-mi n/ferrous fumarate (MULTI VITAMIN ORAL) 05-31 00:00: 00 Yes 1{tbl} Take 1 tablet by mouth. [facility] pyridoxine HCl, vitamin B6, (VITAMIN B-6 ORAL) 05-31 00:00: 00 Yes 1{tbl} Take 1 tablet by mouth. [facility] multivit-mi n/ferrous fumarate (MULTI VITAMIN ORAL) 05-31 00:00: 00 Yes 1{tbl} Take 1 tablet by mouth. [facility] pyridoxine HCl, vitamin B6, (VITAMIN B-6 ORAL) 05-31 00:00: 00 Yes 1{tbl} Take 1 tablet by mouth. [facility] multivit-mi n/ferrous fumarate (MULTI VITAMIN ORAL) 05-31 00:00: 00 Yes 1{tbl} Take 1 tablet by mouth. [facility] pyridoxine HCl, vitamin B6, (VITAMIN B-6 ORAL) 05-31 00:00: 00 Yes 1{tbl} Take 1 tablet by mouth. [facility] multivit-mi n/ferrous fumarate (MULTI VITAMIN ORAL) 05-31 00:00: 00 Yes 1{tbl} Take 1 tablet by mouth. [facility] pyridoxine HCl, vitamin B6, (VITAMIN B-6 ORAL) 05-31 00:00: 00 Yes 1{tbl} Take 1 tablet by mouth. [facility] multivit-mi n/ferrous fumarate (MULTI VITAMIN ORAL) 05-31 00:00: 00 Yes 1{tbl} Take 1 tablet by mouth. [facility] pyridoxine HCl, vitamin B6, (VITAMIN B-6 ORAL) 05-31 00:00: 00 Yes 1{tbl} Take 1 tablet by mouth. [facility] multivit-mi n/ferrous fumarate (MULTI VITAMIN ORAL) 05-31 00:00: 00 Yes 1{tbl} Take 1 tablet by mouth. [facility] pyridoxine HCl, vitamin B6, (VITAMIN B-6 ORAL) 05-31 00:00: 00 Yes 1{tbl} Take 1 tablet by mouth. [facility] multivit-mi n/ferrous fumarate (MULTI VITAMIN ORAL) 05-31 00:00: 00 Yes 1{tbl} Take 1 tablet by mouth. [facility] pyridoxine HCl, vitamin B6, (VITAMIN B-6 ORAL) 05-31 00:00: 00 Yes 1{tbl} Take 1 tablet by mouth. [facility] multivit-mi n/ferrous fumarate (MULTI VITAMIN ORAL) 05-31 00:00: 00 Yes 1{tbl} Take 1 tablet by mouth. [facility] pyridoxine HCl, vitamin B6, (VITAMIN B-6 ORAL) 05-31 00:00: 00 Yes 1{tbl} Take 1 tablet by mouth. [facility] multivit-mi n/ferrous fumarate (MULTI VITAMIN ORAL) 05-31 00:00: 00 Yes 1{tbl} Take 1 tablet by mouth. [facility] pyridoxine HCl, vitamin B6, (VITAMIN B-6 ORAL) 05-31 00:00: 00 Yes 1{tbl} Take 1 tablet by mouth. [facility] multivit-mi n/ferrous fumarate (MULTI VITAMIN ORAL) 05-31 00:00: 00 Yes 1{tbl} Take 1 tablet by mouth. [facility] pyridoxine HCl, vitamin B6, (VITAMIN B-6 ORAL) 05-31 00:00: 00 Yes 1{tbl} Take 1 tablet by mouth. [facility] multivit-mi n/ferrous fumarate (MULTI VITAMIN ORAL) 05-31 00:00: 00 Yes 1{tbl} Take 1 tablet by mouth. [facility] pyridoxine HCl, vitamin B6, (VITAMIN B-6 ORAL) 05-31 00:00: 00 Yes 1{tbl} Take 1 tablet by mouth. [facility] multivit-mi n/ferrous fumarate (MULTI VITAMIN ORAL) 05-31 00:00: 00 Yes 1{tbl} Take 1 tablet by mouth. [facility] pyridoxine HCl, vitamin B6, (VITAMIN B-6 ORAL) 05-31 00:00: 00 Yes 1{tbl} Take 1 tablet by mouth. [facility] multivit-mi n/ferrous fumarate (MULTI VITAMIN ORAL) 05-31 00:00: 00 Yes 1{tbl} Take 1 tablet by mouth. [facility] pyridoxine HCl, vitamin B6, (VITAMIN B-6 ORAL) 05-31 00:00: 00 Yes 1{tbl} Take 1 tablet by mouth. [facility] multivit-mi n/ferrous fumarate (MULTI VITAMIN ORAL) 05-31 00:00: 00 Yes 1{tbl} Take 1 tablet by mouth. [facility] pyridoxine HCl, vitamin B6, (VITAMIN B-6 ORAL) 05-31 00:00: 00 Yes 1{tbl} Take 1 tablet by mouth. [facility] multivit-mi n/ferrous fumarate (MULTI VITAMIN ORAL) 05-31 00:00: 00 Yes 1{tbl} Take 1 tablet by mouth. [facility] pyridoxine HCl, vitamin B6, (VITAMIN B-6 ORAL) 05-31 00:00: 00 Yes 1{tbl} Take 1 tablet by mouth. [facility] multivit-mi n/ferrous fumarate (MULTI VITAMIN ORAL) 05-31 00:00: 00 Yes 1{tbl} Take 1 tablet by mouth. [facility] pyridoxine HCl, vitamin B6, (VITAMIN B-6 ORAL) 05-31 00:00: 00 Yes 1{tbl} Take 1 tablet by mouth. [facility] multivit-mi n/ferrous fumarate (MULTI VITAMIN ORAL) 05-31 00:00: 00 Yes 1{tbl} Take 1 tablet by mouth. [facility] pyridoxine HCl, vitamin B6, (VITAMIN B-6 ORAL) 05-31 00:00: 00 Yes 1{tbl} Take 1 tablet by mouth. [facility] multivit-mi n/ferrous fumarate (MULTI VITAMIN ORAL) 05-31 00:00: 00 Yes 1{tbl} Take 1 tablet by mouth. [facility] pyridoxine HCl, vitamin B6, (VITAMIN B-6 ORAL) 05-31 00:00: 00 Yes 1{tbl} Take 1 tablet by mouth. [facility] multivit-mi n/ferrous fumarate (MULTI VITAMIN ORAL) 05-31 00:00: 00 Yes 1{tbl} Take 1 tablet by mouth. [facility] pyridoxine HCl, vitamin B6, (VITAMIN B-6 ORAL) 05-31 00:00: 00 Yes 1{tbl} Take 1 tablet by mouth. [facility] multivit-mi n/ferrous fumarate (MULTI VITAMIN ORAL) 05-31 00:00: 00 Yes 1{tbl} Take 1 tablet by mouth. [facility] pyridoxine HCl, vitamin B6, (VITAMIN B-6 ORAL) 05-31 00:00: 00 Yes 1{tbl} Take 1 tablet by mouth. [facility] multivit-mi n/ferrous fumarate (MULTI VITAMIN ORAL) 05-31 00:00: 00 Yes 1{tbl} Take 1 tablet by mouth. [facility] pyridoxine HCl, vitamin B6, (VITAMIN B-6 ORAL) 05-31 00:00: 00 Yes 1{tbl} Take 1 tablet by mouth. [facility] multivit-mi n/ferrous fumarate (MULTI VITAMIN ORAL) 05-31 00:00: 00 Yes 1{tbl} Take 1 tablet by mouth. [facility] pyridoxine HCl, vitamin B6, (VITAMIN B-6 ORAL) 05-31 00:00: 00 Yes 1{tbl} Take 1 tablet by mouth. [facility] multivit-mi n/ferrous fumarate (MULTI VITAMIN ORAL) 05-31 00:00: 00 Yes 1{tbl} Take 1 tablet by mouth. [facility] pyridoxine HCl, vitamin B6, (VITAMIN B-6 ORAL) 05-31 00:00: 00 Yes 1{tbl} Take 1 tablet by mouth. [facility] multivit-mi n/ferrous fumarate (MULTI VITAMIN ORAL) 05-31 00:00: 00 Yes 1{tbl} Take 1 tablet by mouth. [facility] pyridoxine HCl, vitamin B6, (VITAMIN B-6 ORAL) 05-31 00:00: 00 Yes 1{tbl} Take 1 tablet by mouth. [facility] multivit-mi n/ferrous fumarate (MULTI VITAMIN ORAL) 05-31 00:00: 00 Yes 1{tbl} Take 1 tablet by mouth. [facility] pyridoxine HCl, vitamin B6, (VITAMIN B-6 ORAL) 05-31 00:00: 00 Yes 1{tbl} Take 1 tablet by mouth. [facility] multivit-mi n/ferrous fumarate (MULTI VITAMIN ORAL) 05-31 00:00: 00 Yes 1{tbl} Take 1 tablet by mouth. [facility] pyridoxine HCl, vitamin B6, (VITAMIN B-6 ORAL) 05-31 00:00: 00 Yes 1{tbl} Take 1 tablet by mouth. [facility] multivit-mi n/ferrous fumarate (MULTI VITAMIN ORAL) 05-31 00:00: 00 Yes 1{tbl} Take 1 tablet by mouth. [facility] pyridoxine HCl, vitamin B6, (VITAMIN B-6 ORAL) 05-31 00:00: 00 Yes 1{tbl} Take 1 tablet by mouth. [facility] multivit-mi n/ferrous fumarate (MULTI VITAMIN ORAL) 05-31 00:00: 00 Yes 1{tbl} Take 1 tablet by mouth. [facility] pyridoxine HCl, vitamin B6, (VITAMIN B-6 ORAL) 05-31 00:00: 00 Yes 1{tbl} Take 1 tablet by mouth. [facility] multivit-mi n/ferrous fumarate (MULTI VITAMIN ORAL) 05-31 00:00: 00 Yes 1{tbl} Take 1 tablet by mouth. [facility] pyridoxine HCl, vitamin B6, (VITAMIN B-6 ORAL) 05-31 00:00: 00 Yes 1{tbl} Take 1 tablet by mouth. [facility] multivit-mi n/ferrous fumarate (MULTI VITAMIN ORAL) 05-31 00:00: 00 Yes 1{tbl} Take 1 tablet by mouth. [facility] pyridoxine HCl, vitamin B6, (VITAMIN B-6 ORAL) 05-31 00:00: 00 Yes 1{tbl} Take 1 tablet by mouth. [facility] multivit-mi n/ferrous fumarate (MULTI VITAMIN ORAL) 05-31 00:00: 00 Yes 1{tbl} Take 1 tablet by mouth. [facility] pyridoxine HCl, vitamin B6, (VITAMIN B-6 ORAL) 05-31 00:00: 00 Yes 1{tbl} Take 1 tablet by mouth. [facility] multivit-mi n/ferrous fumarate (MULTI VITAMIN ORAL) 05-31 00:00: 00 Yes 1{tbl} Take 1 tablet by mouth. [facility] pyridoxine HCl, vitamin B6, (VITAMIN B-6 ORAL) 05-31 00:00: 00 Yes 1{tbl} Take 1 tablet by mouth. [facility] multivit-mi n/ferrous fumarate (MULTI VITAMIN ORAL) 05-31 00:00: 00 Yes 1{tbl} Take 1 tablet by mouth. [facility] pyridoxine HCl, vitamin B6, (VITAMIN B-6 ORAL) 05-31 00:00: 00 Yes 1{tbl} Take 1 tablet by mouth. [facility] multivit-mi n/ferrous fumarate (MULTI VITAMIN ORAL) 05-31 00:00: 00 Yes 1{tbl} Take 1 tablet by mouth. [facility] pyridoxine HCl, vitamin B6, (VITAMIN B-6 ORAL) 05-31 00:00: 00 Yes 1{tbl} Take 1 tablet by mouth. [facility] hydrOXYchlo roQUINE 200 mg tablet 11-05 00:00: 00 Yes 200mg Take 200 mg by mouth 2 (two) times daily. [facility] hydrOXYchlo roQUINE 200 mg tablet 11-05 00:00: 00 Yes 200mg Take 200 mg by mouth 2 (two) times daily. [facility] hydrOXYchlo roQUINE 200 mg tablet 11-05 00:00: 00 Yes 200mg Take 200 mg by mouth 2 (two) times daily. [facility] hydrOXYchlo roQUINE 200 mg tablet 11-05 00:00: 00 Yes 200mg Take 200 mg by mouth 2 (two) times daily. [facility] hydrOXYchlo roQUINE 200 mg tablet 11-05 00:00: 00 Yes 200mg Take 200 mg by mouth 2 (two) times daily. [facility] hydrOXYchlo roQUINE 200 mg tablet 11-05 00:00: 00 Yes 200mg Take 200 mg by mouth 2 (two) times daily. [facility] hydrOXYchlo roQUINE 200 mg tablet 11-05 00:00: 00 Yes 200mg Take 200 mg by mouth 2 (two) times daily. [facility] hydrOXYchlo roQUINE 200 mg tablet 11-05 00:00: 00 Yes 200mg Take 200 mg by mouth 2 (two) times daily. [facility] hydrOXYchlo roQUINE 200 mg tablet 11-05 00:00: 00 Yes 200mg Take 200 mg by mouth 2 (two) times daily. [facility] hydrOXYchlo roQUINE 200 mg tablet 11-05 00:00: 00 Yes 200mg Take 200 mg by mouth 2 (two) times daily. [facility] hydrOXYchlo roQUINE 200 mg tablet 11-05 00:00: 00 Yes 200mg Take 200 mg by mouth 2 (two) times daily. [facility] hydrOXYchlo roQUINE 200 mg tablet 11-05 00:00: 00 Yes 200mg Take 200 mg by mouth 2 (two) times daily. [facility] hydrOXYchlo roQUINE 200 mg tablet 11-05 00:00: 00 Yes 200mg Take 200 mg by mouth 2 (two) times daily. [facility] hydrOXYchlo roQUINE 200 mg tablet 11-05 00:00: 00 Yes 200mg Take 200 mg by mouth 2 (two) times daily. [facility] hydrOXYchlo roQUINE 200 mg tablet 11-05 00:00: 00 Yes 200mg Take 200 mg by mouth 2 (two) times daily. [facility] hydrOXYchlo roQUINE 200 mg tablet 11-05 00:00: 00 Yes 200mg Take 200 mg by mouth 2 (two) times daily. [facility] hydrOXYchlo roQUINE 200 mg tablet 11-05 00:00: 00 Yes 200mg Take 200 mg by mouth 2 (two) times daily. [facility] hydrOXYchlo roQUINE 200 mg tablet 11-05 00:00: 00 Yes 200mg Take 200 mg by mouth 2 (two) times daily. [facility] hydrOXYchlo roQUINE 200 mg tablet 11-05 00:00: 00 Yes 200mg Take 200 mg by mouth 2 (two) times daily. [facility] hydrOXYchlo roQUINE 200 mg tablet 11-05 00:00: 00 Yes 200mg Take 200 mg by mouth 2 (two) times daily. [facility] hydrOXYchlo roQUINE 200 mg tablet 11-05 00:00: 00 Yes 200mg Take 200 mg by mouth 2 (two) times daily. [facility] hydrOXYchlo roQUINE 200 mg tablet 11-05 00:00: 00 Yes 200mg Take 200 mg by mouth 2 (two) times daily. [facility] hydrOXYchlo roQUINE 200 mg tablet 11-05 00:00: 00 Yes 200mg Take 200 mg by mouth 2 (two) times daily. [facility] hydrOXYchlo roQUINE 200 mg tablet 11-05 00:00: 00 Yes 200mg Take 200 mg by mouth 2 (two) times daily. [facility] hydrOXYchlo roQUINE 200 mg tablet 11-05 00:00: 00 Yes 200mg Take 200 mg by mouth 2 (two) times daily. [facility] hydrOXYchlo roQUINE 200 mg tablet 11-05 00:00: 00 Yes 200mg Take 200 mg by mouth 2 (two) times daily. [facility] hydrOXYchlo roQUINE 200 mg tablet 11-05 00:00: 00 Yes 200mg Take 200 mg by mouth 2 (two) times daily. [facility] hydrOXYchlo roQUINE 200 mg tablet 11-05 00:00: 00 Yes 200mg Take 200 mg by mouth 2 (two) times daily. [facility] hydrOXYchlo roQUINE 200 mg tablet 11-05 00:00: 00 Yes 200mg Take 200 mg by mouth 2 (two) times daily. [facility] hydrOXYchlo roQUINE 200 mg tablet 11-05 00:00: 00 Yes 200mg Take 200 mg by mouth 2 (two) times daily. [facility] hydrOXYchlo roQUINE 200 mg tablet 11-05 00:00: 00 Yes 200mg Take 200 mg by mouth 2 (two) times daily. [facility] hydrOXYchlo roQUINE 200 mg tablet 11-05 00:00: 00 Yes 200mg Take 200 mg by mouth 2 (two) times daily. [facility] hydrOXYchlo roQUINE 200 mg tablet 11-05 00:00: 00 Yes 200mg Take 200 mg by mouth 2 (two) times daily. [facility] hydrOXYchlo roQUINE 200 mg tablet 11-05 00:00: 00 Yes 200mg Take 200 mg by mouth 2 (two) times daily. [facility] hydrOXYchlo roQUINE 200 mg tablet 11-05 00:00: 00 Yes 200mg Take 200 mg by mouth 2 (two) times daily. [facility] hydrOXYchlo roQUINE 200 mg tablet 11-05 00:00: 00 Yes 200mg Take 200 mg by mouth 2 (two) times daily. [facility] hydrOXYchlo roQUINE 200 mg tablet 11-05 00:00: 00 Yes 200mg Take 200 mg by mouth 2 (two) times daily. [facility] hydrOXYchlo roQUINE 200 mg tablet 11-05 00:00: 00 Yes 200mg Take 200 mg by mouth 2 (two) times daily. [facility] hydrOXYchlo roQUINE 200 mg tablet 11-05 00:00: 00 Yes 200mg Take 200 mg by mouth 2 (two) times daily. [facility] hydrOXYchlo roQUINE 200 mg tablet 11-05 00:00: 00 Yes 200mg Take 200 mg by mouth 2 (two) times daily. [facility] hydrOXYchlo roQUINE 200 mg tablet 11-05 00:00: 00 Yes 200mg Take 200 mg by mouth 2 (two) times daily. [facility] hydrOXYchlo roQUINE 200 mg tablet 11-05 00:00: 00 Yes 200mg Take 200 mg by mouth 2 (two) times daily. [facility] hydrOXYchlo roQUINE 200 mg tablet 11-05 00:00: 00 Yes 200mg Take 200 mg by mouth 2 (two) times daily. [facility] hydrOXYchlo roQUINE 200 mg tablet 11-05 00:00: 00 Yes 200mg Take 200 mg by mouth 2 (two) times daily. [facility] hydrOXYchlo roQUINE 200 mg tablet 11-05 00:00: 00 Yes 200mg Take 200 mg by mouth 2 (two) times daily. [facility] hydrOXYchlo roQUINE 200 mg tablet 11-05 00:00: 00 Yes 200mg Take 200 mg by mouth 2 (two) times daily. [facility] hydrOXYchlo roQUINE 200 mg tablet 11-05 00:00: 00 Yes 200mg Take 200 mg by mouth 2 (two) times daily. [facility] hydrOXYchlo roQUINE 200 mg tablet 11-05 00:00: 00 Yes 200mg Take 200 mg by mouth 2 (two) times daily. [facility] hydrOXYchlo roQUINE 200 mg tablet 11-05 00:00: 00 Yes 200mg Take 200 mg by mouth 2 (two) times daily. [facility] hydrOXYchlo roQUINE 200 mg tablet 11-05 00:00: 00 Yes 200mg Take 200 mg by mouth 2 (two) times daily. [facility] hydrOXYchlo roQUINE 200 mg tablet 11-05 00:00: 00 Yes 200mg Take 200 mg by mouth 2 (two) times daily. [facility] hydrOXYchlo roQUINE 200 mg tablet 11-05 00:00: 00 Yes 200mg Take 200 mg by mouth 2 (two) times daily. [facility] hydrOXYchlo roQUINE 200 mg tablet 11-05 00:00: 00 Yes 200mg Take 200 mg by mouth 2 (two) times daily. [facility] hydrOXYchlo roQUINE 200 mg tablet 11-05 00:00: 00 Yes 200mg Take 200 mg by mouth 2 (two) times daily. [facility] hydrOXYchlo roQUINE 200 mg tablet 11-05 00:00: 00 Yes 200mg Take 200 mg by mouth 2 (two) times daily. [facility] hydrOXYchlo roQUINE 200 mg tablet 11-05 00:00: 00 Yes 200mg Take 200 mg by mouth 2 (two) times daily. [facility] hydrOXYchlo roQUINE 200 mg tablet 11-05 00:00: 00 Yes 200mg Take 200 mg by mouth 2 (two) times daily. [facility] hydrOXYchlo roQUINE 200 mg tablet 11-05 00:00: 00 Yes 200mg Take 200 mg by mouth 2 (two) times daily. [facility] hydrOXYchlo roQUINE 200 mg tablet 11-05 00:00: 00 Yes 200mg Take 200 mg by mouth 2 (two) times daily. [facility] hydrOXYchlo roQUINE 200 mg tablet 11-05 00:00: 00 Yes 200mg Take 200 mg by mouth 2 (two) times daily. [facility] hydrOXYchlo roQUINE 200 mg tablet 11-05 00:00: 00 Yes 200mg Take 200 mg by mouth 2 (two) times daily. [facility] hydrOXYchlo roQUINE 200 mg tablet 11-05 00:00: 00 Yes 200mg Take 200 mg by mouth 2 (two) times daily. [facility] hydrOXYchlo roQUINE 200 mg tablet 11-05 00:00: 00 Yes 200mg Take 200 mg by mouth 2 (two) times daily. [facility] hydrOXYchlo roQUINE 200 mg tablet 11-05 00:00: 00 Yes 200mg Take 200 mg by mouth 2 (two) times daily. [facility] hydrOXYchlo roQUINE 200 mg tablet 11-05 00:00: 00 Yes 200mg Take 200 mg by mouth 2 (two) times daily. [facility] hydrOXYchlo roQUINE 200 mg tablet 11-05 00:00: 00 Yes 200mg Take 200 mg by mouth 2 (two) times daily. [facility] hydrOXYchlo roQUINE 200 mg tablet 11-05 00:00: 00 Yes 200mg Take 200 mg by mouth 2 (two) times daily. [facility] hydrOXYchlo roQUINE 200 mg tablet 11-05 00:00: 00 Yes 200mg Take 200 mg by mouth 2 (two) times daily. [facility] hydrOXYchlo roQUINE 200 mg tablet 11-05 00:00: 00 Yes 200mg Take 200 mg by mouth 2 (two) times daily. [facility] hydrOXYchlo roQUINE 200 mg tablet 11-05 00:00: 00 Yes 200mg Take 200 mg by mouth 2 (two) times daily. [facility] hydrOXYchlo roQUINE 200 mg tablet 11-05 00:00: 00 Yes 200mg Take 200 mg by mouth 2 (two) times daily. [facility] hydrOXYchlo roQUINE 200 mg tablet 11-05 00:00: 00 Yes 200mg Take 200 mg by mouth 2 (two) times daily. [facility] hydrOXYchlo roQUINE 200 mg tablet 11-05 00:00: 00 Yes 200mg Take 200 mg by mouth 2 (two) times daily. [facility] hydrOXYchlo roQUINE 200 mg tablet 11-05 00:00: 00 Yes 200mg Take 200 mg by mouth 2 (two) times daily. [facility] hydrOXYchlo roQUINE 200 mg tablet 11-05 00:00: 00 Yes 200mg Take 200 mg by mouth 2 (two) times daily. [facility] hydrOXYchlo roQUINE 200 mg tablet 11-05 00:00: 00 Yes 200mg Take 200 mg by mouth 2 (two) times daily. [facility] hydrOXYchlo roQUINE 200 mg tablet 11-05 00:00: 00 Yes 200mg Take 200 mg by mouth 2 (two) times daily. [facility] hydrOXYchlo roQUINE 200 mg tablet 11-05 00:00: 00 Yes 200mg Take 200 mg by mouth 2 (two) times daily. [facility] hydrOXYchlo roQUINE 200 mg tablet 11-05 00:00: 00 Yes 200mg Take 200 mg by mouth 2 (two) times daily. [facility] hydrOXYchlo roQUINE 200 mg tablet 11-05 00:00: 00 Yes 200mg Take 200 mg by mouth 2 (two) times daily. [facility] hydrOXYchlo roQUINE 200 mg tablet 11-05 00:00: 00 Yes 200mg Take 200 mg by mouth 2 (two) times daily. [facility] hydrOXYchlo roQUINE 200 mg tablet 11-05 00:00: 00 Yes 200mg Take 200 mg by mouth 2 (two) times daily. [facility] hydrOXYchlo roQUINE 200 mg tablet 11-05 00:00: 00 Yes 200mg Take 200 mg by mouth 2 (two) times daily. [facility] hydrOXYchlo roQUINE 200 mg tablet 11-05 00:00: 00 Yes 200mg Take 200 mg by mouth 2 (two) times daily. [facility] hydrOXYchlo roQUINE 200 mg tablet 11-05 00:00: 00 Yes 200mg Take 200 mg by mouth 2 (two) times daily. [facility] hydrOXYchlo roQUINE 200 mg tablet 11-05 00:00: 00 Yes 200mg Take 200 mg by mouth 2 (two) times daily. [facility] hydrOXYchlo roQUINE 200 mg tablet 11-05 00:00: 00 Yes 200mg Take 200 mg by mouth 2 (two) times daily. [facility] hydrOXYchlo roQUINE 200 mg tablet 11-05 00:00: 00 Yes 200mg Take 200 mg by mouth 2 (two) times daily. [facility] hydrOXYchlo roQUINE 200 mg tablet 11-05 00:00: 00 Yes 200mg Take 200 mg by mouth 2 (two) times daily. [facility] hydrOXYchlo roQUINE 200 mg tablet 11-05 00:00: 00 Yes 200mg Take 200 mg by mouth 2 (two) times daily. [facility] hydrOXYchlo roQUINE 200 mg tablet 11-05 00:00: 00 Yes 200mg Take 200 mg by mouth 2 (two) times daily. [facility] hydrOXYchlo roQUINE 200 mg tablet 11-05 00:00: 00 Yes 200mg Take 200 mg by mouth 2 (two) times daily. [facility] hydrOXYchlo roQUINE 200 mg tablet 11-05 00:00: 00 Yes 200mg Take 200 mg by mouth 2 (two) times daily. [facility] hydrOXYchlo roQUINE 200 mg tablet 11-05 00:00: 00 Yes 200mg Take 200 mg by mouth 2 (two) times daily. [facility] hydrOXYchlo roQUINE 200 mg tablet 11-05 00:00: 00 Yes 200mg Take 200 mg by mouth 2 (two) times daily. [facility] Immunizations Ordered Immunization Name Filled Immunization Name Date Status Comments Source Influenza Virus Vaccine Quad .5 mL IM 6+ MO 2018-01-24 00:00:00 Completed [facility] Influenza Virus Vaccine Quad .5 mL IM 6+ MO 2018-01-24 00:00:00 Completed [facility] Influenza Virus Vaccine Quad .5 mL IM 6+ MO 2018-01-24 00:00:00 Completed [facility] Influenza Virus Vaccine Quad .5 mL IM 6+ MO 2018-01-24 00:00:00 Completed [facility] Influenza Virus Vaccine Quad .5 mL IM 6+ MO 2018-01-24 00:00:00 Completed [facility] Influenza Virus Vaccine Quad .5 mL IM 6+ MO 2018-01-24 00:00:00 Completed [facility] Influenza Virus Vaccine Quad .5 mL IM 6+ MO 2018-01-24 00:00:00 Completed [facility] Influenza Virus Vaccine Quad .5 mL IM 6+ MO 2018-01-24 00:00:00 Completed [facility] Influenza Virus Vaccine Quad .5 mL IM 6+ MO 2018-01-24 00:00:00 Completed [facility] Influenza Virus Vaccine Quad .5 mL IM 6+ MO 2018-01-24 00:00:00 Completed [facility] Influenza Virus Vaccine Quad .5 mL IM 6+ MO 2018-01-24 00:00:00 Completed [facility] Influenza Virus Vaccine Quad .5 mL IM 6+ MO 2018-01-24 00:00:00 Completed [facility] Influenza Virus Vaccine Quad .5 mL IM 6+ MO 2018-01-24 00:00:00 Completed [facility] Influenza Virus Vaccine Quad .5 mL IM 6+ MO 2018-01-24 00:00:00 Completed [facility] Influenza Virus Vaccine Quad .5 mL IM 6+ MO 2018-01-24 00:00:00 Completed [facility] Influenza Virus Vaccine Quad .5 mL IM 6+ MO 2018-01-24 00:00:00 Completed [facility] Influenza Virus Vaccine Quad .5 mL IM 6+ MO 2018-01-24 00:00:00 Completed [facility] Influenza Virus Vaccine Quad .5 mL IM 6+ MO 2018-01-24 00:00:00 Completed [facility] Influenza Virus Vaccine Quad .5 mL IM 6+ MO 2018-01-24 00:00:00 Completed [facility] Influenza Virus Vaccine Quad .5 mL IM 6+ MO 2018-01-24 00:00:00 Completed [facility] Influenza Virus Vaccine Quad .5 mL IM 6+ MO 2018-01-24 00:00:00 Completed [facility] Influenza Virus Vaccine Quad .5 mL IM 6+ MO 2018-01-24 00:00:00 Completed [facility] Influenza Virus Vaccine Quad .5 mL IM 6+ MO 2018-01-24 00:00:00 Completed [facility] Influenza Virus Vaccine Quad .5 mL IM 6+ MO 2018-01-24 00:00:00 Completed [facility] Influenza Virus Vaccine Quad .5 mL IM 6+ MO 2018-01-24 00:00:00 Completed [facility] Influenza Virus Vaccine Quad .5 mL IM 6+ MO 2018-01-24 00:00:00 Completed [facility] Influenza Virus Vaccine Quad .5 mL IM 6+ MO 2018-01-24 00:00:00 Completed [facility] Influenza Virus Vaccine Quad .5 mL IM 6+ MO 2018-01-24 00:00:00 Completed [facility] Influenza Virus Vaccine Quad .5 mL IM 6+ MO 2018-01-24 00:00:00 Completed [facility] Influenza Virus Vaccine Quad .5 mL IM 6+ MO 2018-01-24 00:00:00 Completed [facility] Influenza Virus Vaccine Quad .5 mL IM 6+ MO 2018-01-24 00:00:00 Completed [facility] Influenza Virus Vaccine Quad .5 mL IM 6+ MO 2018-01-24 00:00:00 Completed [facility] Influenza Virus Vaccine Quad .5 mL IM 6+ MO 2018-01-24 00:00:00 Completed [facility] Influenza Virus Vaccine Quad .5 mL IM 6+ MO (FLUZONE/FLULAVAL/F LUARIX) 2018-01-24 00:00:00 Completed [facility] Influenza Virus Vaccine Quad .5 mL IM 6+ MO (FLUZONE/FLULAVAL/F LUARIX) 2018-01-24 00:00:00 Completed [facility] Influenza Virus Vaccine Quad .5 mL IM 6+ MO (FLUZONE/FLULAVAL/F LUARIX) 2018-01-24 00:00:00 Completed [facility] Influenza Virus Vaccine Quad .5 mL IM 6+ MO (FLUZONE/FLULAVAL/F LUARIX) 2018-01-24 00:00:00 Completed [facility] Influenza Virus Vaccine Quad .5 mL IM 6+ MO (FLUZONE/FLULAVAL/F LUARIX) 2018-01-24 00:00:00 Completed [facility] Influenza Virus Vaccine Quad .5 mL IM 6+ MO (FLUZONE/FLULAVAL/F LUARIX) 2018-01-24 00:00:00 Completed [facility] Influenza Virus Vaccine Quad .5 mL IM 6+ MO (FLUZONE/FLULAVAL/F LUARIX) 2018-01-24 00:00:00 Completed [facility] Influenza Virus Vaccine Quad .5 mL IM 6+ MO (FLUZONE/FLULAVAL/F LUARIX) 2018-01-24 00:00:00 Completed [facility] Influenza Virus Vaccine Quad .5 mL IM 6+ MO (FLUZONE/FLULAVAL/F LUARIX) 2018-01-24 00:00:00 Completed [facility] Influenza Virus Vaccine Quad .5 mL IM 6+ MO (FLUZONE/FLULAVAL/F LUARIX) 2018-01-24 00:00:00 Completed [facility] Influenza Virus Vaccine Quad .5 mL IM 6+ MO (FLUZONE/FLULAVAL/F LUARIX) 2018-01-24 00:00:00 Completed [facility] Influenza Virus Vaccine Quad .5 mL IM 6+ MO (FLUZONE/FLULAVAL/F LUARIX) 2018-01-24 00:00:00 Completed [facility] Influenza Virus Vaccine Quad .5 mL IM 6+ MO (FLUZONE/FLULAVAL/F LUARIX) 2018-01-24 00:00:00 Completed [facility] TDAP 2013-02-07 00:00:00 Completed [facility] TDAP 2013-02-07 00:00:00 Completed [facility] TDAP 2013-02-07 00:00:00 Completed [facility] TDAP 2013-02-07 00:00:00 Completed [facility] TDAP 2013-02-07 00:00:00 Completed [facility] TDAP 2013-02-07 00:00:00 Completed [facility] TDAP 2013-02-07 00:00:00 Completed [facility] TDAP 2013-02-07 00:00:00 Completed [facility] TDAP 2013-02-07 00:00:00 Completed [facility] TDAP 2013-02-07 00:00:00 Completed [facility] TDAP 2013-02-07 00:00:00 Completed [facility] TDAP 2013-02-07 00:00:00 Completed [facility] TDAP 2013-02-07 00:00:00 Completed [facility] TDAP 2013-02-07 00:00:00 Completed [facility] TDAP 2013-02-07 00:00:00 Completed [facility] TDAP 2013-02-07 00:00:00 Completed [facility] TDAP 2013-02-07 00:00:00 Completed [facility] TDAP 2013-02-07 00:00:00 Completed [facility] TDAP 2013-02-07 00:00:00 Completed [facility] TDAP 2013-02-07 00:00:00 Completed [facility] TDAP 2013-02-07 00:00:00 Completed [facility] TDAP 2013-02-07 00:00:00 Completed [facility] TDAP 2013-02-07 00:00:00 Completed [facility] TDAP 2013-02-07 00:00:00 Completed [facility] TDAP 2013-02-07 00:00:00 Completed [facility] TDAP 2013-02-07 00:00:00 Completed [facility] TDAP 2013-02-07 00:00:00 Completed [facility] TDAP 2013-02-07 00:00:00 Completed [facility] TDAP 2013-02-07 00:00:00 Completed [facility] TDAP 2013-02-07 00:00:00 Completed [facility] TDAP 2013-02-07 00:00:00 Completed [facility] TDAP 2013-02-07 00:00:00 Completed [facility] TDAP 2013-02-07 00:00:00 Completed [facility] TDAP 2013-02-07 00:00:00 Completed [facility] TDAP 2013-02-07 00:00:00 Completed [facility] TDAP 2013-02-07 00:00:00 Completed [facility] TDAP 2013-02-07 00:00:00 Completed [facility] TDAP 2013-02-07 00:00:00 Completed [facility] TDAP 2013-02-07 00:00:00 Completed [facility] TDAP 2013-02-07 00:00:00 Completed [facility] TDAP 2013-02-07 00:00:00 Completed [facility] TDAP 2013-02-07 00:00:00 Completed [facility] TDAP 2013-02-07 00:00:00 Completed [facility] TDAP 2013-02-07 00:00:00 Completed [facility] TDAP 2013-02-07 00:00:00 Completed [facility] TDAP 2013-02-07 00:00:00 Completed [facility] Pneumococcal Polysaccharide, PPSV23 (PNEUMOVAX) 2012-02-22 00:00:00 Completed [facility] Pneumococcal Polysaccharide, PPSV23 (PNEUMOVAX) 2012-02-22 00:00:00 Completed [facility] Pneumococcal Polysaccharide, PPSV23 (PNEUMOVAX) 2012-02-22 00:00:00 Completed [facility] Pneumococcal Polysaccharide, PPSV23 (PNEUMOVAX) 2012-02-22 00:00:00 Completed [facility] Pneumococcal Polysaccharide, PPSV23 (PNEUMOVAX) 2012-02-22 00:00:00 Completed [facility] Pneumococcal Polysaccharide, PPSV23 (PNEUMOVAX) 2012-02-22 00:00:00 Completed [facility] Pneumococcal Polysaccharide, PPSV23 (PNEUMOVAX) 2012-02-22 00:00:00 Completed [facility] Pneumococcal Polysaccharide, PPSV23 (PNEUMOVAX) 2012-02-22 00:00:00 Completed [facility] Pneumococcal Polysaccharide, PPSV23 (PNEUMOVAX) 2012-02-22 00:00:00 Completed [facility] Pneumococcal Polysaccharide, PPSV23 (PNEUMOVAX) 2012-02-22 00:00:00 Completed [facility] Pneumococcal Polysaccharide, PPSV23 (PNEUMOVAX) 2012-02-22 00:00:00 Completed [facility] Pneumococcal Polysaccharide, PPSV23 (PNEUMOVAX) 2012-02-22 00:00:00 Completed [facility] Pneumococcal Polysaccharide, PPSV23 (PNEUMOVAX) 2012-02-22 00:00:00 Completed [facility] Pneumococcal Polysaccharide, PPSV23 (PNEUMOVAX) 2012-02-22 00:00:00 Completed [facility] Pneumococcal Polysaccharide, PPSV23 (PNEUMOVAX) 2012-02-22 00:00:00 Completed [facility] Pneumococcal Polysaccharide, PPSV23 (PNEUMOVAX) 2012-02-22 00:00:00 Completed [facility] Pneumococcal Polysaccharide, PPSV23 (PNEUMOVAX) 2012-02-22 00:00:00 Completed [facility] Pneumococcal Polysaccharide, PPSV23 (PNEUMOVAX) 2012-02-22 00:00:00 Completed [facility] Pneumococcal Polysaccharide, PPSV23 (PNEUMOVAX) 2012-02-22 00:00:00 Completed [facility] Pneumococcal Polysaccharide, PPSV23 (PNEUMOVAX) 2012-02-22 00:00:00 Completed [facility] Pneumococcal Polysaccharide, PPSV23 (PNEUMOVAX) 2012-02-22 00:00:00 Completed [facility] Pneumococcal Polysaccharide, PPSV23 (PNEUMOVAX) 2012-02-22 00:00:00 Completed [facility] Pneumococcal Polysaccharide, PPSV23 (PNEUMOVAX) 2012-02-22 00:00:00 Completed [facility] Pneumococcal Polysaccharide, PPSV23 (PNEUMOVAX) 2012-02-22 00:00:00 Completed [facility] Pneumococcal Polysaccharide, PPSV23 (PNEUMOVAX) 2012-02-22 00:00:00 Completed [facility] Pneumococcal Polysaccharide, PPSV23 (PNEUMOVAX) 2012-02-22 00:00:00 Completed [facility] Pneumococcal Polysaccharide, PPSV23 (PNEUMOVAX) 2012-02-22 00:00:00 Completed [facility] Pneumococcal Polysaccharide, PPSV23 (PNEUMOVAX) 2012-02-22 00:00:00 Completed [facility] Pneumococcal Polysaccharide, PPSV23 (PNEUMOVAX) 2012-02-22 00:00:00 Completed [facility] Pneumococcal Polysaccharide, PPSV23 (PNEUMOVAX) 2012-02-22 00:00:00 Completed [facility] Pneumococcal Polysaccharide, PPSV23 (PNEUMOVAX) 2012-02-22 00:00:00 Completed [facility] Pneumococcal Polysaccharide, PPSV23 (PNEUMOVAX) 2012-02-22 00:00:00 Completed [facility] Pneumococcal Polysaccharide, PPSV23 (PNEUMOVAX) 2012-02-22 00:00:00 Completed [facility] Pneumococcal Polysaccharide, PPSV23 (PNEUMOVAX) 2012-02-22 00:00:00 Completed [facility] Pneumococcal Polysaccharide, PPSV23 (PNEUMOVAX) 2012-02-22 00:00:00 Completed [facility] Pneumococcal Polysaccharide, PPSV23 (PNEUMOVAX) 2012-02-22 00:00:00 Completed [facility] Pneumococcal Polysaccharide, PPSV23 (PNEUMOVAX) 2012-02-22 00:00:00 Completed [facility] Pneumococcal Polysaccharide, PPSV23 (PNEUMOVAX) 2012-02-22 00:00:00 Completed [facility] Pneumococcal Polysaccharide, PPSV23 (PNEUMOVAX) 2012-02-22 00:00:00 Completed [facility] Pneumococcal Polysaccharide, PPSV23 (PNEUMOVAX) 2012-02-22 00:00:00 Completed [facility] Pneumococcal Polysaccharide, PPSV23 (PNEUMOVAX) 2012-02-22 00:00:00 Completed [facility] Pneumococcal Polysaccharide, PPSV23 (PNEUMOVAX) 2012-02-22 00:00:00 Completed [facility] Pneumococcal Polysaccharide, PPSV23 (PNEUMOVAX) 2012-02-22 00:00:00 Completed [facility] Pneumococcal Polysaccharide, PPSV23 (PNEUMOVAX) 2012-02-22 00:00:00 Completed [facility] Pneumococcal Polysaccharide, PPSV23 (PNEUMOVAX) 2012-02-22 00:00:00 Completed [facility] Pneumococcal Polysaccharide, PPSV23 (PNEUMOVAX) 2012-02-22 00:00:00 Completed [facility] Influenza Virus Vaccine (3+ yrs) 2010-11-07 00:00:00 Completed [facility] Influenza Virus Vaccine (3+ yrs) 2010-11-07 00:00:00 Completed [facility] Influenza Virus Vaccine (3+ yrs) 2010-11-07 00:00:00 Completed [facility] Influenza Virus Vaccine (3+ yrs) 2010-11-07 00:00:00 Completed [facility] Influenza Virus Vaccine (3+ yrs) 2010-11-07 00:00:00 Completed [facility] Influenza Virus Vaccine (3+ yrs) 2010-11-07 00:00:00 Completed [facility] Influenza Virus Vaccine (3+ yrs) 2010-11-07 00:00:00 Completed [facility] Influenza Virus Vaccine (3+ yrs) 2010-11-07 00:00:00 Completed [facility] Influenza Virus Vaccine (3+ yrs) 2010-11-07 00:00:00 Completed [facility] Influenza Virus Vaccine (3+ yrs) 2010-11-07 00:00:00 Completed [facility] Influenza Virus Vaccine (3+ yrs) 2010-11-07 00:00:00 Completed [facility] Influenza Virus Vaccine (3+ yrs) 2010-11-07 00:00:00 Completed [facility] Influenza Virus Vaccine (3+ yrs) 2010-11-07 00:00:00 Completed [facility] Influenza Virus Vaccine (3+ yrs) 2010-11-07 00:00:00 Completed [facility] Influenza Virus Vaccine (3+ yrs) 2010-11-07 00:00:00 Completed [facility] Influenza Virus Vaccine (3+ yrs) 2010-11-07 00:00:00 Completed [facility] Influenza Virus Vaccine (3+ yrs) 2010-11-07 00:00:00 Completed [facility] Influenza Virus Vaccine (3+ yrs) 2010-11-07 00:00:00 Completed [facility] Influenza Virus Vaccine (3+ yrs) 2010-11-07 00:00:00 Completed [facility] Influenza Virus Vaccine (3+ yrs) 2010-11-07 00:00:00 Completed [facility] Influenza Virus Vaccine (3+ yrs) 2010-11-07 00:00:00 Completed [facility] Influenza Virus Vaccine (3+ yrs) 2010-11-07 00:00:00 Completed [facility] Influenza Virus Vaccine (3+ yrs) 2010-11-07 00:00:00 Completed [facility] Influenza Virus Vaccine (3+ yrs) 2010-11-07 00:00:00 Completed [facility] Influenza Virus Vaccine (3+ yrs) 2010-11-07 00:00:00 Completed [facility] Influenza Virus Vaccine (3+ yrs) 2010-11-07 00:00:00 Completed [facility] Influenza Virus Vaccine (3+ yrs) 2010-11-07 00:00:00 Completed [facility] Influenza Virus Vaccine (3+ yrs) 2010-11-07 00:00:00 Completed [facility] Influenza Virus Vaccine (3+ yrs) 2010-11-07 00:00:00 Completed [facility] Influenza Virus Vaccine (3+ yrs) 2010-11-07 00:00:00 Completed [facility] Influenza Virus Vaccine (3+ yrs) 2010-11-07 00:00:00 Completed [facility] Influenza Virus Vaccine (3+ yrs) 2010-11-07 00:00:00 Completed [facility] Influenza Virus Vaccine (3+ yrs) 2010-11-07 00:00:00 Completed [facility] Influenza Virus Vaccine (3+ yrs) 2010-11-07 00:00:00 Completed [facility] Influenza Virus Vaccine (3+ yrs) 2010-11-07 00:00:00 Completed [facility] Influenza Virus Vaccine (3+ yrs) 2010-11-07 00:00:00 Completed [facility] Influenza Virus Vaccine (3+ yrs) 2010-11-07 00:00:00 Completed [facility] Influenza Virus Vaccine (3+ yrs) 2010-11-07 00:00:00 Completed [facility] Influenza Virus Vaccine (3+ yrs) 2010-11-07 00:00:00 Completed [facility] Influenza Virus Vaccine (3+ yrs) 2010-11-07 00:00:00 Completed [facility] Influenza Virus Vaccine (3+ yrs) 2010-11-07 00:00:00 Completed [facility] Influenza Virus Vaccine (3+ yrs) 2010-11-07 00:00:00 Completed [facility] Influenza Virus Vaccine (3+ yrs) 2010-11-07 00:00:00 Completed [facility] Influenza Virus Vaccine (3+ yrs) 2010-11-07 00:00:00 Completed [facility] Influenza Virus Vaccine (3+ yrs) 2010-11-07 00:00:00 Completed [facility] Influenza Virus Vaccine (3+ yrs) 2010-11-07 00:00:00 Completed [facility] Pneumococcal Polysaccharide, PPSV23 (PNEUMOVAX) 2006-11-14 00:00:00 Completed [facility] Pneumococcal Polysaccharide, PPSV23 (PNEUMOVAX) 2006-11-14 00:00:00 Completed [facility] Pneumococcal Polysaccharide, PPSV23 (PNEUMOVAX) 2006-11-14 00:00:00 Completed [facility] Pneumococcal Polysaccharide, PPSV23 (PNEUMOVAX) 2006-11-14 00:00:00 Completed [facility] Pneumococcal Polysaccharide, PPSV23 (PNEUMOVAX) 2006-11-14 00:00:00 Completed [facility] Pneumococcal Polysaccharide, PPSV23 (PNEUMOVAX) 2006-11-14 00:00:00 Completed [facility] Pneumococcal Polysaccharide, PPSV23 (PNEUMOVAX) 2006-11-14 00:00:00 Completed [facility] Pneumococcal Polysaccharide, PPSV23 (PNEUMOVAX) 2006-11-14 00:00:00 Completed [facility] Pneumococcal Polysaccharide, PPSV23 (PNEUMOVAX) 2006-11-14 00:00:00 Completed [facility] Pneumococcal Polysaccharide, PPSV23 (PNEUMOVAX) 2006-11-14 00:00:00 Completed [facility] Pneumococcal Polysaccharide, PPSV23 (PNEUMOVAX) 2006-11-14 00:00:00 Completed [facility] Pneumococcal Polysaccharide, PPSV23 (PNEUMOVAX) 2006-11-14 00:00:00 Completed [facility] Pneumococcal Polysaccharide, PPSV23 (PNEUMOVAX) 2006-11-14 00:00:00 Completed [facility] Pneumococcal Polysaccharide, PPSV23 (PNEUMOVAX) 2006-11-14 00:00:00 Completed [facility] Pneumococcal Polysaccharide, PPSV23 (PNEUMOVAX) 2006-11-14 00:00:00 Completed [facility] Pneumococcal Polysaccharide, PPSV23 (PNEUMOVAX) 2006-11-14 00:00:00 Completed [facility] Pneumococcal Polysaccharide, PPSV23 (PNEUMOVAX) 2006-11-14 00:00:00 Completed [facility] Pneumococcal Polysaccharide, PPSV23 (PNEUMOVAX) 2006-11-14 00:00:00 Completed [facility] Pneumococcal Polysaccharide, PPSV23 (PNEUMOVAX) 2006-11-14 00:00:00 Completed [facility] Pneumococcal Polysaccharide, PPSV23 (PNEUMOVAX) 2006-11-14 00:00:00 Completed [facility] Pneumococcal Polysaccharide, PPSV23 (PNEUMOVAX) 2006-11-14 00:00:00 Completed [facility] Pneumococcal Polysaccharide, PPSV23 (PNEUMOVAX) 2006-11-14 00:00:00 Completed [facility] Pneumococcal Polysaccharide, PPSV23 (PNEUMOVAX) 2006-11-14 00:00:00 Completed [facility] Pneumococcal Polysaccharide, PPSV23 (PNEUMOVAX) 2006-11-14 00:00:00 Completed [facility] Pneumococcal Polysaccharide, PPSV23 (PNEUMOVAX) 2006-11-14 00:00:00 Completed [facility] Pneumococcal Polysaccharide, PPSV23 (PNEUMOVAX) 2006-11-14 00:00:00 Completed [facility] Pneumococcal Polysaccharide, PPSV23 (PNEUMOVAX) 2006-11-14 00:00:00 Completed [facility] Pneumococcal Polysaccharide, PPSV23 (PNEUMOVAX) 2006-11-14 00:00:00 Completed [facility] Pneumococcal Polysaccharide, PPSV23 (PNEUMOVAX) 2006-11-14 00:00:00 Completed [facility] Pneumococcal Polysaccharide, PPSV23 (PNEUMOVAX) 2006-11-14 00:00:00 Completed [facility] Pneumococcal Polysaccharide, PPSV23 (PNEUMOVAX) 2006-11-14 00:00:00 Completed [facility] Pneumococcal Polysaccharide, PPSV23 (PNEUMOVAX) 2006-11-14 00:00:00 Completed [facility] Pneumococcal Polysaccharide, PPSV23 (PNEUMOVAX) 2006-11-14 00:00:00 Completed [facility] Pneumococcal Polysaccharide, PPSV23 (PNEUMOVAX) 2006-11-14 00:00:00 Completed [facility] Pneumococcal Polysaccharide, PPSV23 (PNEUMOVAX) 2006-11-14 00:00:00 Completed [facility] Pneumococcal Polysaccharide, PPSV23 (PNEUMOVAX) 2006-11-14 00:00:00 Completed [facility] Pneumococcal Polysaccharide, PPSV23 (PNEUMOVAX) 2006-11-14 00:00:00 Completed [facility] Pneumococcal Polysaccharide, PPSV23 (PNEUMOVAX) 2006-11-14 00:00:00 Completed [facility] Pneumococcal Polysaccharide, PPSV23 (PNEUMOVAX) 2006-11-14 00:00:00 Completed [facility] Pneumococcal Polysaccharide, PPSV23 (PNEUMOVAX) 2006-11-14 00:00:00 Completed [facility] Pneumococcal Polysaccharide, PPSV23 (PNEUMOVAX) 2006-11-14 00:00:00 Completed [facility] Pneumococcal Polysaccharide, PPSV23 (PNEUMOVAX) 2006-11-14 00:00:00 Completed [facility] Pneumococcal Polysaccharide, PPSV23 (PNEUMOVAX) 2006-11-14 00:00:00 Completed [facility] Pneumococcal Polysaccharide, PPSV23 (PNEUMOVAX) 2006-11-14 00:00:00 Completed [facility] Pneumococcal Polysaccharide, PPSV23 (PNEUMOVAX) 2006-11-14 00:00:00 Completed [facility] Pneumococcal Polysaccharide, PPSV23 (PNEUMOVAX) 2006-11-14 00:00:00 Completed [facility] Influenza Virus Vaccine Quad .5 mL IM 6+ MO (FLUZONE/FLULAVAL/F LUARIX) Unknown Completed [facility] Pneumococcal Polysaccharide, PPSV23 (PNEUMOVAX) Unknown Completed [facility] TDAP Unknown Completed [facility] Influenza Virus Vaccine (3+ yrs) Unknown Completed [facility] Pneumococcal Polysaccharide, PPSV23 (PNEUMOVAX) Unknown Completed [facility] Influenza Virus Vaccine Quad .5 mL IM 6+ MO (FLUZONE/FLULAVAL/F LUARIX) Unknown Completed [facility] Pneumococcal Polysaccharide, PPSV23 (PNEUMOVAX) Unknown Completed [facility] TDAP Unknown Completed [facility] Influenza Virus Vaccine (3+ yrs) Unknown Completed [facility] Pneumococcal Polysaccharide, PPSV23 (PNEUMOVAX) Unknown Completed [facility] Influenza Virus Vaccine Quad .5 mL IM 6+ MO (FLUZONE/FLULAVAL/F LUARIX) Unknown Completed [facility] Pneumococcal Polysaccharide, PPSV23 (PNEUMOVAX) Unknown Completed [facility] TDAP Unknown Completed [facility] Influenza Virus Vaccine (3+ yrs) Unknown Completed [facility] Pneumococcal Polysaccharide, PPSV23 (PNEUMOVAX) Unknown Completed [facility] Influenza Virus Vaccine Quad .5 mL IM 6+ MO (FLUZONE/FLULAVAL/F LUARIX) Unknown Completed [facility] Pneumococcal Polysaccharide, PPSV23 (PNEUMOVAX) Unknown Completed [facility] TDAP Unknown Completed [facility] Influenza Virus Vaccine (3+ yrs) Unknown Completed [facility] Pneumococcal Polysaccharide, PPSV23 (PNEUMOVAX) Unknown Completed [facility] Influenza Virus Vaccine Quad .5 mL IM 6+ MO (FLUZONE/FLULAVAL/F LUARIX) Unknown Completed [facility] Pneumococcal Polysaccharide, PPSV23 (PNEUMOVAX) Unknown Completed [facility] TDAP Unknown Completed [facility] Influenza Virus Vaccine (3+ yrs) Unknown Completed [facility] Pneumococcal Polysaccharide, PPSV23 (PNEUMOVAX) Unknown Completed [facility] Influenza Virus Vaccine Quad .5 mL IM 6+ MO (FLUZONE/FLULAVAL/F LUARIX) Unknown Completed [facility] Pneumococcal Polysaccharide, PPSV23 (PNEUMOVAX) Unknown Completed [facility] TDAP Unknown Completed [facility] Influenza Virus Vaccine (3+ yrs) Unknown Completed [facility] Pneumococcal Polysaccharide, PPSV23 (PNEUMOVAX) Unknown Completed [facility] Influenza Virus Vaccine Quad .5 mL IM 6+ MO (FLUZONE/FLULAVAL/F LUARIX) Unknown Completed [facility] Pneumococcal Polysaccharide, PPSV23 (PNEUMOVAX) Unknown Completed [facility] TDAP Unknown Completed [facility] Influenza Virus Vaccine (3+ yrs) Unknown Completed [facility] Pneumococcal Polysaccharide, PPSV23 (PNEUMOVAX) Unknown Completed [facility] Influenza Virus Vaccine Quad .5 mL IM 6+ MO (FLUZONE/FLULAVAL/F LUARIX) Unknown Completed [facility] Pneumococcal Polysaccharide, PPSV23 (PNEUMOVAX) Unknown Completed [facility] TDAP Unknown Completed [facility] Influenza Virus Vaccine (3+ yrs) Unknown Completed [facility] Pneumococcal Polysaccharide, PPSV23 (PNEUMOVAX) Unknown Completed [facility] Influenza Virus Vaccine Quad .5 mL IM 6+ MO (FLUZONE/FLULAVAL/F LUARIX) Unknown Completed [facility] Pneumococcal Polysaccharide, PPSV23 (PNEUMOVAX) Unknown Completed [facility] TDAP Unknown Completed [facility] Influenza Virus Vaccine (3+ yrs) Unknown Completed [facility] Pneumococcal Polysaccharide, PPSV23 (PNEUMOVAX) Unknown Completed [facility] Influenza Virus Vaccine Quad .5 mL IM 6+ MO (FLUZONE/FLULAVAL/F LUARIX) Unknown Completed [facility] Pneumococcal Polysaccharide, PPSV23 (PNEUMOVAX) Unknown Completed [facility] TDAP Unknown Completed [facility] Influenza Virus Vaccine (3+ yrs) Unknown Completed [facility] Pneumococcal Polysaccharide, PPSV23 (PNEUMOVAX) Unknown Completed [facility] Influenza Virus Vaccine Quad .5 mL IM 6+ MO (FLUZONE/FLULAVAL/F LUARIX) Unknown Completed [facility] Pneumococcal Polysaccharide, PPSV23 (PNEUMOVAX) Unknown Completed [facility] TDAP Unknown Completed [facility] Influenza Virus Vaccine (3+ yrs) Unknown Completed [facility] Pneumococcal Polysaccharide, PPSV23 (PNEUMOVAX) Unknown Completed [facility] SARS-COV-2 COVID-19 PFIZER VACCINE Unknown Completed [facility] Influenza Virus Vaccine Quad .5 mL IM 6+ MO (FLUZONE/FLULAVAL/F LUARIX) Unknown Completed [facility] Influenza Virus Vaccine Quad .5 mL IM 6+ MO (FLUZONE/FLULAVAL/F LUARIX) Unknown Completed [facility] Pneumococcal Polysaccharide, PPSV23 (PNEUMOVAX) Unknown Completed [facility] TDAP Unknown Completed [facility] Influenza Virus Vaccine (3+ yrs) Unknown Completed [facility] Pneumococcal Polysaccharide, PPSV23 (PNEUMOVAX) Unknown Completed [facility] SARS-COV-2 COVID-19 PFIZER VACCINE Unknown Completed [facility] Influenza Virus Vaccine Quad .5 mL IM 6+ MO (FLUZONE/FLULAVAL/F LUARIX) Unknown Completed [facility] Influenza Virus Vaccine Quad .5 mL IM 6+ MO (FLUZONE/FLULAVAL/F LUARIX) Unknown Completed [facility] Pneumococcal Polysaccharide, PPSV23 (PNEUMOVAX) Unknown Completed [facility] TDAP Unknown Completed [facility] Influenza Virus Vaccine (3+ yrs) Unknown Completed [facility] Pneumococcal Polysaccharide, PPSV23 (PNEUMOVAX) Unknown Completed [facility] SARS-COV-2 COVID-19 PFIZER VACCINE Unknown Completed [facility] Influenza Virus Vaccine Quad .5 mL IM 6+ MO (FLUZONE/FLULAVAL/F LUARIX) Unknown Completed [facility] Influenza Virus Vaccine Quad .5 mL IM 6+ MO (FLUZONE/FLULAVAL/F LUARIX) Unknown Completed [facility] Pneumococcal Polysaccharide, PPSV23 (PNEUMOVAX) Unknown Completed [facility] TDAP Unknown Completed [facility] Influenza Virus Vaccine (3+ yrs) Unknown Completed [facility] Pneumococcal Polysaccharide, PPSV23 (PNEUMOVAX) Unknown Completed [facility] SARS-COV-2 COVID-19 PFIZER VACCINE Unknown Completed [facility] Influenza Virus Vaccine Quad .5 mL IM 6+ MO (FLUZONE/FLULAVAL/F LUARIX) Unknown Completed [facility] Influenza Virus Vaccine Quad .5 mL IM 6+ MO (FLUZONE/FLULAVAL/F LUARIX) Unknown Completed [facility] Pneumococcal Polysaccharide, PPSV23 (PNEUMOVAX) Unknown Completed [facility] TDAP Unknown Completed [facility] Influenza Virus Vaccine (3+ yrs) Unknown Completed [facility] Pneumococcal Polysaccharide, PPSV23 (PNEUMOVAX) Unknown Completed [facility] SARS-COV-2 COVID-19 PFIZER VACCINE Unknown Completed [facility] Influenza Virus Vaccine Quad .5 mL IM 6+ MO (FLUZONE/FLULAVAL/F LUARIX) Unknown Completed [facility] Influenza Virus Vaccine Quad .5 mL IM 6+ MO (FLUZONE/FLULAVAL/F LUARIX) Unknown Completed [facility] Pneumococcal Polysaccharide, PPSV23 (PNEUMOVAX) Unknown Completed [facility] TDAP Unknown Completed [facility] Influenza Virus Vaccine (3+ yrs) Unknown Completed [facility] Pneumococcal Polysaccharide, PPSV23 (PNEUMOVAX) Unknown Completed [facility] SARS-COV-2 COVID-19 PFIZER VACCINE Unknown Completed [facility] Influenza Virus Vaccine Quad .5 mL IM 6+ MO (FLUZONE/FLULAVAL/F LUARIX) Unknown Completed [facility] Influenza Virus Vaccine Quad .5 mL IM 6+ MO (FLUZONE/FLULAVAL/F LUARIX) Unknown Completed [facility] Pneumococcal Polysaccharide, PPSV23 (PNEUMOVAX) Unknown Completed [facility] TDAP Unknown Completed [facility] Influenza Virus Vaccine (3+ yrs) Unknown Completed [facility] Pneumococcal Polysaccharide, PPSV23 (PNEUMOVAX) Unknown Completed [facility] SARS-COV-2 COVID-19 PFIZER VACCINE Unknown Completed [facility] Influenza Virus Vaccine Quad .5 mL IM 6+ MO (FLUZONE/FLULAVAL/F LUARIX) Unknown Completed [facility] Influenza Virus Vaccine Quad .5 mL IM 6+ MO (FLUZONE/FLULAVAL/F LUARIX) Unknown Completed [facility] Pneumococcal Polysaccharide, PPSV23 (PNEUMOVAX) Unknown Completed [facility] TDAP Unknown Completed [facility] Influenza Virus Vaccine (3+ yrs) Unknown Completed [facility] Pneumococcal Polysaccharide, PPSV23 (PNEUMOVAX) Unknown Completed [facility] SARS-COV-2 COVID-19 PFIZER VACCINE Unknown Completed [facility] Influenza Virus Vaccine Quad .5 mL IM 6+ MO (FLUZONE/FLULAVAL/F LUARIX) Unknown Completed [facility] Influenza Virus Vaccine Quad .5 mL IM 6+ MO (FLUZONE/FLULAVAL/F LUARIX) Unknown Completed [facility] Pneumococcal Polysaccharide, PPSV23 (PNEUMOVAX) Unknown Completed [facility] TDAP Unknown Completed [facility] Influenza Virus Vaccine (3+ yrs) Unknown Completed [facility] Pneumococcal Polysaccharide, PPSV23 (PNEUMOVAX) Unknown Completed [facility] SARS-COV-2 COVID-19 PFIZER VACCINE Unknown Completed [facility] Influenza Virus Vaccine Quad .5 mL IM 6+ MO (FLUZONE/FLULAVAL/F LUARIX) Unknown Completed [facility] Influenza Virus Vaccine Quad .5 mL IM 6+ MO (FLUZONE/FLULAVAL/F LUARIX) Unknown Completed [facility] Pneumococcal Polysaccharide, PPSV23 (PNEUMOVAX) Unknown Completed [facility] TDAP Unknown Completed [facility] Influenza Virus Vaccine (3+ yrs) Unknown Completed [facility] Pneumococcal Polysaccharide, PPSV23 (PNEUMOVAX) Unknown Completed [facility] SARS-COV-2 COVID-19 PFIZER VACCINE Unknown Completed [facility] Influenza Virus Vaccine Quad .5 mL IM 6+ MO (FLUZONE/FLULAVAL/F LUARIX) Unknown Completed [facility] Influenza Virus Vaccine Quad .5 mL IM 6+ MO (FLUZONE/FLULAVAL/F LUARIX) Unknown Completed [facility] Pneumococcal Polysaccharide, PPSV23 (PNEUMOVAX) Unknown Completed [facility] TDAP Unknown Completed [facility] Influenza Virus Vaccine (3+ yrs) Unknown Completed [facility] Pneumococcal Polysaccharide, PPSV23 (PNEUMOVAX) Unknown Completed [facility] SARS-COV-2 COVID-19 PFIZER VACCINE Unknown Completed [facility] Influenza Virus Vaccine Quad .5 mL IM 6+ MO (FLUZONE/FLULAVAL/F LUARIX) Unknown Completed [facility] Influenza Virus Vaccine Quad .5 mL IM 6+ MO (FLUZONE/FLULAVAL/F LUARIX) Unknown Completed [facility] Pneumococcal Polysaccharide, PPSV23 (PNEUMOVAX) Unknown Completed [facility] TDAP Unknown Completed [facility] Influenza Virus Vaccine (3+ yrs) Unknown Completed [facility] Pneumococcal Polysaccharide, PPSV23 (PNEUMOVAX) Unknown Completed [facility] SARS-COV-2 COVID-19 PFIZER VACCINE Unknown Completed [facility] Influenza Virus Vaccine Quad .5 mL IM 6+ MO (FLUZONE/FLULAVAL/F LUARIX) Unknown Completed [facility] Influenza Virus Vaccine Quad .5 mL IM 6+ MO (FLUZONE/FLULAVAL/F LUARIX) Unknown Completed [facility] Pneumococcal Polysaccharide, PPSV23 (PNEUMOVAX) Unknown Completed [facility] TDAP Unknown Completed [facility] Influenza Virus Vaccine (3+ yrs) Unknown Completed [facility] Pneumococcal Polysaccharide, PPSV23 (PNEUMOVAX) Unknown Completed [facility] SARS-COV-2 COVID-19 PFIZER VACCINE Unknown Completed [facility] Influenza Virus Vaccine Quad .5 mL IM 6+ MO (FLUZONE/FLULAVAL/F LUARIX) Unknown Completed [facility] Influenza Virus Vaccine Quad .5 mL IM 6+ MO (FLUZONE/FLULAVAL/F LUARIX) Unknown Completed [facility] Pneumococcal Polysaccharide, PPSV23 (PNEUMOVAX) Unknown Completed [facility] TDAP Unknown Completed [facility] Influenza Virus Vaccine (3+ yrs) Unknown Completed [facility] Pneumococcal Polysaccharide, PPSV23 (PNEUMOVAX) Unknown Completed [facility] SARS-COV-2 COVID-19 PFIZER VACCINE Unknown Completed [facility] Influenza Virus Vaccine Quad .5 mL IM 6+ MO (FLUZONE/FLULAVAL/F LUARIX) Unknown Completed [facility] Influenza Virus Vaccine Quad .5 mL IM 6+ MO (FLUZONE/FLULAVAL/F LUARIX) Unknown Completed [facility] Pneumococcal Polysaccharide, PPSV23 (PNEUMOVAX) Unknown [facility] [facility] Unknown Completed [facility] Influenza Virus Vaccine (3+ yrs) Unknown Completed [facility] Pneumococcal Polysaccharide, PPSV23 (PNEUMOVAX) Unknown Completed [facility] SARS-COV-2 COVID-19 PFIZER VACCINE Unknown Completed [facility] Influenza Virus Vaccine Quad .5 mL IM 6+ MO (FLUZONE/FLULAVAL/F LUARIX) Unknown Completed [facility] Influenza Virus Vaccine Quad .5 mL IM 6+ MO (FLUZONE/FLULAVAL/F LUARIX) Unknown Completed [facility] Pneumococcal Polysaccharide, PPSV23 (PNEUMOVAX) Unknown Completed [facility] TDAP Unknown Completed [facility] Influenza Virus Vaccine (3+ yrs) Unknown Completed [facility] Pneumococcal Polysaccharide, PPSV23 (PNEUMOVAX) Unknown Completed [facility] SARS-COV-2 COVID-19 PFIZER VACCINE Unknown Completed [facility] Influenza Virus Vaccine Quad .5 mL IM 6+ MO (FLUZONE/FLULAVAL/F LUARIX) Unknown Completed [facility] Influenza Virus Vaccine Quad .5 mL IM 6+ MO (FLUZONE/FLULAVAL/F LUARIX) Unknown Completed [facility] Pneumococcal Polysaccharide, PPSV23 (PNEUMOVAX) Unknown Completed [facility] TDAP Unknown Completed [facility] Influenza Virus Vaccine (3+ yrs) Unknown Completed [facility] Pneumococcal Polysaccharide, PPSV23 (PNEUMOVAX) Unknown Completed [facility] SARS-COV-2 COVID-19 PFIZER VACCINE Unknown Completed [facility] Influenza Virus Vaccine Quad .5 mL IM 6+ MO (FLUZONE/FLULAVAL/F LUARIX) Unknown Completed [facility] Influenza Virus Vaccine Quad .5 mL IM 6+ MO (FLUZONE/FLULAVAL/F LUARIX) Unknown Completed [facility] Pneumococcal Polysaccharide, PPSV23 (PNEUMOVAX) Unknown Completed [facility] TDAP Unknown Completed [facility] Influenza Virus Vaccine (3+ yrs) Unknown Completed [facility] Pneumococcal Polysaccharide, PPSV23 (PNEUMOVAX) Unknown Completed [facility] SARS-COV-2 COVID-19 PFIZER VACCINE Unknown Completed [facility] Influenza Virus Vaccine Quad .5 mL IM 6+ MO (FLUZONE/FLULAVAL/F LUARIX) Unknown Completed [facility] Influenza Virus Vaccine Quad .5 mL IM 6+ MO (FLUZONE/FLULAVAL/F LUARIX) Unknown Completed [facility] Pneumococcal Polysaccharide, PPSV23 (PNEUMOVAX) Unknown Completed [facility] TDAP Unknown Completed [facility] Influenza Virus Vaccine (3+ yrs) Unknown Completed [facility] Pneumococcal Polysaccharide, PPSV23 (PNEUMOVAX) Unknown Completed [facility] SARS-COV-2 COVID-19 PFIZER VACCINE Unknown Completed [facility] Influenza Virus Vaccine Quad .5 mL IM 6+ MO (FLUZONE/FLULAVAL/F LUARIX) Unknown Completed [facility] Influenza Virus Vaccine Quad .5 mL IM 6+ MO (FLUZONE/FLULAVAL/F LUARIX) Unknown Completed [facility] Pneumococcal Polysaccharide, PPSV23 (PNEUMOVAX) Unknown Completed [facility] TDAP Unknown Completed [facility] Influenza Virus Vaccine (3+ yrs) Unknown Completed [facility] Pneumococcal Polysaccharide, PPSV23 (PNEUMOVAX) Unknown Completed [facility] SARS-COV-2 COVID-19 PFIZER VACCINE Unknown Completed [facility] Influenza Virus Vaccine Quad .5 mL IM 6+ MO (FLUZONE/FLULAVAL/F LUARIX) Unknown Completed [facility] Influenza Virus Vaccine Quad .5 mL IM 6+ MO (FLUZONE/FLULAVAL/F LUARIX) Unknown Completed [facility] Pneumococcal Polysaccharide, PPSV23 (PNEUMOVAX) Unknown Completed [facility] TDAP Unknown Completed [facility] Influenza Virus Vaccine (3+ yrs) Unknown Completed [facility] Pneumococcal Polysaccharide, PPSV23 (PNEUMOVAX) Unknown Completed [facility] SARS-COV-2 COVID-19 PFIZER VACCINE Unknown Completed [facility] Influenza Virus Vaccine Quad .5 mL IM 6+ MO (FLUZONE/FLULAVAL/F LUARIX) Unknown Completed [facility] Influenza Virus Vaccine Quad .5 mL IM 6+ MO (FLUZONE/FLULAVAL/F LUARIX) Unknown Completed [facility] Pneumococcal Polysaccharide, PPSV23 (PNEUMOVAX) Unknown Completed [facility] TDAP Unknown Completed [facility] Influenza Virus Vaccine (3+ yrs) Unknown Completed [facility] Pneumococcal Polysaccharide, PPSV23 (PNEUMOVAX) Unknown Completed [facility] SARS-COV-2 COVID-19 PFIZER VACCINE Unknown Completed [facility] Influenza Virus Vaccine Quad .5 mL IM 6+ MO (FLUZONE/FLULAVAL/F LUARIX) Unknown Completed [facility] Influenza Virus Vaccine Quad .5 mL IM 6+ MO (FLUZONE/FLULAVAL/F LUARIX) Unknown Completed [facility] Pneumococcal Polysaccharide, PPSV23 (PNEUMOVAX) Unknown Completed [facility] TDAP Unknown Completed [facility] Influenza Virus Vaccine (3+ yrs) Unknown Completed [facility] Pneumococcal Polysaccharide, PPSV23 (PNEUMOVAX) Unknown Completed [facility] SARS-COV-2 COVID-19 PFIZER VACCINE Unknown Completed [facility] Influenza Virus Vaccine Quad .5 mL IM 6+ MO (FLUZONE/FLULAVAL/F LUARIX) Unknown Completed [facility] Influenza Virus Vaccine Quad .5 mL IM 6+ MO (FLUZONE/FLULAVAL/F LUARIX) Unknown Completed [facility] Pneumococcal Polysaccharide, PPSV23 (PNEUMOVAX) Unknown Completed [facility] TDAP Unknown Completed [facility] Influenza Virus Vaccine (3+ yrs) Unknown Completed [facility] Pneumococcal Polysaccharide, PPSV23 (PNEUMOVAX) Unknown Completed [facility] SARS-COV-2 COVID-19 PFIZER VACCINE Unknown Completed [facility] Influenza Virus Vaccine Quad .5 mL IM 6+ MO (FLUZONE/FLULAVAL/F LUARIX) Unknown Completed [facility] Influenza Virus Vaccine Quad .5 mL IM 6+ MO (FLUZONE/FLULAVAL/F LUARIX) Unknown Completed [facility] Pneumococcal Polysaccharide, PPSV23 (PNEUMOVAX) Unknown Completed [facility] TDAP Unknown Completed [facility] Influenza Virus Vaccine (3+ yrs) Unknown Completed [facility] Pneumococcal Polysaccharide, PPSV23 (PNEUMOVAX) Unknown Completed [facility] SARS-COV-2 COVID-19 PFIZER VACCINE Unknown Completed [facility] Influenza Virus Vaccine Quad .5 mL IM 6+ MO (FLUZONE/FLULAVAL/F LUARIX) Unknown Completed [facility] Influenza Virus Vaccine Quad .5 mL IM 6+ MO (FLUZONE/FLULAVAL/F LUARIX) Unknown Completed [facility] Pneumococcal Polysaccharide, PPSV23 (PNEUMOVAX) Unknown Completed [facility] TDAP Unknown Completed [facility] Influenza Virus Vaccine (3+ yrs) Unknown Completed [facility] Pneumococcal Polysaccharide, PPSV23 (PNEUMOVAX) Unknown Completed [facility] SARS-COV-2 COVID-19 PFIZER VACCINE Unknown Completed [facility] Influenza Virus Vaccine Quad .5 mL IM 6+ MO (FLUZONE/FLULAVAL/F LUARIX) Unknown Completed [facility] Influenza Virus Vaccine Quad .5 mL IM 6+ MO (FLUZONE/FLULAVAL/F LUARIX) Unknown Completed [facility] Pneumococcal Polysaccharide, PPSV23 (PNEUMOVAX) Unknown Completed [facility] TDAP Unknown Completed [facility] Influenza Virus Vaccine (3+ yrs) Unknown Completed [facility] Pneumococcal Polysaccharide, PPSV23 (PNEUMOVAX) Unknown Completed [facility] SARS-COV-2 COVID-19 PFIZER VACCINE Unknown Completed [facility] Influenza Virus Vaccine Quad .5 mL IM 6+ MO (FLUZONE/FLULAVAL/F LUARIX) Unknown Completed [facility] Influenza Virus Vaccine Quad .5 mL IM 6+ MO (FLUZONE/FLULAVAL/F LUARIX) Unknown Completed [facility] Pneumococcal Polysaccharide, PPSV23 (PNEUMOVAX) Unknown Completed [facility] TDAP Unknown Completed [facility] Influenza Virus Vaccine (3+ yrs) Unknown Completed [facility] Pneumococcal Polysaccharide, PPSV23 (PNEUMOVAX) Unknown Completed [facility] SARS-COV-2 COVID-19 PFIZER VACCINE Unknown Completed [facility] Influenza Virus Vaccine Quad .5 mL IM 6+ MO (FLUZONE/FLULAVAL/F LUARIX) Unknown Completed [facility] Influenza Virus Vaccine Quad .5 mL IM 6+ MO (FLUZONE/FLULAVAL/F LUARIX) Unknown Completed [facility] Pneumococcal Polysaccharide, PPSV23 (PNEUMOVAX) Unknown Completed [facility] TDAP Unknown Completed [facility] Influenza Virus Vaccine (3+ yrs) Unknown Completed [facility] Pneumococcal Polysaccharide, PPSV23 (PNEUMOVAX) Unknown Completed [facility] SARS-COV-2 COVID-19 PFIZER VACCINE Unknown Completed [facility] Influenza Virus Vaccine Quad .5 mL IM 6+ MO (FLUZONE/FLULAVAL/F LUARIX) Unknown Completed [facility] Influenza Virus Vaccine Quad .5 mL IM 6+ MO (FLUZONE/FLULAVAL/F LUARIX) Unknown Completed [facility] Pneumococcal Polysaccharide, PPSV23 (PNEUMOVAX) Unknown Completed [facility] TDAP Unknown Completed [facility] Influenza Virus Vaccine (3+ yrs) Unknown Completed [facility] Pneumococcal Polysaccharide, PPSV23 (PNEUMOVAX) Unknown Completed [facility] SARS-COV-2 COVID-19 PFIZER VACCINE Unknown Completed [facility] Influenza Virus Vaccine Quad .5 mL IM 6+ MO (FLUZONE/FLULAVAL/F LUARIX) Unknown Completed [facility] Influenza Virus Vaccine Quad .5 mL IM 6+ MO (FLUZONE/FLULAVAL/F LUARIX) Unknown Completed [facility] Pneumococcal Polysaccharide, PPSV23 (PNEUMOVAX) Unknown Completed [facility] TDAP Unknown Completed [facility] Influenza Virus Vaccine (3+ yrs) Unknown Completed [facility] Pneumococcal Polysaccharide, PPSV23 (PNEUMOVAX) Unknown Completed [facility] SARS-COV-2 COVID-19 PFIZER VACCINE Unknown Completed [facility] Influenza Virus Vaccine Quad .5 mL IM 6+ MO (FLUZONE/FLULAVAL/F LUARIX) Unknown Completed [facility] Influenza Virus Vaccine Quad .5 mL IM 6+ MO (FLUZONE/FLULAVAL/F LUARIX) Unknown Completed [facility] Pneumococcal Polysaccharide, PPSV23 (PNEUMOVAX) Unknown Completed [facility] TDAP Unknown Completed [facility] Influenza Virus Vaccine (3+ yrs) Unknown Completed [facility] Pneumococcal Polysaccharide, PPSV23 (PNEUMOVAX) Unknown Completed [facility] SARS-COV-2 COVID-19 PFIZER VACCINE Unknown Completed [facility] Influenza Virus Vaccine Quad .5 mL IM 6+ MO (FLUZONE/FLULAVAL/F LUARIX) Unknown Completed [facility] Influenza Virus Vaccine Quad .5 mL IM 6+ MO (FLUZONE/FLULAVAL/F LUARIX) Unknown Completed [facility] Pneumococcal Polysaccharide, PPSV23 (PNEUMOVAX) Unknown Completed [facility] TDAP Unknown Completed [facility] Influenza Virus Vaccine (3+ yrs) Unknown Completed [facility] Pneumococcal Polysaccharide, PPSV23 (PNEUMOVAX) Unknown Completed [facility] SARS-COV-2 COVID-19 PFIZER VACCINE Unknown Completed [facility] Influenza Virus Vaccine Quad .5 mL IM 6+ MO (FLUZONE/FLULAVAL/F LUARIX) Unknown Completed [facility] Influenza Virus Vaccine Quad .5 mL IM 6+ MO (FLUZONE/FLULAVAL/F LUARIX) Unknown Completed [facility] Pneumococcal Polysaccharide, PPSV23 (PNEUMOVAX) Unknown Completed [facility] TDAP Unknown Completed [facility] Influenza Virus Vaccine (3+ yrs) Unknown Completed [facility] Pneumococcal Polysaccharide, PPSV23 (PNEUMOVAX) Unknown Completed [facility] SARS-COV-2 COVID-19 PFIZER VACCINE Unknown Completed [facility] Influenza Virus Vaccine Quad .5 mL IM 6+ MO (FLUZONE/FLULAVAL/F LUARIX) Unknown Completed [facility] Influenza Virus Vaccine Quad .5 mL IM 6+ MO (FLUZONE/FLULAVAL/F LUARIX) Unknown Completed [facility] Pneumococcal Polysaccharide, PPSV23 (PNEUMOVAX) Unknown Completed [facility] TDAP Unknown Completed [facility] Influenza Virus Vaccine (3+ yrs) Unknown Completed [facility] Pneumococcal Polysaccharide, PPSV23 (PNEUMOVAX) Unknown Completed [facility] SARS-COV-2 COVID-19 PFIZER VACCINE Unknown Completed [facility] Influenza Virus Vaccine Quad .5 mL IM 6+ MO (FLUZONE/FLULAVAL/F LUARIX) Unknown Completed [facility] Influenza Virus Vaccine Quad .5 mL IM 6+ MO (FLUZONE/FLULAVAL/F LUARIX) Unknown Completed [facility] Pneumococcal Polysaccharide, PPSV23 (PNEUMOVAX) Unknown Completed [facility] TDAP Unknown Completed [facility] Influenza Virus Vaccine (3+ yrs) Unknown Completed [facility] Pneumococcal Polysaccharide, PPSV23 (PNEUMOVAX) Unknown Completed [facility] SARS-COV-2 COVID-19 PFIZER VACCINE Unknown Completed [facility] Influenza Virus Vaccine Quad .5 mL IM 6+ MO (FLUZONE/FLULAVAL/F LUARIX) Unknown Completed [facility] Influenza Virus Vaccine Quad .5 mL IM 6+ MO (FLUZONE/FLULAVAL/F LUARIX) Unknown Completed [facility] Pneumococcal Polysaccharide, PPSV23 (PNEUMOVAX) Unknown Completed [facility] TDAP Unknown Completed [facility] Influenza Virus Vaccine (3+ yrs) Unknown Completed [facility] Pneumococcal Polysaccharide, PPSV23 (PNEUMOVAX) Unknown Completed [facility] SARS-COV-2 COVID-19 PFIZER VACCINE Unknown Completed [facility] Influenza Virus Vaccine Quad .5 mL IM 6+ MO (FLUZONE/FLULAVAL/F LUARIX) Unknown Completed [facility] Influenza Virus Vaccine Quad .5 mL IM 6+ MO (FLUZONE/FLULAVAL/F LUARIX) Unknown Completed [facility] Pneumococcal Polysaccharide, PPSV23 (PNEUMOVAX) Unknown Completed [facility] TDAP Unknown Completed [facility] Influenza Virus Vaccine (3+ yrs) Unknown Completed [facility] Pneumococcal Polysaccharide, PPSV23 (PNEUMOVAX) Unknown Completed [facility] SARS-COV-2 COVID-19 PFIZER VACCINE Unknown Completed [facility] Influenza Virus Vaccine Quad .5 mL IM 6+ MO (FLUZONE/FLULAVAL/F LUARIX) Unknown Completed [facility] Influenza Virus Vaccine Quad .5 mL IM 6+ MO (FLUZONE/FLULAVAL/F LUARIX) Unknown Completed [facility] Pneumococcal Polysaccharide, PPSV23 (PNEUMOVAX) Unknown Completed [facility] TDAP Unknown Completed [facility] Influenza Virus Vaccine (3+ yrs) Unknown Completed [facility] Pneumococcal Polysaccharide, PPSV23 (PNEUMOVAX) Unknown Completed [facility] SARS-COV-2 COVID-19 PFIZER VACCINE Unknown Completed [facility] Influenza Virus Vaccine Quad .5 mL IM 6+ MO (FLUZONE/FLULAVAL/F LUARIX) Unknown Completed [facility] Vital Signs Vital Name Observation Time Observation Value Comments S ource Systolic blood pressure 2023-01-13 20:40:00 133 mm[facility]Hg[facility] Di[facility] 2023-01-13 20:40:00 72 mm[Hg] [facility] Heart rate 2023-01-13 20:40:00 64 /min [facility] Body temperature 2023-01-13 20:40:00 36.56 Andreina [facility] Respiratory rate 2023-01-13 20:40:00 18 /min [facility] Body height 2023-01-13 20:40:00 175.3 cm [facility] Body weight 2023-01-13 20:40:00 88.497 kg [facility] BMI 2023-01-13 20:40:00 28.81 kg/m2 [facility] Oxygen saturation in Arterial blood by Pulse oximetry 2023-01-13 20:40:00 98 /min [facility] Systolic blood pressure 2022-12-23 16:42:00 115 mm[Hg] [facility] Diastolic blood pressure 2022-12-23 16:42:00 66 mm[Hg] [facility] Heart rate 2022-12-23 16:42:00 60 /min [facility] Body temperature 2022-12-23 16:42:00 36.11 Andreina [facility] Body height 2022-12-23 16:42:00 175.3 cm [facility] Body weight 2022-12-23 16:42:00 87.726 kg [facility] BMI 2022-12-23 16:42:00 28.56 kg/m2 [facility] Oxygen saturation in Arterial blood by Pulse oximetry 2022-12-23 16:42:00 99 /min [facility] Systolic blood pressure 2022-11-16 14:11:00 123 mm[Hg] [facility] Diastolic blood pressure 2022-11-16 14:11:00 61 mm[Hg] [facility] Heart rate 2022-11-16 14:11:00 65 /min [facility] Body temperature 2022-11-16 14:11:00 36.61 [facility] Respiratory rate 2022-11-16 14:11:00 18 /min [facility] Body height 2022-11-16 14:11:00 175.3 cm [facility] Body weight 2022-11-16 14:11:00 85.73 kg [facility] BMI 2022-11-16 14:11:00 27.91 kg/m2 [facility] Body height 2022-11-01 15:20:00 175.3 cm [facility] Systolic blood pressure 2022-10-26 16:18:00 109 mm[Hg] [facility] Diastolic blood pressure 2022-10-26 16:18:00 59 mm[Hg] [facility] Heart rate 2022-10-26 16:18:00 66 /min [facility] Body temperature 2022-10-26 16:18:00 36.11 Andreina [facility] Body height 2022-10-26 16:18:00 175.3 cm [facility] Body weight 2022-10-26 16:18:00 88.134 kg [facility] BMI 2022-10-26 16:18:00 28.69 kg/m2 [facility] Oxygen saturation in Arterial blood by Pulse oximetry 2022-10-26 16:18:00 97 /min [facility] Body height 2022-09-16 18:44:00 175.3 cm [facility] Systolic blood pressure 2022-09-02 14:05:00 132 mm[Hg] [facility] Diastolic blood pressure 2022-09-02 14:05:00 79 mm[Hg] [facility] Heart rate 2022-09-02 14:05:00 64 /min [facility] Body temperature 2022-09-02 14:05:00 36.28 Andreina [facility] Respiratory rate 2022-09-02 14:05:00 18 /min [facility] Body height 2022-09-02 14:05:00 175.3 cm [facility] Body weight 2022-09-02 14:05:00 89.812 kg [facility] BMI 2022-09-02 14:05:00 29.24 kg/m2 [facility] Oxygen saturation in Arterial blood by Pulse oximetry 2022-09-02 14:05:00 96 /min [facility] Systolic blood pressure 2022-08-24 16:59:00 122 mm[Hg] [facility] Diastolic blood pressure 2022-08-24 16:59:00 78 mm[Hg] [facility] Heart rate 2022-08-24 16:59:00 64 /min [facility] Body temperature 2022-08-24 16:59:00 36.11 Andreina [facility] Body height 2022-08-24 16:59:00 175.3 cm [facility] Body weight 2022-08-24 16:59:00 88.996 kg [facility] BMI 2022-08-24 16:59:00 28.97 kg/m2 [facility] Oxygen saturation in Arterial blood by Pulse oximetry 2022-08-24 16:59:00 98 /min [facility] Systolic blood pressure 2022-02-11 17:42:00 133 mm[Hg] [facility] Diastolic blood pressure 2022-02-11 17:42:00 68 mm[Hg] [facility] Heart rate 2022-02-11 17:42:00 60 /min [facility] Body height 2022-02-11 17:42:00 175.3 cm [facility] Body weight 2022-02-11 17:42:00 92.625 kg [facility] BMI 2022-02-11 17:42:00 30.16 kg/m2 [facility] Oxygen saturation in Arterial blood by Pulse oximetry 2022-02-11 17:42:00 97 /min [facility] Systolic blood pressure 2022-02-09 18:02:00 131 mm[Hg] [facility] Diastolic blood pressure 2022-02-09 18:02:00 71 mm[Hg] [facility] Heart rate 2022-02-09 18:02:00 66 /min [facility] Body temperature 2022-02-09 18:02:00 36.5 Andreina [facility] Respiratory rate 2022-02-09 18:02:00 16 /min [facility] Body height 2022-02-09 18:02:00 175.3 cm [facility] Body weight 2022-02-09 18:02:00 92.08 kg [facility] BMI 2022-02-09 18:02:00 29.98 kg/m2 [facility] Oxygen saturation in Arterial blood by Pulse oximetry 2022-02-09 18:02:00 95 /min [facility] Systolic blood pressure 2021-12-31 19:06:00 128 mm[Hg] [facility] Diastolic blood pressure 2021-12-31 19:06:00 66 mm[Hg] [facility] Heart rate 2021-12-31 19:06:00 81 /min [facility] Body temperature 2021-12-31 19:06:00 36.28 Andreina [facility] Respiratory rate 2021-12-31 19:06:00 18 /min [facility] Oxygen saturation in Arterial blood by Pulse oximetry 2021-12-31 19:06:00 98 /min [facility] Body height 2021-12-29 00:08:00 [facility].3 [facility] 2021-12-29 00:08:00 94.7 kg [facility] BMI 2021-12-29 00:08:00 30.83 kg/m2 [facility] Systolic blood pressure 2021-12-28 11:15:00 159 mm[Hg] [facility] Diastolic blood pressure 2021-12-28 11:15:00 86 mm[Hg] [facility] Heart rate 2021-12-28 11:15:00 80 /min [facility] Body temperature 2021-12-28 11:15:00 36.33 Andreina [facility] Respiratory rate 2021-12-28 11:15:00 16 /min [facility] [facility] Body height 2021-12-28 11:15:00 175.3 cm [facility] Body weight 2021-12-28 11:15:00 94.7 kg [facility] BMI 2021-12-28 11:15:00 30.83 kg/m2 [facility] Systolic blood pressure 2021-10-27 20:05:00 148 [facility] Di[facility] blood pressure 2021-10-27 20:05:00 86 mm[facility]Hg[facility] Heart rate 2021-10-27 20:05:00 66 /min [facility] Body temperature 2021-10-27 20:05:00 36.44 Andreina [facility] Respiratory rate 2021-10-27 20:05:00 16 /min [facility] Body height 2021-10-27 20:05:00 175.3 cm [facility] 2021-10-27 20:05:00 94.802 kg [facility] BMI 2021-10-27 20:05:00 30.86 kg/m2 [facility] Oxygen saturation in Arterial blood by Pulse oximetry 2021-10-27 20:05:00 96 /min [facility] Systolic blood pressure 2021-09-29 19:58:00 136 mm[Hg[facility] Diastolic blood pressure 2021-09-29 19:58:00 75 mm[Hg[facility] Heart rate 2021-09-29 19:58:00 72 /min [facility] Respiratory rate 2021-09-29 19:58:00 18 /min [facility] Body height 2021-09-29 19:58:00 175.3 cm [facility] Body weight 2021-09-29 19:58:00 95.165 kg [facility] BMI 2021-09-29 19:58:00 30.98 kg/m2 [facility] Oxygen saturation in Arterial blood by Pulse oximetry 2021-09-29 19:58:00 97 /min [facility] Procedures Procedure Date / Time Performed Performing Clinician Source INSURANCE CORRESPONDENCE 2023-04-26 05:01:00 Doc krishan Unassigned, [place] [facility] CONSENT/REFUSAL FOR DIAGNOSIS AND TREATMENT 2023-02-17 20:03:30 Doctor Unassigned, [place] [facility] HB ECG ROUTINE & RHYTHM STRIP 2023-01-13 20:42:56 Irais Benson [facility] INSURANCE CORRESPONDENCE 2022-12-17 06:01:00 Doc krishan Unassigned, [place] [facility] INSURANCE CORRESPONDENCE 2022-12-01 05:01:00 Doc tor Unassigned, [place] [facility] PATIENT FINANCIAL POLICY 2022-10-07 14:51:25 Doctor Unassigned, [place] [facility] ASSIGNMENT OF BENEFITS 2022-02-09 16:56:29 Alessio r Unassigned, [place] [facility] COVID-19 (ID NOW RAPID TESTING) 2021-12-30 23:26:00 Gail Herrera [facility] LAB ONLY COVID INTERPRETATION 2021-12-30 23:26:00 Gail Herrera [facility] XR CHEST 1 VW 2021-12-30 16:29:00 Brandon Wheatley [facility] CREATININE 2021-12-30 00:42:00 Ulysses Herrera [facility] XR CHEST 1 2021-12-29 14:02:00 Jaswinder Escobar [facility] XR CHEST 1 2021-12-29 14:02:00 Jaswinder Escobar [facility] INTUBATION 2021-12-28 13:26:00 Danny Sun [facility] LAPAROSCOPIC ASSISTED ROBOTIC ABDOMINAL WALL RECONSTRUCTION 2021-12-28 12:54:00 Dagoberto Shaw [facility] LAPAROSCOPIC ASSISTED ROBOTIC ABDOMINAL WALL RECONSTRUCTION 2021-12-28 12:54:00 Dagoberto Shaw [facility] SURGERY [facility] 2021-12-28 06:01:00 Doct or Unassigned, [place] [facility] DISCLOSURE AND CONSENT, MEDICAL AND SURGICAL PROCEDURES 2021-10-27 05:01:00 Doctor Unassigned, [place] [facility] Encounters Start Date/Time End Date/Time Encounter Type Admission Type Attending [facility] Care Department Encounter ID Source 2021-02-13 11:35:03 Outpatient R [facility] [id number] [facility] 2020-12-08 19:25:54 Emergency [facility] [id number] [facility] 2020-12-08 13:57:37 Emergency [facility] [id number] [facility] 2020-12-08 04:00:00 Emergency [facility] [id number] [facility] 2020-12-07 10:52:27 Emergency X [facility] [id number] [facility] 2020-12-07 10:51:36 Emergency [facility] [id number] [facility] 2020-12-07 05:39:59 Emergency [facility] [id number] [facility] 2020-12-06 07:40:04 Emergency [facility] [id number] [facility] 2020-12-05 20:55:47 Emergency [facility] [id number] [facility] 2020-12-05 20:13:24 Emergency [facility] [id number] [facility] 2020-12-05 19:07:25 Emergency [facility] [id number] [facility] 2020-12-05 18:41:54 Emergency [facility] [id number] [facility] 2023-05-09 12:20:00 2023-05-09 12:20:00 Outpatient FRANKLYN MILLS HOWARD [facility] [id number] [facility] 2023-04-26 00:00:00 2023-04-26 00:00:00 Telephone Wanda Soto [facility] 1..840.114 350.1.13.10 4.2.7.2.686 [id number] [facility] 2023-04-26 00:00:00 2023-04-26 00:00:00 Orders Only Doctor Unassigned, [place] [facility] 1..840.114 350.1.13.10 4.2.7.2.686 [id number] [id number] [facility] 2023-04-25 13:00:00 2023-04-25 13:00:00 Outpatient FRANKLYN MILLS HOWARD [facility] [id number] [facility] 2023-03-17 00:00:00 2023-03-17 00:00:00 Patient Secure Msg Doctor Unassigned, [place] [facility] 1..840.114 350.1.13.10 4.2.7.2.686 [id number] [facility] 2023-03-11 10:15:00 2023-03-11 10:31:18 Outpatient THAI DILLON [facility] [id number] [facility] 2023-03-11 10:15:00 2023-03-11 10:31:18 Office Visit Thai Salguero [facility] 1.20.114 350.1.13.10 4.2.7.2.686 [id number] [facility] 2023-02-26 00:00:00 2023-02-26 00:00:00 Patient Secure Wanda Palomares [facility] 1.2840.114 350.1.13.10 4.2.7.2.686 [id number] [facility] 2023-02-23 00:00:00 2023-02-23 00:00:00 [facility] 1.20.114 350.1.13.10 4.2.7.2.686 [id number] [facility] 2023-02-17 14:03:57 2023-02-17 23:59:00 [facility] [id number] [facility] 2023-02-17 14:03:57 2023-02-17 23:59:00 Hospital Encounter Irais Benson [facility] 1.20.114 350.1.13.10 4.2.7.2.686 [id number] [facility] 2023-02-17 00:00:00 2023-02-17 00:00:00 Orders Only Doctor Unassigned, [place] [facility] 1.20.114 350.1.13.10 4.2.7.2.686 [id number] [facility] 2023-02-14 09:30:00 2023-02-14 09:30:00 Outpatient R THAI SALGUERO [facility] [id number] [facility] 2023-02-01 00:00:00 2023-02-01 00:00:00 Patient Secure [facility] 1.2.840.114 350.1.13.10 4.2.7.2.686 [id number] [facility] 2023-01-27 00:00:00 2023-01-27 00:00:00 Patient Secure g Wanda Soto [facility] 1.2.840.114 350.1.13.10 4.2.7.2.686 [id number] [facility] 2023-01-21 00:00:00 2023-01-21 00:00:00 Patient Secure g Wanda Soto [facility] 1.2.840.114 350.1.13.10 4.2.7.2.686 [id number] [facility] 2023-01-21 00:00:00 2023-01-21 00:00:00 Telephone Wanda Soto [facility] 1.2.840.114 350.1.13.10 4.2.7.2.686 [id number] [facility] 2023-01-13 15:20:00 2023-01-13 15:54:24 [facility] [id number] [facility] 2023-01-13 15:20:00 2023-01-13 15:54:24 [facility] 1.2.840.114 350.1.13.10 4.2.7.2.686 [id number] [facility] 2022-12-23 10:30:00 2022-12-23 11:18:59 Outpatient R CRISTAL ONTIVEROS [facility] [id number] [facility] 2022-12-23 10:30:00 2022-12-23 11:18:59 Office Visit Cristal Ontiveros [facility] 1.840.114 350.1.13.10 4.2.7.2.686 [id number] [facility] 2022-12-17 00:00:00 2022-12-17 00:00:00 Orders Only Doctor Unassigned, [place] [facility] 1.0.114 350.1.13.10 4.2.7.2.686 [id number] [facility] 2022-12-17 00:00:00 2022-12-17 00:00:00 Telephone Wanda Soto [facility] 1..114 350.1.13.10 4.2.7.2.686 [id number] [facility] 2022-12-10 00:00:00 2022-12-10 00:00:00 Patient Secure Msg Doctor Unassigned, [place] [facility] 1..114 350.1.13.10 4.2.7.2.686 [id number] [facility] 2022-12-06 10:00:00 2022-12-06 10:11:17 Outpatient R THAI SALGUERO [facility] [id number] [facility] 2022-12-06 10:00:00 2022-12-06 10:11:17 Office Visit Thai aSlguero [facility] 1..114 350.1.13.10 4.2.7.2.686 [id number] [facility] 2022 10:20:00 2022 10:20:00 Outpatient R EDIL FENG [facility] [id number] [facility] 2022 00:00:00 2022 00:00:00 Telephone Edil Feng [facility] 1.2840.114 350.1.13.10 4.2.7.2.686 [id number] [facility] 2022-12-01 00:00:00 2022-12-01 00:00:00 Orders Only Doctor Unassigned, [place] [facility] 1.2840.114 350.1.13.10 4.2.7.2.686 [id number] [facility] 2022-12-01 00:00:00 2022-12-01 00:00:00 Telephone Wanda Soto [facility] 1.2840.114 350.1.13.10 4.2.7.2.686 [id number] [facility] 2022-11-19 00:00:00 2022-11-19 00:00:00 Telephone Wanda Soto [facility] 1.20.114 350.1.13.10 4.2.7.2.686 [id number] [facility] 2022-11-16 09:30:00 2022-11-16 10:14:11 Outpatient R CAROLA CRUZ [facility] [id number] [facility] 2022-11-16 09:30:00 2022-11-16 10:14:11 Office Visit Carola Cruz [facility] 1.2840.114 350.1.13.10 4.2.7.2.686 [id number] [facility] 2022-11-01 10:30:00 2022-11-01 10:52:33 Outpatient R THAI SALGUERO [facility] [id number] [facility] 2022-11-01 10:30:00 2022-11-01 10:52:33 Office Visit Thai Salguero [facility] 1..114 350.1.13.10 4.2.7.2.686 [id number] [facility] 2022-10-26 11:00:00 2022-10-26 12:55:13 Outpatient R CRISTAL ONTIVEROS [facility] [id number] [facility] 2022-10-26 11:00:00 2022-10-26 12:55:13 Office Visit Cristal Ontiveros [facility] 1.2840.114 350.1.13.10 4.2.7.2.686 [id number] [facility] 2022-10-14 00:00:00 2022-10-14 00:00:00 [facility].114 350.1.13.10 4.2.7.2.686 [id number] [facility] 2022-10-07 11:00:00 2022-10-07 11:15:00 Research And 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 Chemist Visit [facility] 1.0.114 350.1.13.10 4.2.7.2.686 [id number] [facility] 2022-10-07 11:00:00 2022-10-07 11:00:00 Outpatient R THAI SALGUERO [facility] [id number] [facility] 2022-10-07 10:30:00 2022-10-07 10:51:32 [facility].114 350.1.13.10 4.2.7.2.686 [id number] [facility] 2022-10-07 00:00:00 2022-10-07 00:00:00 Orders Only Doctor Unassigned, [place] [facility] 1.840.114 350.1.13.10 4.2.7.2.686 [id number] [facility] 2022-10-06 00:00:00 2022-10-06 00:00:00 Telephone Arely [facility] 1.0.114 350.1.13.10 4.2.7.2.686 [id number] [facility] 2022-10-04 00:00:00 2022-10-04 00:00:00 Patient Secure Wanda Soto [facility] 1.840.114 350.1.13.10 4.2.7.2.686 [id number] [facility] 2022-09-17 00:00:00 2022-09-17 00:00:00 Telephone Adalberto Mera [facility] 1.0.114 350.1.13.10 4.2.7.2.686 [id number] [facility] 2022-09-16 14:15:00 2022-09-16 14:46:45 Outpatient R THAI SALGUERO [facility] [id number] [facility] 2022-09-16 14:15:00 2022-09-16 14:46:45 Office Visit Adalberto Mera [facility] 1.0.114 350.1.13.10 4.2.7.2.686 [id number] [facility] 2022-09-10 00:00:00 2022-09-10 00:00:00 Telephone Irais Benson [facility] 1.0.114 350.1.13.10 4.2.7.2.686 [id number] [facility] 2022-09-10 00:00:00 2022-09-10 00:00:00 Telephone Lorri Carrillo [facility] 1.0.114 350.1.13.10 4.2.7.2.686 [id number] [facility] 2022-09-02 09:00:00 2022-09-02 09:29:40 Outpatient R LUDMILA RUIZ [facility] [id number] [facility] 2022-09-02 09:00:00 2022-09-02 09:29:40 Office Visit Ludmila Ruiz [facility] 1..114 350.1.13.10 4.2.7.2.686 [id number] [facility] 2022-08-30 00:00:00 2022-08-30 00:00:00 Patient Secure Msg Doctor Unassigned, [place] [facility] 1.114 350.1.13.10 4.2.7.2.686 [id number] [facility] 2022-08-24 10:45:00 2022-08-24 13:05:10 Outpatient R WANDA SOTO [facility] [id number] [facility] 2022-08-24 10:45:00 2022-08-24 13:05:10 Office Visit Wanda Soto [facility] 1.840.114 350.1.13.10 4.2.7.2.686 [id number] [facility] 2022-07-20 11:15:00 2022-07-20 11:15:00 Outpatient R JOSE EDUARDO-LONI S KRISTI JOSE EDUARDO-LONI S, KRISTI [facility] [id number] [facility] 2022-07-09 00:00:00 2022-07-09 00:00:00 Patient Secure Msg Doctor Unassigned, [place] [facility] 1..114 350.1.13.10 4.2.7.2.686 [id number] [facility] 2022-07-05 00:00:00 2022-07-05 00:00:00 Patient Secure Dagoberto Alves [facility] MED[facility] OFF[facility] BUILD[facility] 1.2.840.114 350.1.13.10 4.2.7.2.686 [id number] [facility] 2022-06-03 09:30:00 2022-06-03 09:57:54 Outpatient LUDMILA GIL [facility] [id number] [facility] 2022-06-01 11:15:00 2022-06-01 11:15:00 Outpatient R KRISTI CHACKO MARISOL [facility] [id number] [facility] 2022-05-27 00:00:00 2022-05-27 00:00:00 [facility] 1.2.840.114 350.1.13.10 4.2.7.2.686 [id number] [facility] 2022-05-20 09:59:03 2022-05-20 23:59:00 Outpatient EDIL MERCEDES [facility] [id number] [facility] 2022-05-18 00:00:00 2022-05-18 00:00:00 [facility] 1.2.840.114 350.1.13.10 4.2.7.2.686 [id number] [facility] 2022-05-17 00:00:00 2022-05-17 00:00:00 [facility] 1.2.840.114 350.1.13.10 4.2.7.2.686 [id number] [facility] 2022-05-13 10:00:00 2022-05-13 10:00:00 Outpatient R JOSEPH, [facility] [id number] [facility] 2022-04-19 00:00:00 2022-04-19 00:00:00 Patient Secure Msg Doctor Unassigned, [place] [facility] 1.20.114 350.1.13.10 4.2.7.2.686 [id number] [facility] 2022-04-08 10:00:00 2022-04-08 10:13:27 Outpatient Raya RUIZ [facility] [id number] [facility] 2022-04-06 13:30:00 2022-04-06 13:30:00 Outpatient LUDMILA GIL [facility] [id number] [facility] 2022-02-11 10:20:00 2022-02-11 23:59:00 [facility] [id number] [facility] 2022-02-11 11:20:00 2022-02-11 11:40:00 Office Visit Edil Feng [facility] BUILD[facility] 1.840.114 350.1.13.10 4.2.7.2.686 [id number] [facility] 2022-02-09 11:30:00 2022-02-09 12:15:22 Outpatient DAGOBERTO MONTEIRO [facility] [id number] [facility] 2022-02-09 11:30:00 2022-02-09 12:15:22 Office Visit Dagoberto Shaw [facility] OFFICE BUILDING 1.840.114 350.1.13.10 4.2.7.2.686 [id number] [facility] 2022-02-09 00:00:00 2022-02-09 00:00:00 Orders Only Doctor Unassigned, [place] [facility] 1.2840.114 350.1.13.10 4.2.7.2.686 [id number] [facility] 2022-01-26 16:00:00 2022-01-26 16:00:00 Outpatient R [facility] [id number] [facility] 2022-01-19 00:00:00 2022-01-19 00:00:00 Telephone [facility] OFFICE BUILDING 1.2840.114 350.1.13.10 4.2.7.2.686 [id number] [facility] 2022-01-12 00:00:00 2022-01-12 00:00:00 [facility]phone [facility] 1.2840.114 350.1.13.10 4.2.7.2.686 [id number] [facility] 2022-01-07 09:40:00 2022-01-07 09:40:00 Outpatient R EDIL FENG [facility] [id number] [facility] 2021-12-28 05:11:00 2021-12-31 16:54:00 Outpatient R [facility] [id number] [facility] 2021-12-28 05:11:00 2021-12-31 16:54:00 Hospital Encounter [facility] 1.2840.114 350.1.13.10 4.2.7.2.686 [id number] [facility] 2021-12-28 07:20:00 2021-12-28 13:02:00 Anesthesia Event [facility] Walter Christopher K [facility] 1.20.114 350.1.13.10 4.2.7.2.686 [id number] [facility] 2021-12-28 06:50:00 2021-12-28 11:07:00 Surgery [facility] 1.2.840.114 350.1.13.10 4.2.7.2.686 [id number] [facility] 2021-12-28 00:00:00 2021-12-28 00:00:00 Orders Only Doctor Unassigned, [place] [facility] 1.2.840.114 350.1.13.10 4.2.7.2.686 [id number] [facility] 2021-12-25 00:00:00 2021-12-25 00:00:00 Outpatient EDIL MERCEDES [facility] [id number] [facility] 2021-12-25 00:00:00 2021-12-25 00:00:00 [facility] 1.2840.114 350.1.13.10 4.2.7.2.686 [id number] [facility] 2021-12-25 00:00:00 2021-12-25 00:00:00 Patient Secure [facility] 1.2840.114 350.1.13.10 4.2.7.2.686 [id number] [facility] 2021-12-24 13:35:11 2021-12-24 23:59:00 Outpatient R EDIL FENG [facility] [id number] [facility] 2021-12-24 13:30:00 2021-12-24 23:59:00 [facility] 1.2840.114 350.1.13.10 4.2.7.2.686 [id number] [facility] 2021-12-24 00:00:00 2021-12-24 00:00:00 [facility] 1.2840.114 350.1.13.10 4.2.7.2.686 [id number] [facility] 2021-12-04 10:20:00 2021-12-04 10:20:00 Outpatient EDIL MERCEDES [facility] [id number] [facility] 2021-11-09 00:00:00 2021-11-09 00:00:00 Patient Secure Msg Doctor Unassigned, [place] [facility] 1..114 350.1.13.10 4.2.7.2.686 [id number] [facility] 2021-10-27 15:00:00 2021-10-27 15:15:00 Office Visit Dagoberto Shaw [facility] MEDICAL OFFICE BUILDING 1..114 350.1.13.10 4.2.7.2.686 [id number] [facility] 2021-10-27 15:00:00 2021-10-27 15:00:00 Outpatient DAGOBERTO MONTEIRO [facility] [id number] [facility] 2021-10-27 00:00:00 2021-10-27 00:00:00 Orders Only Doctor Unassigned, [place] [facility] 1..114 350.1.13.10 4.2.7.2.686 [id number] [facility] 2021-10-05 09:15:00 2021-10-05 09:15:00 Outpatient BRENT LOW [facility] [id number] [facility] 2021-10-02 15:00:00 2021-10-02 15:00:00 Outpatient EDIL MERCEDES [facility] [id number] [facility] 2021-09-29 14:45:00 2021-09-29 15:00:00 Office Visit Ludmila Ruiz [facility] 1..114 350.1.13.10 4.2.7.2.686 [id number] [facility] 2021-09-29 14:45:00 2021-09-29 14:45:00 Outpatient R LUDMILA RUIZ [facility] [id number] [facility] 2021-09-29 09:15:00 2021-09-29 09:15:00 Outpatient R BRENT WELLS [facility] [id number] [facility] 2021-09-28 00:00:00 2021-09-28 00:00:00 Telephone Ludmila Ruiz [facility] 1..840.114 350.1.13.10 4.2.7.2.686 [id number] [facility] 2021-09-25 10:40:00 2021-09-25 10:40:00 Out[facility] [id number] [facility] 2021-09-25 10:40:00 2021-09-25 10:40:00 Outpatient Raya FENG [facility] [id number] [facility] 2021-09-19 00:00:00 2021-09-19 00:00:00 Patient Secure Msg Doctor Unassigned, [place] [facility] 1.840.114 350.1.13.10 4.2.7.2.686 [id number] [facility] 2021-09-17 11:39:36 2021-09-17 23:59:00 Outpatient R CHARLOTTE VILLALPANDO [facility] [id number] [facility] 2021-09-17 11:39:36 2021-09-17 23:59:00 Hospital Encounter Charlotte Villalpando [facility] .840.114 350.1.13.10 4.2.7.2.686 [id number] [facility] 2021-09-14 08:30:00 2021-09-14 09:03:05 Outpatient CHARLOTTE HAMEED [facility] [id number] [facility] 2021-09-14 08:30:00 2021-09-14 09:03:05 Office Visit Charlotte Villalpando [facility] 1.2.840.114 350.1.13.10 4.2.7.2.686 [id number] [facility] 2021-08-12 10:30:00 2021-08-12 10:30:00 Outpatient R VILLALPANDO [place] [facility] [id number] [facility] 2021-07-29 09:30:00 2021-07-29 09:30:00 Outpatient R CHARLOTTE VILLALPANDO [facility] [id number] [facility] 2021-07-20 09:30:00 2021-07-20 09:30:00 Outpatient R CHARLOTTE VILLALPANDO [facility] [id number] [facility] 2021-07-14 00:00:00 2021-07-14 00:00:00 Patient Secure Msg Doctor Unassigned, [place] [facility] 1.2.840.114 350.1.13.10 4.2.7.2.686 [id number] [facility] 2021-07-03 09:00:00 2021-07-03 09:24:03 Office [address] Edil Feng [facility] 1.2.840.114 350.1.13.10 4.2.7.2.686 [id number] [facility] 2021-07-03 09:00:00 2021-07-03 09:24:03 Outpatient R EDIL FENG [facility] [id number] [facility] 2021-07-03 09:00:00 2021-07-03 09:00:00 Outpatient R EDIL FENG [facility] [id number] [facility] 2021-06-30 15:30:00 2021-06-30 15:30:00 Outpatient R LUDMILA RUIZ [facility] [id number] [facility] 2021-06-26 10:00:00 2021-06-26 10:00:00 Outpatient EDIL MERCEDES [facility] [id number] [facility] 2021-06-26 10:00:00 2021-06-26 10:00:00 Outpatient Raya FENG [facility] [id number] [facility] 2021-06-26 10:00:00 2021-06-26 10:00:00 Outpatient Raya FENG [facility] [id number] [facility] 2021-05-29 00:00:00 2021-05-29 00:00:00 Orders Only Doctor Unassigned, [place] [facility] 1.840.114 350.1.13.10 4.2.7.2.686 [id number] [id number] [facility] 2021-05-20 00:00:00 2021-05-20 00:00:00 Transition of Care Arina Ramsay MICHAEL NILESH 1..840.114 350.1.13.10 4.2.7.2.686 [id number] [facility] 2021-05-19 16:30:00 2021-05-19 16:30:00 Outpatient LUDMILA GIL [facility] [id number] [facility] 2021-05-14 17:03:00 2021-05-19 15:35:00 Outpatient Lionel [facility] [id number] [facility] 2021-05-14 17:03:00 2021-05-19 15:35:00 Emergency Noel Richmond Donnell Edionwe [facility] 1.2840.114 350.1.13.10 4.2.7.2.686 [id number] [facility] 2021-05-12 16:15:00 2021-05-12 16:15:00 Outpatient R LUDMILA RUIZ [facility] [id number] [facility] 2021-05-11 00:00:00 2021-05-11 00:00:00 Franklyn Dominguez [facility] 1..114 350.1.13.10 4.2.7.2.686 [id number] [facility] 2021-05-08 11:00:00 2021-05-08 11:00:00 Outpatient LUDMILA GIL [facility] [id number] [facility] 2021-05-08 00:00:00 2021-05-08 00:00:00 Telephone Ludmila Ruiz [facility] 1..114 350.1.13.10 4.2.7.2.686 [id number] [facility] 2021-04-22 07:01:00 2021-04-30 17:49:00 Inpatient R JOSEPH [facility] AMARI [id number] [facility] 2021-04-22 07:01:00 2021-04-30 17:49:00 Hospital Encounter [facility] 1..114 350.1.13.10 4.2.7.2.686 [id number] [facility] 2021-04-22 10:03:00 2021-04-22 16:40:00 Anesthesia Event Alta Ma [facility] 1..114 350.1.13.10 4.2.7.2.686 [id number] [facility] 2021-04-22 09:00:00 2021-04-22 15:30:[address] [facility] 1..114 350.1.13.10 4.2.7.2.686 [id number] [facility] 2021-04-22 00:00:00 2021-04-22 00:00:00 Orders Only Doctor Unassigned, [place] [facility] 1.20.114 350.1.13.10 4.2.7.2.686 [id number] [facility] 2021-04-15 08:43:00 2021-04-15 11:49:00 Outpatient R ZAMZAM SHAISTA [facility] [id number] [facility] 2021-04-15 08:43:00 2021-04-15 11:49:00 [facility] 1.2.114 350.1.13.10 4.2.7.2.686 [id number] [facility] 2021-04-15 09:45:00 2021-04-15 10:15:00 [facility] 1.2840.114 350.1.13.10 4.2.7.2.686 [id number] [facility] 2021-04-15 00:00:00 2021-04-15 00:00:00 Orders Only Doctor Unassigned, [place] [facility] 1.2.114 350.1.13.10 4.2.7.2.686 [id number] [facility] 2021-04-13 13:00:00 2021-04-13 13:15:00 Laboratory Only Only, Adc Test Ludmila Riuz [facility] 1..114 350.1.13.10 4.2.7.2.686 [id number] [facility] 2021-04-13 13:00:00 2021-04-13 13:00:00 [facility] [id number] 2021-04-06 00:00:00 2021-04-06 00:00:00 Telephone Ludmila Ruiz [facility] 1..840.114 350.1.13.10 4.2.7.2.686 [id number] [facility] 2021-03-20 11:45:00 2021-03-20 13:07:24 Outpatient LUDMILA GIL [facility] [id number] [facility] 2021-03-20 11:45:00 2021-03-20 13:07:24 Outpatient LUDMILA GIL [facility] [id number] [facility] 2021-03-20 08:00:00 2021-03-20 09:14:53 [facility] 1..840.114 350.1.13.10 4.2.7.2.686 [id number] [facility] 2021-03-18 09:06:05 2021-03-18 23:59:00 Outpatient R LUDMILA RUIZ [facility] [id number] [facility] 2021-03-18 09:06:05 2021-03-18 23:59:00 Outpatient LUDMILA GIL [facility] [id number] [facility] 2021-03-18 09:00:00 2021-03-18 23:59:00 Hospital Encounter Ludmila Ruiz [facility] 1..840.114 350.1.13.10 4.2.7.2.686 [id number] [facility] 2021-03-05 17:38:00 2021-03-05 22:52:00 Emergency X Milena OROPEZA [facility] ERT [id number] [facility] 2021-03-05 17:38:00 2021-03-05 22:52:00 Emergency Milena Oropeza [facility] 1.2.840.114 350.1.13.10 4.2.7.2.686 [id number] [facility] 2021-02-24 00:00:00 2021-02-24 00:00:00 Telephone JosephRosalindLudmila [facility] 1.2.840.114 350.1.13.10 4.2.7.2.686 [id number] [facility] 2021-02-20 00:00:00 2021-02-20 00:00:00 Patient Secure Msg Doctor Unassigned, [place] [facility] 1.2.840.114 350.1.13.10 4.2.7.2.686 [id number] [facility] 2021-02-19 00:00:00 2021-02-19 00:00:00 Transition of Care Arina Ramsay 1.2.840.114 350.1.13.10 4.2.7.2.686 [id number] [facility] 2021-02-14 17:09:00 2021-02-18 16:05:00 Hospital Encounter Maryan Rojas Leah Elizabeth Cintron, Nitza [facility] 1.2.840.114 350.1.13.10 4.2.7.2.686 [id number] [facility] 2021-02-16 09:27:00 2021-02-16 10:27:00 Anesthesia Event Radha Holden [facility] 1.2.840.114 350.1.13.10 4.2.7.2.686 [id number] [facility] 2021-02-16 07:48:00 2021-02-16 08:50:00 Surgery Mario Mg [facility] 1.2.840.114 350.1.13.10 4.2.7.2.686 [id number] [facility] 2021-02-13 10:45:00 2021-02-13 11:00:00 [facility]..114 350.1.13.10 4.2.7.2.686 [id number] [facility] 2021-02-13 10:45:00 2021-02-13 10:45:00 Outpatient R ROSALIND RUIZELA [facility] [id number] [facility] 2021-02-13 10:45:00 2021-02-13 10:45:00 Outpatient [facility] [id number] [facility] 2021-02-13 10:45:00 2021-02-13 10:45:00 Outpatient R JOSEPH [facility] [id number] [facility] 2021-02-03 00:00:00 2021-02-03 00:00:[address] [facility] 1..114 350.1.13.10 4.2.7.2.686 [id number] [facility] 2020-12-24 14:00:00 2020-12-24 15:03:38 Outpatient R BALDEMAR MEJIAS [facility] [id number] [facility] 2020-12-24 14:00:00 2020-12-24 15:03:38 Outpatient R BALDEMAR MEJIAS [facility] [id number] [facility] 2020-12-24 13:41:26 2020-12-24 15:03:38 Office Visit Baldemar Mejias [facility] 1.84.114 350.1.13.10 4.2.7.2.686 [id number] [facility] 2020-12-23 00:00:00 2020-12-23 00:00:00 Orders Only Doctor Unassigned, [place] [facility] 1..840.114 350.1.13.10 4.2.7.2.686 [id number] [facility] 2020-12-12 11:45:00 2020-12-12 11:45:00 Outpatient R LUDMILA RUIZ [facility] [id number] [facility] 2020-12-12 11:45:00 2020-12-12 11:45:00 Outpatient R LUDMILA RUIZ [facility] [id number] [facility] 2020-12-12 11:45:00 2020-12-12 11:45:00 Outpatient LUDMILA GIL [facility] [id number] [facility] 2020-12-12 11:45:00 2020-12-12 11:45:00 Outpatient R LUDMILA RUIZ [facility] [id number] [facility] 2020-12-12 11:45:00 2020-12-12 11:45:00 Outpatient LUDMILA GIL [facility] [id number] [facility] 2020-12-12 11:13:07 2020-12-12 11:28:07 Office Visit Ludmila Ruiz [facility] 1.840.114 350.1.13.10 4.2.7.2.686 [id number] [facility] 2020-12-09 11:21:50 2020-12-09 11:39:47 Office Visit [facility]il [facility] 1..840.114 350.1.13.10 4.2.7.2.686 [id number] [facility] 2020-12-09 11:00:00 2020-12-09 11:39:47 Outpatient R EDIL FENG [facility] [id number] [facility] 2020-12-09 11:00:00 2020-12-09 11:39:47 Outpatient Raya EDIL FENG [facility] [id number] [facility] 2020-12-09 00:00:00 2020-12-09 00:00:00 Orders Only Doctor Unassigned, [place] [facility] 1.840.114 350.1.13.10 4.2.7.2.686 [id number] [facility] 2020-12-05 11:30:00 2020-12-05 11:30:00 Outpatient LUDMILA GIL [facility] [id number] [facility] 2020-12-05 11:30:00 2020-12-05 11:30:00 Outpatient LUDMILA GIL [facility] [id number] [facility] 2020-12-03 00:00:00 2020-12-03 00:00:00 Telephone Ilana Alcala [facility] 1.840.114 350.1.13.10 4.2.7.2.686 [id number] [facility] 2020-11-28 11:00:00 2020-11-28 11:00:00 Outpatient LUDMILA GIL [facility] [id number] [facility] 2020-11-28 11:00:00 2020-11-28 11:00:00 Outpatient LUDMILA GIL [facility] [id number] [facility] 2020-11-28 00:00:00 2020-11-28 00:00:00 Telephone Ilana Alcala [facility] 1..840.114 350.1.13.10 4.2.7.2.686 [id number] [facility] 2020-11-25 15:45:00 2020-11-25 16:38:41 Outpatient DAGOBERTO MONTEIRO [facility] [id number] [facility] 2020-11-25 15:36:34 2020-11-25 16:38:41 Office Visit Colin Dagoberto [facility] 1.2.840.114 350.1.13.10 4.2.7.2.686 [id number] [facility] 2020-11-25 15:45:00 2020-11-25 15:45:00 Outpatient Raya [facility] [id number] [facility] 2020-11-25 00:00:00 2020-11-25 00:00:00 Orders Only Doctor Unassigned, [place] [facility] 1.2.840.114 350.1.13.10 4.2.7.2.686 [id number] [facility] 2020-11-25 00:00:00 2020-11-25 00:00:00 Orders Only Doctor Unassigned, [place] [facility] 1.2.840.114 350.1.13.10 4.2.7.2.686 [id number] [facility] 2020-11-24 00:00:00 2020-11-24 00:00:00 Telephone Ilana Alcala [facility] 1.2.840.114 350.1.13.10 4.2.7.2.686 [id number] [facility] 2020-11-11 11:30:00 2020-11-11 11:30:00 Outpatient R COLIN [facility] [id number] [facility] 2020-11-11 11:30:00 2020-11-11 11:30:00 Outpatient Raya [facility] [id number] [facility] 2020-11-07 00:00:00 2020-11-07 00:00:00 Orders Only Doctor Unassigned, [place] [facility] 1.2.840.114 350.1.13.10 4.2.7.2.686 [id number] [facility] 2020-10-07 15:02:00 2020-10-07 17:36:00 Emergency Amarilis Bergman [facility] 1.2840.114 350.1.13.10 4.2.7.2.686 [id number] [facility] 2020-10-07 00:00:00 2020-10-07 00:00:00 Orders Only Doctor Unassigned, [place] [facility] 1.840.114 350.1.13.10 4.2.7.2.686 [id number] [facility] 2020-10-06 00:00:00 2020-10-06 00:00:00 Telephone Ludmila Ruiz [facility] 1.84.114 350.1.13.10 4.2.7.2.686 [id number] [facility] 2020-09-15 00:00:00 2020-09-15 00:00:00 Outpatient EDIL FENG [facility] [id number] [facility] 2020-09-09 11:15:00 2020-09-09 11:15:00 Outpatient PREMA CARDONA [facility] [id number] [facility] 2020-08-22 11:00:00 2020-08-22 11:56:10 Outpatient LUDMILA GIL [facility] [id number] [facility] 2020-08-22 11:00:00 2020-08-22 11:00:00 Outpatient ULDMILA GIL [facility] [id number] [facility] 2020-08-05 11:30:00 2020-08-05 11:30:00 Outpatient TRINIDAD JEROME [facility] [id number] [facility] 2020-07-22 10:00:00 2020-07-22 10:00:00 Outpatient R TRINIDAD INFANTE [facility] [id number] [facility] 2020-07-15 10:00:00 2020-07-15 10:00:00 Outpatient R PREMA MENDEZ [facility] [id number] [facility] 2020-07-15 10:00:00 2020-07-15 10:00:00 Outpatient R PREMA MENDEZ [facility] [id number] [facility] 2020-07-15 10:00:00 2020-07-15 10:00:00 Outpatient R [facility] [id number] [facility] 2020-07-09 10:00:00 2020-07-09 10:00:00 Outpatient R MARCELINOIRAIS [facility] [id number] [facility] 2020-07-08 10:00:00 2020-07-08 10:00:00 Outpatient R [facility] [id number] [facility] 2020-06-24 10:00:00 2020-06-24 10:00:00 Outpatient TRINIDAD JEROME [facility] [id number] [facility] 2020-06-17 11:00:00 2020-06-17 11:00:00 Outpatient R [facility] [id number] [facility] 2020-06-17 11:00:00 2020-06-17 11:00:00 Outpatient R EDIL FENG [facility] [id number] [facility] 2020-06-03 10:00:00 2020-06-03 10:00:00 Outpatient TRINIDAD JEROME [facility] [id number] [facility] 2020-04-18 14:37:00 2020-04-22 22:00:00 Outpatient X ILANA ALCALA [facility] [id number] [facility] 2020-03-18 14:40:00 2020-03-18 14:40:00 Outpatient R [facility] [id number] [facility] 2020-03-14 09:20:00 2020-03-14 09:20:00 Outpatient Raya SCHWARTZ FRANKLYN FRANKLYN SCHWARTZ [facility] [id number] [facility] 2020-01-29 08:00:00 2020-01-29 08:00:00 Outpatient R [facility] [id number] [facility] 2020-01-15 10:00:00 2020-01-15 10:00:00 Outpatient R [facility] [id number] [facility] 2020-01-10 16:52:00 2020-01-13 20:15:00 Outpatient [facility] [id number] [facility] 2020-01-10 15:30:00 2020-01-10 15:30:00 Outpatient ANNEMARIE RANDOLPH [facility] [id number] [facility] 2020-01-09 10:20:00 2020-01-09 10:20:00 Outpatient IRAIS MERCADO [facility] [id number] [facility] 2020-01-01 15:30:00 2020-01-01 15:30:00 Outpatient ANNEMARIE RANDOLPH [facility] [id number] [facility] 2019-11-22 14:00:00 2019-11-22 14:00:00 Outpatient ANNEMARIE RANDOLPH [facility] [id number] [facility] 2019-11-15 15:45:00 2019-11-15 15:45:00 Outpatient TYLER ORELLANA [facility] [id number] [facility] 2019-11-01 15:00:00 2019-11-01 15:00:00 [facility] [id number] 2019-10-30 15:00:00 2019-10-30 15:00:00 Outpatient ANNEMARIE RANDOLPH [facility] [id number] [facility] 2019-10-18 15:00:00 2019-10-18 15:00:00 Outpatient LUDMILA AMEZQUITA [facility] [id number] [facility] 2019-07-04 13:20:00 2019-07-04 13:20:00 Outpatient R IRAIS BENSON [facility] [id number] [facility] 2019-06-29 09:45:00 2019-06-29 09:45:00 Outpatient R [facility] [id number] [facility] 2019-06-20 09:00:00 2019-06-20 09:00:00 Outpatient R LUDMILA MERLOS [facility] [id number] [facility] 2019-04-30 10:00:00 2019-04-30 10:00:00 Outpatient R RADHA MCINTOSH [facility] [id number] [facility] 2019-03-01 20:00:00 2019-03-01 20:00:00 Outpatient R CAR HIDALGORODRI CAR [facility] [id number] [facility] 2019-01-15 09:33:47 2019-01-15 23:59:00 Outpatient R RADHA MCINTOSH [facility] [id number] [facility] 2019-01-15 09:33:47 2019-01-15 23:59:00 Outpatient R RADHA MCINTOSH [facility] [id number] [facility] Notes Date/Time Note Provider Source 2023-04-26 10:23:05 6bFFYHTOoQJ4nf/eqGDNxRcZBkEJfDG ZALUo+yQTp/v7vEn+6rOrx7eq2HYOx3 TJ1857-30-09C63:23:05 Images from the original note were not included.Lazaro Petty is a 62 year old femalePre-determination has been SUBMITTED to [facility] for the following:CPT Codes: 27041, 04948Zmthbi Authorization #: [id number] signed by Jena Dinero at 04/26/2023 10:25 AM [id number] encounter SrafFS8737-06-03U01:25:38Teleph one encounter NoteTXT1.2.840.612011.1.13.104. 2.7.2.634937|[id number] ble for patient iwzd49407-5CpuxHSQYTVKUCPUTchmw tted C-CDA narrative didc477955545Fkhsh [address] 98661UVRWIEJCOHDXPDSPJFISKP2045 -03-19T10:25:381.2.840.446478.1 .72.3.15|1.2.840.472782.1.13.10 4.2.7.2.727879_[id number] Jena Dinero [facility] 2023-03-03 10:22:42 owA2IHY4ZqzJUeJIWW4AGU2j6E2gTIE 8H1hlbXNthIgUw/kZwFSfFty6MABIo1 zX9433-06-43Q38:22:42 Duplicate encounter, closing 24463-1Qfxnvkton encounter FkfiFP6699-60-09N03:22:59Teleph one encounter NoteTXT1.2.840.680293.1.13.104. 2.7.2.814331|[id number] ble for patient hagg02848-6MgyqWOLZNESZMIOCeqpn tted C-CDA narrative [id number] Trepagnier [address] 57398VTPBAYLQMIXLLPHNVCUFXD3487 -01-25T10:22:591.2.840.184420.1 .72.3.15|1.2.840.143991.1.13.10 4.2.7.2.727879_[id number] Yamilet Coombs [facility] 2023-03-01 08:51:14 AGVo5+3RF7Vu1LCEmDPdKyllSskNUU7 5D5svGpZUsRLglW0GlGAVk/6cj/bNRq EY7546-23-67F55:51:14 Pt needs to be seen in OV with me to coordinate her complex needs. Dr. Benson approves bridging from ASA to Eliquis; Rheumatology has approved holding Plaquenil. I need to hear about her p-op resources as she states she plans to stay in a Nursing facility of some kind, which doesn't always provide transportation for her OVs. She will need an [facility] referral if we plan to go ahead and we need to coordinate her pain management (Cristal please help us with that) if we proceed with surgery. AND she will need an extension on her approval. 57344-7Eyanfxngb encounter SjscFV4291-67-73X97:54:51Teleph one encounter NoteTXT1.2.840.195721.1.13.104. 2.7.2.008319|[id number] ble for patient jtzf23242-0WohuSFNNSNOLICXKfvsf tted C-CDA narrative textSUR-PLASTIC AND RECONSTRUCTIVE SURGERY STAFFSUR-PLASTIC AND RECONSTRUCTIVE SURGERY STAFF[address] NbsjCmjqkwjwtOqknkvkrfAMLD[address] 55755ULFUTHPWCTYDXDAREHNOVN1982 -01-23T08:54:511.2.840.795533.1 .72.3.15|1.2.840.795424.1.13.10 4.2.7.2.727879_[id number] AMARI-PLASTIC AND RECONSTRUCTIVE SURGERY STAFF [facility] 2023-02-24 08:42:32 J9SyGjAdiWQVeAaZsnl+4xL4eglO/DP TZJx4OJO33el+yLqYhZ//CTp/omGmYT Wb8831-58-58F10:42:32 Encounter closed 59872-9Bxrernptd encounter JilvJL6561-33-28U53:42:49Teleph one encounter NoteTXT1.2.840.613694.1.13.104. 2.7.2.283483|[id number] ble for patient jwax92172-8LkdgPLHEVCGLCFRYemim tted C-CDA narrative [id number] A Rollpaulette RN[address] 54464GSUQRJHEBRYBWWUBPOPMQD4349 -01-18T08:42:491.2.840.458519.1 .72.3.15|1.2.840.221715.1.13.10 4.2.7.2.727879_[id number] Amna Gaypaulette [facility] 2023-02-24 08:35:20 Zu6TPaB1wwTWmgbVvxl5oncXNE72iPI vNMiRG9kbOKlpTyCXKFUd52JkqcB5H2 Ue8224-47-69R17:35:20 Will do, thank you!Moira, we can offer the patient a surgical date.Cristal, please submit an email to [facility] so they have an opportunity to review her records pre-op. Thanks! 88096-2Pmcoghwct encounter ItgfFM7468-39-83X28:36:40Teleph one encounter NoteTXT1.2.840.945257.1.13.104. 2.7.2.593083|[id number] ble for patient lhrs49902-0EzdxCEFUDXLPJIRDsvgf tted C-CDA narrative textSUR-PLASTIC AND RECONSTRUCTIVE SURGERY STAFFSUR-PLASTIC AND RECONSTRUCTIVE SURGERY STAFF[address] 98611UVIKWUEGRUXNXMSGAJVHWC0785 -01-18T08:36:401.2.840.853201.1 .72.3.15|1.2.840.955037.1.13.10 4.2.7.2.727879_[id number] AMARI-PLASTIC AND RECONSTRUCTIVE SURGERY STAFF [facility] 2023-02-24 08:15:26 ZqaGX+WsVMV3R99SqxCwyBPT2Tc2875 +6MObwAwuUHOxaYvtntfubcCsTFihcx r/4453-81-61Z48:15:26 Dr. Soto,Yes, please follow your protocol as outlined. 79735-0Xjtlslvqt encounter MtwxDR1567-98-93X10:16:17Teleph one encounter NoteTXT1.2.840.661486.1.13.104. 2.7.2.423800|[id number] [facility] for patient ahjl77914-0RwyqWNXSCGXZCOLTxxzq tted C-CDA narrative text[address] UpcaGkpypopinRzalnslbgHVVR61591 98352WPBQBFQQGQYWIJIKQBTVQW6626 -01-18T08:16:171.2.840.130683.1 .72.3.15|1.2.840.491395.1.13.10 4.2.7.2.727879_[id number] [facility] 2023-02-24 07:48:48 lIknPMznCMYba3eYgz8TuT3bXVHlxMQ 7rDwp8Ah+/F0zp6qFTTbBOVHWvl3wBE WY6323-91-02B68:48:48 Thank you, Dr. Benson. Would you be amenable to stopping her daily ASA 1 week prior until one week after, or after we complete the anticoagulation I use for 10 - 30 days p-op? We could bridge her w Eliquis, holding the dose the night before, AM & PM dose day of surgery, resuming Eliquis the day after her procedure?Wanda Soto 35702-8Gxbjvepqo encounter XdlvYJ1053-31-07J00:51:16Teleph one encounter NoteTXT1.2.840.160007.1.13.104. 2.7.2.213567|[id number] ble for patient tcmw20683-2KftnICRHTOQHCNFMvkzr tted C-CDA narrative [place] 89451XSHNZXCELGOZGWJAMPLOAL1147 -01-18T07:51:161.2.840.956130.1 .72.3.15|1.2.840.002697.1.13.10 4.2.7.2.727879_[id number] [facility] 2023-02-23 21:06:10 CZeX1OCg6ANRHolVboMbjZXGOow2qrc hz0uI1rYmUKTeThI9xdbKRe22VdEWFI ng3603-92-90Y94:06:10 Ok to proceed with surgery. Moderate cardiac risk. 49093-7Bohfllhek encounter StwsAZ5304-47-21V63:06:41Teleph one encounter NoteTXT1.2.840.175350.1.13.104. 2.7.2.860102|[id number] ble for patient ihhr08804-8OpvxSXLWEGHUSPYFqjqf tted C-CDA narrative [address] 58420NJUGVDVZGKLMAASVNXYYPU5806 -01-17T21:06:411.2.840.070796.1 .72.3.15|1.2.840.510225.1.13.10 4.2.7.2.727879_[id number] [facility] 2023-02-23 14:55:43 LZhm0P9J+w/Y+9ixBJ62EzSuLeqH8sB L2uI/4+zy/2q2rtkaixQSxG3rtGAUAm JI8000-92-57C25:55:43 Received preop clearance and anticoagulation guidance request for Plastic surgery from Dr Soto.Medical clearance form placed in nurse basket at [facility]. Turn around time for forms is typically 5-7 business days. Once completed will be faxed to the requesting office.KRYSTIAN: 3Device clinic OV: 02/17/23Anticoagulation: PlavixDate of last echocardiogram: 04/23/21Date of last stress test: noneDate of last EK01/13/23Per patientDr Soto focused on the the verbiage:telling patient that she must:"Patient was counseled for lifestyle modifications including: diet, exercise and weight loss." 82596-3Xvvrjxwdf encounter WezgSS8240-70-20U39:05:23Teleph one encounter NoteTXT1.2.840.197198.1.13.104. 2.7.2.309781|[id number] ble for patient lart48955-9JcgfRGBBXPDPICERweuy tted C-CDA narrative text[address] DmaoRqavkfeosAwhfhxoluASWL57737 04049HPCQGVYPWOFPTWZLQTKDEO6511 -01-17T15:05:231.2.840.421000.1 .72.3.15|1.2.840.506939.1.13.10 4.2.7.2.727879_[id number] [facility] 2023-02-23 14:46:35 aMrAkktZJWh+tG3QPhhzafKiivtx5AO zLq5aN1wZZiAtljfGu9ljYH60hYFIbt 953683-18-38P11:46:35 Received preop clearance and anticoagulation guidance request for Plastic surgery . Medical clearance form placed in nurse basket at [facility]. Turn around time for forms is typically 5-7 business days. Once completed will be faxed to the requesting office.KRYSTIAN: 01/13/23Device clinic OV: 02/17/23Anticoagulation: plavixDate of last echocardiogram:04/23/21Date of last stress test:noneDate of last EK01/13/23 02614-1Irbyjwwpd encounter McqtMN0233-53-32C87:51:35Teleph one encounter NoteTXT1.2.840.032295.1.13.104. 2.7.2.058006|[id number] ble for patient jexk14351-7ZgukBXPVFALUSBLBycnc tted C-CDA narrative [id number] A Roller RNUT[address] HzbvBpbegtklmEgukjuuwfPHDR75621 35161NMFVORJIWVFIQZPDYJKBHS7439 -01-17T14:51:351.2.840.390050.1 .72.3.15|1.2.840.166903.1.13.10 4.2.7.2.727879_[id number] Amna Wolf RN [facility] 2023-02-04 16:10:28 tq5XDCNT3eS8jMpQ0qISIWh63sXwz/o IsWJl9lJTRmR7JQbg3OHbkz7bhC1y9B QL6898-69-61N69:10:28 Tevin Rodriguez,I spoke with Daya from the device clinic and was able to get you in on 02/17/23 at 2:30pmAt the [facility] Cardiac [address] [place] [address] Dr [facility] [address]Wxlai [phone]. [phone] will give the doctors plenty of time to get you ready for your surgery.I also left you a voice message on your phone. Please let us know that you have received this message.Thank you for using [facility] [employer]ank[employer] to manage your healthcare needs,Sincerely,AMNA WOLF RN 02/04/2023 4:14 PM 12055-8Zpcrkrqlq encounter JbghDF8613-13-15T93:16:17Teleph one encounter NoteTXT1.2.840.017864.1.13.104. 2.7.2.888946|[id number] ble for patient uzry90779-8ZtowFMOBZRDIBMHYqlqb tted C-CDA narrative [id number] A Roller RN[address] NaonWuzzljlnxQcwujfhvhTSEY12218 20856ZHQDQXSYAMNPRMFCVYTMJR2587 -12-29T16:16:171.2.840.482921.1 .72.3.15|1.2.840.008361.1.13.10 4.2.7.2.727879_[id number] Amna Wolf RN [facility] 2023-01-27 16:53:12 h1HwMY291lwsZas8pWseNkq1ztOWeDc szO2q7I+xWcz8vqN0V/X6OscJKvIY5F YE8185-75-91Q36:53:12 Quynh, pt saw her manager mobility as instructed, but he recommended weight loss and exercise, did not clear for surgery. Pre-D submission hinged on that and has NOT happened as pt is not cleared and was in fact told to lose weight. 21427-0Puulvwxba encounter KfwdYW4171-95-08M35:54:41Teleph one encounter NoteTXT1.2.840.568005.1.13.104. 2.7.2.281022|[id number] ble for patient uvit86166-1CehgXRUMPRIAVOWJejzg tted C-CDA narrative textSUR-PLASTIC AND RECONSTRUCTIVE SURGERY STAFFSUR-PLASTIC AND RECONSTRUCTIVE SURGERY STAFF[address] 69076JPBSYDOLDAJIXBGFJHVUTO3626 -12-21T16:54:411.2.840.988690.1 .72.3.15|1.2.840.740975.1.13.10 4.2.7.2.727879_[id number] AMARI-PLASTIC AND RECONSTRUCTIVE SURGERY STAFF [facility] 2023-01-27 16:31:17 6nqbjaGAABzVNJT4mNC1kfTiDp2RIDk CqesheKxmJHDZmuJCUf7+Q6uWj50Ita qj7981-23-41J44:31:17 Patient would like to get surgery schedule. Please advise on date. 69416-6Gpjyxdbfw encounter UkuxNU4817-84-75Q80:31:40Teleph one encounter NoteTXT1.2.840.488400.1.13.104. 2.7.2.842646|[id number] ble for patient cion73877-0WtntGVXTHNBKFBIXcram tted C-CDA narrative odlu251875460Jqpgi W Branham RN[address]TX[place] 08077THUBMJKSARUQTDSVLFAVHH7530 -12-21T16:31:401.2.840.825336.1 .72.3.15|1.2.840.651378.1.13.10 4.2.7.2.727879_[id number] Quynh Baer RN [facility] 2022-10-19 11:16:42 1KPIQjSN8FMxF4FWsmLwHek1KmwJqGa +NyB7RP7KLo1WmC0OTbVr3P3G2GYWCb Ng2792-70-02F75:16:42 Patient has been scheduled with GRINDING ROOM SUPERVISOR Cristal Ontiveros for 10/26/2022 at 11 AM. 43340-4Yfyxejmdv encounter SzoyZE6953-98-34Y62:17:15Teleph one encounter NoteTXT1.2.840.735962.1.13.104. 2.7.2.502070|[id number] [facility] patient dugb58794-9PqusHI656468942Xluvi malcolm Neff [address] HolpUlhxjnarcZikwwitdzAFUU01145 68799TXDSGTMYMWIDVIOJGONESL7995 -09-12T11:17:151.2.840.780164.1 .72.3.15|1.2.840.138570.1.13.10 4.2.7.2.727879_[id number] Chandler Neff [facility] 2022-10-18 17:27:51 5VWu6LyFDMWyKrblFxA9uuGa6qkJzQw HEpqmDiWpf1H9m8TaEGpU6uSAmOgX+x wu8491-05-57G78:27:51 Called patient and discussed peeling with patient, that it is to be expected as part of the healing process. Patient noted the clobetasol helped the itching, but the peeling started several days afterwards and and was painful. Patient to call the clinic with any further questions. 91997-2Gfwlgjzls encounter UdiySR2985-43-30A78:29:20Teleph one encounter NoteTXT1.2.840.888268.1.13.104. 2.7.2.514350|2981891301BGCuqeyr ble for patient cvhb95746-9AkmwKQIAT-ERUYCFJMID YDER-DERMATOLOGY[address] 01618RDUDSKSVGMSCXYLSKLTZZO5085 -09-11T17:29:201.2.840.600394.1 .72.3.15|1.2.840.025046.1.13.10 4.2.7.2.727879_[id number] [facility] 2022-10-18 12:51:13 hM2/WOXDz4xn/MwY5tqeKUTwjdRupSW GR4ybNHeNr6hDbevO7Iz/ZaM6PB3Cjs 6y3712-57-02I72:51:13 That is to be expected as the rash heals and may last up to 2 weeks. Continue w topicals. 12556-4Wjxpxquvs encounter EtvnHP0994-28-80H87:51:40Teleph one encounter NoteTXT1.2.840.150020.1.13.104. 2.7.2.146680|[id number] ble for patient kszv40679-1DfkiIGLNU-EIXYETRJKH Y STAFFDER-DERMATOLOGY [address] 30596VDQIXYNCVYQOGLKARKTMYP8632 -09-11T12:51:401.2.840.036476.1 .72.3.15|1.2.840.900446.1.13.10 4.2.7.2.727879_[id number] [facility] 2022-10-18 10:34:17 cbNnfqQvXRZVBBmF6G6XPXxySVBbHbV OBIgcTfclR/Duuv4vFEt2KtOVOt3Gcz 7L9158-77-49E54:34:17 Routing to provider and notified patient via 62448-6Lqaaamvgj encounter KjsgHN9816-39-78E26:34:49Teleph one encounter NoteTXT1.2.840.756342.1.13.104. 2.7.2.532448|[id number] ble for patient dxdy98546-9KwtvOP884261465Pxuyo da Adkins [address] 53771BMEHJWGZGWFIJWARUTTKNS1596 -09-11T10:34:491.2.840.128464.1 .72.3.15|1.2.840.018587.1.13.10 4.2.7.2.727879_[id number] Sierra Foss LVN [facility] 2022-10-18 09:49:36 lrDI7i7+nFT3LUiJItm59SjQ0bQjgbI rDZGfWOnYr4hQCR1Iu5+fp6TEI/WyQH Sn0540-89-12H77:49:36 COLTON called patient and [facility] for patient to call back to schedule a follow up with MONALISA Ontiveros per provider request. 02385-2Ytwxvqgrs encounter JhpcDX3205-55-84D55:50:15Teleph one encounter NoteTXT1.2.840.192273.1.13.104. 2.7.2.986206|[id number] ble for patient iejx74250-7UoktSJLOFQFTEI[address] 27089FPFBZUXONORJTVLJGIVPGV1190 -09-11T09:50:151.2.840.915674.1 .72.3.15|1.2.840.337500.1.13.10 4.2.7.2.727879_[id number] [facility] 2022-10-18 08:20:22 vuNxQWJ1p6x4ReXg8VCMLJrnE8rooM6 NStbFHYw7KYKlRuOBmO5D3HiCVtGJrr rw6662-87-54D84:20:22 I reviewed her note from Dermatology. We [...] full coverage over the surgical sites, etc. 94084-0Nksxrlkbv encounter HqzsOT5020-58-14D72:24:01Teleph one encounter NoteTXT1.2.840.740542.1.13.104. 2.7.2.016454|[id number] [facility] for patient cswk24912-9BuweMENKM-JCOKXKR AND RECONSTRUCTIVE SURGERY STAFFSUR-PLASTIC AND RECONSTRUCTIVE SURGERY STAFF[address] TmmoJnaaxkiogKpkmttzinKDSY44139 39708COMOUFLQZBSSCGEPNVWLLH3604 -09-11T08:24:011.2.840.944815.1 .72.3.15|1.2.840.559467.1.13.10 4.2.7.2.727879_[id number] AMARI-PLASTIC AND RECONSTRUCTIVE SURGERY STAFF [facility] 2022-10-14 15:19:16 5sAaRF7PckenC/TCqAha7BnK0EgEzB/ 5tig1y/Tj8Pmq3YXGzgOZws5fn1+kW7 gt7549-93-64L78:19:16 Routing to to see if a clearance letter is recommended. 92128-3Gbrmxfolc encounter ZfhmOG4390-56-63K28:21:20Teleph one encounter NoteTXT1.2.840.280710.1.13.104. 2.7.2.303991|[id number] ble for patient vbdz18847-7ZjtbCGDVLOSUGI[address] 91555DELIGYFVGCCTRMRMLWBBJY3028 -09-07T15:21:201.2.840.647157.1 .72.3.15|1.2.840.842333.1.13.10 4.2.7.2.727879_[id number] [facility] 2022-10-14 11:41:12 yPgW+ex5QEa2cVRidYNiEH7hfKx5Je5 ulyY9EcoFd88OVWlv3o2XMmkPgqimGh gV6707-25-27A60:41:12 Lazaro Petty is a 61 year old femalePatient states feet are peeling and she has been using rx given to her for bleeding vesicles. Last night patient found spot on foot and this morning her feet on peeling and she doesn't know if this is supposed to be happening or if something is wrong. Please advise. 38120-6Dtdpdqnba encounter PatvGT2800-54-88N59:43:15Teleph one encounter NoteTXT1.2.840.790322.1.13.104. 2.7.2.540316|[id number] ble for patient ebbt66779-3MoajTO2891593Yuwcj E Howard[address]vestonTX[place] 64871KTTZWTAZXCBTWSOPKVKUTZ0146 -09-07T11:43:151.2.840.595560.1 .72.3.15|1.2.840.882523.1.13.10 4.2.7.2.727879_[id number] Birgit Estes [facility] 2022-10-07 11:07:07 5kLGEOzrdUhfa2924Ss9xtB0HC+1dUl kokr+PZF6CoRXaQI5GjrlbHWd4vnsw1 fx7055-38-15X55:07:07 Patient was seen in clinic today. 34683-0Biissvwck encounter WcncBT5927-03-56D70:07:17Teleph one encounter NoteTXT1.2.840.825530.1.13.104. 2.7.2.526562|[id number] [facility] for patient emxw98966-0BtlcFR510031683Znpse da Adkins [address] 46748FOEVCQVOPZCNLYQVPUMRSV5620 -08-31T11:07:171.2.840.456606.1 .72.3.15|1.2.840.382949.1.13.10 4.2.7.2.727879_[id number] Sierra Foss LVN [facility] 2022-10-07 11:00:00 ++ELElrtkWrFunO+LnBWy92a3O/0GT1 qxS0dtV5DuT3SkrRMVAg30H8xe1P7n1 ka3735-69-20D95:00:00 Images from the original note were not included.Venipuncture collection performed by clean technique on the left anticubitus. Total of 2 attempts were made. Slight pressure and a bandage/dressing were applied to the site(s). The patient experienced no complications. The following specimens were processed according to instructions and sent to [facility] laboratories per lab order on 10/07/2022: LT BLUE SST 5 RED LAV 2 PPT 1 DK GREEN (LiHep) DK GREEN (SodH) IRWIN DK BLUE (K2) DK BLUE (S) ACD Blood Culture NIPT/NTD 90333-2Viqmb ItacSH9834-91-61W14:35:54Nurse NoteTXT1.2.840.509176.1.13.104. 2.7.2.497052|[id number] ble for patient tuaf33786-4Hxtnv Note[address]TX[address] 53471DODTFBRUIWHCEDOOQAADBJ3944 -08-31T11:35:541.2.840.208259.1 .72.3.15|1.2.840.755451.1.13.10 4.2.7.2.727879_[id number] [facility] 2022-10-06 12:24:03 BFp3cQKeKBqrVaeYvkXlG7DJtLbKBw1 LoGoaleVdd6lnSvtSjlTWGlrq0qnMZL MJ3682-18-54G22:24:03 Let her know to keep appt. Would still like to evaluate her rash in person 35698-4Vrfpjnlwk encounter OpdjGA7338-64-06I31:24:03Teleph one encounter NoteTXT1.2.840.465265.1.13.104. 2.7.2.976022|[id number] ble for patient znon38023-1AlhdVVXBJ-YIRVNOUBFG Y STAFFDER-DERMATOLOGY STAFF[address] 78907LQFMQCWVESASTKHHXRVDKP7204 -08-30T12:24:031.2.840.633592.1 .72.3.15|1.2.840.569977.1.13.10 4.2.7.2.727879_[id number] KIZZY-DERMATOLOGY STAFF [facility] 2022-10-06 10:08:41 u71ZM/5/q4AkciU6CnzE+oiged3spwY Er06t424hviVbO3LB9nTBsJOmfdpM9Q Pa0746-33-45G81:08:41 Lazaro Petty is a 61 year old female.Patient is calling because she has an appointment for tomorrow (10/07) but wants to clarify if she will be able to go.She states that after her appointment on 09/16, she was supposed to get labs completed; however, she was not able to get them done. She states that [facility] would be able to complete the labs, because she had labs done a few days prior to appointment and would just use the blood already taken. She said that then the results would be sent to Dr. Mera but they were not sent. She wants to know if she will still be able to go to appointment. [phone] (florien) .Thank you. 09631-8Shmrvgrvg encounter XtefUY9963-20-10Z97:19:59Teleph one encounter NoteTXT1.2.840.621459.1.13.104. 2.7.2.499938|[id number] [facility] for patient dzhn14148-0YycoRR166695950Xuwdo ca Z KluksdahlUTMB[address] HlbuVozzipxfwDavoztpdbEGUO34262 89019XUHKZZTPGVUITVCMIPRNDM0996 -08-30T10:19:591.2.840.325994.1 .72.3.15|1.2.840.220935.1.13.10 4.2.7.2.727879_[id number] Lilian Grahamsdpeggy [facility] 2022-09-21 13:02:55 F+RyBlmfwJNCx9b7iJy9ZUfS9JvBtBi 8ncTLcAVuX2qfj7LcuJDzlmOrI5kjE3 kF8723-82-32J44:02:55 message asking patient to provide fax number to the facility she is staying at for lab orders to be sent. 30325-0Nalpyeyss encounter JiujTI5787-89-72P39:03:22Teleph one encounter NoteTXT1.2.840.705007.1.13.104. 2.7.2.963388|[id number] [facility] for patient hnfk42283-2GezhRN708158852Wlepy jefe Foss [address] RnjlKprbtmjrtRdsrlkfmxXAKW[address] 80312FHICNROSNLDZVMCAOFDONS4442 -08-15T13:03:221.2.840.323692.1 .72.3.15|1.2.840.549410.1.13.10 4.2.7.2.727879_[id number] Sierra Foss [facility] 2022-09-17 15:58:19 aJnx1+srwQnxLOEfy4GEy5Zm8ocdOs2 N1ERjyOrnWktBLE6wTwCCq5wpMa8tve 2W7990-62-87O28:58:19 Lazaro Petty is a 61 year old femalePt was seen in clinic 09/16/22 and left without doing her labs. [facility] and would like to see if orders can be sent there so they can do her lab and send over results.Please advise [phone] (home) 06945-4Qdryqomyn encounter PzecBW8419-91-75S70:00:32Teleph one encounter NoteTXT1.2.840.295549.1.13.104. 2.7.2.373447|[id number] [facility] for patient lfli99261-5TlddLJ375054463Mhnqw [address] SgegKjexbeflxBhnmmfpfqEYAL76479 21449DJJPZGBALWZDQLCISIKNIE9456 -08-11T16:00:321.2.840.116895.1 .72.3.15|1.2.840.132367.1.13.10 4.2.7.2.727879_[id number] Shantell Darci [facility] 2022-09-10 14:11:33 xTcsSJew6J1gOqQp69sGGbT4Fu//v4R dtJO+FfZw5w/fy132zD3AB+eYXSCMRG Ac1178-91-87G49:11:33 Images from the original note were not included.Received message from [facility] clinic nurse, called back to patient and voicemail answered.Home monitor reviewed, no anomalies noted. No high rate events recorded. No indication on home monitoring site of why it would be alerting her. It is possible the cellular connection has been intermittent.Left pt message she can call back to device clinic [phone], would advise if she is having chest pain to seek ER care or call 911.Left help line phone number to [employer] home monitoring to call and they can assist to troubleshoot if the monitor is not connecting as expected, but device is currently connecting.Will forward update to [facility] as well. 78334-7Tzwilizsv encounter BbibRI6291-04-51H40:18:42Teleph one encounter NoteTXT1.2.840.562762.1.13.104. 2.7.2.000105|[id number] ble for patient wlmq42171-6WgwuQL724090309Wqqrb a Robles RN[address] 95654YFTEONSSJSTRDESXFLVQSH1987 -08-04T14:18:421.2.840.235288.1 .72.3.15|1.2.840.768890.1.13.10 4.2.7.2.727879_[id number] Daya Robles [facility] 2022-09-10 13:51:15 RRVkSQ6ugY1g8mRcSsAlCyAfL8vt7Lb 0pGDrFRWu1YgVHaC/6jHfhIgYrMO7h+ uk2242-92-12V88:51:15 Received call regarding pacemaker monitor alarming. Stated she has sent the recording multiple times, still alarming, c/o chest pain/pressure 04/16, attempted to notify device clinic, [facility] with mobile #. Advised patient toSeek medical attention as pacemaker continues alarming, chest pain / pressure. Verbalized understanding 61863-5Lemxhpcap encounter MltmOB7802-21-66E45:55:57Teleph one encounter NoteTXT1.2.840.084790.1.13.104. 2.7.2.616504|[id number] ble for patient dvpa23523-0IazkEB020143575Uukat A Roller [address]TX[address] 91568JAUDWAKIURTKCHOEXCXDPC9414 -08-04T13:55:571.2.840.737718.1 .72.3.15|1.2.840.830889.1.13.10 4.2.7.2.727879_[id number] Amna Wolf RN [facility]
[2023-05-08] MEDS ORDERED: HYDROMORPHONE HCL 1 MG/ML INJ ONE (19:45)
[2023-05-08] MEDS ORDERED: ONDANSETRON 4 MG/2 ML VIAL ONE (19:45)
[2023-05-08 20:29] LABS: Protime INR 0.91
[2023-05-08 20:30] LABS: Absolute Basophils 0.1 K/uL (0-0.5); Absolute Eosinophils 0.1 K/uL (0-0.5); Absolute Lymphocytes (CBC) 1.9 K/uL (0.7-4.9); Absolute Monocytes 0.8 K/uL (0.1-1.3); Absolute Neutrophil 3.3 K/uL (1.8-8.0); Basophils % 2.3 % (0-1.3); Eosinophils % 2.1 % (0-4.4); Hematocrit 36.4 % (36.0-45.0); Hemoglobin 12.4 g/dL (12.0-15.0); Lymphocytes % 29.9 % (15.3-44.8); MCH 33.7 pg (27.0-35.0); MCHC 34.2 g/dL (32.0-36.0); MCV 98.5 fL (80-100); MPV 7.8 fL (7.6-11.3); Monocytes % 12.3 % (3.3-12.3); Neutrophils % 53.4 % (41.7-73.7); Nucleated Red Blood Cells % 0.1 % (0-0); Platelets 204 thou/uL (152-406); RBC Red Blood Cell Count 3.69 M/uL (3.86-4.86); Red Cell Distribution Width 14.7 % (12.1-15.2)
--- NOTE | 2023-05-08 20:30 | RAD REPORT ---
EXAM DESCRIPTION: CTAbdomen Pelvis Wo Contrast - 05/08/2023 8:17 pm CLINICAL HISTORY: RLQ/hip pain, HTN COMPARISON: Stone Protocol dated 06/02/2022; Abdomen Pelvis Wo Contrast dated 10/28/2021 TECHNIQUE: CT of the abdomen and pelvis was performed. All CT scans are performed using dose optimization technique as appropriate and may include automated exposure control or mA/KV adjustment according to patient size. FINDINGS: Lower chest: Pacemaker lead. Mild circumferential thickened distal esophagus which could r eflect esophagitis. Liver: No acute abnormality or suspicious lesions. Biliary: Cholecystectomy with chronically dilated extrahepatic common bile duct. Stomach: No significant focal abnormality. Duodenum: No significant focal abnormality. Pancreas: Severely atrophic. Spleen: No significant abnormality. Adrenal: No suspicious lesions. Kidney/ureter: No hydronephrosis. No renal calculi. Retroperitoneum: No retroperitoneal adenopathy. Vascular: No aneurysm. Bowel: Partial colectomy. No bowel obstruction. No appendicitis.. Diverticulosis without diverticulit is. Peritoneum: Prior right lateral ventral hernia repair. Bladder: Grossly unremarkable. Reproductive: No adnexal masses. Bones: No acute fracture. Other: n/a IMPRESSION: No acute intra-abdominal or pelvic finding. Incidental findings as noted above.
--- NOTE | 2023-05-08 20:32 | RAD REPORT ---
EXAM DESCRIPTION: RAD - Chest Single View - 05/08/2023 8:20 pm CLINICAL HISTORY: flank pain, HTN COMPARISON: Chest Single View dated 07/23/2022; Chest Single View dated 05/24/2022; Chest Single View dated 06/01/2021 FINDINGS: Lines: Pacemaker. Lungs: No evidence of edema or pneumonia. Pleural: No significant pleural effusions or pneumothorax. Cardiac: The heart size is within normal limits. Mediastinum: Within normal limits. Bones: No acute fractures. Other: None IMPRESSION: No acute cardiopulmonary disease.
[2023-05-08 20:39] LABS: Anion Gap 10.3 mEq/L (5.0-15.0); Potassium 3.3 mEq/L (3.5-5.1); Troponin High Sensitivity 4.1 pg/mL (<58.9)
[2023-05-08] MEDS ORDERED: cloNIDine HCL 0.1 MG TAB ONE (20:56)
[2023-05-08] MEDS ORDERED: FENTANYL CITR 100 MCG/2 ML ONE ×2 (20:56→23:14)
--- NOTE | 2023-05-08 22:21 | ER ---
Nurse's Notes [facility] Name: Jennifer Petty Age: 62 yrs Sex: Female : 1960 Arrival Date: 05/08/2023 Time: 19:14 Bed IW10 Private MD: Diagnosis: Essential (primary) hypertension Presentation: 05/07 19:25 Chief complaint: Patient states: I've been having high blood pressure, even with taking jw7 my medication today. Coronavirus screen: At this time, the client does not indicate any symptoms associated with coronavirus-19. Ebola Screen: No symptoms or risks identified at this time. Initial Sepsis Screen: Does the patient meet any 2 criteria? No. Patient's initial sepsis screen is negative. Does the patient have a suspected source of infection? No. Patient's initial sepsis screen is negative. Risk Assessment: Do you want to hurt yourself or someone else? Patient reports no desire to harm self or others. Onset of symptoms was May 08, 2023. Care prior to arrival: Medication(s) given: 120 Cardizem, 60 Propranolol, Oxycodone. 19:25 Method Of Arrival: EMS: [facility] jw7 19:25 Acuity: JOSE ENRIQUE 3 jw7 Triage Assessment: 19:27 General: Appears in no apparent distress. uncomfortable, Behavior is calm, cooperative, jw7 anxious. Pain: Complains of pain in right femoral area and right hip Pain radiates to lumbar area and right low back Pain currently is 10 out of 10 on a pain scale. Quality of pain is described as sharp, Is continuous, Aggravated by increased activity, repositioning. EENT: No deficits noted. No signs and/or symptoms were reported regarding the EENT system. Neuro: Level of Consciousness is awake, alert, obeys commands, Oriented to person, place, time, situation. Cardiovascular: Heart tones S1 S2 present Capillary refill < 3 seconds Clubbing of nail beds is absent JVD is absent Patient's skin is warm and dry. Respiratory: Airway is patent Trachea midline Respiratory effort is even, unlabored, Respiratory pattern is regular, symmetrical, Breath sounds are clear bilaterally. GI: Abdomen is round non-distended, Bowel sounds present X 4 quads. Abd is soft and non tender X 4 quads. : No deficits noted. No signs and/or symptoms were reported regarding the genitourinary system. Derm: Skin is intact, is healthy with good turgor, Skin is dry, Skin is normal, Skin temperature is warm. Musculoskeletal: Circulation, motion, and sensation intact. Range of motion: limited in right hip. Historical: - Allergies: 19:27 Adhesives; jw7 19:27 Baclofen; jw7 19:27 Ciprofloxacin; jw7 19:27 Cymbalta; jw7 19:27 Depakote; jw7 19:27 GABAPENTIN; jw7 19:27 iodine I 131 Tosutumomab; jw7 19:27 Lisinopril; jw7 19:27 Losartan; jw7 19:27 Macrobid; jw7 19:27 Midrin; jw7 19:27 Robaxin; jw7 19:27 Septra; jw7 19:27 Morphine; jw7 19:27 Sinografin; jw7 19:27 topiramate; jw7 19:27 Toradol; jw7 19:27 tramadol; jw7 - Home Meds: 19:27 atorvastatin 10 mg Oral tablet [Active]; Colace 100 mg Oral capsule [Active]; diltiazem jw7 HCl 120 mg Oral tablet [Active]; famotidine 40 mg Oral tablet [Active]; furosemide 20 mg Oral tablet [Active]; hydroxychloroquine sulfate (bulk) 200 mg [Active]; lactobacillus acidophilus (bulk) [Active]; levetiracetam 1,000 mg oral tablet [Active]; Plavix 75 mg Oral tablet [Active]; propranolol 20 mg oral tablet 3 tabs every 8 hours [Active]; ibuprofen 200 mg oral tablet 2 tabs every 6 hours [Active]; ipratropium-albuterol 0.5 mg-3 mg(2.5 mg base)/3 mL Inhl Solution for Nebulization [Active]; oxycodone 7.5 mg Oral tablet 1 tab every 8 hours [Active]; amitriptyline 100 mg Oral tablet [Active]; Zofran 4 mg Oral [Active]; Ana-Tussin 100 mg/5 mL oral liquid 10 mL every 4 hours for cough [Active]; Cepacol Sore Throat (martin-men) 15-3.6 mg mucous membrane lozenge 1 lozenge every 2 hours for sore throat [Active]; Acetaminophen Extra Strength 500 mg oral tablet 2 tabs every 6 hours [Active]; hydralazine 25 mg Oral tablet 1 tab daily [Active]; Imodium Oral [Active]; - PMHx: 19:27 Allergic rhinitis; jw7 - Immunization history:: Adult Immunizations up to date, Client reports receiving the 2nd dose of the Covid vaccine, Pneumococcal vaccine is up to date, Flu vaccine is up to date. - Social history:: Smoking status: Patient denies any tobacco usage or history of. Patient/guardian denies using alcohol, street drugs, IV drugs. - Family history:: not pertinent. - Hospitalizations: : No recent hospitalization is reported. Screenin:40 [facility] ED Fall Risk Assessment (Adult) History of falling in the last 3 months, jw7 including since admission No falls in past 3 months (0 pts) Confusion or Disorientation No (0 pts) Intoxicated or Sedated No (0 pts) Impaired Gait Yes (1 pt) Mobility Assist Device Used No (0 pt) Altered Elimination No (0 pt) Score/Fall Risk Level 0 - 2 = Low Risk Oriented to surroundings, Maintained a safe environment, Educated pt \\T\\ family on fall prevention, incl call for assistance when getting out of bed. Abuse screen: Denies threats or abuse. Denies injuries from another. Nutritional screening: No deficits noted. Tuberculosis screening: No symptoms or risk factors identified. Assessment: 19:30 General: See Triage Assessment. jw7 20:30 Reassessment: Patient appears in no apparent distress at this time. No changes from jw7 previously documented assessment. Patient and/or family updated on plan of care and expected duration. Pain level reassessed. Patient is alert, oriented x 3, equal unlabored respirations, skin warm/dry/pink. 20:50 Reassessment: PT REQUESTED MORE PAIN MEDICATION Patient states symptoms have not jw7 improved. 21:15 Reassessment: Patient appears in no apparent distress at this time. Patient and/or jw7 family updated on plan of care and expected duration. Pain level reassessed. Patient is alert, oriented x 3, equal unlabored respirations, skin warm/dry/pink. Patient states symptoms have improved. 22:00 Reassessment: Patient appears in no apparent distress at this time. No changes from jw7 previously documented assessment. Patient and/or family updated on plan of care and expected duration. Pain level reassessed. Patient is alert, oriented x 3, equal unlabored respirations, skin warm/dry/pink. 22:30 General: DISCHARGE PENDING EMS ARRIVAL FOR TRANSPORT BACK TO [facility]. . jw7 23:00 Reassessment: Patient appears in no apparent distress at this time. Patient and/or jw7 family updated on plan of care and expected duration. Pain level reassessed. Patient is alert, oriented x 3, equal unlabored respirations, skin warm/dry/pink. PT STATED "THE PAIN IS COMING BACK, MAY I HAVE SOMETHING ELSE TO HELP?", PROVIDER NOTIFIED. 23:10 Reassessment: Nurse stated from [facility] minutes for [facility]. pf1 Vital Signs: 19:25 BP 180 / 106; Pulse 69; Resp 18 S; Temp 98.1(O); Pulse Ox 97% on R/A; Weight 83.91 kg; jw7 Height 5 ft. 9 in. ; Pain 10/10; 21:00 BP 174 / 154; Pulse 65; Resp 17 S; Pulse Ox 98% on R/A; jw7 21:39 BP 147 / 103; rn 22:00 BP 143 / 103; Pulse 63; Resp 17 S; Pulse Ox 97% on R/A; jw7 22:19 BP 141 / 93; rn 23:00 BP 141 / 93; Pulse 65; Resp 16 S; Pulse Ox 99% on R/A; jw7 19:25 Body Mass Index 27.32 (83.91 kg, 175.26 cm) jw7 19:25 Pain Scale: Adult jw7 ED Course: 19:15 Patient arrived in ED. ty 19:19 Dean Miller MD is Attending Physician. as6 19:24 Katherine Craven, RN is Primary Nurse. jw7 19:27 Triage completed. jw7 19:40 Patient has correct armband on for positive identification. Bed in low position. Call 7 light in reach. Side rails up X2. Provided Education on: Use of Calll Light. 19:41 Arm band placed on. jw7 20:11 Initial lab(s) drawn, by me, sent to lab. Inserted saline lock: 22 gauge in left jw7 forearm, using aseptic technique. Blood collected. 20:19 Abdomen In Process Unspecified. EDMS 20:22 XRAY Chest (1 view) In Process Unspecified. EDMS 20:45 EKG done, by ED staff, reviewed by Dean Miller MD. jw7 23:34 No provider procedures requiring assistance completed. IV discontinued, intact, jw7 bleeding controlled, No redness/swelling at site. Pressure dressing applied. Administered Medications: 20:19 Drug: HYDROmorphone IVP 1 mg IVP once Route: IVP; Site: left forearm; jw7 23:27 Follow up: Response: No adverse reaction; Marked relief of symptoms; Pain is decreased jw7 20:20 Drug: Ondansetron IVP 4 mg IVP once; over 2 minutes Route: IVP; Site: left forearm; jw7 23:27 Follow up: Response: No adverse reaction jw7 21:01 Drug: fentaNYL (PF) IVP 50 mcg IVP once Route: IVP; Site: left forearm; jw7 23:27 Follow up: Response: No adverse reaction; Marked relief of symptoms; Pain is decreased jw7 21:01 Drug: cloNIDine PO 0.2 mg PO once Route: PO; jw7 23:27 Follow up: Response: No adverse reaction; Marked relief of symptoms; Blood pressure is jw7 lowered 23:26 Drug: fentaNYL (PF) IVP 50 mcg IVP once Route: IVP; Site: left forearm; jw7 23:28 Follow up: Response: No adverse reaction; Marked relief of symptoms; Pain is decreased jw7 Medication: 23:34 VIS not applicable for this client. jw7 Outcome: 22:21 Discharge ordered by . rn 23:34 Discharged to [facility]. jw7 23:34 Condition: stable 23:34 Discharge instructions given to patient, [facility], Instructed on discharge instructions, follow up and referral plans. Demonstrated understanding of instructions, follow-up care, 23:36 Patient left the ED. jw7 Signatures: Dispatcher [employer] EDMS Dean Miller MD MD rn Slawson, Ashby, RN RN as6 Katherine Craven RN RN jw7 Francine Colby RN RN pf1 Bronson Bolden Corrections: (The following items were deleted from the chart) 19:38 19:27 PMHx: dementia without behavioral disturbances; jw7 jw7 19:38 19:27 PMHx: Anemia; jw7 jw7 19:38 19:27 PMHx: Hypertensive disorder; jw7 jw7 19:38 19:27 PMHx: GERD; jw7 jw7 : 19:27 PMHx: epilepsy; jw7 jw7 :38 19:27 PMHx: Lupus erythematosus; jw7 jw7 : 19:27 PMHx: Fibromyalgia; jw7 jw7 : 19:27 PMHx: Hypothyroidism; jw7 jw7 : 19:27 PMHx: Hyperlipidemia; jw7 jw7 : 19:27 PMHx: vitamin d deficiency; jw7 jw7 : 19:27 PMHx: insomnia; jw7 jw7 :38 19:27 PMHx: peptic ulcer; jw7 jw7 :38 19:27 PMHx: CVA; jw7 jw7 :38 19:27 PMHx: protein-calorie malnutrition; jw7 jw7 :38 19:27 PMHx: angina pectoris; jw7 jw7
--- NOTE | 2023-05-08 22:21 | EDPHYS ---
Physician Documentation [facility] Name: Jennifer Petty Age: 62 yrs Sex: Female : 1960 Arrival Date: 05/08/2023 Time: 19:14 Bed IW10 Private MD: ED Physician Dean Miller HPI: 05/07 20:34 This 62 yrs old Female presents to ER via EMS with complaints of high blood pressure. rn 20:34 Sent from retirement after a few days of high blood pressure elevation and blood rn pressure not coming down as they would like. Patient denies any headache or focal neurological deficit. Denies chest pain or shortness of breath. No abdominal pain. Patient reports lately has been having increased pain over the last month or longer from the right hip. Has been evaluated for this and told bursitis arthritis as the cause. No recent trauma. Patient sees pain management and has been having trouble getting her pain medication to where she would like it. No acute changes in pain.. Onset: The symptoms/episode began/occurred at an unknown time. Severity of symptoms: At their worst the symptoms were moderate in the emergency department the symptoms are unchanged. The patient has experienced similar episodes in the past. The patient has been recently seen by a physician:. Historical: - Allergies: 19:27 Adhesives; jw7 19:27 Baclofen; jw7 19:27 Ciprofloxacin; jw7 19:27 Cymbalta; jw7 19:27 Depakote; jw7 19:27 GABAPENTIN; jw7 19:27 iodine I 131 Tosutumomab; jw7 19:27 Lisinopril; jw7 19:27 Losartan; jw7 19:27 Macrobid; jw7 19:27 Midrin; jw7 19:27 Robaxin; jw7 19:27 Septra; jw7 19:27 Morphine; jw7 19:27 Sinografin; jw7 19:27 topiramate; jw7 19:27 Toradol; jw7 19:27 tramadol; jw7 - Home Meds: 19:27 atorvastatin 10 mg Oral tablet [Active]; Colace 100 mg Oral capsule [Active]; diltiazem jw7 HCl 120 mg Oral tablet [Active]; famotidine 40 mg Oral tablet [Active]; furosemide 20 mg Oral tablet [Active]; hydroxychloroquine sulfate (bulk) 200 mg [Active]; lactobacillus acidophilus (bulk) [Active]; levetiracetam 1,000 mg oral tablet [Active]; Plavix 75 mg Oral tablet [Active]; propranolol 20 mg oral tablet 3 tabs every 8 hours [Active]; ibuprofen 200 mg oral tablet 2 tabs every 6 hours [Active]; ipratropium-albuterol 0.5 mg-3 mg(2.5 mg base)/3 mL Inhl Solution for Nebulization [Active]; oxycodone 7.5 mg Oral tablet 1 tab every 8 hours [Active]; amitriptyline 100 mg Oral tablet [Active]; Zofran 4 mg Oral [Active]; Ana-Tussin 100 mg/5 mL oral liquid 10 mL every 4 hours for cough [Active]; Cepacol Sore Throat (martin-men) 15-3.6 mg mucous membrane lozenge 1 lozenge every 2 hours for sore throat [Active]; Acetaminophen Extra Strength 500 mg oral tablet 2 tabs every 6 hours [Active]; hydralazine 25 mg Oral tablet 1 tab daily [Active]; Imodium Oral [Active]; - PMHx: 19:27 Allergic rhinitis; jw7 - Immunization history:: Adult Immunizations up to date, Client reports receiving the 2nd dose of the Covid vaccine, Pneumococcal vaccine is up to date, Flu vaccine is up to date. - Social history:: Smoking status: Patient denies any tobacco usage or history of. Patient/guardian denies using alcohol, street drugs, IV drugs. - Family history:: not pertinent. - Hospitalizations: : No recent hospitalization is reported. ROS: 20:34 Constitutional: Negative for fever, chills, and weight loss, Neck: Negative for injury, rn pain, and swelling, Cardiovascular: Negative for chest pain, palpitations, and edema, Respiratory: Negative for shortness of breath, cough, wheezing, and pleuritic chest pain, Abdomen/GI: Negative for abdominal pain, nausea, vomiting, diarrhea, and constipation, Back: Negative for injury and pain, MS/Extremity: Positive for right hip pain Skin: Negative for injury, rash, and discoloration, Neuro: Negative for headache, weakness, numbness, tingling, and seizure, Exam: 20:34 Constitutional: This is a well developed, well nourished patient who is awake, alert, rn and in no acute distress. Head/Face: Normocephalic, atraumatic. Eyes: Pupils equal round and reactive to light, extra-ocular motions intact. Neck: Trachea midline, no masses palpated, and no cervical lymphadenopathy. Supple, full range of motion without nuchal rigidity, or vertebral point tenderness. No Meningismus. Cardiovascular: Regular rate and rhythm. No pulse deficits. Respiratory: No increased work of breathing, no retractions or nasal flaring. Abdomen/GI: Soft, nontender, no pulsatile masses Back: No spinal tenderness MS/ Extremity: Pulses equal, no cyanosis. Neurovascular intact. Mild painful range of motion right hip. No gross deformity. Neuro: Awake and alert, GCS 15, oriented to person, place, time, and situation. Cranial nerves II-XII grossly intact. Motor strength 5/5 in all extremities. Sensory grossly intact. Vital Signs: 19:25 BP 180 / 106; Pulse 69; Resp 18 S; Temp 98.1(O); Pulse Ox 97% on R/A; Weight 83.91 kg; [facility] Height 5 ft. 9 in. ; Pain 10/10; 21:00 BP 174 / 154; Pulse 65; Resp 17 S; Pulse Ox 98% on R/A; [facility] 21:39 BP 147 / 103; rn 22:00 BP 143 / 103; Pulse 63; Resp 17 S; Pulse Ox 97% on R/A; [facility] 22:19 BP 141 / 93; rn 23:00 BP 141 / 93; Pulse 65; Resp 16 S; Pulse Ox 99% on R/A; [facility] 19:25 Body Mass Index 27.32 (83.91 kg, 175.26 cm) [facility] 19:25 Pain Scale: Adult [facility] MDM: 19:20 Patient medically screened. rn 22:19 Differential Diagnosis Asymptomatic hypertension. Chronic pain. Bursitis. Arthritis. rn Radiculopathy.. Data reviewed: vital signs, nurses notes, lab test result(s), EKG, radiologic studies, CT scan, and as a result, I will discharge patient. Counseling: I had a detailed discussion with the patient and/or guardian regarding the historical points, exam findings, and any diagnostic results supporting the discharge/admit diagnosis, lab results, radiology results, the need for outpatient follow up, to return to the emergency department if symptoms worsen or persist or if there are any questions or concerns that arise at home. Counseling: I had a detailed discussion with the patient and/or guardian regarding the presence of at least one elevated blood pressure reading (>120/80) during this emergency department visit. Response to treatment: the patient's symptoms have markedly improved after treatment, and as a result, I will discharge patient. Special discussion: I have referred the patient to see his PCP for further evaluation of high blood pressure. Based on the history and exam findings, there is no indication for further emergent testing or inpatient evaluation. I discussed with the patient/guardian the need to see the primary care provider for further evaluation of the symptoms. ED course: No endorgan damage identified by blood work and workup. CT abdomen pelvis no acute findings, no aneurysm or vascular pathology. Blood pressure has improved now that pain better controlled. Will discharge back to [facility] for continued blood pressure management. Does not require emergent admission at this time.. 05/07 19:21 Order name: Basic Metabolic Panel; Complete Time: 20: rn 05/07 19:21 Order name: CBC with Diff; Complete Time: 20: rn 05/07 19:21 Order name: NT PRO-BNP; Complete Time: 20: rn 05/07 19:21 Order name: PT-INR; Complete Time: 20: rn 05/07 19:21 Order name: Troponin HS; Complete Time: 20:43 rn 05/07 19:21 Order name: XRAY Chest (1 view); Complete Time: 20: rn 05/07 19:45 Order name: Abdomen ; Complete Time: 20:33 EDOH 05/07 19:21 Order name: EKG; Complete Time: 19: rn 05/07 19:21 Order name: Cardiac monitoring; Complete Time: 21:02 rn 05/07 19:21 Order name: EKG - Nurse/Tech; Complete Time: 21: rn 05/07 19:21 Order name: IV Saline Lock; Complete Time: 20: rn 05/07 19:21 Order name: Labs collected and sent; Complete Time: 20: rn 05/07 19:21 Order name: O2 Per Protocol; Complete Time: 20: rn 05/07 19:21 Order name: O2 Sat Monitoring; Complete Time: 20:20 rn Administered Medications: 20:19 Drug: HYDROmorphone IVP 1 mg IVP once Route: IVP; Site: left forearm; jw7 23:27 Follow up: Response: No adverse reaction; Marked relief of symptoms; Pain is decreased jw7 20:20 Drug: Ondansetron IVP 4 mg IVP once; over 2 minutes Route: IVP; Site: left forearm; jw7 23:27 Follow up: Response: No adverse reaction jw7 21:01 Drug: fentaNYL (PF) IVP 50 mcg IVP once Route: IVP; Site: left forearm; jw7 23:27 Follow up: Response: No adverse reaction; Marked relief of symptoms; Pain is decreased jw7 21:01 Drug: cloNIDine PO 0.2 mg PO once Route: PO; jw7 23:27 Follow up: Response: No adverse reaction; Marked relief of symptoms; Blood pressure is jw7 lowered 23:26 Drug: fentaNYL (PF) IVP 50 mcg IVP once Route: IVP; Site: left forearm; jw7 23:28 Follow up: Response: No adverse reaction; Marked relief of symptoms; Pain is decreased jw7 Disposition Summary: 05/08/23 22:21 Discharge Ordered Notes: Location: Home rn Problem: an ongoing problem rn Symptoms: have improved rn Condition: Stable rn Diagnosis - Essential (primary) hypertension rn Followup: rn - With: Private Physician - When: As needed - Reason: Recheck today's complaints, Re-evaluation by your physician Discharge Instructions: - Discharge Summary Sheet rn - Chronic Pain, Adult rn - Hypertension, Adult rn - Managing Your Hypertension rn Forms: - Medication Reconciliation Form rn - Thank You Letter rn - Antibiotic journalist - Prescription Opioid Use rn - Patient Portal Instructions rn - Leadership Thank You Letter rn - SBAR form ty Signatures: Dispatcher [employer] EDDean Garcia MD MD rn Waits, Jodi, RN RN jw7 Corrections: (The following items were deleted from the chart) 19:21 19:21 Abdomen Pelvis W Con+[id number].[id number] ordered. EDOH EDMS 19:38 19:27 PMHx: dementia without behavioral disturbances; jw7 jw7 19:38 19:27 PMHx: Anemia; jw7 jw7 19:38 19:27 PMHx: Hypertensive disorder; jw7 jw7 19:38 19:27 PMHx: GERD; jw7 jw7 19:38 19:27 PMHx: epilepsy; jw7 jw7 :38 19:27 PMHx: Lupus erythematosus; jw7 jw7 :38 19:27 PMHx: Fibromyalgia; jw7 jw7 :38 19:27 PMHx: Hypothyroidism; jw7 jw7 :38 19:27 PMHx: Hyperlipidemia; jw7 jw7 :38 19:27 PMHx: vitamin d deficiency; jw7 jw7 :38 19:27 PMHx: insomnia; jw7 jw7 :38 19:27 PMHx: peptic ulcer; jw7 jw7 :38 19:27 PMHx: CVA; jw7 jw7 :38 19:27 PMHx: protein-calorie malnutrition; jw7 jw7 :38 19:27 PMHx: angina pectoris; jw7 jw7
[2023-05-09 07:49] VITALS: BP 141/93; TEMP 98.1; O2SAT 99
--- NOTE | 2023-05-09 13:39 | EKG ---
Test Date: 2023-05-08 Test Time: 19:37:32 Therapy Site Coordinator: MACKENZIE MEASUREMENT RESULTS: Intervals: Rate: 60 [place]: 202 QRSD: 86 QT: 456 QTc: 456 [place]: P: 49 [place]: 202 QRS: 50 T: 47 INTERPRETIVE STATEMENTS: Electronic atrial pacemaker Compared to ECG 07/23/2022 10:34:59 No significant changes Electronically Signed On 05-09-23 13:36:22 CDT by Lucas Luis
== END 2023-05-08 23:36 | disposition home or self-care (01) ==
LOC: ER 19:14
DX: I10 Essential (primary) hypertension (principal); Z79.01 Long term (current) use of anticoagulants; Z88.1 Allergy status to other antibiotic agents; Z88.5 Allergy status to narcotic agent; Z88.8 Allergy status to other drugs, medicaments and biological substances; Z91.048 Other nonmedicinal substance allergy status
CPT/HCPCS: 93005; 85025; 80048; 36415; 85610; 84484; 83880; 74176; 71045; 96375; 96374; 99284; J3010 ×2; J1170; J2405

== ENCOUNTER 2023-06-11 17:02 | Emergency (ER) | payer OTHER ==
--- OUTSIDE RECORDS SUMMARY | 2023-06-11 17:10 | XMS REPORT | Continuity of Care Document ---
Author Name Unknown Address [address] [facility] [address] [place] [address] [facility] Address [address] [facility] [address] [place] [address] Care Team Providers Care Claims Analyst Name Role Phone BALA MANUEL Primary Care Physician Unavailab CAROLA Israel Attending Clinician Unavailable MEL CARRILLO Attending Clinician Unav ailMEL Hutson Attending Clinician Unav ailable FRANKLYN SCHWARTZ Attending Clinician Unavail able FRANKLYN SCHWARTZ Attending Clinician Unavail able CRISTAL ONTIVEROS Attending Clinician Unavailable VERONICA LANE Attending Clinician Melissa THAI Abreu Attending Clinician UnavailWANDA Murdock Attending Clinician UnavailWanda Murdock MD Attending Clinician [phone] Sheryl Ramesh MD Attending Clinician + Doctor Unassigned, [place] Attending Clinician U Thai Anguiano MD Attending Clinician [phone] Irais Benson MD Attending Clinician +[phone] IRAIS BENSON Attending Clinician Unavailable Cristal Katz Attending Clinician [phone] EDIL FENG Attending Clinician Unavailable Edil Feng MD Attending Clinician [phone] Carola Cruz MD Attending Clinician [phone] [facility] Attending Clinician Unavailable Mera MD, Adalberto Attending Clinician [phone] LUDMILA RUIZ Attending Clinician Unavailable Joseph AMIN, Ludmila Attending Clinician [phone] KRISTI GUZMAN Attending Clinician KRISTI Alston Attending Clinician Solitario Shaw MD, Dagoberto Attending Clinician [phone] DAGOBERTO SHAW Attending Clinician Unavailable Heaven Walter RN Attending Clinician Unava abdi Peralta MD, Marco A Abbott Attending Clinician + BRENT WELLS Attending Clinician UnavailCHARLOTTE Enrique Attending Clinician Unavaila maribell MUNOZ, [place] Attending Clinician [phone] Arina Ramsay RN Attending Clinician Unavailable PARTICIA BOLAÑOS Attending Clinician Unavailable Noel Richmond DO Attending Clinician +[phone] Tom Lopez MD Attending Clinician + Patricia Bolaños MD Attending Clinician [phone] Franklyn Schwartz MD Attending Clinician [phone] Alta Ma MD Attending Clinician + [phone] Jamey Bai MD Attending Clinician + [phone] SHAISTA GUERRA Attending Clinician Unavailalison Guerra MD, Shaista Attending Clinician [phone] Only, Adc Test Attending Clinician Unavailable Mielna OROPEZA Attending Clinician Unavailable Milena Dickey Attending Clinician [phone] Crystal MUNOZ, Maryan F Attending Clinician [phone] Kylee Delarosa MD Attending Clinician + [phone] Leslye Franz MD Attending Clinician [phone] Radha Holden MD Attending Clinician [phone] Haritha AMIN, [facility] Attending Clinician +[phone] BALDEMAR MEJIAS Attending Clinician Unavaila maribell Mejias MD, Baldemar Kate Attending Clinician [phone] Dagoberto AMIN, Ilana Valencia Attending Clinician Amarilis Bergman DO Attending Clinician [phone] PREMA MENDEZ Attending Clinician Unavailable TRINIDAD INFANTE Attending Clinician Unavailab ILANA Young Attending Clinician Un available BEATRIS HOLT Attending Clinician Unavailable ANNEMARIE EDGAR Attending Clinician Unavailable TYLER BASS Attending Clinician Unavailable LUDMILA MERLOS Attending Clinician Unavailable RADHA MCINTOSH Attending Clinician Unavaila CAR Garcia Attending Clinician Unavaila CAR Garcia Attending Clinician Unavaila LUDMILA Viveros Admitting Clinician Unavailable EDIL FENG Admitting Clinician Unavailable DAGOBERTO SHAW Admitting Clinician Unavailable Dagoberto Shaw MD Admitting Clinician [phone] CHARLOTTE VILLALPANDO Admitting Clinician Unavaila PATRICIA Dunn Admitting Clinician Unavailable Patricia Bolaños MD Admitting Clinician [phone] Ludmila Ruiz MD Admitting Clinician [phone] SHAISTA GUERRA Admitting Clinician UnavailShaista Ahumada MD Admitting Clinician [phone] Milena OROPEZA Admitting Clinician Unavailable Leslye Franz MD Admitting Clinician [phone] LESLYE FRANZ Admitting Clinician Unavailable DENA ESTEBAN Admitting Clinician Unavailable ERLIN SCHWARTZ Admitting Clinician Unavailab RADHA Florentino Admitting Clinician Unavailmalcolm reyna Payers Payer Name Policy Type Policy Number Effective Date Expirati on Date Source [facility]ERRY [facility] [id number] 2019 00:00:00 MEDICAID [facility] [id number] 2017 00:00:00 [employer] [id number] 2022 00:00:00 [facility] [id number] 2022 00:00:00 Problems Condition Name Condition Details Condition Category Status Onset Date Resolution Date Last Treatment Date Treating Clinician Comments Source Excess skin of abdominal wall Excess skin of abdominal wall Disease Active 2024-0 4-12 00:00: 00 [facility] Preop cardiovasc ular exam Preop cardiovasc ular exam Disease Active 2022-02 2-07 00:00: 00 [facility] SVT (supravent ricular tachycardi a) SVT (supravent ricular tachycardi a) Disease Active 2022-02 2-07 00:00: 00 [facility] Slow transit constipati on Slow transit constipati on Disease Active 4-27 00:00: 00 [facility] Incontinen ce of feces with fecal urgency Incontinen ce of feces with fecal urgency Disease Active 4-27 00:00: 00 [facility] Ventral hernia without obstructio n or gangrene Ventral hernia without obstructio n or gangrene Disease Active 2021-02 1-21 00:00: 00 [facility] Incisional hernia, without obstructio n or gangrene Incisional hernia, without obstructio n or gangrene Disease Active 8-28 00:00: 00 [facility] Frequent falls Frequent falls Disease Active 4-07 00:00: 00 [facility] Anemia, unspecifie d Anemia, unspecifie d Disease Active 3-30 00:00: 00 [facility] Other specified postproced ural states Other specified postproced ural states Disease Active 3-24 00:00: 00 [facility] Attention to colostomy Attention to colostomy Disease Active 3-16 00:00: 00 [facility] Colostomy status Colostomy status Disease Active 0 3-16 00:00: 00 [facility] Stercoral ulcer of large intestine Stercoral ulcer of large intestine Disease Active 3-01 00:00: 00 Overview: Formattin g of this note might be different from the original. Added automatic ally from request for surgery [id number] [facility] Colostomy in place Colostomy in place Disease Active 2-11 00:00: 00 Overview: Formattin g of this note might be different from the original. Added automatic ally from request for surgery [id number] [facility] GIB (gastroint estinal bleeding) GIB (gastroint estinal bleeding) Disease Active 02-15 00:00: 00 [facility] Melena Melena Disease Active 02-14 00:00: 00 Overview: Formattin g of this note might be different from the original. Added automatic ally from request for surgery [id number] [facility] Parastomal hernia without obstructio n or gangrene Parastomal hernia without obstructio n or gangrene Disease Active 2020-02 0-19 00:00: 00 [facility] Syncope and collapse Syncope and collapse Disease Active 09-15 00:00: 00 [facility] Dyslipidem ia Dyslipidem ia Disease Active 09-15 00:00: 00 [facility] Sinus pause status post PPM Sinus pause status post PPM Disease Active 09-15 00:00: 00 [facility] Hypokalemi a Hypokalemi a Disease Active 09-15 00:00: 00 [facility] Pain, unspecifie d Pain, unspecifie d Disease Active 06-02 00:00: 00 [facility] 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 Disease Active 05-23 00:00: 00 [facility] 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 Disease Active 05-23 00:00: 00 [facility] Cerebral infarction , unspecifie d Cerebral infarction , unspecifie d Disease Active 05-23 00:00: 00 [facility] Diaphragma tic hernia with obstructio n, without gangrene Diaphragma tic hernia with obstructio n, without gangrene Disease Active 416 00:00: 00 [facility] Diverticul osis of large intestine without perforatio n or abscess without bleeding Diverticul osis of large intestine without perforatio n or abscess without bleeding Disease Active 16 00:00: 00 [facility] Hypertensi ve heart disease without heart failure Hypertensi ve heart disease without heart failure Disease Active 16 00:00: 00 [facility] Hepatomega ly, not elsewhere classified Hepatomega ly, not elsewhere classified Disease Active 16 00:00: 00 [facility] terminologist (current) use of opiate analgesic [facility] (current) use of opiate analgesic Disease Active 16 00:00: 00 [facility] Muscle weakness (generaliz ed) Muscle weakness (generaliz ed) Disease Active 05-23 00:00: 00 [facility] Other abnormalit ies of gait and mobility Other abnormalit ies of gait and mobility Disease Active 05-23 00:00: 00 [facility] Other lack of coordinati on Other lack of coordinati on Disease Active 05-23 00:00: 00 [facility] Other seizures Other seizures Disease Active 16 00:00: 00 [facility] Personal history of colonic polyps Personal history of colonic polyps Disease Active 05-23 00:00: 00 [facility] Polyneurop athy, unspecifie d Polyneurop athy, unspecifie d Disease Active 16 00:00: 00 [facility] Systemic lupus erythemato liliya, unspecifie d Systemic lupus erythemato liliya, unspecifie d Disease Active 16 00:00: 00 [facility] Noncomplia nce with treatment regimen Noncomplia nce with treatment regimen Disease Active 05-19 00:00: 00 [facility] Acute blood loss anemia Acute blood loss anemia Disease Active 05-14 00:00: 00 [facility] Perforatio n of sigmoid colon s/p [facility]'s on 05/13/2020 Perforatio n of sigmoid colon s/p [facility]'s on 05/13/2020 Disease Active 406 00:00: 00 [facility] Therapeuti c opioid-ind uced constipati on (OIC) Therapeuti c opioid-ind uced constipati on (OIC) Disease Active 4 00:00: 00 [facility] Chronic, continuous use of opioids Chronic, continuous use of opioids Disease Recurre nce 05-13 00:00: 00 Overview: Formattin g of this note might be different from the original. Percocet [facility] Peritoniti s Peritoniti s Disease Active 05-13 00:00: 00 [facility] Atelectasi s Atelectasi s Disease Active 05-13 00:00: 00 [facility] Perforatio n of intestine (nontrauma tic) Perforatio n of intestine (nontrauma tic) Disease Active 05-13 00:00: 00 [facility] Encounter for surgical aftercare following surgery on the digestive system Encounter for surgical aftercare following surgery on the digestive system Disease Active 05-13 00:00: 00 [facility] Klebsiella pneumoniae (k. pneumoniae ) as the cause of diseases classified elsewhere Klebsiella pneumoniae (k. pneumoniae ) as the cause of diseases classified elsewhere Disease Active 05-13 00:00: 00 [facility] Opioid use, unspecifie d, uncomplica jung Opioid use, unspecifie d, uncomplica jung Disease Active 05-13 00:00: 00 [facility] Stroke of uncertain pathology Stroke of uncertain pathology Disease Active 3-13 00:00: 00 [facility] Discoid lupus Discoid lupus Disease Active 2- 00:00: 00 [facility] History of systemic lupus erythemato liliya (SLE) History of systemic lupus erythemato liliya (SLE) Disease Active 2-10 00:00: 00 [facility] History of seizure History of seizure Disease Active 2018-02 2-05 00:00: 00 [facility] Mixed hyperlipid emia Mixed hyperlipid emia Disease Active 10-27 00:00: 00 [facility] Prediabete s Prediabete s Disease Active 05-17 00:00: 00 [facility] Kidney lesion, [place], right Kidney lesion, [place], right Disease Active 05-01 00:00: 00 Overview: Formattin g of this note might be different from the original. likely angiolipo ma per Radiology [facility] Kidney lesion, [place], right Kidney lesion, [place], right Disease Active 05-01 00:00: 00 Overview: Formattin g of this note might be different from the original. likely angiolipo ma per Radiology [facility] Hyperthyro idism Hyperthyro idism Disease Active 2017-02 00:00: 00 [facility] Obesity (BMI 30-39.9) Obesity (BMI 30-39.9) Disease Active 2017-02 2 00:00: 00 [facility] Vitamin D deficiency Vitamin D deficiency Disease Active 10-27 00:00: 00 [facility] Chronic insomnia Chronic insomnia Disease Active 10-16 00:00: 00 [facility] Chronic migraine without aura without status migrainosu s, not intractabl e Chronic migraine without aura without status migrainosu s, not intractabl e Disease Active 10-16 00:00: 00 [facility] Neuropathy Neuropathy Disease Active 10-16 00:00: 00 [facility] Pacemaker Pacemaker Disease Recurre nce 10-16 00:00: 00 [facility] Essential hypertensi on Essential hypertensi on Disease Active 10-16 00:00: 00 [facility] History of hepatitis C History of hepatitis C Disease Active 10-16 00:00: 00 [facility] PUD (peptic ulcer disease) PUD (peptic ulcer disease) Disease Active 10-16 00:00: 00 [facility] Gastroesop hageal reflux disease, esophagiti s presence not specified Gastroesop hageal reflux disease, esophagiti s presence not specified Disease Active 10-16 00:00: 00 [facility] History of urinary tract surgery History of urinary tract surgery Disease Active 10-16 00:00: 00 [facility] Fibromyalg ia Fibromyalg ia Disease Active 10-16 00:00: 00 [facility] Parasomnia Parasomnia Disease Active 10-16 00:00: 00 [facility] Anxiety Anxiety Disease Active 02-20 00:00: 00 Overview: Formattin g of this note might be different from the original. Formattin g of this note might be different from the original. H/o cx pain [facility] Vitamin B12 deficiency Vitamin B12 deficiency Disease Active 02-20 00:00: 00 [facility] IBS (irritable bowel syndrome) IBS (irritable bowel syndrome) Disease Active 2007-02 00:00: 00 [facility] Visceral hyperalges ia Visceral hyperalges ia Disease Active 2007-02 00:00: 00 [facility] Allergic rhinitis Allergic rhinitis Disease Active [facility] Cyst of left kidney Cyst of left kidney Disease Active [facility] Allergies, Adverse Reactions, Alerts Allergy Name Allergy Type Status Severity Reaction(s) Onset Date Inactive Date Treating Clinician Comments Source PREGABAL IN DRUG INGREDI Active Low Swelling 18 00:00: 00 [facility] Pregabal in Propensi ty to adverse reaction s Active Swelling 18 00:00: 00 [facility] TOSITUMO MAB DRUG INGREDI Active Unknown-Cmnt 3-02 00:00: 00 [facility] Tositumo mab Propensi ty to adverse reaction s Active Unknown - See comments 3-02 00:00: 00 [facility] Gabapent in Drug Allergy Active Palpitations 3-16 00:00: 00 [facility] GABAPENT IN DRUG INGREDI Active Palpitations 3-16 00:00: 00 [facility] Losartan Propensi ty to adverse reaction s Active Cough 0 5-27 00:00: 00 [facility] LOSARTAN DRUG INGREDI Active COUGH 2020-0 07-03 00:00: 00 [facility] Lisinopr il Propensi ty to adverse reaction s Active Cough 2018-0 10-16 00:00: 00 [facility] LISINOPR IL DRUG INGREDI Active COUGH 2018-0 10-16 00:00: 00 [facility] Baclofen Propensi ty to adverse reaction s Active Hallucinatio ns 0 09-28 00:00: 00 [facility] Ciproflo xacin Propensi ty to adverse reaction s Active Hives 0 09-28 00:00: 00 [facility] Duloxeti ne Propensi ty to adverse reaction s Active Other - See comments 0 09-28 00:00: 00 Transamin itis [facility] Divalpro ex Sodium Propensi ty to adverse reaction s Active Hives 0 09-28 00:00: 00 [facility] Gabapent in Enacarbi l Propensi ty to adverse reaction s Active Unknown - See comments 0 09-28 00:00: 00 [facility] Nitrofur antoin Monohyd/ M-Cryst Propensi ty to adverse reaction s Active Hives 0 09-28 00:00: 00 [facility] Isometh- Dichlora l-Acetam inophn Propensi ty to adverse reaction s Active Shortness of Breath 0 09-28 00:00: 00 [facility] Morphine Sulfate Propensi ty to adverse reaction s Active Hives 0 09-28 00:00: 00 [facility] Methocar bamol Propensi ty to adverse reaction s Active Diarrhea 0 09-28 00:00: 00 [facility] Septra I.V. Propensi ty to adverse reaction s Active Shortness of Breath 0 09-28 00:00: 00 [facility] Diatrizo ate And Iodipami de Amber Propensi ty to adverse reaction s Active Hives 0 09-28 00:00: 00 [facility] Topirama te Propensi ty to adverse reaction s Active Other - See comments 09-28 00:00: 00 Tingling, overwhelm ing feeliing [facility] Ketorola c Trometha mine Propensi ty to adverse reaction s Active Other - See comments 09-28 00:00: 00 Restless legs [facility] Tramadol Propensi ty to adverse reaction s Active Other - See comments 09-28 00:00: 00 shaky legs [facility] Adhesive Propensi ty to adverse reaction s Active Other - See comments 09-28 00:00: 00 redness [facility] Iodine And Iodide Containi ng Products Propensi ty to adverse reaction s Active Hives 09-28 00:00: 00 [facility] ADHESIVE Drug Class Active Other-Cmnt 09-28 00:00: 00 [facility] BACLOFEN DRUG INGREDI Active Hallucinates 09-28 00:00: 00 [facility] CIPROFLO XACIN DRUG INGREDI Active Hives 09-28 00:00: 00 [facility] IODINE AND IODIDE CONTAINI NG PRODUCTS Drug Class Active Hives 09-28 00:00: 00 [facility] DULOXETI NE DRUG INGREDI Active Other-Cmnt 09-28 00:00: 00 [facility] DIVALPRO EX SODIUM DRUG INGREDI Active Hives 09-28 00:00: 00 [facility] GABAPENT IN ENACARBI L DRUG INGREDI Active Unknown-Cmnt 09-28 00:00: 00 [facility] NITROFUR ANTOIN MONOHYD/ M-CRYST DRUG Active Hives 09-28 00:00: 00 [facility] ISOMETH- DICHLORA L-ACETAM INOPHN DRUG Active Hives 09-28 00:00: 00 [facility] MORPHINE SULFATE DRUG INGREDI Active Hives 09-28 00:00: 00 [facility] METHOCAR BAMOL DRUG INGREDI Active Diarrhea 09-28 00:00: 00 [facility] SEPTRA I.V. DRUG Active Hives 09-28 00:00: 00 [facility] DIATRIZO ATE AND IODIPAMI DE AMBER DRUG Active Hives 09-28 00:00: 00 [facility] TOPIRAMA TE DRUG INGREDI Active Other-Cmnt 09-28 00:00: 00 [facility] KETOROLA C TROMETHA MINE DRUG INGREDI Active Hives 09-28 00:00: 00 [facility] TRAMADOL DRUG INGREDI Active Other-Cmnt 09-28 00:00: 00 [facility] Social History Social Habit Start Date Stop Date Quantity Comments Source [facility] History SDOH Alcohol Frequency [facility] History SDOH Alcohol Std Drinks [facility] History SDOH Alcohol Binge [facility] Alcohol intake 2023-06-07 00:00:00 2023-06-07 00:00:00 Current drinker of alcohol (finding) [facility] History of Social function 2022-10-07 00:00:00 2022-10-07 00:00:00 [facility] Exposure to SARS-CoV-2 (event) 2022-05-24 00:00:00 2022-06-03 09:25:00 Not sure [facility] Tobacco use and exposure 2021-09-14 00:00:00 2021-09-14 00:00:00 Smokeless tobacco non-user [facility] Education - What is the highest level of school you have completed or the highest degree you have received? 2020-01-11 00:00:00 2020-01-11 00:00:00 Associate degree: academic program [facility] Alcohol Comment 2018-10-10 00:00:00 2018-10-10 00:00:00 Rare occasions [facility] Sex Assigned At 1960 00:00:00 1960 00:00:00 [facility] Smoking Status Start Date Stop Date Source Never smoked tobacco [facility] Medications Ordered Medication Name Filled Medication Name Start Date Stop Date Current Medication? Ordering Clinician Indication Dosage Frequency Signature (SIG) Comments Components Source clobetasoL 0.05 % cream 2022-02 0 00:00: 00 Yes [id number] Apply twice daily to feet where the redness. [facility] propranoloL 40 mg tablet 2022-02 09:11: 11-09 00:00 :00 No 40mg Take 40 mg by mouth 3 (three) times daily. [facility] MELOXICAM ORAL 2022-02 09:: 11-09 00:00 :00 No 15mg Take 15 mg by mouth. [facility] cephALEXin 500 mg capsule 2022-02 09:: 11-09 00:00 :00 No 500mg Take 1 capsule by mouth 4 (four) times daily. [facility] tacrolimus 0.1 % ointment 11-01 00:00: 00 Yes [id number] Apply to area(s) 2 (two) times daily. Safe for the face. [facility] doxycycline monohydrate 100 mg capsule 11-01 00:00: 00 Yes [id number] 100mg Take 1 capsule by mouth in the morning and 1 capsule in the evening. [facility] Compression Socks, Medium Misc 11-01 00:00: 00 Yes [id number] Use as directed [facility] atorvastati n 10 mg tablet 10-31 00:00: 00 Yes [facility] meloxicam 15 mg tablet 10-31 00:00: 00 Yes [facility] propranoloL 20 mg tablet 10-29 00:00: 00 Yes [facility] HYDROcodone -acetaminop hen 7.5-325 mg per tablet 10-26 11:14: 44 Yes 1{tbl} Take 1 tablet by mouth every 6 (six) hours as needed. [facility] oxyCODONE-a cetaminophe n 7.5-325 mg per tablet 10-25 00:00: 00 Yes [facility] hydrALAZINE 25 mg tablet 9-09 00:00: 00 Yes [facility] clobetasoL 0.05 % cream 8- 00:00: 00 12-06 00:00 :00 No [id number] Apply twice daily to feet where the redness. [facility] pyridoxine, VITAMIN B-6, 25 mg tablet 08-24 11:58: 31 Yes 25mg Take 1 tablet by mouth in the morning. [facility] cephALEXin 500 mg capsule 08-24 11:58: 31 Yes 500mg Take 1 capsule by mouth 4 (four) times daily. [facility] terbinafine HCL 1 % cream 08-24 00:00: 00 Yes [id number] Apply to area(s) 2 (two) times daily. [facility] cephALEXin 500 mg capsule 427 09:34: 27 Yes 500mg Take 1 capsule by mouth 4 (four) times daily. [facility] acetaminoph en 650 mg CR tablet 04-08 09:49: 35 Yes 650mg Take 1 tablet by mouth every 8 (eight) hours as needed for Pain. [facility] MELOXICAM ORAL 04-08 09:49: 35 Yes 15mg Take 15 mg by mouth. [facility] Lactobacill us acidoph-pec tin capsule 04-08 09:49: 35 Yes 1{capsu le} Take 1 capsule by mouth in the morning. [facility] loperamide (IMODIUM A-D) 2 mg capsule 04-08 09:49: 35 Yes 2mg Take 1 capsule by mouth every 4 (four) hours as needed for Diarrhea. [facility] HYDROcodone -acetaminop hen 7.5-325 mg per tablet 02-11 11:39: 30 Yes 1{tbl} Take 1 tablet by mouth every 6 (six) hours as needed. [facility] cetirizine 10 mg tablet 02-09 12:02: 37 Yes 10mg Take 10 mg by mouth daily. [facility] propranoloL 40 mg tablet 02-09 12:02: 37 Yes 40mg Take 40 mg by mouth 3 (three) times daily. [facility] pyridoxine, VITAMIN B-6, 25 mg tablet 02-09 12:02: 37 Yes 25mg Take 25 mg by mouth daily. [facility] acetaminoph en 650 mg CR tablet 02-09 12:02: 37 Yes 650mg Take 650 mg by mouth every 8 (eight) hours as needed for Pain. [facility] docusate 100 mg capsule 02-09 12:02: 37 Yes 100mg Take 100 mg by mouth daily. [facility] HYDROcodone -acetaminop hen 5-325 mg tablet 02-09 12:02: 37 Yes 1{tbl} Take 1 tablet by mouth every 6 (six) hours as needed. [facility] [facility] polyethylen e glycol 3350 (MIRALAX ORAL) 02-09 12:02: 37 Yes Take by mouth. [facility] furosemide 20 mg tablet 02-09 12:02: 37 Yes 20mg Take 20 mg by mouth in the morning. [facility] famotidine 40 mg tablet 02-09 12:02: 37 Yes 40mg Take 40 mg by mouth in the morning. [facility] cetirizine 10 mg tablet 2021-02 16:58: 27 Yes 10mg Take 10 mg by mouth daily. [facility] propranoloL 40 mg tablet 2021-02 16:58: 27 Yes 40mg Take 40 mg by mouth 3 (three) times daily. [facility] pyridoxine, VITAMIN B-6, 25 mg tablet 2021-02 16:58: 27 Yes 25mg Take 25 mg by mouth daily. [facility] acetaminoph en 650 mg CR tablet 2021-02 16:58: 27 Yes 650mg Take 650 mg by mouth every 8 (eight) hours as needed for Pain. [facility] docusate 100 mg capsule 2021-02 16:58: 27 Yes 100mg Take 100 mg by mouth daily. [facility] HYDROcodone -acetaminop hen 5-325 mg tablet 2021-02 16:58: 27 Yes 1{tbl} Take 1 tablet by mouth every 6 (six) hours as needed. [facility] polyethylen e glycol 3350 (MIRALAX ORAL) 2021-02 16:58: 27 Yes Take by mouth. [facility] furosemide (LASIX) 20 mg tablet 2021-02 16:58: 27 Yes 20mg Take 20 mg by mouth in the morning. [facility] famotidine 40 mg tablet 2021-02 16:58: 27 Yes 40mg Take 40 mg by mouth in the morning. [facility] ondansetron (ZOFRAN-ODT ) disintegrat ing tablet 4 mg 2021-02 14:35: 55 Yes 4mg 4 mg, Oral, Q6HPRN, Starting on Tue12/30/21 at 0835, Until Discontinu ed, Routine, Nausea and Vomiting (N/V) [facility] HYDROcodone -acetaminop hen (NORCO) 5-325 mg tablet 2021-02 00:00: 00 01-07 05:59 :00 No [id number] 1{tbl} Take 1 tablet by mouth every 6 (six) hours as needed for Pain (scale 7-10) for up to 7 days. Indication s: acute pain [facility] alum-mag hydroxide-s imeth (MAALOX PLUS / MAG-AL PLUS) 200-200-20 mg/5 mL suspension 30 mL 2021-02 20:00: 00 Yes 30mL 30 mL, Oral, TID, First dose on Tue12/29/21 at 1400, Until Discontinu ed, Routine [facility] acetaminoph en (TYLENOL) tablet 650 mg 2021-02 18:00: 00 Yes 650mg 650 mg, Oral, Q6H, First dose (after last modificati on) on Tue12/29/21 at 1200, Until Discontinu ed, Routine [facility] HYDROmorpho ne (DILAUDID) 10 mg/50 mL 0.9% NaCl FITNESS TRAINER 2021-02 16:30: 00 12-30 14:36 :58 No Patient Bolus Dose: 0.2 mg
Lock out Interval: 10 Minutes
Basal Rate: 0 mg/hr
F our Hour Dose Limit: 4 mg
IV Infusion, 50 mL, CONTINUOUS , Starting on Tue12/29/21 at 1030, Until Tue12/30/21 at 0836 [facility] HYDROcodone -acetaminop hen (NORCO) 10-325 mg tablet 1 tablet 2021-02 15:24: 46 Yes 1{tbl} 1 tablet, Oral, Q4HPRN, Starting on Tue12/29/21 at 0924, Until Discontinu ed, Routine, Pain (scale 7-10) [facility] cyclobenzap rine (FLEXERIL) tablet 5 mg 2021-02 15:15: 00 Yes 5mg 5 mg, Oral, TID, First dose on Tue12/29/21 at 0915, Until Discontinu ed, Routine [facility] enoxaparin (LOVENOX) injection 40 mg 2021-02 15:00: 00 Yes 40mg 40 mg, Subcutaneo us, DAILY, First dose on Tue12/29/21 at 0900, Until Discontinu ed, Routine [facility] furosemide (LASIX) tablet 20 mg 2021-02 15:00: 00 Yes 20mg 20 mg, Oral, DAILY, First dose on Tue12/29/21 at 0900, Until Discontinu ed, Routine [facility] famotidine (PEPCID AC) tablet 40 mg 2021-02 15:00: 00 Yes 40mg 40 mg, Oral, DAILY, First dose on Tue12/29/21 at 0900, Until Discontinu ed, Routine [facility] atorvastati n (LIPITOR) tablet 80 mg 2021-02 03:00: 00 Yes 80mg 80 mg, Oral, QHS, First dose on Tue12/28/21 at 2100, Until Discontinu ed, Routine [facility] amitriptyli ne (ELAVIL) tablet 100 mg 2021-02 03:00: 00 Yes 100mg 100 mg, Oral, QHS, First dose on Tue12/28/21 at 2100, Until Discontinu ed, Routine [facility] levETIRAcet am (KEPPRA) tablet 1,000 mg 2021-02 02:00: 00 Yes 1000mg 1,000 mg, Oral, BID, First dose on Tue12/28/21 at 2000, Until Discontinu ed, Routine [facility] hydrOXYchlo roQUINE (PLAQUENIL) tablet 200 mg 2021-02 02:00: 00 Yes 200mg 200 mg, Oral, BID, First dose on Tue12/28/21 at 2000, Until Discontinu ed, Routine
Indicatio n: Rheumatic disorder [facility] HYDROmorpho ne (DILAUDID) 10 mg/50 mL 0.9% NaCl FITNESS TRAINER 2021-02 23:30: 00 12-29 13:39 :30 No Patient Bolus Dose: 0.2 mg
Lock out Interval: 10 Minutes
Basal Rate: 0 mg/hr
F our Hour Dose Limit: 4 mg
IV Infusion, 50 mL, CONTINUOUS , Starting on Tue12/28/21 at 1730, Until Tue12/29/21 at 0739 [facility] naloxone (NARCAN) injection 0.1 mg 2021-02 22:21: 08 Yes .1mg 0.1 mg, Slow IV Push, SEE-INSTRU CTIONS, Starting on Tue12/28/21 at 1621, Until Discontinu ed, Routine [facility] propranoloL (INDERAL) tablet 40 mg 2021-02 20:00: 00 Yes 40mg 40 mg, Oral, TID, First dose on Tue12/28/21 at 1400, Until Discontinu ed, Routine [facility] diltiazem (CARDIZEM) tablet 120 mg 2021-02 20:00: 00 Yes 120mg 120 mg, Oral, Q8H, First dose on Tue12/28/21 at 1400, Until Discontinu ed [facility] HYDROmorpho ne (DILAUDID) injection 0.2 mg 2021-02 19:13: 34 12-28 23:34 :16 No .2mg 0.2 mg, Slow IV Push, Q5MIN PRN, 10 doses, Starting on Tue12/28/21 at 1313, Until Tue12/28/21 at 1734, Routine, Pain (scale 7-10), PACU
Us e approved by (Faculty): PACU USE -ANESTHESI A SERVICE-HY DROMORPHON E INJECTIONS [facility] FENTanyl PF (SUBLIMAZE (PF)) injection 25 mcg 2021-02 19:13: 34 12-28 22:20 :00 No 25ug 25 mcg, Slow IV Push, Q5MIN PRN, 4 doses, Starting on Tue12/28/21 at 1313, Until Discontinu ed, Routine, Pain (scale 4-6), PACU [facility] acetaminoph en (TYLENOL) tablet 650 mg 2021-02 18:55: 08 12-29 13:47 :13 No 650mg 650 mg, Oral, Q6HPRN, Starting on Tue12/28/21 at 1255, Until Tue12/29/21 at 0747, Routine, Pain (scale 1-3) [facility] ondansetron (ZOFRAN (PF)) injection 4 mg 2021-02 18:54: 57 Yes 4mg 4 mg, Slow IV Push, Q6HPRN, Starting on Tue12/28/21 at 1254, Until Discontinu ed, Routine, Nausea and Vomiting (N/V) [facility] sugammadex (BRIDION) injection 2021-02 18:42: 00 12-28 19:04 :26 No IV Push, ONCE INTRA PROCEDURE, Starting on Tue12/28/21 at 1242, Until Tue12/28/21 at 1304, Routine, Intra-op [facility] ondansetron (ZOFRAN (PF)) injection 2021-02 18:37: 00 12-28 19:04 :26 No Slow IV Push, ONCE INTRA PROCEDURE, Starting on Tue12/28/21 at 1237, Until Tue12/28/21 at 1304, Routine, Intra-op [facility] PHENYLephri ne 1000 mcg/10 mL in 0.9% NaCl syringe 2021-02 18:10: 00 12-28 19:04 :26 No Slow IV Push, CONTINUOUS PRN, Starting on Tue12/28/21 at 1210, Until Tue12/28/21 at 1304, Routine, Intra-op [facility] PHENYLephri ne 1000 mcg/10 mL in 0.9% NaCl syringe 2021-02 17:38: 00 12-28 19:04 :26 No Slow IV Push, ONCE INTRA PROCEDURE, Starting on Tue12/28/21 at 1138, Until Tue12/28/21 at 1304, Routine, Intra-op [facility] furosemide (LASIX) 20 mg tablet 2021-02 17:34: 17 Yes 20mg Take 20 mg by mouth in the morning. [facility] MELOXICAM ORAL 2021-02 17:34: 17 Yes 15mg Take 15 mg by mouth. [facility] famotidine 40 mg tablet 2021-02 17:34: 17 Yes 40mg Take 40 mg by mouth in the morning. [facility] DILTIAZEM HCL ORAL 2021-02 17:34: 17 Yes 120mg Take 120 mg by mouth every 8 (eight) hours. [facility] ketamine (KETALAR) injection 2021-02 16:52: 00 12-28 19:04 :26 No Intravenou s, ONCE INTRA PROCEDURE, Starting on Tue12/28/21 at 1052, Until Tue12/28/21 at 1304, Routine, Intra-op [facility] bupivacaine (preserv free) (SENSORCAIN E MPF) 0.25 % (2.5 mg/mL) 22 mL, bupivacaine liposome (PF) (EXPAREL (PF)) 1.3 % (13.3 mg/mL) 266 mg, NaCl 0.9% (NS) 50 mL 2021-02 15:47: 00 12-28 19:03 :19 No PRN, Starting on Tue12/28/21 at 0947, Intra-op [facility] HYDROmorphO ne (DILAUDID) injection 2021-02 14:03: 00 12-28 19:04 :26 No Slow IV Push, ONCE INTRA PROCEDURE, Starting on Tue12/28/21 at 0803, Until Tue12/28/21 at 1304, Routine, Intra-op [facility] bupivacaine (preserv free) (SENSORCAIN E MPF) 0.25 % (2.5 mg/mL) injection 2021-02 14:03: 00 12-28 19:03 :19 No PRN, Starting on Tue12/28/21 at 0803, Until Tue12/28/21 at 1303, Routine, Intra-op [facility] dexamethaso ne (DECADRON PHOSPHATE) injection 2021-02 13:58: 00 12-28 19:04 :26 No IV Push, ONCE INTRA PROCEDURE, Starting on Tue12/28/21 at 0758, Until Tue12/28/21 at 1304, Routine, Intra-op [facility] midazolam (VERSED) injection 2021-02 13:48: 00 12-28 19:04 :26 No IV Push, ONCE INTRA PROCEDURE, Starting on Tue12/28/21 at 0748, Until Tue12/28/21 at 1304, Routine, Intra-op [facility] ceFAZolin (ANCEF) injection 2021-02 13:32: 00 12-28 19:04 :26 No Slow IV Push, ONCE INTRA PROCEDURE, Starting on Tue12/28/21 at 0732, Until Tue12/28/21 at 1304, SULAIMAN, Intra-op [facility] rocuronium (ZEMURON) injection 2021-02 13:23: 00 12-28 19:04 :26 No IV Push, ONCE INTRA PROCEDURE, Starting on Tue12/28/21 at 0723, Until Tue12/28/21 at 1304, Routine, Intra-op [facility] propofoL IV infusion 2021-02 13:22: 00 12-28 19:04 :26 No Slow IV Push, ONCE INTRA PROCEDURE, Starting on Tue12/28/21 at 0722, Until Tue12/28/21 at 1304, Routine, [facility] lidocaine 1% (XYLOCAINE) 100 mg/10 mL (1 %) injection 2021-02 13:22: 00 12-28 19:04 :26 No Intravenou s, ONCE INTRA PROCEDURE, Starting on Tue12/28/21 at 0722, Until Tue12/28/21 at 1304, Routine, Intra-op [facility] FENTanyl PF (SUBLIMAZE (PF)) injection 2021-02 13:22: 00 12-28 19:04 :26 No Intravenou s, ONCE INTRA PROCEDURE, Starting on Tue12/28/21 at 0722, Until Tue12/28/21 at 1304, Routine, Intra-op [facility] lactated ringers IV infusion 2021-02 13:19: 00 12-28 19:04 :26 No IV Infusion, CONTINUOUS PRN, Starting on Tue12/28/21 at 0719, Until Tue12/28/21 at 1304, Routine, Intra-op [facility] furosemide (LASIX) 20 mg tablet 2021-02 13:03: 19 Yes 20mg Take 20 mg by mouth in the morning. [facility] MELOXICAM ORAL 2021-02 13:03: 19 Yes 15mg Take 15 mg by mouth. [facility] famotidine 40 mg tablet 2021-02 13:03: 19 Yes 40mg Take 40 mg by mouth in the morning. [facility] DILTIAZEM HCL ORAL 2021-02 13:03: 19 Yes 120mg Take 120 mg by mouth every 8 (eight) hours. [facility] cetirizine 10 mg tablet 2021-02 12:56: 34 Yes 10mg Take 10 mg by mouth daily. [facility] propranoloL 40 mg tablet 2021-02 12:56: 34 Yes 40mg Take 40 mg by mouth 3 (three) times daily. [facility] pyridoxine, VITAMIN B-6, 25 mg tablet 2021-02 12:56: 34 Yes 25mg Take 25 mg by mouth daily. [facility] acetaminoph en 650 mg CR tablet 2021-02 12:56: 34 Yes 650mg Take 650 mg by mouth every 8 (eight) hours as needed for Pain. [facility] docusate 100 mg capsule 2021-02 12:56: 34 Yes 100mg Take 100 mg by mouth daily. [facility] HYDROcodone -acetaminop hen 5-325 mg tablet 2021-02 12:56: 34 Yes 1{tbl} Take 1 tablet by mouth every 6 (six) hours as needed. [facility] polyethylen e glycol 3350 (MIRALAX ORAL) 2021-02 12:56: 34 Yes Take by mouth. [facility] heparin (porcine) injection 5,000 Units 2021-02 12:38: 00 12-28 13:06 :00 No 5000U 5,000 Units, Subcutaneo us, ONCE, 1 dose, On 12/28/21 at 0645, SULAIMAN [facility] DILTIAZEM HCL ORAL 2021-02 18:00: 36 Yes 120mg Take 120 mg by mouth every 8 (eight) hours. [facility] MELOXICAM ORAL 2021-02 17:54: 18 Yes 15mg Take 15 mg by mouth. [facility] famotidine 40 mg tablet 2021-02 17:54: 18 Yes 40mg Take 40 mg by mouth in the morning. [facility] pyridoxine, VITAMIN B-6, 25 mg tablet 2021-02 17:15: 57 Yes 25mg Take 25 mg by mouth daily. [facility] HYDROcodone -acetaminop hen 5-325 mg tablet 2021-02 17:15: 57 Yes 1{tbl} Take 1 tablet by mouth every 6 (six) hours as needed. [facility] furosemide 20 mg tablet 2021-02 17:15: 57 Yes 20mg Take 20 mg by mouth in the morning. [facility] cetirizine 10 mg tablet 2021-02 16:47: 56 Yes 10mg Take 10 mg by mouth daily. [facility] acetaminoph en 650 mg CR tablet 2021-02 16:47: 56 Yes 650mg Take 650 mg by mouth every 8 (eight) hours as needed for Pain. [facility] docusate 100 mg capsule 2021-02 16:47: 56 Yes 100mg Take 100 mg by mouth daily. [facility] polyethylen e glycol 3350 (MIRALAX ORAL) 2021-02 16:47: 56 Yes Take by mouth. [facility] cetirizine 10 mg tablet 09-29 15:02: 10 Yes 10mg Take 10 mg by mouth daily. [facility] propranoloL 40 mg tablet 09-29 15:02: 10 Yes 40mg Take 40 mg by mouth 3 (three) times daily. [facility] acetaminoph en 650 mg CR tablet 09-29 15:02: 10 Yes 650mg Take 1 tablet by mouth every 8 (eight) hours as needed for Pain. [facility] docusate 100 mg capsule 09-29 15:02: 10 Yes 100mg Take 100 mg by mouth daily. [facility] HYDROcodone -acetaminop hen 5-325 mg tablet 09-29 15:02: 10 Yes 1{tbl} Take 1 tablet by mouth every 6 (six) hours as needed. [facility] DILTIAZEM HCL ORAL 09-29 15:02: 10 Yes 120mg Take 120 mg by mouth every 8 (eight) hours. [facility] pyridoxine, VITAMIN B-6, 25 mg tablet 2022-0 5-27 09:03: 31 Yes 25mg Take 1 tablet by mouth in the morning. [facility] LEVETIRACET AM 500 mg tablet 05-11 00:00: 00 Yes TAKE 2 TABLETS BY MOUTH TWICE DAILY [facility] Cyanocobala min 1,000 mcg tablet 05-06 00:00: 00 Yes 1000ug Take 1 tablet by mouth. [facility] cetirizine 10 mg tablet 05-01 00:00: 00 Yes 10mg Take 1 tablet by mouth. [facility] omeprazole 40 mg capsule 02-18 00:00: 00 Yes [id number] 40mg Take 1 capsule by mouth 2 (two) times daily. [facility] amitriptyli ne 100 mg tablet 2020-02 00:00: 00 Yes 1{tbl} 1 tablet at bedtime. Takes total of 125mg [facility] clopidogreL 75 mg tablet 2020-02 00:00: 00 Yes 1{tbl} 1 tablet daily. [facility] clopidogreL 75 mg tablet 2020-02 00:00: 00 Yes 75mg Take 1 tablet in the morning. [facility] tiZANidine 2 mg tablet 2020-02 00:00: 00 Yes 1{tbl} 1 tablet at bedtime. [facility] tiZANidine 2 mg tablet 2020-02 00:00: 00 Yes 2mg 1 tablet at bedtime. [facility] atorvastati n 80 mg tablet 2020-02 00:00: 00 11-09 00:00 :00 No 1{tbl} 1 tablet at bedtime. [facility] pyridoxine HCl, vitamin B6, (VITAMIN B-6 ORAL) 05-31 00:00: 00 Yes 1{tbl} Take 1 tablet by mouth. [facility] hydrOXYchlo roQUINE 200 mg tablet 11-05 00:00: 00 Yes 200mg Take 200 mg by mouth 2 (two) times daily. [facility] Immunizations Ordered Immunization Name Filled Immunization Name Date Status Comments Source Influenza Virus Vaccine Quad .5 mL IM 6+ MO 2018-01-24 00:00:00 Completed [facility] Influenza Virus Vaccine Quad .5 mL IM 6+ MO 2018-01-24 00:00:00 Completed [facility] Influenza Virus Vaccine Quad .5 mL IM 6+ MO 2018-01-24 00:00:00 Completed [facility] Influenza Virus Vaccine Quad .5 mL IM 6+ MO 2018-01-24 00:00:00 Completed [facility] Influenza Virus Vaccine Quad .5 mL IM 6+ MO 2018-01-24 00:00:00 Completed [facility] Influenza Virus Vaccine Quad .5 mL IM 6+ MO 2018-01-24 00:00:00 Completed [facility] Influenza Virus Vaccine Quad .5 mL IM 6+ MO 2018-01-24 00:00:00 Completed [facility] Influenza Virus Vaccine Quad .5 mL IM 6+ MO 2018-01-24 00:00:00 Completed [facility] Influenza Virus Vaccine Quad .5 mL IM 6+ MO 2018-01-24 00:00:00 Completed [facility] Influenza Virus Vaccine Quad .5 mL IM 6+ MO 2018-01-24 00:00:00 Completed [facility] Influenza Virus Vaccine Quad .5 mL IM 6+ MO 2018-01-24 00:00:00 Completed [facility] Influenza Virus Vaccine Quad .5 mL IM 6+ MO 2018-01-24 00:00:00 Completed [facility] Influenza Virus Vaccine Quad .5 mL IM 6+ MO 2018-01-24 00:00:00 Completed [facility] Influenza Virus Vaccine Quad .5 mL IM 6+ MO 2018-01-24 00:00:00 Completed [facility] Influenza Virus Vaccine Quad .5 mL IM 6+ MO 2018-01-24 00:00:00 Completed [facility] Influenza Virus Vaccine Quad .5 mL IM 6+ MO 2018-01-24 00:00:00 Completed [facility] Influenza Virus Vaccine Quad .5 mL IM 6+ MO 2018-01-24 00:00:00 Completed [facility] Influenza Virus Vaccine Quad .5 mL IM 6+ MO 2018-01-24 00:00:00 Completed [facility] Influenza Virus Vaccine Quad .5 mL IM 6+ MO 2018-01-24 00:00:00 Completed [facility] Influenza Virus Vaccine Quad .5 mL IM 6+ MO 2018-01-24 00:00:00 Completed [facility] Influenza Virus Vaccine Quad .5 mL IM 6+ MO 2018-01-24 00:00:00 Completed [facility] Influenza Virus Vaccine Quad .5 mL IM 6+ MO 2018-01-24 00:00:00 Completed [facility] Influenza Virus Vaccine Quad .5 mL IM 6+ MO 2018-01-24 00:00:00 Completed [facility] Influenza Virus Vaccine Quad .5 mL IM 6+ MO 2018-01-24 00:00:00 Completed [facility] Influenza Virus Vaccine Quad .5 mL IM 6+ MO 2018-01-24 00:00:00 Completed [facility] Influenza Virus Vaccine Quad .5 mL IM 6+ MO 2018-01-24 00:00:00 Completed [facility] Influenza Virus Vaccine Quad .5 mL IM 6+ MO 2018-01-24 00:00:00 Completed [facility] Influenza Virus Vaccine Quad .5 mL IM 6+ MO 2018-01-24 00:00:00 Completed [facility] Influenza Virus Vaccine Quad .5 mL IM 6+ MO 2018-01-24 00:00:00 Completed [facility] Influenza Virus Vaccine Quad .5 mL IM 6+ MO 2018-01-24 00:00:00 Completed [facility] Influenza Virus Vaccine Quad .5 mL IM 6+ MO 2018-01-24 00:00:00 Completed [facility] Influenza Virus Vaccine Quad .5 mL IM 6+ MO 2018-01-24 00:00:00 Completed [facility] Influenza Virus Vaccine Quad .5 mL IM 6+ MO 2018-01-24 00:00:00 Completed [facility] Influenza Virus Vaccine Quad .5 mL IM 6+ MO (FLUZONE/FLULAVAL/F LUARIX) 2018-01-24 00:00:00 Completed [facility] Influenza Virus Vaccine Quad .5 mL IM 6+ MO (FLUZONE/FLULAVAL/F LUARIX) 2018-01-24 00:00:00 Completed [facility] Influenza Virus Vaccine Quad .5 mL IM 6+ MO (FLUZONE/FLULAVAL/F LUARIX) 2018-01-24 00:00:00 Completed [facility] Influenza Virus Vaccine Quad .5 mL IM 6+ MO (FLUZONE/FLULAVAL/F LUARIX) 2018-01-24 00:00:00 Completed [facility] Influenza Virus Vaccine Quad .5 mL IM 6+ MO (FLUZONE/FLULAVAL/F LUARIX) 2018-01-24 00:00:00 Completed [facility] Influenza Virus Vaccine Quad .5 mL IM 6+ MO (FLUZONE/FLULAVAL/F LUARIX) 2018-01-24 00:00:00 Completed [facility] Influenza Virus Vaccine Quad .5 mL IM 6+ MO (FLUZONE/FLULAVAL/F LUARIX) 2018-01-24 00:00:00 Completed [facility] Influenza Virus Vaccine Quad .5 mL IM 6+ MO (FLUZONE/FLULAVAL/F LUARIX) 2018-01-24 00:00:00 Completed [facility] Influenza Virus Vaccine Quad .5 mL IM 6+ MO (FLUZONE/FLULAVAL/F LUARIX) 2018-01-24 00:00:00 Completed [facility] Influenza Virus Vaccine Quad .5 mL IM 6+ MO (FLUZONE/FLULAVAL/F LUARIX) 2018-01-24 00:00:00 Completed [facility] Influenza Virus Vaccine Quad .5 mL IM 6+ MO (FLUZONE/FLULAVAL/F LUARIX) 2018-01-24 00:00:00 Completed [facility] Influenza Virus Vaccine Quad .5 mL IM 6+ MO (FLUZONE/FLULAVAL/F LUARIX) 2018-01-24 00:00:00 Completed [facility] Influenza Virus Vaccine Quad .5 mL IM 6+ MO (FLUZONE/FLULAVAL/F LUARIX) 2018-01-24 00:00:00 Completed [facility] TDAP 2013-02-07 00:00:00 Completed [facility] TDAP 2013-02-07 00:00:00 Completed [facility] TDAP 2013-02-07 00:00:00 Completed [facility] TDAP 2013-02-07 00:00:00 Completed [facility] TDAP 2013-02-07 00:00:00 Completed [facility] TDAP 2013-02-07 00:00:00 Completed [facility] TDAP 2013-02-07 00:00:00 Completed [facility] TDAP 2013-02-07 00:00:00 Completed [facility] TDAP 2013-02-07 00:00:00 Completed [facility] TDAP 2013-02-07 00:00:00 Completed [facility] TDAP 2013-02-07 00:00:00 Completed [facility] TDAP 2013-02-07 00:00:00 Completed [facility] TDAP 2013-02-07 00:00:00 Completed [facility] TDAP 2013-02-07 00:00:00 Completed [facility] TDAP 2013-02-07 00:00:00 Completed [facility] TDAP 2013-02-07 00:00:00 Completed [facility] TDAP 2013-02-07 00:00:00 Completed [facility] TDAP 2013-02-07 00:00:00 Completed [facility] TDAP 2013-02-07 00:00:00 Completed [facility] TDAP 2013-02-07 00:00:00 Completed [facility] TDAP 2013-02-07 00:00:00 Completed [facility] TDAP 2013-02-07 00:00:00 Completed [facility] TDAP 2013-02-07 00:00:00 Completed [facility] TDAP 2013-02-07 00:00:00 Completed [facility] TDAP 2013-02-07 00:00:00 Completed [facility] TDAP 2013-02-07 00:00:00 Completed [facility] TDAP 2013-02-07 00:00:00 Completed [facility] TDAP 2013-02-07 00:00:00 Completed [facility] TDAP 2013-02-07 00:00:00 Completed [facility] TDAP 2013-02-07 00:00:00 Completed [facility] TDAP 2013-02-07 00:00:00 Completed [facility] TDAP 2013-02-07 00:00:00 Completed [facility] TDAP 2013-02-07 00:00:00 Completed [facility] TDAP 2013-02-07 00:00:00 Completed [facility] TDAP 2013-02-07 00:00:00 Completed [facility] TDAP 2013-02-07 00:00:00 Completed [facility] TDAP 2013-02-07 00:00:00 Completed [facility] TDAP 2013-02-07 00:00:00 Completed [facility] TDAP 2013-02-07 00:00:00 Completed [facility] TDAP 2013-02-07 00:00:00 Completed [facility] TDAP 2013-02-07 00:00:00 Completed [facility] TDAP 2013-02-07 00:00:00 Completed [facility] TDAP 2013-02-07 00:00:00 Completed [facility] TDAP 2013-02-07 00:00:00 Completed [facility] TDAP 2013-02-07 00:00:00 Completed [facility] TDAP 2013-02-07 00:00:00 Completed [facility] Pneumococcal Polysaccharide, PPSV23 (PNEUMOVAX) 2012-02-22 00:00:00 Completed [facility] Pneumococcal Polysaccharide, PPSV23 (PNEUMOVAX) 2012-02-22 00:00:00 Completed [facility] Pneumococcal Polysaccharide, PPSV23 (PNEUMOVAX) 2012-02-22 00:00:00 Completed [facility] Pneumococcal Polysaccharide, PPSV23 (PNEUMOVAX) 2012-02-22 00:00:00 Completed [facility] Pneumococcal Polysaccharide, PPSV23 (PNEUMOVAX) 2012-02-22 00:00:00 Completed [facility] Pneumococcal Polysaccharide, PPSV23 (PNEUMOVAX) 2012-02-22 00:00:00 Completed [facility] Pneumococcal Polysaccharide, PPSV23 (PNEUMOVAX) 2012-02-22 00:00:00 Completed [facility] Pneumococcal Polysaccharide, PPSV23 (PNEUMOVAX) 2012-02-22 00:00:00 Completed [facility] Pneumococcal Polysaccharide, PPSV23 (PNEUMOVAX) 2012-02-22 00:00:00 Completed [facility] Pneumococcal Polysaccharide, PPSV23 (PNEUMOVAX) 2012-02-22 00:00:00 Completed [facility] Pneumococcal Polysaccharide, PPSV23 (PNEUMOVAX) 2012-02-22 00:00:00 Completed [facility] Pneumococcal Polysaccharide, PPSV23 (PNEUMOVAX) 2012-02-22 00:00:00 Completed [facility] Pneumococcal Polysaccharide, PPSV23 (PNEUMOVAX) 2012-02-22 00:00:00 Completed [facility] Pneumococcal Polysaccharide, PPSV23 (PNEUMOVAX) 2012-02-22 00:00:00 Completed [facility] Pneumococcal Polysaccharide, PPSV23 (PNEUMOVAX) 2012-02-22 00:00:00 Completed [facility] Pneumococcal Polysaccharide, PPSV23 (PNEUMOVAX) 2012-02-22 00:00:00 Completed [facility] Pneumococcal Polysaccharide, PPSV23 (PNEUMOVAX) 2012-02-22 00:00:00 Completed [facility] Pneumococcal Polysaccharide, PPSV23 (PNEUMOVAX) 2012-02-22 00:00:00 Completed [facility] Pneumococcal Polysaccharide, PPSV23 (PNEUMOVAX) 2012-02-22 00:00:00 Completed [facility] Pneumococcal Polysaccharide, PPSV23 (PNEUMOVAX) 2012-02-22 00:00:00 Completed [facility] Pneumococcal Polysaccharide, PPSV23 (PNEUMOVAX) 2012-02-22 00:00:00 Completed [facility] Pneumococcal Polysaccharide, PPSV23 (PNEUMOVAX) 2012-02-22 00:00:00 Completed [facility] Pneumococcal Polysaccharide, PPSV23 (PNEUMOVAX) 2012-02-22 00:00:00 Completed [facility] Pneumococcal Polysaccharide, PPSV23 (PNEUMOVAX) 2012-02-22 00:00:00 Completed [facility] Pneumococcal Polysaccharide, PPSV23 (PNEUMOVAX) 2012-02-22 00:00:00 Completed [facility] Pneumococcal Polysaccharide, PPSV23 (PNEUMOVAX) 2012-02-22 00:00:00 Completed [facility] Pneumococcal Polysaccharide, PPSV23 (PNEUMOVAX) 2012-02-22 00:00:00 Completed [facility] Pneumococcal Polysaccharide, PPSV23 (PNEUMOVAX) 2012-02-22 00:00:00 Completed [facility] Pneumococcal Polysaccharide, PPSV23 (PNEUMOVAX) 2012-02-22 00:00:00 Completed [facility] Pneumococcal Polysaccharide, PPSV23 (PNEUMOVAX) 2012-02-22 00:00:00 Completed [facility] Pneumococcal Polysaccharide, PPSV23 (PNEUMOVAX) 2012-02-22 00:00:00 Completed [facility] Pneumococcal Polysaccharide, PPSV23 (PNEUMOVAX) 2012-02-22 00:00:00 Completed [facility] Pneumococcal Polysaccharide, PPSV23 (PNEUMOVAX) 2012-02-22 00:00:00 Completed [facility] Pneumococcal Polysaccharide, PPSV23 (PNEUMOVAX) 2012-02-22 00:00:00 Completed [facility] Pneumococcal Polysaccharide, PPSV23 (PNEUMOVAX) 2012-02-22 00:00:00 Completed [facility] Pneumococcal Polysaccharide, PPSV23 (PNEUMOVAX) 2012-02-22 00:00:00 Completed [facility] Pneumococcal Polysaccharide, PPSV23 (PNEUMOVAX) 2012-02-22 00:00:00 Completed [facility] Pneumococcal Polysaccharide, PPSV23 (PNEUMOVAX) 2012-02-22 00:00:00 Completed [facility] Pneumococcal Polysaccharide, PPSV23 (PNEUMOVAX) 2012-02-22 00:00:00 Completed [facility] Pneumococcal Polysaccharide, PPSV23 (PNEUMOVAX) 2012-02-22 00:00:00 Completed [facility] Pneumococcal Polysaccharide, PPSV23 (PNEUMOVAX) 2012-02-22 00:00:00 Completed [facility] Pneumococcal Polysaccharide, PPSV23 (PNEUMOVAX) 2012-02-22 00:00:00 Completed [facility] Pneumococcal Polysaccharide, PPSV23 (PNEUMOVAX) 2012-02-22 00:00:00 Completed [facility] Pneumococcal Polysaccharide, PPSV23 (PNEUMOVAX) 2012-02-22 00:00:00 Completed [facility] Pneumococcal Polysaccharide, PPSV23 (PNEUMOVAX) 2012-02-22 00:00:00 Completed [facility] Pneumococcal Polysaccharide, PPSV23 (PNEUMOVAX) 2012-02-22 00:00:00 Completed [facility] Influenza Virus Vaccine (3+ yrs) 2010-11-07 00:00:00 Completed [facility] Influenza Virus Vaccine (3+ yrs) 2010-11-07 00:00:00 Completed [facility] Influenza Virus Vaccine (3+ yrs) 2010-11-07 00:00:00 Completed [facility] Influenza Virus Vaccine (3+ yrs) 2010-11-07 00:00:00 Completed [facility] Influenza Virus Vaccine (3+ yrs) 2010-11-07 00:00:00 Completed [facility] Influenza Virus Vaccine (3+ yrs) 2010-11-07 00:00:00 Completed [facility] Influenza Virus Vaccine (3+ yrs) 2010-11-07 00:00:00 Completed [facility] Influenza Virus Vaccine (3+ yrs) 2010-11-07 00:00:00 Completed [facility] Influenza Virus Vaccine (3+ yrs) 2010-11-07 00:00:00 Completed [facility] Influenza Virus Vaccine (3+ yrs) 2010-11-07 00:00:00 Completed [facility] Influenza Virus Vaccine (3+ yrs) 2010-11-07 00:00:00 Completed [facility] Influenza Virus Vaccine (3+ yrs) 2010-11-07 00:00:00 Completed [facility] Influenza Virus Vaccine (3+ yrs) 2010-11-07 00:00:00 Completed [facility] Influenza Virus Vaccine (3+ yrs) 2010-11-07 00:00:00 Completed [facility] Influenza Virus Vaccine (3+ yrs) 2010-11-07 00:00:00 Completed [facility] Influenza Virus Vaccine (3+ yrs) 2010-11-07 00:00:00 Completed [facility] Influenza Virus Vaccine (3+ yrs) 2010-11-07 00:00:00 Completed [facility] Influenza Virus Vaccine (3+ yrs) 2010-11-07 00:00:00 Completed [facility] Influenza Virus Vaccine (3+ yrs) 2010-11-07 00:00:00 Completed [facility] Influenza Virus Vaccine (3+ yrs) 2010-11-07 00:00:00 Completed [facility] Influenza Virus Vaccine (3+ yrs) 2010-11-07 00:00:00 Completed [facility] Influenza Virus Vaccine (3+ yrs) 2010-11-07 00:00:00 Completed [facility] Influenza Virus Vaccine (3+ yrs) 2010-11-07 00:00:00 Completed [facility] Influenza Virus Vaccine (3+ yrs) 2010-11-07 00:00:00 Completed [facility] Influenza Virus Vaccine (3+ yrs) 2010-11-07 00:00:00 Completed [facility] Influenza Virus Vaccine (3+ yrs) 2010-11-07 00:00:00 Completed [facility] Influenza Virus Vaccine (3+ yrs) 2010-11-07 00:00:00 Completed [facility] Influenza Virus Vaccine (3+ yrs) 2010-11-07 00:00:00 Completed [facility] Influenza Virus Vaccine (3+ yrs) 2010-11-07 00:00:00 Completed [facility] Influenza Virus Vaccine (3+ yrs) 2010-11-07 00:00:00 Completed [facility] Influenza Virus Vaccine (3+ yrs) 2010-11-07 00:00:00 Completed [facility] Influenza Virus Vaccine (3+ yrs) 2010-11-07 00:00:00 Completed [facility] Influenza Virus Vaccine (3+ yrs) 2010-11-07 00:00:00 Completed [facility] Influenza Virus Vaccine (3+ yrs) 2010-11-07 00:00:00 Completed [facility] Influenza Virus Vaccine (3+ yrs) 2010-11-07 00:00:00 Completed [facility] Influenza Virus Vaccine (3+ yrs) 2010-11-07 00:00:00 Completed [facility] Influenza Virus Vaccine (3+ yrs) 2010-11-07 00:00:00 Completed [facility] Influenza Virus Vaccine (3+ yrs) 2010-11-07 00:00:00 Completed [facility] Influenza Virus Vaccine (3+ yrs) 2010-11-07 00:00:00 Completed [facility] Influenza Virus Vaccine (3+ yrs) 2010-11-07 00:00:00 Completed [facility] Influenza Virus Vaccine (3+ yrs) 2010-11-07 00:00:00 Completed [facility] Influenza Virus Vaccine (3+ yrs) 2010-11-07 00:00:00 Completed [facility] Influenza Virus Vaccine (3+ yrs) 2010-11-07 00:00:00 Completed [facility] Influenza Virus Vaccine (3+ yrs) 2010-11-07 00:00:00 Completed [facility] Influenza Virus Vaccine (3+ yrs) 2010-11-07 00:00:00 Completed [facility] Influenza Virus Vaccine (3+ yrs) 2010-11-07 00:00:00 Completed [facility] Pneumococcal Polysaccharide, PPSV23 (PNEUMOVAX) 2006-11-14 00:00:00 Completed [facility] Pneumococcal Polysaccharide, PPSV23 (PNEUMOVAX) 2006-11-14 00:00:00 Completed [facility] Pneumococcal Polysaccharide, PPSV23 (PNEUMOVAX) 2006-11-14 00:00:00 Completed [facility] Pneumococcal Polysaccharide, PPSV23 (PNEUMOVAX) 2006-11-14 00:00:00 Completed [facility] Pneumococcal Polysaccharide, PPSV23 (PNEUMOVAX) 2006-11-14 00:00:00 Completed [facility] Pneumococcal Polysaccharide, PPSV23 (PNEUMOVAX) 2006-11-14 00:00:00 Completed [facility] Pneumococcal Polysaccharide, PPSV23 (PNEUMOVAX) 2006-11-14 00:00:00 Completed [facility] Pneumococcal Polysaccharide, PPSV23 (PNEUMOVAX) 2006-11-14 00:00:00 Completed [facility] Pneumococcal Polysaccharide, PPSV23 (PNEUMOVAX) 2006-11-14 00:00:00 Completed [facility] Pneumococcal Polysaccharide, PPSV23 (PNEUMOVAX) 2006-11-14 00:00:00 Completed [facility] Pneumococcal Polysaccharide, PPSV23 (PNEUMOVAX) 2006-11-14 00:00:00 Completed [facility] Pneumococcal Polysaccharide, PPSV23 (PNEUMOVAX) 2006-11-14 00:00:00 Completed [facility] Pneumococcal Polysaccharide, PPSV23 (PNEUMOVAX) 2006-11-14 00:00:00 Completed [facility] Pneumococcal Polysaccharide, PPSV23 (PNEUMOVAX) 2006-11-14 00:00:00 Completed [facility] Pneumococcal Polysaccharide, PPSV23 (PNEUMOVAX) 2006-11-14 00:00:00 Completed [facility] Pneumococcal Polysaccharide, PPSV23 (PNEUMOVAX) 2006-11-14 00:00:00 Completed [facility] Pneumococcal Polysaccharide, PPSV23 (PNEUMOVAX) 2006-11-14 00:00:00 Completed [facility] Pneumococcal Polysaccharide, PPSV23 (PNEUMOVAX) 2006-11-14 00:00:00 Completed [facility] Pneumococcal Polysaccharide, PPSV23 (PNEUMOVAX) 2006-11-14 00:00:00 Completed [facility] Pneumococcal Polysaccharide, PPSV23 (PNEUMOVAX) 2006-11-14 00:00:00 Completed [facility] Pneumococcal Polysaccharide, PPSV23 (PNEUMOVAX) 2006-11-14 00:00:00 Completed [facility] Pneumococcal Polysaccharide, PPSV23 (PNEUMOVAX) 2006-11-14 00:00:00 Completed [facility] Pneumococcal Polysaccharide, PPSV23 (PNEUMOVAX) 2006-11-14 00:00:00 Completed [facility] Pneumococcal Polysaccharide, PPSV23 (PNEUMOVAX) 2006-11-14 00:00:00 Completed [facility] Pneumococcal Polysaccharide, PPSV23 (PNEUMOVAX) 2006-11-14 00:00:00 Completed [facility] Pneumococcal Polysaccharide, PPSV23 (PNEUMOVAX) 2006-11-14 00:00:00 Completed [facility] Pneumococcal Polysaccharide, PPSV23 (PNEUMOVAX) 2006-11-14 00:00:00 Completed [facility] Pneumococcal Polysaccharide, PPSV23 (PNEUMOVAX) 2006-11-14 00:00:00 Completed [facility] Pneumococcal Polysaccharide, PPSV23 (PNEUMOVAX) 2006-11-14 00:00:00 Completed [facility] Pneumococcal Polysaccharide, PPSV23 (PNEUMOVAX) 2006-11-14 00:00:00 Completed [facility] Pneumococcal Polysaccharide, PPSV23 (PNEUMOVAX) 2006-11-14 00:00:00 Completed [facility] Pneumococcal Polysaccharide, PPSV23 (PNEUMOVAX) 2006-11-14 00:00:00 Completed [facility] Pneumococcal Polysaccharide, PPSV23 (PNEUMOVAX) 2006-11-14 00:00:00 Completed [facility] Pneumococcal Polysaccharide, PPSV23 (PNEUMOVAX) 2006-11-14 00:00:00 Completed [facility] Pneumococcal Polysaccharide, PPSV23 (PNEUMOVAX) 2006-11-14 00:00:00 Completed [facility] Pneumococcal Polysaccharide, PPSV23 (PNEUMOVAX) 2006-11-14 00:00:00 Completed [facility] Pneumococcal Polysaccharide, PPSV23 (PNEUMOVAX) 2006-11-14 00:00:00 Completed [facility] Pneumococcal Polysaccharide, PPSV23 (PNEUMOVAX) 2006-11-14 00:00:00 Completed [facility] Pneumococcal Polysaccharide, PPSV23 (PNEUMOVAX) 2006-11-14 00:00:00 Completed [facility] Pneumococcal Polysaccharide, PPSV23 (PNEUMOVAX) 2006-11-14 00:00:00 Completed [facility] Pneumococcal Polysaccharide, PPSV23 (PNEUMOVAX) 2006-11-14 00:00:00 Completed [facility] Pneumococcal Polysaccharide, PPSV23 (PNEUMOVAX) 2006-11-14 00:00:00 Completed [facility] Pneumococcal Polysaccharide, PPSV23 (PNEUMOVAX) 2006-11-14 00:00:00 Completed [facility] Pneumococcal Polysaccharide, PPSV23 (PNEUMOVAX) 2006-11-14 00:00:00 Completed [facility] Pneumococcal Polysaccharide, PPSV23 (PNEUMOVAX) 2006-11-14 00:00:00 Completed [facility] Pneumococcal Polysaccharide, PPSV23 (PNEUMOVAX) 2006-11-14 00:00:00 Completed [facility] Influenza Virus Vaccine Quad .5 mL IM 6+ MO (FLUZONE/FLULAVAL/F LUARIX) Unknown Completed [facility] Pneumococcal Polysaccharide, PPSV23 (PNEUMOVAX) Unknown Completed [facility] TDAP Unknown Completed [facility] Influenza Virus Vaccine (3+ yrs) Unknown Completed [facility] Pneumococcal Polysaccharide, PPSV23 (PNEUMOVAX) Unknown Completed [facility] Influenza Virus Vaccine Quad .5 mL IM 6+ MO (FLUZONE/FLULAVAL/F LUARIX) Unknown Completed [facility] Pneumococcal Polysaccharide, PPSV23 (PNEUMOVAX) Unknown Completed [facility] TDAP Unknown Completed [facility] Influenza Virus Vaccine (3+ yrs) Unknown Completed [facility] Pneumococcal Polysaccharide, PPSV23 (PNEUMOVAX) Unknown Completed [facility] Influenza Virus Vaccine Quad .5 mL IM 6+ MO (FLUZONE/FLULAVAL/F LUARIX) Unknown Completed [facility] Pneumococcal Polysaccharide, PPSV23 (PNEUMOVAX) Unknown Completed [facility] TDAP Unknown Completed [facility] Influenza Virus Vaccine (3+ yrs) Unknown Completed [facility] Pneumococcal Polysaccharide, PPSV23 (PNEUMOVAX) Unknown Completed [facility] Influenza Virus Vaccine Quad .5 mL IM 6+ MO (FLUZONE/FLULAVAL/F LUARIX) Unknown Completed [facility] Pneumococcal Polysaccharide, PPSV23 (PNEUMOVAX) Unknown Completed [facility] TDAP Unknown Completed [facility] Influenza Virus Vaccine (3+ yrs) Unknown Completed [facility] Pneumococcal Polysaccharide, PPSV23 (PNEUMOVAX) Unknown Completed [facility] Influenza Virus Vaccine Quad .5 mL IM 6+ MO (FLUZONE/FLULAVAL/F LUARIX) Unknown Completed [facility] Pneumococcal Polysaccharide, PPSV23 (PNEUMOVAX) Unknown Completed [facility] TDAP Unknown Completed [facility] Influenza Virus Vaccine (3+ yrs) Unknown Completed [facility] Pneumococcal Polysaccharide, PPSV23 (PNEUMOVAX) Unknown Completed [facility] Influenza Virus Vaccine Quad .5 mL IM 6+ MO (FLUZONE/FLULAVAL/F LUARIX) Unknown Completed [facility] Pneumococcal Polysaccharide, PPSV23 (PNEUMOVAX) Unknown Completed [facility] TDAP Unknown Completed [facility] Influenza Virus Vaccine (3+ yrs) Unknown Completed [facility] Pneumococcal Polysaccharide, PPSV23 (PNEUMOVAX) Unknown Completed [facility] Influenza Virus Vaccine Quad .5 mL IM 6+ MO (FLUZONE/FLULAVAL/F LUARIX) Unknown Completed [facility] Pneumococcal Polysaccharide, PPSV23 (PNEUMOVAX) Unknown Completed [facility] TDAP Unknown Completed [facility] Influenza Virus Vaccine (3+ yrs) Unknown Completed [facility] Pneumococcal Polysaccharide, PPSV23 (PNEUMOVAX) Unknown Completed [facility] Influenza Virus Vaccine Quad .5 mL IM 6+ MO (FLUZONE/FLULAVAL/F LUARIX) Unknown Completed [facility] Pneumococcal Polysaccharide, PPSV23 (PNEUMOVAX) Unknown Completed [facility] TDAP Unknown Completed [facility] Influenza Virus Vaccine (3+ yrs) Unknown Completed [facility] Pneumococcal Polysaccharide, PPSV23 (PNEUMOVAX) Unknown Completed [facility] Influenza Virus Vaccine Quad .5 mL IM 6+ MO (FLUZONE/FLULAVAL/F LUARIX) Unknown Completed [facility] Pneumococcal Polysaccharide, PPSV23 (PNEUMOVAX) Unknown Completed [facility] TDAP Unknown Completed [facility] Influenza Virus Vaccine (3+ yrs) Unknown Completed [facility] Pneumococcal Polysaccharide, PPSV23 (PNEUMOVAX) Unknown Completed [facility] Influenza Virus Vaccine Quad .5 mL IM 6+ MO (FLUZONE/FLULAVAL/F LUARIX) Unknown Completed [facility] Pneumococcal Polysaccharide, PPSV23 (PNEUMOVAX) Unknown Completed [facility] TDAP Unknown Completed [facility] Influenza Virus Vaccine (3+ yrs) Unknown Completed [facility] Pneumococcal Polysaccharide, PPSV23 (PNEUMOVAX) Unknown Completed [facility] Influenza Virus Vaccine Quad .5 mL IM 6+ MO (FLUZONE/FLULAVAL/F LUARIX) Unknown Completed [facility] Pneumococcal Polysaccharide, PPSV23 (PNEUMOVAX) Unknown Completed [facility] TDAP Unknown Completed [facility] Influenza Virus Vaccine (3+ yrs) Unknown Completed [facility] Pneumococcal Polysaccharide, PPSV23 (PNEUMOVAX) Unknown Completed [facility] SARS-COV-2 COVID-19 PFIZER VACCINE Unknown Completed [facility] Influenza Virus Vaccine Quad .5 mL IM 6+ MO (FLUZONE/FLULAVAL/F LUARIX) Unknown Completed [facility] Influenza Virus Vaccine Quad .5 mL IM 6+ MO (FLUZONE/FLULAVAL/F LUARIX) Unknown Completed [facility] Pneumococcal Polysaccharide, PPSV23 (PNEUMOVAX) Unknown Completed [facility] TDAP Unknown Completed [facility] Influenza Virus Vaccine (3+ yrs) Unknown Completed [facility] Pneumococcal Polysaccharide, PPSV23 (PNEUMOVAX) Unknown Completed [facility] SARS-COV-2 COVID-19 PFIZER VACCINE Unknown Completed [facility] Influenza Virus Vaccine Quad .5 mL IM 6+ MO (FLUZONE/FLULAVAL/F LUARIX) Unknown Completed [facility] Influenza Virus Vaccine Quad .5 mL IM 6+ MO (FLUZONE/FLULAVAL/F LUARIX) Unknown Completed [facility] Pneumococcal Polysaccharide, PPSV23 (PNEUMOVAX) Unknown Completed [facility] TDAP Unknown Completed [facility] Influenza Virus Vaccine (3+ yrs) Unknown Completed [facility] Pneumococcal Polysaccharide, PPSV23 (PNEUMOVAX) Unknown Completed [facility] SARS-COV-2 COVID-19 PFIZER VACCINE Unknown Completed [facility] Influenza Virus Vaccine Quad .5 mL IM 6+ MO (FLUZONE/FLULAVAL/F LUARIX) Unknown Completed [facility] Influenza Virus Vaccine Quad .5 mL IM 6+ MO (FLUZONE/FLULAVAL/F LUARIX) Unknown Completed [facility] Pneumococcal Polysaccharide, PPSV23 (PNEUMOVAX) Unknown Completed [facility] TDAP Unknown Completed [facility] Influenza Virus Vaccine (3+ yrs) Unknown Completed [facility] Pneumococcal Polysaccharide, PPSV23 (PNEUMOVAX) Unknown Completed [facility] SARS-COV-2 COVID-19 PFIZER VACCINE Unknown Completed [facility] Influenza Virus Vaccine Quad .5 mL IM 6+ MO (FLUZONE/FLULAVAL/F LUARIX) Unknown Completed [facility] Influenza Virus Vaccine Quad .5 mL IM 6+ MO (FLUZONE/FLULAVAL/F LUARIX) Unknown Completed [facility] Pneumococcal Polysaccharide, PPSV23 (PNEUMOVAX) Unknown Completed [facility] TDAP Unknown Completed [facility] Influenza Virus Vaccine (3+ yrs) Unknown Completed [facility] Pneumococcal Polysaccharide, PPSV23 (PNEUMOVAX) Unknown Completed [facility] SARS-COV-2 COVID-19 PFIZER VACCINE Unknown Completed [facility] Influenza Virus Vaccine Quad .5 mL IM 6+ MO (FLUZONE/FLULAVAL/F LUARIX) Unknown Completed [facility] Influenza Virus Vaccine Quad .5 mL IM 6+ MO (FLUZONE/FLULAVAL/F LUARIX) Unknown Completed [facility] Pneumococcal Polysaccharide, PPSV23 (PNEUMOVAX) Unknown Completed [facility] TDAP Unknown Completed [facility] Influenza Virus Vaccine (3+ yrs) Unknown Completed [facility] Pneumococcal Polysaccharide, PPSV23 (PNEUMOVAX) Unknown Completed [facility] SARS-COV-2 COVID-19 PFIZER VACCINE Unknown Completed [facility] Influenza Virus Vaccine Quad .5 mL IM 6+ MO (FLUZONE/FLULAVAL/F LUARIX) Unknown Completed [facility] Influenza Virus Vaccine Quad .5 mL IM 6+ MO (FLUZONE/FLULAVAL/F LUARIX) Unknown Completed [facility] Pneumococcal Polysaccharide, PPSV23 (PNEUMOVAX) Unknown Completed [facility] TDAP Unknown Completed [facility] Influenza Virus Vaccine (3+ yrs) Unknown Completed [facility] Pneumococcal Polysaccharide, PPSV23 (PNEUMOVAX) Unknown Completed [facility] SARS-COV-2 COVID-19 PFIZER VACCINE Unknown Completed [facility] Influenza Virus Vaccine Quad .5 mL IM 6+ MO (FLUZONE/FLULAVAL/F LUARIX) Unknown Completed [facility] Influenza Virus Vaccine Quad .5 mL IM 6+ MO (FLUZONE/FLULAVAL/F LUARIX) Unknown Completed [facility] Pneumococcal Polysaccharide, PPSV23 (PNEUMOVAX) Unknown Completed [facility] TDAP Unknown Completed [facility] Influenza Virus Vaccine (3+ yrs) Unknown Completed [facility] Pneumococcal Polysaccharide, PPSV23 (PNEUMOVAX) Unknown Completed [facility] SARS-COV-2 COVID-19 PFIZER VACCINE Unknown Completed [facility] Influenza Virus Vaccine Quad .5 mL IM 6+ MO (FLUZONE/FLULAVAL/F LUARIX) Unknown Completed [facility] Influenza Virus Vaccine Quad .5 mL IM 6+ MO (FLUZONE/FLULAVAL/F LUARIX) Unknown Completed [facility] Pneumococcal Polysaccharide, PPSV23 (PNEUMOVAX) Unknown Completed [facility] TDAP Unknown Completed [facility] Influenza Virus Vaccine (3+ yrs) Unknown Completed [facility] Pneumococcal Polysaccharide, PPSV23 (PNEUMOVAX) Unknown Completed [facility] SARS-COV-2 COVID-19 PFIZER VACCINE Unknown Completed [facility] Influenza Virus Vaccine Quad .5 mL IM 6+ MO (FLUZONE/FLULAVAL/F LUARIX) Unknown Completed [facility] Influenza Virus Vaccine Quad .5 mL IM 6+ MO (FLUZONE/FLULAVAL/F LUARIX) Unknown Completed [facility] Pneumococcal Polysaccharide, PPSV23 (PNEUMOVAX) Unknown Completed [facility] TDAP Unknown Completed [facility] Influenza Virus Vaccine (3+ yrs) Unknown Completed [facility] Pneumococcal Polysaccharide, PPSV23 (PNEUMOVAX) Unknown Completed [facility] SARS-COV-2 COVID-19 PFIZER VACCINE Unknown Completed [facility] Influenza Virus Vaccine Quad .5 mL IM 6+ MO (FLUZONE/FLULAVAL/F LUARIX) Unknown Completed [facility] Influenza Virus Vaccine Quad .5 mL IM 6+ MO (FLUZONE/FLULAVAL/F LUARIX) Unknown Completed [facility] Pneumococcal Polysaccharide, PPSV23 (PNEUMOVAX) Unknown Completed [facility] TDAP Unknown Completed [facility] Influenza Virus Vaccine (3+ yrs) Unknown Completed [facility] Pneumococcal Polysaccharide, PPSV23 (PNEUMOVAX) Unknown Completed [facility] SARS-COV-2 COVID-19 PFIZER VACCINE Unknown Completed [facility] Influenza Virus Vaccine Quad .5 mL IM 6+ MO (FLUZONE/FLULAVAL/F LUARIX) Unknown Completed [facility] Influenza Virus Vaccine Quad .5 mL IM 6+ MO (FLUZONE/FLULAVAL/F LUARIX) Unknown Completed [facility] Pneumococcal Polysaccharide, PPSV23 (PNEUMOVAX) Unknown Completed [facility] TDAP Unknown Completed [facility] Influenza Virus Vaccine (3+ yrs) Unknown Completed [facility] Pneumococcal Polysaccharide, PPSV23 (PNEUMOVAX) Unknown Completed [facility] SARS-COV-2 COVID-19 PFIZER VACCINE Unknown Completed [facility] Influenza Virus Vaccine Quad .5 mL IM 6+ MO (FLUZONE/FLULAVAL/F LUARIX) Unknown Completed [facility] Influenza Virus Vaccine Quad .5 mL IM 6+ MO (FLUZONE/FLULAVAL/F LUARIX) Unknown Completed [facility] Pneumococcal Polysaccharide, PPSV23 (PNEUMOVAX) Unknown Completed [facility] TDAP Unknown Completed [facility] Influenza Virus Vaccine (3+ yrs) Unknown Completed [facility] Pneumococcal Polysaccharide, PPSV23 (PNEUMOVAX) Unknown Completed [facility] SARS-COV-2 COVID-19 PFIZER VACCINE Unknown Completed [facility] Influenza Virus Vaccine Quad .5 mL IM 6+ MO (FLUZONE/FLULAVAL/F LUARIX) Unknown Completed [facility] Influenza Virus Vaccine Quad .5 mL IM 6+ MO (FLUZONE/FLULAVAL/F LUARIX) Unknown Completed [facility] Pneumococcal Polysaccharide, PPSV23 (PNEUMOVAX) Unknown Completed [facility] TDAP Unknown Completed [facility] Influenza Virus Vaccine (3+ yrs) Unknown Completed [facility] Pneumococcal Polysaccharide, PPSV23 (PNEUMOVAX) Unknown Completed [facility] SARS-COV-2 COVID-19 PFIZER VACCINE Unknown Completed [facility] Influenza Virus Vaccine Quad .5 mL IM 6+ MO (FLUZONE/FLULAVAL/F LUARIX) Unknown Completed [facility] Influenza Virus Vaccine Quad .5 mL IM 6+ MO (FLUZONE/FLULAVAL/F LUARIX) Unknown Completed [facility] Pneumococcal Polysaccharide, PPSV23 (PNEUMOVAX) Unknown Completed [facility] TDAP Unknown Completed [facility] Influenza Virus Vaccine (3+ yrs) Unknown Completed [facility] Pneumococcal Polysaccharide, PPSV23 (PNEUMOVAX) Unknown Completed [facility] SARS-COV-2 COVID-19 PFIZER VACCINE Unknown Completed [facility] Influenza Virus Vaccine Quad .5 mL IM 6+ MO (FLUZONE/FLULAVAL/F LUARIX) Unknown Completed [facility] Influenza Virus Vaccine Quad .5 mL IM 6+ MO (FLUZONE/FLULAVAL/F LUARIX) Unknown Completed [facility] Pneumococcal Polysaccharide, PPSV23 (PNEUMOVAX) Unknown Completed [facility] TDAP Unknown Completed [facility] Influenza Virus Vaccine (3+ yrs) Unknown Completed [facility] Pneumococcal Polysaccharide, PPSV23 (PNEUMOVAX) Unknown Completed [facility] SARS-COV-2 COVID-19 PFIZER VACCINE Unknown Completed [facility] Influenza Virus Vaccine Quad .5 mL IM 6+ MO (FLUZONE/FLULAVAL/F LUARIX) Unknown Completed [facility] Influenza Virus Vaccine Quad .5 mL IM 6+ MO (FLUZONE/FLULAVAL/F LUARIX) Unknown Completed [facility] Pneumococcal Polysaccharide, PPSV23 (PNEUMOVAX) Unknown Completed [facility] TDAP Unknown Completed [facility] Influenza Virus Vaccine (3+ yrs) Unknown Completed [facility] Pneumococcal Polysaccharide, PPSV23 (PNEUMOVAX) Unknown Completed [facility] SARS-COV-2 COVID-19 PFIZER VACCINE Unknown Completed [facility] Influenza Virus Vaccine Quad .5 mL IM 6+ MO (FLUZONE/FLULAVAL/F LUARIX) Unknown Completed [facility] Influenza Virus Vaccine Quad .5 mL IM 6+ MO (FLUZONE/FLULAVAL/F LUARIX) Unknown Completed [facility] Pneumococcal Polysaccharide, PPSV23 (PNEUMOVAX) Unknown Completed [facility] TDAP Unknown Completed [facility] Influenza Virus Vaccine (3+ yrs) Unknown Completed [facility] Pneumococcal Polysaccharide, PPSV23 (PNEUMOVAX) Unknown Completed [facility] SARS-COV-2 COVID-19 PFIZER VACCINE Unknown Completed [facility] Influenza Virus Vaccine Quad .5 mL IM 6+ MO (FLUZONE/FLULAVAL/F LUARIX) Unknown Completed [facility] Influenza Virus Vaccine Quad .5 mL IM 6+ MO (FLUZONE/FLULAVAL/F LUARIX) Unknown Completed [facility] Pneumococcal Polysaccharide, PPSV23 (PNEUMOVAX) Unknown Completed [facility] TDAP Unknown Completed [facility] Influenza Virus Vaccine (3+ yrs) Unknown Completed [facility] Pneumococcal Polysaccharide, PPSV23 (PNEUMOVAX) Unknown Completed [facility] SARS-COV-2 COVID-19 PFIZER VACCINE Unknown Completed [facility] Influenza Virus Vaccine Quad .5 mL IM 6+ MO (FLUZONE/FLULAVAL/F LUARIX) Unknown Completed [facility] Influenza Virus Vaccine Quad .5 mL IM 6+ MO (FLUZONE/FLULAVAL/F LUARIX) Unknown Completed [facility] Pneumococcal Polysaccharide, PPSV23 (PNEUMOVAX) Unknown Completed [facility] TDAP Unknown Completed [facility] Influenza Virus Vaccine (3+ yrs) Unknown Completed [facility] Pneumococcal Polysaccharide, PPSV23 (PNEUMOVAX) Unknown Completed [facility] SARS-COV-2 COVID-19 PFIZER VACCINE Unknown Completed [facility] Influenza Virus Vaccine Quad .5 mL IM 6+ MO (FLUZONE/FLULAVAL/F LUARIX) Unknown Completed [facility] Influenza Virus Vaccine Quad .5 mL IM 6+ MO (FLUZONE/FLULAVAL/F LUARIX) Unknown Completed [facility] Pneumococcal Polysaccharide, PPSV23 (PNEUMOVAX) Unknown Completed [facility] TDAP Unknown Completed [facility] Influenza Virus Vaccine (3+ yrs) Unknown Completed [facility] Pneumococcal Polysaccharide, PPSV23 (PNEUMOVAX) Unknown Completed [facility] SARS-COV-2 COVID-19 PFIZER VACCINE Unknown Completed [facility] Influenza Virus Vaccine Quad .5 mL IM 6+ MO (FLUZONE/FLULAVAL/F LUARIX) Unknown Completed [facility] Influenza Virus Vaccine Quad .5 mL IM 6+ MO (FLUZONE/FLULAVAL/F LUARIX) Unknown Completed [facility] Pneumococcal Polysaccharide, PPSV23 (PNEUMOVAX) Unknown Completed [facility] TDAP Unknown Completed [facility] Influenza Virus Vaccine (3+ yrs) Unknown Completed [facility] Pneumococcal Polysaccharide, PPSV23 (PNEUMOVAX) Unknown Completed [facility] SARS-COV-2 COVID-19 PFIZER VACCINE Unknown Completed [facility] Influenza Virus Vaccine Quad .5 mL IM 6+ MO (FLUZONE/FLULAVAL/F LUARIX) Unknown Completed [facility] Influenza Virus Vaccine Quad .5 mL IM 6+ MO (FLUZONE/FLULAVAL/F LUARIX) Unknown Completed [facility] Pneumococcal Polysaccharide, PPSV23 (PNEUMOVAX) Unknown Completed [facility] TDAP Unknown Completed [facility] Influenza Virus Vaccine (3+ yrs) Unknown Completed [facility] Pneumococcal Polysaccharide, PPSV23 (PNEUMOVAX) Unknown Completed [facility] SARS-COV-2 COVID-19 PFIZER VACCINE Unknown Completed [facility] Influenza Virus Vaccine Quad .5 mL IM 6+ MO (FLUZONE/FLULAVAL/F LUARIX) Unknown Completed [facility] Influenza Virus Vaccine Quad .5 mL IM 6+ MO (FLUZONE/FLULAVAL/F LUARIX) Unknown Completed [facility] Pneumococcal Polysaccharide, PPSV23 (PNEUMOVAX) Unknown Completed [facility] TDAP Unknown Completed [facility] Influenza Virus Vaccine (3+ yrs) Unknown Completed [facility] Pneumococcal Polysaccharide, PPSV23 (PNEUMOVAX) Unknown Completed [facility] SARS-COV-2 COVID-19 PFIZER VACCINE Unknown Completed [facility] Influenza Virus Vaccine Quad .5 mL IM 6+ MO (FLUZONE/FLULAVAL/F LUARIX) Unknown Completed [facility] Influenza Virus Vaccine Quad .5 mL IM 6+ MO (FLUZONE/FLULAVAL/F LUARIX) Unknown Completed [facility] Pneumococcal Polysaccharide, PPSV23 (PNEUMOVAX) Unknown Completed [facility] TDAP Unknown Completed [facility] Influenza Virus Vaccine (3+ yrs) Unknown Completed [facility] Pneumococcal Polysaccharide, PPSV23 (PNEUMOVAX) Unknown Completed [facility] SARS-COV-2 COVID-19 PFIZER VACCINE Unknown Completed [facility] Influenza Virus Vaccine Quad .5 mL IM 6+ MO (FLUZONE/FLULAVAL/F LUARIX) Unknown Completed [facility] Influenza Virus Vaccine Quad .5 mL IM 6+ MO (FLUZONE/FLULAVAL/F LUARIX) Unknown Completed [facility] Pneumococcal Polysaccharide, PPSV23 (PNEUMOVAX) Unknown Completed [facility] TDAP Unknown Completed [facility] Influenza Virus Vaccine (3+ yrs) Unknown Completed [facility] Pneumococcal Polysaccharide, PPSV23 (PNEUMOVAX) Unknown Completed [facility] SARS-COV-2 COVID-19 PFIZER VACCINE Unknown Completed [facility] Influenza Virus Vaccine Quad .5 mL IM 6+ MO (FLUZONE/FLULAVAL/F LUARIX) Unknown Completed [facility] Influenza Virus Vaccine Quad .5 mL IM 6+ MO (FLUZONE/FLULAVAL/F LUARIX) Unknown Completed [facility] Pneumococcal Polysaccharide, PPSV23 (PNEUMOVAX) Unknown Completed [facility] TDAP Unknown Completed [facility] Influenza Virus Vaccine (3+ yrs) Unknown Completed [facility] Pneumococcal Polysaccharide, PPSV23 (PNEUMOVAX) Unknown Completed [facility] SARS-COV-2 COVID-19 PFIZER VACCINE Unknown Completed [facility] Influenza Virus Vaccine Quad .5 mL IM 6+ MO (FLUZONE/FLULAVAL/F LUARIX) Unknown Completed [facility] Influenza Virus Vaccine Quad .5 mL IM 6+ MO (FLUZONE/FLULAVAL/F LUARIX) Unknown Completed [facility] Pneumococcal Polysaccharide, PPSV23 (PNEUMOVAX) Unknown Completed [facility] TDAP Unknown Completed [facility] Influenza Virus Vaccine (3+ yrs) Unknown Completed [facility] Pneumococcal Polysaccharide, PPSV23 (PNEUMOVAX) Unknown Completed [facility] SARS-COV-2 COVID-19 PFIZER VACCINE Unknown Completed [facility] Influenza Virus Vaccine Quad .5 mL IM 6+ MO (FLUZONE/FLULAVAL/F LUARIX) Unknown Completed [facility] Influenza Virus Vaccine Quad .5 mL IM 6+ MO (FLUZONE/FLULAVAL/F LUARIX) Unknown Completed [facility] Pneumococcal Polysaccharide, PPSV23 (PNEUMOVAX) Unknown Completed [facility] TDAP Unknown Completed [facility] Influenza Virus Vaccine (3+ yrs) Unknown Completed [facility] Pneumococcal Polysaccharide, PPSV23 (PNEUMOVAX) Unknown Completed [facility] SARS-COV-2 COVID-19 PFIZER VACCINE Unknown Completed [facility] Influenza Virus Vaccine Quad .5 mL IM 6+ MO (FLUZONE/FLULAVAL/F LUARIX) Unknown Completed [facility] Influenza Virus Vaccine Quad .5 mL IM 6+ MO (FLUZONE/FLULAVAL/F LUARIX) Unknown Completed [facility] Pneumococcal Polysaccharide, PPSV23 (PNEUMOVAX) Unknown Completed [facility] TDAP Unknown Completed [facility] Influenza Virus Vaccine (3+ yrs) Unknown Completed [facility] Pneumococcal Polysaccharide, PPSV23 (PNEUMOVAX) Unknown Completed [facility] SARS-COV-2 COVID-19 PFIZER VACCINE Unknown Completed [facility] Influenza Virus Vaccine Quad .5 mL IM 6+ MO (FLUZONE/FLULAVAL/F LUARIX) Unknown Completed [facility] Influenza Virus Vaccine Quad .5 mL IM 6+ MO (FLUZONE/FLULAVAL/F LUARIX) Unknown Completed [facility] Pneumococcal Polysaccharide, PPSV23 (PNEUMOVAX) Unknown Completed [facility] TDAP Unknown Completed [facility] Influenza Virus Vaccine (3+ yrs) Unknown Completed [facility] Pneumococcal Polysaccharide, PPSV23 (PNEUMOVAX) Unknown Completed [facility] SARS-COV-2 COVID-19 PFIZER VACCINE Unknown Completed [facility] Influenza Virus Vaccine Quad .5 mL IM 6+ MO (FLUZONE/FLULAVAL/F LUARIX) Unknown Completed [facility] Influenza Virus Vaccine Quad .5 mL IM 6+ MO (FLUZONE/FLULAVAL/F LUARIX) Unknown Completed [facility] Pneumococcal Polysaccharide, PPSV23 (PNEUMOVAX) Unknown Completed [facility] TDAP Unknown Completed [facility] Influenza Virus Vaccine (3+ yrs) Unknown Completed [facility] Pneumococcal Polysaccharide, PPSV23 (PNEUMOVAX) Unknown Completed [facility] SARS-COV-2 COVID-19 PFIZER VACCINE Unknown Completed [facility] Influenza Virus Vaccine Quad .5 mL IM 6+ MO (FLUZONE/FLULAVAL/F LUARIX) Unknown Completed [facility] Influenza Virus Vaccine Quad .5 mL IM 6+ MO (FLUZONE/FLULAVAL/F LUARIX) Unknown Completed [facility] Pneumococcal Polysaccharide, PPSV23 (PNEUMOVAX) Unknown Completed [facility] TDAP Unknown Completed [facility] Influenza Virus Vaccine (3+ yrs) Unknown Completed [facility] Pneumococcal Polysaccharide, PPSV23 (PNEUMOVAX) Unknown Completed [facility] SARS-COV-2 COVID-19 PFIZER VACCINE Unknown Completed [facility] Influenza Virus Vaccine Quad .5 mL IM 6+ MO (FLUZONE/FLULAVAL/F LUARIX) Unknown Completed [facility] Influenza Virus Vaccine Quad .5 mL IM 6+ MO (FLUZONE/FLULAVAL/F LUARIX) Unknown Completed [facility] Pneumococcal Polysaccharide, PPSV23 (PNEUMOVAX) Unknown Completed [facility] TDAP Unknown Completed [facility] Influenza Virus Vaccine (3+ yrs) Unknown Completed [facility] Pneumococcal Polysaccharide, PPSV23 (PNEUMOVAX) Unknown Completed [facility] SARS-COV-2 COVID-19 PFIZER VACCINE Unknown Completed [facility] Influenza Virus Vaccine Quad .5 mL IM 6+ MO (FLUZONE/FLULAVAL/F LUARIX) Unknown Completed [facility] Influenza Virus Vaccine Quad .5 mL IM 6+ MO (FLUZONE/FLULAVAL/F LUARIX) Unknown Completed [facility] Pneumococcal Polysaccharide, PPSV23 (PNEUMOVAX) Unknown Completed [facility] TDAP Unknown Completed [facility] Influenza Virus Vaccine (3+ yrs) Unknown Completed [facility] Pneumococcal Polysaccharide, PPSV23 (PNEUMOVAX) Unknown Completed [facility] SARS-COV-2 COVID-19 PFIZER VACCINE Unknown Completed [facility] Influenza Virus Vaccine Quad .5 mL IM 6+ MO (FLUZONE/FLULAVAL/F LUARIX) Unknown Completed [facility] Influenza Virus Vaccine Quad .5 mL IM 6+ MO (FLUZONE/FLULAVAL/F LUARIX) Unknown Completed [facility] Pneumococcal Polysaccharide, PPSV23 (PNEUMOVAX) Unknown Completed [facility] TDAP Unknown Completed [facility] Influenza Virus Vaccine (3+ yrs) Unknown Completed [facility] Pneumococcal Polysaccharide, PPSV23 (PNEUMOVAX) Unknown Completed [facility] SARS-COV-2 COVID-19 PFIZER VACCINE Unknown Completed [facility] Influenza Virus Vaccine Quad .5 mL IM 6+ MO (FLUZONE/FLULAVAL/F LUARIX) Unknown Completed [facility] Influenza Virus Vaccine Quad .5 mL IM 6+ MO (FLUZONE/FLULAVAL/F LUARIX) Unknown Completed [facility] Pneumococcal Polysaccharide, PPSV23 (PNEUMOVAX) Unknown Completed [facility] TDAP Unknown Completed [facility] Influenza Virus Vaccine (3+ yrs) Unknown Completed [facility] Pneumococcal Polysaccharide, PPSV23 (PNEUMOVAX) Unknown Completed [facility] SARS-COV-2 COVID-19 PFIZER VACCINE Unknown Completed [facility] Influenza Virus Vaccine Quad .5 mL IM 6+ MO (FLUZONE/FLULAVAL/F LUARIX) Unknown Completed [facility] Influenza Virus Vaccine Quad .5 mL IM 6+ MO (FLUZONE/FLULAVAL/F LUARIX) Unknown Completed [facility] Pneumococcal Polysaccharide, PPSV23 (PNEUMOVAX) Unknown Completed [facility] TDAP Unknown Completed [facility] Influenza Virus Vaccine (3+ yrs) Unknown Completed [facility] Pneumococcal Polysaccharide, PPSV23 (PNEUMOVAX) Unknown Completed [facility] SARS-COV-2 COVID-19 PFIZER VACCINE Unknown Completed [facility] Influenza Virus Vaccine Quad .5 mL IM 6+ MO (FLUZONE/FLULAVAL/F LUARIX) Unknown Completed [facility] Influenza Virus Vaccine Quad .5 mL IM 6+ MO (FLUZONE/FLULAVAL/F LUARIX) Unknown Completed [facility] Pneumococcal Polysaccharide, PPSV23 (PNEUMOVAX) Unknown Completed [facility] TDAP Unknown Completed [facility] Influenza Virus Vaccine (3+ yrs) Unknown Completed [facility] Pneumococcal Polysaccharide, PPSV23 (PNEUMOVAX) Unknown Completed [facility] SARS-COV-2 COVID-19 PFIZER VACCINE Unknown Completed [facility] Influenza Virus Vaccine Quad .5 mL IM 6+ MO (FLUZONE/FLULAVAL/F LUARIX) Unknown Completed [facility] Influenza Virus Vaccine Quad .5 mL IM 6+ MO (FLUZONE/FLULAVAL/F LUARIX) Unknown Completed [facility] Pneumococcal Polysaccharide, PPSV23 (PNEUMOVAX) Unknown Completed [facility] TDAP Unknown Completed [facility] Influenza Virus Vaccine (3+ yrs) Unknown Completed [facility] Pneumococcal Polysaccharide, PPSV23 (PNEUMOVAX) Unknown Completed [facility] SARS-COV-2 COVID-19 PFIZER VACCINE Unknown Completed [facility] Influenza Virus Vaccine Quad .5 mL IM 6+ MO (FLUZONE/FLULAVAL/F LUARIX) Unknown Completed [facility] Influenza Virus Vaccine Quad .5 mL IM 6+ MO (FLUZONE/FLULAVAL/F LUARIX) Unknown Completed [facility] Pneumococcal Polysaccharide, PPSV23 (PNEUMOVAX) Unknown Completed [facility] TDAP Unknown Completed [facility] Influenza Virus Vaccine (3+ yrs) Unknown Completed [facility] Pneumococcal Polysaccharide, PPSV23 (PNEUMOVAX) Unknown Completed [facility] SARS-COV-2 COVID-19 PFIZER VACCINE Unknown Completed [facility] Influenza Virus Vaccine Quad .5 mL IM 6+ MO (FLUZONE/FLULAVAL/F LUARIX) Unknown Completed [facility] Influenza Virus Vaccine Quad .5 mL IM 6+ MO (FLUZONE/FLULAVAL/F LUARIX) Unknown Completed [facility] Pneumococcal Polysaccharide, PPSV23 (PNEUMOVAX) Unknown Completed [facility] TDAP Unknown Completed [facility] Influenza Virus Vaccine (3+ yrs) Unknown Completed [facility] Pneumococcal Polysaccharide, PPSV23 (PNEUMOVAX) Unknown Completed [facility] SARS-COV-2 COVID-19 PFIZER VACCINE Unknown Completed [facility] Influenza Virus Vaccine Quad .5 mL IM 6+ MO (FLUZONE/FLULAVAL/F LUARIX) Unknown Completed [facility] Influenza Virus Vaccine Quad .5 mL IM 6+ MO (FLUZONE/FLULAVAL/F LUARIX) Unknown Completed [facility] Pneumococcal Polysaccharide, PPSV23 (PNEUMOVAX) Unknown Completed [facility] TDAP Unknown Completed [facility] Influenza Virus Vaccine (3+ yrs) Unknown Completed [facility] Pneumococcal Polysaccharide, PPSV23 (PNEUMOVAX) Unknown Completed [facility] SARS-COV-2 COVID-19 PFIZER VACCINE Unknown Completed [facility] Influenza Virus Vaccine Quad .5 mL IM 6+ MO (FLUZONE/FLULAVAL/F LUARIX) Unknown Completed [facility] Influenza Virus Vaccine Quad .5 mL IM 6+ MO (FLUZONE/FLULAVAL/F LUARIX) Unknown Completed [facility] Pneumococcal Polysaccharide, PPSV23 (PNEUMOVAX) Unknown Completed [facility] TDAP Unknown Completed [facility] Influenza Virus Vaccine (3+ yrs) Unknown Completed [facility] Pneumococcal Polysaccharide, PPSV23 (PNEUMOVAX) Unknown Completed [facility] SARS-COV-2 COVID-19 PFIZER VACCINE Unknown Completed [facility] Influenza Virus Vaccine Quad .5 mL IM 6+ MO (FLUZONE/FLULAVAL/F LUARIX) Unknown Completed [facility] Influenza Virus Vaccine Quad .5 mL IM 6+ MO (FLUZONE/FLULAVAL/F LUARIX) Unknown Completed [facility] Pneumococcal Polysaccharide, PPSV23 (PNEUMOVAX) Unknown Completed [facility] TDAP Unknown Completed [facility] Influenza Virus Vaccine (3+ yrs) Unknown Completed [facility] Pneumococcal Polysaccharide, PPSV23 (PNEUMOVAX) Unknown Completed [facility] SARS-COV-2 COVID-19 PFIZER VACCINE Unknown Completed [facility] Influenza Virus Vaccine Quad .5 mL IM 6+ MO (FLUZONE/FLULAVAL/F LUARIX) Unknown Completed [facility] Influenza Virus Vaccine Quad .5 mL IM 6+ MO (FLUZONE/FLULAVAL/F LUARIX) Unknown Completed [facility] Pneumococcal Polysaccharide, PPSV23 (PNEUMOVAX) Unknown Completed [facility] TDAP Unknown Completed [facility] Influenza Virus Vaccine (3+ yrs) Unknown Completed [facility] Pneumococcal Polysaccharide, PPSV23 (PNEUMOVAX) Unknown Completed [facility] SARS-COV-2 COVID-19 PFIZER VACCINE Unknown Completed [facility] Influenza Virus Vaccine Quad .5 mL IM 6+ MO (FLUZONE/FLULAVAL/F LUARIX) Unknown Completed [facility] Influenza Virus Vaccine Quad .5 mL IM 6+ MO (FLUZONE/FLULAVAL/F LUARIX) Unknown Completed [facility] Pneumococcal Polysaccharide, PPSV23 (PNEUMOVAX) Unknown Completed [facility] TDAP Unknown Completed [facility] Influenza Virus Vaccine (3+ yrs) Unknown Completed [facility] Pneumococcal Polysaccharide, PPSV23 (PNEUMOVAX) Unknown Completed [facility] SARS-COV-2 COVID-19 PFIZER VACCINE Unknown Completed [facility] Influenza Virus Vaccine Quad .5 mL IM 6+ MO (FLUZONE/FLULAVAL/F LUARIX) Unknown Completed [facility] Influenza Virus Vaccine Quad .5 mL IM 6+ MO (FLUZONE/FLULAVAL/F LUARIX) Unknown Completed [facility] Pneumococcal Polysaccharide, PPSV23 (PNEUMOVAX) Unknown Completed [facility] TDAP Unknown Completed [facility] Influenza Virus Vaccine (3+ yrs) Unknown Completed [facility] Pneumococcal Polysaccharide, PPSV23 (PNEUMOVAX) Unknown Completed [facility] SARS-COV-2 COVID-19 PFIZER VACCINE Unknown Completed [facility] Influenza Virus Vaccine Quad .5 mL IM 6+ MO (FLUZONE/FLULAVAL/F LUARIX) Unknown Completed [facility] Influenza Virus Vaccine Quad .5 mL IM 6+ MO (FLUZONE/FLULAVAL/F LUARIX) Unknown Completed [facility] Pneumococcal Polysaccharide, PPSV23 (PNEUMOVAX) Unknown Completed [facility] TDAP Unknown Completed [facility] Influenza Virus Vaccine (3+ yrs) Unknown Completed [facility] Pneumococcal Polysaccharide, PPSV23 (PNEUMOVAX) Unknown Completed [facility] SARS-COV-2 COVID-19 PFIZER VACCINE Unknown Completed [facility] Influenza Virus Vaccine Quad .5 mL IM 6+ MO (FLUZONE/FLULAVAL/F LUARIX) Unknown Completed [facility] Vital Signs Vital Name Observation Time Observation Value Comments S ource Systolic blood pressure 2023-06-07 14:42:00 109 mm[Hg] General acute hospital Diastolic blood pressure 2023-06-07 14:42:00 66 mm[Hg] General acute hospital Heart rate 2023-06-07 14:42:00 64 /min Un[facility] Body temperature 2023-06-07 14:42:00 36.11 Andreina [facility] Body height 2023-06-07 14:42:00 175.3 cm [facility] Body weight 2023-06-07 14:42:00 83.008 kg [facility] BMI 2023-06-07 14:42:00 27.02 kg/m2 [facility] Oxygen saturation in Arterial blood by Pulse oximetry 2023-06-07 14:42:00 97 /min General acute hospital Systolic blood pressure 2023-01-13 20:40:00 133 mm[Hg] General acute hospital Diastolic blood pressure 2023-01-13 20:40:00 72 mm[Hg] General acute hospital Heart rate 2023-01-13 20:40:00 64 /min Unive [facility] Body temperature 2023-01-13 20:40:00 36.56 [facility] Respiratory rate 2023-01-13 20:40:00 18 /min [facility] Body height 2023-01-13 20:40:00 175.3 cm [facility] Body weight 2023-01-13 20:40:00 88.497 kg [facility] BMI 2023-01-13 20:40:00 28.81 kg/m2 [facility] Oxygen saturation in Arterial blood by Pulse oximetry 2023-01-13 20:40:00 98 /min General acute hospital Systolic blood pressure 2022-12-23 16:42:00 115 mm[Hg] General acute hospital Diastolic blood pressure 2022-12-23 16:42:00 66 mm[Hg] General acute hospital Heart rate 2022-12-23 16:42:00 60 /min Un[facility] Body temperature 2022-12-23 16:42:00 36.11 Andreina [facility] Body height 2022-12-23 16:42:00 175.3 cm Univ [facility] Body weight 2022-12-23 16:42:00 87.726 kg [facility] BMI 2022-12-23 16:42:00 28.56 kg/m2 Univ [facility] Oxygen saturation in Arterial blood by Pulse oximetry 2022-12-23 16:42:00 99 /min General acute hospital Systolic blood pressure 2022-11-16 14:11:00 123 mm[Hg] General acute hospital Diastolic blood pressure 2022-11-16 14:11:00 61 mm[Hg] General acute hospital Heart rate 2022-11-16 14:11:00 65 /min Un[facility] Body temperature 2022-11-16 14:11:00 36.61 Andreina [facility] Respiratory rate 2022-11-16 14:11:00 18 /min [facility] Body height 2022-11-16 14:11:00 175.3 cm Univ [facility] Body weight 2022-11-16 14:11:00 85.73 kg Univ [facility] BMI 2022-11-16 14:11:00 27.91 kg/m2 Univ [facility] Body height 2022-11-01 15:20:00 175.3 cm Univ [facility] Systolic blood pressure 2022-10-26 16:18:00 109 mm[Hg] General acute hospital Diastolic blood pressure 2022-10-26 16:18:00 59 mm[Hg] General acute hospital Heart rate 2022-10-26 16:18:00 66 /min Un[facility] Body temperature 2022-10-26 16:18:00 36.11 Andreina [facility] Body height 2022-10-26 16:18:00 175.3 cm [facility] Body weight 2022-10-26 16:18:00 88.134 kg Univ [facility] BMI 2022-10-26 16:18:00 28.69 kg/m2 Univ [facility] Oxygen saturation in Arterial blood by Pulse oximetry 2022-10-26 16:18:00 97 /min [facility] acute hospital Body height 2022-09-16 18:44:00 175.3 cm Univ [facility] Systolic blood pressure 2022-09-02 14:05:00 132 mm[Hg] General acute hospital Diastolic blood pressure 2022-09-02 14:05:00 79 mm[Hg] General acute hospital Heart rate 2022-09-02 14:05:00 64 /min Unive [facility] Body temperature 2022-09-02 14:05:00 36.28 Andreina [facility] Respiratory rate 2022-09-02 14:05:00 18 /min [facility] Body height 2022-09-02 14:05:00 175.3 cm [facility] Body weight 2022-09-02 14:05:00 89.812 kg [facility] BMI 2022-09-02 14:05:00 29.24 kg/m2 [facility] Oxygen saturation in Arterial blood by Pulse oximetry 2022-09-02 14:05:00 96 /min General acute hospital Systolic blood pressure 2022-08-24 16:59:00 122 mm[Hg] General acute hospital Diastolic blood pressure 2022-08-24 16:59:00 78 mm[Hg] General acute hospital Heart rate 2022-08-24 16:59:00 64 /min Unive [facility] Body temperature 2022-08-24 16:59:00 36.11 Andreina [facility] Body height 2022-08-24 16:59:00 175.3 cm Univ [facility] Body weight 2022-08-24 16:59:00 88.996 kg [facility] BMI 2022-08-24 16:59:00 28.97 kg/m2 [facility] Oxygen saturation in Arterial blood by Pulse oximetry 2022-08-24 16:59:00 98 /min General acute hospital Systolic blood pressure 2022-02-11 17:42:00 133 mm[Hg] General acute hospital Diastolic blood pressure 2022-02-11 17:42:00 68 mm[Hg] General acute hospital Heart rate 2022-02-11 17:42:00 60 /min Unive [facility] Body height 2022-02-11 17:42:00 175.3 cm [facility] Body weight 2022-02-11 17:42:00 92.625 kg [facility] BMI 2022-02-11 17:42:00 30.16 kg/m2 [facility] Oxygen saturation in Arterial blood by Pulse oximetry 2022-02-11 17:42:00 97 /min General acute hospital Systolic blood pressure 2022-02-09 18:02:00 131 mm[Hg] General acute hospital Diastolic blood pressure 2022-02-09 18:02:00 71 mm[Hg] General acute hospital Heart rate 2022-02-09 18:02:00 66 /min Unive [facility] Body temperature 2022-02-09 18:02:00 36.5 Andreina [facility] Respiratory rate 2022-02-09 18:02:00 16 /min [facility] Body height 2022-02-09 18:02:00 175.3 cm Univ [facility] Body weight 2022-02-09 18:02:00 92.08 kg [facility] BMI 2022-02-09 18:02:00 29.98 kg/m2 [facility] Oxygen saturation in Arterial blood by Pulse oximetry 2022-02-09 18:02:00 95 /min General acute hospital Systolic blood pressure 2021-12-31 19:06:00 128 mm[Hg] General acute hospital Diastolic blood pressure 2021-12-31 19:06:00 66 mm[Hg] General acute hospital Heart rate 2021-12-31 19:06:00 81 /min [facility] Body temperature 2021-12-31 19:06:00 36.28 Andreina [facility] Respiratory rate 2021-12-31 19:06:00 18 /min [facility] Oxygen saturation in Arterial blood by Pulse oximetry 2021-12-31 19:06:00 98 /min General acute hospital Body height 2021-12-29 00:08:00 175.3 cm Univ [facility] Body weight 2021-12-29 00:08:00 94.7 kg Univ [facility] BMI 2021-12-29 00:08:00 30.83 kg/m2 Univ [facility] Systolic blood pressure 2021-12-28 11:15:00 159 mm[Hg] General acute hospital Diastolic blood pressure 2021-12-28 11:15:00 86 mm[Hg] General acute hospital Heart rate 2021-12-28 11:15:00 80 /min Unive [facility] Body temperature 2021-12-28 11:15:00 36.33 Andreina [facility] Respiratory rate 2021-12-28 11:15:00 16 /min [facility] Body height 2021-12-28 11:15:00 175.3 cm Univ [facility] Body weight 2021-12-28 11:15:00 94.7 kg [facility] BMI 2021-12-28 11:15:00 30.83 kg/m2 Univ [facility] Systolic blood pressure 2021-10-27 20:05:00 148 mm[Hg] General acute hospital Diastolic blood pressure 2021-10-27 20:05:00 86 mm[Hg] General acute hospital Heart rate 2021-10-27 20:05:00 66 /min Unive [facility] Body temperature 2021-10-27 20:05:00 36.44 Andreina [facility] Respiratory rate 2021-10-27 20:05:00 16 /min [facility] Body height 2021-10-27 20:05:00 175.3 cm Univ [facility] Body weight 2021-10-27 20:05:00 94.802 kg [facility] BMI 2021-10-27 20:05:00 30.86 kg/m2 [facility] Oxygen saturation in Arterial blood by Pulse oximetry 2021-10-27 20:05:00 96 /min General acute hospital Systolic blood pressure 2021-09-29 19:58:00 136 mm[Hg] General acute hospital Diastolic blood pressure 2021-09-29 19:58:00 75 mm[Hg] [facility] Heart rate 2021-09-29 19:58:00 72 /min [facility] Respiratory rate 2021-09-29 19:58:00 18 /min [facility] Body height 2021-09-29 19:58:00 175.3 cm [facility] Body weight 2021-09-29 19:58:00 95.165 kg [facility] BMI 2021-09-29 19:58:00 30.98 kg/m2 [facility] Oxygen saturation in Arterial blood by Pulse oximetry 2021-09-29 19:58:00 97 /min [facility] Procedures Procedure Date / Time Performed Performing Clinician Source INSURANCE CORRESPONDENCE 2023-04-26 05:01:00 Minh nickerson Unassigned, [place] [facility] CONSENT/REFUSAL FOR DIAGNOSIS AND TREATMENT 2023-02-17 20:03:30 Doctor Unassigned, [place] [facility] HB ECG ROUTINE & RHYTHM STRIP 2023-01-13 20:42:56 Irais Benson [facility] INSURANCE CORRESPONDENCE 2022-12-17 06:01:00 Doc krishan Unassigned, [place] [facility] INSURANCE CORRESPONDENCE 2022-12-01 05:01:00 Doc krishan Unassigned, [place] [facility] PATIENT FINANCIAL POLICY 2022-10-07 14:51:25 Doctor Unassigned, [place] [facility] ASSIGNMENT OF BENEFITS 2022-02-09 16:56:29 Alessio r Unassigned, [place] [facility] COVID-19 (ID NOW RAPID TESTING) 2021-12-30 23:26:00 Gail Herrera Hilda [facility] LAB ONLY COVID INTERPRETATION 2021-12-30 23:26:00 Gail Herrera Hilda [facility] XR CHEST 1 VW 2021-12-30 16:29:00 Brandon Wheatley [facility] CREATININE 2021-12-30 00:42:00 Ulysses Herrera [facility] XR CHEST 1 2021-12-29 14:02:00 Jaswinder Escobar [facility] XR CHEST 1 VW 2021-12-29 14:02:00 Jaswinder Escobar [facility] INTUBATION 2021-12-28 13:26:00 Danny Sun [facility] LAPAROSCOPIC ASSISTED ROBOTIC ABDOMINAL WALL RECONSTRUCTION 2021-12-28 12:54:00 Dagoberto Shaw [facility] LAPAROSCOPIC ASSISTED ROBOTIC ABDOMINAL WALL RECONSTRUCTION 2021-12-28 12:54:00 Dagoberto Shaw [facility] DAY SURGERY [facility] 2021-12-28 06:01:00 Doct or Unassigned, [place] [facility] DISCLOSURE AND CONSENT, MEDICAL AND SURGICAL PROCEDURES 2021-10-27 05:01:00 Doctor Unassigned, [place] [facility] Encounters Start Date/Time End Date/Time Encounter Type Admission Type Attending [facility] Facility Care Department Encounter ID Source 2021-02-13 11:35:03 Outpatient R [facility] [id number] [facility] 2020-12-08 19:25:54 Emergency [id number] [facility] 2020-12-08 13:57:37 Emergency [facility] [id number] [facility] 2020-12-08 04:00:00 Emergency [facility] [id number] [facility] 2020-12-07 10:52:27 Emergency X [facility] [id number] [facility] 2020-12-07 10:51:36 Emergency [facility] [id number] [facility] 2020-12-07 05:39:59 Emergency [facility] [id number] [facility] 2020-12-06 07:40:04 Emergency [facility] [id number] [facility] 2020-12-05 20:55:47 Emergency [facility] [id number] [facility] 2020-12-05 20:13:24 Emergency [facility] [id number] [facility] 2020-12-05 19:07:25 Emergency [facility] [id number] [facility] 2020-12-05 18:41:54 Emergency [facility] [id number] [facility] 2023-06-23 11:30:00 2023-06-23 11:30:00 Outpatient R CRISTAL ONTIVEROS [facility] [id number] [facility] 2023-06-13 10:45:00 2023-06-13 10:45:[address] [facility] [id number] [facility] 2023-06-10 10:30:00 2023-06-10 10:30:00 Outpatient R THAI ASLGUERO [facility] [id number] [facility] 2023-06-07 10:00:00 2023-06-07 10:41:35 Outpatient R WANDA SOTO [facility] [id number] [facility] 2023-06-07 10:00:00 2023-06-07 10:41:35 Office Visit Wanda Soto [facility] 1.0.114 350.1.13.10 4.2.7.2.686 [id number] [facility] 2023-05-30 00:00:00 2023-05-30 00:00:00 Patient Secure Msg Wanda Soto [facility] 1.0.114 350.1.13.10 4.2.7.2.686 [id number] [facility] 2023-05-26 00:00:00 2023-05-26 00:00:00 Telephone Lorri Carrillo [facility] 1..114 350.1.13.10 4.2.7.2.686 [id number] [facility] 2023-05-20 00:00:00 2023-05-20 00:00:00 Prep For Surgery Sheryl Ramesh [facility] 1.2.840.114 350.1.13.10 4.2.7.2.686 [id number] [facility] 2023-05-09 12:20:00 2023-05-09 12:20:00 Outpatient FRANKLYN MILLS HOWARD [facility] [id number] [facility] 2023-04-28 00:00:00 2023-04-28 00:00:00 Telephone Wanda Soto [facility] 1.2840.114 350.1.13.10 4.2.7.2.686 [id number] 201 [id number] [facility] 2023-04-26 00:00:00 2023-04-26 00:00:00 Telephone Wanda Soto [facility] 1.840.114 350.1.13.10 4.2.7.2.686 [id number] [facility] 2023-04-26 00:00:00 2023-04-26 00:00:00 Orders Only Doctor Unassigned, [place] [facility] 1..114 350.1.13.10 4.2.7.2.686 [id number] [facility] 2023-04-25 13:00:00 2023-04-25 13:00:00 Outpatient FRANKLYN MILLS HOWARD [facility] [id number] [facility] 2023-04-19 00:00:00 2023-04-19 00:00:00 Patient Secure Msg Wanda Soto [facility] 1.2840.114 350.1.13.10 4.2.7.2.686 [id number] 201 [id number] [facility] 2023-03-17 00:00:00 2023-03-17 00:00:00 Patient Secure Msg Doctor Unassigned, [place] [id number] 350.1.13.10 4.2.7.2.686 [id number] [facility] 2023-03-11 10:15:00 2023-03-11 10:31:18 Outpatient R THAI SALGUERO [facility] [id number] [facility] 2023-03-11 10:15:00 2023-03-11 10:31:18 Office Visit Thai Salguero [facility] 1..114 350.1.13.10 4.2.7.2.686 [id number] [facility] 2023-02-26 00:00:00 2023-02-26 00:00:00 Patient Secure Wanda Rose [facility] 1.114 350.1.13.10 4.2.7.2.686 [id number] 201 [id number] [facility] 2023-02-23 00:00:00 2023-02-23 00:00:00 [facility] 1.114 350.1.13.10 4.2.7.2.686 [id number] [facility] 2023-02-17 14:03:57 2023-02-17 23:59:00 Outpatient R IRAIS BENSON [facility] [id number] [facility] 2023-02-17 14:03:57 2023-02-17 23:59:00 [facility] 1..114 350.1.13.10 4.2.7.2.686 [id number] [facility] 2023-02-17 00:00:00 2023-02-17 00:00:00 Orders Only Doctor Unassigned, [place] [facility] 1..114 350.1.13.10 4.2.7.2.686 [id number] [facility] 2023-02-14 09:30:00 2023-02-14 09:30:00 Outpatient THAI DILLON [facility] [id number] [facility] 2023-02-01 00:00:00 2023-02-01 00:00:00 Patient Secure Msg Marcelino [facility] 1.2.840.114 350.1.13.10 4.2.7.2.686 [id number] [facility] 2023-01-27 00:00:00 2023-01-27 00:00:00 Patient Secure Msg Wanda Soto [facility] 1.840.114 350.1.13.10 4.2.7.2.686 [id number] [facility] 2023-01-21 00:00:00 2023-01-21 00:00:00 Patient Secure Msg Wanda Soto [facility] 1.840.114 350.1.13.10 4.2.7.2.686 [id number] [facility] 2023-01-21 00:00:00 2023-01-21 00:00:00 Telephone Wanda Soto [facility] 1.2840.114 350.1.13.10 4.2.7.2.686 [id number] [facility] 2023-01-13 15:20:00 2023-01-13 15:54:24 Outpatient R IRAIS BENSON [facility] [id number] [facility] 2023-01-13 15:20:00 2023-01-13 15:54:24 [facility].114 350.1.13.10 4.2.7.2.686 [id number] [facility] 2022-12-23 10:30:00 2022-12-23 11:18:59 Outpatient R CRISTAL ONTIVEROS [facility] [id number] [facility] 2022-12-23 10:30:00 2022-12-23 11:18:59 Office Visit Cristal Ontiveros [facility] 1.2.840.114 350.1.13.10 4.2.7.2.686 [id number] [facility] 2022-12-17 00:00:00 2022-12-17 00:00:00 Orders Only Doctor Unassigned, [place] [facility] 1.2840.114 350.1.13.10 4.2.7.2.686 [id number] [facility] 2022-12-17 00:00:00 2022-12-17 00:00:00 Telephone Wanda Soto [facility] 1.2840.114 350.1.13.10 4.2.7.2.686 [id number] [facility] 2022-12-10 00:00:00 2022-12-10 00:00:00 Patient Secure Msg Doctor Unassigned, [place] [facility] 1.20.114 350.1.13.10 4.2.7.2.686 [id number] [facility] 2022-12-06 10:00:00 2022-12-06 10:11:17 Outpatient R THAI SALGUERO [facility] [id number] [facility] 2022-12-06 10:00:00 2022-12-06 10:11:17 Office Visit Thai Salguero [facility] 1.0.114 350.1.13.10 4.2.7.2.686 [id number] [facility] 2022 10:20:00 2022 10:20:00 Outpatient R EDIL FENG [facility] [id number] [facility] 2022 00:00:00 2022 00:00:00 Telephone PingEdil [facility] 1.2.840.114 350.1.13.10 4.2.7.2.686 [id number] [facility] 2022-12-01 00:00:00 2022-12-01 00:00:00 Orders Only Doctor Unassigned, [place] [facility] 1.2.840.114 350.1.13.10 4.2.7.2.686 [id number] [facility] 2022-12-01 00:00:00 2022-12-01 00:00:00 Telephone Wanda Soto [facility] 1.2.840.114 350.1.13.10 4.2.7.2.686 [id number] [facility] 2022-11-19 00:00:00 2022-11-19 00:00:00 Telephone Wanda Soto [facility] 1.2.840.114 350.1.13.10 4.2.7.2.686 [id number] [facility] 2022-11-16 09:30:00 2022-11-16 10:14:11 Outpatient R CAROLA CRUZ [facility] [id number] [facility] 2022-11-16 09:30:00 2022-11-16 10:14:11 Office Visit Carola Cruz [facility] 1.2840.114 350.1.13.10 4.2.7.2.686 [id number] [facility] 2022-11-01 10:30:00 2022-11-01 10:52:33 Outpatient R THAI SALGUERO [facility] [id number] [facility] 2022-11-01 10:30:00 2022-11-01 10:52:33 Office Visit Arely [facility] 1.840.114 350.1.13.10 4.2.7.2.686 [id number] [facility] 2022-10-26 11:00:00 2022-10-26 12:55:13 Outpatient R CRISTAL ONTIVEROS [facility] [id number] [facility] 2022-10-26 11:00:00 2022-10-26 12:55:13 Office Visit Cristal Ontiveros [facility] 1.84.114 350.1.13.10 4.2.7.2.686 [id number] [facility] 2022-10-14 00:00:00 2022-10-14 00:00:[facility] 1.84.114 350.1.13.10 4.2.7.2.686 [id number] [facility] 2022-10-07 11:00:00 2022-10-07 11:15:00 Firebrick Layer Visit [facility] Arely [facility] 1.284.114 350.1.13.10 4.2.7.2.686 [id number] [facility] 2022-10-07 11:00:00 2022-10-07 11:00:00 Outpatient R THAI SALGUERO [facility] [id number] [facility] 2022-10-07 10:30:00 2022-10-07 10:51:32 [facility] 1.2.840.114 350.1.13.10 4.2.7.2.686 [id number] [facility] 2022-10-07 00:00:00 2022-10-07 00:00:00 Orders Only Doctor Unassigned, [place] [facility] 1.2.840.114 350.1.13.10 4.2.7.2.686 [id number] [facility] 2022-10-06 00:00:00 2022-10-06 00:00:00 Telephone Arely [facility] 1.2840.114 350.1.13.10 4.2.7.2.686 [id number] [facility] 2022-10-04 00:00:00 2022-10-04 00:00:00 Patient Secure Wanda Palomares [facility] 1.2840.114 350.1.13.10 4.2.7.2.686 [id number] [facility] 2022-09-17 00:00:00 2022-09-17 00:00:00 Telephone Adalberto Mera [facility] 1.2840.114 350.1.13.10 4.2.7.2.686 [id number] [facility] 2022-09-16 14:15:00 2022-09-16 14:46:45 Outpatient R THAI SALGUERO [facility] [id number] [facility] 2022-09-16 14:15:00 2022-09-16 14:46:45 Office Visit Adalberto Mera [facility] 1.2840.114 350.1.13.10 4.2.7.2.686 [id number] [facility] 2022-09-10 00:00:00 2022-09-10 00:00:00 Telephone Irais Benson [facility] 1.0.114 350.1.13.10 4.2.7.2.686 [id number] [facility] 2022-09-10 00:00:00 2022-09-10 00:00:00 Telephone Lorri Carrillo [facility] 1..114 350.1.13.10 4.2.7.2.686 [id number] [facility] [facility] 2022-09-02 09:00:00 2022-09-02 09:29:40 Outpatient R JOSEPH LUDMILA [facility] [id number] [facility] 2022-09-02 09:00:00 2022-09-02 09:29:40 Office Visit Ludmila Ruiz [facility] 1.0.114 350.1.13.10 4.2.7.2.686 [id number] [facility] 2022-08-30 00:00:00 2022-08-30 00:00:00 Patient Secure Msg Doctor Unassigned, [place] [facility] 1..114 350.1.13.10 4.2.7.2.686 [id number] [facility] 2022-08-24 10:45:00 2022-08-24 13:05:10 Outpatient WANDA HOPKINS [facility] [id number] [facility] 2022-08-24 10:45:00 2022-08-24 13:05:10 Office Visit Wanda Soto [facility] 1..114 350.1.13.10 4.2.7.2.686 [id number] [facility] 2022-07-20 11:15:00 2022-07-20 11:15:00 Outpatient KRISTI MARSH MARISOL [facility] [id number] [facility] 2022-07-09 00:00:00 2022-07-09 00:00:00 Patient Secure Msg Doctor Unassigned, [place] [facility] 1.840.114 350.1.13.10 4.2.7.2.686 [id number] [facility] 2022-07-05 00:00:00 2022-07-05 00:00:00 Patient Secure Msg Dagoberto Shaw [facility] 1..840.114 350.1.13.10 4.2.7.2.686 [id number] [facility] 2022-06-03 09:30:00 2022-06-03 09:57:54 Outpatient R LUDMILA RUIZ [facility] [id number] [facility] 2022-06-01 11:15:00 2022-06-01 11:15:00 Outpatient R ROSA ISELA Reed, KRISTI JOSE EDUARDO-LONI Reed, KRISTI [facility] [id number] [facility] 2022-05-27 00:00:00 2022-05-27 00:00:00 Telephone Edil Feng [facility] 1..840.114 350.1.13.10 4.2.7.2.686 [id number] [facility] 2022-05-20 09:59:03 2022-05-20 23:59:00 Outpatient R EDIL FENG [facility] [id number] [facility] 2022-05-18 00:00:00 2022-05-18 00:00:00 Telephone Irais Benson [facility] 1..840.114 350.1.13.10 4.2.7.2.686 [id number] [facility] 2022-05-17 00:00:00 2022-05-17 00:00:00 Telephone Irais Benson [facility] 1..840.114 350.1.13.10 4.2.7.2.686 [id number] [facility] 2022-05-13 10:00:00 2022-05-13 10:00:00 Outpatient LUDMILA GIL [facility] [id number] [facility] 2022-04-19 00:00:00 2022-04-19 00:00:00 Patient Secure Msg Doctor Unassigned, [place] [facility] 1..840.114 350.1.13.10 4.2.7.2.686 [id number] [facility] 2022-04-08 10:00:00 2022-04-08 10:13:27 Outpatient LUDMILA GIL [facility] [id number] [facility] 2022-04-06 13:30:00 2022-04-06 13:30:00 Outpatient LUDMILA GIL [facility] [id number] [facility] 2022-02-11 10:20:00 2022-02-11 23:59:00 Outpatient EDIL MERCEDES [facility] [id number] [facility] 2022-02-11 11:20:00 2022-02-11 11:40:00 Office Visit Ping Edil [facility] 1.2.840.114 350.1.13.10 4.2.7.2.686 [id number] [facility] 2022-02-09 11:30:00 2022-02-09 12:15:22 Outpatient DAGOBERTO MONTEIRO [facility] [id number] [facility] 2022-02-09 11:30:00 2022-02-09 12:15:22 Office Visit Dagoberto Shaw [facility] 1.2.840.114 350.1.13.10 4.2.7.2.686 [id number] [facility] 2022-02-09 00:00:00 2022-02-09 00:00:00 Orders Only Doctor Unassigned, [place] [facility] 1.2.840.114 350.1.13.10 4.2.7.2.686 [id number] [facility] 2022-01-26 16:00:00 2022-01-26 16:00:00 Outpatient R DAGOBERTO SHAW [facility] [id number] [facility] 2022-01-19 00:00:00 2022-01-19 00:00:00 Telephone Colin [facility] OFFICE BUILDING 1.2.840.114 350.1.13.10 4.2.7.2.686 [id number] [facility] 2022-01-12 00:00:00 2022-01-12 00:00:00 Telephone Colni [facility] 1.2.840.114 350.1.13.10 4.2.7.2.686 [id number] [facility] 2022-01-07 09:40:00 2022-01-07 09:40:00 Outpatient R EDIL FENG [facility] [id number] [facility] 2021-12-28 05:11:00 2021-12-31 16:54:00 Outpatient R DAGOBERTO SHAW [facility] [id number] [facility] 2021-12-28 05:11:00 2021-12-31 16:54:00 Hospital Encounter Colin Dagoberto [facility] 1.2.840.114 350.1.13.10 4.2.7.2.686 [id number] [facility] 2021-12-28 07:20:00 2021-12-28 13:02:00 Anesthesia Event Heaven Walter Christopher K [facility] 1.2840.114 350.1.13.10 4.2.7.2.686 [id number] [facility] 2021-12-28 06:50:00 2021-12-28 11:07:00 Surgery [facility] 1.2.840.114 350.1.13.10 4.2.7.2.686 [id number] [facility] 2021-12-28 00:00:00 2021-12-28 00:00:00 Orders Only Doctor Unassigned, [place] [facility] 1.2.840.114 350.1.13.10 4.2.7.2.686 [id number] [facility] 2021-12-25 00:00:00 2021-12-25 00:00:00 Outpatient EDIL MERCEDES [facility] [id number] [facility] 2021-12-25 00:00:00 2021-12-25 00:00:00 Telephone Colin [facility] MEDICAL OFFICE BUILDING 1.2840.114 350.1.13.10 4.2.7.2.686 [id number] [facility] 2021-12-25 00:00:00 2021-12-25 00:00:00 [facility] 1.2840.114 350.1.13.10 4.2.7.2.686 [id number] [facility] 2021-12-24 13:35:11 2021-12-24 23:59:00 Outpatient EDIL [facility]ES [facility] [id number] [facility] 2021-12-24 13:30:00 2021-12-24 23:59:00 Hospital Encounter Edil Feng [facility] 1.2840.114 350.1.13.10 4.2.7.2.686 [id number] [facility] 2021-12-24 00:00:00 2021-12-24 00:00:00 Telephone Colin [facility] MEDICAL OFFICE BUILDING 1.2.840.114 350.1.13.10 4.2.7.2.686 [id number] [facility] 2021-12-04 10:20:00 2021-12-04 10:20:00 Outpatient EDIL [facility] [id number] [facility] 2021-11-09 00:00:00 2021-11-09 00:00:00 Patient Secure Msg Doctor Unassigned, [place] [facility] 1.2.840.114 350.1.13.10 4.2.7.2.686 [id number] [facility] 2021-10-27 15:00:00 2021-10-27 15:15:00 Office Visit Colin [facility] MEDICAL OFFICE BUILDING 1.2.840.114 350.1.13.10 4.2.7.2.686 [id number] [facility] 2021-10-27 15:00:00 2021-10-27 15:00:00 Outpatient R COLIN [facility] [id number] [facility] 2021-10-27 00:00:00 2021-10-27 00:00:00 Orders Only Doctor Unassigned, [place] [facility] 1.2840.114 350.1.13.10 4.2.7.2.686 [id number] [facility] 2021-10-05 09:15:00 2021-10-05 09:15:00 Outpatient R BRENT WELLS [facility] [id number] [facility] 2021-10-02 15:00:00 2021-10-02 15:00:00 Outpatient EDIL [facility]ES [facility] [id number] [facility] 2021-09-29 14:45:00 2021-09-29 15:00:00 Office Visit [facility] 1.2.840.114 350.1.13.10 4.2.7.2.686 [id number] [facility] 2021-09-29 14:45:00 2021-09-29 14:45:00 Outpatient R JOSEPH LUDMILA [facility] [id number] [facility] 2021-09-29 09:15:00 2021-09-29 09:15:00 Outpatient R BRENT WELLS [facility] [id number] [facility] 2021-09-28 00:00:00 2021-09-28 00:00:00 Telephone Joseph [facility] 1..840.114 350.1.13.10 4.2.7.2.686 [id number] [facility] 2021-09-25 10:40:00 2021-09-25 10:40:00 Outpatient Raya [facility] [id number] [facility] 2021-09-25 10:40:00 2021-09-25 10:40:00 Outpatient [facility] [id number] [facility] 2021-09-19 00:00:00 2021-09-19 00:00:00 Patient Secure Msg Doctor Unassigned, [place] [facility] 1..840.114 350.1.13.10 4.2.7.2.686 [id number] [facility] 2021-09-17 11:39:36 2021-09-17 23:59:00 Outpatient R CHARLOTTE VILLALPANDO [facility] [id number] [facility] 2021-09-17 11:39:36 2021-09-17 23:59:00 [facility] 1.2840.114 350.1.13.10 4.2.7.2.686 [id number] [facility] 2021-09-14 08:30:00 2021-09-14 09:03:05 [facility] [id number] 2021-09-14 08:30:00 2021-09-14 09:03:05 [facility] 1.2840.114 350.1.13.10 4.2.7.2.686 [id number] [facility] 2021-08-12 10:30:00 2021-08-12 10:30:00 [facility] [id number] [facility] 2021-07-29 09:30:00 2021-07-29 09:30:00 [facility] [id number] [facility] 2021-07-20 09:30:00 2021-07-20 09:30:00 Outpatient R [facility] [id number] [facility] 2021-07-14 00:00:00 2021-07-14 00:00:00 Patient Secure Msg Doctor Unassigned, [place] [facility] 1.840.114 350.1.13.10 4.2.7.2.686 [id number] [facility] 2021-07-03 09:00:00 2021-07-03 09:24:03 Office Visit Edil Feng [facility] 1.2.840.114 350.1.13.10 4.2.7.2.686 [id number] [facility] 2021-07-03 09:00:00 2021-07-03 09:24:03 Outpatient R SEWANI, EDIL [facility] [id number] [facility] 2021-07-03 09:00:00 2021-07-03 09:00:00 Outpatient EDIL MERCEDES [facility] [id number] [facility] 2021-06-30 15:30:00 2021-06-30 15:30:00 Outpatient LUDMILA GIL [facility] [id number] [facility] 2021-06-26 10:00:00 2021-06-26 10:00:00 Outpatient EDIL [facility]ES [facility] [id number] [facility] 2021-06-26 10:00:00 2021-06-26 10:00:00 Outpatient EDIL [facility]ES [facility] [id number] [facility] 2021-06-26 10:00:00 2021-06-26 10:00:00 Outpatient EDIL [facility]CEDES [facility] [id number] [facility] 2021-05-29 00:00:00 2021-05-29 00:00:00 Orders Only Doctor Unassigned, [place] [facility] 1..840.114 350.1.13.10 4.2.7.2.686 [id number] [facility] 2021-05-20 00:00:00 2021-05-20 00:00:00 Transition of Care Arina Ramsay 1..840.114 350.1.13.10 4.2.7.2.686 [id number] [facility] 2021-05-19 16:30:00 2021-05-19 16:30:00 Outpatient LUDMILA GIL [facility] [id number] [facility] 2021-05-14 17:03:00 2021-05-19 15:35:00 Outpatient PATRICIA GUZMAN [facility] [id number] [facility] 2021-05-14 17:03:00 2021-05-19 15:35:00 Emergency [place], Noel Tom Lopez [facility] 1.840.114 350.1.13.10 4.2.7.2.686 [id number] [facility] 2021-05-12 16:15:00 2021-05-12 16:15:00 Outpatient LUDMILA GIL [facility] [id number] [facility] 2021-05-11 00:00:00 2021-05-11 00:00:00 Franklyn Dominguez [facility] 1.840.114 350.1.13.10 4.2.7.2.686 [id number] [facility] 2021-05-08 11:00:00 2021-05-08 11:00:00 Outpatient Raya RUIZ LUDMILA [facility] [id number] [facility] 2021-05-08 00:00:00 2021-05-08 00:00:00 Telephone Ludmila Ruiz [facility] 1.840.114 350.1.13.10 4.2.7.2.686 [id number] [facility] 2021-04-22 07:01:00 2021-04-30 17:49:00 Inpatient LUDMILA GIL [facility] [id number] [facility] 2021-04-22 07:01:00 2021-04-30 17:49:00 Hospital Encounter [facility] 1.840.114 350.1.13.10 4.2.7.2.686 [id number] [facility] 2021-04-22 10:03:00 2021-04-22 16:40:00 Anesthesia Event Alta Ma Rakesh [facility] 1.2.840.114 350.1.13.10 4.2.7.2.686 [id number] [facility] 2021-04-22 09:00:00 2021-04-22 15:30:[address] [facility] 1.2840.114 350.1.13.10 4.2.7.2.686 [id number] [facility] 2021-04-22 00:00:00 2021-04-22 00:00:00 Orders Only Doctor Unassigned, [place] [facility] 1.2840.114 350.1.13.10 4.2.7.2.686 [id number] [facility] 2021-04-15 08:43:00 2021-04-15 11:49:00 Outpatient R [facility] [id number] [facility] 2021-04-15 08:43:00 2021-04-15 11:49:00 Hospital Encounter Shaista Guerra [facility] 1.2840.114 350.1.13.10 4.2.7.2.686 [id number] [facility] 2021-04-15 09:45:00 2021-04-15 10:15:00 Surgery Shaista Guerra [facility] 1.2840.114 350.1.13.10 4.2.7.2.686 [id number] [facility] 2021-04-15 00:00:00 2021-04-15 00:00:00 Orders Only Doctor Unassigned, [place] [facility] 1.2840.114 350.1.13.10 4.2.7.2.686 [id number] [facility] 2021-04-13 13:00:00 2021-04-13 13:15:00 Laboratory Only Only, Adc Test Ludmila Ruiz [facility] 1.84.114 350.1.13.10 4.2.7.2.686 [id number] [facility] 2021-04-13 13:00:00 2021-04-13 13:00:00 [facility] [id number] [facility] 2021-04-06 00:00:00 2021-04-06 00:00:[address] [facility] 1.84.114 350.1.13.10 4.2.7.2.686 [id number] [facility] 2021-03-20 11:45:00 2021-03-20 13:07:24 Outpatient R LUDMILA RUIZ [facility] [id number] [facility] 2021-03-20 11:45:00 2021-03-20 13:07:24 Outpatient R LUDMILA RUIZ [facility] [id number] [facility] 2021-03-20 08:00:00 2021-03-20 09:14:53 Office Visit Shawntarun Edil [facility] 1.84.114 350.1.13.10 4.2.7.2.686 [id number] [facility] 2021-03-18 09:06:05 2021-03-18 23:59:00 Outpatient R LUDMILA RUIZ [facility] [id number] [facility] 2021-03-18 09:06:05 2021-03-18 23:59:00 Outpatient R LUDMILA RUIZ [facility] [id number] [facility] 2021-03-18 09:00:00 2021-03-18 23:59:00 Hospital Encounter Ludmila Ruiz [facility] 1.840.114 350.1.13.10 4.2.7.2.686 [id number] [facility] 2021-03-05 17:38:00 2021-03-05 22:52:00 Emergency X Milena OROPEZA [facility] ERT [id number] [facility] 2021-03-05 17:38:00 2021-03-05 22:52:00 Emergency Milena Oropeza No [facility] 1.2.840.114 350.1.13.10 4.2.7.2.686 [id number] [facility] 2021-02-24 00:00:00 2021-02-24 00:00:00 Telephone Ludmila Ruiz [facility] 1.2.840.114 350.1.13.10 4.2.7.2.686 [id number] [facility] 2021-02-20 00:00:00 2021-02-20 00:00:00 Patient Secure Msg Doctor Unassigned, [place] [facility] 1.2.840.114 350.1.13.10 4.2.7.2.686 [id number] [facility] 2021-02-19 00:00:00 2021-02-19 00:00:00 Transition of Care Devendra ArinaPaul [facility] 1.2.840.114 350.1.13.10 4.2.7.2.686 [id number] [facility] 2021-02-14 17:09:00 2021-02-18 16:05:00 Hospital Encounter Maryan Rojas Leah Elizabeth Cintron, [facility] 1.2.840.114 350.1.13.10 4.2.7.2.686 [id number] [facility] 2021-02-16 09:27:00 2021-02-16 10:27:00 Anesthesia Event Radha Holden [facility] 1.84.114 350.1.13.10 4.2.7.2.686 [id number] [facility] 2021-02-16 07:48:00 2021-02-16 08:50:00 Surgery Neil Mg-Jillian [facility] 1.84.114 350.1.13.10 4.2.7.2.686 [id number] [facility] 2021-02-13 10:45:00 2021-02-13 11:00:00 Office Visit Ludmila Ruiz [facility] 1.84.114 350.1.13.10 4.2.7.2.686 [id number] [facility] 2021-02-13 10:45:00 2021-02-13 10:45:00 Outpatient LUDMILA GIL [facility] [id number] [facility] 2021-02-13 10:45:00 2021-02-13 10:45:00 Outpatient LUDMILA GIL [facility] [id number] [facility] 2021-02-13 10:45:00 2021-02-13 10:45:00 Outpatient Raya RUIZ [facility] [id number] [facility] 2021-02-03 00:00:00 2021-02-03 00:00:00 Franklyn Dominguez [facility] 1..840.114 350.1.13.10 4.2.7.2.686 [id number] [facility] 2020-12-24 14:00:00 2020-12-24 15:03:38 Outpatient BALDEMAR DONOVAN [facility] [id number] [facility] 2020-12-24 14:00:00 2020-12-24 15:03:38 Outpatient BALDEMAR DONOVAN [facility] [id number] [facility] 2020-12-24 13:41:26 2020-12-24 15:03:38 Office Visit Baldemar Mejias [facility] 1.840.114 350.1.13.10 4.2.7.2.686 [id number] [facility] 2020-12-23 00:00:00 2020-12-23 00:00:00 Orders Only Doctor Unassigned, [place] [facility] 1.840.114 350.1.13.10 4.2.7.2.686 [id number] [facility] 2020-12-12 11:45:00 2020-12-12 11:45:00 Outpatient LUDMILA GIL [facility] [id number] [facility] 2020-12-12 11:45:00 2020-12-12 11:45:00 Outpatient LUDMILA GIL [facility] [id number] [facility] 2020-12-12 11:45:00 2020-12-12 11:45:00 Outpatient LUDMILA GIL [facility] [id number] [facility] 2020-12-12 11:45:00 2020-12-12 11:45:00 Outpatient LUDMILA GIL [facility] [id number] [facility] 2020-12-12 11:45:00 2020-12-12 11:45:00 Outpatient LUDMILA GIL [facility] [id number] [facility] 2020-12-12 11:13:07 2020-12-12 11:28:07 [facility] 1.840.114 350.1.13.10 4.2.7.2.686 [id number] [facility] 2020-12-09 11:21:50 2020-12-09 11:39:47 Office Visit Sewani, [facility] 1..840.114 350.1.13.10 4.2.7.2.686 [id number] [facility] 2020-12-09 11:00:00 2020-12-09 11:39:47 Outpatient Raya [facility] [id number] [facility] 2020-12-09 11:00:00 2020-12-09 11:39:47 Outpatient Raya [facility] [id number] [facility] 2020-12-09 00:00:00 2020-12-09 00:00:00 Orders Only Doctor Unassigned, [place] [facility] 1..840.114 350.1.13.10 4.2.7.2.686 [id number] [facility] 2020-12-05 11:30:00 2020-12-05 11:30:00 Outpatient LUDMILA GIL [facility] [id number] [facility] 2020-12-05 11:30:00 2020-12-05 11:30:00 Outpatient LUDMILA GIL [facility] [id number] [facility] 2020-12-03 00:00:00 2020-12-03 00:00:00 Telephone Ilana Alcala [facility] 1..840.114 350.1.13.10 4.2.7.2.686 [id number] [facility] 2020-11-28 11:00:00 2020-11-28 11:00:00 Outpatient LUDMILA G[facility] [id number] [facility] 2020-11-28 11:00:00 2020-11-28 11:00:00 Outpatient LUDMILA GIL [facility] [id number] [facility] 2020-11-28 00:00:00 2020-11-28 00:00:00 Telephone Ilana Alcala [facility] 1.2.840.114 350.1.13.10 4.2.7.2.686 [id number] [facility] 2020-11-25 15:45:00 2020-11-25 16:38:41 Outpatient R DAGOBERTO SHAW [facility] [id number] [facility] 2020-11-25 15:36:34 2020-11-25 16:38:41 Office Visit Colin Dagoberto [facility] 1.2.840.114 350.1.13.10 4.2.7.2.686 [id number] [facility] 2020-11-25 15:45:00 2020-11-25 15:45:00 Outpatient R DAGOBERTO SHAW [facility] [id number] [facility] 2020-11-25 00:00:00 2020-11-25 00:00:00 Orders Only Doctor Unassigned, [place] [facility] 1.2.840.114 350.1.13.10 4.2.7.2.686 [id number] [facility] 2020-11-25 00:00:00 2020-11-25 00:00:00 Orders Only Doctor Unassigned, [place] [facility] [id number] 350.1.13.10 4.2.7.2.686 [id number] [facility] 2020-11-24 00:00:00 2020-11-24 00:00:00 Telephone Ilana Alcala [facility] 1.2.840.114 350.1.13.10 4.2.7.2.686 [id number] [facility] 2020-11-11 11:30:00 2020-11-11 11:30:00 Outpatient R DAGOBERTO SHAW [facility] [id number] [facility] 2020-11-11 11:30:00 2020-11-11 11:30:00 Outpatient DAGOBERTO MONTEIRO [facility] [id number] [facility] 2020-11-07 00:00:00 2020-11-07 00:00:00 Orders Only Doctor Unassigned, [place] [facility] 1.2.840.114 350.1.13.10 4.2.7.2.686 [id number] [facility] 2020-10-07 15:02:00 2020-10-07 17:36:00 Emergency Amarilis Bergman [facility] 1.2.840.114 350.1.13.10 4.2.7.2.686 [id number] [facility] [facility] 2020-10-07 00:00:00 2020-10-07 00:00:00 Orders Only Doctor Unassigned, [place] [facility] 1.2.840.114 350.1.13.10 4.2.7.2.686 [id number] [facility] 2020-10-06 00:00:00 2020-10-06 00:00:00 Telephone Ludmila Ruiz [facility] 1.2.840.114 350.1.13.10 4.2.7.2.686 [id number] [facility] 2020-09-15 00:00:00 2020-09-15 00:00:00 Outpatient EDIL FENG [facility] [id number] [facility] 2020-09-09 11:15:00 2020-09-09 11:15:00 Outpatient PREMA CARDONA [facility] [id number] [facility] 2020-08-22 11:00:00 2020-08-22 11:56:10 Outpatient R LUDMILA RUIZ [facility] [id number] [facility] 2020-08-22 11:00:00 2020-08-22 11:00:00 Outpatient R LUDMILA RUIZ [facility] [id number] [facility] 2020-08-05 11:30:00 2020-08-05 11:30:00 Outpatient TRINIDAD JEROME [facility] [id number] [facility] 2020-07-22 10:00:00 2020-07-22 10:00:00 Outpatient TRINIDAD JEROME [facility] [id number] [facility] 2020-07-15 10:00:00 2020-07-15 10:00:00 Outpatient R PREMA MENDEZ [facility] [id number] [facility] 2020-07-15 10:00:00 2020-07-15 10:00:00 Outpatient R PREMA MENDEZ [facility] [id number] [facility] 2020-07-15 10:00:00 2020-07-15 10:00:00 Outpatient R [facility] [id number] [facility] 2020-07-09 10:00:00 2020-07-09 10:00:00 Outpatient R IRAIS BENSON [facility] [id number] [facility] 2020-07-08 10:00:00 2020-07-08 10:00:00 Outpatient R [facility] [id number] [facility] 2020-06-24 10:00:00 2020-06-24 10:00:00 Outpatient TRINIDAD JEROME [facility] [id number] [facility] 2020-06-17 11:00:00 2020-06-17 11:00:00 Outpatient R [facility] [id number] [facility] 2020-06-17 11:00:00 2020-06-17 11:00:00 Outpatient R EDIL FENG [facility] [id number] [facility] 2020-06-03 10:00:00 2020-06-03 10:00:00 Outpatient TRINIDAD JEROME [facility] [id number] [facility] 2020-04-18 14:37:00 2020-04-22 22:00:00 Outpatient X ILANA ALCALA [facility] [id number] [facility] 2020-03-18 14:40:00 2020-03-18 14:40:00 Outpatient R [facility] [id number] [facility] 2020-03-14 09:20:00 2020-03-14 09:20:00 Outpatient FRANKLYN MILLS HOWARD [facility] [id number] [facility] 2020-01-29 08:00:00 2020-01-29 08:00:00 Outpatient R [facility] [id number] [facility] 2020-01-15 10:00:00 2020-01-15 10:00:00 Outpatient R [facility] [id number] [facility] 2020-01-10 16:52:00 2020-01-13 20:15:00 Outpatient X PERNELLPRATIKBEATRIS [facility] [id number] [facility] 2020-01-10 15:30:00 2020-01-10 15:30:00 Outpatient R ANNEMARIE EDGAR [facility] [id number] [facility] 2020-01-09 10:20:00 2020-01-09 10:20:00 Outpatient R IRAIS BENSON [facility] [id number] [facility] 2020-01-01 15:30:00 2020-01-01 15:30:00 Outpatient R ANNEMARIE EDGAR [facility] [id number] [facility] 2019-11-22 14:00:00 2019-11-22 14:00:00 Outpatient R ANNEMARIE EDGAR [facility] [id number] [facility] 2019-11-15 15:45:00 2019-11-15 15:45:00 Outpatient R TYLER BASS [facility] [id number] [facility] 2019-11-01 15:00:00 2019-11-01 15:00:00 Outpatient R ANNEMARIE EDGAR [facility] [id number] [facility] 2019-10-30 15:00:00 2019-10-30 15:00:00 Outpatient R ANNEMARIE EDGAR [facility] [id number] [facility] 2019-10-18 15:00:00 2019-10-18 15:00:00 Outpatient R LUDMILA MERLOS [facility] [id number] [facility] 2019-07-04 13:20:00 2019-07-04 13:20:00 Outpatient R IRAIS BENSON [facility] [id number] [facility] 2019-06-29 09:45:00 2019-06-29 09:45:00 Outpatient R [facility] [id number] [facility] 2019-06-20 09:00:00 2019-06-20 09:00:00 Outpatient R LUDMILA MERLOS [facility] [id number] [facility] 2019-04-30 10:00:00 2019-04-30 10:00:00 Outpatient R RADHA MCINTOSH [facility] [id number] [facility] 2019-03-01 20:00:00 2019-03-01 20:00:00 Outpatient R CAR HIDALGO STRAHIL [facility] [id number] [facility] 2019-01-15 09:33:47 2019-01-15 23:59:00 Outpatient R RADHA MCINTOSH [facility] [id number] [facility] 2019-01-15 09:33:47 2019-01-15 23:59:00 Outpatient R RADHA MCINTOSH [facility] [id number] [facility] Notes Date/Time Note Provider Source 2023-05-26 09:31:57 EQ9mLAn8tlyJQFyP742EnrhHiDoLSjh qEm6wIEFGImshEN04UIEdJ7le32QerT x82035-14-82G56:31:57 Patient has been scheduled. Thank you. 34790-9Xvvtbynmw encounter WdsuSL9815-46-20D45:32:18Teleph one encounter NoteTXT1.2.840.276408.1.13.104. 2.7.2.361857|[id number] ble for patient zjxs13567-2ZfwsRFYNXVGZSQTXfztb tted C-CDA narrative [id number] [address] 74143GUQIPVCTGOQYDXYRIXPROM2974 -04-18T09:32:181.2.840.930951.1 .72.3.15|1.2.840.515881.1.13.10 4.2.7.2.727879_[id number] Jacquiesylvia Jones [facility] 2023-05-26 08:49:45 fICoM7bUOskg15ISeomc9X2NW8ALXgk XK8QzcK859aICduCgXDH1DcDLX6yyqM tx0789-36-52W97:49:45 [facility]ied from [facility] #[id number]. 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 2.7.2.820305|[id number] ble for patient axfp02211-6LsigMNVOPNAGHLFWxpky tted C-CDA narrative aaaf615434458Cvtz C Garcia[address] 85330MDWVDSKUCQLVCDCHELAQGN7494 -04-18T08:51:461.2.840.837863.1 .72.3.15|1.2.840.627256.1.13.10 4.2.7.2.727879_[id number] Lucy Milian [facility] 2023-05-17 19:07:26 xxOOBju4ApWicmI7wTMrOuQuq0J9RML kTHcpxf0EyORUhQ0Jbh0glIj+brSJvB jM4265-81-52L80:07:26 Please provide a date for surgery to the patient and a preop appointment. Thanks 51915-9Kacqptofh encounter BdstGJ7804-57-70M88:07:46Teleph one encounter NoteTXT1.2.840.772099.1.13.104. 2.7.2.398941|[id number] [facility] ecyy17765-1HodvYTQIKUQLHCAFsmdf tted C-CDA narrative textSUR-PLASTIC AND RECONSTRUCTIVE SURGERY STAFFSUR-PLASTIC AND RECONSTRUCTIVE SURGERY STAFF[address] OfhfPpypuhfoxFywxxaaloDZVO02727 29064IWJUXCXCKXFFQMYPZBXSXV5805 -04-09T19:07:461.2.840.700357.1 .72.3.15|1.2.840.914613.1.13.10 4.2.7.2.727879_[id number] AMARI-PLASTIC AND RECONSTRUCTIVE SURGERY STAFF [facility] 2023-05-17 11:52:53 +R+yjmffHt6cHxtPb/W/QG1Rz1BE eadfUAcNQnSlpXNfFFnHxsJY97So2mC VH1583-84-75R46:52:53 I spoke with the patient and she accepted the surgery date of 07/07/23. I scheduled her pre-op on 06/07/23, she will bring her garment.Moira 10436-4Ndtljpxrr encounter IfdpNE5055-00-27X24:53:42Teleph one encounter NoteTXT1.2.840.093251.1.13.104. 2.7.2.176073|[id number] ble for patient edpr26874-3AxcdWORWFLAALVKYnxgr tted C-CDA narrative [id number] A [address] LpglBsdzraqkjUdcafrkekLLRR51834 61590XIVQWCFQSIPCZVXJQUOVXN2559 -04-09T11:53:421.2.840.029556.1 .72.3.15|1.2.840.604741.1.13.10 4.2.7.2.727879_[id number] Moira Puri [facility] 2023-05-12 08:24:24 OqIE1whptYIBD8hdzNrbxo5vbWUYCsY 3F6+wlG7d0zOsJeiS4XIKADyMM4SuRB ig5116-68-22S53:24:24 I do not see records from her Pain management team; we will need to coordinate her post-op pain care. Quynh, please contact pt to remind her that we need to know what that physician wants to do about her post-op care.She will need to stop her ASA 1 week ahead and p-op, and her Plaquenil 6 weeks pre- and p-op.We can offer her a date. We need to place an [facility] consult, and we will need a rep to assist with her pacemaker, as she will need to have a magnet placed DOS.Quynh, please help uscoordinate all of this.Moira, please make her pre-op appt 1 mo ahead as I am concerned about all of her comorbidities and the recent rash she had. 24872-8Cmusqvblx encounter LtqvRU6875-66-04N02:30:49Teleph one encounter NoteTXT1.2.840.180905.1.13.104. 2.7.2.832476|[id number] ble for patient mlbq73144-8SuadNMVHPRQMHBHEyxdj tted C-CDA narrative textSUR-PLASTIC AND RECONSTRUCTIVE SURGERY STAFFSUR-PLASTIC AND RECONSTRUCTIVE SURGERY [address] 09006EKBTIURPPXJEJTRRSOJXOP4470 -04-04T08:30:491.2.840.558218.1 .72.3.15|1.2.840.097879.1.13.10 4.2.7.2.727879_[id number] AMARI-PLASTIC AND RECONSTRUCTIVE SURGERY [facility] 2023-05-10 15:02:15 6sT75eQeckokOuyR6omPK3Y3xMd1hBQ v7nu3QtqarMlPcBNuX8S/10Q5dkCPn/ VF7344-78-29R87:02:15 Following up. Please call the patient for scheduling. 15275-4Crjuqehdw encounter AkzpJJ8625-07-05A58:07:58Teleph one encounter NoteTXT1.2.840.350587.1.13.104. 2.7.2.766770|[id number] ble for patient qlxe56860-4MtsbLHDXJQBAVBWMuiwr tted C-CDA narrative mbwq219118332Ttzof Rodriguez[address] StreetTX[place] 33741PNZLFCPLRVHJKBVTVNYSCZ4735 -04-02T15:07:581.2.840.181076.1 .72.3.15|1.2.840.794214.1.13.10 4.2.7.2.727879_[id number] Jena Dinero [facility] 2023-04-28 07:47:14 vTpcrWDiDREfLRmwrRqHkLsCmHob76g AV32wxOG2AGuSKumk5Rv3IQqGU45l62 No2013-24-56W06:47:14 Lazaro Ray is a 62 year old femaleThe patient wants to proceed with surgery, does the patient need to do anything prior to scheduling? 61462-9Xwmnhgxjd encounter DlpnXV1885-76-95Z63:48:00Teleph one encounter NoteTXT1.2.840.451506.1.13.104. 2.7.2.942394|[id number] ble for patient yjum44290-4IdmxVKNLXFDPCSUJikex tted C-CDA narrative textUT[address] IayaFhgbfjrhrMrupzphjdFZTQ65627 15291SLDEXRUIFHSYQPERRPMUPA6902 -03-21T07:48:001.2.840.380839.1 .72.3.15|1.2.840.188049.1.13.10 4.2.7.2.727879_[id number] [facility] 2023-04-28 07:42:17 18gplQxqKhSGH1mzQd9WN6D1jP7KhTh OZ1C172qlpzmFAXOqLta1+HEUvSULDR 0o5173-60-40Q03:42:17 Images from the original note were not included.Lazaro Ray is a 62 year old femaleReceived APPROVAL fax from [facility] for [facility] following:CPT Codes: 93343, 43063Voqcvfais Dates: 05/23/2023 - 08/21/2023uthorization #: [id number] signed by Jena Dinero at 04/28/2023 7:48 AM DTC59104-1Slgyoocra encounter DndkTX1286-88-35Y15:48:00Teleph one encounter NoteTXT1.2.840.589281.1.13.104. 2.7.2.448654|[id number] ble for patient ucex81927-1XiaaXEEZPABSZENGuvbs tted C-CDA narrative text[address] StreetTXTX[address] 13040QXXOYPDFEAIHIJWYWFMPGP2024 -03-21T07:48:001.2.840.751865.1 .72.3.15|1.2.840.288769.1.13.10 4.2.7.2.727879_[id number] [facility] 2023-04-26 10:23:05 4dZFWQHCkTG5fi/eqGDNxRcZBkEJfDG ZALUo+yQTp/v7vEn+4uLei8ao7MYFl4 CT1553-03-81K34:23:05 Images from the original note were not included.Lazaro Ray is a 62 year old femalePre-determination has been SUBMITTED to [facility] for the following:CPT Codes: 90933, 13597Xirqcf Authorization #: [id number] signed by Jena Dinero at 04/26/2023 10:25 AM WBT23259-6Eqllorhrc encounter OhpdSC0000-76-62X12:25:38Teleph one encounter NoteTXT1.2.840.805008.1.13.104. 2.7.2.233999|[id number] ble for patient ypsk05998-5YhrjSKSIOLUKIXFAncsn tted C-CDA narrative rbdh923812970Fjbru Rodriguez[address] 34006MBIEJSBQSQFVNPOQVHQSNF6575 -03-19T10:25:381.2.840.622186.1 .72.3.15|1.2.840.632099.1.13.10 4.2.7.2.727879_[id number] Jena Dinero [facility] 2023-03-03 10:22:42 ruL1BXA7MfrJJoABAV5HJB6b5U2pCUX 1X2qbmNQwaQxNv/cAyPPfSmq8OMBYi6 oX9769-19-70Z85:22:42 Duplicate encounter, closing 99191-3Zcswwfoni encounter UdntSK7845-35-31K01:22:59Teleph one encounter NoteTXT1.2.840.083799.1.13.104. 2.7.2.086487|[id number] ble for patient qimt07715-6VqerNUWSOEQWSSFJdxwd tted C-CDA narrative vtik224551835Solojlsr Trepagnier [address] BrwmNumhayoniNqfuutpbxTSVQ07082 14868ZEWBJEJQONLUKGDBQZJJJJ1501 -01-25T10:22:591.2.840.629440.1 .72.3.15|1.2.840.199776.1.13.10 4.2.7.2.727879_[id number] Yamilet Coombs MA [facility] 2023-03-01 08:51:14 AGVo5+6SB6Ie9ZBGkTKlMdqiZryAIG6 3T7ahJeZBsVWnmJ1WbTTUx/6cj/bNRq TA4472-49-83A63:51:14 Pt needs to be seen in OV with me to coordinate her complex needs. Dr. Benson approves bridging from ASA to Eliquis; Rheumatology has approved holding Plaquenil. I need to hear about her p-op resources as she states she plans to stay in a Nursing facility of some kind, which doesn't always provide transportation for her OVs. She will need an [facility] referral if we plan to go ahead and we need to coordinate her pain management (Cristal please help us with that) if we proceed with surgery. AND she will need an extension on her approval. 93007-4Aiebmdtbx encounter XffcSV5956-52-70Q61:54:51Teleph one encounter NoteTXT1.2.840.190925.1.13.104. 2.7.2.467359|[id number] ble for patient nzko05354-0MdebZJRDMJCVVNBYwkwe tted C-CDA narrative textSUR-PLASTIC AND RECONSTRUCTIVE SURGERY STAFFSUR-PLASTIC AND RECONSTRUCTIVE SURGERY STAFF[address] 78628TBFSBMKWQAWKQNCKOKIZSD6486 -01-23T08:54:511.2.840.428767.1 .72.3.15|1.2.840.414401.1.13.10 4.2.7.2.727879_[id number] AMARI-PLASTIC AND RECONSTRUCTIVE SURGERY STAFF [facility] 2023-02-24 08:42:32 T0UpGkJizTBWxUsCerj+6aJ5tstM/DP RTTq4HDG78at+yLqYhZ//CTp/omGmYT Fp5802-71-59D93:42:32 Encounter closed 49890-1Oyqdsglhr encounter AywaSC3504-39-18D96:42:49Teleph one encounter NoteTXT1.2.840.290194.1.13.104. 2.7.2.499772|[id number] ble for patient jbkg73343-4HcsrLHVHQLPVNEDOfenz tted C-CDA narrative xjqv608683882Uvenn A Roller RN[address] 14386MJVANDAESXSXCOGGZXQSTO7331 -01-18T08:42:491.2.840.321459.1 .72.3.15|1.2.840.511889.1.13.10 4.2.7.2.727879_[id number] Amna Wolf RN [facility] 2023-02-24 08:35:20 Yg0NXlJ6yyBXnrcFqtt5knkVNW08yQY oKJoKN0lxIGevVyXWVASs97SttqO9Q8 Qy3706-98-19C09:35:20 Will do, thank you!Moira, we can offer the patient a surgical date.Cristal, please submit an email to [facility] so they have an opportunity to review her records pre-op. Thanks! 00652-1Ufzqwuenf encounter RixrGW0015-46-73L74:36:40Teleph one encounter NoteTXT1.2.840.861287.1.13.104. 2.7.2.461666|[id number] ble for patient iwcz15716-2FgxsCZJFTDSUDEZUmumu tted C-CDA narrative textSUR-PLASTIC AND RECONSTRUCTIVE SURGERY STAFFSUR-PLASTIC AND RECONSTRUCTIVE SURGERY STAFF[address] 21123GZDJZVMFSBQVOTGIYFTAXO2236 -01-18T08:36:401.2.840.817753.1 .72.3.15|1.2.840.883307.1.13.10 4.2.7.2.727879_[id number] AMARI-PLASTIC AND RECONSTRUCTIVE SURGERY STAFF [facility] 2023-02-24 08:15:26 ZqaGX+BxJOU7I77MurNzkYHW8Ks2356 +6MObwAwuUHOxaYvtntfubcCsTFihcx r/1891-02-36V75:15:26 Dr. Soto,Yes, please follow your protocol as outlined. 85997-2Eegkgivwr encounter EqyjRI7478-35-36Y28:16:17Teleph one encounter NoteTXT1.2.840.345824.1.13.104. 2.7.2.809834|[id number] ble for patient jnwp84596-7LfixGEXACUTAONWOmppd tted C-CDA narrative textUT[address] MzmoAouuueghvZvdzyjfmpWGLY9[address] 28940NBNMKKEXUDKFRXYHQOSCOJ1104 -01-18T08:16:171.2.840.668370.1 .72.3.15|1.2.840.514879.1.13.10 4.2.7.2.727879_[id number] [facility] 2023-02-24 07:48:48 cTjrEAeyOEBnd4wFyg6TsC6zBVJaqXB 0nMhk2Uu+/Y6ng6vIEIeJFFNJsl9wMM [place]9264-97-91R81:48:48 Thank you, Dr. Benson. Would you be amenable to stopping her daily ASA 1 week prior until one week after, or after we complete the anticoagulation I use for 10 - 30 days p-op? We could bridge her w Eliquis, holding the dose the night before, AM & PM dose day of surgery, resuming Eliquis the day after her procedure?Wanda Soto 88734-1Lsvuuxdna encounter FwafWY1958U53:51:16Teleph one encounter NoteTXT1.2.840.534105.1.13.104. 2.7.2.784719|[id number] ble for patient wgxq33220-6MstbYJLSJAAWOQGPhwlh tted C-CDA narrative [address] 25395WZLLVPTZXYSWKBXEUPINWL6372 -01-18T07:51:161.2.840.571961.1 .72.3.15|1.2.840.961701.1.13.10 4.2.7.2.727879_[id number] [facility] 2023-02-23 21:06:10 YQeQ7XXz0EWAWyqKxeRvdKWIQbo6awa mv1dH3lPcYKZwCpC9ngjLBw43ZdPTJO wu4047-80-00T29:06:10 Ok to proceed with surgery. Moderate cardiac risk. 49593-1Swlqafjoj encounter UeniWR1856-53-61K20:06:41Teleph one encounter NoteTXT1.2.840.118161.1.13.104. 2.7.2.988340|[id number] ble for patient qklj84630-1XhmaXZZXQPILSJXWzvlz tted C-CDA narrative [address] 44207YJDLDWFCHIZNNBXSMMYYSW5211 -01-17T21:06:411.2.840.821561.1 .72.3.15|1.2.840.579245.1.13.10 4.2.7.2.727879_[id number] [facility] 2023-02-23 14:55:43 YMjq3F8H+w/Y+2ymOI83QvSsUddZ6uS L2uI/4+zy/7l8yuwydvRQcB4fpCJSCb GW5424-80-34T04:55:43 Received preop clearance and anticoagulation guidance request for Plastic surgery from Dr Soto.Medical clearance form placed in nurse basket at [facility]. Turn around time for forms is typically 5-7 business days. Once completed will be faxed to the requesting office.KRYSTIAN: 3Device clinic OV: 02/17/23Anticoagulation: PlavixDate of last echocardiogram: 04/23/21Date of last stress test: noneDate of last EK01/13/23Per patientDr Soto focused on the the verbiage:telling patient that she must:"Patient was counseled for lifestyle modifications including: diet, exercise and weight loss." 34187-3Srbhmlfxh encounter GoipHY6836-47-81D97:05:23Teleph one encounter NoteTXT1.2.840.850891.1.13.104. 2.7.2.672028|[id number] ble for patient wdxc15399-9GbgeHAVPYAUPKFUUxkwe tted C-CDA narrative textUT[address] GaezCnendgdwrWclxutxgpGERX90528 06113MUKMVSPAOXQYZSDQGNJFCZ3140 -01-17T15:05:231.2.840.984720.1 .72.3.15|1.2.840.879960.1.13.10 4.2.7.2.727879_[id number] [facility] 2023-02-23 14:46:35 aMrAkktZJWh+zO0QGvnvnoJatfcu8VD hMb5zS0sBNyPjedbHy5ryYB02yBARyw 417061-72-96J70:46:35 Received preop clearance and anticoagulation guidance request for Plastic surgery . Medical clearance form placed in nurse basket at [place] location. Turn around time for forms is typically 5-7 business days. Once completed will be faxed to the requesting office.KRYSTIAN: 01/13/23Device clinic OV: 02/17/23Anticoagulation: plavixDate of last echocardiogram:04/23/21Date of last stress test:noneDate of last EK01/13/23 28250-3Khspedmol encounter FiskRF2356-18-94X16:51:35Teleph one encounter NoteTXT1.2.840.585308.1.13.104. 2.7.2.064545|0021194892LSZvvoma [facility] leuo63103-8SjrrSGAWMXIJZXSTfbbl tted C-CDA narrative xqgv231879690Bhyyb A Roller RN[address] LvtrNydgnchwnKpusblbebCDHJ76953 54866APASYBEGFXULLWXKTFXLWR8589 -01-17T14:51:351.2.840.081398.1 .72.3.15|1.2.840.117880.1.13.10 4.2.7.2.727879_[id number] Amna Wolf RN [facility] 2023-02-04 16:10:28 sw7KIZDO4dD7xRdO7tQOCYk02hJdq/o PcSVw4jBILyL5SMvv5SEivs2wnR8b9X RD0199-12-78F54:10:28 Tevin Rodriguez,I spoke with Daya from the device clinic and was able to get you in on 02/17/23 at 2:30pmAt the [facility] [address] [place] [address] [facility] 85435Bpcnv [phone]. [phone] will give the doctors plenty of time to get you ready for your surgery.I also left you a voice message on your phone. Please let us know that you have received this message.Thank you for using [facility] to manage your healthcare needs,Sincerely,AMNA WOLF RN 02/04/2023 4:14 PM 42661-8Fzyxoetcu encounter CrcyDR0408-94-95D22:16:17Teleph one encounter NoteTXT1.2.840.215013.1.13.104. 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 Pre-D submission hinged on that and has NOT happened as pt is not cleared and was in fact told to lose weight. 81563-8Tcojzqytc encounter RnpwWF5233-57-07Z69:54:41Teleph one encounter NoteTXT1.2.840.532211.1.13.104. 2.7.2.204523|[id number] ble for patient swyb24587-5SwfvGFDOZXIXHHYYtoio tted C-CDA narrative textSUR-PLASTIC AND RECONSTRUCTIVE SURGERY STAFFSUR-PLASTIC AND RECONSTRUCTIVE SURGERY STAFF[address] 32787VGPHXRXCDRCOVJZLYJGGBB4975 -12-21T16:54:411.2.840.621480.1 .72.3.15|1.2.840.558553.1.13.10 4.2.7.2.727879_[id number] [facility]-PLASTIC AND RECONSTRUCTIVE SURGERY STAFF [facility] 2023-01-27 16:31:17 4vzsreUGCCtFJRT9hHP3srMpTz2CQDo CqesheKxmJHDZmuJCUf7+E2cYw60Slr lw1318-59-79H55:31:17 Patient would like to get surgery schedule. Please advise on date. 88123-8Dunstegmd encounter VopyFE8851-80-92R52:31:40Teleph one encounter NoteTXT1.2.840.062396.1.13.104. 2.7.2.716894|[id number] ble for patient pxsl95703-9HgdnILTTMVQQMHIXifcp tted C-CDA narrative [id number] W Branham RN[address] StmnFereomeogIqrawgewkPTZK34618 83807PPGJFNPIVVHVCNRPJSUSRH8473 -12-21T16:31:401.2.840.740279.1 .72.3.15|1.2.840.344821.1.13.10 4.2.7.2.727879_[id number] Quynh Baer RN [facility] 2022-10-19 11:16:42 4KHAWyTD6RHgH5MYieCpOnf3OyhArNe +ZeM5LQ0DGt2FyQ6IGvRm0F4Q8ZOJRu Ba7047-21-34X74:16:42 Patient has been scheduled with MONALISA Ontiveros for 10/26/2022 at 11 AM. 78814-4Mvcnumcjj encounter JakvGN6288-00-58C93:17:15Teleph one encounter NoteTXT1.2.840.077637.1.13.104. 2.7.2.566409|[id number] ble for patient wesv20776-7TcyyMR333233064Cnxik a M Thorsen [address] 81135WWOMIQIDSZMRYLTWQAHVRE1949 -09-12T11:17:151.2.840.497700.1 .72.3.15|1.2.840.701878.1.13.10 4.2.7.2.727879_[id number] Chandler Neff [facility] 2022-10-18 17:27:51 4GOr4OeKZSKjOelpCoU3tiHi3luSiEz ZWpjdNsRus7F5p8FoAQhU9aCDoSkH+x le0492-57-65Z36:27:51 Called patient and discussed peeling with patient, that it is to be expected as part of the healing process. Patient noted the clobetasol helped the itching, but the peeling started several days afterwards and and was painful. Patient to call the clinic with any further questions. 42256-8Aoerdmzqn encounter RogeSF5656-30-05Y79:29:20Teleph one encounter NoteTXT1.2.840.246771.1.13.104. 2.7.2.294687|[id number] ble for patient ttxy60838-3VaanVVUPN-ZBUAMMSLWT YDER-DERMATOLOGY[address] 85649JUWTDNXQKCAJOCIOUPKOCZ7768 -09-11T17:29:201.2.840.163273.1 .72.3.15|1.2.840.690993.1.13.10 4.2.7.2.727879_[id number] KIZZY-DERMATOLOGY [facility] 2022-10-18 12:51:13 hM2/UVXJp9kr/HqM7zijEJUueaUduEX ZV9ozWQaYc1zSkejV9Ez/OyD5HE8Prf 7v6425-75-78T15:51:13 That is to be expected as the rash heals and may last up to 2 weeks. Continue w topicals. 86983-5Fextuwmav encounter WuboRY3120-32-30L59:51:40Teleph one encounter NoteTXT1.2.840.089337.1.13.104. 2.7.2.370455|[id number] ble for patient ndgi54593-2SmmfKOQPM-PZAJXZFQQK Y STAFFDER-DERMATOLOGY STAFF[address] ItpaRbtvuqxzzKnfcejriuPACX[address] 81816VOZXSDXBLFWMGWHJMFMXKJ2690 -09-11T12:51:401.2.840.257073.1 .72.3.15|1.2.840.677813.1.13.10 4.2.7.2.727879_[id number] [facility]-DERMATOLOGY STAFF [facility] 2022-10-18 10:34:17 grAsirNyTDAVKZaM9J9STEipCFBlMyL OBIgcTfclR/Ottc2kEBz3XkFLFc8Uhk 5Z3384-45-64A52:34:17 Routing to provider and notified patient via 81867-5Mqglazntw encounter QeadTJ7539-18-89K89:34:49Teleph one encounter NoteTXT1.2.840.141002.1.13.104. 2.7.2.925151|[id number] ble for patient svan33409-9VkoiHB867655804Heexm da Adkins [address] 86433LPNZGAOKFGTXZWBFOHWFNK8101 -09-11T10:34:491.2.840.439847.1 .72.3.15|1.2.840.128365.1.13.10 4.2.7.2.727879_[id number] Sierra Foss [facility] 2022-10-18 09:49:36 sqEI0v5+zOQ7FTtIXon59PyA3fIiwsM hAVCbXEeJn2wDTL1Gt9+fp6TEI/WyQH Iq8145-67-09C86:49:36 COLTON called patient and LVM for patient to call back to schedule a follow up with MONALISA Ontiveros per provider request. 14306-7Yyqblqrmt encounter QddwXK8920-73-38L56:50:15Teleph one encounter NoteTXT1.2.840.692958.1.13.104. 2.7.2.562395|[id number] ble for patient bflw85943-2NqyaDPKOEFLVBG[address]TX[address] 01126GCISXUDXGBWCAAQVAPZKQU9993 -09-11T09:50:151.2.840.983935.1 .72.3.15|1.2.840.498028.1.13.10 4.2.7.2.727879_[id number] [facility] 2022-10-18 08:20:22 apQqNMQ6x7g9OkJt6BGZWSsmG9bfiK3 UTplOXOt1LVAeKcBWhO6K9WwJEtSHoq ks7350-01-44U53:20:22 I reviewed her note from Dermatology. We [...] full coverage over the surgical sites, etc. 87738-4Sfoutegtx encounter DzziHF8107-67-57X14:24:01Teleph one encounter NoteTXT1.2.840.121470.1.13.104. 2.7.2.825681|[id number] [facility] tuin08168-6JytlQJJUF-BZYQLUW AND RECONSTRUCTIVE SURGERY STAFFSUR-PLASTIC AND RECONSTRUCTIVE SURGERY STAFF[address] IfwdFihumwljfSvlskldvoOXDR06263 40512CCMGAFGCSPFDDOPUSTIRHE0194 -09-11T08:24:011.2.840.244763.1 .72.3.15|1.2.840.236157.1.13.10 4.2.7.2.727879_[id number] [facility]-PLASTIC AND RECONSTRUCTIVE SURGERY STAFF [facility] 2022-10-14 15:19:16 9pIbLZ3SzknuL/WSxEth8VkZ5GcSzO/ 5tig1y/Ed7Iwt0BJTdqXNvy7ce4+kW7 zf7029-26-69M25:19:16 Routing to to see if a clearance letter is recommended. 51960-7Bmhrpnqvq encounter QbeqCJ8524-68-76K66:21:20Teleph one encounter NoteTXT1.2.840.253045.1.13.104. 2.7.2.363544|[id number] ble for patient cpwq49972-7KnguWAULBKBQAU[address] 54450TRRAPOMXSCTDVDKNIENLWY5506 -09-07T15:21:201.2.840.056735.1 .72.3.15|1.2.840.713100.1.13.10 4.2.7.2.727879_[id number] [facility] 2022-10-14 11:41:12 yPgW+mg4WNv7wJYtbBVxKO3sxLp5Qu1 rdaH9IrmLl58WEFgh9f5KZwiRblbkPv eQ9020-17-00Q01:41:12 Lazaro Ray is a 61 year old femalePatient states feet are peeling and she has been using rx given to her for bleeding vesicles. Last night patient found spot on foot and this morning her feet on peeling and she doesn't know if this is supposed to be happening or if something is wrong. Please advise. 22141-1Folsvlsdg encounter VagdMT3180-55-31S09:43:15Teleph one encounter NoteTXT1.2.840.143601.1.13.104. 2.7.2.421412|[id number] ble for patient fobe20121-9ZnrrOJ5956017Plydh E Howard[address]TX[address] 89849RUGRSYDWMSNLKFQULWOWXL9695 -09-07T11:43:151.2.840.147915.1 .72.3.15|1.2.840.783895.1.13.10 4.2.7.2.727879_[id number] Birgit Estes [facility] 2022-10-07 11:07:07 7yGHWKdcdBpky9737Qc2gcP8QJ+1dUl kokr+EDM0MsALlTQ0ImbpmRUc9orim0 ls5992-46-56G39:07:07 Patient was seen in clinic today. 72651-8Yozxefzmq encounter ScyqBC2814-72-82P30:07:17Teleph one encounter NoteTXT1.2.840.829519.1.13.104. 2.7.2.612362|[id number] ble for patient xkza29217-3RsvoTP322204058Kvanb da Adkins [address] BiijCmouuetngRhwmmojebMWUE49173 66656SNOLTPZZUBWFQGPQVMNLFC8744 -08-31T11:07:171.2.840.635383.1 .72.3.15|1.2.840.938220.1.13.10 4.2.7.2.727879_[id number] [facility] 11:00:00 ++ELElrtkWrFunO+KeAIl14a3Y/0GT1 mzX3wuV1CgK2NteNOGTi93B6xd1C9d8 ss3786-06-47V82:00:00 Images from the original note were not included.Venipuncture collection performed by clean technique on the left anticubitus. Total of 2 attempts were made. Slight pressure and a bandage/dressing were applied to the site(s). The patient experienced no complications. The following specimens were processed according to instructions and sent to [facility] laboratories per lab order on 10/07/2022: LT BLUE SST 5 RED LAV 2 PPT 1 DK GREEN (LiHep) DK GREEN (SodH) IRWIN DK BLUE (K2) DK BLUE (S) ACD Blood Culture NIPT/NTD 50594-0Gtzys ZxxkJH3212-84-36O56:35:54Nurse NoteTXT1.2.840.570924.1.13.104. 2.7.2.186776|[id number] ble for patient mksp65758-4Kdwol Note[address]TXTX[address] 61095ZEAOEIPTWRPSNUQGTJYUPN3149 -08-31T11:35:541.2.840.287468.1 .72.3.15|1.2.840.408951.1.13.10 4.2.7.2.727879_[id number] [facility] 2022-10-06 12:24:03 KEz0dJJoVLjnGmvYpnEfQ9NWbQmQQh4 GpZeoihJdw9cmTtuVpbZZJmog1cdQTR HD2952-53-56T76:24:03 Let her know to keep appt. Would still like to evaluate her rash in person 00019-1Frfarrcbn encounter YevoQS7572-09-97K87:24:03Teleph one encounter NoteTXT1.2.840.464762.1.13.104. 2.7.2.364812|[id number] ble for patient xhar00773-5ZlbuEWRQL-GMGWETPFOZ Y STAFFDER-DERMATOLOGY STAFF[address] 53271OWQZGAUWVVOWAYALDBDNQU5803 -08-30T12:24:031.2.840.679406.1 .72.3.15|1.2.840.598667.1.13.10 4.2.7.2.727879_[id number] KIZZY-DERMATOLOGY STAFF [facility] 2022-10-06 10:08:41 u71ZM/5/r0HjjaB9PcuO+dzxnw9otiL Pw02j553kmoSkJ3HG1fGEsCFrsqbQ5F Qm4900-07-48E11:08:41 Lazaro Ray is a 61 year old female.Patient is calling because she has an appointment for tomorrow (10/07) but wants to clarify if she will be able to go.She states that after her appointment on 09/16, she was supposed to get labs completed; however, she was not able to get them done. She states that her nurse at the custodial would be able to complete the labs, because she had labs done a few days prior to appointment and would just use the blood already taken. She said that then the results would be sent to Dr. Mera but they were not sent. She wants to know if she will still be able to go to appointment. [phone] (home) .Thank you. 44570-3Bjkhtaviw encounter RqztTJ4457-45-54R14:19:59Teleph one encounter NoteTXT1.2.840.071070.1.13.104. 2.7.2.056216|[id number] [facility] zaky52427-9MctgGR699458615Plump ca Z Kluksdah[address] RmggOuaczupshTwtkmwvxqHZII31822 74203VZPBYXIWSSFECALMSBDBWT4678 -08-30T10:19:591.2.840.181050.1 .72.3.15|1.2.840.465996.1.13.10 4.2.7.2.727879_[id number] Lilian House [facility] 2022-09-21 13:02:55 F+RbKvaacJGYo3b2qJj3REmR2IsJeUl 9pbKAhEHvD3ocn4StxBSfhrNmU6nmN7 hG4327-55-86G67:02:55 message asking patient to provide fax number to the facility she is staying at for lab orders to be sent. 61689-5Hrsnfhmwe encounter EcimLJ1091-37-57I77:03:22Teleph one encounter NoteTXT1.2.840.480870.1.13.104. 2.7.2.669730|[id number] ble for patient cuut10275-7LyuaFI697237962Cbdea da Adkins [address] WkqeOzckbvtjoDoasjigzeHVIW42250 70732XQTUAIOXOLAYPHDYVATQLX6790 -08-15T13:03:221.2.840.996482.1 .72.3.15|1.2.840.228322.1.13.10 4.2.7.2.727879_[id number] Sierra Foss [facility] 2022-09-17 15:58:19 aJnx1+nurXerDWYnx4MTb4Ls2ppyTy1 O3XKjhStdJbfASS4bLiIBr0yxXc8lwl 8J0017-94-95S69:58:19 Lazaro Ray is a 61 year old femalePt was seen in clinic 09/16/22 and left without doing her labs. Pt is in custodial and would like to see if orders can be sent there so they can do her lab and send over results.Please advise [phone] (home) 33024-9Qqtjodvch encounter SignDP1618-17-79T77:00:32Teleph one encounter NoteTXT1.2.840.192120.1.13.104. 2.7.2.081254|[id number] ble for patient jryd09676-7KijeUD870194919Zwidm Mend[address] 01980WFZAFYFRJQHANOPDHTGNDV3929 -08-11T16:00:321.2.840.537261.1 .72.3.15|1.2.840.281294.1.13.10 4.2.7.2.727879_[id number] Shantell Bejarano [facility] 2022-09-10 14:11:33 rGjwFIjs6Z6bIbLt66zUQnN0Lq//v4R dtJO+FfZw5w/cb897hG1RT+eYXSCMRG Jg1362-37-62W34:11:33 Images from the original note were not included.Received message from [facility] clinic nurse, called back to patient and voicemail answered.Home monitor reviewed, no anomalies noted. No high rate events recorded. No indication on home monitoring site of why it would be alerting her. It is possible the cellular connection has been intermittent.Left pt message she can call back to device clinic [phone], would advise if she is having chest pain to seek ER care or call 911.Left help line phone number to [employer] home monitoring to call and they can assist to troubleshoot if the monitor is not connecting as expected, but device is currently connecting.Will forward update to [facility] as well. 41682-8Yeltthbaq encounter KxqsSV7597-21-46I30:18:42Teleph one encounter NoteTXT1.2.840.994561.1.13.104. 2.7.2.999974|[id number] ble for patient tbwj32739-3CldiSH176890645Afywm a Saunders RN[address]TX[address] 91413FSISDJLSWVRBBMLOUCTSBH9740 -08-04T14:18:421.2.840.296077.1 .72.3.15|1.2.840.282092.1.13.10 4.2.7.2.727879_[id number] Daya Arboleda RN [facility] 2022-09-10 13:51:15 GTJqOB1wwF6v7lDvZxStNkIoR7rw5Or 3jLLjIRQp0ElHGnM/7iQagAzBgLV6z+ cm9554-77-76B84:51:15 Received call regarding pacemaker monitor alarming. Stated she has sent the recording multiple times, still alarming, c/o chest pain/pressure 04/16, attempted to notify device clinic, [facility] with mobile #. Advised patient toSeek medical attention as pacemaker continues alarming, chest pain / pressure. Verbalized understanding 87108-6Rlddyidip encounter LecvUR4319-83-88F78:55:57Teleph one encounter NoteTXT1.2.840.931511.1.13.104. 2.7.2.617884|[id number] ble for patient mxsp36514-4CzrhPL488657790Gbkdj A Roller RN[address] NiwcXtnchzsxiSaesaaaqrQOPQ54106 76158WXUKLNBLGJOVBOODIPFZDH8598 -08-04T13:55:571.2.840.376527.1 .72.3.15|1.2.840.923474.1.13.10 4.2.7.2.727879_[id number] Amna Wolf RN [facility]
[2023-06-11] MEDS ORDERED: dexAMETHasone 10 MG/ML VIAL ONE (17:28)
[2023-06-11] MEDS ORDERED: FENTANYL CITR 100 MCG/2 ML ONE ×2 (17:28→23:43)
[2023-06-11] MEDS ORDERED: ONDANSETRON 4 MG/2 ML VIAL ONE (17:28)
[2023-06-11] MEDS ORDERED: NA CHLORIDE 0.9% 1,000 ML ONE (17:29)
--- NOTE | 2023-06-11 18:23 | RAD REPORT ---
EXAM DESCRIPTION: CTStone Protocol - 06/11/2023 6:00 pm CLINICAL HISTORY: right side back/abdomen/groin pain COMPARISON: Abdomen Pelvis Wo Contrast dated 05/08/2023; Stone Protocol dated 06/02/2022; Abdomen Pelvis Wo Contrast dated 10/28/2021 TECHNIQUE: CT of the abdomen and pelvis was performed. All CT scans are performed using dose optimization technique as appropriate and may include automated exposure control or mA/KV adjustment according to patient size. FINDINGS: Lower chest: Pacemaker leads. Mild circumferential thickened distal esophagus. Liver: No acute abnormality or suspicious lesions. Biliary: Cholecystectomy. Stomach: No significant focal abnormality. Duodenum: No significant focal abnormality. Pancreas: Pancreatic atrophy. Spleen: No significant abnormality. Adrenal: No suspicious lesions. Kidney/ureter: No hydronephrosis. No renal calculi. Retroperitoneum: No retroperitoneal adenopathy. Vascular: No aneurysm. Bowel: Partial colectomy.. Moderate stool in the colon. Peritoneum: No ascites or free air. Bladder: Bladder gas present. Reproductive: No adnexal masses. Hysterectomy Bones: No acute fracture. Other: n/a IMPRESSION: No acute intra-abdominal or pelvic finding. Bladder gas may be from instrumentation.
--- NOTE | 2023-06-11 18:45 | RAD REPORT ---
EXAM DESCRIPTION: US - Extremity Venous Uni Ltd - 06/11/2023 6:37 pm CLINICAL HISTORY: Pain COMPARISON: None. TECHNIQUE: Real-time sonographic evaluation of the right lower extremity deep venous system was perf ormed. FINDINGS: Normal compressibility, flow augmentation, phasic flow and spontaneous flow is identified in the right lower extremity deep venous system. No intraluminal filling defects seen. IMPRESSION: No DVT in the right lower extremity.
[2023-06-11 20:25] LABS: Absolute Basophils 0.1 K/uL (0-0.5); Absolute Lymphocytes (CBC) 1.5 K/uL (0.7-4.9); Absolute Monocytes 0.7 K/uL (0.1-1.3); Absolute Neutrophil 11.8 K/uL (1.8-8.0); Basophils % 0.6 % (0-1.3); Eosinophils % 0.1 % (0-4.4); Hematocrit 29.3 % (36.0-45.0); Hemoglobin 9.8 g/dL (12.0-15.0); Lymphocytes % 10.5 % (15.3-44.8); MCH 34.8 pg (27.0-35.0); MCHC 33.7 g/dL (32.0-36.0); MCV 103.5 fL (80-100); MPV 7.8 fL (7.6-11.3); Neutrophils % 83.8 % (41.7-73.7); Platelets 309 thou/uL (152-406); RBC Red Blood Cell Count 2.83 M/uL (3.86-4.86); Red Cell Distribution Width 14.8 % (12.1-15.2)
[2023-06-11 20:32] LABS: Specific Gravity 1.022 (1.005-1.030); Sqamous Epithelial <5 /HPF (None Seen); Urine Bacteria 20-50 /HPF (<20); Urine Bilirubin NEGATIVE (Negative); Urine Blood Negative (Negative); Urine Clarity Extremely Turbid (Clear); Urine Color Light-Yellow (Yellow); Urine Culture Reflex Order REFLEXED; Urine Glucose NEGATIVE (Negative); Urine Ketones 1+ (Negative); Urine Microscopic Reflex YN ORDER UMIC; Urine Mucus Slight /HPF (None Seen); Urine Nitrite NEGATIVE (Negative); Urine Protein TRACE (Negative); Urine RBC <5 /HPF (None Seen); Urine Urobilinogen 1+ (Normal); Urine WBC 20-50 /HPF (<5); Urine pH 5.5 (5.0-7.0)
[2023-06-11 23:15] LABS: Albumin 3.5 g/dL (3.4-5.0); Albumin/Globulin Ratio 1.1 (1.1-1.8); Globulin 3.2 g/dL (2.3-3.5); Protein, Total 6.7 g/dL (6.4-8.2)
[2023-06-11] MEDS ORDERED: CEFTRIAXONE 1000 MG/VIAL ONE (23:43)
--- NOTE | 2023-06-12 00:05 | EDPHYS ---
Physician Documentation [facility] Name: Jennifer Petty Age: 62 yrs Sex: Female : 1960 Arrival Date: 06/11/2023 Time: 17:02 Bed 20 Private MD: ED Physician Latrell Celaya HPI: 06/10 17:20 This 62 yrs old Female presents to ER via EMS with complaints of Groin Pain. cp 17:20 Patient is a 62-year-old female with past medical history significant for fibromyalgia, cp hyperlipidemia who presents to the emergency department with complaints of right groin pain. Patient reports pain radiates down leg into right hip and to right lower back. Patient denies injury and also complains of pain all over. 17:20 Associated signs and symptoms: Pertinent positives: abdominal pain, Pertinent cp negatives: chest pain, constipation, diarrhea, fever, vomiting, wheezing. Historical: - Allergies: 17:11 Adhesives; ld1 17:11 Baclofen; ld1 17:11 Ciprofloxacin; ld1 17:11 Cymbalta; ld1 17:11 Depakote; ld1 17:11 GABAPENTIN; ld1 17:11 iodine I 131 Tosutumomab; ld1 17:11 Lisinopril; ld1 17:11 Losartan; ld1 17:11 Macrobid; ld1 17:11 Midrin; ld1 17:11 Robaxin; ld1 17:11 Morphine; ld1 17:11 Septra; ld1 17:11 Sinografin; ld1 17:11 topiramate; ld1 17:11 Toradol; ld1 17:11 tramadol; ld1 - Home Meds: 17:12 Oxycodone HCl 7.5 mg tab Oral 1 tab 3 times per day for pain [Active]; Plavix 75 mg ld1 Oral tablet 1 tab daily [Active]; - PMHx: 17:11 Allergic rhinitis; ld1 17:12 insomnia; Anxiety; Mood disorder; epilepsy; Fibromyalgia; Hypercholesterolemia; ld1 Hypertensive disorder; CVA; Lupus erythematosus; - Immunization history:: Adult Immunizations up to date. - Infectious Disease History:: Denies. - Social history:: Smoking status: Patient denies any tobacco usage or history of. ROS: 17:25 Constitutional: Negative for body aches, chills, fever, poor PO intake, cp 17:25 MS/extremity: Positive for pain, of the right leg and back and right hip, cp 17:25 Eyes: Negative for injury, pain, redness, and discharge, cp 17:25 ENT: Negative for drainage from ear(s), ear pain, sore throat, difficulty swallowing, difficulty handling secretions, 17:25 Cardiovascular: Negative for chest pain, edema, palpitations, 17:25 Respiratory: Negative for cough, shortness of breath, wheezing, 17:25 Abdomen/GI: Positive for abdominal pain, Negative for vomiting, diarrhea, constipation, black/tarry stool, rectal bleeding, bowel incontinence, 17:25 Back: Positive for radiated pain, of the right low back and right hip, Negative for injury or acute deformity, 17:25 Neuro: Negative for altered mental status, dizziness, headache, numbness, weakness, 17:25 All other systems are negative, Exam: 17:30 Constitutional: The patient appears in no acute distress, alert, awake, cp non-diaphoretic, non-toxic, well developed, well nourished, 17:30 Head/Face: Normocephalic, atraumatic. cp 17:30 Eyes: Periorbital structures: appear normal, Conjunctiva: normal, no exudate, no injection, Sclera: no appreciated abnormality, Lids and lashes: appear normal, bilaterally, 17:30 ENT: External ear(s): are unremarkable, Nose: is normal, Mouth: Lips: moist, Oral mucosa: pink and intact, moist, Posterior pharynx: Airway: no evidence of obstruction, patent, 17:30 Neck: ROM/movement: is normal, is supple, without pain, no range of motions limitations, 17:30 Chest/axilla: Inspection: normal, 17:30 Cardiovascular: Rate: tachycardic, Rhythm: regular, Edema: is not appreciated, JVD: is not appreciated, 17:30 Respiratory: the patient does not display signs of respiratory distress, Respirations: normal, no use of accessory muscles, no retractions, labored breathing, is not present, Breath sounds: are clear throughout, no decreased breath sounds, no stridor, no wheezing, 17:30 Abdomen/GI: Inspection: abdomen appears normal, Bowel sounds: active, all quadrants, Palpation: soft, in all quadrants, mild abdominal tenderness, in the right lower quadrant, rebound tenderness, is not appreciated, involuntary guarding, is not appreciated, 17:30 Back: pain, that is moderate, of the right low back, ROM is painful, with all movement, 17:30 Musculoskeletal/extremity: Extremities: grossly normal except: noted in the right hip and right groin and right leg: pain, There is no evidence of decreased ROM, deformity, swelling, ROM: full passive range of motion, in the right hip and right knee, Perfusion: the extremity is normally perfused throughout, 17:30 Skin: cellulitis, is not appreciated, no rash present. 17:30 Neuro: Orientation: to person, place \T\ time. Mentation: is normal, Motor: moves all fours, Vital Signs: 17:09 BP 101 / 74; Pulse 107; Resp 18; Temp 98.2(TE); Pulse Ox 100% on R/A; Weight 82.1 kg; ld1 Height 5 ft. 9 in. ; Pain 8/10; 18:31 BP 90 / 58; Pulse 97; Resp 18; Pulse Ox 100% on R/A; ld1 19:48 BP 101 / 74; Pulse 103; Resp 17 S; Pulse Ox 100% on R/A; lg3 20:39 BP 107 / 78; Pulse 102; Resp 16 S; Pulse Ox 98% on R/A; lg3 23:41 BP 129 / 78; Pulse 115; Resp 18 S; Pulse Ox 99% on R/A; lg3 06/11 03:01 BP 121 / 92; Pulse 111; Resp 17 S; Temp 97.5(O); Pulse Ox 100% on R/A; lg3 06/10 17:09 Body Mass Index 26.73 (82.10 kg, 175.26 cm) ld1 06/10 17:09 Pain Scale: Adult ld1 MDM: 06/10 17:13 Patient medically screened. 18:00 Differential diagnosis: UTI, fracture, DVT, chronic pain, kidney stone. 06/11 00:02 Data reviewed: vital signs, nurses notes, lab test result(s), radiologic studies, CT cp scan, and as a result, I will discharge patient. 00:02 I considered the following discharge prescriptions or medication management in the emergency department Medications were administered in the Emergency Department. See MAR. Care significantly affected by the following chronic conditions: Hypertension, Liver Disease, fibromyalgia, hyperlipidemia, . Counseling: I had a detailed discussion with the patient and/or guardian regarding the historical points, exam findings, and any diagnostic results supporting the discharge/admit diagnosis, lab results, radiology results, the need for outpatient follow up, a family practitioner, to return to the emergency department if symptoms worsen or persist or if there are any questions or concerns that arise at home. Response to treatment: the patient's symptoms have markedly improved after treatment, and as a result, I will discharge patient. 06/10 17:16 Order name: CBC with Diff; Complete Time: 22:14 06/10 22:14 Interpretation: Normal except: WBC 14.10; RBC 2.83; HGB 9.8; HCT 29.3; MCV 103.5; SHONDA% cp 83.8; LYM% 10.5; NEUT A 11.8. 06/10 17:16 Order name: CMP; Complete Time: 00:00 cp 06/11 00:00 Interpretation: Normal except: GLUC 122; BUN 42; GFR 89. 06/10 17:16 Order name: Lipase; Complete Time: 00:00 06/10 17:16 Order name: Urinalysis w/ reflexes; Complete Time: 22:14 06/10 22:14 Interpretation: Normal except: [facility] Extremely Turbid; UKET 1+; UPROT TRACE; UUROB 1+; cp UESTR 500; UWBC 20-50; UBACT 20-50. 06/10 21:11 Order name: Urine Culture EDDC 06/10 22:15 Order name: Lactate w/ 2H reflex if indic.; Complete Time: 00:00 06/11 00:01 Interpretation: LAC 1.9; Reviewed. 06/10 22:15 Order name: Blood Culture Adult (2) 06/10 17:16 Order name: CT Stone Protocol; Complete Time: 18:46 06/10 18:47 Interpretation: Report reviewed. 06/10 17:17 Order name: US Extremity Venous Unilateral Ltd; Complete Time: 18:46 06/10 17:16 Order name: IV Saline Lock; Complete Time: 19:51 06/10 17:16 Order name: Labs collected and sent; Complete Time: 19:51 06/10 21:36 [facility]: RECOLLECT GREEN TOP; Complete Time: 22:02 rv1 Administered Medications: 06/10 20:38 Drug: NS 0.9% IV 1000 ml IV at 500 ml/hr Per protocol; 1000 mL bolus Route: IV; Rate: lg3 500 ml/hr; Site: right forearm; 06/11 00:35 Follow up: Response: No adverse reaction; IV Status: Completed infusion; IV Intake: lg3 1000ml 06/10 20:38 Drug: Ondansetron IVP 4 mg IVP once; over 2 minutes Route: IVP; Site: right forearm; lg3 06/11 00:35 Follow up: Response: No adverse reaction lg3 06/10 20:38 Drug: fentaNYL (PF) IVP 25 mcg IVP once Route: IVP; Site: right forearm; lg3 06/11 00:35 Follow up: Response: No adverse reaction 3 06/10 20:38 Drug: Decadron - Dexamethasone IVP 10 mg IVP once Route: IVP; Site: right forearm; lg3 06/11 00:35 Follow up: Response: No adverse reaction 3 06/10 23:47 Drug: fentaNYL (PF) IVP 25 mcg IVP once Route: IVP; Site: right jugular; lg3 06/11 00:35 Follow up: Response: No adverse reaction; Marked relief of symptoms; Pain is decreased lg3 06/10 23:48 Drug: Rocephin IV 1 grams IV at calculated rate once; Given slow IV push per pharmacy lg3 instructions Route: IV; Rate: calculated rate; Site: right jugular; 06/11 00:34 Follow up: Response: No adverse reaction; IV Status: Completed infusion; IV Intake: 52gloj6 00:57 Not Given (Physician Discretion): diazepam5 mg IVP once lg3 Disposition: 00:09 I was immediately available on-site in the Emergency Department for consultation in the mo3 care of the patient. Disposition Summary: 06/12/23 00:04 Discharge Ordered Notes: Location: Home cp Problem: new cp Symptoms: have improved cp Condition: Stable cp Diagnosis - UTI/ Urinary tract infection, site not specified cp - Pain in right hip cp - Low back pain cp - Pain in right leg cp Followup: cp - With: Private Physician - When: 2 - 3 days - Reason: Recheck today's complaints Discharge Instructions: - Discharge Summary Sheet cp - Chronic Back Pain cp - Chronic Pain, Adult cp - Urinary Tract Infection, Adult cp Forms: - Medication Reconciliation Form cp - Antibiotic Education cp - Prescription Opioid Use cp - Patient Portal Instructions cp - Leadership Thank You Letter cp Prescriptions: - cefpodoxime 200 mg Oral tablet - take 1 tablet ORAL route every 12 hours for 7 days with food; 14 tablet; cp Refills: 0, Product Selection Permitted Signatures: Dispatcher [employer] EDMS Segundo Moses PA PA cp Able, Lacie RN RN lg3 Latrell Celaya DO DO ms3 Lety Celaya RN RN ld1 Radha Sandra rv1 Corrections: (The following items were deleted from the chart) 06/10 17:16 17:16 Stone Protocol+CT.RAD.BRZ ordered. EDMS EDMS 17:17 17:16 CBC+H.LAB.BRZ ordered. EDMS EDMS 17:17 17:16 COMPREHENSIVE METABOLIC PANEL+C.LAB.BRZ ordered. EDMS EDMS 17:17 17:16 LIPASE+C.LAB.BRZ ordered. EDMS EDMS 17:17 17:16 Urinalysis+U.LAB.BRZ ordered. EDMS EDMS
--- NOTE | 2023-06-12 00:05 | ER ---
Nurse's Notes [facility] Name: Jennifer Petty Age: 62 yrs Sex: Female : 1960 Arrival Date: 06/11/2023 Time: 17:02 Bed 20 Private MD: Diagnosis: UTI/ Urinary tract infection, site not specified;Pain in right hip;Low back pain;Pain in right leg Presentation: 06/10 17:09 Chief complaint: EMS states: toned out to [facility] for "all over pain." Upon arrival ld1 to ER pt denies injury, sudden groin pain. Oxycodone TID not working. Coronavirus screen: At this time, the client does not indicate any symptoms associated with coronavirus-19. Ebola Screen: No symptoms or risks identified at this time. Initial Sepsis Screen: Does the patient meet any 2 criteria? No. Patient's initial sepsis screen is negative. Does the patient have a suspected source of infection? No. Patient's initial sepsis screen is negative. Risk Assessment: Do you want to hurt yourself or someone else? Patient reports no desire to harm self or others. Onset of symptoms was June 11, 2023. 17:09 Method Of Arrival: EMS: [facility] ld1 17:09 Acuity: JOSE ENRIQUE 3 ld1 Triage Assessment: 17:12 General: Appears in no apparent distress. uncomfortable, Behavior is anxious, fussy. ld1 Pain: Complains of pain in pelvis Pain does not radiate. Pain currently is 8 out of 10 on a pain scale. Quality of pain is described as throbbing, Pain began suddenly, Is continuous. EENT: No signs and/or symptoms were reported regarding the EENT system. Neuro: Level of Consciousness is awake, alert, obeys commands, Oriented to person, place, time, situation. Cardiovascular: Capillary refill < 3 seconds Patient's skin is warm and dry. Respiratory: Airway is patent Respiratory effort is even, unlabored. GI: Abdomen is round non-distended. : No signs and/or symptoms were reported regarding the genitourinary system. Derm: No signs and/or symptoms reported regarding the dermatologic system. Musculoskeletal: No signs and/or symptoms reported regarding the musculoskeletal system. Historical: - Allergies: 17:11 Adhesives; ld1 17:11 Baclofen; ld1 17:11 Ciprofloxacin; ld1 17:11 Cymbalta; ld1 17:11 Depakote; ld1 17:11 GABAPENTIN; ld1 17:11 iodine I 131 Tosutumomab; ld1 17:11 Lisinopril; ld1 17:11 Losartan; ld1 17:11 Macrobid; ld1 17:11 Midrin; ld1 17:11 Robaxin; ld1 17:11 Morphine; ld1 17:11 Septra; ld1 17:11 Sinografin; ld1 17:11 topiramate; ld1 17:11 Toradol; ld1 17:11 tramadol; ld1 - Home Meds: 17:12 Oxycodone HCl 7.5 mg tab Oral 1 tab 3 times per day for pain [Active]; Plavix 75 mg ld1 Oral tablet 1 tab daily [Active]; - PMHx: 17:11 Allergic rhinitis; ld1 17:12 insomnia; Anxiety; Mood disorder; epilepsy; Fibromyalgia; Hypercholesterolemia; ld1 Hypertensive disorder; CVA; Lupus erythematosus; - Immunization history:: Adult Immunizations up to date. - Infectious Disease History:: Denies. - Social history:: Smoking status: Patient denies any tobacco usage or history of. Screenin:16 [facility] ED Fall Risk Assessment (Adult) History of falling in the last 3 months, ld1 including since admission No falls in past 3 months (0 pts). Abuse screen: Denies threats or abuse. Denies injuries from another. Nutritional screening: No deficits noted. Tuberculosis screening: No symptoms or risk factors identified. Assessment: 17:16 Reassessment: See triage assessment. ld1 18:15 Reassessment: Pt C/O groin pain. Ultrasound at bedside completing exam. ld1 18:15 General: Appears uncomfortable, Behavior is agitated, fussy. Neuro: Level of ld1 Consciousness is awake, alert, obeys commands. Derm: Skin is pale, Skin temperature is cool. 18:57 Reassessment: Charge nurse at bedside attempting ultrasound IV>. ld1 18:57 Reassessment: No changes from previously documented assessment. Patient and/or family ld1 updated on plan of care and expected duration. Pain level reassessed. 19:48 General: Appears in no apparent distress. uncomfortable, Behavior is cooperative, lg3 fussy. Pain: Complains of pain in right hip Pain radiates to back, left hip and right leg. Neuro: No deficits noted. Spaulding Agitation-Sedation Scale (RASS): 0 - Alert and Calm Level of Consciousness is awake, alert, obeys commands, Oriented to person, place, time, situation. Cardiovascular: No deficits noted. Denies chest pain, shortness of breath, Capillary refill < 3 seconds Clubbing of nail beds is absent JVD is absent Patient's skin is warm and dry. Respiratory: No deficits noted. Airway is patent Respiratory effort is even, unlabored, Respiratory pattern is regular, symmetrical. GI: No deficits noted. No signs and/or symptoms were reported involving the gastrointestinal system. Abdomen is round non-distended. : No deficits noted. No signs and/or symptoms were reported regarding the genitourinary system. EENT: No deficits noted. No signs and/or symptoms were reported regarding the EENT system. Derm: No signs and/or symptoms reported regarding the dermatologic system. Skin is intact, is healthy with good turgor, Skin is dry, Skin is pale, Skin temperature is cool. Musculoskeletal: No deficits noted. Circulation, motion, and sensation intact. Range of motion: intact in all extremities. 22:48 Reassessment: Patient appears in no apparent distress at this time. No changes from lg3 previously documented assessment. Patient and/or family updated on plan of care and expected duration. Pain level reassessed. Patient states symptoms have not improved. 23:41 Reassessment: Patient appears in no apparent distress at this time. No changes from lg3 previously documented assessment. Patient and/or family updated on plan of care and expected duration. Pain level reassessed. Patient is alert, oriented x 3, equal unlabored respirations, skin warm/dry/pink. Patient states symptoms have not improved. 06/11 00:24 General: report given to [facility]. DC pending transportation. lg3 03:01 Reassessment: Patient appears in no apparent distress at this time. No changes from lg3 previously documented assessment. Patient and/or family updated on plan of care and expected duration. Pain level reassessed. Patient is alert, oriented x 3, equal unlabored respirations, skin warm/dry/pink. Patient states feeling better. Patient states symptoms have improved. Vital Signs: 05/04 17:09 BP 101 / 74; Pulse 107; Resp 18; Temp 98.2(TE); Pulse Ox 100% on R/A; Weight 82.1 kg; ld1 Height 5 ft. 9 in. ; Pain 8/10; 18:31 BP 90 / 58; Pulse 97; Resp 18; Pulse Ox 100% on R/A; ld1 19:48 BP 101 / 74; Pulse 103; Resp 17 S; Pulse Ox 100% on R/A; lg3 20:39 BP 107 / 78; Pulse 102; Resp 16 S; Pulse Ox 98% on R/A; lg3 23:41 BP 129 / 78; Pulse 115; Resp 18 S; Pulse Ox 99% on R/A; lg3 05 03:01 BP 121 / 92; Pulse 111; Resp 17 S; Temp 97.5(O); Pulse Ox 100% on R/A; lg3 06/10 17:09 Body Mass Index 26.73 (82.10 kg, 175.26 cm) ld1 06/10 17:09 Pain Scale: Adult ld1 ED Course: 06/10 17:08 Patient arrived in ED. ld1 17:08 Segundo Moses PA is PHCP. cp 17:08 Dean Miller MD is Attending Physician. cp 17:11 Triage completed. ld1 17:12 Arm band placed on right wrist. ld1 17:16 Patient has correct armband on for positive identification. Placed in gown. Bed in low ld1 position. Call light in reach. Side rails up X2. cafeteria monitor on. Pulse ox on. NIBP on. Door closed. Noise minimized. Warm blanket given. 17:16 No provider procedures requiring assistance completed. ld1 17:32 Lety Celaya, AYLIN is Primary Nurse. ld1 18:02 CT Stone Protocol In Process Unspecified. EDMS 18:39 US Extremity Venous Unilateral Ltd In Process Unspecified. EDMS 18:57 Missed attempt(s): 20 gauge in right antecubital area. ld1 19:50 Missed attempt(s): 22 gauge Bleeding controlled, band aid applied, catheter tip intact. oe 19:55 Inserted saline lock: 24 gauge in right forearm, using aseptic technique. Blood oe collected. 20:06 Urine collected: straight cath specimen, jaun colored. oe 22:40 Missed attempt(s): 20 gauge in left upper arm. vc1 23:01 Missed attempt(s): 20 gauge in left upper arm. vc1 23:19 Latrell Celaya DO is Attending Physician. cp 23:42 Inserted saline lock: 20 gauge in right EJ, using aseptic technique. Blood collected. lg3 06/11 03:04 IV discontinued, intact, bleeding controlled, No redness/swelling at site. Pressure lg3 dressing applied. Administered Medications: 06/10 20:38 Drug: NS 0.9% IV 1000 ml IV at 500 ml/hr Per protocol; 1000 mL bolus Route: IV; Rate: lg3 500 ml/hr; Site: right forearm; 06/11 00:35 Follow up: Response: No adverse reaction; IV Status: Completed infusion; IV Intake: lg3 1000ml 06/10 20:38 Drug: Ondansetron IVP 4 mg IVP once; over 2 minutes Route: IVP; Site: right forearm; lg3 06/11 00:35 Follow up: Response: No adverse reaction lg3 06/10 20:38 Drug: fentaNYL (PF) IVP 25 mcg IVP once Route: IVP; Site: right forearm; lg3 06/11 00:35 Follow up: Response: No adverse reaction lg3 06/10 20:38 Drug: Decadron - Dexamethasone IVP 10 mg IVP once Route: IVP; Site: right forearm; lg3 06/11 00:35 Follow up: Response: No adverse reaction lg3 06/10 23:47 Drug: fentaNYL (PF) IVP 25 mcg IVP once Route: IVP; Site: right jugular; lg3 06/11 00:35 Follow up: Response: No adverse reaction; Marked relief of symptoms; Pain is decreased lg3 06/10 23:48 Drug: Rocephin IV 1 grams IV at calculated rate once; Given slow IV push per pharmacy lg3 instructions Route: IV; Rate: calculated rate; Site: right jugular; 06/11 00:34 Follow up: Response: No adverse reaction; IV Status: Completed infusion; IV Intake: [id number] 00:57 Not Given (Physician Discretion): diazepam5 mg IVP once lg3 Medication: 03:04 VIS not applicable for this client. lg3 Intake: 00:34 IV: 10ml; Total: 10ml. lg3 00:35 IV: 1000ml; Total: 1010ml. lg3 Outcome: 00:04 Discharge ordered by . kimberly 03:03 Discharged to custodial. lg3 03:03 Condition: stable 03:03 Discharge instructions given to patient, custodial, Instructed on discharge instructions, follow up and referral plans. medication usage, Demonstrated understanding of instructions, follow-up care, medications, Prescriptions given X 1, 03:04 Patient left the ED. lg3 Signatures: Dispatcher [employer] EDMS Segundo Moses PA PA cp Espinosa, Orlando oe Able, Lacie RN RN lg3 Lety Celaya, RN RN ld1 Alice Gutiérrez RN RN vc1
[2023-06-12] MEDS ORDERED: DIAZEPAM 10 MG/2 ML INJ SYRINGE ONE (00:23)
[2023-06-12 03:46] VITALS: BP 121/92; TEMP 97.5; O2SAT 100
== END 2023-06-12 03:04 | disposition home or self-care (01) ==
LOC: ER 17:02
DX: N39.0 Urinary tract infection, site not specified (principal); M25.551 Pain in right hip; M79.604 Pain in right leg; I10 Essential (primary) hypertension; Z88.1 Allergy status to other antibiotic agents; Z88.5 Allergy status to narcotic agent; Z88.6 Allergy status to analgesic agent; Z88.8 Allergy status to other drugs, medicaments and biological substances; Z91.048 Other nonmedicinal substance allergy status; Z86.73 Personal history of transient ischemic attack (TIA), and cerebral infarction without residual deficits; Z79.01 Long term (current) use of anticoagulants
CPT/HCPCS: 87040; 87088; 85025; 81001; 87086; 36415; 83605; 83690; 80053; 76377; 74176; 93971; J3360; J3010 ×2; J1100; J2405; J7030; J0696; 87077; 87186

== ENCOUNTER 2024-05-24 23:17 | Emergency (ER) | payer OTHER ==
--- OUTSIDE RECORDS SUMMARY | 2024-05-24 23:27 | XMS REPORT | Continuity of Care Document ---
Author Name Unknown Address [address] [facility] [address] [place] [address] [facility] Address [address] [place] [place] [address] Care Team Providers Care Ed Teacher Name Role Phone CLAYTON MANUEL Primary Care Physician Unavailab WANDA Jurado Attending Clinician UnavailCAROLA Alvarez Attending Clinician Unavailable CAROLA CRUZ Attending Clinician Unavailable JIM CARRILLO Attending Clinician Unav JIM Herndon Attending Clinician Melissav Jim Herndon MD Attending Clinician + Dania Ovalle Attending Clinician Unavail able Irais Benson MD Attending Clinician [phone] Carola Cruz MD Attending Clinician [phone] Diane Diaz PA-C Attending Clinician [phone] DIANE DIAZ Attending Clinician Unavailable DIANE DIAZ Attending Clinician Unavailable BRENT WELLS Attending Clinician UnavailBRENT Hinojosa Attending Clinician UnavailArina Felix RN Attending Clinician Unavailable KVNG RUIZ Attending Clinician Unavailable KVNG RUIZ Attending Clinician Unavailable Chi Hooker MD Attending Clinician [phone] Franklyn Schwartz MD Attending Clinician FRANKLYN SCHWARTZ Attending Clinician Unavail able FRANKLYN SCHWARTZ Attending Clinician Unavail able Lab, Ang - Db Attending Clinician Unavailable Unknown, Attending Attending Clinician Unavailab CRISTAL Waddell Attending Clinician Unavailable Cristal Katz Attending Clinician [phone] VERONICA LNAE Attending Clinician Melissa THAI Abreu Attending Clinician Unavailalison Soto MD, Wanda Nuñez Attending Clinician + [phone] Domitila AMIN, Sheryl Menjivar Attending Clinician + Doctor Unassigned, [place] Attending Clinician U eulalio Salguero MD, Thai Attending Clinician [phone] Marcelino AMIN, Irais Attending Clinician [phone] IRAIS BENSON Attending Clinician Unavailable EDIL FENG Attending Clinician Unavailable Ping AMIN, Edil Attending Clinician [phone] [facility] Attending Clinician Unavailable Adalberto Mera MD Attending Clinician [phone] LUDMILA RUIZ Attending Clinician Unavailable Joseph AMIN, Ludmila Attending Clinician + [phone] KRISTI GUZMAN Attending Clinician KRISTI Alston Attending Clinician Solitario Shaw MD, Dagoberto Attending Clinician +[phone] DAGOBERTO SHAW Attending Clinician Unavailable Jose Angel VIERA, Heaven Attending Clinician Unava Marco A Brown MD Attending Clinician + [place] VILLALPANDO Attending Clinician Unavaila Charlotte Lobato Attending Clinician [phone] PATRICIA BOLAÑOS Attending Clinician Unavailable Noel Richmond DO Attending Clinician [phone] Tom Lopez MD Attending Clinician + [phone] Patricia Bolaños MD Attending Clinician [phone] Alta Ma MD Attending Clinician +[phone] Jamey Bai MD Attending Clinician SHAISTA GUERRA Attending Clinician UnavailShaista Ahumada MD Attending Clinician Only, Adc Test Attending Clinician Unavailable Milena OROPEZA Attending Clinician Unavailable Milena Dickey Attending Clinician [phone] Maryan Mendoza Attending Clinician [phone] Kylee Delarosa MD Attending Clinician + [phone] Leslye Franz MD Attending Clinician +[phone] Radha Holden MD Attending Clinician +[phone] Haritha AMIN, [facility] Attending Clinician +[phone] BALDEMAR MEJIAS Attending Clinician Unavaila antonio Mejias MD, Baldemar Kate Attending Clinician [phone] Dagoberto AMIN, Ilana Valencia Attending Clinician Amarilis Bergman DO Attending Clinician +[phone] PREMA MENDEZ Attending Clinician Unavailable TRINIDAD INFANTE Attending Clinician Unavailab ILANA Young Attending Clinician Un available BEATRIS HOLT Attending Clinician Unavailable ANNEMARIE EDGAR Attending Clinician Unavailable TYLER BASS Attending Clinician Unavailable LUDMILA MERLOS Attending Clinician Unavailable RADHA MCINTOSH Attending Clinician Unavaila CAR Garcia Attending Clinician Unavaila CAR Garcia Attending Clinician Unavaila WANDA Andrade Admitting Clinician UnavailLUDMILA Bills Admitting Clinician Unavailable JIM CARRILLO Admitting Clinician Unav ailable CHI HOOKER Admitting Clinician Unavailable EDIL FENG Admitting Clinician Unavailable DAGOBERTO SHAW Admitting Clinician Unavailable Dagoberto Shaw MD Admitting Clinician [phone] [place] VILLALPANDO Admitting Clinician Unavaila PATRICIA Dunn Admitting Clinician Unavailable Patricia Bolaños MD Admitting Clinician [phone] Ludmila Ruiz MD Admitting Clinician [phone] SHAISTA GUERRA Admitting Clinician UnavailShaista Ahumada MD Admitting Clinician [phone] Milena OROPEZA Admitting Clinician Unavailable Leslye Franz MD Admitting Clinician LESLYE FRANZ Admitting Clinician Unavailable DENA ESTEBAN Admitting Clinician Unavailable ERLIN SCHWARTZ Admitting Clinician Unavailab RADHA [place]ino Admitting Clinician Unavaila ble Payers Payer Name Policy Type Policy Number Effective Date Expirati on Date Source [employer] [id number] 2022 00:00:00 [place] [id number] 2023 00:00:00 [employer]AR[employer] P[employer] HMO [id number] 00:00:00 [facility] DUAL COMPLETE [id number] 2024 00:00:00 [facility] PLUS [id number] 00:00:00 Problems Condition Name Condition Details Condition Category Status Onset Date Resolution Date Last Treatment Date Treating Clinician Comments Source Anemia Anemia Disease Active 7-12 00:00: 00 [facility] Symptomati c bradycardi a Symptomati c bradycardi a Disease Active 6-17 00:00: 00 [facility] Excess skin of abdominal wall Excess skin of abdominal wall Disease Active 4-12 00:00: 00 [facility] Preop cardiovasc ular exam Preop cardiovasc ular exam Disease Active 2022-02 2-07 00:00: 00 [facility] SVT (supravent ricular tachycardi a) SVT (supravent ricular tachycardi a) Disease Active 2022-02 2-07 00:00: 00 [facility] Slow transit constipati on Slow transit constipati on Disease Active 4-27 00:00: 00 [facility] Incontinen ce of feces with fecal urgency Incontinen ce of feces with fecal urgency Disease Active 4-27 00:00: 00 [facility] Frequent falls Frequent falls Disease Active 4-07 00:00: 00 [facility] Anemia, unspecifie d Anemia, unspecifie d Disease Active 3-30 00:00: 00 [facility] Other specified postproced ural states Other specified postproced ural states Disease Active 3-24 00:00: 00 [facility] Syncope and collapse Syncope and collapse Disease Active 8-09 00:00: 00 [facility] Dyslipidem ia Dyslipidem ia Disease Active 8-09 00:00: 00 [facility] Sinus pause status post PPM Sinus pause status post PPM Disease Active 8- 00:00: 00 [facility] Hypokalemi a Hypokalemi a Disease Active 8-09 00:00: 00 [facility] Pain, unspecifie d Pain, unspecifie d Disease Active 4 00:00: 00 [facility] 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 Disease Active 4 00:00: 00 [facility] 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 Disease Active 05-23 00:00: 00 [facility] Cerebral infarction , unspecifie d Cerebral infarction , unspecifie d Disease Active 416 00:00: 00 [facility] Diaphragma tic hernia with obstructio n, without gangrene Diaphragma tic hernia with obstructio n, without gangrene Disease Active 416 00:00: 00 [facility] Diverticul osis of large intestine without perforatio n or abscess without bleeding Diverticul osis of large intestine without perforatio n or abscess without bleeding Disease Active 416 00:00: 00 [facility] Hypertensi ve heart disease without heart failure Hypertensi ve heart disease without heart failure Disease Active 416 00:00: 00 [facility] Hepatomega ly, not elsewhere classified Hepatomega ly, not elsewhere classified Disease Active 416 00:00: 00 [facility] 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 Disease Active 16 00:00: 00 [facility] Muscle weakness (generaliz ed) Muscle weakness (generaliz ed) Disease Active 16 00:00: 00 [facility] Other abnormalit ies of gait and mobility Other abnormalit ies of gait and mobility Disease Active 416 00:00: 00 [facility] Other lack of coordinati on Other lack of coordinati on Disease Active 16 00:00: 00 [facility] Other seizures Other seizures Disease Active 16 00:00: 00 [facility] Personal history of colonic polyps Personal history of colonic polyps Disease Active 05-23 00:00: 00 [facility] Polyneurop athy, unspecifie d Polyneurop athy, unspecifie d Disease Active 05-23 00:00: 00 [facility] Systemic lupus erythemato liliya, unspecifie d Systemic lupus erythemato liliya, unspecifie d Disease Active 16 00:00: 00 [facility] Perforatio n of sigmoid colon s/p [facility] on 05/13/2020 Perforatio n of sigmoid colon s/p [facility] on 05/13/2020 Disease Active 05-13 00:00: 00 [facility] Therapeuti c opioid-ind uced constipati on (OIC) Therapeuti c opioid-ind uced constipati on (OIC) Disease Active 05-13 00:00: 00 [facility] Chronic, continuous use of opioids Chronic, continuous use of opioids Disease Recurre nce 05-13 00:00: 00 Overview: Formattin g of this note might be different from the original. Percocet [facility] Atelectasi s Atelectasi s Disease Active 05-13 00:00: 00 [facility] Perforatio n of intestine (nontrauma tic) Perforatio n of intestine (nontrauma tic) Disease Active 2021-0 4-06 00:00: 00 [facility] Encounter for surgical aftercare following surgery on the digestive system Encounter for surgical aftercare following surgery on the digestive system Disease Active 4 00:00: 00 [facility] Klebsiella pneumoniae (k. pneumoniae ) as the cause of diseases classified elsewhere Klebsiella pneumoniae (k. pneumoniae ) as the cause of diseases classified elsewhere Disease Active 4 00:00: 00 [facility] Opioid use, unspecifie d, uncomplica jung Opioid use, unspecifie d, uncomplica jung Disease Active 406 00:00: 00 [facility] Stroke of uncertain pathology Stroke of uncertain pathology Disease Active 04-19 00:00: 00 [facility] Discoid lupus Discoid lupus Disease Active 03-19 00:00: 00 [facility] History of systemic lupus erythemato liliya (SLE) History of systemic lupus erythemato liliya (SLE) Disease Active 03-19 00:00: 00 [facility] History of seizure History of seizure Disease Active 2018-02 2 00:00: 00 [facility] History of seizure History of seizure Disease Active 2018-02 00:00: 00 [facility] Mixed hyperlipid emia Mixed hyperlipid emia Disease Active 10-27 00:00: 00 [facility] Prediabete s Prediabete s Disease Active 05-17 00:00: 00 [facility] Kidney lesion, [place], right Kidney lesion, [place], right Disease Active 05-01 00:00: 00 Overview: Formattin g of this note might be different from the original. likely angiolipo ma per Radiology [facility] Kidney lesion, [place], right Kidney lesion, [place], right Disease Active 05-01 00:00: 00 Overview: Formattin g of this note might be different from the original. likely angiolipo ma per Radiology [facility] Hyperthyro idism Hyperthyro idism Disease Active 2017-02 2-19 00:00: 00 [facility] Obesity (BMI 30-39.9) Obesity (BMI 30-39.9) Disease Active 2017-02 2-17 00:00: 00 [facility] Vitamin D deficiency Vitamin D deficiency Disease Active 10-27 00:00: 00 [facility] Chronic insomnia Chronic insomnia Disease Active 10-16 00:00: 00 [facility] Chronic migraine without aura without status migrainosu s, not intractabl e Chronic migraine without aura without status migrainosu s, not intractabl e Disease Active 10-16 00:00: 00 [facility] Neuropathy Neuropathy Disease Active 10-16 00:00: 00 [facility] Pacemaker Pacemaker Disease Recurre nce 10-16 00:00: 00 [facility] Essential hypertensi on Essential hypertensi on Disease Active 10-16 00:00: 00 [facility] History of hepatitis C History of hepatitis C Disease Active 10-16 00:00: 00 [facility] PUD (peptic ulcer disease) PUD (peptic ulcer disease) Disease Active 10-16 00:00: 00 [facility] Gastroesop hageal reflux disease, esophagiti s presence not specified Gastroesop hageal reflux disease, esophagiti s presence not specified Disease Active 10-16 00:00: 00 [facility] History of urinary tract surgery History of urinary tract surgery Disease Active 10-16 00:00: 00 [facility] Fibromyalg ia Fibromyalg ia Disease Active 10-16 00:00: 00 [facility] Parasomnia Parasomnia Disease Active 10-16 00:00: 00 [facility] Anxiety Anxiety Disease Active 02-20 00:00: 00 Overview: Formattin g of this note might be different from the original. Formattin g of this note might be different from the original. H/o cx pain [facility] Vitamin B12 deficiency Vitamin B12 deficiency Disease Active 02-20 00:00: 00 [facility] IBS (irritable bowel syndrome) IBS (irritable bowel syndrome) Disease Active 2007-02 00:00: 00 [facility] Visceral hyperalges ia Visceral hyperalges ia Disease Active 2007-02 00:00: 00 [facility] Allergic rhinitis Allergic rhinitis Disease Active [facility] Cyst of left kidney Cyst of left kidney Disease Active [facility] Ventral hernia without obstructio n or gangrene Ventral hernia without obstructio n or gangrene Disease Resolve d 2021-02 1-21 00:00: 00 2022-06-03 00:00:00 2022-06-03 12:16:40 [facility] Incisional hernia, without obstructio n or gangrene Incisional hernia, without obstructio n or gangrene Disease Resolve d 8-28 00:00: 00 2022-06-03 00:00:00 2022-06-03 12:16:37 [facility] Attention to colostomy Attention to colostomy Disease Resolve d 3-16 00:00: 00 2022-06-03 00:00:00 2022-06-03 12:16:30 [facility] Colostomy status Colostomy status Disease Resolve d 3-16 00:00: 00 2022-06-03 00:00:00 2022-06-03 12:16:32 [facility] Stercoral ulcer of large intestine Stercoral ulcer of large intestine Disease Resolve d 3-01 00:00: 00 2022-06-03 00:00:00 2022-06-03 12:16:25 Overview: Formattin g of this note might be different from the original. Added automatic ally from request for surgery [id number] [facility] Colostomy in place Colostomy in place Disease Resolve d 2-11 00:00: 00 2022-06-03 00:00:00 2022-06-03 12:16:18 Overview: Formattin g of this note might be different from the original. Added automatic ally from request for surgery [id number] [facility] GIB (gastroint estinal bleeding) GIB (gastroint estinal bleeding) Disease Resolve d 1-09 00:00: 00 2022-06-03 00:00:00 2022-06-03 12:16:12 [facility] Melena Melena Disease Resolve d 1-08 00:00: 00 2022-06-03 00:00:00 2022-06-03 12:16:14 Overview: Formattin g of this note might be different from the original. Added automatic ally from request for surgery [id number] [facility] Parastomal hernia without obstructio n or gangrene Parastomal hernia without obstructio n or gangrene Disease Resolve d 2020-02 0-19 00:00: 00 2022-06-03 00:00:00 2022-06-03 12:15:30 [facility] Noncomplia nce with treatment regimen Noncomplia nce with treatment regimen Disease Resolve d 4-12 00:00: 00 2022-06-03 00:00:00 2022-06-03 12:16:07 [facility] Acute blood loss anemia Acute blood loss anemia Disease Resolve d 4-07 00:00: 00 2022-06-03 00:00:00 2022-06-03 12:16:02 [facility] Peritoniti s Peritoniti s Disease Resolve d 4-06 00:00: 00 2022-06-03 00:00:00 2022-06-03 12:16:00 [facility] COVID-19 COVID-19 Disease Resolve d 2019-02 2-03 00:00: 00 2020-05-13 00:00:00 2020-05-13 12:35:41 [facility] SVT (supravent ricular tachycardi a) SVT (supravent ricular tachycardi a) Disease Resolve d 5-27 00:00: 00 2020-05-13 00:00:00 2020-05-13 12:35:38 [facility] Hypertensi ve urgency Hypertensi ve urgency Disease Resolve d 2017-02 2-18 00:00: 00 2020-05-13 00:00:00 2020-05-13 12:35:18 [facility] Chest pain Chest pain Disease Resolve d 2017- 2-17 00:00: 00 2020-05-13 00:00:00 2020-05-13 12:35:13 [facility] Allergies, Adverse Reactions, Alerts Allergy Name Allergy Type Status Severity Reaction(s) Onset Date Inactive Date Treating Clinician Comments Source PREGABAL IN DRUG INGREDI Active Low Swelling 2022-0 7-18 00:00: 00 [facility] Pregabal in Propensi ty to adverse reaction s Active Swelling 0 -18 00:00: 00 [facility] TOSITUMO MAB DRUG INGREDI Active Unknown-Cmnt 0 3-02 00:00: 00 [facility] Tositumo mab Propensi ty to adverse reaction s Active Unknown - See comments 0 3- 00:00: 00 [facility] Gabapent in Drug Allergy Active Palpitations 2021-0 3-16 00:00: 00 [facility] GABAPENT IN DRUG INGREDI Active Palpitations 2021-0 3-16 00:00: 00 [facility] Losartan Propensi ty to adverse reaction s Active Cough 2019-0 5-27 00:00: 00 [facility] LOSARTAN DRUG INGREDI Active COUGH 2019-0 5-27 00:00: 00 [facility] Lisinopr il Propensi ty to adverse reaction s Active Cough 2018-0 9- 00:00: 00 [facility] LISINOPR IL DRUG INGREDI Active COUGH 2019-0 - 00:00: 00 [facility] Baclofen Propensi ty to adverse reaction s Active Hallucinatio ns 2017-0 09-28 00:00: 00 [facility] Ciproflo xacin Propensi ty to adverse reaction s Active Hives 0 09-28 00:00: 00 [facility] Duloxeti ne Propensi ty to adverse reaction s Active Other - See comments 0 09-28 00:00: 00 Transamin itis [facility] Divalpro ex Sodium Propensi ty to adverse reaction s Active Hives 09-28 00:00: 00 [facility] Gabapent in Enacarbi l Propensi ty to adverse reaction s Active Unknown - See comments 09-28 00:00: 00 [facility] Nitrofur antoin Monohyd/ M-Cryst Propensi ty to adverse reaction s Active Hives 09-28 00:00: 00 [facility] Isometh- Dichlora l-Acetam inophn Propensi ty to adverse reaction s Active Shortness of Breath 09-28 00:00: 00 [facility] Morphine Sulfate Propensi ty to adverse reaction s Active Hives 09-28 00:00: 00 [facility] Methocar bamol Propensi ty to adverse reaction s Active Diarrhea 09-28 00:00: 00 [facility] Septra I.V. Propensi ty to adverse reaction s Active Shortness of Breath 09-28 00:00: 00 [facility] Diatrizo ate And Iodipami de Amber Propensi ty to adverse reaction s Active Hives 09-28 00:00: 00 [facility] Topirama te Propensi ty to adverse reaction s Active Other - See comments 09-28 00:00: 00 Tingling, overwhelm ing feeliing [facility] Ketorola c Trometha mine Propensi ty to adverse reaction s Active Other - See comments 09-28 00:00: 00 Restless legs [facility] Tramadol Propensi ty to adverse reaction s Active Other - See comments 09-28 00:00: 00 shaky legs [facility] Adhesive Propensi ty to adverse reaction s Active Other - See comments 09-28 00:00: 00 redness [facility] Iodine And Iodide Containi ng Products Propensi ty to adverse reaction s Active Hives 09-28 00:00: 00 [facility] ADHESIVE Drug Class Active Other-Cmnt 09-28 00:00: 00 [facility] BACLOFEN DRUG INGREDI Active Hallucinates 09-28 00:00: 00 [facility] CIPROFLO XACIN DRUG INGREDI Active Hives 09-28 00:00: 00 [facility] IODINE AND IODIDE CONTAINI NG PRODUCTS Drug Class Active Hives 09-28 00:00: 00 [facility] DULOXETI NE DRUG INGREDI Active Other-Cmnt 09-28 00:00: 00 [facility] DIVALPRO EX SODIUM DRUG INGREDI Active Hives 09-28 00:00: 00 [facility] GABAPENT IN ENACARBI L DRUG INGREDI Active Unknown-Cmnt 09-28 00:00: 00 [facility] NITROFUR ANTOIN MONOHYD/ M-CRYST DRUG Active Hives 09-28 00:00: 00 [facility] ISOMETH- DICHLORA L-ACETAM INOPHN DRUG Active Hives 09-28 00:00: 00 [facility] MORPHINE SULFATE DRUG INGREDI Active Hives 09-28 00:00: 00 [facility] METHOCAR BAMOL DRUG INGREDI Active Diarrhea 09-28 00:00: 00 [facility] SEPTRA I.V. DRUG Active Hives 09-28 00:00: 00 [facility] DIATRIZO ATE AND IODIPAMI DE AMBER DRUG Active Hives 09-28 00:00: 00 [facility] TOPIRAMA TE DRUG INGREDI Active Other-Cmnt 09-28 00:00: 00 [facility] KETOROLA C TROMETHA MINE DRUG INGREDI Active Hives 09-28 00:00: 00 [facility] TRAMADOL DRUG INGREDI Active Other-Cmnt 09-28 00:00: 00 [facility] Adhesive Propensi ty to adverse reaction s Active Other - See comments 09-28 00:00: 00 redness [facility] Social History Social Habit Start Date Stop Date Quantity Comments Source Gender [facility] SDOH Alcohol Frequency [facility] History SDOH Alcohol Std Drinks [facility] History SDOH Alcohol Binge [facility] Alcoholic beverage intake 2023-11-23 00:00:00 2023-11-23 00:00:00 Current drinker of alcohol (finding) [facility] History of Social function 2023-09-20 00:00:00 2023-09-20 00:00:00 [facility] Tobacco use and exposure 2023-08-19 00:00:00 2023-08-19 00:00:00 Smokeless tobacco non-user [facility] Alcohol intake 2023-06-07 00:00:00 2023-06-07 00:00:00 Current drinker of alcohol (finding) [facility] Exposure to SARS-CoV-2 (event) 2022-05-24 00:00:00 2022-06-03 09:25:00 Not sure [facility] Education 2020-01-11 00:00:00 2020-01-11 00:00:00 16 [facility] Alcohol Comment 2018-10-10 00:00:00 2018-10-10 00:00:00 Rare occasions [facility] Sex assigned at 1960 00:00:00 1960 00:00:00 [facility] Smoking Status Start Date Stop Date Source Never smoked tobacco [facility] Medications Ordered Medication Name Filled Medication Name Start Date Stop Date Current Medication? Ordering Clinician Indication Dosage Frequency Signature (SIG) Comments Components Source FENTanyl PF (SUBLIMAZE (PF)) injection 25 mcg 09-08 20:49: 25 09-09 01:27 :02 No 25ug 25 mcg, Slow IV Push, Q5MIN PRN, 4 doses, Starting on Tue09/09/23 at 1549, Until Tue09/09/23 at 2026, Routine, Pain (scale 4-6), [facility] [facility] ondansetron (ZOFRAN (PF)) injection 4 mg 09-08 20:49: 19 09-09 01:27 :02 No 4mg 4 mg, Slow IV Push, PRN, 1 dose, Starting on Tue09/09/23 at 1549, Until Tue09/09/23 at 2026, Routine, Nausea and Vomiting (N/V), PACU [facility] sulfamethox azole-trime thoprim 800-160 mg per tablet 08-30 00:00: 00 Yes [facility] hydrocortis one 1 % cream 08-28 00:00: 00 Yes [facility] hydrALAZINE (APRESOLINE ) tablet 25 mg 08-21 15:15: 00 08-21 15:23 :00 No 25mg 25 mg, Oral, ONCE, 1 dose, On Tue08/22/23 at 1015, Routine [facility] guaiFENesin 100 mg/5 mL solution 100 mg 08-20 19:36: 34 08-21 21:43 :51 No 100mg 100 mg, Oral, Q4HPRN, Starting on Tue08/21/23 at 1436, Until Tue08/22/23 at 1643, Routine, Cough [facility] benzonatate (TESSALON PERLES) capsule 100 mg 08-20 15:15: 00 08-20 15:37 :00 No 100mg 100 mg, Oral, ONCE, 1 dose, On Tue08/21/23 at 1015, Routine [facility] magnesium sulfate in water 2 gram/50 mL (4 %) infusion 2 g 08-20 14:00: 00 08-20 14:51 :00 No 2g 2 g, IV Piggyback, Administer over 60 Minutes, ONCE, 1 dose, On Tue08/21/23 at 0900, Routine [facility] KCL (KLOR-CON M20) tablet 20 mEq 08-20 13:15: 00 08-21 01:15 :00 No 20meq 20 mEq, Oral, BID, 2 doses, First dose (after last reorder) on Tue08/21/23 at 0815, Last dose on Tue08/21/23 at 2000, Routine [facility] magnesium oxide (MAG-OX 400) tablet 400 mg 08-20 08:30: 00 08-20 08:06 :00 No 400mg 400 mg, Oral, ONCE, 1 dose, On 08/21/23 at 0330, Routine [facility] atorvastati n (LIPITOR) tablet 10 mg 08-20 02:00: 00 08-21 21:43 :51 No 10mg 10 mg, Oral, QHS, First dose on 08/20/23 at 2100, Until Discontinu ed, Routine [facility] methocarbam oL (ROBAXIN) tablet 1,000 mg 08-19 17:45: 00 08-19 17:27 :00 No 1000mg 1,000 mg, Oral, ONCE, 1 dose, On 08/20/23 at 1245, Routine [facility] iron dextran (INFED) 25 mg in NaCl 0.9% (NS) 100 mL IV piggyback 08-19 16:45: 00 08-19 17:57 :00 No 25mg 25 mg, IV Piggyback, ONCE, 1 dose, On 08/20/23 at 1145, Administer over 15 Minutes, 100 mL [facility] iron dextran (INFED) 1,000 mg in NaCl 0.9% (NS) 500 mL IV infusion 08-19 15:30: 00 08-19 19:24 :00 No 1000mg 1,000 mg, IV Infusion, ONCE, 1 dose, On Tue08/20/23 at 1030, Administer over 1 Hours, 500 mL [facility] cetirizine (ALLERGY RELIEF (CETIRIZINE )) tablet 5 mg 08-19 14:00: 00 08-21 21:43 :51 No 5mg 5 mg, Oral, DAILY, First dose on Tue08/20/23 at 0900, Until Discontinu ed, Routine [facility] pyridoxine (VITAMIN B-6) tablet 25 mg 08-19 14:00: 00 08-21 21:43 :51 No 25mg 25 mg, Oral, DAILY, First dose on 08/19/24 at 0900, Until Discontinu ed [facility] sennosides- docusate sodium (SENOKOT-S) 8.6-50 mg per tablet 1 tablet 08-19 14:00: 00 08-20 14:06 :44 No 1{tbl} 1 tablet, Oral, DAILY, First dose on Tue08/20/23 at 0900, Until Discontinu ed, Routine [facility] KCL (KLOR-CON M20) tablet 40 mEq 08-19 12:30: 00 08-19 17:26 :00 No 40meq 40 mEq, Oral, ONCE, 1 dose, On Tue08/20/23 at 0730, Routine [facility] Potassium Bicarb-Citr ic Acid (EFFER-K) effervescen t tablet 40 mEq 08-19 04:30: 00 08-19 03:55 :00 No 40meq 40 mEq, Oral, ONCE, 1 dose, On Tue08/19/23 at 2330, Routine [facility] sodium chloride (OCEAN MIST NASAL) 0.65 % nasal spray 1 [place] 08-19 03:04: 47 08-21 21:43 :51 No 1{spray } 1 [place], Nasal, PRN, Starting on Tue08/19/23 at 2204, Until Tue08/22/23 at 1643, Routine, congestion [facility] amitriptyli ne (ELAVIL) tablet 100 mg 08-19 02:00: 00 08-21 21:43 :51 No 100mg 100 mg, Oral, QHS, First dose on Tue08/19/23 at 2100, Until Discontinu ed, Routine [facility] hydroxychlo roquine (PLAQUENIL) tablet 200 mg 08-19 01:00: 00 08-21 21:43 :51 No 200mg 200 mg, Oral, BID, First dose on Tue08/19/23 at 2000, Until Discontinu ed, Routine [facility] pantoprazol e 40 mg EC tablet 08-19 00:00: 00 Yes 40mg Take 1 tablet by mouth in the morning. [facility] levETIRAcet am (KEPPRA) tablet 1,000 mg 08-18 22:30: 00 08-21 21:43 :51 No 1000mg 1,000 mg, Oral, BID, First dose (after last modificati on) on Tue08/19/23 at 1730, Until Discontinu ed, Routine [facility] vitamin B-12 (CYANOCOBAL ACEVEDO) tablet 1,000 mcg 08-18 21:15: 00 08-21 21:43 :51 No 1000ug 1,000 mcg, Oral, DAILY, First dose on Tue08/19/23 at 1615, Until Discontinu ed, Routine [facility] pantoprazol e (PROTONIX) injection 40 mg 08-18 20:15: 00 08-21 21:43 :51 No 40mg 40 mg, Slow IV Push, Q12H, First dose on Tue08/19/23 at 1515, Until Discontinu ed [facility] oxyCODONE-a cetaminophe n (PERCOCET) 5-325 mg per tablet 2 tablet 08-18 19:00: 00 08-21 21:43 :51 No 2{tbl} 2 tablet, Oral, Q8H, First dose (after last modificati on) on Tue08/19/23 at 1400, Until Discontinu ed, Routine [facility] acetaminoph en (TYLENOL) tablet 650 mg 08-18 18:48: 41 08-21 21:43 :51 No 650mg 650 mg, Oral, Q6HPRN, Starting on Tue08/19/23 at 1348, Until Tue08/22/23 at 1643, Routine, Pain (scale 1-3) [facility] FENTanyl PF (SUBLIMAZE (PF)) injection 50 mcg 08-18 18:45: 00 08-18 18:02 :00 No 50ug 50 mcg, Slow IV Push, ONCE, 1 dose, On Tue08/19/23 at 1345, STAT [facility] naloxone (NARCAN) injection 0.4 mg 08-18 17:56: 44 08-21 21:43 :51 No .4mg 0.4 mg, Slow IV Push, PRN, Starting on Tue08/19/23 at 1256, Until Tue08/22/23 at 1643, Routine, Sedation/R espiratory Depression [facility] HYDROcodone -acetaminop hen (NORCO) 10-325 mg tablet 1 tablet 08-18 15:30: 00 08-18 14:49 :00 No 1{tbl} 1 tablet, Oral, ONCE, 1 dose, On Tue08/19/23 at 1030, Routine [facility] rOPINIRole 0.25 mg tablet 08-14 00:00: 00 Yes [facility] pyridoxine, VITAMIN B-6, 25 mg tablet 07-05 13:51: 22 07-05 00:00 :00 No 25mg Take 1 tablet by mouth in the morning. [facility] HYDROcodone -acetaminop hen 7.5-325 mg per tablet 07-05 13:50: 46 07-05 00:00 :00 No 1{tbl} Take 1 tablet by mouth every 6 (six) hours as needed. [facility] cloNIDine 0.1 mg tablet 06-26 10:58: 16 Yes .1mg Take 1 tablet by mouth 4 (four) times daily. [facility] ondansetron 4 mg tablet 06-12 00:00: 00 Yes [facility] cefpodoxime 200 mg tablet 06-11 00:00: 00 08-18 00:00 :00 No [facility] clobetasoL 0.05 % cream 2022-02 00:00: 00 07-05 00:00 :00 No [id number] Apply twice daily to feet where the redness. [facility] propranoloL 40 mg tablet 2022-02 09:11: 08 11-09 00:00 :00 No 40mg Take 40 mg by mouth 3 (three) times daily. [facility]EL[facility]AL 2022-02 0 09:11: 11-09 00:00 :00 No 15mg Take 15 mg by mouth. [facility] cephALEXin 500 mg capsule 2022-02 0 09:11: 11-09 00:00 :00 No 500mg Take 1 capsule by mouth 4 (four) times daily. [facility] Compression Socks, Medium Misc 11-01 00:00: 00 Yes [id number] Use as directed [facility] doxycycline monohydrate 100 mg capsule 11-01 00:00: 00 08-18 00:00 :00 No [id number] 100mg Take 1 capsule by mouth in the morning and 1 capsule in the evening. [facility] tacrolimus 0.1 % ointment 11-01 00:00: 00 07-05 00:00 :00 No [id number] Apply to area(s) 2 (two) times daily. Safe for the face. [facility] atorvastati n 10 mg tablet 10-31 00:00: 00 Yes [facility] meloxicam 15 mg tablet 10-31 00:00: 00 08-18 00:00 :00 No [facility] propranoloL 20 mg tablet 10-29 00:00: 00 Yes [facility] HYDROcodone -acetaminop hen 7.5-325 mg per tablet 10-26 11:14: 44 Yes 1{tbl} Take 1 tablet by mouth every 6 (six) hours as needed. [facility] oxyCODONE-a cetaminophe n 7.5-325 mg per tablet 10-25 00:00: 00 Yes [facility] hydrALAZINE 25 mg tablet 10-16 00:00: 00 Yes [facility] clobetasoL 0.05 % cream 8 00:00: 00 12-06 00:00 :00 No [id number] Apply twice daily to feet where the redness. [facility] pyridoxine, VITAMIN B-6, 25 mg tablet 08-24 11:58: 31 Yes 25mg Take 1 tablet by mouth in the morning. [facility] cephALEXin 500 mg capsule 08-24 11:58: 31 Yes 500mg Take 1 capsule by mouth 4 (four) times daily. [facility] terbinafine HCL 1 % cream 08-24 00:00: 00 07-05 00:00 :00 No [id number] Apply to area(s) 2 (two) times daily. [facility] cephALEXin 500 mg capsule 06-03 09:34: 27 Yes 500mg Take 1 capsule by mouth 4 (four) times daily. [facility] MELOXICAM ORAL 04-08 09:49: 35 Yes 15mg Take 15 mg by mouth. [facility] acetaminoph en 650 mg CR tablet 04-08 09:49: 35 Yes 650mg Take 1 tablet by mouth every 8 (eight) hours as needed for Pain. [facility] Lactobacill us acidoph-pec tin capsule 04-08 09:49: 35 Yes 1{capsu le} Take 1 capsule by mouth in the morning. [facility] loperamide (IMODIUM A-D) 2 mg capsule 04-08 09:49: 35 08-18 00:00 :00 No 2mg Take 1 capsule by mouth every 4 (four) hours as needed for Diarrhea. [facility] HYDROcodone -acetaminop hen 7.5-325 mg per tablet 02-11 11:39: 30 07-05 00:00 :00 No 1{tbl} Take 1 tablet by mouth every 6 (six) hours as needed. [facility] cetirizine 10 mg tablet 02-09 12:02: 37 Yes 10mg Take 10 mg by mouth daily. [facility] propranoloL 40 mg tablet 02-09 12:02: 37 Yes 40mg Take 40 mg by mouth 3 (three) times daily. [facility] pyridoxine, VITAMIN B-6, 25 mg tablet 02-09 12:02: 37 Yes 25mg Take 25 mg by mouth daily. [facility] acetaminoph en 650 mg CR tablet 02-09 12:02: 37 Yes 650mg Take 650 mg by mouth every 8 (eight) hours as needed for Pain. [facility] HYDROcodone -acetaminop hen 5-325 mg tablet 02-09 12:02: 37 Yes 1{tbl} Take 1 tablet by mouth every 6 (six) hours as needed. [facility] docusate 100 mg capsule 02-09 12:02: 37 Yes 100mg Take 100 mg by mouth daily. [facility] DILTIAZEM HCL ORAL 02-09 12:02: 37 Yes 120mg Take 120 mg by mouth every 8 (eight) hours. [facility] furosemide 20 mg tablet 02-09 12:02: 37 Yes 20mg Take 1 tablet by mouth in the morning. [facility] famotidine 40 mg tablet 02-09 12:02: 37 08-19 00:00 :00 No 40mg Take 1 tablet by mouth in the morning. [facility] cetirizine 10 mg tablet 2021-02 16:58: 27 Yes 10mg Take 10 mg by mouth daily. [facility] propranoloL 40 mg tablet 2021-02 16:58: 27 Yes 40mg Take 40 mg by mouth 3 (three) times daily. [facility] pyridoxine, VITAMIN B-6, 25 mg tablet 2021-02 16:58: 27 Yes 25mg Take 25 mg by mouth daily. [facility] acetaminoph en 650 mg CR tablet 2021-02 16:58: 27 Yes 650mg Take 650 mg by mouth every 8 (eight) hours as needed for Pain. [facility] docusate 100 mg capsule 2021-02 16:58: 27 Yes 100mg Take 100 mg by mouth daily. [facility] HYDROcodone -acetaminop hen 5-325 mg tablet 2021-02 16:58: 27 Yes 1{tbl} Take 1 tablet by mouth every 6 (six) hours as needed. [facility] polyethylen e glycol 3350 (MIRALAX ORAL) 2021-02 16:58: 27 Yes Take by mouth. [facility] furosemide (LASIX) 20 mg tablet 2021-02 16:58: 27 Yes 20mg Take 20 mg by mouth in the morning. [facility] famotidine 40 mg tablet 2021-02 16:58: 27 Yes 40mg Take 40 mg by mouth in the morning. [facility] ondansetron (ZOFRAN-ODT ) disintegrat ing tablet 4 mg 2021-02 14:35: 55 Yes 4mg 4 mg, Oral, Q6HPRN, Starting on Tue12/30/21 at 0835, Until Discontinu ed, Routine, Nausea and Vomiting (N/V) [facility] HYDROcodone -acetaminop hen (NORCO) 5-325 mg tablet 2021-02 00:00: 00 01-07 05:59 :00 No [id number] 1{tbl} Take 1 tablet by mouth every 6 (six) hours as needed for Pain (scale 7-10) for up to 7 days. Indication s: acute pain [facility] alum-mag hydroxide-s imeth (MAALOX PLUS / MAG-AL PLUS) 200-200-20 mg/5 mL suspension 30 mL 2021-02 20:00: 00 Yes 30mL 30 mL, Oral, TID, First dose on Tue12/29/21 at 1400, Until Discontinu ed, Routine [facility] acetaminoph en (TYLENOL) tablet 650 mg 2021-02 18:00: 00 Yes 650mg 650 mg, Oral, Q6H, First dose (after last modificati on) on Tue12/29/21 at 1200, Until Discontinu ed, Routine [facility] HYDROmorpho ne (DILAUDID) 10 mg/50 mL 0.9% NaCl [employer] 2021-02 16:30: 00 12-31 16:29 :00 No Patient Bolus Dose: 0.2 mg
Lock out Interval: 10 Minutes
Basal Rate: 0 mg/hr
F our Hour Dose Limit: 4 mg
IV Infusion, 50 mL, CONTINUOUS , Starting on Tue12/29/21 at 1030, Until Tue12/31/21 at 1029 [facility] HYDROcodone -acetaminop hen (NORCO) 10-325 mg tablet 1 tablet 2021-02 15:24: 46 Yes 1{tbl} 1 tablet, Oral, Q4HPRN, Starting on Tue12/29/21 at 0924, Until Discontinu ed, Routine, Pain (scale 7-10) [facility] cyclobenzap rine (FLEXERIL) tablet 5 mg 2021-02 15:15: 00 Yes 5mg 5 mg, Oral, TID, First dose on Tue12/29/21 at 0915, Until Discontinu ed, Routine [facility] enoxaparin (LOVENOX) injection 40 mg 2021-02 15:00: 00 Yes 40mg 40 mg, Subcutaneo us, DAILY, First dose on Tue12/29/21 at 0900, Until Discontinu ed, Routine [facility] furosemide (LASIX) tablet 20 mg 2021-02 15:00: 00 Yes 20mg 20 mg, Oral, DAILY, First dose on Tue12/29/21 at 0900, Until Discontinu ed, Routine [facility] famotidine (PEPCID AC) tablet 40 mg 2021-02 15:00: 00 Yes 40mg 40 mg, Oral, DAILY, First dose on Tue12/29/21 at 0900, Until Discontinu ed, Routine [facility] atorvastati n (LIPITOR) tablet 80 mg 2021-02 03:00: 00 Yes 80mg 80 mg, Oral, QHS, First dose on Tue12/28/21 at 2100, Until Discontinu ed, Routine [facility] amitriptyli ne (ELAVIL) tablet 100 mg 2021-02 03:00: 00 Yes 100mg 100 mg, Oral, QHS, First dose on Tue12/28/21 at 2100, Until Discontinu ed, Routine [facility] levETIRAcet am (KEPPRA) tablet 1,000 mg 2021-02 02:00: 00 Yes 1000mg 1,000 mg, Oral, BID, First dose on Tue12/28/21 at 2000, Until Discontinu ed, Routine [facility] hydrOXYchlo roQUINE (PLAQUENIL) tablet 200 mg 2021-02 02:00: 00 Yes 200mg 200 mg, Oral, BID, First dose on Tue12/28/21 at 2000, Until Discontinu ed, Routine
Indicatio n: Rheumatic disorder [facility] HYDROmorpho ne (DILAUDID) 10 mg/50 mL 0.9% NaCl [employer]STRU[employer] 2021-02 23:30: 00 12-29 13:39 :30 No Patient Bolus Dose: 0.2 mg
Lock out Interval: 10 Minutes
Basal Rate: 0 mg/hr
F our Hour Dose Limit: 4 mg
IV Infusion, 50 mL, CONTINUOUS , Starting on Tue12/28/21 at 1730, Until Tue12/29/21 at 0739 [facility] naloxone (NARCAN) injection 0.1 mg 2021-02 22:21: 08 Yes .1mg 0.1 mg, Slow IV Push, SEE-INSTRU CTIONS, Starting on Tue12/28/21 at 1621, Until Discontinu ed, Routine [facility] propranoloL (INDERAL) tablet 40 mg 2021-02 20:00: 00 Yes 40mg 40 mg, Oral, TID, First dose on Tue12/28/21 at 1400, Until Discontinu ed, Routine [facility] diltiazem (CARDIZEM) tablet 120 mg 2021-02 20:00: 00 Yes 120mg 120 mg, Oral, Q8H, First dose on Tue12/28/21 at 1400, Until Discontinu ed [facility] HYDROmorpho ne (DILAUDID) injection 0.2 mg 2021-02 19:13: 34 12-28 23:34 :16 No .2mg 0.2 mg, Slow IV Push, Q5MIN PRN, 10 doses, Starting on Tue12/28/21 at 1313, Until Tue12/28/21 at 1734, Routine, Pain (scale 7-10), PACU
Us e approved by (Faculty): PACU USE -ANESTHESI A SERVICE-HY DROMORPHON E INJECTIONS [facility] FENTanyl PF (SUBLIMAZE (PF)) injection 25 mcg 2021-02 19:13: 34 12-28 22:20 :00 No 25ug 25 mcg, Slow IV Push, Q5MIN PRN, 4 doses, Starting on Tue12/28/21 at 1313, Until Discontinu ed, Routine, Pain (scale 4-6), PACU [facility] acetaminoph en (TYLENOL) tablet 650 mg 2021-02 18:55: 08 12-29 13:47 :13 No 650mg 650 mg, Oral, Q6HPRN, Starting on Tue12/28/21 at 1255, Until Tue12/29/21 at 0747, Routine, Pain (scale 1-3) [facility] ondansetron (ZOFRAN (PF)) injection 4 mg 2021-02 18:54: 57 Yes 4mg 4 mg, Slow IV Push, Q6HPRN, Starting on Tue12/28/21 at 1254, Until Discontinu ed, Routine, Nausea and Vomiting (N/V) [facility] sugammadex (BRIDION) injection 2021-02 18:42: 00 12-28 19:04 :26 No IV Push, ONCE INTRA PROCEDURE, Starting on Tue12/28/21 at 1242, Until Tue12/28/21 at 1304, Routine, Intra-op [facility] ondansetron (ZOFRAN (PF)) injection 2021-02 18:37: 00 12-28 19:04 :26 No Slow IV Push, ONCE INTRA PROCEDURE, Starting on Tue12/28/21 at 1237, Until Tue12/28/21 at 1304, Routine, Intra-op [facility] PHENYLephri ne 1000 mcg/10 mL in 0.9% NaCl syringe 2021-02 18:10: 00 12-28 19:04 :26 No Slow IV Push, CONTINUOUS PRN, Starting on Tue12/28/21 at 1210, Until Tue12/28/21 at 1304, Routine, Intra-op [facility] PHENYLephri ne 1000 mcg/10 mL in 0.9% NaCl syringe 2021-02 17:38: 00 12-28 19:04 :26 No Slow IV Push, ONCE INTRA PROCEDURE, Starting on Tue12/28/21 at 1138, Until Tue12/28/21 at 1304, Routine, Intra-op [facility] furosemide (LASIX) 20 mg tablet 2021-02 17:34: 17 Yes 20mg Take 20 mg by mouth in the morning. [facility] MELOXICAM ORAL 2021-02 17:34: 17 Yes 15mg Take 15 mg by mouth. [facility] famotidine 40 mg tablet 2021-02 17:34: 17 Yes 40mg Take 40 mg by mouth in the morning. [facility] DILTIAZEM HCL ORAL 2021-02 17:34: 17 Yes 120mg Take 120 mg by mouth every 8 (eight) hours. [facility] ketamine (KETALAR) injection 2021-02 16:52: 00 12-28 19:04 :26 No Intravenou s, ONCE INTRA PROCEDURE, Starting on Tue12/28/21 at 1052, Until Tue12/28/21 at 1304, Routine, Intra-op [facility] bupivacaine (preserv free) (SENSORCAIN E MPF) 0.25 % (2.5 mg/mL) 22 mL, bupivacaine liposome (PF) (EXPAREL (PF)) 1.3 % (13.3 mg/mL) 266 mg, NaCl 0.9% (NS) 50 mL 2021-02 15:47: 00 12-28 19:03 :19 No PRN, Starting on Tue12/28/21 at 0947, Intra-op [facility] HYDROmorphO ne (DILAUDID) injection 2021-02 14:03: 00 12-28 19:04 :26 No Slow IV Push, ONCE INTRA PROCEDURE, Starting on Tue12/28/21 at 0803, Until Tue12/28/21 at 1304, Routine, Intra-op [facility] bupivacaine (preserv free) (SENSORCAIN E MPF) 0.25 % (2.5 mg/mL) injection 2021-02 14:03: 00 12-28 19:03 :19 No PRN, Starting on Tue12/28/21 at 0803, Until Tue12/28/21 at 1303, Routine, Intra-op [facility] dexamethaso ne (DECADRON PHOSPHATE) injection 2021-02 13:58: 00 12-28 19:04 :26 No IV Push, ONCE INTRA PROCEDURE, Starting on Tue12/28/21 at 0758, Until Tue12/28/21 at 1304, Routine, Intra-op [facility] midazolam (VERSED) injection 2021-02 13:48: 00 12-28 19:04 :26 No IV Push, ONCE INTRA PROCEDURE, Starting on Tue12/28/21 at 0748, Until Tue12/28/21 at 1304, Routine, Intra-op [facility] ceFAZolin (ANCEF) injection 2021-02 13:32: 00 12-28 19:04 :26 No Slow IV Push, ONCE INTRA PROCEDURE, Starting on Tue12/28/21 at 0732, Until Tue12/28/21 at 1304, SULAIMAN, Intra-op [facility] rocuronium (ZEMURON) injection 2021-02 13:23: 00 12-28 19:04 :26 No IV Push, ONCE INTRA PROCEDURE, Starting on Tue12/28/21 at 0723, Until Tue12/28/21 at 1304, Routine, Intra-op [facility] propofoL IV infusion 2021-02 13:22: 00 12-28 19:04 :26 No Slow IV Push, ONCE INTRA PROCEDURE, Starting on Tue12/28/21 at 0722, Until Tue12/28/21 at 1304, Routine, Intra-op [facility] lidocaine 1% (XYLOCAINE) 100 mg/10 mL (1 %) injection 2021-02 13:22: 00 12-28 19:04 :26 No Intravenou s, ONCE INTRA PROCEDURE, Starting on Tue12/28/21 at 0722, Until Tue12/28/21 at 1304, Routine, Intra-op [facility] FENTanyl PF (SUBLIMAZE (PF)) injection 2021-02 13:22: 00 12-28 19:04 :26 No Intravenou s, ONCE INTRA PROCEDURE, Starting on Tue12/28/21 at 0722, Until Tue12/28/21 at 1304, Routine, Intra-op [facility] lactated ringers IV infusion 2021-02 13:19: 00 12-28 19:04 :26 No IV Infusion, CONTINUOUS PRN, Starting on Tue12/28/21 at 0719, Until Tue12/28/21 at 1304, Routine, Intra-op [facility] furosemide (LASIX) 20 mg tablet 2021-02 13:03: 19 Yes 20mg Take 20 mg by mouth in the morning. [facility] MELOXICAM ORAL 2021-02 13:03: 19 Yes 15mg Take 15 mg by mouth. [facility] famotidine 40 mg tablet 2021-02 13:03: 19 Yes 40mg Take 40 mg by mouth in the morning. [facility] DILTIAZEM HCL ORAL 2021-02 13:03: 19 Yes 120mg Take 120 mg by mouth every 8 (eight) hours. [facility] cetirizine 10 mg tablet 2021-02 12:56: 34 Yes 10mg Take 10 mg by mouth daily. [facility] propranoloL 40 mg tablet 2021-02 12:56: 34 Yes 40mg Take 40 mg by mouth 3 (three) times daily. [facility] pyridoxine, VITAMIN B-6, 25 mg tablet 2021-02 12:56: 34 Yes 25mg Take 25 mg by mouth daily. [facility] acetaminoph en 650 mg CR tablet 2021-02 12:56: 34 Yes 650mg Take 650 mg by mouth every 8 (eight) hours as needed for Pain. [facility] docusate 100 mg capsule 2021-02 12:56: 34 Yes 100mg Take 100 mg by mouth daily. [facility] HYDROcodone -acetaminop hen 5-325 mg tablet 2021-02 12:56: 34 Yes 1{tbl} Take 1 tablet by mouth every 6 (six) hours as needed. [facility] polyethylen e glycol 3350 (MIRALAX ORAL) 2021-02 12:56: 34 Yes Take by mouth. [facility] heparin (porcine) injection 5,000 Units 2021-02 12:38: 00 12-28 13:06 :00 No 5000U 5,000 Units, Subcutaneo us, ONCE, 1 dose, On 12/28/21 at 0645, SULAIMAN [facility] DILTIAZEM HCL ORAL 2021-02 18:00: 36 Yes 120mg Take 120 mg by mouth every 8 (eight) hours. [facility] MELOXICAM ORAL 2021-02 17:54: 18 Yes 15mg Take 15 mg by mouth. [facility] famotidine 40 mg tablet 2021-02 17:54: 18 Yes 40mg Take 40 mg by mouth in the morning. [facility] pyridoxine, VITAMIN B-6, 25 mg tablet 2021-02 17:15: 57 Yes 25mg Take 25 mg by mouth daily. [facility] HYDROcodone -acetaminop hen 5-325 mg tablet 2021-02 17:15: 57 Yes 1{tbl} Take 1 tablet by mouth every 6 (six) hours as needed. [facility] furosemide 20 mg tablet 2021-02 17:15: 57 Yes 20mg Take 20 mg by mouth in the morning. [facility] cetirizine 10 mg tablet 2021-02 16:47: 56 Yes 10mg Take 10 mg by mouth daily. [facility] acetaminoph en 650 mg CR tablet 2021-02 16:47: 56 Yes 650mg Take 650 mg by mouth every 8 (eight) hours as needed for Pain. [facility] docusate 100 mg capsule 2021-02 16:47: 56 Yes 100mg Take 100 mg by mouth daily. [facility] polyethylen e glycol 3350 (MIRALAX ORAL) 2021-02 16:47: 56 Yes Take by mouth. [facility] cetirizine 10 mg tablet 09-29 15:02: 10 Yes 10mg Take 10 mg by mouth daily. [facility] propranoloL 40 mg tablet 09-29 15:02: 10 Yes 40mg Take 40 mg by mouth 3 (three) times daily. [facility] acetaminoph en 650 mg CR tablet 09-29 15:02: 10 Yes 650mg Take 1 tablet by mouth every 8 (eight) hours as needed for Pain. [facility] docusate 100 mg capsule 09-29 15:02: 10 Yes 100mg Take 100 mg by mouth daily. [facility] HYDROcodone -acetaminop hen 5-325 mg tablet 09-29 15:02: 10 Yes 1{tbl} Take 1 tablet by mouth every 6 (six) hours as needed. [facility] DILTIAZEM HCL ORAL 09-29 15:02: 10 Yes 120mg Take 120 mg by mouth every 8 (eight) hours. [facility] pyridoxine, VITAMIN B-6, 25 mg tablet 07-03 09:03: 31 07-05 00:00 :00 No 25mg Take 1 tablet by mouth in the morning. [facility] LEVETIRACET AM 500 mg tablet 04 00:00: 00 Yes TAKE 2 TABLETS BY MOUTH TWICE DAILY [facility] Cyanocobala min 1,000 mcg tablet 30 00:00: 00 Yes 1000ug Take 1 tablet by mouth. [facility] cetirizine 10 mg tablet 3 00:00: 00 Yes 10mg Take 1 tablet by mouth. [facility] omeprazole 40 mg capsule 02-18 00:00: 00 08-18 00:00 :00 No [id number] 40mg Take 1 capsule by mouth 2 (two) times daily. [facility] amitriptyli ne 100 mg tablet 2020-02 00:00: 00 Yes 1{tbl} 1 tablet at bedtime. Takes total of 125mg [facility] amitriptyli ne 100 mg tablet 2020-02 00:00: 00 Yes 100mg Take 1 tablet by mouth at bedtime. [facility] clopidogreL 75 mg tablet 2020-02 00:00: 00 Yes 1{tbl} 1 tablet daily. [facility] clopidogreL 75 mg tablet 2020-02 00:00: 00 Yes 75mg Take 1 tablet in the morning. [facility] tiZANidine 2 mg tablet 2020-02 00:00: 00 Yes 1{tbl} 1 tablet at bedtime. [facility] tiZANidine 2 mg tablet 2020-02 00:00: 00 08-18 00:00 :00 No 2mg 1 tablet at bedtime. [facility] atorvastati n 80 mg tablet 2020-02 00:00: 00 11-09 00:00 :00 No 1{tbl} 1 tablet at bedtime. [facility] pyridoxine HCl, vitamin B6, (VITAMIN B-6 ORAL) 2021-0 4-24 00:00: 00 Yes 1{tbl} Take 1 tablet by mouth. [facility] hydrOXYchlo roQUINE 200 mg tablet 11-05 00:00: 00 Yes 200mg Take 1 tablet by mouth in the morning and 1 tablet in the evening. [facility] Immunizations Ordered Immunization Name Filled Immunization Name Date Status Comments Source Influenza Virus Vaccine Quad .5 mL IM 6+ MO (FLUZONE/FLULAVAL/F LUARIX) 2023-09-30 00:00:00 Completed [facility] Pneumococcal Polysaccharide, PPSV23 (PNEUMOVAX) 2023-09-30 00:00:00 Completed [facility] TDAP 2023-09-30 00:00:00 Completed [facility] Influenza Virus Vaccine (3+ yrs) 2023-09-30 00:00:00 Completed [facility] SARS-COV-2 COVID-19 PFIZER VACCINE 2023-09-30 00:00:00 Completed [facility] Influenza Virus Vaccine Quad .5 mL IM 6+ MO (FLUZONE/FLULAVAL/F LUARIX) 2023-09-09 00:00:00 Completed [facility] Influenza Virus Vaccine Quad .5 mL IM 6+ MO (FLUZONE/FLULAVAL/F LUARIX) 2023-07-25 00:00:00 Completed [facility] Pneumococcal Polysaccharide, PPSV23 (PNEUMOVAX) 2023-07-25 00:00:00 Completed [facility] TDAP 2023-07-25 00:00:00 Completed [facility] Influenza Virus Vaccine (3+ yrs) 2023-07-25 00:00:00 Completed [facility] SARS-COV-2 COVID-19 PFIZER VACCINE 2023-07-25 00:00:00 Completed [facility] Influenza Virus Vaccine Quad .5 mL IM 6+ MO (FLUZONE/FLULAVAL/F LUARIX) 2023-07-21 09:51:23 Completed [facility] Pneumococcal Polysaccharide, PPSV23 (PNEUMOVAX) 2023-07-21 09:51:23 Completed [facility] TDAP 2023-07-21 09:51:23 Completed [facility] Influenza Virus Vaccine (3+ yrs) 2023-07-21 09:51:23 Completed [facility] SARS-COV-2 COVID-19 PFIZER VACCINE 2023-07-21 09:51:23 Completed [facility] TDAP 2023-06-27 11:20:00 Completed [facility] Influenza Virus Vaccine (3+ yrs) 2023-06-27 11:20:00 Completed [facility] SARS-COV-2 COVID-19 PFIZER VACCINE 2023-06-27 11:20:00 Completed [facility] Influenza Virus Vaccine Quad .5 mL IM 6+ MO (FLUZONE/FLULAVAL/F LUARIX) 2023-06-27 11:20:00 Completed [facility] Pneumococcal Polysaccharide, PPSV23 (PNEUMOVAX) 2023-06-27 11:20:00 Completed [facility] Influenza Virus Vaccine Quad .5 mL IM 6+ MO (FLUZONE/FLULAVAL/F LUARIX) 2023-06-27 10:30:00 Completed [facility] Pneumococcal Polysaccharide, PPSV23 (PNEUMOVAX) 2023-06-27 10:30:00 Completed [facility] TDAP 2023-06-27 10:30:00 Completed [facility] Influenza Virus Vaccine (3+ yrs) 2023-06-27 10:30:00 Completed [facility] SARS-COV-2 COVID-19 PFIZER VACCINE 2023-06-27 10:30:00 Completed [facility] TDAP 2023-06-23 11:30:00 Completed [facility] Influenza Virus Vaccine (3+ yrs) 2023-06-23 11:30:00 Completed [facility] SARS-COV-2 COVID-19 PFIZER VACCINE 2023-06-23 11:30:00 Completed [facility] Influenza Virus Vaccine Quad .5 mL IM 6+ MO (FLUZONE/FLULAVAL/F LUARIX) 2023-06-23 11:30:00 Completed [facility] Pneumococcal Polysaccharide, PPSV23 (PNEUMOVAX) 2023-06-23 11:30:00 Completed [facility] Influenza Virus Vaccine Quad .5 mL IM 6+ MO (FLUZONE/FLULAVAL/F LUARIX) 2023-06-07 10:00:00 Completed [facility] Pneumococcal Polysaccharide, PPSV23 (PNEUMOVAX) 2023-06-07 10:00:00 Completed [facility] TDAP 2023-06-07 10:00:00 Completed [facility] Influenza Virus Vaccine (3+ yrs) 2023-06-07 10:00:00 Completed [facility] SARS-COV-2 COVID-19 PFIZER VACCINE 2023-06-07 10:00:00 Completed [facility] Influenza Virus Vaccine Quad .5 mL IM 6+ MO (FLUZONE/FLULAVAL/F LUARIX) 2023-05-30 00:00:00 Completed [facility] Pneumococcal Polysaccharide, PPSV23 (PNEUMOVAX) 2023-05-30 00:00:00 Completed [facility] TDAP 2023-05-30 00:00:00 Completed [facility] Influenza Virus Vaccine (3+ yrs) 2023-05-30 00:00:00 Completed [facility] SARS-COV-2 COVID-19 PFIZER VACCINE 2023-05-30 00:00:00 Completed [facility] Influenza Virus Vaccine Quad .5 mL IM 6+ MO (FLUZONE/FLULAVAL/F LUARIX) 2023-05-26 00:00:00 Completed [facility] Pneumococcal Polysaccharide, PPSV23 (PNEUMOVAX) 2023-05-26 00:00:00 Completed [facility] TDAP 2023-05-26 00:00:00 Completed [facility] Influenza Virus Vaccine (3+ yrs) 2023-05-26 00:00:00 Completed [facility] SARS-COV-2 COVID-19 PFIZER VACCINE 2023-05-26 00:00:00 Completed [facility] TDAP 2023-05-20 00:00:00 Completed [facility] Influenza Virus Vaccine (3+ yrs) 2023-05-20 00:00:00 Completed [facility] SARS-COV-2 COVID-19 PFIZER VACCINE 2023-05-20 00:00:00 Completed [facility] Influenza Virus Vaccine Quad .5 mL IM 6+ MO (FLUZONE/FLULAVAL/F LUARIX) 2023-05-20 00:00:00 Completed [facility] Pneumococcal Polysaccharide, PPSV23 (PNEUMOVAX) 2023-05-20 00:00:00 Completed [facility] TDAP 2023-04-28 00:00:00 Completed [facility] Influenza Virus Vaccine (3+ yrs) 2023-04-28 00:00:00 Completed [facility] SARS-COV-2 COVID-19 PFIZER VACCINE 2023-04-28 00:00:00 Completed [facility] Influenza Virus Vaccine Quad .5 mL IM 6+ MO (FLUZONE/FLULAVAL/F LUARIX) 2023-04-28 00:00:00 Completed [facility] Pneumococcal Polysaccharide, PPSV23 (PNEUMOVAX) 2023-04-28 00:00:00 Completed [facility] Influenza Virus Vaccine Quad .5 mL IM 6+ MO (FLUZONE/FLULAVAL/F LUARIX) 2023-04-26 00:00:00 Completed [facility] Pneumococcal Polysaccharide, PPSV23 (PNEUMOVAX) 2023-04-26 00:00:00 Completed [facility] TDAP 2023-04-26 00:00:00 Completed [facility] Influenza Virus Vaccine (3+ yrs) 2023-04-26 00:00:00 Completed [facility] SARS-COV-2 COVID-19 PFIZER VACCINE 2023-04-26 00:00:00 Completed [facility] Influenza Virus Vaccine Quad .5 mL IM 6+ MO (FLUZONE/FLULAVAL/F LUARIX) 2023-04-26 00:00:00 Completed [facility] Pneumococcal Polysaccharide, PPSV23 (PNEUMOVAX) 2023-04-26 00:00:00 Completed [facility] TDAP 2023-04-26 00:00:00 Completed [facility] Influenza Virus Vaccine (3+ yrs) 2023-04-26 00:00:00 Completed [facility] SARS-COV-2 COVID-19 PFIZER VACCINE 2023-04-26 00:00:00 Completed [facility] Influenza Virus Vaccine Quad .5 mL IM 6+ MO (FLUZONE/FLULAVAL/F LUARIX) 2023-04-19 00:00:00 Completed [facility] Pneumococcal Polysaccharide, PPSV23 (PNEUMOVAX) 2023-04-19 00:00:00 Completed [facility] TDAP 2023-04-19 00:00:00 Completed [facility] Influenza Virus Vaccine (3+ yrs) 2023-04-19 00:00:00 Completed [facility] SARS-COV-2 COVID-19 PFIZER VACCINE 2023-04-19 00:00:00 Completed [facility] Influenza Virus Vaccine Quad .5 mL IM 6+ MO (FLUZONE/FLULAVAL/F LUARIX) 2023-03-17 00:00:00 Completed [facility] Pneumococcal Polysaccharide, PPSV23 (PNEUMOVAX) 2023-03-17 00:00:00 Completed [facility] TDAP 2023-03-17 00:00:00 Completed [facility] Influenza Virus Vaccine (3+ yrs) 2023-03-17 00:00:00 Completed [facility] SARS-COV-2 COVID-19 PFIZER VACCINE 2023-03-17 00:00:00 Completed [facility] Influenza Virus Vaccine Quad .5 mL IM 6+ MO (FLUZONE/FLULAVAL/F LUARIX) 2023-03-11 10:15:00 Completed [facility] Pneumococcal Polysaccharide, PPSV23 (PNEUMOVAX) 2023-03-11 10:15:00 Completed [facility] TDAP 2023-03-11 10:15:00 Completed [facility] Influenza Virus Vaccine (3+ yrs) 2023-03-11 10:15:00 Completed [facility] SARS-COV-2 COVID-19 PFIZER VACCINE 2023-03-11 10:15:00 Completed [facility] Influenza Virus Vaccine Quad .5 mL IM 6+ MO (FLUZONE/FLULAVAL/F LUARIX) 2023-02-26 00:00:00 Completed [facility] Pneumococcal Polysaccharide, PPSV23 (PNEUMOVAX) 2023-02-26 00:00:00 Completed [facility] TDAP 2023-02-26 00:00:00 Completed [facility] Influenza Virus Vaccine (3+ yrs) 2023-02-26 00:00:00 Completed [facility] SARS-COV-2 COVID-19 PFIZER VACCINE 2023-02-26 00:00:00 Completed [facility] Influenza Virus Vaccine Quad .5 mL IM 6+ MO (FLUZONE/FLULAVAL/F LUARIX) 2023-02-23 00:00:00 Completed [facility] Pneumococcal Polysaccharide, PPSV23 (PNEUMOVAX) 2023-02-23 00:00:00 Completed [facility] TDAP 2023-02-23 00:00:00 Completed [facility] Influenza Virus Vaccine (3+ yrs) 2023-02-23 00:00:00 Completed [facility] SARS-COV-2 COVID-19 PFIZER VACCINE 2023-02-23 00:00:00 Completed [facility] Influenza Virus Vaccine Quad .5 mL IM 6+ MO (FLUZONE/FLULAVAL/F LUARIX) 2023-02-17 14:03:57 Completed [facility] Pneumococcal Polysaccharide, PPSV23 (PNEUMOVAX) 2023-02-17 14:03:57 Completed [facility] TDAP 2023-02-17 14:03:57 Completed [facility] Influenza Virus Vaccine (3+ yrs) 2023-02-17 14:03:57 Completed [facility] SARS-COV-2 COVID-19 PFIZER VACCINE 2023-02-17 14:03:57 Completed [facility] Influenza Virus Vaccine Quad .5 mL IM 6+ MO (FLUZONE/FLULAVAL/F LUARIX) 2023-02-17 00:00:00 Completed [facility] Pneumococcal Polysaccharide, PPSV23 (PNEUMOVAX) 2023-02-17 00:00:00 Completed [facility] TDAP 2023-02-17 00:00:00 Completed [facility] Influenza Virus Vaccine (3+ yrs) 2023-02-17 00:00:00 Completed [facility] SARS-COV-2 COVID-19 PFIZER VACCINE 2023-02-17 00:00:00 Completed [facility] Influenza Virus Vaccine Quad .5 mL IM 6+ MO (FLUZONE/FLULAVAL/F LUARIX) 2023-02-01 00:00:00 Completed [facility] Pneumococcal Polysaccharide, PPSV23 (PNEUMOVAX) 2023-02-01 00:00:00 Completed [facility] TDAP 2023-02-01 00:00:00 Completed [facility] Influenza Virus Vaccine (3+ yrs) 2023-02-01 00:00:00 Completed [facility] SARS-COV-2 COVID-19 PFIZER VACCINE 2023-02-01 00:00:00 Completed [facility] Influenza Virus Vaccine Quad .5 mL IM 6+ MO (FLUZONE/FLULAVAL/F LUARIX) 2023-01-27 00:00:00 Completed [facility] Pneumococcal Polysaccharide, PPSV23 (PNEUMOVAX) 2023-01-27 00:00:00 Completed [facility] TDAP 2023-01-27 00:00:00 Completed [facility] Influenza Virus Vaccine (3+ yrs) 2023-01-27 00:00:00 Completed [facility] SARS-COV-2 COVID-19 PFIZER VACCINE 2023-01-27 00:00:00 Completed [facility] Influenza Virus Vaccine Quad .5 mL IM 6+ MO (FLUZONE/FLULAVAL/F LUARIX) 2023-01-21 00:00:00 Completed [facility] Pneumococcal Polysaccharide, PPSV23 (PNEUMOVAX) 2023-01-21 00:00:00 Completed [facility] TDAP 2023-01-21 00:00:00 Completed [facility] Influenza Virus Vaccine (3+ yrs) 2023-01-21 00:00:00 Completed [facility] SARS-COV-2 COVID-19 PFIZER VACCINE 2023-01-21 00:00:00 Completed [facility] Influenza Virus Vaccine Quad .5 mL IM 6+ MO (FLUZONE/FLULAVAL/F LUARIX) 2023-01-21 00:00:00 Completed [facility] Pneumococcal Polysaccharide, PPSV23 (PNEUMOVAX) 2023-01-21 00:00:00 Completed [facility] TDAP 2023-01-21 00:00:00 Completed [facility] Influenza Virus Vaccine (3+ yrs) 2023-01-21 00:00:00 Completed [facility] SARS-COV-2 COVID-19 PFIZER VACCINE 2023-01-21 00:00:00 Completed [facility] Influenza Virus Vaccine Quad .5 mL IM 6+ MO (FLUZONE/FLULAVAL/F LUARIX) 2023-01-13 15:20:00 Completed [facility] Pneumococcal Polysaccharide, PPSV23 (PNEUMOVAX) 2023-01-13 15:20:00 Completed [facility] TDAP 2023-01-13 15:20:00 Completed [facility] Influenza Virus Vaccine (3+ yrs) 2023-01-13 15:20:00 Completed [facility] SARS-COV-2 COVID-19 PFIZER VACCINE 2023-01-13 15:20:00 Completed [facility] TDAP 2022-12-23 10:30:00 Completed [facility] Influenza Virus Vaccine (3+ yrs) 2022-12-23 10:30:00 Completed [facility] SARS-COV-2 COVID-19 PFIZER VACCINE 2022-12-23 10:30:00 Completed [facility] Influenza Virus Vaccine Quad .5 mL IM 6+ MO (FLUZONE/FLULAVAL/F LUARIX) 2022-12-23 10:30:00 Completed [facility] Pneumococcal Polysaccharide, PPSV23 (PNEUMOVAX) 2022-12-23 10:30:00 Completed [facility] Influenza Virus Vaccine Quad .5 mL IM 6+ MO (FLUZONE/FLULAVAL/F LUARIX) 2022-12-17 00:00:00 Completed [facility] Pneumococcal Polysaccharide, PPSV23 (PNEUMOVAX) 2022-12-17 00:00:00 Completed [facility] TDAP 2022-12-17 00:00:00 Completed [facility] Influenza Virus Vaccine (3+ yrs) 2022-12-17 00:00:00 Completed [facility] SARS-COV-2 COVID-19 PFIZER VACCINE 2022-12-17 00:00:00 Completed [facility] Influenza Virus Vaccine Quad .5 mL IM 6+ MO (FLUZONE/FLULAVAL/F LUARIX) 2022-12-17 00:00:00 Completed [facility] Pneumococcal Polysaccharide, PPSV23 (PNEUMOVAX) 2022-12-17 00:00:00 Completed [facility] TDAP 2022-12-17 00:00:00 Completed [facility] Influenza Virus Vaccine (3+ yrs) 2022-12-17 00:00:00 Completed [facility] SARS-COV-2 COVID-19 PFIZER VACCINE 2022-12-17 00:00:00 Completed [facility] Influenza Virus Vaccine Quad .5 mL IM 6+ MO (FLUZONE/FLULAVAL/F LUARIX) 2022-12-10 00:00:00 Completed [facility] Pneumococcal Polysaccharide, PPSV23 (PNEUMOVAX) 2022-12-10 00:00:00 Completed [facility] TDAP 2022-12-10 00:00:00 Completed [facility] Influenza Virus Vaccine (3+ yrs) 2022-12-10 00:00:00 Completed [facility] SARS-COV-2 COVID-19 PFIZER VACCINE 2022-12-10 00:00:00 Completed [facility] Influenza Virus Vaccine Quad .5 mL IM 6+ MO (FLUZONE/FLULAVAL/F LUARIX) 2022-12-06 10:00:00 Completed [facility] Pneumococcal Polysaccharide, PPSV23 (PNEUMOVAX) 2022-12-06 10:00:00 Completed [facility] TDAP 2022-12-06 10:00:00 Completed [facility] Influenza Virus Vaccine (3+ yrs) 2022-12-06 10:00:00 Completed [facility] SARS-COV-2 COVID-19 PFIZER VACCINE 2022-12-06 10:00:00 Completed [facility] Influenza Virus Vaccine Quad .5 mL IM 6+ MO (FLUZONE/FLULAVAL/F LUARIX) 2022 00:00:00 Completed [facility] Pneumococcal Polysaccharide, PPSV23 (PNEUMOVAX) 2022 00:00:00 Completed [facility] TDAP 2022 00:00:00 Completed [facility] Influenza Virus Vaccine (3+ yrs) 2022 00:00:00 Completed [facility] SARS-COV-2 COVID-19 PFIZER VACCINE 2022 00:00:00 Completed [facility] Influenza Virus Vaccine Quad .5 mL IM 6+ MO (FLUZONE/FLULAVAL/F LUARIX) 2022-12-01 00:00:00 Completed [facility] Pneumococcal Polysaccharide, PPSV23 (PNEUMOVAX) 2022-12-01 00:00:00 Completed [facility] TDAP 2022-12-01 00:00:00 Completed [facility] Influenza Virus Vaccine (3+ yrs) 2022-12-01 00:00:00 Completed [facility] SARS-COV-2 COVID-19 PFIZER VACCINE 2022-12-01 00:00:00 Completed [facility] Influenza Virus Vaccine Quad .5 mL IM 6+ MO (FLUZONE/FLULAVAL/F LUARIX) 2022-12-01 00:00:00 Completed [facility] Pneumococcal Polysaccharide, PPSV23 (PNEUMOVAX) 2022-12-01 00:00:00 Completed [facility] TDAP 2022-12-01 00:00:00 Completed [facility] Influenza Virus Vaccine (3+ yrs) 2022-12-01 00:00:00 Completed [facility] SARS-COV-2 COVID-19 PFIZER VACCINE 2022-12-01 00:00:00 Completed [facility] Influenza Virus Vaccine Quad .5 mL IM 6+ MO (FLUZONE/FLULAVAL/F LUARIX) 2022-11-19 00:00:00 Completed [facility] Pneumococcal Polysaccharide, PPSV23 (PNEUMOVAX) 2022-11-19 00:00:00 Completed [facility] TDAP 2022-11-19 00:00:00 Completed [facility] Influenza Virus Vaccine (3+ yrs) 2022-11-19 00:00:00 Completed [facility] SARS-COV-2 COVID-19 PFIZER VACCINE 2022-11-19 00:00:00 Completed [facility] Influenza Virus Vaccine Quad .5 mL IM 6+ MO (FLUZONE/FLULAVAL/F LUARIX) 2022-11-16 09:30:00 Completed [facility] Pneumococcal Polysaccharide, PPSV23 (PNEUMOVAX) 2022-11-16 09:30:00 Completed [facility] TDAP 2022-11-16 09:30:00 Completed [facility] Influenza Virus Vaccine (3+ yrs) 2022-11-16 09:30:00 Completed [facility] SARS-COV-2 COVID-19 PFIZER VACCINE 2022-11-16 09:30:00 Completed [facility] Influenza Virus Vaccine Quad .5 mL IM 6+ MO (FLUZONE/FLULAVAL/F LUARIX) 2022-11-01 10:30:00 Completed [facility] Pneumococcal Polysaccharide, PPSV23 (PNEUMOVAX) 2022-11-01 10:30:00 Completed [facility] TDAP 2022-11-01 10:30:00 Completed [facility] Influenza Virus Vaccine (3+ yrs) 2022-11-01 10:30:00 Completed [facility] Influenza Virus Vaccine Quad .5 mL IM 6+ MO (FLUZONE/FLULAVAL/F LUARIX) 2022-08-30 00:00:00 Completed [facility] Pneumococcal Polysaccharide, PPSV23 (PNEUMOVAX) 2022-08-30 00:00:00 Completed [facility] TDAP 2022-08-30 00:00:00 Completed [facility] Influenza Virus Vaccine (3+ yrs) 2022-08-30 00:00:00 Completed [facility] Influenza Virus Vaccine Quad .5 mL IM 6+ MO (FLUZONE/FLULAVAL/F LUARIX) 2022-07-09 00:00:00 Completed [facility] Pneumococcal Polysaccharide, PPSV23 (PNEUMOVAX) 2022-07-09 00:00:00 Completed [facility] TDAP 2022-07-09 00:00:00 Completed [facility] Influenza Virus Vaccine (3+ yrs) 2022-07-09 00:00:00 Completed [facility] Influenza Virus Vaccine Quad .5 mL IM 6+ MO (FLUZONE/FLULAVAL/F LUARIX) 2022-04-19 00:00:00 Completed [facility] Pneumococcal Polysaccharide, PPSV23 (PNEUMOVAX) 2022-04-19 00:00:00 Completed [facility] TDAP 2022-04-19 00:00:00 Completed [facility] Influenza Virus Vaccine (3+ yrs) 2022-04-19 00:00:00 Completed [facility] Influenza Virus Vaccine Quad .5 mL IM 6+ MO (FLUZONE/FLULAVAL/F LUARIX) 2021-12-25 00:00:00 Completed [facility] Pneumococcal Polysaccharide, PPSV23 (PNEUMOVAX) 2021-12-25 00:00:00 Completed [facility] TDAP 2021-12-25 00:00:00 Completed [facility] Influenza Virus Vaccine (3+ yrs) 2021-12-25 00:00:00 Completed [facility] Influenza Virus Vaccine Quad .5 mL IM 6+ MO (FLUZONE/FLULAVAL/F LUARIX) 2021-11-09 00:00:00 Completed [facility] Pneumococcal Polysaccharide, PPSV23 (PNEUMOVAX) 2021-11-09 00:00:00 Completed [facility] TDAP 2021-11-09 00:00:00 Completed [facility] Influenza Virus Vaccine (3+ yrs) 2021-11-09 00:00:00 Completed [facility] Influenza Virus Vaccine Quad .5 mL IM 6+ MO (FLUZONE/FLULAVAL/F LUARIX) 2021-11-04 00:00:00 Completed Influenza Virus Vaccine Quad .5 mL IM 6+ MO (FLUZONE/FLULAVAL/F LUARIX) 2021-07-14 00:00:00 Completed [facility] Pneumococcal Polysaccharide, PPSV23 (PNEUMOVAX) 2021-07-14 00:00:00 Completed [facility] TDAP 2021-07-14 00:00:00 Completed [facility] Influenza Virus Vaccine (3+ yrs) 2021-07-14 00:00:00 Completed [facility] Influenza Virus Vaccine Quad .5 mL IM 6+ MO (FLUZONE/FLULAVAL/F LUARIX) 2021-02-20 00:00:00 Completed [facility] Pneumococcal Polysaccharide, PPSV23 (PNEUMOVAX) 2021-02-20 00:00:00 Completed [facility] TDAP 2021-02-20 00:00:00 Completed [facility] Influenza Virus Vaccine (3+ yrs) 2021-02-20 00:00:00 Completed [facility] Influenza Virus Vaccine Quad .5 mL IM 6+ MO 2018-01-24 00:00:00 Completed [facility] Influenza Virus Vaccine Quad .5 mL IM 6+ MO 2018-01-24 00:00:00 Completed [facility] Influenza Virus Vaccine Quad .5 mL IM 6+ MO 2018-01-24 00:00:00 Completed [facility] Influenza Virus Vaccine Quad .5 mL IM 6+ MO 2018-01-24 00:00:00 Completed [facility] Influenza Virus Vaccine Quad .5 mL IM 6+ MO 2018-01-24 00:00:00 Completed [facility] Influenza Virus Vaccine Quad .5 mL IM 6+ MO 2018-01-24 00:00:00 Completed [facility] Influenza Virus Vaccine Quad .5 mL IM 6+ MO 2018-01-24 00:00:00 Completed [facility] Influenza Virus Vaccine Quad .5 mL IM 6+ MO 2018-01-24 00:00:00 Completed [facility] Influenza Virus Vaccine Quad .5 mL IM 6+ MO 2018-01-24 00:00:00 Completed [facility] Influenza Virus Vaccine Quad .5 mL IM 6+ MO 2018-01-24 00:00:00 Completed [facility] Influenza Virus Vaccine Quad .5 mL IM 6+ MO 2018-01-24 00:00:00 Completed [facility] Influenza Virus Vaccine Quad .5 mL IM 6+ MO 2018-01-24 00:00:00 Completed [facility] Influenza Virus Vaccine Quad .5 mL IM 6+ MO 2018-01-24 00:00:00 Completed [facility] Influenza Virus Vaccine Quad .5 mL IM 6+ MO 2018-01-24 00:00:00 Completed [facility] Influenza Virus Vaccine Quad .5 mL IM 6+ MO 2018-01-24 00:00:00 Completed [facility] Influenza Virus Vaccine Quad .5 mL IM 6+ MO 2018-01-24 00:00:00 Completed [facility] Influenza Virus Vaccine Quad .5 mL IM 6+ MO 2018-01-24 00:00:00 Completed [facility] Influenza Virus Vaccine Quad .5 mL IM 6+ MO 2018-01-24 00:00:00 Completed [facility] Influenza Virus Vaccine Quad .5 mL IM 6+ MO 2018-01-24 00:00:00 Completed [facility] Influenza Virus Vaccine Quad .5 mL IM 6+ MO 2018-01-24 00:00:00 Completed [facility] Influenza Virus Vaccine Quad .5 mL IM 6+ MO 2018-01-24 00:00:00 Completed [facility] Influenza Virus Vaccine Quad .5 mL IM 6+ MO 2018-01-24 00:00:00 Completed [facility] Influenza Virus Vaccine Quad .5 mL IM 6+ MO 2018-01-24 00:00:00 Completed [facility] Influenza Virus Vaccine Quad .5 mL IM 6+ MO 2018-01-24 00:00:00 Completed [facility] Influenza Virus Vaccine Quad .5 mL IM 6+ MO 2018-01-24 00:00:00 Completed [facility] Influenza Virus Vaccine Quad .5 mL IM 6+ MO (FLUZONE/FLULAVAL/F LUARIX) 2018-01-24 00:00:00 Completed [facility] Influenza Virus Vaccine Quad .5 mL IM 6+ MO (FLUZONE/FLULAVAL/F LUARIX) 2018-01-24 00:00:00 Completed [facility] Influenza Virus Vaccine Quad .5 mL IM 6+ MO (FLUZONE/FLULAVAL/F LUARIX) 2018-01-24 00:00:00 Completed [facility] Influenza Virus Vaccine Quad .5 mL IM 6+ MO (FLUZONE/FLULAVAL/F LUARIX) 2018-01-24 00:00:00 Completed [facility] Influenza Virus Vaccine Quad .5 mL IM 6+ MO (FLUZONE/FLULAVAL/F LUARIX) 2018-01-24 00:00:00 Completed [facility] Influenza Virus Vaccine Quad .5 mL IM 6+ MO (FLUZONE/FLULAVAL/F LUARIX) 2018-01-24 00:00:00 Completed [facility] Influenza Virus Vaccine Quad .5 mL IM 6+ MO (FLUZONE/FLULAVAL/F LUARIX) 2018-01-24 00:00:00 Completed [facility] TDAP 2013-02-07 00:00:00 Completed [facility] TDAP 2013-02-07 00:00:00 Completed [facility] TDAP 2013-02-07 00:00:00 Completed [facility] TDAP 2013-02-07 00:00:00 Completed [facility] TDAP 2013-02-07 00:00:00 Completed [facility] TDAP 2013-02-07 00:00:00 Completed [facility] TDAP 2013-02-07 00:00:00 Completed [facility] TDAP 2013-02-07 00:00:00 Completed [facility] TDAP 2013-02-07 00:00:00 Completed [facility] TDAP 2013-02-07 00:00:00 Completed [facility] TDAP 2013-02-07 00:00:00 Completed [facility] TDAP 2013-02-07 00:00:00 Completed [facility] TDAP 2013-02-07 00:00:00 Completed [facility] TDAP 2013-02-07 00:00:00 Completed [facility] TDAP 2013-02-07 00:00:00 Completed [facility] TDAP 2013-02-07 00:00:00 Completed [facility] TDAP 2013-02-07 00:00:00 Completed [facility] TDAP 2013-02-07 00:00:00 Completed [facility] TDAP 2013-02-07 00:00:00 Completed [facility] TDAP 2013-02-07 00:00:00 Completed [facility] TDAP 2013-02-07 00:00:00 Completed [facility] TDAP 2013-02-07 00:00:00 Completed [facility] TDAP 2013-02-07 00:00:00 Completed [facility] TDAP 2013-02-07 00:00:00 Completed [facility] TDAP 2013-02-07 00:00:00 Completed [facility] TDAP 2013-02-07 00:00:00 Completed [facility] TDAP 2013-02-07 00:00:00 Completed [facility] TDAP 2013-02-07 00:00:00 Completed [facility] TDAP 2013-02-07 00:00:00 Completed [facility] TDAP 2013-02-07 00:00:00 Completed [facility] TDAP 2013-02-07 00:00:00 Completed [facility] TDAP 2013-02-07 00:00:00 Completed [facility] Pneumococcal Polysaccharide, PPSV23 (PNEUMOVAX) 2012-02-22 00:00:00 Completed [facility] Pneumococcal Polysaccharide, PPSV23 (PNEUMOVAX) 2012-02-22 00:00:00 Completed [facility] Pneumococcal Polysaccharide, PPSV23 (PNEUMOVAX) 2012-02-22 00:00:00 Completed [facility] Pneumococcal Polysaccharide, PPSV23 (PNEUMOVAX) 2012-02-22 00:00:00 Completed [facility] Pneumococcal Polysaccharide, PPSV23 (PNEUMOVAX) 2012-02-22 00:00:00 Completed [facility] Pneumococcal Polysaccharide, PPSV23 (PNEUMOVAX) 2012-02-22 00:00:00 Completed [facility] Pneumococcal Polysaccharide, PPSV23 (PNEUMOVAX) 2012-02-22 00:00:00 Completed [facility] Pneumococcal Polysaccharide, PPSV23 (PNEUMOVAX) 2012-02-22 00:00:00 Completed [facility] Pneumococcal Polysaccharide, PPSV23 (PNEUMOVAX) 2012-02-22 00:00:00 Completed [facility] Pneumococcal Polysaccharide, PPSV23 (PNEUMOVAX) 2012-02-22 00:00:00 Completed [facility] Pneumococcal Polysaccharide, PPSV23 (PNEUMOVAX) 2012-02-22 00:00:00 Completed [facility] Pneumococcal Polysaccharide, PPSV23 (PNEUMOVAX) 2012-02-22 00:00:00 Completed [facility] Pneumococcal Polysaccharide, PPSV23 (PNEUMOVAX) 2012-02-22 00:00:00 Completed [facility] Pneumococcal Polysaccharide, PPSV23 (PNEUMOVAX) 2012-02-22 00:00:00 Completed [facility] Pneumococcal Polysaccharide, PPSV23 (PNEUMOVAX) 2012-02-22 00:00:00 Completed [facility] Pneumococcal Polysaccharide, PPSV23 (PNEUMOVAX) 2012-02-22 00:00:00 Completed [facility] Pneumococcal Polysaccharide, PPSV23 (PNEUMOVAX) 2012-02-22 00:00:00 Completed [facility] Pneumococcal Polysaccharide, PPSV23 (PNEUMOVAX) 2012-02-22 00:00:00 Completed [facility] Pneumococcal Polysaccharide, PPSV23 (PNEUMOVAX) 2012-02-22 00:00:00 Completed [facility] Pneumococcal Polysaccharide, PPSV23 (PNEUMOVAX) 2012-02-22 00:00:00 Completed [facility] Pneumococcal Polysaccharide, PPSV23 (PNEUMOVAX) 2012-02-22 00:00:00 Completed [facility] Pneumococcal Polysaccharide, PPSV23 (PNEUMOVAX) 2012-02-22 00:00:00 Completed [facility] Pneumococcal Polysaccharide, PPSV23 (PNEUMOVAX) 2012-02-22 00:00:00 Completed [facility] Pneumococcal Polysaccharide, PPSV23 (PNEUMOVAX) 2012-02-22 00:00:00 Completed [facility] Pneumococcal Polysaccharide, PPSV23 (PNEUMOVAX) 2012-02-22 00:00:00 Completed [facility] Pneumococcal Polysaccharide, PPSV23 (PNEUMOVAX) 2012-02-22 00:00:00 Completed [facility] Pneumococcal Polysaccharide, PPSV23 (PNEUMOVAX) 2012-02-22 00:00:00 Completed [facility] Pneumococcal Polysaccharide, PPSV23 (PNEUMOVAX) 2012-02-22 00:00:00 Completed [facility] Pneumococcal Polysaccharide, PPSV23 (PNEUMOVAX) 2012-02-22 00:00:00 Completed [facility] Pneumococcal Polysaccharide, PPSV23 (PNEUMOVAX) 2012-02-22 00:00:00 Completed [facility] Pneumococcal Polysaccharide, PPSV23 (PNEUMOVAX) 2012-02-22 00:00:00 Completed [facility] Pneumococcal Polysaccharide, PPSV23 (PNEUMOVAX) 2012-02-22 00:00:00 Completed [facility] Influenza Virus Vaccine (3+ yrs) 2010-11-07 00:00:00 Completed [facility] Influenza Virus Vaccine (3+ yrs) 2010-11-07 00:00:00 Completed [facility] Influenza Virus Vaccine (3+ yrs) 2010-11-07 00:00:00 Completed [facility] Influenza Virus Vaccine (3+ yrs) 2010-11-07 00:00:00 Completed [facility] Influenza Virus Vaccine (3+ yrs) 2010-11-07 00:00:00 Completed [facility] Influenza Virus Vaccine (3+ yrs) 2010-11-07 00:00:00 Completed [facility] Influenza Virus Vaccine (3+ yrs) 2010-11-07 00:00:00 Completed [facility] Influenza Virus Vaccine (3+ yrs) 2010-11-07 00:00:00 Completed [facility] Influenza Virus Vaccine (3+ yrs) 2010-11-07 00:00:00 Completed [facility] Influenza Virus Vaccine (3+ yrs) 2010-11-07 00:00:00 Completed [facility] Influenza Virus Vaccine (3+ yrs) 2010-11-07 00:00:00 Completed [facility] Influenza Virus Vaccine (3+ yrs) 2010-11-07 00:00:00 Completed [facility] Influenza Virus Vaccine (3+ yrs) 2010-11-07 00:00:00 Completed [facility] Influenza Virus Vaccine (3+ yrs) 2010-11-07 00:00:00 Completed [facility] Influenza Virus Vaccine (3+ yrs) 2010-11-07 00:00:00 Completed [facility] Influenza Virus Vaccine (3+ yrs) 2010-11-07 00:00:00 Completed [facility] Influenza Virus Vaccine (3+ yrs) 2010-11-07 00:00:00 Completed [facility] Influenza Virus Vaccine (3+ yrs) 2010-11-07 00:00:00 Completed [facility] Influenza Virus Vaccine (3+ yrs) 2010-11-07 00:00:00 Completed [facility] Influenza Virus Vaccine (3+ yrs) 2010-11-07 00:00:00 Completed [facility] Influenza Virus Vaccine (3+ yrs) 2010-11-07 00:00:00 Completed [facility] Influenza Virus Vaccine (3+ yrs) 2010-11-07 00:00:00 Completed [facility] Influenza Virus Vaccine (3+ yrs) 2010-11-07 00:00:00 Completed [facility] Influenza Virus Vaccine (3+ yrs) 2010-11-07 00:00:00 Completed [facility] Influenza Virus Vaccine (3+ yrs) 2010-11-07 00:00:00 Completed [facility] Influenza Virus Vaccine (3+ yrs) 2010-11-07 00:00:00 Completed [facility] Influenza Virus Vaccine (3+ yrs) 2010-11-07 00:00:00 Completed [facility] Influenza Virus Vaccine (3+ yrs) 2010-11-07 00:00:00 Completed [facility] Influenza Virus Vaccine (3+ yrs) 2010-11-07 00:00:00 Completed [facility] Influenza Virus Vaccine (3+ yrs) 2010-11-07 00:00:00 Completed [facility] Influenza Virus Vaccine (3+ yrs) 2010-11-07 00:00:00 Completed [facility] Influenza Virus Vaccine (3+ yrs) 2010-11-07 00:00:00 Completed [facility] Pneumococcal Polysaccharide, PPSV23 (PNEUMOVAX) 2006-11-14 00:00:00 Completed [facility] Pneumococcal Polysaccharide, PPSV23 (PNEUMOVAX) 2006-11-14 00:00:00 Completed [facility] Pneumococcal Polysaccharide, PPSV23 (PNEUMOVAX) 2006-11-14 00:00:00 Completed [facility] Pneumococcal Polysaccharide, PPSV23 (PNEUMOVAX) 2006-11-14 00:00:00 Completed [facility] Pneumococcal Polysaccharide, PPSV23 (PNEUMOVAX) 2006-11-14 00:00:00 Completed [facility] Pneumococcal Polysaccharide, PPSV23 (PNEUMOVAX) 2006-11-14 00:00:00 Completed [facility] Pneumococcal Polysaccharide, PPSV23 (PNEUMOVAX) 2006-11-14 00:00:00 Completed [facility] Pneumococcal Polysaccharide, PPSV23 (PNEUMOVAX) 2006-11-14 00:00:00 Completed [facility] Pneumococcal Polysaccharide, PPSV23 (PNEUMOVAX) 2006-11-14 00:00:00 Completed [facility] Pneumococcal Polysaccharide, PPSV23 (PNEUMOVAX) 2006-11-14 00:00:00 Completed [facility] Pneumococcal Polysaccharide, PPSV23 (PNEUMOVAX) 2006-11-14 00:00:00 Completed [facility] Pneumococcal Polysaccharide, PPSV23 (PNEUMOVAX) 2006-11-14 00:00:00 Completed [facility] Pneumococcal Polysaccharide, PPSV23 (PNEUMOVAX) 2006-11-14 00:00:00 Completed [facility] Pneumococcal Polysaccharide, PPSV23 (PNEUMOVAX) 2006-11-14 00:00:00 Completed [facility] Pneumococcal Polysaccharide, PPSV23 (PNEUMOVAX) 2006-11-14 00:00:00 Completed [facility] Pneumococcal Polysaccharide, PPSV23 (PNEUMOVAX) 2006-11-14 00:00:00 Completed [facility] Pneumococcal Polysaccharide, PPSV23 (PNEUMOVAX) 2006-11-14 00:00:00 Completed [facility] Pneumococcal Polysaccharide, PPSV23 (PNEUMOVAX) 2006-11-14 00:00:00 Completed [facility] Pneumococcal Polysaccharide, PPSV23 (PNEUMOVAX) 2006-11-14 00:00:00 Completed [facility] Pneumococcal Polysaccharide, PPSV23 (PNEUMOVAX) 2006-11-14 00:00:00 Completed [facility] Pneumococcal Polysaccharide, PPSV23 (PNEUMOVAX) 2006-11-14 00:00:00 Completed [facility] Pneumococcal Polysaccharide, PPSV23 (PNEUMOVAX) 2006-11-14 00:00:00 Completed [facility] Pneumococcal Polysaccharide, PPSV23 (PNEUMOVAX) 2006-11-14 00:00:00 Completed [facility] Pneumococcal Polysaccharide, PPSV23 (PNEUMOVAX) 2006-11-14 00:00:00 Completed [facility] Pneumococcal Polysaccharide, PPSV23 (PNEUMOVAX) 2006-11-14 00:00:00 Completed [facility] Pneumococcal Polysaccharide, PPSV23 (PNEUMOVAX) 2006-11-14 00:00:00 Completed [facility] Pneumococcal Polysaccharide, PPSV23 (PNEUMOVAX) 2006-11-14 00:00:00 Completed [facility] Pneumococcal Polysaccharide, PPSV23 (PNEUMOVAX) 2006-11-14 00:00:00 Completed [facility] Pneumococcal Polysaccharide, PPSV23 (PNEUMOVAX) 2006-11-14 00:00:00 Completed [facility] Pneumococcal Polysaccharide, PPSV23 (PNEUMOVAX) 2006-11-14 00:00:00 Completed [facility] Pneumococcal Polysaccharide, PPSV23 (PNEUMOVAX) 2006-11-14 00:00:00 Completed [facility] Pneumococcal Polysaccharide, PPSV23 (PNEUMOVAX) 2006-11-14 00:00:00 Completed [facility] Pneumococcal Polysaccharide, PPSV23 (PNEUMOVAX) 2006-11-14 00:00:00 Completed Vital Signs Vital Name Observation Time Observation Value Comments S ource Systolic blood pressure 2023-11-23 16:26:00 122 mm[Hg] [facility] Diastolic blood pressure 2023-11-23 16:26:00 63 mm[Hg] [facility] Heart rate 2023-11-23 16:26:00 91 /min [facility] Respiratory rate 2023-11-23 16:26:00 18 /min [facility] Body height 2023-11-23 16:26:00 175.3 cm [facility] Body weight 2023-11-23 16:26:00 84.142 kg [facility] BMI 2023-11-23 16:26:00 27.39 kg/m2 [facility] Body height 2023-09-20 15:32:00 175.3 cm [facility] Body weight 2023-09-20 15:32:00 79.788 kg [facility] BMI 2023-09-20 15:32:00 25.98 kg/m2 [facility] Systolic blood pressure 2023-09-09 19:45:00 142 mm[Hg] [facility] Diastolic blood pressure 2023-09-09 19:45:00 83 mm[Hg] [facility] Heart rate 2023-09-09 19:45:00 91 /min [facility] Respiratory rate 2023-09-09 19:45:00 15 /min [facility] Body weight 2023-09-09 14:08:00 81.647 kg [facility] BMI 2023-09-09 14:08:00 26.58 kg/m2 [facility] Oxygen saturation in Arterial blood by Pulse oximetry 2023-09-09 14:08:00 98 /min [facility] Systolic blood pressure 2023-09-09 19:45:00 142 mm[Hg] [facility] Diastolic blood pressure 2023-09-09 19:45:00 83 mm[Hg] [facility] Heart rate 2023-09-09 19:45:00 91 /min [facility] Respiratory rate 2023-09-09 19:45:00 15 /min [facility] Body weight 2023-09-09 14:08:00 81.647 kg [facility] BMI 2023-09-09 14:08:00 26.58 kg/m2 [facility] Oxygen saturation in Arterial blood by Pulse oximetry 2023-09-09 14:08:00 98 /min [facility] Systolic blood pressure 2023-08-22 12:35:00 163 mm[Hg] [facility] Diastolic blood pressure 2023-08-22 12:35:00 108 mm[Hg] [facility] Heart rate 2023-08-22 12:35:00 106 /min [facility] Body temperature 2023-08-22 12:35:00 35.78 Andreina [facility] Respiratory rate 2023-08-22 12:35:00 18 /min [facility] Oxygen saturation in Arterial blood by Pulse oximetry 2023-08-22 12:35:00 98 /min [facility] Body height 2023-08-19 22:10:00 175.3 cm [facility] Body weight 2023-08-19 22:10:00 81.965 kg [facility] BMI 2023-08-19 22:10:00 26.68 kg/m2 [facility] Systolic blood pressure 2023-08-19 13:50:00 158 mm[Hg] [facility] Diastolic blood pressure 2023-08-19 13:50:00 86 mm[Hg] [facility] Heart rate 2023-08-19 13:50:00 90 /min [facility] Respiratory rate 2023-08-19 13:50:00 14 /min [facility] Oxygen saturation in Arterial blood by Pulse oximetry 2023-08-19 13:50:00 100 /min [facility] Body weight 2023-08-19 12:00:00 80.287 kg [facility] BMI 2023-08-19 12:00:00 26.68 kg/m2 [facility] Systolic blood pressure 2023-06-27 15:43:00 100 mm[Hg] [facility] Diastolic blood pressure 2023-06-27 15:43:00 53 mm[Hg] [facility] Heart rate 2023-06-27 15:43:00 68 /min [facility] Respiratory rate 2023-06-27 15:43:00 18 /min [facility] Body height 2023-06-27 15:43:00 175.3 cm [facility] Body weight 2023-06-27 15:43:00 80.695 kg [facility] BMI 2023-06-27 15:43:00 26.27 kg/m2 [facility] Systolic blood pressure 2023-06-23 16:36:00 117 mm[Hg] [facility] Diastolic blood pressure 2023-06-23 16:36:00 54 mm[Hg] [facility] Heart rate 2023-06-23 16:36:00 73 /min [facility] Body height 2023-06-23 16:36:00 175.3 cm [facility] Body weight 2023-06-23 16:36:00 82.01 kg [facility] BMI 2023-06-23 16:36:00 26.70 kg/m2 [facility] Systolic blood pressure 2023-06-07 14:42:00 109 mm[Hg] [facility] Diastolic blood pressure 2023-06-07 14:42:00 66 mm[Hg] [facility] Heart rate 2023-06-07 14:42:00 64 /min [facility] Body temperature 2023-06-07 14:42:00 36.11 [facility] Body height 2023-06-07 14:42:00 175.3 cm [facility] Body weight 2023-06-07 14:42:00 83.008 kg [facility] BMI 2023-06-07 14:42:00 27.02 kg/m2 [facility] Oxygen saturation in Arterial blood by Pulse oximetry 2023-06-07 14:42:00 97 /min [facility] Systolic blood pressure 2023-01-13 20:40:00 133 mm[Hg] [facility] Diastolic blood pressure 2023-01-13 20:40:00 72 mm[Hg] [facility] Heart rate 2023-01-13 20:40:00 64 /min [facility] Body temperature 2023-01-13 20:40:00 36.56 [facility] [place] Respiratory rate 2023-01-13 20:40:00 18 /min [facility] Body height 2023-01-13 20:40:00 175.3 cm [facility] Body weight 2023-01-13 20:40:00 88.497 kg [facility] BMI 2023-01-13 20:40:00 28.81 kg/m2 [facility] Oxygen saturation in Arterial blood by Pulse oximetry 2023-01-13 20:40:00 98 /min [facility] Systolic blood pressure 2022-12-23 16:42:00 115 mm[Hg] [facility] Diastolic blood pressure 2022-12-23 16:42:00 66 mm[Hg] [facility] Heart rate 2022-12-23 16:42:00 60 /min [facility] Body temperature 2022-12-23 16:42:00 36.11 [facility] [place] Body height 2022-12-23 16:42:00 175.3 cm [facility] Body weight 2022-12-23 16:42:00 87.726 kg [facility] BMI 2022-12-23 16:42:00 28.56 kg/m2 [facility] Oxygen saturation in Arterial blood by Pulse oximetry 2022-12-23 16:42:00 99 /min [facility] Systolic blood pressure 2022-11-16 14:11:00 123 mm[Hg] [facility] Diastolic blood pressure 2022-11-16 14:11:00 61 mm[Hg] [facility] Heart rate 2022-11-16 14:11:00 65 /min [facility] Body temperature 2022-11-16 14:11:00 36.61 Andreina [facility] Respiratory rate 2022-11-16 14:11:00 18 /min [facility] Body height 2022-11-16 14:11:00 175.3 cm [facility] Body weight 2022-11-16 14:11:00 85.73 kg [facility] BMI 2022-11-16 14:11:00 27.91 kg/m2 [facility] Body height 2022-11-01 15:20:00 175.3 cm [facility] Systolic blood pressure 2022-10-26 16:18:00 109 mm[Hg] [facility] Diastolic blood pressure 2022-10-26 16:18:00 59 mm[Hg] [facility] Heart rate 2022-10-26 16:18:00 66 /min [facility] Body temperature 2022-10-26 16:18:00 36.11 Andreina [facility] Body height 2022-10-26 16:18:00 175.3 cm [facility] Body weight 2022-10-26 16:18:00 88.134 kg [facility] BMI 2022-10-26 16:18:00 28.69 kg/m2 [facility] Oxygen saturation in Arterial blood by Pulse oximetry 2022-10-26 16:18:00 97 /min [facility] Body height 2022-09-16 18:44:00 175.3 cm [facility] Systolic blood pressure 2022-09-02 14:05:00 132 mm[Hg] [facility] Diastolic blood pressure 2022-09-02 14:05:00 79 mm[Hg] [facility] Heart rate 2022-09-02 14:05:00 64 /min [facility] Body temperature 2022-09-02 14:05:00 36.28 Andreina [facility] Respiratory rate 2022-09-02 14:05:00 18 /min [facility] Body height 2022-09-02 14:05:00 175.3 cm [facility] Body weight 2022-09-02 14:05:00 89.812 kg [facility] BMI 2022-09-02 14:05:00 29.24 kg/m2 [facility] Oxygen saturation in Arterial blood by Pulse oximetry 2022-09-02 14:05:00 96 /min [facility] Systolic blood pressure 2022-08-24 16:59:00 122 mm[Hg] [facility] Diastolic blood pressure 2022-08-24 16:59:00 78 mm[Hg] [facility] Heart rate 2022-08-24 16:59:00 64 /min [facility] [facility] Body temperature 2022-08-24 16:59:00 36.11 Andreina [facility] Body height 2022-08-24 16:59:00 175.3 cm [facility] Body weight 2022-08-24 16:59:00 88.996 kg [facility] BMI 2022-08-24 16:59:00 28.97 kg/m2 [facility] Oxygen saturation in Arterial blood by Pulse oximetry 2022-08-24 16:59:00 98 /min [facility] Systolic blood pressure 2022-02-11 17:42:00 133 mm[Hg] [facility] Diastolic blood pressure 2022-02-11 17:42:00 68 mm[Hg] [facility] Heart rate 2022-02-11 17:42:00 60 /min [facility] Body height 2022-02-11 17:42:00 175.3 cm [facility] Body weight 2022-02-11 17:42:00 92.625 kg [facility] BMI 2022-02-11 17:42:00 30.16 kg/m2 [facility] Oxygen saturation in Arterial blood by Pulse oximetry 2022-02-11 17:42:00 97 /min [facility] Systolic blood pressure 2022-02-09 18:02:00 131 mm[Hg] [facility] Diastolic blood pressure 2022-02-09 18:02:00 71 mm[Hg] [facility] Heart rate 2022-02-09 18:02:00 66 /min [facility] Body temperature 2022-02-09 18:02:00 36.5 Andreina [facility] Respiratory rate 2022-02-09 18:02:00 16 /min [facility] Body height 2022-02-09 18:02:00 175.3 cm [facility] Body weight 2022-02-09 18:02:00 92.08 kg [facility] BMI 2022-02-09 18:02:00 29.98 kg/m2 [facility] Oxygen saturation in Arterial blood by Pulse oximetry 2022-02-09 18:02:00 95 /min [facility] Systolic blood pressure 2021-12-31 19:06:00 128 mm[Hg] [facility] Diastolic blood pressure 2021-12-31 19:06:00 66 mm[Hg] [facility] Heart rate 2021-12-31 19:06:00 81 /min [facility] Body temperature 2021-12-31 19:06:00 36.28 Andreina [facility] Respiratory rate 2021-12-31 19:06:00 18 /min [facility] Oxygen saturation in Arterial blood by Pulse oximetry 2021-12-31 19:06:00 98 /min [facility] Body height 2021-12-29 00:08:00 175.3 cm [facility] Body weight 2021-12-29 00:08:00 94.7 kg [facility] BMI 2021-12-29 00:08:00 30.83 kg/m2 [facility] Systolic blood pressure 2021-12-28 11:15:00 159 mm[Hg] [facility] Diastolic blood pressure 2021-12-28 11:15:00 86 mm[Hg] [facility] Heart rate 2021-12-28 11:15:00 80 /min [facility] Body temperature 2021-12-28 11:15:00 36.33 Andreina [facility] Respiratory rate 2021-12-28 11:15:00 16 /min [facility] Body height 2021-12-28 11:15:00 175.3 cm [facility] Body weight 2021-12-28 11:15:00 94.7 kg [facility] BMI 2021-12-28 11:15:00 30.83 kg/m2 [facility] Systolic blood pressure 2021-10-27 20:05:00 148 mm[Hg] [facility] Diastolic blood pressure 2021-10-27 20:05:00 86 mm[Hg] [facility] Heart rate 2021-10-27 20:05:00 66 /min [facility] Body temperature 2021-10-27 20:05:00 36.44 Andreina [facility] Respiratory rate 2021-10-27 20:05:00 16 /min [facility] Body height 2021-10-27 20:05:00 175.3 cm [facility] Body weight 2021-10-27 20:05:00 94.802 kg [facility] BMI 2021-10-27 20:05:00 30.86 kg/m2 [facility] Oxygen saturation in Arterial blood by Pulse oximetry 2021-10-27 20:05:00 96 /min [facility] Systolic blood pressure 2021-09-29 19:58:00 136 mm[Hg] [facility] Diastolic blood pressure 2021-09-29 19:58:00 75 mm[Hg] [facility] Heart rate 2021-09-29 19:58:00 72 /min [facility] Respiratory rate 2021-09-29 19:58:00 18 /min [facility] Body height 2021-09-29 19:58:00 175.3 cm [facility] Body weight 2021-09-29 19:58:00 95.165 kg [facility] BMI 2021-09-29 19:58:00 30.98 kg/m2 [facility] Oxygen saturation in Arterial blood by Pulse oximetry 2021-09-29 19:58:00 97 /min [place] [facility] Procedures Procedure Date / Time Performed Performing Clinician Source CATH PROCEDURE LOG 2023-09-09 19:10:47 Doctor Unassigned, [place] [facility] CATH PROCEDURE LOG 2023-09-09 19:10:47 Doctor Unassigned, [place] [facility] ELECTROPHYSIOLOGY PROCEDURE 2023-09-09 18:52:54 Jim Carrillo [facility] COVID-19 (ID NOW RAPID TESTING) 2023-09-09 16:01:00 Baldemar Melara [facility] LAB ONLY COVID INTERPRETATION 2023-09-09 16:01:00 Baldemar Melara [facility] COVID-19 (ID NOW RAPID TESTING) 2023-09-09 16:01:00 Baldemar Melara [facility] LAB ONLY COVID INTERPRETATION 2023-09-09 16:01:00 Baldemar Melara [facility] CBC WITH DIFF 2023-09-09 14:07:00 Jim Carrillo [facility] PROTHROMBIN TIME / INR 2023-09-09 14:07:00 Jim Carrillo [facility] HB ABO GROUPING 2023-09-09 14:07:00 Jim Carrillo [facility] CBC WITH DIFF 2023-09-09 14:07:00 Jim Carrillo [facility] PROTHROMBIN TIME / INR 2023-09-09 14:07:00 [facility] 2023-09-09 14:07:00 Jim Carrillo [facility] ELECTROPHYSIOLOGY PROCEDURE 2023-08-23 15:29:52 Jim Carrillo [facility] EXTRA TUBE SST 2023-08-22 10:47[facility] 2023-08-22 10:47:00 RodrickClintonna [facility] MAGNESIUM 2023-08-22 10:11:00 Ryne [facility] BASIC METABOLIC PANEL (NA, K, CL, CO2, GLUCOSE, BUN, CREATININE, CA) 2023-08-22 10:11:00 Ryne [facility] CBC WITHOUT DIFF 2023-08-22 10:11:00 Ryne [facility] MAGNESIUM 2023-08-22 10:11:00 Ryne [facility] BASIC METABOLIC PANEL (NA, K, CL, CO2, GLUCOSE, BUN, CREATININE, CA) 2023-08-22 10:11:00 Ryne [facility] CBC WITHOUT DIFF 2023-08-22 10:11:00 Ryne [facility] CBC WITH DIFF 2023-08-21 18:51:00 Watson [facility] CBC WITH DIFF 2023-08-21 18:51:00 Watson [facility] EXTRA TUBE SST 2023-08-21 10:48:00 Rodrick [facility] EXTRA TUBE SST 2023-08-21 10:48:00 Rodrick [facility] MAGNESIUM 2023-08-21 10:32:00 Watson [facility] BASIC METABOLIC PANEL (NA, K, CL, CO2, GLUCOSE, BUN, CREATININE, CA) 2023-08-21 10:32:00 Watson [facility] CBC WITH DIFF 2023-08-21 10:32:00 Watson [facility] MAGNESIUM 2023-08-21 10:32:00 Watson [facility] BASIC METABOLIC PANEL (NA, K, CL, CO2, GLUCOSE, BUN, CREATININE, CA) 2023-08-21 10:32:00 Watson [facility] CBC WITH DIFF 2023-08-21 10:32:00 Watson [facility] PREPARE PACKED RBC 2023-08-21 06:00:05 Harshil Wright [facility] PREPARE PACKED RBC 2023-08-21 06:00:05 Harshil Wright [facility] CBC WITH DIFF 2023-08-21 02:20:00 Masbrenda [facility] CBC WITH DIFF 2023-08-21 02:20:00 Masuda [facility] MAGNESIUM 2023-08-20 20:09:00 Masuda [facility] BASIC METABOLIC PANEL (NA, K, CL, CO2, GLUCOSE, BUN, CREATININE, CA) 2023-08-20 20:09:00 Jessicauda [facility] CBC WITH DIFF 2023-08-20 20:09:00 Masuda [facility] MAGNESIUM 2023-08-20 20:09:00 Masuda [facility] BASIC METABOLIC PANEL (NA, K, CL, CO2, GLUCOSE, BUN, CREATININE, CA) 2023-08-20 20:09:00 Jessicauda [facility] CBC WITH DIFF 2023-08-20 20:09:00 Watson [facility] EXTRA TUBE SST 2023-08-20 02:31:00 [facility] EXTRA TUBE SST 2023-08-20 02:31:00 [facility] BASIC METABOLIC PANEL (NA, K, CL, CO2, GLUCOSE, BUN, CREATININE, CA) 2023-08-20 02:30:00 Harshil Wright [facility] BASIC METABOLIC PANEL (NA, K, CL, CO2, GLUCOSE, BUN, CREATININE, CA) 2023-08-20 02:30:00 Harshil Wright [facility] CBC WITH DIFF 2023-08-20 02:24:00 Masbrenda [facility] CBC WITH DIFF 2023-08-20 02:24:00 Watson [facility] PREPARE PACKED RBC 2023-08-19 19:38:09 [facility] PREPARE PACKED RBC 2023-08-19 19:38:09 [facility] IRON PANEL 2023-08-19 15:01:00 [facility] DIFF CONSULT BY PATHOLOGIST 2023-08-19 15:01:00 [facility] CBC WITH DIFF 2023-08-19 15:01:00 [facility] HB ABO GROUPING 2023-08-19 15:01:00 [facility] DIFF CONSULT INTERPRETATION 2023-08-19 15:01:00 [facility] IRON PANEL 2023-08-19 15:01:00 [facility] DIFF CONSULT BY PATHOLOGIST 2023-08-19 15:01:00 [facility] CBC WITH DIFF 2023-08-19 15:01:00 [facility] HB ABO GROUPING 2023-08-19 15:01:00 [facility] DIFF CONSULT INTERPRETATION 2023-08-19 15:01:00 [facility] FERRITIN SERUM 2023-08-19 12:51:00 [facility] VITAMIN B12, LEVEL 2023-08-19 12:51:00 [facility] FOLATE 2023-08-19 12:51:00 [facility] HEPATIC FUNCTION PANEL (52404) (ALB,T.PRO,BILI T,BU/BC,ALT,AST,ALK PHOS) 2023-08-19 12:51:00 [facility] BASIC METABOLIC PANEL (NA, K, CL, CO2, GLUCOSE, BUN, CREATININE, CA) 2023-08-19 12:51:00 [facility] WITH [facility]FF 2023-08-19 12:51:00 Tristan [facility] RETICULOCYTES AUTOMATED 2023-08-19 12:51:00 [facility], [facility] FERRITIN SERUM 2023-08-19 12:51:00 [facility], [facility] VITAMIN B12, LEVEL 2023-08-19 12:51:00 [facility] FOLATE 2023-08-19 12:51:00 [facility] HEPATIC FUNCTION PANEL (37179) (ALB,T.PRO,BILI T,BU/BC,ALT,AST,ALK PHOS) 2023-08-19 12:51:00 [facility] BASIC METABOLIC PANEL (NA, K, CL, CO2, GLUCOSE, BUN, CREATININE, CA) 2023-08-19 12:51:00 [facility] WITH DIFF 2023-08-19 12:51:00 Tristan [facility] RETICULOCYTES AUTOMATED 2023-08-19 12:51:00 [facility] INSURANCE CORRESPONDENCE 2023-04-26 05:01:00 Doctor Unassigned, [place] [facility] CONSENT/REFUSAL FOR DIAGNOSIS AND TREATMENT 2023-02-17 20:03:30 Doctor Unassigned, [place] [facility] HB ECG ROUTINE & RHYTHM STRIP 2023-01-13 20:42:56 Irais Benson [facility] INSURANCE CORRESPONDENCE 2022-12-17 06:01:00 Doctor Unassigned, [place] [facility] INSURANCE CORRESPONDENCE 2022-12-01 05:01:00 Doctor Unassigned, [place] [facility] PATIENT FINANCIAL POLICY 2022-10-07 14:51:25 Doctor Unassigned, [place] [facility] ASSIGNMENT OF BENEFITS 2022-02-09 16:56:29 Doctor Unassigned, [place] [facility] COVID-19 (ID NOW RAPID TESTING) 2021-12-30 23:26:00 Gail Herrera [facility] LAB ONLY COVID INTERPRETATION 2021-12-30 23:26:00 Gail Herrera [facility] XR CHEST 1 VW 2021-12-30 16:29:00 Brandon Elliott [facility] CREATININE 2021-12-30 00:42:00 Gail Herrera [facility] XR CHEST 1 VW 2021-12-29 14:02:00 Toby Escobar [facility] XR CHEST 1 VW 2021-12-29 14:02:00 Toby Escobar [facility] INTUBATION 2021-12-28 13:26:00 Danny Sun [facility] LAPAROSCOPIC ASSISTED ROBOTIC ABDOMINAL WALL RECONSTRUCTION 2021-12-28 12:54:00 Dagoberto Shaw [facility] LAPAROSCOPIC ASSISTED ROBOTIC ABDOMINAL WALL RECONSTRUCTION 2021-12-28 12:54:00 Dagoberto Shaw [facility] DAY SURGERY - [place] 2021-12-28 06:01:00 Doctor Unassigned, [place] [facility] DISCLOSURE AND CONSENT, MEDICAL AND SURGICAL PROCEDURES 2021-10-27 05:01:00 Doctor Unassigned, [place] [facility] Encounters Start Date/Time End Date/Time Encounter Type Admission Type Attending [facility] Facility Care Department Encounter ID Source 2023-06-24 09:06:09 Inpatient WANDA SOTO [facility] [id number] [facility] 2021-02-13 11:35:03 Outpatient R [facility] [id number] [facility] 2020-12-08 19:25:54 [id number] 2020-12-08 13:57:37 [facility] [id number] 2020-12-08 04:00:00 Emergency [facility] [id number] [facility] 2020-12-07 10:52:27 Emergency X [facility] [id number] [facility] ity [facility] 2020-12-07 10:51:36 Emergency [facility] [id number] [facility] 2020-12-07 05:39:59 Emergency [facility] [id number] [facility] 2020-12-06 07:40:04 Emergency [facility] [id number] [facility] 2020-12-05 20:55:47 Emergency [facility] [id number] [facility] 2020-12-05 20:13:24 Emergency [facility] [id number] [facility] 2020-12-05 19:07:25 Emergency [facility] [id number] [facility] 2020-12-05 18:41:54 Emergency [facility] [id number] [facility] 2024-04-04 08:48:20 2024-04-04 23:59:00 Outpatient R LORRI CARRILLO CHOCKALINGA M [facility] [id number] [facility] 2024-04-04 08:48:20 2024-04-04 23:59:00 Hospital Encounter Lorri Carrillo [facility] 1.2.840.114 350.1.13.10 4.2.7.2.686 [id number] [facility] 2024-03-29 00:00:00 2024-03-29 00:00:00 Outpatient LORRI ZARATE CHOCKALINGA M [facility] [id number] [facility] 2018-07-13 00:00:00 2024-03-24 03:09:47 Orders Only Dania Ovalle Anita L [facility] 1.2.840.114 350.1.13.10 4.2.7.2.686 [id number] [facility] 2024-01-02 00:00:00 2024-01-02 16:57:17 Telephone [facility] 1.2.840.114 350.1.13.10 4.2.7.2.686 [id number] [facility] 2023-12-30 00:00:00 2023-12-30 00:00:00 Outpatient CAROLA LEAL VIVIAN [facility] [id number] [facility] 2023-12-16 00:00:00 2023-12-16 00:00:00 Outpatient R CAROLA CRUZ [facility] [id number] [facility] 2023-12-08 00:00:00 2023-12-08 00:00:00 Outpatient R CAROLA CRUZ [facility] [id number] [facility] 2023-11-23 10:15:00 2023-11-23 11:42:45 Outpatient R CAROLA CRUZ [facility] [id number] [facility] 2023-11-23 10:15:00 2023-11-23 11:42:45 Office Visit Carola Cruz [facility] 1.2.840.114 350.1.13.10 4.2.7.2.686 [id number] [facility] 2023-09-30 00:00:00 2023-09-30 11:20:18 Letter (Out) Diane Diaz [facility] 1.2.840.114 350.1.13.10 4.2.7.2.686 [id number] [facility] 2023-09-27 09:53:32 2023-09-27 23:59:00 Outpatient R LORRI CARRILLO CHOCKALINGA M [facility] [id number] [facility] 2023-09-27 09:53:32 2023-09-27 23:59:00 Hospital Encounter Lorri Carrillo [facility] 1..840.114 350.1.13.10 4.2.7.2.686 [id number] [facility] 2023-09-20 10:30:00 2023-09-20 11:07:05 Outpatient R DIANE IDAZ SELENA [facility] [id number] [facility] 2023-09-20 10:30:00 2023-09-20 11:07:05 Office Visit Diane Diaz [facility] 1.2.840.114 350.1.13.10 4.2.7.2.686 [id number] [facility] 2023-09-09 06:12:00 2023-09-09 17:15:00 Outpatient R LORRI CARRILLO CHOCKALINGA M [facility] [id number] [facility] 2023-09-09 06:12:00 2023-09-09 17:15:00 Hospital Encounter Lorri Carrillo [facility] 1.2.840.114 350.1.13.10 4.2.7.2.686 [id number] [facility] 2023-09-09 13:45:00 2023-09-09 14:45:00 Surgery Lorri Carrillo [facility] 1.2.840.114 350.1.13.10 4.2.7.2.686 [id number] [facility] 2023-09-08 10:30:00 2023-09-08 10:30:00 Outpatient BRENT LOW CRAIG [facility] [id number] [facility] 2023-09-01 00:00:00 2023-09-02 13:48:14 Telephone Lorri Carrillo [facility] 1.2.840.114 350.1.13.10 4.2.7.2.686 [id number] [facility] 2023-09-01 00:00:00 2023-09-01 13:10:35 Telephone Lorri Carrillo [facility] 1.2.840.114 350.1.13.10 4.2.7.2.686 [id number] [facility] 2023-08-23 00:00:00 2023-08-23 10:03:58 Transition of Care Arina Ramsay 1.2840.114 350.1.13.10 4.2.7.2.686 [id number] [facility] 2023-08-19 07:18:00 2023-08-22 14:42:00 Outpatient R KVNG RUIZ MYRNA [facility] [id number] [facility] 2023-08-19 07:18:00 2023-08-22 14:42:00 Hospital Encounter Lorri Carrillo Carlos Serna [facility] 1.2840.114 350.1.13.10 4.2.7.2.686 [id number] [facility] 2023-08-19 08:30:00 2023-08-19 09:30:00 Surgery [facility] 1.2840.114 350.1.13.10 4.2.7.2.686 [id number] [facility] 2023-08-10 00:00:00 2023-08-15 10:39:01 Telephone [facility] 1.2840.114 350.1.13.10 4.2.7.2.686 [id number] [facility] 2023-07-29 00:00:00 2023-08-04 11:28:13 Clinic Assessment Franklyn Schwartz [facility]MO[facility] 1.2840.114 350.1.13.10 4.2.7.2.686 [id number] [facility] 2023-07-25 00:00:00 2023-07-26 23:29:39 Telephone Lorri Carrillo m [facility] 1.2.840.114 350.1.13.10 4.2.7.2.686 [id number] [facility] 2023-07-21 09:51:23 2023-07-21 23:59:00 Outpatient R YANELIS CARRILLOMATY LORRI DYSON [facility] [id number] [facility] 2023-07-21 09:51:23 2023-07-21 23:59:00 Hospital Encounter Dai Carrillomeeramaty dowell [facility] 1..840.114 350.1.13.10 4.2.7.2.686 [id number] [facility] 2023-06-27 11:20:00 2023-06-27 11:20:00 Office Visit Franklyn Schwartz Gene [facility] 1..840.114 350.1.13.10 4.2.7.2.686 [id number] [facility] 2023-06-27 11:20:00 2023-06-27 11:16:08 Outpatient FRANKLYN MILLS HOWARD [facility] [id number] [facility] 2023-06-27 10:30:00 2023-06-27 10:38:37 Vp Security Visit Lab, Ang - Db Unknown, Attending [facility] 1.2.840.114 350.1.13.10 4.2.7.2.686 [id number] [facility] 2023-06-24 13:00:00 2023-06-24 13:00:00 Outpatient R [facility] [id number] [facility] 2023-06-23 11:30:00 2023-06-23 12:04:07 Outpatient R CRISTAL ONTIVEROS [facility] [id number] [facility] 2023-06-23 11:30:00 2023-06-23 12:04:07 Office Visit Cristal Ontiveros [facility] 1..840.114 350.1.13.10 4.2.7.2.686 [id number] [facility] 2023-06-13 10:45:00 2023-06-13 10:45:00 Outpatient VERONICA TALLEY [facility] [id number] [facility] 2023-06-10 10:30:00 2023-06-10 10:30:00 Outpatient THAI DILLON [facility] [id number] [facility] 2023-06-07 10:00:00 2023-06-07 10:41:35 Outpatient WANDA HOPKINS [facility] [id number] [facility] 2023-06-07 10:00:00 2023-06-07 10:41:35 Office Visit Wanda Soto [facility] 1.840.114 350.1.13.10 4.2.7.2.686 [id number] [facility] 2023-05-30 00:00:00 2023-05-30 00:00:00 Patient Secure Msg Wanda Soto [facility] ..840.114 350.1.13.10 4.2.7.2.686 [id number] [facility] 2023-05-26 00:00:00 2023-05-26 00:00:00 [facility] 1..840.114 350.1.13.10 4.2.7.2.686 [id number] [facility] 2023-05-20 00:00:00 2023-05-20 00:00:00 [facility] 1.2840.114 350.1.13.10 4.2.7.2.686 [id number] [facility] 2023-05-09 12:20:00 2023-05-09 12:20:00 Outpatient FRANKLYN MILLS HOWARD [facility] [id number] [facility] 2023-04-28 00:00:00 2023-04-28 00:00:00 Telephone Wanda Soto [facility] 1.2840.114 350.1.13.10 4.2.7.2.686 [id number] [facility] 2023-04-26 00:00:00 2023-04-26 00:00:00 Telephone Wanda Soto [facility] 1.2840.114 350.1.13.10 4.2.7.2.686 [id number] [facility] 2023-04-26 00:00:00 2023-04-26 00:00:00 Orders Only Doctor Unassigned, [place] [facility] 1.2840.114 350.1.13.10 4.2.7.2.686 [id number] [facility] 2023-04-25 13:00:00 2023-04-25 13:00:00 Outpatient FRANKLYN MILL[facility] [id number] [facility] 2023-04-19 00:00:00 2023-04-19 00:00:00 Patient Secure Msg Wanda Soto [facility] 1.2840.114 350.1.13.10 4.2.7.2.686 [id number] [facility] 2023-03-17 00:00:00 2023-03-17 00:00:00 Patient Secure Msg Doctor Unassigned, [place] [facility] 1.2.114 350.1.13.10 4.2.7.2.686 [id number] [facility] 2023-03-11 10:15:00 2023-03-11 10:31:18 Outpatient R CHELYJAYME THAI [facility] [id number] [facility] 2023-03-11 10:15:00 2023-03-11 10:31:18 Office Visit Thai Salguero [facility] 1.2.114 350.1.13.10 4.2.7.2.686 [id number] [facility] 2023-02-26 00:00:00 2023-02-26 00:00:00 Patient Secure Wanda Rose [facility] 1.84.114 350.1.13.10 4.2.7.2.686 [id number] 201 [id number] [facility] 2023-02-23 00:00:00 2023-02-23 00:00:00 [facility] 1.284.114 350.1.13.10 4.2.7.2.686 [id number] 059 [id number] [facility] 2023-02-17 14:03:57 2023-02-17 23:59:00 [facility] [id number] [facility] 2023-02-17 14:03:57 2023-02-17 23:59:00 [facility] 1.840.114 350.1.13.10 4.2.7.2.686 [id number] [facility] 2023-02-17 00:00:00 2023-02-17 00:00:00 Orders Only Doctor Unassigned, [place] [facility] 1.2.840.114 350.1.13.10 4.2.7.2.686 [id number] [id number] [facility] 2023-02-14 09:30:00 2023-02-14 09:30:00 Outpatient R THAI SALGUERO [facility] [id number] [facility] 2023-02-01 00:00:00 2023-02-01 00:00:00 Patient Secure Msg [facility] 1.2.840.114 350.1.13.10 4.2.7.2.686 [id number] [facility] 2023-01-27 00:00:00 2023-01-27 00:00:00 Patient Secure M[facility] 1.2.840.114 350.1.13.10 4.2.7.2.686 [id number] 201 [id number] [facility] 2023-01-21 00:00:00 2023-01-21 00:00:00 Patient Secure Msg [facility] 1.2.840.114 350.1.13.10 4.2.7.2.686 [id number] [facility] 2023-01-21 00:00:00 2023-01-21 00:00:00 Telephone Wanda Soto [facility] 1.2.840.114 350.1.13.10 4.2.7.2.686 [id number] 201 [id number] [facility] 2023-01-13 15:20:00 2023-01-13 15:54:24 Outpatient R IRAIS BENSON [facility] [id number] [facility] 2023-01-13 15:20:00 2023-01-13 15:54:24 [facility] 1.2840.114 350.1.13.10 4.2.7.2.686 [id number] 059 [id number] [facility] 2022-12-23 10:30:00 2022-12-23 11:18:59 Outpatient R CRISTAL ONTIVEROS [facility] [id number] [facility] 2022-12-23 10:30:00 2022-12-23 11:18:59 Office Visit Cristal Ontiveros [facility] 1.2840.114 350.1.13.10 4.2.7.2.686 [id number] [facility] 2022-12-17 00:00:00 2022-12-17 00:00:00 Orders Only Doctor Unassigned, [place] [facility] 1.840.114 350.1.13.10 4.2.7.2.686 [id number] [facility] 2022-12-17 00:00:00 2022-12-17 00:00:00 Telephone Wanda Soto [facility] 1.2.114 350.1.13.10 4.2.7.2.686 [id number] 201 [id number] [facility] 2022-12-10 00:00:00 2022-12-10 00:00:00 Patient Secure Msg Doctor Unassigned, [place] [facility] 1.20.114 350.1.13.10 4.2.7.2.686 [id number] [facility] 2022-12-06 10:00:00 2022-12-06 10:11:17 Outpatient R THAI SALGUERO [facility] [id number] [facility] 2022-12-06 10:00:00 2022-12-06 10:11:17 Office Visit Thai Salguero [facility] 1.0.114 350.1.13.10 4.2.7.2.686 [id number] [facility] 2022 10:20:00 2022 10:20:00 Outpatient R KENJIEDIL DINERO [facility] [id number] [facility] 2022 00:00:00 2022 00:00:00 Telephone Ping Edil [facility] BUILDING 1.2840.114 350.1.13.10 4.2.7.2.686 [id number] [facility] 2022-12-01 00:00:00 2022-12-01 00:00:00 Orders Only Doctor Unassigned, [place] [facility] 1.2840.114 350.1.13.10 4.2.7.2.686 [id number] [facility] 2022-12-01 00:00:00 2022-12-01 00:00:00 Telephone Wanda Soto [facility] 1.2840.114 350.1.13.10 4.2.7.2.686 [id number] 201 [id number] [facility] 2022-11-19 00:00:00 2022-11-19 00:00:00 Telephone Wanda Soto [facility] 1.2840.114 350.1.13.10 4.2.7.2.686 [id number] 201 [id number] [facility] 2022-11-16 09:30:00 2022-11-16 10:14:11 Outpatient R CAROLA CRUZ [facility] [id number] [facility] 2022-11-16 09:30:00 2022-11-16 10:14:11 Office Visit Carola Cruz [facility] 1.84.114 350.1.13.10 4.2.7.2.686 [id number] [facility] 2022-11-01 10:30:00 2022-11-01 10:52:33 Outpatient R THAI SALGUERO [facility] [id number] [facility] 2022-11-01 10:30:00 2022-11-01 10:52:33 [facility] 1.2840.114 350.1.13.10 4.2.7.2.686 [id number] [facility] 2022-10-26 11:00:00 2022-10-26 12:55:13 Outpatient R CRISTAL ONTIVEROS [facility] [id number] [facility] 2022-10-26 11:00:00 2022-10-26 12:55:13 Office Visit Cristal Ontiveros [facility] 1..840.114 350.1.13.10 4.2.7.2.686 [id number] 201 [id number] [facility] 2022-10-14 00:00:00 2022-10-14 00:00:00 [facility] 1.2.840.114 350.1.13.10 4.2.7.2.686 [id number] [facility] 2022-10-07 11:00:00 2022-10-07 11:15:[address] [facility] Noemy [facility] 1..840.114 350.1.13.10 4.2.7.2.686 [id number] [facility] 2022-10-07 11:00:00 2022-10-07 11:00:00 Outpatient R NOEMY THAI [facility] [id number] [facility] 2022-10-07 10:30:00 2022-10-07 10:51:32 Office Visit Noemy [facility] 1.2.840.114 350.1.13.10 4.2.7.2.686 [id number] [facility] 2022-10-07 00:00:00 2022-10-07 00:00:00 Orders Only Doctor Unassigned, [place] [facility] 1.2.840.114 350.1.13.10 4.2.7.2.686 [id number] [facility] 2022-10-06 00:00:00 2022-10-06 00:00[facility] 1.2.840.114 350.1.13.10 4.2.7.2.686 [id number] [facility] 2022-10-04 00:00:00 2022-10-04 00:00:00 Patient Secure Wanda Palomares [facility] 1.840.114 350.1.13.10 4.2.7.2.686 [id number] [facility] 2022-09-17 00:00:00 2022-09-17 00:00:00 Telephone Samaria [facility] 1.2840.114 350.1.13.10 4.2.7.2.686 [id number] [facility] 2022-09-16 14:15:00 2022-09-16 14:46:45 Outpatient R THAI SALGUERO [facility] [id number] [facility] 2022-09-16 14:15:00 2022-09-16 14:46:45 Office Visit Adalberto Mera [facility] 1.840.114 350.1.13.10 4.2.7.2.686 [id number] [facility] 2022-09-10 00:00:00 2022-09-10 00:00:00 Telephone Marcelino Irais [facility] 1.0.114 350.1.13.10 4.2.7.2.686 [id number] [id number] [facility] 2022-09-10 00:00:00 2022-09-10 00:00:00 Telephone Lorri Carrillo [facility] 1..114 350.1.13.10 4.2.7.2.686 [id number] [facility] 2022-09-02 09:00:00 2022-09-02 09:29:40 Outpatient R LUDMILA RUIZ [facility] [id number] [facility] 2022-09-02 09:00:00 2022-09-02 09:29:40 Office Visit Ludmila Ruiz [facility] 1..114 350.1.13.10 4.2.7.2.686 [id number] [facility] 2022-08-30 00:00:00 2022-08-30 00:00:00 Patient Secure Msg Doctor Unassigned, [place] [facility] 1.0.114 350.1.13.10 4.2.7.2.686 [id number] [facility] 2022-08-24 10:45:00 2022-08-24 13:05:10 Outpatient WANDA HOPKINS [facility] [id number] [facility] 2022-08-24 10:45:00 2022-08-24 13:05:10 Office Visit Wanda Soto [facility] 1..114 350.1.13.10 4.2.7.2.686 [id number] [facility] 2022-07-20 11:15:00 2022-07-20 11:15:00 Outpatient R WHITT-LONI S, KRISTI WHITT-OLNI S, KRISTI [facility] [id number] [facility] 2022-07-09 00:00:00 2022-07-09 00:00:00 Patient Secure Msg Doctor Unassigned, [place] [facility] 1.840.114 350.1.13.10 4.2.7.2.686 [id number] [id number] [facility] 2022-07-05 00:00:00 2022-07-05 00:00:00 Patient Secure Msg Dagoberto Shaw [facility] MEDICAL OFFICE BUILDING 1.840.114 350.1.13.10 4.2.7.2.686 [id number] [facility] 2022-06-03 09:30:00 2022-06-03 09:57:54 Outpatient R LUDMILA RUIZ [facility] [id number] [facility] 2022-06-01 11:15:00 2022-06-01 11:15:00 Outpatient R WHITT-LONI S, KRISTI WHITT-LONI S, KRISTI [facility] [id number] [facility] 2022-05-27 00:00:00 2022-05-27 00:00:00 Telephone Edil Feng [facility] BUILDING 1..840.114 350.1.13.10 4.2.7.2.686 [id number] [id number] [facility] 2022-05-20 09:59:03 2022-05-20 23:59:00 Outpatient R EDIL FENG [facility] [id number] [facility] 2022-05-18 00:00:00 2022-05-18 00:00:00 Telephone Irais Benson [facility] 1..840.114 350.1.13.10 4.2.7.2.686 [id number] [facility] 2022-05-17 00:00:00 2022-05-17 00:00:00 Telephone Irais Benson [facility] BUILDING 1.2.840.114 350.1.13.10 4.2.7.2.686 [id number] [facility] 2022-05-13 10:00:00 2022-05-13 10:00:00 Outpatient LUDMILA GIL [facility] [id number] [facility] 2022-04-19 00:00:00 2022-04-19 00:00:00 Patient Secure Msg Doctor Unassigned, [place] [facility] 1.2.840.114 350.1.13.10 4.2.7.2.686 [id number] [facility] 2022-04-08 10:00:00 2022-04-08 10:13:27 Outpatient LUDMILA GIL [facility] [id number] [facility] 2022-04-06 13:30:00 2022-04-06 13:30:00 Outpatient LUDMILA GIL [facility] [id number] [facility] 2022-02-11 10:20:00 2022-02-11 23:59:00 [facility] [id number] 2022-02-11 11:20:00 2022-02-11 11:40:00 Office Visit Ping Edil [facility] 1.2.840.114 350.1.13.10 4.2.7.2.686 [id number] [facility] 2022-02-09 11:30:00 2022-02-09 12:15:22 Outpatient DAGOBERTO MONTEIRO [facility] [id number] [facility] 2022-02-09 11:30:00 2022-02-09 12:15:22 Office Visit Colin, [facility] OFFICE BUILDING 1.2.840.114 350.1.13.10 4.2.7.2.686 [id number] [facility] 2022-02-09 00:00:00 2022-02-09 00:00:00 Orders Only Doctor Unassigned, [place] [facility] 1.2.840.114 350.1.13.10 4.2.7.2.686 [id number] [facility] 2022-01-26 16:00:00 2022-01-26 16:00:00 Outpatient R COLIN DAGOBERTO [facility] [id number] [facility] 2022-01-19 00:00:00 2022-01-19 00:00:00 Telephone Colin [facility] OFFICE BUILDING 1.2.840.114 350.1.13.10 4.2.7.2.686 [id number] [facility] 2022-01-12 00:00:00 2022-01-12 00:00:00 Telephone Colin [facility] OFFICE BUILDING 1.2.840.114 350.1.13.10 4.2.7.2.686 [id number] [facility] 2022-01-07 09:40:00 2022-01-07 09:40:00 Outpatient R EDIL FENG [facility] [id number] [facility] 2021-12-28 05:11:00 2021-12-31 16:54:[address] [facility] AMARI [id number] [facility] 2021-12-28 05:11:00 2021-12-31 16:54:00 Hospital Encounter Colin Dagoberto [facility] 1.2.840.114 350.1.13.10 4.2.7.2.686 [id number] [facility] 2021-12-28 07:20:00 2021-12-28 13:02:00 Anesthesia Event Jose Angel, [place] Marco A Peralta [facility] 1.2.840.114 350.1.13.10 4.2.7.2.686 [id number] [facility] 2021-12-28 06:50:00 2021-12-28 11:07:00 Surgery Colin [facility] 1.2.840.114 350.1.13.10 4.2.7.2.686 [id number] [facility] 2021-12-28 00:00:00 2021-12-28 00:00:00 Orders Only Doctor Unassigned, [place] [facility] 1.2840.114 350.1.13.10 4.2.7.2.686 [id number] [facility] 2021-12-25 00:00:00 2021-12-25 00:00:00 Outpatient EDIL MERCEDES [facility] [id number] [facility] 2021-12-25 00:00:00 2021-12-25 00:00:00 Telephone Colin [facility] MEDICAL OFFICE BUILDING 1.2.840.114 350.1.13.10 4.2.7.2.686 [id number] [facility] 2021-12-25 00:00:00 2021-12-25 00:00:00 Patient Secure Msg Colin [facility] MEDICAL OFFICE BUILDING 1.2.840.114 350.1.13.10 4.2.7.2.686 [id number] [facility] 2021-12-24 13:35:11 2021-12-24 23:59:00 Outpatient EDIL MERCEDES [facility] [id number] [facility] 2021-12-24 13:30:00 2021-12-24 23:59:00 Hospital Encounter Ping Edil [facility] 1.2.840.114 350.1.13.10 4.2.7.2.686 [id number] [facility] 2021-12-24 00:00:00 2021-12-24 00:00:00 Telephone Colin [facility] MEDICAL OFFICE BUILDING 1.2.840.114 350.1.13.10 4.2.7.2.686 [id number] [facility] 2021-12-04 10:20:00 2021-12-04 10:20:00 Outpatient R EDIL FENG [facility] [id number] [facility] 2021-11-09 00:00:00 2021-11-09 00:00:00 Patient Secure Msg Doctor Unassigned, [place] [facility] 1.2.840.114 350.1.13.10 4.2.7.2.686 [id number] [facility] 2021-10-27 15:00:00 2021-10-27 15:15:00 Office Visit Colin [facility] MEDICAL OFFICE BUILDING 1.2.840.114 350.1.13.10 4.2.7.2.686 [id number] [facility] 2021-10-27 15:00:00 2021-10-27 15:00:[address] [facility] [id number] [facility] 2021-10-27 00:00:00 2021-10-27 00:00:00 Orders Only Doctor Unassigned, [place] [facility] 1.2840.114 350.1.13.10 4.2.7.2.686 [id number] [facility] 2021-10-05 09:15:00 2021-10-05 09:15:00 Outpatient R BRENT WELLS [facility] [id number] [facility] 2021-10-02 15:00:00 2021-10-02 15:00:00 Outpatient R EDIL FENG [facility] [id number] [facility] 2021-09-29 14:45:00 2021-09-29 15:00:00 Office Visit Joseph [facility] 1..840.114 350.1.13.10 4.2.7.2.686 [id number] [facility] 2021-09-29 14:45:00 2021-09-29 14:45:00 Outpatient R LUDMILA RUIZ [facility] [id number] [facility] 2021-09-29 09:15:00 2021-09-29 09:15:00 Outpatient R BRENT WELLS [facility] [id number] [facility] 2021-09-28 00:00:00 2021-09-28 00:00:00 Telephone Joseph [facility] 1..840.114 350.1.13.10 4.2.7.2.686 [id number] [facility] 2021-09-25 10:40:00 2021-09-25 10:40:00 Outpatient R PING [facility] [id number] [facility] 2021-09-25 10:40:00 2021-09-25 10:40:00 Outpatient R KENJITARUN [facility] [id number] [facility] 2021-09-19 00:00:00 2021-09-19 00:00:00 Patient Secure Msg Doctor Unassigned, [place] [facility] 1..840.114 350.1.13.10 4.2.7.2.686 [id number] [facility] 2021-09-17 11:39:36 2021-09-17 23:59:00 Outpatient R CHARLOTTE VILLALPANDO [facility] [id number] [facility] 2021-09-17 11:39:36 2021-09-17 23:59:00 Hospital Encounter Charlotte Villalpando [facility] 1.2840.114 350.1.13.10 4.2.7.2.686 [id number] [facility] 2021-09-14 08:30:00 2021-09-14 09:03:05 Outpatient R AIDE VILLALPANDOTNEY [facility] [id number] [facility] 2021-09-14 08:30:00 2021-09-14 09:03:05 [facility] 1.840.114 350.1.13.10 4.2.7.2.686 [id number] [facility] 2021-08-12 10:30:00 2021-08-12 10:30:00 [facility] [id number] 2021-07-29 09:30:00 2021-07-29 09:30:00 [facility] [id number] [facility] 2021-07-20 09:30:00 2021-07-20 09:30:00 [facility] [id number] [facility] 2021-07-14 00:00:00 2021-07-14 00:00:00 Patient Secure Msg Doctor Unassigned, [place] [facility] 1..114 350.1.13.10 4.2.7.2.686 [id number] [facility] 2021-07-03 09:00:00 2021-07-03 09:24:03 [facility] 1.2840.114 350.1.13.10 4.2.7.2.686 [id number] [facility] 2021-07-03 09:00:00 2021-07-03 09:24:03 Outpatient EDIL MERCEDES [facility] [id number] [facility] 2021-07-03 09:00:00 2021-07-03 09:00:00 Outpatient EDIL MERCEDES [facility] [id number] [facility] 2021-06-30 15:30:00 2021-06-30 15:30:00 Outpatient Raya RUIZ LUDMILA [facility] [id number] [facility] 2021-06-26 10:00:00 2021-06-26 10:00:00 Outpatient EDIL MERCEDES [facility] [id number] [facility] 2021-06-26 10:00:00 2021-06-26 10:00:00 Outpatient EDIL MERCEDES [facility] [id number] [facility] 2021-06-26 10:00:00 2021-06-26 10:00:00 Outpatient EDIL MERCEDES [facility] [id number] [facility] 2021-05-29 00:00:00 2021-05-29 00:00:00 Orders Only Doctor Unassigned, [place] [facility] 1.840.114 350.1.13.10 4.2.7.2.686 [id number] [facility] 2021-05-20 00:00:00 2021-05-20 00:00:00 Transition of Care Arina Ramsay 1..840.114 350.1.13.10 4.2.7.2.686 [id number] [facility] 2021-05-19 16:30:00 2021-05-19 16:30:00 Outpatient Raya RUIZ LUDMILA [facility] [id number] [facility] 2021-05-14 17:03:00 2021-05-19 15:35:00 Outpatient PATRICIA GUZMAN [facility] [id number] [facility] 2021-05-14 17:03:00 2021-05-19 15:35:00 Emergency [place], Tom Reyes [facility] 1..840.114 350.1.13.10 4.2.7.2.686 [id number] [facility] 2021-05-12 16:15:00 2021-05-12 16:15:00 Outpatient LDUMILA GIL [facility] [id number] [facility] 2021-05-11 00:00:00 2021-05-11 00:00:00 [facility] 1..840.114 350.1.13.10 4.2.7.2.686 [id number] [facility] 2021-05-08 11:00:00 2021-05-08 11:00:00 Outpatient Raya RUIZ LUDMILA [facility] [id number] [facility] 2021-05-08 00:00:00 2021-05-08 00:00:00 Telephone Ludmila Ruiz [facility] 1..840.114 350.1.13.10 4.2.7.2.686 [id number] [facility] 2021-04-22 07:01:00 2021-04-30 17:49:00 Inpatient LUDMILA GIL [facility] [id number] [facility] 2021-04-22 07:01:00 2021-04-30 17:49:00 Hospital Encounter Ludmila Ruiz [facility] 1..840.114 350.1.13.10 4.2.7.2.686 [id number] [facility] 2021-04-22 10:03:00 2021-04-22 16:40:00 Anesthesia Event [place] Ma Rakesh Raj [facility] 1.2.840.114 350.1.13.10 4.2.7.2.686 [id number] [facility] 2021-04-22 09:00:00 2021-04-22 15:30:00 Surgery Ludmila Ruiz [facility] 1.2.840.114 350.1.13.10 4.2.7.2.686 [id number] [facility] 2021-04-22 00:00:00 2021-04-22 00:00:00 Orders Only Doctor Unassigned, [place] [facility] 1.2840.114 350.1.13.10 4.2.7.2.686 [id number] [facility] 2021-04-15 08:43:00 2021-04-15 11:49:00 Outpatient R SHAISTA GUERRA [facility] [id number] [facility] 2021-04-15 08:43:00 2021-04-15 11:49:00 Hospital Encounter Shaista Guerra [facility] 1.2840.114 350.1.13.10 4.2.7.2.686 [id number] [facility] 2021-04-15 09:45:00 2021-04-15 10:15:00 Surgery Shaista Guerra [facility] 1.2840.114 350.1.13.10 4.2.7.2.686 [id number] [facility] 2021-04-15 00:00:00 2021-04-15 00:00:00 Orders Only Doctor Unassigned, [place] [facility] 1.2840.114 350.1.13.10 4.2.7.2.686 [id number] [facility] 2021-04-13 13:00:00 2021-04-13 13:15:00 Laboratory Only Only, [facility].114 350.1.13.10 4.2.7.2.686 [id number] [facility] 2021-04-13 13:00:00 2021-04-13 13:00:00 [facility]patient [facility] [id number] [facility] 2021-04-06 00:00:00 2021-04-06 00:00:00 Telephone Joseph [facility] 1..840.114 350.1.13.10 4.2.7.2.686 [id number] [facility] 2021-03-20 11:45:00 2021-03-20 13:07:24 Outpatient R JOSEPHTIAN PANDAELA [facility] [id number] [facility] 2021-03-20 11:45:00 2021-03-20 13:07:24 [facility]patient [facility] [id number] [facility] 2021-03-20 08:00:00 2021-03-20 09:14:53 Office Visit Kenjitarun Edil [facility] 1..840.114 350.1.13.10 4.2.7.2.686 [id number] [facility] 2021-03-18 09:06:05 2021-03-18 23:59:00 Outpatient R JOSEPH LUDMILA [facility] [id number] [facility] 2021-03-18 09:06:05 2021-03-18 23:59:00 Outpatient LUDMILA GIL [facility] [id number] [facility] 2021-03-18 09:00:00 2021-03-18 23:59:00 Hospital Encounter Joseph Ludmila [facility] 1.2.840.114 350.1.13.10 4.2.7.2.686 [id number] [facility] 2021-03-05 17:38:00 2021-03-05 22:52:00 Emergency X Milena OROPEZA [facility] ERT [id number] [facility] 2021-03-05 17:38:00 2021-03-05 22:52:00 Emergency Milena Oropeza No [facility] 1.2.840.114 350.1.13.10 4.2.7.2.686 [id number] [facility] 2021-02-24 00:00:00 2021-02-24 00:00:00 Telephone Ludmila Ruiz [facility] 1.2.840.114 350.1.13.10 4.2.7.2.686 [id number] [facility] 2021-02-20 00:00:00 2021-02-20 00:00:00 Patient Secure Msg Doctor Unassigned, [place] [facility] 1.2.840.114 350.1.13.10 4.2.7.2.686 [id number] [facility] 2021-02-19 00:00:00 2021-02-19 00:00:00 Transition of Care Arina Ramsay 1.2.840.114 350.1.13.10 4.2.7.2.686 [id number] [facility] 2021-02-14 17:09:00 2021-02-18 16:05:00 Hospital Encounter Maryan Rojas, Leslye Aguiar [facility] 1.2.840.114 350.1.13.10 4.2.7.2.686 [id number] [facility] 2021-02-16 09:27:00 2021-02-16 10:27:00 Anesthesia Event Radha Holden [facility] 1.84.114 350.1.13.10 4.2.7.2.686 [id number] [facility] 2021-02-16 07:48:00 2021-02-16 08:50:00 Surgery Neil Mg-Jillian [facility] ICAL [facility]G 1..114 350.1.13.10 4.2.7.2.686 [id number] [facility] 2021-02-13 10:45:00 2021-02-13 11:00:00 [facility] 1.84.114 350.1.13.10 4.2.7.2.686 [id number] [facility] 2021-02-13 10:45:00 2021-02-13 10:45:00 Outpatient LUDMILA GIL [facility] [id number] [facility] 2021-02-13 10:45:00 2021-02-13 10:45:00 Outpatient LUDMILA GIL [facility] [id number] [facility] 2021-02-13 10:45:00 2021-02-13 10:45:00 Outpatient [address]MILA GIL [facility] [id number] [facility] 2021-02-03 00:00:00 2021-02-03 00:00:00 Franklyn Dominguez [facility] 1.840.114 350.1.13.10 4.2.7.2.686 [id number] [facility] 2020-12-24 14:00:00 2020-12-24 15:03:38 Outpatient BALDEMAR DONOVAN [facility] [id number] [facility] 2020-12-24 14:00:00 2020-12-24 15:03:38 Outpatient R BALDEMAR MEJIAS [facility] [id number] [facility] 2020-12-24 13:41:26 2020-12-24 15:03:38 Office Visit Fernandooliver Baldemar Humble [facility] 1.840.114 350.1.13.10 4.2.7.2.686 [id number] [facility] 2020-12-23 00:00:00 2020-12-23 00:00:00 Orders Only Doctor Unassigned, [place] [facility] 1.840.114 350.1.13.10 4.2.7.2.686 [id number] [facility] 2020-12-12 11:45:00 2020-12-12 11:45:00 Outpatient R LUDMILA RUIZ [facility] [id number] [facility] 2020-12-12 11:45:00 2020-12-12 11:45:00 Outpatient R LUDMILA RUIZ [facility] [id number] [facility] 2020-12-12 11:45:00 2020-12-12 11:45:00 Outpatient LUDMILA GIL [facility] [id number] [facility] 2020-12-12 11:45:00 2020-12-12 11:45:00 Outpatient LDUMILA GIL [facility] [id number] [facility] 2020-12-12 11:45:00 2020-12-12 11:45:00 Outpatient LUDMILA GIL [facility] [id number] [facility] 2020-12-12 11:13:07 2020-12-12 11:28:07 [facility] 1.840.114 350.1.13.10 4.2.7.2.686 [id number] [facility] 2020-12-09 11:21:50 2020-12-09 11:39:47 Office Visit Edil Feng [facility] 1.840.114 350.1.13.10 4.2.7.2.686 [id number] [facility] 2020-12-09 11:00:00 2020-12-09 11:39:47 Outpatient R EDIL FENG [facility] [id number] [facility] 2020-12-09 11:00:00 2020-12-09 11:39:47 Outpatient R PING [facility] [id number] [facility] 2020-12-09 00:00:00 2020-12-09 00:00:00 Orders Only Doctor Unassigned, [place] [facility] 1..840.114 350.1.13.10 4.2.7.2.686 [id number] [facility] 2020-12-05 11:30:00 2020-12-05 11:30:00 Outpatient LUDMILA GIL [facility] [id number] [facility] 2020-12-05 11:30:00 2020-12-05 11:30:00 Outpatient LUDMILA GIL [facility] [id number] [facility] 2020-12-03 00:00:00 2020-12-03 00:00:00 Telephone Ilana Alcala [facility] 1..840.114 350.1.13.10 4.2.7.2.686 [id number] [facility] 2020-11-28 11:00:00 2020-11-28 11:00:00 Outpatient LUDMILA GIL [facility] [id number] [facility] 2020-11-28 11:00:00 2020-11-28 11:00:00 Outpatient LUDMILA GIL [facility] [id number] [facility] 2020-11-28 00:00:00 2020-11-28 00:00:00 Telephone Ilana Alcala [facility] 1.2.840.114 350.1.13.10 4.2.7.2.686 [id number] [facility] 2020-11-25 15:45:00 2020-11-25 16:38:41 Outpatient R DAGOBERTO SHAW [facility] [id number] [facility] 2020-11-25 15:36:34 2020-11-25 16:38:41 Office Visit [facility] 1.2.840.114 350.1.13.10 4.2.7.2.686 [id number] [facility] 2020-11-25 15:45:00 2020-11-25 15:45:00 Outpatient DAGOBERTO MONTEIRO [facility] [id number] [facility] 2020-11-25 00:00:00 2020-11-25 00:00:00 Orders Only Doctor Unassigned, [place] [facility] 1.2.840.114 350.1.13.10 4.2.7.2.686 [id number] [facility] 2020-11-25 00:00:00 2020-11-25 00:00:00 Orders Only Doctor Unassigned, [place] [facility] 1.2.840.114 350.1.13.10 4.2.7.2.686 [id number] [facility] 2020-11-24 00:00:00 2020-11-24 00:00:00 Telephone Ilana Alcala [facility] 1.2.840.114 350.1.13.10 4.2.7.2.686 [id number] [facility] 2020-11-11 11:30:00 2020-11-11 11:30:00 Outpatient R COLINDAGOBERTO [facility] [id number] [facility] 2020-11-11 11:30:00 2020-11-11 11:30:00 Outpatient Raya COLINDAGOBERTO [facility] [id number] [facility] 2020-11-07 00:00:00 2020-11-07 00:00:00 Orders Only Doctor Unassigned, [place] [facility] 1.2.840.114 350.1.13.10 4.2.7.2.686 [id number] [facility] 2020-10-07 15:02:00 2020-10-07 17:36:00 Emergency Amarilis Bergman [facility] 1.2840.114 350.1.13.10 4.2.7.2.686 [id number] [facility] 2020-10-07 00:00:00 2020-10-07 00:00:00 Orders Only Doctor Unassigned, [place] [facility] 1.2840.114 350.1.13.10 4.2.7.2.686 [id number] [facility] 2020-10-06 00:00:00 2020-10-06 00:00:00 Telephone Ludmila Ruiz [facility] 1.2840.114 350.1.13.10 4.2.7.2.686 [id number] [facility] 2020-09-15 00:00:00 2020-09-15 00:00:00 Outpatient EDIL FENG [facility] [id number] [facility] 2020-09-09 11:15:00 2020-09-09 11:15:00 Outpatient PREMA CARDONA [facility] [id number] [facility] 2020-08-22 11:00:00 2020-08-22 11:56:10 Outpatient R LUDMILA RUIZ [facility] [id number] [facility] 2020-08-22 11:00:00 2020-08-22 11:00:00 Outpatient R JOSEPH LUDMILA [facility] [id number] [facility] 2020-08-05 11:30:00 2020-08-05 11:30:00 Outpatient TRINIDAD JEROME [facility] [id number] [facility] 2020-07-22 10:00:00 2020-07-22 10:00:00 Outpatient TRINIDAD JEROME [facility] [id number] [facility] 2020-07-15 10:00:00 2020-07-15 10:00:00 Outpatient R ANDREABRUCEUA [facility] [id number] [facility] 2020-07-15 10:00:00 2020-07-15 10:00:00 Outpatient R ANDREA PREMA [facility] [id number] [facility] 2020-07-15 10:00:00 2020-07-15 10:00:00 Outpatient R [facility] [id number] [facility] 2020-07-09 10:00:00 2020-07-09 10:00:00 Outpatient IRAIS MERCADO [facility] [id number] [facility] 2020-07-08 10:00:00 2020-07-08 10:00:00 Outpatient R [facility] [id number] [facility] 2020-06-24 10:00:00 2020-06-24 10:00:00 Outpatient TRINIDAD JEROME [facility] [id number] [facility] 2020-06-17 11:00:00 2020-06-17 11:00:00 Outpatient R [facility] [id number] [facility] 2020-06-17 11:00:00 2020-06-17 11:00:00 Outpatient EDIL MERCEDES [facility] [id number] [facility] 2020-06-03 10:00:00 2020-06-03 10:00:00 Outpatient R NARESH TRINIDAD [facility] [id number] [facility] 2020-04-18 14:37:00 2020-04-22 22:00:00 Outpatient X ILANA ALCALA [facility] DENAE [id number] [facility] 2020-03-18 14:40:00 2020-03-18 14:40:00 Outpatient R [facility] [id number] [facility] 2020-03-14 09:20:00 2020-03-14 09:20:00 Outpatient FRANKLYN MILLS HOWARD [facility] [id number] [facility] 2020-01-29 08:00:00 2020-01-29 08:00:00 Outpatient R [facility] [id number] [facility] 2020-01-15 10:00:00 2020-01-15 10:00:00 Outpatient R [facility] [id number] [facility] 2020-01-10 16:52:00 2020-01-13 20:15:00 Outpatient X BEATRIS HOLT [facility] [id number] [facility] 2020-01-10 15:30:00 2020-01-10 15:30:00 Outpatient R ANNEMARIE EDGAR [facility] [id number] [facility] 2020-01-09 10:20:00 2020-01-09 10:20:00 Outpatient R IRAIS BENSON [facility] [id number] [facility] 2020-01-01 15:30:00 2020-01-01 15:30:00 Outpatient ANNEMARIE RANDOLPH [facility] [id number] [facility] 2019-11-22 14:00:00 2019-11-22 14:00:00 Outpatient R ANNEMARIE EDGAR [facility] [id number] [facility] 2019-11-15 15:45:00 2019-11-15 15:45:00 Outpatient R TYLER BASS [facility] [id number] [facility] 2019-11-01 15:00:00 2019-11-01 15:00:00 Outpatient R ANNEMARIE EDGAR [facility] [id number] [facility] 2019-10-30 15:00:00 2019-10-30 15:00:00 Outpatient R ANNEMARIE EDGAR [facility] [id number] [facility] 2019-10-18 15:00:00 2019-10-18 15:00:00 Outpatient R GAURANGLUDMILA [facility] [id number] [facility] 2019-07-04 13:20:00 2019-07-04 13:20:00 Outpatient R IRAIS BENSON [facility] [id number] [facility] 2019-06-29 09:45:00 2019-06-29 09:45:00 Outpatient R [facility] [id number] [facility] 2019-06-20 09:00:00 2019-06-20 09:00:00 Outpatient R GAURANGLUDMILA [facility] [id number] [facility] 2019-04-30 10:00:00 2019-04-30 10:00:00 Outpatient R DAYNAPERFECTO HECTORSCOTTSHAN [facility] [id number] [facility] 2019-03-01 20:00:00 2019-03-01 20:00:00 Outpatient R SARINABALDORODRIGERRYJERRICARoro CAR HIDALGO [facility] [id number] [facility] 2019-01-15 09:33:47 2019-01-15 23:59:00 Outpatient R DAYNAPERFECTO HECTORGABBIE [facility] [id number] [facility] 2019-01-15 09:33:47 2019-01-15 23:59:00 Outpatient R DAYNAPERFECTO HECTORGABBIE [facility] [id number] [facility] Results Test Description Test Time Test Comments Results Result Comments Source Electrophysiology procedure 21:26:21 Dual Chamber Pacemaker Generator Change Out Procedure NoteProcedure: Dual Chamber Pacemaker Generator Change Out Indication: Pulse Generator LAUREEN Technique: The patient presented to the electrophysiology lab in the fasting state. After obtaining informed consent and administrating preoperative antibiotics, the patient was prepped and draped in the usual sterile fashion. Sedation was initiated under anesthesia team guidance. Local anesthesia was administered over the previously implanted pulse generator. An incision was made and using sharp and blunt dissection the pulse generator was freed up from the surrounding tissue and removed from the pocket. The leads were disconnected and examined for structural integrity and absence of "make-break" artifacts. Pacing and sensing thresholds, lead impedances and absence of diaphragmatic stimulation were confirmed. All leads were connected to the appropriate posts in the new pulse generator. The wound was irrigated with a large amount of antibiotic solution. Adequate hemostasis was confirmed. The new pulse generator was placed into the pocket. Excess leads were coiled behind the device. Wound was closed with two layers of absorbable sutures. Skin was closed with Dermabond glue. Postoperative interrogation confirmed adequate pacemaker function.The patient tolerated the procedure well and there were no acute complications. Device Characteristics: Device Characteristics:Puls e generator: Thumb Reading Model [id number] Lead: Medtronic 5076, P waves: 2.2 mV, Threshold 0.5 V@0.4msec, Impedance 776 ohmsRV Lead: Medtronic 5076, R-waves 10.0 mV, Threshold 1.2 V@0.4msec, Impedance 430 ohms Final Programming: DDDR 60-130 Impression: Successful Dual Chamber Pacemaker Generator Change Out Plan:Follow up in device clinic in 2 weeks for wound check. Discharge home today if patient remains stable.Follow up in EP clinic in 6-8 weeks. Alf Carrillo, MDCardiac Electrophysiology [facility] CATH PROCEDURE LOG 19:10:47 Ordered by an unspecified provider. [facility] [id number] 14:55:12* Test Item Value Reference Range Interpretation Comme nts WBC (test code = 6690-2) 3.49 4.30-11.10 L RBC (test code = 789-8) 3.70 3.93-5.25 L HGB (test code = 718-7) 10.1 g/dL 11.6-15.0 L HCT (test code = 4544-3) 31.8 % 35.7-45.2 L MCV (test code = 787-2) 85.9 fL 80.6-95.5 MCH (test code = 785-6) 27.3 pg 25.9-32.8 MCHC (test code = 786-4) 31.8 g/dL 31.6-35.1 RDW-SD (test code = 27491-2) 64.5 fL 39.0-49.9 H RDW-CV (test code = 788-0) 20.9 % 12.0-15.5 H PLT (test code = 777-3) 176 166-358 MPV (test code = 65185-9) 10.1 fL 9.5-12.9 NRBC/100 WBC (test code = 6295601818) 0.0 0.0-10.0 NRBC x10^3 (test code = 0433411957) See_Comment [Automated messa ge] The system which generated this result transmitted reference range: 10*3/?L. The reference range was not used to interpret this result as normal/abnormal. GRAN MAT (NEUT) % (test code = 770-8) 56.2 % IMM GRAN % (test code = 0419157574) 0.30 % LYMPH % (test code = 736-9) 27.2 % MONO % (test code = 5905-5) 13.2 % EOS % (test code = 713-8) 1.7 % BASO % (test code = 706-2) 1.4 % GRAN MAT x10^3(ANC) (test code = 5689135957) 1.96 10*3/uL 1.88-7.09 IMM GRAN x10^3 (test code = 2925949461) 0.00-0.06 LYMPH x10^3 (test code = 731-0) 0.95 10*3/uL 1.32-3.29 L MONO x10^3 (test code = 742-7) 0.46 10*3/uL 0.33-0.92 EOS x10^3 (test code = 711-2) 0.06 10*3/uL 0.03-0.39 BASO x10^3 (test code = 704-7) 0.05 10*3/uL 0.01-0.07 Lab Interpretation (test code = 46275-4) Abnormal [facility]th[facility] Time / [id number] 14:33:05* Test Item Value Reference Range Interpretation Comme nts PROTIME PATIENT (test code = 5964-2) 11.3 10.1-12.6 INR (test code = 6301-6) 1.0 Normal INR <1.1; Warfarin Therapeutic range 2.0 to 3.0 or 2.5 to 3.5, depending upon the indications. Lab Interpretation (test code = 90076-7) Normal [facility]landProthrombin Time / [id number] 14:33:05* Test Item Value Reference Range Interpretation Comme nts PROTIME PATIENT (test code = 5964-2) 11.3 10.1-12.6 INR (test code = 6301-6) 1.0 Normal INR <1.1; Warfarin Therapeutic range 2.0 to 3.0 or 2.5 to 3.5, depending upon the indications. Lab Interpretation (test code = 03106-3) Normal [facility]landType and Screen - STAT [id number] 14:16:00* Test Item Value Reference Range Interpretation Comme nts ABO & RH (test code = 20) O POSITIVE IAT (test code = 1185) Negative [facility] and Screen - STAT [id number] 14:16:00* Test Item Value Reference Range Interpretation Comme nts ABO & RH (test code = 20) O POSITIVE IAT (test code = 1185) Negative [facility]landElectrophysiology [id number] 15:29:52 Aborted invasive cardiology procedure -- see horticultural specialty grower inside report for details. [facility]landPrepar Packed RBC (in units), 1 Units 2023-08-21 06:00:05* Test Item Value Reference Range Interpretation Comme [facility] Cross Match Result (test code = 4409) Compatible ISBT Blood Type Code (test code = 731491) 5100 Unit Blood Type (test code = 4410) O Pos Unit Number (test code = 4411) [id number] Blood Expiration Date & Time (test code = 672046) 943400412863 Status Information (test code = 4412) Issued Product Identification (test code = 4413) Red Blood Cells Product Code (test code = 4414) [id number] Performed at [facility] Laboratory Services - [facility] Blood [address] [place] [address]Glkf Free: [phone] No. [id number] [facility]landPrepare Packed RBC (in units), 1 Units 2023-08-21 06:00:05* Test Item Value Reference Range Interpretation Comme nts Cross Match Result (test code = 4409) Compatible ISBT Blood Type Code (test code = 549852) 5100 Unit Blood Type (test code = 4410) O Pos Unit Number (test code = 4411) [id number] Blood Expiration Date & Time (test code = 385594) 723440182894 Status Information (test code = 4412) Issued Product Identification (test code = 4413) Red Blood Cells Product Code (test code = 4414) [id number] Performed at [place] [id number] Free: [phone] No. [id number] [facility]landDIFF CONSULT [id number] 20:37:13 WHITE BLOOD CELLS: ABSOLUTE LYMPHOCYTOPENIA. RED BLOOD CELLS: NORMOCYTIC HYPOCHROMIC ANEMIA. PLATELETS: UNREMARKABLE.[facility] DIFF CONSULT [id number] 20:37:13WHITE BLOOD CELLS: ABSOLUTE LYMPHOCYTOPENIA. RED BLOOD CELLS: NORMOCYTIC HYPOCHROMIC ANEMIA. PLATELETS: UNREMARKABLE.[facility] MainlandPrepare Packed RBC (in units), 1 Zypne9270-75-06 19:38:09* Test Item Value Reference Range Interpretation Comme nts Cross Match Result (test code = 4409) Compatible ISBT Blood Type Code (test code = 632279) 5100 Unit Blood Type (test code = 4410) O Pos Unit Number (test code = 4411) [id number] Blood Expiration Date & Time (test code = 656634) 217460282115 Status Information (test code = 4412) Issued Product Identification (test code = 4413) Red Blood Cells Product Code (test code = 4414) [id number] Performed at [facility] Laboratory [address] [address]Rnfu Free: [phone] No. [id number] [facility]landPrepare Packed RBC (in units), 1 Units 2023-08-19 19:38:09* Test Item Value Reference Range Interpretation Comme nts Cross Match Result (test code = 4409) Compatible ISBT Blood Type Code (test code = 337199) 5100 Unit Blood Type (test code = 4410) O Pos Unit Number (test code = 4411) [id number] Blood Expiration Date & Time (test code = 637922) 485114264659 Status Information (test code = 4412) Issued Product Identification (test code = 4413) Red Blood Cells Product Code (test code = 4414) [id number] Performed at [facility] Laboratory Services [facility] Blood [address] [address]Pjeg Free: [phone] No. [id number] [facility] MainlandVitamin B12, Qzoah6563-88-96 18:37:10* Test Item Value Reference Range Interpretation Comme nts VIT B12 (test code = 3701371314) 239 pg/mL 240-930 L ELENI (test code = ELENI) Biotin has been reported to cause a positive bias, interpret results relative to patient's use of biotin. Lab Interpretation (test code = 54234-3) Abnormal [facility] MainlandVitamin B12, [id number] 18:37:10* Test Item Value Reference Range Interpretation Comme nts VIT B12 (test code = 5042515531) 239 pg/mL 240-930 L ELENI (test code = ELENI) Biotin has been reported to cause a positive bias, interpret results relative to patient's use of biotin. Lab Interpretation (test code = 27109-2) Abnormal [facility] MainlandFolate2024-07-12 16:06:52* Test Item Value Reference Range Interpretation Comme nts FOLATE SER (test code = 2432924830) 9.3 ng/mL 3.0-20.0 Lab Interpretation (test cod e = 29450-8) Normal [facility] MainlandFolate2024-07-12 16:06:52* Test Item Value Reference Range Interpretation Comme nts FOLATE SER (test code = 3486818815) 9.3 ng/mL 3.0-20.0 Lab Interpretation (test cod e = 79915-0) Normal [facility]landIron Gynrs0526-65-17 16:01:51* Test Item Value Reference Range Interpretation Comme nts IRON (test code = 6827435054) 21 ug/dL 50-160 L TIBC (test code = 4077972782) 494 ug/dL 250-410 H % FE SAT (test code = 7947486313) 4 % 20-50 L Lab Interpretation (test cod e = 21685-4) Abnormal [facility] MainlandIro Ftdni0308-41-77 16:01:51* Test Item Value Reference Range Interpretation Comme nts IRON (test code = 0045166325) 21 ug/dL 50-160 L TIBC (test code = 6199358361) 494 ug/dL 250-410 H % FE SAT (test code = 4932430560) 4 % 20-50 L Lab Interpretation (test cod e = 23637-5) Abnormal General acute hospital with Pscp9945-96-27 15:53:29* Test Item Value Reference Range Interpretation Comme nts WBC (test code = 6690-2) 5.10 4.30-11.10 RBC (test code = 789-8) 2.52 3.93-5.25 L HGB (test code = 718-7) 5.9 g/dL 11.6-15.0 L HCT (test code = 4544-3) 20.8 % 35.7-45.2 L MCV (test code = 787-2) 82.5 fL 80.6-95.5 MCH (test code = 785-6) 23.4 pg 25.9-32.8 L MCHC (test code = 786-4) 28.4 g/dL 31.6-35.1 L RDW-SD (test code = 26803-1) 49.4 fL 39.0-49.9 RDW-CV (test code = 788-0) 16.7 % 12.0-15.5 H PLT (test code = 777-3) 217 166-358 MPV (test code = 17191-1) 10.5 fL 9.5-12.9 NRBC/100 WBC (test code = 6810306485) 0.0 0.0-10.0 NRBC x10^3 (test code = 2452560354) See_Comment [Automated messa ge] The system which generated this result transmitted reference range: 10*3/?L. The reference range was not used to interpret this result as normal/abnormal. GRAN MAT (NEUT) % (test code = 770-8) 71.3 % IMM GRAN % (test code = 3377491502) 0.80 % LYMPH % (test code = 736-9) 11.6 % MONO % (test code = 5905-5) 14.5 % EOS % (test code = 713-8) 1.0 % BASO % (test code = 706-2) 0.8 % GRAN MAT x10^3(ANC) (test code = 1529642343) 3.64 10*3/uL 1.88-7.09 IMM GRAN x10^3 (test code = 1909474407) 0.04 10*3/uL 0.00-0.06 LYMPH x10^3 (test code = 731-0) 0.59 10*3/uL 1.32-3.29 L MONO x10^3 (test code = 742-7) 0.74 10*3/uL 0.33-0.92 EOS x10^3 (test code = 711-2) 0.05 10*3/uL 0.03-0.39 BASO x10^3 (test code = 704-7) 0.04 10*3/uL 0.01-0.07 Lab Interpretation (test code = 05542-6) Abnormal [facility] acute hospital with [id number] 15:53:29* Test Item Value Reference Range Interpretation Comme nts WBC (test code = 6690-2) 5.10 4.30-11.10 RBC (test code = 789-8) 2.52 3.93-5.25 L HGB (test code = 718-7) 5.9 g/dL 11.6-15.0 L HCT (test code = 4544-3) 20.8 % 35.7-45.2 L MCV (test code = 787-2) 82.5 fL 80.6-95.5 MCH (test code = 785-6) 23.4 pg 25.9-32.8 L MCHC (test code = 786-4) 28.4 g/dL 31.6-35.1 L RDW-SD (test code = 54988-2) 49.4 fL 39.0-49.9 RDW-CV (test code = 788-0) 16.7 % 12.0-15.5 H PLT (test code = 777-3) 217 166-358 MPV (test code = 04180-4) 10.5 fL 9.5-12.9 NRBC/100 WBC (test code = 5418718806) 0.0 0.0-10.0 NRBC x10^3 (test code = 6724938819) See_Comment [Automated messa ge] The system which generated this result transmitted reference range: 10*3/?L. The reference range was not used to interpret this result as normal/abnormal. GRAN MAT (NEUT) % (test code = 770-8) 71.3 % IMM GRAN % (test code = 6152951945) 0.80 % LYMPH % (test code = 736-9) 11.6 % MONO % (test code = 5905-5) 14.5 % EOS % (test code = 713-8) 1.0 % BASO % (test code = 706-2) 0.8 % GRAN MAT x10^3(ANC) (test code = 9048357738) 3.64 10*3/uL 1.88-7.09 IMM GRAN x10^3 (test code = 3193432283) 0.04 10*3/uL 0.00-0.06 LYMPH x10^3 (test code = 731-0) 0.59 10*3/uL 1.32-3.29 L MONO x10^3 (test code = 742-7) 0.74 10*3/uL 0.33-0.92 EOS x10^3 (test code = 711-2) 0.05 10*3/uL 0.03-0.39 BASO x10^3 (test code = 704-7) 0.04 10*3/uL 0.01-0.07 Lab Interpretation (test code = 77511-4) [facility] [id number] 15:35:29* Test Item Value Reference Range Interpretation Comme nts FERRITIN (test code = 1679807032) 4.7 ng/mL 11.0-264.0 L ELENI (test code = ELENI) Biotin has been reported to cause a negative bias, interpret results relative to patient's use of biotin. Lab Interpretation (test code = 99114-9) [facility]normal [facility] [id number] 15:35:29* Test Item Value Reference Range Interpretation Comme nts FERRITIN (test code = 5312982257) 4.7 ng/mL 11.0-264.0 L ELENI (test code = ELENI) Biotin has been reported to cause a negative bias, interpret results relative to patient's use of biotin. Lab Interpretation (test code = 56482-3) Abnormal [facility] [id number] 15:35:09* Test Item Value Reference Range Interpretation Comme nts RETIC Count Automated (test code = 8576231213) 2.82 % 0.51-1.90 H RETIC Absolute Count (test c ode = 4535516690) 0.0637 0.0230-0.0950 IRF % (test code = 2445374661) 35.90 % 2.10-12.60 H RETIC-HE (test code = 9748280158) 20.8 pg 28.1-35.8 L Lab Interpretation (test cod e = 70906-8) Abnormal [facility] [id number] 15:35:09* Test Item Value Reference Range Interpretation Comme nts RETIC Count Automated (test code = 9611419000) 2.82 % 0.51-1.90 H RETIC Absolute Count (test c ode = 1911887807) 0.0637 0.0230-0.0950 IRF % (test code = 7075746158) 35.90 % 2.10-12.60 H RETIC-HE (test code = 0116564686) 20.8 pg 28.1-35.8 L Lab Interpretation (test cod e = 76176-0) [facility] [id number] 15:06:00* Test Item Value Reference Range Interpretation Comme nts ABO & RH (test code = 20) O POSITIVE IAT (test code = 1185) Negative [facility] [id number] 15:06:00* Test Item Value Reference Range Interpretation Comme nts ABO & RH (test code = 20) O POSITIVE IAT (test code = 1185) Negative [facility] (41153) (ALB,T.PRO,BILI T,BU/BC,ALT,AST,ALK PHOS)2023-08-19 14:58:23* Test Item Value Reference Range Interpretation Comme nts TOTAL BILI (test code = 1351920373) 0.5 mg/dL 0.1-1.1 BILI UNCON (test code = 8112530213) 0.3 mg/dL 0.1-1.1 BILI CONJ (test code = 5646355878) 0.0 mg/dL 0.0-0.3 T PROTEIN (test code = 8957961865) 6.3 g/dL 6.3-8.2 ALBUMIN (test code = 1386140032) 3.8 g/dL 3.5-5.0 ALK PHOS (test code = 1704007815) 83 U/L 34-122 ALTv (test code = 1742-6) 15 U/L 5-35 AST(SGOT) (test code = 1893317566) 29 U/L 13-40 Lab Interpretation (test cod e = 74091-4) Normal [facility] (82965) (ALB,T.PRO,BILI T,BU/BC,ALT,AST,ALK PHOS)2023-08-19 14:58:23* Test Item Value Reference Range Interpretation Comme nts TOTAL BILI (test code = 9644450321) 0.5 mg/dL 0.1-1.1 BILI UNCON (test code = 2628704504) 0.3 mg/dL 0.1-1.1 BILI CONJ (test code = 2963634737) 0.0 mg/dL 0.0-0.3 T PROTEIN (test code = 1756056951) 6.3 g/dL 6.3-8.2 ALBUMIN (test code = 8749316285) 3.8 g/dL 3.5-5.0 ALK PHOS (test code = 6431618370) 83 U/L 34-122 ALTv (test code = 1742-6) 15 U/L 5-35 AST(SGOT) (test code = 0141747291) 29 U/L 13-40 Lab Interpretation (test cod e = 12115-1) Normal [facility] METABOLIC PANEL (NA, K, CL, CO2, GLUCOSE, BUN, CREATININE, CA)2023-08-19 14:34:00* Test Item Value Reference Range Interpretation Comme nts NA (test code = 3245376469) 129 mmol/L 135-145 L K (test code = 9531363375) 3.4 mmol/L 3.5-5.0 L CL (test code = 2672483732) 101 mmol/L 98-108 CO2 TOTAL (test code = 2880833623) 22 mmol/L 23-31 L AGAP (test code = 8184256961) 6 2-16 BUN (test code = 3844490264) 8 mg/dL 7-23 GLUCOSE (test code = 6399679680) 103 mg/dL 70-110 CREATININE (test code = 2160-0) 0.71 mg/dL 0.50-1.04 CALCIUM (test code = 0541727950) 8.9 mg/dL 8.6-10.6 eGFR (test code = 07824-8) 95.1 mL/min/1.73m2 CKD-EPI eGFR (2020). Assuming creatinine has been stable day-to-day for at least three months, the eGFR indicates Category G1 (>= 90 mL/min/1.73 m2) Lab Interpretation (test code = 71446-0) Abnormal [facility] METABOLIC PANEL (NA, K, CL, CO2, GLUCOSE, BUN, CREATININE, CA)2023-08-19 14:34:00* Test Item Value Reference Range Interpretation Comme nts NA (test code = 8791089155) 129 mmol/L 135-145 L K (test code = 3360645082) 3.4 mmol/L 3.5-5.0 L CL (test code = 7326738756) 101 mmol/L 98-108 CO2 TOTAL (test code = 5365276385) 22 mmol/L 23-31 L AGAP (test code = 8482741869) 6 2-16 BUN (test code = 9802086716) 8 mg/dL 7-23 GLUCOSE (test code = 2886314515) 103 mg/dL 70-110 CREATININE (test code = 2160-0) 0.71 mg/dL 0.50-1.04 CALCIUM (test code = 5590904840) 8.9 mg/dL 8.6-10.6 eGFR (test code = 50560-5) 95.1 mL/min/1.73m2 CKD-EPI eGFR (2020). Assuming creatinine has been stable day-to-day for at least three months, the eGFR indicates Category G1 (>= 90 mL/min/1.73 m2) Lab Interpretation (test code = 73895-4) Abnormal [facility] WITH [id number] 13:56:00* Test Item Value Reference Range Interpretation Comme nts WBC (test code = 6690-2) 5.65 4.30-11.10 RBC (test code = 789-8) 2.32 3.93-5.25 L HGB (test code = 718-7) 5.4 g/dL 11.6-15.0 L HCT (test code = 4544-3) 19.0 % 35.7-45.2 L MCV (test code = 787-2) 81.9 fL 80.6-95.5 MCH (test code = 785-6) 23.3 pg 25.9-32.8 L MCHC (test code = 786-4) 28.4 g/dL 31.6-35.1 L RDW-SD (test code = 43128-9) 49.5 fL 39.0-49.9 RDW-CV (test code = 788-0) 16.8 % 12.0-15.5 H PLT (test code = 777-3) 215 166-358 MPV (test code = 09213-0) 10.3 fL 9.5-12.9 NRBC/100 WBC (test code = 3474083592) 0.0 0.0-10.0 NRBC x10^3 (test code = 4622860633) See_Comment [Automated messa ge] The system which generated this result transmitted reference range: 10*3/?L. The reference range was not used to interpret this result as normal/abnormal. GRAN MAT (NEUT) % (test code = 770-8) 73.7 % IMM GRAN % (test code = 4572859812) 0.40 % LYMPH % (test code = 736-9) 8.3 % MONO % (test code = 5905-5) 16.5 % EOS % (test code = 713-8) 0.2 % BASO % (test code = 706-2) 0.9 % GRAN MAT x10^3(ANC) (test code = 3107249796) 4.17 10*3/uL 1.88-7.09 IMM GRAN x10^3 (test code = 3173145153) 0.00-0.06 LYMPH x10^3 (test code = 731-0) 0.47 10*3/uL 1.32-3.29 L MONO x10^3 (test code = 742-7) 0.93 10*3/uL 0.33-0.92 H EOS x10^3 (test code = 711-2) 0.03-0.39 L BASO x10^3 (test code = 704-7) 0.05 10*3/uL 0.01-0.07 Lab Interpretation (test code = 48150-0) Abnormal [facility] WITH [id number] 13:56:00* Test Item Value Reference Range Interpretation Comme nts WBC (test code = 6690-2) 5.65 4.30-11.10 RBC (test code = 789-8) 2.32 3.93-5.25 L HGB (test code = 718-7) 5.4 g/dL 11.6-15.0 L HCT (test code = 4544-3) 19.0 % 35.7-45.2 L MCV (test code = 787-2) 81.9 fL 80.6-95.5 MCH (test code = 785-6) 23.3 pg 25.9-32.8 L MCHC (test code = 786-4) 28.4 g/dL 31.6-35.1 L RDW-SD (test code = 47415-5) 49.5 fL 39.0-49.9 RDW-CV (test code = 788-0) 16.8 % 12.0-15.5 H PLT (test code = 777-3) 215 166-358 MPV (test code = 32323-8) 10.3 fL 9.5-12.9 NRBC/100 WBC (test code = 3336276176) 0.0 0.0-10.0 NRBC x10^3 (test code = 5402529537) See_Comment [Automated messa ge] The system which generated this result transmitted reference range: 10*3/?L. The reference range was not used to interpret this result as normal/abnormal. GRAN MAT (NEUT) % (test code = 770-8) 73.7 % IMM GRAN % (test code = 1066798003) 0.40 % LYMPH % (test code = 736-9) 8.3 % MONO % (test code = 5905-5) 16.5 % EOS % (test code = 713-8) 0.2 % BASO % (test code = 706-2) 0.9 % GRAN MAT x10^3(ANC) (test code = 7813292317) 4.17 10*3/uL 1.88-7.09 IMM GRAN x10^3 (test code = 6462104351) 0.00-0.06 LYMPH x10^3 (test code = 731-0) 0.47 10*3/uL 1.32-3.29 L MONO x10^3 (test code = 742-7) 0.93 10*3/uL 0.33-0.92 H EOS x10^3 (test code = 711-2) 0.03-0.39 L BASO x10^3 (test code = 704-7) 0.05 10*3/uL 0.01-0.07 Lab Interpretation (test code = 27041-7) Abnormal [facility] History and Physical Notes Date/Time Note Provider Source 2023-08-19 13:53:46 Summary: [facility]: Clayton Manuel MD Date of Service: 08/19/2023 CHIEF COMPLAINT: Weakness, Fatigue Subjective History of Present Illness Ms. Ray is a 62 year old /White female with PMH significant for SLE, fibromyalgia, seizures, TIA (2020), sinus pauses s/p pacemaker placement, atrial tachycardia, stercoral ulcer of large intestine, colon polyps, sigmoid colon perforation, peptic ulcer disease, and TN, HLD who initially presented due to needing a pacemaker replacement. On presentation, she reports fatigue and weakness starting 2-3 weeks ago and occurring continuously. Patient reports no relief of fatigue symptoms with current medication regimen. Other symptoms include unintentional weight loss over the past 6 months. She was planning to have pace-maker change today but she was found to habve decrease in Hb to 5.4 before procedure and transferred to Medicine service. She also reports a three month history of new lower back pain that radiates to the R thigh and groin with minimal relief on current pain medication regimen. She rates the pain anywhere from an 8-9/10 on a typical day. She has not had pain like this in the past, but does have chronic muscle pain all over her body. Patient denies new abdominal pain, bloating, diarrhea, nausea, and vomiting. She reports chronic constipation due to chronic pain management with percocet for which she takes colace at her group home. She states that she has had an ostomy bag in the past and is very thorough when checking her BM to make sure that nothing has changed. She reports no change in color or consistency. Denies any symptoms currently, but had a UTI a few weeks ago that resolved with no complications on antibiotics. Reports a mild cough productive of clear sputum. Denies fever, chills, night sweats. PAST MEDICAL HISTORY Past Medical History: Diagnosis Date Allergic rhinitis B12 deficiency Chronic insomnia 10/16/2017 Chronic migraine without aura without status migrainosus, not intractable 10/16/2017 Chronic, continuous use of opioids 05/13/2020 Percocet Colon polyps Cyst of left kidney Discoid lupus 03/19/2019 Essential hypertension 10/16/2017 Fibromyalgia 10/16/2017 Gastroesophageal reflux disease, esophagitis presence not specified 10/16/2017 History of hepatitis C 10/16/2017 treated to cure in 2014 History of seizure 01/11/2019 History of systemic lupus erythematosus (SLE) 03/19/2019 History of urinary tract surgery 10/16/2017 Hyperthyroidism 01/25/2018 Incisional hernia, without obstruction or gangrene 10/04/2021 Kidney lesion, [place], right 05/01/2018 likely angiolipoma per Radiology Mixed hyperlipidemia 10/27/2018 Neuropathy 10/16/2017 Noncompliance with treatment regimen 05/19/2020 Pacemaker 10/16/2017 Parasomnia 10/16/2017 Prediabetes 05/17/2018 PUD (peptic ulcer disease) 10/16/2017 Stercoral ulcer of large intestine 04/07/2021 Added automatically from request for surgery [id number] Vitamin D deficiency Past Surgical History: Procedure Laterality Date APPENDECTOMY COLONOSCOPY Lower 02/16/2021 Surgeon: Mario Mg MD; Location: [facility] ([facility]) OR LOCATION DIVERTING COLOSTOMY N/A 05/13/2020 Surgeon: Srikanth Ventura MD; Location: [facility] ESOPHAGOGASTRODUODENOSCOPY N/A 11/08/2018 Surgeon: Roibn Cordova MD; Location: [facility] OR Location ESOPHAGOGASTRODUODENOSCOPY Upper 02/16/2021 Surgeon: Mario Mg MD; Location: [facility]OS[facility] ([facility]) OR LOCATION ESOPHAGOGASTRODUODENOSCOPY N/A 04/15/2021 Surgeon: Shaista Guerra MD; Location: [facility]OS[facility] ([facility]) OR LOCATION EXPLORATORY LAPAROTOMY N/A 05/13/2020 Surgeon: Srikanth Ventura MD; Location: [facility] HYSTERECTOMY LAPAROSCOPIC ASSISTED ROBOTIC ABDOMINAL WALL RECONSTRUCTION ([facility]X) N/A 12/28/2021 Surgeon: Dagoberto Shaw MD; Location: [facility] HEMAL FUNDOPLICATION REMOVAL OF OVARY/TUBE(S) ROBOTIC ASSISTED LAPAROSCOPIC COLOSTOMY REVERSAL ([facility]X) N/A 04/22/2021 Surgeon: Ludmila Ruiz MD; Location: [facility] SIGMOIDECTOMY N/A 05/13/2020 Surgeon: Srikanth Ventura MD; Location: [facility] Location SURGICAL HISTORY OTHER (SHX) Microplasty surgery for urinary incontinence Family History Problem Relation Age of Onset Coronary Heart Disease Mother CABG in 50s Stroke Mother ALLERGIES Allergies Allergen Reactions Adhesive Other - See comments redness Baclofen Hallucinations Ciprofloxacin Hives Contrast [Iodine And Iodide Containing Products] Hives Cymbalta [Duloxetine] Other - See comments Transaminitis Depakote [Divalproex Sodium] Hives Gabapentin Palpitations Horizant [Gabapentin Enacarbil] Unknown - See comments Lisinopril Cough Losartan Cough Macrobid [Nitrofurantoin Monohyd/M-Cryst] Hives Midrin [Kbysyvi-Zllbakfrw-Nspkybrhoylh] Hives and Shortness of Breath Morphine Sulfate Hives Robaxin [Methocarbamol] Diarrhea Septra I.V. Hives and Shortness of Breath Sinografin [Diatrizoate And Iodipamide Amber] Hives Topiramate Other - See comments Tingling, overwhelming feeliing Toradol [Ketorolac Tromethamine] Hives and Other - See comments Restless legs Tositumomab Unknown - See comments Tramadol Other - See comments shaky legs Pregabalin Swelling MEDICATIONS Medications Prior to Admission Medication Sig Dispense Refill Last Dose ondansetron 4 mg tablet atorvastatin 10 mg tablet propranoloL 20 mg tablet cetirizine 10 mg tablet Take 1 tablet by mouth. oxyCODONE-acetaminophen 7.5-325 mg per tablet pyridoxine HCl, vitamin B6, (VITAMIN B-6 ORAL) Take 1 tablet by mouth. DILTIAZEM HCL ORAL Take 120 mg by mouth every 8 (eight) hours. famotidine 40 mg tablet Take 1 tablet by mouth in the morning. furosemide 20 mg tablet Take 1 tablet by mouth in the morning. qAM LEVETIRACETAM 500 mg tablet TAKE 2 TABLETS BY MOUTH TWICE DAILY (Patient taking differently: Take 2 tablets by mouth in the morning and 2 tablets in the evening.) 120 tablet 0 amitriptyline 100 mg tablet Take 1 tablet by mouth at bedtime. clopidogreL 75 mg tablet Take 1 tablet in the morning. [DISCONTINUED] cefpodoxime 200 mg tablet cloNIDine 0.1 mg tablet Take 1 tablet by mouth 4 (four) times daily. PRN, up to TID [DISCONTINUED] meloxicam 15 mg tablet Compression Socks, Medium Misc Use as directed 2 Each 0 [DISCONTINUED] doxycycline monohydrate 100 mg capsule Take 1 capsule by mouth in the morning and 1 capsule in the evening. 60 capsule 0 Cyanocobalamin 1,000 mcg tablet Take 1 tablet by mouth. Taking hydrALAZINE 25 mg tablet daily multivit-min/ferrous fumarate (MULTI VITAMIN ORAL) Take 1 tablet by mouth. Taking Lactobacillus acidoph-pectin capsule Take 1 capsule by mouth in the morning. Taking [DISCONTINUED] loperamide (IMODIUM A-D) 2 mg capsule Take 1 capsule by mouth every 4 (four) hours as needed for Diarrhea. acetaminophen 650 mg CR tablet Take 1 tablet by mouth every 8 (eight) hours as needed for Pain. Taking docusate 100 mg capsule Take 100 mg by mouth daily. Taking polyethylene glycol 3350 (MIRALAX ORAL) Take by mouth. prn [DISCONTINUED] omeprazole 40 mg capsule Take 1 capsule by mouth 2 (two) times daily. 60 capsule 3 Not Taking [DISCONTINUED] tiZANidine 2 mg tablet 1 tablet at bedtime. Not Taking hydrOXYchloroQUINE 200 mg tablet Take 1 tablet by mouth in the morning and 1 tablet in the evening. 08/18/2023 SOCIAL HISTORY Social History Socioeconomic History Marital status: Number of children: 2 Highest education level: Associate degree: academic program Occupational History Occupation: disabled Tobacco Use Smoking status: Never Smokeless tobacco: Never Vaping Use Vaping status: Never Used Substance and Sexual Activity Alcohol use: Yes Comment: Rare occasions Drug use: No Sexual activity: Not Currently Partners: Male Social History Narrative Moved here from [place] 09/2017. Objective Vitals: 08/19/23 1442 08/19/23 1445 08/19/23 1500 08/19/23 1506 BP: (!) 156/85 (!) 156/85 (!) 152/87 (!) 164/84 Pulse: 94 96 94 95 Resp: 12 12 20 12 Temp: 36.5 ?C (97.7 ?F) 36.4 ?C (97.6 ?F) 36.6 ?C (97.8 ?F) 36.8 ?C (98.2 ?F) TempSrc: Oral Oral SpO2: 95% 98% 98% 98% Weight: Intake/Output: No intake or output data in the 24 hours ending 08/19/23 1611 General: alert x oriented x 3, NAD HEENT: neck supple, trachea midline, pale mucus membranes Cardio: RRR, S1 and S2 normal, S4 heard Respiratory: CTA b/l Abdominal: soft, non-distended, non-tender, BS x 4 normoactive Extremities: no cyanosis, peripheral edema present on b/l lower extremities Skin: no rashes, ecchymosis MSK/Neuro: strength/sensation grossly intact, no focal neuro deficits LABS/IMAGING Labs (last 24 hours): Chemistry CBC LFTs Coags, other 129 (L) 101 8 103 5.10 5.9 (L) 217 AST: 29 ALT: 15 PT: - INR: - 3.4 (L) 22 (L) 0.71 20.8 (L) AP: 83 T Aleksandr: 0.5 PTT: - eGFR: 95.1 Ca: 8.9 % Denae: 71.3 Prot: 6.3 Alb: 3.8 Lact: - Procal: - Mg: - PO4: - ANC: 3.64 pBNP: - Trop I: - Reticulo count 2.82%H RI 1.3%, hypoproloferation IRF% 35.90H Ferritin 4.7, vitB12 239L Folate9.3 Iron 21L TIBC 494H HbA1c 5.0 Assessment & Plan Lazaro Ray is a 62 year old female with PMH as listed above, admitted to the hospital with: # Anemia 2/2 possible TALIB, VitB12 deficiency vs acute GI bleeding # Hx of Peptic Ulcer Disease # Hypertension # Hx of TIA/Stroke on clopidogrel # Hyponatremia Ms. Ray presented with multiple weeks of weakness and fatigue and was found to have hemoglobin of 5.4 on admission with low iron and high TIBC indicating a likely iron deficiency anemia. With her history of GI complications/ peptic ulcer disease, favor a GI source. Will initiate IV PPI. She has also lost weight unintentionally over the past 6 months, so important to rule out malignancy. Will transfuse pRBC but monitor volume status given cardiac history - Transfuse one unit of pRBC and wait to assess volume status - If not volume overloaded give another unit - If volume overloaded, give 20 mg IV lasix - H. Pylori testing- has a hx of ulcers with no h. pylori noted on biopsy (2021) - diff consult by pahology - start cyanocobalamin (B12) - consider IV iron - Pantoprazole 40mg IV BID - GI soft diet - Bowel regimen - Consult cards about potential pacemaker replacement Tuesday - hold home clopidgrel - hold home propranolol, diltiazem, clonizide PRN # SLE # Fibromyalgia # HL # Hx of seizure - c/w Plaquenil - c/w arotvastatin - c/w Keppra - c/w VitB6 Pain: Improved- tylenol Stress Ulcer: pantoprazole Code Status: Addressed: Code Status: Full Code Madiha Duke, MS3 I have verified the medical student documentation and/or findings, including the history, physical exam, and medical decision making. Additionally, I have personally performed or re-performed the physical exam and medical decision making activities of this patient's evaluation and management service. Lexx Chaudhari MD PGY-2 Internal Medicine [facility] CURRENT MEDICATIONS amitriptyline, 100 mg, QHS [START ON 08/20/2023] atorvastatin, 10 mg, QHS hydroxychloroquine, 200 mg, BID lactated ringers, 1,000 mL, ONCE levETIRAcetam, 1,000 mg, BID oxyCODONE-acetaminophen, 2 tablet, Q8H pantoprazole (PROTONIX) IV, 40 mg, Q12H [START ON 08/20/2023] pyridoxine (VITAMIN B-6), 25 mg, DAILY [START ON 08/20/2023] sennosides-docusate sodium, 1 tablet, DAILY vitamin B-12, 1,000 mcg, DAILY acetaminophen, 650 mg, Q6HPRN naloxone, 0.4 mg, PRN Associated attestation - Chi Hooker MD - 08/19/2023 4:30 PM CDT I personally examined the patient on 08/19/[address] Chaudhari resident's note as written, including any changes or additions that the resident may have made to Madiha Duke medical student's note with the following additions: Add diagnosis: Symptomatic Iron Deficiency Anemia likely 2/2 occult GIB given both PUD and CRS history. -keep Hg >7 -spot dose Lasix to avoid TACO -low threshold to consult GI if signs of active GIB -likely, will need to reschedule ppm generator exchange as outpatient I actively participated in the decision making process. Please see the resident's note for additional details. Chi Hooker M.D., Ph.D. Department of Internal Kitchen ChefWelding Machine Operator Plasma Arc | [employer] [facility] - [facility] Procedure Notes Date/Time Note Provider Source 2023-09-09 13:57:40 Dual Chamber Pacemaker Generator Change Out Procedure Note Procedure: Dual Chamber Pacemaker Generator Change Out Indication: Pulse Generator LAUREEN Technique: The patient presented to the electrophysiology lab in the fasting state. After obtaining informed consent and administrating preoperative antibiotics, the patient was prepped and draped in the usual sterile fashion. Sedation was initiated under anesthesia team guidance. Local anesthesia was administered over the previously implanted pulse generator. An incision was made and using sharp and blunt dissection the pulse generator was freed up from the surrounding tissue and removed from the pocket. The leads were disconnected and examined for structural integrity and absence of "make-break" artifacts. Pacing and sensing thresholds, lead impedances and absence of diaphragmatic stimulation were confirmed. All leads were connected to the appropriate posts in the new pulse generator. The wound was irrigated with a large amount of antibiotic solution. Adequate hemostasis was confirmed. The new pulse generator was placed into the pocket. Excess leads were coiled behind the device. Wound was closed with two layers of absorbable sutures. Skin was closed with Dermabond glue. Postoperative interrogation confirmed adequate pacemaker function. The patient tolerated the procedure well and there were no acute complications. Device Characteristics: Device Characteristics: Pulse generator: Thumb Reading Model L311 RA Lead: Medtronic [id number], P waves: 2.2 mV, Threshold 0.5 V@0.4msec, Impedance 776 ohms RV Lead: Medtronic 5076, R-waves 10.0 mV, Threshold 1.2 V@0.4msec, Impedance 430 ohms Final Programming: DDDR 60-130 Impression: Successful Dual Chamber Pacemaker Generator Change Out Plan: Follow up in device clinic in 2 weeks for wound check. Discharge home today if patient remains stable. Follow up in EP clinic in 6-8 weeks. Alf Carrillo MD Cardiac Electrophysiology [facility] Notes Date/Time Note Provider Source 2024-01-03 08:06:40 Clearance faxed back to [facility] Oral [facility] Facial Surgery. AIL Freed RN [facility] 2024-01-02 16:26:32 Received a cardiac clearance from [facility] oral surgery, placed in Dr. Benson's folder for review. INE SHORTHAND REPORTER Jaimie Sykes MA [facility] 2023-09-09 18:19:57 Patient pain management was a success, and her Iv was removed. Discharge instructions was provided to her. Procedure site C/D/I. Patient understands and was escorted to [facility] to wait for her transportation. Maryann Santiago RN [facility] 2023-09-07 12:09:29 [facility] EP LAB PRE-CALL INSTRUCTIONS EP Instructions were sent to patient via: Other telephone Your physician has determined that you need to undergo a(n) Pacemaker Change Out procedure. Listed below are some instructions for you to follow prior to the procedure. Do not eat or drink anything after midnight the night before the procedure, except for enough water to take your medications if so directed. Take all medications except do not take metformin (Glucophage) 2 days prior to the procedure and do not take insulin or furosemide (lasix) the day of the procedure. If you are on blood thinners special instructions will be given to you prior to the procedure. If you are allergic to iodine or shellfish, take pre-treatment medications as directed. Please call your referring physician for prescription. Bring a list of all current medications. Bring one adult family member or friend with you to drive you home, as you will be unable to drive for 48 hours after the procedure. Due to limited space and patient privacy, only one (1) visitor is permitted with the patient while they are recovering in the recovery area. No children under the age of 14 years will be allowed in recovery area. Please park in the Hospital Garage via [address] from either [address] or [address]. Bring your parking ticket with you to be validated, only one parking ticket may be validated per patient. There may be a possibility of hospital admission or late evening discharge; therefore, bring leisure reading and an overnight bag. On the day of your procedure, come directly to the Electrophysiology Lab ingot buggy operator desk, located on the 6th floor of [facility] ([phone]- [phone].) You will be escorted to the Cardiac Cath/EP recovery room. Please call the Electrophysiology Lab at if you have any questions regarding your procedure. Date of Procedure: 09/09/2023 Time of Procedure: 614 Vendors Needed: Vendors Verified: Anesthesia Verified: Anesthesia Consent: Drug Allergies? Yes see chart Labs Verified? Note in Chart and any Important Info needed for the case: Instructions given to patient: yes Patient provided with preferred teaching of verbal information on 09/07/2023. Shows readiness to learn. Verbal instruction teaching provided. Individual is able to read and verbalizes understanding of teaching provided. Brynn Ramos RN [facility] 2023-09-01 13:07:54 Called all numbers on file, left voicemails. Relative Lilian called back and gave me the phone number for group home pt is at. [phone] I was able to reach pt at number listed above, she agreed to 09/08 for PM Gen Change with Dr. Milner. Ruthie Carrasco [facility] 2023-08-23 10:03:32 TRANSITIONAL CARE MANAGEMENT ASSESSMENT 08/23/2023 Lazaro Ray [id number] Lazaro Ray is a 62 year old /White female was admitted on 08/19/[address] She was discharged on 08/22/23 with discharge disposition of HR- Routine Discharge. Admitting Physician: Chi Hooker Discharge Diagnosis: Symptomatic Acute Anemia likely 2/2 TALIB No linked episodes TCM Wmh-ctak-ib-face outreach documentation: Discharge Assessment Chart Assessed: 08/23/23 Chart Reviewed - Post Discharge Call Deferred due to Change in Discharge Status.: Discharged to Other (LTC) [address] [address] (Ph) [phone] (F) [phone] Future Appointments: Future Appointments Provider Department Dept Phone 09/22/2023 10:40 AM Jim Carrillo MD [facility] Cardiology, [facility] [phone] 11/22/2023 10:30 AM Carola Cruz MD [facility] [phone] Transition CM follow-up call deferred at this time. Arina Ramsay RN, MSN, MEDSURG-BC, CCRN, CCM Transitions of Brand Strategist Proficient Guillotine Trimmer Ambulatory Referral Coordination Office: [phone] Arina Ramsay RN [facility] 2023-08-21 19:46:15 Problem: Falls, Risk of Goal: Absence of falls Outcome: Progressing as expected Problem: Pain Goal: Control of pain at or below patient's documented comfort goal Outcome: Progressing as expected Goal: Reduction in pain sensation Outcome: Progressing as expected Problem: Discharge Planning Goal: Adequate for discharge Outcome: Progressing as expected Goal: Effective communication Outcome: Progressing as expected Problem: Bleeding, Risk of Goal: Absence of impaired coagulation signs and symptoms Outcome: Progressing as expected Goal: Absence of active bleeding Outcome: Progressing as expected Shayy Resendiz RN [facility] 2023-08-21 10:45:48 Problem: Falls, Risk of Goal: Absence of falls Outcome: Progressing as expected Problem: Pain Goal: Control of pain at or below patient's documented comfort goal Outcome: Progressing as expected Goal: Reduction in pain sensation Outcome: Progressing as expected Problem: Discharge Planning Goal: Adequate for discharge Outcome: Progressing as expected Goal: Effective communication Outcome: Progressing as expected Problem: Bleeding, Risk of Goal: Absence of impaired coagulation signs and symptoms Outcome: Progressing as expected Goal: Absence of active bleeding Outcome: Progressing as expected [facility] 2023-08-20 22:57:21 Problem: Falls, Risk of Goal: Absence of falls Outcome: Progressing as expected Problem: Pain Goal: Control of pain at or below patient's documented comfort goal Outcome: Progressing as expected Goal: Reduction in pain sensation Outcome: Progressing as expected Problem: Discharge Planning Goal: Adequate for discharge Outcome: Progressing as expected Goal: Effective communication Outcome: Progressing as expected Problem: Bleeding, Risk of Goal: Absence of impaired coagulation signs and symptoms Outcome: Progressing as expected Goal: Absence of active bleeding Outcome: Progressing as expected [facility] 2023-08-20 10:22:07 Problem: Falls, Risk of Goal: Absence of falls Outcome: Progressing as expected Problem: Pain Goal: Control of pain at or below patient's documented comfort goal Outcome: Progressing as expected Goal: Reduction in pain sensation Outcome: Progressing as expected Problem: Discharge Planning Goal: Adequate for discharge Outcome: Progressing as expected Goal: Effective communication Outcome: Progressing as expected Problem: Bleeding, Risk of Goal: Absence of impaired coagulation signs and symptoms Outcome: Progressing as expected Goal: Absence of active bleeding Outcome: Progressing as expected [facility] 2023-08-20 00:20:25 Problem: Falls, Risk of Goal: Absence of falls Outcome: Progressing as expected Problem: Pain Goal: Control of pain at or below patient's documented comfort goal Outcome: Progressing as expected Goal: Reduction in pain sensation Outcome: Progressing as expected Problem: Discharge Planning Goal: Adequate for discharge Outcome: Progressing as expected Goal: Effective communication Outcome: Progressing as expected Problem: Bleeding, Risk of Goal: Absence of impaired coagulation signs and symptoms Outcome: Progressing as expected Goal: Absence of active bleeding Outcome: Progressing as expected [facility] Tayler Moya RN [facility] 2023-08-19 19:19:32 Problem: Falls, Risk of Goal: Absence of falls Outcome: Progressing as expected Problem: Pain Goal: Control of pain at or below patient's documented comfort goal Outcome: Progressing as expected Goal: Reduction in pain sensation Outcome: Progressing as expected Problem: Discharge Planning Goal: Adequate for discharge Outcome: Progressing as expected Goal: Effective communication Outcome: Progressing as expected Problem: Bleeding, Risk of Goal: Absence of impaired coagulation signs and symptoms Outcome: Progressing as expected Goal: Absence of active bleeding Outcome: Progressing as expected [facility] 2023-08-19 16:36:21 RN escorted pt to floor with RBCs still running. No distress noted. Malu Nguyen RN [facility] 2023-08-19 15:30:36 Report to 10A RN, RBCs running, RN to escort pt to floor. No distress noted. [facility] 2023-08-19 09:34:07 AdmissionCare Guideline: Anemia (Iron Deficiency or Unspecified) - OBS, Observation Based on the indications selected for the patient, the bed status of Observation was determined to be MET The following indications were selected as present at the time of evaluation of the patient: - Observation Care Admission Criteria - Observation care is indicated for 1 or more of the following: - Active bleeding present or cannot be excluded (eg, need for serial hematocrit measurements) AdmissionCare documentation entered by: Chi Hooker [facility] [employer], 28th edition, Copyright ? 2023 [facility] [employer] [facility] All Rights Reserved. [id number]:07-05:00 IM-INTERNAL MEDICINE STAFF [facility] 2023-08-15 16:01:18 Procedure has been scheduled to Tuesday08/18/2023 at 0800. Patient will notify medical transportation in the morning. Casie Christensen RN [facility] 2023-08-15 10:38:42 Images from the original note were not included. Pt for device change today Malu Nguyen, automation machine operator Nurse5 days ago MD Patient is requesting if her generator change out could be made "MRI safe". I informed her I wasn't sure if that was possible but she insisted I still made the request. Please relay to Dr. Milner. Thanks Carmencita Allen RN [facility] 2023-08-12 16:14:18 Charge nurse Edwardo relayed per primary team, no iodine prophylaxis needed at this time for gen change procedure 08/15/23. [facility] 2023-08-10 15:00:00 [facility] EP LAB PRE-CALL INSTRUCTIONS EP Instructions were sent to patient via: Other - telephone Your physician has determined that you need to undergo a(n) Pacemaker Change Out procedure. Listed below are some instructions for you to follow prior to the procedure. Do not eat or drink anything after midnight the night before the procedure, except for enough water to take your medications if so directed. Take all medications except do not take metformin (Glucophage) 2 days prior to the procedure and do not take insulin or furosemide (lasix) the day of the procedure. If you are on blood thinners special instructions will be given to you prior to the procedure. If you are allergic to iodine or shellfish, take pre-treatment medications as directed. Please call your referring physician for prescription. Bring a list of all current medications. Bring one adult family member or friend with you to drive you home, as you will be unable to drive for 48 hours after the procedure. Due to limited space and patient privacy, only one (1) visitor is permitted with the patient while they are recovering in the recovery area. No children under the age of 14 years will be allowed in recovery area. Please park in the Hospital Garage via [address] from either [address] or [address]. Bring your parking ticket with you to be validated, only one parking ticket may be validated per patient. There may be a possibility of hospital admission or late evening discharge; therefore, bring leisure reading and an overnight bag. On the day of your procedure, come directly to the Electrophysiology Lab ingot buggy operator desk, located on the 6th floor of [facility] (3A- [phone].) You will be escorted to the Cardiac Cath/EP recovery room. Please call the Electrophysiology Lab at if you have any questions regarding your procedure. Patient instructed to hold FUROSEMIDE the morning of procedure. Date of Procedure: 08/15/23 Time of Procedure: 614 Vendors Needed: Vendors Verified: Anesthesia Verified: Anesthesia Consent: Drug Allergies? Yes Labs Verified? Note in Chart and any Important Info needed for the case: Instructions given to patient: yes Patient provided with preferred teaching of verbal information on 08/10/23. Shows readiness to learn. Verbal instruction teaching provided. Individual is able to read and verbalizes understanding of teaching provided. [facility] [employer] 2023-07-25 10:53:32 EP Faculty Brief Note Patient seen in device clinic in [facility] on 07/21/2023. Patient with Medtronic dual chamber pacemaker which was noted to have < 2 mo battery remaining. Discussed generator change procedure and risks, which include but are not limited to bleeding, vascular trauma, infection. Patient expresses understanding and is amenable to proceed. Will schedule outpatient pacemaker generator change. Alf Carrillo MD [facility] [employer] 2023-06-27 10:30:00 Images from the original note were not included. Venipuncture collection performed by clean technique on the right anticubitus. Total of 1 attempts were made. Slight pressure and a bandage/dressing were applied to the site(s). The patient experienced no complications. The following specimens were processed according to instructions and sent to [facility] laboratories per lab order on 06/27/2023 : LT BLUE SST 3 RED LAV 2 PPT DK GREEN (LiHep) DK GREEN (SodH) IRWIN DK BLUE (K2) DK BLUE (S) ACD Blood Culture NIPT/NTD [facility] 2023-05-26 09:31:57 Patient has been scheduled. Thank you. Jacquie Jones [facility] 2023-05-26 08:49:45 Copied from [facility] #[id number]. 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 Please call Jenna at [phone] Lucy Milian [facility] 2023-05-17 19:07:26 Please provide a date for surgery to the patient and a preop appointment. Thanks [facility]-PLASTIC AND RECONSTRUCTIVE SURGERY STAFF [facility] 2023-05-17 11:52:53 I spoke with the patient and she accepted the surgery date of 07/07/23. I scheduled her pre-op on 06/07/23, she will bring her garment. Moira Moira Puri [facility] 2023-05-12 08:24:24 I do not see records from her Pain management team; we will need to coordinate her post-op pain care. Quynh, please contact pt to remind her that we need to know what that physician wants to do about her post-op care. She will need to stop her ASA 1 week ahead and p-op, and her Plaquenil 6 weeks pre- and p-op. We can offer her a date. We need to place an [employer] [facility] consult, and we will need a rep to assist with her pacemaker, as she will need to have a magnet placed DOS. Quynh, please help uscoordinate all of this. Moira, please make her pre-op appt 1 mo ahead as I am concerned about all of her comorbidities and the recent rash she had. [facility]-PLASTIC AND RECONSTRUCTIVE SURGERY STAFF [facility] 2023-05-10 15:02:15 Following up. Please call the patient for scheduling. Jena Dniero [facility] 2023-04-28 07:47:14 Lazaro Ray is a 62 year old female The patient wants to proceed with surgery, does the patient need to do anything prior to scheduling? [facility] 2023-04-28 07:42:17 Images from the original note were not included. Lazaro Ray is a 62 year old female Received APPROVAL fax from [facility] for the following: CPT Codes: 29693, 85098 Effective Dates: 05/23/2023 - 08/21/2023 Authorization #: [id number] [facility] 2023-04-26 10:23:05 Images from the original note were not included. Lazaro Ray is a 62 year old female Pre-determination has been SUBMITTED to [facility] for the following: CPT Codes: 17987, 45013 Pended Authorization #: [id number] Jena Bar [facility] 2023-03-03 10:22:42 Duplicate encounter, closing INE SHORTHAND REPORTER Yamilet Coombs MA [facility] 2023-03-01 08:51:14 Pt needs to be seen in OV with me to coordinate her complex needs. Dr. Benson approves bridging from ASA to Eliquis; Rheumatology has approved holding Plaquenil. I need to hear about her p-op resources as she states she plans to stay in a Nursing facility of some kind, which doesn't always provide transportation for her OVs. She will need an [facility] referral if we plan to go ahead and we need to coordinate her pain management (Cristal please help us with that) if we proceed with surgery. AND she will need an extension on her approval. [facility]-PLASTIC AND RECONSTRUCTIVE SURGERY STAFF [facility] 2023-02-24 08:42:32 Encounter closed INE SHORTHAND REPORTER Amna Wolf RN [facility] 2023-02-24 08:35:20 Will do, thank you! Moira, we can offer the patient a surgical date. Cristal, please submit an email to [facility] so they have an opportunity to review her records pre-op. Thanks! [facility]-PLASTIC AND RECONSTRUCTIVE SURGERY STAFF [facility] 2023-02-24 08:15:26 Dr. Soto, Yes, please follow your protocol as outlined. [facility] 2023-02-24 07:48:48 Thank you, Dr. Benson. Would you be amenable to stopping her daily ASA 1 week prior until one week after, or after we complete the anticoagulation I use for 10 - 30 days p-op? We could bridge her w Eliquis, holding the dose the night before, AM & PM dose day of surgery, resuming Eliquis the day after her procedure? Wanda Soto [facility] 2023-02-23 21:06:10 Ok to proceed with surgery. Moderate cardiac risk. [facility] 2023-02-23 14:55:43 Received preop clearance and anticoagulation guidance request for Plastic surgery from Dr Soto. Medical clearance form placed in nurse basket at [facility]. Turn around time for forms is typically 5-7 business days. Once completed will be faxed to the requesting office. KRYSTIAN: 01/13/2023 Device clinic OV: 02/17/23 Anticoagulation: Plavix Date of last echocardiogram: 04/23/21 Date of last stress test: none Date of last EK01/13/[address] Soto focused on the the verbiage: telling patient that she must: "Patient was counseled for lifestyle modifications including: diet, exercise and weight loss." [facility] 2023-02-23 14:46:35 Received preop clearance and anticoagulation guidance request for Plastic surgery . Medical clearance form placed in nurse basket at [facility]. Turn around time for forms is typically 5-7 business days. Once completed will be faxed to the requesting office. KRYSTIAN: 01/13/23 Device clinic OV: 02/17/23 Anticoagulation: plavix Date of last echocardiogram:04/23/21 Date of last stress test:none Date of last EK01/13/23 AIL Wolf RN [facility] 2023-02-04 16:10:28 Jerrica Rodriguez, I spoke with Daya from the device clinic and was able to get you in on 02/17/23 at 2:30pm At the [facility] Cardiac clinic [address] [place] [address] [facility] [address] [phone]. [phone] This will give the doctors plenty of time to get you ready for your surgery. I also left you a voice message on your phone. Please let us know that you have received this message. Thank you for using [facility] [employer] to manage your healthcare needs, Sincerely, AMNA WOLF RN 02/04/2023 4:14 PM AIL Wolf RN [facility] 2023-01-27 16:53:12 Quynh, pt saw her orchid hand as instructed, but he recommended weight loss and exercise, did not clear for surgery. Pre-D submission hinged on that and has NOT happened as pt is not cleared and was in fact told to lose weight. INE SHORTHAND REPORTER [facility]-PLASTIC AND RECONSTRUCTIVE SURGERY STAFF [facility] 2023-01-27 16:31:17 Patient would like to get surgery schedule. Please advise on date. AIL Baer RN [facility] 2022-10-19 11:16:42 Formatting of this n ote might be different from the original. Patient has been scheduled with MONALISA Ontiveros for 10/26/2022 at 11 AM. Chandler Neff MA [facility] 2022-10-18 17:27:51 Formatting of this n ote might be different from the original. Called patient and discussed peeling with patient, that it is to be expected as part of the healing process. Patient noted the clobetasol helped the itching, but the peeling started several days afterwards and and was painful. Patient to call the clinic with any further questions. KIZZY-DERMATOLOGY [facility] 2022-10-18 12:51:13 Formatting of this n ote might be different from the original. That is to be expected as the rash heals and may last up to 2 weeks. Continue w topicals. [facility] 2022-10-18 10:34:17 Formatting of this n ote might be different from the original. Routing to provider and notified patient via Sierra Foss LVN [facility] 2022-10-18 09:49:36 Formatting of this n ote might be different from the original. COLTON called patient and LVM for patient to call back to schedule a follow up with MONALISA Ontiveros per provider request. [facility] 2022-10-18 08:20:22 Formatting of this n ote might be different from the original. I reviewed her note from Dermatology. We [...] full coverage over the surgical sites, etc. [facility]-PLASTIC AND RECONSTRUCTIVE SURGERY STAFF [facility] 2022-10-14 15:19:16 Formatting of this n ote might be different from the original. Routing to MD to see if a clearance letter is recommended. [facility] 2022-10-14 11:41:12 Formatting of this n ote might be different from the original. Lazaro Ray is a 61 year old female Patient states feet are peeling and she has been using rx given to her for bleeding vesicles. Last night patient found spot on foot and this morning her feet on peeling and she doesn't know if this is supposed to be happening or if something is wrong. Please advise. Birgit Estes [facility] 2022-10-07 11:07:07 Formatting of this n ote might be different from the original. Patient was seen in clinic today. Sierra Foss LVN [facility] 2022-10-07 11:00:00 Formatting of this n ote is different from the original. Images from the original note were not included. Venipuncture collection performed by clean technique on the left anticubitus. Total of 2 attempts were made. Slight pressure and a bandage/dressing were applied to the site(s). The patient experienced no complications. The following specimens were processed according to instructions and sent to [facility] laboratories per lab order on 10/07/2022 : LT BLUE SST 5 RED LAV 2 PPT 1 DK GREEN (LiHep) DK GREEN (SodH) IRWIN DK BLUE (K2) DK BLUE (S) ACD Blood Culture NIPT/NTD [facility] 2022-10-06 12:24:03 Formatting of this n ote might be different from the original. Let her know to keep appt. Would still like to evaluate her rash in person [facility] [facility] 2022-10-06 10:08:41 Formatting of this n ote might be different from the original. Lazaro Ray is a 61 year old female. Patient is calling because she has an appointment for tomorrow (10/07) but wants to clarify if she will be able to go. She states that after her appointment on 09/16, she was supposed to get labs completed; however, she was not able to get them done. She states that her nurse at the group home would be able to complete the labs, because she had labs done a few days prior to appointment and would just use the blood already taken. She said that then the results would be sent to Dr. Mera but they were not sent. She wants to know if she will still be able to go to appointment. [phone] (home) . Thank you. Lilian House [facility] 2022-09-21 13:02:55 Formatting of this n ote might be different from the original. MC message asking patient to provide fax number to the facility she is staying at for lab orders to be sent. Sierra Foss LVN [facility] 2022-09-17 15:58:19 Formatting of this n ote might be different from the original. Lazaro Ray is a 61 year old female Pt was seen in clinic 09/16/22 and left without doing her labs. Pt is in group home and would like to see if orders can be sent there so they can do her lab and send over results.Please advise [phone] (home) Shantell Bejarano [facility] 2022-09-10 14:11:33 Formatting of this n ote might be different from the original. Images from the original note were not included. Received message from [facility] clinic nurse, called back to patient and voicemail answered. Home monitor reviewed, no anomalies noted. No high rate events recorded. No indication on home monitoring site of why it would be alerting her. It is possible the cellular connection has been intermittent. Left pt message she can call back to device clinic [phone], would advise if she is having chest pain to seek ER care or call 911. Left help line phone number to [employer] home monitoring to call and they can assist to troubleshoot if the monitor is not connecting as expected, but device is currently connecting. Will forward update to [facility] as well. Daya Arboleda RN [facility] 2022-09-10 13:51:15 Formatting of this n ote might be different from the original. Received call regarding pacemaker monitor alarming. Stated she has sent the recording multiple times, still alarming, c/o chest pain/pressure 04/16, attempted to notify device clinic, [facility] with mobile #. Advised patient to Seek medical attention as pacemaker continues alarming, chest pain / pressure. Verbalized understanding Amna Wolf RN [facility]
--- NOTE | 2024-05-25 02:31 | RAD REPORT ---
EXAM: Extrem Venous W Compress Aleksandr US Bilateral Lower Extremity Venous Duplex Doppler HISTORY: Pain, Swelling COMPARISON: None TECHNIQUE: Grayscale, color Doppler, duplex Doppler, spectral Doppler images and analysis with compre ssion and augmentation of right and left lower extremity veins. FINDINGS: Right and Left common femoral, greater saphenous, femoral, deep (profunda) femoral, popliteal, development system efficiency manager ior tibial veins unremarkable without evidence of clot. IMPRESSION: No sonographic evidence of right or left lower extremity DVT. Electronically signed by: Jose Angel Dewitt MD 05/25/2024 02:12 AM CDT RP Due to temporary technical issues with the PACS/[employer] reporting system, reports are being jaci d by the in-house radiologist without review as a courtesy to ensure prompt reporting the interpreting radiologist is fully responsible for the content of the report. Transcribed Date/Time: 05/25/2024 2:30 AM
[2024-05-25] MEDS ORDERED: ONDANSETRON 4 MG/2 ML VIAL ONE (03:44)
[2024-05-25] MEDS ORDERED: NA CHLORIDE 0.9% 500 ML ONE (03:45)
[2024-05-25] MEDS ORDERED: BACI/NEOMYCIN/POLY OINT 15GM TOP ONE (03:45)
[2024-05-25] MEDS ORDERED: HYDROCODONE/APAP 7.5/325 MG TAB ONE (03:45)
[2024-05-25] MEDS ORDERED: HYDROMORPHONE HCL 1 MG/ML INJ ONE (04:32)
[2024-05-25 04:50] LABS: Absolute Basophils 0.1 K/uL (0-0.5); Absolute Eosinophils 0.1 K/uL (0-0.5); Absolute Lymphocytes (CBC) 1.1 K/uL (0.7-4.9); Absolute Monocytes 0.9 K/uL (0.1-1.3); Absolute Neutrophil 5.5 K/uL (1.8-8.0); Basophils % 0.7 % (0-1.3); Eosinophils % 0.9 % (0-4.4); Hematocrit 34.4 % (36.0-45.0); Hemoglobin 12.2 g/dL (12.0-15.0); Lymphocytes % 14.6 % (15.3-44.8); MCHC 35.4 g/dL (32.0-36.0); MCV 96.1 fL (80-100); MPV 7.6 fL (7.6-11.3); Monocytes % 12.4 % (3.3-12.3); Neutrophils % 71.4 % (41.7-73.7); Nucleated Red Blood Cells % 0.1 % (0-0); Platelets 177 thou/uL (152-406); RBC Red Blood Cell Count 3.58 M/uL (3.86-4.86); Red Cell Distribution Width 13.3 % (12.1-15.2)
--- NOTE | 2024-05-25 05:10 | RAD REPORT ---
PROCEDURE: CT Left Lower Extremity Without Intravenous Contrast, Knee CLINICAL INDICATION: The patient is 63 years old and is Female; pain TECHNIQUE: Axial computed tomography images of the left knee without intravenous contrast. Sagittal and jean l reformatted images were created and reviewed. This CT exam was performed using one or more of the following dose reduction techniques: automated exposure control, adjustment of the mA and/or kV according to patient size, and/or use of iterative reconstruction technique. COMPARISON: 05/25/2024 left knee radiographs. FINDINGS: BONES/JOINTS: Thin curvilinear sclerotic changes demonstrated within the subcortical left lateral t ibial plateau with subtle cortical lucency demonstrated along the lateral margin of the lateral margin of the intercondylar tubercle, with subtle depressed appearance of the left lateral tibial tawny teau and cortical irregularity and buckled appearance along the posterior margin of the lateral plateau, compatible with a type III lateral left tibial plateau compression fracture. Trace left knee joint effusion. No subluxation or dislocation. No periosteal reaction. No suspicious lytic or blastic bone lesion. SOFT TISSUES: Unremarkable IMPRESSION: Subtle type III left lateral tibial plateau compression fracture. Electronically signed by: Humberto Stephens MD 05/25/2024 04:57 AM CDT RP Due to temporary technical issues with the [employer]ACS/[employer] reporting system, reports are being jaci d by the in-house radiologist without review as a courtesy to ensure prompt reporting the interpreting radiologist is fully responsible for the content of the report. Transcribed Date/Time: 05/25/2024 5:10 AM
--- NOTE | 2024-05-25 05:24 | EDPHYS ---
Physician Documentation [facility] Name: Jennifer Petty Age: 63 yrs Sex: Female : 1960 Arrival Date: 05/24/2024 Time: 23:17 Bed 25 Private MD: HARITHA Physician Segundo Montero HPI: 05/25 02:20 This 63 yrs old Female presents to ER via EMS with complaints of Pain. kiya 02:20 The patient presents with decreased range of motion, pain, that is acute. The kiya complaints affect the left knee. Context: resulted from the patient falling, the patient can partially bear weight, must have assistance, Problem is a result from a previous injury: No. Modifying factors: The symptoms are alleviated by elevating leg, remaining still, the symptoms are aggravated by movement, weight bearing, bending knee. Associated signs and symptoms: The patient has no apparent associated signs or symptoms. Details of fall: The patient fell from an upright position, while standing, while walking. Onset: The symptoms/episode began/occurred 3 day(s) ago. Treatment prior to arrival includes: no previous treatment. Historical: - Allergies: 05/24 23:24 Adhesives; iw 23:24 Cymbalta; iw 23:24 Depakote; iw 23:24 Ciprofloxacin; iw 23:24 iodine I 131 Tosutumomab; iw 23:24 Losartan; iw 23:24 Midrin; iw 23:24 Morphine; iw 23:24 Robaxin; iw 23:24 Septra; iw 23:24 Sinografin; iw 23:24 topiramate; iw 23:24 Lisinopril; iw 23:24 Toradol; iw 23:24 tramadol; iw 23:24 GABAPENTIN; iw 23:24 Macrobid; iw 23:24 Baclofen; iw - PMHx: 23:24 CVA; epilepsy; Anxiety; Allergic rhinitis; Fibromyalgia; Hypercholesterolemia; iw Hypertensive disorder; insomnia; Lupus erythematosus; mood disorder; - Immunization history:: Adult Immunizations unknown. - Infectious Disease History:: Denies. - Family history:: not pertinent, pertinent for. - Social history:: Smoking status: unknown. ROS: 05/25 02:21 Constitutional: Negative for fever, chills, and weight loss, Eyes: Negative for injury, kiya pain, redness, and discharge, ENT: Negative for injury, pain, and discharge, Neck: Negative for injury, pain, and swelling, Cardiovascular: Negative for chest pain, palpitations, and edema, Respiratory: Negative for shortness of breath, cough, wheezing, and pleuritic chest pain, Abdomen/GI: Negative for abdominal pain, nausea, vomiting, diarrhea, and constipation, Back: Negative for injury and pain, : Negative for injury, bleeding, discharge, and swelling, Skin: Negative for injury, rash, and discoloration, Neuro: Negative for headache, weakness, numbness, tingling, and seizure, Psych: Negative for depression, anxiety, suicide ideation, homicidal ideation, and hallucinations, Allergy/Immunology: Negative for hives, rash, and allergies, Endocrine: Negative for neck swelling, polydipsia, polyuria, polyphagia, and marked weight changes, Hematologic/Lymphatic: Negative for swollen nodes, abnormal bleeding, and unusual bruising, MS/extremity: Positive for decreased range of motion, pain, swelling, tenderness, of the right leg and left leg, Exam: 02:21 Constitutional: This is a well developed, well nourished patient who is awake, alert, kiya and in no acute distress. Head/Face: Normocephalic, atraumatic. Eyes: Pupils equal round and reactive to light, extra-ocular motions intact. Lids and lashes normal. Conjunctiva and sclera are non-icteric and not injected. Cornea within normal limits. Periorbital areas with no swelling, redness, or edema. ENT: Nares patent. No nasal discharge, no septal abnormalities noted. Tympanic membranes are normal and external auditory canals are clear. Oropharynx with no redness, swelling, or masses, exudates, or evidence of obstruction, uvula midline. Mucous membranes moist. Neck: Trachea midline, no thyromegaly or masses palpated, and no cervical lymphadenopathy. Supple, full range of motion without nuchal rigidity, or vertebral point tenderness. No Meningismus. Chest/axilla: Normal chest wall appearance and motion. Nontender with no deformity. No lesions are appreciated. Cardiovascular: Regular rate and rhythm with a normal S1 and S2. No gallops, murmurs, or rubs. Normal PMI, no JVD. No pulse deficits. Respiratory: Lungs have equal breath sounds bilaterally, clear to auscultation and percussion. No rales, rhonchi or wheezes noted. No increased work of breathing, no retractions or nasal flaring. Abdomen/GI: Soft, non-tender, with normal bowel sounds. No distension or tympany. No guarding or rebound. No evidence of tenderness throughout. Back: No spinal tenderness. No costovertebral tenderness. Full range of motion. Female : Normal external genitalia. Skin: Warm, dry with normal turgor. Normal color with no rashes, no lesions, and no evidence of cellulitis. Neuro: Awake and alert, GCS 15, oriented to person, place, time, and situation. Cranial nerves II-XII grossly intact. Motor strength 5/5 in all extremities. Sensory grossly intact. Cerebellar exam normal. Normal gait. Psych: Awake, alert, with orientation to person, place and time. Behavior, mood, and affect are within normal limits. 02:21 Musculoskeletal/extremity: ROM: limited active range of motion, limited passive range of motion, limited active range of motion due to pain, limited passive range of motion due to pain, in the left leg, Circulation is intact in all extremities. Pulses: are normal with no appreciated deficits, noted to be 4+ in the bilateral radial, brachial, femoral, popliteal, posterior tibial and and dorsalis pedis arteries., Sensation intact. Compartment Syndrome exam of affected extremity: is normal. Weight bearing: able to fully bear weight, 04:58 ECG was reviewed by the Attending Physician. [facility] Vital Signs: 05/24 23:24 BP 158 / 89; Pulse 69; Resp 18; Pulse Ox 97% on R/A; Pain 10/10; iw 23:29 BP 129 / 83; Pulse 69; Resp 18; Temp 98.1; Pulse Ox 98% on R/A; Weight 87.54 kg; Height iw 5 ft. 9 in. ; 05/25 03:30 BP 126 / 68; Pulse 70; Resp 18; Pulse Ox 99% ; Pain 7/10; rg5 04:30 BP 163 / 62; Pulse 64; Resp 18; Pulse Ox 99% on R/A; Pain 8/10; rg5 05:20 BP 159 / 75; Pulse 70; Resp 18; Pulse Ox 98% on R/A; Pain 7/10; rg5 06:39 BP 135 / 74; Pulse 67; Resp 17; Pulse Ox 99% ; Pain 3/10; rg5 05/24 23:29 Body Mass Index 28.50 (87.54 kg, 175.26 cm) 05/24 23:24 Pain Scale: Adult 05/25 03:30 Pain Scale: Adult rg5 04:30 Pain Scale: Adult rg5 05:20 Pain Scale: Adult rg5 06:39 Pain Scale: Adult rg5 MDM: 05/24 23:54 Medical Screening Exam initiated [facility] 05/25 04:59 Differential diagnosis: closed fracture, contusion, abrasion, tendonitis. Differential kiya diagnosis: contusion, fracture, multiple trauma, sprain, strain. Data reviewed: vital signs, nurses notes, lab test result(s), radiologic studies, plain films. Consideration of Admission/Observation Escalation of care including admission/observation considered. I considered the following discharge prescriptions or medication management in the emergency department Medications were administered in the Emergency Department. See MAR. Independent interpretation of the following test(s) in the Emergency Department CT Scan: My interpretation is ct left knee. Test considered but Not performed: MRI: no mri left knee. Care significantly affected by the following chronic conditions: Hypertension, cva, seizures, anxiety, fibromyalgia, high chlesterol. 05/24 23:57 Order name: CBC with Diff [facility] 05/24 23:57 Order name: CMP [facility] 05/24 23:57 Order name: BNP [facility] 05/24 23:58 Order name: CPK [facility] 05/24 23:58 Order name: Troponin High Sensitivity [facility] 05/24 23:57 Order name: Pelvis XRAY [facility] 05/24 23:57 Order name: US Extremity Venous W Compression Aleksandr [facility] 05/25 02:17 Order name: Femur Left XRAY [facility] 05/25 02:17 Order name: Knee Left 3 View XRAY [facility] 05/25 02:17 Order name: Knee Right 3 View XRAY [facility] 05/25 02:33 Order name: Knee Left Wo Con EDMS 05/24 23:58 Order name: EKG; Complete Time: 23:58 [facility] 05/24 23:58 Order name: EKG - Nurse/Tech; Complete Time: 04:31 [facility] 05/25 02:28 Order name: Knee Immobilizer; Complete Time: 04:31 [facility] EC:58 Rate is 65 beats/min. Rhythm is regular. QRS [place] is Normal. FL interval is normal. QRS kiya interval is normal. QT interval is normal. No Q waves. T waves are Normal. No ST changes noted. Clinical impression: NSR w/ Non-specific ST/T Changes and No evidence of ischemia. Interpreted by me. Reviewed by me. Administered Medications: 04:06 Drug: Hmjtjcjk-Ubsjjkbyoq-Ejugnljua Topical Ointment 1 application Topical once Route: rg5 Topical; Site: wound; 04:07 Drug: Hydrocodone-Acetaminophen PO (7.5 mg-325 mg) 1 tabs PO once Route: PO; rg5 05:38 Follow up: Response: No adverse reaction; Pain is decreased rg5 04:30 Drug: NS 0.9% IV 500 ml 500 ml IV at 1 bolus once; to be given as a bolus over 30 rg5 minutes Volume: 500 ml; Route: IV; Rate: 1 bolus; Site: right forearm; 04:38 Drug: HYDROmorphone IVP 1 mg IVP once Route: IVP; Site: right forearm; rg5 05:39 Follow up: Response: No adverse reaction; Pain is decreased rg5 04:40 Drug: Ondansetron IVP 8 mg IVP once; over 2 minutes Route: IVP; Site: right forearm; rg5 05:39 Follow up: Response: No adverse reaction; Pain is decreased rg5 06:33 Drug: HYDROmorphone IVP 0.5 mg IVP once Route: IVP; Site: right forearm; rg5 06:40 Follow up: Response: No adverse reaction; Pain is decreased rg5 Disposition Summary: 05/25/24 05:23 Transfer Ordered Notes: Transfer Location: [facility] kiya Reason: Higher level of care kiya Condition: Fair kiya Problem: new kiya Symptoms: have improved kiya Accepting Physician: [facility](05/25/24 06:43) rg5 Diagnosis - Fall on same level, unspecified kiya - Pain in left knee - Type 3, TIBIAL PLATEAU kiya Discharge Instructions: - Discharge Summary Sheet kiya - Abrasion kiya - Joint Pain kiya - Arthritis kiya - How to Use a Knee Brace kiya - Musculoskeletal Pain kiya - Acute Knee Pain, Adult kiya - Abrasion, Msgk-cr-Nuyn kiya - Arthritis, Cpxe-ht-Kwgf kiya - Acute Knee Pain, Adult, Ljly-wh-Qfyv kiya - Chronic Knee Pain, Adult kiya Forms: - Medication Reconciliation Form kiya - SBAR form kiya Prescriptions: - Tylenol-Codeine #3 300mg-30mg Oral tablet - take 2 tablets ORAL route every 6 hours As needed; 20 tablet; Refills: 0, kiya Product Selection Permitted Signatures: Dispatcher [employer] EDSegundo Nunez MD MD cha Williams, Irene RN Cooper Peng RN RN rg5 Corrections: (The following items were deleted from the chart) 02:33 02:25 CT LEFT KNEE WO CONTRAST ordered. EDFL EDMS 06:43 05:23 to [facility] kiya rg5
--- NOTE | 2024-05-25 05:24 | ER ---
Nurse's Notes [facility] Name: Jennifer Petty Age: 63 yrs Sex: Female : 1960 Arrival Date: 05/24/2024 Time: 23:17 Bed 25 Private MD: Diagnosis: Fall on same level, unspecified;Pain in left knee-Type 3, TIBIAL PLATEAU Presentation: 05/24 23:22 Chief complaint: EMS states: [place], she has fibromyalgia, neuropathy, she iw fell on Tuesday while walking and since then she has pain from hips to feet 11/16, she says there is swelling, they gave her oxycodone [facility]. Coronavirus screen: At this time, the client does not indicate any symptoms associated with coronavirus-19. Ebola Screen: No symptoms or risks identified at this time. Initial Sepsis Screen: Does the patient meet any 2 criteria? No. Patient's initial sepsis screen is negative. Does the patient have a suspected source of infection? No. Patient's initial sepsis screen is negative. Risk Assessment: Do you want to hurt yourself or someone else? Patient reports no desire to harm self or others. 23:22 Method Of Arrival: EMS: [facility] iw 23:22 Acuity: JOSE ENRIQUE 3 iw 23:24 Onset of symptoms was May 22, 2024. iw 23:30 Chief complaint: Patient states: pt c/o pain in left thigh all the way down. iw Historical: - Allergies: 23:24 Adhesives; iw 23:24 Cymbalta; iw 23:24 Depakote; iw 23:24 Ciprofloxacin; iw 23:24 iodine I 131 Tosutumomab; iw 23:24 Losartan; iw 23:24 Midrin; iw 23:24 Morphine; iw 23:24 Robaxin; iw 23:24 Septra; iw 23:24 Sinografin; iw 23:24 topiramate; iw 23:24 Lisinopril; iw 23:24 Toradol; iw 23:24 tramadol; iw 23:24 GABAPENTIN; iw 23:24 Macrobid; iw 23:24 Baclofen; iw - PMHx: 23:24 CVA; epilepsy; Anxiety; Allergic rhinitis; Fibromyalgia; Hypercholesterolemia; iw Hypertensive disorder; insomnia; Lupus erythematosus; mood disorder; - Immunization history:: Adult Immunizations unknown. - Infectious Disease History:: Denies. - Family history:: not pertinent, pertinent for. - Social history:: Smoking status: unknown. Screenin/18 03:30 [facility] ED Fall Risk Assessment (Adult) History of falling in the last 3 months, rg5 including since admission Yes- single mechanical fall (1 pt) Confusion or Disorientation No (0 pts) Intoxicated or Sedated No (0 pts) Impaired Gait Yes (1 pt) Mobility Assist Device Used Yes (1 pt) Altered Elimination No (0 pt) Score/Fall Risk Level 3 or more points = High Risk Oriented to surroundings, Maintained a safe environment, Hourly rounding (assess needs \T\ fall precautionary measures) done. Abuse screen: Denies threats or abuse. Nutritional screening: No deficits noted. Tuberculosis screening: No symptoms or risk factors identified. Assessment: 03:30 General: Appears in no apparent distress. comfortable, Behavior is calm, cooperative, rg5 appropriate for age. Pain: Complains of pain in left leg. Neuro: Level of Consciousness is awake, alert, obeys commands, Oriented to person, place, time, situation. Cardiovascular: Denies chest pain. Respiratory: Airway is patent Trachea midline Respiratory effort is even, unlabored. GI: Abdomen is round non-distended. : No signs and/or symptoms were reported regarding the genitourinary system. EENT: No deficits noted. Derm: Skin is intact, Skin is dry, Skin is normal. Musculoskeletal: Circulation, motion, and sensation intact. Range of motion: limited in left leg. 04:00 Reassessment: No changes from previously documented assessment. Patient and/or family rg5 updated on plan of care and expected duration. Pain level reassessed. Patient is alert, oriented x 3, equal unlabored respirations, skin warm/dry/pink. 05:00 Reassessment: No changes from previously documented assessment. Patient and/or family rg5 updated on plan of care and expected duration. Pain level reassessed. Patient is alert, oriented x 3, equal unlabored respirations, skin warm/dry/pink. 06:00 Reassessment: No changes from previously documented assessment. Patient and/or family rg5 updated on plan of care and expected duration. Pain level reassessed. Patient is alert, oriented x 3, equal unlabored respirations, skin warm/dry/pink. Vital Signs: 05/24 23:24 BP 158 / 89; Pulse 69; Resp 18; Pulse Ox 97% on R/A; Pain 10/10; iw 23:29 BP 129 / 83; Pulse 69; Resp 18; Temp 98.1; Pulse Ox 98% on R/A; Weight 87.54 kg; Height iw 5 ft. 9 in. ; 05/25 03:30 BP 126 / 68; Pulse 70; Resp 18; Pulse Ox 99% ; Pain 7/10; rg5 04:30 BP 163 / 62; Pulse 64; Resp 18; Pulse Ox 99% on R/A; Pain 8/10; rg5 05:20 BP 159 / 75; Pulse 70; Resp 18; Pulse Ox 98% on R/A; Pain 7/10; rg5 06:39 BP 135 / 74; Pulse 67; Resp 17; Pulse Ox 99% ; Pain 3/10; rg5 05/24 23:29 Body Mass Index 28.50 (87.54 kg, 175.26 cm) iw 05/24 23:24 Pain Scale: Adult 05/25 03:30 Pain Scale: Adult rg5 04:30 Pain Scale: Adult rg5 05:20 Pain Scale: Adult rg5 06:39 Pain Scale: Adult rg5 ED Course: 05/24 23:22 Patient arrived in ED. iw 23:24 Triage completed. iw 23:30 Arm band placed on. iw 23:54 Segundo Montero MD is Attending Physician. [facility] 05/25 01:02 US Extremity Venous W Compression Aleksandr In Process Unspecified. EDMS 01:59 Pelvis XRAY In Process Unspecified. EDMS 03:06 Femur Left XRAY In Process Unspecified. EDMS 03:06 Knee Left 3 View XRAY In Process Unspecified. EDMS 03:06 Knee Right 3 View XRAY In Process Unspecified. EDMS 03:21 Knee Left Wo Con In Process Unspecified. EDMS 03:30 Patient has correct armband on for positive identification. Door closed. Noise rg5 minimized. 03:30 No provider procedures requiring assistance completed. rg5 03:31 Cooper Sanders, AYLIN is Primary Nurse. rg5 04:37 Inserted saline lock: 22 gauge in right forearm, using aseptic technique. Blood oe collected. Flushed with 10 mL NS. 06:43 Provided Education on: needs for transfer. rg5 06:43 Patient transferred, IV remains in place. intact, No redness/swelling at site. rg5 Administered Medications: 04:06 Drug: Nwajyvtb-Cqdbapapkg-Fcumgpwmb Topical Ointment 1 application Topical once Route: rg5 Topical; Site: wound; 04:07 Drug: Hydrocodone-Acetaminophen PO (7.5 mg-325 mg) 1 tabs PO once Route: PO; rg5 05:38 Follow up: Response: No adverse reaction; Pain is decreased rg5 04:30 Drug: NS 0.9% IV 500 ml 500 ml IV at 1 bolus once; to be given as a bolus over 30 rg5 minutes Volume: 500 ml; Route: IV; Rate: 1 bolus; Site: right forearm; 04:38 Drug: HYDROmorphone IVP 1 mg IVP once Route: IVP; Site: right forearm; rg5 05:39 Follow up: Response: No adverse reaction; Pain is decreased rg5 04:40 Drug: Ondansetron IVP 8 mg IVP once; over 2 minutes Route: IVP; Site: right forearm; rg5 05:39 Follow up: Response: No adverse reaction; Pain is decreased rg5 06:33 Drug: HYDROmorphone IVP 0.5 mg IVP once Route: IVP; Site: right forearm; rg5 06:40 Follow up: Response: No adverse reaction; Pain is decreased rg5 Medication: 03:30 VIS not applicable for this client. rg5 Outcome: 05:23 ER care complete, transfer ordered by MD. huertas 06:43 Transferred by ground EMS to [facility], rg5 06:43 Condition: stable 06:43 Patient left the ED. rg5 Signatures: Dispatcher [employer] EDMS Segundo Montero MD MD cha Williams, Irene, RN RN Renard Rose Rommel, RN RN rg5 Corrections: (The following items were deleted from the chart) 05/24 23:30 23:29 Resp 18bpm; Pulse Ox 98% RA; Temp 98.1F; 87.54 kg; Height 5 ft. 9 in.; BMI: 28.5; iw viola
--- NOTE | 2024-05-25 05:35 | RAD REPORT ---
EXAM: XR Pelvis, 1 or 2 Views CLINICAL HISTORY: The patient is 63 years old and is Female; Pain. TECHNIQUE: Single frontal view of the pelvis. COMPARISON: CT Abdomen Pelvis 03/14/2024 - report only. FINDINGS: Bones/joints: No significant arthropathy in the hips. No acute fracture. No dislocation. Soft tissues: Unremarkable. Gastrointestinal tract: Moderate stool in the visualized colon. IMPRESSION: No acute findings in the pelvis. Electronically signed by: Brynn Bailey MD 05/25/2024 04:07 AM CDT RP V2 Due to temporary technical issues with the PACS/[employer] reporting system, reports are being jaci d by the in-house radiologist without review as a courtesy to ensure prompt reporting the interpreting radiologist is fully responsible for the content of the report. Transcribed Date/Time: 05/25/2024 5:35 AM
--- NOTE | 2024-05-25 05:35 | RAD REPORT ---
PROCEDURE: XR Left Femur, 2 Views CLINICAL INDICATION: The patient is 63 years old and is Female; PAIN Bed Name: IW3 TECHNIQUE: Frontal and lateral views of the proximal and distal left femur. COMPARISON: 05/25/2024 left knee radiographs, left knee CT without contrast FINDINGS: BONES/JOINTS: Subtle curvilinear sclerotic lines demonstrated in the subcortical left lateral tibial plateau, only readily appreciable on lateral view. No suspicious lytic or blastic bone lesions. No subluxation or dislocation. SOFT TISSUES: Unremarkable IMPRESSION: 1. Subtle curvilinear sclerotic lines demonstrated in the subcortical left lateral tibial plateau, only readily appreciable on lateral view, consistent with subtle type III left lateral tibial plateau compression fracture, best seen on reference CT exam. 2. No acute findings in the left femur. Electronically signed by: Humberto Stephens MD 05/25/2024 04:59 AM CDT RP Due to temporary technical issues with the PACS/[employer] reporting system, reports are being jaci d by the in-house radiologist without review as a courtesy to ensure prompt reporting the interpreting radiologist is fully responsible for the content of the report. Transcribed Date/Time: 05/25/2024 5:35 AM
--- NOTE | 2024-05-25 05:36 | RAD REPORT ---
ADDENDUM #1 Addendum: In hindsight, there is a subtle cortical lucency along the lateral margin of the lateral ti bial intercondylar tubercle, previously thought to be a vascular channel, with subtle subcortical transverse sclerotic lines in the left lateral tibial plateau which are better appreciated on same-da y left femur radiographs and follow-up left knee CT. Findings are consistent with subtle type III left lateral tibial plateau compression fracture. Electronically signed by: Humberto Stephens MD 05/25/2024 05:02 AM [employer] End of Addendum PROCEDURE: XR Left Knee, 3 Views CLINICAL INDICATION: The patient is 63 years old and is Female; PAIN Bed Name: IW3 TECHNIQUE: Three views of the left knee. COMPARISON: No relevant prior studies available. FINDINGS: BONES/JOINTS: No acute fracture. No suspicious lytic or blastic bone lesions. No subluxation or dis location. SOFT TISSUES: Unremarkable IMPRESSION: No acute findings in the left knee. Electronically signed by: Humberto Stephens MD 05/25/2024 04:52 AM [employer] [facility] Due to temporary technical issues with the PACS/[employer] reporting system, reports are being jaci d by the in-house radiologist without review as a courtesy to ensure prompt reporting the interpreting radiologist is fully responsible for the content of the report. Transcribed Date/Time: 05/25/2024 5:36 AM
--- NOTE | 2024-05-25 05:36 | RAD REPORT ---
PROCEDURE: XR Right Knee, 3 Views CLINICAL INDICATION: The patient is 63 years old and is Female; PAIN Bed Name: IW3 TECHNIQUE: Three views of the right knee. COMPARISON: 05/25/2024 left knee radiographs FINDINGS: BONES/JOINTS: No acute fracture. No suspicious lytic or blastic bone lesions. No subluxation or dis location. SOFT TISSUES: Unremarkable IMPRESSION: No acute findings in the right knee. Electronically signed by: Humberto Stephens MD 05/25/2024 05:00 AM CDT RP Due to temporary technical issues with the PACS/[employer] reporting system, reports are being jaci d by the in-house radiologist without review as a courtesy to ensure prompt reporting the interpreting radiologist is fully responsible for the content of the report. Transcribed Date/Time: 05/25/2024 5:36 AM
[2024-05-25 06:06] LABS: Albumin 3.6 g/dL (3.4-5.0); Albumin/Globulin Ratio 1.1 (1.1-1.8); Anion Gap 7.5 mEq/L (5.0-15.0); Bilirubin Total 0.8 mg/dL (0.2-1.0); Globulin 3.4 g/dL (2.3-3.5); Potassium 3.5 mEq/L (3.5-5.1); Troponin High Sensitivity 3.8 pg/mL (<58.9)
[2024-05-25] MEDS ORDERED: HYDROMORPHONE HCL 0.5 MG/0.5 ML INJ ONE (06:30)
[2024-05-25 07:21] VITALS: TEMP 98.1
[2024-05-25 07:36] VITALS: BP 135/74; O2SAT 99
== END 2024-05-25 06:43 | disposition short-term general hospital (02) ==
LOC: ER 23:17
DX: S82.142A Displaced bicondylar fracture of left tibia, initial encounter for closed fracture (principal); W18.30XA Fall on same level, unspecified, initial encounter
CPT/HCPCS: 93005; 85025; 36415; 82550; 84484; 80053; 83880; 73700; 72170; 73562 ×2; 73552; 93970; J1171 ×2; J2405; J7040